=== PATIENT | female | born 1955 | race Caucasian/White ===

== ENCOUNTER 2017-08-02 03:30 | Emergency (ER) | payer MEDICAID, SELFPAY ==
[2017-08-02 03:30] VITALS: BP 120/70; PULSE 70; RESP 20; TEMP 37.2; O2SAT 95; BMI 32.8
--- NOTE | 2017-08-02 03:39 | XR_ITS ---
XR chest 2V HISTORY: ITS.REASON: SOA, COUGH ORDERING PHYSICIAN: Ilir Jeffers MD PATIENT AGE: 62 years COMPARISON: 06/13/2017 FINDINGS: Normal heart size. Bipolar pacemaker is present from left subclavian approach.. The lungs are clear without infiltrates, suspicious nodules, or pleural effusions. No acute bony abnormalities. IMPRESSION: No change with no acute finding
[2017-08-02 04:04] LABS: Basophils # 0.1 K/mm3 (0-0.2); Basophils % 0.9 % (0.1-2.0); Eosinophils # 0.3 K/mm3 (0.0-0.4); Eosinophils % 2.6 % (0.1-12.0); Hematocrit 44.3 % (37.0-47.0); Hemoglobin 14.6 g/dL (12.2-16.2); Lymphocytes # 2.3 K/mm3 (0.7-4.5); Lymphocytes % 24.3 K/mm3 (10-50); Mean Corpuscular HGB Conc 32.9 g/dL (31.8-35.4); Mean Corpuscular Hemoglobin 29.6 pg (27.0-31.2); Mean Platelet Volume 9.5 fl (7.4-10.4); Monocytes # 0.6 K/mm3 (0.1-1.0); Monocytes % 6.2 % (1.7-9.3); Neutrophils # 6.2 K/mm3 (1.8-7.8); Neutrophils % 65.9 % (37.0-80.0); Platelet Count 152 K/mm3 (142-424); Red Blood Count 4.92 M/mm3 (4.20-5.40); Red Cell Distribution Width 13.6 % (11.5-17.5); White Blood Count 9.5 K/mm3 (4.8-10.8)
--- NOTE | 2017-08-02 04:10 | PC.NURSE ---
PATIENT TO XRAY PER WC
[2017-08-02 04:24] LABS: Alanine Aminotransferase 32 U/L (12-78); Albumin Level 3.6 gm/dL (3.4-5.0); Albumin/Globulin Ratio 1.2 (1.1-1.8); Alkaline Phosphatase 113 U/L (46-116); Anion Gap 8.7 mEq/L (5-15); Aspartate Amino Transferase 19 U/L (15-37); Bilirubin,Total 0.2 mg/dL (0.2-1.0); Blood Urea Nitrogen 20 mg/dL (7-18); CKMB Relative Index 0.4 U/L (0-4.0); Calcium 9.2 mg/dL (8.5-10.1); Carbon Dioxide 29 mmol/L (21.0-32.0); Chloride 106 mmol/L (98-107); Creatine Kinase 129 U/L (26-140); Creatine Kinase MB < 0.5 mg/ml (0.0-3.6); Creatinine Clearance Estimated 80 mg/ml (0-300); Creatinine,Serum 1.13 mg/dL (0.55-1.02); Estimated Glomerular Filt Rate 48 ml/min (>60); GFR (African American) 59 ML/MIN (>60); Glucose 152 mg/dL (74-106); Potassium 3.7 mmoL/L (3.5-5.1); Sodium 140 mmol/L (136-145); Total Protein,Serum 6.6 gm/dL (6.4-8.2); Troponin I < 0.02 ng/ml (0.00-0.06)
[2017-08-02 04:28] LABS: Lactic Acid 1.2 mmol/L (0.4-2.0)
--- NOTE | 2017-08-02 05:40 | HMH.EDURI ---
ED Disposition Clinical Impression: Renal insufficiency Acute bronchitis Qualifiers: Bronchitis organism: unspecified organism Qualified Code(s): J20.9 - Acute bronchitis, unspecified Disposition: Home, Self-Care Condition on Discharge: Good Instructions: DI for Cough -- Adult Prescriptions: Benzonatate [Tessalon Perle 100mg Cap] 100 mg PO TID #30 cap levoFLOXacin [Levaquin 500mg tab] 500 mg PO DAILY #7 tab predniSONE [Prednisone 20mg Tab] 20 mg PO DAILY #10 tab Referrals: Ilir Jeffers MD [Primary Care Provider] - Forms: Work/School Release - Critical Care Critical Care Time: No Attestation: On 08/02/17, the high probability of a clinically significant, sudden or life threatening deterioration of the following system(s) required my full and direct attention, intervention and personal management. The time I documented below is in addition to time spent performing reported procedures but includes the following listed in this critical care notation. Medical Decision Making - Medical Records Medical records reviewed: Yes: I reviewed the patient's medical records. Vital Signs: 08/02/17 03:30 08/02/17 06:05 Temperature 98.9 F Temperature Source Oral Pulse Rate [Brachial] 70 70 Respiratory Rate 20 16 Blood Pressure [Right Arm] 120/70 106/59 Blood Pressure Mean [Right Arm] 86 74 Blood Pressure Source [Right Arm] Automatic Cuff Manual Cuff/ Doppler Blood Pressure Position [Right Arm] Sitting Sitting 02 Sat by Pulse Oximetry 95 97 Oxygen Delivery Method Room Air Room Air - Lab Data Lab results reviewed: Yes: I reviewed the patient's lab results. Lab Results 08/02/17 03:50: WBC 9.5, RBC 4.92, Hgb 14.6, Hct 44.3, MCV 90.0, MCH 29.6, MCHC 32.9, RDW 13.6, Plt Count 152, MPV 9.5, Neut % (Auto) 65.9, Lymph % (Auto) 24.3, [place] % (Auto) 6.2, Eos % (Auto) 2.6, Baso % (Auto) 0.9, Neut # (Auto) 6.2, Lymph # (Auto) 2.3, [place] # (Auto) 0.6, Eos # (Auto) 0.3, Baso # (Auto) 0.1 08/02/17 03:50: Sodium 140, Potassium 3.7, Chloride 106, Carbon Dioxide 29, Anion Gap 8.7, BUN 20 H, Creatinine 1.13 H, Estimated Creat Clear 80, Estimated GFR 48 L, Est GFR ( Amer) 59, Glucose 152 H, Calcium 9.2, Total Bilirubin 0.2, AST 19, ALT 32, Alkaline Phosphatase 113, Total Creatine Kinase 129, CK-MB (CK-2) < 0.5, CK-MB (CK-2) Rel Index 0.4, Troponin I < 0.02, Total Protein 6.6, Albumin 3.6, Globulin 3.0, Albumin/Globulin Ratio 1.2 08/02/17 03:50: B-Natriuretic Peptide 23 08/02/17 03:50: Influenza Type A Ag Negative, Influenza Type B Ag Negative 08/02/17 03:50: Lactic Acid 1.2 Result diagrams: 08/02/17 03:50 08/02/17 03:50 Orders (Tests/Meds): ED MEDICATIONS Generic Name Dose Route Start Last Admin Trade Name Mannyq PRN Reason Stop Dose Admin Benzonatate 100 mg 08/02/17 06:15 Tessalon Perles 100mg Capsule PO 09/01/17 06:14 ONCE HAJA Ceftriaxone Sodium 1 gm/ 50 mls @ 100 mls/hr 08/02/17 06:07 Sodium Chloride IV 08/02/17 06:36 ONCE ONE Sodium Chloride 10 ml 08/02/17 04:04 Saline Flush 10ml Syringe IV 09/01/17 04:03 NEEDED PRN Maintain IV Site Discontinued Medications Generic Name Dose Route Start Last Admin Trade Name Mannyq PRN Reason Stop Dose Admin Methylprednisolone Sodium Succinate 125 mg 08/02/17 06:08 Solu-Medrol 125mg/2ml Vial IV 08/02/17 06:09 ONCE ONE Ondansetron HCl 4 mg 08/02/17 03:39 08/02/17 04:00 Zofran 4mg/2ml Vial IV 08/02/17 03:40 4 mg ONCE ONE Administration Sodium Chloride 0 ml 08/02/17 03:39 08/02/17 04:00 Sod Chloride 0.9% 1000ml Bag IV 08/02/17 03:40 1,000 ml BOLUS ONE Administration ORDERS Category Date Time Status Blood Culture Stat Micro 08/02/17 03:50 Received - Radiology Data #1 Image Reviewed: Yes I reviewed the patient's radiology results Preliminary Findings: Normal/NAD - Anibal Inquiry Pt receiving controlled substance: No URI/Sore Throat HPI - Genera
--- NOTE | 2017-08-02 05:58 | ED_ITS ---
ED Disposition Clinical Impression: Renal insufficiency Acute bronchitis Qualifiers: Bronchitis organism: unspecified organism Qualified Code(s): J20.9 - Acute bronchitis, unspecified Disposition: Home, Self-Care Condition on Discharge: Good Instructions: DI for Cough -- Adult Prescriptions: Benzonatate [Tessalon Perle 100mg Cap] 100 mg PO TID #30 cap levoFLOXacin [Levaquin 500mg tab] 500 mg PO DAILY #7 tab predniSONE [Prednisone 20mg Tab] 20 mg PO DAILY #10 tab Referrals: Ilir Jeffers MD [Primary Care Provider] - Forms: Work/School Release - Critical Care Critical Care Time: No Attestation: On 08/02/17, the high probability of a clinically significant, sudden or life threatening deterioration of the following system(s) required my full and direct attention, intervention and personal management. The time I documented below is in addition to time spent performing reported procedures but includes the following listed in this critical care notation. Medical Decision Making - Medical Records Medical records reviewed: Yes: I reviewed the patient's medical records. Vital Signs: 08/02/17 03:30 08/02/17 06:05 Temperature 98.9 F Temperature Source Oral Pulse Rate [Brachial] 70 70 Respiratory Rate 20 16 Blood Pressure [Right Arm] 120/70 106/59 Blood Pressure Mean [Right Arm] 86 74 Blood Pressure Source [Right Arm] Automatic Cuff Manual Cuff/ Doppler Blood Pressure Position [Right Arm] Sitting Sitting 02 Sat by Pulse Oximetry 95 97 Oxygen Delivery Method Room Air Room Air - Lab Data Lab results reviewed: Yes: I reviewed the patient's lab results. Lab Results 08/02/17 03:50: WBC 9.5, RBC 4.92, Hgb 14.6, Hct 44.3, MCV 90.0, MCH 29.6, MCHC 32.9, RDW 13.6, Plt Count 152, MPV 9.5, Neut % (Auto) 65.9, Lymph % (Auto) 24.3 , [place] % (Auto) 6.2, Eos % (Auto) 2.6, Baso % (Auto) 0.9, Neut # (Auto) 6.2, Lymph # (Auto) 2.3, Price # (Auto) 0.6, Eos # (Auto) 0.3, Baso # (Auto) 0.1 08/02/17 03:50: Sodium 140, Potassium 3.7, Chloride 106, Carbon Dioxide 29, Anion Gap 8.7, BUN 20 H, Creatinine 1.13 H, Estimated Creat Clear 80, Estimated GFR 48 L, Est GFR ( Amer) 59, Glucose 152 H, Calcium 9.2, Total Bilirubin 0.2, AST 19, ALT 32, Alkaline Phosphatase 113, Total Creatine Kinase 129, CK-MB (CK-2) < 0.5, CK-MB (CK-2) Rel Index 0.4, Troponin I < 0.02, Total Protein 6.6, Albumin 3.6, Globulin 3.0, Albumin/Globulin Ratio 1.2 08/02/17 03:50: B-Natriuretic Peptide 23 08/02/17 03:50: Influenza Type A Ag Negative, Influenza Type B Ag Negative 08/02/17 03:50: Lactic Acid 1.2 Result diagrams: 08/02/17 03:50 08/02/17 03:50 Orders (Tests/Meds): ED MEDICATIONS Generic Name Dose Route Start Last Admin Trade Name Freq PRN Reason Stop Dose Admin Benzonatate 100 mg 08/02/17 06:15 Tessalon Perles 100mg Capsule PO 09/01/17 06:14 ONCE HAJA Ceftriaxone Sodium 1 gm/ 50 mls @ 100 mls/hr 08/02/17 06:07 Sodium Chloride IV 08/02/17 06:36 ONCE ONE Sodium Chloride 10 ml 08/02/17 04:04 Saline Flush 10ml Syringe IV 09/01/17 04:03 NEEDED PRN Maintain IV Site Discontinued Medications Generic Name Dose Route Start Last Admin Trade Name Freq PRN Reason Stop Dose Admin Methylprednisolone Sodium Succinate 125 mg 08/02/17 06:08 Solu-Medrol 125mg/2ml Vial IV
[2017-08-02 06:05] VITALS: BP 106/59; PULSE 70; RESP 16; O2SAT 97
[2017-08-02 07:21] VITALS: BP 144/69; PULSE 82; RESP 18; O2SAT 98
== END 2017-08-02 07:24 | disposition home or self-care (01) ==
PROVIDERS: Emergency Provider Emergency Medicine; Family Provider Emergency Medicine; PCP Emergency Medicine
DX: J20.9 Acute bronchitis, unspecified (principal); N28.9 Disorder of kidney and ureter, unspecified; Z95.0 Presence of cardiac pacemaker; F17.210 Nicotine dependence, cigarettes, uncomplicated; Z88.0 Allergy status to penicillin; Z88.2 Allergy status to sulfonamides; Z79.82 Long term (current) use of aspirin
CPT/HCPCS: 71046; 80053; 82550; 82553; 83605; 83880; 84484; 85025; 87040; 87275; 87276; 96367; 96374; 96375; 99283; J2405

== ENCOUNTER 2017-08-25 11:51 | Emergency (ER) | payer MEDICAID, SELFPAY ==
[2017-08-25 12:24] VITALS: BP 127/72; PULSE 70; RESP 16; TEMP 36.9; O2SAT 94; BMI 32.8
--- NOTE | 2017-08-25 12:32 | HMH.EDUTC ---
[facility] [place] Disposition Clinical Impression: Upper respiratory infection Qualifiers: URI type: unspecified URI Qualified Code(s): J06.9 - Acute upper respiratory infection, unspecified Disposition: Home, Self-Care Condition on Discharge: Good Instructions: Sore Throat, DI for Cough -- Adult, DI for Fever (Symptom) -- Adult Additional Instructions: Take medication as prescribed Follow up with family doctor If you began to have trouble breathing go straight to ER Return if needed Vaporizer or Humidifier to help with breathing Continue to use Nebulizer as prescribed Prescriptions: Albuterol Sulfate [Albuterol HFA Inhaler] 1 - 2 puffs IH Q4-6H PRN #1 inh PRN Reason: Shortness Of Breath Or Wheezing Azithromycin [Z-Ambrose 250mg Tab] 250 mg PO UD DOSE PK #6 tab Benzonatate [Tessalon Perle 100mg Cap] 100 mg PO TID #18 cap predniSONE [Prednisone 20mg Tab] 20 mg PO BID #10 tab Referrals: Ilir Jeffers MD [Primary Care Provider] - Time of Disposition: 13:32 Medical Decision Making - Medical Records Medical records reviewed: Yes: I reviewed the patient's medical records. Vital Signs: 08/25/17 12:24 Temperature 98.4 F Temperature Source Temporal Artery Scan Pulse Rate [Right Brachial] 70 Respiratory Rate 16 Blood Pressure [Right Arm] 127/72 Blood Pressure Mean [Right Arm] 90 Blood Pressure Source [Right Arm] Automatic Cuff Blood Pressure Position [Right Arm] Sitting 02 Sat by Pulse Oximetry 94 L Oxygen Delivery Method Room Air - Lab Data Lab Results 08/25/17 12:23: Influenza Type A Ag Negative, Influenza Type B Ag Negative Orders (Tests/Meds): ED MEDICATIONS Discontinued Medications Generic Name Dose Route Start Last Admin Trade Name Freq PRN Reason Stop Dose Admin Albuterol/Ipratropium 3 ml 08/25/17 13:05 Duoneb 3ml Neb IH 08/25/17 13:06 ONCE ONE ORDERS Category Date Time Status Chest XR 2 view (NOT portable) [XR chest 2V] Stat Exams 08/25/17 13:02 Taken - Radiology Data #1 Image(s): Chest Image Reviewed: Yes I reviewed the patient's radiology image w/the ED provider Preliminary Findings: No Infiltrates Seen - Anibal Inquiry Pt receiving controlled substance: No Anibal was queried for this patient: No - Reevaluation(s) Time: 13:03 (Patient state that she usually uses a nebulizer machine at home but hers tore up so she needs to have another one. Consulted with ER physican Dr Juarez and agreed on treatment and discharge) [facility] [place] HPI - General Stated complaint: aches,nausea,weak Mode of Arrival: Ambulatory Source of Information: Patient Limitations: No Limitations Description of Symptoms (Recalled from Triage Doc. by RN): C/O flu-like symptons since HEENT Symptoms (Recalled from RN notes): No Resp Symptoms (Recalled from RN notes): Yes (Flu-like symptoms) Skin Symptoms (Recalled from RN notes): No MS Symptoms (Recalled from RN notes): No Functional Status (Recalled from RN notes): N/A - History of Present Illness Provider Complaint: Patient complaining of flu like symptoms for the last 2 days States that she is having body aches, chills, fever and not feeling well State that she has not got any better and has continued to feel worse. State that she wanted to come in and get checked out - Related Data Previous Rx's Medication Instructions Recorded Benzonatate [Tessalon Perle 100mg 100 mg PO TID #30 cap 08/02/17 Cap] levoFLOXacin [Levaquin 500mg 500 mg PO DAILY #7 tab 08/02/17 tab] predniSONE [Prednisone 20mg 20 mg PO DAILY #10 tab 08/02/17 Tab] Albuterol Sulfate [Albuterol HFA 1 - 2 puffs IH Q4-6H PRN #1 inh 08/25/17 Inhaler] Azithromycin [Z-Ambrose 250mg Tab] 250 mg PO UD DOSE PK #6 tab 08/25/17 Benzonatate [Tessalon Perle 100mg 100 mg PO TID #18 cap 08/25/17 Cap] predniSONE [Prednisone 20mg 20 mg PO BID #10 tab 08/25/17 Tab] Allergies Allergy/AdvReac Type Severity Reaction Status Date / Time Iod
[2017-08-25 12:48] LABS: UTC Influenza A Antigen Negative (Negative); UTC Influenza B Antigen Negative (Negative)
--- NOTE | 2017-08-25 13:02 | XR_ITS ---
XR chest 2V HISTORY: Cough and congestion ITS.REASON: congestion ORDERING PHYSICIAN: Key Loco PATIENT AGE: 62 years COMPARISON: 08/02/2017 FINDINGS: The cardiomediastinal silhouette and pulmonary vascularity are within normal limits. Bipolar pacemaker remains in place. There is chronic coarsening of the bronchovascular markings The lungs are clear without infiltrates, suspicious nodules, or pleural effusions. No acute bony abnormalities. IMPRESSION: No change with no acute finding. Pacemaker remains in place. Chronic coarsening of the bronchovascular markings which may be seen with chronic peribronchial inflammatory change
--- NOTE | 2017-08-25 13:21 | PC.NURSE ---
RT at bedside administering DuoNeb at this time.
[2017-08-25 13:56] VITALS: BP 127/72; PULSE 70; RESP 16; TEMP 36.9; O2SAT 94
== END 2017-08-25 13:58 | disposition home or self-care (01) ==
PROVIDERS: Emergency Provider Nurse Practitioner; Family Provider Emergency Medicine; PCP Emergency Medicine
DX: J06.9 Acute upper respiratory infection, unspecified (principal); Z95.0 Presence of cardiac pacemaker; F17.210 Nicotine dependence, cigarettes, uncomplicated
CPT/HCPCS: 71046; 87804; 99202; 99281

== ENCOUNTER 2017-08-26 00:48 | Observation (INO) | payer MEDICAID, SELFPAY ==
[2017-08-26] VITALS (7 sets, daily range): BP systolic 115–132; BP diastolic 54–88; PULSE 70–78; RESP 20–22; TEMP 36.7–36.9; O2SAT 92–97; BMI 32.8; BMI 32.5
--- NOTE | 2017-08-26 01:26 | HMH.EDSOB ---
ED Disposition Clinical Impression: Acute exacerbation of chronic obstructive airways disease Disposition: Admitted as Observation Condition on Discharge: Good Referrals: Ilir Jeffers MD [Primary Care Provider] - - Critical Care Critical Care Time: No Attestation: On 08/26/17, the high probability of a clinically significant, sudden or life threatening deterioration of the following system(s) required my full and direct attention, intervention and personal management. The time I documented below is in addition to time spent performing reported procedures but includes the following listed in this critical care notation. Medical Decision Making - Medical Records Medical records reviewed: Yes: I reviewed the patient's medical records. Vital Signs: 08/26/17 00:50 Temperature 98.5 F Temperature Source Oral Pulse Rate [Right Brachial] 70 Respiratory Rate 20 Blood Pressure [Right Arm] 132/88 Blood Pressure Mean [Right Arm] 102 Blood Pressure Source [Right Arm] Automatic Cuff Blood Pressure Position [Right Arm] Sitting 02 Sat by Pulse Oximetry 92 L Oxygen Delivery Method Room Air - Lab Data Lab results reviewed: Yes: I reviewed the patient's lab results. Lab Results 08/26/17 01:20: WBC 10.9 H, RBC 5.04, Hgb 14.7, Hct 45.2, MCV 89.7, MCH 29.3, MCHC 32.6, RDW 13.5, Plt Count 175, MPV 9.6, Neut % (Auto) 83.8 H, Lymph % (Auto) 12.4, [place] % (Auto) 3.5, Eos % (Auto) 0.1, Baso % (Auto) 0.2, Neut # (Auto) 9.1 H, Lymph # (Auto) 1.3, [place] # (Auto) 0.4, Eos # (Auto) 0.0, Baso # (Auto) 0.0 08/26/17 01:20: Sodium 141, Potassium 4.2, Chloride 108 H, Carbon Dioxide 24, Anion Gap 13.2, BUN 16, Creatinine 1.03 H, Estimated Creat Clear 88, Estimated GFR 54 L, Est GFR ( Amer) 65, Glucose 169 H, Calcium 9.0, Total Bilirubin 0.6, AST 21, ALT 40, Alkaline Phosphatase 97, Total Creatine Kinase 96, CK-MB (CK-2) < 0.5, CK-MB (CK-2) Rel Index 0.5, Troponin I < 0.02, Total Protein 6.9, Albumin 3.6, Globulin 3.3 H, Albumin/Globulin Ratio 1.1 08/26/17 01:20: Lactic Acid 2.1 H Result diagrams: 08/26/17 01:20 08/26/17 01:20 Orders (Tests/Meds): ORDERS Category Date Time Status CXR --portable [XR chest portable] Stat Exams 08/26/17 01:31 Taken Diarrhea Panel, PCR Stat Lab 08/26/17 01:31 Ordered Blood Culture Stat Micro 08/26/17 01:20 Received EKG Request [ECG Request by /Davis] Stat Y 08/26/17 01:30 Ordered - Radiology Data #1 Image(s): Chest Image Reviewed: Yes I reviewed the patient's radiology image Preliminary Findings: Abnormal - ECG Data Tracing #1 I reviewed this ECG and interpreted as documented below: Ischemic changes: non-specific ST-T wave changes - Anibal Inquiry Pt receiving controlled substance: No Resp/SOB HPI - General Chief Complaint: Shortness of Breath/Dyspnea Stated Complaint: SOA Time Seen by Provider: 08/26/17 01:27 Mode of Arrival: EMS Source of Information: Patient, EMS, Medical Record Limitations: No Limitations Description of Symptoms (Recalled from ER Triage Doc. 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 and was seen at [facility] and has had gi sx with diarrhea and dec po intake Complaint: shortness of breath, cough Onset (ago): day(s) Severity: moderate Known history of: COPD Treatment prior to arrival: bronchodilator - Related Data Home oxygen amount: 2 liters Previous Rx's Medication Instructions Recorded Benzonatate [Tessalon Perle 100mg 100 mg PO TID #30 cap 08/02/17 Cap] levoFLOXacin [Levaquin 500mg 500 mg PO DAILY #7 tab 08/02/17 tab] predniSONE [Prednisone 20mg 20 mg PO DAILY #10 tab 08/02/17 Tab] Albuterol Sulfate [Albuterol HFA 1 - 2 puffs IH Q4-6H PRN #1 inh 08/25/17 Inhaler] Azithromycin [Z-Ambrose 250mg Tab] 250 mg PO UD DOSE PK #6 tab 08/25/17 Benzonatate [Tessalon Perle 100mg 100 mg PO TID #18 cap 08/25/17 Cap] predniSONE [Prednisone 20mg 2
--- NOTE | 2017-08-26 01:31 | XR_ITS ---
XR chest portable HISTORY: Shortness of air with congestion ITS.REASON: sob ORDERING PHYSICIAN: Ilir Jeffers MD PATIENT AGE: 62 years COMPARISON: 08/25/2017 FINDINGS: Cardiac pacemaker device remains in place. New area of increased density is present in the left lower lung zone in the retrocardiac area and adjacent to the heart consistent with an area of atelectasis and/or infiltrate. There is COPD with chronic change. No evidence of CHF. IMPRESSION: Interval development of atelectasis and/or infiltrate in the left lower lung zone
[2017-08-26 01:37] LABS: Basophils % 0.2 % (0.1-2.0); Eosinophils % 0.1 % (0.1-12.0); Hematocrit 45.2 % (37.0-47.0); Hemoglobin 14.7 g/dL (12.2-16.2); Lymphocytes # 1.3 K/mm3 (0.7-4.5); Lymphocytes % 12.4 K/mm3 (10-50); Mean Corpuscular HGB Conc 32.6 g/dL (31.8-35.4); Mean Corpuscular Hemoglobin 29.3 pg (27.0-31.2); Mean Corpuscular Volume 89.7 fl (81-99); Mean Platelet Volume 9.6 fl (7.4-10.4); Monocytes # 0.4 K/mm3 (0.1-1.0); Monocytes % 3.5 % (1.7-9.3); Neutrophils # 9.1 K/mm3 (1.8-7.8); Neutrophils % 83.8 % (37.0-80.0); Platelet Count 175 K/mm3 (142-424); Red Blood Count 5.04 M/mm3 (4.20-5.40); Red Cell Distribution Width 13.5 % (11.5-17.5); White Blood Count 10.9 K/mm3 (4.8-10.8)
[2017-08-26 01:55] LABS: Lactic Acid 2.1 mmol/L (0.4-2.0)
[2017-08-26 02:11] LABS: Alanine Aminotransferase 40 U/L (12-78); Albumin Level 3.6 gm/dL (3.4-5.0); Albumin/Globulin Ratio 1.1 (1.1-1.8); Alkaline Phosphatase 97 U/L (46-116); Anion Gap 13.2 mEq/L (5-15); Aspartate Amino Transferase 21 U/L (15-37); Bilirubin,Total 0.6 mg/dL (0.2-1.0); Blood Urea Nitrogen 16 mg/dL (7-18); CKMB Relative Index 0.5 U/L (0-4.0); Carbon Dioxide 24 mmol/L (21.0-32.0); Chloride 108 mmol/L (98-107); Creatine Kinase 96 U/L (26-192); Creatine Kinase MB < 0.5 mg/ml (0.0-3.6); Creatinine Clearance Estimated 88 mL/min (0-300); Creatinine,Serum 1.03 mg/dL (0.55-1.02); Estimated Glomerular Filt Rate 54 ml/min (>60); GFR (African American) 65 ML/MIN (>60); Globulin 3.3 gm/dl (1.3-3.2); Glucose 169 mg/dL (74-106); Potassium 4.2 mmoL/L (3.5-5.1); Sodium 141 mmol/L (136-145); Total Protein,Serum 6.9 gm/dL (6.4-8.2); Troponin I < 0.02 ng/ml (0.00-0.06)
[2017-08-26 04:14] LABS: Magnesium 1.7 mg/dL (1.4-2.2)
[2017-08-26 04:50] LABS: Reflex Lactic Add Lactic Reflex
[2017-08-26 05:09] LABS: Lactic Acid Follow Up (RFLX 1) 1.9 (0.4-2.0)
--- NOTE | 2017-08-26 06:08 | PC.NURSE ---
PT NEW ADMIT AROUND 4AM. ALERT/ORIENTED TIMES 3. PT WITH DRY NONPRODUCTIVE COUGH. NO COMPLAINTS OF PAIN. ORIENTED TO ROOM AND CALL LONG. ON 2L PER NC. NO SOB REPORTED.
--- NOTE | 2017-08-26 09:03 | HMH.HP ---
*Admission Date: 08/26/17 *Chief complaint: sob *History of present illness: pt with progressive sob and chest pain with failure to respond to op treatment - pt seen in the ed with diff with breathing and sob - she had no hemoptysis but needed more o2 support-pt was admitted with orders [facility] History I have reviewed the patient's past medical history: Yes Medical History: Reports:: Atherosclerotic Heart Disease, Hyperlipidemia, Hypertension, Internal Pacemaker Denies:: Cancer, Diabetes Mellitus Type 1, Diabetes Mellitus Type 2, MRSA Other Medical History: Reports: Arthritis, Cataracts (surgery to repair) Laterality Cases: Right: Arthroscopy Knee Other Surgeries: Yes: Hysterectomy-Total, Pacemaker, Other (gallbladder, cyst removed form wrist) Amputation: No Fractures: No - *Social History Educational Level: Attended Grade School Smoking Status: Current every day smoker Tobacco Type: cigarettes # Packs/Day (cigarettes): 10 #Yrs smoked (if former smoker): 35 Alcohol Intake: never Occupational Status: disabled Housing: apartment Household Members: none - Psychiatric History Expresses thoughts of harming self/others: None Suicide Plan Description: No Plan *Family Hx:: Cancer, Coronary Artery Disease, Diabetes, Hyperlipidemia, Hypertension Review of Systems - Review of Systems Review of systems:: pertinent systems reviewed and negative unless documented below - Constitutional Reports malaise, Denies fever(s) - Eyes Denies change in vision - ENT Denies sore throat - *Cardiovascular Reports chest pain, Reports shortness of breath when lying down - *Respiratory Reports cough, Reports shortness of breath with activity, Reports pain on inspiration, Denies coughing up blood - *Gastrointestinal Denies abdominal pain - *Musculoskeletal Reports joint pain, Denies joint swelling - Integumentary/Breasts Denies rash - *Neurologic Reports dizziness, Denies seizure-like activity, Denies seizure-like activity - Psychiatric Reports anxiety Meds Home Medications Medication Instructions Recorded Confirmed Type Aspirin [Aspir 81] 81 mg PO DAILY 08/26/17 08/26/17 History Atorvastatin Calcium [Atorvastatin 80 mg PO HS 08/26/17 08/26/17 History 80mg Tab] Budesonide/Formoterol Fumarate 6 gm IH DAILY 08/26/17 08/26/17 History [Symbicort 160-4.5 Mcg Inhaler] Furosemide [Lasix 40mg tab] 40 mg PO DAILY 08/26/17 08/26/17 History Gabapentin [Gabapentin 300mg Cap] 600 mg PO TID 08/26/17 08/26/17 History Metoprolol Tartrate [Lopressor 50 mg PO BID 08/26/17 08/26/17 History 50mg tablet] Montelukast Sodium [Montelukast 10 mg PO HS 08/26/17 08/26/17 History 10mg Tab] Omeprazole [Omeprazole 40mg 40 mg PO DAILY 08/26/17 08/26/17 History Capsule] Ropinirole HCl [Requip] 2 mg PO HS 08/26/17 08/26/17 History Spironolactone [Spironolactone 50 mg PO HS 08/26/17 08/26/17 History 50mg Tab] Tizanidine HCl [Zanaflex] 4 mg PO HS 08/26/17 08/26/17 History Allergies Allergy/AdvReac Type Severity Reaction Status Date / Time Iodinated Contrast Media - Allergy Intermediate I-RASH Verified 08/02/17 03:41 Oral and [Iodinated Contrast Media - IV Dye] Penicillins [PENICILLINS] Allergy Unknown I-RASH Verified 08/02/17 03:41 Sulfa (Sulfonamide Allergy Unknown NA-NAUSEA/V Verified 08/02/17 03:41 Antibiotics) OMITING [SULFA (SULFONAMIDE ANTIBIOTICS)] Exam Vital signs and Labs for Last 24 Hours: Temp Pulse Resp BP Pulse Ox 98.2 F 70 20 115/64 94 L 08/26/17 07:52 08/26/17 07:52 08/26/17 07:52 08/26/17 07:52 08/26/17 07:52 Laboratory Results - last 24 hr 08/26/17 04:45: Lactic Acid Fup @ 4Hr 1.9 I & O for Last 24 hours: Intake & Output 08/23/17 08/24/17 08/25/17 08/26/17 11:59 11:59 11:59 11:59 Intake Total 146 / 146 Balance 146 / 146 Weight 220 lb 10.923 oz - Constitutional no acute distress - *Routine HEENT Exam Head: Presen
--- NOTE | 2017-08-26 09:07 | P.HP_ITS ---
*Admission Date: 08/26/17 *Chief complaint: sob *History of present illness: pt with progressive sob and chest pain with failure to respond to op treatment - pt seen in the ed with diff with breathing and sob - she had no hemoptysis but needed more o2 support-pt was admitted with orders [facility] History I have reviewed the patient's past medical history: Yes Medical History: Reports:: Atherosclerotic Heart Disease, Hyperlipidemia, Hypertension, Internal Pacemaker Denies:: Cancer, Diabetes Mellitus Type 1, Diabetes Mellitus Type 2, MRSA Other Medical History: Reports: Arthritis, Cataracts (surgery to repair) Laterality Cases: Right: Arthroscopy Knee Other Surgeries: Yes: Hysterectomy-Total, Pacemaker, Other (gallbladder, cyst removed form wrist) Amputation: No Fractures: No - *Social History Educational Level: Attended Grade School Smoking Status: Current every day smoker Tobacco Type: cigarettes # Packs/Day (cigarettes): 10 #Yrs smoked (if former smoker): 35 Alcohol Intake: never Occupational Status: disabled Housing: apartment Household Members: none - Psychiatric History Expresses thoughts of harming self/others: None Suicide Plan Description: No Plan *Family Hx:: Cancer, Coronary Artery Disease, Diabetes, Hyperlipidemia, Hypertension Review of Systems - Review of Systems Review of systems:: pertinent systems reviewed and negative unless documented below - Constitutional Reports malaise, Denies fever(s) - Eyes Denies change in vision - ENT Denies sore throat - *Cardiovascular Reports chest pain, Reports shortness of breath when lying down - *Respiratory Reports cough, Reports shortness of breath with activity, Reports pain on inspiration, Denies coughing up blood - *Gastrointestinal Denies abdominal pain - *Musculoskeletal Reports joint pain, Denies joint swelling - Integumentary/Breasts Denies rash - *Neurologic Reports dizziness, Denies seizure-like activity, Denies seizure-like activity - Psychiatric Reports anxiety Meds Home Medications Medication Instructions Recorded Confirmed Type Aspirin [Aspir 81] 81 mg PO DAILY 08/26/17 08/26/17 History Atorvastatin Calcium [Atorvastatin 80 mg PO HS 08/26/17 08/26/17 History 80mg Tab] Budesonide/Formoterol Fumarate 6 gm IH DAILY 08/26/17 08/26/17 History [Symbicort 160-4.5 Mcg Inhaler] Furosemide [Lasix 40mg tab] 40 mg PO DAILY 08/26/17 08/26/17 History Gabapentin [Gabapentin 300mg Cap] 600 mg PO TID 08/26/17 08/26/17 History Metoprolol Tartrate [Lopressor 50 mg PO BID 08/26/17 08/26/17 History 50mg tablet] Montelukast Sodium [Montelukast 10 mg PO HS 08/26/17 08/26/17 History 10mg Tab] Omeprazole [Omeprazole 40mg 40 mg PO DAILY 08/26/17 08/26/17 History Capsule] Ropinirole HCl [Requip] 2 mg PO HS 08/26/17 08/26/17 History Spironolactone [Spironolactone 50 mg PO HS 08/26/17 08/26/17 History 50mg Tab] Tizanidine HCl [Zanaflex] 4 mg PO HS 08/26/17 08/26/17 History Allergies Allergy/AdvReac Type Severity Reaction Status Date / Time Iodinated Contrast Media - Allergy Intermediate I-RASH Verified 08/02/17 03:41 Oral and [Iodinated Contrast Media - IV Dye] Penicillins [PENICILLINS] Allergy Unknown I-RASH Verified 08/02/17 03:41 Sulfa (Sulfonamide Allergy Unknown NA-NAUSEA/V Verified 08/02/17 03:41 Antibiotics
--- NOTE | 2017-08-26 10:51 | HMH.PHAVTE ---
[facility] Pharmacy VTE Monitoring - Patient Demographics Admission date: 08/26/17 Report Date: 08/26/17 Time: 10:51 Allergies/Adverse Reactions: Patient Allergies Iodinated Contrast Media - Oral and [Iodinated Contrast Media - IV Dye] Allergy (Intermediate, Verified 08/02/17 03:41) I-RASH Penicillins [PENICILLINS] Allergy (Unknown, Verified 08/02/17 03:41) I-RASH Sulfa (Sulfonamide Antibiotics) [SULFA (SULFONAMIDE ANTIBIOTICS)] Allergy (Unknown, Verified 08/02/17 03:41) NA-NAUSEA/VOMITING Height: 1.75 m Weight: 100.1 kg Patient Problems: Current Active Problems Acute exacerbation of chronic obstructive airways disease (Acute) - VTE Risk Labs: VTE Related Lab Results Hgb 14.7 g/dL (12.2-16.2) 08/26/17 01:20 Hct 45.2 % (37.0-47.0) 08/26/17 01:20 Plt Count 175 K/mm3 (142-424) 08/26/17 01:20 BUN 16 mg/dL (7-18) 08/26/17 01:20 Creatinine 1.03 mg/dL (0.55-1.02) H 08/26/17 01:20 Estimated Creat Clear 88 mL/min (0-300) 08/26/17 01:20 VTE Score: 5 VTE Risk Level: Low Risk - Prophylaxis Types of VTE Prophylaxis: TEDS Thigh High (KENDRICK HOSE ORDERED)
--- NOTE | 2017-08-26 15:07 | PC.NURSE ---
PT IS RESTING IN BED, HAS BEEN OUT OF THE ROOM SEVERAL TIMES AND HAS AMBULATED SHORT DISTANCES IN THE CISSE W/O O2, PT HAS COMPLAINED OF SOME DISCOMFORT IN HER BLE. PT HAS TOLERATED KENDRICK HOSE. LUNG SOUNDS HAVE SCATTERED WHEEZES, BOWEL SOUNDS NORMAL. PT IS AWARE WE NEED A STOOL FOR A DIARRHEA PANEL BUT HAS NOT HAD A BOWEL MOVEMENT YET. WILL CONTINUE TO MONITOR.
--- NOTE | 2017-08-26 21:06 | PC.NURSE ---
pt had oxygen off at this time
--- NOTE | 2017-08-26 22:25 | PC.NURSE ---
pt has taken philip hose off for the time being
[2017-08-27 04:04] VITALS: BP 133/67; PULSE 69; RESP 18; TEMP 36.4; O2SAT 98
--- NOTE | 2017-08-27 05:08 | PC.NURSE ---
PT HAS SLEPT. NO COMPLAINTS. WEARING OXYGEN AT 2L NEEDED. CONTINUES TO HAVE WHEEZING THROUGHOUT.
--- NOTE | 2017-08-27 05:26 | PC.NURSE ---
philip hose remain off at this time
[2017-08-27 05:55] VITALS: PULSE 73; PULSE 74; O2SAT 98
[2017-08-27 07:20] VITALS: BP 109/59; PULSE 70; RESP 20; TEMP 36.9; O2SAT 95
[2017-08-27 08:00] VITALS: O2SAT 95
--- NOTE | 2017-08-27 10:15 | SW/DCPLANNER ---
RECEIVED REFERRAL FOR THIS PATIENT FOR A NEBULIZER: I SENT ORDERS AND PATIENT INFORMATION TO [facility] FOR THE NEUBLIZER TO BE DELIVERED TO THE PATIENTS HOME TODAY... PATIENT WILL DISCHARGE LATER THIS MORNING:
[2017-08-27 11:12] VITALS: PULSE 70; PULSE 74
--- NOTE | 2017-08-27 13:22 | HMH.DCSUM ---
General - General Admission date: 08/26/17 Discharge date: 08/27/17 HPI HPI: pt with progressive sob and chest pain with failure to respond to op treatment - pt seen in the ed with diff with breathing and sob - she had no hemoptysis but needed more o2 support-pt was admitted with orders Objective Vital signs: Temp Pulse Resp BP Pulse Ox 98.4 F 74 20 109/59 95 08/27/17 07:20 08/27/17 11:12 08/27/17 07:20 08/27/17 07:20 08/27/17 08:00 no acute distress - *Routine HEENT Exam Head: Present: normocephalic Eye: Present: EOMI, PERRL ENT: Present: mucous membranes moist - *Routine Neck Exam Present: supple, full ROM - *Routine Respiratory Exam Present: wheezes. Absent: accessory muscle use - *Routine Cardiovascular Exam Present: RRR. Absent: murmur - *Routine Abdominal Exam Present: soft - *Routine Extremities Exam Present: full ROM, normal capillary refill. Absent: clubbing - Routine Back/Spine/Pelvis Exam Back/Spine: Present: full ROM, CVA tenderness - *Routine Skin Exam Present: intact - *Routine Neurological Exam Present: alert, oriented X3 - Routine Psychiatric Exam Present: normal affect, normal thought process Hospital Course Hospital Course: chest x ray:MPRESSION: Interval development of atelectasis and/or infiltrate in the left lower lung zone Patient states she feels better today. Will discharge home follow up in the office in 1 week continue Zithromax that she got prior to admission patient will need nebulizer for wheezing related to her COPD. DS: Diagnosis - Discharge Diagnosis (1) Acute exacerbation of chronic obstructive airways disease Status: Acute Meds Home Medications Medication Instructions Recorded Confirmed Type Aspirin [Aspir 81] 81 mg PO DAILY 08/26/17 08/26/17 History Atorvastatin Calcium [Atorvastatin 80 mg PO HS 08/26/17 08/26/17 History 80mg Tab] Budesonide/Formoterol Fumarate 2 puffs IH DAILY 08/26/17 08/26/17 History [Symbicort 160-4.5 Mcg Inhaler] Furosemide [Lasix 40mg tab] 40 mg PO DAILY 08/26/17 08/26/17 History Gabapentin [Gabapentin 300mg Cap] 600 mg PO TID 08/26/17 08/26/17 History Losartan Potassium 50 mg PO DAILY 08/26/17 08/26/17 History Metoprolol Tartrate [Lopressor 50 mg PO BID 08/26/17 08/26/17 History 50mg tablet] Montelukast Sodium [Montelukast 10 mg PO HS 08/26/17 08/26/17 History 10mg Tab] Omeprazole [Omeprazole 40mg 40 mg PO DAILY 08/26/17 08/26/17 History Capsule] Ropinirole HCl [Requip] 2 mg PO HS 08/26/17 08/26/17 History Spironolactone [Spironolactone 50 mg PO HS 08/26/17 08/26/17 History 50mg Tab] Tizanidine HCl [Zanaflex] 4 mg PO HS 08/26/17 08/26/17 History buPROPion HCl [Bupropion HCl Sr] 150 mg PO BID 08/26/17 08/26/17 History Allergies Allergy/AdvReac Type Severity Reaction Status Date / Time Iodinated Contrast Media - Allergy Intermediate I-RASH Verified 08/02/17 03:41 Oral and [Iodinated Contrast Media - IV Dye] Penicillins [PENICILLINS] Allergy Unknown I-RASH Verified 08/02/17 03:41 Sulfa (Sulfonamide Allergy Unknown NA-NAUSEA/V Verified 08/02/17 03:41 Antibiotics) OMITING [SULFA (SULFONAMIDE ANTIBIOTICS)] Discharge Plan - Patient Discharge Instructions ACTIVITY: Continue current activity DIET: continue same diet Additional Instructions: Nebulizer twice daily as needed for shortness of breath Follow-up with primary care this week Patient Instructions: Chronic Obstructive Pulmonary Disease, DI for Chronic Obstructive Pulmonary Disease, DI for Acute Bronchitis - Follow up Plan Follow up with: Ilir Jeffers MD [Primary Care Provider] - 1 week Disposition: Home, Self-Fpc Medications: Home Medications Medication Instructions Recorded Confirmed Type Aspirin [Aspir 81] 81 mg PO DAILY 08/26/17 08/26/17 History Atorvastatin Calcium [Atorvastatin 80 mg PO HS 08/26/17 08/26/17 History 80mg Tab] Bu
== END 2017-08-27 14:25 | disposition home or self-care (01) ==
LOC: ER 03:22 → 2ND 03:26
PROVIDERS: Admitting Provider Emergency Medicine; Emergency Provider Emergency Medicine; Family Provider Emergency Medicine; PCP Emergency Medicine; Visit Provider Emergency Medicine
DX: J44.1 Chronic obstructive pulmonary disease with (acute) exacerbation (principal); F17.210 Nicotine dependence, cigarettes, uncomplicated; I25.10 Atherosclerotic heart disease of native coronary artery without angina pectoris; I10 Essential (primary) hypertension; E78.5 Hyperlipidemia, unspecified; Z90.710 Acquired absence of both cervix and uterus; Z80.9 Family history of malignant neoplasm, unspecified; Z82.49 Family history of ischemic heart disease and other diseases of the circulatory system; Z83.3 Family history of diabetes mellitus; Z83.49 Family history of other endocrine, nutritional and metabolic diseases; Z79.82 Long term (current) use of aspirin; Z79.899 Other long term (current) drug therapy; Z88.0 Allergy status to penicillin; Z88.2 Allergy status to sulfonamides; Z91.041 Radiographic dye allergy status; Z95.0 Presence of cardiac pacemaker
CPT/HCPCS: 36415; 71045; 80053; 82550; 82553; 83605; 83735; 84484; 85025; 87040; 87070; 87205; 93005; 94640; 94761; 99282; G0378; J0456

== ENCOUNTER 2017-09-14 15:33 | Emergency (ER) | payer MEDICAID, SELFPAY ==
[2017-09-14 15:38] VITALS: BP 161/102; PULSE 74; RESP 24; TEMP 36.8; O2SAT 96; BMI 33.3
--- NOTE | 2017-09-14 15:52 | XR_ITS ---
XR chest 2V HISTORY: ITS.REASON: cough ORDERING PHYSICIAN: Altaf Paulson MD PATIENT AGE: 62 years COMPARISON: 08/26/2017 FINDINGS: Cardiac pacemaker device remains in place. Normal heart size. No lobar consolidation or collapse. Mild degenerative changes are present in the thoracic spine. IMPRESSION: Left lower lobe atelectasis has improved. No acute finding
[2017-09-14 16:03] VITALS: PULSE 78; PULSE 86
[2017-09-14 16:11] LABS: Basophils # 0.1 K/mm3 (0-0.2); Basophils % 0.7 % (0.1-2.0); Eosinophils # 0.2 K/mm3 (0.0-0.4); Eosinophils % 2.2 % (0.1-12.0); Hematocrit 43.5 % (37.0-47.0); Hemoglobin 14.3 g/dL (12.2-16.2); Lymphocytes # 1.7 K/mm3 (0.7-4.5); Lymphocytes % 16.1 K/mm3 (10-50); Mean Corpuscular HGB Conc 32.8 g/dL (31.8-35.4); Mean Corpuscular Hemoglobin 29.4 pg (27.0-31.2); Mean Corpuscular Volume 89.7 fl (81-99); Mean Platelet Volume 9.9 fl (7.4-10.4); Monocytes # 0.7 K/mm3 (0.1-1.0); Monocytes % 6.5 % (1.7-9.3); Neutrophils # 7.8 K/mm3 (1.8-7.8); Neutrophils % 74.4 % (37.0-80.0); Platelet Count 154 K/mm3 (142-424); Red Blood Count 4.85 M/mm3 (4.20-5.40); Red Cell Distribution Width 13.5 % (11.5-17.5); White Blood Count 10.5 K/mm3 (4.8-10.8)
[2017-09-14 16:33] LABS: Alanine Aminotransferase 42 U/L (12-78); Albumin Level 3.6 gm/dL (3.4-5.0); Albumin/Globulin Ratio 1.1 (1.1-1.8); Alkaline Phosphatase 106 U/L (46-116); Anion Gap 10.8 mEq/L (5-15); Aspartate Amino Transferase 21 U/L (15-37); Bilirubin,Total 0.5 mg/dL (0.2-1.0); Blood Urea Nitrogen 12 mg/dL (7-18); Calcium 8.9 mg/dL (8.5-10.1); Carbon Dioxide 28 mmol/L (21.0-32.0); Chloride 105 mmol/L (98-107); Creatine Kinase 109 U/L (26-192); Creatinine Clearance Estimated 81 mL/min (0-300); Creatinine,Serum 1.14 mg/dL (0.55-1.02); Estimated Glomerular Filt Rate 48 ml/min (>60); GFR (African American) 58 ML/MIN (>60); Globulin 3.2 gm/dl (1.3-3.2); Glucose 144 mg/dL (74-106); Potassium 3.8 mmoL/L (3.5-5.1); Sodium 140 mmol/L (136-145); Total Protein,Serum 6.8 gm/dL (6.4-8.2); Troponin I < 0.02 ng/ml (0.00-0.06)
[2017-09-14 16:42] LABS: CKMB Relative Index 0.5 U/L (0-4.0); Creatine Kinase MB < 0.5 mg/ml (0.0-3.6)
--- NOTE | 2017-09-14 17:37 | HMH.EDGENADL ---
ED Disposition Clinical Impression: COPD exacerbation, Acute exacerbation of chronic obstructive airways disease Disposition: Home, Self-Care Condition on Discharge: Fair Instructions: DI for Chronic Obstructive Pulmonary Disease Prescriptions: levoFLOXacin [Levaquin 500mg tab] 500 mg PO DAILY #10 tab predniSONE [Prednisone 5mg Tab Dose-Pack] 5 mg PO UD DOSE PK #39 pack Referrals: Ilir Jeffers MD [Primary Care Provider] - Time of Disposition: 17:47 - Critical Care Critical Care Time: No Attestation: On 09/14/17, the high probability of a clinically significant, sudden or life threatening deterioration of the following system(s) required my full and direct attention, intervention and personal management. The time I documented below is in addition to time spent performing reported procedures but includes the following listed in this critical care notation. Medical Decision Making - Medical Records Medical records reviewed: Yes: I reviewed the patient's medical records. Vital Signs: 09/14/17 15:38 09/14/17 16:03 Temperature 98.3 F Temperature Source Oral Pulse Rate 78 Pulse Rate [Right Brachial] 74 Respiratory Rate 24 Blood Pressure [Right Arm] 161/102 Blood Pressure Mean [Right Arm] 121 Blood Pressure Source [Right Arm] Automatic Cuff Blood Pressure Position [Right Arm] Sitting 02 Sat by Pulse Oximetry 96 Oxygen Delivery Method Room Air - Lab Data Lab results reviewed: Yes: I reviewed the patient's lab results. Lab Results 09/14/17 15:45: WBC 10.5, RBC 4.85, Hgb 14.3, Hct 43.5, MCV 89.7, MCH 29.4, MCHC 32.8, RDW 13.5, Plt Count 154, MPV 9.9, Neut % (Auto) 74.4, Lymph % (Auto) 16.1, [place] % (Auto) 6.5, Eos % (Auto) 2.2, Baso % (Auto) 0.7, Neut # (Auto) 7.8, Lymph # (Auto) 1.7, [place] # (Auto) 0.7, Eos # (Auto) 0.2, Baso # (Auto) 0.1 09/14/17 15:45: Sodium 140, Potassium 3.8, Chloride 105, Carbon Dioxide 28, Anion Gap 10.8, BUN 12, Creatinine 1.14 H, Estimated Creat Clear 81, Estimated GFR 48 L, Est GFR ( Amer) 58 L, Glucose 144 H, Calcium 8.9, Total Bilirubin 0.5, AST 21, ALT 42, Alkaline Phosphatase 106, Total Creatine Kinase 109, CK-MB (CK-2) < 0.5, CK-MB (CK-2) Rel Index 0.5, Troponin I < 0.02, Total Protein 6.8, Albumin 3.6, Globulin 3.2, Albumin/Globulin Ratio 1.1 09/14/17 15:45: B-Natriuretic Peptide 12 09/14/17 15:46: Influenza Type A Ag Negative, Influenza Type B Ag Negative Result diagrams: 09/14/17 15:45 09/14/17 15:45 Orders (Tests/Meds): ED MEDICATIONS Discontinued Medications Generic Name Dose Route Start Last Admin Trade Name Freq PRN Reason Stop Dose Admin Albuterol Sulfate 2.5 mg 09/14/17 16:00 09/14/17 16:01 Albuterol 0.083% 2.5mg/3ml Neb IH 09/14/17 16:01 2.5 mg ONCE ONE Administration - Radiology Data #1 Image(s): Chest Preliminary Findings: Normal/NAD - Anibal Inquiry Pt receiving controlled substance: No Anibal was queried for this patient: No General Adult HPI - General Chief complaint: Shortness of Breath/Dyspnea Stated complaint: sob Time Seen by Provider: 09/14/17 17:38 Mode of Arrival: Family Vehicle Limitations: No Limitations Description of Symptoms (Recalled from ER Triage Doc. by RN): 2 days of copd exacerbation - History of Present Illness HPI narrative: History of COPD with inhalers, nebs andhome O2 but worse over thepast 3 to4 days with increasing SOA, : fever and [employer] cough and achy all over Onset (ago): day(s) Location: chest Severity: moderate Severity scale (1-10): 5 - Related Data Home Medications Medication Instructions Recorded Confirmed Aspirin [Aspir 81] 81 mg PO DAILY 08/26/17 09/14/17 Atorvastatin Calcium [Atorvastatin 80 mg PO HS 08/26/17 09/14/17 80mg Tab] Budesonide/Formoterol Fumarate 2 puffs IH DAILY 08/26/17 09/14/17 [Symbicort 160-4.5 Mcg Inhaler] Furosemide [Lasix 40mg tablet] 40 mg PO DAILY 08/26/17 09/14/17 Losartan Potassium 50 mg PO DAILY 08/26/17 02
--- NOTE | 2017-09-14 17:40 | ED_ITS ---
ED Disposition Clinical Impression: COPD exacerbation, Acute exacerbation of chronic obstructive airways disease Disposition: Home, Self-Care Condition on Discharge: Fair Instructions: DI for Chronic Obstructive Pulmonary Disease Prescriptions: levoFLOXacin [Levaquin 500mg tab] 500 mg PO DAILY #10 tab predniSONE [Prednisone 5mg Tab Dose-Pack] 5 mg PO UD DOSE PK #39 pack Referrals: Ilir Jeffers MD [Primary Care Provider] - Time of Disposition: 17:47 - Critical Care Critical Care Time: No Attestation: On 09/14/17, the high probability of a clinically significant, sudden or life threatening deterioration of the following system(s) required my full and direct attention, intervention and personal management. The time I documented below is in addition to time spent performing reported procedures but includes the following listed in this critical care notation. Medical Decision Making - Medical Records Medical records reviewed: Yes: I reviewed the patient's medical records. Vital Signs: 09/14/17 15:38 09/14/17 16:03 Temperature 98.3 F Temperature Source Oral Pulse Rate 78 Pulse Rate [Right Brachial] 74 Respiratory Rate 24 Blood Pressure [Right Arm] 161/102 Blood Pressure Mean [Right Arm] 121 Blood Pressure Source [Right Arm] Automatic Cuff Blood Pressure Position [Right Arm] Sitting 02 Sat by Pulse Oximetry 96 Oxygen Delivery Method Room Air - Lab Data Lab results reviewed: Yes: I reviewed the patient's lab results. Lab Results 09/14/17 15:45: WBC 10.5, RBC 4.85, Hgb 14.3, Hct 43.5, MCV 89.7, MCH 29.4, MCHC 32.8, RDW 13.5, Plt Count 154, MPV 9.9, Neut % (Auto) 74.4, Lymph % (Auto) 16.1, [place] % (Auto) 6.5, Eos % (Auto) 2.2, Baso % (Auto) 0.7, Neut # (Auto) 7.8 , Lymph # (Auto) 1.7, [place] # (Auto) 0.7, Eos # (Auto) 0.2, Baso # (Auto) 0.1 09/14/17 15:45: Sodium 140, Potassium 3.8, Chloride 105, Carbon Dioxide 28, Anion Gap 10.8, BUN 12, Creatinine 1.14 H, Estimated Creat Clear 81, Estimated GFR 48 L, Est GFR ( Amer) 58 L, Glucose 144 H, Calcium 8.9, Total Bilirubin 0.5, AST 21, ALT 42, Alkaline Phosphatase 106, Total Creatine Kinase 109, CK-MB (CK-2) < 0.5, CK-MB (CK-2) Rel Index 0.5, Troponin I < 0.02, Total Protein 6.8, Albumin 3.6, Globulin 3.2, Albumin/Globulin Ratio 1.1 09/14/17 15:45: B-Natriuretic Peptide 12 09/14/17 15:46: Influenza Type A Ag Negative, Influenza Type B Ag Negative Result diagrams: 09/14/17 15:45 09/14/17 15:45 Orders (Tests/Meds): ED MEDICATIONS Discontinued Medications Generic Name Dose Route Start Last Admin Trade Name Freq PRN Reason Stop Dose Admin Albuterol Sulfate 2.5 mg 09/14/17 16:00 09/14/17 16:01 Albuterol 0.083% 2.5mg/3ml Neb IH 09/14/17 16:01 2.5 mg ONCE ONE Administration - Radiology Data #1 Image(s): Chest Preliminary Findings: Normal/NAD - Anibal Inquiry Pt receiving controlled substance: No Anibal was queried for this patient: No General Adult HPI - General Chief complaint: Shortness of Breath/Dyspnea Stated complaint: sob Time Seen by Provider: 09/14/17 17:38 Mode of Arrival: Family Vehicle Limitations: No Limitations Description of Symptoms (Recalled from ER Triage Doc. by RN): 2 days of copd exacerbation - History of Present Illness HPI narrative: History of COPD with inhalers, nebs andhome O2 but wo
[2017-09-14 18:11] VITALS: PULSE 76; PULSE 78
[2017-09-14 19:20] VITALS: BP 114/61; PULSE 75; RESP 18; TEMP 36.7; O2SAT 98
--- NOTE | 2017-09-14 20:12 | PC.NURSE ---
PT CALLED BACK REQUESTING PRESCRIPTION FOR COUGH MEDICATION BE CALLED INTO PHARMACY. DOCTOR ANGELES ADVISED TO CALL [facility] 100MG ONE TID #30 NO R/F IN FOR PT AT [facility].
--- NOTE | 2017-09-15 09:46 | PC.NURSE ---
Pt called this morning states she had contacted [facility] and they stated did not have any prescriptions for pt. Checked pt charted, pt was seen yesterday by Dr. Paulson, asked Dr. Pereira r/t prednisone prescription on pt chart r/t unclear directions. Dr. Pereira stated to do tapering dose of Prednisone 5mg po 6 tablets x3 days, 4 tablets x3 day, 2 tablets x3 days, 1 tablet x3 days. Levaquin prescription that was on pt chart called in to [facility] at this time as well. Spoke with Cordell at [facility].
== END 2017-09-14 19:20 | disposition home or self-care (01) ==
PROVIDERS: Emergency Provider General Practice; Family Provider Emergency Medicine; PCP Emergency Medicine
DX: J44.1 Chronic obstructive pulmonary disease with (acute) exacerbation (principal); E78.5 Hyperlipidemia, unspecified; I10 Essential (primary) hypertension; Z95.0 Presence of cardiac pacemaker; Z90.49 Acquired absence of other specified parts of digestive tract; Z90.710 Acquired absence of both cervix and uterus
CPT/HCPCS: 71046; 80053; 82550; 82553; 83880; 84484; 85025; 87275; 87276; 99281

== ENCOUNTER 2017-09-16 18:01 | Inpatient (IN) | payer MEDICAID, SELFPAY ==
[2017-09-16] VITALS (7 sets, daily range): BP systolic 116–125; BP diastolic 69–92; PULSE 84–101; RESP 24–26; TEMP 36.9–37.2; O2SAT 3–93; BMI 32.8; BMI 32.4
--- NOTE | 2017-09-16 18:10 | XR_ITS ---
XR chest 2V Ordering Physician: Nasim Juarez MD Patient Age: 62 years: Female HISTORY: ITS.REASON: SOA TECHNIQUE: PA and lateral chest COMPARISON :Previous chest film 09/14/2017 FINDINGS On a single peripheral consolidation or focal pneumonia but there is slight additional coarsening and prominence of central markings and airways. I suspect this reflects bronchitis and central airway inflammatory changes. Only Question possible scant early infiltrate at the right infrahilar area . Equivocal best.. Heart annie and mediastinal structures satisfactory. Pacemaker overlying the left chest with atrial and ventricular leads intact. No pneumothorax no effusions. Chest wall and ribs intact. Mild degenerative changes T spine stable. IMPRESSION: Chronic changes with no focal consolidation or definitive pneumonia. Suggestion of central airway inflammatory changes, reflecting bronchitis. Initially question possible wispy infiltrate right infrahilar region, but this is equivocal at best on final review & similar to multiple old studies this more likely chronic change..
--- NOTE | 2017-09-16 18:17 | HMH.EDSOB ---
ED Disposition Clinical Impression: COPD exacerbation Disposition: Still a Patient Condition on Discharge: Fair Referrals: Ilir Jeffers MD [Primary Care Provider] - - Critical Care Critical Care Time: No Attestation: On 09/16/17, the high probability of a clinically significant, sudden or life threatening deterioration of the following system(s) required my full and direct attention, intervention and personal management. The time I documented below is in addition to time spent performing reported procedures but includes the following listed in this critical care notation. Medical Decision Making - Medical Records Medical records reviewed: Yes: I reviewed the patient's medical records. Vital Signs: 09/16/17 18:01 09/16/17 18:53 09/16/17 18:54 Temperature 98.8 F Temperature Source Oral Pulse Rate 93 H 93 H Pulse Rate [Right Brachial] 101 H Respiratory Rate 26 H Blood Pressure [Right Arm] 116/92 Blood Pressure Mean [Right Arm] 100 Blood Pressure Source [Right Arm] Automatic Cuff Blood Pressure Position [Right Arm] Sitting 02 Sat by Pulse Oximetry 93 L Oxygen Delivery Method Nasal Cannula Oxygen Flow Rate (LPM) 2 - Lab Data Lab results reviewed: Yes: I reviewed the patient's lab results. Lab Results 09/16/17 17:44: WBC 16.0 H D, RBC 5.12, Hgb 15.1, Hct 47.0, MCV 91.9, MCH 29.5, MCHC 32.1, RDW 13.7, Plt Count 171, MPV 9.9, Neut % (Auto) 82.3 H, Lymph % (Auto) 10.6, [place] % (Auto) 5.4, Eos % (Auto) 1.3, Baso % (Auto) 0.3, Neut # (Auto) 13.2 H, Lymph # (Auto) 1.7, [place] # (Auto) 0.9, Eos # (Auto) 0.2, Baso # (Auto) 0.1, Total Counted 100, Neutrophils % (Manual) 80 H, Band Neutrophils % 9.0 H, Lymphocytes % (Manual) 9 L, Monocytes % (Manual) 1 L, Eosinophils % (Manual) 1, Platelet Estimate Normal, RBC Morphology Normal 09/16/17 17:44: Sodium 141, Potassium 4.3, Chloride 105, Carbon Dioxide 30, Anion Gap 10.3, BUN 26 H D, Creatinine 1.38 H D, Estimated Creat Clear 65, Estimated GFR 38 L, Est GFR ( Amer) 47 L, Glucose 200 H, Calcium 9.1, Total Bilirubin 0.5, AST 21, ALT 47, Alkaline Phosphatase 125 H, Troponin I < 0.02, Total Protein 7.1, Albumin 3.9, Globulin 3.2, Albumin/Globulin Ratio 1.2 Result diagrams: 09/16/17 17:44 09/16/17 17:44 Orders (Tests/Meds): ED MEDICATIONS Generic Name Dose Route Start Last Admin Trade Name Freq PRN Reason Stop Dose Admin Acetaminophen 650 mg 09/16/17 18:34 09/16/17 18:36 Acetaminophen 325mg Tab PO 10/16/17 18:33 650 mg Q4HP PRN Administration Mild Pain Discontinued Medications Generic Name Dose Route Start Last Admin Trade Name Freq PRN Reason Stop Dose Admin Albuterol/Ipratropium 3 ml 09/16/17 18:15 09/16/17 18:45 Duoneb 3ml Neb IH 10/16/17 18:14 3 ml Q1H HAJA Administration Methylprednisolone Sodium Succinate 125 mg 09/16/17 18:15 09/16/17 18:25 Solu-Medrol 125mg/2ml Vial IV 09/16/17 18:16 125 mg ONCE ONE Administration ORDERS Category Date Time Status ECG Request by /Davis Stat Y 09/16/17 18:15 Ordered - Radiology Data #1 Image(s): Chest Image Reviewed: Yes I reviewed the patient's radiology image Preliminary Findings: Normal/NAD - ECG Data Tracing #1 Normal sinus rhythm 96/min normal P QRS and T waves, no acute findings. ECG initial impression date: 09/16/17 ECG initial impression time: 19:06 - Anibal Inquiry Pt receiving controlled substance: No Anibal was queried for this patient: No Medical Decision Making Narrative: After receiving Solu-Medrol and DuoNeb treatments she was able to finish sentence but she remained wheezy and short of breath. I contacted Dr. Enrique was superintendent transmission for Dr. Jeffers who agreed to admit her for continued DuoNeb and steroid therapy. Resp/SOB HPI - General Chief Complaint: Shortness of Breath/Dyspnea Stated Complaint: SOA Mode of Arrival: EMS Limitations: No Limitations Description of Symptoms (Recalled from ER [facility]
--- NOTE | 2017-09-16 18:19 | PC.NURSE ---
pt returned from rad.
--- NOTE | 2017-09-16 18:20 | ED_ITS ---
ED Disposition Clinical Impression: COPD exacerbation Disposition: Still a Patient Condition on Discharge: Fair Referrals: Ilir Jeffers MD [Primary Care Provider] - - Critical Care Critical Care Time: No Attestation: On 09/16/17, the high probability of a clinically significant, sudden or life threatening deterioration of the following system(s) required my full and direct attention, intervention and personal management. The time I documented below is in addition to time spent performing reported procedures but includes the following listed in this critical care notation. Medical Decision Making - Medical Records Medical records reviewed: Yes: I reviewed the patient's medical records. Vital Signs: 09/16/17 18:01 09/16/17 18:53 09/16/17 18:54 Temperature 98.8 F Temperature Source Oral Pulse Rate 93 H 93 H Pulse Rate [Right Brachial] 101 H Respiratory Rate 26 H Blood Pressure [Right Arm] 116/92 Blood Pressure Mean [Right Arm] 100 Blood Pressure Source [Right Arm] Automatic Cuff Blood Pressure Position [Right Arm] Sitting 02 Sat by Pulse Oximetry 93 L Oxygen Delivery Method Nasal Cannula Oxygen Flow Rate (LPM) 2 - Lab Data Lab results reviewed: Yes: I reviewed the patient's lab results. Lab Results 09/16/17 17:44: WBC 16.0 H D, RBC 5.12, Hgb 15.1, Hct 47.0, MCV 91.9, MCH 29.5, MCHC 32.1, RDW 13.7, Plt Count 171, MPV 9.9, Neut % (Auto) 82.3 H, Lymph % (Auto ) 10.6, [place] % (Auto) 5.4, Eos % (Auto) 1.3, Baso % (Auto) 0.3, Neut # (Auto) 13.2 H, Lymph # (Auto) 1.7, [place] # (Auto) 0.9, Eos # (Auto) 0.2, Baso # (Auto) 0.1, Total Counted 100, Neutrophils % (Manual) 80 H, Band Neutrophils % 9.0 H, Lymphocytes % (Manual) 9 L, Monocytes % (Manual) 1 L, Eosinophils % (Manual) 1, Platelet Estimate Normal, RBC Morphology Normal 09/16/17 17:44: Sodium 141, Potassium 4.3, Chloride 105, Carbon Dioxide 30, Anion Gap 10.3, BUN 26 H D, Creatinine 1.38 H D, Estimated Creat Clear 65, Estimated GFR 38 L, Est GFR ( Amer) 47 L, Glucose 200 H, Calcium 9.1, Total Bilirubin 0.5, AST 21, ALT 47, Alkaline Phosphatase 125 H, Troponin I < 0.02, Total Protein 7.1, Albumin 3.9, Globulin 3.2, Albumin/Globulin Ratio 1.2 Result diagrams: 09/16/17 17:44 09/16/17 17:44 Orders (Tests/Meds): ED MEDICATIONS Generic Name Dose Route Start Last Admin Trade Name Freq PRN Reason Stop Dose Admin Acetaminophen 650 mg 09/16/17 18:34 09/16/17 18:36 Acetaminophen 325mg Tab PO 10/16/17 18:33 650 mg Q4HP PRN Administration Mild Pain Discontinued Medications Generic Name Dose Route Start Last Admin Trade Name Freq PRN Reason Stop Dose Admin Albuterol/Ipratropium 3 ml 09/16/17 18:15 09/16/17 18:45 Duoneb 3ml Neb IH 10/16/17 18:14 3 ml Q1H HAJA Administration Methylprednisolone Sodium Succinate 125 mg 09/16/17 18:15 09/16/17 18:25 Solu-Medrol 125mg/2ml Vial IV 09/16/17 18:16 125 mg ONCE ONE Administration ORDERS Category Date Time Status ECG Request by /Davis Stat Y 09/16/17 18:15 Ordered - Radiology Data #1 Image(s): Chest Image Reviewed: Yes I reviewed the patient's radiology image Preliminary Findings: Normal/NAD - ECG Data Tracing #1 Normal sinus rhythm 96/min normal P QRS and T wa
--- NOTE | 2017-09-16 18:20 | PC.NURSE ---
rt called for breathing treatment
[2017-09-16 18:22] LABS: Basophils # 0.1 K/mm3 (0-0.2); Basophils % 0.3 % (0.1-2.0); Eosinophils # 0.2 K/mm3 (0.0-0.4); Eosinophils % 1.3 % (0.1-12.0); Hemoglobin 15.1 g/dL (12.2-16.2); Lymphocytes # 1.7 K/mm3 (0.7-4.5); Lymphocytes % 10.6 K/mm3 (10-50); Mean Corpuscular HGB Conc 32.1 g/dL (31.8-35.4); Mean Corpuscular Hemoglobin 29.5 pg (27.0-31.2); Mean Corpuscular Volume 91.9 fl (81-99); Mean Platelet Volume 9.9 fl (7.4-10.4); Monocytes # 0.9 K/mm3 (0.1-1.0); Monocytes % 5.4 % (1.7-9.3); Neutrophils # 13.2 K/mm3 (1.8-7.8); Neutrophils % 82.3 % (37.0-80.0); Platelet Count 171 K/mm3 (142-424); Red Blood Count 5.12 M/mm3 (4.20-5.40); Red Cell Distribution Width 13.7 % (11.5-17.5)
[2017-09-16 18:24] LABS: MANUAL DIFFERENTIAL MANUAL DIFFERENTIAL (MANUAL DIFF)
[2017-09-16 18:37] LABS: Alanine Aminotransferase 47 U/L (12-78); Albumin Level 3.9 gm/dL (3.4-5.0); Albumin/Globulin Ratio 1.2 (1.1-1.8); Alkaline Phosphatase 125 U/L (46-116); Anion Gap 10.3 mEq/L (5-15); Aspartate Amino Transferase 21 U/L (15-37); Bilirubin,Total 0.5 mg/dL (0.2-1.0); Blood Urea Nitrogen 26 mg/dL (7-18); Calcium 9.1 mg/dL (8.5-10.1); Carbon Dioxide 30 mmol/L (21.0-32.0); Chloride 105 mmol/L (98-107); Creatinine Clearance Estimated 65 mL/min (0-300); Creatinine,Serum 1.38 mg/dL (0.55-1.02); Estimated Glomerular Filt Rate 38 ml/min (>60); GFR (African American) 47 ML/MIN (>60); Globulin 3.2 gm/dl (1.3-3.2); Glucose 200 mg/dL (74-106); Potassium 4.3 mmoL/L (3.5-5.1); Sodium 141 mmol/L (136-145); Total Protein,Serum 7.1 gm/dL (6.4-8.2); Troponin I < 0.02 ng/ml (0.00-0.06)
[2017-09-16 18:54] LABS: Eosinophils % 1 % (0-3); Lymphocytes % 9 % (10-50); Monocytes % 1 % (2-9); Neutrophils % 80 % (42-76); Platelet Estimate Normal; RBC Morphology Normal; Total Cells Counted 100
--- NOTE | 2017-09-16 21:35 | PC.NURSE ---
PAGED DR. LAGOS AT 2134. MD RESPONDED AT 2136. MD NOTIFIED OF SOA AND OF PATIENT UNABLE TO GET HER BREATH. RR 26. OXYGEN SET AT 3LNC, PT USUALLY WEARS 2LNC AT HOME. LUNG SOUNDS NOTED WITH WHEEZES AND RHONCHI T/O AUSCULTATION. PRN DUONEB ADMINISTERED AROUND 2029. PER SEP DUONEBS ORDERED Q4H PRN. PT DID RECEIVE 125MG SOLUMEDROL IV IN ED AND NEXT DOSE WILL BE ADMINISTERED 129. PT REPORTS HX OF CHF WITH NOTICING SWELLING IN ANKLES AND URINATING X1 AFTER PO LASIX TAKEN THIS MORNING. PT STATED WHEN I DID PEE IT WAS ONLY A VERY LITTLE BIT. PT REPORTS FEELING THE NEED TO PEE BUT UNABLE TO, RN ASSESSED FOR BLADDER DISTENSION, ASSESSMENT WAS LIMITED R/T OBESITY BUT PT DID REPORT MILD TENDERNESS ON PALPATION. MINIMAL SWELLING NOTED ON BILAT ANKLES, NONPITTING. PT ALSO TAKES ALDACTONE 50 MG AT HS. REPORTING CHEST PAIN. PT STATES I AM HURTING A LITTLE BIT IN MY CHEST TOO BUT I THINK IT IS FROM COUGHING SO MUCH. REPORTS CHEST PAIN 11/06. DENIES NEED FOR PRN TYLENOL OR ANY OTHER PAIN MEDICATIONS BUT DID REQUEST COUGH MEDICATION. MD WAS MADE AWARE THAT TESSLON PERLE 100 MG TID WAS NOTED ON MED REC. PT WAS SEEN IN THE ED ON SUNDAY AND TESTED FOR FLU, RESULTS WERE NEGATIVE. PT ALSO REQUESTING REQUIP 2MG FOR RESTLESS LEGS. REQUIP 2MG PO AT NIGHT NOTED ON MED REC. ORDERS REPEATED AND VERIFIED WITH DR. LAGOS: 60 MG IV LASIX X1 TIME ONLY. DUONEB SCHEDULED QID AND DUONEB Q HR PRN. TESSLON PERLE 100 MG TID, REQUIP 2MG PO Q HS, UPPER RESPIRATORY PANEL.
[2017-09-16 22:09] LABS: Adenovirus,PCR Not Detected (NotDetected); Bordetella Pertussis Not Detected (NotDetected); Chlamydophila Pneumoniae, PCR Not Detected (NotDetected); Coronavirus 229E Not Detected (NotDetected); Coronavirus NL63 Not Detected (NotDetected); Coronavirus OC43 Not Detected (NotDetected); Coronovirus HKU1,PCR Not Detected (NotDetected); Human Metapneumovirus Not Detected (NotDetected); Influenza A, PCR Not Detected (NotDetected); Influenza AH1, 2009 Not Detected (NotDetected); Influenza AH1, PCR Not Detected (NotDetected); Influenza AH3,PCR Not Detected (NotDetected); Influenza B, PCR Not Detected (NotDetected); Mycoplasma Pneumoniae, PCR Not Detected (NotDected); Parainfluenza 1, PCR Not Detected (NotDetected); Parainfluenza 2, PCR Not Detected (NotDetected); Parainfluenza 3, PCR Not Detected (NotDetected); Parainfluenza 4, PCR Not Detected (NotDetected); Rhinovirus/Enterovirus Not Detected (NotDetected)
[2017-09-16 23:40] LABS: Respiratory Syncytial Virus Detected (NotDetected)
[2017-09-17] VITALS (13 sets, daily range): BP systolic 125–159; BP diastolic 56–81; PULSE 94–125; RESP 24–28; TEMP 36.4–36.7; O2SAT 85–94
--- NOTE | 2017-09-17 02:13 | PC.NURSE ---
MD NOTIFIED MD OF STATEMENTS MADE REFLECTING ANXIOUSNESS. PT WOULD STATE I AM AFRAID TO GO TO SLEEP BECAUSE I AM AFRAID I WILL STOP BREATHING. REINFORCED THAT STAFF WILL MONITOR T/O SHIFT, A STAFF MEMBER WOULD ROUNDING EVERY HOUR AND ABILITY TO NOTIFY STAFF AT ANYTIME/PRN. PT STATED I AM JUST AFRAID WITH MY BREATHING. I AM SOA. UNABLE TO SLEEP. PCR RESULTED RSV, DROPLET PRECAUTIONS IN PLACE. REPEATED/VERIFIED WITH DR. LAGOS: 1ML ROXANOL SL ONE TIME DOSE.
--- NOTE | 2017-09-17 03:29 | PC.NURSE ---
EDUCATION PROVIDED REGARDING DROPLET PRECAUTIONS. 2LNC TOLERATED WELL WITH O2SAT AT OR ABOVE 90%. ADMINISTERED PRN AND SCHEDULED BREATHING TX'S PER SEP T/O SHIFT. LUNG SOUNDS NOTED WITH WHEEZES AND RHONCHI T/O. IV LASIX ADMINISTERED PER SEP AND URINE OUTPUT NOTED AND RECORDED IN I&O'S. PT REPORTED ON ADMISSION I HAVE NOTICED AN ODOR TO MY URINE AT HOME. IS AWARE OF THIS. URINE WAS NOTED YELLOW, CLEAR AND FREE FROM ODOR PER STAFF. UA WAS OBTAINED AND SENT TO LAB, WILL PASS ON TO DAY SHIFT RN AND TO DISCUSS WITH MD ON AM ROUNDS. DRY, HACKY COUGH NOTED, ADMINISTERED COUGH MED PER SEP. VSS. WILL CONTINUE TO MONITOR.
[2017-09-17 06:38] LABS: Basophils % 0.1 % (0.1-2.0); Hematocrit 44.2 % (37.0-47.0); Hemoglobin 13.8 g/dL (12.2-16.2); Lymphocytes # 0.5 K/mm3 (0.7-4.5); Lymphocytes % 5.1 K/mm3 (10-50); Mean Corpuscular HGB Conc 31.1 g/dL (31.8-35.4); Mean Corpuscular Hemoglobin 28.8 pg (27.0-31.2); Mean Corpuscular Volume 92.6 fl (81-99); Mean Platelet Volume 9.6 fl (7.4-10.4); Monocytes # 0.2 K/mm3 (0.1-1.0); Monocytes % 2.3 % (1.7-9.3); Neutrophils # 8.7 K/mm3 (1.8-7.8); Neutrophils % 92.5 % (37.0-80.0); Platelet Count 141 K/mm3 (142-424); Red Blood Count 4.77 M/mm3 (4.20-5.40); Red Cell Distribution Width 13.6 % (11.5-17.5); White Blood Count 9.4 K/mm3 (4.8-10.8)
[2017-09-17 06:40] LABS: MANUAL DIFFERENTIAL MANUAL DIFFERENTIAL (MANUAL DIFF)
[2017-09-17 06:42] LABS: Anion Gap 14.3 mEq/L (5-15); Blood Urea Nitrogen 24 mg/dL (7-18); Carbon Dioxide 26 mmol/L (21.0-32.0); Chloride 104 mmol/L (98-107); Creatinine Clearance Estimated 53 mL/min (0-300); Creatinine,Serum 1.67 mg/dL (0.55-1.02); Estimated Glomerular Filt Rate 31 ml/min (>60); GFR (African American) 37 ML/MIN (>60); Glucose 273 mg/dL (74-106); Magnesium 1.7 mg/dL (1.4-2.2); Potassium 4.3 mmoL/L (3.5-5.1); Sodium 140 mmol/L (136-145)
--- NOTE | 2017-09-17 07:21 | PC.NURSE ---
REPORT GIVEN TO Johnson SOTELO W/C
--- NOTE | 2017-09-17 07:22 | HMH.PHAVTE ---
[facility] Pharmacy VTE Monitoring - Patient Demographics Admission date: 09/16/17 Report Date: 09/17/17 Time: 07:22 Allergies/Adverse Reactions: Patient Allergies Iodinated Contrast Media - Oral and [Iodinated Contrast Media - IV Dye] Allergy (Intermediate, Verified 09/16/17 18:11) I-RASH Penicillins [PENICILLINS] Allergy (Unknown, Verified 09/16/17 18:11) I-RASH Sulfa (Sulfonamide Antibiotics) [SULFA (SULFONAMIDE ANTIBIOTICS)] Allergy (Unknown, Verified 09/16/17 18:11) NA-NAUSEA/VOMITING Height: 1.75 m Weight: 97.778 kg Patient Problems: Current Active Problems COPD exacerbation (Acute) - VTE Risk Labs: VTE Related Lab Results Hgb 13.8 g/dL (12.2-16.2) 09/17/17 06:10 Hct 44.2 % (37.0-47.0) 09/17/17 06:10 Plt Count 141 K/mm3 (142-424) L 09/17/17 06:10 BUN 24 mg/dL (7-18) H 09/17/17 06:10 Creatinine 1.67 mg/dL (0.55-1.02) H D 09/17/17 06:10 Estimated Creat Clear 53 mL/min (0-300) 09/17/17 06:10 Was VTE Risk Assessment Performed: Yes VTE Risk Level: Moderate Risk - Prophylaxis VTE Prophylaxis Ordered?: Yes Types of VTE Prophylaxis: TEDS Knee High Location of Applied Device: Bilateral Lower Extremeties - VTE Diagnosis Confirmed Treatment or plan recommended: Continue Current Treatment
[2017-09-17 08:57] LABS: Lymphocytes % 3 % (10-50); Monocytes % 2 % (2-9); Neutrophils % 95 % (42-76); Total Cells Counted 100
[2017-09-17 08:58] LABS: Platelet Estimate Normal; RBC Morphology Normal
--- NOTE | 2017-09-17 13:23 | HMH.HP ---
*Admission Date: 09/16/17 *Chief complaint: sob *History of present illness: this wf who has known copd and presented with increased resp sx -This is 62 years old white female COPD who was seen 2 days ago was prescribed prednisone she was unable to obtain her medications due to pharmacy approval procedure. She contacted the ER it was sent to the clinic pharmacy and she still without medication. She continued to have respiratory difficulty and she was brought by the EMS. [facility] History I have reviewed the patient's past medical history: Yes Medical History: Reports:: Atherosclerotic Heart Disease, Congestive Heart Failure, Hyperlipidemia, Hypertension, Internal Pacemaker Denies:: Cancer, Diabetes Mellitus Type 1, Diabetes Mellitus Type 2, MRSA Other Medical History: Reports: Arthritis, Cataracts, Thyroid Disease Laterality Cases: Right: Arthroscopy Knee Other Surgeries: Yes: Colonoscopy, EGD, Hysterectomy-Total, Pacemaker, Other (gallbladder, cyst removed form wrist) Amputation: No Fractures: No - *Social History Educational Level: Completed High School Smoking Status: Current every day smoker Tobacco Type: cigarettes, e-cigarettes # Packs/Day (cigarettes): 10 #Yrs smoked (if former smoker): 35 Alcohol Intake: never Occupational Status: disabled Housing: apartment Household Members: none - Psychiatric History Expresses thoughts of harming self/others: None Suicide Plan Description: No Plan *Family Hx:: Unable to obtain, Cancer, Coronary Artery Disease, Diabetes, Hyperlipidemia, Hypertension Review of Systems - Review of Systems Review of systems:: pertinent systems reviewed and negative unless documented below - Constitutional Reports malaise, Denies fever(s) - Eyes Denies change in vision - ENT Denies throat swelling - *Cardiovascular Denies chest pain at rest - *Respiratory Reports cough, Reports shortness of breath, Reports shortness of breath with activity, Denies coughing up blood - *Gastrointestinal Denies abdominal pain - *Musculoskeletal Denies joint pain, Denies joint swelling - Integumentary/Breasts Denies rash - *Neurologic Reports weakness, Denies confusion, Denies localized weakness - Psychiatric Reports anxiety Meds Home Medications Medication Instructions Recorded Confirmed Type Aspirin [Aspir 81] 81 mg PO DAILY 08/26/17 09/16/17 History Atorvastatin Calcium [Atorvastatin 80 mg PO HS 08/26/17 09/16/17 History 80mg Tab] Budesonide/Formoterol Fumarate 2 puffs IH DAILY 08/26/17 09/16/17 History [Symbicort 160-4.5 Mcg Inhaler] Furosemide [Lasix 40mg tablet] 40 mg PO DAILY 08/26/17 09/16/17 History Losartan Potassium 50 mg PO DAILY 08/26/17 09/16/17 History Metoprolol Tartrate [Lopressor 50 mg PO BID 08/26/17 09/16/17 History 50mg tablet] Montelukast Sodium [Montelukast 10 mg PO HS 08/26/17 09/16/17 History 10mg Tab] Omeprazole [Omeprazole 40mg 40 mg PO DAILY 08/26/17 09/16/17 History Capsule] Ropinirole HCl [Requip] 2 mg PO HS 08/26/17 09/16/17 History Spironolactone [Spironolactone 50 mg PO HS 08/26/17 09/16/17 History 50mg Tab] buPROPion HCl [Bupropion HCl Sr] 150 mg PO BID 08/26/17 09/16/17 History Gabapentin [Neurontin 600mg 600 mg PO TID 09/14/17 09/16/17 History tablet] Tizanidine HCl [Zanaflex] 4 mg PO BID 09/17/17 09/16/17 History Allergies Allergy/AdvReac Type Severity Reaction Status Date / Time Iodinated Contrast Media - Allergy Intermediate I-RASH Verified 09/16/17 18:11 Oral and [Iodinated Contrast Media - IV Dye] Penicillins [PENICILLINS] Allergy Unknown I-RASH Verified 09/16/17 18:11 Sulfa (Sulfonamide Allergy Unknown NA-NAUSEA/V Verified 09/16/17 18:11 Antibiotics) OMITING [SULFA (SULFONAMIDE ANTIBIOTICS)] Exam Vital signs and Labs for Last 24 Hours: Temp Pulse Resp BP Pulse Ox 97.8 F 103 H 24 125/56 92 L 09/17/17 07:53 09/17/17 11:19 09/17/17 07:53 09/17/17 07:53
[2017-09-18] VITALS (8 sets, daily range): BP systolic 96–144; BP diastolic 58–80; PULSE 68–93; RESP 20–26; TEMP 36.3–36.6; O2SAT 94–97
--- NOTE | 2017-09-18 05:36 | PC.NURSE ---
PT RESTING IN BED. SHE IS CURRENTLY ON 35% VENTI MASK. SHE C/O SOA EARLY IN SHIFT AND O2 SAT WAS NOTED TO BE 89%VENTI MASK WAS INCREASED TO 50% TO MAINTAIN 02 SAT. HARSH WHEEZING WAS NOTED ALSO T/O LUNGS. OTHER VSS. MEDICATIONS ADMIN PER SEP. NO OTHER COCNERNS AT THIS TIME. WILL CONTIUE TO MONITOR.
--- NOTE | 2017-09-18 07:41 | PC.NURSE ---
REPORT HAND OFF TO Dony LONG
--- NOTE | 2017-09-18 09:02 | XR_ITS ---
XR chest portable HISTORY: Shortness of breath ITS.REASON: sob ORDERING PHYSICIAN: Ilir Jeffers MD PATIENT AGE: 62 years COMPARISON: 09/16/2017 FINDINGS: Cardiac pacemaker device remains in place. Unremarkable cardiovascular structures. Lungs are clear. But no artifact overlies the upper chest. Surgical clips are present in the paratracheal region superiorly. IMPRESSION: No change with no acute finding.
--- NOTE | 2017-09-18 09:04 | HMH.ACPN2 ---
Internal Medicine - PN: Subj *Date: 09/18/17 *Time: 09:04 Interval history: pt with persistant sob Exam Vital signs and Labs for Last 24 Hours: Temp Pulse Resp BP Pulse Ox 97.3 F L 83 22 126/74 94 L 09/18/17 07:56 09/18/17 07:56 09/18/17 07:56 09/18/17 07:56 09/18/17 07:56 I & O for Last 24 hours: Intake & Output 09/15/17 09/16/17 09/17/17 09/18/17 11:59 11:59 11:59 11:59 Intake Total 240 / 240 720 / 720 Output Total 2450 / 2450 900 / 900 Balance -2210 / -2210 -180 / -180 Weight 215 lb 9 oz 214 lb 9 oz - Constitutional no acute distress - *Routine HEENT Exam Head: Present: normocephalic Eye: Present: EOMI ENT: Present: mucous membranes dry - *Routine Neck Exam Present: supple - *Routine Respiratory Exam Present: accessory muscle use, prolonged expiratory phase, wheezes, distant breath sounds - *Routine Cardiovascular Exam Present: RRR, murmur, S4 - *Routine Extremities Exam Absent: calf tenderness - *Routine Skin Exam Present: intact - *Routine Neurological Exam Present: alert, oriented X3, CN II-XII intact - Routine Psychiatric Exam Present: normal affect Assessment and Plan (1) COPD (chronic obstructive pulmonary disease) with acute bronchitis Current visit: Yes Status: Acute Category: Medical Code(s): J44.0 - Chronic obstructive pulmonary disease with acute lower respiratory infection; J20.9 - Acute bronchitis, unspecified
[2017-09-18 09:43] LABS: Basophils % 0.1 % (0.1-2.0); Eosinophils % 0.1 % (0.1-12.0); Hematocrit 46.9 % (37.0-47.0); Hemoglobin 15.1 g/dL (12.2-16.2); Lymphocytes # 0.9 K/mm3 (0.7-4.5); Lymphocytes % 3.9 K/mm3 (10-50); Mean Corpuscular HGB Conc 32.2 g/dL (31.8-35.4); Mean Corpuscular Hemoglobin 29.2 pg (27.0-31.2); Mean Corpuscular Volume 90.8 fl (81-99); Mean Platelet Volume 9.3 fl (7.4-10.4); Monocytes # 0.8 K/mm3 (0.1-1.0); Monocytes % 3.4 % (1.7-9.3); Neutrophils # 21.7 K/mm3 (1.8-7.8); Neutrophils % 92.4 % (37.0-80.0); Platelet Count 191 K/mm3 (142-424); Red Blood Count 5.17 M/mm3 (4.20-5.40); Red Cell Distribution Width 13.6 % (11.5-17.5); White Blood Count 23.5 K/mm3 (4.8-10.8)
[2017-09-18 09:51] LABS: MANUAL DIFFERENTIAL MANUAL DIFFERENTIAL (MANUAL DIFF)
[2017-09-18 10:05] LABS: Anion Gap 10.6 mEq/L (5-15); Blood Urea Nitrogen 35 mg/dL (7-18); Carbon Dioxide 32 mmol/L (21.0-32.0); Chloride 103 mmol/L (98-107); Creatinine Clearance Estimated 69 mL/min (0-300); Creatinine,Serum 1.27 mg/dL (0.55-1.02); Estimated Glomerular Filt Rate 42 ml/min (>60); GFR (African American) 51 ML/MIN (>60); Glucose 183 mg/dL (74-106); Potassium 4.6 mmoL/L (3.5-5.1); Sodium 141 mmol/L (136-145); Troponin I < 0.02 ng/ml (0.00-0.06)
[2017-09-18 10:27] LABS: Lymphocytes % 6 % (10-50); Monocytes % 1 % (2-9); Neutrophils % 93 % (42-76); Platelet Estimate Normal; RBC Morphology Normal; Total Cells Counted 100
[2017-09-18 16:46] LABS: ABG Base Excess 2.3 mmol/L (-2.4-2.3); ABG HCO3 27.7 mmhg (22.0-26.0); ABG Oxygen Saturation 93 % (90-100); ABG PCO2 49.4 mmhg (35.0-45.0); ABG PH 7.37 mmol/L (7.35-7.45); ABG PO2 68.3 mmhg (80-100); ABG TCO2 29.2 mmhg (23-27); Allen's Test A; Oxygen 35 %; Source Left Radial
--- NOTE | 2017-09-18 17:19 | PC.NURSE ---
no changes from previous assessment. wheezes throughout. ventimask at 35% and o2 sat running in low 90's. pt has stated anxiety once this shift and prn med given per mar with relief. normal heart and bowel sounds. pt uses bsc throughout shift. no other complaints. call light in reach. will continue to monitor pt condition.
--- NOTE | 2017-09-18 19:03 | PC.NURSE ---
handoff report to be given to luz dia rn
[2017-09-19] VITALS (10 sets, daily range): BP systolic 99–149; BP diastolic 48–81; PULSE 69–90; RESP 20–22; TEMP 36.4–36.8; O2SAT 88–96; BMI 32.0
--- NOTE | 2017-09-19 01:51 | PC.NURSE ---
PT RESTING IN BED. SHE CONTINUES TO HAVE HARSH WHEEZING NOTED T/O LUNGS. SHE REMAINS ON 35% VENTI MASK @ 93%. OTHER VSS. PT IS LESS ANXIOUS TONIGHT. MEDICATIONS ADMIN PER MAR. NO OTHER CONCERNS NOTED AT THIS TIME. WILL CONTINUE TO MONITOR.
--- NOTE | 2017-09-19 07:38 | PC.NURSE ---
REPORT HAND OFF TO DEEJAY HOYT
--- NOTE | 2017-09-19 13:08 | HMH.ACPN2 ---
Internal Medicine - PN: Subj *Date: 09/20/17 *Time: 08:37 Interval history: doing better but still with ongoing resp sx Exam Vital signs and Labs for Last 24 Hours: Temp Pulse Resp BP Pulse Ox 98.3 F 89 22 99/48 96 09/19/17 07:45 09/19/17 09:32 09/19/17 07:45 09/19/17 07:45 09/19/17 07:45 Laboratory Results - last 24 hr 09/18/17 16:36: Specimen Source Left radial, O2 % 35, ABG pH 7.37, ABG pCO2 49.4 H, ABG pO2 68.3 L, ABG HCO3 27.7 H, ABG Total CO2 29.2 H, ABG O2 Saturation 93, ABG Base Excess 2.3, Roman Test A I & O for Last 24 hours: Intake & Output 09/17/17 09/18/17 09/19/17 09/20/17 11:59 11:59 11:59 11:59 Intake Total 240 / 240 820 / 820 1691 / 1691 Output Total 2450 / 2450 900 / 900 2049 / 2049 Balance -2210 / -2210 -80 / -80 -359 / -359 Weight 215 lb 9 oz 214 lb 9 oz 216 lb 6 oz - Constitutional no acute distress - *Routine HEENT Exam Head: Present: normocephalic Eye: Present: EOMI, PERRL ENT: Present: mucous membranes dry - *Routine Neck Exam Present: supple - *Routine Respiratory Exam Present: prolonged expiratory phase - *Routine Cardiovascular Exam Present: RRR, murmur - *Routine Abdominal Exam Present: soft - *Routine Extremities Exam Absent: joint swelling - *Routine Skin Exam Present: intact - *Routine Neurological Exam Present: alert, CN II-XII intact - Routine Psychiatric Exam Present: normal affect Assessment and Plan (1) COPD (chronic obstructive pulmonary disease) with acute bronchitis Current visit: Yes Status: Acute Category: Medical Code(s): J44.0 - Chronic obstructive pulmonary disease with acute lower respiratory infection; J20.9 - Acute bronchitis, unspecified
--- NOTE | 2017-09-19 14:28 | PC.NURSE ---
62 y/o female admitted with diagnosis of COPD exacerbation, positive for RSV. Pt is A&Ox3. VSS. Afebrile. Pt denies pain. Heart rate reg. Lungs with wheezes noted throughout all powers. O2 via venti mask at 35%. Pt sats this shift maintaining > 93%. Abd soft and nontender /c active BS x4 quads. Last BM per pt report on 09/15; pt reports this is her baseline. No c/o with urination verbalized. Pt up to BSC throughout shift. IV (R) AC infusing 0.45%NaCl @ 50ml/hr /s difficulty. No s/s of infiltration/infection noted at insertion site. Droplet precautions maintained this shift. Bed in low position, call chowdhury within reach. Will continue to monitor pt's status.
--- NOTE | 2017-09-19 18:56 | PC.NURSE ---
Report given to Silvia Escamilla RN
[2017-09-20] VITALS (7 sets, daily range): BP systolic 104–116; BP diastolic 62–72; PULSE 67–80; RESP 22–24; TEMP 36.2–36.8; O2SAT 90–95
--- NOTE | 2017-09-20 01:15 | PC.NURSE ---
Taking over care of this pt. Laying in bed awake. No needs at this time.
--- NOTE | 2017-09-20 02:21 | PC.NURSE ---
Patient laying in bed resting. At last med pass, was very soa with minimal exertion. Wheezes throughout all lung powers. Is on a Venti Mask at 35% o2 sat was 95 %.Complained of a sore throat, gave Tylenol for throat pain. Has been able to turn self. abd soft and non tender, bowel sounds + x 4 quads. IV is patent. Denies any other needs at this time. Bed locked in low position, side rails up x 2. Call Light within reach, will continue to monitor. Encouraged to use Call Light.
--- NOTE | 2017-09-20 07:23 | PC.NURSE ---
REPORT GIVEN TO Silvia HERNANDEZ W/C
--- NOTE | 2017-09-20 08:39 | HMH.ACPN2 ---
Internal Medicine - PN: Subj *Date: 09/20/17 *Time: 08:39 Interval history: pt doing better with no acute changes Exam Vital signs and Labs for Last 24 Hours: Temp Pulse Resp BP Pulse Ox 97.7 F 69 24 110/70 94 L 09/20/17 08:00 09/20/17 08:00 09/20/17 08:00 09/20/17 08:00 09/20/17 08:00 I & O for Last 24 hours: Intake & Output 09/17/17 09/18/17 09/19/17 09/20/17 11:59 11:59 11:59 11:59 Intake Total 240 / 240 820 / 820 1791 / 1791 1572 / 1572 Output Total 2450 / 2450 900 / 900 2049 / 2049 Balance -2210 / -2210 -80 / -80 -259 / -259 -428 / -428 Weight 215 lb 9 oz 214 lb 9 oz 216 lb 6 oz 219 lb 6 oz - Constitutional no acute distress - *Routine HEENT Exam Head: Present: normocephalic Eye: Present: EOMI, PERRL ENT: Present: mucous membranes dry - *Routine Neck Exam Present: supple - *Routine Respiratory Exam Present: prolonged expiratory phase. Absent: respiratory distress - *Routine Cardiovascular Exam Present: RRR, murmur - *Routine Abdominal Exam Present: soft - *Routine Extremities Exam Absent: calf tenderness - *Routine Skin Exam Present: intact - *Routine Neurological Exam Present: alert, CN II-XII intact - Routine Psychiatric Exam Present: normal affect Assessment and Plan (1) COPD (chronic obstructive pulmonary disease) with acute bronchitis Current visit: Yes Status: Acute Category: Medical Code(s): J44.0 - Chronic obstructive pulmonary disease with acute lower respiratory infection; J20.9 - Acute bronchitis, unspecified
--- NOTE | 2017-09-20 08:45 | CA_ITS ---
PROCEDURE: 2-D M-mode and color Doppler study INDICATIONS FOR THE TEST: Chest pain COPD+ Heart Murmur Tobacco Smoking+ Palpitations Fatigue Syncope Edema Hypertension+Diabetes Mellitus Rheumatic Fever SOB+CARSON+Obesity+Hyperlipidemia+ Family History HD Additional History CAD, CHF, pacemaker PATIENT INFORMATION HEIGHT: 69 WEIGHT: 219 GENDER: Female B/P: 110/70 2-D/M-MODE INTERPRETATION: Technically very difficult study, endocardial surfaces and valvular structures are not well visualized. 2D This study is technically very difficult and suboptimal and not interpretable. If clinically indicated repeat study with definity contrast or transesophageal echocardiogram is recommended. Probably preserved left ventricular systolic function. DOPPLER INTERROGATION: Doppler interrogation is not interpretable CONCLUSION: 1. Technically very difficult study, endocardial surfaces and valvular structures are not well visualized 2. Probably preserved left ventricle systolic function 3. If clinically indicated transesophageal echocardiogram or repeat study with Definity contrast is recommended.
--- NOTE | 2017-09-20 09:06 | HMH.ACPN ---
Internal Medicine - PN: Subj *Date: 09/20/17 *Time: 09:06 Exam Vital signs and Labs for Last 24 Hours: Temp Pulse Resp BP Pulse Ox 97.7 F 69 24 110/70 94 L 09/20/17 08:00 09/20/17 08:00 09/20/17 08:00 09/20/17 08:00 09/20/17 08:00 I & O for Last 24 hours: Intake & Output 09/17/17 09/18/17 09/19/17 09/20/17 23:59 23:59 23:59 23:59 Intake Total 820 / 820 970 / 970 1699 / 1699 934 / 934 Output Total 1650 / 1650 1500 / 1500 2150 / 2150 900 / 900 Balance -830 / -830 -530 / -530 -451 / -451 34 / 34 Weight 97.778 kg 97.324 kg 98.146 kg 99.507 kg Assessment and Plan (1) COPD (chronic obstructive pulmonary disease) with acute bronchitis Current visit: Yes Status: Acute Category: Medical Code(s): J44.0 - Chronic obstructive pulmonary disease with acute lower respiratory infection; J20.9 - Acute bronchitis, unspecified The patient's infection will respond to the chosen ABx?: Yes Is the patient receiving the right drug, dose, and route?: Yes Could a more targeted ABx be ordered?: No
--- NOTE | 2017-09-20 09:34 | HMH.OTEV ---
Physical Therapy Evaluation Rehab OT IP Evaluation Start: 09/20/17 08:42 Freq: ONCE Status: Complete Protocol: Document 09/20/17 09:18 TFRY (Rec: 09/20/17 09:23 TFRY [id number]) Rehab OT IP Assessment Subjective History This is a 62 year old admitted to the hospital with RSV. She states that she lives at [facility] by herself and is independent. Subjective If I could just breath better . Objective Upper Extremity Gross ROM WNL Bed Mobility bed mobility - supine/sit Assist Level Independent Transfer Training Sit/Stand/Step Transfer Assist Level Independent Self care skills fully toilet trained Feeding Ability Independent Lower Body Dressing Ability Independent Upper Body Dressing Ability Independent Performing Toilet Hygiene Ability Independent Overall Commode/Toilet Transfer Ability Independent Commode/Toilet Transfer Technique Stand Step Pivot Commode/Toilet Transfer Assistive 3-in-1 Commode Devices decrease in endurance Yes Rehab OT IP prob,goals,plan Problems Date of Evaluation: 09/20/17 Other OT problems no further OT is indicated Rehab Potential Rehab Potential Innapropriate for Skilled Therapy Plan Other Intervention Plan No further OT indicated Discharge Plan OT Discharge Plan No further OT indicated Eval Complexity Eval Charge Codes 22903 - Low Complexity G Codes G -code Required Yes OT Current Status Other PT/OT Status OT Current Status Modifier CI-At least 1% but less than 20% impaired, limited or restricted OT Goal Status Other PT/OT Status OT Goal Status Modifier CI-At least 1% but less than 20% impaired, limited or restricted PHYSICIAN CERTIFICATION: I certify the specified therapy services for Yaritza Stallings are required, authorized, and reviewed every 30 days.
--- NOTE | 2017-09-20 12:23 | HMH.PTEV ---
Physical Therapy Evaluation Rehab PT IP Evaluation Start: 09/20/17 08:41 Freq: ONCE Status: Active Protocol: Document 09/20/17 12:20 PHORPATRICK (Rec: 09/20/17 12:23 PHORNE [id number]) Subjective/History History History 62 yof adm to [facility] with COPD exac, now positive for RSV. Subjective Subjective Pt c/o SOA and weakness all over . Rehab PT IP Eval Objective Appearance Patient Behavior Appropriate Patient Orientation Person Place Time Difficulty following instructions none Speech Pattern Clear Ambulation Patient Able to Ambulate Yes Ambulation Observation IP General Gait Pattern Observation No Deviations/Normal Ambulation Distance (feet) 10 Ambulation Assistive Device None Balance Ability to Arise Able, w/o using arms Sitting Balance Steady, safe Standing Balance Narrow stance w/o support Dynamic Sitting Balance Ability Good Dynamic Standing Balance Ability Good Transfers Bed Transfer Ability Supervision/Stand by Chair Transfer Ability Supervision/Stand by Sit to Stand Bed Transfer Ability Supervision/Stand by Sit to Stand Chair Transfer Ability Supervision/Stand by ROM All Extremities PT ROM Status WFL MMT All Extremities PT MMT WFL Rehab PT IP prob,goals,plan Problems Date of Evaluation: 09/20/17 Discharge Plan PT Discharge Plan Pt is appropriate to return home once medicaly stable. G -code Required Yes Eval Complexity Eval Charge Codes 46837 - Moderate Complexity G Codes PT Current Status Mobility PT Current Status Modifier CI-At least 1% but less than 20% impaired, limited or restricted PT Goal Status Mobility PT Goal Status Modifer CI-At least 1% but less than 20% impaired, limited or restricted PHYSICIAN CERTIFICATION: I certify the specified therapy services for Yaritza Stallings are required, authorized, and reviewed every 30 days.
--- NOTE | 2017-09-20 13:24 | SW/DCPLANNER ---
Spoke with patient and patients [id number] regarding discharge plans. Patient stated that she wants to return home once ready to leave [facility]. Patient stated that she has everything she needs at home including home O2. I called and spoke with [id number] to confirm that patient does live at home alone. S-I-L stated that patient does live home alone but does well for herself...patient bathes herself, cooks for herself, visits her friends at the assisted living complex. S-I-L also stated that she drives this patient to the grocery store and to doctor appointments. I will follow up with this patient and [id number] tomorrow to assist with any needs/new orders.
--- NOTE | 2017-09-20 18:38 | PC.NURSE ---
pt assessment still unchanged. wheezes throughout, normal heart and bowel sounds. pt up to chair throughout shift. pt had one episode of anxiety and prn med given per mar with relief. call light in reach. will continue to monitor pt condition.
--- NOTE | 2017-09-20 19:20 | PC.NURSE ---
PT FULL CODE, REPORT FROM KETTY
[2017-09-21] VITALS (7 sets, daily range): BP systolic 107–127; BP diastolic 60–68; PULSE 70–88; RESP 22–24; TEMP 36.3–36.6; O2SAT 88–96
--- NOTE | 2017-09-21 00:53 | PC.NURSE ---
PT ASLEEP, CONTNUES ON 35% VENTI MASK. NO C/O PAIN OR DISCOMFORT. IV SECURE AND PATENT. PT STABLE. WILL CONTINUE TO MONITOR. REPORT TO ONCOMING NURSE.
--- NOTE | 2017-09-21 03:48 | PC.NURSE ---
SINCE Jacobo KELLY PERFORMED REPORT HAND-OFF TO THIS RN PT REQUESTED PRN ANXIETY MEDICINE AROUND 023. RN ADMINISTERED PRN ANXIETY MED PER SEP, ON REASSESSMENT APPROXIMATELY 40 MIN FOLLOWING ADMINISTRATION, PT NOTED SLEEPING. 35% VENTI MASK IN PLACE, TOLERATING WELL. DROPLET PRECAUTIONS IN PLACE, TOLERATING WELL. VSS. WILL CONTINUE TO MONITOR.
--- NOTE | 2017-09-21 07:15 | PC.NURSE ---
REPORT GIVEN TO Johnson SOTELO W/C
[2017-09-21 07:31] LABS: Basophils % 0.2 % (0.1-2.0); Eosinophils # 0.1 K/mm3 (0.0-0.4); Eosinophils % 0.4 % (0.1-12.0); Hematocrit 43.9 % (37.0-47.0); Hemoglobin 14.2 g/dL (12.2-16.2); Lymphocytes % 5.6 K/mm3 (10-50); Mean Corpuscular HGB Conc 32.4 g/dL (31.8-35.4); Mean Corpuscular Hemoglobin 29.2 pg (27.0-31.2); Mean Platelet Volume 9.4 fl (7.4-10.4); Monocytes # 0.7 K/mm3 (0.1-1.0); Monocytes % 4.2 % (1.7-9.3); Neutrophils # 15.2 K/mm3 (1.8-7.8); Neutrophils % 89.6 % (37.0-80.0); Platelet Count 173 K/mm3 (142-424); Red Blood Count 4.88 M/mm3 (4.20-5.40); Red Cell Distribution Width 13.3 % (11.5-17.5); White Blood Count 16.9 K/mm3 (4.8-10.8)
[2017-09-21 07:32] LABS: Anion Gap 8.4 mEq/L (5-15); Blood Urea Nitrogen 34 mg/dL (7-18); Carbon Dioxide 31 mmol/L (21.0-32.0); Chloride 104 mmol/L (98-107); Creatinine Clearance Estimated 75 mL/min (0-300); Creatinine,Serum 1.18 mg/dL (0.55-1.02); Estimated Glomerular Filt Rate 46 ml/min (>60); GFR (African American) 56 ML/MIN (>60); Glucose 277 mg/dL (74-106); Potassium 4.4 mmoL/L (3.5-5.1); Sodium 139 mmol/L (136-145)
[2017-09-21 07:33] LABS: MANUAL DIFFERENTIAL MANUAL DIFFERENTIAL (MANUAL DIFF)
--- NOTE | 2017-09-21 07:39 | PC.NURSE ---
REPORT GIVEN TO DILMA RN
[2017-09-21 07:52] LABS: Lymphocytes % 9 % (10-50); Monocytes % 2 % (2-9); Neutrophils % 89 % (42-76); RBC Morphology Normal; Total Cells Counted 100
[2017-09-21 07:53] LABS: Platelet Estimate Normal
--- NOTE | 2017-09-21 08:37 | HMH.ACPN2 ---
Internal Medicine - PN: Subj *Date: 09/21/17 *Time: 08:37 Interval history: pt still with wheezing and sig o2 requirement but no fever and has cough and chest pain assoc with inc resp Exam Vital signs and Labs for Last 24 Hours: Temp Pulse Resp BP Pulse Ox 97.6 F 82 22 115/61 91 L 09/21/17 03:48 09/21/17 08:00 09/21/17 08:00 09/21/17 08:00 09/21/17 08:00 Laboratory Results - last 24 hr 09/21/17 07:15: WBC 16.9 H D, RBC 4.88, Hgb 14.2, Hct 43.9, MCV 90.0, MCH 29.2, MCHC 32.4, RDW 13.3, Plt Count 173, MPV 9.4, Neut % (Auto) 89.6 H, Lymph % (Auto) 5.6 L, Bee % (Auto) 4.2, Eos % (Auto) 0.4, Baso % (Auto) 0.2, Neut # (Auto) 15.2 H, Lymph # (Auto) 1.0, Bee # (Auto) 0.7, Eos # (Auto) 0.1, Baso # (Auto) 0.0, Total Counted 100, Neutrophils % (Manual) 89 H, Lymphocytes % (Manual) 9 L, Monocytes % (Manual) 2, Platelet Estimate Normal, RBC Morphology Normal 09/21/17 07:15: Sodium 139, Potassium 4.4, Chloride 104, Carbon Dioxide 31, Anion Gap 8.4, BUN 34 H, Creatinine 1.18 H, Estimated Creat Clear 75, Estimated GFR 46 L, Est GFR ( Amer) 56 L, Glucose 277 H I & O for Last 24 hours: Intake & Output 09/18/17 09/19/17 09/20/17 09/21/17 11:59 11:59 11:59 11:59 Intake Total 820 / 820 1791 / 1791 1672 / 1672 2163 / 2163 Output Total 900 / 900 2049 Balance -80 / -80 -259 / -259 -328 / -328 163 / 163 Weight 214 lb 9 oz 216 lb 6 oz 219 lb 6 oz 217 lb 2 oz - Constitutional no acute distress - *Routine HEENT Exam Head: Present: normocephalic Eye: Present: EOMI, PERRL ENT: Present: mucous membranes dry - *Routine Neck Exam Present: supple - *Routine Respiratory Exam Present: accessory muscle use, prolonged expiratory phase, wheezes - *Routine Cardiovascular Exam Present: murmur, S4 - *Routine Abdominal Exam Present: soft - *Routine Extremities Exam Absent: calf tenderness - *Routine Skin Exam Present: intact - *Routine Neurological Exam Present: alert, oriented X3, CN II-XII intact - Routine Psychiatric Exam Present: normal affect Assessment and Plan (1) COPD (chronic obstructive pulmonary disease) with acute bronchitis Current visit: Yes Status: Acute Category: Medical Code(s): J44.0 - Chronic obstructive pulmonary disease with acute lower respiratory infection; J20.9 - Acute bronchitis, unspecified
--- NOTE | 2017-09-21 08:40 | P.PN_ITS ---
Internal Medicine - PN: Subj *Date: 09/21/17 *Time: 08:37 Interval history: pt still with wheezing and sig o2 requirement but no fever and has cough and chest pain assoc with inc resp Exam Vital signs and Labs for Last 24 Hours: Temp Pulse Resp BP Pulse Ox 97.6 F 82 22 115/61 91 L 09/21/17 03:48 09/21/17 08:00 09/21/17 08:00 09/21/17 08:00 09/21/17 08:00 Laboratory Results - last 24 hr 09/21/17 07:15: WBC 16.9 H D, RBC 4.88, Hgb 14.2, Hct 43.9, MCV 90.0, MCH 29.2, MCHC 32.4, RDW 13.3, Plt Count 173, MPV 9.4, Neut % (Auto) 89.6 H, Lymph % (Auto ) 5.6 L, Fleming % (Auto) 4.2, Eos % (Auto) 0.4, Baso % (Auto) 0.2, Neut # (Auto) 15.2 H, Lymph # (Auto) 1.0, Fleming # (Auto) 0.7, Eos # (Auto) 0.1, Baso # (Auto) 0.0, Total Counted 100, Neutrophils % (Manual) 89 H, Lymphocytes % (Manual) 9 L , Monocytes % (Manual) 2, Platelet Estimate Normal, RBC Morphology Normal 09/21/17 07:15: Sodium 139, Potassium 4.4, Chloride 104, Carbon Dioxide 31, Anion Gap 8.4, BUN 34 H, Creatinine 1.18 H, Estimated Creat Clear 75, Estimated GFR 46 L, Est GFR ( Amer) 56 L, Glucose 277 H I & O for Last 24 hours: Intake & Output 09/18/17 09/19/17 09/20/17 09/21/17 11:59 11:59 11:59 11:59 Intake Total 820 / 820 1791 / 1791 1672 / 1672 2163 / 2163 Output Total 900 / 900 2049 Balance -80 / -80 -259 / -259 -328 / -328 163 / 163 Weight 214 lb 9 oz 216 lb 6 oz 219 lb 6 oz 217 lb 2 oz - Constitutional no acute distress - *Routine HEENT Exam Head: Present: normocephalic Eye: Present: EOMI, PERRL ENT: Present: mucous membranes dry - *Routine Neck Exam Present: supple - *Routine Respiratory Exam Present: accessory muscle use, prolonged expiratory phase, wheezes - *Routine Cardiovascular Exam Present: murmur, S4 - *Routine Abdominal Exam Present: soft - *Routine Extremities Exam Absent: calf tenderness - *Routine Skin Exam Present: intact - *Routine Neurological Exam Present: alert, oriented X3, CN II-XII intact - Routine Psychiatric Exam Present: normal affect Assessment and Plan (1) COPD (chronic obstructive pulmonary disease) with acute bronchitis Current visit: Yes Status: Acute Category: Medical Code(s): J44.0 - Chronic obstructive pulmonary disease with acute lower respiratory infection; J20.9 - Acute bronchitis, unspecified
[2017-09-21 10:12] LABS: ABG Base Excess 2.6 mmol/L (-2.4-2.3); ABG HCO3 27.8 mmhg (22.0-26.0); ABG Oxygen Saturation 92 % (90-100); ABG PCO2 48.1 mmhg (35.0-45.0); ABG PH 7.38 mmol/L (7.35-7.45); ABG PO2 62.8 mmhg (80-100); ABG TCO2 29.2 mmhg (23-27)
[2017-09-21 10:15] LABS: Source Left Brachial
--- NOTE | 2017-09-21 15:40 | DIET.NUTRFU ---
po intakes 87% avg for past 6 meals. She is on a low sodium diet. Elev glucose each morning, 200, 273,183,277. Spoke with pt and encouraged use of sweeteners. Pt did not acknowledge due to level of alertness. She is on steroids. Discussed home meals during care plan rounds. Plans to sign pt up for meals on wheels. Will continue to monitor.
--- NOTE | 2017-09-21 16:20 | SW/DCPLANNER ---
Addendum entered by Mirna Ledesma 09/21/17 17:36: I have spoke with Rafael at [facility] to inform him that this patient would like to change from [facility] to him due to packaging of medications. I have also left a packet with med/surg for [facility] for rolling walker incase if patient discharges over weekend. I will follow up with this patient on Sunday regarding meals and home health. Original Note: Visited with patient this afternoon...during patient care rounds patient stated that she could benefit from home health, a walker, meal program, new chair, and a pulse ox. Patient also stated that she could benefit from assistance with her medication stating that I occasionally have issues taking my medication correctly . After care rounds I went back and spoke with patient regarding needs for once she is ready for discharge. I explained to patient about home health and stated that I would set this up for patient at time of discharge (unless discharges over weekend I will set up on Sunday). Patient also had a need for a rolling walker and a pulse ox for her finger. I have faxed patient information to [facility] for a rolling walker...however I did explain to patient that insurance will not pay for pulse ox but home health could check pulse ox two-three times a week when they are at her house. At time of discharge or on Sunday if discharge over weekend I will call and set patient up with [facility]. I have also explained to patient that a chair will not be covered by insurance and patient has declined. I will contact patients pharmacy ([facility]) and if they do not individually package patient medication by day patient has stated that it would be fine to change her pharmacy to [facility]. I will follow up with patient once I have set up home health, set up rolling walker and meal program, and I will let patient know which pharmacy she will be receiving her medication from at time of discharge or on Sunday.
--- NOTE | 2017-09-21 16:26 | PC.NURSE ---
DUE TO PATIENT'S COPD, A ROLLING WALKER IS NECESSARY FOR AMBULATION AND SAFETY
--- NOTE | 2017-09-21 17:00 | PC.NURSE ---
PT UNSTEADY ON FEET AND WOULD BENEFIT FROM A ROLLING WALKER RATHER THAN A CANE R/T COPD DIAGNOSIS
[2017-09-22] VITALS (9 sets, daily range): BP systolic 112–132; BP diastolic 65–75; PULSE 66–89; RESP 20–22; TEMP 36.6–37.2; O2SAT 89–95
--- NOTE | 2017-09-22 05:27 | PC.NURSE ---
PT RESTED WELL THIS SHIFT. WHEEZES NOTED UPON AUSCULTATION. PT C/O OF FEELING SUFFOCATED X1, O2 SAT WAS 93% ON 4L NC WITH NO VISIBLE DISTRESS NOTED, AND REQUESTED A BREATHING TREATMENT. CONTACTED RT AND NEB WAS GIVEN PRN, TOLERATED WELL WITH NO OTHER C/O. VSS. WILL CONT. TO MONITOR.
--- NOTE | 2017-09-22 08:48 | HMH.ACPN2 ---
Internal Medicine - PN: Subj *Date: 09/22/17 *Time: 08:48 Interval history: doing better today -not on mask Exam Vital signs and Labs for Last 24 Hours: Temp Pulse Resp BP Pulse Ox 98.5 F 70 22 112/65 92 L 09/22/17 07:37 09/22/17 07:37 09/22/17 07:37 09/22/17 07:37 09/22/17 08:00 Laboratory Results - last 24 hr 09/21/17 10:00: Specimen Source Left brachial, O2 % 35% venti, ABG pH 7.38, ABG pCO2 48.1 H, ABG pO2 62.8 L, ABG HCO3 27.8 H, ABG Total CO2 29.2 H, ABG O2 Saturation 92, ABG Base Excess 2.6 H, Roman Test Unacceptable I & O for Last 24 hours: Intake & Output 09/19/17 09/20/17 09/21/17 09/22/17 11:59 11:59 11:59 11:59 Intake Total 1791 / 1791 1672 / 1672 2163 / 2163 2053 Output Total 2049 1000 / 1000 Balance -259 / -259 -328 / -328 163 / 163 1054 / 1054 Weight 216 lb 6 oz 219 lb 6 oz 217 lb 2 oz 219 lb 3 oz - Constitutional no acute distress, obese - *Routine HEENT Exam Head: Present: normocephalic Eye: Present: EOMI, PERRL ENT: Present: mucous membranes dry - *Routine Neck Exam Present: supple - *Routine Respiratory Exam Present: prolonged expiratory phase, wheezes. Absent: respiratory distress - *Routine Cardiovascular Exam Present: RRR, murmur, S4 - *Routine Extremities Exam Absent: calf tenderness - *Routine Skin Exam Present: intact - *Routine Neurological Exam Present: alert, CN II-XII intact - Routine Psychiatric Exam Present: normal affect Assessment and Plan (1) COPD (chronic obstructive pulmonary disease) with acute bronchitis Current visit: Yes Status: Acute Category: Medical Code(s): J44.0 - Chronic obstructive pulmonary disease with acute lower respiratory infection; J20.9 - Acute bronchitis, unspecified
--- NOTE | 2017-09-22 17:53 | PC.NURSE ---
PT IS ALERT AND ORIENTED X4. NO CHANGE IN CONDITION FROM PREVIOUS ASSESSMENT. PT REQUESTED TO TURN IVF OFF FOR A SHORT BREAK TO AMBULATE AND SHOWER. LUNGS CONTINUE TO HAVE INSPIRATORY AND EXPIRATORY RHONCHI THROUGHOUT.NO COMPLAINTS VOICED. NO S/S OF DISTRESS. VSS. FALL PREVENTION EDUCATION COMPLETED. IV IS PATENT AND SECURE. WILL CONTINUE TO MONITOR.
[2017-09-23] VITALS (12 sets, daily range): BP systolic 108–134; BP diastolic 54–70; PULSE 69–88; RESP 20–24; TEMP 36.7–36.9; O2SAT 88–96
--- NOTE | 2017-09-23 04:03 | PC.NURSE ---
pt has rested well this shift, denies pain, c/o SOA at rest, rhonchi and expiratory wheezing noted on auscultation, pt has maintained O2 sats at or above 90 on 3 L NC, bowel sounds are active, vss, no acute distress noted a this time, call light in reach, will continue to monitor.
--- NOTE | 2017-09-23 08:41 | HMH.ACPN2 ---
Internal Medicine - PN: Subj *Date: 09/23/17 *Time: 08:41 Interval history: doing better- sitting in chair Exam Vital signs and Labs for Last 24 Hours: Temp Pulse Resp BP Pulse Ox 98.2 F 70 20 111/56 93 L 09/23/17 08:00 09/23/17 08:00 09/23/17 08:00 09/23/17 08:00 09/23/17 08:00 I & O for Last 24 hours: Intake & Output 09/20/17 09/21/17 09/22/17 09/23/17 11:59 11:59 11:59 11:59 Intake Total 1672 / 1672 2163 / 2163 2054 / 2054 1705 / 1705 Output Total 1999 1000 / 1000 4350 / 4350 Balance -328 / -328 163 / 163 1054 / 1054 -2645 / -2645 Weight 219 lb 6 oz 217 lb 2 oz 219 lb 3 oz - Constitutional no acute distress - *Routine HEENT Exam Head: Present: normocephalic Eye: Present: EOMI, PERRL ENT: Present: mucous membranes dry - *Routine Neck Exam Present: supple - *Routine Respiratory Exam Present: prolonged expiratory phase. Absent: respiratory distress - *Routine Cardiovascular Exam Present: RRR, murmur - *Routine Abdominal Exam Present: soft - *Routine Skin Exam Present: intact - *Routine Neurological Exam Present: alert, oriented X3, CN II-XII intact - Routine Psychiatric Exam Present: normal affect Assessment and Plan (1) COPD (chronic obstructive pulmonary disease) with acute bronchitis Current visit: Yes Status: Acute Category: Medical Code(s): J44.0 - Chronic obstructive pulmonary disease with acute lower respiratory infection; J20.9 - Acute bronchitis, unspecified (2) Renal insufficiency Current visit: Yes Status: Acute Category: Medical Code(s): N28.9 - Disorder of kidney and ureter, unspecified
[2017-09-23 09:20] LABS: Basophils % 0.1 % (0.1-2.0); Eosinophils % 0.1 % (0.1-12.0); Hematocrit 43.4 % (37.0-47.0); Hemoglobin 13.5 g/dL (12.2-16.2); Lymphocytes % 5.6 K/mm3 (10-50); Mean Corpuscular Hemoglobin 28.1 pg (27.0-31.2); Mean Corpuscular Volume 90.6 fl (81-99); Mean Platelet Volume 9.1 fl (7.4-10.4); Monocytes # 0.7 K/mm3 (0.1-1.0); Monocytes % 4.1 % (1.7-9.3); Neutrophils # 15.7 K/mm3 (1.8-7.8); Neutrophils % 90.1 % (37.0-80.0); Platelet Count 157 K/mm3 (142-424); Red Blood Count 4.79 M/mm3 (4.20-5.40); Red Cell Distribution Width 13.1 % (11.5-17.5); White Blood Count 17.4 K/mm3 (4.8-10.8)
[2017-09-23 09:22] LABS: Anion Gap 9.5 mEq/L (5-15); Blood Urea Nitrogen 31 mg/dL (7-18); Carbon Dioxide 31 mmol/L (21.0-32.0); Chloride 104 mmol/L (98-107); Creatinine Clearance Estimated 77 mL/min (0-300); Creatinine,Serum 1.16 mg/dL (0.55-1.02); Estimated Glomerular Filt Rate 47 ml/min (>60); GFR (African American) 57 ML/MIN (>60); Glucose 352 mg/dL (74-106); Potassium 4.5 mmoL/L (3.5-5.1); Sodium 140 mmol/L (136-145)
[2017-09-23 09:59] LABS: MANUAL DIFFERENTIAL MANUAL DIFFERENTIAL (MANUAL DIFF)
[2017-09-23 10:13] LABS: Lymphocytes % 10 % (10-50); Monocytes % 4 % (2-9); Neutrophils % 86 % (42-76); Platelet Estimate Normal; RBC Morphology Normal; Total Cells Counted 100
[2017-09-24] VITALS (8 sets, daily range): BP systolic 102–127; BP diastolic 68–69; PULSE 67–71; RESP 18–24; TEMP 36.4–36.8; O2SAT 90–95
--- NOTE | 2017-09-24 03:22 | PC.NURSE ---
no changes noted from previous assessment, pt has rested well this shift, denies pain, pt still states she is SOA, expiratory wheezing and rhonchi noted to auscultation, pt maintaining O2 sats at or above 90 on 3L, pt has been ambulating in room and tolerating well, bowel sounds active, vss, no acute distress noted at this time, call light in reach, will continue to monitor.
--- NOTE | 2017-09-24 12:29 | HMH.DCSUM ---
General - General Admission date: 09/16/17 Discharge date: 09/24/17 HPI HPI: this wf who has known copd and presented with increased resp sx -This is 62 years old white female COPD who was seen 2 days ago was prescribed prednisone she was unable to obtain her medications due to pharmacy approval procedure. She contacted the ER it was sent to the clinic pharmacy and she still without medication. She continued to have respiratory difficulty and she was brought by the EMS. Hospital Course Hospital Course: this wf progressed slowly with ivf and abx with possibly of viral illness and had assoc copd - she responded to treatment and was dec o2 requirement and was able to ambulate and do adl and iadl- Objective Vital signs: Temp Pulse Resp BP Pulse Ox 97.6 F 70 18 119/68 90 L 09/24/17 07:58 09/24/17 09:42 09/24/17 09:15 09/24/17 07:58 09/24/17 09:42 no acute distress - *Routine HEENT Exam Head: Present: normocephalic Eye: Present: EOMI, PERRL ENT: Present: mucous membranes dry - *Routine Neck Exam Absent: JVD - *Routine Respiratory Exam Present: accessory muscle use. Absent: rhonchi - *Routine Cardiovascular Exam Present: RRR, murmur, S4 - *Routine Abdominal Exam Present: soft - *Routine Extremities Exam Absent: calf tenderness - *Routine Skin Exam Absent: rash - *Routine Neurological Exam Present: alert, CN II-XII intact - Routine Psychiatric Exam Present: normal affect DS: Diagnosis - Discharge Diagnosis (1) COPD (chronic obstructive pulmonary disease) with acute bronchitis Status: Acute (2) Renal insufficiency Status: Acute (3) RSV (respiratory syncytial virus pneumonia) Status: Acute Discharge Plan - Patient Discharge Instructions ACTIVITY: Continue current activity DIET: continue same diet Patient Instructions: Respiratory Syncytial Virus - Follow up Plan Disposition: Home, Self-[facility] Medications: Home Medications Medication Instructions Recorded Confirmed Type Aspirin [Aspir 81] 81 mg PO DAILY 08/26/17 09/16/17 History Atorvastatin Calcium [Atorvastatin 80 mg PO HS 08/26/17 09/16/17 History 80mg Tab] Budesonide/Formoterol Fumarate 2 puffs IH DAILY 08/26/17 09/16/17 History [Symbicort 160-4.5 Mcg Inhaler] Furosemide [Lasix 40mg tablet] 40 mg PO DAILY 08/26/17 09/16/17 History Losartan Potassium 50 mg PO DAILY 08/26/17 09/16/17 History Metoprolol Tartrate [Lopressor 50 mg PO BID 08/26/17 09/16/17 History 50mg tablet] Montelukast Sodium [Montelukast 10 mg PO HS 08/26/17 09/16/17 History 10mg Tab] Omeprazole [Omeprazole 40mg 40 mg PO DAILY 08/26/17 09/16/17 History Capsule] Ropinirole HCl [Requip] 2 mg PO HS 08/26/17 09/16/17 History Spironolactone [Spironolactone 50 mg PO HS 08/26/17 09/16/17 History 50mg Tab] buPROPion HCl [Bupropion HCl Sr] 150 mg PO BID 08/26/17 09/16/17 History Gabapentin [Neurontin 600mg 600 mg PO TID 09/14/17 09/16/17 History tablet] Tizanidine HCl [Zanaflex] 4 mg PO BID 09/17/17 09/16/17 History Prescriptions/Medication Reconciliation: New Benzonatate [Benzonatate 100mg cap] 100 mg PO TID #30 cap predniSONE [Prednisone 20mg Tab] 20 mg PO DAILY #10 tab Azithromycin [Zithromax 250mg tab] 250 mg PO DAILY #21 tab Continue Metoprolol Tartrate [Lopressor 50mg tablet] 50 mg PO BID Ropinirole HCl [Requip] 2 mg PO HS Montelukast Sodium [Montelukast 10mg Tab] 10 mg PO HS Spironolactone [Spironolactone 50mg Tab] 50 mg PO HS Budesonide/Formoterol Fumarate [Symbicort 160-4.5 Mcg Inhaler] 2 puffs IH DAILY Losartan Potassium 50 mg PO DAILY Albuterol Sulfate [Albuterol HFA Inhaler] 1 - 2 puffs IH Q4-6H PRN #1 inh PRN Reason: Shortness Of Breath Or Wheezing Aspirin [Aspir 81] 81 mg PO DAILY Atorvastatin Calcium [Atorvastatin 80mg Tab] 80 mg PO HS Furosemide [Lasix 40mg tablet] 40 mg PO DAILY Omeprazole [Omeprazole 40mg
--- NOTE | 2017-09-24 12:35 | P.DS_ITS ---
General - General Admission date: 09/16/17 Discharge date: 09/24/17 HPI HPI: this wf who has known copd and presented with increased resp sx -This is 62 years old white female COPD who was seen 2 days ago was prescribed prednisone she was unable to obtain her medications due to pharmacy approval procedure. She contacted the ER it was sent to the clinic pharmacy and she still without medication. She continued to have respiratory difficulty and she was brought by the EMS. Hospital Course Hospital Course: this wf progressed slowly with ivf and abx with possibly of viral illness and had assoc copd - she responded to treatment and was dec o2 requirement and was able to ambulate and do adl and iadl- Objective Vital signs: Temp Pulse Resp BP Pulse Ox 97.6 F 70 18 119/68 90 L 09/24/17 07:58 09/24/17 09:42 09/24/17 09:15 09/24/17 07:58 09/24/17 09:42 no acute distress - *Routine HEENT Exam Head: Present: normocephalic Eye: Present: EOMI, PERRL ENT: Present: mucous membranes dry - *Routine Neck Exam Absent: JVD - *Routine Respiratory Exam Present: accessory muscle use. Absent: rhonchi - *Routine Cardiovascular Exam Present: RRR, murmur, S4 - *Routine Abdominal Exam Present: soft - *Routine Extremities Exam Absent: calf tenderness - *Routine Skin Exam Absent: rash - *Routine Neurological Exam Present: alert, CN II-XII intact - Routine Psychiatric Exam Present: normal affect DS: Diagnosis - Discharge Diagnosis (1) COPD (chronic obstructive pulmonary disease) with acute bronchitis Status: Acute (2) Renal insufficiency Status: Acute (3) RSV (respiratory syncytial virus pneumonia) Status: Acute Discharge Plan - Patient Discharge Instructions ACTIVITY: Continue current activity DIET: continue same diet Patient Instructions: Respiratory Syncytial Virus - Follow up Plan Disposition: Home, Self-Group Home Medications: Home Medications Medication Instructions Recorded Confirmed Type Aspirin [Aspir 81] 81 mg PO DAILY 08/26/17 09/16/17 History Atorvastatin Calcium [Atorvastatin 80 mg PO HS 08/26/17 09/16/17 History 80mg Tab] Budesonide/Formoterol Fumarate 2 puffs IH DAILY 08/26/17 09/16/17 History [Symbicort 160-4.5 Mcg Inhaler] Furosemide [Lasix 40mg tablet] 40 mg PO DAILY 08/26/17 09/16/17 History Losartan Potassium 50 mg PO DAILY 08/26/17 09/16/17 History Metoprolol Tartrate [Lopressor 50 mg PO BID 08/26/17 09/16/17 History 50mg tablet] Montelukast Sodium [Montelukast 10 mg PO HS 08/26/17 09/16/17 History 10mg Tab] Omeprazole [Omeprazole 40mg 40 mg PO DAILY 08/26/17 09/16/17 History Capsule] Ropinirole HCl [Requip] 2 mg PO HS 08/26/17 09/16/17 History Spironolactone [Spironolactone 50 mg PO HS 08/26/17 09/16/17 History 50mg Tab] buPROPion HCl [Bupropion HCl Sr] 150 mg PO BID 08/26/17 09/16/17 History Gabapentin [Neurontin 600mg 600 mg PO TID 09/14/17 09/16/17 History tablet] Tizanidine HCl [Zanaflex] 4 mg PO BID 09/17/17 09/16/17 History Prescriptions/Medication Reconciliation: New Benzonatate [Benzonatate 100mg cap] 100 mg PO TID #30 cap predniSONE [Prednisone 20mg Tab] 20 mg PO DAILY #10 tab Azithromycin [Zithromax 250mg tab] 250 mg PO DAILY #21 tab
--- NOTE | 2017-09-24 13:04 | SW/DCPLANNER ---
Addendum entered by Mirna Ledesma 09/24/17 13:32: Karolina from [facility] has also followed up and stated they will begin services for this patient tomorrow. Original Note: Addendum entered by Mirna Ledesma 09/24/17 13:29: I have spoke with Porfirio [facility] regarding [facility]. They will be contacting this patient in the AM regarding programs that this patient is applicable for...patient is also aware. Original Note: I have followed up with this patient this morning. Patient stated that she is ready to discharge home today. Patient has also stated that she will be transported home by ex sister in law. Patient stated that she does not feel that a walker is needed at this time. I have faxed patient information to [facility] of for a home health nursing evaluation and patient has agreed with this plan. Patient will [facility] from [facility] to [facility] due to the ability of packaging medications. I will also look into meal assistance programs for this patient. Patient will discharge home this afternoon.
== END 2017-09-24 16:30 | disposition home or self-care (01) | DRG 190 ==
LOC: ER 18:20 → 2ND 09-17 07:18
PROVIDERS: Admitting Provider Internal Medicine Adolescent Medicine; Emergency Provider Emergency Medicine; Family Provider Emergency Medicine; PCP Emergency Medicine; Visit Provider Emergency Medicine
DX: J44.1 Chronic obstructive pulmonary disease with (acute) exacerbation (principal); J12.1 Respiratory syncytial virus pneumonia; I50.9 Heart failure, unspecified; J20.9 Acute bronchitis, unspecified; J44.0 Chronic obstructive pulmonary disease with (acute) lower respiratory infection; Z72.0 Tobacco use; I25.10 Atherosclerotic heart disease of native coronary artery without angina pectoris; Z95.0 Presence of cardiac pacemaker
CPT/HCPCS: 36415; 71045; 71046; 80048; 80053; 82550; 82553; 82803; 83735; 83880; 84484; 85007; 85025; 87275; 87276; 87486; 87581; 87633; 87798; 93005; 93041; 93306; 94640; 94760; 94761; 96365; 96374; 96375; 97162; 97165; 99281; 99284; 99406; J1956

== ENCOUNTER → 2017-10-02 14:56 | Outpatient (POV) | payer MEDICAID, SELFPAY | PROVIDERS: Family Provider Emergency Medicine; PCP Emergency Medicine; Visit Provider Internal Medicine | DX: Z00.00 Encounter for general adult medical examination without abnormal findings (principal) ==

== ENCOUNTER → 2017-12-03 14:43 | Outpatient (POV) | payer MEDICAID, SELFPAY ==
[2017-12-03 15:09] VITALS: BP 96/72; PULSE 71; RESP 18; TEMP 36.6; O2SAT 98; BMI 32.1
--- NOTE | 2017-12-03 15:20 | HMH.PAINSOAP ---
[facility] Pain Management SOAP Note Subjective:: Patient is a pleasant 62-year-old white female who presents today for follow-up. Patient has been getting injections in the past. Patient is only an injection candidate due to failed pill count. Patient did ask me if she can have narcotic medications and I discussed with her that we would never be writing her narcotic medications. Patient is tested in getting another lumbar epidural steroid injection. Patient states that it helps up to 80% for several months. Patient's tried and failed anti-inflammatories, medications, therapy. Patient describes her low back pain is constant, dull, aching. She she states that it increases with activity. ROS General: no recent weight change, no fever, no sleep disturbances Respiratory: no cough, no shortness of air, no recurring pulmonary infections Cardiovascular/Peripheral Vascular: No chest pain, No palpitations, no edema, no shortness of breath. Gastrointestinal: no incontinence, normal bowel movements reported Genitourinary: no incontinence Musculoskeletal: Back, bilateral leg pain Psychiatric: normal mood/ affect Neurological: [denies weakness in extremities], [denies balance issues] Objective:: Physical Exam General: Alert and oriented x3, no acute distress, pleasant and cooperative, [on room air] Lungs: Resps E/U, Symmetrical chest expansion, Eyes: PERRL Musculoskeletal: Flexion and extension of lumbar spine somewhat guarded secondary to pain, deep tendon reflexes normal, strength in upper and lower extremities [5/5], [abnormal gait noted] Positive straight leg raise test bilaterally at 30? Neurological: speech clear, erp project manager equal, no gross sensory deficits Assessment:: Degenerative disc disease of the lumbar spine with lumbar radiculopathy Plan:: We will schedule L4-L5 lumbar epidural steroid injection for the patient. I believe that this would be beneficial given the efficacy of them in the past. Patient is not a narcotic candidate due to failed pill count. Patient has tried and failed medications, anti-inflammatories, therapy. I will follow-up with her after her injection. This note was dictated using voice recognition software and may contain errors or omissions
--- NOTE | 2017-12-03 15:23 | P.CONS_ITS ---
[facility] Pain Management SOAP Note Subjective:: Patient is a pleasant 62-year-old white female who presents today for follow- up. Patient has been getting injections in the past. Patient is only an injection candidate due to failed pill count. Patient did ask me if she can have narcotic medications and I discussed with her that we would never be writing her narcotic medications. Patient is tested in getting another lumbar epidural steroid injection. Patient states that it helps up to 80% for several months. Patient's tried and failed anti-inflammatories, medications, therapy. Patient describes her low back pain is constant, dull, aching. She she states that it increases with activity. ROS General: no recent weight change, no fever, no sleep disturbances Respiratory: no cough, no shortness of air, no recurring pulmonary infections Cardiovascular/Peripheral Vascular: No chest pain, No palpitations, no edema, no shortness of breath. Gastrointestinal: no incontinence, normal bowel movements reported Genitourinary: no incontinence Musculoskeletal: Back, bilateral leg pain Psychiatric: normal mood/ affect Neurological: [denies weakness in extremities], [denies balance issues] Objective:: Physical Exam General: Alert and oriented x3, no acute distress, pleasant and cooperative, [ on room air] Lungs: Resps E/U, Symmetrical chest expansion, Eyes: PERRL Musculoskeletal: Flexion and extension of lumbar spine somewhat guarded secondary to pain, deep tendon reflexes normal, strength in upper and lower extremities [5/5], [abnormal gait noted] Positive straight leg raise test bilaterally at 30? Neurological: speech clear, deliver driver equal, no gross sensory deficits Assessment:: Degenerative disc disease of the lumbar spine with lumbar radiculopathy Plan:: We will schedule L4-L5 lumbar epidural steroid injection for the patient. I believe that this would be beneficial given the efficacy of them in the past. Patient is not a narcotic candidate due to failed pill count. Patient has tried and failed medications, anti-inflammatories, therapy. I will follow-up with her after her injection. This note was dictated using voice recognition software and may contain errors or omissions
== END ==
PROVIDERS: Family Provider Emergency Medicine; PCP Emergency Medicine; Visit Provider Clinical Nurse Specialist Family Health
DX: M54.16 Radiculopathy, lumbar region (principal)
CPT/HCPCS: 99212

== ENCOUNTER → 2018-01-28 10:27 | Outpatient (REF) | payer MEDICAID, SELFPAY ==
[2018-01-28 14:23] LABS: Amphetamine/Metha Screen,Urine Negative ng/mL (<1000); Barbiturates Screen,Urine Negative ng/mL (<200); Benzodiazepines Screen,Urine Negative ng/mL (<200); Cannabinoid Screen,Urine Negative ng/mL (<50); Cocaine Screen,Urine Negative ng/mL (<300); Methadone Screen,Urine Negative ng/mL (<300); Opiate Screen,Urine Positive ng/mL (<300); Phencyclidine Screen,Urine Negative ng/mL (<25)
[2018-01-28 14:39] LABS: Anion Gap 9.5 mEq/L (5-15); Blood Urea Nitrogen 20 mg/dL (7-18); Calcium 8.7 mg/dL (8.5-10.1); Carbon Dioxide 31 mmol/L (21.0-32.0); Chloride 106 mmol/L (98-107); Creatinine,Serum 1.05 mg/dL (0.55-1.02); Estimated Glomerular Filt Rate 53 ml/min (>60); GFR (African American) 64 ML/MIN (>60); Glucose 106 mg/dL (74-106); Potassium 4.5 mmoL/L (3.5-5.1); Sodium 142 mmol/L (136-145); Thyroid Stimulating Hormone 2.39 uIU/ml (0.358-3.740)
== END ==
LOC: LAB 10:27
PROVIDERS: Visit Provider Emergency Medicine
DX: J44.0 Chronic obstructive pulmonary disease with (acute) lower respiratory infection (principal); J20.9 Acute bronchitis, unspecified; Z79.899 Other long term (current) drug therapy
CPT/HCPCS: 80048; 80305; 84439; 84443

== ENCOUNTER → 2018-02-04 14:04 | Outpatient (POV) | payer MEDICAID, SELFPAY ==
[2018-02-04 14:38] VITALS: BP 91/51; PULSE 70; RESP 18; O2SAT 99; BMI 31.7
--- NOTE | 2018-02-04 15:37 | HMH.PAINSOAP ---
[facility] Pain Management SOAP Note Subjective:: This patient is a pleasant 62-year-old white female who presents today for follow-up after her most recent lumbar epidural steroid injection. Patient states she did not get much relief from her injection. Patient states most of her pain is in her low back. Patient states that any twisting movement makes it worse. She rates her pain a 7 out of 10 today. Patient is asking for pain medication. Patient has been put on the nonnarcotic list due to failed pill count in the past. I discussed with her that this would not be an option. Patient is uninterested in neuro stimulation. ROS General: no recent weight change, no fever, no sleep disturbances Respiratory: no cough, no shortness of air, no recurring pulmonary infections Cardiovascular/Peripheral Vascular: No chest pain, No palpitations, no edema, no shortness of breath. Gastrointestinal: no incontinence, normal bowel movements reported Genitourinary: no incontinence Musculoskeletal: Back pain Psychiatric: normal mood/ affect Neurological: [denies weakness in extremities], [denies balance issues] Objective:: Physical Exam General: Alert and oriented x3, no acute distress, pleasant and cooperative, [on room air] Lungs: Resps E/U, Symmetrical chest expansion, Eyes: PERRL Musculoskeletal: Flexion and extension of lumbar spine somewhat guarded secondary to pain, deep tendon reflexes normal, strength in upper and lower extremities [5/5], [abnormal gait noted], positive facet loading of the lumbar spine Neurological: speech clear, bridge mechanic equal, no gross sensory deficits Assessment:: Degenerative disc disease lumbar spine with lumbar radiculopathy symptoms and facet arthropathy of the lumbar spine Plan:: We will schedule medial branch block at L3-L4 L4-L5 L5-S1 for the patient. Given her axial pain I believe that this may be beneficial. Patient is not on any anticoagulation therapy patient's tried and failed other therapy such as stretching. This note was dictated using voice recognition software and may contain errors or omissions
--- NOTE | 2018-02-04 15:40 | P.CONS_ITS ---
[facility] Pain Management SOAP Note Subjective:: This patient is a pleasant 62-year-old white female who presents today for follow-up after her most recent lumbar epidural steroid injection. Patient states she did not get much relief from her injection. Patient states most of her pain is in her low back. Patient states that any twisting movement makes it worse. She rates her pain a 7 out of 10 today. Patient is asking for pain medication. Patient has been put on the nonnarcotic list due to failed pill count in the past. I discussed with her that this would not be an option. Patient is uninterested in neuro stimulation. ROS General: no recent weight change, no fever, no sleep disturbances Respiratory: no cough, no shortness of air, no recurring pulmonary infections Cardiovascular/Peripheral Vascular: No chest pain, No palpitations, no edema, no shortness of breath. Gastrointestinal: no incontinence, normal bowel movements reported Genitourinary: no incontinence Musculoskeletal: Back pain Psychiatric: normal mood/ affect Neurological: [denies weakness in extremities], [denies balance issues] Objective:: Physical Exam General: Alert and oriented x3, no acute distress, pleasant and cooperative, [ on room air] Lungs: Resps E/U, Symmetrical chest expansion, Eyes: PERRL Musculoskeletal: Flexion and extension of lumbar spine somewhat guarded secondary to pain, deep tendon reflexes normal, strength in upper and lower extremities [5/5], [abnormal gait noted], positive facet loading of the lumbar spine Neurological: speech clear, food editor equal, no gross sensory deficits Assessment:: Degenerative disc disease lumbar spine with lumbar radiculopathy symptoms and facet arthropathy of the lumbar spine Plan:: We will schedule medial branch block at L3-L4 L4-L5 L5-S1 for the patient. Given her axial pain I believe that this may be beneficial. Patient is not on any anticoagulation therapy patient's tried and failed other therapy such as stretching. This note was dictated using voice recognition software and may contain errors or omissions
== END ==
PROVIDERS: Family Provider Emergency Medicine; PCP Emergency Medicine; Visit Provider Clinical Nurse Specialist Family Health
DX: M54.16 Radiculopathy, lumbar region (principal)
CPT/HCPCS: 99212

== ENCOUNTER → 2018-03-18 14:13 | Outpatient (POV) | payer MEDICAID, SELFPAY ==
[2018-03-18 14:31] VITALS: BP 102/60; PULSE 70; RESP 18; O2SAT 98; BMI 32.9
--- NOTE | 2018-03-18 14:38 | HMH.PAINSOAP ---
[facility] Pain Management SOAP Note Subjective:: Patient is a pleasant 62-year-old white female who we are treating for low back pain secondary to degenerative disc disease of the lumbar spine with lumbar spondylosis and facet arthropathy. Patient is following up after medial branch block at L3-L4 L4-L5 L5-S1 bilaterally. Patient is doing well at this time. Patient states she has a slight increase in her pain due to her pulling weeds this morning. Patient is not on any anti-inflammatories at this time. She rates her pain an 8 out of 10 today ROS General: no recent weight change, no fever, no sleep disturbances Respiratory: no cough, no shortness of air, no recurring pulmonary infections Cardiovascular/Peripheral Vascular: No chest pain, No palpitations, no edema, no shortness of breath. Gastrointestinal: no incontinence, normal bowel movements reported Genitourinary: no incontinence Musculoskeletal: Back pain Psychiatric: normal mood/ affect Neurological: [denies weakness in extremities], [denies balance issues] Objective:: Physical Exam General: Alert and oriented x3, no acute distress, pleasant and cooperative, [on room air] Lungs: Resps E/U, Symmetrical chest expansion, Eyes: PERRL Musculoskeletal: Flexion and extension of lumbar spine somewhat guarded secondary to pain, deep tendon reflexes normal, strength in upper and lower extremities [5/5], [abnormal gait noted] Neurological: speech clear, transcribing operators supervisor equal, no gross sensory deficits Assessment:: Degenerative disc disease lumbar spine with lumbar radiculopathy and lumbar spondylosis Plan:: We will follow-up with the patient in 2 months and reassess her symptoms at that time. He has been instructed to call the office if she has any issues prior to next appointment. This note was dictated using voice recognition software and may contain errors or omissions
--- NOTE | 2018-03-18 14:41 | P.CONS_ITS ---
[facility] Pain Management SOAP Note Subjective:: Patient is a pleasant 62-year-old white female who we are treating for low back pain secondary to degenerative disc disease of the lumbar spine with lumbar spondylosis and facet arthropathy. Patient is following up after medial branch block at L3-L4 L4-L5 L5-S1 bilaterally. Patient is doing well at this time. Patient states she has a slight increase in her pain due to her pulling weeds this morning. Patient is not on any anti-inflammatories at this time. She rates her pain an 8 out of 10 today ROS General: no recent weight change, no fever, no sleep disturbances Respiratory: no cough, no shortness of air, no recurring pulmonary infections Cardiovascular/Peripheral Vascular: No chest pain, No palpitations, no edema, no shortness of breath. Gastrointestinal: no incontinence, normal bowel movements reported Genitourinary: no incontinence Musculoskeletal: Back pain Psychiatric: normal mood/ affect Neurological: [denies weakness in extremities], [denies balance issues] Objective:: Physical Exam General: Alert and oriented x3, no acute distress, pleasant and cooperative, [ on room air] Lungs: Resps E/U, Symmetrical chest expansion, Eyes: PERRL Musculoskeletal: Flexion and extension of lumbar spine somewhat guarded secondary to pain, deep tendon reflexes normal, strength in upper and lower extremities [5/5], [abnormal gait noted] Neurological: speech clear, engineer/conductor equal, no gross sensory deficits Assessment:: Degenerative disc disease lumbar spine with lumbar radiculopathy and lumbar spondylosis Plan:: We will follow-up with the patient in 2 months and reassess her symptoms at that time. He has been instructed to call the office if she has any issues prior to next appointment. This note was dictated using voice recognition software and may contain errors or omissions
== END ==
PROVIDERS: Family Provider Emergency Medicine; PCP Emergency Medicine; Visit Provider Clinical Nurse Specialist Family Health
DX: M51.16 Intervertebral disc disorders with radiculopathy, lumbar region (principal); M47.896 Other spondylosis, lumbar region
CPT/HCPCS: 99213

== ENCOUNTER → 2018-04-17 14:25 | Outpatient (REF) | payer MEDICAID, SELFPAY ==
[2018-04-17 18:05] LABS: Basophils # 0.1 K/mm3 (0-0.2); Basophils % 0.8 % (0.1-2.0); Eosinophils # 0.5 K/mm3 (0.0-0.4); Hematocrit 42.2 % (37.0-47.0); Hemoglobin 13.3 g/dL (12.2-16.2); Lymphocytes # 3.2 K/mm3 (0.7-4.5); Lymphocytes % 24.6 K/mm3 (10-50); Mean Corpuscular HGB Conc 31.5 g/dL (31.8-35.4); Mean Corpuscular Hemoglobin 28.7 pg (27.0-31.2); Mean Corpuscular Volume 91.3 fl (81-99); Monocytes # 0.8 K/mm3 (0.1-1.0); Monocytes % 6.2 % (1.7-9.3); Neutrophils # 8.3 K/mm3 (1.8-7.8); Neutrophils % 64.3 % (37.0-80.0); Platelet Count 221 K/mm3 (142-424); Red Blood Count 4.62 M/mm3 (4.20-5.40); Red Cell Distribution Width 14.6 % (11.5-17.5); White Blood Count 12.9 K/mm3 (4.8-10.8)
== END ==
LOC: LAB 14:25
PROVIDERS: Visit Provider Nurse Practitioner Family
DX: R19.7 Diarrhea, unspecified (principal)
CPT/HCPCS: 85025

== ENCOUNTER → 2018-04-18 14:54 | Outpatient (CLI) | payer MEDICAID, SELFPAY ==
[2018-04-18 14:56] LABS: Adenovirus F 40/41, stool Not Detected (NotDetected); Astrovirus Not Detected (NotDetected); Campylobacter Not Detected (NotDetected); Clostridium Difficile A/B, PCR Not Detected (NotDetected); Cryptosporidium Not Detected (NotDetected); Cyclospora Cayetanesis Not Detected (NotDetected); Entamoeba histolytica Not Detected (NotDetected); Enteroaggregative E coli Not Detected (NotDetected); Enterotoxigenic E coli Not Detected (NotDetected); Giardia lamblia Not Detected (NotDetected); Norovirus Not Detected (NotDetected); Plesimonas Shigalloides, PCR Not Detected (NotDetected); Rotavirus A Not Detected (NotDetected); Salmonella, PCR Not Detected (NotDetected); Sapovirus Not Detected (NotDetected); Shiga-like toxin E coli Not Detected (NotDetected); Shigella Enterovasive E coli Not Detected (NotDetected); Vibrio Cholerae Not Detected (NotDetected); Vibrio, PCR Not Detected (NotDetected); Yersinia Entercolitica, PCR Not Detected (NotDetected)
[2018-04-18 21:12] LABS: Enteropathogenic E coli Detected (NotDetected)
== END ==
PROVIDERS: Nurse Practitioner Family; PCP Emergency Medicine; Visit Provider Emergency Medicine
DX: R19.7 Diarrhea, unspecified (principal)
CPT/HCPCS: 87507

== ENCOUNTER 2018-04-27 20:57 | Observation (INO) ==
[2018-04-27 21:25] LABS: Microscopic, Urine URINE MICROSCOPIC (MICROSCOPIC)
[2018-04-27 21:27] LABS: Appearance,Urine CLEAR (Clear); Bilirubin,Urine Negative (Negative); Blood, Urine Negative (Negative); Color,Urine YELLOW (Yellow); Glucose,Urine (UA) Negative (Negative); Ketones,Urine Negative (Negative); Leukocyte Esterase,Urine Negative (Negative); Protein,Urine Negative (Negative); Specific Gravity, Urine 1.015 (1.005-1.030); Urobilinogen,Urine 0.2 EU/dl (0.2)
[2018-04-27 21:28] LABS: Basophils # 0.1 K/mm3 (0-0.2); Basophils % 0.8 % (0.1-2.0); Eosinophils # 0.4 K/mm3 (0.0-0.4); Eosinophils % 3.3 % (0.1-12.0); Hematocrit 40.2 % (37.0-47.0); Hemoglobin 12.7 g/dL (12.2-16.2); Lymphocytes # 2.3 K/mm3 (0.7-4.5); Lymphocytes % 18.6 K/mm3 (10-50); Mean Corpuscular HGB Conc 31.5 g/dL (31.8-35.4); Mean Corpuscular Hemoglobin 28.4 pg (27.0-31.2); Mean Corpuscular Volume 90.1 fl (81-99); Mean Platelet Volume 9.7 fl (7.4-10.4); Monocytes # 0.7 K/mm3 (0.1-1.0); Monocytes % 5.5 % (1.7-9.3); Neutrophils % 71.8 % (37.0-80.0); Platelet Count 180 K/mm3 (142-424); Red Blood Count 4.46 M/mm3 (4.20-5.40); Red Cell Distribution Width 14.7 % (11.5-17.5); White Blood Count 12.5 K/mm3 (4.8-10.8)
[2018-04-27 21:29] LABS: WBC,Urine Occasional #/hpf (0-3)
[2018-04-27 21:42] LABS: Albumin Level 3.9 gm/dL (3.4-5.0); Albumin/Globulin Ratio 1.2 (1.1-1.8); Anion Gap 11.9 mEq/L (5-15); Bilirubin,Total 0.4 mg/dL (0.2-1.0); Calcium 9.2 mg/dL (8.5-10.1); Globulin 3.2 gm/dl (1.3-3.2); Potassium 3.9 mmoL/L (3.5-5.1); Total Protein,Serum 7.1 gm/dL (6.4-8.2)
--- NOTE | 2018-04-27 21:44 | Emergency Department Note ---
ED Disposition Clinical Impression: Dehydration, Gastroenteritis, Tobacco dependence syndrome Food poisoning Qualifiers: Encounter type: subsequent encounter Injury intent: accidental or unintentional Qualified Code(s): T62.91XD - Toxic effect of unspecified noxious substance eaten as food, accidental (unintentional), subsequent encounter Disposition: Admitted as Observation Condition on Discharge: Good Time of Disposition: 22:39 - Critical Care Critical Care Time: No Attestation: On 04/27/18, the high probability of a clinically significant, sudden or life threatening deterioration of the following system(s) required my full and direct attention, intervention and personal management. The time I documented below is in addition to time spent performing reported procedures but includes the fol lowing listed in this critical care notation. Medical Decision Making - Medical Records Medical records reviewed: Yes: I reviewed the patient's medical records. - Anibal Inquiry Pt receiving controlled substance: No Anibal was queried for this patient: No Vital Signs: 04/27/18 21:01 04/27/18 21:54 04/27/18 22:20 Temperature 98.3 F 98.1 F Temperature Source Oral Oral Pulse Rate [Right Radial] 83 70 70 Respiratory Rate 20 20 22 Blood Pressure [Right Arm] 149/90 H 111/58 L 127/76 Blood Pressure Mean [Right Arm] 109 75 93 Blood Pressure Source [Right Arm] Manual Cuff/ Doppler Automatic Cuff Automatic Cuff Blood Pressure Position [Right Arm] Sitting Left Lateral Supine 02 Sat by Pulse Oximetry 96 97 98 Oxygen Delivery Method Room Air Nasal Cannula Oxygen Flow Rate (LPM) 2 2 - Lab Data Lab results reviewed: Yes: I reviewed the patient's lab results. Lab Results 04/27/18 21:15: Urine Color Yellow, Urine Appearance Clear, Urine pH 6.0, Ur Specific [place] 1.015, Urine Protein Negative, Urine Glucose (UA) Negative, Urine Ketones Negative, Urine Blood Negative, Urine Nitrate Negative, Urine Bilirubin Negative, Urine Urobilinogen 0.2, Ur Leukocyte Esterase Negative, Urine WBC Occasional, Ur Squamous Epith Cells 5-10 04/27/18 21:15: WBC 12.5 H, RBC 4.46, Hgb 12.7, Hct 40.2, MCV 90.1, MCH 28.4, MCHC 31.5 L, RDW 14.7, Plt Count 180, MPV 9.7, Neut % (Auto) 71.8, Lymph % (Auto) 18.6, [place] % (Auto) 5.5, Eos % (Auto) 3.3, Baso % (Auto) 0.8, Neut # (Auto) 9.0 H, Lymph # (Auto) 2.3, [place] # (Auto) 0.7, Eos # (Auto) 0.4, Baso # (Auto) 0.1 04/27/18 21:15: Sodium 141, Potassium 3.9, Chloride 104, Carbon Dioxide 29, Anion Gap 11.9, BUN 29 H, Creatinine 1.29 H, Estimated Creat Clear 68, Estimated GFR 42 L, Est GFR ( Amer) 50 L, Glucose 151 H, Calcium 9.2, Total Bilirubin 0.4, AST 17, ALT 38, Alkaline Phosphatase 115, Total Protein 7.1, Albumin 3.9, Globulin 3.2, Albumin/Globulin Ratio 1.2, Amylase 37, Lipase 169 Result diagrams: 04/27/18 21:15 04/27/18 21:15 Orders (Tests/Meds): ED MEDICATIONS Generic Name Dose Route Start Last Admin Trade Name Freq PRN Reason Stop Dose Admin Sodium Chloride 1,000 mls @ 500 mls/hr 04/27/18 22:00 Sod Chlor 0.9% 1000ml Bag IV 05/27/18 21:59 .Q2H HAJA Lactated Ringer's 1,000 mls @ 100 mls/hr 04/27/18 22:45 Lactated Ringer's 1000 Ml Bag IV 05/27/18 22:44 .Q10H HAJA Ondansetron HCl 4 mg 04/27/18 22:44 Zofran 4mg/2ml Vial IV 05/27/18 22:43 Q6HP PRN Nausea Sodium Chloride 10 ml 04/27/18 22:45 Saline Flush 10ml Syringe IV 05/27/18 22:44 NEEDED PRN Maintain IV Site Discontinued Medications Generic Name Dose Route Start Last Admin Trade Name Freq PRN Reason Stop Dose Admin Sodium Chloride 1,000 mls @ 999 mls/hr 04/27/18 21:15 04/27/18 21:25 Sod Chlor 0.9% 1000ml Bag IV 04/27/18 22:15 999 mls/hr .Q1H1M HAJA Administration Ondansetron HCl 4 mg 04/27/18 21:14 04/27/18 21:25 Zofran 4mg/2ml Vial IV 04/27/18 21:15 4 mg ONCE ONE Administration ORDERS Category Date Time Status UA [Urinalysis and Microscopic] Stat Lab 04/27/18 21:15 Ordered - Physician Consults Physician Consulted: [place] Time: 22:28 Reason -: Admission, Pt condition Time: 22:32 Reason -: Gastroenterolgy Eval/Care Time: 22:33 Reason -: Admission, Pt condition, Gastroenterolgy Eval/Care, Other (Dehydration) Nausea/Vomiting/Diarrhea HPI - General Chief complaint: Nausea/Vomiting/Diarrhea Stated complaint: cough, vomiting Time Seen by Provider: 04/27/18 21:30 Mode of Arrival: Wheelchair Limitations: No Limitations Description of Symptoms (Recalled from ER Triage Doc. by RN): Pt reports she is having nausea and vomiting and mild stomach pain. She reports she was here last weekend and was found to have ecoli in her stool. - History of Present Illness MD complaint: nausea, vomiting, diarrhea Onset (ago): day(s) (1) Description of Vomiting: food contents Description of Diarrhea: other (minimal) Associated Abdominal Pain: Yes (mild) Location of pain: diffuse Radiation: other (none) Severity scale (1-10): 4 Quality: sharp Consistency: constant Relieving factors: none Exacerbating factors: eating Context: possible food poisoning Associated symptoms: malaise, nausea/vomiting - Related Data Home Medications Medication Instructions Recorded Confirmed Ondansetron [Zuplenz] 4 mg PO Q8 04/21/18 04/27/18 Dicyclomine HCl [Bentyl 10mg 10 mg PO Q8H 04/25/18 04/27/18 capsule] Docusate Sodium [Dulcolax Stool 100 mg PO Q12 04/25/18 04/27/18 Softener] Previous Rx's Medication Instructions Recorded budesonide-formoterol HFA 160 2 puff INHALATION DAILY 90 Days 01/28/18 mcg-4.5 mcg/actuation aerosol #10.2 g inhaler bupropion HCl 150 mg tablet,12 hr 150 mg PO BID 90 Days #180 tab 01/28/18 sustained-release(smoking deterrent) ipratropium-albuterol 0.5 mg-3 3 ml INHALATION Q6HP PRN 90 Days 01/28/18 mg(2.5 mg base)/3 mL nebulization #180 ml soln gabapentin 600 mg tablet 600 mg PO TID #90 tab 02/18/18 albuterol sulfate HFA 90 See Rx Instructions INHALATION 02/21/18 mcg/actuation aerosol inhaler Q4-6H PRN 90 Days #3 inh aspirin 81 mg tablet,delayed 81 mg PO DAILY #90 tab 02/21/18 release atorvastatin 80 mg tablet 80 mg PO HS #90 tab 02/21/18 furosemide 40 mg tablet 40 mg PO DAILY #90 tab 02/21/18 losartan 50 mg tablet 50 mg PO DAILY #90 tab 02/21/18 metoprolol tartrate 50 mg tablet 50 mg PO BID 90 Days #180 tab 02/21/18 montelukast 10 mg tablet 10 mg PO HS #90 tab 02/21/18 omeprazole 40 mg capsule,delayed 40 mg PO DAILY #90 cap 02/21/18 release ropinirole 2 mg tablet 2 mg PO HS 90 Days #90 tab 02/21/18 spironolactone 50 mg tablet 50 mg PO HS #90 tab 02/21/18 tizanidine 4 mg capsule 4 mg PO BID #60 cap 04/04/18 Ondansetron [Zofran 4mg ODT] 4 mg PO Q8HP PRN #6 tab.rapdis 04/21/18 Ondansetron [Zofran 4mg ODT] 4 mg PO TIDP PRN #10 tab.rapdis 04/25/18 hydrOXYzine pamoate [Vistaril] 25 mg PO HSP PRN #5 capsule 04/25/18 Allergies Allergy/AdvReac Type Severity Reaction Status Date / Time Iodinated Contrast Media - Allergy Intermediate I-RASH Verified 04/27/18 21:08 Oral and [Iodinated Contrast Media - IV Dye] Penicillins [PENICILLINS] Allergy Unknown I-RASH Verified 04/27/18 21:08 Sulfa (Sulfonamide Allergy Unknown NA-NAUSEA/V Verified 04/27/18 21:08 Antibiotics) OMITING [SULFA (SULFONAMIDE ANTIBIOTICS)] [facility] History I have reviewed the patient's past medical history: Yes Medical History: Reports:: Atherosclerotic Heart Disease, Congestive Heart Failure, Hyperlipidemia, Hypertension, Internal Pacemaker Denies:: Cancer, Diabetes Mellitus Type 1, Diabetes Mellitus Type 2, MRSA, Seizures Other Medical History: Reports: Arthritis, Cataracts, Thyroid Disease Laterality Cases: Right: Arthroscopy Knee Other Surgeries: Yes: Cardiac Surgery, Cholecystectomy, Colonoscopy, EGD, Hysterectomy-Total, Pacemaker, Thyroidectomy, Other (gallbladder, cyst removed form wrist) Amputation: No Fractures: No Comment: Knee surgery, wrist surgery - Social History Smoking Status: Current some day smoker Tobacco Type: cigarettes # Packs/Day (cigarettes): 1 #Yrs smoked (if former smoker): 35 Alcohol Intake: never Alcohol Intake Frequency:: other Substance Use Type: denies use Occupational Status: disabled Housing: apartment Household Members: none - Psychiatric History Expresses thoughts of harming self/others: None Suicide Plan Description: No Plan Family Hx:: Hypertension ROS Obtained: Yes All systems reviewed & no additional complaints - Constitutional Constitutional: Reports system reviewed and no additional complaints, except as docu - Cardiovascular Cardiovascular: Reports system reviewed and no additional complaints, except as docu - Respiratory Respiratory: Yes system reviewed and no additional complaints, except as docu - Gastrointestinal Gastrointestingal: Reports: abdominal pain, constipation, cramping, diarrhea, nausea, vomiting. Denies: dysphagia, heartburn, black, tarry stools, pain with swallowing - Genitourinary Male Genitourinary: Reports system reviewed and no additional complaints, except as docu - Neurologic Neurologic: Reports system reviewed and no additional complaints, except as docu Physical Exam - General General appearance: alert, in distress (mild) - Head Head exam: atraumatic, normocephalic, normal inspection - Respiratory Respiratory exam: Present: normal lung sounds bilaterally. Absent: respiratory distress - Cardiovascular Cardiovascular exam: Present: regular rate, normal rhythm, diastolic murmur (rhonchi bilateral,scattered) - Abdominal Exam Abdominal exam: Present: soft, normal bowel sounds. Absent: distention, tenderness, guarding - Neurological Exam Neurological exam: Present: alert, oriented X3
[2018-04-28 09:09] LABS: Basophils # 0.1 K/mm3 (0-0.2); Basophils % 0.7 % (0.1-2.0); Eosinophils # 0.4 K/mm3 (0.0-0.4); Eosinophils % 3.3 % (0.1-12.0); Hematocrit 38.5 % (37.0-47.0); Hemoglobin 11.9 g/dL (12.2-16.2); Lymphocytes # 1.9 K/mm3 (0.7-4.5); Lymphocytes % 17.8 K/mm3 (10-50); Mean Corpuscular Hemoglobin 28.4 pg (27.0-31.2); Mean Corpuscular Volume 91.8 fl (81-99); Mean Platelet Volume 9.2 fl (7.4-10.4); Monocytes # 0.6 K/mm3 (0.1-1.0); Monocytes % 5.9 % (1.7-9.3); Neutrophils # 7.7 K/mm3 (1.8-7.8); Neutrophils % 72.3 % (37.0-80.0); Platelet Count 154 K/mm3 (142-424); Red Blood Count 4.19 M/mm3 (4.20-5.40); Red Cell Distribution Width 14.6 % (11.5-17.5); White Blood Count 10.7 K/mm3 (4.8-10.8)
[2018-04-28 09:21] LABS: Albumin Level 3.4 gm/dL (3.4-5.0); Albumin/Globulin Ratio 1.2 (1.1-1.8); Anion Gap 10.9 mEq/L (5-15); Bilirubin,Total 0.4 mg/dL (0.2-1.0); Calcium 8.9 mg/dL (8.5-10.1); Globulin 2.9 gm/dl (1.3-3.2); Potassium 3.9 mmoL/L (3.5-5.1); Total Protein,Serum 6.3 gm/dL (6.4-8.2)
--- NOTE | 2018-04-28 12:03 | Pharmacy Consult Notes ---
[facility] Pharmacy VTE Monitoring - Patient Demographics Admission date: 04/27/18 Report Date: 04/28/18 Time: 12:02 Allergies/Adverse Reactions: Patient Allergies Iodinated Contrast Media - Oral and [Iodinated Contrast Media - IV Dye] Allergy (Intermediate, Verified 04/27/18 21:08) I-RASH Penicillins [PENICILLINS] Allergy (Unknown, Verified 04/27/18 21:08) I-RASH Sulfa (Sulfonamide Antibiotics) [SULFA (SULFONAMIDE ANTIBIOTICS)] Allergy (Unknown, Verified 04/27/18 21:08) NA-NAUSEA/VOMITING Height: 1.75 m Weight: 102.625 kg Patient Problems: Current Active Problems Dehydration (Acute) Gastroenteritis (Acute) Food poisoning (Acute) Tobacco dependence syndrome (Acute) - VTE Risk Labs: VTE Related Lab Results Hgb 11.9 g/dL (12.2-16.2) L 04/28/18 08:58 Hct 38.5 % (37.0-47.0) 04/28/18 08:58 Plt Count 154 K/mm3 (142-424) 04/28/18 08:58 BUN 19 mg/dL (7-18) H D 04/28/18 08:58 Creatinine 1.28 mg/dL (0.55-1.02) H 04/28/18 08:58 Estimated Creat Clear 72 mL/min (0-300) 04/28/18 08:58 Was VTE Risk Assessment Performed: Yes VTE Score: 8 VTE Risk Level: Moderate Risk - Prophylaxis VTE Prophylaxis Ordered?: Yes Types of VTE Prophylaxis: TEDS Knee High Location of Applied Device: Bilateral Lower Extremeties
[2018-04-30 05:12] LABS: Hepatitis B Core Antibody IgM Negative (Negative); Hepatitis B Surface Antigen Negative (Negative)
[2018-04-30 06:13] LABS: Hepatitis C Antibody <0.1 s/co ratio (0.0-0.9)
--- NOTE | 2018-05-09 13:20 | H&P/Discharge Summary ---
General - General Admission date:: 04/27/18 Discharge date: 04/28/18 *Admission Date: 04/27/18 *Chief complaint: ABD CRAMPING *History of present illness: 62-year-old female presents to the ER with complaints of abdominal cramping, unable to keep fluids and liquids down, and was diagnosed 2 weeks ago with E. coli EPEC. Patient states she is feeling better over the last couple days became worse with abdominal cramping. Patient was admitted for IV fluids, monitoring labs, and antibiotics. [facility] History I have reviewed the patient's past medical history: Yes Medical History: Reports:: Atherosclerotic Heart Disease, Congestive Heart Failure, Hyperlipidemia, Hypertension, Internal Pacemaker Denies:: Cancer, Diabetes Mellitus Type 1, Diabetes Mellitus Type 2, MRSA, Seizures Other Medical History: Reports: Arthritis, Cataracts, Thyroid Disease Laterality Cases: Right: Arthroscopy Knee, Bilateral: Cataract Other Surgeries: Yes: Cardiac Surgery, Cholecystectomy, Colonoscopy, EGD, Hysterectomy-Total, Pacemaker, Thyroidectomy, Other (gallbladder, cyst removed form wrist) Amputation: No Fractures: No - *Social History Educational Level: Completed Grade School Smoking Status: Current some day smoker Tobacco Type: cigarettes # Packs/Day (cigarettes): 1 #Yrs smoked (if former smoker): 35 Alcohol Intake: never Alcohol Intake Frequency:: other Substance Use Type: denies use Occupational Status: disabled Housing: apartment Household Members: none - Psychiatric History Expresses thoughts of harming self/others: None Suicide Plan Description: No Plan *Family Hx:: Hypertension Review of Systems - Review of Systems Review of systems:: pertinent systems reviewed and negative unless documented below - Constitutional Denies fever(s), Denies headache(s) - Eyes Denies change in vision - ENT Denies sore throat - *Cardiovascular Denies chest pain at rest - *Respiratory Denies chest congestion - *Gastrointestinal Reports abdominal pain, Reports loose stools, Reports nausea - *Genitourinary Denies urinary incontinence - *Musculoskeletal Denies abnormal walking - Integumentary/Breasts Denies rash - *Neurologic Denies restless legs - Psychiatric Denies anxiety - Endocrine Denies heat intolerance - Hematologic/Lymphatic Denies enlarged lymph nodes - Allergic/Immunologic Denies lip swelling Exam Vital signs and Labs for Last 24 Hours: Temp Pulse Resp BP Pulse Ox 97.8 F 72 22 133/55 L 97 04/28/18 08:00 04/28/18 09:36 04/28/18 08:00 04/28/18 08:00 04/28/18 09:36 Laboratory Results - last 24 hr 04/27/18 21:15: Urine Color Yellow, Urine Appearance Clear, Urine pH 6.0, Ur Specific [place] 1.015, Urine Protein Negative, Urine Glucose (UA) Negative, Urine Ketones Negative, Urine Blood Negative, Urine Nitrate Negative, Urine Bilirubin Negative, Urine Urobilinogen 0.2, Ur Leukocyte Esterase Negative, Urine WBC Occasional, Ur Squamous Epith Cells 5-10 04/27/18 21:15: WBC 12.5 H, RBC 4.46, Hgb 12.7, Hct 40.2, MCV 90.1, MCH 28.4, MCHC 31.5 L, RDW 14.7, Plt Count 180, MPV 9.7, Neut % (Auto) 71.8, Lymph % (Auto) 18.6, [place] % (Auto) 5.5, Eos % (Auto) 3.3, Baso % (Auto) 0.8, Neut # (Auto) 9.0 H, Lymph # (Auto) 2.3, [place] # (Auto) 0.7, Eos # (Auto) 0.4, Baso # (Auto) 0.1 04/27/18 21:15: Sodium 141, Potassium 3.9, Chloride 104, Carbon Dioxide 29, Anion Gap 11.9, BUN 29 H, Creatinine 1.29 H, Estimated Creat Clear 68, Estimated GFR 42 L, Est GFR ( Amer) 50 L, Glucose 151 H, Calcium 9.2, Total Bilirubin 0.4, AST 17, ALT 38, Alkaline Phosphatase 115, Total Protein 7.1, Albumin 3.9, Globulin 3.2, Albumin/Globulin Ratio 1.2, Amylase 37, Lipase 169 04/28/18 08:58: WBC 10.7, RBC 4.19 L, Hgb 11.9 L, Hct 38.5, MCV 91.8, MCH 28.4, MCHC 31.0 L, RDW 14.6, Plt Count 154, MPV 9.2, Neut % (Auto) 72.3, Lymph % (Auto) 17.8, [place] % (Auto) 5.9, Eos % (Auto) 3.3, Baso % (Auto) 0.7, Neut # (Auto) 7.7, Lymph # (Auto) 1.9, [place] # (Auto) 0.6, Eos # (Auto) 0.4, Baso # (Auto) 0.1 04/28/18 08:58: Sodium 144, Potassium 3.9, Chloride 106, Carbon Dioxide 31, Anion Gap 10.9, BUN 19 H D, Creatinine 1.28 H, Estimated Creat Clear 72, Estimated GFR 42 L, Est GFR ( Amer) 51 L, Glucose 128 H, Calcium 8.9, Total Bilirubin 0.4, AST 15, ALT 35, Alkaline Phosphatase 98, Total Protein 6.3 L, Albumin 3.4 D, Globulin 2.9, Albumin/Globulin Ratio 1.2 I & O for Last 24 hours: Intake & Output 04/26/18 04/27/18 04/28/18 04/29/18 11:59 11:59 11:59 11:59 Intake Total 2314 / 2314 360 / 360 Output Total 1400 / 1400 Balance 914 / 914 360 / 360 Weight 226 lb 4 oz 226 lb 4 oz - *Routine HEENT Exam Head: Present: normocephalic Eye: Present: PERRL ENT: Present: mucous membranes moist - *Routine Neck Exam Present: supple. Absent: lymphadenopathy - *Routine Respiratory Exam Present: wheezes - *Routine Cardiovascular Exam Present: RRR - *Routine Abdominal Exam Present: soft, normoactive bowel sounds, tenderness. Absent: distended - *Routine Extremities Exam Absent: cyanosis, clubbing, edema - *Routine Skin Exam Present: warm. Absent: rash - *Routine Neurological Exam Present: alert, oriented X3 Hospital Course Hospital Course: IV fluids, antibiotics, labs Today patient states she is feeling better she is able to eat and drink and keep it down without problems. Discharge home follow-up in the office on Sunday call office tomorrow for an appointment. Antibiotics as ordered. CHEST X RAY:IMPRESSION: Nothing definitely acute. Lungs appear clear with chronic changes. Mild hyperexpansion reflecting COPD Pacemaker again noted Results Labs on day of discharge: Labs from last 24 hours 04/28/18 04/28/18 04/27/18 08:58 08:58 21:15 WBC 10.7 RBC 4.19 L Hgb 11.9 L Hct 38.5 MCV 91.8 MCH 28.4 MCHC 31.0 L RDW 14.6 Plt Count 154 MPV 9.2 Neut % (Auto) 72.3 Lymph % (Auto) 17.8 [place] % (Auto) 5.9 Eos % (Auto) 3.3 Baso % (Auto) 0.7 Neut # (Auto) 7.7 Lymph # (Auto) 1.9 [place] # (Auto) 0.6 Eos # (Auto) 0.4 Baso # (Auto) 0.1 Sodium 144 141 Potassium 3.9 3.9 Chloride 106 104 Carbon Dioxide 31 29 Anion Gap 10.9 11.9 BUN 19 H D 29 H Creatinine 1.28 H 1.29 H Estimated Creat Clear 72 68 Estimated GFR 42 L 42 L Est GFR ( Amer) 51 L 50 L Glucose 128 H 151 H Calcium 8.9 9.2 Total Bilirubin 0.4 0.4 AST 15 17 ALT 35 38 Alkaline Phosphatase 98 115 Total Protein 6.3 L 7.1 Albumin 3.4 D 3.9 Globulin 2.9 3.2 Albumin/Globulin Ratio 1.2 1.2 Amylase 37 Lipase 169 Urine Color Urine Appearance Urine pH Ur Specific [place] Urine Protein Urine Glucose (UA) Urine Ketones Urine Blood Urine Nitrate Urine Bilirubin Urine Urobilinogen Ur Leukocyte Esterase Urine WBC Ur Squamous Epith Cells 04/27/18 04/27/18 21:15 21:15 WBC 12.5 H RBC 4.46 Hgb 12.7 Hct 40.2 MCV 90.1 MCH 28.4 MCHC 31.5 L RDW 14.7 Plt Count 180 MPV 9.7 Neut % (Auto) 71.8 Lymph % (Auto) 18.6 [place] % (Auto) 5.5 Eos % (Auto) 3.3 Baso % (Auto) 0.8 Neut # (Auto) 9.0 H Lymph # (Auto) 2.3 [place] # (Auto) 0.7 Eos # (Auto) 0.4 Baso # (Auto) 0.1 Sodium Potassium Chloride Carbon Dioxide Anion Gap BUN Creatinine Estimated Creat Clear Estimated GFR Est GFR ( Amer) Glucose Calcium Total Bilirubin AST ALT Alkaline Phosphatase Total Protein Albumin Globulin Albumin/Globulin Ratio Amylase Lipase Urine Color Yellow Urine Appearance Clear Urine pH 6.0 Ur Specific [place] 1.015 Urine Protein Negative Urine Glucose (UA) Negative Urine Ketones Negative Urine Blood Negative Urine Nitrate Negative Urine Bilirubin Negative Urine Urobilinogen 0.2 Ur Leukocyte Esterase Negative Urine WBC Occasional Ur Squamous Epith Cells 5-10 - Additional Comments Rounded with Dr. Beatty. Discharge Medications - Medications for Discharge Home Medication List at Discharge: No Action gabapentin 600 mg tablet 600 mg PO TID #90 tab metoprolol tartrate 50 mg tablet 50 mg PO BID 90 Days #180 tab montelukast 10 mg tablet 10 mg PO HS #90 tab omeprazole 40 mg capsule,delayed release 40 mg PO DAILY #90 cap atorvastatin 80 mg tablet 80 mg PO HS #90 tab furosemide 40 mg tablet 40 mg PO DAILY #90 tab ropinirole 2 mg tablet 2 mg PO HS 90 Days #90 tab aspirin 81 mg tablet,delayed release 81 mg PO DAILY #90 tab Ondansetron [Zofran 4mg ODT] 4 mg PO Q8HP PRN #6 tab.rapdis PRN Reason: Nausea Docusate Sodium [Dulcolax Stool Softener] 100 mg PO BID PRN PRN Reason: Constipation Dicyclomine HCl [Bentyl 10mg capsule] 10 mg PO Q8H Losartan Potassium 50 mg PO DAILY Albuterol Sulfate [Albuterol HFA Inhaler] 1 - 2 puffs INHALATION Q4HP PRN PRN Reason: Shortness Of Breath Or Wheezing Tizanidine HCl 4 mg PO BID Spironolactone 50 mg PO HS buPROPion HCl [Bupropion HCl Sr] 150 mg PO BID Budesonide/Formoterol Fumarate [Symbicort 160-4.5 Mcg Inhaler] 1 - 2 puffs IH BID hydrOXYzine pamoate [Vistaril] 25 mg PO HSP PRN #5 capsule PRN Reason: Sleep Disposition Disposition: Home, Self-Care
== END 2018-04-28 13:59 | disposition home or self-care (01) ==
LOC: ER 20:57 → 2ND 20:57
PROVIDERS: ADMIT Internal Medicine Adolescent Medicine; ATTEND Emergency Medicine

== ENCOUNTER → 2018-04-29 11:00 | Outpatient (REF) | payer MEDICAID, SELFPAY ==
[2018-04-29 14:48] LABS: Amphetamine/Metha Screen,Urine Negative ng/mL (<1000); Barbiturates Screen,Urine Negative ng/mL (<200); Benzodiazepines Screen,Urine Negative ng/mL (<200); Cannabinoid Screen,Urine Negative ng/mL (<50); Cocaine Screen,Urine Negative ng/mL (<300); Methadone Screen,Urine Negative ng/mL (<300); Opiate Screen,Urine Positive ng/mL (<300); Phencyclidine Screen,Urine Negative ng/mL (<25)
== END ==
LOC: LAB 11:00
PROVIDERS: Visit Provider Emergency Medicine
DX: Z79.899 Other long term (current) drug therapy (principal)
CPT/HCPCS: 80305

== ENCOUNTER → 2018-05-20 10:34 | Outpatient (POV) | payer MEDICAID, SELFPAY ==
[2018-05-20 10:49] VITALS: BP 98/65; PULSE 69; RESP 18; O2SAT 98; BMI 31.8
--- NOTE | 2018-05-20 11:03 | P.CONS_ITS ---
[facility] Pain Management SOAP Note Subjective:: Is a pleasant 62-year-old female who presents today for low back secondary to degenerative disc disease lumbar spine with lumbar radiculopathy lumbar spondylosis and facet arthropathy. It states she is still doing well after her last medial branch. Patient has gotten 80 relief of her symptoms for several weeks. Patient states that most of her issues right now is with her blood pressure she states her blood pressure and low. Patient states she is weak and tired. I encouraged her to go see her primary care physician. She stated that she would be doing this. Patient remained today a 4 out of 10. Patient would like to have the round of injections prior to [place]. ROS General: no recent weight change, no fever, no sleep disturbances Respiratory: cough, no shortness of air, no recurring pulmonary infections Cardiovascular/Peripheral Vascular: No chest pain, No palpitations, no edema, no shortness of breath. Gastrointestinal: no incontinence, normal bowel movements reported Genitourinary: no incontinence Musculoskeletal: Back pain Psychiatric: normal mood/ affect Neurological: [denies weakness in extremities], [denies balance issues] Objective:: Physical Exam General: Alert and oriented x3, no acute distress, pleasant and cooperative, [on room air] Lungs: Resps E/U, Symmetrical chest expansion, Eyes: PERRL Musculoskeletal: Flexion and extension of lumbar spine somewhat guarded secondary to pain, deep tendon reflexes normal, strength in upper and lower extremities [5/5], slightly antalgic gait noted, positive Kemps test bilaterally lumbar spine Neurological: speech clear, 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 Patient's not on any anticoagulation therapy. Patient is continuing with a home stretching regimen. I will follow-up with the patient after her injection. This note was dictated using voice recognition software and may contain errors or omissions
== END ==
PROVIDERS: Family Provider Emergency Medicine; PCP Emergency Medicine; Visit Provider Clinical Nurse Specialist Family Health
DX: M51.16 Intervertebral disc disorders with radiculopathy, lumbar region (principal); M47.896 Other spondylosis, lumbar region
CPT/HCPCS: 99213

== ENCOUNTER → 2018-06-07 14:02 | Outpatient (CLI) | payer MEDICARE, MEDICAID, SELFPAY ==
[2018-06-07 14:53] LABS: Alanine Aminotransferase 32 U/L (12-78); Albumin Level 3.7 gm/dL (3.4-5.0); Albumin/Globulin Ratio 1.3 (1.1-1.8); Alkaline Phosphatase 120 U/L (46-116); Anion Gap 13.2 mEq/L (5-15); Aspartate Amino Transferase 20 U/L (15-37); Bilirubin,Total 0.2 mg/dL (0.2-1.0); Blood Urea Nitrogen 21 mg/dL (7-18); Calcium 9.2 mg/dL (8.5-10.1); Carbon Dioxide 27 mmol/L (21.0-32.0); Chloride 106 mmol/L (98-107); Estimated Glomerular Filt Rate 50 ml/min (>60); GFR (African American) 61 ML/MIN (>60); Globulin 2.8 gm/dl (1.3-3.2); Glucose 150 mg/dL (74-106); Potassium 4.2 mmoL/L (3.5-5.1); Sodium 142 mmol/L (136-145); Total Protein,Serum 6.5 gm/dL (6.4-8.2)
== END ==
PROVIDERS: Visit Provider Nurse Practitioner Family
DX: R53.83 Other fatigue (principal)
CPT/HCPCS: 80053

== ENCOUNTER → 2018-07-05 18:13 | Outpatient (CLI) | payer MEDICARE, MEDICAID, SELFPAY ==
[2018-07-05 19:10] LABS: Alanine Aminotransferase 33 U/L (12-78); Albumin/Globulin Ratio 1.4 (1.1-1.8); Alkaline Phosphatase 127 U/L (46-116); Anion Gap 12.5 mEq/L (5-15); Aspartate Amino Transferase 16 U/L (15-37); Bilirubin,Total 0.5 mg/dL (0.2-1.0); Blood Urea Nitrogen 20 mg/dL (7-18); Calcium 9.5 mg/dL (8.5-10.1); Carbon Dioxide 28 mmol/L (21.0-32.0); Chloride 103 mmol/L (98-107); Creatinine,Serum 1.25 mg/dL (0.55-1.02); Estimated Glomerular Filt Rate 43 ml/min (>60); GFR (African American) 52 ML/MIN (>60); Globulin 2.9 gm/dl (1.3-3.2); Glucose 118 mg/dL (74-106); Potassium 4.5 mmoL/L (3.5-5.1); Sodium 139 mmol/L (136-145); Total Protein,Serum 6.9 gm/dL (6.4-8.2)
[2018-07-05 19:20] LABS: Basophils # 0.1 K/mm3 (0-0.2); Basophils % 1.1 % (0.1-2.0); Eosinophils # 0.7 K/mm3 (0.0-0.4); Eosinophils % 5.7 % (0.1-12.0); Hematocrit 45.9 % (37.0-47.0); Hemoglobin 14.4 g/dL (12.2-16.2); Lymphocytes # 2.5 K/mm3 (0.7-4.5); Lymphocytes % 19.9 % (10-50); Mean Corpuscular HGB Conc 31.3 g/dL (31.8-35.4); Mean Corpuscular Hemoglobin 28.7 pg (27.0-31.2); Mean Corpuscular Volume 91.6 fl (81-99); Mean Platelet Volume 10.2 fl (7.4-10.4); Monocytes # 0.5 K/mm3 (0.1-1.0); Monocytes % 4.1 % (1.7-9.3); Neutrophils # 8.5 K/mm3 (1.8-7.8); Neutrophils % 69.2 % (37.0-80.0); Platelet Count 204 K/mm3 (142-424); Red Blood Count 5.01 M/mm3 (4.20-5.40); Red Cell Distribution Width 13.9 % (11.5-17.5); White Blood Count 12.4 K/mm3 (4.8-10.8)
== END ==
PROVIDERS: Nurse Practitioner Family; Visit Provider Emergency Medicine
DX: R11.2 Nausea with vomiting, unspecified (principal)
CPT/HCPCS: 80053; 85025

== ENCOUNTER → 2018-07-12 12:24 | Outpatient (CLI) | payer MEDICARE, MEDICAID, SELFPAY ==
[2018-07-12 12:52] LABS: ABG HCO3 19.4 mmhg (22.0-26.0); ABG Oxygen Saturation 95 % (90-100); ABG PCO2 30.3 mmhg (35.0-45.0); ABG PH 7.42 mmol/L (7.35-7.45); ABG PO2 73.7 mmhg (80-100); ABG TCO2 20.3 mmhg (23-27)
[2018-07-12 12:54] LABS: Oxygen ROOM AIR %; Source L BRACHIAL
== END ==
PROVIDERS: Emergency Medicine; PCP Nurse Practitioner Family; Visit Provider Nurse Practitioner Family
DX: J44.1 Chronic obstructive pulmonary disease with (acute) exacerbation (principal); R09.02 Hypoxemia
CPT/HCPCS: 82803; 94060

== ENCOUNTER → 2018-07-25 20:00 | Outpatient (CLI) | payer MEDICARE, MEDICAID, SELFPAY | PROVIDERS: PCP Emergency Medicine; Visit Provider Emergency Medicine | DX: G47.33 Obstructive sleep apnea (adult) (pediatric) (principal) | CPT/HCPCS: 95810 ==

== ENCOUNTER → 2018-07-31 10:42 | Outpatient (CLI) | payer MEDICARE, MEDICAID, SELFPAY ==
[2018-07-31 13:07] LABS: Anion Gap 13.5 mEq/L (5-15); Blood Urea Nitrogen 18 mg/dL (7-18); Calcium 8.6 mg/dL (8.5-10.1); Carbon Dioxide 30 mmol/L (21.0-32.0); Chloride 103 mmol/L (98-107); Creatinine,Serum 1.25 mg/dL (0.55-1.02); Estimated Glomerular Filt Rate 43 ml/min (>60); GFR (African American) 52 ML/MIN (>60); Glucose 108 mg/dL (74-106); Potassium 4.5 mmoL/L (3.5-5.1); Sodium 142 mmol/L (136-145)
== END ==
PROVIDERS: PCP Emergency Medicine; Visit Provider Internal Medicine Cardiovascular Disease
DX: I11.9 Hypertensive heart disease without heart failure (principal); I25.10 Atherosclerotic heart disease of native coronary artery without angina pectoris; R06.09 Other forms of dyspnea; R60.0 Localized edema
CPT/HCPCS: 36415; 80048; 83880

== ENCOUNTER 2018-08-02 14:50 | Inpatient (IN) ==
--- NOTE | 2018-08-02 15:18 | Emergency Department Note ---
ED Disposition Clinical Impression: COPD exacerbation Community acquired pneumonia Qualifiers: Laterality: left Lung location: lower lobe of lung Qualified Code(s): J18.1 - Lobar pneumonia, unspecified organism Disposition: Still a Patient Condition on Discharge: Fair Referrals: Provider,Referral, [Primary Care Provider] - - Critical Care Critical Care Time: No Attestation: On 08/02/18, the high probability of a clinically significant, sudden or life threatening deterioration of the following system(s) required my full and direct attention, intervention and personal management. The time I documented below is in addition to time spent performing reported procedures but includes the following listed in this critical care notation. Medical Decision Making - Anibal Inquiry Pt receiving controlled substance: No Vital Signs: 08/02/18 15:02 08/02/18 15:09 08/02/18 16:13 Temperature 99.0 F Temperature Source Oral Pulse Rate 111 H Pulse Rate [Left] 114 H 103 H Respiratory Rate 26 H 22 Blood Pressure [Left Arm] 143/79 H 138/75 Blood Pressure Mean [Left Arm] 100 96 Blood Pressure Source [Left Arm] Automatic Cuff Automatic Cuff Blood Pressure Position [Left Arm] Sitting Sitting 02 Sat by Pulse Oximetry 90 L 92 L Oxygen Delivery Method Room Air Nasal Cannula Oxygen Flow Rate (LPM) 4 - Lab Data Lab Results 08/02/18 16:10: WBC 19.1 H, RBC 4.95, Hgb 13.9, Hct 44.8, MCV 90.5, MCH 28.1, MCHC 31.0 L, RDW 14.1, Plt Count 260, MPV 8.9, Neut % (Auto) 88.2 H, Lymph % (Auto) 6.6 L, [place] % (Auto) 4.8, Eos % (Auto) 0.2, Baso % (Auto) 0.2, Neut # (Auto) 16.9 H, Lymph # (Auto) 1.3, [place] # (Auto) 0.9, Eos # (Auto) 0.0, Baso # (Auto) 0.1, Total Counted 100, Neutrophils % (Manual) 90 H, Lymphocytes % (Manual) 6 L, Monocytes % (Manual) 4, Platelet Estimate Normal 08/02/18 16:10: Sodium 138, Potassium 3.5 D, Chloride 101, Carbon Dioxide 30, Anion Gap 10.5, BUN 18, Creatinine 1.28 H, Estimated Creat Clear 69, Estimated GFR 42 L, Est GFR ( Amer) 51 L, Glucose 158 H, Calcium 8.5, Total Bilirubin 0.4, AST 18, ALT 36, Alkaline Phosphatase 147 H, Total Protein 7.1, Albumin 3.2 L, Globulin 3.9 H, Albumin/Globulin Ratio 0.8 L 08/02/18 16:10: Lactate 1.8 Result diagrams: 08/02/18 16:10 08/02/18 16:10 Orders (Tests/Meds): ED MEDICATIONS Generic Name Dose Route Start Last Admin Trade Name Freq PRN Reason Stop Dose Admin Azithromycin 500 mg/ Sodium 250 mls @ 250 mls/hr 08/02/18 16:45 Chloride IV 08/16/18 16:44 Q24H HAJA Protocol Ceftriaxone Sodium 1 gm/ 50 mls @ 100 mls/hr 08/02/18 16:45 Sodium Chloride IV 08/16/18 16:44 Q24H HAJA Protocol Sodium Chloride 3 ml 08/02/18 15:12 Sodium Chloride 3% 15ml [facility] 09/01/18 15:11 ONCE PRN INDUCE SPUTUM COLLECTION Sodium Chloride 10 ml 08/02/18 15:17 08/02/18 16:02 Saline Flush 10ml Syringe IV 09/01/18 15:16 10 ml NEEDED PRN Administration Maintain IV Site Discontinued Medications Generic Name Dose Route Start Last Admin Trade Name Freq PRN Reason Stop Dose Admin Albuterol/Ipratropium 3 ml 08/02/18 15:08 08/02/18 15:09 Duoneb 3ml [facility] 08/02/18 15:09 3 ml ONCE ONE Administration Methylprednisolone Sodium Succinate 125 mg 08/02/18 15:27 08/02/18 16:02 Solu-Medrol 125mg/2ml Vial IV 08/02/18 15:28 125 mg ONCE ONE Administration ORDERS Category Date Time Status Blood Culture Stat Micro 08/02/18 16:10 Received Sputum Culture & Gram Stain Routine Micro 08/02/18 15:15 Results - Radiology Data #1 Image(s): Chest Image Reviewed: Yes I reviewed the patient's radiology image inc mkgs L base with indistinct heart border c/w infiltrate - Physician Consults Physician Consulted: Hugh Jeffers Time: 16:58 Reason -: Admission Comment/Response: Agrees to admit the patient to the hospital. We discussed the patient's clinical information, including history, exam, laboratory and radiology results and ED course. Per hospital procedure, I will write temporary bridge inpatient orders on the patient. Specific orders requested by the admitting physician: Continue antibiotics, steroids, nebulizer treatments, oxygen Medical Decision Narrative: Allergy to penicillin, rash, but has had Rocephin in the past per her record General Adult HPI - General Chief complaint: Shortness of Breath/Dyspnea Stated complaint: SOA Time Seen by Provider: 08/02/18 15:17 Mode of Arrival: Ambulatory Limitations: No Limitations Description of Symptoms (Recalled from ER Triage Doc. by RN): Short of breath worsening this morning. - History of Present Illness HPI narrative: Shortness of breath and productive cough, worsening over the past 3-4 days. Says sputum is thick. Temperature not taken at home. Denies chest pain. She has COPD, on oxygen 24 hours a day. She has a nebulizer at home. She is used it twice today. She says she has been instructed to use it every 4-6 hours. She says she quit smoking 4 days ago when she started getting the symptoms. Saw her primary care provider yesterday and was given an injection of Decadron and was started on prednisone and Mucinex. Has not improved. Called her PCP today and was advised to come to the emergency room. 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] 20 mg PO DAILY 07/26/18 08/01/18 Losartan Potassium 25 mg PO DAILY 07/26/18 08/01/18 Metoprolol Tartrate [Lopressor 25 mg PO DAILY 07/26/18 08/01/18 25mg tablet] Nystatin [Nystatin Cr 100,000 1 applic TOPICAL BID 07/26/18 08/01/18 Units/GM 30GM] Tiotropium [place] [Spiriva 2 puff INHALATION DAILY 07/26/18 08/01/18 Respimat] Previous Rx's Medication Instructions Recorded aspirin 81 mg tablet,delayed 81 mg PO DAILY #90 tab 02/21/18 release atorvastatin 80 mg tablet 80 mg PO HS #90 tab 02/21/18 furosemide 40 mg tablet 40 mg PO DAILY #90 tab 02/21/18 montelukast 10 mg tablet 10 mg PO HS #90 tab 02/21/18 omeprazole 40 mg capsule,delayed 40 mg PO DAILY #90 cap 02/21/18 release hydrOXYzine pamoate [Vistaril] 25 mg PO HSP PRN #5 cap 04/25/18 bupropion HCl 150 mg tablet,12 hr 150 mg PO BID #180 tab 05/17/18 sustained-release(smoking deterrent) ondansetron HCl 4 mg tablet 4 mg PO TID PRN 2 Days #7 tab 07/05/18 promethazine 25 mg tablet 25 mg PO Q8HP PRN #15 tab 07/08/18 tizanidine 4 mg capsule 4 mg PO BID #180 cap 07/28/18 dextromethorphan-guaifenesin 30 1 tab PO Q12H #60 tab 08/01/18 mg-600 mg tablet extended [id number] hr gabapentin 600 mg tablet 600 mg PO TID #90 tab 08/01/18 prednisone 20 mg tablet 20 mg PO BID 5 Days #10 tab 08/01/18 Allergies Allergy/AdvReac Type Severity Reaction Status Date / Time Iodinated Contrast Media - Allergy Intermediate I-RASH Verified 08/01/18 12:59 Oral and [Iodinated Contrast Media - IV Dye] Penicillins [PENICILLINS] Allergy Unknown I-RASH Verified 08/01/18 12:59 Sulfa (Sulfonamide Allergy Unknown NA-NAUSEA/V Verified 08/01/18 12:59 Antibiotics) OMITING [SULFA (SULFONAMIDE ANTIBIOTICS)] [facility] History - Hepatitis A Screen Drug use history?: No High risk sexual behaviors?: No History of sexually transmitted infection?: No Currently employed?: No Childcare worker?: No Do you have indoor plumbing?: No Do you have electricity?: No Attestation statement:: This patient has been screened for Hepatitis A risk factors. I have reviewed the patient's past medical history: Yes Medical History: Reports:: Atherosclerotic Heart Disease, Congestive Heart Failure, Hyperlipidemia, Hypertension, Internal Pacemaker Denies:: Cancer, Diabetes Mellitus Type 1, Diabetes Mellitus Type 2, MRSA, Seizures Other Medical History: Reports: Arthritis, Cataracts, Thyroid Disease Laterality Cases: Right: Arthroscopy Knee Other Surgeries: Yes: No Previous Surgery, Cardiac Surgery, Cholecystectomy, Colonoscopy, EGD, Hysterectomy-Total, Pacemaker, Thyroidectomy, Other ( gallbladder, cyst removed form wrist) Amputation: No Fractures: No Comment: Knee surgery, wrist surgery - Social History Educational Level: Attended High School Smoking Status: Former smoker Tobacco Type: cigarettes # Packs/Day (cigarettes): 1 #Yrs smoked (if former smoker): 30 Smoking End Date: Alcohol Intake: never Alcohol Intake Frequency:: other Substance Use Type: denies use Occupational Status: disabled Housing: apartment Household Members: none - Psychiatric History Expresses thoughts of harming self/others: None Suicide Plan Description: No Plan Family Hx:: Hypertension ROS Obtained: Yes All systems reviewed & no additional complaints - Constitutional Constitutional: Denies fever(s) - Cardiovascular Cardiovascular: Denies chest pain - Respiratory Respiratory: Yes cough, Yes dyspnea Physical Exam - General General appearance: alert, in distress (Labored respirations, audible wheezing, frequent cough) - Head Head exam: atraumatic, normocephalic - Eye Eye exam: Present: normal appearance, PERRL, EOMI - ENT ENT exam: Present: mucous membranes moist - Chest Chest inspection: Present: normal inspection, symmetric chest wall rise - Respiratory Respiratory exam: Present: wheezes - Cardiovascular Cardiovascular exam: Present: normal rhythm, tachycardia, normal heart sounds - Abdominal Exam Abdominal exam: Present: soft. Absent: distention, tenderness - Extremities Exam Extremities exam: Present: normal inspection - Neurological Exam Neurological exam: Present: alert, oriented X3 - Psychiatric Psychiatric exam: Present: normal affect, normal mood - Skin Skin exam: Present: warm, dry
[2018-08-02 16:33] LABS: Basophils # 0.1 K/mm3 (0-0.2); Basophils % 0.2 % (0.1-2.0); Eosinophils % 0.2 % (0.1-12.0); Hematocrit 44.8 % (37.0-47.0); Hemoglobin 13.9 g/dL (12.2-16.2); Lymphocytes # 1.3 K/mm3 (0.7-4.5); Lymphocytes % 6.6 % (10-50); Mean Corpuscular Hemoglobin 28.1 pg (27.0-31.2); Mean Corpuscular Volume 90.5 fl (81-99); Mean Platelet Volume 8.9 fl (7.4-10.4); Monocytes # 0.9 K/mm3 (0.1-1.0); Monocytes % 4.8 % (1.7-9.3); Neutrophils # 16.9 K/mm3 (1.8-7.8); Neutrophils % 88.2 % (37.0-80.0); Platelet Count 260 K/mm3 (142-424); Red Blood Count 4.95 M/mm3 (4.20-5.40); Red Cell Distribution Width 14.1 % (11.5-17.5); White Blood Count 19.1 K/mm3 (4.8-10.8)
[2018-08-02 16:42] LABS: Albumin Level 3.2 gm/dL (3.4-5.0); Albumin/Globulin Ratio 0.8 (1.1-1.8); Anion Gap 10.5 mEq/L (5-15); Bilirubin,Total 0.4 mg/dL (0.2-1.0); Calcium 8.5 mg/dL (8.5-10.1); Globulin 3.9 gm/dl (1.3-3.2); Potassium 3.5 mmoL/L (3.5-5.1); Total Protein,Serum 7.1 gm/dL (6.4-8.2)
[2018-08-02 16:55] LABS: Lymphocytes % 6 % (10-50); Monocytes % 4 % (2-9); Neutrophils % 90 % (42-76); Total Cells Counted 100
--- NOTE | 2018-08-03 08:43 | History & Physical Report ---
*Admission Date: 08/02/18 *Chief complaint: sob *History of present illness: pt with hx of breathing issues and presented to ed with inc sob -ortness of breath and productive cough, worsening over the past 3-4 days. Says sputum is thick. Temperature not taken at home. Denies chest pain. She has COPD, on o xygen 24 hours a day. She has a nebulizer at home. She is used it twice today. She says she has been instructed to use it every 4-6 hours. She says she quit smoking 4 days ago when she started getting the symptoms. Saw her primary care provider yesterday and was given an injection of Decadron and was started on prednisone and Mucinex. Has not improved. Called her PCP today and was advised to come to the emergency room. pt had failed op treatment of steroids and abx - H History I have reviewed the patient's past medical history: Yes Medical History: Reports:: Atherosclerotic Heart Disease, Congestive Heart Failure, Hyperlipidemia, Hypertension, Internal Pacemaker Denies:: Cancer, Diabetes Mellitus Type 1, Diabetes Mellitus Type 2, MRSA, Seizures Other Medical History: Reports: Arthritis, Cataracts, Thyroid Disease Laterality Cases: Right: Arthroscopy Knee Other Surgeries: Yes: No Previous Surgery, Cardiac Surgery, Cholecystectomy, Colonoscopy, EGD, Hysterectomy-Total, Pacemaker, Thyroidectomy, Other (gallbladder, cyst removed form wrist) Amputation: No Fractures: No - *Social History Educational Level: Completed Grade School Smoking Status: Former smoker Tobacco Type: cigarettes # Packs/Day (cigarettes): 1 #Yrs smoked (if former smoker): 30 Smoking End Date: 07/30/18 Alcohol Intake: never Alcohol Intake Frequency:: other Substance Use Type: denies use Occupational Status: disabled Housing: apartment Household Members: none - Psychiatric History Expresses thoughts of harming self/others: None Suicide Plan Description: No Plan *Family Hx:: Hypertension Review of Systems - Review of Systems Review of systems:: pertinent systems reviewed and negative unless documented below - Constitutional Reports lack of energy, Denies fever(s) - Eyes Denies change in vision - ENT Denies sore throat - *Cardiovascular Denies chest pain - *Respiratory Reports cough, Reports shortness of breath, Denies coughing up blood - *Gastrointestinal Denies abdominal pain - *Genitourinary Denies urinary incontinence - *Musculoskeletal Denies joint pain, Denies joint swelling - Integumentary/Breasts Denies rash - *Neurologic Denies seizure-like activity - Psychiatric Denies anxiety Meds Home Medications Medication Instructions Recorded Confirmed Type aspirin 81 mg tablet,delayed 81 mg PO DAILY #90 tab 02/21/18 08/02/18 Rx release atorvastatin 80 mg tablet 80 mg PO HS #90 tab 02/21/18 08/02/18 Rx furosemide 40 mg tablet 40 mg PO DAILY #90 tab 02/21/18 08/02/18 Rx montelukast 10 mg tablet 10 mg PO HS #90 tab 02/21/18 08/02/18 Rx omeprazole 40 mg capsule,delayed 40 mg PO DAILY #90 cap 02/21/18 08/02/18 Rx release Docusate Sodium [Dulcolax Stool 100 mg PO BID PRN 04/25/18 08/02/18 History Softener] hydrOXYzine pamoate [Vistaril] 25 mg PO HSP PRN #5 cap 04/25/18 08/02/18 Rx Albuterol Sulfate [Albuterol HFA 1 - 2 puffs INHALATION Q4HP PRN 04/28/18 08/02/18 History Inhaler] bupropion HCl 150 mg tablet,12 hr 150 mg PO BID #180 tab 05/17/18 08/02/18 Rx sustained-release(smoking deterrent) promethazine 25 mg tablet 25 mg PO Q8HP PRN #15 tab 07/08/18 08/02/18 Rx Famotidine [Acid Boring Mill Set Up Operator Vertical] 20 mg PO DAILY PRN 07/26/18 08/02/18 History Losartan Potassium 25 mg PO DAILY 07/26/18 08/02/18 History Metoprolol Tartrate [Lopressor 25 mg PO DAILY 07/26/18 08/02/18 History 25mg tablet] Nystatin [Nystatin Cr 100,000 1 applic TOPICAL BID PRN 07/26/18 08/02/18 History Units/GM 30GM] Tiotropium [place] [Spiriva 2 puff INHALATION DAILY 07/26/18 08/02/18 History Respimat] tizanidine 4 mg capsule 4 mg PO BID #180 cap 07/28/18 08/02/18 Rx gabapentin 600 mg tablet 600 mg PO TID #90 tab 08/01/18 08/02/18 Rx Guaifenesin/Dextromethorphan 1 tab PO Q12H 08/02/18 08/02/18 History [Mucus Rlf Dm ER 600-30 mg Tab] Ondansetron HCl [Ondansetron 4mg 4 mg PO BID 08/02/18 08/02/18 History Tablet] predniSONE [Deltasone 20mg 20 mg PO BID 08/02/18 08/02/18 History tablet] Allergies Allergy/AdvReac Type Severity Reaction Status Date / Time Iodinated Contrast Media - Allergy Intermediate I-RASH Verified 08/01/18 12:59 Oral and [Iodinated Contrast Media - IV Dye] Penicillins [PENICILLINS] Allergy Unknown I-RASH Verified 08/01/18 12:59 Sulfa (Sulfonamide Allergy Unknown NA-NAUSEA/V Verified 08/01/18 12:59 Antibiotics) OMITING [SULFA (SULFONAMIDE ANTIBIOTICS)] Exam Vital signs and Labs for Last 24 Hours: Temp Pulse Resp BP Pulse Ox 97.9 F 94 H 22 145/70 H 95 08/03/18 08:00 08/03/18 08:00 08/03/18 08:00 08/03/18 08:00 08/03/18 08:00 Laboratory Results - last 24 hr 08/02/18 16:10: WBC 19.1 H, RBC 4.95, Hgb 13.9, Hct 44.8, MCV 90.5, MCH 28.1, MCHC 31.0 L, RDW 14.1, Plt Count 260, MPV 8.9, Neut % (Auto) 88.2 H, Lymph % (Auto) 6.6 L, [place] % (Auto) 4.8, Eos % (Auto) 0.2, Baso % (Auto) 0.2, Neut # (Auto) 16.9 H, Lymph # (Auto) 1.3, [place] # (Auto) 0.9, Eos # (Auto) 0.0, Baso # (Auto) 0.1, Total Counted 100, Neutrophils % (Manual) 90 H, Lymphocytes % (Manual) 6 L, Monocytes % (Manual) 4, Platelet Estimate Normal 08/02/18 16:10: Sodium 138, Potassium 3.5 D, Chloride 101, Carbon Dioxide 30, Anion Gap 10.5, BUN 18, Creatinine 1.28 H, Estimated Creat Clear 69, Estimated GFR 42 L, Est GFR ( Amer) 51 L, Glucose 158 H, Calcium 8.5, Total Bilirubin 0.4, AST 18, ALT 36, Alkaline Phosphatase 147 H, Total Protein 7.1, Albumin 3.2 L, Globulin 3.9 H, Albumin/Globulin Ratio 0.8 L 08/02/18 16:10: Lactate 1.8 I & O for Last 24 hours: Intake & Output 07/31/18 08/01/18 08/02/18 08/03/18 11:59 11:59 11:59 11:59 Intake Total 1640 / 1640 Balance 1640 / 1640 Weight 216 lb 5 oz Microbiology Reports for the Last 24 Hours: Microbiology 08/02/18 15:15 Sputum - Expectorated Sputum Gram Stain - Final 08/02/18 15:15 Sputum - Expectorated Sputum Sputum Culture - Preliminary - Constitutional no acute distress, obese - *Routine HEENT Exam Head: Present: normocephalic, atraumatic Eye: Present: EOMI, PERRL ENT: Present: mucous membranes dry - *Routine Neck Exam Present: supple. Absent: JVD - *Routine Respiratory Exam Present: decreased breath sounds, rhonchi, wheezes - *Routine Cardiovascular Exam Present: RRR, murmur, S4 - *Routine Abdominal Exam Present: soft - *Routine Extremities Exam Absent: calf tenderness - *Routine Skin Exam Present: intact - *Routine Neurological Exam Present: alert, oriented X3, CN II-XII intact - Routine Psychiatric Exam Present: normal affect Assessment and Plan (1) Obesity (BMI 30.0-34.9) Current visit: Yes Status: Acute Category: Medical Code(s): E66.9 - Obesity, unspecified (2) Community acquired pneumonia Current visit: Yes Status: Acute Qualifiers: Laterality: left Lung location: lower lobe of lung Qualified Code(s): J18.1 - Lobar pneumonia, unspecified organism Category: Medical Code(s): J18.9 - Pneumonia, unspecified organism (3) Acute exacerbation of chronic obstructive airways disease Current visit: No Status: Acute Category: Medical Code(s): J44.1 - Chronic obstructive pulmonary disease with (acute) exacerbation
[2018-08-03 09:07] LABS: Basophils % 0.1 % (0.1-2.0); Hematocrit 44.1 % (37.0-47.0); Hemoglobin 13.3 g/dL (12.2-16.2); Lymphocytes # 0.9 K/mm3 (0.7-4.5); Lymphocytes % 4.1 % (10-50); Mean Corpuscular HGB Conc 30.1 g/dL (31.8-35.4); Mean Corpuscular Hemoglobin 27.6 pg (27.0-31.2); Mean Corpuscular Volume 91.6 fl (81-99); Mean Platelet Volume 9.1 fl (7.4-10.4); Monocytes # 0.6 K/mm3 (0.1-1.0); Monocytes % 2.9 % (1.7-9.3); Neutrophils # 19.5 K/mm3 (1.8-7.8); Neutrophils % 92.8 % (37.0-80.0); Platelet Count 271 K/mm3 (142-424); Red Blood Count 4.82 M/mm3 (4.20-5.40); Red Cell Distribution Width 14.1 % (11.5-17.5)
[2018-08-03 09:22] LABS: Blood Urea Nitrogen 18 mg/dL (7-18); Carbon Dioxide 28 mmol/L (21.0-32.0); Chloride 102 mmol/L (98-107); Glucose 278 mg/dL (74-106); Sodium 138 mmol/L (136-145)
[2018-08-03 10:44] LABS: Hypochromasia 1+; Lymphocytes % 2 % (10-50); Monocytes % 3 % (2-9); Neutrophils % 95 % (42-76); Total Cells Counted 100
--- NOTE | 2018-08-03 11:47 | Pharmacy Consult Notes ---
[facility] Pharmacy VTE Monitoring - Patient Demographics Admission date: 08/03/18 Report Date: 08/03/18 Time: 11:47 Allergies/Adverse Reactions: Patient Allergies Iodinated Contrast Media - Oral and [Iodinated Contrast Media - IV Dye] Allergy (Intermediate, Verified 08/01/18 12:59) I-RASH Penicillins [PENICILLINS] Allergy (Unknown, Verified 08/01/18 12:59) I-RASH Sulfa (Sulfonamide Antibiotics) [SULFA (SULFONAMIDE ANTIBIOTICS)] Allergy (Unknown, Verified 08/01/18 12:59) NA-NAUSEA/VOMITING Height: 1.75 m Weight: 98.118 kg Patient Problems: Current Active Problems Community acquired pneumonia (Acute) Obesity (BMI 30.0-34.9) (Acute) COPD exacerbation (Acute) - VTE Risk Labs: VTE Related Lab Results Hgb 13.3 g/dL (12.2-16.2) 08/03/18 08:58 Hct 44.1 % (37.0-47.0) 08/03/18 08:58 Plt Count 271 K/mm3 (142-424) 08/03/18 08:58 BUN 18 mg/dL (7-18) 08/03/18 08:58 Creatinine 1.74 mg/dL (0.55-1.02) H D 08/03/18 08:58 Estimated Creat Clear 50 mL/min (50-200) 08/03/18 08:58 Was VTE Risk Assessment Performed: Yes VTE Score: 6 VTE Risk Level: Moderate Risk - Prophylaxis Location of Applied Device: Bilateral Lower Extremeties (KENDRICK HOSE ORDERED)
--- NOTE | 2018-08-04 09:27 | Progress Note ---
Internal Medicine - PN: Subj Interval history: pt with slow improvement - doing better Exam Vital signs and Labs for Last 24 Hours: Temp Pulse Resp BP Pulse Ox 97.7 F 77 18 137/94 H 90 L 08/04/18 08:00 08/04/18 08:00 08/04/18 08:00 08/04/18 08:00 08/04/18 08:00 Laboratory Results - last 24 hr 08/03/18 08:58: Total Counted 100, Neutrophils % (Manual) 95 H, Lymphocytes % (Manual) 2 L, Monocytes % (Manual) 3, Platelet Estimate Normal, Hypochromasia 1+ I & O for Last 24 hours: Intake & Output 08/01/18 08/02/18 08/03/18 08/04/18 11:59 11:59 11:59 11:59 Intake Total 1640 / 1640 1380 / 1380 Balance 1640 / 1640 1380 / 1380 Weight 216 lb 5 oz 221 lb 6 oz Microbiology Reports for the Last 24 Hours: Microbiology 08/02/18 15:15 Sputum - Expectorated Sputum Gram Stain - Final 08/02/18 15:15 Sputum - Expectorated Sputum Sputum Culture - Preliminary Gram Positive Cocci - Constitutional no acute distress, obese - *Routine HEENT Exam Head: Present: normocephalic Eye: Present: EOMI, PERRL ENT: Present: mucous membranes dry - *Routine Neck Exam Present: supple. Absent: JVD - *Routine Respiratory Exam Present: rhonchi, wheezes. Absent: respiratory distress - *Routine Cardiovascular Exam Present: RRR, murmur - *Routine Abdominal Exam Present: soft - *Routine Extremities Exam Present: full ROM - *Routine Skin Exam Present: intact - *Routine Neurological Exam Present: alert, oriented X3, CN II-XII intact - Routine Psychiatric Exam Present: normal affect Assessment and Plan (1) Obesity (BMI 30.0-34.9) Current visit: Yes Status: Acute Category: Medical Code(s): E66.9 - Obes ity, unspecified (2) Community acquired pneumonia Current visit: Yes Status: Acute Qualifiers: Laterality: left Lung location: lower lobe of lung Qualified Code(s): J18.1 - Lobar pneumonia, unspecified organism Category: Medical Code(s): J18.9 - Pneumonia, unspecified organism (3) Acute exacerbation of chronic obstructive airways disease Current visit: No Status: Acute Category: Medical Code(s): J44.1 - Chronic obstructive pulmonary disease with (acute) exacerbation
[2018-08-05 09:08] LABS: Basophils % 0.1 % (0.1-2.0); Eosinophils % 0.1 % (0.1-12.0); Hematocrit 41.6 % (37.0-47.0); Hemoglobin 12.8 g/dL (12.2-16.2); Lymphocytes # 1.1 K/mm3 (0.7-4.5); Lymphocytes % 5.5 % (10-50); Mean Corpuscular HGB Conc 30.7 g/dL (31.8-35.4); Mean Corpuscular Hemoglobin 27.8 pg (27.0-31.2); Mean Corpuscular Volume 90.7 fl (81-99); Mean Platelet Volume 8.4 fl (7.4-10.4); Monocytes # 0.7 K/mm3 (0.1-1.0); Monocytes % 3.3 % (1.7-9.3); Neutrophils # 18.8 K/mm3 (1.8-7.8); Neutrophils % 91.1 % (37.0-80.0); Platelet Count 274 K/mm3 (142-424); Red Blood Count 4.58 M/mm3 (4.20-5.40); White Blood Count 20.6 K/mm3 (4.8-10.8)
[2018-08-05 09:48] LABS: Lymphocytes % 6 % (10-50); Monocytes % 1 % (2-9); Neutrophils % 93 % (42-76); Total Cells Counted 100
[2018-08-05 09:49] LABS: Hypochromasia 1+
[2018-08-05 10:48] LABS: Anion Gap 14.1 mEq/L (5-15); Calcium 8.9 mg/dL (8.5-10.1); Potassium 4.1 mmoL/L (3.5-5.1)
--- NOTE | 2018-08-05 16:28 | Progress Note ---
Internal Medicine - PN: Subj *Date: 08/05/18 *Time: 08:00 Interval history: doing better but still with sig resp sx - has been more active - still on 4 l Exam Vital signs and Labs for Last 24 Hours: Temp Pulse Resp BP Pulse Ox 98.0 F 81 20 130/67 94 L 08/05/18 15:46 08/05/18 15:46 08/05/18 15:46 08/05/18 15:46 08/05/18 15:46 Laboratory Results - last 24 hr 08/05/18 09:00: WBC 20.6 H*, RBC 4.58, Hgb 12.8, Hct 41.6, MCV 90.7, MCH 27.8, MCHC 30.7 L, RDW 14.0, Plt Count 274, MPV 8.4, Neut % (Auto) 91.1 H, Lymph % (Auto) 5.5 L, [place] % (Auto) 3.3, Eos % (Auto) 0.1, Baso % (Auto) 0.1, Neut # (Auto) 18.8 H, Lymph # (Auto) 1.1, [place] # (Auto) 0.7, Eos # (Auto) 0.0, Baso # (Auto) 0.0, Total Counted 100, Neutrophils % (Manual) 93 H, Lymphocytes % (Manual) 6 L, Monocytes % (Manual) 1 L, Platelet Estimate Normal, Hypochromasia 1+ 08/05/18 09:00: Sodium 138, Potassium 4.1, Chloride 99, Carbon Dioxide 29, Anion Gap 14.1, BUN 30 H D, Creatinine 1.47 H, Estimated Creat Clear 61, Estimated GFR 36 L, Est GFR ( Amer) 43 L, Glucose 345 H, Calcium 8.9 I & O for Last 24 hours: Intake & Output 08/03/18 08/04/18 08/05/18 08/06/18 11:59 11:59 11:59 11:59 Intake Total 1640 / 1640 1380 / 1380 780 / 780 Output Total 1100 / 1100 Balance 1640 / 1640 1380 / 1380 -320 / -320 Weight 216 lb 5 oz 221 lb 6 oz 222 lb 5 oz Microbiology Reports for the Last 24 Hours: Microbiology 08/02/18 15:15 Sputum - Expectorated Sputum Gram Stain - Final 08/02/18 15:15 Sputum - Expectorated Sputum Sputum Culture - Preliminary Gram Positive Cocci 08/02/18 16:10 Blood Blood Culture - Preliminary NO GROWTH AFTER 48 HOURS 08/02/18 16:10 Blood Blood Culture - Preliminary NO GROWTH AFTER 48 HOURS - Constitutional no acute distress, obese - *Routine HEENT Exam Head: Present: normocephalic Eye: Present: EOMI, PERRL ENT: Present: mucous membranes dry - *Routine Neck Exam Absent: JVD - *Routine Respiratory Exam Present: decreased breath sounds, prolonged expiratory phase, rhonchi, wheezes - *Routine Cardiovascular Exam Present: RRR, murmur, S4 - *Routine Abdominal Exam Present: soft - *Routine Extremities Exam Absent: calf tenderness - *Routine Skin Exam Present: intact - *Routine Neurological Exam Present: alert, oriented X3, CN II-XII intact - Routine Psychiatric Exam Present: anxious Assessment and Plan (1) Obesity (BMI 30.0-34.9) Current visit: Yes Status: Acute Category: Medical Code(s): E66.9 - Obesity, unspecified (2) Community acquired pneumonia Current visit: Yes Status: Acute Qualifiers: Laterality: left Lung location: lower lobe of lung Qualified Code(s): J18.1 - Lobar pneumonia, unspecified organism Category: Medical Code(s): J18.9 - Pneumonia, unspecified organism (3) Acute exacerbation of chronic obstructive airways disease Current visit: No Status: Acute Category: Medical Code(s): J44.1 - Chronic obstructive pulmonary disease with (acute) exacerbation (4) Tobacco abuse Current visit: Yes Status: Acute Category: Medical Code(s): Z72.0 - Tobacco use
--- NOTE | 2018-08-06 08:43 | Discharge Summary ---
General - General Admission date:: 08/02/18 Discharge date: 08/06/18 HPI HPI: pt with hx of breathing issues and presented to ed with inc sob -ortness of breath and productive cough, worsening over the past 3-4 days. Says sputum is thick. Temperature not taken at home. Denies chest pain. She has COPD, on oxygen 24 hours a day. She has a nebulizer at home. She is used it twice today. She says she has been instructed to use it every 4-6 hours. She says she quit smoking 4 days ago when she started getting the symptoms. Saw her primary care provider yesterday and was given an injection of Decadron and was started on prednisone and Mucinex. Has not improved. Called her PCP today and was advised to come to the emergency room. pt had failed op treatment of steroids and abx - Hospital Course Hospital Course: 08/02/18 chest x ray-IMPRESSION: Chronic changes with left lower lobe atelectasis and/or infiltrate 08/05/18 chest x ray- IMPRESSION: Improved left basilar atelectasis. No acute finding Sputum culture positive for gram-positive cocci and gram-positive diplococci Started IV steroids yesterday,today patient much better. Will discharge home on Zithromax and long taper of steroids. Will add increase to her inhalers. Objective Vital signs: Temp Pulse Resp BP Pulse Ox 98.0 F 88 22 128/63 89 L 08/06/18 04:00 08/06/18 06:35 08/06/18 04:00 08/06/18 04:00 08/06/18 06:35 no acute distress - *Routine HEENT Exam Head: Present: normocephalic Eye: Present: PERRL ENT: Present: mucous membranes moist - *Routine Neck Exam Present: full ROM - *Routine Respiratory Exam Present: wheezes - *Routine Cardiovascular Exam Present: RRR - *Routine Abdominal Exam Present: soft, normoactive bowel sounds - *Routine Extremities Exam Present: full ROM - *Routine Skin Exam Present: intact - *Routine Neurological Exam Present: alert, oriented X3 - Routine Psychiatric Exam Present: normal affect Results Labs on day of discharge: Labs from last 24 hours 08/05/18 08/05/18 09:00 09:00 WBC 20.6 H* RBC 4.58 Hgb 12.8 Hct 41.6 MCV 90.7 MCH 27.8 MCHC 30.7 L RDW 14.0 Plt Count 274 MPV 8.4 Neut % (Auto) 91.1 H Lymph % (Auto) 5.5 L [place] % (Auto) 3.3 Eos % (Auto) 0.1 Baso % (Auto) 0.1 Neut # (Auto) 18.8 H Lymph # (Auto) 1.1 [place] # (Auto) 0.7 Eos # (Auto) 0.0 Baso # (Auto) 0.0 Total Counted 100 Neutrophils % (Manual) 93 H Lymphocytes % (Manual) 6 L Monocytes % (Manual) 1 L Platelet Estimate Normal Hypochromasia 1+ Sodium 138 Potassium 4.1 Chloride 99 Carbon Dioxide 29 Anion Gap 14.1 BUN 30 H D Creatinine 1.47 H Estimated Creat Clear 61 Estimated GFR 36 L Est GFR ( Amer) 43 L Glucose 345 H Calcium 8.9 Preliminary micro results at discharge 08/02/18 15:15 Sputum Culture - Preliminary Sputum - Expectorated Sputum Gram Positive Cocci 08/02/18 16:10 Blood Culture - Preliminary Blood NO GROWTH AFTER 48 HOURS 08/02/18 16:10 Blood Culture - Preliminary Blood NO GROWTH AFTER 48 HOURS - Additional Comments Rounded with Dr. Jeffers all orders per Zeyad DS: Diagnosis - Discharge Diagnosis (1) Obesity (BMI 30.0-34.9) Status: Acute (2) Community acquired pneumonia Status: Acute (3) Acute exacerbation of chronic obstructive airways disease Status: Acute (4) Tobacco abuse Status: Acute Discharge Plan - Patient Discharge Instructions ACTIVITY: Continue current activity DIET: continue same diet Patient Instructions: DI for Chronic Obstructive Pulmonary Disease, DI for Pneumonia -- Adult, Low-Sodium Diet - Follow up Plan Follow up with: Ilir Jeffers MD [Staff Physician] - 1 week Disposition: Home, Self-Longterm Medications: Home Medications Medication Instructions Recorded Confirmed Type aspirin 81 mg tablet,delayed 81 mg PO DAILY #90 tab 02/21/18 08/02/18 Rx release atorvastatin 80 mg tablet 80 mg PO HS #90 tab 02/21/18 08/02/18 Rx furosemide 40 mg tablet 40 mg PO DAILY #90 tab 02/21/18 08/02/18 Rx montelukast 10 mg tablet 10 mg PO HS #90 tab 02/21/18 08/02/18 Rx omeprazole 40 mg capsule,delayed 40 mg PO DAILY #90 cap 02/21/18 08/02/18 Rx release Docusate Sodium [Dulcolax Stool 100 mg PO BID PRN 04/25/18 08/02/18 History Softener] hydrOXYzine pamoate [Vistaril] 25 mg PO HSP PRN #5 cap 04/25/18 08/02/18 Rx Albuterol Sulfate [Albuterol HFA 1 - 2 puffs INHALATION Q4HP PRN 04/28/18 08/02/18 History Inhaler] bupropion HCl 150 mg tablet,12 hr 150 mg PO BID #180 tab 05/17/18 08/02/18 Rx sustained-release(smoking deterrent) Famotidine [Acid X Ray Equipment Tester] 20 mg PO DAILY PRN 07/26/18 08/02/18 History Losartan Potassium 25 mg PO DAILY 07/26/18 08/02/18 History Metoprolol Tartrate [Lopressor 25 mg PO DAILY 07/26/18 08/02/18 History 25mg tablet] Nystatin [Nystatin Cr 100,000 1 applic TOPICAL BID PRN 07/26/18 08/02/18 History Units/GM 30GM] Tiotropium [place] [Spiriva 2 puff INHALATION DAILY 07/26/18 08/02/18 History Respimat] tizanidine 4 mg capsule 4 mg PO BID #180 cap 07/28/18 08/02/18 Rx gabapentin 600 mg tablet 600 mg PO TID #90 tab 08/01/18 08/02/18 Rx Guaifenesin/Dextromethorphan 1 tab PO Q12H 08/02/18 08/02/18 History [Mucus Rlf Dm ER 600-30 mg Tab] Ondansetron HCl [Ondansetron 4mg 4 mg PO BID 08/02/18 08/02/18 History Tablet] predniSONE [Deltasone 20mg 20 mg PO BID 08/02/18 08/02/18 History tablet] Promethazine HCl [Phenergan 25mg 25 mg PO Q8HP PRN 08/03/18 08/03/18 History tab] Azithromycin [Zithromax 250mg 250 mg PO DAILY 5 Days #5 tab 08/06/18 Rx tab] Umeclidinium Force [Incruse 62.5 mcg IH DAILY 30 Days #1 08/06/18 Rx Ellipta] blst.w.dev predniSONE [Prednisone 10mg Tab 10 mg PO DAILY 9 Days #21 pack 08/06/18 Rx Dose-Pack] Prescriptions/Medication Reconciliation: New Acetaminophen [Acetaminophen 325mg tab] 650 mg PO Q4HP PRN tablet PRN Reason: As Needed For Fever Or Pain Gabapentin [Neurontin 600mg tablet] 600 mg PO TID tablet Ipratropium/Albuterol Sulfate [Duoneb 3mL neb] 3 ml IH QIDRT ampul.neb Ropinirole HCl [Requip 0.25mg Tablet] 0.25 mg PO 2000 tablet Tizanidine HCl [Zanaflex 4mg tablet] 4 mg PO BID tablet predniSONE [Prednisone 10mg Tab Dose-Pack] 10 mg PO DAILY 9 Days #21 pack Umeclidinium Force [Incruse Ellipta] 62.5 mcg IH DAILY 30 Days #1 blst.w.dev Ipratropium/Albuterol Sulfate [Duoneb 3mL neb] 3 ml IH Q2HP PRN ampul.neb PRN Reason: SOA Azithromycin [Zithromax 250mg tab] 250 mg PO DAILY 5 Days #5 tab Continue montelukast 10 mg tablet 10 mg PO HS #90 tab omeprazole 40 mg capsule,delayed release 40 mg PO DAILY #90 cap atorvastatin 80 mg tablet 80 mg PO HS #90 tab furosemide 40 mg tablet 40 mg PO DAILY #90 tab aspirin 81 mg tablet,delayed release 81 mg PO DAILY #90 tab bupropion HCl 150 mg tablet,12 hr sustained-release(smoking deterrent) 150 mg PO BID #180 tab Docusate Sodium [Dulcolax Stool Softener] 100 mg PO BID PRN PRN Reason: Constipation Albuterol Sulfate [Albuterol HFA Inhaler] 1 - 2 puffs INHALATION Q4HP PRN PRN Reason: Shortness Of Breath Or Wheezing Nystatin [Nystatin Cr 100,000 Units/GM 30GM] 1 applic TOPICAL BID PRN PRN Reason: breathing Metoprolol Tartrate [Lopressor 25mg tablet] 25 mg PO DAILY Losartan Potassium 25 mg PO DAILY Famotidine [Acid X Ray Equipment Tester] 20 mg PO DAILY PRN PRN Reason: stomach Guaifenesin/Dextromethorphan [Mucus Rlf Dm ER 600-30 mg Tab] 1 tab PO Q12H hydrOXYzine pamoate [Vistaril] 25 mg PO HSP PRN #5 cap PRN Reason: Sleep Ondansetron HCl [Ondansetron 4mg Tablet] 4 mg PO BID Discontinued tizanidine 4 mg capsule 4 mg PO BID #180 cap gabapentin 600 mg tablet 600 mg PO TID #90 tab Tiotropium Force [Spiriva Respimat] 2 puff INHALATION DAILY predniSONE [Deltasone 20mg tablet] 20 mg PO BID Promethazine HCl [Phenergan 25mg tab] 25 mg PO Q8HP PRN PRN Reason: Nausea And Vomiting
== END 2018-08-06 12:08 | disposition home or self-care (01) | DRG 190 ==
LOC: ER 14:50 → 2ND 14:50
PROVIDERS: ADMIT Family Medicine; ATTEND Emergency Medicine
CPT/HCPCS: 36415; 71020; 71046; 80048; 80053; 83605; 83880; 84484; 85007; 85025; 87040; 87070; 87077; 87186; 87205; 94640; 94761; 96365; 96375; 99282; J0456; J2405

== ENCOUNTER → 2018-08-13 10:04 | Outpatient (POV) | payer MEDICARE, MEDICAID, SELFPAY | PROVIDERS: Visit Provider Internal Medicine | DX: Z00.00 Encounter for general adult medical examination without abnormal findings (principal) ==

== ENCOUNTER → 2018-09-03 10:27 | Outpatient (POV) | payer MEDICARE, MEDICAID, SELFPAY ==
[2018-09-03 10:48] VITALS: BP 100/50; PULSE 73; RESP 18; O2SAT 99; BMI 31.0
--- NOTE | 2018-09-03 11:01 | P.CONS_ITS ---
[facility] Pain Management SOAP Note Subjective:: Patient is a pleasant 63-year-old white female who presents today for follow-up after her second medial branch block. Patient had 80% relief of her symptoms for several weeks. Patient is interested in having a RFA of this area. Patient currently rates her pain an 8 out of 10. Patient states that twisting movements make it worse. She is continuing a home stretching program and is on anti- inflammatories. ROS General: no recent weight change, no fever, no sleep disturbances Respiratory: no cough, no shortness of air, no recurring pulmonary infections Cardiovascular/Peripheral Vascular: No chest pain, No palpitations, no edema, no shortness of breath. Gastrointestinal: no incontinence, normal bowel movements reported Genitourinary: no incontinence Musculoskeletal: Back pain Psychiatric: normal mood/ affect Neurological: [denies weakness in extremities], [denies balance issues] Objective:: Physical Exam General: Alert and oriented x3, no acute distress, pleasant and cooperative, [on room air] Lungs: Resps E/U, Symmetrical chest expansion, Eyes: PERRL Musculoskeletal: Flexion and extension of lumbar spine somewhat guarded secondary to pain, deep tendon reflexes normal, strength in upper and lower extremities [5/5], slightly antalgic gait noted, positive Kemps test bilateral lumbar spine Neurological: speech clear, road worker equal, no gross sensory deficits Assessment:: Degenerative disc disease lumbar spine with lumbar spondylosis and facet arthropathy Plan:: We will plan on a risotto me of the levels L3-L4 L4-L5 L5-S1 bilaterally. We will start with the right side in 2 weeks later do the left side. Patient's not on any anticoagulation therapy. I will follow-up with the patient after her rhizotomy. Dr. Hawkins has reviewed this note and agrees with this plan of care. This note was dictated using voice recognition software and may contain errors or omissions
== END ==
PROVIDERS: PCP Emergency Medicine; Visit Provider Clinical Nurse Specialist Family Health
DX: M51.36 Other intervertebral disc degeneration, lumbar region (principal); M47.896 Other spondylosis, lumbar region; M54.06 Panniculitis affecting regions of neck and back, lumbar region
CPT/HCPCS: 99213

== ENCOUNTER → 2018-09-25 09:20 | Outpatient (CLI) | payer MEDICARE, MEDICAID, SELFPAY ==
[2018-09-25 11:17] LABS: Blood Urea Nitrogen 18 mg/dL (7-18); Calcium 8.7 mg/dL (8.5-10.1); Carbon Dioxide 28 mmol/L (21.0-32.0); Chloride 105 mmol/L (98-107); Creatinine,Serum 1.09 mg/dL (0.55-1.02); Estimated Glomerular Filt Rate 50 ml/min (>60); GFR (African American) 61 ML/MIN (>60); Glucose 211 mg/dL (74-106); Sodium 139 mmol/L (136-145)
== END ==
PROVIDERS: Visit Provider Internal Medicine Cardiovascular Disease
DX: R06.02 Shortness of breath; I50.9 Heart failure, unspecified; E66.9 Obesity, unspecified; I11.9 Hypertensive heart disease without heart failure; I25.10 Atherosclerotic heart disease of native coronary artery without angina pectoris; E78.49 Other hyperlipidemia; J20.9 Acute bronchitis, unspecified; J44.0 Chronic obstructive pulmonary disease with (acute) lower respiratory infection; N28.9 Disorder of kidney and ureter, unspecified; R53.83 Other fatigue; R60.0 Localized edema; Z72.0 Tobacco use; Z95.810 Presence of automatic (implantable) cardiac defibrillator
CPT/HCPCS: 36415; 80048; 83880

== ENCOUNTER → 2018-09-30 13:04 | Outpatient (CLI) | payer MEDICARE, MEDICAID, SELFPAY ==
--- NOTE | 2018-09-30 13:10 | CT_ITS ---
CT lung screening EXAM: CT LUNG LOW DOSE WO CONTRAST HISTORY: Greater than 40 pack-year smoking history asymptomatic for lung cancer ITS.REASON: TOBACCO USE ORDERING PHYSICIAN: Carlos Newby MD PATIENT AGE: 63 years COMPARISON: None TECHNIQUE: The exam was performed on a GE Light Speed [address] scanner using 2.90 mGy CTDI. A low dose helical CT CHEST was performed on a multi-detector scanner. All CT scans at the facility use one or more dose reduction, viz: automated exposure control, ma/kV adjustment per patient size (including targeted exams where dose is matched to indication, i.e. head), or iterative reconstruction technique. The LDCT was performed in a facility that meets the criteria for the screening program. Data regarding this exam was submitted to ACR which is an approved registry. The order for this exam indicates that it came as a result of a lung cancer screening counseling shard decision-making visit that included all the elements required of such a visit including smoking cessation. The radiologist interpreting this exam meets the [facility] criteria for the LDCT lung cancer screening program. The exam is reported using the Lung-RADS classification scale and reported to the ACR registry. NOTE: This study was performed for the specific purposes of lung cancer screening and is not an alternative to diagnostic chest CT. RADIATION DOSE: CTDI vol(CT dose Index-volume) = 2.90mG DLP (Dose Length Product) = 105.91 mGcm FINDINGS: Cardiac pacemaker device is present from left subclavian approach. Normal heart size. Centrilobular emphysema. Pneumatocele at 2.5 cm present in the right lung base. No suspicious pulmonary nodules. Mild bronchial thickening with hyperinflation consistent with COPD. Mild degenerative change thoracic spine. IMPRESSION: 1. Lung RADS Category: 1, negative 2. Other findings: Centrilobular emphysema, COPD RECOMMENDATIONS: 12 month LDCT follow-up
== END ==
PROVIDERS: PCP Emergency Medicine; Visit Provider Internal Medicine
DX: Z12.2 Encounter for screening for malignant neoplasm of respiratory organs (principal); Z87.891 Personal history of nicotine dependence; J44.9 Chronic obstructive pulmonary disease, unspecified

== ENCOUNTER → 2018-10-15 10:00 | Outpatient (POV) | payer MEDICARE, MEDICAID, SELFPAY ==
[2018-10-15 10:10] VITALS: BP 129/47; PULSE 68; RESP 18; O2SAT 98; BMI 32.5
--- NOTE | 2018-10-15 16:30 | HMH.PAINSOAP ---
[facility] Pain Management SOAP Note Subjective:: Patient is a pleasant 63-year-old white female who presents today for follow-up. Patient rates her pain a 9 out of 10 stating that she is having increased back pain. Patient is following up after a left sided L4-L5 L5-S1 radiofrequency ablation. She stated that she did extremely well after her injections and her RFA however several days ago she began to have extreme pain in that side and muscle spasms. Patient is wanting narcotic medication I discussed with her that we would not be giving her any narcotic medication at this time due to the acute nature of her pain also due to her failure of a pill count in the past. Patient and I did briefly discuss the pain pump potentially a Prialt pump. ROS General: no recent weight change, no fever, no sleep disturbances Respiratory: no cough, no shortness of air, no recurring pulmonary infections Cardiovascular/Peripheral Vascular: No chest pain, No palpitations, no edema, no shortness of breath. Gastrointestinal: no incontinence, normal bowel movements reported Genitourinary: no incontinence Musculoskeletal: Back pain Psychiatric: normal mood/ affect Neurological: [denies weakness in extremities], [denies balance issues] Objective:: Physical Exam General: Alert and oriented x3, no acute distress, pleasant and cooperative, [on room air] Lungs: Resps E/U, Symmetrical chest expansion, Eyes: PERRL Musculoskeletal: Flexion and extension of lumbar spine somewhat guarded secondary to pain, deep tendon reflexes normal, strength in upper and lower extremities [5/5], [abnormal gait noted] Neurological: speech clear, 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 Patient is currently on gabapentin 601 p.o. 3 times daily. If she is still having extreme pain we may discuss something like a neurostimulator or intrathecal pain pump. Dr. Hawkins has reviewed this note and agrees with this plan of care. This note was dictated using voice recognition software and may contain errors or omissions
== END ==
PROVIDERS: PCP Emergency Medicine; Visit Provider Clinical Nurse Specialist Family Health
DX: M51.36 Other intervertebral disc degeneration, lumbar region (principal); M47.816 Spondylosis without myelopathy or radiculopathy, lumbar region; M54.06 Panniculitis affecting regions of neck and back, lumbar region
CPT/HCPCS: 99213

== ENCOUNTER → 2018-10-26 11:05 | Outpatient (CLI) | payer MEDICARE, MEDICAID, SELFPAY ==
[2018-10-26 12:39] LABS: C-Reactive Protein < 0.2 mg/L (0.0-0.9)
[2018-10-26 12:52] LABS: Erythrocyte Sedimentation Rate 10 mm/hr (0-30)
[2018-10-27 18:30] LABS: RA Latex Turbid. <10.0 IU/mL (0.0-13.9)
[2018-10-28 13:13] LABS: dRVVT 35.6 sec (0.0-47.0)
[2018-10-28 14:29] LABS: Anti-Centromere B Antibodies <0.2 AI (0.0-0.9); Anti-Jo-1 <0.2 AI (0.0-0.9); Anti-Smith Antibody <0.2 AI (0.0-0.9); Antichromatin Antibodies <0.2 AI (0.0-0.9); Antiscleroderma-70 Antibodies <0.2 AI (0.0-0.9); RNP Antibodies <0.2 AI (0.0-0.9); Sjogren's Anti-SS-A <0.2 AI (0.0-0.9); Sjogren's Anti-SS-B <0.2 AI (0.0-0.9)
[2018-10-29 07:01] LABS: Anti-Cyclic Citrullinated Pept 3 units (0-19); Anti-DNA (DS) Ab Qn <1 IU/mL (0-9); Lupus Reflex Interpretation Comment: (.)
== END ==
PROVIDERS: Visit Provider Nurse Practitioner Family
DX: M25.50 Pain in unspecified joint (principal)
CPT/HCPCS: 36415; 85613; 85651; 86140; 86200; 86225; 86235; 86431

== ENCOUNTER → 2018-11-08 10:54 | Outpatient (CLI) | payer MEDICARE, MEDICAID, SELFPAY ==
--- NOTE | 2018-11-08 10:55 | MM_ITS ---
MM Dig screening mamm BI w/CAD ORDERING PHYSICIAN : Ramona Sweeney PATIENT AGE: 63 years GENDER: Female COMPARISON: February 2017, January 2016, July 2014, January 2013 bilateral digital screening mammogram studies INDICATION: ITS routine screening mammogram. No hormones. No new complaints Previous stereotactic biopsy right breast. Family history.: Mother with breast cancer age 65 TECHNIQUE: Standard CC and MLO images were obtained. R2 CAD reviewed. Nipple profile CC views bilaterally included FINDINGS: Lower density breast bilaterally-with. Moderate diffuse generalized fatty replacement.... [id number] residual fibroglandular elements retroareolar region extending towards upper outer quadrant. No new areas of significant concern in either breast. No dominant nor suspicious mass. No suspicious calcifications. RIGHT BREAST:No new areas of significant concern.. Small focal density at deep central breast on cc view only is a stable feature present on studies dating back back to 2010 Stable moderate-sized axillary nodes again noted LEFT BREAST:No new areas of significant concern. Area of glandular tissue towards superior left breast on MLO view is noted but appears stable. A pacemaker of at the deep axillary left breast again noted ......... IMPRESSION: ...... . Stable bilateral mammogram. No new areas of significant concern. Lower density breast. Follow follow-up in one year recommended BI-RADS Category: 2 Benign Finding(s) RECOMMENDED FOLLOW-UP: 1YR 1 YEAR FOLLOW-UP (A letter has been sent to the patient regarding results of the study.)
== END ==
PROVIDERS: PCP Nurse Practitioner Family; Visit Provider Nurse Practitioner Family
DX: Z12.31 Encounter for screening mammogram for malignant neoplasm of breast (principal)
CPT/HCPCS: 77067

== ENCOUNTER → 2018-11-12 18:06 | Outpatient (CLI) | payer MEDICARE, MEDICAID, SELFPAY ==
[2018-11-12 21:48] LABS: Amphetamine/Metha Screen,Urine Negative ng/mL (<1000); Barbiturates Screen,Urine Negative ng/mL (<200); Benzodiazepines Screen,Urine Negative ng/mL (<200); Cannabinoid Screen,Urine Negative ng/mL (<50); Cocaine Screen,Urine Negative ng/mL (<300); Methadone Screen,Urine Negative ng/mL (<300); Opiate Screen,Urine Negative ng/mL (<300); Phencyclidine Screen,Urine Negative ng/mL (<25)
[2018-11-16 19:07] LABS: Gabapentin,Urine 712.7 ug/mL (.)
== END ==
PROVIDERS: Visit Provider Nurse Practitioner Family
DX: M51.16 Intervertebral disc disorders with radiculopathy, lumbar region (principal)
CPT/HCPCS: 80305; 80307

== ENCOUNTER → 2018-11-19 09:32 | Outpatient (POV) | payer MEDICARE, MEDICAID, SELFPAY | PROVIDERS: Visit Provider Internal Medicine | DX: Z00.00 Encounter for general adult medical examination without abnormal findings (principal) ==

== ENCOUNTER → 2018-12-10 10:59 | Outpatient (POV) | payer MEDICARE, MEDICAID, SELFPAY ==
--- NOTE | 2018-12-10 11:09 | HMH.PAINSOAP ---
[facility] Pain Management SOAP Note Subjective:: Patient is a pleasant 63-year-old white female who presents today for follow-up. Patient rates her pain a 6 out of 10 today. Patient is following up after a radiofrequency ablation. Patient is wanting narcotic medication I discussed with her that we would not be giving her any narcotic medication at this time due to the acute nature of her pain also due to her failure of a pill count in the past. Patient and I did briefly discuss the neuro stimulator. Patient complains of knee pain pain bilaterally. She has not had any injections in her knees but is interested in ti. ROS General: no recent weight change, no fever, no sleep disturbances Respiratory: no cough, no shortness of air, no recurring pulmonary infections Cardiovascular/Peripheral Vascular: No chest pain, No palpitations, no edema, no shortness of breath. Gastrointestinal: no incontinence, normal bowel movements reported Genitourinary: no incontinence Musculoskeletal: Back pain, knee pain Psychiatric: normal mood/ affect Neurological: [denies weakness in extremities], [denies balance issues] Objective:: Physical Exam General: Alert and oriented x3, no acute distress, pleasant and cooperative, [on room air] Lungs: Resps E/U, Symmetrical chest expansion, Eyes: PERRL Musculoskeletal: Flexion and extension of lumbar spine somewhat guarded secondary to pain, deep tendon reflexes normal, strength in upper and lower extremities [5/5], [abnormal gait noted] decreased range of motion bilateral knees secondary to pain Neurological: speech clear, 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 I did discuss potential neuro stimulation she is interested in this we will send her with some information today. We will also set her up with bilateral knee injections. Dr. Hawkins has reviewed this note and agrees with this plan of care. This note was dictated using voice recognition software and may contain errors or omissions
[2018-12-10 11:12] VITALS: BP 141/83; PULSE 69; RESP 18; O2SAT 98; BMI 32.5
--- NOTE | 2018-12-10 11:14 | P.CONS_ITS ---
[facility] Pain Management SOAP Note Subjective:: Patient is a pleasant 63-year-old white female who presents today for follow-up. Patient rates her pain a 6 out of 10 today. Patient is following up after a radiofrequency ablation. Patient is wanting narcotic medication I discussed with her that we would not be giving her any narcotic medication at this time due to the acute nature of her pain also due to her failure of a pill count in the past. Patient and I did briefly discuss the neuro stimulator. Patient complains of knee pain pain bilaterally. She has not had any injections in her knees but is interested in ti. ROS General: no recent weight change, no fever, no sleep disturbances Respiratory: no cough, no shortness of air, no recurring pulmonary infections Cardiovascular/Peripheral Vascular: No chest pain, No palpitations, no edema, no shortness of breath. Gastrointestinal: no incontinence, normal bowel movements reported Genitourinary: no incontinence Musculoskeletal: Back pain, knee pain Psychiatric: normal mood/ affect Neurological: [denies weakness in extremities], [denies balance issues] Objective:: Physical Exam General: Alert and oriented x3, no acute distress, pleasant and cooperative, [on room air] Lungs: Resps E/U, Symmetrical chest expansion, Eyes: PERRL Musculoskeletal: Flexion and extension of lumbar spine somewhat guarded secondary to pain, deep tendon reflexes normal, strength in upper and lower extremities [5/5], [abnormal gait noted] decreased range of motion bilateral knees secondary to pain Neurological: speech clear, inventory accountant equal, no gross sensory deficits Assessment:: Degenerative disc disease lumbar spine,Lumbar spondylosis, facet arthropathy, bilateral knee pain Plan:: Patient and I had a discussion in regards to the fact that we will no longer be giving her any narcotic medications due to past failed pill count. I did discuss potential neuro stimulation she is interested in this we will send her with some information today. We will also set her up with bilateral knee injections. Dr. Hawkins has reviewed this note and agrees with this plan of care. This note was dictated using voice recognition software and may contain errors or omissions
== END ==
PROVIDERS: PCP Nurse Practitioner Family; Visit Provider Clinical Nurse Specialist Family Health
DX: M51.36 Other intervertebral disc degeneration, lumbar region (principal); M47.896 Other spondylosis, lumbar region; M54.06 Panniculitis affecting regions of neck and back, lumbar region; M25.561 Pain in right knee; M25.562 Pain in left knee
CPT/HCPCS: 99212

== ENCOUNTER → 2018-12-26 11:31 | Outpatient (CLI) | payer MEDICARE, MEDICAID, SELFPAY ==
--- NOTE | 2018-12-26 11:34 | NM_ITS ---
CARDIOLITE SPECT MYOCARDIAL PERFUSION LEXISCAN, REST AND STRESS: [facility] REVIEW QGS EF AND WALL MOTION EVALUATION: QPS - PERFUSION EVALUATION HISTORY: Chest pain, SOB, Palpitations, Fatigue, Obesity, HTN, Tobacco use, Family history DOSE: 10.13 mCi technetium 99m mibi intravenously at rest followed by 31.1 mCi technetium 99m mibi following the intravenous ministration of 0.4 mg of Lexiscan. Resting blood pressure is 126/76. Stress blood pressure 128/72. FINDINGS: Ejection fraction is calculated to be 56%. Stress images reveal decreased activity in the mid anterior apical wall while rest images reveal uniform myocardial activity IMPRESSION: Reversible ischemia in the mid anterior apical wall with normal ejection fraction normal wall motion. High risk abnormal stress test
--- NOTE | 2018-12-26 14:43 | HMH.ITSHM ---
Current Home Medications as stated by this patient Yaritza Stallings or labor relations representative. []TRAZODONE TIZANIDINE ROPINIROLE OMEPRAZOLE LORATADINE GABAPENTIN FAMOTIDINE ASA ATORVASTATIN METOPROLOL
== END ==
PROVIDERS: PCP Nurse Practitioner Family; Visit Provider Urology
DX: R07.9 Chest pain, unspecified (principal); R55 Syncope and collapse; R06.02 Shortness of breath; I11.0 Hypertensive heart disease with heart failure; F17.200 Nicotine dependence, unspecified, uncomplicated; G62.9 Polyneuropathy, unspecified; I25.10 Atherosclerotic heart disease of native coronary artery without angina pectoris; I50.9 Heart failure, unspecified; J20.9 Acute bronchitis, unspecified; J44.0 Chronic obstructive pulmonary disease with (acute) lower respiratory infection; N28.9 Disorder of kidney and ureter, unspecified; R60.0 Localized edema; E78.5 Hyperlipidemia, unspecified; Z79.899 Other long term (current) drug therapy; Z95.810 Presence of automatic (implantable) cardiac defibrillator
CPT/HCPCS: 78452; 93017; A9502; J2785

== ENCOUNTER 2018-12-27 09:44 | Day surgery (SDC) | payer MEDICARE, MEDICAID, SELFPAY ==
[2018-12-27 10:00] VITALS: BP 144/89; PULSE 70; RESP 16; TEMP 37.1; O2SAT 94; BMI 34.0
[2018-12-27 10:35] VITALS: BP 145/87
[2018-12-27 10:36] VITALS: BP 135/87; PULSE 89; RESP 18; O2SAT 98
--- NOTE | 2018-12-27 10:37 | HMH.PMPROC ---
- Procedure Date: 12/27/18 Time: 10:37 Anesthesiologist:: Zachariah Hawkins MD Complications:: None Pre-procedure Diagnosis:: Bilateral knee pain with degenerative osteoarthritis Post-procedure Diagnosis:: Same Indications for Procedure:: This patient is a pleasant 63-year-old white female who we are treating for bilateral knee pain with degenerative osteoarthritis. She did get some benefit from her back pain with previous radiofrequency ablation. Most of her knee pain is due to degenerative osteoarthritis. We will do bilateral intra-articular knee injections today. Procedure Details:: Bilateral intra-articular knee injection Informed consent was obtained and the risk and benefits of the procedure was explained to the patient. Patient was taken to the procedure room. Both knees were prepped using ChloraPrep. A 25-gauge needle was used first laterally then medially to inject 10 mL bupivacaine 0.25% of Medrol 40 mg into each knee. Patient tolerated the procedure well with no complications. Plan and Disposition:: We will follow-up with this patient in 2 weeks. Will reevaluate her symptoms at that time.
[2018-12-27 10:48] VITALS: BP 120/69; PULSE 69; RESP 20; TEMP 37.1; O2SAT 93
== END 2018-12-27 10:50 | disposition home or self-care (01) ==
PROVIDERS: PCP Nurse Practitioner Family; Visit Provider Anesthesiology
DX: M17.0 Bilateral primary osteoarthritis of knee (principal)
CPT/HCPCS: 20610; J1030

== ENCOUNTER → 2019-01-10 17:11 | Outpatient (CLI) | payer MEDICARE, MEDICAID, SELFPAY ==
[2019-01-10 18:33] LABS: Amphetamine/Metha Screen,Urine Negative ng/mL (<1000); Barbiturates Screen,Urine Negative ng/mL (<200); Benzodiazepines Screen,Urine Negative ng/mL (<200); Cannabinoid Screen,Urine Negative ng/mL (<50); Cocaine Screen,Urine Negative ng/mL (<300); Methadone Screen,Urine Negative ng/mL (<300); Opiate Screen,Urine Positive ng/mL (<300); Phencyclidine Screen,Urine Negative ng/mL (<25)
[2019-01-10 18:50] LABS: Free T4 (Free Thyroxine) 1.12 ng/dl (0.76-1.46); Thyroid Stimulating Hormone 2.48 uIU/ml (0.358-3.740)
[2019-01-13 03:14] LABS: Triiodothyronine (T3) Free 3.1 pg/mL (2.0-4.4)
== END ==
PROVIDERS: Visit Provider Nurse Practitioner Family
DX: R53.83 Other fatigue (principal); Z79.899 Other long term (current) drug therapy
CPT/HCPCS: 80305; 84439; 84443; 84481

== ENCOUNTER → 2019-01-14 13:20 | Outpatient (CLI) | payer MEDICARE, MEDICAID, SELFPAY ==
[2019-01-14 15:40] LABS: Amphetamine/Metha Screen,Urine Negative ng/mL (<1000); Barbiturates Screen,Urine Negative ng/mL (<200); Benzodiazepines Screen,Urine Negative ng/mL (<200); Cannabinoid Screen,Urine Negative ng/mL (<50); Cocaine Screen,Urine Negative ng/mL (<300); Methadone Screen,Urine Negative ng/mL (<300); Opiate Screen,Urine Negative ng/mL (<300); Phencyclidine Screen,Urine Negative ng/mL (<25)
== END ==
PROVIDERS: Visit Provider Nurse Practitioner Family
DX: Z79.899 Other long term (current) drug therapy (principal)
CPT/HCPCS: 80305

== ENCOUNTER → 2019-02-07 12:06 | Outpatient (CLI) | payer MEDICARE, MEDICAID, SELFPAY | PROVIDERS: Visit Provider Nurse Practitioner Family | DX: R19.7 Diarrhea, unspecified (principal) ==

== ENCOUNTER 2019-02-10 11:43 | Outpatient (CLI) | payer MEDICARE, MEDICAID, SELFPAY ==
[2019-02-10 11:54] VITALS: BMI 29.0
[2019-02-10 12:15] VITALS: BP 117/65; PULSE 70; RESP 20; O2SAT 94
[2019-02-10 12:24] LABS: Microscopic, Urine URINE MICROSCOPIC (MICROSCOPIC)
[2019-02-10 12:33] LABS: Appearance,Urine CLEAR (Clear); Bilirubin,Urine Negative (Negative); Blood, Urine Negative (Negative); Color,Urine YELLOW (Yellow); Glucose,Urine (UA) Negative (Negative); Ketones,Urine Negative (Negative); Leukocyte Esterase,Urine Negative (Negative); Nitrate,Urine Negative (Negative); Protein,Urine TRACE (Negative); Specific Gravity, Urine 1.025 (1.005-1.030); Urobilinogen,Urine 0.2 EU/dl (0.2)
[2019-02-10 12:34] LABS: Basophils % 0.2 % (0.1-2.0); Eosinophils % 0.1 % (0.1-12.0); Hematocrit 42.4 % (37.0-47.0); Hemoglobin 13.8 g/dL (12.2-16.2); Lymphocytes # 2.2 K/mm3 (0.7-4.5); Lymphocytes % 10.6 % (10-50); Mean Corpuscular HGB Conc 32.5 g/dL (31.8-35.4); Mean Corpuscular Hemoglobin 28.3 pg (27.0-31.2); Mean Platelet Volume 8.5 fl (7.4-10.4); Monocytes # 1.4 K/mm3 (0.1-1.0); Monocytes % 6.7 % (1.7-9.3); Neutrophils # 16.7 K/mm3 (1.8-7.8); Neutrophils % 82.3 % (37.0-80.0); Platelet Count 186 K/mm3 (142-424); Red Blood Count 4.87 M/mm3 (4.20-5.40); Red Cell Distribution Width 14.7 % (11.5-17.5); White Blood Count 20.2 K/mm3 (4.8-10.8)
[2019-02-10 12:37] LABS: MANUAL DIFFERENTIAL MANUAL DIFFERENTIAL (MANUAL DIFF)
[2019-02-10 12:42] LABS: Alanine Aminotransferase 51 U/L (12-78); Albumin Level 3.8 gm/dL (3.4-5.0); Albumin/Globulin Ratio 1.2 (1.1-1.8); Alkaline Phosphatase 122 U/L (46-116); Anion Gap 13.2 mEq/L (5-15); Bilirubin,Total 0.6 mg/dL (0.2-1.0); Blood Urea Nitrogen 19 mg/dL (7-18); Calcium 9.7 mg/dL (8.5-10.1); Carbon Dioxide 27 mmol/L (21.0-32.0); Chloride 105 mmol/L (98-107); Creatinine Clearance Estimated 56 mL/min (50-200); Creatinine,Serum 1.33 mg/dL (0.55-1.02); Estimated Glomerular Filt Rate 40 ml/min (>60); GFR (African American) 48 ML/MIN (>60); Globulin 3.2 gm/dl (1.3-3.2); Glucose 127 mg/dL (74-106); Sodium 141 mmol/L (136-145)
[2019-02-10 12:50] LABS: Bacteria,Urine Trace /lpf; WBC,Urine Occasional #/hpf (0-3)
[2019-02-10 12:51] LABS: Potassium 4.2 mmoL/L (3.5-5.1)
[2019-02-10 12:52] LABS: Aspartate Amino Transferase 34 U/L (15-37)
[2019-02-10 12:55] LABS: Lymphocytes % 13 % (10-50); Monocytes % 5 % (2-9); Neutrophils % 79 % (42-76); Total Cells Counted 100
[2019-02-10 12:56] LABS: Platelet Estimate Normal
[2019-02-10 13:21] VITALS: BP 103/69; PULSE 69; RESP 20; O2SAT 96
[2019-02-10 14:00] VITALS: BP 109/54; PULSE 71; RESP 20; O2SAT 92
[2019-02-10 15:25] VITALS: BP 119/60; PULSE 60; RESP 20; O2SAT 93
--- NOTE | 2019-02-10 16:12 | PC.NURSE ---
1215-lung powers checked pt has wheezes in all powers
--- NOTE | 2019-02-10 16:17 | PC.NURSE ---
1321-auscultated lung powers wheezes sound worse decreased bolus to infuse over 2 hours
--- NOTE | 2019-02-10 16:18 | PC.NURSE ---
1525-auscultated pt lung powers no change and pt states she felt better.
== END 2019-02-10 15:25 | disposition home or self-care (01) ==
LOC: INF 11:44
PROVIDERS: PCP Physician Assistant; Visit Provider Physician Assistant
DX: E86.0 Dehydration (principal); R33.9 Retention of urine, unspecified; R19.7 Diarrhea, unspecified
CPT/HCPCS: 80053; 81001; 85007; 85025; 87086; 96360; 96361

== ENCOUNTER 2019-02-11 15:27 | Observation (INO) ==
--- NOTE | 2019-02-11 16:00 | Emergency Department Note ---
ED Disposition Clinical Impression: Gastroenteritis COPD (chronic obstructive pulmonary disease) Qualifiers: COPD type: unspecified COPD Qualified Code(s): J44.9 - Chronic obstructive pulmonary disease, unspecified Depression Qualifiers: Depression Type: unspecified Qualified Code(s): F32.9 - Major depressive disorder, single episode, unspecified Disposition: Admitted as Observation Condition on Discharge: Fair Referrals: Ilir Jeffers MD [Primary Care Provider] - - Critical Care Critical Care Time: No Attestation: On 02/11/19, the high probability of a clinically significant, sudden or life threatening deterioration of the following system(s) required my full and direct attention, intervention and personal management. The time I documented below is in addition to time spent performing reported procedures but includes the following listed in this critical care notation. Medical Decision Making - Anibal Inquiry Pt receiving controlled substance: No Vital Signs: 02/11/19 15:40 Temperature 97.9 F Temperature Source Oral Pulse Rate [Right Radial] 70 Respiratory Rate 18 Blood Pressure [Right Arm] 145/66 H Blood Pressure Mean [Right Arm] 92 Blood Pressure Source [Right Arm] Automatic Cuff Blood Pressure Position [Right Arm] Sitting 02 Sat by Pulse Oximetry 93 L Oxygen Delivery Method Room Air - Lab Data Lab Results 02/11/19 15:47: Urine Color Yellow, Urine Appearance Clear, Urine pH 6.0, Ur Specific Richards 1.025, Urine Protein Negative, Urine Glucose (UA) Negative, Urine Ketones Negative, Urine Blood Trace-l, Urine Nitrate Negative, Urine Bilirubin Negative, Urine Urobilinogen 0.2, Ur Leukocyte Esterase Negative, Urine WBC Occasional, Ur Squamous Epith Cells 3-5, Urine Bacteria Trace 02/11/19 16:04: WBC 10.2 D, RBC 4.98, Hgb 13.7, Hct 44.0, MCV 88.2, MCH 27.4, MCHC 31.1 L, RDW 14.7, Plt Count 167, MPV 8.6, Neut % (Auto) 73.8, Lymph % (Auto) 19.7, [place] % (Auto) 4.6, Eos % (Auto) 1.4, Baso % (Auto) 0.5, Neut # (Auto) 7.5, Lymph # (Auto) 2.0, [place] # (Auto) 0.5, Eos # (Auto) 0.1, Baso # (Auto) 0.1 07/16/19 16:04: Sodium 144, Potassium 3.8, Chloride 106, Carbon Dioxide 28, Ani on Gap 13.8, BUN 16, Creatinine 1.22 H, Estimated Creat Clear 72, Estimated GFR 44 L, Est GFR ( Amer) 54 L, Glucose 120 H, Calcium 9.3, Total Bilirubin 0.5, AST 28, ALT 50, Alkaline Phosphatase 124 H, Total Protein 6.8, Albumin 3.8, Globulin 3.0, Albumin/Globulin Ratio 1.3, Amylase 28 02/11/19 16:04: Lactate 0.9 02/11/19 16:04: Lipase 108 Result diagrams: 02/11/19 16:04 02/11/19 16:04 Orders (Tests/Meds): ED MEDICATIONS Generic Name Dose Route Start Last Admin Trade Name Freq PRN Reason Stop Dose Admin Sodium Chloride 1,000 mls @ 150 mls/hr 02/11/19 17:15 Sod Chlor 0.9% 1000ml Bag IV 03/13/19 17:14 .[id number] [facility] ORDERS Category Date Time Status Diarrhea 23 Panel, PCR Stat Lab 02/11/19 16:23 Ordered Blood Culture Stat Micro 02/11/19 16:04 Received - Radiology Data #1 Image(s): Chest Image Reviewed: Yes I reviewed the patient's radiology image, Yes I have reviewed radiologist's interpretation Preliminary Findings: Normal/NAD - CT Data CT Scan: Abdomen, Pelvis Time Received: 17:[address] Reviewed: Yes: I have viewed the radiologist's interpretation Findings Narrative: IMPRESSION: 1. No acute findings. 2. Nonobstructing bilateral renal calculi. Dictated By: Roman Cardenas MD 02/11/19 [id number] - Physician Consults Physician Consulted: Mandeep Arechiga NP for Dr. Jeffers Time: 17:38 Reason -: Admission Comment/Response: Patient has had multiple visits over the past couple of weeks. Failing to improve on outpatient therapy. Agrees to admit the patient to the hospital. We discussed the patient's clinical information, including history, exam, laboratory and radiology results and ED course. Per hospital procedure, I will write temporary bridge inpatient orders on the patient. Specific orders requested by the admitting physician: IV fluids, steroids and nebulizer treatments, nausea medication. Consult Maria Dolores for psychiatric evaluation tomorrow. General Adult HPI - General Chief complaint: Weakness Stated complaint: Weakness, constipation, no appetite Time Seen by Provider: 02/11/19 16:10 Mode of Arrival: Ambulatory Limitations: No Limitations Description of Symptoms (Recalled from ER Triage Doc. by RN): PT C/O ONGOING WE AKNESS, LETHARGY, N/V/D SINCE DX OF PNEUMONIA ON 02/01/19. PT STATES THAT SHE STILL DOESN'T HAVE AN APPETITE, HAS A COUGH AND JUST DOESN'T FEEL WELL. PT ADVISES THAT SHE HAD OUTPATIENT LABS AND FLUID INFUSION YESTERDAY PER PCP - History of Present Illness HPI narrative: Patient has been sick for couple of weeks. Initially seen at the urgent treatment center on 02/02/2019 for 4 days of vomiting diarrhea and cough. Diagnosed with pneumonia and started on Z-Ambrose. Followed up with her primary care provider on 02/04/2019 and doxycycline was added. Diarrhea panel was ordered, patient brought a sample to the hospital, but for some reason it was rejected and canceled. Came to the emergency department on 02/09/2019 where she was seen by me. At that point pneumonia had cleared on her chest x-ray, but she was still having diarrhea, coughing and wheezing. Laboratory work-up was unremarkable. Attempted to provide a diarrhea sample in the emergency room, but toilet hat fell into the toilet. She was having some wheezing and was started on prednisone. Given Zofran for nausea and vomiting. Seen by her primary care provider yesterday and was sent back to the hospital for outpatient IV fluids and labs. Says that she called her primary care doctor today reporting she was not improved and was told to come back to the emergency room. She says she continued to have diarrhea yesterday, but has not had a bowel movement today. Continues to complain of coughing and shortness of breath. States that she had to use her as needed oxygen today. Continuing to take prednisone. Finished antibiotics on Sunday. Says that a neighbor told her that she had a fever last night, says her temperature was taken, but she does not know what her temperature was. Also now complains of diffuse abdominal pain/cramps. Says she is still having vomiting. Also states that she was up all night long with anxiety and stress and at times "feels like she does not want to go on". - Related Data Home Medications Medication Instructions Recorded Confirmed Albuterol Sulfate [Albuterol HFA 1 - 2 puffs INHALATION Q4HP PRN 04/28/18 02/10/19 Inhaler] Azithromycin [Z-Ambrose 250mg Tab] 250 mg PO UD DOSE PK 02/09/19 02/10/19 Doxepin HCl [Sinequan 25mg capsule] 25 mg PO QHS 02/09/19 02/10/19 Doxycycline Hyclate [Vibra-Tab 100 mg PO BID 02/09/19 02/10/19 100mg tablet] Loratadine [Allergy Relief] 10 mg PO DAILY 02/09/19 02/10/19 Terbinafine HCl [Lamisil At] 1 applic TOPICAL BID 02/09/19 02/10/19 Tizanidine HCl [Zanaflex 4mg 4 mg PO BID 02/09/19 02/10/19 tablet] Verapamil HCl [Verapamil ER] 120 mg PO DAILY 02/09/19 02/10/19 buPROPion HCl [Wellbutrin Xl] 300 mg PO DAILY 02/09/19 02/10/19 Previous Rx's Medication Instructions Recorded aspirin 81 mg tablet,delayed 81 mg PO DAILY #90 tab 02/21/18 release atorvastatin 80 mg tablet 80 mg PO HS #90 tab 02/21/18 Ipratropium/Albuterol Sulfate 3 ml IH Q2HP PRN ampul.neb 08/06/18 [Duoneb 3mL neb] furosemide 40 mg tablet 40 mg PO BID PRN #72 tab 09/12/18 famotidine 20 mg tablet 20 mg PO DAILY PRN #30 tab 10/09/18 fluticasone fur. 100 mcg-umeclid 1 inh INHALATION DAILY #1 each 11/08/18 62.5 mcg-vilant 25 mcg inhalat.powder omeprazole 40 mg capsule,delayed 40 mg PO DAILY #90 cap 11/27/18 release ropinirole 0.25 mg tablet 0.25 mg PO QHS #90 tab 12/19/18 losartan 25 mg tablet 25 mg PO DAILY #90 tab 01/07/19 metoprolol tartrate 25 mg tablet 25 mg PO DAILY #90 tab 01/07/19 gabapentin 600 mg tablet 600 mg PO TID #90 tab 01/10/19 Ondansetron [Zofran 4mg ODT] 4 mg PO TIDP PRN #10 tab.rapdis 02/09/19 predniSONE [Prednisone 20mg 20 mg PO BID #10 tab 02/09/19 Tab] aripiprazole 5 mg tablet 5 mg PO QHS #30 tab 02/11/19 Allergies Allergy/AdvReac Type Severity Reaction Status Date / Time Iodinated Contrast Media - Allergy Intermediate I-RASH Verified 02/10/19 10:56 Oral and [Iodinated Contrast Media - IV Dye] Penicillins [PENICILLINS] Allergy Unknown I-RASH Verified 02/10/19 10:56 Sulfa (Sulfonamide Allergy Unknown NA-NAUSEA/V Verified 02/10/19 10:56 Antibiotics) OMITING [SULFA (SULFONAMIDE ANTIBIOTICS)] [facility] History - Hepatitis A Screen Drug use history?: No High risk sexual behaviors?: No History of sexually transmitted infection?: No Currently employed?: No Childcare worker?: No Do you have indoor plumbing?: Yes Do you have electricity?: Yes Attestation statement:: This patient has been screened for Hepatitis A risk factors. I have reviewed the patient's past medical history: Yes Medical History: Reports:: Anxiety, Atherosclerotic Heart Disease, Congestive Heart Failure, Chronic Obstructive Pulmonary Disease (COPD), Congenital Heart Disease, Coronary Artery Disease, Gastroesophageal Reflux Disease(GERD), Hyperlipidemia, Hypertension, Internal Pacemaker, Lung Disease (o2 at night/COPD), Renal Disease Denies:: Cancer, Diabetes Mellitus Type 1, Diabetes Mellitus Type 2, MRSA, Seizures Other Medical History: Reports: Arthritis, Cataracts, Thyroid Disease Laterality Cases: Right: Arthroscopy Knee Other Surgeries: Yes: No Previous Surgery, Cardiac Catheterization, Cardiac Surgery, Cholecystectomy, Colonoscopy, EGD, Hysterectomy-Total, Pacemaker, Thyroidectomy, Other (gallbladder, cyst removed form wrist) Amputation: No Fractures: No Comment: Knee surgery, wrist surgery - Social History Smoking Status: Current every day smoker Tobacco Type: cigarettes # Packs/Day (cigarettes): 1 #Yrs smoked (if former smoker): 30 Alcohol Intake: never Alcohol Intake Frequency:: other Substance Use Type: denies use Occupational Status: disabled Housing: apartment Household Members: none - Psychiatric History Pschychiatric History:: Reports:: Anxiety Family Hx:: Hypertension ROS Obtained: Yes All systems reviewed & no additional complaints - Constitutional Constitutional: Reports fatigue, Reports fever(s), Reports poor appetite, Reports weakness - Respiratory Respiratory: Yes cough, Yes dyspnea, Yes wheezing - Gastrointestinal Gastrointestingal: Reports: abdominal pain, diarrhea, nausea, vomiting Physical Exam - General General appearance: alert, in no apparent distress - Head Head exam: atraumatic, normocephalic - Eye Eye exam: Present: normal appearance, EOMI - ENT ENT exam: Present: mucous membranes moist - Neck Neck exam: Present: normal inspection, trachea midline - Chest Chest inspection: Present: normal inspection, symmetric chest wall rise - Respiratory Respiratory exam: Present: normal lung sounds bilaterally. Absent: respiratory distress - Cardiovascular Cardiovascular exam: Present: regular rate, normal rhythm, normal heart sounds - Abdominal Exam Abdominal exam: Present: soft, tenderness, normal bowel sounds. Absent: distention, guarding, rebound, rigidity Abdominal tenderness: Present: diffuse - Extremities Exam Extremities exam: Present: normal inspection - Neurological Exam Neurological exam: Present: alert, oriented X3 - Psychiatric Psychiatric exam: Present: depressed, anxious, flat affect - Skin Skin exam: Present: warm, dry
[2019-02-11 16:10] LABS: Microscopic, Urine URINE MICROSCOPIC (MICROSCOPIC)
[2019-02-11 16:20] LABS: Basophils # 0.1 K/mm3 (0-0.2); Basophils % 0.5 % (0.1-2.0); Eosinophils # 0.1 K/mm3 (0.0-0.4); Eosinophils % 1.4 % (0.1-12.0); Hemoglobin 13.7 g/dL (12.2-16.2); Lymphocytes % 19.7 % (10-50); Mean Corpuscular HGB Conc 31.1 g/dL (31.8-35.4); Mean Corpuscular Volume 88.2 fl (81-99); Mean Platelet Volume 8.6 fl (7.4-10.4); Monocytes # 0.5 K/mm3 (0.1-1.0); Monocytes % 4.6 % (1.7-9.3); Neutrophils # 7.5 K/mm3 (1.8-7.8); Neutrophils % 73.8 % (37.0-80.0); Platelet Count 167 K/mm3 (142-424); Red Blood Count 4.98 M/mm3 (4.20-5.40); Red Cell Distribution Width 14.7 % (11.5-17.5); White Blood Count 10.2 K/mm3 (4.8-10.8)
[2019-02-11 16:33] LABS: Albumin Level 3.8 gm/dL (3.4-5.0); Albumin/Globulin Ratio 1.3 (1.1-1.8); Anion Gap 13.8 mEq/L (5-15); Bilirubin,Total 0.5 mg/dL (0.2-1.0); Calcium 9.3 mg/dL (8.5-10.1); Total Protein,Serum 6.8 gm/dL (6.4-8.2)
[2019-02-11 16:35] LABS: Appearance,Urine CLEAR (Clear); Bilirubin,Urine Negative (Negative); Blood, Urine TRACE-L (Negative); Color,Urine YELLOW (Yellow); Glucose,Urine (UA) Negative (Negative); Ketones,Urine Negative (Negative); Leukocyte Esterase,Urine Negative (Negative); Protein,Urine Negative (Negative); Specific Gravity, Urine 1.025 (1.005-1.030); Urobilinogen,Urine 0.2 EU/dl (0.2)
[2019-02-11 16:50] LABS: Bacteria,Urine Trace /lpf; WBC,Urine Occasional #/hpf (0-3)
--- NOTE | 2019-02-12 07:55 | Pharmacy Consult Notes ---
[facility] Pharmacy VTE Monitoring - Patient Demographics Admission date: 02/11/19 Report Date: 02/12/19 Time: 07:55 Allergies/Adverse Reactions: Patient Allergies Iodinated Contrast Media - Oral and [Iodinated Contrast Media - IV Dye] Allergy (Intermediate, Verified 02/10/19 10:56) I-RASH Penicillins [PENICILLINS] Allergy (Unknown, Verified 02/10/19 10:56) I-RASH Sulfa (Sulfonamide Antibiotics) [SULFA (SULFONAMIDE ANTIBIOTICS)] Allergy (Unknown, Verified 02/10/19 10:56) NA-NAUSEA/VOMITING Height: 1.75 m Weight: 102.767 kg Patient Problems: Current Active Problems (Updated 02/11/19 @ 17:38 by Missael Ramirez MD) Depression (Acute) COPD (chronic obstructive pulmonary disease) (Chronic) Gastroenteritis (Acute) - VTE Risk Labs: VTE Related Lab Results Hgb 13.7 g/dL (12.2-16.2) 02/11/19 16:04 Hct 44.0 % (37.0-47.0) 02/11/19 16:04 Plt Count 167 K/mm3 (142-424) 02/11/19 16:04 BUN 16 mg/dL (7-18) 02/11/19 16:04 Creatinine 1.22 mg/dL (0.55-1.02) H 02/11/19 16:04 Estimated Creat Clear 72 mL/min (50-200) 02/11/19 16:04 Was VTE Risk Assessment Performed: Yes VTE Score: 4 VTE Risk Level: Low Risk Clinical Trial Participant: No - Prophylaxis VTE Prophylaxis Ordered?: Yes Types of VTE Prophylaxis: TEDS Knee High Location of Applied Device: Refused
--- NOTE | 2019-02-12 12:39 | History & Physical Report ---
*Admission Date: 02/11/19 *Chief complaint: does not feel well *History of present illness: this wf was seen in the ed and has not felt well with increased copd sx and has dec po intake with gastric sx - she was seen in the ed - Description of Symptoms (Recalled from ER Triage Doc. by RN): PT C/O ONGOING WEAKNESS, LETHARGY, N/V/D SINCE DX OF PNEUMONIA ON 02/01/19. PT STATES THAT SHE STILL DOESN'T HAVE AN APPETITE, HAS A COUGH AND JUST DOESN'T FEEL WELL. PT ADVISES THAT SHE HAD OUTP ATIENT LABS AND FLUID INFUSION YESTERDAY Patient has been sick for couple of weeks. Initially seen at the urgent treatment center on 02/02/2019 for 4 days of vomiting diarrhea and cough. Diagnosed with pneumonia and started on Z-Ambrose. Followed up with her primary care provider on 02/04/2019 and doxycycline was added. Diarrhea panel was ordered, patient brought a sample to the hospital, but for some reason it was rejected and canceled. Came to the emergency department on 02/09/2019 where she was seen by me. At that point pneumonia had cleared on her chest x-ray, but she was still having diarrhea, coughing and wheezing. Laboratory work-up was unremarkable. Attempted to provide a diarrhea sample in the emergency room, but toilet hat fell into the toilet. She was having some wheezing and was started on prednisone. Given Zofran for nausea and vomiting. Seen by her primary care provider yesterday and was sent back to the hospital for outpatient IV fluids and labs. Says that she called her primary care doctor today reporting she was not improved and was told to come back to the emergency room. She says she continued to have diarrhea yesterday, but has not had a bowel movement today. Continues to complain of coughing and shortness of breath. States that she had to use her as needed oxygen today. Continuing to take prednisone. Finished antibiotics on Sunday. Says that a neighbor told her that she had a fever last night, says her temperature was taken, but she does not know what her temperature was. Also now complains of diffuse abdominal pain/cramps. Says she is still having vomiting. Also states that she was up all night long with anxiety and stress and at times "feels like she does not want to go on". pt was admitted for ivf and continued eval [facility] History I have reviewed the patient's past medical history: Yes Medical History: Reports:: Anxiety, Atherosclerotic Heart Disease, Congestive Heart Failure, Chronic Obstructive Pulmonary Disease (COPD), Congenital Heart Disease, Coronary Artery Disease, Gastroesophageal Reflux Disease(GERD), Hyperlipidemia, Hypertension, Internal Pacemaker, Lung Disease (o2 at night/COPD), Renal Disease Denies:: Cancer, Diabetes Mellitus Type 1, Diabetes Mellitus Type 2, MRSA, Seizures *Have you ever received a pneumonia vaccine?: Yes *Have you received a flu vaccine this season?: Yes Other Medical History: Reports: Arthritis, Cataracts, Thyroid Disease Laterality Cases: Right: Arthroscopy Knee Other Surgeries: Yes: No Previous Surgery, Cardiac Catheterization, Cardiac Surgery, Cholecystectomy, Colonoscopy, EGD, Hysterectomy-Total, Pacemaker, Thyroidectomy, Other (wrist surgery) Amputation: No Fractures: No - *Social History Smoking Status: Current every day smoker Tobacco Type: cigarettes # Packs/Day (cigarettes): 1 #Yrs smoked (if former smoker): 30 Alcohol Intake: never Alcohol Intake Frequency:: other Substance Use Type: denies use *Occupational Status:: disabled Housing: apartment Household Members: none *Travel in the last 8 weeks: None - Psychiatric History Pschychiatric History:: Reports:: Anxiety Family Hx:: Hypertension Review of Systems - Review of Systems Review of systems:: pertinent systems reviewed and negative unless documented below - Constitutional Reports fatigue, Reports malaise, Reports weakness, Denies fever(s) - Eyes Denies change in vision - ENT Denies change in voice - *Cardiovascular Reports shortness of breath with activity, Reports lightheadedness, Denies chest pain, Denies rapid, pounding, or irregular heartbeat - *Respiratory Reports cough, Reports shortness of breath, Reports wheezing, Denies coughing up blood - *Gastrointestinal Reports abdominal pain, Reports loose stools, Reports nausea, Denies vomiting blood - *Genitourinary Denies urinary incontinence - *Musculoskeletal Denies joint pain, Denies neck pain - Integumentary/Breasts Denies rash - *Neurologic Reports weakness, Denies abnormal speech, Denies seizure-like activity, Denies frequent falls - Psychiatric Reports lack of enjoyment, Reports depression Meds Home Medications Medication Instructions Recorded Confirmed Type aspirin 81 mg tablet,delayed 81 mg PO DAILY #90 tab 02/21/18 02/11/19 Rx release atorvastatin 80 mg tablet 80 mg PO HS #90 tab 02/21/18 02/11/19 Rx Albuterol Sulfate [Albuterol HFA 1 - 2 puffs INHALATION Q4HP PRN 04/28/18 02/11/19 History Inhaler] Ipratropium/Albuterol Sulfate 3 ml IH Q2HP PRN ampul.neb 08/06/18 02/11/19 Rx [Duoneb 3mL neb] omeprazole 40 mg capsule,delayed 40 mg PO DAILY #90 cap 11/27/18 02/11/19 Rx release ropinirole 0.25 mg tablet 0.25 mg PO QHS #90 tab 12/19/18 02/11/19 Rx losartan 25 mg tablet 25 mg PO DAILY #90 tab 01/07/19 02/11/19 Rx metoprolol tartrate 25 mg tablet 25 mg PO DAILY #90 tab 01/07/19 02/11/19 Rx gabapentin 600 mg tablet 600 mg PO TID #90 tab 01/10/19 02/11/19 Rx Ondansetron [Zofran 4mg ODT] 4 mg PO TIDP PRN #10 tab.rapdis 02/09/19 02/11/19 Rx Fluticasone/Umeclidin/Vilanter 1 puff PO DAILY 02/11/19 02/11/19 History [Trelegy Ellipta 100-62.5-25] Trazodone HCl 100 mg PO HS 02/11/19 02/11/19 History Verapamil HCl [Verapamil Sr] 120 mg PO DAILY 02/11/19 02/12/19 History buPROPion HCl [Bupropion Xl] 300 mg PO DAILY 02/11/19 02/11/19 History ARIPiprazole [Aripiprazole 5mg 5 mg PO HS 02/12/19 02/12/19 History Tablet] Furosemide [Furosemide 40MG tAB] 40 mg PO DIRECTED 02/12/19 02/12/19 History Montelukast Sodium [Montelukast 10 mg PO HS 02/12/19 02/12/19 History 10mg Tab] Allergies Allergy/AdvReac Type Severity Reaction Status Date / Time Iodinated Contrast Media - Allergy Intermediate I-RASH Verified 02/10/19 10:56 Oral and [Iodinated Contrast Media - IV Dye] Penicillins [PENICILLINS] Allergy Unknown I-RASH Verified 02/10/19 10:56 Sulfa (Sulfonamide Allergy Unknown NA-NAUSEA/V Verified 02/10/19 10:56 Antibiotics) OMITING [SULFA (SULFONAMIDE ANTIBIOTICS)] Exam Vital signs and Labs for Last 24 Hours: Temp Pulse Resp BP Pulse Ox 98.5 F 71 20 134/63 93 L 02/12/19 07:53 02/12/19 09:48 02/12/19 07:53 02/12/19 07:53 02/12/19 07:53 Laboratory Results - last 24 hr 02/11/19 15:47: Urine Color Yellow, Urine Appearance Clear, Urine pH 6.0, Ur Specific [place] 1.025, Urine Protein Negative, Urine Glucose (UA) Negative, Urine Ketones Negative, Urine Blood Trace-l, Urine Nitrate Negative, Urine Bilirubin Negative, Urine Urobilinogen 0.2, Ur Leukocyte Esterase Negative, Ur ine WBC Occasional, Ur Squamous Epith Cells 3-5, Urine Bacteria Trace 02/11/19 16:04: WBC 10.2 D, RBC 4.98, Hgb 13.7, Hct 44.0, MCV 88.2, MCH 27.4, MCHC 31.1 L, RDW 14.7, Plt Count 167, MPV 8.6, Neut % (Auto) 73.8, Lymph % (Auto) 19.7, [place] % (Auto) 4.6, Eos % (Auto) 1.4, Baso % (Auto) 0.5, Neut # (Auto) 7.5, Lymph # (Auto) 2.0, [place] # (Auto) 0.5, Eos # (Auto) 0.1, Baso # (Auto) 0.1 02/11/19 16:04: Sodium 144, Potassium 3.8, Chloride 106, Carbon Dioxide 28, Anion Gap 13.8, BUN 16, Creatinine 1.22 H, Estimated Creat Clear 72, Estimated GFR 44 L, Est GFR ( Amer) 54 L, Glucose 120 H, Calcium 9.3, Total Bilirubin 0.5, AST 28, ALT 50, Alkaline Phosphatase 124 H, Total Protein 6.8, Albumin 3.8, Globulin 3.0, Albumin/Globulin Ratio 1.3, Amylase 28 02/11/19 16:04: Lactate 0.9 02/11/19 16:04: Lipase 108 I & O for Last 24 hours: Intake & Output 02/10/19 02/11/19 02/12/19 02/13/19 11:59 11:59 11:59 11:59 Output Total 1040 / 1040 Balance -1040 / -1040 Weight 226 lb 9 oz - Constitutional no acute distress, obese - *Routine HEENT Exam Head: Present: normocephalic Eye: Present: EOMI, PERRL ENT: Present: mucous membranes dry - *Routine Neck Exam Present: full ROM. Absent: JVD - *Routine Respiratory Exam Present: wheezes - *Routine Cardiovascular Exam Present: RRR, murmur, S4 - *Routine Abdominal Exam Present: soft - *Routine Extremities Exam Absent: calf tenderness - *Routine Skin Exam Present: intact - *Routine Neurological Exam Present: alert, oriented X3, CN II-XII intact - Routine Psychiatric Exam Present: depressed Assessment and Plan (1) COPD (chronic obstructive pulmonary disease) Current visit: Yes Status: Acute Qualifiers: COPD type: COPD with acute exacerbation Qualified Code(s): J44.1 - Chronic obstructive pulmonary disease with (acute) exacerbation Category: Medical Code(s): J44.9 - Chronic obstructive pulmonary disease, unspecified (2) Depression Current visit: Yes Status: Acute Qualifiers: Depression Type: unspecified Qualified Code(s): F32.9 - Major depressive disorder, single episode, unspecified Category: Medical Code(s): F32.9 - Major depressive disorder, single episode, unspecified (3) Obesity (BMI 30.0-34.9) Current visit: Yes Status: Acute Category: Medical Code(s): E66.9 - Obesity, unspecified (4) Tobacco use Current visit: Yes Status: Acute Category: Medical Code(s): Z72.0 - Tobacco use (5) Renal insufficiency Current visit: Yes Status: Acute Category: Medical Code(s): N28.9 - Disorder of kidney and ureter, unspecified
--- NOTE | 2019-02-12 16:54 | Consult Report ---
*Admission Date: 02/11/19 *Reason for consult:: depression *History of present illness: Consulted on patient for increased depression. -she is a known patient to me; [facility] I [facility] her [facility] -at this time I changed her sleeping medicine from trazodone 100mg at bedtime to doxepin 25mg at bedtime I interviewed her at her bedside today; she is in her room alone. She states that she originally came to the ER for diarrhea; and for pneumonia. She states that she is also here cause of her depression. She states that she remembers getting really sick first then thinking that things are nto going to get better and the depression got worse. -states she has been trying to get ahold of her family but found out her brother changed his number and never told her -that she is to the point she does not care any longer -she states her neighbors don't care about her and these are the only people she really has in her life -she is not sure what medications she was taking -she knows she was taking the trazodone at night to sleep and her abilify -she states that she remembers us talking about starting her on the dxoepin but she never did this -she is still taking the trazodone -her nephew did go to her house and look at her medicines -the wellbutrin that she was supposed to be taking was an empty bottle -she does not remember how long ago she ran out of this -states that the depression got worse about 2 weeks ago -she states that they are going to start fresh with her medicines when she leaves here; the pharmacy here 'clinic' is going to package them up for her in the daily pull apart packages -she states that she just got confused on her medicines -she is not sure if this is what started the depression again or not -denies any thoughts to harm self -no SI/HI RECOMMENDATIONS: 1. Restart Wellbutrin XL 150mg daily. 2. Continue Traozodne at 100mg at bedtime (what she reports she is taking) 3. Stop Doxepin. 4. Continue Abilify 5mg at bedtime,. TIME IN: 1015am TIME OUT: 1045am [facility] History Medical History: Reports:: Anxiety, Atherosclerotic Heart Disease, Congestive Heart Failure, Chronic Obstructive Pulmonary Disease (COPD), Congenital Heart Disease, Coronary Artery Disease, Gastroesophageal Reflux Disease(GERD), Hyperl ipidemia, Hypertension, Internal Pacemaker, Lung Disease (o2 at night/COPD), Renal Disease Denies:: Cancer, Diabetes Mellitus Type 1, Diabetes Mellitus Type 2, MRSA, Seizures *Have you ever received a pneumonia vaccine?: Yes *Have you received a flu vaccine this season?: Yes Other Medical History: Reports: Arthritis, Cataracts, Thyroid Disease Laterality Cases: Right: Arthroscopy Knee Other Surgeries: Yes: No Previous Surgery, Cardiac Catheterization, Cardiac Surgery, Cholecystectomy, Colonoscopy, EGD, Hysterectomy-Total, Pacemaker, Thyroidectomy, Other (wrist surgery) Amputation: No Fractures: No - *Social History Smoking Status: Current every day smoker Tobacco Type: cigarettes # Packs/Day (cigarettes): 1 #Yrs smoked (if former smoker): 30 Alcohol Intake: never Alcohol Intake Frequency:: other Substance Use Type: denies use *Occupational Status:: disabled Housing: apartment Household Members: none *Travel in the last 8 weeks: None - Psychiatric History Pschychiatric History:: Reports:: Anxiety Family Hx:: Hypertension Review of Systems - *Neurologic Reports weakness, Denies abnormal speech, Denies seizure-like activity, Denies frequent falls Meds Home Medications Medication Instructions Recorded Confirmed Type aspirin 81 mg tablet,delayed 81 mg PO DAILY #90 tab 02/21/18 02/11/19 Rx release atorvastatin 80 mg tablet 80 mg PO HS #90 tab 02/21/18 02/11/19 Rx Albuterol Sulfate [Albuterol HFA 1 - 2 puffs INHALATION Q4HP PRN 04/28/1801/27 History Inhaler] Ipratropium/Albuterol Sulfate 3 ml IH Q2HP PRN ampul.neb 08/06/18 02/11/19 Rx [Duoneb 3mL neb] omeprazole 40 mg capsule,delayed 40 mg PO DAILY #90 cap 11/27/18 02/11/19 Rx release ropinirole 0.25 mg tablet 0.25 mg PO QHS #90 tab 12/19/18 02/11/19 Rx losartan 25 mg tablet 25 mg PO DAILY #90 tab 01/07/19 02/11/19 Rx metoprolol tartrate 25 mg tablet 25 mg PO DAILY #90 tab 01/07/19 02/11/19 Rx gabapentin 600 mg tablet 600 mg PO TID #90 tab 01/10/19 02/11/19 Rx Ondansetron [Zofran 4mg ODT] 4 mg PO TIDP PRN #10 tab.rapdis 02/09/19 Rx Fluticasone/Umeclidin/Vilanter 1 puff PO DAILY 02/11/19 02/11/19 History [Trelegy Ellipta 100-62.5-25] Trazodone HCl 100 mg PO HS 02/11/19 02/11/19 History Verapamil HCl [Verapamil Sr] 120 mg PO DAILY 02/11/19 02/12/19 History buPROPion HCl [Bupropion Xl] 300 mg PO DAILY 02/11/19 02/11/19 History ARIPiprazole [Aripiprazole 5mg 5 mg PO HS 02/12/19 02/12/19 History Tablet] Furosemide [Furosemide 40MG tAB] 40 mg PO DIRECTED 02/12/19 02/12/19 History Montelukast Sodium [Montelukast 10 mg PO HS 02/12/19 02/12/19 History 10mg Tab] Allergies Allergy/AdvReac Type Severity Reaction Status Date / Time Iodinated Contrast Media - Allergy Intermediate I-RASH Verified 02/10/19 10:56 Oral and [Iodinated Contrast Media - IV Dye] Penicillins [PENICILLINS] Allergy Unknown I-RASH Verified 02/10/19 10:56 Sulfa (Sulfonamide Allergy Unknown NA-NAUSEA/V Verified 02/10/19 10:56 Antibiotics) OMITING [SULFA (SULFONAMIDE ANTIBIOTICS)] Exam Vital signs and Labs for Last 24 Hours: Temp Pulse Resp BP Pulse Ox 98.4 F 70 18 132/69 95 02/12/19 16:00 02/12/19 16:00 02/12/19 16:00 02/12/19 16:00 02/12/19 16:00 Laboratory Results - last 24 hr 02/11/19 15:47: Urine WBC Occasional, Ur Squamous Epith Cells 3-5, Urine Bacteria Trace 02/12/19 13:32: ESR 8 I & O for Last 24 hours: Intake & Output 02/10/19 02/11/19 02/12/19 02/13/19 11:59 11:59 11:59 11:59 Output Total 1040 / 1040 240 / 240 Balance -1040 / -1040 -240 / -240 Weight 226 lb 9 oz Internal Medicine - CN: Reslt - Labs CBC & Chem 7: 02/11/19 16:04 02/11/19 16:04
--- NOTE | 2019-02-13 08:33 | Discharge Summary ---
General - General Admission date:: 02/11/19 Discharge date: 02/13/19 HPI HPI: 63-year-old female patient sitting up in bed this morning. Respirations easy even she reports she is had no chest pain no shortness of breath during the night. She admits she is feeling better she denies suicidal or homicidal ideation. Informed she will be discharged this afternoon, case management has discussed various ways for patient to increase interaction with public, and various activities for her to engage in. Mental health is seen and recommendations followed. She will follow-up in primary care in 1 week and continue with mental health. this wf was seen in the ed and has not felt well with increased copd sx and has dec po intake with gastric sx - she was seen in the ed - Description of Symptoms (Recalled from ER Triage Doc. by RN): PT C/O ONGOING WEAKNESS, LETHARGY, N/V/D SINCE DX OF PNEUMONIA ON 02/01/19. PT STATES THAT SHE STILL DOESN'T HAVE AN APPETITE, HAS A COUGH AND JUST DOESN'T FEEL WELL. PT ADVISES THAT SHE HAD OUTP ATIENT LABS AND FLUID INFUSION YESTERDAY Patient has been sick for couple of weeks. Initially seen at the urgent treatment center on 02/02/2019 for 4 days of vomiting diarrhea and cough. Diagnosed with pneumonia and started on Z-Ambrose. Followed up with her primary care provider on 02/04/2019 and doxycycline was added. Diarrhea panel was ordered, patient brought a sample to the hospital, but for some reason it was rejected and canceled. Came to the emergency department on 02/09/2019 where she was seen by me. At that point pneumonia had cleared on her chest x-ray, but she was still having diarrhea, coughing and wheezing. Laboratory work-up was unremarkable. Attempted to provide a diarrhea sample in the emergency room, but toilet hat fell into the toilet. She was having some wheezing and was started on prednisone. Given Zofran for nausea and vomiting. Seen by her primary care provider yesterday and was sent back to the hospital for outpatient IV fluids and labs. Says that she called her primary care doctor today reporting she was not improved and was told to come back to the emergency room. She says she continued to have diarrhea yesterday, but has not had a bowel movement today. Continues to complain of coughing and shortness of breath. States that she had to use her as needed oxygen today. Continuing to take prednisone. Finished antibiotics on Sunday. Says that a neighbor told her that she had a fever last night, says her temperature was taken, but she does not know what her temperature was. Also now complains of diffuse abdominal pain/cramps. Says she is still having vomiting. Also states that she was up all night long with anxiety and stress and at times "feels like she does not want to go on". pt was admitted for ivf and continued eval Hospital Course Hospital Course: 63-year-old female patient seen in the emergency room 02/11/2019 for COPD exacerbation, decreased p.o. intake, and nausea vomiting and diarrhea. She has been sick for several weeks she was treated for pneumonia on 02/01/2019 and received a Z-Ambrose for that. Followed up in primary care on 02/04/2019 and doxycycline was added at that time. Diarrhea panel was ordered but was rejected and canceled for some unknown reason. Was in the emergency room 02/09/2019, chest x-ray was negative that point she was still complaining of diarrhea and COPD symptoms. Lab work at that time was normal. She was started on prednisone and given Zofran for nausea and vomiting also. She was seen by her primary care report provider on 02/11/2019, was sent to emergency room for IV fluids and lab work. At this time she was also complaining of a fever (no temperature taken) and diffuse abdominal pain with cramping she was also complaining of vomiting. Since her admission she is received IV fluids, IV steroids, tolerating p.o. intake, no further episodes of nausea, vomiting, diarrhea and she is no longer C/O SOA. She voices no complaints at this time. She will be discharged home today, case MNGT has discussed various activities for patient to engage in. Patient has no suicidal ideation or, suicidal ideation and is agreeable to discharge at this point. 02/11/2019 Abd/Pelvis CT: IMPRESSION: 1. No acute findings. 2. Nonobstructing bilateral renal calculi. Dictated By: Roman Cardenas MD 02/11/2019 CXR: IMPRESSION: No acute finding Dictated By: Roman Cardenas MD Objective Vital signs: Temp Pulse Resp BP Pulse Ox 98.2 F 77 18 117/50 L 97 02/13/19 04:00 07/18/19 06:15 02/13/19 04:00 02/13/19 04:00 02/13/19 06:15 no acute distress - *Routine HEENT Exam Head: Present: normocephalic, atraumatic. Absent: tenderness of temporal artery Eye: Present: EOMI, PERRL. Absent: periorbital tenderness ENT: Present: mucous membranes dry. Absent: sinus tenderness - *Routine Neck Exam Present: full ROM, trachea midline. Absent: lymphadenopathy, tracheal deviation - *Routine Respiratory Exam Present: wheezes. Absent: accessory muscle use - *Routine Cardiovascular Exam Present: murmur - *Routine Abdominal Exam Present: soft, normoactive bowel sounds. Absent: tenderness - *Routine Extremities Exam Present: full ROM, pulses intact. Absent: cyanosis - Routine Back/Spine/Pelvis Exam Back/Spine: Present: full ROM. Absent: CVA tenderness, pain with flexion - *Routine Skin Exam Present: intact, normal turgor. Absent: cyanosis, mottling - *Routine Neurological Exam Present: alert, oriented X3, CN II-XII intact. Absent: pronator drift - Routine Psychiatric Exam Present: normal affect, normal thought process. Absent: suicidal ideation, homicidal ideation Results Labs on day of discharge: Labs from last 24 hours 02/12/19 13:32 ESR 8 - Additional Comments Rounded with Dr. Jeffers, all orders per Dr. Jeffers DS: Diagnosis - Discharge Diagnosis (1) COPD (chronic obstructive pulmonary disease) Status: Acute (2) Depression Status: Acute (3) Obesity (BMI 30.0-34.9) Status: Acute (4) Tobacco use Status: Acute (5) Renal insufficiency Status: Acute Discharge Plan - Patient Discharge Instructions ACTIVITY: Continue current activity DIET: continue same diet Patient Instructions: DI for Depression -- Adult, DI for Chronic Obstructive Pulmonary Disease, DI for Bacterial Gastroenteritis -- Adult - Follow up Plan Follow up with: Ilir Jeffers MD [Primary Care Provider] - 1 week Maria Dolores Cerrato APRN [Nurse Practitioner] - 2 weeks Disposition: Home, Self-Nursing Home Medications: Home Medications Medication Instructions Recorded Confirmed Type aspirin 81 mg tablet,delayed 81 mg PO DAILY #90 tab 02/21/18 02/11/19 Rx release atorvastatin 80 mg tablet 80 mg PO HS #90 tab 02/21/18 02/11/19 Rx Albuterol Sulfate [Albuterol HFA 1 - 2 puffs INHALATION Q4HP PRN 04/28/18 02/11/19 History Inhaler] Ipratropium/Albuterol Sulfate 3 ml IH Q2HP PRN ampul.neb 08/06/18 02/11/19 Rx [Duoneb 3mL neb] omeprazole 40 mg capsule,delayed 40 mg PO DAILY #90 cap 11/27/18 02/11/19 Rx release ropinirole 0.25 mg tablet 0.25 mg PO QHS #90 tab 12/19/18 02/11/19 Rx losartan 25 mg tablet 25 mg PO DAILY #90 tab 01/07/19 02/11/19 Rx metoprolol tartrate 25 mg tablet 25 mg PO DAILY #90 tab 01/07/19 02/11/19 Rx gabapentin 600 mg tablet 600 mg PO TID #90 tab 01/10/19 02/11/19 Rx Ondansetron [Zofran 4mg ODT] 4 mg PO TIDP PRN #10 tab.rapdis 02/09/19 02/11/19 Rx Fluticasone/Umeclidin/Vilanter 1 puff PO DAILY 02/11/19 02/11/19 History [Trelegy Ellipta 100-62.5-25] Trazodone HCl 100 mg PO HS 02/11/19 02/11/19 History Verapamil HCl [Verapamil Sr] 120 mg PO DAILY 02/11/19 02/12/19 History ARIPiprazole [Aripiprazole 5mg 5 mg PO HS 02/12/19 02/12/19 History Tablet] Furosemide [Furosemide 40MG tAB] 40 mg PO DIRECTED 02/12/19 02/12/19 History Montelukast Sodium [Montelukast 10 mg PO HS 02/12/19 02/12/19 History 10mg Tab] buPROPion HCl [Bupropion Xl] 150 mg PO DAILY 30 Days #30 02/13/19 Rx tab.er.24h Prescriptions/Medication Reconciliation: Continued omeprazole 40 mg capsule,delayed release 40 mg PO DAILY #90 cap metoprolol tartrate 25 mg tablet 25 mg PO DAILY #90 tab losartan 25 mg tablet 25 mg PO DAILY #90 tab atorvastatin 80 mg tablet 80 mg PO HS #90 tab aspirin 81 mg tablet,delayed release 81 mg PO DAILY #90 tab ropinirole 0.25 mg tablet 0.25 mg PO QHS #90 tab gabapentin 600 mg tablet 600 mg PO TID #90 tab Albuterol Sulfate [Albuterol HFA Inhaler] 1 - 2 puffs INHALATION Q4HP PRN PRN Reason: Shortness Of Breath Or Wheezing Ondansetron [Zofran 4mg ODT] 4 mg PO TIDP PRN #10 tab.rapdis PRN Reason: Nausea And Vomiting Fluticasone/Umeclidin/Vilanter [Trelegy Ellipta 100-62.5-25] 1 puff PO DAILY ARIPiprazole [Aripiprazole 5mg Tablet] 5 mg PO HS Ipratropium/Albuterol Sulfate [Duoneb 3mL neb] 3 ml IH Q2HP PRN ampul.neb PRN Reason: SOA Trazodone HCl 100 mg PO HS Verapamil HCl [Verapamil Sr] 120 mg PO DAILY Montelukast Sodium [Montelukast 10mg Tab] 10 mg PO HS Furosemide [Furosemide 40MG tAB] 40 mg PO DIRECTED Changed buPROPion HCl [Bupropion Xl] 150 mg PO DAILY 30 Days #30 tab.er.24h
== END 2019-02-13 12:55 | disposition home or self-care (01) ==
LOC: ER 15:27 → 2ND 15:27
PROVIDERS: ADMIT Emergency Medicine; ATTEND Emergency Medicine
CPT/HCPCS: 36415; 71020; 71046; 74176; 80053; 81001; 82150; 83605; 83690; 85025; 85651; 87040; 87086; 94640; 94761; 96365; 99283; G0378

== ENCOUNTER → 2019-02-26 19:14 | Outpatient (CLI) | payer MEDICARE, MEDICAID, SELFPAY ==
[2019-02-26 19:25] LABS: Adenovirus F 40/41, stool Not Detected (NotDetected); Astrovirus Not Detected (NotDetected); Campylobacter Not Detected (NotDetected); Clostridium Difficile A/B, PCR Not Detected (NotDetected); Cryptosporidium Not Detected (NotDetected); Cyclospora Cayetanesis Not Detected (NotDetected); Entamoeba histolytica Not Detected (NotDetected); Enteroaggregative E coli Not Detected (NotDetected); Enteropathogenic E coli Not Detected (NotDetected); Enterotoxigenic E coli Not Detected (NotDetected); Giardia lamblia Not Detected (NotDetected); Norovirus Not Detected (NotDetected); Plesimonas Shigalloides, PCR Not Detected (NotDetected); Rotavirus A Not Detected (NotDetected); Salmonella, PCR Not Detected (NotDetected); Sapovirus Not Detected (NotDetected); Shiga-like toxin E coli Not Detected (NotDetected); Shigella Enterovasive E coli Not Detected (NotDetected); Vibrio Cholerae Not Detected (NotDetected); Vibrio, PCR Not Detected (NotDetected); Yersinia Entercolitica, PCR Not Detected (NotDetected)
== END ==
PROVIDERS: PCP Emergency Medicine; Visit Provider Emergency Medicine
DX: Z09 Encounter for follow-up examination after completed treatment for conditions other than malignant neoplasm (principal); R19.7 Diarrhea, unspecified; F32.9 Major depressive disorder, single episode, unspecified
CPT/HCPCS: 87506

== ENCOUNTER → 2019-03-07 09:59 | Outpatient (CLI) | payer MEDICARE, MEDICAID, SELFPAY ==
[2019-03-07 10:37] LABS: Basophils # 0.1 K/mm3 (0-0.2); Basophils % 0.7 % (0.1-2.0); Eosinophils # 0.2 K/mm3 (0.0-0.4); Eosinophils % 2.4 % (0.1-12.0); Hematocrit 45.7 % (37.0-47.0); Hemoglobin 14.6 g/dL (12.2-16.2); Lymphocytes % 22.6 % (10-50); Mean Corpuscular Hemoglobin 28.6 pg (27.0-31.2); Mean Corpuscular Volume 89.4 fl (81-99); Mean Platelet Volume 8.9 fl (7.4-10.4); Monocytes # 0.7 K/mm3 (0.1-1.0); Monocytes % 7.2 % (1.7-9.3); Neutrophils % 67.1 % (37.0-80.0); Platelet Count 215 K/mm3 (142-424); Red Blood Count 5.11 M/mm3 (4.20-5.40); Red Cell Distribution Width 14.3 % (11.5-17.5); White Blood Count 8.9 K/mm3 (4.8-10.8)
[2019-03-07 10:57] LABS: Alanine Aminotransferase 80 U/L (12-78); Albumin Level 3.6 gm/dL (3.4-5.0); Albumin/Globulin Ratio 1.4 (1.1-1.8); Alkaline Phosphatase 126 U/L (46-116); Anion Gap 10.3 mEq/L (5-15); Aspartate Amino Transferase 39 U/L (15-37); Bilirubin,Total 0.6 mg/dL (0.2-1.0); Blood Urea Nitrogen 13 mg/dL (7-18); Calcium 9.2 mg/dL (8.5-10.1); Carbon Dioxide 31 mmol/L (21.0-32.0); Chloride 106 mmol/L (98-107); Creatinine,Serum 1.57 mg/dL (0.55-1.02); Estimated Glomerular Filt Rate 33 ml/min (>60); GFR (African American) 40 ML/MIN (>60); Globulin 2.5 gm/dl (1.3-3.2); Glucose 112 mg/dL (74-106); Potassium 3.3 mmoL/L (3.5-5.1); Sodium 144 mmol/L (136-145); Total Protein,Serum 6.1 gm/dL (6.4-8.2)
== END ==
PROVIDERS: Visit Provider Nurse Practitioner Psychiatric/Mental Health
DX: Z00.00 Encounter for general adult medical examination without abnormal findings (principal); R91.8 Other nonspecific abnormal finding of lung field
CPT/HCPCS: 36415; 80053; 85025

== ENCOUNTER → 2019-03-11 13:08 | Outpatient (CLI) | payer MEDICARE, MEDICAID, SELFPAY ==
--- NOTE | 2019-03-11 13:10 | CA_ITS ---
APPROVED REPORT EXAM: Comprehensive 2D, Doppler, and color-flow Echocardiogram Deboner: Mahi Poon RT(R) Ht: 5 ft 9 in Wt: 203lbs BSA: 2.08 BP: 117/89 mmHg Indications: COPD, Dyspnea, Hyperlipidemia, Hypertension, Smoker, Pacemaker Left Ventricle Left atrium is mildly enlarged, the ventricle is normal size, there is mild concentric left ventricular hypertrophy, visually estimated ejection fraction 55% with no regional wall motion normality. Grade 1 diastolic dysfunction seen without tissue Doppler evidence of raise left atrial pressure. Right Ventricle Right atrium and right ventricular normal size and contractility. Aortic Valve Aortic valve is minimally thickened and calcified, there is no aortic stenosis aortic insufficiency. Mitral Valve Mitral valve is grossly normal, there is mild mitral regurgitation. Tricuspid Valve Tricuspid valve is grossly normal, there is mild tricuspid regurgitation, tricuspid regurgitation jet velocity is inadequate for calculation of the right ventricular systolic pressure. Pulmonic Valve Pulmonic valve is poorly visualized. Great Vessels Aortic root is normal size. Pericardium No significant pericardial effusion noted 2D Dimensions LVOT 2.10 cm (M/F) 1.5-2.5 M-Mode Dimensions LA Diam 3.50 cm (1.9-4.0) LVDd 4.60 cm (3.5-5.7) Ao Diam 3.00 cm (2.0-3.7) LVDs 3.20 cm (3.5-5.7) AV Cusp 2.20 cm (1.5-2.6) IVSd 0.90 cm (0.6-1.1) PWd 0.90 cm (0.6-1.1) EF (Teich) 57.90% FS 30.40% EDV (Teich) 97.30 mL ESV (Teich) 41.00 mL LV Diastology E/A Ratio 0.70 MED E' 8.58 (< 7 cm/sec) E'/MED E' Ratio 6.80 (>14) LAT E' 8.29 (<10 cm/sec) E/LAT E' Ratio 7.10 (>14) Mitral Valve MV E Max Wil. 58.70 (40-130 cm/s) MV A Velocity 85.90 (40-130 cm/s) E/A Ratio 0.70 Conclusion 1. Mildly enlarged left atrium, normal left ventricular size, mild concentric left ventricular hypertrophy, visually estimated ejection fraction 55% with no regional wall motion abnormality, grade 1 diastolic dysfunction seen without tissue Doppler evidence of raise left atrial pressure. 2. Mild mitral and tricuspid regurgitation 3. No significant pericardial effusion noted. Electronically signed by : Adam Montes, 03/14/2019 13:59:16
== END ==
PROVIDERS: PCP Nurse Practitioner Family; Visit Provider Nurse Practitioner Family
DX: I51.89 Other ill-defined heart diseases (principal); R06.02 Shortness of breath
CPT/HCPCS: 93306

== ENCOUNTER 2019-04-22 12:09 | Observation (INO) ==
--- NOTE | 2019-04-22 13:54 | Emergency Department Note ---
ED Disposition Clinical Impression: Syncope and collapse Disposition: Admitted as Observation Condition on Discharge: Good Referrals: Ilir Jeffers MD [Primary Care Provider] - - Critical Care Critical Care Time: No Attestation: On 04/22/19, the high probability of a clinically significant, sudden or life threatening deterioration of the following system(s) required my full and direct attention, intervention and personal management. The time I documented below is in addition to time spent performing reported procedures but includes the following listed in this critical care notation. Medical Decision Making - Anibal Inquiry Pt receiving controlled substance: No Vital Signs: 04/22/19 12:32 04/22/19 14:09 04/22/19 14:30 Temperature 98.9 F Temperature Source Oral Pulse Rate [Orthostatic Standing Right] Pulse Rate [Right Radial] 76 71 76 Respiratory Rate 16 18 18 Blood Pressure [Orthostatic Standing Right Arm] Blood Pressure [Right Arm] 130/77 133/72 130/77 Blood Pressure Mean [Right Arm] 94 92 94 Blood Pressure Source [Right Arm] Automatic Cuff Manual Cuff/ Palpation Automatic Cuff Blood Pressure Position [Right Arm] Sitting Supine Supine 02 Sat by Pulse Oximetry 96 96 96 Oxygen Delivery Method Room Air Room Air Room Air 04/22/19 14:47 Temperature Temperature Source Pulse Rate [Orthostatic Standing Right] 79 Pulse Rate [Right Radial] Respiratory Rate Blood Pressure [Orthostatic Standing Right Arm] 113/73 Blood Pressure [Right Arm] Blood Pressure Mean [Right Arm] Blood Pressure Source [Right Arm] Blood Pressure Position [Right Arm] 02 Sat by Pulse Oximetry Oxygen Delivery Method - Lab Data Lab Results 04/22/19 13:53: WBC 10.6, RBC 5.02, Hgb 14.4, Hct 45.8, MCV 91.1, MCH 28.7, MCHC 31.5 L, RDW 14.1, Plt Count 201, MPV 9.3, Neut % (Auto) 78.1, Lymph % (Auto) 16.3, [place] % (Auto) 4.3, Eos % (Auto) 0.9, Baso % (Auto) 0.5, Neut # (Auto) 8.3 H, Lymph # (Auto) 1.7, [place] # (Auto) 0.5, Eos # (Auto) 0.1, Baso # (Auto) 0.1 04/22/19 13:53: Troponin I < 0.02 04/22/19 13:53: Sodium 146 H, Potassium 3.3 L, Chloride 103, Carbon Dioxide 28, Anion Gap 18.3 H, BUN 16, Creatinine 1.19 H, Estimated Creat Clear 62, Estimated GFR 46 L, Est GFR ( Amer) 55 L, Glucose 108 H, Calcium 9.4, Total Bilirubin 1.0, AST 41 H, ALT 60, Alkaline Phosphatase 136 H, Total Protein 6.9, Albumin 3.8, Globulin 3.1, Albumin/Globulin Ratio 1.2 Result diagrams: 04/22/19 13:53 04/22/19 13:53 - Radiology Data #1 Image(s): Hip, Knee Image Reviewed: Yes I reviewed the patient's radiology image, Yes I have reviewed radiologist's interpretation Preliminary Findings: Normal/NAD - CT Data CT Scan: Head, Other (facial) Time Received: 14:[address] Reviewed: Yes: I have viewed the radiologist's interpretation Preliminary Findings: Normal/NAD - ECG Data Tracing #1 EKG interpreted by Missael Ramirez MD: Rhythm: sinus Rate: 70 [place]: normal Ectopy: none Conduction: normal ST Segment Changes: none T Wave Changes: Nonspecific Q Waves: none No evidence of acute ischemia or injury Baseline artifact present, but I consider the EKG adequate for accurate interpretation. - Physician Consults Physician Consulted: Zeyad Time: 15:06 Reason -: Pt condition Comment/Response: Admit observation for syncope, monitoring manager, serial troponins. Medical Decision Narrative: Recent cardiac cath: ANGIOGRAPHIC RESULTS: 1. The left main artery normal 2. The left anterior descending artery is normal 3. The circumflex artery dominant normal 4. The right coronary artery codominant normal 5. The HOANG ventriculogram reveals normal 65% 6. The left ventricular end-diastolic pressure 20 mmH IMPRESSION: 1. Normal coronary arteries 2. Normal ejection fraction 3. Mildly elevated LVEDP PLAN: 1. Medical management 2. Treatment of underlying diastolic dysfunction Dictated By: Harsh Bonner MD Signed By: <Electronically signed by Harsh Bonner MD in OV> 01/07/19 1240 General Adult HPI - General Chief complaint: Fall Stated complaint: AO 04/22/19 RIGHT KNEE PAIN 1100 Time Seen by Provider: 04/22/19 13:40 Mode of Arrival: Wheelchair Limitations: No Limitations Description of Symptoms (Recalled from ER Triage Doc. by RN): PT STATES THAT SHE FELL TODAY AT APPROX 1100. PT NOW C/O RT KNEE AND HIP PAIN. PT STATES THAT SHE HAS BEEN EXPERIENCING PROGRESSIVE DIZZINESS THAT HAS BEEN CAUSING HER TO FALL. PT ADVISES THIS IS THE 2ND TIME SHE HAS FALLEN THIS WEEK. PT DENIES HITTING HER HEAD DURING THE FALL TODAY. - History of Present Illness HPI narrative: States that she is having "blackout spells". Says that she had one this morning causing her to fall and strike her right cheek. She says she "kind of passed out". Also injured her right hip and knee. She has a mild headache. No vomi ting. No numbness or weakness of the extremities. No chest pain or shortness of breath. Says that she called her PCP and they told her to come to the emergency room. She was also seen by me in this emergency department on 04/18/2019 for a syncopal episode. - Related Data Home Medications Medication Instructions Recorded Confirmed Albuterol Sulfate [Albuterol HFA 1 - 2 puffs INHALATION Q4HP PRN 04/28/18 04/08/19 Inhaler] Fluticasone/Umeclidin/Vilanter 1 puff PO DAILY 02/11/19 04/08/19 [Trelegy Ellipta 100-62.5-25] Furosemide [Furosemide 40MG tAB] 40 mg PO DIRECTED 02/12/19 04/08/19 buPROPion HCl [Wellbutrin Xl] 300 mg PO DAILY 03/08/19 04/08/19 Previous Rx's Medication Instructions Recorded Ipratropium/Albuterol Sulfate 3 ml IH Q2HP PRN ampul.neb 08/06/18 [Duoneb 3mL neb] omeprazole 40 mg capsule,delayed 40 mg PO DAILY #90 cap 11/27/18 release Ondansetron [Zofran 4mg ODT] 4 mg PO TIDP PRN #10 tab.rapdis 02/09/19 trazodone 100 mg tablet 100 mg PO HS #30 tab 03/07/19 Esomeprazole Magnesium [Nexium 20 mg PO DAILY 30 Days #38 03/08/19 24Hr] tablet. Ondansetron HCl [Zofran 8mg Tab] 8 mg PO TID 4 Days #12 tab 03/08/19 montelukast 10 mg tablet 10 mg PO HS #90 tab 03/13/19 Magnesium Oxide [Magox 400] 400 mg PO DAILY #7 tab 03/28/19 Potassium Chloride 20 meq PO DAILY #7 tablet.er 03/28/19 gabapentin 600 mg tablet 600 mg PO TID #90 tab 04/08/19 ropinirole 0.25 mg tablet 0.25 mg PO QHS #90 tab 04/08/19 aripiprazole 10 mg tablet 10 mg PO QHS #30 tab 04/14/19 aspirin 81 mg tablet,delayed See Rx Instructions .ROUTE 04/14/19 release .COMPLEX #90 each atorvastatin 80 mg tablet 80 mg PO HS #90 tab 04/14/19 losartan 25 mg tablet 25 mg PO DAILY #90 tab 04/14/19 metoprolol tartrate 25 mg tablet 25 mg PO DAILY #90 tab 04/14/19 Allergies Allergy/AdvReac Type Severity Reaction Status Date / Time verapamil Allergy Severe Rash Verified 04/08/19 16:05 Penicillins [PENICILLINS] Allergy Unknown I-RASH Verified 04/08/19 16:05 Sulfa (Sulfonamide Allergy Unknown NA-NAUSEA/V Verified 04/08/19 16:05 Antibiotics) OMITING [SULFA (SULFONAMIDE ANTIBIOTICS)] [facility] History - Hepatitis A Screen Drug use history?: No High risk sexual behaviors?: No History of sexually transmitted infection?: No Currently employed?: No Childcare worker?: No Do you have indoor plumbing?: Yes Do you have electricity?: Yes Attestation statement:: This patient has been screened for Hepatitis A risk factors. I have reviewed the patient's past medical history: Yes Medical History: Reports:: Anxiety, Atherosclerotic Heart Disease, Congestive Heart Failure, Chronic Obstructive Pulmonary Disease (COPD), Congenital Heart Disease, Coronary Artery Disease, Gastroesophageal Reflux Disease(GERD), Hyperlipidemia, Hypertension, Internal Pacemaker, Lung Disease (o2 at night/COPD), Renal Disease Denies:: Cancer, Diabetes Mellitus Type 1, Diabetes Mellitus Type 2, MRSA, Seizures Other Medical History: Reports: Arthritis, Cataracts, Thyroid Disease Laterality Cases: Right: Arthroscopy Knee Other Surgeries: Yes: No Previous Surgery, Cardiac Catheterization, Cardiac Surgery, Cholecystectomy, Colonoscopy, EGD, Hysterectomy-Total, Pacemaker, Thyroidectomy, Other (wrist surgery) Amputation: No Fractures: No Comment: Knee surgery, wrist surgery - Social History Smoking Status: Current every day smoker Tobacco Type: cigarettes # Packs/Day (cigarettes): 1 #Yrs smoked (if former smoker): 30 Alcohol Intake: never Alcohol Intake Frequency:: other Substance Use Type: denies use Occupational Status: disabled Housing: apartment Household Members: none - Psychiatric History Pschychiatric History:: Reports:: Anxiety Family Hx:: Hypertension ROS Obtained: Yes All systems reviewed & no additional complaints - Constitutional Constitutional: Denies fever(s) - Eyes Eyes: Denies change in vision - Cardiovascular Cardiovascular: Denies chest pain - Respiratory Respiratory: No dyspnea - Gastrointestinal Gastrointestingal: Denies: abdominal pain, vomiting - Musculoskeletal Musculoskeletal: Reports as per HPI, Denies neck pain - Neurologic Neurologic: Denies focal weakness, Reports headache(s), Denies numbness Physical Exam - General General appearance: alert, in no apparent distress - Head Head exam: atraumatic, normocephalic - Eye Eye exam: Present: normal appearance, PERRL, EOMI - ENT ENT exam: Present: mucous membranes moist - Neck Neck exam: Present: normal inspection, full ROM, trachea midline. Absent: t enderness - Chest Chest inspection: Present: normal inspection, symmetric chest wall rise - Respiratory Respiratory exam: Present: normal lung sounds bilaterally. Absent: respiratory distress - Cardiovascular Cardiovascular exam: Present: regular rate, normal rhythm, normal heart sounds - Abdominal Exam Abdominal exam: Present: soft, normal bowel sounds. Absent: distention, tenderness, guarding - Extremities Exam Extremities exam: Present: tenderness (right hip and knee. FROM, NVI.) - Neurological Exam Neurological exam: Present: alert, oriented X3, CN II-XII intact. Absent: motor sensory deficit - Psychiatric Psychiatric exam: Present: flat affect - Skin Skin exam: Present: warm, dry
[2019-04-22 14:08] LABS: Basophils # 0.1 K/mm3 (0-0.2); Basophils % 0.5 % (0.1-2.0); Eosinophils # 0.1 K/mm3 (0.0-0.4); Eosinophils % 0.9 % (0.1-12.0); Hematocrit 45.8 % (37.0-47.0); Hemoglobin 14.4 g/dL (12.2-16.2); Lymphocytes # 1.7 K/mm3 (0.7-4.5); Lymphocytes % 16.3 % (10-50); Mean Corpuscular HGB Conc 31.5 g/dL (31.8-35.4); Mean Corpuscular Volume 91.1 fl (81-99); Mean Platelet Volume 9.3 fl (7.4-10.4); Monocytes # 0.5 K/mm3 (0.1-1.0); Monocytes % 4.3 % (1.7-9.3); Neutrophils # 8.3 K/mm3 (1.8-7.8); Neutrophils % 78.1 % (37.0-80.0); Platelet Count 201 K/mm3 (142-424); Red Blood Count 5.02 M/mm3 (4.20-5.40); Red Cell Distribution Width 14.1 % (11.5-17.5); White Blood Count 10.6 K/mm3 (4.8-10.8)
[2019-04-22 14:18] LABS: Albumin Level 3.8 gm/dL (3.4-5.0); Albumin/Globulin Ratio 1.2 (1.1-1.8); Anion Gap 18.3 mEq/L (5-15); Calcium 9.4 mg/dL (8.5-10.1); Globulin 3.1 gm/dl (1.3-3.2); Total Protein,Serum 6.9 gm/dL (6.4-8.2)
--- NOTE | 2019-04-22 15:26 | Pharmacy Consult Notes ---
[facility] Pharmacy VTE Monitoring - Patient Demographics Admission date: 04/22/19 Report Date: 04/22/19 Time: 15:26 Allergies/Adverse Reactions: Patient Allergies verapamil Allergy (Severe, Verified 04/08/19 16:05) Rash Penicillins [PENICILLINS] Allergy (Unknown, Verified 04/08/19 16:05) I-RASH Sulfa (Sulfonamide Antibiotics) [SULFA (SULFONAMIDE ANTIBIOTICS)] Allergy (Unknown, Verified 04/08/19 16:05) NA-NAUSEA/VOMITING Height: 1.75 m Weight: 83.007 kg Patient Problems: Current Active Problems Syncope and collapse (Acute) - VTE Risk Labs: VTE Related Lab Results Hgb 14.4 g/dL (12.2-16.2) 04/22/19 13:53 Hct 45.8 % (37.0-47.0) 04/22/19 13:53 Plt Count 201 K/mm3 (142-424) 04/22/19 13:53 BUN 16 mg/dL (7-18) 04/22/19 13:53 Creatinine 1.19 mg/dL (0.55-1.02) H 04/22/19 13:53 Estimated Creat Clear 62 mL/min (50-200) 04/22/19 13:53 Clinical Trial Participant: No - Prophylaxis VTE Prophylaxis Ordered?: Yes Types of VTE Prophylaxis: TEDS Knee High
--- NOTE | 2019-04-22 20:25 | History & Physical Report ---
*Admission Date: 04/22/19 *Chief complaint: syncope *History of present illness: this wf with episode of syncope and presented to the ed -T STATES THAT SHE FELL TODAY AT APPROX 1100. PT NOW C/O RT KNEE AND HIP PAIN. PT STATES THAT SHE HAS BEEN EXPERIENCING PROGRESSIVE DIZZINESS THAT HAS BEEN CAUSING HER TO FALL. PT ADVISES THIS IS THE 2ND TIME SHE HAS FALLEN THIS WEEK. PT DENIES HITTING HER HEAD DURING THE FALL TOD States that she is having "blackout spells". Says that she had one this morning causing her to fall and strike her right cheek. She says she "kind of passed out". Also injured her right hip and knee. She has a mild headache. No vomiting. No numbness or weakness of the extremities. No chest pain or shortness of breath. Says that she called her PCP and they told her to come to the emergency room. She was also seen by me in this emergency department on 04/18/2019 for a syncopal episode. [facility] History I have reviewed the patient's past medical history: Yes Medical History: Reports:: Anxiety, Atherosclerotic Heart Disease, Congestive Heart Failure, Chronic Obstructive Pulmonary Disease (COPD), Congenital Heart Disease, Coronary Artery Disease, Gastroesophageal Reflux Disease(GERD), Hyperlipidemia, Hypertension, Internal Pacemaker, Lung Disease (o2 at night/COPD), Renal Disease Denies:: Cancer, Diabetes Mellitus Type 1, Diabetes Mellitus Type 2, MRSA, Seizures *Have you ever received a pneumonia vaccine?: No *Have you received a flu vaccine this season?: No Other Medical History: Reports: Arthritis, Cataracts, Thyroid Disease Laterality Cases: Right: Arthroscopy Knee, Bilateral: Cataract, Tonsillectomy Other Surgeries: Yes: No Previous Surgery, Cardiac Catheterization, Cardiac S urgery, Cholecystectomy, Colonoscopy, EGD, Hysterectomy-Total, Pacemaker, Thyroidectomy, Other (wrist surgery) Amputation: No Fractures: No - *Social History Educational Level: Completed Grade School Smoking Status: Current every day smoker Tobacco Type: cigarettes # Packs/Day (cigarettes): 1 #Yrs smoked (if former smoker): 30 Alcohol Intake: former Alcohol Intake Frequency:: other Substance Use Type: denies use *Occupational Status:: disabled Housing: apartment Household Members: none *Travel in the last 8 weeks: None - Psychiatric History Pschychiatric History:: Reports:: Anxiety Family Hx:: Asthma, Cancer, Coronary Artery Disease, Diabetes, Heart Attack, Hyperlipidemia, Hypertension, Tuberculosis, Mental illness Review of Systems - Review of Systems Review of systems:: pertinent systems reviewed and negative unless documented below - Constitutional Denies fever(s) - Eyes Denies change in vision - ENT Denies sore throat - *Cardiovascular Denies chest pain at rest - *Respiratory Denies cough - *Gastrointestinal Denies abdominal pain - *Genitourinary Denies blood in urine - *Musculoskeletal Denies joint pain - Integumentary/Breasts Denies rash - *Neurologic Reports headache(s), Denies localized weakness, Denies numbness - Psychiatric Reports anxiety Meds Home Medications Medication Instructions Recorded Confirmed Type Albuterol Sulfate [Albuterol HFA 1 - 2 puffs INHALATION Q4HP PRN 04/28/18 04/22/19 History Inhaler] omeprazole 40 mg capsule,delayed 40 mg PO DAILY #90 cap 11/27/18 04/22/19 Rx release Furosemide [Furosemide 40MG tAB] 40 mg PO NEEDED PRN 02/12/19 04/22/19 History trazodone 100 mg tablet 100 mg PO HS #30 tab 03/07/19 04/22/19 Rx buPROPion HCl [Wellbutrin Xl] 300 mg PO DAILY 03/08/19 04/22/19 History montelukast 10 mg tablet 10 mg PO HS #90 tab 03/13/19 04/22/19 Rx gabapentin 600 mg tablet 600 mg PO TID #90 tab 04/08/19 04/22/19 Rx ropinirole 0.25 mg tablet 0.25 mg PO QHS #90 tab 04/08/19 04/22/19 Rx aripiprazole 10 mg tablet 10 mg PO QHS #30 tab 04/14/19 04/22/19 Rx atorvastatin 80 mg tablet 80 mg PO HS #90 tab 04/14/19 04/22/19 Rx losartan 25 mg tablet 25 mg PO DAILY #90 tab 04/14/19 04/22/19 Rx metoprolol tartrate 25 mg tablet 25 mg PO DAILY #90 tab 04/14/19 04/22/19 Rx Aspirin [Aspir 81] 81 mg PO DAILY 04/22/19 04/22/19 History Fluticasone/Umeclidin/Vilanter 1 puff INHALATION DAILYP PRN 04/22/19 04/22/19 History [Trelegy Ellipta 100-62.5-25] Ipratropium/Albuterol Sulfate 3 ml IH BID 04/22/19 04/22/19 History [Duoneb 3mL neb] Potassium Chloride 20 meq PO DAILY 04/22/19 04/22/19 History Allergies Allergy/AdvReac Type Severity Reaction Status Date / Time verapamil Allergy Severe Rash Verified 04/22/19 16:23 Penicillins [PENICILLINS] Allergy Unknown I-RASH Verified 04/22/19 16:23 Sulfa (Sulfonamide Allergy Unknown NA-NAUSEA/V Verified 04/22/19 16:23 Antibiotics) OMITING [SULFA (SULFONAMIDE ANTIBIOTICS)] Exam Vital signs and Labs for Last 24 Hours: Temp Pulse Resp BP Pulse Ox 97.9 F 70 20 123/77 97 04/22/19 19:56 04/22/19 19:56 04/22/19 19:56 04/22/19 19:56 04/22/19 19:56 Laboratory Results - last 24 hr 04/22/19 13:53: WBC 10.6, RBC 5.02, Hgb 14.4, Hct 45.8, MCV 91.1, MCH 28.7, MCHC 31.5 L, RDW 14.1, Plt Count 201, MPV 9.3, Neut % (Auto) 78.1, Lymph % (Auto) 16.3, [place] % (Auto) 4.3, Eos % (Auto) 0.9, Baso % (Auto) 0.5, Neut # (Auto) 8.3 H, Lymph # (Auto) 1.7, [place] # (Auto) 0.5, Eos # (Auto) 0.1, Baso # (Auto) 0.1 04/22/19 13:53: Troponin I < 0.02 04/22/19 13:53: Sodium 146 H, Potassium 3.3 L, Chloride 103, Carbon Dioxide 28, Anion Gap 18.3 H, BUN 16, Creatinine 1.19 H, Estimated Creat Clear 62, Estimated GFR 46 L, Est GFR ( Amer) 55 L, Glucose 108 H, Calcium 9.4, Total Bilirubin 1.0, AST 41 H, ALT 60, Alkaline Phosphatase 136 H, Total Protein 6.9, Albumin 3.8, Globulin 3.1, Albumin/Globulin Ratio 1.2 04/22/19 18:07: Troponin I < 0.02 I & O for Last 24 hours: Intake & Output 04/20/19 04/21/19 04/22/19 04/23/19 11:59 11:59 11:59 11:59 Intake Total 355 / 355 Balance 355 / 355 Weight 192 lb 14.4 oz - Constitutional no acute distress - *Routine HEENT Exam Head: Present: normocephalic Eye: Present: EOMI, PERRL. Absent: nystagmus ENT: Present: mucous membranes dry - *Routine Neck Exam Absent: JVD - *Routine Respiratory Exam Present: wheezes - *Routine Cardiovascular Exam Present: RRR, murmur, S4 - *Routine Abdominal Exam Present: soft - *Routine Extremities Exam Absent: calf tenderness - *Routine Skin Exam Present: intact - *Routine Neurological Exam Present: alert, oriented X3, CN II-XII intact - Routine Psychiatric Exam Present: normal affect Assessment and Plan (1) Syncope and collapse Current visit: Yes Status: Acute Category: Medical Code(s): R55 - Syncope and collapse
--- NOTE | 2019-04-23 09:21 | Consult Report ---
History of Present Illness Consult date: 04/23/19 Requesting physician: Ilir Jeffers Chief complaint: Syncope Additional Medical History:: 1. Tobacco use 2. Hypertension A. Echo, 02/2019, 1. Mildly enlarged left atrium, normal left ventricular size, mild concentric left ventricular hypertrophy, visually estimated ejection fraction 55% with no regional wall motion abnormality, grade 1 diastolic dysfunction seen without tissue Doppler evidence of raise left atrial pressure. 2. Mild mitral and tricuspid regurgitation 3. No significant pericardial effusion noted. 3. Normal coronary arteries by cardiac cath with LVEDP of 20 mm Hg, 12/2018 4. History of pacemaker insertion for sick sinus syndrome, 2013 A. Ventricular noise noted on multiple interrogations but both leads functioning appropriately 5. History of GERD 6. History of anxiety 7. History of diastolic CHF History of present illness: 63-year-old white female admitted through the ER yesterday for recurrent episodes of passing out. Patient relates an episode last week while at [facility] in the checkout line when she felt dizzy and had to sit down which did help prevent passing out. Yesterday evening, at her home, while walking in the house, she turned to change direction and suddenly felt lightheaded and dizzy with subsequent passing out. She did fall on the floor but denies hitting her head. She did not lose control of her bowels or bladder. She feels like she was only out for a few seconds and then was able to contact a family member to come get her for transportation to the hospital. CT of the head and face were unremarkable. X-rays of the hip and knee were negative for fractures. Troponins were normal overnight. Telemetry shows no significant arrhythmias. Interrogation of her pacemaker this a.m. shows no evidence of arrhythmias surrounding the time of her symptoms. Cardiac cath earlier this year showed normal coronary arteries and normal left ventricular ejection fraction. Cardiology consulted for evaluation. [facility] History Medical History: Reports:: Anxiety, Atherosclerotic Heart Disease, Congestive Heart Failure, Chronic Obstructive Pulmonary Disease (COPD), Congenital Heart Disease, Coronary Artery Disease, Gastroesophageal Reflux Disease(GERD), Hyperlipidemia, Hypertension, Internal Pacemaker, Lung Disease (o2 at night/COPD), Renal Disease Denies:: Cancer, Diabetes Mellitus Type 1, Diabetes Mellitus Type 2, MRSA, Seizures *Have you ever received a pneumonia vaccine?: No *Have you received a flu vaccine this season?: No Other Medical History: Reports: Arthritis, Cataracts, Thyroid Disease Laterality Cases: Right: Arthroscopy Knee, Bilateral: Cataract, Tonsillectomy Other Surgeries: Yes: No Previous Surgery, Cardiac Catheterization, Cardiac Surgery, Cholecystectomy, Colonoscopy, EGD, Hysterectomy-Total, Pacemaker, Thyroidectomy, Other (wrist surgery) Amputation: No Fractures: No - *Social History Educational Level: Completed Grade School Smoking Status: Current every day smoker Tobacco Type: cigarettes # Packs/Day (cigarettes): 1 #Yrs smoked (if former smoker): 30 Alcohol Intake: former Alcohol Intake Frequency:: other Substance Use Type: denies use *Occupational Status:: disabled Housing: apartment Household Members: none *Travel in the last 8 weeks: None - Psychiatric History Pschychiatric History:: Reports:: Anxiety Family Hx:: Asthma, Cancer, Coronary Artery Disease, Diabetes, Heart Attack, Hyperlipidemia, Hypertension, Tuberculosis, Mental illness Meds Home Medications Medication Instructions Recorded Confirmed Type Albuterol Sulfate [Albuterol HFA 1 - 2 puffs INHALATION Q4HP PRN 04/28/18 04/22/19 History Inhaler] omeprazole 40 mg capsule,delayed 40 mg PO DAILY #90 cap 11/27/18 04/22/19 Rx release trazodone 100 mg tablet 100 mg PO HS #30 tab 03/07/19 04/22/19 Rx buPROPion HCl [Wellbutrin Xl] 300 mg PO DAILY 03/08/19 04/22/19 History montelukast 10 mg tablet 10 mg PO HS #90 tab 03/13/19 04/22/19 Rx gabapentin 600 mg tablet 600 mg PO TID #90 tab 04/08/19 04/22/19 Rx ropinirole 0.25 mg tablet 0.25 mg PO QHS #90 tab 04/08/19 04/22/19 Rx aripiprazole 10 mg tablet 10 mg PO QHS #30 tab 04/14/19 04/22/19 Rx atorvastatin 80 mg tablet 80 mg PO HS #90 tab 04/14/19 04/22/19 Rx losartan 25 mg tablet 25 mg PO DAILY #90 tab 04/14/19 04/22/19 Rx metoprolol tartrate 25 mg tablet 25 mg PO DAILY #90 tab 04/14/19 04/22/19 Rx Aspirin [Aspir 81] 81 mg PO DAILY 04/22/19 04/22/19 History Fluticasone/Umeclidin/Vilanter 1 puff INHALATION DAILYP PRN 04/22/19 04/22/19 History [Trelegy Ellipta 100-62.5-25] Ipratropium/Albuterol Sulfate 3 ml IH BID 04/22/19 04/22/19 History [Duoneb 3mL neb] Potassium Chloride 20 meq PO DAILY 04/22/19 04/22/19 History furosemide 40 mg tablet See Rx Instructions .ROUTE 04/23/19 Rx .COMPLEX #72 tablet Allergies Allergy/AdvReac Type Severity Reaction Status Date / Time verapamil Allergy Severe Rash Verified 04/22/19 16:23 Penicillins [PENICILLINS] Allergy Unknown I-RASH Verified 04/22/19 16:23 Sulfa (Sulfonamide Allergy Unknown NA-NAUSEA/V Verified 04/22/19 16:23 Antibiotics) OMITING [SULFA (SULFONAMIDE ANTIBIOTICS)] Review of Systems - Constitutional Denies chills, Denies fever(s) - *Cardiovascular Reports shortness of breath with activity, Reports fainting, Denies chest pain - *Respiratory Reports cough, Reports shortness of breath - *Gastrointestinal Denies abdominal pain, Denies nausea, Denies vomiting - *Genitourinary Denies blood in urine - *Musculoskeletal Denies joint pain, Denies back pain - *Neurologic Reports headache(s), Denies localized weakness, Denies numbness Exam Vital signs and Labs for Last 24 Hours: Temp Pulse Resp BP Pulse Ox 98.6 F 78 17 137/71 95 04/23/19 08:00 04/23/19 08:00 04/23/19 08:00 04/23/19 08:00 04/23/19 08:00 Laboratory Results - last 24 hr 04/22/19 13:53: WBC 10.6, RBC 5.02, Hgb 14.4, Hct 45.8, MCV 91.1, MCH 28.7, MCHC 31.5 L, RDW 14.1, Plt Count 201, MPV 9.3, Neut % (Auto) 78.1, Lymph % (Auto) 16.3, [place] % (Auto) 4.3, Eos % (Auto) 0.9, Baso % (Auto) 0.5, Neut # (Auto) 8.3 H, Lymph # (Auto) 1.7, [place] # (Auto) 0.5, Eos # (Auto) 0.1, Baso # (Auto) 0.1 04/22/19 13:53: Troponin I < 0.02 04/22/19 13:53: Sodium 146 H, Potassium 3.3 L, Chloride 103, Carbon Dioxide 28, Anion Gap 18.3 H, BUN 16, Creatinine 1.19 H, Estimated Creat Clear 62, Estimated GFR 46 L, Est GFR ( Amer) 55 L, Glucose 108 H, Calcium 9.4, Total Bilirubin 1.0, AST 41 H, ALT 60, Alkaline Phosphatase 136 H, Total Protein 6.9, Albumin 3.8, Globulin 3.1, Albumin/Globulin Ratio 1.2 04/22/19 18:07: Troponin I < 0.02 04/22/19 21:05: Troponin I < 0.02 I & O for Last 24 hours: Intake & Output 04/20/19 04/21/19 04/22/19 04/23/19 11:59 11:59 11:59 11:59 Intake Total 1027 / 1027 Balance 1027 / 1027 Weight 196 lb 8 oz - *Routine HEENT Exam Head: Present: normocephalic Eye: Present: EOMI, PERRL ENT: Present: mucous membranes moist - *Routine Neck Exam Present: supple. Absent: JVD, carotid bruit - *Routine Respiratory Exam Present: decreased breath sounds, rhonchi, wheezes, diminished air movement. Absent: accessory muscle use, CTA bilaterally, rales - *Routine Cardiovascular Exam Present: RRR, murmur. Absent: gallop, rubs - *Routine Abdominal Exam Present: soft. Absent: tenderness, distended, guarding - *Routine Extremities Exam Absent: edema, calf tenderness - *Routine Neurological Exam Present: alert, oriented X3, moving all extremities Assessment and Plan (1) Syncope and collapse Current visit: Yes Status: Acute Category: Medical Code(s): R55 - Syncope and collapse (2) COPD (chronic obstructive pulmonary disease) Current visit: No Status: Acute Qualifiers: COPD type: COPD with acute exacerbation Qualified Code(s): J44.1 - Chronic obstructive pulmonary disease with (acute) exacerbation Category: Medical Code(s): J44.9 - Chronic obstructive pulmonary disease, unspecified (3) Tobacco use Current visit: No Status: Acute Category: Medical Code(s): Z72.0 - Tobacco use (4) Diastolic dysfunction Current visit: No Status: Chronic Category: Medical Code(s): I51.89 - Other ill-defined heart diseases - Assessment and plan all Dx Assessment and Plan for all problems:: 1. Episodes of syncope seem to be related to orthostatic changes in position. Will check orthostatic vitals today. Manual BP sitting 130/70 mm Hg pulse 80 bpm, standing 100/60 mm Hg pulse 96 bpm. (+) sensation of dizziness and unsteadiness. If orthostatic hypotension does not improve with holding meds, then consider adding proamatine (midodrine) 10 mg TID. 2. Recommend continuing to hold metoprolol and losartan along with lasix for now. Add back slowly if needed. 3. Recent echo and cardiac cath results noted above. 4. No further cardiac testing at this time.
[2019-04-23 10:31] LABS: Microscopic, Urine URINE MICROSCOPIC (MICROSCOPIC)
[2019-04-23 10:41] LABS: Appearance,Urine CLEAR (Clear); Blood, Urine Negative (Negative); Color,Urine YELLOW (Yellow); Glucose,Urine (UA) Negative (Negative); Ketones,Urine TRACE (Negative); Leukocyte Esterase,Urine TRACE (Negative); Protein,Urine Negative (Negative); Specific Gravity, Urine 1.015 (1.005-1.030)
[2019-04-23 10:48] LABS: Bilirubin,Urine Negative (Negative)
[2019-04-23 11:05] LABS: Bacteria,Urine Trace /lpf
--- NOTE | 2019-04-23 14:00 | Progress Note ---
Internal Medicine - PN: Subj *Date: 04/23/19 *Time: 08:00 Interval history: doing better - awaiting card consult - Exam Vital signs and Labs for Last 24 Hours: Temp Pulse Resp BP Pulse Ox 98.2 F 70 18 147/73 H 96 04/23/19 12:00 04/23/19 12:00 04/23/19 12:00 04/23/19 12:00 04/23/19 12:00 Laboratory Results - last 24 hr 04/22/19 13:53: WBC 10.6, RBC 5.02, Hgb 14.4, Hct 45.8, MCV 91.1, MCH 28.7, MCHC 31.5 L, RDW 14.1, Plt Count 201, MPV 9.3, Neut % (Auto) 78.1, Lymph % (Auto) 16.3, [place] % (Auto) 4.3, Eos % (Auto) 0.9, Baso % (Auto) 0.5, Neut # (Auto) 8.3 H, Lymph # (Auto) 1.7, [place] # (Auto) 0.5, Eos # (Auto) 0.1, Baso # (Auto) 0.1 04/22/19 13:53: Troponin I < 0.02 04/22/19 13:53: Sodium 146 H, Potassium 3.3 L, Chloride 103, Carbon Dioxide 28, Anion Gap 18.3 H, BUN 16, Creatinine 1.19 H, Estimated Creat Clear 62, Estimated GFR 46 L, Est GFR ( Amer) 55 L, Glucose 108 H, Calcium 9.4, Total Bilirubin 1.0, AST 41 H, ALT 60, Alkaline Phosphatase 136 H, Total Protein 6.9, Albumin 3.8, Globulin 3.1, Albumin/Globulin Ratio 1.2 04/22/19 18:07: Troponin I < 0.02 04/22/19 21:05: Troponin I < 0.02 04/23/19 10:24: Urine Color Yellow, Urine Appearance Clear, Urine pH 6.0, Ur Specific [place] 1.015, Urine Protein Negative, Urine Glucose (UA) Negative, Urine Ketones Trace, Urine Blood Negative, Urine Nitrate Negative, Urine Bilirubin Negative, Urine Urobilinogen 2.0, Ur Leukocyte Esterase Trace, Urine RBC 5-10, Urine WBC 3-5, Ur Squamous Epith Cells 5-10, Urine Bacteria Trace I & O for Last 24 hours: Intake & Output 04/21/19 04/22/19 04/23/19 04/24/19 11:59 11:59 11:59 11:59 Intake Total 1027 / 1027 Balance 1027 / 1027 Weight 196 lb 8 oz 196 lb 8.003 oz - Constitutional no acute distress - *Routine HEENT Exam Head: Present: normocephalic Eye: Present: EOMI, PERRL, nystagmus ENT: Present: mucous membranes dry - *Routine Neck Exam Present: supple - *Routine Respiratory Exam Present: CTA bilaterally - *Routine Cardiovascular Exam Present: RRR, murmur - *Routine Abdominal Exam Present: soft - *Routine Extremities Exam Absent: calf tenderness - *Routine Skin Exam Present: intact - *Routine Neurological Exam Present: alert, oriented X3, CN II-XII intact - Routine Psychiatric Exam Present: anxious Assessment and Plan (1) Syncope and collapse Current visit: Yes Status: Acute Category: Medical Code(s): R55 - Syncope and collapse (2) COPD (chronic obstructive pulmonary disease) Current visit: No Status: Acute Qualifiers: COPD type: COPD with acute exacerbation Qualified Code(s): J44.1 - Chronic obstructive pulmonary disease with (acute) exacerbation Category: Medical Code(s): J44.9 - Chronic obstructive pulmonary disease, unspecified (3) Tobacco use Current visit: No Status: Acute Category: Medical Code(s): Z72.0 - Tobacco use (4) Diastolic dysfunction Current visit: No Status: Chronic Category: Medical Code(s): I51.89 - Other ill-defined heart diseases (5) Orthostatic hypotension Current visit: Yes Status: Acute Category: Medical Code(s): I95.1 - Orthostatic hypotension (6) Obesity (BMI 30.0-34.9) Current visit: No Status: Acute Category: Medical Code(s): E66.9 - Obesity, unspecified
--- NOTE | 2019-04-24 08:27 | Progress Note ---
Subjective Date: 04/24/19 Time: 08:24 Principal diagnosis: syncope Interval history: 63-year-old white female in bed in no acute distress. States she does not feel well but is vague on details. She denies any chest pain.. Orthostatic vital signs this a.m. reveal a 28 mm Hg drop from lying to standing with some associated dizziness despite the overall blood pressure increase off of antihypertensives. No episodes of syncope at this time. Exam Vital signs and Labs for Last 24 Hours: Temp Pulse Resp BP Pulse Ox 98.5 F 71 19 140/77 95 04/24/19 04:00 04/24/19 06:35 04/24/19 04:00 04/24/19 04:00 04/24/19 06:35 Laboratory Results - last 24 hr 04/23/19 10:24: Urine Color Yellow, Urine Appearance Clear, Urine pH 6.0, Ur Specific [place] 1.015, Urine Protein Negative, Urine Glucose (UA) Negative, Urine Ketones Trace, Urine Blood Negative, Urine Nitrate Negative, Urine Bilirubin Negative, Urine Urobilinogen 2.0, Ur Leukocyte Esterase Trace, Urine RBC 5-10, Urine WBC 3-5, Ur Squamous Epith Cells 5-10, Urine Bacteria Trace I & O for Last 24 hours: Intake & Output 04/21/19 04/22/19 04/23/19 04/24/19 11:59 11:59 11:59 11:59 Intake Total 1027 / 1027 1592 / 1592 Balance 1027 / 1027 1592 / 1592 Weight 196 lb 8 oz 196 lb 8.003 oz - *Routine HEENT Exam Head: Present: normocephalic Eye: Present: EOMI, PERRL ENT: Present: mucous membranes moist - *Routine Respiratory Exam Present: rhonchi, wheezes. Absent: accessory muscle use, rales - *Routine Cardiovascular Exam Present: RRR. Absent: murmur, gallop, rubs - *Routine Extremities Exam Absent: edema, calf tenderness Progress Note: A&P (1) Syncope and collapse Status: Acute Current Visit: Yes (2) COPD (chronic obstructive pulmonary disease) Status: Acute Current Visit: No (3) Tobacco use Status: Acute Current Visit: No (4) Diastolic dysfunction Status: Chronic Current Visit: No (5) Orthostatic hypotension Status: Acute Current Visit: Yes (6) Obesity (BMI 30.0-34.9) Status: Acute Current Visit: No Assessment and Plan for All Diagnoses:: 1. Continue to hold antihypertensives but will likely need to restart them in the near future. 2. Liberalize salt in diet 3. We will discuss with primary physician regarding possible MRI of the brain to assess for prior CVA which could be done as outpatient. 4. Discussed with Dr. Bonner, Consider that abilify can cause ortho hypotension and possibly switching to alternative med if possible.
--- NOTE | 2019-04-24 09:27 | Progress Note ---
Internal Medicine - PN: Subj *Date: 04/24/19 *Time: 09:23 Interval history: Today patient states she is feeling better. Exam Vital signs and Labs for Last 24 Hours: Temp Pulse Resp BP Pulse Ox 98.8 F 72 18 144/78 H 94 L 04/24/19 08:00 04/24/19 08:00 04/24/19 08:00 04/24/19 08:00 04/24/19 08:00 Laboratory Results - last 24 hr 04/23/19 10:24: Urine Color Yellow, Urine Appearance Clear, Urine pH 6.0, Ur Specific [place] 1.015, Urine Protein Negative, Urine Glucose (UA) Negative, Urine Ketones Trace, Urine Blood Negative, Urine Nitrate Negative, Urine Bilirubin Negative, Urine Urobilinogen 2.0, Ur Leukocyte Esterase Trace, Urine RBC 5-10, Urine WBC 3-5, Ur Squamous Epith Cells 5-10, Urine Bacteria Trace I & O for Last 24 hours: Intake & Output 04/21/19 04/22/19 04/23/19 04/24/19 11:59 11:59 11:59 11:59 Intake Total 1027 / 1027 1592 / 1592 Balance 1027 / 1027 1592 / 1592 Weight 196 lb 8 oz 196 lb 8.003 oz - Constitutional no acute distress - *Routine HEENT Exam Head: Present: normocephalic Eye: Present: PERRL ENT: Present: mucous membranes moist - *Routine Neck Exam Present: supple. Absent: lymphadenopathy - *Routine Respiratory Exam Present: rhonchi, wheezes, diminished air movement - *Routine Cardiovascular Exam Present: RRR - *Routine Abdominal Exam Present: soft, normoactive bowel sounds. Absent: tenderness - *Routine Extremities Exam Present: full ROM. Absent: cyanosis, clubbing, edema - *Routine Skin Exam Present: intact, warm. Absent: rash - *Routine Neurological Exam Present: alert, oriented X3 Assessment and Plan (1) Syncope and collapse Current visit: Yes Status: Acute Category: Medical Code(s): R55 - Syncope and collapse (2) COPD (chronic obstructive pulmonary disease) Current visit: No Status: Acute Qualifiers: COPD type: COPD with acute exacerbation Qualified Code(s): J44.1 - Chronic obstructive pulmonary disease with (acute) exacerbation Category: Medical Code(s): J44.9 - Chronic obstructive pulmonary disease, unspecified (3) Tobacco use Current visit: No Status: Acute Category: Medical Code(s): Z72.0 - Tobacco use (4) Diastolic dysfunction Current visit: No Status: Chronic Category: Medical Code(s): I51.89 - Other ill-defined heart diseases (5) Orthostatic hypotension Current visit: Yes Status: Acute Category: Medical Code(s): I95.1 - Orthostatic hypotension (6) Obesity (BMI 30.0-34.9) Current visit: No Status: Acute Category: Medical Code(s): E66.9 - Obesity, unspecified - Assessment and plan all Dx Assessment and Plan for all problems:: Stop Abilify and trazodone Consult Maria Dolores Cerrato for medication Continue to monitor vitals to see if these 2 medications is caused her orthostatic hypotension
--- NOTE | 2019-04-24 17:25 | Consult Report ---
*Admission Date: 04/22/19 *Reason for consult:: depression *History of present illness: I saw patient in her room; she was laying down in her bed; alone. -she states that she is here cause she gave up on everything -states that she stopped taking her medicines -not sure how long ago she stopped these -she states that her mind does not feel right -that things are not the same -says that she has also been forgetting a lot of things -admitted for falls -fell Sunday at [facility] -fell at home on Sunday -gets dizzy -then she will fall; sees black ORIENTATION QUESTIONS: -March -Sunday -the 3rd; then states that it is Sunday -1919 -[facility] -fall -[facility] -states no ifs; no its; it aint no buts -immediate recall of the following: watch; boat; dog; took her 4 tries to recall these; had to tell her 2 times before she could repeat them back to me -recall after 3 minutes; 3/3 -would not even attempt to count backwards from 100 by 7 -[id number] -[id number] States that she thinks a lot about dying. That she is ready to move on. She does not want to live any longer like she is. She states that she knows aldo ething is wrong in her head but she doesnt know what it is. She states that she used to be happy and now she is not. She gets lonely. She states that the depression has been bad. She is isolating herself. Laying in bed all day long with the lights off. Just staring into space. She states that she is not cleaning her house; or watching tv; just sitting there. She states that she does not sleep good. She will lay there with her eyes closed but doesnt really sleep. She states that she just feels something is wrong and she cant figure out what it is. She denies any suicidal ideations. However she is hopeless and states that she does nto want to live any longer. I did talk to her about assisted living facilities but she did nto give me a straight answer as to what she thought about these. RECOMMENDATIONS: 1. Consider starting something else for depression. Prozac 20mg daily. 2. would talk to her about assisted living facilities. TIME IN: 1015am TIME OUT: 1040am [facility] History Medical History: Reports:: Anxiety, Atherosclerotic Heart Disease, Congestive Heart Failure, Chronic Obstructive Pulmonary Disease (COPD), Congenital Heart Di sease, Coronary Artery Disease, Gastroesophageal Reflux Disease(GERD), Hyperlipidemia, Hypertension, Internal Pacemaker, Lung Disease (o2 at night/COPD), Renal Disease Denies:: Cancer, Diabetes Mellitus Type 1, Diabetes Mellitus Type 2, MRSA, Seizures *Have you ever received a pneumonia vaccine?: No *Have you received a flu vaccine this season?: No Other Medical History: Reports: Arthritis, Cataracts, Thyroid Disease Laterality Cases: Right: Arthroscopy Knee, Bilateral: Cataract, Tonsillectomy Other Surgeries: Yes: No Previous Surgery, Cardiac Catheterization, Cardiac Surgery, Cholecystectomy, Colonoscopy, EGD, Hysterectomy-Total, Pacemaker, Thyroidectomy, Other (wrist surgery) Amputation: No Fractures: No - *Social History Educational Level: Completed Grade School Smoking Status: Current every day smoker Tobacco Type: cigarettes # Packs/Day (cigarettes): 1 #Yrs smoked (if former smoker): 30 Alcohol Intake: former Alcohol Intake Frequency:: other Substance Use Type: denies use *Occupational Status:: disabled Housing: apartment Household Members: none *Travel in the last 8 weeks: None - Psychiatric History Pschychiatric History:: Reports:: Anxiety Family Hx:: Asthma, Cancer, Coronary Artery Disease, Diabetes, Heart Attack, Hyperlipidemia, Hypertension, Tuberculosis, Mental illness Review of Systems - *Neurologic Reports headache(s), Reports fainting, Denies localized weakness, Denies numbness Meds Home Medications Medication Instructions Recorded Confirmed Type Albuterol Sulfate [Albuterol HFA 1 - 2 puffs INHALATION Q4HP PRN 04/28/18 04/22/19 History Inhaler] omeprazole 40 mg capsule,delayed 40 mg PO DAILY #90 cap 11/27/18 04/22/19 Rx release trazodone 100 mg tablet 100 mg PO HS #30 tab 03/07/19 04/22/19 Rx buPROPion HCl [Wellbutrin Xl] 300 mg PO DAILY 03/08/19 04/22/19 History montelukast 10 mg tablet 10 mg PO HS #90 tab 03/13/19 04/22/19 Rx gabapentin 600 mg tablet 600 mg PO TID #90 tab 04/08/19 04/22/19 Rx atorvastatin 80 mg tablet 80 mg PO HS #90 tab 04/14/19 04/22/19 Rx losartan 25 mg tablet 25 mg PO DAILY #90 tab 04/14/19 04/22/19 Rx metoprolol tartrate 25 mg tablet 25 mg PO DAILY #90 tab 04/14/19 04/22/19 Rx Aspirin [Aspir 81] 81 mg PO DAILY 04/22/19 04/22/19 History Fluticasone/Umeclidin/Vilanter 1 puff INHALATION DAILYP PRN 04/22/19 04/22/19 History [Trelegy Ellipta 100-62.5-25] Ipratropium/Albuterol Sulfate 3 ml IH BID 04/22/19 04/22/19 History [Duoneb 3mL neb] Potassium Chloride 20 meq PO DAILY 04/22/19 04/22/19 History ARIPiprazole [Aripiprazole 10mg 10 mg PO HS 04/23/19 04/23/19 History Tablet] Furosemide [Furosemide 40MG tAB] 40 mg PO NEEDED PRN 04/23/19 04/23/19 History Ropinirole HCl [Requip 0.25mg 0.25 mg PO HS 04/23/19 04/23/19 History Tablet] Allergies Allergy/AdvReac Type Severity Reaction Status Date / Time verapamil Allergy Severe Rash Verified 04/22/19 16:23 Penicillins [PENICILLINS] Allergy Unknown I-RASH Verified 04/22/19 16:23 Sulfa (Sulfonamide Allergy Unknown NA-NAUSEA/V Verified 04/22/19 16:23 Antibiotics) OMITING [SULFA (SULFONAMIDE ANTIBIOTICS)] Exam Vital signs and Labs for Last 24 Hours: Temp Pulse Resp BP Pulse Ox 98.6 F 72 17 140/78 92 L 04/24/19 16:00 04/24/19 16:00 04/24/19 16:00 04/24/19 16:00 04/24/19 16:00 I & O for Last 24 hours: Intake & Output 04/22/19 04/23/19 04/24/19 04/25/19 11:59 11:59 11:59 11:59 Intake Total 1027 / 1027 1592 / 1592 240 / 240 Balance 1027 / 1027 1592 / 1592 240 / 240 Weight 196 lb 8 oz 196 lb 8.003 oz Internal Medicine - CN: Reslt - Labs CBC & Chem 7: 04/22/19 13:53 04/22/19 13:53 Assessment and Plan (1) Syncope and collapse Current visit: Yes Status: Acute Category: Medical Code(s): R55 - Syncope and collapse (2) COPD (chronic obstructive pulmonary disease) Current visit: No Status: Acute Qualifiers: COPD type: COPD with acute exacerbation Qualified Code(s): J44.1 - Chronic obstructive pulmonary disease with (acute) exacerbation Category: Medical Code(s): J44.9 - Chronic obstructive pulmonary disease, unspecified (3) Tobacco use Current visit: No Status: Acute Category: Medical Code(s): Z72.0 - Tobacco use (4) Diastolic dysfunction Current visit: No Status: Chronic Category: Medical Code(s): I51.89 - Other ill-defined heart diseases (5) Orthostatic hypotension Current visit: Yes Status: Acute Category: Medical Code(s): I95.1 - Orthostatic hypotension (6) Obesity (BMI 30.0-34.9) Current visit: No Status: Acute Category: Medical Code(s): E66.9 - Obesity, unspecified
--- NOTE | 2019-04-25 07:53 | Progress Note ---
Subjective Date: 04/25/19 Time: 07:51 Principal diagnosis: syncope Interval history: 63-year-old white female sitting in bed in no acute distress. She states she does not feel any better since her hospital stay began. She is still unsteady on her feet with complaint of dizziness. Manual blood pressure readings today continue to show significant drop from lying to sitting to standing with lying blood pressure 168 mmHg systolic to standing 124 mmHg. Patient has tried to increase her salt intake. Her antidepressant medications have been adjusted as well. Exam Vital signs and Labs for Last 24 Hours: Temp Pulse Resp BP Pulse Ox 98.1 F 70 20 158/77 H 95 04/25/19 04:00 04/25/19 06:03 04/25/19 04:00 04/25/19 04:00 04/25/19 04:00 I & O for Last 24 hours: Intake & Output 04/22/19 04/23/19 04/24/19 04/25/19 11:59 11:59 11:59 11:59 Intake Total 1027 / 1027 1592 / 1592 1264 / 1264 Output Total 700 / 700 Balance 1027 / 1027 1592 / 1592 564 / 564 Weight 196 lb 8 oz 196 lb 8.003 oz 200 lb 3 oz - *Routine Respiratory Exam Present: CTA bilaterally. Absent: accessory muscle use, rales, rhonchi, wheezes - *Routine Cardiovascular Exam Present: RRR. Absent: murmur, gallop, rubs - *Routine Extremities Exam Absent: edema, calf tenderness - *Routine Neurological Exam Present: alert, oriented X3, moving all extremities Progress Note: A&P (1) Syncope and collapse Status: Acute Current Visit: Yes (2) COPD (chronic obstructive pulmonary disease) Status: Acute Current Visit: No (3) Tobacco use Status: Acute Current Visit: No (4) Diastolic dysfunction Status: Chronic Current Visit: No (5) Orthostatic hypotension Status: Acute Current Visit: Yes (6) Obesity (BMI 30.0-34.9) Status: Acute Current Visit: No Assessment and Plan for All Diagnoses:: 1. Begin midodrine 5 mg p.o. 3 times daily and monitor blood pressure closely. 2. Timing of discharge per Dr. Jeffers
--- NOTE | 2019-04-25 09:48 | Electrocardiograph Report ---
APPROVED REPORT Exam: Resting ECG HR:70 bpm ECG Measurements Heart Rate 70 AXES IA 124 P 47 QRSd 68 QRS 9 QT 376 T14 QTc 406 <Conclusion> Normal sinus rhythm Low voltage QRS Nonspecific T wave abnormality Abnormal ECG Electronically signed by : Cristopher Ryder, 04/25/2019 09:47:40
[2019-04-25 13:18] LABS: Calcium 8.8 mg/dL (8.5-10.1)
--- NOTE | 2019-04-25 13:52 | Progress Note ---
Internal Medicine - PN: Subj *Date: 04/26/19 *Time: 07:35 Interval history: doing better-still with orthostasis Exam Vital signs and Labs for Last 24 Hours: Temp Pulse Resp BP Pulse Ox 98.4 F 93 H 20 138/82 99 04/25/19 12:00 04/25/19 12:00 04/25/19 12:00 04/25/19 12:00 04/25/19 12:00 Laboratory Results - last 24 hr 04/25/19 09:25: Sodium 146 H, Potassium 3.0 L, Chloride 109 H, Carbon Dioxide 27, Anion Gap 13.0, BUN 11 D, Creatinine 1.08 H, Estimated Creat Clear 74, Estimated GFR 51 L, Est GFR ( Amer) 62, Glucose 126 H, Calcium 8.8 I & O for Last 24 hours: Intake & Output 04/23/19 04/24/19 04/25/19 04/26/19 11:59 11:59 11:59 11:59 Intake Total 1027 / 1027 1592 / 1592 1504 / 1504 Output Total 700 / 700 Balance 1027 / 1027 1592 / 1592 804 / 804 Weight 196 lb 8 oz 196 lb 8.003 oz 200 lb 3 oz - Constitutional no acute distress - *Routine HEENT Exam Head: Present: normocephalic Eye: Present: EOMI, PERRL ENT: Present: mucous membranes dry - *Routine Neck Exam Present: supple - *Routine Respiratory Exam Present: wheezes - *Routine Cardiovascular Exam Present: RRR - *Routine Abdominal Exam Present: soft - *Routine Extremities Exam Present: full ROM - *Routine Skin Exam Present: intact - *Routine Neurological Exam Present: alert, CN II-XII intact - Routine Psychiatric Exam Present: anxious Assessment and Plan (1) Syncope and collapse Current visit: Yes Status: Acute Category: Medical Code(s): R55 - Syncope and collapse (2) COPD (chronic obstructive pulmonary disease) Current visit: No Status: Acute Qualifiers: COPD type: COPD with acute exacerbation Qualified Code(s): J44.1 - Chronic obstructive pulmonary disease with (acute) exacerbation Category: Medical Code(s): J44.9 - Chronic obstructive pulmonary disease, unspecified (3) Tobacco use Current visit: No Status: Acute Category: Medical Code(s): Z72.0 - Tobacco use (4) Diastolic dysfunction Current visit: No Status: Chronic Category: Medical Code(s): I51.89 - Other ill-defined heart diseases (5) Orthostatic hypotension Current visit: Yes Status: Acute Category: Medical Code(s): I95.1 - Orthostatic hypotension (6) Obesity (BMI 30.0-34.9) Current visit: No Status: Acute Category: Medical Code(s): E66.9 - Obesity, unspecified
--- NOTE | 2019-04-25 14:18 | Cardiology Report ---
APPROVED REPORT Equal Opportunity Officer: SARAH Laterality: Bilateral Study Quality: Good Indications: dizzyness/syncope Doppler Spectral Velocity Analysis ECA (R) 94.30/ cm/sECA (L) 89.40/12.60 cm/s dICA (R) 86.40/26.70 cm/sdICA (L) 107.00/30.70 cm/s Godfrey (R) 53.30/17.00 cm/smICA (L) 82.40/25.80 cm/s pICA (R) 121.00/14.90 cm/spICA (L) 75.40/12.60 cm/s dCCA (R) 66.00/14.10 cm/sdCCA (L) 79.60/16.80 cm/s pCCA (R) 121.00/22.00 cm/spCCA (L) 99.20/20.30 cm/s Vert (R) 50.60/ cm/sVert (L) 55.20/ cm/s ICA/CCA 1.83 ICA/CCA 1.34 Conclusion Duplex evaluation demonstrates stenosis of the right proximal internal carotid artery <20% with PSV <140 cm/sec, EDV <100 cm/sec, and IC/CC Ratio <4.0.Duplex evaluation demonstrates stenosis of the left proximal internal carotid artery <20% with PSV <140 cm/sec, EDV <100 cm/sec, and IC/CC Ratio <4.0.Antegrade flow seen bilateral vertebral arteries. Electronically signed by : Roman Cardenas MD 04/25/2019 14:17:59
--- NOTE | 2019-04-26 09:20 | Discharge Summary ---
General - General Admission date:: 04/22/19 Discharge date: 04/26/19 HPI HPI: this wf with episode of syncope and presented to the ed -T STATES THAT SHE FELL TODAY AT APPROX 1100. PT NOW C/O RT KNEE AND HIP PAIN. PT STATES THAT SHE HAS BEEN EXPERIENCING PROGRESSIVE DIZZINESS THAT HAS BEEN CAUSING HER TO FALL. PT ADVISES THIS IS THE 2ND TIME SHE HAS FALLEN THIS WEEK. PT DENIES HITTING HER HEAD DURING THE FALL TOD States that she is having "blackout spells". Says that she had one this morning causing her to fall and strike her right cheek. She says she "kind of passed out". Also injured her right hip and knee. She has a mild headache. No vo miting. No numbness or weakness of the extremities. No chest pain or shortness of breath. Says that she called her PCP and they told her to come to the emergency room. She was also seen by me in this emergency department on 04/18/2019 for a syncopal episode. Hospital Course Hospital Course: pt has improved off meds and has some drop but better - has seen pschy and will be followed closely in office with depression and bp bacco use 2. Hypertension A. Echo, 02/2019, 1. Mildly enlarged left atrium, normal left ventricular size, mild concentric left ventricular hypertrophy, visually estimated ejection fraction 55% with no regional wall motion abnormality, grade 1 diastolic dysfunction seen without tissue Doppler evidence of raise left atrial pressure. 2. Mild mitral and tricuspid regurgitation 3. No significant pericardial effusion noted. 3. Normal coronary arteries by cardiac cath with LVEDP of 20 mm Hg, 12/2018 4. History of pacemaker insertion for sick sinus syndrome, 2014 A. Ventricular noise noted on multiple interrogations but both leads functioning appropriately 5. History of GERD 6. History of anxiety 7. History of diastolic 63-year-old white female admitted through the ER yesterday for recurrent episodes of passing out. Patient relates an episode last week while at [facility] in the checkout line when she felt dizzy and had to sit down which did help prevent passing out. Yesterday evening, at her home, while walking in the house, she turned to change direction and suddenly felt lightheaded and dizzy with subsequent passing out. She did fall on the floor but denies hitting her head. She did not lose control of her bowels or bladder. She feels like she was only out for a few seconds and then was able to contact a family member to come get her for transportation to the hospital. CT of the head and face were unremarkable. X-rays of the hip and knee were negative for fractures. Troponins were normal overnight. Telemetry shows no significant arrhythmias. Interrogation of her pacemaker this a.m. shows no evidence of arrhythmias surrounding the time of her symptoms. Cardiac cath earlier this year showed normal coronary arteries and normal left ventricular ejection fraction. Cardiology consulted for evaluation. pt was thought to have Episodes of syncope seem to be related to orthostatic changes in position. Will check orthostatic vitals today. Manual BP sitting 130/70 mm Hg pulse 80 bpm, standing 100/60 mm Hg pulse 96 bpm. (+) sensation of dizziness and unsteadiness. If orthostatic hypotension does not improve with holding meds, then consider adding proamatine (midodrine) 10 mg TID. 2. Recommend continuing to hold metoprolol and losartan along with lasix for now. Add back slowly if needed. 3. Recent echo and cardiac cath results noted above. 4. No further cardiac testing at this time. ontinue to hold antihypertensives but will likely need to restart them in the near future.Due to increasing BP will add back low dose metoprolol succinate ER 25 mg qHS. Continue the midodrine 5 mg TID. 2. Liberalize salt in diet 3. We will discuss with primary physician regarding possible MRI of the brain to assess for prior CVA which could be done as outpatient. 4. Discussed with Dr. Bonner, Consider that abilify can cause ortho hypotension and possibly switching to alternative med if possible. and was seen by pschyCOMMENDATIONS: 1. Consider starting something else for depression. Prozac 20mg daily. 2. would talk to her about assisted living facilities. will follow at office closely Objective Vital signs: Temp Pulse Resp BP Pulse Ox 98.2 F 71 17 144/76 H 92 L 04/26/19 08:00 04/26/19 08:00 04/26/19 08:00 04/26/19 08:00 04/26/19 08:00 no acute distress - *Routine HEENT Exam Head: Present: normocephalic Eye: Present: EOMI, PERRL ENT: Present: mucous membranes dry - *Routine Neck Exam Present: supple. Absent: JVD - *Routine Respiratory Exam Present: wheezes - *Routine Cardiovascular Exam Present: RRR, murmur, S4 - *Routine Abdominal Exam Present: soft - *Routine Extremities Exam Absent: calf tenderness - *Routine Skin Exam Present: intact - *Routine Neurological Exam Present: alert, oriented X3, CN II-XII intact - Routine Psychiatric Exam Present: depressed. Absent: suicidal ideation, good insight Results Labs on day of discharge: Labs from last 24 hours 04/25/19 09:25 Sodium 146 H Potassium 3.0 L Chloride 109 H Carbon Dioxide 27 Anion Gap 13.0 BUN 11 D Creatinine 1.08 H Estimated Creat Clear 74 Estimated GFR 51 L Est GFR ( Amer) 62 Glucose 126 H Calcium 8.8 DS: Diagnosis - Discharge Diagnosis (1) Syncope and collapse Status: Acute (2) COPD (chronic obstructive pulmonary disease) Status: Acute (3) Tobacco use Status: Acute (4) Diastolic dysfunction Status: Chronic (5) Orthostatic hypotension Status: Acute (6) Obesity (BMI 30.0-34.9) Status: Acute (7) Depression Status: Acute Discharge Plan - Patient Discharge Instructions ACTIVITY: Continue current activity DIET: continue same diet Patient Instructions: DI for Syncope in Adults (Fainting), Acute Bronchitis - Follow up Plan Disposition: Home, Self-Detention Medications: Home Medications Medication Instructions Recorded Confirmed Type Albuterol Sulfate [Albuterol HFA 1 - 2 puffs INHALATION Q4HP PRN 04/28/18 04/22/19 History Inhaler] omeprazole 40 mg capsule,delayed 40 mg PO DAILY #90 cap 11/27/18 04/22/19 Rx release trazodone 100 mg tablet 100 mg PO HS #30 tab 03/07/19 04/22/19 Rx buPROPion HCl [Wellbutrin Xl] 300 mg PO DAILY 03/08/19 04/22/19 History montelukast 10 mg tablet 10 mg PO HS #90 tab 03/13/19 04/22/19 Rx gabapentin 600 mg tablet 600 mg PO TID #90 tab 04/08/19 04/22/19 Rx atorvastatin 80 mg tablet 80 mg PO HS #90 tab 04/14/19 04/22/19 Rx losartan 25 mg tablet 25 mg PO DAILY #90 tab 04/14/19 04/22/19 Rx metoprolol tartrate 25 mg tablet 25 mg PO DAILY #90 tab 04/14/19 04/22/19 Rx Aspirin [Aspir 81] 81 mg PO DAILY 04/22/19 04/22/19 History Fluticasone/Umeclidin/Vilanter 1 puff INHALATION DAILYP PRN 04/22/19 04/22/19 History [Trelegy Ellipta 100-62.5-25] Ipratropium/Albuterol Sulfate 3 ml IH BID 04/22/19 04/22/19 History [Duoneb 3mL neb] Potassium Chloride 20 meq PO DAILY 04/22/19 04/22/19 History ARIPiprazole [Aripiprazole 10mg 10 mg PO HS 04/23/19 04/23/19 History Tablet] Furosemide [Furosemide 40MG tAB] 40 mg PO NEEDED PRN 04/23/19 04/23/19 History Ropinirole HCl [Requip 0.25mg 0.25 mg PO HS 04/23/19 04/23/19 History Tablet] Metoprolol Succinate [Toprol XL 25 mg PO DAILY #30 tab.er.24h 04/26/19 Rx 25mg tablet] Midodrine HCl [Midodrine 5mg 5 mg PO TID #30 tab 04/26/19 Rx Tablet] Prescriptions/Medication Reconciliation: New Atorvastatin Calcium [Lipitor 40mg Tablet] 80 mg PO HS tablet Ropinirole HCl [Requip 0.25mg Tablet] 0.25 mg PO HS tablet Montelukast Sodium [Singulair 10mg tablet] 10 mg PO PM tablet Midodrine HCl [Midodrine 5mg Tablet] 5 mg PO TID #30 tab Metoprolol Succinate [Toprol XL 25mg tablet] 25 mg PO DAILY #30 tab.er.24h Continued omeprazole 40 mg capsule,delayed release 40 mg PO DAILY #90 cap trazodone 100 mg tablet 100 mg PO HS #30 tab montelukast 10 mg tablet 10 mg PO HS #90 tab atorvastatin 80 mg tablet 80 mg PO HS #90 tab Albuterol Sulfate [Albuterol HFA Inhaler] 1 - 2 puffs INHALATION Q4HP PRN PRN Reason: Shortness Of Breath Or Wheezing Fluticasone/Umeclidin/Vilanter [Trelegy Ellipta 100-62.5-25] 1 puff INHALATION DAILYP PRN PRN Reason: shortness of air Ipratropium/Albuterol Sulfate [Duoneb 3mL neb] 3 ml IH BID Aspirin [Aspir 81] 81 mg PO DAILY Ropinirole HCl [Requip 0.25mg Tablet] 0.25 mg PO HS Discontinued losartan 25 mg tablet 25 mg PO DAILY #90 tab metoprolol tartrate 25 mg tablet 25 mg PO DAILY #90 tab gabapentin 600 mg tablet 600 mg PO TID #90 tab buPROPion HCl [Wellbutrin Xl] 300 mg PO DAILY Potassium Chloride 20 meq PO DAILY ARIPiprazole [Aripiprazole 10mg Tablet] 10 mg PO HS Furosemide [Furosemide 40MG tAB] 40 mg PO NEEDED PRN PRN Reason: DIURETIC - Problem Reconciliation Problems Reviewed?: Yes
== END 2019-04-26 12:55 | disposition home or self-care (01) ==
LOC: UTC 12:09 → 2ND 12:09 → ER 12:09 → 2ND 15:55
PROVIDERS: ADMIT Emergency Medicine; ATTEND Emergency Medicine
CPT/HCPCS: 36415; 70450; 70486; 73502; 73564; 80048; 80053; 81001; 84484; 85025; 93005; 93880; 94640; 94761; 97161; 97165; 99284; G0378

== ENCOUNTER → 2020-01-22 14:01 | Outpatient (CLI) | payer MEDICARE, MEDICAID, SELFPAY ==
[2020-01-25 08:25] LABS: Covid-19 Nasal PCR Sendout UK Not Detected
== END ==
PROVIDERS: PCP Emergency Medicine; Visit Provider Physician Assistant
DX: Z03.818 Encounter for observation for suspected exposure to other biological agents ruled out (principal)
CPT/HCPCS: U0003; U0004

== ENCOUNTER → 2020-03-22 10:43 | Outpatient (POV) | payer MEDICARE, MEDICAID, SELFPAY ==
[2020-03-22 11:28] VITALS: BP 143/84; PULSE 70; TEMP 36.6; BMI 33.2
--- NOTE | 2020-03-22 11:42 | HMH.PAINSOAP ---
[facility] Pain Management SOAP Note Subjective:: Patient is a 64-year-old white female who presents today for follow-up after a fall that affected bilateral knees. Patient states she needs something for pain. Patient is currently on Rulo from her primary care physician. We no longer prescribe due to a failed pill count. I discussed with her that we cannot prescribe any medications for her pain. I did offer her bilateral knee injection she would like to move forward with this. ROS General: no recent weight change, no fever, no sleep disturbances Respiratory: no cough, no shortness of air, no recurring pulmonary infections Cardiovascular/Peripheral Vascular: No chest pain, No palpitations, no edema, no shortness of breath. Gastrointestinal: no new onset incontinence, normal bowel movements reported Genitourinary: no new onset incontinence Musculoskeletal: Bilateral knee pain Psychiatric: normal mood/ affect Neurological: [denies new onset weakness in extremities], [denies new onset balance issues] Objective:: Physical Exam General: Alert and oriented x3, no acute distress, pleasant and cooperative, [on room air] Lungs: Resps E/U, Symmetrical chest expansion, Eyes: PERRL Musculoskeletal: Flexion and extension of lumbar spine somewhat guarded secondary to pain, deep tendon reflexes normal, strength in upper and lower extremities [5/5], [abnormal gait noted] Neurological: speech clear, dewaxer equal, no gross sensory deficits Assessment:: Bilateral knee pain Plan:: We will set the patient up for bilateral knee injections. Patient understands we cannot give her any narcotic medication she is receiving narcotic medication from her primary care physician. Patient has failed a pill count in the past. I will follow-up with her after her injection reassess her symptoms at that time she has been instructed to call the office if she has any issues prior to her next appointment. Dr. Hawkins has reviewed this note and agrees with this plan of care. This note was dictated using voice recognition software and may contain errors or omissions [facility] History I have reviewed the patient's past medical history: Yes Medical History: Reports:: Anxiety, Atherosclerotic Heart Disease, Congestive Heart Failure, Chronic Obstructive Pulmonary Disease (COPD), Congenital Heart Disease, Coronary Artery Disease, Gastroesophageal Reflux Disease(GERD), Gastrointestinal Bleed, Home Oxygen, Hyperlipidemia, Hypertension, Internal Pacemaker, Lung Disease, Renal Disease Denies:: Cancer, Diabetes Mellitus Type 1, Diabetes Mellitus Type 2, MRSA, Seizures *Have you ever received a pneumonia vaccine?: Yes *Have you received a flu vaccine this season?: No Other Medical History: Reports: Arthritis, Cataracts, Thyroid Disease Laterality Cases: Right: Arthroscopy Knee, Bilateral: Tonsillectomy Other Surgeries: Yes: No Previous Surgery, Cardiac Catheterization, Cardiac Surgery, Cholecystectomy, Colonoscopy, EGD, Hysterectomy-Total, Pacemaker, Thyroidectomy, Other (wrist surgery) Amputation: No Fractures: No - *Social History Smoking Status: Current every day smoker Tobacco Type: cigarettes # Packs/Day (cigarettes): 1 #Yrs smoked (if former smoker): 30 Alcohol Intake: never Alcohol Intake Frequency:: other Substance Use Type: denies use *Occupational Status:: disabled Housing: apartment Household Members: none *Travel in the last 8 weeks: None - Psychiatric History Pschychiatric History:: Reports:: Anxiety Family Hx:: Asthma, Cancer, Coronary Artery Disease, Diabetes, Heart Attack, Hyperlipidemia, Hypertension, Tuberculosis, Mental illness
== END ==
PROVIDERS: PCP Emergency Medicine; Visit Provider Clinical Nurse Specialist Family Health
DX: M25.561 Pain in right knee (principal); M25.562 Pain in left knee
CPT/HCPCS: 99212

== ENCOUNTER 2020-03-27 15:42 | Emergency (ER) | payer MEDICARE, MEDICAID, SELFPAY ==
[2020-03-27 15:56] VITALS: BP 139/73; PULSE 82; RESP 19; TEMP 36.9; O2SAT 96; BMI 32.5
[2020-03-27 16:49] LABS: UTC Strep Screen (Rapid) Negative (Negative)
[2020-03-27 16:50] LABS: UTC Influenza A Antigen Negative (Negative); UTC Influenza B Antigen Negative (Negative)
--- NOTE | 2020-03-27 16:52 | HMH.EDUTC ---
[facility] [place] Disposition Clinical Impression: COPD exacerbation, Viral syndrome Disposition: Home, Self-Care Condition on Discharge: Good Instructions: Chronic Obstructive Pulmonary Disease, DI for Viral Syndrome Additional Instructions: Drink plenty of fluids. Take tylenol for pain or fever. Take the medications as directed. Follow up with your regular doctor. GO TO THE ER FOR ANY WORSENING SYMPTOMS FOLLOW THE DIRECTIONS ON THE COVID-19 HAND OUT THAT WE GAVE YOU REGARDING SELF-ISOLATION UNTIL YOU KNOW YOUR COVID-19 RESULTS Prescriptions: Ondansetron [Zofran 4mg ODT] 4 mg PO Q8HP PRN #10 tab.rapdis PRN Reason: Nausea Transmission Status: Received by [id number] Azithromycin [Z-Ambrose 250mg Tab*] 250 mg PO UD DOSE PK #6 tab Transmission Status: Received by [id number] Referrals: Ilir Jeffers MD [Primary Care Provider] - Time of Disposition: 17:04 Medical Decision Making - Medical Records Medical records reviewed: No: I reviewed the patient's medical records. - Anibal Inquiry Pt receiving controlled substance: No Vital Signs: 03/27/20 15:56 03/27/20 17:07 Temperature 98.4 F 98.4 F Temperature Source Oral Pulse Rate 82 Pulse Rate [Right Brachial] 82 Respiratory Rate 19 19 Blood Pressure 139/73 Blood Pressure [Right Arm] 139/73 Blood Pressure Mean [Right Arm] 95 Blood Pressure Source [Right Arm] Automatic Cuff Blood Pressure Position [Right Arm] Sitting 02 Sat by Pulse Oximetry 96 Oxygen Delivery Method Room Air - Lab Data Lab results reviewed: Yes: I reviewed the patient's lab results. Lab Results 03/27/20 16:32: Influenza Type A Ag Negative, Influenza Type B Ag Negative 03/27/20 16:48: Strep Scn Rapid Clinic Negative Orders (Tests/Meds): ORDERS Category Date Time Status Covid-19 Nasal PCR Sendout [facility] Routine Lab 03/27/20 17:50 Received Strep Screen Confirmation Stat Micro 03/27/20 16:48 Received [facility] [place] HPI - General Stated complaint: Cough, diarrhea, sweaty Time Seen by Provider: 03/27/20 16:00 Mode of Arrival: Ambulatory Source of Information: Patient Limitations: No Limitations Description of Symptoms (Recalled from Triage Doc. by RN): PATIENT C/O COUGH, DIARRHEA, AND NOT FEELING GOOT X 2 DAYS HEENT Symptoms (Recalled from RN notes): No Resp Symptoms (Recalled from RN notes): Yes Skin Symptoms (Recalled from RN notes): No MS Symptoms (Recalled from RN notes): No Functional Status (Recalled from RN notes): WNL - History of Present Illness Provider Complaint: She c/o feeling bad and coughing for the past 3 days. She has had nausea, diarrhea and a worsening dry cough. She denies any known exposure to COVID-19. She states that she has been staying at home, but she has been around a few of her neighbors. - Related Data Home Medications Medication Instructions Recorded Confirmed Albuterol Sulfate [Ventolin HFA 1 - 2 puffs INHALATION Q4HP PRN 04/28/18 01/28/20 Inhaler] Aspirin [Aspir 81] 81 mg PO DAILY 04/22/19 01/28/20 Fluticasone/Umeclidin/Vilanter 1 puff INHALATION DAILYP PRN 04/22/19 01/28/20 [Trelegy Ellipta 100-62.5-25] Ipratropium/Albuterol Sulfate 3 ml IH BID 04/22/19 01/28/20 [Duoneb 3mL neb] Midodrine HCl [Midodrine 5mg 5 mg PO TID 04/27/19 01/28/20 Tablet] losartan 25 mg tablet 1 tab PO DAILY tab 06/18/19 01/28/20 metoprolol succinate 25 mg 1 tab PO DAILY tab 06/18/19 01/28/20 tablet,extended release 24 hr Previous Rx's Medication Instructions Recorded trazodone 100 mg tablet 100 mg PO HS #30 tab 03/07/19 gabapentin 600 mg tablet 600 mg PO TID #90 tab 01/28/20 hydrocodone 5 mg-acetaminophen 325 1 tab PO TID #90 tab 01/28/20 mg tablet omeprazole 40 mg capsule,delayed 40 mg PO DAILY #90 cap 01/28/20 release atorvastatin 40 mg tablet See Rx Instructions .ROUTE 01/29/20 .COMPLEX #90 tab furosemide 40 mg tablet See Rx Instructions .ROUTE 01/29/20 .COMPLEX #90 tab potassiu
[2020-03-27 17:07] VITALS: BP 139/73; PULSE 82; RESP 19; TEMP 36.9; O2SAT 96
[2020-03-29 17:03] LABS: Covid-19 Nasal PCR Sendout UK Not Detected
== END 2020-03-27 17:10 | disposition home or self-care (01) ==
PROVIDERS: Emergency Provider Nurse Practitioner Family; PCP Emergency Medicine
DX: J44.1 Chronic obstructive pulmonary disease with (acute) exacerbation (principal); Z03.818 Encounter for observation for suspected exposure to other biological agents ruled out; B34.9 Viral infection, unspecified; I25.10 Atherosclerotic heart disease of native coronary artery without angina pectoris; F41.9 Anxiety disorder, unspecified; K21.9 Gastro-esophageal reflux disease without esophagitis; E78.5 Hyperlipidemia, unspecified; I10 Essential (primary) hypertension; Z95.0 Presence of cardiac pacemaker; F17.210 Nicotine dependence, cigarettes, uncomplicated; Z90.49 Acquired absence of other specified parts of digestive tract; Z90.710 Acquired absence of both cervix and uterus; Z88.0 Allergy status to penicillin; Z88.2 Allergy status to sulfonamides
CPT/HCPCS: G0463; 87804; 87880; 99202; U0003

== ENCOUNTER 2020-04-02 11:36 | Day surgery (SDC) | payer MEDICARE, MEDICAID, SELFPAY ==
[2020-04-02 11:49] VITALS: BP 153/70; PULSE 70; RESP 18; TEMP 36.6; O2SAT 94; BMI 32.5
[2020-04-02 12:37] VITALS: BP 138/88; BP 140/78; PULSE 79; RESP 18; O2SAT 98
--- NOTE | 2020-04-02 12:39 | HMH.PMPROC ---
- Procedure Date: 04/02/20 Time: 12:39 Anesthesiologist:: Zachariah Hawkins MD Complications:: None Pre-procedure Diagnosis:: Bilateral knee pain with degenerative osteoarthritis both knees Post-procedure Diagnosis:: Same Indications for Procedure:: Patient is a pleasant 64-year-old white female who we are treating for bilateral knee pain. She has had degenerative osteoarthritis of both knees. We will do bilateral intra-articular knee injections today to help her with her pain symptoms. Procedure Details:: Bilateral intra-articular knee injection Informed consent was obtained risk and benefits of the procedure were explained to the patient. Patient was taken to the procedure room. He was prepped using ChloraPrep. 25-gauge needle was used first medially then laterally to inject 10 mL bupivacaine 0.25% and Depo-Medrol 40 mg into each knee. We use a total of 80 mg Depo-Medrol for both knees. Patient tolerated the procedure well with no complications. Plan and Disposition:: We will follow-up with this patient in 2 weeks. Will reevaluate her symptoms at that time.
[2020-04-02 12:42] VITALS: BP 145/97; PULSE 72; RESP 20; O2SAT 94
== END 2020-04-02 12:43 | disposition home or self-care (01) ==
LOC: SC.PAINP 11:39
PROVIDERS: PCP Emergency Medicine; Visit Provider Anesthesiology
DX: M17.0 Bilateral primary osteoarthritis of knee (principal); I10 Essential (primary) hypertension; J44.9 Chronic obstructive pulmonary disease, unspecified; E78.5 Hyperlipidemia, unspecified; I25.10 Atherosclerotic heart disease of native coronary artery without angina pectoris; Z99.81 Dependence on supplemental oxygen; F41.9 Anxiety disorder, unspecified; F32.9 Major depressive disorder, single episode, unspecified; Z90.89 Acquired absence of other organs; Z87.39 Personal history of other diseases of the musculoskeletal system and connective tissue; Z72.0 Tobacco use; Z88.0 Allergy status to penicillin
CPT/HCPCS: 20610; J1030

== ENCOUNTER → 2020-04-06 14:08 | Outpatient (CLI) | payer MEDICARE, MEDICAID, SELFPAY ==
[2020-04-06 15:00] VITALS: PULSE 71; PULSE 74
== END ==
PROVIDERS: PCP Emergency Medicine; Visit Provider Nurse Practitioner Family
DX: R06.02 Shortness of breath (principal)
CPT/HCPCS: 94060; 94618; 94640; 94727; 94729

== ENCOUNTER → 2020-04-29 13:38 | Outpatient (POV) | payer MEDICARE, MEDICAID, SELFPAY ==
[2020-04-29 13:55] VITALS: BP 141/74; PULSE 82; RESP 18; O2SAT 98; BMI 32.5
--- NOTE | 2020-04-29 14:05 | HMH.PAINSOAP ---
[facility] Pain Management SOAP Note Subjective:: Patient is a 64-year-old white female who presents today for follow-up. She has been treated for chronic low back pain with lumbar radiculopathy symptoms, as well as bilateral knee pain with degenerative osteoarthritis bilateral knees. She recently underwent bilateral knee injections. Patient did get 90% relief to her bilateral knees after the injections. Patient is here today for complaints of mid to low back pain. She says it is radiating into her left leg causing her to have numbness and tingling. Patient has undergone lumbar epidural steroid injections in the past for which she does get 80% relief for up to 3 to 4 weeks. Patient would like to undergo a repeat injection. She is not on any anticoagulation therapy. She does use ice and heat therapies and continues with a home stretching program. She rates her pain a 9 out of 10 today. Review of Systems General: No recent weight changes, no fever, no sleep disturbances Respiratory: No cough, no shortness of air, no recurring pulmonary infections Cardiovascular/peripheral vascular: No chest pain, no palpitations, no edema, no shortness of breath Gastrointestinal: No new onset incontinence, normal bowel movements reported Genitourinary: No new onset incontinence Musculoskeletal: Low back pain, left leg pain with numbness and tingling Psychiatric: Normal mood/affect Neurological: [Denies weakness in extremities], [denies balance issues] Objective:: Physical exam General: Alert and oriented x3, no acute distress, pleasant and cooperative, [on room air] Lungs: Respirations even and unlabored, symmetrical chest expansion Eyes: PERRL Musculoskeletal: Flexion and extension of lumbar spine somewhat guarded secondary to pain, deep tendon reflexes normal, strength in upper and lower extremities [5/5], [abnormal gait noted] Neurological: Speech clear, machine bunch maker equal, no gross sensory deficit Assessment:: Degenerative disc disease lumbar spine with lumbar radiculopathy symptoms Plan:: We will schedule the patient for a lumbar epidural steroid injection. We will see her back in the clinic after her injection to reassess her symptoms. Patient is not on any anticoagulation therapy. She has been instructed to contact the clinic if she has any concerns before her next appointment. The patient and I specifically discussed risk factors for COVID19. These risks include, but are not limited to age greater than 60, heart or lung disease, diabetes, immunosuppression, and travel. We also discussed NSAIDs may worsen COVID19 infection or symptoms. Patient should not use NSAIDs to treat COVID19 signs or symptoms. Patient was also informed that any type of corticosteroid of any form (oral or injection) will decrease the patient's immune system response and may increase the likelihood of COVID19 infection [address] symptoms[address]. Hawkins has reviewed this note and agrees with this plan of care. This note was dictated using voice recognition software and make contain errors or omissions. [facility] History I have reviewed the patient's past medical history: Yes Medical History: Reports:: Anxiety, Atherosclerotic Heart Disease, Congestive Heart Failure, Chronic Obstructive Pulmonary Disease (COPD), Congenital Heart Disease, Coronary Artery Disease, Gastroesophageal Reflux Disease(GERD), Gastrointestinal Bleed, Home Oxygen, Hyperlipidemia, Hypertension, Internal Pacemaker, Lung Disease, Renal Disease Denies:: Cancer, Diabetes Mellitus Type 1, Diabetes Mellitus Type 2, MRSA, Seizures *Have you ever received a pneumonia vaccine?: Yes *Have you received a flu vaccine this season?: Yes Other Medical History: Reports: Arthritis, Cataracts, Thyroid Disease Laterality Cases: Right: Arthroscopy Knee, Bilateral: Tonsillectomy Other Surgeries: Yes: No Previous Surgery, Cardiac Catheterization, Cardiac Surgery, Cholecystectomy, Colonoscopy, EGD, Hysterectomy-Total, Pacemaker, Thyroidec
== END ==
PROVIDERS: PCP Emergency Medicine; Visit Provider Clinical Nurse Specialist Family Health
DX: M51.16 Intervertebral disc disorders with radiculopathy, lumbar region (principal)
CPT/HCPCS: 99212

== ENCOUNTER 2020-05-14 11:07 | Day surgery (SDC) | payer MEDICARE, MEDICAID, SELFPAY ==
[2020-05-14 11:19] VITALS: BP 169/91; PULSE 74; RESP 18; TEMP 36.7; O2SAT 95; BMI 31.0
--- NOTE | 2020-05-14 11:34 | HMH.PMPROC ---
- Procedure Date: 05/14/20 Time: 11:34 Anesthesiologist:: Zachariah Hawkins MD Complications:: None Pre-procedure Diagnosis:: Degenerative disc disease lumbar spine with lumbar radiculopathy symptoms Post-procedure Diagnosis:: Same Indications for Procedure:: This patient is a pleasant 64-year-old white female who we are treating for low back pain with lumbar radiculopathy symptoms as well as bilateral knee pain. She does have some increasing pain in her low back rating to her left leg. She has done well with previous epidural steroid injections. We will do repeat lumbar pleural steroid injection today. Procedure Details:: Lumbar epidural steroid injection under fluoroscopy Informed consent was obtained and the risk and benefits of the procedure was explained to the patient. The patient was taken to the procedure room. The patient was placed prone on the procedure table. The patient was prepped and draped in sterile fashion. C-arm fluoroscopy was used to view the lumbar spine. Skin and subcutaneous tissues were anesthetized using lidocaine. I placed an 18-gauge epidural needle and advanced into the L4-L5 interspace using fluoroscopic guidance and [id number] to air. After confirmation of needle placement in the epidural space with dye I injected 2 mL of lidocaine 1.5% with Depo-Medrol 80 mg. Patient tolerated the procedure well with no complications. Plan and Disposition:: We will follow-up with her in 2 weeks. Will reevaluate her symptoms at that time.
[2020-05-14 11:35] VITALS: BP 140/77; BP 142/78; PULSE 79; PULSE 85; RESP 18; O2SAT 98
[2020-05-14 11:50] VITALS: BP 163/92; PULSE 69; RESP 20; O2SAT 95
== END 2020-05-14 11:50 | disposition home or self-care (01) ==
LOC: SC.PAINP 11:09
PROVIDERS: PCP Emergency Medicine; Visit Provider Anesthesiology
DX: M51.16 Intervertebral disc disorders with radiculopathy, lumbar region (principal); I10 Essential (primary) hypertension; K21.9 Gastro-esophageal reflux disease without esophagitis; E07.9 Disorder of thyroid, unspecified; N05.9 Unspecified nephritic syndrome with unspecified morphologic changes; F41.9 Anxiety disorder, unspecified; E78.5 Hyperlipidemia, unspecified; J44.9 Chronic obstructive pulmonary disease, unspecified; Z72.0 Tobacco use; Z88.0 Allergy status to penicillin; Z88.2 Allergy status to sulfonamides; Z99.81 Dependence on supplemental oxygen
CPT/HCPCS: 62323; J1040; Q9966

== ENCOUNTER → 2020-06-21 10:53 | Outpatient (POV) | payer MEDICARE, MEDICAID, SELFPAY ==
[2020-06-21 11:08] VITALS: BP 145/78; PULSE 78; RESP 18; TEMP 36.8; O2SAT 98; BMI 31.6
--- NOTE | 2020-06-21 11:56 | HMH.PAINSOAP ---
[facility] Pain Management SOAP Note Subjective:: Patient is a pleasant 65-year-old white female who presents today for follow-up after lumbar epidural steroid injection. Patient got 80% relief of her symptomology. Overall doing well. Patient states that her pain is beginning to return and would like to repeat this in June. She rates her pain a 7 out of 10. She is not on any anticoagulation therapy. ROS General: no recent weight change, no fever, no sleep disturbances Respiratory: no cough, no shortness of air, no recurring pulmonary infections Cardiovascular/Peripheral Vascular: No chest pain, No palpitations, no edema, no shortness of breath. Gastrointestinal: no new onset incontinence, normal bowel movements reported Genitourinary: no new onset incontinence Musculoskeletal: Back pain, leg pain Psychiatric: normal mood/ affect Neurological: [denies new onset weakness in extremities], [denies new onset balance issues] Objective:: Physical Exam General: Alert and oriented x3, no acute distress, pleasant and cooperative, [on room air] Lungs: Resps E/U, Symmetrical chest expansion, Eyes: PERRL Musculoskeletal: Flexion and extension of lumbar spine somewhat guarded secondary to pain, deep tendon reflexes normal, strength in upper and lower extremities [5/5], [abnormal gait noted] Neurological: speech clear, 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 She has been instructed to call the office if she has any issues prior to her next appointment. Dr. Hawkins has reviewed this note and agrees with this plan of care. This note was dictated using voice recognition software and may contain errors or omissions [facility] History I have reviewed the patient's past medical history: Yes Medical History: Reports:: Anxiety, Atherosclerotic Heart Disease, Congestive Heart Failure, Chronic Obstructive Pulmonary Disease (COPD), Congenital Heart Disease, Coronary Artery Disease, Gastroesophageal Reflux Disease(GERD), Gastrointestinal Bleed, Home Oxygen, Hyperlipidemia, Hypertension, Internal Pacemaker, Lung Disease, Renal Disease Denies:: Cancer, Diabetes Mellitus Type 1, Diabetes Mellitus Type 2, MRSA, Seizures *Have you ever received a pneumonia vaccine?: Yes *Have you received a flu vaccine this season?: Yes Other Medical History: Reports: Arthritis, Cataracts, Thyroid Disease Laterality Cases: Right: Arthroscopy Knee, Bilateral: Tonsillectomy Other Surgeries: Yes: No Previous Surgery, Cardiac Catheterization, Cardiac Surgery, Cholecystectomy, Colonoscopy, EGD, Hysterectomy-Total, Pacemaker, Thyroidectomy, Other (wrist surgery) Amputation: No Fractures: No - *Social History Smoking Status: Current every day smoker Tobacco Type: cigarettes # Packs/Day (cigarettes): 1 #Yrs smoked (if former smoker): 30 Alcohol Intake: never Alcohol Intake Frequency:: other Substance Use Type: denies use *Occupational Status:: other Housing: apartment Household Members: none *Travel in the last 8 weeks: None - Psychiatric History Pschychiatric History:: Reports:: Anxiety Family Hx:: Asthma, Cancer, Coronary Artery Disease, Diabetes, Heart Attack, Hyperlipidemia, Hypertension, Tuberculosis, Mental illness
== END ==
PROVIDERS: PCP Emergency Medicine; Visit Provider Clinical Nurse Specialist Family Health
DX: M51.16 Intervertebral disc disorders with radiculopathy, lumbar region (principal)
CPT/HCPCS: 99212

== ENCOUNTER 2020-07-16 10:45 | Day surgery (SDC) | payer MEDICARE, MEDICAID, SELFPAY ==
[2020-07-16 10:48] VITALS: BP 130/77; BP 131/85; PULSE 69; RESP 18; TEMP 36.6; O2SAT 98; BMI 31.6
[2020-07-16 11:39] VITALS: BP 132/85; BP 140/74; PULSE 85; PULSE 88; RESP 18; O2SAT 98
--- NOTE | 2020-07-16 12:51 | P.PCN_ITS ---
- Procedure Date: 07/16/20 Time: 12:51 Anesthesiologist:: Zachariah Hawkins MD Complications:: None Pre-procedure Diagnosis:: Degenerative disc disease of lumbar spine with lumbar radiculopathy symptoms Post-procedure Diagnosis:: Same Indications for Procedure:: Patient is a pleasant 65-year-old white female who we are treating for low back pain with lumbar radiculopathy symptoms. She did well after last lumbar epidural steroid injection. She was 80 to 90% better. She still has some residual pain in her back and down her legs. We will do repeat lumbar epidural steroid injection under fluoroscopy today. Procedure Details:: Lumbar epidural steroid injection under fluoroscopy Informed consent was obtained and the risk and benefits of the procedure was exp lained to the patient. The patient was taken to the procedure room. The patient was placed prone on the procedure table. The patient was prepped and draped in sterile fashion. C-arm fluoroscopy was used to view the lumbar spine. Skin and subcutaneous tissues were anesthetized using lidocaine. I placed an 18-gauge epidural needle and advanced into the L4-L5 interspace using fluoroscopic guidance and [id number] to air. After confirmation of needle placement in the epidural space with dye I injected 2 mL of lidocaine 1.5% with Depo-Medrol 80 mg. Patient tolerated the procedure well with no complications. Plan and Disposition:: We will follow-up with her in 2 weeks. Will reevaluate symptoms at that time.
== END 2020-07-16 12:00 | disposition home or self-care (01) ==
LOC: SC.PAINP 10:46
PROVIDERS: PCP Emergency Medicine; Visit Provider Anesthesiology
DX: M51.16 Intervertebral disc disorders with radiculopathy, lumbar region (principal); I10 Essential (primary) hypertension; E78.5 Hyperlipidemia, unspecified; K21.9 Gastro-esophageal reflux disease without esophagitis; Z88.0 Allergy status to penicillin; Z88.2 Allergy status to sulfonamides; Z99.81 Dependence on supplemental oxygen; Z95.0 Presence of cardiac pacemaker; J44.9 Chronic obstructive pulmonary disease, unspecified; Z72.0 Tobacco use; E07.9 Disorder of thyroid, unspecified; F41.9 Anxiety disorder, unspecified
CPT/HCPCS: 62323; J1040; Q9966

== ENCOUNTER → 2020-07-20 17:31 | Outpatient (CLI) | payer MEDICARE, MEDICAID, SELFPAY ==
[2020-07-20 18:28] LABS: Basophils # 0.1 K/mm3 (0-0.2); Basophils % 0.6 % (0.1-2.0); Eosinophils # 0.2 K/mm3 (0.0-0.4); Eosinophils % 1.3 % (0.1-12.0); Hematocrit 47.2 % (37.0-47.0); Hemoglobin 14.7 g/dL (12.2-16.2); Lymphocytes # 2.4 K/mm3 (0.7-4.5); Lymphocytes % 19.2 % (10-50); Mean Corpuscular HGB Conc 31.1 g/dL (31.8-35.4); Mean Corpuscular Hemoglobin 29.1 pg (27.0-31.2); Mean Corpuscular Volume 93.8 fl (81-99); Mean Platelet Volume 10.4 fl (7.4-10.4); Monocytes # 0.7 K/mm3 (0.1-1.0); Neutrophils # 8.9 K/mm3 (1.8-7.8); Platelet Count 192 K/mm3 (142-424); Red Blood Count 5.03 M/mm3 (4.20-5.40); Red Cell Distribution Width 14.5 % (11.5-17.5); White Blood Count 12.2 K/mm3 (4.8-10.8)
[2020-07-20 18:41] LABS: Alanine Aminotransferase 29 U/L (12-78); Albumin/Globulin Ratio 1.5 (1.1-1.8); Alkaline Phosphatase 200 U/L (38-126); Anion Gap 14.5 mEq/L (5-15); Aspartate Amino Transferase 27 U/L (14-36); Bilirubin,Total 0.3 mg/dl (0.2-1.3); Blood Urea Nitrogen 21 mg/dl (7-17); Calcium 9.7 mg/dl (8.4-10.2); Carbon Dioxide 23 mmol/L (22.0-30.0); Chloride 104 mmol/L (98-107); Chol/HDL Ratio 3.1 (1-3.5); Cholesterol 157 mg/dl (140-200); Estimated Glomerular Filt Rate 62 ml/min (>60); GFR (African American) 76 ML/MIN (>60); Globulin 2.6 g/dL (1.3-3.2); Glucose 353 mg/dl (74-100); HDL Cholesterol 50 mg/dl (40-60); Potassium 4.5 mmoL/L (3.5-5.1); Sodium 137 mmol/L (136-145); Total Protein,Serum 6.6 g/dl (6.3-8.2); Triglycerides 106 mg/dl (30-150); VLDL Cholesterol 21 mg/dL (0-40)
[2020-07-20 18:52] LABS: Direct LDL Cholesterol 95.48 mg/dL (100-129)
[2020-07-20 19:01] LABS: T4 (Thyroxine) 10.5 ug/dl (5.53-11.0)
[2020-07-20 19:02] LABS: 25-OH Vitamin D, Total 35.1 ng/mL (30-100)
[2020-07-20 19:14] LABS: Thyroid Stimulating Hormone 2.87 uIU/mL (0.465-4.68)
[2020-07-21 14:12] LABS: Hemoglobin A1C 8.2 % (4.0-6.0)
== END ==
PROVIDERS: Visit Provider Emergency Medicine
DX: E55.9 Vitamin D deficiency, unspecified (principal); E66.9 Obesity, unspecified; I25.10 Atherosclerotic heart disease of native coronary artery without angina pectoris; J44.9 Chronic obstructive pulmonary disease, unspecified; R53.83 Other fatigue; F32.9 Major depressive disorder, single episode, unspecified; R73.9 Hyperglycemia, unspecified
CPT/HCPCS: 80053; 80061; 82306; 83036; 84436; 84443; 85025

== ENCOUNTER → 2020-09-20 19:51 | Outpatient (CLI) | payer MEDICARE, MEDICAID, SELFPAY ==
[2020-09-20 21:06] LABS: Amphetamine/Metha Screen,Urine Negative ng/ml (<1000)
[2020-09-20 21:07] LABS: Barbiturates Screen,Urine Negative ng/ml (<200); Benzodiazepines Screen,Urine Negative ng/ml (<200)
[2020-09-20 21:08] LABS: Cannabinoid Screen,Urine Negative ng/ml (<50)
[2020-09-20 21:09] LABS: Methadone Screen,Urine Negative ng/ml (<300)
[2020-09-20 21:10] LABS: Opiate Screen,Urine Positive ng/ml (<300); Phencyclidine Screen,Urine Negative ng/ml (<25)
[2020-09-20 21:31] LABS: Cocaine Screen,Urine Negative ng/ml (<300)
[2020-09-20 21:34] LABS: Creatinine,Urine Random 232 mg/dL (Not Estab.)
== END ==
PROVIDERS: Visit Provider Emergency Medicine
DX: Z79.899 Other long term (current) drug therapy (principal); E11.9 Type 2 diabetes mellitus without complications; Z79.84 Long term (current) use of oral hypoglycemic drugs
CPT/HCPCS: 80305; 82043; 82570

== ENCOUNTER → 2020-10-18 17:53 | Outpatient (CLI) | payer MEDICARE, MEDICAID, SELFPAY ==
[2020-10-18 19:59] LABS: Amphetamine/Metha Screen,Urine Negative ng/ml (<1000)
[2020-10-18 20:00] LABS: Barbiturates Screen,Urine Negative ng/ml (<200); Benzodiazepines Screen,Urine Negative ng/ml (<200)
[2020-10-18 20:01] LABS: Cannabinoid Screen,Urine Negative ng/ml (<50)
[2020-10-18 20:02] LABS: Methadone Screen,Urine Negative ng/ml (<300); Opiate Screen,Urine Positive ng/ml (<300)
[2020-10-18 20:03] LABS: Cocaine Screen,Urine Negative ng/ml (<300)
[2020-10-18 20:04] LABS: Phencyclidine Screen,Urine Negative ng/ml (<25)
== END ==
PROVIDERS: Visit Provider Emergency Medicine
DX: Z79.899 Other long term (current) drug therapy (principal)
CPT/HCPCS: 80305

== ENCOUNTER → 2020-10-26 11:36 | Outpatient (CLI) | payer MEDICARE, MEDICAID, SELFPAY ==
[2020-10-26 11:45] LABS: Microscopic, Urine URINE MICROSCOPIC (MICROSCOPIC)
[2020-10-26 12:17] LABS: Basophils # 0.1 K/mm3 (0-0.2); Eosinophils # 0.3 K/mm3 (0.0-0.4); Eosinophils % 2.9 % (0.1-12.0); Hematocrit 48.3 % (37.0-47.0); Hemoglobin 15.3 g/dL (12.2-16.2); Lymphocytes % 23.1 % (10-50); Mean Corpuscular HGB Conc 31.8 g/dL (31.8-35.4); Mean Corpuscular Hemoglobin 28.3 pg (27.0-31.2); Mean Platelet Volume 8.6 fl (7.4-10.4); Monocytes # 0.4 K/mm3 (0.1-1.0); Monocytes % 4.8 % (1.7-9.3); Neutrophils % 68.3 % (37.0-80.0); Platelet Count 217 K/mm3 (142-424); Red Blood Count 5.42 M/mm3 (4.20-5.40); Red Cell Distribution Width 13.8 % (11.5-17.5); White Blood Count 8.8 K/mm3 (4.8-10.8)
[2020-10-26 12:32] LABS: Appearance,Urine CLEAR (Clear); Bilirubin,Urine Negative (Negative); Blood, Urine Negative (Negative); Color,Urine YELLOW (Yellow); Glucose,Urine (UA) Negative (Negative); Ketones,Urine Negative (Negative); Leukocyte Esterase,Urine Negative (Negative); Nitrate,Urine Negative (Negative); PH,Urine 6.5 (5.0-8.5); Protein,Urine Negative (Negative); Urobilinogen,Urine 0.2 EU/dl (0.2)
[2020-10-26 12:39] LABS: Albumin Level 4.4 g/dl (3.5-5.0); Anion Gap 12.5 mEq/L (5-15); Blood Urea Nitrogen 13 mg/dl (7-17); Calcium 9.8 mg/dl (8.4-10.2); Carbon Dioxide 26 mmol/L (22.0-30.0); Chloride 105 mmol/L (98-107); Estimated Glomerular Filt Rate 62 ml/min (>60); GFR (African American) 76 ML/MIN (>60); Glucose 128 mg/dl (74-100); Phosphorous 3.5 mg/dl (2.5-4.5); Potassium 4.5 mmoL/L (3.5-5.1); Sodium 139 mmol/L (136-145)
[2020-10-26 12:51] LABS: Intact Parathyroid Hormone 84.5 pg/mL (7.5-53.5)
[2020-10-26 12:56] LABS: 25-OH Vitamin D, Total 30.5 ng/mL (30-100)
[2020-10-26 12:57] LABS: Creatinine,Urine Random 154 mg/dL (Not Estab.)
== END ==
PROVIDERS: Visit Provider Internal Medicine Nephrology
DX: R80.9 Proteinuria, unspecified (principal); Z68.34 Body mass index [BMI] 34.0-34.9, adult
CPT/HCPCS: 36415; 80069; 81001; 82306; 82570; 83970; 84155; 85025

== ENCOUNTER → 2020-11-08 15:20 | Outpatient (POV) | payer MEDICARE, MEDICAID, SELFPAY | PROVIDERS: Visit Provider Internal Medicine Nephrology | DX: Z00.00 Encounter for general adult medical examination without abnormal findings (principal) ==

== ENCOUNTER 2021-01-18 14:26 | Emergency (ER) | payer MEDICARE, MEDICAID, SELFPAY ==
[2021-01-18 14:27] VITALS: BP 132/80; PULSE 72; RESP 20; TEMP 36.9; O2SAT 97; BMI 32.8
[2021-01-18 16:00] VITALS: BP 132/72; PULSE 70; O2SAT 95
--- NOTE | 2021-01-18 16:20 | HMH.EDGENADL ---
ED Disposition Clinical Impression: Acute exacerbation of chronic low back pain Disposition: Home, Self-Care Condition on Discharge: Good Additional Instructions: Continue hydrocodone for pain. See your primary care provider in the office tomorrow. Additional instructions for BACK PAIN: See your physician as soon as possible for further evaluation. Return immediately if back pain becomes intolerable, or if fever, numbness or weakness of your legs, loss of control of your bowels or bladder. Referrals: Ilir Jeffers MD [Primary Care Provider] - - Critical Care Critical Care Time: No Attestation: On 01/18/21, the high probability of a clinically significant, sudden or life threatening deterioration of the following system(s) required my full and direct attention, intervention and personal management. The time I documented below is in addition to time spent performing reported procedures but includes the following listed in this critical care notation. Medical Decision Making - Anibal Inquiry Pt receiving controlled substance: Yes Anibal was queried for this patient: Yes Risks and benefits of using a controlled substance: were discussed with pt by me Vital Signs: 01/18/21 14:27 01/18/21 16:00 Temperature 98.5 F Temperature Source Oral Pulse Rate 70 Pulse Rate [Left Radial] 72 Respiratory Rate 20 Blood Pressure 132/72 Blood Pressure [Right Arm] 132/80 Blood Pressure Mean 92 Blood Pressure Mean [Right Arm] 97 Blood Pressure Source [Right Arm] Automatic Cuff Blood Pressure Position [Right Arm] Sitting 02 Sat by Pulse Oximetry 97 95 Oxygen Delivery Method Room Air General Adult HPI - General Chief complaint: PAIN Stated complaint: back pain, no accident Time Seen by Provider: 01/18/21 16:20 Mode of Arrival: Ambulatory Limitations: No Limitations Description of Symptoms (Recalled from ER Triage Doc. by RN): c/o lower back pain that started Sunday, states that she was up cleaning and she has been hurting since. Denies any injuries - History of Present Illness HPI narrative: Complains of exacerbation of chronic back pain. States that she is cleaning her house to get ready for inspection and mostly twisted the wrong way. She has had increasing chronic low back pain since Sunday. Pain radiates into her left buttock and left thigh. Denies numbness or weakness of the extremities. No numbness of the groin. No urinary incontinence, but says that when she needs to go sometimes she cannot make it all the way to the bathroom. No bowel incontinence. She is on chronic pain medication, hydrocodone 10 mg. She is also on muscle relaxers. She occasionally sees Dr. Hawkins for pain management and gets epidural injections. No recent epidural injection. - Related Data Home Medications Medication Instructions Recorded Confirmed Ipratropium/Albuterol Sulfate 3 ml IH BID 04/22/19 12/13/20 [Duoneb 3mL neb] losartan 25 mg tablet 1 tab PO DAILY tab 06/18/19 12/13/20 Previous Rx's Medication Instructions Recorded omeprazole 40 mg capsule,delayed 40 mg PO DAILY #90 cap 01/28/20 release Ondansetron [Zofran 4mg ODT] 4 mg PO Q8HP PRN #10 tab.rapdis 03/27/20 albuterol sulfate 90 mcg/actuation 2 inh INHALATION Q4HP PRN #6.7 g 03/29/20 aerosol inhaler blood-glucose meter See Rx Instructions .ROUTE 07/26/20 .MEDSUPPLY #1 each magnesium oxide 400 mg PO TID #90 cap 08/25/20 clotrimazole 1 % topical cream See Rx Instructions .ROUTE 10/07/20 .COMPLEX #30 g nystatin 100,000 unit/gram topical 1 applic TOPICAL TID #30 g 10/07/20 cream dextromethorphan HBr 15 mg capsule 15 mg PO Q8H PRN #90 cap 10/12/20 metformin 500 mg tablet 500 mg PO BID 90 Days #180 tab 10/12/20 fluticasone fur. 100 mcg-umeclid See Rx Instructions .ROUTE 10/20/20 62.5 mcg-vilant 25 mcg .COMPLEX #60 blister inhalat.powder atorvastatin 40 mg tablet See Rx Instructions .ROUTE 11/02/20 .COMPLEX #90 tab furose
[2021-01-18 17:25] VITALS: BP 160/80; PULSE 79; RESP 20; TEMP 36.9; O2SAT 94
== END 2021-01-18 17:26 | disposition home or self-care (01) ==
PROVIDERS: Emergency Provider Emergency Medicine; PCP Emergency Medicine
DX: M54.5 Low back pain (principal); J44.9 Chronic obstructive pulmonary disease, unspecified; K21.9 Gastro-esophageal reflux disease without esophagitis; I25.10 Atherosclerotic heart disease of native coronary artery without angina pectoris; I10 Essential (primary) hypertension; E78.5 Hyperlipidemia, unspecified; F17.210 Nicotine dependence, cigarettes, uncomplicated; Z88.0 Allergy status to penicillin; Z88.2 Allergy status to sulfonamides; Z79.899 Other long term (current) drug therapy
CPT/HCPCS: 96372; 99281; J2405

== ENCOUNTER → 2021-02-07 17:40 | Outpatient (CLI) | payer MEDICARE, MEDICAID, SELFPAY ==
[2021-02-07 19:14] LABS: Amphetamine/Metha Screen,Urine Negative ng/ml (<1000); Barbiturates Screen,Urine Negative ng/ml (<200)
[2021-02-07 19:15] LABS: Benzodiazepines Screen,Urine Negative ng/ml (<200)
[2021-02-07 19:16] LABS: Cannabinoid Screen,Urine Negative ng/ml (<50); Cocaine Screen,Urine Negative ng/ml (<300)
[2021-02-07 19:17] LABS: Methadone Screen,Urine Negative ng/ml (<300)
[2021-02-07 19:18] LABS: Opiate Screen,Urine Positive ng/ml (<300); Phencyclidine Screen,Urine Negative ng/ml (<25)
== END ==
PROVIDERS: Visit Provider Emergency Medicine
DX: G89.29 Other chronic pain (principal); M54.5 Low back pain
CPT/HCPCS: 80305

== ENCOUNTER → 2021-02-17 13:13 | Outpatient (POV) | payer MEDICARE, MEDICAID, SELFPAY ==
[2021-02-17 13:21] VITALS: BP 163/80; PULSE 72; RESP 18; O2SAT 95; BMI 34.2
--- NOTE | 2021-02-17 15:15 | HMH.PAINSOAP ---
[facility] Pain Management SOAP Note Subjective:: Patient is a pleasant 65-year-old white female who presents today for follow-up. Patient underwent a lumbar epidural steroid injection on 07/16/2020. She did get excellent relief until recently. Her pain has returned. It is in her low back and bilateral lower extremities, worse to the left leg. She is also having pain and numbness in her bilateral feet. She rates her pain an 8 out of 10. She has had an injection in the past for which she got 80 to 90% relief. Her pain returned over the last month. She has tried and failed conservative therapies of physical therapy for greater than 6 weeks along with continued home stretching and anti-inflammatories. She does get [place] by Dr. Jeffers. She also takes gabapentin per Dr. Jeffers. Review of Systems General: No recent weight changes, no fever, no sleep disturbances Respiratory: No cough, no shortness of air, no recurring pulmonary infections Cardiovascular/peripheral vascular: No chest pain, no palpitations, no edema, no shortness of breath Gastrointestinal: No new onset incontinence, normal bowel movements reported Genitourinary: No new onset incontinence Musculoskeletal: Low back pain with radiation into bilateral lower extremities Psychiatric: Normal mood/affect Neurological: [Denies weakness in extremities], [denies balance issues] Objective:: Physical exam General: Alert and oriented x3, no acute distress, pleasant and cooperative, [on room air] Lungs: Respirations even and unlabored, symmetrical chest expansion Eyes: PERRL Musculoskeletal: Flexion and extension of [] lumbar spine somewhat guarded secondary to pain, deep tendon reflexes normal, strength in upper and lower extremities [5/5], [abnormal gait noted] Neurological: Speech clear, field 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 She is not on any anticoagulation therapy. We will plan to see her back after the injection for reevaluation of symptoms. She has been instructed to contact clinic if she has any concerns before next appointment. Risks and benefits of the procedure have been explained to the patient. Patient would like to proceed with the procedure. Patient has been instructed to contact the clinic with any concerns before the next appointment. Dr. Hawkins has reviewed this note and agrees with this plan of care. This note was dictated using voice recognition software and make contain errors or omissions. [facility] History I have reviewed the patient's past medical history: Yes Medical History: Reports:: Anxiety, Atherosclerotic Heart Disease, Congestive Heart Failure, Chronic Obstructive Pulmonary Disease (COPD), Congenital Heart Disease, Coronary Artery Disease, Gastroesophageal Reflux Disease(GERD), Gastrointestinal Bleed, Home Oxygen, Hyperlipidemia, Hypertension, Internal Pacemaker, Lung Disease, Renal Disease Denies:: Cancer, Diabetes Mellitus Type 1, Diabetes Mellitus Type 2, MRSA, Seizures *Have you ever received a pneumonia vaccine?: No *Have you received a flu vaccine this season?: Yes Other Medical History: Reports: Arthritis, Cataracts, Thyroid Disease Laterality Cases: Right: Arthroscopy Knee, Bilateral: Tonsillectomy Other Surgeries: Yes: No Previous Surgery, Cardiac Catheterization, Cardiac Surgery, Cholecystectomy, Colonoscopy, EGD, Hysterectomy-Total, Pacemaker, Thyroidectomy, Other (wrist surgery) Amputation: No Fractures: No - *Social History Smoking Status: Current some day smoker Tobacco Type: cigarettes # Packs/Day (cigarettes): 1 #Yrs smoked (if former smoker): 30 Alcohol Intake: never Alcohol Intake Frequency:: other Substance Use Type: denies use *Occupational Status:: unemployed Housing: house Household Members: none *Travel in the last 8 weeks: None - Psychiatric
== END ==
PROVIDERS: PCP Emergency Medicine; Visit Provider Clinical Nurse Specialist Family Health
DX: M51.16 Intervertebral disc disorders with radiculopathy, lumbar region (principal)
CPT/HCPCS: 99212; G0463

== ENCOUNTER 2021-02-25 12:51 | Day surgery (SDC) | payer MEDICARE, MEDICAID, SELFPAY ==
[2021-02-25 12:59] VITALS: BP 144/58; PULSE 75; RESP 18; TEMP 36.4; O2SAT 98; BMI 34.2
[2021-02-25 13:20] VITALS: BP 152/79; PULSE 70; RESP 18; O2SAT 95
[2021-02-25 13:21] VITALS: BP 149/78; PULSE 71; RESP 18; O2SAT 96
[2021-02-25 13:50] VITALS: BP 146/74; PULSE 69; RESP 20; O2SAT 98
--- NOTE | 2021-02-25 13:54 | P.PCN_ITS ---
- Procedure Date: 02/25/21 Time: 13:54 Anesthesiologist:: Karen Coates MD Complications:: None Pre-procedure Diagnosis:: Degenerative disc disease of the lumbar spine, lumbar radiculopathy Post-procedure Diagnosis:: Same Indications for Procedure:: Patient is a very pleasant 65-year-old white female who presents today with chronic low back pain radiating to her legs related to the above diagnosis. Of note, she previously underwent a lumbar epidural steroid injection will last on 07/16/2020 and reports excellent relief, approximately 80 to 90%.. She states the pain has returned and is requesting repeat injections. She states the pain is in her low back and radiates down her legs and is worse on the left side compared to the right. She has trialed and failed conservative treatment including oral pain medications and home stretching program for greater than 6 weeks. The plan for today is for the patient to undergo repeat lumbar epidural steroid injection at L5-S1 under fluoroscopy. Procedure Details:: Informed consent was obtained and the risk and benefits of the procedure was explained to the patient. The patient was taken to the procedure room. The patient was placed prone on the procedure table. The patient was prepped and draped in sterile fashion. C-arm fluoroscopy was used to view the lumbar spine. Skin and subcutaneous tissues were anesthetized using lidocaine. I placed an 18-gauge epidural needle and advanced into the L5-S1 interspace using fluoroscopic guidance and [id number] to air and saline. After confirm ation of needle placement in the epidural space with dye I injected 1 mL of lidocaine 1.0% with Depo-Medrol 80 mg. Patient tolerated the procedure well with no complications. Plan and Disposition:: We will follow-up with this patient in 2 weeks. Will reevaluate pain symptoms at that time.
== END 2021-02-25 13:50 | disposition home or self-care (01) ==
LOC: SC.PAINP 12:52
PROVIDERS: PCP Emergency Medicine; Visit Provider Anesthesiology Pain Medicine
DX: M51.16 Intervertebral disc disorders with radiculopathy, lumbar region (principal); E78.5 Hyperlipidemia, unspecified; I11.0 Hypertensive heart disease with heart failure; I50.9 Heart failure, unspecified; E07.9 Disorder of thyroid, unspecified; J44.9 Chronic obstructive pulmonary disease, unspecified; K21.9 Gastro-esophageal reflux disease without esophagitis; F41.9 Anxiety disorder, unspecified; N28.9 Disorder of kidney and ureter, unspecified; M19.90 Unspecified osteoarthritis, unspecified site; Z95.0 Presence of cardiac pacemaker; Z88.0 Allergy status to penicillin
CPT/HCPCS: 62323; J1040; Q9966

== ENCOUNTER 2021-03-26 12:36 | Observation (INO) | payer MEDICARE, MEDICAID, SELFPAY ==
[2021-03-26] VITALS (10 sets, daily range): BP systolic 115–159; BP diastolic 54–89; PULSE 70–93; RESP 18–26; TEMP 36.8–37.2; O2SAT 92–96; BMI 33.7; BMI 33.5
--- NOTE | 2021-03-26 12:44 | ECG_ITS ---
APPROVED REPORT Exam: Resting ECG HR:91 bpm ECG Measurements Heart Rate 91 AXES NJ 134 P 79 QRSd 76 QRS -1 QT 364 T 74 QTc 447 Conclusion Sinus rhythm with fusion complexes Nonspecific ST abnormality Abnormal ECG Electronically signed by : Cristopher Ryder MD 03/27/2021 17:08:32
--- NOTE | 2021-03-26 12:52 | XR_ITS ---
PROCEDURE INFORMATION: Exam: XR Chest Exam date and time: 03/26/2021 12:52 PM Age: 65 years old Clinical indication: Shortness of breath; Additional info: SOB TECHNIQUE: Imaging protocol: XR of the chest. Views: 1 view. COMPARISON: CR XR CHEST 2V 08/13/2019 5:00 PM FINDINGS: Stable left chest wall pacemaker. Surgical clips throughout the thoracic inlet. Cardiac silhouette is stable. Aortic vascular calcifications. The lungs are hyperinflated. No airspace consolidation, pleural effusion or pneumothorax. IMPRESSION: No acute findings.
[2021-03-26 12:57] LABS: Coronavirus 19, PCR Not Detected (NotDetected); Influenza A, PCR Not Detected (NotDetected); Influenza B, PCR Not Detected (NotDetected)
[2021-03-26 13:35] LABS: Basophils # 0.1 K/mm3 (0-0.2); Basophils % 0.9 % (0.1-2.0); Eosinophils # 0.1 K/mm3 (0.0-0.4); Eosinophils % 0.8 % (0.1-12.0); Hematocrit 47.4 % (37.0-47.0); Hemoglobin 14.6 g/dL (12.2-16.2); Lymphocytes # 1.5 K/mm3 (0.7-4.5); Lymphocytes % 15.2 % (10-50); Mean Corpuscular HGB Conc 30.9 g/dL (31.8-35.4); Mean Corpuscular Hemoglobin 28.3 pg (27.0-31.2); Mean Corpuscular Volume 91.7 fl (81-99); Mean Platelet Volume 8.9 fl (7.4-10.4); Monocytes # 0.4 K/mm3 (0.1-1.0); Monocytes % 3.8 % (1.7-9.3); Neutrophils # 7.7 K/mm3 (1.8-7.8); Neutrophils % 79.2 % (37.0-80.0); Platelet Count 211 K/mm3 (142-424); Red Blood Count 5.17 M/mm3 (4.20-5.40); Red Cell Distribution Width 14.8 % (11.5-17.5); White Blood Count 9.8 K/mm3 (4.8-10.8)
--- NOTE | 2021-03-26 13:36 | HMH.EDSOB ---
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 The time I documented below is in addition to time spent performing reported procedures but includes the following listed in this critical care notation. Medical Decision Making - Medical Records Medical records reviewed: Yes: I reviewed the patient's medical records. - Anibal Inquiry Pt receiving controlled substance: No Vital Signs: 03/26/21 12:37 03/26/21 13:06 Temperature 98.4 F Temperature Source Oral Pulse Rate [Radial] 93 H Respiratory Rate 26 H Blood Pressure [Right Arm] 120/84 Blood Pressure Mean [Right Arm] 96 Blood Pressure Position [Right Arm] Sitting 02 Sat by Pulse Oximetry 95 96 Oxygen Delivery Method Room Air Room Air - Lab Data Lab results reviewed: Yes: I reviewed the patient's lab results. Lab Results 03/26/21 12:46: SARS-CoV-2 (PCR) Not detected, Influenza A Untype (PCR) Not detected, Influenza Type B (PCR) Not detected 03/26/21 13:20: WBC 9.8, RBC 5.17, Hgb 14.6, Hct 47.4 H, MCV 91.7, MCH 28.3, MCHC 30.9 L, RDW 14.8, Plt Count 211, MPV 8.9, Neut % (Auto) 79.2, Lymph % (Auto) 15.2, [place] % (Auto) 3.8, Eos % (Auto) 0.8, Baso % (Auto) 0.9, Neut # (Auto) 7.7, Lymph # (Auto) 1.5, [place] # (Auto) 0.4, Eos # (Auto) 0.1, Baso # (Auto) 0.1 03/26/21 13:20: Sodium 140, Potassium 4.1, Chloride 107, Carbon Dioxide 25, Anion Gap 12.1, BUN 13, Creatinine 0.80, Estimated Creat Clear 87, Estimated GFR 72, Est GFR ( Amer) 87, Glucose 153 H, Calcium 9.2, Total Bilirubin 0.3, AST 42 H, ALT 30, Alkaline Phosphatase 140 H, Troponin I < 0.01, Total Protein 6.7, Albumin 3.9, Globulin 2.8, Albumin/Globulin Ratio 1.4 03/26/21 13:20: Lactate 1.4 03/26/21 13:20: Procalcitonin 0.056 Result diagrams: 03/26/21 13:20 03/26/21 13:20 Orders (Tests/Meds): ED MEDICATIONS Generic Name Dose Route Start Last Admin Trade Name Freq PRN Reason Stop Dose Admin Ceftriaxone Sodium 1 gm/ 50 mls @ 100 mls/hr 03/26/21 14:30 Sodium Chloride IV 04/09/21 14:29 Q24H HAJA Azithromycin 500 mg/ Sodium 250 mls @ 250 mls/hr 03/26/21 14:30 Chloride IV 04/09/21 14:29 Q24H HAJA Discontinued Medications Generic Name Dose Route Start Last Admin Trade Name Freq PRN Reason Stop Dose Admin Methylprednisolone Sodium Succinate 125 mg 03/26/21 12:53 03/26/21 13:33 Methylprednisolone Sod Succ 125mg Vial IV 03/26/21 12:54 125 mg ONCE ONE Administration ORDERS Category Date Time Status Troponin I Q3H Lab 03/26/21 16:00 Ordered Troponin I Q3H Lab 03/26/21 19:00 Ordered Blood Culture Stat Micro 03/26/21 13:20 Received - Radiology Data #1 Image(s): Chest Image Reviewed: Yes I reviewed the patient's radiology image, Yes I have reviewed radiologist's interpretation Preliminary Findings: Normal/NAD - ECG Data Tracing #1 Normal Sinus Rhythm: Yes Ischemic changes: non-specific ST-T wave changes - BRIAN Score for Non-Stemi Age of Patient: 60-69 years old Heart Rate: 90-109 bpm Systolic Blood Pressure: 120-139 mmhg Serum Creatinine: 0.80-1.19 mg/dl CHF [place] Class: I-No CHF Other Risk Factors: None
[2021-03-26 13:44] LABS: Chloride 107 mmol/L (98-107); Sodium 140 mmol/L (136-145)
[2021-03-26 13:45] LABS: Potassium 4.1 mmoL/L (3.5-5.1)
[2021-03-26 13:47] LABS: Alanine Aminotransferase 30 U/L (12-78); Albumin Level 3.9 g/dl (3.5-5.0); Albumin/Globulin Ratio 1.4 (1.1-1.8); Alkaline Phosphatase 140 U/L (38-126); Anion Gap 12.1 mEq/L (5-15); Aspartate Amino Transferase 42 U/L (14-36); Bilirubin,Total 0.3 mg/dl (0.2-1.3); Blood Urea Nitrogen 13 mg/dl (7-17); Calcium 9.2 mg/dl (8.4-10.2); Carbon Dioxide 25 mmol/L (22.0-30.0); Creatinine Clearance Estimated 87 mL/min (50-200); Estimated Glomerular Filt Rate 72 ml/min (>60); GFR (African American) 87 ML/MIN (>60); Globulin 2.8 g/dL (1.3-3.2); Glucose 153 mg/dl (74-100); Total Protein,Serum 6.7 g/dl (6.3-8.2)
[2021-03-26 13:48] LABS: Lactic Acid 1.4 mmol/L (0.7-2.1)
[2021-03-26 14:04] LABS: Troponin I < 0.01 ng/ml (0.00-0.034)
[2021-03-26 14:05] LABS: Procalcitonin 0.056 ng/mL (0.0-2.0)
--- NOTE | 2021-03-26 14:56 | HMH.HP ---
*Admission Date: 03/26/21 *Chief complaint: sob *History of present illness: this patient presented to the ed with increasing sob over the last 2 days with hx of copd -pt has been compliant with meds - no def exposure to covid-19 does have chest pain -no syncope -pt admitted for treatment with ivf and meds [facility] History Medical History: Reports:: Anxiety, Atherosclerotic Heart Disease, Congestive Heart Failure, Chronic Obstructive Pulmonary Disease (COPD), Congenital Heart Disease, Coronary Artery Disease, Diabetes Mellitus Type 2, Gastroesophageal Reflux Disease(GERD), Gastrointestinal Bleed, Home Oxygen, Hyperlipidemia, Hypertension, Internal Pacemaker, Lung Disease, Peripheral Vascular Disease, Renal Disease Denies:: Cancer, Diabetes Mellitus Type 1, MRSA, Seizures *Have you ever received a pneumonia vaccine?: No *Have you received a flu vaccine this season?: No Other Medical History: Reports: Arthritis, Cataracts, Sinus Problems, Thyroid Disease. Denies: Blood Transfusion Reaction Laterality Cases: Right: Arthroscopy Knee, Bilateral: Tonsillectomy Other Surgeries: Yes: No Previous Surgery, Cardiac Catheterization, Cardiac Surgery, Cholecystectomy, Colonoscopy, EGD, Hysterectomy-Total, Pacemaker, Thyroidectomy, Other (wrist surgery) Amputation: No Fractures: No - *Social History Smoking Status: Current every day smoker Tobacco Type: cigarettes # Packs/Day (cigarettes): 1 #Yrs smoked (if former smoker): 30 Alcohol Intake: never Alcohol Intake Frequency:: other Substance Use Type: denies use *Occupational Status:: retired Housing: house Household Members: none *Travel in the last 8 weeks: None - Psychiatric History Pschychiatric History:: Reports:: Anxiety Family Hx:: Asthma, Cancer, Coronary Artery Disease, Diabetes, Heart Attack, Hyperlipidemia, Hypertension, Tuberculosis, Mental illness Review of Systems - Review of Systems Review of systems:: pertinent systems reviewed and negative unless documented below - Constitutional Denies fever(s) - Eyes Denies change in vision - ENT Denies sore throat - *Cardiovascular Reports shortness of breath, Denies chest pain at rest - *Respiratory Reports cough, Reports wheezing, Denies coughing up blood - *Gastrointestinal Denies abdominal pain - *Genitourinary Denies blood in urine - *Musculoskeletal Denies joint pain - Integumentary/Breasts Denies rash - *Neurologic Reports weakness, Denies confusion, Denies seizure-like activity - Psychiatric Denies confusion Meds Home Medications Medication Instructions Recorded Confirmed Type losartan 25 mg tablet 1 tab PO DAILY tab 06/18/19 03/26/21 History hydrocodone 10 mg-acetaminophen 1 tab PO QID PRN #120 tab 02/07/21 03/26/21 Rx 325 mg tablet omeprazole 40 mg capsule,delayed 40 mg PO DAILY #90 cap 02/07/21 03/26/21 Rx release Amlodipine Besylate 5 mg PO DAILY 02/25/21 03/26/21 History Aspirin [Low Dose Aspirin EC] 81 mg PO DAILY 02/25/21 03/26/21 History Atorvastatin Calcium [Lipitor 40mg 40 mg PO HS 02/25/21 03/27/21 History Tab] Fluoxetine HCl [Prozac] 20 mg PO BID 02/25/21 03/27/21 History Fluticasone/Umeclidin/Vilanter 1 puff IH DAILY 02/25/21 03/27/21 History [Trelegy Ellipta 100-62.5-25] Furosemide [Furosemide 40MG tAB*] 40 mg PO DAILY 02/25/21 03/27/21 History Magnesium Oxide 400 mg PO TID 02/25/21 03/27/21 History Metformin HCl 500 mg PO BID 02/25/21 03/27/21 History Ropinirole HCl 0.25 mg PO HS 02/25/21 03/27/21 History Tizanidine HCl 4 mg PO BIDP PRN 02/25/21 03/27/21 History Trazodone HCl 50 mg PO HS 02/25/21 03/27/21 History Montelukast Sodium [Singulair] 10 mg PO HS 03/26/21 03/27/21 History Potassium Chloride [Klor-con 20 20 meq PO DAILY 03/26/21 03/27/21 History mEq tablet] glipiZIDE [Glipizide ER] 10 mg PO DAILY 03/26/21 03/27/21 History Albuterol Sulfate [Albuterol 2 puff IH Q4HP PRN 03/27/21 03/27/21 History Sulfate Hfa] Gabapentin 600 mg PO TIDP PRN 03/27/2103/27
--- NOTE | 2021-03-26 15:10 | HMH.PHAVTE ---
[facility] Pharmacy VTE Monitoring - Patient Demographics Admission date: 03/26/21 Report Date: 03/26/21 Time: 15:10 Allergies/Adverse Reactions: Patient Allergies verapamil Allergy (Severe, Verified 02/25/21 13:19) Rash Iodine and Iodide Containing Produc Allergy (Mild, Verified 02/25/21 13:19) Rash Penicillins [PENICILLINS] Allergy (Unknown, Verified 02/25/21 13:19) I-RASH Sulfa (Sulfonamide Antibiotics) [SULFA (SULFONAMIDE ANTIBIOTICS)] Allergy (Unknown, Verified 02/25/21 13:19) NA-NAUSEA/VOMITING Height: 1.73 m Weight: 100.698 kg Patient Problems: Current Active Problems (Last Updated 07/25/20 @ 09:56 by ART Aguirre) SIRS (systemic inflammatory response syndrome) (Acute) Diabetes (Chronic ~06/2020) Obesity (BMI 30.0-34.9) (Acute) Cardiac pacemaker in situ (Chronic) COPD (chronic obstructive pulmonary disease) with acute bronchitis (Chronic) - VTE Risk Labs: VTE Related Lab Results Hgb 14.6 g/dL (12.2-16.2) 03/26/21 13:20 Hct 47.4 % (37.0-47.0) H 03/26/21 13:20 Plt Count 211 K/mm3 (142-424) 03/26/21 13:20 BUN 13 mg/dl (7-17) 03/26/21 13:20 Creatinine 0.80 mg/dl (0.52-1.04) 03/26/21 13:20 Estimated Creat Clear 87 mL/min (50-200) 03/26/21 13:20 Was VTE Risk Assessment Performed: No - Prophylaxis VTE Prophylaxis Ordered?: Yes Types of VTE Prophylaxis: TEDS Knee High
--- NOTE | 2021-03-26 15:35 | PC.NURSE ---
REPORT CALLED TO FLOOR
[2021-03-26 16:57] LABS: Troponin I < 0.01 ng/ml (0.00-0.034)
[2021-03-26 17:12] LABS: POC Glucose,Bedside 136 (70-110)
[2021-03-26 19:49] LABS: Troponin I < 0.01 ng/ml (0.00-0.034)
[2021-03-27] VITALS (8 sets, daily range): BP systolic 116–135; BP diastolic 49–73; PULSE 69–90; RESP 17–20; TEMP 36.6–37.4; O2SAT 92–96; BMI 33.6
--- NOTE | 2021-03-27 04:00 | PC.NURSE ---
Patient is A&Ox4. Patient has not expressed any complaints this shift. She has rested comfortably. She has wore 1LNC. IV is infusing NS at 50ml/hr. She ambulates independently. VSS, call light within reach, will continue to monitor.
[2021-03-27 05:25] LABS: POC Glucose,Bedside 180 (70-110)
[2021-03-27 06:58] LABS: Chloride 109 mmol/L (98-107); Potassium 4.2 mmoL/L (3.5-5.1); Sodium 139 mmol/L (136-145)
[2021-03-27 07:01] LABS: Anion Gap 10.2 mEq/L (5-15); Blood Urea Nitrogen 16 mg/dl (7-17); Carbon Dioxide 24 mmol/L (22.0-30.0); Creatinine Clearance Estimated 89 mL/min (50-200); Estimated Glomerular Filt Rate 83 ml/min (>60); GFR (African American) 101 ML/MIN (>60); Glucose 189 mg/dl (74-100); Magnesium 1.8 mg/dl (1.6-2.3)
[2021-03-27 07:04] LABS: Basophils % 0.1 % (0.1-2.0); Hematocrit 43.5 % (37.0-47.0); Hemoglobin 14.1 g/dL (12.2-16.2); Lymphocytes # 0.9 K/mm3 (0.7-4.5); Lymphocytes % 7.1 % (10-50); Mean Corpuscular HGB Conc 32.3 g/dL (31.8-35.4); Mean Corpuscular Hemoglobin 29.5 pg (27.0-31.2); Mean Corpuscular Volume 91.3 fl (81-99); Mean Platelet Volume 8.8 fl (7.4-10.4); Monocytes # 0.2 K/mm3 (0.1-1.0); Monocytes % 1.9 % (1.7-9.3); Neutrophils # 11.8 K/mm3 (1.8-7.8); Neutrophils % 90.9 % (37.0-80.0); Platelet Count 189 K/mm3 (142-424); Red Blood Count 4.76 M/mm3 (4.20-5.40); Red Cell Distribution Width 14.5 % (11.5-17.5)
[2021-03-27 07:06] LABS: MANUAL DIFFERENTIAL MANUAL DIFFERENTIAL (MANUAL DIFF)
[2021-03-27 07:21] LABS: Lymphocytes % 5 % (10-50); Monocytes % 2 % (2-9); Neutrophils % 88 % (42-76); Platelet Estimate Normal; RBC Morphology Normal; Total Cells Counted 100
--- NOTE | 2021-03-27 12:50 | HMH.PHAINT ---
MEDICATION RECONCILIATION COMPLETE USING LIST FROM MD OFFICE AND EXTERNAL PHARMACY FILL HISTORY.
--- NOTE | 2021-03-27 13:23 | HMH.ACPN2 ---
Internal Medicine - PN: Subj *Date: 03/28/21 *Time: 00:55 Interval history: doing better - still wheezing Exam Vital signs and Labs for Last 24 Hours: Temp Pulse Resp BP Pulse Ox 99.4 F 78 20 124/66 92 L 03/27/21 11:57 03/27/21 11:57 03/27/21 11:57 03/27/21 11:57 03/27/21 11:57 Laboratory Results - last 24 hr 03/26/21 13:20: WBC 9.8, RBC 5.17, Hgb 14.6, Hct 47.4 H, MCV 91.7, MCH 28.3, MCHC 30.9 L, RDW 14.8, Plt Count 211, MPV 8.9, Neut % (Auto) 79.2, Lymph % (Auto) 15.2, [place] % (Auto) 3.8, Eos % (Auto) 0.8, Baso % (Auto) 0.9, Neut # (Auto) 7.7, Lymph # (Auto) 1.5, [place] # (Auto) 0.4, Eos # (Auto) 0.1, Baso # (Auto) 0.1 03/26/21 13:20: Sodium 140, Potassium 4.1, Chloride 107, Carbon Dioxide 25, Anion Gap 12.1, BUN 13, Creatinine 0.80, Estimated Creat Clear 87, Estimated GFR 72, Est GFR ( Amer) 87, Glucose 153 H, Calcium 9.2, Total Bilirubin 0.3, AST 42 H, ALT 30, Alkaline Phosphatase 140 H, Troponin I < 0.01, Total Protein 6.7, Albumin 3.9, Globulin 2.8, Albumin/Globulin Ratio 1.4 03/26/21 13:20: Lactate 1.4 03/26/21 13:20: Procalcitonin 0.056 03/26/21 16:00: Troponin I < 0.01 03/26/21 16:26: POC Glucose 136 H 03/26/21 19:15: Troponin I < 0.01 03/27/21 05:10: POC Glucose 180 H 03/27/21 06:27: WBC 13.0 H D, RBC 4.76, Hgb 14.1, Hct 43.5, MCV 91.3, MCH 29.5, MCHC 32.3, RDW 14.5, Plt Count 189, MPV 8.8, Neut % (Auto) 90.9 H, Lymph % (Auto) 7.1 L, [place] % (Auto) 1.9, Eos % (Auto) 0.0 L, Baso % (Auto) 0.1, Neut # (Auto) 11.8 H, Lymph # (Auto) 0.9, [place] # (Auto) 0.2, Eos # (Auto) 0.0, Baso # (Auto) 0.0, Total Counted 100, Neutrophils % (Manual) 88 H, Band Neutrophils % 5.0, Lymphocytes % (Manual) 5 L, Monocytes % (Manual) 2, Platelet Estimate Normal, RBC Morphology Normal 03/27/21 06:27: Sodium 139, Potassium 4.2, Chloride 109 H, Carbon Dioxide 24, Anion Gap 10.2, BUN 16, Creatinine 0.70, Estimated Creat Clear 89, Estimated GFR 83, Est GFR ( Amer) 101, Glucose 189 H D, Calcium 9.0, Magnesium 1.8 I & O for Last 24 hours: Intake & Output 03/25/21 03/26/21 03/27/21 03/28/21 11:59 11:59 11:59 11:59 Intake Total 1038 / 1038 Balance 1038 / 1038 Weight 227 lb 6 oz - Constitutional no acute distress - *Routine HEENT Exam Head: Present: normocephalic Eye: Present: EOMI, PERRL ENT: Present: mucous membranes dry - *Routine Neck Exam Present: supple. Absent: JVD - *Routine Respiratory Exam Present: wheezes - *Routine Cardiovascular Exam Present: RRR, murmur - *Routine Abdominal Exam Present: soft - *Routine Extremities Exam Absent: calf tenderness - *Routine Skin Exam Present: intact - *Routine Neurological Exam Present: alert, oriented X3. Absent: sensory deficit - Routine Psychiatric Exam Present: cooperative, anxious
--- NOTE | 2021-03-27 17:02 | PC.NURSE ---
pt has rested intermittently t/o shift, no complaints of SOA or pain, remained on room air t/o shift, O2 sats 92-95%, has ambulated in room and hallway, telemetry shows NSR
[2021-03-28] VITALS: BP 118/57; PULSE 68; RESP 17; TEMP 36.6; O2SAT 98
[2021-03-28 01:01] LABS: POC Glucose,Bedside 173 (70-110)
[2021-03-28 01:01] LABS: POC Glucose,Bedside 193 (70-110)
[2021-03-28 01:01] LABS: POC Glucose,Bedside 194 (70-110)
[2021-03-28 01:01] LABS: POC Glucose,Bedside 197 (70-110)
[2021-03-28 04:00] VITALS: BP 118/68; PULSE 70; RESP 18; TEMP 36.7; O2SAT 94
--- NOTE | 2021-03-28 04:57 | PC.NURSE ---
Patient is A&Ox4. She has wore her 1LNC throughout the night. She has rested well. Patient ambulates independently in room. No acute changes noted. VSS, call light within reach, will continue to monitor.
[2021-03-28 05:00] VITALS: BMI 33.6
[2021-03-28 06:39] VITALS: PULSE 72; PULSE 74; O2SAT 97
[2021-03-28 08:00] VITALS: BP 155/87; PULSE 70; RESP 18; TEMP 37.1; O2SAT 96
[2021-03-28 08:50] LABS: Basophils % 0.1 % (0.1-2.0); Hematocrit 47.1 % (37.0-47.0); Hemoglobin 14.3 g/dL (12.2-16.2); Lymphocytes # 0.9 K/mm3 (0.7-4.5); Lymphocytes % 4.6 % (10-50); Mean Corpuscular HGB Conc 30.4 g/dL (31.8-35.4); Mean Corpuscular Hemoglobin 28.4 pg (27.0-31.2); Mean Corpuscular Volume 93.4 fl (81-99); Mean Platelet Volume 9.7 fl (7.4-10.4); Monocytes # 0.4 K/mm3 (0.1-1.0); Monocytes % 2.1 % (1.7-9.3); Neutrophils # 17.2 K/mm3 (1.8-7.8); Neutrophils % 93.1 % (37.0-80.0); Platelet Count 215 K/mm3 (142-424); Red Blood Count 5.05 M/mm3 (4.20-5.40); Red Cell Distribution Width 14.6 % (11.5-17.5); White Blood Count 18.5 K/mm3 (4.8-10.8)
[2021-03-28 08:54] LABS: MANUAL DIFFERENTIAL MANUAL DIFFERENTIAL (MANUAL DIFF)
[2021-03-28 09:09] LABS: Chloride 107 mmol/L (98-107); Potassium 3.9 mmoL/L (3.5-5.1); Sodium 139 mmol/L (136-145)
[2021-03-28 09:11] LABS: Blood Urea Nitrogen 23 mg/dl (7-17)
[2021-03-28 09:12] LABS: Anion Gap 11.9 mEq/L (5-15); Calcium 8.7 mg/dl (8.4-10.2); Carbon Dioxide 24 mmol/L (22.0-30.0); Creatinine Clearance Estimated 89 mL/min (50-200); Estimated Glomerular Filt Rate 62 ml/min (>60); GFR (African American) 76 ML/MIN (>60); Glucose 274 mg/dl (74-100)
[2021-03-28 09:31] LABS: Lymphocytes % 8 % (10-50); Monocytes % 1 % (2-9); Neutrophils % 88 % (42-76); Platelet Estimate Normal; Total Cells Counted 100
[2021-03-28 09:32] LABS: Hypochromasia 2+
--- NOTE | 2021-03-28 11:08 | HMH.PULMCON ---
*Admission Date: 03/26/21 *Reason for consult:: COPD exacerbation *History of present illness: Ms. Stallings is a 65-year-old female prior smoker cancer diagnosed COPD on triple inhaler therapy presented to the clinic complaining of worsening shortness of breath and productive phlegm for the last 4 days was eventually admitted to the hospital for further management. Patient also on chronic long-term oxygen therapy at 2 L at home. She admit significant improvement in her symptoms today and she also states that her breathing is at her baseline and requesting to be discharged [facility] History Medical History: Reports:: Anxiety, Atherosclerotic Heart Disease, Congestive Heart Failure, Chronic Obstructive Pulmonary Disease (COPD), Congenital Heart Disease, Coronary Artery Disease, Diabetes Mellitus Type 2, Gastroesophageal Reflux Disease(GERD), Gastrointestinal Bleed, Home Oxygen, Hyperlipidemia, Hypertension, Internal Pacemaker, Lung Disease, Peripheral Vascular Disease, Renal Disease Denies:: Cancer, Diabetes Mellitus Type 1, MRSA, Seizures *Have you ever received a pneumonia vaccine?: Yes *Have you received a flu vaccine this season?: Yes Other Medical History: Reports: Arthritis, Cataracts, Sinus Problems, Thyroid Disease. Denies: Blood Transfusion Reaction Laterality Cases: Right: Arthroscopy Knee, Bilateral: Tonsillectomy Other Surgeries: Yes: No Previous Surgery, Cardiac Catheterization, Cardiac Surgery, Cholecystectomy, Colonoscopy, EGD, Hysterectomy-Total, Pacemaker, Thyroidectomy, Other (wrist surgery) Amputation: No Fractures: No - *Social History Smoking Status: Current every day smoker Tobacco Type: cigarettes # Packs/Day (cigarettes): 1 #Yrs smoked (if former smoker): 30 Alcohol Intake: never Alcohol Intake Frequency:: other Substance Use Type: denies use *Occupational Status:: retired Housing: house Household Members: none *Travel in the last 8 weeks: None - Psychiatric History Pschychiatric History:: Reports:: Anxiety Family Hx:: Asthma, Cancer, Coronary Artery Disease, Diabetes, Heart Attack, Hyperlipidemia, Hypertension, Tuberculosis, Mental illness ROS - Cons Reports body ache(s), Reports chills - Eyes Denies blind spots, Denies blurry vision - Card Reports shortness of breath, Reports shortness of breath with activity, Denies leg swelling - Resp Respiratory: Reports chest congestion, Reports cough, Reports excessive phlegm production, Denies pain on inspiration, Denies pain with cough - GI Gastrointestingal: Denies: abdominal pain - Psych Reports abnormal sleep pattern Meds Home Medications Medication Instructions Recorded Confirmed Type losartan 25 mg tablet 1 tab PO DAILY tab 06/18/19 03/26/21 History hydrocodone 10 mg-acetaminophen 1 tab PO QID PRN #120 tab 02/07/21 03/26/21 Rx 325 mg tablet omeprazole 40 mg capsule,delayed 40 mg PO DAILY #90 cap 02/07/21 03/26/21 Rx release Amlodipine Besylate 5 mg PO DAILY 02/25/21 03/26/21 History Aspirin [Low Dose Aspirin EC] 81 mg PO DAILY 02/25/21 03/26/21 History Atorvastatin Calcium [Lipitor 40mg 40 mg PO HS 02/25/21 03/27/21 History Tab] Fluoxetine HCl [Prozac] 20 mg PO BID 02/25/21 03/27/21 History Fluticasone/Umeclidin/Vilanter 1 puff IH DAILY 02/25/21 03/27/21 History [Trelegy Ellipta 100-62.5-25] Furosemide [Furosemide 40MG tAB*] 40 mg PO DAILY 02/25/21 03/27/21 History Magnesium Oxide 400 mg PO TID 02/25/21 03/27/21 History Metformin HCl 500 mg PO BID 02/25/21 03/27/21 History Ropinirole HCl 0.25 mg PO HS 02/25/21 03/27/21 History Tizanidine HCl 4 mg PO BIDP PRN 02/25/21 03/27/21 History Trazodone HCl 50 mg PO HS 02/25/21 03/27/21 History Montelukast Sodium [Singulair] 10 mg PO HS 03/26/21 03/27/21 History Potassium Chloride [Klor-con 20 20 meq PO DAILY 03/26/21 03/27/21 History mEq tablet] glipiZIDE [Glipizide ER] 10 mg PO DAILY 03/26/21 03/27/21 History Albuterol Sulfate [Albuterol 2 puff IH Q4HP PRN 03/27/21 03/27/21 History Sul
[2021-03-28 11:14] LABS: POC Glucose,Bedside 205 (70-110)
[2021-03-28 11:14] LABS: POC Glucose,Bedside 170 (70-110)
[2021-03-28 11:38] VITALS: BP 134/70; PULSE 72; RESP 18; TEMP 37.1; O2SAT 92
--- NOTE | 2021-03-28 13:16 | HMH.DCSUM ---
General - General Admission date:: 03/26/21 Discharge date: 03/28/21 HPI HPI: this patient presented to the ed with increasing sob over the last 2 days with hx of copd -pt has been compliant with meds - no def exposure to covid-19 does have chest pain -no syncope -pt admitted for treatment with ivf and meds Hospital Course Hospital Course: pt with improvement on ivf and abx and steroids with resp treatment - pt has been able to ambulate and dc diet and on room air- pt had stable labs and was seen by pul med-Rickey Stallings is a 65-year-old female prior smoker cancer diagnosed COPD on triple inhaler therapy presented to the clinic complaining of worsening shortness of breath and productive phlegm for the last 4 days was eventually admitted to the hospital for further management. Patient also on chronic long-term oxygen therapy at 2 L at home. She admit significant improvement in her symptoms today and she also states that her breathing is at her baseline and requesting to be [id number] carries a diagnosis of COPD on triple inhalers at present with worsening respiratory failure along with subjective cough and productive phlegm. Chest x-ray bilateral lobe infiltrates left greater than right. Evidence of worening leukocytosis with WBC count at 18.3, neutrophilic. No febrile episode since admission. Diffuse wheezing noted on examination. Does not appear to be volume overloaded. Patient was initiated on ceftriaxone azithromycin along with methylprednisolone IV 40 every 8 since admission. Admits significant improvement in her symptoms. She is on 2 L which is her home oxygen therapy saturating 96%. Sputum does not meet the criteria as noted to have more than 24 epithelial cells. Blood cultures pending Plan: -Recommend sputum induction with repeat sputum cultures before discharge -Continue ceftriaxone and Azithromycin, can be weaned to levofloxacin on 750 mg daily for a total of 5 days on discharge. -Patient methylprednisolone to prednisone 40 mg daily for a total of 5 days -Continue DuoNebs every 6 hours along with budesonide every 12 hours, continue home inhaler therapy on discharge which include trilogy along with albuterol/DuoNebs every 6 hours as needed Thank you for involving pulmonary in this patient care. We will continue to follow. We will follow the patient in 4 weeks with a repeat chest x-ray, full PFTs and 6-minute walk testing ptwill be d/c and followed as op this week Objective Vital signs: Temp Pulse Resp BP Pulse Ox 98.7 F 72 18 134/70 92 L 03/28/21 11:38 03/28/21 11:38 03/28/21 11:38 03/28/21 11:38 03/28/21 11:38 no acute distress, obese - *Routine HEENT Exam Head: Present: normocephalic Eye: Present: EOMI, PERRL ENT: Absent: mucous membranes dry - *Routine Neck Exam Present: supple. Absent: JVD - *Routine Respiratory Exam Present: wheezes - *Routine Cardiovascular Exam Present: RRR, murmur, S4 - *Routine Abdominal Exam Present: soft - *Routine Extremities Exam Absent: calf tenderness - *Routine Skin Exam Present: intact - *Routine Neurological Exam Present: alert, oriented X3, CN II-XII intact. Absent: motor deficit - Routine Psychiatric Exam Present: normal affect Results Labs on day of discharge: Labs from last 24 hours 03/28/21 03/28/21 03/28/21 11:00 08:42 08:42 WBC 18.5 H D RBC 5.05 Hgb 14.3 Hct 47.1 H MCV 93.4 MCH 28.4 MCHC 30.4 L RDW 14.6 Plt Count 215 MPV 9.7 Neut % (Auto) 93.1 H Lymph % (Auto) 4.6 L [place] % (Auto) 2.1 Eos % (Auto) 0.0 L Baso % (Auto) 0.1 Neut # (Auto) 17.2 H Lymph # (Auto) 0.9 [place] # (Auto) 0.4 Eos # (Auto) 0.0 Baso # (Auto) 0.0 Total Counted 100 Neutrophils % (Manual) 88 H Band Neutrophils % 3.0 Lymphocytes % (Manual) 8 L Monocytes % (Manual) 1 L Platelet Estimate Normal Hypochromasia 2+ Sodium 139 Potassium 3.9 Chloride 10
--- NOTE | 2021-03-28 15:08 | HMH.PHAINT ---
MEDICATION DISCHARGE COUNSELING COMPLETED. PATIENT HAD NO QUESTIONS. I COUNSELED PATIENT ON HOW TO TAKE EACH MEDICATION AND WHAT TO EXPECT / SIGNS TO WATCH FOR FOR ADVERSE REACTION.
== END 2021-03-28 16:30 | disposition home or self-care (01) ==
LOC: ER 12:52 → 2ND 14:27
PROVIDERS: Admitting Provider Emergency Medicine; Emergency Provider Emergency Medicine; PCP Emergency Medicine; Visit Provider Emergency Medicine
DX: J44.1 Chronic obstructive pulmonary disease with (acute) exacerbation (principal); Z20.822 Contact with and (suspected) exposure to COVID-19; I50.9 Heart failure, unspecified; E66.9 Obesity, unspecified; Z95.0 Presence of cardiac pacemaker; F41.9 Anxiety disorder, unspecified; I25.10 Atherosclerotic heart disease of native coronary artery without angina pectoris; E11.9 Type 2 diabetes mellitus without complications; K21.9 Gastro-esophageal reflux disease without esophagitis; Z99.81 Dependence on supplemental oxygen; I10 Essential (primary) hypertension; I73.9 Peripheral vascular disease, unspecified; I13.0 Hypertensive heart and chronic kidney disease with heart failure and stage 1 through stage 4 chronic kidney disease, or unspecified chronic kidney disease; N18.9 Chronic kidney disease, unspecified; Z87.891 Personal history of nicotine dependence
CPT/HCPCS: 36415; 71045; 80048; 80053; 82962; 83605; 83735; 84145; 84484; 85007; 85025; 87040; 87205; 93005; 94640; 96365; 96375; 99285; G0378; J0456; J1956; J2405; U0003

== ENCOUNTER → 2021-04-05 18:01 | Outpatient (CLI) | payer MEDICARE, MEDICAID, SELFPAY ==
[2021-04-05 19:50] LABS: Amphetamine/Metha Screen,Urine Negative ng/ml (<1000)
[2021-04-05 19:51] LABS: Barbiturates Screen,Urine Negative ng/ml (<200)
[2021-04-05 19:53] LABS: Benzodiazepines Screen,Urine Negative ng/ml (<200); Cannabinoid Screen,Urine Negative ng/ml (<50)
[2021-04-05 19:54] LABS: Cocaine Screen,Urine Negative ng/ml (<300)
[2021-04-05 19:55] LABS: Methadone Screen,Urine Negative ng/ml (<300)
[2021-04-05 19:56] LABS: Opiate Screen,Urine Positive ng/ml (<300)
[2021-04-05 19:57] LABS: Phencyclidine Screen,Urine Negative ng/ml (<25)
== END ==
PROVIDERS: Visit Provider Emergency Medicine
DX: G89.29 Other chronic pain (principal); M54.5 Low back pain
CPT/HCPCS: 80305

== ENCOUNTER → 2021-05-02 09:57 | Outpatient (CLI) | payer MEDICARE, MEDICAID, SELFPAY ==
[2021-05-02 10:35] VITALS: PULSE 81; PULSE 84
== END ==
PROVIDERS: PCP Emergency Medicine; Visit Provider Internal Medicine Pulmonary Disease
DX: J44.9 Chronic obstructive pulmonary disease, unspecified (principal); F17.210 Nicotine dependence, cigarettes, uncomplicated
CPT/HCPCS: 94060; 94618; 94640; 94727; 94729

== ENCOUNTER → 2021-06-07 16:49 | Outpatient (CLI) | payer MEDICARE, MEDICAID, SELFPAY ==
--- NOTE | 2021-06-07 16:50 | MM_ITS ---
PROCEDURE: MM DIG SCREENING MAMM BI W/CAD Digital Breast Tomosynthesis Included CLINICAL INDICATION: breast cancer screening There is a history of breast cancer in the patient's mother diagnosed in her 60s COMPARISON: [facility] MM Dig screening mamm BI w/CAD from 11/08/2018 TECHNIQUE: Standard CC and MLO images and 3D Tomosynthesis was obtained. R2 CAD reviewed. FINDINGS: The breasts are composed primarily of fat with scattered fibroglandular densities seen throughout both breasts. There are 2 mole markers left breast. There is a benign-appearing calcification right breast. There is a cardiac pacemaker projecting over the inferior aspect of the left axilla. There is no suspicious lesion in either breast and no suspicious microcalcifications. IMPRESSION: Fatty type breast parenchyma with no suspicious lesions seen BI-RAD Category: 2 Benign Finding(s) FOLLOW-UP: 1YR 1 Year Follow-up (A letter has been sent to the patient regarding results of the study.) Dictated by: Dr. Ivan Engle MD 06/10/2021 15:03 Dr. Ivan Engle MD in [place] 06/10/2021 15:03
== END ==
PROVIDERS: PCP Emergency Medicine; Visit Provider Emergency Medicine
DX: Z12.31 Encounter for screening mammogram for malignant neoplasm of breast (principal)
CPT/HCPCS: 77063; 77067

== ENCOUNTER → 2021-06-15 08:45 | Outpatient (CLI) | payer MEDICARE, MEDICAID, SELFPAY ==
--- NOTE | 2021-06-15 08:58 | CA_ITS ---
APPROVED REPORT EXAM: Comprehensive 2D, Doppler, and color-flow Echocardiogram Magazine Grinder Loader: Mahi Poon RT(R) Ht: 5 ft 9 in Wt: 243lbs BSA: 2.24 BP: 137/69 mmHg Indications: SOB, home O2, CP, COPD, smoker, HTN, HLD, pacemaker, CHF, CAD, GERD 2D Dimensions LVOT 1.99 cm (M/F) 1.5-2.5 LVEF (Loya's) 64.90 % F: 54 - 74 LV Volume 94.70 mL F: 46 - 106 LV Volume Index 42.27 mL/m2 F: 29 - 61 LA Volume 56.10 mL LA Volume Index 25.04 mL/m2 (M/F) 16-34 M-Mode Dimensions RVDd 2.46 cm (0.9-2.6) LA Diam 3.92 cm (1.9-4.0) LVDd 4.71 cm (3.5-5.7) Ao Diam 3.28 cm (2.0-3.7) LVDs 3.18 cm (3.5-5.7) IVSd 1.02 cm (0.6-1.1) PWd 1.06 cm (0.6-1.1) EF (Teich) 60.80% FS 32.50% EDV (Teich) 102.90 mL ESV (Teich) 40.30 mL LV Diastology E Decel Time 227.00 (160-240 msec) E/A Ratio 0.8 MED E' 7.20 (< 7 cm/sec) E'/MED E' Ratio 11.08 (>14) LAT E' 11.00 (<10 cm/sec) E/LAT E' Ratio 7.25 (>14) Mitral Valve MV E Max Wil. 80.00 (40-130 cm/s) MV A Velocity 97.00 (40-130 cm/s) E/A Ratio 0.82 MV Decel. Time 227.00 (160-240 ms) MV PHT 66.00 ms Left Ventricle Left atrium is mildly enlarged, left ventricle normal size, mild concentric left ventricular hypertrophy, visually estimated ejection fraction 55% with no regional wall motion abnormality, grade 1 diastolic dysfunction seen without tissue Doppler evidence of late left atrial pressure. Right Ventricle Right atrium and right ventricle mildly enlarged with normal contractility, pacemaker leads in right atrium and right ventricle. Aortic Valve Aortic valve is thickened and calcified without Doppler evidence of aortic stenosis or aortic insufficiency. Mitral Valve Mitral valve is grossly normal, there is trace mitral regurgitation. Tricuspid Valve Tricuspid valve grossly normal, there is trace tricuspid regurgitation, tricuspid regurgitation jet velocity is inadequate for calculation of the right ventricular systolic pressure. Pulmonic Valve Pulmonic valve is poorly visualized. Great Vessels Aortic root is normal size. Inferior vena cava normal size with normal inspiratory collapse. Pericardium No significant pericardial effusion noted. Conclusion 1. Mild biatrial enlargement, normal left ventricular size, mild concentric left ventricular hypertrophy, visually estimated ejection fraction 55% with no regional wall motion abnormality, grade 1 diastolic dysfunction seen without tissue Doppler evidence of raise left atrial pressure. 2. Mildly enlarged right ventricle with normal contractility. 3. Trace mitral and tricuspid regurgitation. 4. No significant pericardial effusion noted. 5. Inferior vena cava is normal size with normal inspiratory collapse. Electronically signed by : Adam Montes MD 06/16/2021 06:01:03
--- NOTE | 2021-06-15 09:35 | CT_ITS ---
PROCEDURE: CT CHEST W CON CLINCAL INDICATION: dyspnea COMPARISON: CT CT ANGIO CHEST from 04/18/2019 TECHNIQUE: IV Contrast: 75ml Isovue 370 Axial images obtained with sagittal and coronal reformats. All CT scans at the facility use one or more dose reduction, viz: automated exposure control, ma/kV adjustment per patient size (including targeted exams where dose is matched to indication, i.e. head), or iterative reconstruction technique. FINDINGS: HEART AND MEDIASTINAL STRUCTURES: Unremarkable. Prior right thyroidectomy LUNGS AND PLEURAL SPACES: COPD changes with centrilobular emphysema. No lobar consolidation or collapse. There is a 2 cm pneumatocele in the right lung base unchanged. No suspicious nodules identified. BONY STRUCTURES: No acute finding UPPER ABDOMEN: Nodularity of the right adrenal gland appears somewhat less apparent. ADDITIONAL FINDINGS: No other significant abnormalities. IMPRESSION: No change with no acute finding. COPD with mild centrilobular emphysema. Dictated by: Roman Cardenas MD 06/16/2021 12:04 Roman Cardenas MD in [place] 06/16/2021 12:04
[2021-06-15 09:45] LABS: Blood Urea Nitrogen 17 mg/dl (7-17); Estimated Glomerular Filt Rate 72 ml/min (>60); GFR (African American) 87 ML/MIN (>60)
== END ==
PROVIDERS: PCP Emergency Medicine; Visit Provider Nurse Practitioner Family
DX: E78.2 Mixed hyperlipidemia (principal); F17.200 Nicotine dependence, unspecified, uncomplicated; G62.9 Polyneuropathy, unspecified; I10 Essential (primary) hypertension; I50.9 Heart failure, unspecified; J20.9 Acute bronchitis, unspecified; J44.0 Chronic obstructive pulmonary disease with (acute) lower respiratory infection; N28.9 Disorder of kidney and ureter, unspecified; R06.00 Dyspnea, unspecified; R06.01 Orthopnea; R06.02 Shortness of breath; R07.89 Other chest pain; R60.0 Localized edema; Z95.0 Presence of cardiac pacemaker
CPT/HCPCS: 36415; 71260; 82565; 84520; 93306; Q9967

== ENCOUNTER → 2021-06-28 18:49 | Outpatient (CLI) | payer MEDICARE, MEDICAID, SELFPAY ==
[2021-06-28 22:06] LABS: Barbiturates Screen,Urine Negative ng/ml (<200); Benzodiazepines Screen,Urine Negative ng/ml (<200)
[2021-06-28 22:07] LABS: Amphetamine/Metha Screen,Urine Negative ng/ml (<1000)
[2021-06-28 22:08] LABS: Cocaine Screen,Urine Negative ng/ml (<300); Methadone Screen,Urine Negative ng/ml (<300)
[2021-06-28 22:09] LABS: Cannabinoid Screen,Urine Negative ng/ml (<50)
[2021-06-28 22:10] LABS: Opiate Screen,Urine Positive ng/ml (<300); Phencyclidine Screen,Urine Negative ng/ml (<25)
== END ==
PROVIDERS: Visit Provider Emergency Medicine
DX: Z79.899 Other long term (current) drug therapy (principal)
CPT/HCPCS: 80305

== ENCOUNTER → 2021-08-26 12:54 | Outpatient (CLI) | payer MEDICARE, MEDICAID, SELFPAY ==
[2021-08-26 13:32] LABS: Basophils # 0.1 K/mm3 (0-0.2); Basophils % 1.5 % (0.1-2.0); Eosinophils # 0.3 K/mm3 (0.0-0.4); Eosinophils % 3.1 % (0.1-12.0); Hematocrit 44.2 % (37.0-47.0); Hemoglobin 13.8 g/dL (12.2-16.2); Lymphocytes # 2.4 K/mm3 (0.7-4.5); Lymphocytes % 26.3 % (10-50); Mean Corpuscular HGB Conc 31.3 g/dL (31.8-35.4); Mean Corpuscular Hemoglobin 28.2 pg (27.0-31.2); Mean Corpuscular Volume 90.2 fl (81-99); Mean Platelet Volume 10.2 fl (7.4-10.4); Monocytes # 0.6 K/mm3 (0.1-1.0); Monocytes % 6.4 % (1.7-9.3); Neutrophils # 5.8 K/mm3 (1.8-7.8); Neutrophils % 62.6 % (37.0-80.0); Platelet Count 210 K/mm3 (142-424); Red Blood Count 4.91 M/mm3 (4.20-5.40); Red Cell Distribution Width 14.3 % (11.5-17.5); White Blood Count 9.2 K/mm3 (4.8-10.8)
[2021-08-26 13:57] LABS: Chloride 106 mmol/L (98-107); Potassium 4.4 mmoL/L (3.5-5.1); Sodium 138 mmol/L (136-145)
[2021-08-26 13:59] LABS: Alanine Aminotransferase 40 U/L (12-78); Aspartate Amino Transferase 32 U/L (14-36); Blood Urea Nitrogen 19 mg/dl (7-17); Estimated Glomerular Filt Rate 71 ml/min (>60); GFR (African American) 86 ML/MIN (>60)
[2021-08-26 14:00] LABS: Albumin/Globulin Ratio 1.7 (1.1-1.8); Alkaline Phosphatase 154 U/L (38-126); Anion Gap 12.4 mEq/L (5-15); Bilirubin,Total 0.4 mg/dl (0.2-1.3); Calcium 9.4 mg/dl (8.4-10.2); Carbon Dioxide 24 mmol/L (22.0-30.0); Globulin 2.4 g/dL (1.3-3.2); Glucose 204 mg/dl (74-100); Total Protein,Serum 6.4 g/dl (6.3-8.2)
[2021-08-26 14:14] LABS: Free T4 (Free Thyroxine) 1.17 ng/dl (0.78-2.19)
[2021-08-26 14:28] LABS: Thyroid Stimulating Hormone 5.23 uIU/mL (0.465-4.68)
== END ==
PROVIDERS: Visit Provider Emergency Medicine
DX: R53.83 Other fatigue (principal); E11.9 Type 2 diabetes mellitus without complications; Z79.84 Long term (current) use of oral hypoglycemic drugs
CPT/HCPCS: 80053; 83036; 84439; 84443; 85025

== ENCOUNTER → 2021-12-13 15:42 | Outpatient (CLI) | payer MEDICARE, MEDICAID, SELFPAY ==
[2021-12-13 18:43] LABS: Barbiturates Screen,Urine Negative ng/ml (<200)
[2021-12-13 18:44] LABS: Benzodiazepines Screen,Urine Negative ng/ml (<200)
[2021-12-13 18:45] LABS: Amphetamine/Metha Screen,Urine Negative ng/ml (<1000); Methadone Screen,Urine Negative ng/ml (<300)
[2021-12-13 18:46] LABS: Cannabinoid Screen,Urine Negative ng/ml (<50); Cocaine Screen,Urine Negative ng/ml (<300)
[2021-12-13 18:47] LABS: Opiate Screen,Urine Positive ng/ml (<300)
[2021-12-13 18:48] LABS: Phencyclidine Screen,Urine Negative ng/ml (<25)
== END ==
PROVIDERS: PCP Emergency Medicine; Visit Provider Emergency Medicine
DX: G62.9 Polyneuropathy, unspecified (principal); R45.851 Suicidal ideations; Z79.899 Other long term (current) drug therapy
CPT/HCPCS: 80305

== ENCOUNTER → 2021-12-14 11:31 | Outpatient (CLI) | payer MEDICARE, MEDICAID, SELFPAY ==
--- NOTE | 2021-12-14 13:10 | HMH.ITSHM ---
Current Home Medications as stated by this patient Yaritza Stallings or national account representative. []METFORMIN MAGNESIUM AMLODIPINE TIZANIDINE ROPINIROLE RIVAROXABAN POTASSIUM OMEPRAZOLE MONTELUKAST LOSARTAN IPRATROPIUM HYDROCODONE GLIPIZIDE GABAPENTIN FUROSEMIDE FLUTICASONE FLUOXETINE BISOPROLOL ATORVASTATIN ASA ALBUTEROL TRAZODONE PANTOPRAZOLE
--- NOTE | 2021-12-14 14:08 | XR_ITS ---
FINAL REPORT CLINICAL HISTORY: pacemaker, new onset afib COMPARISON: March 26, 2021 FINDINGS: Two views of the chest were obtained. There is a left subclavian pacemaker. The heart size and pulmonary vascularity are within normal limits. The mediastinum is normal. No acute pulmonary abnormality is identified. There is no pneumothorax. The bony thorax is intact. IMPRESSION: No active cardiopulmonary disease. Reviewed, Interpreted and Dictated by Vickey Christianson III, MD Transcribed by Sydni Cervantes Authenticated by Vickey Christianson III, MD on 12/14/2021 03:44:17 PM [facility]
== END ==
PROVIDERS: PCP Emergency Medicine; Visit Provider Nurse Practitioner
DX: E11.9 Type 2 diabetes mellitus without complications (principal); E66.9 Obesity, unspecified; E78.2 Mixed hyperlipidemia; G62.9 Polyneuropathy, unspecified; I11.9 Hypertensive heart disease without heart failure; I25.118 Atherosclerotic heart disease of native coronary artery with other forms of angina pectoris; I48.0 Paroxysmal atrial fibrillation; I50.9 Heart failure, unspecified; M51.16 Intervertebral disc disorders with radiculopathy, lumbar region; N28.9 Disorder of kidney and ureter, unspecified; Z72.0 Tobacco use; Z95.0 Presence of cardiac pacemaker; E83.42 Hypomagnesemia; Z68.36 Body mass index [BMI] 36.0-36.9, adult
CPT/HCPCS: 71046; 78452; 93017; A9502; J2785

== ENCOUNTER 2022-01-20 21:24 | Emergency (ER) | payer MEDICARE, MEDICAID, SELFPAY ==
[2022-01-21 00:19] VITALS: BP 129/58; PULSE 69; RESP 16; TEMP 36.8; O2SAT 93; BMI 35.4
--- NOTE | 2022-01-21 00:30 | HMH.EDGENADL ---
ED Disposition Clinical Impression: Headache Qualifiers: Headache type: unspecified Headache chronicity pattern: acute headache Intractability: not intractable Qualified Code(s): R51.9 - Headache, unspecified Subconjunctival hemorrhage Qualifiers: Laterality: left Qualified Code(s): H11.32 - Conjunctival hemorrhage, left eye Disposition: Home, Self-Care Condition on Discharge: Good Instructions: DI for Headache Additional Instructions: Follow up with die storage clerk on Sunday. Referrals: Ilir Jeffers MD [Primary Care Provider] - - Critical Care Critical Care Time: No Attestation: On 01/20/22, the high probability of a clinically significant, sudden or life threatening deterioration of the following system(s) required my full and direct attention, intervention and personal management. The time I documented below is in addition to time spent performing reported procedures but includes the following listed in this critical care notation. Medical Decision Making - Medical Records Medical records reviewed: Yes: I reviewed the patient's medical records. - Anibal Inquiry Pt receiving controlled substance: No Vital Signs: 01/21/22 00:19 01/21/22 02:22 Temperature 98.3 F 97.9 F Temperature Source Oral Pulse Rate 70 Pulse Rate [Left Brachial] 69 Respiratory Rate 16 19 Blood Pressure 138/78 Blood Pressure [Left Arm] 129/58 L Blood Pressure Mean [Left Arm] 81 Blood Pressure Source [Left Arm] Automatic Cuff Blood Pressure Position [Left Arm] Sitting 02 Sat by Pulse Oximetry 93 L Oxygen Delivery Method Room Air Room Air Orders (Tests/Meds): ED MEDICATIONS Discontinued Medications Generic Name Dose Route Start Last Admin Trade Name Freq PRN Reason Stop Dose Admin Acetaminophen 1,000 mg 01/21/22 01:20 01/21/22 02:05 Acetaminophen 500mg Tab PO 01/21/22 01:21 1,000 mg ONCE ONE Administration Prochlorperazine Edisylate 10 mg 01/21/22 01:21 01/21/22 02:05 Prochlorperazine 10mg/2ml Vial IM 01/21/22 01:22 10 mg ONCE ONE Administration ORDERS Category Date Time Status Complete Blood Count Auto Diff Stat Lab 01/21/22 01:27 Ordered Comprehensive Metabolic Panel Stat Lab 01/21/22 01:27 Ordered Medical Decision Narrative: Patient is a 58-year-old female presenting with a chief complaint of left eye redness and headache. Patient states onset of symptoms was after she woke up from a nap this afternoon. Has COPD, coughs often. Differential low-dose includes, but is not limited to, subconjunctival hemorrhage, conjunctivitis, preseptal versus orbital cellulitis, migraine, intracranial pathology, other. Initial exam, patient is hemodynamically stable nontoxic-appearing. Physical exam is consistent with left-sided subconjunctival hemorrhage. Patient has no pain with eye movement, patient denies any visual changes or deficits. Visual acuity shows 20/70 in both eyes. Patient was treated with IV Compazine for migraine and evaluate CT imaging given new blood thinner use. She did not wish to wait for results, stated that she will follow-up with her primary care physician. Given her new blood thinner use, she was counseled to follow-up with die storage clerk on Sunday. Discharged in a stable condition. CT imaging did not show acute findings. General Adult HPI - General Chief complaint: PAIN Stated complaint: Left eye red pain Time Seen by Provider: 01/21/22 00:30 Mode of Arrival: Ambulatory Limitations: No Limitations Description of Symptoms (Recalled from ER Triage Doc. by RN): Left eye bleeding, states took a nap and woke up and notice pressure to left eye, and headache. States bleeding worse this afternoon. - History of Present Illness HPI narrative: Yaritza is a 66yo F with chief complaint of acute redness/bleeding in the left eye, associated head pressure/headache. Patient reports she took a nap and noticed her eye was red when she woke up. She has not had a feve
--- NOTE | 2022-01-21 01:28 | CT_ITS ---
PROCEDURE INFORMATION: Exam: CT Head Without Contrast Exam date and time: 01/21/2022 2:00 AM Age: 66 years old Clinical indication: Pain; Headache; Migraine; Additional info: Severe KAY TECHNIQUE: Imaging protocol: Computed tomography of the head without contrast. Radiation optimization: All CT scans at this facility use at least one of these dose optimization techniques: automated exposure control; mA and/or kV adjustment per patient size (includes targeted exams where dose is matched to clinical indication); or iterative reconstruction. COMPARISON: CT HEAD/BRAIN WO CON 05/09/2019 7:31 PM FINDINGS: Brain: There is diffuse cortical volume loss and hypoattenuation of the deep white matter. No evidence of acute intracranial hemorrhage. No acute cerebral edema or shift. Cerebral ventricles: No ventriculomegaly. Paranasal sinuses: Visualized sinuses are unremarkable. No fluid levels. Mastoid air cells: Visualized mastoid air cells are well aerated. Bones/joints: Unremarkable. No acute fracture. Soft tissues: Unremarkable. IMPRESSION: No acute intracranial process. Diffuse cortical atrophy and chronic deep white matter small vessel disease.
--- NOTE | 2022-01-21 01:57 | PC.NURSE ---
Pt states she is tired of waiting and wants to get medicine for the headache and go home. Informed MD of this information. MD states it is ok to give ordered meds and then complete an visual exam.
[2022-01-21 02:22] VITALS: BP 138/78; PULSE 70; RESP 19; TEMP 36.6; O2SAT 94
--- NOTE | 2022-01-21 02:24 | PC.NURSE ---
Visual exam results 20/70 for bilat eyes. MD notified. Pt states she normally wears glasses but does not have them at this time.
== END 2022-01-21 03:30 | disposition home or self-care (01) ==
PROVIDERS: Emergency Provider Emergency Medicine; PCP Emergency Medicine
DX: R51.9 Headache, unspecified (principal); H11.32 Conjunctival hemorrhage, left eye; Z79.899 Other long term (current) drug therapy; Z88.0 Allergy status to penicillin; Z88.2 Allergy status to sulfonamides; Z88.8 Allergy status to other drugs, medicaments and biological substances; I25.10 Atherosclerotic heart disease of native coronary artery without angina pectoris; J44.9 Chronic obstructive pulmonary disease, unspecified; I11.0 Hypertensive heart disease with heart failure; I50.9 Heart failure, unspecified; E11.9 Type 2 diabetes mellitus without complications; Z99.81 Dependence on supplemental oxygen; Z95.0 Presence of cardiac pacemaker; I73.9 Peripheral vascular disease, unspecified; M19.90 Unspecified osteoarthritis, unspecified site
CPT/HCPCS: 70450; 96374; 99284

== ENCOUNTER → 2022-04-17 13:53 | Outpatient (CLI) | payer MEDICARE, MEDICAID, SELFPAY ==
[2022-04-17 14:59] LABS: Basophils # 0.2 K/mm3 (0-0.2); Basophils % 1.7 % (0.1-2.0); Eosinophils # 0.3 K/mm3 (0.0-0.4); Eosinophils % 2.8 % (0.1-12.0); Hematocrit 45.2 % (37.0-47.0); Hemoglobin 14.6 g/dL (12.2-16.2); Lymphocytes # 2.5 K/mm3 (0.7-4.5); Lymphocytes % 24.3 % (10-50); Mean Corpuscular HGB Conc 32.2 g/dL (31.8-35.4); Mean Corpuscular Hemoglobin 28.9 pg (27.0-31.2); Mean Corpuscular Volume 89.5 fl (81-99); Mean Platelet Volume 9.3 fl (7.4-10.4); Monocytes # 0.7 K/mm3 (0.1-1.0); Monocytes % 6.6 % (1.7-9.3); Neutrophils # 6.7 K/mm3 (1.8-7.8); Neutrophils % 64.6 % (37.0-80.0); Platelet Count 215 K/mm3 (142-424); Red Blood Count 5.05 M/mm3 (4.20-5.40); White Blood Count 10.3 K/mm3 (4.8-10.8)
[2022-04-17 16:18] LABS: Chloride 101 mmol/L (98-107)
[2022-04-17 16:19] LABS: Potassium 4.3 mmoL/L (3.5-5.1); Sodium 140 mmol/L (136-145)
[2022-04-17 16:22] LABS: Anion Gap 16.3 mEq/L (5-15); Blood Urea Nitrogen 14 mg/dl (7-17); Carbon Dioxide 27 mmol/L (22.0-30.0); Estimated Glomerular Filt Rate 62 ml/min (>60); GFR (African American) 75 ML/MIN (>60); Glucose 128 mg/dl (74-100)
== END ==
PROVIDERS: PCP Emergency Medicine; Visit Provider Internal Medicine
DX: J20.9 Acute bronchitis, unspecified (principal); I25.118 Atherosclerotic heart disease of native coronary artery with other forms of angina pectoris; R06.00 Dyspnea, unspecified; R06.01 Orthopnea; R06.02 Shortness of breath; Z01.812 Encounter for preprocedural laboratory examination; Z20.822 Contact with and (suspected) exposure to COVID-19
CPT/HCPCS: 36415; 80048; 85025; C9803; U0003; U0005

== ENCOUNTER 2022-04-19 08:32 | Day surgery (SDC) | payer MEDICARE, MEDICAID, SELFPAY ==
[2022-04-19] VITALS (11 sets, daily range): BP systolic 113–151; BP diastolic 70–93; PULSE 69–81; RESP 18–20; O2SAT 90–95; BMI 36.0
--- NOTE | 2022-04-19 07:14 | IR_ITS ---
APPROVED REPORT Patient Location: Outpatient City Attorney: TERRANCE Ivory RT (R) PROCEDURES Right heart catheterization Left heart catheterization Left ventriculogram Selective coronary angiogram INDICATION Persistent dyspnea, Persistent angina pectoris, Suspected pulmonary hypertension Informed consent was obtained prior to the procedure. COMPLICATIONS none Estimated Blood Loss: less than 10 ml TECHNIQUE One percent lidocaine was used to anesthetize the right anterior aspect of the right wrist. The right radial artery was accessed via the Seldinger technique and a 6 Yakut hydrophilic sheath was placed in the right radial artery. Following this one percent lidocaine was used to anesthetize the right anterior aspect of the right neck. The right internal jugular vein was accessed via the Seldinger technique and a 7 Yakut sheath was placed in the right internal jugular vein. Following this an arterial cocktail was administered using 5000U heparin, 2.5 mg verapamil, 1mg Lidocaine and 800mcg nitroglycerin into the right radial sheath. A papa catheter was used to perform left heart catheterization left ventriculogram and selective coronary angiography while a [place]wood-Bryce catheter was used to perform right heart catheterization. Saturations were obtained in the pulmonary artery and right atrium. At the end of the procedure the arterial sheath was removed good hemostasis was achieved using Traclet band. Patient was transferred to the postop holding area in stable condition for venous sheath removal. ANGIOGRAPHIC RESULTS The left main artery Normal The left anterior descending artery Normal The circumflex artery Normal The right coronary artery Dominant normal The HOANG ventriculogram reveals Hyperdynamic 75% The left ventricular end-diastolic pressure 18 to 20 mmHg Right atrial pressure 10 mmHg Pulmonary artery pressure 35/20 mmHg Pulmonary occlusion pressure 15 mmHg Right atrial saturation 85% Pulmonary artery saturation 85% Aortic saturation 99% Hemoglobin 14.6 Cardiac output by Christopher 10.3 L/min IMPRESSION Normal coronary arteries Hyperdynamic ventricle consistent with diastolic dysfunction Mild pulmonary hypertension Mildly elevated intracardiac pulmonary filling pressures consistent with diastolic dysfunction/hypertensive heart disease PLAN 1. Treatment of diastolic dysfunction which is etiology for patient's symptoms 2. Patient requires diltiazem possibly combined with beta-blockers with loop diuretics. Patient has high cardiac output secondary to hyperdynamic diastolic dysfunction 3. Avoidance of carbonated soft drinks 4. Recommend sleep study Electronically signed by : Harsh Bonner MD 04/19/2022 11:29:51
[2022-04-19 14:36] LABS: CATHL Arterial O2 SAT 85.3 % (90-100); CATHL Venous O2 SAT 85.1 % (75-80)
== END 2022-04-19 14:34 | disposition home or self-care (01) ==
LOC: CATHLAB 08:34
PROVIDERS: PCP Emergency Medicine; Visit Provider Internal Medicine
DX: I11.9 Hypertensive heart disease without heart failure (principal); I48.0 Paroxysmal atrial fibrillation; I20.8 Other forms of angina pectoris; E78.2 Mixed hyperlipidemia; R06.02 Shortness of breath; R53.83 Other fatigue; R55 Syncope and collapse; Z95.0 Presence of cardiac pacemaker; F17.210 Nicotine dependence, cigarettes, uncomplicated; Z79.899 Other long term (current) drug therapy
CPT/HCPCS: 82810; 93460; 99152; C1725; C1760; C1769; C1894; J1644; Q9967

== ENCOUNTER → 2022-05-26 16:40 | Outpatient (CLI) | payer MEDICARE, MEDICAID, SELFPAY ==
[2022-05-09 19:50] LABS: Amphetamine/Metha Screen,Urine Negative ng/ml (<1000)
[2022-05-09 19:51] LABS: Barbiturates Screen,Urine Negative ng/ml (<200)
[2022-05-09 19:52] LABS: Benzodiazepines Screen,Urine Negative ng/ml (<200); Cannabinoid Screen,Urine Negative ng/ml (<50)
[2022-05-09 19:54] LABS: Methadone Screen,Urine Negative ng/ml (<300)
[2022-05-09 19:55] LABS: Cocaine Screen,Urine Negative ng/ml (<300); Opiate Screen,Urine Positive ng/ml (<300)
[2022-05-09 19:56] LABS: Phencyclidine Screen,Urine Negative ng/ml (<25)
[2022-05-26 17:22] LABS: Basophils # 0.1 K/mm3 (0-0.2); Basophils % 1.2 % (0.1-2.0); Eosinophils # 0.2 K/mm3 (0.0-0.4); Eosinophils % 2.6 % (0.1-12.0); Hematocrit 45.2 % (37.0-47.0); Hemoglobin 14.2 g/dL (12.2-16.2); Lymphocytes % 25.2 % (10-50); Mean Corpuscular HGB Conc 31.4 g/dL (31.8-35.4); Mean Corpuscular Hemoglobin 28.4 pg (27.0-31.2); Mean Corpuscular Volume 90.4 fl (81-99); Mean Platelet Volume 9.5 fl (7.4-10.4); Monocytes # 0.6 K/mm3 (0.1-1.0); Monocytes % 6.8 % (1.7-9.3); Neutrophils # 5.2 K/mm3 (1.8-7.8); Neutrophils % 64.1 % (37.0-80.0); Platelet Count 202 K/mm3 (142-424); Red Cell Distribution Width 14.7 % (11.5-17.5); White Blood Count 8.1 K/mm3 (4.8-10.8)
[2022-05-26 17:52] LABS: Alanine Aminotransferase 40 U/L (12-78); Albumin Level 3.7 g/dl (3.5-5.0); Alkaline Phosphatase 186 U/L (38-126); Aspartate Amino Transferase 35 U/L (14-36); Bilirubin,Direct 0.1 mg/dl (0.0-0.4); Bilirubin,Indirect 0.1 mg/dL (0.0-0.9); Bilirubin,Total 0.2 mg/dl (0.2-1.3); Bilirubin,Unconjugated 0.1 mg/dL (0.0-1.1); Chol/HDL Ratio 4.8 (1-3.5); Cholesterol 176 mg/dl (140-200); HDL Cholesterol 37 mg/dl (40-60); Magnesium 1.6 mg/dl (1.6-2.3); Total Protein,Serum 6.1 g/dl (6.3-8.2); Triglycerides 223 mg/dl (30-150); VLDL Cholesterol 45 mg/dL (0-40)
[2022-05-26 18:03] LABS: Direct LDL Cholesterol 116.05 mg/dL (100-129)
[2022-05-26 18:09] LABS: Free T4 (Free Thyroxine) 1.21 ng/dl (0.78-2.19)
== END ==
PROVIDERS: Physician Assistant; PCP Emergency Medicine; Visit Provider Emergency Medicine
DX: M51.16 Intervertebral disc disorders with radiculopathy, lumbar region (principal); Z79.899 Other long term (current) drug therapy; R06.00 Dyspnea, unspecified; R06.01 Orthopnea; R06.02 Shortness of breath; R53.83 Other fatigue; E78.2 Mixed hyperlipidemia; I48.0 Paroxysmal atrial fibrillation; Z51.81 Encounter for therapeutic drug level monitoring
CPT/HCPCS: 36415; 80061; 80076; 80305; 83735; 84439; 84443; 85025

== ENCOUNTER → 2022-07-07 18:22 | Outpatient (CLI) | payer MEDICARE, MEDICAID, SELFPAY ==
[2022-07-07 18:07] LABS: Amphetamine/Metha Screen,Urine Negative ng/ml (<1000)
[2022-07-07 18:08] LABS: Barbiturates Screen,Urine Negative ng/ml (<200)
[2022-07-07 18:08] LABS: Adenovirus,PCR Not Detected (NotDetected); Bordetella Pertussis Not Detected (NotDetected); Chlamydophila Pneumoniae, PCR Not Detected (NotDetected); Coronavirus 19, PCR Not Detected (NotDetected); Coronavirus 229E Not Detected (NotDetected); Coronavirus NL63 Not Detected (NotDetected); Coronavirus OC43 Not Detected (NotDetected); Coronovirus HKU1,PCR Not Detected (NotDetected); Human Metapneumovirus Not Detected (NotDetected); Influenza A, PCR Not Detected (NotDetected); Influenza AH1, 2009 Not Detected (NotDetected); Influenza AH1, PCR Not Detected (NotDetected); Influenza AH3,PCR Not Detected (NotDetected); Influenza B, PCR Not Detected (NotDetected); Mycoplasma Pneumoniae, PCR Not Detected (NotDetected); Parainfluenza 1, PCR Not Detected (NotDetected); Parainfluenza 2, PCR Not Detected (NotDetected); Parainfluenza 3, PCR Not Detected (NotDetected); Parainfluenza 4, PCR Not Detected (NotDetected); Respiratory Syncytial Virus Not Detected (NotDetected); Rhinovirus/Enterovirus Not Detected (NotDetected)
[2022-07-07 18:09] LABS: Benzodiazepines Screen,Urine Negative ng/ml (<200); Cannabinoid Screen,Urine Negative ng/ml (<50)
[2022-07-07 18:10] LABS: Cocaine Screen,Urine Negative ng/ml (<300); Methadone Screen,Urine Negative ng/ml (<300)
[2022-07-07 18:11] LABS: Opiate Screen,Urine Negative ng/ml (<300)
[2022-07-07 18:12] LABS: Phencyclidine Screen,Urine Negative ng/ml (<25)
== END ==
PROVIDERS: PCP Emergency Medicine; Visit Provider Emergency Medicine
DX: M51.16 Intervertebral disc disorders with radiculopathy, lumbar region (principal); R09.89 Other specified symptoms and signs involving the circulatory and respiratory systems
CPT/HCPCS: 80305; 87581; 87632; 87798; C9803; U0003; U0005

== ENCOUNTER 2022-07-16 12:10 | Inpatient (IN) | payer MEDICAID, MEDICARE, SELFPAY ==
[2022-07-16] VITALS (17 sets, daily range): BP systolic 110–146; BP diastolic 55–76; PULSE 68–83; RESP 18–22; TEMP 36.6–37.2; O2SAT 88–95; BMI 35.4; BMI 34.4
--- NOTE | 2022-07-16 12:16 | XR_ITS ---
PROCEDURE INFORMATION: Exam: XR Chest Exam date and time: 07/16/2022 12:32 PM Age: 67 years old Clinical indication: Cough; Prior surgery; Surgery type: Pacemaker placed in 2011. ; Additional info: Cough/congestion TECHNIQUE: Imaging protocol: Radiologic exam of the chest. Views: 1 view. COMPARISON: CR XR CHEST 2V 12/14/2021 2:15 PM FINDINGS: Lungs: Unremarkable. No consolidation. Pleural spaces: Unremarkable. No pleural effusion. No pneumothorax. Heart/Mediastinum: Cardiac silhouette is not enlarged. There is a dual electrode pacemaker whose tips are unchanged in location from previous exam. Bones/joints: Unremarkable for age. IMPRESSION: Negative chest
[2022-07-16 12:19] LABS: Influenza A, PCR Not Detected (NotDetected); Influenza B, PCR Not Detected (NotDetected)
[2022-07-16 12:41] LABS: Coronavirus 19, PCR Detected (NotDetected)
--- NOTE | 2022-07-16 13:05 | HMH.EDGENADL ---
Discharge Plan Disposition Patient Disposition: Admitted As Inpatient Condition: Fair Chief Complaint: Upper Respiratory Infection Prescriptions Prescriptions: No Action Luis Starksta 200-62.5-25 mcg blister with device 1 inh INHALATION DAILY 90 Days Qty: 90 3RF (DME) Easy Touch Test Strip Strip See Rx Instructions .Route Qty: 100 3RF Rx Instructions: Test 3 times daily losartan 25 mg tablet 1 tab PO DAILY pantoprazole 40 mg tablet,delayed release (DR/EC) 40 mg PO DAILY Qty: 30 5RF gabapentin 800 mg tablet 800 mg PO TID Qty: 90 1RF oxycodone-acetaminophen [Percocet] 10-325 mg tablet 1 tab PO QID Qty: 120 0RF ondansetron HCl 4 mg tablet 4 mg PO Q8H PRN (Reason: nausea and vomiting) Qty: 30 0RF diazepam 5 mg tablet 5 mg PO BID Qty: 60 1RF magnesium oxide See Rx Instructions .ROUTE .COMPLEX Qty: 90 3RF Dose Instruction: TAKE ONE TABLET BY MOUTH THREE TIMES DAILY Rx Instructions: TAKE ONE TABLET BY MOUTH THREE TIMES DAILY aspirin 81 mg tablet,delayed release (DR/EC) See Rx Instructions .ROUTE .COMPLEX Qty: 30 11RF Dose Instruction: TAKE ONE TABLET BY MOUTH DAILY Rx Instructions: TAKE ONE TABLET BY MOUTH DAILY fluticasone propionate [Flonase Allergy Relief] 50 mcg/actuation spray,suspension 1 spray NS DAILY Qty: 16 2RF Rx Instructions: administer into each nostril metformin 500 mg tablet See Rx Instructions .ROUTE .COMPLEX Qty: 180 3RF Dose Instruction: TAKE ONE TABLET BY MOUTH TWICE DAILY Rx Instructions: TAKE ONE TABLET BY MOUTH TWICE DAILY ropinirole 0.25 mg tablet See Rx Instructions .ROUTE .COMPLEX Qty: 90 3RF Dose Instruction: TAKE ONE TABLET BY MOUTH EVERY DAY AT BEDTIME FOR restless LEGS Rx Instructions: TAKE ONE TABLET BY MOUTH EVERY DAY AT BEDTIME FOR restless LEGS fluoxetine 20 mg capsule See Rx Instructions .ROUTE .COMPLEX Qty: 180 3RF Dose Instruction: TAKE ONE CAPSULE BY MOUTH TWICE DAILY FOR MOOD Rx Instructions: TAKE ONE CAPSULE BY MOUTH TWICE DAILY FOR MOOD atorvastatin 40 mg tablet See Rx Instructions .ROUTE .COMPLEX Qty: 90 3RF Dose Instruction: TAKE ONE TABLET BY MOUTH EVERY DAY AT BEDTIME Rx Instructions: TAKE ONE TABLET BY MOUTH EVERY DAY AT BEDTIME furosemide 40 mg tablet See Rx Instructions .ROUTE .COMPLEX Qty: 90 3RF Dose Instruction: TAKE ONE TABLET BY MOUTH EVERY DAY Rx Instructions: TAKE ONE TABLET BY MOUTH EVERY DAY potassium chloride 20 mEq tablet,ER particles/crystals See Rx Instructions .ROUTE .COMPLEX Qty: 90 3RF Dose Instruction: TAKE ONE TABLET BY MOUTH EVERY DAY Rx Instructions: TAKE ONE TABLET BY MOUTH EVERY DAY glipizide 10 mg tablet extended release 24hr See Rx Instructions .ROUTE .COMPLEX Qty: 90 3RF Dose Instruction: TAKE ONE TABLET BY MOUTH EVERY DAY Rx Instructions: TAKE ONE TABLET BY MOUTH EVERY DAY montelukast 10 mg tablet See Rx Instructions .ROUTE .COMPLEX Qty: 90 3RF Dose Instruction: TAKE ONE TABLET BY MOUTH EVERY DAY AT BEDTIME FOR allergies Rx Instructions: TAKE ONE TABLET BY MOUTH EVERY DAY AT BEDTIME FOR allergies Xarelto 20 mg tablet See Rx Instructions .ROUTE .COMPLEX Qty: 30 3RF Dose Instruction: TAKE ONE TABLET BY MOUTH EVERY DAY with evening meal Rx Instructions: TAKE ONE TABLET BY MOUTH EVERY DAY with evening meal (DME) lancets [TRUEplus Lancets] 33 gauge misc See Rx Instructions .ROUTE .COMPLEX Qty: 100 2RF Dose Instruction: USE TO test blood glucose level TWICE DAILY DIRECTED Rx Instructions: USE TO test blood glucose level TWICE DAILY DIRECTED tizanidine 4 mg tablet See Rx Instructions .ROUTE .COMPLEX Qty: 60 0RF Dose Instruction: TAKE ONE TABLET BY MOUTH TWICE DAILY NEEDED FOR MUSCLE SPASMS MAY CAUSE DROWSINESS Rx Instructions: T
--- NOTE | 2022-07-16 13:13 | PC.NURSE ---
lab called for blood draw
--- NOTE | 2022-07-16 13:26 | PC.NURSE ---
respiratory notified of G
--- NOTE | 2022-07-16 13:27 | PC.NURSE ---
pt placed on 2 L NC
[2022-07-16 13:44] LABS: ABG Base Excess -1.6 mmol/L (-2.4-2.3); ABG Oxygen Saturation 94 % (90-100); ABG PCO2 36.9 mmhg (35.0-45.0); ABG PH 7.41 mmol/L (7.35-7.45); ABG PO2 65.7 mmhg (80-100); ABG TCO2 24.1 mmhg (23-27)
[2022-07-16 13:47] LABS: Allen's Test ACCEPTABLE; Oxygen 2LPM %; Source R RADIAL
[2022-07-16 14:05] LABS: Alanine Aminotransferase 37 U/L (12-78); Albumin Level 3.8 g/dl (3.5-5.0); Albumin/Globulin Ratio 1.3 (1.1-1.8); Alkaline Phosphatase 166 U/L (38-126); Aspartate Amino Transferase 47 U/L (14-36); Bilirubin,Total 0.5 mg/dl (0.2-1.3); Blood Urea Nitrogen 19 mg/dl (7-17); Calcium 8.7 mg/dl (8.4-10.2); Carbon Dioxide 22 mmol/L (22.0-30.0); Chloride 105 mmol/L (98-107); Creatinine Clearance Estimated 83 mL/min (50-200); Estimated Glomerular Filt Rate 49 ml/min (>60); GFR (African American) 60 ML/MIN (>60); Glucose 202 mg/dl (74-100); Sodium 136 mmol/L (136-145); Total Protein,Serum 6.8 g/dl (6.3-8.2)
[2022-07-16 14:08] LABS: Basophils % 0.9 % (0.1-2.0); Eosinophils % 0.2 % (0.1-12.0); Hematocrit 44.3 % (37.0-47.0); Hemoglobin 14.7 g/dL (12.2-16.2); Lymphocytes % 24.5 % (10-50); Mean Corpuscular HGB Conc 33.1 g/dL (31.8-35.4); Mean Corpuscular Hemoglobin 28.6 pg (27.0-31.2); Mean Corpuscular Volume 86.5 fl (81-99); Mean Platelet Volume 9.9 fl (7.4-10.4); Monocytes # 0.4 K/mm3 (0.1-1.0); Monocytes % 9.8 % (1.7-9.3); Neutrophils # 2.7 K/mm3 (1.8-7.8); Neutrophils % 64.6 % (37.0-80.0); Platelet Count 159 K/mm3 (142-424); Red Blood Count 5.13 M/mm3 (4.20-5.40); White Blood Count 4.2 K/mm3 (4.8-10.8)
--- NOTE | 2022-07-16 14:16 | PC.NURSE ---
pt requesting something for her head , new med orders given
--- NOTE | 2022-07-16 14:48 | PC.NURSE ---
house called for bed
--- NOTE | 2022-07-16 15:22 | PC.NURSE ---
pt in bed sleeping, nothing needed at this time
--- NOTE | 2022-07-16 15:31 | PC.NURSE ---
report called to Katie SOTO
--- NOTE | 2022-07-16 16:06 | PC.NURSE ---
patient arrived to floor at this time
--- NOTE | 2022-07-16 17:39 | EXP.HP ---
History of Present Illness *Admission Date: 07/16/22 *Reason for visit:: dyspnea, cough, diarrhea *History of present illness: Ms. Stallings is a 67-year-old female with history of COPD, CHF, tobacco dependence (half pack a day), neuropathy, and diabetes who was brought in by ambulance from home. States that she has been sick for over 2 weeks. Symptoms have worsened over the past 3 to 4 days however. Complains of shortness of breath, wheeze, mildly productive cough with congestion. Rare vomiting, daily nausea with daily diarrhea. She has become more weak and noted a fever at home up to 103 yesterday. Difficulty keeping down solids since Sunday, tolerating fair p.o. fluids. Was tested in the office on 07/07 with a respiratory panel that was negative. Treated with a Z-Ambrose starting on 1212. Symptoms have not improved. Using her inhalers at home with no benefit. On arrival to the ER, eval initiated which found her to be positive for COVID. Patient has an oxygen requirement that is new. Necessitating admission, medicine consulted for further management. After arriving to the floor, dk Stallings states that she still feels somewhat short of breath but is stable on 2 L nasal cannula. Is wheezy on exam, will initiate another breathing treatment. No vomiting or diarrhea since admission. Afebrile and hemodynamically stable. [facility] Disclaimer: The information contained in this section may have been updated after the patient was seen, as this information can be updated by other users. Medical History CAD (coronary artery disease) Cardiac pacemaker in situ COPD (chronic obstructive pulmonary disease) Diabetes (~06/2020) Fatigue HHD (hypertensive heart disease) Hyperlipemia On statin therapy PAF (paroxysmal atrial fibrillation) Surgical History History of arthroplasty of right knee Hx of cholecystectomy Hx of tonsillectomy Family History Diabetes Coronary artery disease Hyperlipidemia Cancer Hypertension Social History Smoking Status: Former smoker pack-years: 30 second hand exposure: Yes alcohol intake: never substance use type: denies use current occupational status: retired Travel in the last 8 weeks: None household members: none housing: house marital status: number of children: 0 current occupational exposures/hazards: No caffeine: Yes Review of Systems Review of Systems Review of systems (narrative): 14 point review of systems performed, pertinent positives and negatives as per HPI Constitutional Constitutional: Reports weakness *Musculoskeletal Musculoskeletal: Denies numbness *Neurologic Neurologic: Denies numbness and Reports weakness Meds Home Medications and Allergies Home Medications Medication Instructions Recorded Confirmed Type losartan 25 mg tablet 1 tab PO DAILY Hypertension 06/18/19 07/07/22 History trazodone 50 mg tablet 50 mg PO HS mood 02/25/21 07/07/22 History blood sugar diagnostic (Easy Touch #100 ea 10/21/21 07/07/22 Rx Test Strip) magnesium oxide See Rx Instructions .Route 11/03/21 07/07/22 Rx .COMPLEX #90 ea fluticasone propionate 50 1 spray intranasal DAILY #16 grams 01/17/22 07/07/22 Rx mcg/actuation nasal spray,suspension (Flonase Allergy Relief) albuterol sulfate 90 mcg/actuation 1 inh inhalation Q6H PRN shortness 04/19/22 07/16/22 Rx aerosol inhaler of breath or wheezing 90 days #8.5 grams lancets 33 gauge (TRUEplus Lancets) #100 ea 06/09/22 07/07/22 Rx diazepam 5 mg tablet 5 mg PO BID #60 tabs 07/07/22 07/07/22 Rx ondansetron HCl 4 mg tablet 4 mg PO Q8H PRN nausea and 07/07/22 07/07/22 Rx vomiting #30 tabs azithromycin 250 mg tablet See Rx Instructions PO .COMPLEX #6 07/11/22 Rx (Zithromax Z-Ambrose) tabs chlorpheniram
[2022-07-16 18:29] LABS: POC Glucose,Bedside 320 (70-110)
[2022-07-16 21:34] LABS: POC Glucose,Bedside 430 (70-110)
[2022-07-17] VITALS (9 sets, daily range): BP systolic 117–144; BP diastolic 58–79; PULSE 65–82; RESP 18–22; TEMP 36.6–37.1; O2SAT 92–96; BMI 34.7; BMI 34.6
--- NOTE | 2022-07-17 04:57 | PC.NURSE ---
NO ACUTE CHANGES SINCE PREVIOUS ASSESSMENT. PT HAS RESTED WELL THIS SHIFT. NO C/O SHORTNESS OF BREATH THIS SHIFT. AMBULATING TO THE BATHROOM WITH STANDBY ASSIST. TOLERATING 2L NASAL CANNULA WELL. PT HAS C/O NAUSEA X1 THIS SHIFT AND WAS MEDICATED PER SEP. CALL LONG WITHIN REACH.
[2022-07-17 05:20] LABS: POC Glucose,Bedside 360 (70-110)
[2022-07-17 06:59] LABS: Chloride 108 mmol/L (98-107)
[2022-07-17 07:00] LABS: Potassium 4.5 mmoL/L (3.5-5.1); Sodium 136 mmol/L (136-145)
[2022-07-17 07:02] LABS: Alanine Aminotransferase 31 U/L (12-78); Alkaline Phosphatase 131 U/L (38-126); Anion Gap 9.5 mEq/L (5-15); Aspartate Amino Transferase 34 U/L (14-36); Bilirubin,Total 0.2 mg/dl (0.2-1.3); Blood Urea Nitrogen 20 mg/dl (7-17); Carbon Dioxide 23 mmol/L (22.0-30.0); Creatinine Clearance Estimated 89 mL/min (50-200); Estimated Glomerular Filt Rate 55 ml/min (>60); GFR (African American) 67 ML/MIN (>60)
[2022-07-17 07:03] LABS: Albumin Level 3.2 g/dl (3.5-5.0); Albumin/Globulin Ratio 1.2 (1.1-1.8); Calcium 8.5 mg/dl (8.4-10.2); Globulin 2.7 g/dL (1.3-3.2); Glucose 327 mg/dl (74-100); Total Protein,Serum 5.9 g/dl (6.3-8.2)
[2022-07-17 07:07] LABS: Hemoglobin A1C 10.2 % (4.0-6.0)
[2022-07-17 07:15] LABS: Basophils % 0.5 % (0.1-2.0); Hematocrit 40.7 % (37.0-47.0); Hemoglobin 13.4 g/dL (12.2-16.2); Lymphocytes # 0.6 K/mm3 (0.7-4.5); Lymphocytes % 18.7 % (10-50); Mean Corpuscular HGB Conc 32.9 g/dL (31.8-35.4); Mean Corpuscular Hemoglobin 28.2 pg (27.0-31.2); Mean Platelet Volume 9.8 fl (7.4-10.4); Monocytes # 0.2 K/mm3 (0.1-1.0); Monocytes % 7.7 % (1.7-9.3); Neutrophils # 2.2 K/mm3 (1.8-7.8); Neutrophils % 73.2 % (37.0-80.0); Platelet Count 164 K/mm3 (142-424); Red Blood Count 4.73 M/mm3 (4.20-5.40); Red Cell Distribution Width 14.6 % (11.5-17.5)
--- NOTE | 2022-07-17 09:01 | HMH.OTEV ---
OT Inpatient Evaluation Rehab OT IP Evaluation Start: 07/17/22 08:09 Freq: ONCE Status: Active Protocol: Document 07/17/22 08:56 ERICKA (Rec: 07/17/22 08:58 ERICKA [id number]) Rehab OT IP Assessment Subjective History Ms. Stallings is a 67-year-old female with history of COPD, CHF, tobacco dependence (half pack a day), neuropathy, and diabetes who was brought in by ambulance from home. States that she has been sick for over 2 weeks. Symptoms have worsened over the past 3 to 4 days however. Complains of shortness of breath, wheeze, mildly productive cough with congestion. Rare vomiting, daily nausea with daily diarrhea. She has become more weak and noted a fever at home up to 103 yesterday. Difficulty keeping down solids since Sunday, tolerating fair p.o. fluids. Was tested in the office on 07/07 with a respiratory panel that was negative. Treated with a Z- Ambrose starting on 1213. Symptoms have not improved. Using her inhalers at home with no benefit. On arrival to the ER, eval initiated which found her to be positive for COVID. Patient has an oxygen requirement that is new . Necessitating admission, medicine consulted for further management. After arriving to the floor, dk Stallings states that she still feels somewhat short of breath but is stable on 2 L nasal cannula. Is wheezy on exam, will initiate another breathing treatment. No vomiting or diarrhea since admission. Afebrile and hemodynamically stable. Patient is oriented x4. Lives alone in a house with 2-3 JT.
--- NOTE | 2022-07-17 09:23 | HMH.PTEV ---
Physical Therapy Evaluation Rehab PT IP Evaluation Start: 07/17/22 08:09 Freq: ONCE Status: Active Protocol: Document 07/17/22 09:00 ASHLEE (Rec: 07/17/22 09:23 ASHLEE [id number]) Subjective/History History History 67 yowf adm to [facility] with COVID- 19 and increased SOA. She reports she lives alone, 2-3 steps to enter the home and she is generally independent with all mobility without AD prior to adm. Subjective Subjective Pt c/o feeling generally tired and weak, but otherwise well. Rehab PT IP Eval Objective Appearance Patient Behavior Appropriate Patient Orientation Person,Place,Time Difficulty following instructions none Speech Pattern Clear Ambulation Patient Able to Ambulate Yes Ambulation Observation IP General Gait Pattern Observation No Deviations/Normal Ambulation Distance (feet) 40 Ambulation Assistive Device None Ambulation Ability Independent Balance Ability to Arise Able, uses arms to help Sitting Balance Steady, safe Standing Balance Narrow stance w/o support Dynamic Sitting Balance Ability Good Dynamic Standing Balance Ability Good Transfers Bed Transfer Ability Independent Chair Transfer Ability Independent Sit to Stand Bed Transfer Ability Independent Sit to Stand Chair Transfer Ability Independent ROM All Extremities PT ROM Status WFL MMT All Extremities PT MMT WFL Rehab PT IP prob,goals,plan Problems Date of Evaluation: 07/17/22 Discharge Plan PT Discharge Plan Pt currently appears to be at baseline for all mobility, she is appropriate to return home once medically stable. G -code Required No Eval Complexity Eval Charge Codes 07889 - Moderate Complexity PHYSICIAN CERTIFICATION: I certify the specified therapy services for Yaritza Stallings are required, authorized, and reviewed every 30 days.
--- NOTE | 2022-07-17 09:54 | EXP.ACUTE.PN ---
Subjective *Date: 07/17/22 *Time: 17:18 Medical Exam Vital signs and Labs for Last 24 Hours: Vital Signs Temp Pulse Pulse Resp BP BP Pulse Ox 07/17/22 08:00 98.8 F 78 20 130/58 L 96 07/17/22 06:27 70 07/17/22 06:27 70 07/17/22 06:27 92 L 07/17/22 03:35 98.4 F 70 22 124/69 93 L 07/17/22 00:00 82 07/17/22 00:00 81 07/16/22 23:48 97.9 F 70 20 127/69 93 L 07/16/22 19:32 98.6 F 70 20 142/68 H 95 07/16/22 18:47 07/16/22 18:47 81 07/16/22 18:46 83 07/16/22 16:16 98.9 F 68 18 146/55 H 91 L 07/16/22 15:37 98.3 F 70 20 139/73 07/16/22 15:30 70 139/73 93 L 07/16/22 15:01 70 141/76 H 95 07/16/22 14:31 70 141/72 H 93 L 07/16/22 14:03 132/75 07/16/22 13:31 70 136/74 93 L 07/16/22 13:23 69 135/75 95 07/16/22 13:23 88 L 07/16/22 13:25 77 07/16/22 13:25 74 07/16/22 13:25 94 L 07/16/22 13:03 72 18 114/75 93 L 07/16/22 12:30 72 18 110/72 94 L 07/16/22 12:16 71 91 L 07/16/22 12:10 98.3 F 75 22 131/73 93 L FiO2 07/17/22 08:00 07/17/22 06:27 07/17/22 06:27 07/17/22 06:27 07/17/22 03:35 07/17/22 00:00 07/17/22 00:00 07/16/22 23:48 07/16/22 19:32 07/16/22 18:47 28 07/16/22 18:47 07/16/22 18:46 07/16/22 16:16 07/16/22 15:37 07/16/22 15:30 07/16/22 15:01 07/16/22 14:31 07/16/22 14:03 07/16/22 13:31 07/16/22 13:23 07/16/22 13:23 07/16/22 13:25 07/16/22 13:25 07/16/22 13:25 07/16/22 13:03 07/16/22 12:30 07/16/22 12:16 07/16/22 12:10 Intake and Output 07/16/22 07/17/22 07/17/22 23:59 07:59 15:59 Intake Total 240 / 240 360 / 360 Output Total 0 / 0 0 / 0 Balance 240 / 240 360 / 360 Intake: Intake, Oral Amount 240 / 240 360 / 360 Output: Output, Urine Amount 0 / 0 0 / 0 Other: Number of Unmeasured Voids 1 1 Weight 105.942 kg 106.339 kg Patient Weight 07/17/22 23:59 Weight 106.339 kg Laboratory Results - last 24 hr 07/16/22 12:11: SARS-CoV-2 (PCR) Detected A, Influenza A Untype (PCR) Not detected, Influenza Type B (PCR) Not detected 07/16/22 13:15: Specimen Source R radial, O2 % 2lpm, ABG pH 7.41, ABG pCO2 36.9, ABG pO2 65.7 L, ABG HCO3 23.0, ABG Total CO2 24.1, ABG O2 Saturation 94, ABG Base Excess -1.6, Roman Test Acceptable 07/16/22 13:46: WBC 4.2 L, RBC 5.13, Hgb 14.7, Hct 44.3, MCV 86.5, MCH 28.6, MCHC 33.1, RDW 15.0, Plt Count 159, MPV 9.9, Neut % (Auto) 64.6, Lymph % (Auto) 24.5, [place] % (Auto) 9.8 H, Eos % (Auto) 0.2, Baso % (Auto) 0.9, Neut # (Auto) 2.7, Lymph # (Auto) 1.0, [place] # (Auto) 0.4, Eos # (Auto) 0.0, Baso # (Auto) 0.0 12/18/22 13:46: Sodium 136, Potassium 4.0, Chloride 105, Carbon Dioxide 22, Anion Gap 13.0, BUN 19 H, Creatinine 1.10 H, Estimated Creat Clear 83, Estimated GFR 49 L, Est GFR ( Amer) 60, Glucose 202 H, Calcium 8.7, Total Bilirubin 0.5, AST 47 H, ALT 37, Alkaline Phosphatase 166 H, Total Protein 6.8, Albumin 3.8, Globulin 3.0, Albumin/Globulin Ratio 1.3 07/16/22 13:46: Lactate 1.0 07/16/22 18:21: POC Glucose 320 H* 07/16/22 21:16: POC Glucose 430 H* 07/17/22 05:07: POC Glucose 360 H* 07/17/22 05:53: WBC 3.0 L D, RBC 4.73, Hgb 13.4, Hct 40.7, MCV 86.0, MCH 28.2, MCHC 32.9, RDW 14.6, Plt Count 164, MPV 9.8, Neut % (Auto) 73.2, Lymph % (Auto) 18.7, [place] % (Auto) 7.7, Eos % (Auto) 0.0 L, Baso % (Auto) 0.5, Neut # (Auto) 2.2, Lymph # (Auto) 0.6 L, [place] # (Auto) 0.2, Eos # (Auto) 0.0, Baso # (Auto) 0.0 07/17/22 05:53: Sodium 136, Potassium 4.5, Chloride 108 H, Carbon Dioxide 23, Anion Gap 9.5, BUN 20 H, Creatinine 1.00, Estimated Creat Clear 89, Estimated GFR 55 L, Est GFR ( Amer) 67, Glucose 327 H D, Calcium 8.5, Magnesium 2.0, Total Bilirubin 0.2, AST 34 D, ALT 31, Alkaline Phosphatase 131 H, Total Protein 5.9 L, Albumin 3.2 L D, Globulin 2.7, Albumin/Globulin Ratio 1.2 07/17/22 05:53: Hemoglob
[2022-07-17 13:32] LABS: POC Glucose,Bedside 297 (70-110)
--- NOTE | 2022-07-17 14:07 | CT_ITS ---
FINAL REPORT TECHNIQUE: Axial images were obtained from the lung apex to the mid abdomen by computed tomography. Coronal reformatted images were obtained. This study was performed with techniques to keep radiation doses as low as reasonably achievable, (ALARA). Individualized dose reduction techniques using automated exposure control or adjustment of mA and/or kV according to the patient''s size were employed. CLINICAL HISTORY: eval for pneumonia, pulmonary congestion COMPARISON: June 15, 2021 FINDINGS: There are postoperative changes from presumed right thyroid lobectomy. A left subclavian pacer is present. There are mildly enlarged left prevascular lymph nodes including a 21 mm left prevascular lymph node, somewhat larger. These are nonspecific and favor reactive. There is no axillary adenopathy. There is no hilar or mediastinal adenopathy. Heart size is normal. There is no pericardial or pleural effusion. There are mild changes of emphysema with mild pulmonary scarring. There are mild patchy pulmonary ground-glass opacities which may represent edema versus mild pneumonia. There is lingular atelectasis. Limited images of the upper abdomen demonstrate postoperative changes from cholecystectomy. The liver is fatty infiltrated. There are 2 right adrenal nodules consistent with adenomas. There is a less than 3 mm nonobstructing left renal stone. IMPRESSION: Mild patchy pulmonary ground-glass opacities may represent edema versus mild pneumonia. Reviewed, Interpreted and Dictated by Vickey Christianson III, MD Transcribed by June Sarmiento Authenticated and [facility]
[2022-07-17 14:10] LABS: Microscopic, Urine URINE MICROSCOPIC (MICROSCOPIC)
[2022-07-17 14:41] LABS: Appearance,Urine CLEAR (Clear); Bilirubin,Urine Negative (Negative); Blood, Urine TRACE-I (Negative); Color,Urine YELLOW (Yellow); Glucose,Urine (UA) 3+ (Negative); Ketones,Urine Negative (Negative); Leukocyte Esterase,Urine Negative (Negative); Nitrate,Urine Negative (Negative); Protein,Urine TRACE (Negative); Specific Gravity, Urine >= 1.030 (1.005-1.030); Urobilinogen,Urine 0.2 EU/dl (0.2)
[2022-07-17 14:54] LABS: Bacteria,Urine Trace /lpf; RBC,Urine Occasional #/hpf (0-3); Yeast,Urine 1+ /lpf
--- NOTE | 2022-07-17 18:49 | PC.NURSE ---
Pt remians on 4 L NC at this time. No acute changes. VSS. No c/o's at this time. CB in reach.
[2022-07-17 20:53] LABS: POC Glucose,Bedside 372 (70-110)
[2022-07-18] VITALS (11 sets, daily range): BP systolic 111–138; BP diastolic 55–74; PULSE 48–78; RESP 18–22; TEMP 36.6–37.2; O2SAT 92–96; BMI 35.4
--- NOTE | 2022-07-18 05:40 | PC.NURSE ---
Sputum sample sent to lab.
[2022-07-18 06:30] LABS: POC Glucose,Bedside 267 (70-110)
--- NOTE | 2022-07-18 06:48 | INFXCTL.NOTE ---
Pt has tolerated 4 L nc well with sats >90% while at rest. Pt does drop quickly to mid 80s and states she feels SOA with exertion. Pt c/o a sore throat and hospitalist ordered phenol throat spray, pt states favorable results. Pt has ex wheezing heard t/o lungs. Call light within reach.
[2022-07-18 06:59] LABS: Basophils % 0.2 % (0.1-2.0); Hematocrit 38.3 % (37.0-47.0); Hemoglobin 12.5 g/dL (12.2-16.2); Lymphocytes # 1.2 K/mm3 (0.7-4.5); Mean Corpuscular HGB Conc 32.6 g/dL (31.8-35.4); Mean Corpuscular Hemoglobin 28.3 pg (27.0-31.2); Mean Corpuscular Volume 86.8 fl (81-99); Monocytes # 0.6 K/mm3 (0.1-1.0); Monocytes % 6.6 % (1.7-9.3); Neutrophils # 6.6 K/mm3 (1.8-7.8); Neutrophils % 79.3 % (37.0-80.0); Platelet Count 190 K/mm3 (142-424); Red Blood Count 4.41 M/mm3 (4.20-5.40); Red Cell Distribution Width 14.7 % (11.5-17.5); White Blood Count 8.4 K/mm3 (4.8-10.8)
[2022-07-18 07:03] LABS: Chloride 107 mmol/L (98-107); Potassium 4.3 mmoL/L (3.5-5.1); Sodium 136 mmol/L (136-145)
[2022-07-18 07:05] LABS: Alanine Aminotransferase 32 U/L (12-78); Alkaline Phosphatase 118 U/L (38-126); Aspartate Amino Transferase 31 U/L (14-36); Bilirubin,Total 0.2 mg/dl (0.2-1.3); Blood Urea Nitrogen 28 mg/dl (7-17); Creatinine Clearance Estimated 83 mL/min (50-200); Estimated Glomerular Filt Rate 49 ml/min (>60); GFR (African American) 60 ML/MIN (>60)
[2022-07-18 07:06] LABS: Albumin Level 3.2 g/dl (3.5-5.0); Albumin/Globulin Ratio 1.3 (1.1-1.8); Anion Gap 9.3 mEq/L (5-15); Calcium 8.9 mg/dl (8.4-10.2); Carbon Dioxide 24 mmol/L (22.0-30.0); Globulin 2.5 g/dL (1.3-3.2); Glucose 260 mg/dl (74-100); Total Protein,Serum 5.7 g/dl (6.3-8.2)
--- NOTE | 2022-07-18 10:14 | EXP.PULM.CON ---
History of Present Illness History of present illness: Ms. Stallings is a 67-year-old female greater than [id number]-cimc smoking history carries a diagnosis of COPDusing Trelegy inhaler at home, not using any oxygen therapy presented hospital with worsening respiratory distress and worsening cough productive phlegm and wheezing and was found to be positive for COVID-19 pneumonia and pulmonary was called for further evaluation. [facility] Disclaimer: The information contained in this section may have been updated after the patient was seen, as this information can be updated by other users. Medical History CAD (coronary artery disease) Cardiac pacemaker in situ COPD (chronic obstructive pulmonary disease) Diabetes (~06/2020) Fatigue HHD (hypertensive heart disease) Hyperlipemia On statin therapy PAF (paroxysmal atrial fibrillation) Surgical History History of arthroplasty of right knee Hx of cholecystectomy Hx of tonsillectomy Family History Diabetes Coronary artery disease Hyperlipidemia Cancer Hypertension Social History Smoking Status: Former smoker pack-years: 30 second hand exposure: Yes alcohol intake: never substance use type: denies use current occupational status: retired Travel in the last 8 weeks: None household members: none housing: house marital status: number of children: 0 current occupational exposures/hazards: No caffeine: Yes Review of Systems Constitutional Constitutional: Reports fatigue and Reports weakness Eyes Eyes: Denies eye discharge, Denies dry eyes, Denies irritation and Denies itchy eyes ENT Ears, Nose, Mouth, and Throat: Denies epistaxis, Denies facial pain, Denies lip swelling and Denies throat swelling *Cardiovascular Cardiovascular: Reports dyspnea and Reports dyspnea on exertion *Respiratory Respiratory: Reports chest congestion, Reports cough, Reports dyspnea, Reports dyspnea on exertion, Reports excessive phlegm production and Reports wheezing *Gastrointestinal Gastrointestinal: Denies abdominal pain, Denies belching and Denies cramping *Musculoskeletal Musculoskeletal: Denies numbness *Neurologic Neurologic: Denies numbness and Reports weakness Psychiatric Psychiatric: Denies homicidal ideation and Denies suicidal ideation Endocrine Endocrine: Reports fatigue and Denies heat intolerance Hematologic/Lymphatic Hematologic/Lymphatic: Denies easy bleeding and Denies lymphadenopathy Allergic/Immunologic Allergic/Immunologic: Denies itchy eyes, Denies lip swelling, Denies throat swelling and Reports wheezing Pulmonology Exam Inpatient Vital signs and Labs for Last 24 Hours: Temp Pulse Resp BP Pulse Ox FiO2 98.5 F 71 20 117/55 L 94 L 28 07/18/22 08:00 07/18/22 08:00 07/18/22 08:00 07/18/22 08:00 07/18/22 08:00 07/16/22 18:47 Laboratory Results - last 24 hr 07/16/22 13:38: Urine Color Yellow, Urine Appearance Clear, Urine pH 6.0, Ur Specific [place] >= 1.030, Urine Protein Trace, Urine Glucose (UA) 3+, Urine Ketones Negative, Urine Blood Trace-i, Urine Nitrate Negative, Urine Bilirubin Negative, Urine Urobilinogen 0.2, Ur Leukocyte Esterase Negative, Urine RBC Occasional, Urine WBC 3-5, Ur Squamous Epith Cells 10-20, Urine Bacteria Trace, Urine Yeast 1+ 07/17/22 10:25: POC Glucose 297 H 07/17/22 20:14: POC Glucose 372 H* 07/18/22 06:20: POC Glucose 267 H 07/18/22 06:21: Sodium 136, Potassium 4.3, Chloride 107, Carbon Dioxide 24, Anion Gap 9.3, BUN 28 H D, Creatinine 1.10 H, Estimated Creat Clear 83, Estimated GFR 49 L, Est GFR ( Amer) 60, Glucose 260 H, Calcium 8.9, Total Bilirubin 0.2, AST 31, ALT 32, Alkaline Phosphatase 118, Total Protein 5.7 L, Albumin 3.2 L, Globulin 2.5, Albumin/Globulin Ratio 1.3 07/18/22 06:21: WBC 8.4 D, RBC 4.41,
[2022-07-18 13:01] LABS: POC Glucose,Bedside 317 (70-110)
--- NOTE | 2022-07-18 17:55 | EXP.PN ---
Subjective *Date: 07/18/22 *Time: 17:55 Interval history: Patient feels a little better today, still short of breath and has a cough. Exam Data for Last 24 hours Vital signs and Labs for Last 24 Hours: Temp Pulse Resp BP Pulse Ox FiO2 98.4 F 72 22 137/74 93 L 28 07/18/22 16:00 07/18/22 16:00 07/18/22 16:00 07/18/22 16:00 07/18/22 16:00 07/16/22 18:47 Laboratory Results - last 24 hr 07/17/22 20:14: POC Glucose 372 H* 07/18/22 06:20: POC Glucose 267 H 07/18/22 06:21: Sodium 136, Potassium 4.3, Chloride 107, Carbon Dioxide 24, Anion Gap 9.3, BUN 28 H D, Creatinine 1.10 H, Estimated Creat Clear 83, Estimated GFR 49 L, Est GFR ( Amer) 60, Glucose 260 H, Calcium 8.9, Total Bilirubin 0.2, AST 31, ALT 32, Alkaline Phosphatase 118, Total Protein 5.7 L, Albumin 3.2 L, Globulin 2.5, Albumin/Globulin Ratio 1.3 07/18/22 06:21: WBC 8.4 D, RBC 4.41, Hgb 12.5, Hct 38.3, MCV 86.8, MCH 28.3, MCHC 32.6, RDW 14.7, Plt Count 190, MPV 10.0, Neut % (Auto) 79.3, Lymph % (Auto) 14.0, [place] % (Auto) 6.6, Eos % (Auto) 0.0 L, Baso % (Auto) 0.2, Neut # (Auto) 6.6, Lymph # (Auto) 1.2, [place] # (Auto) 0.6, Eos # (Auto) 0.0, Baso # (Auto) 0.0 07/18/22 12:45: POC Glucose 317 H* I & O for Last 24 hours: Intake & Output 07/15/22 07/16/22 07/17/22 07/18/22 23:59 23:59 23:59 23:59 Intake Total 240 / 240 1080 / 1080 960 / 960 Output Total 0 / 0 575 / 575 0 / 0 Balance 240 / 240 505 / 505 960 / 960 Weight 105.942 kg 106 kg 108.499 kg Microbiology Reports for the Last 24 Hours: Microbiology 07/18/22 05:30 Sputum - Expectorated Sputum Gram Stain - Final 07/16/22 13:46 Blood Blood Culture - Preliminary NO GROWTH AFTER 48 HOURS 07/16/22 13:46 Blood Blood Culture - Preliminary NO GROWTH AFTER 48 HOURS Constitutional Constitutional: mild distress (Dyspnea), obese, chronically ill appearing and cooperative *Routine HEENT Exam Head: Present normocephalic and atraumatic Eye: Present EOMI and PERRL ENT: Present mucous membranes moist and oropharynx clear *Routine Neck Exam Neck: Present supple and full ROM *Routine Respiratory Exam Respiratory: Present CTA bilaterally, wheezes (Musical wheezes appreciated diffusely) and normal respiratory effort (Slight increased work of breathing); Absent accessory muscle use, respiratory distress or able to speak in complete sentences *Routine Cardiovascular Exam Cardiovascular: Present RRR, Normal S1 and Normal S2; Absent murmur *Routine Abdominal Exam Abdominal: Present soft and normoactive bowel sounds; Absent tenderness, distended, rebound or guarding *Routine Extremities Exam Extremities: Present full ROM, pulses intact and normal capillary refill; Absent edema or tenderness *Routine Neurological Exam Neurological: Present alert, oriented X3, CN II-XII intact, moving all extremities, normal tone and normal speech; Absent sensory deficit or motor deficit Routine Psychiatric Exam Psychiatric: Present normal affect, normal thought process and cooperative Assessment and Plan *Assessment and plan (1) Pneumonia due to COVID-19 virus: Status: Acute Category: Medical Code(s): U07.1 - COVID-19; J12.82 - Pneumonia due to coronavirus disease 2019 (2) Acute hypoxemic respiratory failure: Status: Acute Category: Medical Code(s): J96.01 - Acute respiratory failure with hypoxia (3) Acute kidney injury: Status: Acute Category: Medical Code(s): N17.9 - Acute kidney failure, unspecified (4) Tobacco dependence syndrome: Status: Chronic Category: Medical Code(s): F17.200 - Nicotine dependence, unspecified, uncomplicated (5) Diabetes: Status: Chronic Qualifiers: Diabetes mellitus complication status: with other specified complication 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
[2022-07-18 22:26] LABS: POC Glucose,Bedside 311 (70-110)
[2022-07-19] VITALS (8 sets, daily range): BP systolic 110–142; BP diastolic 66–67; PULSE 54–87; RESP 18–20; TEMP 36.6–36.7; O2SAT 89–97; BMI 35.9
[2022-07-19 01:31] LABS: POC Glucose,Bedside 393 (70-110)
--- NOTE | 2022-07-19 04:54 | PC.NURSE ---
PATIENT REMAINS ON AIRBORN/CONTACT PRECAUTIONS FOR COVID. 02 AT 4LNC. PERSISTANT DRY COUGH NOTED. EXPIRATORY WHEEZES NOTED BILAT LUNG KAMARA. BLD SUGARS RUN HIGH REQUIRING S/S INSULIN. VOICES NO C/O PAIN.
[2022-07-19 05:49] LABS: POC Glucose,Bedside 285 (70-110)
[2022-07-19 06:48] LABS: Chloride 107 mmol/L (98-107); Potassium 3.9 mmoL/L (3.5-5.1); Sodium 139 mmol/L (136-145)
[2022-07-19 06:51] LABS: Alanine Aminotransferase 36 U/L (12-78); Albumin Level 2.9 g/dl (3.5-5.0); Albumin/Globulin Ratio 1.3 (1.1-1.8); Alkaline Phosphatase 112 U/L (38-126); Anion Gap 8.9 mEq/L (5-15); Aspartate Amino Transferase 38 U/L (14-36); Blood Urea Nitrogen 25 mg/dl (7-17); Calcium 8.4 mg/dl (8.4-10.2); Carbon Dioxide 27 mmol/L (22.0-30.0); Creatinine Clearance Estimated 92 mL/min (50-200); Estimated Glomerular Filt Rate 55 ml/min (>60); GFR (African American) 67 ML/MIN (>60); Globulin 2.2 g/dL (1.3-3.2); Glucose 243 mg/dl (74-100); Total Protein,Serum 5.1 g/dl (6.3-8.2)
[2022-07-19 06:54] LABS: Bilirubin,Total 0.1 mg/dl (0.2-1.3)
[2022-07-19 07:40] LABS: Basophils % 0.4 % (0.1-2.0); Eosinophils % 0.1 % (0.1-12.0); Hematocrit 37.3 % (37.0-47.0); Hemoglobin 12.2 g/dL (12.2-16.2); Lymphocytes # 1.6 K/mm3 (0.7-4.5); Lymphocytes % 23.3 % (10-50); Mean Corpuscular HGB Conc 32.9 g/dL (31.8-35.4); Mean Corpuscular Hemoglobin 29.1 pg (27.0-31.2); Mean Corpuscular Volume 88.6 fl (81-99); Mean Platelet Volume 9.2 fl (7.4-10.4); Monocytes # 0.5 K/mm3 (0.1-1.0); Monocytes % 7.6 % (1.7-9.3); Neutrophils # 4.6 K/mm3 (1.8-7.8); Neutrophils % 68.6 % (37.0-80.0); Platelet Count 195 K/mm3 (142-424); Red Blood Count 4.21 M/mm3 (4.20-5.40); White Blood Count 6.7 K/mm3 (4.8-10.8)
--- NOTE | 2022-07-19 09:40 | EXP.PULM.PN ---
Subjective *Date: 07/19/22 *Time: 12:18 Interval history: No acute respiratory vents overnight. Patient denies any significant improvement in her respiratory status. Continues to have cough and productive phlegm. Pulmonology Exam Inpatient Vital signs and Labs for Last 24 Hours: Temp Pulse Resp BP Pulse Ox FiO2 97.9 F 70 20 142/66 H 94 L 36 07/19/22 07:30 07/19/22 07:30 07/19/22 07:30 07/19/22 07:30 07/19/22 07:30 07/18/22 18:25 Laboratory Results - last 24 hr 07/18/22 12:45: POC Glucose 317 H* 07/18/22 17:04: POC Glucose 393 H* 07/18/22 20:12: POC Glucose 311 H* 07/19/22 05:23: POC Glucose 285 H 07/19/22 06:11: Sodium 139, Potassium 3.9, Chloride 107, Carbon Dioxide 27, Anion Gap 8.9, BUN 25 H, Creatinine 1.00, Estimated Creat Clear 92, Estimated GFR 55 L, Est GFR ( Amer) 67, Glucose 243 H, Calcium 8.4, Total Bilirubin 0.1 L, AST 38 H, ALT 36, Alkaline Phosphatase 112, Total Protein 5.1 L, Albumin 2.9 L, Globulin 2.2, Albumin/Globulin Ratio 1.3 07/19/22 06:11: WBC 6.7, RBC 4.21, Hgb 12.2, Hct 37.3, MCV 88.6, MCH 29.1, MCHC 32.9, RDW 15.0, Plt Count 195, MPV 9.2, Neut % (Auto) 68.6, Lymph % (Auto) 23.3, [place] % (Auto) 7.6, Eos % (Auto) 0.1, Baso % (Auto) 0.4, Neut # (Auto) 4.6, Lymph # (Auto) 1.6, [place] # (Auto) 0.5, Eos # (Auto) 0.0, Baso # (Auto) 0.0 I & O for Labs for Last 24 Hours: Intake & Output 07/16/22 07/17/22 07/18/22 07/19/22 23:59 23:59 23:59 23:59 Intake Total 240 / 240 1080 / 1080 1320 / 1320 240 / 240 Output Total 0 / 0 575 / 575 250 / 250 1000 / 1000 Balance 240 / 240 505 / 505 1070 / 1070 -760 / -760 Weight 233 lb 9 oz 233 lb 11.04 oz 239 lb 3.2 oz 242 lb 3.2 oz Microbiology Reports for the Last 24 Hours: Microbiology 07/18/22 05:30 Sputum - Expectorated Sputum Gram Stain - Final 07/16/22 13:46 Blood Blood Culture - Preliminary NO GROWTH AFTER 48 HOURS 07/16/22 13:46 Blood Blood Culture - Preliminary NO GROWTH AFTER 48 HOURS Constitutional: Present moderate distress Head: Present normocephalic and atraumatic ENT: Present normal exam, normal oropharynx and mucous membranes moist Neck: Present normal inspection and full ROM Respiratory: Present prolonged expiratory phase, respiratory distress, rhonchi, wheezes, diminished air movement and able to speak in complete sentences; Absent accessory muscle use Cardiac: Present S1/S2, Tachycardia and radial pulses present GI: Present soft and distention; Absent tenderness or guarding Rectal (female): Present deferred (female): Present deferred Skin: Present intact; Absent cyanosis or jaundice Neuro: Present alert, awake and oriented x 3 Extremities: Present normal inspection; Absent clubbing or cyanosis Psychiatric: Present normal affect and cooperative Assessment and Plan *Assessment and plan (1) Acute hypoxemic respiratory failure: Status: Acute Category: Medical Code(s): J96.01 - Acute respiratory failure with hypoxia (2) Pneumonia due to COVID-19 virus: Status: Acute Category: Medical Code(s): U07.1 - COVID-19; J12.82 - Pneumonia due to coronavirus disease 2019 (3) COPD (chronic obstructive pulmonary disease) with acute bronchitis: Status: Chronic Category: Medical Code(s): J44.0 - Chronic obstructive pulmonary disease with (acute) lower respiratory infection; J20.9 - Acute bronchitis, unspecified Plan #Acute hypoxic respiratory failure: #COVID-19 pneumonia: Greater than 33-[id number] smoking history carries a diagnosis of COPD including inhaler at home, not using any oxygen therapy presented hospital with worsening respiratory distress and worsening cough productive phlegm and wheezing and was found to be positive for COVID-19 pneumonia and pulmonary was called for further evaluation. As per the patient received 2 doses of COVID-19 vaccine trip did not remember her recent vaccination dose Blood gas from this
--- NOTE | 2022-07-19 10:39 | PC.NURSE ---
courtesy vickey bolanos: pt had no requests at this time.
--- NOTE | 2022-07-19 10:50 | SW/DCPLANNER ---
Addendum entered by Mirna Ledesma 07/19/22 14:00: [facility] stated that they can accept this patient. Patient will discharge today. Original Note: The plan for this patient is to discharge home today. PT/OT evaluated this patient and stated that patient is independent to discharge home with home health services. Patient information/order has been faxed to [facility]. I will follow up with [facility] once patient information/order is reviewed.
--- NOTE | 2022-07-19 11:10 | EXP.DC.SUM ---
General Admission date:: 07/18/22 Discharge date: 07/19/22 HPI HPI HPI: Ms. Stallings is a 67-year-old female with history of COPD, CHF, tobacco dependence (half pack a day), neuropathy, and diabetes who was brought in by ambulance from home. States that she has been sick for over 2 weeks. Symptoms have worsened over the past 3 to 4 days however. Complains of shortness of breath, wheeze, mildly productive cough with congestion. Rare vomiting, daily nausea with daily diarrhea. She has become more weak and noted a fever at home up to 103 yesterday. Difficulty keeping down solids since Sunday, tolerating fair p.o. fluids. Was tested in the office on 07/07 with a respiratory panel that was negative. Treated with a Z-Ambrose starting on 1212. Symptoms have not improved. Using her inhalers at home with no benefit. On arrival to the ER, eval initiated which found her to be positive for COVID. Patient has an oxygen requirement that is new. Necessitating admission, medicine consulted for further management. After arriving to the floor, dk Stallings states that she still feels somewhat short of breath but is stable on 2 L nasal cannula. Is wheezy on exam, will initiate another breathing treatment. No vomiting or diarrhea since admission. Afebrile and hemodynamically stable. Hospital Course Hospital Course Hospital Course: Patient presented to the ER on 07/16 for shortness of breath and she was diagnosed with COPD exacerbation and COVID. Patient was treated with remdesivir and dexamethasone during 4-day admission, as well as DuoNebs, Trelegy, Singulair, and supplemental oxygen. Patient was weaned to 3 L by nasal cannula on day of discharge, and she will continue supplemental oxygen going home until follow-up with PCP early next week. Patient additionally had a small increase in her creatinine of 1.1 which resolved to 1.0 by day of discharge. Patient's type 2 diabetes is poorly controlled, as evidenced by an A1c of 10.2. Patient was given Lantus and sliding scale insulin during admission, although she says she cannot continue this at home as she cannot read insulin pens to make proper dosing adjustments. I will therefore add Januvia to her home medication regimen. Patient will continue prednisone taper, no other changes to home meds are made. Exam Data for Last 24 hours Vital signs and Labs for Last 24 Hours: Temp Pulse Resp BP Pulse Ox FiO2 97.9 F 70 20 142/66 H 89 L 36 07/19/22 07:30 07/19/22 07:30 07/19/22 07:30 07/19/22 07:30 07/19/22 09:57 07/18/22 18:25 Laboratory Results - last 24 hr 07/18/22 12:45: POC Glucose 317 H* 07/18/22 17:04: POC Glucose 393 H* 07/18/22 20:12: POC Glucose 311 H* 07/19/22 05:23: POC Glucose 285 H 07/19/22 06:11: Sodium 139, Potassium 3.9, Chloride 107, Carbon Dioxide 27, Anion Gap 8.9, BUN 25 H, Creatinine 1.00, Estimated Creat Clear 92, Estimated GFR 55 L, Est GFR ( Amer) 67, Glucose 243 H, Calcium 8.4, Total Bilirubin 0.1 L, AST 38 H, ALT 36, Alkaline Phosphatase 112, Total Protein 5.1 L, Albumin 2.9 L, Globulin 2.2, Albumin/Globulin Ratio 1.3 07/19/22 06:11: WBC 6.7, RBC 4.21, Hgb 12.2, Hct 37.3, MCV 88.6, MCH 29.1, MCHC 32.9, RDW 15.0, Plt Count 195, MPV 9.2, Neut % (Auto) 68.6, Lymph % (Auto) 23.3, [place] % (Auto) 7.6, Eos % (Auto) 0.1, Baso % (Auto) 0.4, Neut # (Auto) 4.6, Lymph # (Auto) 1.6, [place] # (Auto) 0.5, Eos # (Auto) 0.0, Baso # (Auto) 0.0 I & O for Last 24 hours: Intake & Output 07/16/22 07/17/22 07/18/22 07/19/22 23:59 23:59 23:59 23:59 Intake Total 240 / 240 1080 / 1080 1320 / 1320 240 / 240 Output Total 0 / 0 575 / 575 250 / 250 1000 / 1000 Balance 240 / 240 505 / 505 1070 / 1070 -760 / -760 Weight 105.942 kg 106 kg 108.499 kg 109.86 kg Microbiology Reports for the Last 24 Hours: Microbiology 07/18/22 05:30 Sputum - Expectorated Sputum Gram Stain - Final 07/16/22 13:46 Blood Blood Culture - Preliminary NO GROWTH AFTER 48 HOURS
[2022-07-20 01:21] LABS: POC Glucose,Bedside 305 (70-110)
== END 2022-07-19 15:16 | disposition home or self-care (01) | DRG 177 ==
LOC: ER 14:45 → 2ND 15:33
PROVIDERS: Admitting Provider Internal Medicine Adolescent Medicine; Emergency Provider Emergency Medicine; PCP Emergency Medicine; Visit Provider Emergency Medicine
DX: U07.1 COVID-19 (principal); J12.82 Pneumonia due to coronavirus disease 2019; J96.01 Acute respiratory failure with hypoxia; J44.1 Chronic obstructive pulmonary disease with (acute) exacerbation; N17.9 Acute kidney failure, unspecified; J44.0 Chronic obstructive pulmonary disease with (acute) lower respiratory infection; I25.10 Atherosclerotic heart disease of native coronary artery without angina pectoris; Z95.0 Presence of cardiac pacemaker; I48.0 Paroxysmal atrial fibrillation; E78.5 Hyperlipidemia, unspecified; Z96.651 Presence of right artificial knee joint; E11.42 Type 2 diabetes mellitus with diabetic polyneuropathy; I25.118 Atherosclerotic heart disease of native coronary artery with other forms of angina pectoris; E66.9 Obesity, unspecified; Z68.35 Body mass index [BMI] 35.0-35.9, adult; Z79.84 Long term (current) use of oral hypoglycemic drugs; F17.210 Nicotine dependence, cigarettes, uncomplicated
CPT/HCPCS: 36415; 71045; 71250; 80053; 81001; 82803; 82962; 83036; 83605; 83735; 85025; 87040; 87070; 87205; 94640; 94760; 97162; 97165; 99285; C9803; G0378; J0456; U0003; U0005

== ENCOUNTER 2022-07-20 10:40 | Inpatient (IN) | payer MEDICAID, MEDICARE, SELFPAY ==
[2022-07-20] VITALS (17 sets, daily range): BP systolic 113–157; BP diastolic 60–82; PULSE 70–75; RESP 18–25; TEMP 36.6–37.1; O2SAT 87–98; BMI 35.4; BMI 34.7
--- NOTE | 2022-07-20 11:11 | XR_ITS ---
FINAL REPORT CLINICAL HISTORY: soa COMPARISON: July 16, 2022 FINDINGS: There is a left subclavian pacemaker. The heart size is normal. The mediastinum is within normal limits. There is no acute cardiopulmonary process. There is no pleural effusion. There is no pneumothorax. The bony thorax is intact. IMPRESSION: No acute cardiopulmonary process. Reviewed, Interpreted and Dictated by Vickey Christianson III, MD Transcribed by Joe Chamberlain Authenticated and [facility]
--- NOTE | 2022-07-20 11:13 | ECG_ITS ---
APPROVED REPORT Exam: Resting ECG HR:69 bpm ECG Measurements Heart Rate 69 AXES MN 157 P 135 QRSd 82 QRS 49 QT 393 T 49 QTc 413 Conclusion ELECTRONIC ATRIAL PACEMAKER ABNORMAL RHYTHM ECG UNCONFIRMED REPORT Electronically signed by : Cristopher Ryder MD 07/20/2022 20:17:56
--- NOTE | 2022-07-20 11:14 | PC.NURSE ---
PT PLACED ON 2L/NC
--- NOTE | 2022-07-20 11:18 | PC.NURSE ---
DR GARDNER AT BEDSIDE FOR EVALUATION
[2022-07-20 11:20] LABS: Influenza A, PCR Not Detected (NotDetected); Influenza B, PCR Not Detected (NotDetected)
--- NOTE | 2022-07-20 11:20 | PC.NURSE ---
BARB MADRIGAL at
[2022-07-20 11:26] LABS: Basophils % 0.5 % (0.1-2.0); Eosinophils % 0.1 % (0.1-12.0); Hematocrit 43.6 % (37.0-47.0); Hemoglobin 13.7 g/dL (12.2-16.2); Lymphocytes # 1.5 K/mm3 (0.7-4.5); Mean Corpuscular HGB Conc 31.4 g/dL (31.8-35.4); Mean Corpuscular Hemoglobin 28.2 pg (27.0-31.2); Mean Corpuscular Volume 89.9 fl (81-99); Mean Platelet Volume 9.5 fl (7.4-10.4); Monocytes # 0.6 K/mm3 (0.1-1.0); Monocytes % 7.7 % (1.7-9.3); Neutrophils % 73.7 % (37.0-80.0); Platelet Count 278 K/mm3 (142-424); Red Blood Count 4.85 M/mm3 (4.20-5.40); Red Cell Distribution Width 14.9 % (11.5-17.5); White Blood Count 8.1 K/mm3 (4.8-10.8)
[2022-07-20 11:27] LABS: Chloride 103 mmol/L (98-107); Potassium 3.8 mmoL/L (3.5-5.1); Sodium 138 mmol/L (136-145)
--- NOTE | 2022-07-20 11:28 | HMH.EDGENADL ---
Discharge Plan Disposition Patient Disposition: Admitted As Inpatient Condition: Serious Chief Complaint: Shortness of Breath/Dyspnea Prescriptions Prescriptions: No Action (DME) Easy Touch Test Strip Strip See Rx Instructions .Route Qty: 100 3RF Rx Instructions: Test 3 times daily (DME) lancets [TRUEplus Lancets] 33 gauge misc See Rx Instructions .ROUTE .COMPLEX Qty: 100 2RF Dose Instruction: USE TO test blood glucose level TWICE DAILY DIRECTED Rx Instructions: USE TO test blood glucose level TWICE DAILY DIRECTED pantoprazole 40 mg tablet,delayed release (DR/EC) 40 mg PO DAILY Qty: 30 0RF oxycodone-acetaminophen [Percocet] 10-325 mg tablet 1 tab PO QID tizanidine 4 mg tablet 4 mg PO BID Rx Instructions: TAKE ONE TABLET BY MOUTH TWICE DAILY NEEDED FOR MUSCLE SPASMS MAY CAUSE DROWSINESS ropinirole 0.25 mg tablet 0.25 mg PO HSP PRN (Reason: RESTLESS LEGS) Rx Instructions: TAKE ONE TABLET BY MOUTH EVERY DAY AT BEDTIME FOR restless LEGS Xarelto 20 mg tablet 20 mg PO QPMWITHMEAL Rx Instructions: TAKE ONE TABLET BY MOUTH EVERY DAY with evening meal gabapentin 800 mg tablet 800 mg PO TID glipizide 10 mg tablet extended release 24hr 10 mg PO DAILY Rx Instructions: TAKE ONE TABLET BY MOUTH EVERY DAY montelukast 10 mg tablet 10 mg PO DAILY Rx Instructions: TAKE ONE TABLET BY MOUTH EVERY DAY AT BEDTIME FOR allergies aspirin 81 mg tablet,delayed release (DR/EC) 81 mg PO DAILY Rx Instructions: TAKE ONE TABLET BY MOUTH DAILY furosemide 40 mg tablet 40 mg PO DAILY Rx Instructions: TAKE ONE TABLET BY MOUTH EVERY DAY atorvastatin 40 mg tablet 40 mg PO HS fluoxetine 20 mg capsule 20 mg PO BID Rx Instructions: TAKE ONE CAPSULE BY MOUTH TWICE DAILY FOR MOOD Trelegy Ellipta 200-62.5-25 mcg blister with device 1 inh INHALATION DAILY diltiazem HCl 240 mg capsule,extended release 24 hr 240 mg PO DAILY bisoprolol fumarate 10 mg tablet 10 mg PO BID metformin 500 mg tablet 500 mg PO BID Rx Instructions: TAKE ONE TABLET BY MOUTH TWICE DAILY albuterol sulfate 90 mcg/actuation HFA aerosol inhaler 1 puff INHALATION Q6HP PRN (Reason: SOA) potassium chloride 20 mEq tablet,ER particles/crystals 20 meq PO DAILY Label Comments: TAKE ONE TABLET BY MOUTH EVERY DAY diazepam 5 mg Tablet 5 mg PO BID Januvia 25 mg tablet 25 mg PO DAILY Qty: 30 0RF prednisone 10 mg tablet 10 mg PO DIRECTED Qty: 11 0RF Rx Instructions: Take 2 tabs daily for 3 days, then 1 tab daily for 3 days, then 1/2 tab daily for 4 days Discharge ED Provider: Jann Gonzalez General Adult HPI General Chief complaint: Shortness of Breath/Dyspnea Stated complaint: sob, cough Time Seen by Provider: 07/20/22 10:50 Mode of Arrival: Wheelchair Limitations: No Limitations Description of Symptoms (Recalled from ER Triage Doc. by RN): PT C/O COUGH, CONGESTION AND SHORTNESS OF BREATH. DISCHARGED FROM [facility] YESTERDAY History of Present Illness HPI narrative: This is a 67-year-old female with history of COPD not on home oxygen, recently diagnosed with COVID-pneumonia and hospitalized, discharged 1 day prior to arrival, hypertension, hyperlipidemia, CHF, chronic renal insufficiency, CAD, hyperlipidemia who is presenting with shortness of breath. Patient states that she has not felt any better since discharge 1 day prior to arrival. Since that time, she has developed increased work of breathing, inability to catch her breath. Denies chest pain, nausea, vomiting, fevers, chills, new or productive cough, neurologic deficits, or any other concerning findings. Related Data Home Medications Medication Instructions Recorded Confirmed aspirin 81 mg tablet,delayed 81 mg PO DAILY heart health 07/16/22 07/16/22 release atorvastatin 40 mg tablet
[2022-07-20 11:30] LABS: Anion Gap 8.8 mEq/L (5-15); Blood Urea Nitrogen 23 mg/dl (7-17); Carbon Dioxide 30 mmol/L (22.0-30.0); Creatinine Clearance Estimated 91 mL/min (50-200); Estimated Glomerular Filt Rate 62 ml/min (>60); GFR (African American) 75 ML/MIN (>60)
[2022-07-20 11:31] LABS: Calcium 9.3 mg/dl (8.4-10.2); Glucose 266 mg/dl (74-100); Lactic Acid 1.6 mmol/L (0.7-2.1)
[2022-07-20 11:33] LABS: ABG HCO3 26.9 mmhg (22.0-26.0); ABG Oxygen Saturation 96 % (90-100); ABG PCO2 39.1 mmhg (35.0-45.0); ABG PH 7.46 mmol/L (7.35-7.45); ABG PO2 76.3 mmhg (80-100); ABG TCO2 28.1 mmhg (23-27)
[2022-07-20 11:34] LABS: Allen's Test Acceptable; Oxygen 2L %; Source Right Radial
--- NOTE | 2022-07-20 11:41 | CT_ITS ---
FINAL REPORT CLINICAL HISTORY: new SOA, recent hosp, hypoxemia COMPARISON: 07/17/2022 FINDINGS: Thin section axial CT images of the chest were obtained with contrast. 3D reformatted images were also obtained. This study was performed with techniques to keep radiation doses as low as reasonably achievable (ALARA). Individualized dose reduction techniques using automated exposure control or adjustment of mA and/or kV according to the patient's size were employed. Breathing motion obscures the lower lobe branches. There is no evidence of pulmonary embolism. There is no evidence of thoracic aortic aneurysm or dissection. Left subclavian pacer is identified. There is a mildly enlarged left prevascular node which is stable. Note is made of mild emphysema. Patchy pulmonary ground-glass opacities are somewhat worse worrisome for worsening pneumonia. There is mild fatty infiltration of the liver. The patient is status post cholecystectomy. There is a in the less than 3 mm nonobstructing left renal stone. IMPRESSION: No evidence of pulmonary embolism. Findings worrisome for worsening pneumonia. Reviewed, Interpreted and Dictated by Vickey Christianson III, MD Transcribed by Winnie Goodrich Authenticated and [facility]
[2022-07-20 11:54] LABS: Troponin I < 0.01 ng/ml (0.00-0.034)
[2022-07-20 11:56] LABS: Coronavirus 19, PCR Detected (NotDetected)
--- NOTE | 2022-07-20 12:02 | PC.NURSE ---
pts oxygen is staying around 86%, so i bumped her up to 3.5 liters. I just re-evaluated her and she is still saturating at 85%. Talked to ER MD and he is ordering her to have a bi-pap. respiratory called.
--- NOTE | 2022-07-20 12:03 | PC.NURSE ---
PT CONTINUES TO HAVE LOW O2 SAT 87%. NOTIFIED. RADIOLOGY NOTIFIED TO PLACE PT ON BI-PAP
--- NOTE | 2022-07-20 12:05 | PC.NURSE ---
RT at BS
--- NOTE | 2022-07-20 12:10 | PC.NURSE ---
DR. GARDNER SPEAKING WITH DR. HAYES
--- NOTE | 2022-07-20 13:05 | PC.NURSE ---
PT TOLERATING BI-PAP. NO NEEDS AT THIS TIME
--- NOTE | 2022-07-20 13:19 | PC.NURSE ---
pt to CT via stretcher with [employer]. Pt removed from bipap for this scan at this time and placed on 4L of o2.
--- NOTE | 2022-07-20 13:27 | PC.NURSE ---
PT TO CT
--- NOTE | 2022-07-20 13:34 | PC.NURSE ---
PT RETURNED FROM CT AT THIS TIME
--- NOTE | 2022-07-20 14:24 | PC.NURSE ---
Dr. North, hospitalist, at speaking with patient
--- NOTE | 2022-07-20 15:10 | PC.NURSE ---
contacted house wrecker to check on status of bed availability, states pt is getting assigned to room 212, room is stripped and they are calling for a stat clean on room
--- NOTE | 2022-07-20 15:14 | EXP.HP ---
History of Present Illness *Admission Date: 07/20/22 *Reason for visit:: Shortness of breath *History of present illness: Patient is a 67-year-old woman with past medical history significant for recent admission here for COPD exacerbation and COVID-pneumonia, CHF, type 2 diabetes, hypertension, and persistent tobacco abuse who comes back to the ER for shortness of breath 1 day after being discharged from this facility for the same complaint. Patient was admitted here from 07/16-. During that admission patient was treated with remdesivir and dexamethasone for 4 days, as well as with DuoNebs, Trelegy, Singulair, and supplemental oxygen.? Patient was weaned to 3 L by nasal cannula on day of discharge. She was discharged home with supplemental oxygen. Patient's type 2 diabetes is poorly controlled, as evidenced by an A1c of 10.2.? Patient was given Lantus and sliding scale insulin during admission, although she says she cannot continue this at home as she cannot read insulin pens to make proper dosing adjustments.? [facility] Disclaimer: The information contained in this section may have been updated after the patient was seen, as this information can be updated by other users. Medical History CAD (coronary artery disease) Cardiac pacemaker in situ COPD (chronic obstructive pulmonary disease) Diabetes (~06/2020) Fatigue HHD (hypertensive heart disease) Hyperlipemia On statin therapy PAF (paroxysmal atrial fibrillation) Surgical History History of arthroplasty of right knee Hx of cholecystectomy Hx of tonsillectomy Family History Diabetes Coronary artery disease Hyperlipidemia Cancer Hypertension Social History Smoking Status: Former smoker pack-years: 30 second hand exposure: Yes alcohol intake: never substance use type: denies use current occupational status: retired Travel in the last 8 weeks: None household members: none housing: house marital status: number of children: 0 current occupational exposures/hazards: No caffeine: Yes Review of Systems Constitutional Constitutional: Reports body ache(s), Reports fatigue, Reports lethargy and Reports weakness Eyes Eyes: Denies change in vision, Denies eye discharge, Denies dry eyes, Denies irritation and Denies itchy eyes ENT Ears, Nose, Mouth, and Throat: Reports disequilibrium, Denies epistaxis, Denies facial pain, Denies lip swelling and Denies throat swelling *Cardiovascular Cardiovascular: Denies chest pain at rest, Denies chest pain with activity, Denies claudication, Reports dyspnea, Reports dyspnea on exertion, Reports leg edema and Reports orthopnea *Respiratory Respiratory: Reports chest congestion, Reports cough, Reports dyspnea, Reports dyspnea on exertion, Reports excessive phlegm production and Reports wheezing *Gastrointestinal Gastrointestinal: Denies abdominal pain, Denies belching, Denies constipation, Denies cramping and Denies diarrhea *Musculoskeletal Musculoskeletal: Reports abnormal gait, Reports muscle weakness (Globally) and Denies numbness *Neurologic Neurologic: Reports abnormal gait, Denies abnormal speech, Denies confusion, Denies convulsions, Reports disequilibrium, Denies localized weakness, Denies lack of coordination, Denies memory loss, Denies numbness and Reports weakness Psychiatric Psychiatric: Denies confusion, Denies homicidal ideation, Denies memory loss and Denies suicidal ideation Endocrine Endocrine: Reports fatigue and Denies heat intolerance Hematologic/Lymphatic Hematologic/Lymphatic: Denies easy bleeding and Denies lymphadenopathy Allergic/Immunologic Allergic/Immunologic: Denies itchy eyes, Denies lip swelling, Denies throat swelling and Reports wheezing Meds Home Medications and Allergies Home Medicati
--- NOTE | 2022-07-20 15:42 | EXP.PHA.CONS ---
Pharmacy Consult Date: 07/20/22 Time: 15:42 Referring provider: DR. SIEGEL Reason for Consult:: VANCOMYCIN DOSING Allergies Allergy/AdvReac Type Severity Reaction Status Date / Time verapamil Allergy Severe Rash Verified 07/07/22 13:45 Iodine and Iodide Containing Allergy Mild Rash Verified 07/07/22 13:45 Produc Penicillins [PENICILLINS] Allergy Unknown I-RASH Verified 07/07/22 13:45 Sulfa (Sulfonamide Allergy Unknown NA-NAUSEA/V Verified 07/07/22 13:45 Antibiotics) OMITING [SULFA (SULFONAMIDE ANTIBIOTICS)] Home Medications Medication Instructions Recorded Confirmed Type aspirin 81 mg tablet,delayed 81 mg PO DAILY heart health 07/16/22 07/20/22 History release atorvastatin 40 mg tablet 40 mg PO HS High cholesterol 07/16/22 07/20/22 History bisoprolol fumarate 10 mg tablet 10 mg PO BID blood pressure 07/16/22 07/20/22 History diltiazem HCl 240 mg capsule,24 240 mg PO DAILY heart 07/16/22 07/20/22 History hr,extended release fluoxetine 20 mg capsule 20 mg PO BID mood 07/16/22 07/20/22 History fluticasone fur. 200 mcg-umeclid 1 inh inhalation DAILY SOB 07/16/22 07/20/22 History 62.5 mcg-vilant 25 mcg inhalat.powder (Trelegy Ellipta) furosemide 40 mg tablet 40 mg PO DAILY water pill 07/16/22 07/20/22 History gabapentin 800 mg tablet 800 mg PO TID Pain 07/16/22 07/20/22 History glipizide 10 mg tablet, extended 10 mg PO DAILY Diabetes 07/16/22 07/20/22 History release 24 hr metformin 500 mg tablet 500 mg PO BID Diabetes 07/16/22 07/20/22 History montelukast 10 mg tablet 10 mg PO DAILY Asthma 07/16/22 07/20/22 History oxycodone-acetaminophen 10 mg-325 1 tab PO QID pain 07/16/22 07/20/22 History mg tablet (Percocet) rivaroxaban 20 mg tablet (Xarelto) 20 mg PO QPMWITHMEAL Blood thinner 07/16/22 07/20/22 History ropinirole 0.25 mg tablet 0.25 mg PO HSP PRN RESTLESS LEGS 07/16/22 07/20/22 History tizanidine 4 mg tablet 4 mg PO BID Pain 07/16/22 07/20/22 History albuterol sulfate 90 mcg/actuation 1 puff inhalation Q6HP PRN SOA 07/17/22 07/20/22 History aerosol inhaler diazepam 5 mg tablet 5 mg PO BID Anxiety 07/17/22 07/20/22 History pantoprazole 40 mg tablet,delayed 40 mg PO DAILY GERD #30 tabs 07/17/22 07/20/22 Rx release potassium chloride 20 mEq 20 meq PO DAILY POTASSIUM 07/17/22 07/20/22 History tablet,extended release(part/cryst) SUPPLEMENT blood sugar diagnostic (Easy Touch 07/20/22 07/20/22 History Test Strip) lancets 33 gauge (TRUEplus Lancets) 07/20/22 07/20/22 History prednisone 10 mg tablet 10 mg PO DIRECTED Infection 07/20/22 07/20/22 History sitagliptin phosphate 25 mg tablet 25 mg PO DAILY Diabetes 07/20/22 07/20/22 History (Javed) New Prescriptions to Start Prescriptions: Height: 1.75 m Weight: 108.862 kg Laboratory Results:: Laboratory Results - last 24 hr 07/20/22 11:01: WBC 8.1, RBC 4.85, Hgb 13.7, Hct 43.6, MCV 89.9, MCH 28.2, MCHC 31.4 L, RDW 14.9, Plt Count 278 D, MPV 9.5, Neut % (Auto) 73.7, Lymph % (Auto) 18.0, [place] % (Auto) 7.7, Eos % (Auto) 0.1, Baso % (Auto) 0.5, Neut # (Auto) 6.0, Lymph # (Auto) 1.5, [place] # (Auto) 0.6, Eos # (Auto) 0.0, Baso # (Auto) 0.0 07/20/22 11:01: Sodium 138, Potassium 3.8, Chloride 103, Carbon Dioxide 30, Anion Gap 8.8, BUN 23 H, Creatinine 0.90, Estimated Creat Clear 91, Estimated GFR 62, Est GFR ( Amer) 75, Glucose 266 H, Calcium 9.3, Troponin I < 0.01 07/20/22 11:01: Lactate 1.6 07/20/22 11:01: SARS-CoV-2 (PCR) Detected A, Influenza A Untype (PCR) Not detected, Influenza Type B (PCR) Not detected 07/20/22 11:30: Specimen Source Right radial, O2 % 2l, ABG pH 7.46 H, ABG pCO2 39.1, ABG pO2 76.3 L, ABG HCO3 26.9 H, ABG Total CO2 28.1 H, ABG O2 Saturation 96, ABG Base Excess 3.0 H, Roman Test Acceptable Medical History: Medical History (Updated 07/20/22 @ 15:26 by Gabe Siegel MD) CAD (coronary artery disease) Cardiac pacemaker in situ COPD (chronic obstructive pulmonary disease) Diabetes (~06/2020) Fatigu
--- NOTE | 2022-07-20 16:02 | PC.NURSE ---
report called to zofia to rn on second floor
--- NOTE | 2022-07-20 16:14 | PC.NURSE ---
pt being taken to 2nd floor with SRNA's x 2.
--- NOTE | 2022-07-20 20:59 | PC.NURSE ---
chelo scott called for fsbs 484, ssi instructs to call md, telephone order to give 12 units now and recheck at midnight, repeated and verified.
[2022-07-20 21:48] LABS: POC Glucose,Bedside 484 (70-110)
[2022-07-21] VITALS (11 sets, daily range): BP systolic 108–131; BP diastolic 53–91; PULSE 70–109; RESP 16–27; TEMP 36.4–37.1; O2SAT 4–99; BMI 34.8; BMI 34.6
[2022-07-21 01:07] LABS: POC Glucose,Bedside 371 (70-110)
--- NOTE | 2022-07-21 01:28 | PC.NURSE ---
0100 rechecked pt fsbs to be 371, chelo scott aprn was notified of results, orders placed per provider to give 8 units now.
[2022-07-21 06:17] LABS: POC Glucose,Bedside 323 (70-110)
--- NOTE | 2022-07-21 06:21 | PC.NURSE ---
Addendum entered by Kai Connolly RN 07/21/22 06:28: telemetry reveals nsr Original Note: pt on bipap with 02 sats 97%, bilateral wheezes noted, vss, pt is alert and oriented x4, skin pwd and without edema, blood sugars have been elevated this shift 484-323 and covered with ssi (see mar), no other issues or concerns at this time.
[2022-07-21 06:28] LABS: Basophils % 0.4 % (0.1-2.0); Eosinophils % 0.1 % (0.1-12.0); Hematocrit 43.1 % (37.0-47.0); Hemoglobin 13.5 g/dL (12.2-16.2); Lymphocytes # 0.7 K/mm3 (0.7-4.5); Lymphocytes % 11.1 % (10-50); Mean Corpuscular HGB Conc 31.3 g/dL (31.8-35.4); Mean Corpuscular Hemoglobin 28.4 pg (27.0-31.2); Mean Platelet Volume 8.9 fl (7.4-10.4); Monocytes # 0.4 K/mm3 (0.1-1.0); Monocytes % 6.6 % (1.7-9.3); Neutrophils # 5.4 K/mm3 (1.8-7.8); Neutrophils % 81.8 % (37.0-80.0); Platelet Count 220 K/mm3 (142-424); Red Blood Count 4.74 M/mm3 (4.20-5.40); Red Cell Distribution Width 14.8 % (11.5-17.5); White Blood Count 6.6 K/mm3 (4.8-10.8)
[2022-07-21 06:31] LABS: Chloride 105 mmol/L (98-107)
[2022-07-21 06:32] LABS: Potassium 4.4 mmoL/L (3.5-5.1)
[2022-07-21 06:34] LABS: Alanine Aminotransferase 36 U/L (12-78); Alkaline Phosphatase 124 U/L (38-126); Aspartate Amino Transferase 28 U/L (14-36); Bilirubin,Total 0.4 mg/dl (0.2-1.3); Blood Urea Nitrogen 25 mg/dl (7-17); Carbon Dioxide 29 mmol/L (22.0-30.0); Creatinine Clearance Estimated 89 mL/min (50-200); Estimated Glomerular Filt Rate 71 ml/min (>60); GFR (African American) 86 ML/MIN (>60)
[2022-07-21 06:35] LABS: Albumin Level 3.4 g/dl (3.5-5.0); Albumin/Globulin Ratio 1.4 (1.1-1.8); Calcium 9.3 mg/dl (8.4-10.2); Globulin 2.4 g/dL (1.3-3.2); Glucose 318 mg/dl (74-100); Total Protein,Serum 5.8 g/dl (6.3-8.2)
--- NOTE | 2022-07-21 06:56 | PC.NURSE ---
pt placed on o2 at 4L pnc at this time, sats are 91%
[2022-07-21 07:41] LABS: Anion Gap 9.4 mEq/L (5-15); Sodium 139 mmol/L (136-145)
--- NOTE | 2022-07-21 10:04 | HMH.PTEV ---
Physical Therapy Evaluation Rehab PT IP Evaluation Start: 07/21/22 08:21 Freq: ONCE Status: Active Protocol: Document 07/21/22 10:00 ASHLEE (Rec: 07/21/22 10:04 ASHLEE [id number]) Subjective/History History History 67 yowf adm to [facility] with COVID- 19+ resulting in increased SOA . Pt reports she lives alone, 2-3 steps into her apt, no steps inside, she is generally independent with all mobility without AD at baseline. Subjective Subjective Pt reports, I just feel really bad today and can't catch my breath. Pt is nicotine dependent at baseline . Rehab PT IP Eval Objective Appearance Patient Behavior Appropriate Patient Orientation Person,Place,Time Difficulty following instructions none Speech Pattern Clear Ambulation Patient Able to Ambulate Yes Ambulation Observation IP General Gait Pattern Observation No Deviations/Normal Ambulation Distance (feet) 40 Ambulation Assistive Device None Ambulation Ability Supervision/Stand by Balance Ability to Arise Able, uses arms to help Sitting Balance Steady, safe Standing Balance Steady, wide stance Dynamic Sitting Balance Ability Good Dynamic Standing Balance Ability Good Transfers Bed Transfer Ability Supervision/Stand by Chair Transfer Ability Supervision/Stand by Sit to Stand Bed Transfer Ability Supervision/Stand by Sit to Stand Chair Transfer Ability Supervision/Stand by ROM All Extremities PT ROM Status WFL MMT All Extremities PT MMT WFL Rehab PT IP prob,goals,plan Problems Date of Evaluation: 07/21/22 Discharge Plan PT Discharge Plan Pt is currently at baseline for all mobility and has no inpatient therapy needs at this time. Major limitation in her recovery is respiratory status. G -code Required No Eval Complexity Eval Charge Codes 32285 - Moderate Complexity PHYSICIAN CERTIFICATION: I certify the specified therapy services for Yaritza Stallings are required, authorized, and reviewed every 30 days.
--- NOTE | 2022-07-21 10:29 | HMH.OTEV ---
OT Inpatient Evaluation Rehab OT IP Evaluation Start: 07/21/22 08:21 Freq: ONCE Status: Active Protocol: Document 07/21/22 10:25 ERICKA (Rec: 07/21/22 10:29 ERICKA [id number]) Rehab OT IP Assessment Subjective History Patient is a 67-year-old woman with past medical history significant for recent admission here for COPD exacerbation and COVID- pneumonia, CHF, type 2 diabetes, hypertension, and persistent tobacco abuse who comes back to the ER for shortness of breath 1 day after being discharged from this facility for the same complaint. Patient was admitted here from 07/16-. During that admission patient was treated with remdesivir and dexamethasone for 4 days, as well as with DuoNebs, Trelegy, Singulair, and supplemental oxygen.? Patient was weaned to 3 L by nasal cannula on day of discharge. She was discharged home with supplemental oxygen . Patient's type 2 diabetes is poorly controlled, as evidenced by an A1c of 10.2.? Patient was given Lantus and sliding scale insulin during admission, although she says she cannot continue this at home as she cannot read insulin pens to make proper dosing adjustments. Patient lives in 1 level apartment with 2-3 JT. Independent with ADLs and fx'l mobility prior to admission. No AE/AD at home. Subjective I can get up. Analysis Patient's safety awareness, bed mobility, transfers, ambulation and ADLs during evaluation. Patient independent with all tasks this date. Patient exhibit SOB and required RB in b
[2022-07-21 12:11] LABS: POC Glucose,Bedside 343 (70-110)
--- NOTE | 2022-07-21 16:15 | EXP.PN ---
Subjective *Date: 07/21/22 *Time: 16:21 Interval history: No acute events overnight, patient remains on 4 L by nasal cannula. She still reports her breathing is a little bit rough . Exam Data for Last 24 hours Vital signs and Labs for Last 24 Hours: Temp Pulse Resp BP Pulse Ox FiO2 97.6 F 72 18 108/55 L 94 L 40 07/21/22 12:00 07/21/22 15:04 07/21/22 12:00 07/21/22 12:00 07/21/22 15:04 07/21/22 06:21 Laboratory Results - last 24 hr 07/20/22 20:28: POC Glucose 484 H* 07/21/22 01:00: POC Glucose 371 H* 07/21/22 06:04: POC Glucose 323 H* 07/21/22 06:11: WBC 6.6, RBC 4.74, Hgb 13.5, Hct 43.1, MCV 91.0, MCH 28.4, MCHC 31.3 L, RDW 14.8, Plt Count 220, MPV 8.9, Neut % (Auto) 81.8 H, Lymph % (Auto) 11.1, [place] % (Auto) 6.6, Eos % (Auto) 0.1, Baso % (Auto) 0.4, Neut # (Auto) 5.4, Lymph # (Auto) 0.7, [place] # (Auto) 0.4, Eos # (Auto) 0.0, Baso # (Auto) 0.0 07/21/22 06:11: Sodium 139, Potassium 4.4, Chloride 105, Carbon Dioxide 29, Anion Gap 9.4, BUN 25 H, Creatinine 0.80, Estimated Creat Clear 89, Estimated GFR 71, Est GFR ( Amer) 86, Glucose 318 H, Calcium 9.3, Magnesium 2.0, Total Bilirubin 0.4, AST 28 D, ALT 36, Alkaline Phosphatase 124, Total Protein 5.8 L, Albumin 3.4 L, Globulin 2.4, Albumin/Globulin Ratio 1.4 07/21/22 11:58: POC Glucose 343 H* I & O for Last 24 hours: Intake & Output 07/18/22 07/19/22 07/20/22 07/21/22 23:59 23:59 23:59 23:59 Intake Total 120 / 570 690 / 690 Output Total 600 / 600 800 / 800 Balance -480 / -30 -110 / -110 Weight 106.679 kg 106 kg Constitutional Constitutional: mild distress (From shortness of breath), obese, chronically ill appearing and cooperative *Routine HEENT Exam Head: Present normocephalic and atraumatic Eye: Present EOMI and PERRL ENT: Present mucous membranes moist and oropharynx clear *Routine Neck Exam Neck: Present supple and full ROM *Routine Respiratory Exam Respiratory: Present CTA bilaterally, prolonged expiratory phase, wheezes (occasional high pitched wheezes appreciated posteriorly ), crackles (Diffusely) and normal respiratory effort (Slight increased work of breathing); Absent accessory muscle use, respiratory distress, diminished air movement (Decent air movement) or able to speak in complete sentences *Routine Cardiovascular Exam Cardiovascular: Present RRR, Normal S1 and Normal S2; Absent murmur *Routine Abdominal Exam Abdominal: Present soft and normoactive bowel sounds; Absent tenderness, distended, rebound or guarding *Routine Extremities Exam Extremities: Present full ROM, pulses intact and normal capillary refill; Absent edema or tenderness *Routine Neurological Exam Neurological: Present alert, oriented X3, CN II-XII intact, moving all extremities, normal tone and normal speech; Absent sensory deficit, motor deficit or altered mental status Routine Psychiatric Exam Psychiatric: Present normal affect, normal thought process and cooperative; Absent depressed or anxious Assessment and Plan *Assessment and plan (1) Pneumonia due to COVID-19 virus: Status: Acute Category: Medical Code(s): U07.1 - COVID-19; J12.82 - Pneumonia due to coronavirus disease 2019 (2) Acute hypoxemic respiratory failure: Status: Acute Category: Medical Code(s): J96.01 - Acute respiratory failure with hypoxia (3) Tobacco dependence syndrome: Status: Chronic Category: Medical Code(s): F17.200 - Nicotine dependence, unspecified, uncomplicated (4) Peripheral neuropathy: Status: Chronic Qualifiers: Peripheral neuropathy type: polyneuropathy, unspecified Qualified Code(s): G62.9 - Polyneuropathy, unspecified Category: Medical Code(s): G62.9 - Polyneuropathy, unspecified (5) CAD (coronary artery disease): Status: Chronic Qualifiers: Associated angina: with other forms of angina Coronary Disease-Associated Artery/Lesion type: [place] artery [place] vs. parikh
--- NOTE | 2022-07-21 16:34 | PC.NURSE ---
one unmeasured void
[2022-07-21 17:40] LABS: POC Glucose,Bedside 343 (70-110)
--- NOTE | 2022-07-21 20:46 | PC.NURSE ---
Johnny JENKINS verbal to give 15 Units for fsbg of 459 and check again in 2 hours.
[2022-07-21 21:54] LABS: POC Glucose,Bedside 459 (70-110)
--- NOTE | 2022-07-21 22:08 | EXP.PN ---
Subjective *Date: 07/22/22 *Time: 14:58 Interval history: elevated blood sugar climbing for 300's to > 450 . Patient does not know what her HGa1c is. says blood sugar from 200 to 400 in past on medication. Recent covid infection . [employer] smoker > than 30 years Exam Data for Last 24 hours Vital signs and Labs for Last 24 Hours: Temp Pulse Resp BP Pulse Ox FiO2 98.2 F 70 19 113/53 L 4 L 40 07/21/22 20:00 07/21/22 20:00 07/21/22 20:00 07/21/22 20:00 07/21/22 20:00 07/21/22 06:21 Laboratory Results - last 24 hr 07/21/22 01:00: POC Glucose 371 H* 07/21/22 06:04: POC Glucose 323 H* 07/21/22 06:11: WBC 6.6, RBC 4.74, Hgb 13.5, Hct 43.1, MCV 91.0, MCH 28.4, MCHC 31.3 L, RDW 14.8, Plt Count 220, MPV 8.9, Neut % (Auto) 81.8 H, Lymph % (Auto) 11.1, [place] % (Auto) 6.6, Eos % (Auto) 0.1, Baso % (Auto) 0.4, Neut # (Auto) 5.4, Lymph # (Auto) 0.7, [place] # (Auto) 0.4, Eos # (Auto) 0.0, Baso # (Auto) 0.0 07/21/22 06:11: Sodium 139, Potassium 4.4, Chloride 105, Carbon Dioxide 29, Anion Gap 9.4, BUN 25 H, Creatinine 0.80, Estimated Creat Clear 89, Estimated GFR 71, Est GFR ( Amer) 86, Glucose 318 H, Calcium 9.3, Magnesium 2.0, Total Bilirubin 0.4, AST 28 D, ALT 36, Alkaline Phosphatase 124, Total Protein 5.8 L, Albumin 3.4 L, Globulin 2.4, Albumin/Globulin Ratio 1.4 07/21/22 11:58: POC Glucose 343 H* 07/21/22 17:11: POC Glucose 343 H* 07/21/22 20:17: POC Glucose 459 H* I & O for Last 24 hours: Intake & Output 07/18/22 07/19/22 07/20/22 07/21/22 23:59 23:59 23:59 23:59 Intake Total 120 / 570 930 / 930 Output Total 600 / 600 1100 / 1100 Balance -480 / -30 -170 / -170 Weight 106.679 kg 106 kg Constitutional Constitutional: no acute distress, obese and cooperative Comments: is asking to be put back on bi pap for the night , she says it really helps her . presently on 4 liters . able to move in bed and sit up without assistance *Routine Respiratory Exam Respiratory: Present rales, rhonchi and able to speak in complete sentences Comments: both lung powers wet rattling on inspiration and expiration . equal expansion Assessment and Plan *Assessment and plan (1) Hyperglycemia, unspecified: Status: Acute Category: Medical Code(s): R73.9 - Hyperglycemia, unspecified Plan will recheck BS 2 hours after last dose on sliding scale insulin tonight , increase to high level sliding scale ac and hs Rounded on patient after nurse practitioner. Personally examined and interviewed patient. Agree with exam findings and plan of care findings as documented.
--- NOTE | 2022-07-21 22:55 | PC.NURSE ---
Johnny JENKINS aware of fsbg check at 22:50 of 463 and pt to get another 10 units of insulin.
[2022-07-21 22:59] LABS: POC Glucose,Bedside 463 (70-110)
[2022-07-22] VITALS (13 sets, daily range): BP systolic 99–155; BP diastolic 55–78; PULSE 70–115; RESP 18–23; TEMP 36.6–37.3; O2SAT 92–99; BMI 35.0
--- NOTE | 2022-07-22 04:54 | PC.NURSE ---
Pt. having high fsbg and Johnny JENKINS has changed here insulin scale to a higher dose. She has been SR on tele and gets up to the BSC without assistance.
[2022-07-22 06:23] LABS: POC Glucose,Bedside 328 (70-110)
[2022-07-22 07:16] LABS: Chloride 104 mmol/L (98-107)
[2022-07-22 07:17] LABS: Potassium 4.2 mmoL/L (3.5-5.1); Sodium 136 mmol/L (136-145)
[2022-07-22 07:19] LABS: Alanine Aminotransferase 34 U/L (12-78); Alkaline Phosphatase 103 U/L (38-126); Aspartate Amino Transferase 27 U/L (14-36); Bilirubin,Total 0.5 mg/dl (0.2-1.3); Blood Urea Nitrogen 29 mg/dl (7-17); Creatinine Clearance Estimated 90 mL/min (50-200); Estimated Glomerular Filt Rate 62 ml/min (>60); GFR (African American) 75 ML/MIN (>60)
[2022-07-22 07:20] LABS: Albumin Level 3.3 g/dl (3.5-5.0); Albumin/Globulin Ratio 1.3 (1.1-1.8); Anion Gap 8.2 mEq/L (5-15); Calcium 8.8 mg/dl (8.4-10.2); Carbon Dioxide 28 mmol/L (22.0-30.0); Globulin 2.5 g/dL (1.3-3.2); Glucose 298 mg/dl (74-100); Total Protein,Serum 5.8 g/dl (6.3-8.2)
[2022-07-22 07:24] LABS: Basophils # 0.1 K/mm3 (0-0.2); Basophils % 0.7 % (0.1-2.0); Eosinophils % 0.2 % (0.1-12.0); Hemoglobin 13.2 g/dL (12.2-16.2); Lymphocytes % 12.3 % (10-50); Mean Corpuscular HGB Conc 32.3 g/dL (31.8-35.4); Mean Corpuscular Hemoglobin 28.3 pg (27.0-31.2); Mean Corpuscular Volume 87.9 fl (81-99); Mean Platelet Volume 8.9 fl (7.4-10.4); Monocytes # 0.6 K/mm3 (0.1-1.0); Monocytes % 6.7 % (1.7-9.3); Neutrophils # 6.5 K/mm3 (1.8-7.8); Neutrophils % 80.1 % (37.0-80.0); Platelet Count 228 K/mm3 (142-424); Red Blood Count 4.67 M/mm3 (4.20-5.40); Red Cell Distribution Width 14.9 % (11.5-17.5); White Blood Count 8.2 K/mm3 (4.8-10.8)
--- NOTE | 2022-07-22 09:46 | PC.NURSE ---
Notified Dr. Pabon of consult on patient
[2022-07-22 10:22] LABS: POC Glucose,Bedside 306 (70-110)
[2022-07-22 11:36] LABS: POC Glucose,Bedside 281 (70-110)
--- NOTE | 2022-07-22 15:16 | EXP.PN ---
Subjective *Date: 07/22/22 *Time: 15:16 Interval history: Patient reports feeling about the same or maybe a little better today. She is still short of breath with walking short distances. Exam Data for Last 24 hours Vital signs and Labs for Last 24 Hours: Temp Pulse Resp BP Pulse Ox FiO2 98.6 F 74 18 155/78 H 97 40 07/22/22 12:00 07/22/22 14:36 07/22/22 12:00 07/22/22 12:00 07/22/22 12:00 07/22/22 07:10 Laboratory Results - last 24 hr 07/21/22 17:11: POC Glucose 343 H* 07/21/22 20:17: POC Glucose 459 H* 07/21/22 22:52: POC Glucose 463 H* 07/22/22 06:13: POC Glucose 328 H* 07/22/22 06:52: WBC 8.2, RBC 4.67, Hgb 13.2, Hct 41.0, MCV 87.9, MCH 28.3, MCHC 32.3, RDW 14.9, Plt Count 228, MPV 8.9, Neut % (Auto) 80.1 H, Lymph % (Auto) 12.3, [place] % (Auto) 6.7, Eos % (Auto) 0.2, Baso % (Auto) 0.7, Neut # (Auto) 6.5, Lymph # (Auto) 1.0, [place] # (Auto) 0.6, Eos # (Auto) 0.0, Baso # (Auto) 0.1 07/22/22 06:52: Sodium 136, Potassium 4.2, Chloride 104, Carbon Dioxide 28, Anion Gap 8.2, BUN 29 H, Creatinine 0.90, Estimated Creat Clear 90, Estimated GFR 62, Est GFR ( Amer) 75, Glucose 298 H, Calcium 8.8, Total Bilirubin 0.5, AST 27, ALT 34, Alkaline Phosphatase 103, Total Protein 5.8 L, Albumin 3.3 L, Globulin 2.5, Albumin/Globulin Ratio 1.3 07/22/22 10:08: POC Glucose 306 H* 07/22/22 11:27: POC Glucose 281 H I & O for Last 24 hours: Intake & Output 07/19/22 07/20/22 07/21/22 07/22/22 23:59 23:59 23:59 23:59 Intake Total 120 / 570 930 / 930 400 / 400 Output Total 600 / 600 1100 / 1400 1750 / 1750 Balance -480 / -30 -170 / -470 -1350 / -1350 Weight 106.679 kg 106 kg 107.365 kg Microbiology Reports for the Last 24 Hours: Microbiology 07/20/22 11:01 Blood Blood Culture - Preliminary NO GROWTH AFTER 48 HOURS 07/20/22 11:01 Blood Blood Culture - Preliminary NO GROWTH AFTER 48 HOURS Constitutional Constitutional: no acute distress (but easily short of breath ), obese, chronically ill appearing and cooperative *Routine HEENT Exam Head: Present normocephalic and atraumatic Eye: Present EOMI and PERRL ENT: Present mucous membranes moist and oropharynx clear *Routine Neck Exam Neck: Present supple and full ROM *Routine Respiratory Exam Respiratory: Present prolonged expiratory phase, wheezes (occasional high pitched wheezes appreciated posteriorly ), crackles (Diffusely) and normal respiratory effort (Slight increased work of breathing); Absent accessory muscle use, CTA bilaterally, respiratory distress, diminished air movement (Decent air movement) or able to speak in complete sentences Comments: Modest/slight improvement today *Routine Cardiovascular Exam Cardiovascular: Present RRR, Normal S1 and Normal S2; Absent murmur *Routine Abdominal Exam Abdominal: Present soft and normoactive bowel sounds; Absent tenderness, distended, rebound or guarding *Routine Extremities Exam Extremities: Present full ROM, pulses intact and normal capillary refill; Absent edema or tenderness *Routine Neurological Exam Neurological: Present alert, oriented X3, CN II-XII intact, moving all extremities, normal tone and normal speech; Absent sensory deficit, motor deficit or altered mental status Routine Psychiatric Exam Psychiatric: Present normal affect, normal thought process and cooperative; Absent depressed or anxious Assessment and Plan *Assessment and plan (1) Pneumonia due to COVID-19 virus: Status: Acute Category: Medical Code(s): U07.1 - COVID-19; J12.82 - Pneumonia due to coronavirus disease 2019 (2) Acute hypoxemic respiratory failure: Status: Acute Category: Medical Code(s): J96.01 - Acute respiratory failure with hypoxia (3) Tobacco dependence syndrome: Status: Chronic Category: Medical Code(s): F17.200 - Nicotine dependence, unspecified, uncomplicated (4) Peripheral neuropathy: Status: Chr
--- NOTE | 2022-07-22 17:17 | PC.NURSE ---
Addendum entered by Margo Kelly RN 07/22/22 17:19: give 20 units of ssi per sindler. Original Note: pt fsbg 482, sindler notified. continue medication regimen and see how pt does tonight.
[2022-07-22 17:40] LABS: POC Glucose,Bedside 482 (70-110)
[2022-07-22 22:41] LABS: POC Glucose,Bedside 477 (70-110)
[2022-07-22 23:39] LABS: Vancomycin,Trough 7.7 ug/mL (5.0-10.0)
[2022-07-23] VITALS (11 sets, daily range): BP systolic 105–147; BP diastolic 60–85; PULSE 64–80; RESP 18–22; TEMP 34.4–37; O2SAT 92–98; BMI 35.4
[2022-07-23 05:17] LABS: Basophils % 0.3 % (0.1-2.0); Hematocrit 39.7 % (37.0-47.0); Hemoglobin 12.9 g/dL (12.2-16.2); Lymphocytes # 0.7 K/mm3 (0.7-4.5); Lymphocytes % 7.1 % (10-50); Mean Corpuscular HGB Conc 32.5 g/dL (31.8-35.4); Mean Corpuscular Hemoglobin 28.4 pg (27.0-31.2); Mean Corpuscular Volume 87.4 fl (81-99); Monocytes # 0.7 K/mm3 (0.1-1.0); Monocytes % 6.7 % (1.7-9.3); Neutrophils # 8.5 K/mm3 (1.8-7.8); Neutrophils % 85.8 % (37.0-80.0); Platelet Count 245 K/mm3 (142-424); Red Blood Count 4.54 M/mm3 (4.20-5.40); Red Cell Distribution Width 14.6 % (11.5-17.5)
[2022-07-23 05:21] LABS: MANUAL DIFFERENTIAL MANUAL DIFFERENTIAL (MANUAL DIFF)
[2022-07-23 05:27] LABS: Alanine Aminotransferase 35 U/L (12-78); Albumin Level 3.4 g/dl (3.5-5.0); Albumin/Globulin Ratio 1.4 (1.1-1.8); Alkaline Phosphatase 99 U/L (38-126); Anion Gap 10.7 mEq/L (5-15); Aspartate Amino Transferase 23 U/L (14-36); Bilirubin,Total 0.4 mg/dl (0.2-1.3); Blood Urea Nitrogen 32 mg/dl (7-17); Carbon Dioxide 24 mmol/L (22.0-30.0); Chloride 104 mmol/L (98-107); Creatinine Clearance Estimated 91 mL/min (50-200); Estimated Glomerular Filt Rate 55 ml/min (>60); GFR (African American) 67 ML/MIN (>60); Globulin 2.4 g/dL (1.3-3.2); Glucose 334 mg/dl (74-100); Potassium 3.7 mmoL/L (3.5-5.1); Sodium 135 mmol/L (136-145); Total Protein,Serum 5.8 g/dl (6.3-8.2)
[2022-07-23 05:30] LABS: Vancomycin,Peak 23.3 ug/ml (11-39)
[2022-07-23 05:33] LABS: Lymphocytes % 5 % (10-50); Monocytes % 2 % (2-9); Neutrophils % 89 % (42-76); Platelet Estimate Normal; RBC Morphology Normal; Total Cells Counted 100
[2022-07-23 06:44] LABS: POC Glucose,Bedside 327 (70-110)
--- NOTE | 2022-07-23 07:01 | PC.NURSE ---
NO ACUTE CHANGES. PT HAS RESTED WELL THIS SHIFT. LUNG SOUNDS REMAIN DIMINISHED. HAS TOLERATED BIPAP WELL THIS SHIFT. NO C/O OF PAIN, NAUSEA, OR SOB. VSS. REMAINS A FEBRILE.
--- NOTE | 2022-07-23 11:02 | EXP.PHA.CONS ---
Pharmacy Consult Date: 07/23/22 Time: 11:02 Referring provider: DR. HAYES Reason for Consult:: VANCOMYCIN TROUGH/PEAK LEVELS AND DOSE CHANGE Allergies Allergy/AdvReac Type Severity Reaction Status Date / Time verapamil Allergy Severe Rash Verified 07/07/22 13:45 Iodine and Iodide Containing Allergy Mild Rash Verified 07/07/22 13:45 Produc Penicillins [PENICILLINS] Allergy Unknown I-RASH Verified 07/07/22 13:45 Sulfa (Sulfonamide Allergy Unknown NA-NAUSEA/V Verified 07/07/22 13:45 Antibiotics) OMITING [SULFA (SULFONAMIDE ANTIBIOTICS)] Home Medications Medication Instructions Recorded Confirmed Type aspirin 81 mg tablet,delayed 81 mg PO DAILY heart health 07/16/22 07/20/22 History release atorvastatin 40 mg tablet 40 mg PO HS High cholesterol 07/16/22 07/20/22 History bisoprolol fumarate 10 mg tablet 10 mg PO BID blood pressure 07/16/22 07/20/22 History diltiazem HCl 240 mg capsule,24 240 mg PO DAILY heart 07/16/22 07/20/22 History hr,extended release fluoxetine 20 mg capsule 20 mg PO BID mood 07/16/22 07/20/22 History fluticasone fur. 200 mcg-umeclid 1 inh inhalation DAILY codp 07/16/22 07/20/22 History 62.5 mcg-vilant 25 mcg inhalat.powder (Trelegy Ellipta) furosemide 40 mg tablet 40 mg PO DAILY diuretics 07/16/22 07/20/22 History gabapentin 800 mg tablet 800 mg PO TID Pain 07/16/22 07/20/22 History glipizide 10 mg tablet, extended 10 mg PO DAILY Diabetes 07/16/22 07/20/22 History release 24 hr metformin 500 mg tablet 500 mg PO BID Diabetes 07/16/22 07/20/22 History montelukast 10 mg tablet 10 mg PO HS allergies 07/16/22 07/21/22 History oxycodone-acetaminophen 10 mg-325 1 tab PO QID pain 07/16/22 07/20/22 History mg tablet (Percocet) rivaroxaban 20 mg tablet (Xarelto) 20 mg PO QPMWITHMEAL Blood thinner 07/16/22 07/20/22 History ropinirole 0.25 mg tablet 0.25 mg PO HS restless leg syndrome 07/16/22 07/21/22 History tizanidine 4 mg tablet 4 mg PO BID PRN muscle spasms 07/16/22 07/20/22 History albuterol sulfate 90 mcg/actuation 1 puff inhalation Q6HP PRN 07/17/22 07/20/22 History aerosol inhaler Shortness Of Breath diazepam 5 mg tablet 5 mg PO BID Anxiety 07/17/22 07/20/22 History pantoprazole 40 mg tablet,delayed 40 mg PO DAILY GERD #30 tabs 07/17/22 07/20/22 Rx release potassium chloride 20 mEq 20 meq PO DAILY potassium 07/17/22 07/20/22 History tablet,extended release(part/cryst) supplement prednisone 10 mg tablet 10 mg PO DIRECTED Infection 07/20/22 07/20/22 History sitagliptin phosphate 25 mg tablet 25 mg PO DAILY Diabetes 07/20/22 07/20/22 History (Javed) New Prescriptions to Start Prescriptions: Height: 1.75 m Weight: 108.726 kg Laboratory Results:: Laboratory Results - last 24 hr 07/22/22 11:27: POC Glucose 281 H 07/22/22 17:12: POC Glucose 482 H* 07/22/22 22:19: POC Glucose 477 H* 07/22/22 23:03: Vancomycin Trough 7.7 07/23/22 04:50: Vancomycin Peak 23.3 07/23/22 04:50: WBC 10.0, RBC 4.54, Hgb 12.9, Hct 39.7, MCV 87.4, MCH 28.4, MCHC 32.5, RDW 14.6, Plt Count 245, MPV 9.0, Neut % (Auto) 85.8 H, Lymph % (Auto) 7.1 L, [place] % (Auto) 6.7, Eos % (Auto) 0.0 L, Baso % (Auto) 0.3, Neut # (Auto) 8.5 H, Lymph # (Auto) 0.7, [place] # (Auto) 0.7, Eos # (Auto) 0.0, Baso # (Auto) 0.0, Total Counted 100, Neutrophils % (Manual) 89 H, Band Neutrophils % 4.0, Lymphocytes % (Manual) 5 L, Monocytes % (Manual) 2, Platelet Estimate Normal, RBC Morphology Normal 07/23/22 04:50: Sodium 135 L, Potassium 3.7, Chloride 104, Carbon Dioxide 24, Anion Gap 10.7, BUN 32 H, Creatinine 1.00, Estimated Creat Clear 91, Estimated GFR 55 L, Est GFR ( Amer) 67, Glucose 334 H, Calcium 9.0, Total Bilirubin 0.4, AST 23, ALT 35, Alkaline Phosphatase 99, Total Protein 5.8 L, Albumin 3.4 L, Globulin 2.4, Albumin/Globulin Ratio 1.4 07/23/22 05:00: POC Glucose 327 H* Medical History: Medical History (Updated 07/23/22 @ 00:11 by Background Daemon) CAD (coronary artery disease) Cardiac pacemaker i
[2022-07-23 12:32] LABS: POC Glucose,Bedside 363 (70-110)
--- NOTE | 2022-07-23 13:45 | EXP.PN ---
Subjective *Date: 07/23/22 *Time: 13:45 Interval history: Patient reports feeling a little bit better today. She does get rather short of breath with walking a short distance. Exam Data for Last 24 hours Vital signs and Labs for Last 24 Hours: Temp Pulse Resp BP Pulse Ox FiO2 98.0 F 64 22 138/61 92 L 40 07/23/22 12:00 07/23/22 12:00 07/23/22 12:00 07/23/22 12:00 07/23/22 12:00 07/23/22 06:21 Laboratory Results - last 24 hr 07/22/22 17:12: POC Glucose 482 H* 07/22/22 22:19: POC Glucose 477 H* 07/22/22 23:03: Vancomycin Trough 7.7 07/23/22 04:50: Vancomycin Peak 23.3 07/23/22 04:50: WBC 10.0, RBC 4.54, Hgb 12.9, Hct 39.7, MCV 87.4, MCH 28.4, MCHC 32.5, RDW 14.6, Plt Count 245, MPV 9.0, Neut % (Auto) 85.8 H, Lymph % (Auto) 7.1 L, [place] % (Auto) 6.7, Eos % (Auto) 0.0 L, Baso % (Auto) 0.3, Neut # (Auto) 8.5 H, Lymph # (Auto) 0.7, [place] # (Auto) 0.7, Eos # (Auto) 0.0, Baso # (Auto) 0.0, Total Counted 100, Neutrophils % (Manual) 89 H, Band Neutrophils % 4.0, Lymphocytes % (Manual) 5 L, Monocytes % (Manual) 2, Platelet Estimate Normal, RBC Morphology Normal 07/23/22 04:50: Sodium 135 L, Potassium 3.7, Chloride 104, Carbon Dioxide 24, Anion Gap 10.7, BUN 32 H, Creatinine 1.00, Estimated Creat Clear 91, Estimated GFR 55 L, Est GFR ( Amer) 67, Glucose 334 H, Calcium 9.0, Total Bilirubin 0.4, AST 23, ALT 35, Alkaline Phosphatase 99, Total Protein 5.8 L, Albumin 3.4 L, Globulin 2.4, Albumin/Globulin Ratio 1.4 07/23/22 05:00: POC Glucose 327 H* 07/23/22 12:08: POC Glucose 363 H* I & O for Last 24 hours: Intake & Output 07/20/22 07/21/22 07/22/22 07/23/22 23:59 23:59 23:59 23:59 Intake Total 120 / 570 930 / 930 1600 / 1600 840 / 840 Output Total 600 / 600 1100 / 1400 2850 / 2850 1700 / 1700 Balance -480 / -30 -170 / -470 -1250 / -1250 -860 / -860 Weight 106.679 kg 106 kg 107.365 kg 108.726 kg Microbiology Reports for the Last 24 Hours: Microbiology 07/21/22 10:20 Sputum - Expectorated Sputum Gram Stain - Final 07/21/22 10:20 Sputum - Expectorated Sputum Sputum Culture - Preliminary 07/20/22 11:01 Blood Blood Culture - Preliminary NO GROWTH AFTER 48 HOURS 07/20/22 11:01 Blood Blood Culture - Preliminary NO GROWTH AFTER 48 HOURS Constitutional Constitutional: no acute distress (but easily short of breath ), obese, chronically ill appearing and cooperative *Routine HEENT Exam Head: Present normocephalic and atraumatic Eye: Present EOMI and PERRL ENT: Present mucous membranes moist and oropharynx clear *Routine Neck Exam Neck: Present supple and full ROM *Routine Respiratory Exam Respiratory: Present prolonged expiratory phase, wheezes (occasional high pitched wheezes appreciated posteriorly ), crackles (Diffusely but slightly better today) and normal respiratory effort (Slight increased work of breathing); Absent accessory muscle use, CTA bilaterally, respiratory distress, diminished air movement (Decent air movement) or able to speak in complete sentences Comments: Modest/slight improvement again today *Routine Cardiovascular Exam Cardiovascular: Present RRR, Normal S1 and Normal S2; Absent murmur *Routine Abdominal Exam Abdominal: Present soft and normoactive bowel sounds; Absent tenderness, distended, rebound or guarding *Routine Extremities Exam Extremities: Present full ROM, pulses intact and normal capillary refill; Absent edema or tenderness *Routine Neurological Exam Neurological: Present alert, oriented X3, CN II-XII intact, moving all extremities, normal tone and normal speech; Absent sensory deficit, motor deficit or altered mental status Routine Psychiatric Exam Psychiatric: Present normal affect, normal thought process, cooperative and depressed; Absent anxious Assessment and Plan *Assessment and plan (1) Pneumonia due to COVID-19 virus: Status: Acute Category: Medical Code(s): U07.1 - COVID-19; J12.82 - Pneum
--- NOTE | 2022-07-23 17:00 | PC.NURSE ---
Patient VSS, B/L diminished, inspiratory & expiratory rhonchi & wheezing (respiratory notified for treatment) on 5L oxygen NC with sats >90%. Patient up to chair x 1 hr; using flutter valve, has very dry cough. FSBS high with insulin given Hospitalist notified.
[2022-07-23 17:16] LABS: POC Glucose,Bedside 509 (70-110)
--- NOTE | 2022-07-23 20:23 | PC.NURSE ---
doc luis langston notified re FSBS 507. to review and order.
[2022-07-23 20:29] LABS: POC Glucose,Bedside 507 (70-110)
[2022-07-24] VITALS (10 sets, daily range): BP systolic 130–142; BP diastolic 64–98; PULSE 69–88; RESP 17–22; TEMP 36.6–36.7; O2SAT 93–95; BMI 35.4
[2022-07-24 05:45] LABS: POC Glucose,Bedside 375 (70-110)
[2022-07-24 06:48] LABS: Chloride 103 mmol/L (98-107); Potassium 4.1 mmoL/L (3.5-5.1); Sodium 135 mmol/L (136-145)
[2022-07-24 06:50] LABS: Blood Urea Nitrogen 26 mg/dl (7-17); Creatinine Clearance Estimated 91 mL/min (50-200); Estimated Glomerular Filt Rate 62 ml/min (>60); GFR (African American) 75 ML/MIN (>60)
[2022-07-24 06:51] LABS: Alanine Aminotransferase 31 U/L (12-78); Albumin Level 3.2 g/dl (3.5-5.0); Albumin/Globulin Ratio 1.5 (1.1-1.8); Alkaline Phosphatase 116 U/L (38-126); Anion Gap 10.1 mEq/L (5-15); Aspartate Amino Transferase 21 U/L (14-36); Bilirubin,Total 0.3 mg/dl (0.2-1.3); Calcium 9.1 mg/dl (8.4-10.2); Carbon Dioxide 26 mmol/L (22.0-30.0); Globulin 2.2 g/dL (1.3-3.2); Glucose 374 mg/dl (74-100); Total Protein,Serum 5.4 g/dl (6.3-8.2)
[2022-07-24 06:54] LABS: Basophils % 0.3 % (0.1-2.0); Hemoglobin 12.5 g/dL (12.2-16.2); Lymphocytes # 0.7 K/mm3 (0.7-4.5); Lymphocytes % 6.8 % (10-50); Mean Corpuscular HGB Conc 32.2 g/dL (31.8-35.4); Mean Corpuscular Hemoglobin 28.2 pg (27.0-31.2); Mean Corpuscular Volume 87.8 fl (81-99); Mean Platelet Volume 9.5 fl (7.4-10.4); Monocytes # 0.6 K/mm3 (0.1-1.0); Neutrophils # 8.8 K/mm3 (1.8-7.8); Neutrophils % 86.8 % (37.0-80.0); Platelet Count 237 K/mm3 (142-424); Red Blood Count 4.44 M/mm3 (4.20-5.40); Red Cell Distribution Width 14.6 % (11.5-17.5); White Blood Count 10.1 K/mm3 (4.8-10.8)
[2022-07-24 07:04] LABS: MANUAL DIFFERENTIAL MANUAL DIFFERENTIAL (MANUAL DIFF)
[2022-07-24 07:53] LABS: Lymphocytes % 6 % (10-50); Monocytes % 4 % (2-9); Neutrophils % 90 % (42-76); Platelet Estimate Normal; RBC Morphology Normal; Total Cells Counted 100
--- NOTE | 2022-07-24 09:37 | CA_ITS ---
APPROVED REPORT EXAM: Comprehensive 2D, Doppler, and color-flow Echocardiogram Wood Getter: Amanda Jiang RVT Ht: 5 ft 8 in Wt: 239lbs BSA: 2.20 BP: 138/61 mmHg Indications: SOA,COVID,PNEUMONIA,A-FIB,PACER,CAD,DM,SMOKER,HTN,HLD 2D Dimensions LVOT 1.95 cm (M/F) 1.5-2.5 LA Volume 49.20 mL LA Volume Index 22.26 mL/m2 (M/F) 16-34 M-Mode Dimensions RVDd 3.19 cm (0.9-2.6) LA Diam 4.47 cm (1.9-4.0) LVDd 4.46 cm (3.5-5.7) Ao Diam 2.62 cm (2.0-3.7) LVDs 3.23 cm (3.5-5.7) IVSd 0.59 cm (0.6-1.1) PWd 0.68 cm (0.6-1.1) EF (Teich) 53.70% FS 27.60% EDV (Teich) 90.50 mL ESV (Teich) 41.90 mL LV Diastology E Decel Time 257.00 (160-240 msec) E/A Ratio 0.8 MED E' 8.30 (< 7 cm/sec) E'/MED E' Ratio 7.95 (>14) LAT E' 9.40 (<10 cm/sec) E/LAT E' Ratio 7.02 (>14) Aortic Valve AO Peak GR. 9.50 mmHg Mitral Valve MV E Max Wil. 66.00 (40-130 cm/s) MV A Velocity 78.00 (40-130 cm/s) E/A Ratio 0.85 MV Decel. Time 257.00 (160-240 ms) MV PHT 75.00 ms Pulmonary Valve PV Peak Velocity 99.00 (50-150 cm/s) Tricuspid Valve TR P. Velocity 160.00 cm/s RAP Estimate 10.00 mmHg RVSP 20.20 mmHg Left Ventricle Clinically difficult study because of the patient factors and poor acoustic windows. Left atrium is mildly enlarged, left ventricle is normal size, estimated ejection fraction 55% with no regional wall motion abnormality, grade 1 diastolic dysfunction seen without tissue Doppler evidence of raise left atrial pressure. Right Ventricle Right atrium and right ventricle are mildly enlarged with normal contractility, pacemaker leads in the right ventricle. Aortic Valve Aortic valve is minimally thickened and fibrosed there is no aortic stenosis or aortic insufficiency. Mitral Valve Mitral valve grossly normal, there is trace mitral regurgitation. Tricuspid Valve Tricuspid valve grossly normal, there is trace tricuspid regurgitation, tricuspid regurgitation jet velocity is inadequate for calculation of the right ventricular systolic pressure. Pulmonic Valve Pulmonic valve is poorly visualized. Great Vessels Aortic root is normal size. Inferior vena cava is poorly visualized. Pericardium No significant pericardial effusion noted. Conclusion 1. Mild biatrial enlargement, normal left ventricular size, mild concentric left ventricular hypertrophy, estimated ejection fraction 55% with no regional wall motion abnormality, grade 1 diastolic dysfunction seen without tissue Doppler evidence of raise left atrial pressure. 2. Mildly enlarged right ventricle with normal contractility. 3. Trace mitral and tricuspid regurgitation. 4. No significant pericardial effusion noted. 5. Inferior vena cava is poorly visualized. Electronically signed by : Adam Montes MD 07/24/2022 15:17:57
--- NOTE | 2022-07-24 10:30 | SW/DCPLANNER ---
Addendum entered by Mirna Ledesma 07/24/22 13:34: Aquiles aparicio/ Humberto stated that nebulizer will be delivered to patient at home today. Addendum entered by Mirna Ledesma 07/24/22 13:22: Patient will discharge today. Updated information has been faxed to [facility]. I have also faxed patient information/order to [facility] for a nebulizer machine. Original Note: This patient is currently established with [facility]. Patient also has home O2 w/ [facility]. I will fax patient information to [facility] once patient is medically stable for discharge. Discharge date is unknown at this time.
--- NOTE | 2022-07-24 10:38 | EXP.PULM.CON ---
History of Present Illness History of present illness: Ms. Stallings is a 67-year-old female history of COPD greater than [id number] smoking history recently admitted to the hospital for COVID-19 pneumonia discharge and presented to hospital again with continued worsening respiratory status cough and productive phlegm and pulmonary was called for further evaluation. [facility] Disclaimer: The information contained in this section may have been updated after the patient was seen, as this information can be updated by other users. Medical History CAD (coronary artery disease) Cardiac pacemaker in situ COPD (chronic obstructive pulmonary disease) Diabetes (~06/2020) Fatigue HHD (hypertensive heart disease) Hyperlipemia On statin therapy PAF (paroxysmal atrial fibrillation) Surgical History History of arthroplasty of right knee Hx of cholecystectomy Hx of tonsillectomy Family History Diabetes Coronary artery disease Hyperlipidemia Cancer Hypertension Social History (Updated 07/20/22 @ 16:48 by Mirna Magana RN) Smoking Status: Former smoker pack-years: 30 second hand exposure: Yes alcohol intake: never substance use type: denies use current occupational status: retired Travel in the last 8 weeks: None household members: none housing: house marital status: number of children: 0 current occupational exposures/hazards: No caffeine: Yes Review of Systems Constitutional Constitutional: Reports fatigue and Reports weakness Eyes Eyes: Denies eye discharge, Denies dry eyes, Denies irritation and Denies itchy eyes ENT Ears, Nose, Mouth, and Throat: Reports disequilibrium, Denies lip swelling and Denies throat swelling *Cardiovascular Cardiovascular: Reports dyspnea and Reports dyspnea on exertion *Respiratory Respiratory: Reports chest congestion, Reports cough, Reports dyspnea, Reports dyspnea on exertion, Reports excessive phlegm production, Denies hemoptysis, Denies pain on inspiration and Reports wheezing *Gastrointestinal Gastrointestinal: Denies abdominal pain, Denies belching and Denies cramping *Musculoskeletal Musculoskeletal: Reports abnormal gait and Denies numbness *Neurologic Neurologic: Reports abnormal gait, Denies abnormal speech, Denies confusion, Denies convulsions, Reports disequilibrium, Denies localized weakness, Denies lack of coordination, Denies memory loss, Denies numbness and Reports weakness Psychiatric Psychiatric: Denies confusion and Denies memory loss Endocrine Endocrine: Reports fatigue and Denies heat intolerance Hematologic/Lymphatic Hematologic/Lymphatic: Denies easy bleeding and Denies lymphadenopathy Allergic/Immunologic Allergic/Immunologic: Denies itchy eyes, Denies lip swelling, Denies throat swelling and Reports wheezing Pulmonology Exam Inpatient Vital signs and Labs for Last 24 Hours: Temp Pulse Resp BP Pulse Ox FiO2 98.1 F 70 20 130/64 95 40 07/24/22 08:00 07/24/22 08:00 07/24/22 08:00 07/24/22 08:00 07/24/22 08:00 07/24/22 03:00 Laboratory Results - last 24 hr 07/23/22 12:08: POC Glucose 363 H* 07/23/22 16:37: POC Glucose 509 H* 07/23/22 20:16: POC Glucose 507 H* 07/24/22 05:16: POC Glucose 375 H* 07/24/22 06:07: WBC 10.1, RBC 4.44, Hgb 12.5, Hct 39.0, MCV 87.8, MCH 28.2, MCHC 32.2, RDW 14.6, Plt Count 237, MPV 9.5, Neut % (Auto) 86.8 H, Lymph % (Auto) 6.8 L, [place] % (Auto) 6.0, Eos % (Auto) 0.0 L, Baso % (Auto) 0.3, Neut # (Auto) 8.8 H, Lymph # (Auto) 0.7, [place] # (Auto) 0.6, Eos # (Auto) 0.0, Baso # (Auto) 0.0, Total Counted 100, Neutrophils % (Manual) 90 H, Lymphocytes % (Manual) 6 L, Monocytes % (Manual) 4, Platelet Estimate Normal, RBC Morphology Normal 07/24/22 06:07: Sodium 135 L, Potassium 4.1, Chloride 103, Carbon Dioxide 26, Anion Gap 10.1, BUN 26 H, Creatinine 0.90, Estimated Cr
--- NOTE | 2022-07-24 10:42 | XR_ITS ---
PROCEDURE INFORMATION: Exam: XR Chest Exam date and time: 07/24/2022 10:50 AM Age: 67 years old Clinical indication: Shortness of breath; Additional info: Covid TECHNIQUE: Imaging protocol: Radiologic exam of the chest. Views: 1 view. COMPARISON: CR XR CHEST PORTABLE 07/20/2022 11:28 AM FINDINGS: Limitations: Study is limited due to patient rotation and poor inspiratory effort. Lungs: Left lung base is difficult to assess due to patient rotation. Remaining lung powers are essentially clear without focal infiltrates or overt CHF. Pleural spaces: Unremarkable. No pleural effusion. No pneumothorax. Heart/Mediastinum: Heart appears borderline enlarged on this portable chest. There are pacemaker wires extending to the right atrium and right ventricle. Bones/joints: Unremarkable for age. IMPRESSION: Technically limited but negative portable chest exam.
[2022-07-24 12:01] LABS: POC Glucose,Bedside 427 (70-110)
--- NOTE | 2022-07-24 12:36 | EXP.DC.SUM ---
General Admission date:: 07/20/22 Discharge date: 07/24/22 HPI HPI HPI: Patient is a 67-year-old woman with past medical history significant for recent admission here for COPD exacerbation and COVID-pneumonia, CHF, type 2 diabetes, hypertension, and persistent tobacco abuse who comes back to the ER for shortness of breath 1 day after being discharged from this facility for the same complaint. Patient was admitted here from 07/16-. During that admission patient was treated with remdesivir and dexamethasone for 4 days, as well as with DuoNebs, Trelegy, Singulair, and supplemental oxygen.? Patient was weaned to 3 L by nasal cannula on day of discharge. She was discharged home with supplemental oxygen. Patient's type 2 diabetes is poorly controlled, as evidenced by an A1c of 10.2.? Patient was given Lantus and sliding scale insulin during admission, although she says she cannot continue this at home as she cannot read insulin pens to make proper dosing adjustments.? Hospital Course Hospital Course Hospital Course: Pt is a 67 y/o woman who is admitted on 07/20 for acute hypoxemic respiratory failure 2/2 COVID and superimposed bacterial PNA. Patient was admitted here from 07/16-.? During that admission patient was treated with remdesivir and dexamethasone for 4 days, as well as with DuoNebs, Trelegy, Singulair, and supplemental oxygen.? Patient was weaned to 3 L by nasal cannula on day of discharge. She was home for approx 24 hours and returned to the ED for worsening shortness of breath. //COVID and HCAP patient received 4 doses of remdesivir during her previous admission from the to the , and she received 2 more doses during this admission for a total of 6 doses. Patient initially required BiPAP for supplemental oxygen, however this was quickly transitioned to 4 L by nasal cannula, and she has remained on 4 L for the past 4-day admission. Additionally, patient has been given Vanco and cefepime for hospital-acquired pneumonia, with cefepime transition to Levaquin on the . Patient will be discharged home on Levaquin for 8 more days. She will cont dexamethasone for 6 more days to complete a 10 day course. Also, continue Trelegy and montelukast for COPD per home regimen, and duonebs q6 scheduled. //DM 2 this is poorly controlled with an A1c of 10.2. Since she is discharged with home health, will continue lantus 40 units once a day (either night or morning) given persistent hyperglycemia during admission. Also cont glipizide 10 mg PO BID with meals, metformin, and Januvia. Continue gabapentin for neuropathy. //Diastolic Heart Failure: ECHO 06/15/21:?EF 55% with grade 1 diastolic dysfunction.? No significant valve disease. Repeat echo done this morning, results pending. //CAD- Left heart catheterization, 2018 showed normal coronary arteries //Paroxysmal A. fib - Continue diltiazem, Xarelto. Pacemaker in place Exam Data for Last 24 hours Vital signs and Labs for Last 24 Hours: Temp Pulse Resp BP Pulse Ox FiO2 97.9 F 69 22 142/98 H 93 L 40 07/24/22 11:28 07/24/22 11:28 07/24/22 11:28 07/24/22 11:28 07/24/22 11:28 07/24/22 03:00 Laboratory Results - last 24 hr 07/23/22 16:37: POC Glucose 509 H* 07/23/22 20:16: POC Glucose 507 H* 07/24/22 05:16: POC Glucose 375 H* 07/24/22 06:07: WBC 10.1, RBC 4.44, Hgb 12.5, Hct 39.0, MCV 87.8, MCH 28.2, MCHC 32.2, RDW 14.6, Plt Count 237, MPV 9.5, Neut % (Auto) 86.8 H, Lymph % (Auto) 6.8 L, [place] % (Auto) 6.0, Eos % (Auto) 0.0 L, Baso % (Auto) 0.3, Neut # (Auto) 8.8 H, Lymph # (Auto) 0.7, [place] # (Auto) 0.6, Eos # (Auto) 0.0, Baso # (Auto) 0.0, Total Counted 100, Neutrophils % (Manual) 90 H, Lymphocytes % (Manual) 6 L, Monocytes % (Manual) 4, Platelet Estimate Normal, RBC Morphology Normal 07/24/22 06:07: Sodium 135 L, Potassium 4.1, Chloride 103, Carbon Dioxide 26, Anion Gap 10.1, BUN 26 H, Creatinine 0.90, Estimated Creat Clear 91, Estimated GFR 62, Est GFR ( Amer) 75, Glucose 37
--- NOTE | 2022-07-24 15:19 | HMH.PHAINT1 ---
Pharmacy Intervention Comments: DISCHARGE MEDICATION COUNSELING PROVIDED. DISCUSSED THE FOLLOWING CHANGES: -STOP TAKING THE FOLLOWING: GLIPIZIDE 10 MG XR TAB AND PREDNISONE -START TAKING THE FOLLOWING: -DEXAMETHASONE (STEROID, DAILY, TAKE WITH FOOD IN THE MORNING, INSOMNIA, UPSET STOMACH, INC BLOOD GLUCOSE) -GLIPIZIDE IR (FOR DIABETES, TWICE DAILY, TAKE 30 MINUTES BEFORE FOOD, GI UPSET, LOW BLOOD SUGAR POSSIBLE) -LEVOFLOXACIN (ANTIBIOTIC, DAILY, TAKE WITH FOOD, MAY CAUSE N/V/D, RISK OF TENDON RUPTURE WITH STEROID) -LANTUS PEN (FOR DIABETES, AT BEDTIME, SQ ADMIN TECHNIQUE, ROTATE INJECTION SITES, RISK OF LOW BLOOD SUGAR) PATIENT EXPRESSED CONCERN WITH STARTING A LANTUS PEN DUE TO IT BEING NEW AND BEING UNABLE TO SEE WELL. I EXPRESSED THAT HER NURSE WOULD BE COMING IN TO FULLY GO OVER HOW TO OPERATE THE LANTUS PEN AND WOULD ENSURE SHE IS FULLY COMFORTABLE PRIOR TO DISCHARGE. PATIENT VERBALIZED NO ADDITIONAL QUESTIONS AT THIS TIME.
--- NOTE | 2022-07-25 14:29 | CARE MANAGER ---
Contacted patient who states she feels better, but sounded very short of breath. She states home health nurse is present right now. She did not go to follow up appointment today, but will reschedule. BRITTANY Donovan
== END 2022-07-24 16:50 | disposition home or self-care (01) | DRG 177 ==
LOC: ER 11:00 → 2ND 12:23
PROVIDERS: Admitting Provider Emergency Medicine; Emergency Provider Emergency Medicine; PCP Emergency Medicine; Visit Provider Emergency Medicine
DX: U07.1 COVID-19 (principal); J12.82 Pneumonia due to coronavirus disease 2019; J18.9 Pneumonia, unspecified organism; I13.0 Hypertensive heart and chronic kidney disease with heart failure and stage 1 through stage 4 chronic kidney disease, or unspecified chronic kidney disease; J44.0 Chronic obstructive pulmonary disease with (acute) lower respiratory infection; I50.30 Unspecified diastolic (congestive) heart failure; Z79.84 Long term (current) use of oral hypoglycemic drugs; I12.9 Hypertensive chronic kidney disease with stage 1 through stage 4 chronic kidney disease, or unspecified chronic kidney disease; N18.9 Chronic kidney disease, unspecified; E11.22 Type 2 diabetes mellitus with diabetic chronic kidney disease; I25.10 Atherosclerotic heart disease of native coronary artery without angina pectoris; I48.0 Paroxysmal atrial fibrillation; Z95.0 Presence of cardiac pacemaker; F17.200 Nicotine dependence, unspecified, uncomplicated; I25.118 Atherosclerotic heart disease of native coronary artery with other forms of angina pectoris; E11.42 Type 2 diabetes mellitus with diabetic polyneuropathy; Z96.651 Presence of right artificial knee joint; Y95 Nosocomial condition; J20.9 Acute bronchitis, unspecified; E11.65 Type 2 diabetes mellitus with hyperglycemia
CPT/HCPCS: 36415; 71045; 71275; 80048; 80053; 80202; 82803; 82962; 83605; 83735; 84484; 85007; 85025; 87040; 87070; 87077; 87205; 93005; 93306; 94640; 94660; 94761; 97162; 97165; 99285; C9803; J1956; J3370; Q9967; U0003; U0005

== ENCOUNTER 2022-07-26 11:06 | Emergency (ER) | payer MEDICARE, MEDICAID, SELFPAY ==
[2022-07-26] VITALS (15 sets, daily range): BP systolic 105–132; BP diastolic 61–81; PULSE 62–85; RESP 18–22; TEMP 36.8; O2SAT 94–98; BMI 35.4
--- NOTE | 2022-07-26 | ECG_ITS ---
APPROVED REPORT Exam: Resting ECG HR:69 bpm ECG Measurements Heart Rate 69 AXES LA 156 P 130 QRSd 89 QRS 39 QT 410 T 37 QTc 430 Conclusion ELECTRONIC ATRIAL PACEMAKER LOW QRS VOLTAGE IN PRECORDIAL LEADS [QRS DEFLECTION < 1.0 mV IN CHEST LEADS] ABNORMAL RHYTHM ECG UNCONFIRMED REPORT Electronically signed by : Cristopher Ryder MD 07/28/2022 08:55:41
--- NOTE | 2022-07-26 11:55 | HMH.EDGENADL ---
Discharge Plan Disposition Patient Disposition: Home, Self-Care Condition: Fair Chief Complaint: Shortness of Breath/Dyspnea Prescriptions Prescriptions: No Action pantoprazole 40 mg tablet,delayed release (DR/EC) 40 mg PO DAILY Qty: 30 0RF oxycodone-acetaminophen [Percocet] 10-325 mg tablet 1 tab PO QID tizanidine 4 mg tablet 4 mg PO BID PRN (Reason: muscle spasms) Rx Instructions: TAKE ONE TABLET BY MOUTH TWICE DAILY NEEDED FOR MUSCLE SPASMS MAY CAUSE DROWSINESS ropinirole 0.25 mg tablet 0.25 mg PO HS Rx Instructions: TAKE ONE TABLET BY MOUTH EVERY DAY AT BEDTIME FOR restless LEGS Xarelto 20 mg tablet 20 mg PO QPMWITHMEAL Rx Instructions: TAKE ONE TABLET BY MOUTH EVERY DAY with evening meal gabapentin 800 mg tablet 800 mg PO TID montelukast 10 mg tablet 10 mg PO HS Rx Instructions: TAKE ONE TABLET BY MOUTH EVERY DAY AT BEDTIME FOR allergies aspirin 81 mg tablet,delayed release (DR/EC) 81 mg PO DAILY Rx Instructions: TAKE ONE TABLET BY MOUTH DAILY furosemide 40 mg tablet 40 mg PO DAILY Rx Instructions: TAKE ONE TABLET BY MOUTH EVERY DAY atorvastatin 40 mg tablet 40 mg PO HS fluoxetine 20 mg capsule 20 mg PO BID Rx Instructions: TAKE ONE CAPSULE BY MOUTH TWICE DAILY FOR MOOD Trelegy Ellipta 200-62.5-25 mcg blister with device 1 inh INHALATION DAILY diltiazem HCl 240 mg capsule,extended release 24 hr 240 mg PO DAILY bisoprolol fumarate 10 mg tablet 10 mg PO BID metformin 500 mg tablet 500 mg PO BID Rx Instructions: TAKE ONE TABLET BY MOUTH TWICE DAILY albuterol sulfate 90 mcg/actuation HFA aerosol inhaler 1 puff INHALATION Q6HP PRN (Reason: Shortness Of Breath) potassium chloride 20 mEq tablet,ER particles/crystals 20 meq PO DAILY Label Comments: TAKE ONE TABLET BY MOUTH EVERY DAY diazepam 5 mg Tablet 5 mg PO BID Januvia 25 mg tablet 25 mg PO DAILY dexamethasone 6 mg tablet 6 mg PO DAILY 6 Days Qty: 6 0RF levofloxacin 750 mg tablet 750 mg PO DAILY 8 Days Qty: 8 0RF insulin glargine [Lantus Solostar U-100 Insulin] 100 unit/mL (3 mL) Insulin Pen 40 unit SQ HS Qty: 15 0RF glipizide 10 mg tablet 10 mg PO BID Qty: 30 0RF Rx Instructions: Take with 2 largest meals of the day Referrals Follow up/Referrals: Ilir Jeffers MD [Primary Care Provider] - See instructions Activity Restrictions/Add. Instructions Additional Instructions/Restrictions: Follow-up with your primary care provider regarding this visit to the emergency department and potentially talking about group home placement versus palliative care. If you have any other concerning signs or symptoms, return to the ED for further evaluation, or your primary care provider. Clinical Impressions Clinical Impression: COPD (chronic obstructive pulmonary disease) Qualifiers: COPD type: COPD with acute exacerbation Qualified Code(s): J44.1 - Chronic obstructive pulmonary disease with (acute) exacerbation Discharge ED Provider: Jann Gonzalez General Adult HPI General Chief complaint: Shortness of Breath/Dyspnea Stated complaint: SOA, Covid+ 07/24 Time Seen by Provider: 07/26/22 11:10 Mode of Arrival: Wheelchair Source of Information: Patient Limitations: No Limitations Description of Symptoms (Recalled from ER Triage Doc. by RN): c/o soa, tired and no appeitte, pt states she had covid a fews ago and stil feeling bad from it. PT has home oxygen and breathing tx, states that [facility] has not brought her medicine for her breathing tx but they say they will be here today with it. History of Present Illness HPI narrative: This is a 67-year-old female with history of recent COVID-pneumonia, CHF, type 2 diabetes, hypertension, and persistent tobacco abuse who presents with recurrent shortness of breath. Patient states that she was just discharged
--- NOTE | 2022-07-26 12:08 | CT_ITS ---
FINAL REPORT TECHNIQUE: Thin section axial CT images were obtained from the lung apices to the upper abdomen. IV contrast was administered. MIP 3-D reformats were obtained. This study was performed with techniques to keep radiation doses as low as reasonably achievable (ALARA). Individualized dose reduction techniques using automated exposure control or adjustment of mA and/or kV according to the patient's size were employed. CLINICAL HISTORY: new SOB, recent covid and hospitalization COMPARISON: July 20, 2022 FINDINGS: There is postoperative change at the anterior base of the neck. A left subclavian pacemaker is present. The heart is enlarged. There is motion artifact. There is no adenopathy. There is no filling defect to suggest PE. There is no aortic dissection. There is no pericardial effusion. There are mild changes of emphysema. Mild bibasilar atelectasis is worse. There is partial improvement in multifocal ground-glass opacities with persistent opacity consistent with persistent pneumonia. No pleural effusion. Limited images of the upper abdomen demonstrate postoperative changes from cholecystectomy. There is a stable small right adrenal nodule that may represent an adenoma. IMPRESSION: No pulmonary embolism or aortic dissection. Partially improved but persistent opacities consistent with persistent pneumonia. Reviewed, Interpreted and Dictated by Vickey Christianson III, MD Transcribed by Joe Chamberlain Authenticated and . [facility]
[2022-07-26 12:24] LABS: Basophils # 0.1 K/mm3 (0-0.2); Basophils % 0.6 % (0.1-2.0); Eosinophils # 0.1 K/mm3 (0.0-0.4); Eosinophils % 0.8 % (0.1-12.0); Hematocrit 45.7 % (37.0-47.0); Hemoglobin 14.3 g/dL (12.2-16.2); Lymphocytes # 1.3 K/mm3 (0.7-4.5); Lymphocytes % 7.8 % (10-50); Mean Corpuscular HGB Conc 31.4 g/dL (31.8-35.4); Mean Corpuscular Hemoglobin 28.5 pg (27.0-31.2); Mean Corpuscular Volume 90.9 fl (81-99); Monocytes # 0.8 K/mm3 (0.1-1.0); Monocytes % 4.7 % (1.7-9.3); Neutrophils # 14.9 K/mm3 (1.8-7.8); Neutrophils % 86.2 % (37.0-80.0); Platelet Count 330 K/mm3 (142-424); Red Blood Count 5.03 M/mm3 (4.20-5.40); Red Cell Distribution Width 14.8 % (11.5-17.5); White Blood Count 17.3 K/mm3 (4.8-10.8)
[2022-07-26 12:27] LABS: MANUAL DIFFERENTIAL MANUAL DIFFERENTIAL (MANUAL DIFF)
[2022-07-26 12:28] LABS: Chloride 104 mmol/L (98-107); Sodium 139 mmol/L (136-145)
[2022-07-26 12:29] LABS: Potassium 3.9 mmoL/L (3.5-5.1)
[2022-07-26 12:31] LABS: Anion Gap 13.9 mEq/L (5-15); Blood Urea Nitrogen 32 mg/dl (7-17); Carbon Dioxide 25 mmol/L (22.0-30.0); Creatinine Clearance Estimated 83 mL/min (50-200); Estimated Glomerular Filt Rate 49 ml/min (>60); GFR (African American) 60 ML/MIN (>60)
[2022-07-26 12:32] LABS: Calcium 8.9 mg/dl (8.4-10.2); Glucose 329 mg/dl (74-100)
[2022-07-26 12:48] LABS: Troponin I < 0.01 ng/ml (0.00-0.034)
[2022-07-26 13:25] LABS: Lymphocytes % 16 % (10-50); Monocytes % 2 % (2-9); Neutrophils % 82 % (42-76); Platelet Estimate Normal; RBC Morphology Normal; Total Cells Counted 100
[2022-07-26 13:35] LABS: ABG Base Excess -4.9 mmol/L (-2.4-2.3); ABG HCO3 19.9 mmhg (22.0-26.0); ABG Oxygen Saturation 96 % (90-100); ABG PCO2 33.2 mmhg (35.0-45.0); ABG PO2 78.8 mmhg (80-100); ABG TCO2 20.9 mmhg (23-27)
[2022-07-26 13:38] LABS: Allen's Test Acceptable; Oxygen 4 L NC %; Source Right Radial
--- NOTE | 2022-07-26 13:45 | EXP.PHA.CONS ---
Pharmacy Consult Date: 07/26/22 Time: 13:45 Referring provider: DR. GARDNER Reason for Consult:: VANCOMYCIN DOSING Allergies Allergy/AdvReac Type Severity Reaction Status Date / Time verapamil Allergy Severe Rash Verified 07/07/22 13:45 Iodine and Iodide Containing Allergy Mild Rash Verified 07/07/22 13:45 Produc Penicillins [PENICILLINS] Allergy Unknown I-RASH Verified 07/07/22 13:45 Sulfa (Sulfonamide Allergy Unknown NA-NAUSEA/V Verified 07/07/22 13:45 Antibiotics) OMITING [SULFA (SULFONAMIDE ANTIBIOTICS)] Home Medications Medication Instructions Recorded Confirmed Type aspirin 81 mg tablet,delayed 81 mg PO DAILY heart health 07/16/22 07/20/22 History release atorvastatin 40 mg tablet 40 mg PO HS High cholesterol 07/16/22 07/20/22 History bisoprolol fumarate 10 mg tablet 10 mg PO BID blood pressure 07/16/22 07/20/22 History diltiazem HCl 240 mg capsule,24 240 mg PO DAILY heart 07/16/22 07/20/22 History hr,extended release fluoxetine 20 mg capsule 20 mg PO BID mood 07/16/22 07/20/22 History fluticasone fur. 200 mcg-umeclid 1 inh inhalation DAILY codp 07/16/22 07/20/22 History 62.5 mcg-vilant 25 mcg inhalat.powder (Trelegy Ellipta) furosemide 40 mg tablet 40 mg PO DAILY diuretics 07/16/22 07/20/22 History gabapentin 800 mg tablet 800 mg PO TID Pain 07/16/22 07/20/22 History metformin 500 mg tablet 500 mg PO BID Diabetes 07/16/22 07/20/22 History montelukast 10 mg tablet 10 mg PO HS allergies 07/16/22 07/21/22 History oxycodone-acetaminophen 10 mg-325 1 tab PO QID pain 07/16/22 07/20/22 History mg tablet (Percocet) rivaroxaban 20 mg tablet (Xarelto) 20 mg PO QPMWITHMEAL Blood thinner 07/16/22 07/20/22 History ropinirole 0.25 mg tablet 0.25 mg PO HS restless leg syndrome 07/16/22 07/21/22 History tizanidine 4 mg tablet 4 mg PO BID PRN muscle spasms 07/16/22 07/20/22 History albuterol sulfate 90 mcg/actuation 1 puff inhalation Q6HP PRN 07/17/22 07/20/22 History aerosol inhaler Shortness Of Breath diazepam 5 mg tablet 5 mg PO BID Anxiety 07/17/22 07/20/22 History pantoprazole 40 mg tablet,delayed 40 mg PO DAILY GERD #30 tabs 07/17/22 07/20/22 Rx release potassium chloride 20 mEq 20 meq PO DAILY potassium 07/17/22 07/20/22 History tablet,extended release(part/cryst) supplement sitagliptin phosphate 25 mg tablet 25 mg PO DAILY Diabetes 07/20/22 07/20/22 History (Januvia) dexamethasone 6 mg tablet 6 mg PO DAILY 6 days #6 tabs 07/24/22 Rx glipizide 10 mg tablet 10 mg PO BID #30 tabs 07/24/22 Rx insulin glargine 100 unit/mL (3 40 unit (0.4 mL) SQ HS #15 mL 07/24/22 Rx mL) subcutaneous pen (Lantus Solostar U-100 Insulin) levofloxacin 750 mg tablet 750 mg PO DAILY 8 days #8 tabs 07/24/22 Rx New Prescriptions to Start Prescriptions: Height: 1.75 m Weight: 108.862 kg Laboratory Results:: Laboratory Results - last 24 hr 07/26/22 11:15: WBC 17.3 H D, RBC 5.03, Hgb 14.3, Hct 45.7, MCV 90.9, MCH 28.5, MCHC 31.4 L, RDW 14.8, Plt Count 330 D, MPV 10.0, Neut % (Auto) 86.2 H, Lymph % (Auto) 7.8 L, [place] % (Auto) 4.7, Eos % (Auto) 0.8, Baso % (Auto) 0.6, Neut # (Auto) 14.9 H, Lymph # (Auto) 1.3, [place] # (Auto) 0.8, Eos # (Auto) 0.1, Baso # (Auto) 0.1, Total Counted 100, Neutrophils % (Manual) 82 H, Lymphocytes % (Manual) 16, Monocytes % (Manual) 2, Platelet Estimate Normal, RBC Morphology Normal 07/26/22 11:15: Sodium 139, Potassium 3.9, Chloride 104, Carbon Dioxide 25, Anion Gap 13.9, BUN 32 H, Creatinine 1.10 H D, Estimated Creat Clear 83, Estimated GFR 49 L, Est GFR ( Amer) 60, Glucose 329 H, Calcium 8.9, Troponin I < 0.01 07/26/22 12:08: Specimen Source Right radial, O2 % 4 l nc, ABG pH 7.40, ABG pCO2 33.2 L, ABG pO2 78.8 L, ABG HCO3 19.9 L, ABG Total CO2 20.9 L, ABG O2 Saturation 96, ABG Base Excess -4.9 L, Roman Test Acceptable Medical History: Medical History (Updated 07/23/22 @ 00:11 by Background Daemon) CAD (coronary artery disease) Cardiac pacemaker in situ COPD (chron
--- NOTE | 2022-07-26 15:05 | EXP.MED.CON ---
History of Present Illness *Admission Date: 07/26/22 *Reason for visit:: cough, fatigue *History of present illness: Ms. Stallings is a 67-year-old female with oxygen dependent COPD, diastolic CHF, poorly controlled diabetes, and multiple recent admissions for COVID. She presented to the ER today with complaint of shortness of breath, feeling tired and decreased appetite. She was just discharged 2 days ago on oral antibiotics and steroids. States she just wants to feel better. On arrival to the ER she reports not wearing her oxygen during the day at home. She is on evaluation. Denies fever, chills, nausea or vomiting. No confusion or neurologic deficits. Has chest wall discomfort due to coughing, present at last admission. Denies any abdominal pain. Medicine was consulted to evaluate for possible admission. On my evaluation, she states that she just wants to feel better. She also states that since being home she has been smoking several cigarettes daily. She has not been using her nebulizer as she has the machine but does not have medication for it yet. Wears oxygen at night (4 L) but has not been wearing it during the day even though she was discharged on continuous oxygen just 2 days ago. She appears at her baseline level of function and is marginally better than when she was discharged. Labs in the ER concerning for leukocytosis, this is consistent with demarginalization from the initiation of steroids 2 days ago. Remainder of labs otherwise fairly consistent with discharge labs. Case management assisting with discussing placement options with patient. [facility] Disclaimer: The information contained in this section may have been updated after the patient was seen, as this information can be updated by other users. Medical History CAD (coronary artery disease) Cardiac pacemaker in situ COPD (chronic obstructive pulmonary disease) Diabetes (~06/2020) Fatigue HHD (hypertensive heart disease) Hyperlipemia On statin therapy PAF (paroxysmal atrial fibrillation) Surgical History History of arthroplasty of right knee Hx of cholecystectomy Hx of tonsillectomy Family History Diabetes Coronary artery disease Hyperlipidemia Cancer Hypertension Social History Smoking Status: Current every day smoker tobacco type: cigarettes packs per day: 1 second hand exposure: Yes alcohol intake: never substance use type: denies use current occupational status: retired Travel in the last 8 weeks: None household members: none housing: house marital status: number of children: 0 current occupational exposures/hazards: No caffeine: Yes Review of Systems Review of Systems Review of systems (narrative): 14 point review of systems performed, pertinent positives and negatives as per HPI Exam Data for Last 24 hours Vital signs and Labs for Last 24 Hours: Temp Pulse Resp BP Pulse Ox 98.2 F 62 18 132/73 98 07/26/22 11:06 07/26/22 11:31 07/26/22 11:06 07/26/22 11:31 07/26/22 11:31 Laboratory Results - last 24 hr 07/26/22 11:15: WBC 17.3 H D, RBC 5.03, Hgb 14.3, Hct 45.7, MCV 90.9, MCH 28.5, MCHC 31.4 L, RDW 14.8, Plt Count 330 D, MPV 10.0, Neut % (Auto) 86.2 H, Lymph % (Auto) 7.8 L, [place] % (Auto) 4.7, Eos % (Auto) 0.8, Baso % (Auto) 0.6, Neut # (Auto) 14.9 H, Lymph # (Auto) 1.3, [place] # (Auto) 0.8, Eos # (Auto) 0.1, Baso # (Auto) 0.1, Total Counted 100, Neutrophils % (Manual) 82 H, Lymphocytes % (Manual) 16, Monocytes % (Manual) 2, Platelet Estimate Normal, RBC Morphology Normal 07/26/22 11:15: Sodium 139, Potassium 3.9, Chloride 104, Carbon Dioxide 25, Anion Gap 13.9, BUN 32 H, Creatinine 1.10 H D, Estimated Creat Clear 83, Estimated GFR 49 L, Est GFR ( Amer) 60, Glucose 329 H, Calcium 8.9
--- NOTE | 2022-07-26 15:11 | SW/DCPLANNER ---
I spoke with this patient in the ED regarding services at home. Patient currently receives home health services through [facility]. Patient was also set up with home O2 and nebulizer machine at previous discharge. Patient stated that she does not wear home O2 24/7 and has not received nebulizer medications yet. Dr Beatty has instructed this patient to wear home O2 24/7 and that he will call nebulizer prescription [facility] today to pharmacy picking tech. I have also provided this patient with information regarding [employer] and follow up MD appointment at Dr Jeffers's office has been made for Sunday07/28/22. I have also patient information to [facility] for Medicaid Waiver services. Patient will discharge home from ED today.
[2022-07-26 15:20] LABS: Influenza A, PCR Not Detected (NotDetected); Influenza B, PCR Not Detected (NotDetected)
[2022-07-26 15:47] LABS: Troponin I < 0.01 ng/ml (0.00-0.034)
[2022-07-26 16:21] LABS: Coronavirus 19, PCR Detected (NotDetected)
--- NOTE | 2022-07-26 16:50 | PC.NURSE ---
PT WENT TO [facility] WITH W/C AND OXYGEN
== END 2022-07-26 17:30 | disposition home or self-care (01) ==
PROVIDERS: Emergency Provider Emergency Medicine; PCP Emergency Medicine
DX: J44.1 Chronic obstructive pulmonary disease with (acute) exacerbation (principal); J12.82 Pneumonia due to coronavirus disease 2019; R06.03 Acute respiratory distress; D72.829 Elevated white blood cell count, unspecified; R11.2 Nausea with vomiting, unspecified; R53.82 Chronic fatigue, unspecified; I11.0 Hypertensive heart disease with heart failure; I48.0 Paroxysmal atrial fibrillation; N17.9 Acute kidney failure, unspecified; E78.5 Hyperlipidemia, unspecified; F17.210 Nicotine dependence, cigarettes, uncomplicated; Z79.01 Long term (current) use of anticoagulants; Z79.4 Long term (current) use of insulin; Z79.51 Long term (current) use of inhaled steroids; Z79.82 Long term (current) use of aspirin; Z79.84 Long term (current) use of oral hypoglycemic drugs; Z99.81 Dependence on supplemental oxygen; Z79.899 Other long term (current) drug therapy; Z88.0 Allergy status to penicillin; Z88.2 Allergy status to sulfonamides; Z88.8 Allergy status to other drugs, medicaments and biological substances; Z95.0 Presence of cardiac pacemaker; Z91.14 Patient's other noncompliance with medication regimen; Z82.49 Family history of ischemic heart disease and other diseases of the circulatory system; Z83.438 Family history of other disorder of lipoprotein metabolism and other lipidemia; Z80.9 Family history of malignant neoplasm, unspecified; Z83.3 Family history of diabetes mellitus
CPT/HCPCS: 36415; 71275; 80048; 82803; 84484; 85007; 85025; 87040; 93005; 96361; 96374; 96375; 99285; C9803; J3370; Q9967; U0003; U0005

== ENCOUNTER 2022-07-28 09:55 | Emergency (ER) | payer MEDICARE, MEDICAID, SELFPAY ==
[2022-07-28] VITALS (7 sets, daily range): BP systolic 134–164; BP diastolic 66–90; PULSE 67–74; RESP 18–21; TEMP 36.8; O2SAT 7–98; BMI 29.3
--- NOTE | 2022-07-28 10:24 | XR_ITS ---
FINAL REPORT CLINICAL HISTORY: chills, cough, recent pna COMPARISON: 07/24/2022 FINDINGS: Two views of the chest were obtained. A left subclavian pacemaker is present. The heart size and pulmonary vascularity are within normal limits. The mediastinum is normal. There is improved left lung base opacity which may represent atelectasis or pneumonia. There is no pneumothorax. The bony thorax is intact. IMPRESSION: Improved left lung base atelectasis or pneumonia. Reviewed, Interpreted and Dictated by Vickey Christianson III, MD Transcribed by June Sarmiento Authenticated and [facility]
--- NOTE | 2022-07-28 10:24 | HMH.EDGENADL ---
Discharge Plan Disposition Patient Disposition: Home, Self-Care Condition: Fair Chief Complaint: Weakness Prescriptions Prescriptions: No Action pantoprazole 40 mg tablet,delayed release (DR/EC) 40 mg PO DAILY Qty: 30 0RF oxycodone-acetaminophen [Percocet] 10-325 mg tablet 1 tab PO QID tizanidine 4 mg tablet 4 mg PO BID PRN (Reason: muscle spasms) Rx Instructions: TAKE ONE TABLET BY MOUTH TWICE DAILY NEEDED FOR MUSCLE SPASMS MAY CAUSE DROWSINESS ropinirole 0.25 mg tablet 0.25 mg PO HS Rx Instructions: TAKE ONE TABLET BY MOUTH EVERY DAY AT BEDTIME FOR restless LEGS Xarelto 20 mg tablet 20 mg PO QPMWITHMEAL Rx Instructions: TAKE ONE TABLET BY MOUTH EVERY DAY with evening meal gabapentin 800 mg tablet 800 mg PO TID montelukast 10 mg tablet 10 mg PO HS Rx Instructions: TAKE ONE TABLET BY MOUTH EVERY DAY AT BEDTIME FOR allergies aspirin 81 mg tablet,delayed release (DR/EC) 81 mg PO DAILY Rx Instructions: TAKE ONE TABLET BY MOUTH DAILY furosemide 40 mg tablet 40 mg PO DAILY Rx Instructions: TAKE ONE TABLET BY MOUTH EVERY DAY atorvastatin 40 mg tablet 40 mg PO HS fluoxetine 20 mg capsule 20 mg PO BID Rx Instructions: TAKE ONE CAPSULE BY MOUTH TWICE DAILY FOR MOOD Trelegy Ellipta 200-62.5-25 mcg blister with device 1 inh INHALATION DAILY diltiazem HCl 240 mg capsule,extended release 24 hr 240 mg PO DAILY bisoprolol fumarate 10 mg tablet 10 mg PO BID metformin 500 mg tablet 500 mg PO BID Rx Instructions: TAKE ONE TABLET BY MOUTH TWICE DAILY albuterol sulfate 90 mcg/actuation HFA aerosol inhaler 1 puff INHALATION Q6HP PRN (Reason: Shortness Of Breath) potassium chloride 20 mEq tablet,ER particles/crystals 20 meq PO DAILY Label Comments: TAKE ONE TABLET BY MOUTH EVERY DAY diazepam 5 mg Tablet 5 mg PO BID Januvia 25 mg tablet 25 mg PO DAILY dexamethasone 6 mg tablet 6 mg PO DAILY 6 Days Qty: 6 0RF levofloxacin 750 mg tablet 750 mg PO DAILY 8 Days Qty: 8 0RF insulin glargine [Lantus Solostar U-100 Insulin] 100 unit/mL (3 mL) Insulin Pen 40 unit SQ HS Qty: 15 0RF glipizide 10 mg tablet 10 mg PO BID Qty: 30 0RF Rx Instructions: Take with 2 largest meals of the day ipratropium-albuterol 0.5 mg-3 mg(2.5 mg base)/3 mL solution for nebulization 3 ml inhalation Q6H PRN (Reason: wheezing) Qty: 180 0RF Referrals Follow up/Referrals: Ilir Jeffers MD [Primary Care Provider] - See instructions Clinical Impressions Clinical Impression: Chills Discharge ED Provider: Jann Gonzalez General Adult HPI General Chief complaint: Weakness Stated complaint: Shakes,SOA, Time Seen by Provider: 07/28/22 10:04 Mode of Arrival: Wheelchair Source of Information: Patient Limitations: No Limitations Description of Symptoms (Recalled from ER Triage Doc. by RN): pt to ed c/o weakness. pt states she has not had an appetite and has been weaker than normal. pt reports mild soa and has oxygen at home. pt arrived to ed on room air. pt denies cp. History of Present Illness HPI narrative: This is a 67-year-old female with history of COPD currently still smoking on 2 L nasal cannula at home and on antibiotics for recent pneumonia, diabetes, CHF, CAD, morbid obesity, hypertension, hyperlipidemia presenting with chills. Patient states that she has been having chills for less than 12 hours. She woke up with them the morning of 07/28. Denies overt fevers, diaphoresis, shortness of breath, chest pain, but has had nausea and diarrhea. Also has had associated dysuria. Diarrhea is nonbloody, patient has not vomited. Not noticed anything that makes it better. Patient has had numerous recent interactions with healthcare, but no relevant travel. Currently on Levaquin for pneumonia Related Data Home Medications Medication Inst
--- NOTE | 2022-07-28 10:35 | PC.NURSE ---
pt ambulated to the restroom to provide urine sample
--- NOTE | 2022-07-28 10:35 | PC.NURSE ---
IV established and blood sent to the lab
--- NOTE | 2022-07-28 10:49 | PC.NURSE ---
PT GOING OVER FOR CXR VIA W/C
[2022-07-28 10:53] LABS: Influenza A, PCR Not Detected (NotDetected)
[2022-07-28 10:54] LABS: Influenza B, PCR Not Detected (NotDetected)
[2022-07-28 10:57] LABS: Basophils # 0.1 K/mm3 (0-0.2); Basophils % 0.7 % (0.1-2.0); Eosinophils % 0.2 % (0.1-12.0); Hematocrit 45.1 % (37.0-47.0); Hemoglobin 14.3 g/dL (12.2-16.2); Lymphocytes % 6.1 % (10-50); Mean Corpuscular HGB Conc 31.7 g/dL (31.8-35.4); Mean Corpuscular Hemoglobin 28.8 pg (27.0-31.2); Mean Corpuscular Volume 90.7 fl (81-99); Mean Platelet Volume 9.8 fl (7.4-10.4); Monocytes % 5.8 % (1.7-9.3); Neutrophils # 14.3 K/mm3 (1.8-7.8); Neutrophils % 87.2 % (37.0-80.0); Platelet Count 253 K/mm3 (142-424); Red Blood Count 4.97 M/mm3 (4.20-5.40); Red Cell Distribution Width 14.8 % (11.5-17.5); White Blood Count 16.4 K/mm3 (4.8-10.8)
[2022-07-28 11:01] LABS: MANUAL DIFFERENTIAL MANUAL DIFFERENTIAL (MANUAL DIFF); Microscopic, Urine URINE MICROSCOPIC (MICROSCOPIC)
--- NOTE | 2022-07-28 11:02 | PC.NURSE ---
pt returned from radiology
[2022-07-28 11:03] LABS: Appearance,Urine SL CLOUDY (Clear); Bilirubin,Urine Negative (Negative); Blood, Urine Negative (Negative); Chloride 105 mmol/L (98-107); Color,Urine YELLOW (Yellow); Glucose,Urine (UA) 2+ (Negative); Ketones,Urine TRACE (Negative); Leukocyte Esterase,Urine 1+ (Negative); Nitrate,Urine Negative (Negative); Potassium 4.2 mmoL/L (3.5-5.1); Protein,Urine TRACE (Negative); Sodium 137 mmol/L (136-145)
[2022-07-28 11:06] LABS: Blood Urea Nitrogen 27 mg/dl (7-17); Creatinine Clearance Estimated 76 mL/min (50-200); Estimated Glomerular Filt Rate 55 ml/min (>60); GFR (African American) 67 ML/MIN (>60)
[2022-07-28 11:07] LABS: Anion Gap 13.2 mEq/L (5-15); Calcium 8.9 mg/dl (8.4-10.2); Carbon Dioxide 23 mmol/L (22.0-30.0); Glucose 326 mg/dl (74-100)
[2022-07-28 11:14] LABS: Lymphocytes % 9 % (10-50); Monocytes % 3 % (2-9); Neutrophils % 87 % (42-76); Platelet Estimate Normal; RBC Morphology Normal; Total Cells Counted 100
[2022-07-28 11:22] LABS: Bacteria,Urine Trace /lpf; Squamous Epithelial Cell,Urine Occasional #/hpf (0-5); Yeast,Urine Occasional /lpf
[2022-07-28 11:34] LABS: Coronavirus 19, PCR Detected (NotDetected)
--- NOTE | 2022-07-28 12:00 | PC.NURSE ---
rounded on pt at this time. no needs voiced at this time.
--- NOTE | 2022-07-28 12:24 | PC.NURSE ---
Fozia Arguelles called to come cook pickled meat patient.
--- NOTE | 2022-07-28 13:05 | PC.NURSE ---
pt's ride is here to pick her up for d/c
== END 2022-07-28 13:17 | disposition home or self-care (01) ==
PROVIDERS: Emergency Provider Emergency Medicine; PCP Emergency Medicine
DX: U07.1 COVID-19 (principal); R06.02 Shortness of breath; R53.1 Weakness; R19.7 Diarrhea, unspecified; R30.0 Dysuria; R53.82 Chronic fatigue, unspecified; I11.0 Hypertensive heart disease with heart failure; I48.0 Paroxysmal atrial fibrillation; I50.9 Heart failure, unspecified; E78.5 Hyperlipidemia, unspecified; E11.9 Type 2 diabetes mellitus without complications; J44.9 Chronic obstructive pulmonary disease, unspecified; G25.81 Restless legs syndrome; E66.01 Morbid (severe) obesity due to excess calories; F17.210 Nicotine dependence, cigarettes, uncomplicated; Z79.01 Long term (current) use of anticoagulants; Z79.4 Long term (current) use of insulin; Z79.51 Long term (current) use of inhaled steroids; Z79.82 Long term (current) use of aspirin; Z79.899 Other long term (current) drug therapy; Z88.0 Allergy status to penicillin; Z88.2 Allergy status to sulfonamides; Z88.8 Allergy status to other drugs, medicaments and biological substances; Z68.29 Body mass index [BMI] 29.0-29.9, adult; Z95.0 Presence of cardiac pacemaker; Z87.01 Personal history of pneumonia (recurrent); Z82.49 Family history of ischemic heart disease and other diseases of the circulatory system; Z80.9 Family history of malignant neoplasm, unspecified; Z83.438 Family history of other disorder of lipoprotein metabolism and other lipidemia; Z83.3 Family history of diabetes mellitus
CPT/HCPCS: 71046; 80048; 81001; 85007; 85025; 87086; 96360; 99284; C9803; U0003; U0005

== ENCOUNTER 2022-07-29 13:26 | Emergency (ER) | payer MEDICARE, MEDICAID, SELFPAY ==
[2022-07-29] VITALS (8 sets, daily range): BP systolic 101–129; BP diastolic 53–74; PULSE 69–78; RESP 16–18; TEMP 37.2; O2SAT 94–95; BMI 29.5
--- NOTE | 2022-07-29 13:33 | XR_ITS ---
PROCEDURE INFORMATION: Exam: XR Chest Exam date and time: 07/29/2022 1:54 PM Age: 67 years old Clinical indication: Shortness of breath; Additional info: Sob/cp TECHNIQUE: Imaging protocol: Radiologic exam of the chest. Views: 1 view. COMPARISON: CR XR CHEST 2V 07/28/2022 10:40 AM FINDINGS: Tubes, catheters and devices: Dual lead pacemaker device Lungs: Unremarkable. No consolidation. Pleural spaces: Unremarkable. No pleural effusion. No pneumothorax. Heart/Mediastinum: Unremarkable. No cardiomegaly. Bones/joints: Unremarkable. IMPRESSION: No evidence of acute cardiopulmonary disease.
--- NOTE | 2022-07-29 13:36 | ECG_ITS ---
APPROVED REPORT Exam: Resting ECG HR:80 bpm ECG Measurements Heart Rate 80 AXES UT 146 P 56 QRSd 76 QRS 18 QT 368 T 38 QTc 403 Conclusion SINUS RHYTHM LOW QRS VOLTAGE IN PRECORDIAL LEADS [QRS DEFLECTION < 1.0 mV IN CHEST LEADS] MODERATE ST DEPRESSION [0.05+ mV ST DEPRESSION] ABNORMAL ECG UNCONFIRMED REPORT Electronically signed by : Cristopher Ryder MD 07/31/2022 20:04:09
--- NOTE | 2022-07-29 14:04 | HMH.EDGENADL ---
Discharge Plan Disposition Patient Disposition: Home, Self-Care Condition: Good Chief Complaint: Nausea/Vomiting/Diarrhea Prescriptions Prescriptions: No Action pantoprazole 40 mg tablet,delayed release (DR/EC) 40 mg PO DAILY Qty: 30 0RF oxycodone-acetaminophen [Percocet] 10-325 mg tablet 1 tab PO QID tizanidine 4 mg tablet 4 mg PO BID PRN (Reason: muscle spasms) Rx Instructions: TAKE ONE TABLET BY MOUTH TWICE DAILY NEEDED FOR MUSCLE SPASMS MAY CAUSE DROWSINESS ropinirole 0.25 mg tablet 0.25 mg PO HS Rx Instructions: TAKE ONE TABLET BY MOUTH EVERY DAY AT BEDTIME FOR restless LEGS Xarelto 20 mg tablet 20 mg PO QPMWITHMEAL Rx Instructions: TAKE ONE TABLET BY MOUTH EVERY DAY with evening meal gabapentin 800 mg tablet 800 mg PO TID montelukast 10 mg tablet 10 mg PO HS Rx Instructions: TAKE ONE TABLET BY MOUTH EVERY DAY AT BEDTIME FOR allergies aspirin 81 mg tablet,delayed release (DR/EC) 81 mg PO DAILY Rx Instructions: TAKE ONE TABLET BY MOUTH DAILY furosemide 40 mg tablet 40 mg PO DAILY Rx Instructions: TAKE ONE TABLET BY MOUTH EVERY DAY atorvastatin 40 mg tablet 40 mg PO HS fluoxetine 20 mg capsule 20 mg PO BID Rx Instructions: TAKE ONE CAPSULE BY MOUTH TWICE DAILY FOR MOOD Trelegy Ellipta 200-62.5-25 mcg blister with device 1 inh INHALATION DAILY diltiazem HCl 240 mg capsule,extended release 24 hr 240 mg PO DAILY bisoprolol fumarate 10 mg tablet 10 mg PO BID metformin 500 mg tablet 500 mg PO BID Rx Instructions: TAKE ONE TABLET BY MOUTH TWICE DAILY albuterol sulfate 90 mcg/actuation HFA aerosol inhaler 1 puff INHALATION Q6HP PRN (Reason: Shortness Of Breath) potassium chloride 20 mEq tablet,ER particles/crystals 20 meq PO DAILY Label Comments: TAKE ONE TABLET BY MOUTH EVERY DAY diazepam 5 mg Tablet 5 mg PO BID Januvia 25 mg tablet 25 mg PO DAILY dexamethasone 6 mg tablet 6 mg PO DAILY 6 Days Qty: 6 0RF levofloxacin 750 mg tablet 750 mg PO DAILY 8 Days Qty: 8 0RF insulin glargine [Lantus Solostar U-100 Insulin] 100 unit/mL (3 mL) Insulin Pen 40 unit SQ HS Qty: 15 0RF glipizide 10 mg tablet 10 mg PO BID Qty: 30 0RF Rx Instructions: Take with 2 largest meals of the day ipratropium-albuterol 0.5 mg-3 mg(2.5 mg base)/3 mL solution for nebulization 3 ml inhalation Q6H PRN (Reason: wheezing) Qty: 180 0RF Referrals Follow up/Referrals: Ilir Jeffers MD [Primary Care Provider] - See instructions Clinical Impressions Clinical Impression: Nausea & vomiting, Diarrhea Instructions Patient Instructions: DI for Nausea -- Adult, DI for Diarrhea and Traveler's Diarrhea -- Adult, Diarrhea Discharge ED Provider: Geovanny Morrison General Adult HPI General Chief complaint: Nausea/Vomiting/Diarrhea Stated complaint: SOA,Dirrahea Time Seen by Provider: 07/29/22 13:32 History of Present Illness HPI narrative: 67-year-old female history of hypoxemic respiratory failure, congestive heart failure, COPD, CAD, recently diagnosed with COVID, recently been on antibiotics. She presents with 2 complaints, shortness of breath its been going on for the last few days, reports some wheezing. Denies chest pain, productive cough, fever, chills. She also reports large amount of diarrhea pretty frequently, decreased appetite and difficulty eating. Denies overt vomiting, abdominal pain, is not had any treatments for this thus far. She does states she was recently in the hospital when she had COVID and was discharged on antibiotics. Related Data Home Medications Medication Instructions Recorded Confirmed aspirin 81 mg tablet,delayed 81 mg PO DAILY heart health 07/16/22 07/20/22 release atorvastatin 40 mg tablet 40 mg PO HS High cholesterol 07/16/22 07/20/22 bisoprolol fumarate 10 mg tablet 10 mg PO BID b
[2022-07-29 16:30] LABS: Basophils # 0.1 K/mm3 (0-0.2); Basophils % 0.5 % (0.1-2.0); Eosinophils % 0.3 % (0.1-12.0); Hematocrit 42.9 % (37.0-47.0); Hemoglobin 14.2 g/dL (12.2-16.2); Lymphocytes # 0.6 K/mm3 (0.7-4.5); Lymphocytes % 4.7 % (10-50); Mean Corpuscular HGB Conc 33.1 g/dL (31.8-35.4); Mean Corpuscular Hemoglobin 28.8 pg (27.0-31.2); Mean Corpuscular Volume 87.1 fl (81-99); Mean Platelet Volume 9.3 fl (7.4-10.4); Monocytes # 0.5 K/mm3 (0.1-1.0); Monocytes % 4.1 % (1.7-9.3); Neutrophils # 11.4 K/mm3 (1.8-7.8); Neutrophils % 90.5 % (37.0-80.0); Platelet Count 173 K/mm3 (142-424); Red Blood Count 4.92 M/mm3 (4.20-5.40); Red Cell Distribution Width 14.7 % (11.5-17.5); White Blood Count 12.6 K/mm3 (4.8-10.8)
[2022-07-29 16:35] LABS: Chloride 105 mmol/L (98-107); Sodium 134 mmol/L (136-145)
[2022-07-29 16:36] LABS: Potassium 4.5 mmoL/L (3.5-5.1)
[2022-07-29 16:38] LABS: Alanine Aminotransferase 45 U/L (12-78); Albumin Level 3.3 g/dl (3.5-5.0); Albumin/Globulin Ratio 1.6 (1.1-1.8); Alkaline Phosphatase 107 U/L (38-126); Anion Gap 13.5 mEq/L (5-15); Aspartate Amino Transferase 37 U/L (14-36); Bilirubin,Total 0.9 mg/dl (0.2-1.3); Blood Urea Nitrogen 22 mg/dl (7-17); Carbon Dioxide 20 mmol/L (22.0-30.0); Creatinine Clearance Estimated 76 mL/min (50-200); Estimated Glomerular Filt Rate 55 ml/min (>60); GFR (African American) 67 ML/MIN (>60); Globulin 2.1 g/dL (1.3-3.2); Total Protein,Serum 5.4 g/dl (6.3-8.2)
[2022-07-29 16:39] LABS: Calcium 8.5 mg/dl (8.4-10.2); Glucose 316 mg/dl (74-100); Magnesium 1.7 mg/dl (1.6-2.3)
[2022-07-29 16:48] LABS: NT Pro Brain Natriuretic Pep. 454 pg/mL (0-125)
[2022-07-29 16:51] LABS: MANUAL DIFFERENTIAL MANUAL DIFFERENTIAL (MANUAL DIFF)
[2022-07-29 16:53] LABS: Influenza A, PCR Not Detected (NotDetected); Influenza B, PCR Not Detected (NotDetected)
[2022-07-29 16:57] LABS: Troponin I < 0.01 ng/ml (0.00-0.034)
[2022-07-29 17:14] LABS: Lymphocytes % 1 % (10-50); Monocytes % 2 % (2-9); Neutrophils % 97 % (42-76); Platelet Estimate Normal; RBC Morphology Normal; Total Cells Counted 100
[2022-07-29 17:56] LABS: Coronavirus 19, PCR Detected (NotDetected)
== END 2022-07-29 17:42 | disposition home or self-care (01) ==
PROVIDERS: Emergency Provider Emergency Medicine; PCP Emergency Medicine
DX: U07.1 COVID-19 (principal); R06.02 Shortness of breath; R19.7 Diarrhea, unspecified; R53.82 Chronic fatigue, unspecified; I11.0 Hypertensive heart disease with heart failure; I50.9 Heart failure, unspecified; I25.10 Atherosclerotic heart disease of native coronary artery without angina pectoris; I48.0 Paroxysmal atrial fibrillation; E78.5 Hyperlipidemia, unspecified; E11.9 Type 2 diabetes mellitus without complications; M62.838 Other muscle spasm; G25.81 Restless legs syndrome; J44.9 Chronic obstructive pulmonary disease, unspecified; F17.210 Nicotine dependence, cigarettes, uncomplicated; Z79.01 Long term (current) use of anticoagulants; Z79.4 Long term (current) use of insulin; Z79.51 Long term (current) use of inhaled steroids; Z79.82 Long term (current) use of aspirin; Z79.84 Long term (current) use of oral hypoglycemic drugs; Z79.899 Other long term (current) drug therapy; Z88.0 Allergy status to penicillin; Z88.2 Allergy status to sulfonamides; Z88.8 Allergy status to other drugs, medicaments and biological substances; Z95.0 Presence of cardiac pacemaker; Z82.49 Family history of ischemic heart disease and other diseases of the circulatory system; Z80.9 Family history of malignant neoplasm, unspecified; Z83.3 Family history of diabetes mellitus; Z83.438 Family history of other disorder of lipoprotein metabolism and other lipidemia; Z85.9 Personal history of malignant neoplasm, unspecified
CPT/HCPCS: 71045; 80053; 83735; 83880; 84484; 85007; 85025; 93005; 99284; C9803; U0003; U0005

== ENCOUNTER 2022-07-30 11:56 | Emergency (ER) | payer MEDICARE, MEDICAID, SELFPAY ==
[2022-07-30 11:55] VITALS: BP 118/76; PULSE 71; RESP 18; O2SAT 96
[2022-07-30 11:56] VITALS: BP 118/76; PULSE 74; RESP 18; TEMP 36.8; O2SAT 97; BMI 29.5
--- NOTE | 2022-07-30 12:06 | ECG_ITS ---
APPROVED REPORT Exam: Resting ECG HR:70 bpm ECG Measurements Heart Rate 70 AXES LA 141 P 80 QRSd 86 QRS 39 QT 389 T 41 QTc 409 Conclusion ELECTRONIC ATRIAL PACEMAKER ABNORMAL RHYTHM ECG UNCONFIRMED REPORT Electronically signed by : Cristopher Ryder MD 07/30/2022 22:20:39
[2022-07-30 12:24] VITALS: BP 110/62; PULSE 72; O2SAT 95
[2022-07-30 12:30] VITALS: BP 119/60; PULSE 73; O2SAT 95
[2022-07-30 12:31] LABS: Basophils # 0.1 K/mm3 (0-0.2); Basophils % 0.4 % (0.1-2.0); Eosinophils # 0.1 K/mm3 (0.0-0.4); Eosinophils % 0.8 % (0.1-12.0); Hematocrit 45.9 % (37.0-47.0); Hemoglobin 14.8 g/dL (12.2-16.2); Lymphocytes # 1.7 K/mm3 (0.7-4.5); Lymphocytes % 10.5 % (10-50); Mean Corpuscular HGB Conc 32.3 g/dL (31.8-35.4); Mean Corpuscular Hemoglobin 28.5 pg (27.0-31.2); Mean Corpuscular Volume 88.3 fl (81-99); Mean Platelet Volume 9.5 fl (7.4-10.4); Monocytes # 0.7 K/mm3 (0.1-1.0); Monocytes % 4.6 % (1.7-9.3); Neutrophils # 13.5 K/mm3 (1.8-7.8); Neutrophils % 83.7 % (37.0-80.0); Platelet Count 229 K/mm3 (142-424); Red Cell Distribution Width 14.9 % (11.5-17.5); White Blood Count 16.2 K/mm3 (4.8-10.8)
[2022-07-30 12:37] LABS: MANUAL DIFFERENTIAL MANUAL DIFFERENTIAL (MANUAL DIFF)
[2022-07-30 12:41] LABS: Chloride 109 mmol/L (98-107); Potassium 4.1 mmoL/L (3.5-5.1); Sodium 136 mmol/L (136-145)
[2022-07-30 12:43] LABS: Blood Urea Nitrogen 24 mg/dl (7-17); Creatinine Clearance Estimated 69 mL/min (50-200); Estimated Glomerular Filt Rate 49 ml/min (>60); GFR (African American) 60 ML/MIN (>60)
[2022-07-30 12:44] LABS: Alanine Aminotransferase 48 U/L (12-78); Albumin Level 3.4 g/dl (3.5-5.0); Albumin/Globulin Ratio 1.4 (1.1-1.8); Alkaline Phosphatase 104 U/L (38-126); Anion Gap 11.1 mEq/L (5-15); Aspartate Amino Transferase 41 U/L (14-36); Bilirubin,Total 0.9 mg/dl (0.2-1.3); Calcium 8.7 mg/dl (8.4-10.2); Carbon Dioxide 20 mmol/L (22.0-30.0); Globulin 2.5 g/dL (1.3-3.2); Glucose 212 mg/dl (74-100); Total Protein,Serum 5.9 g/dl (6.3-8.2)
[2022-07-30 12:51] LABS: Acetaminophen < 10 ug/ml (10-30); Salicylate < 1.0 mg/dL (2.0-20.0)
[2022-07-30 12:59] LABS: Lymphocytes % 12 % (10-50); Monocytes % 9 % (2-9); Neutrophils % 79 % (42-76); RBC Morphology Normal; Total Cells Counted 100
[2022-07-30 13:00] LABS: Platelet Estimate Normal
--- NOTE | 2022-07-30 13:15 | HMH.EDGENADL ---
Discharge Plan Disposition Patient Disposition: Home, Self-Care Condition: Good Prescriptions Prescriptions: No Action pantoprazole 40 mg tablet,delayed release (DR/EC) 40 mg PO DAILY Qty: 30 0RF oxycodone-acetaminophen [Percocet] 10-325 mg tablet 1 tab PO QID tizanidine 4 mg tablet 4 mg PO BID PRN (Reason: muscle spasms) Rx Instructions: TAKE ONE TABLET BY MOUTH TWICE DAILY NEEDED FOR MUSCLE SPASMS MAY CAUSE DROWSINESS ropinirole 0.25 mg tablet 0.25 mg PO HS Rx Instructions: TAKE ONE TABLET BY MOUTH EVERY DAY AT BEDTIME FOR restless LEGS Xarelto 20 mg tablet 20 mg PO QPMWITHMEAL Rx Instructions: TAKE ONE TABLET BY MOUTH EVERY DAY with evening meal gabapentin 800 mg tablet 800 mg PO TID montelukast 10 mg tablet 10 mg PO HS Rx Instructions: TAKE ONE TABLET BY MOUTH EVERY DAY AT BEDTIME FOR allergies aspirin 81 mg tablet,delayed release (DR/EC) 81 mg PO DAILY Rx Instructions: TAKE ONE TABLET BY MOUTH DAILY furosemide 40 mg tablet 40 mg PO DAILY Rx Instructions: TAKE ONE TABLET BY MOUTH EVERY DAY atorvastatin 40 mg tablet 40 mg PO HS fluoxetine 20 mg capsule 20 mg PO BID Rx Instructions: TAKE ONE CAPSULE BY MOUTH TWICE DAILY FOR MOOD Trelegy Ellipta 200-62.5-25 mcg blister with device 1 inh INHALATION DAILY diltiazem HCl 240 mg capsule,extended release 24 hr 240 mg PO DAILY bisoprolol fumarate 10 mg tablet 10 mg PO BID metformin 500 mg tablet 500 mg PO BID Rx Instructions: TAKE ONE TABLET BY MOUTH TWICE DAILY albuterol sulfate 90 mcg/actuation HFA aerosol inhaler 1 puff INHALATION Q6HP PRN (Reason: Shortness Of Breath) potassium chloride 20 mEq tablet,ER particles/crystals 20 meq PO DAILY Label Comments: TAKE ONE TABLET BY MOUTH EVERY DAY diazepam 5 mg Tablet 5 mg PO BID Januvia 25 mg tablet 25 mg PO DAILY dexamethasone 6 mg tablet 6 mg PO DAILY 6 Days Qty: 6 0RF levofloxacin 750 mg tablet 750 mg PO DAILY 8 Days Qty: 8 0RF insulin glargine [Lantus Solostar U-100 Insulin] 100 unit/mL (3 mL) Insulin Pen 40 unit SQ HS Qty: 15 0RF glipizide 10 mg tablet 10 mg PO BID Qty: 30 0RF Rx Instructions: Take with 2 largest meals of the day ipratropium-albuterol 0.5 mg-3 mg(2.5 mg base)/3 mL solution for nebulization 3 ml inhalation Q6H PRN (Reason: wheezing) Qty: 180 0RF Referrals Follow up/Referrals: Ilir Jeffers MD [Primary Care Provider] - See instructions Activity Restrictions/Add. Instructions Additional Instructions/Restrictions: apartment assistant manager from [facility] will contact you tomorrow regarding penitentiary placement. Additional instructions for CHEST PAIN: See your physician as soon as possible for further evaluation. Return immediately if worsening chest pain, vomiting, shortness of breath, fever, coughing of blood. Additional instructions for BACK PAIN: See your physician as soon as possible for further evaluation. Return immediately if back pain becomes intolerable, or if fever, numbness or weakness of your legs, loss of control of your bowels or bladder. Additional instructions for VOMITING/DIARRHEA: See your physician as soon as possible for further evaluation. Drink plenty of fluids. Return immediately if severe abdominal pain, uncontrollable vomiting, shortness of breath, fever, bloody diarrhea, vomiting of blood or abdominal distention. Clinical Impressions Clinical Impression: Atypical chest pain, Diarrhea, Low back pain Instructions Patient Instructions: DI for Low Back Pain, DI for Atypical Chest Pain, DI for Diarrhea and Traveler's Diarrhea -- Adult Discharge ED Provider: Missael Ramirez Adult HPI General Chief complaint: Psychiatric Symptoms Stated complaint: SI Time Seen by Provider: 07/30/22 12:58 Mode of Arrival: EMS Source o
--- NOTE | 2022-07-30 13:27 | XR_ITS ---
PROCEDURE INFORMATION: Exam: XR Chest Exam date and time: 07/30/2022 1:55 PM Age: 67 years old Clinical indication: Angina pectoris; Patient HX: Chest pain; Additional info: saul ANGEL TECHNIQUE: Imaging protocol: Radiologic exam of the chest. Views: 1 view. COMPARISON: CR XR CHEST PORTABLE 07/29/2022 1:54 PM FINDINGS: Lungs: Unremarkable. No consolidation. Pleural spaces: Unremarkable. No pleural effusion. No pneumothorax. Heart/Mediastinum: Cardiac silhouette is not enlarged. There is a dual electrode pacemaker unchanged in position with 1 tip projecting within the right atrium while the more distal electrode location cannot be determined with certainty. Bones/joints: Unremarkable for age. IMPRESSION: Stable chest. No active disease.
[2022-07-30 13:45] LABS: Ethyl Alcohol < 10 mg/dl (0-10)
[2022-07-30 13:54] LABS: Troponin I < 0.01 ng/ml (0.00-0.034)
--- NOTE | 2022-07-30 15:35 | PC.NURSE ---
Pt continually walking the the ER room door and back stating she is ready to be DC. Her sister in law is coming to get her, she wants to go to the lobby and wait on her. aware
[2022-07-30 16:02] VITALS: BP 119/60; PULSE 73; RESP 18; TEMP 36.8; O2SAT 97
== END 2022-07-30 16:03 | disposition home or self-care (01) ==
PROVIDERS: Emergency Provider Emergency Medicine; PCP Emergency Medicine
DX: R45.851 Suicidal ideations (principal); R07.89 Other chest pain; R19.7 Diarrhea, unspecified; M54.50 Low back pain, unspecified; Z86.16 Personal history of COVID-19; R06.02 Shortness of breath; F32.A Depression, unspecified; I25.10 Atherosclerotic heart disease of native coronary artery without angina pectoris; Z95.0 Presence of cardiac pacemaker; J44.9 Chronic obstructive pulmonary disease, unspecified; E11.9 Type 2 diabetes mellitus without complications; I10 Essential (primary) hypertension; E78.5 Hyperlipidemia, unspecified; I48.0 Paroxysmal atrial fibrillation; F17.210 Nicotine dependence, cigarettes, uncomplicated
CPT/HCPCS: 71045; 80053; 80329; 84484; 85007; 85025; 93005; 99285

== ENCOUNTER → 2022-10-05 14:45 | Outpatient (CLI) | payer MEDICARE, MEDICAID, SELFPAY ==
[2022-10-05 15:19] LABS: Basophils # 0.2 K/mm3 (0-0.2); Basophils % 1.4 % (0.1-2.0); Eosinophils # 0.5 K/mm3 (0.0-0.4); Eosinophils % 4.2 % (0.1-12.0); Hematocrit 41.5 % (37.0-47.0); Hemoglobin 12.8 g/dL (12.2-16.2); Lymphocytes # 2.8 K/mm3 (0.7-4.5); Lymphocytes % 22.7 % (10-50); Mean Corpuscular HGB Conc 30.9 g/dL (31.8-35.4); Mean Corpuscular Hemoglobin 27.8 pg (27.0-31.2); Mean Corpuscular Volume 90.2 fl (81-99); Mean Platelet Volume 9.2 fl (7.4-10.4); Monocytes # 0.7 K/mm3 (0.1-1.0); Monocytes % 5.5 % (1.7-9.3); Neutrophils # 8.3 K/mm3 (1.8-7.8); Neutrophils % 66.2 % (37.0-80.0); Platelet Count 250 K/mm3 (142-424); Red Cell Distribution Width 15.7 % (11.5-17.5); White Blood Count 12.5 K/mm3 (4.8-10.8)
[2022-10-07 08:40] LABS: Alpha-1-Antitrypsin 104 mg/dL (101-187)
[2022-10-11 05:25] LABS: D001-IgE D pteronyssinus <0.10 kU/L (Class 0); D002-IgE D farinae <0.10 kU/L (Class 0); E001-IgE Cat Dander <0.10 kU/L (Class 0); E005-IgE Dog Dander <0.10 kU/L (Class 0); E072-IgE Mouse Urine <0.10 kU/L (Class 0); G002-IgE Bermuda Grass <0.10 kU/L (Class 0); G006-IgE Timothy Grass <0.10 kU/L (Class 0); I006-IgE Cockroach, German <0.10 kU/L (Class 0); Immunoglobulin E, Total 47 IU/mL (6-495); M001-IgE Penicillium chrysogen <0.10 kU/L (Class 0); M002-IgE Cladosporium herbarum <0.10 kU/L (Class 0); M003-IgE Aspergillus fumigatus <0.10 kU/L (Class 0); M006-IgE Alternaria alternata <0.10 kU/L (Class 0); T001-IgE Maple/Box Elder <0.10 kU/L (Class 0); T003-IgE Common Silver Birch <0.10 kU/L (Class 0); T006-IgE Cedar, Mountain <0.10 kU/L (Class 0); T007-IgE Oak, White <0.10 kU/L (Class 0); T008-IgE Elm, American <0.10 kU/L (Class 0); T010-IgE Walnut <0.10 kU/L (Class 0); T011-IgE Maple Leaf Sycamore <0.10 kU/L (Class 0); T014-IgE Cottonwood <0.10 kU/L (Class 0); T015-IgE Ash, White <0.10 kU/L (Class 0); T022-IgE Pecan, Hickory <0.10 kU/L (Class 0); T070-IgE White Mulberry <0.10 kU/L (Class 0); W001-IgE Ragweed, Short <0.10 kU/L (Class 0); W011-IgE Thistle, Russian <0.10 kU/L (Class 0); W014-IgE Pigweed, Common <0.10 kU/L (Class 0); W018-IgE Sheep Sorrel <0.10 kU/L (Class 0)
== END ==
PROVIDERS: PCP Emergency Medicine; Visit Provider Internal Medicine Pulmonary Disease
DX: J44.9 Chronic obstructive pulmonary disease, unspecified (principal); J30.9 Allergic rhinitis, unspecified
CPT/HCPCS: 36415; 82103; 82785; 85025; 86003

== ENCOUNTER 2022-10-16 19:20 | Inpatient (IN) | payer MEDICAID, MEDICARE, SELFPAY ==
[2022-10-16 19:21] VITALS: BP 161/87; PULSE 80; RESP 17; TEMP 36.6; O2SAT 88; BMI 34.7
--- NOTE | 2022-10-16 19:26 | ECG_ITS ---
APPROVED REPORT Exam: Resting ECG HR:70 bpm ECG Measurements Heart Rate 70 AXES RI 153 P 63 QRSd 82 QRS 49 QT 404 T 76 QTc 425 Conclusion ELECTRONIC ATRIAL PACEMAKER ABNORMAL RHYTHM ECG UNCONFIRMED REPORT Electronically signed by : Cristopher Ryder MD 10/17/2022 17:20:12
[2022-10-16 19:41] VITALS: BMI 34.7
--- NOTE | 2022-10-16 19:48 | XR_ITS ---
PROCEDURE INFORMATION: Exam: XR Chest Exam date and time: 10/16/2022 8:06 PM Age: 67 years old Clinical indication: Shortness of breath and wheezing; Additional info: SOA TECHNIQUE: Imaging protocol: Radiologic exam of the chest. Views: 1 view. COMPARISON: CR XR CHEST PORTABLE 07/30/2022 1:55 PM FINDINGS: Tubes, catheters and devices: Left subclavian transvenous pacemaker leads within the radial appendage and right atrium, near the tricuspid valve. Lungs: Minimal bibasilar ground-glass opacities, likely areas of atelectasis and/or minimal pneumonitis. Pleural spaces: Unremarkable. No pleural effusion. No pneumothorax. Heart/Mediastinum: Normal. Vasculature: Atherosclerotic vascular disease. Bones/joints: No acute abnormality. IMPRESSION: 1. Minimal bibasilar ground-glass opacities, likely areas of atelectasis and/or minimal pneumonitis. 2. Left subclavian transvenous pacemaker leads within the radial appendage and right atrium, near the tricuspid valve.
[2022-10-16 19:58] LABS: ABG Base Excess -4.2 mmol/L (-2.4-2.3); ABG HCO3 20.9 mmhg (22.0-26.0); ABG Oxygen Saturation 97 % (90-100); ABG PCO2 35.6 mmhg (35.0-45.0); ABG PH 7.39 mmol/L (7.35-7.45); ABG PO2 85.2 mmhg (80-100); Allen's Test Acceptable; Source Right Radial
[2022-10-16 20:17] LABS: Coronavirus 19, PCR Not Detected (NotDetected); Influenza A, PCR Not Detected (NotDetected); Influenza B, PCR Not Detected (NotDetected)
[2022-10-16 20:22] LABS: Basophils # 0.1 K/mm3 (0-0.2); Basophils % 1.3 % (0.1-2.0); Eosinophils # 0.3 K/mm3 (0.0-0.4); Eosinophils % 2.5 % (0.1-12.0); Hematocrit 42.5 % (37.0-47.0); Hemoglobin 13.1 g/dL (12.2-16.2); Lymphocytes # 2.3 K/mm3 (0.7-4.5); Lymphocytes % 20.2 % (10-50); Mean Corpuscular HGB Conc 30.9 g/dL (31.8-35.4); Mean Corpuscular Hemoglobin 28.1 pg (27.0-31.2); Mean Platelet Volume 9.4 fl (7.4-10.4); Monocytes # 0.7 K/mm3 (0.1-1.0); Monocytes % 6.7 % (1.7-9.3); Neutrophils # 7.8 K/mm3 (1.8-7.8); Neutrophils % 69.3 % (37.0-80.0); Platelet Count 213 K/mm3 (142-424); Red Blood Count 4.66 M/mm3 (4.20-5.40); Red Cell Distribution Width 15.9 % (11.5-17.5); White Blood Count 11.2 K/mm3 (4.8-10.8)
[2022-10-16 20:31] VITALS: BP 137/62; PULSE 70; RESP 20; O2SAT 92
[2022-10-16 20:34] LABS: Chloride 105 mmol/L (98-107); Potassium 4.1 mmoL/L (3.5-5.1); Sodium 139 mmol/L (136-145)
[2022-10-16 20:37] LABS: Alanine Aminotransferase 27 U/L (12-78); Albumin Level 3.7 g/dl (3.5-5.0); Alkaline Phosphatase 119 U/L (38-126); Anion Gap 10.1 mEq/L (5-15); Aspartate Amino Transferase 25 U/L (14-36); Bilirubin,Direct 0.3 mg/dl (0.0-0.4); Bilirubin,Total 0.3 mg/dl (0.2-1.3); Blood Urea Nitrogen 24 mg/dl (7-17); Calcium 8.7 mg/dl (8.4-10.2); Carbon Dioxide 28 mmol/L (22.0-30.0); Creatinine Clearance Estimated 81 mL/min (50-200); Estimated Glomerular Filt Rate 49 ml/min (>60); GFR (African American) 60 ML/MIN (>60); Glucose 255 mg/dl (74-100); Total Protein,Serum 6.5 g/dl (6.3-8.2)
[2022-10-16 20:39] LABS: Lactic Acid 2.6 mmol/L (0.7-2.1)
[2022-10-16 20:41] LABS: C-Reactive Protein 11.6 mg/L (0-4)
[2022-10-16 20:52] LABS: Troponin I < 0.01 ng/ml (0.00-0.034)
[2022-10-16 21:00] VITALS: BP 147/77; PULSE 70; RESP 26; O2SAT 92
[2022-10-16 21:02] LABS: Erythrocyte Sedimentation Rate 16 mm/hr (0-30)
--- NOTE | 2022-10-16 21:06 | HMH.EDSOB ---
Discharge Plan Disposition Patient Disposition: Admitted As Inpatient Chief Complaint: Shortness of Breath/Dyspnea Prescriptions Prescriptions: No Action diazepam [Valium] 2 mg tablet 2 mg PO BID Qty: 60 1RF oxycodone-acetaminophen [Percocet] 10-325 mg tablet 1 tab PO QID Qty: 120 0RF naproxen 500 mg tablet 500 mg PO BID Qty: 30 0RF fluticasone propionate [Flonase Allergy Relief] 50 mcg/actuation spray,suspension 2 spray intranasal ONCE 90 Days Qty: 16 3RF Rx Instructions: administer into each nostril azithromycin 250 mg tablet See Rx Instructions PO .COMPLEX Qty: 6 0RF Rx Instructions: take 500 mg today (day 1), then 250 mg for 4 days (days 2-5) PO prednisone 20 mg tablet 40 mg PO DAILY 5 Days Qty: 10 0RF Januvia 25 mg tablet See Rx Instructions .ROUTE .COMPLEX Qty: 30 2RF Dose Instruction: TAKE ONE TABLET BY MOUTH EVERY DAY Rx Instructions: TAKE ONE TABLET BY MOUTH EVERY DAY Xarelto 20 mg tablet 20 mg PO QPMWITHMEAL Qty: 90 3RF Rx Instructions: TAKE ONE TABLET BY MOUTH EVERY DAY with evening meal bisoprolol fumarate 10 mg tablet 10 mg PO BID Qty: 60 5RF diltiazem HCl 240 mg capsule,extended release 24 hr 240 mg PO DAILY Qty: 90 3RF insulin glargine [Basaglar KwikPen U-100 Insulin] 100 unit/mL (3 mL) insulin pen 50 unit SQ HS Qty: 15 2RF ondansetron 4 mg tablet,disintegrating 4 mg PO Q8H PRN (Reason: nausea and vomiting) 5 Days Qty: 30 0RF insulin glargine [Basaglar KwikPen U-100 Insulin] 100 unit/mL (3 mL) insulin pen See Rx Instructions .ROUTE .COMPLEX Qty: 30 2RF Dose Instruction: INJECT 40 UNITS SUBCUTANEOUSLY EVERY NIGHT AT BEDTIME Rx Instructions: INJECT 40 UNITS SUBCUTANEOUSLY EVERY NIGHT AT BEDTIME glipizide 10 mg tablet See Rx Instructions .ROUTE .COMPLEX Qty: 60 2RF Dose Instruction: TAKE ONE TABLET BY MOUTH TWICE DAILY (WITH THE 2 LARGEST MEALS OF THE DAY) Rx Instructions: TAKE ONE TABLET BY MOUTH TWICE DAILY (WITH THE 2 LARGEST MEALS OF THE DAY) benzonatate 100 mg capsule See Rx Instructions .ROUTE .COMPLEX Qty: 30 3RF Dose Instruction: TAKE ONE CAPSULE BY MOUTH THREE TIMES DAILY NEEDED FOR cough -SWALLOW WHOLE. DO NOT CRUSH OR CHEW- Rx Instructions: TAKE ONE CAPSULE BY MOUTH THREE TIMES DAILY NEEDED FOR cough -SWALLOW WHOLE. DO NOT CRUSH OR CHEW- tizanidine 4 mg tablet See Rx Instructions .ROUTE .COMPLEX Qty: 60 0RF Dose Instruction: TAKE ONE TABLET BY MOUTH TWICE DAILY NEEDED FOR MUSCLE SPASMS MAY CAUSE DROWSINESS Rx Instructions: TAKE ONE TABLET BY MOUTH TWICE DAILY NEEDED FOR MUSCLE SPASMS MAY CAUSE DROWSINESS pantoprazole 40 mg tablet,delayed release (DR/EC) 40 mg PO DAILY Qty: 90 1RF (DME) Easy Touch Test Strip Strip See Rx Instructions .Route Qty: 100 2RF Rx Instructions: Test sugar 3 times daily or As directed (DME) Easy Touch Test Strip Strip See Rx Instructions .ROUTE .COMPLEX Qty: 100 3RF Dose Instruction: USE TO test blood glucose THREE TIMES DAILY DIRECTED Rx Instructions: USE TO test blood glucose THREE TIMES DAILY DIRECTED ropinirole 0.25 mg tablet 0.25 mg PO HS Rx Instructions: TAKE ONE TABLET BY MOUTH EVERY DAY AT BEDTIME FOR restless LEGS montelukast 10 mg tablet 10 mg PO HS Rx Instructions: TAKE ONE TABLET BY MOUTH EVERY DAY AT BEDTIME FOR allergies aspirin 81 mg tablet,delayed release (DR/EC) 81 mg PO DAILY Rx Instructions: TAKE ONE TABLET BY MOUTH DAILY furosemide 40 mg tablet 40 mg PO DAILY Rx Instructions: TAKE ONE TABLET BY MOUTH EVERY DAY atorvastatin 40 mg tablet 40 mg PO HS fluoxetine 20 mg capsule 20 mg PO BID Rx Instructions: TAKE ONE CAPSULE BY MOUTH TWICE DAILY FOR MOOD Trelegy Ellipta 200-62.5-25 mcg blister with device 1 inh INHALATION DAILY metformin 500
[2022-10-16 21:09] LABS: Acetone, Serum (Rapid) None Detected (None Detect)
[2022-10-16 21:18] LABS: NT Pro Brain Natriuretic Pep. 159 pg/mL (0-125)
[2022-10-16 21:26] LABS: Procalcitonin 0.064 ng/mL (0.0-2.0)
[2022-10-16 21:27] LABS: Microscopic, Urine URINE MICROSCOPIC (MICROSCOPIC)
[2022-10-16 21:35] LABS: Appearance,Urine CLEAR (Clear); Bilirubin,Urine Negative (Negative); Blood, Urine Negative (Negative); Color,Urine ORANGE (Yellow); Glucose,Urine (UA) 2+ (Negative); Ketones,Urine Negative (Negative); Leukocyte Esterase,Urine Negative (Negative); Nitrate,Urine Negative (Negative); Protein,Urine Negative (Negative); Urobilinogen,Urine 0.2 EU/dl (0.2)
--- NOTE | 2022-10-16 21:44 | EXP.HP ---
History of Present Illness *Admission Date: 10/16/22 *Reason for visit:: Cough, wheezing, shortness of air *History of present illness: Ms. Stallings is a 67-year-old female with a past medical history that is positive for COPD, chronic tobacco use, Atrial Fibrillation on chronic anticoagulation, T2DM and CHF. She presents to [facility] through the ER due to a 1-week history of progressively worsening cough, shortness of air and wheezing. She reports that she was seen in the clinic and diagnosed with COPD exacerbation and took Azithromycin, steroid and cough medications with progressive worsening of her symptoms, so she came into the ER for evaluation. In the ER the patient's oxygen was noted to be 88 on room air. She reports that she no longer has home oxygen due to insurance not paying for it. ABG taken on 4L was unremarkable. Cxray showed some mininimal bibasilar ground glass opacities. Covid and Flu testing were negative. BNP was within normal limits at 159. Procalcitonin was normal at 0.064. In the ER the patient received Methylprednisolone 125 mg iv x 1 and Duoneb treatments x 2. The patient will be admitted with initial impression: Acute Exacerbation of COPD. Full Respiratory panel will be ordered, she will be placed on doxycycyline. Sputum obtained, MRSA pcr ordered, urine for strep and legionella ordered. She will be continued on steroids and nebulizers. She was counseled on the need to quit smoking. She reports that she is down to 4 cigarettes daily. She denied the need for NRT. The above plan of care was discussed with the patient in length and detail at bedside in the ER on admission. The patient verbalized understanding and agreement with the plan of care. [facility] Disclaimer: The information contained in this section may have been updated after the patient was seen, as this information can be updated by other users. Medical History Allergic rhinitis Asthma CAD (coronary artery disease) Cardiac pacemaker in situ COPD (chronic obstructive pulmonary disease) COPD exacerbation Diabetes (~06/2020) Encounter for screening for malignant neoplasm of lung in current smoker with 30 pack year history or greater Family history of asthma Fatigue HHD (hypertensive heart disease) History of 2019 novel coronavirus disease (COVID-19) History of asthma Hyperlipemia On statin therapy PAF (paroxysmal atrial fibrillation) Stopped smoking with greater than 30 pack year history Surgical History History of arthroplasty of right knee History of cholecystectomy History of tonsillectomy Hx of cholecystectomy Hx of tonsillectomy Family History Other Cancer Coronary artery disease Diabetes Hyperlipidemia Hypertension Social History Smoking Status: Current every day smoker tobacco type: cigarettes packs per day: 1 smoking status stop date: 09/12/2022 second hand exposure: Yes alcohol intake: never substance use type: denies use current occupational status: retired Travel in the last 8 weeks: None household members: none housing: house marital status: number of children: 0 current occupational exposures/hazards: No caffeine: Yes Review of Systems Review of Systems Review of systems:: pertinent systems reviewed and negative unless documented below Constitutional Constitutional: Reports fatigue Eyes Eyes: Reports system reviewed and no additional complaints, except as documented ENT Ears, Nose, Mouth, and Throat: Reports system reviewed and no additional complaints, except as documented *Cardiovascular Cardiovascular: Reports system reviewed and no additional complaints, except as documented, Reports dyspnea and Reports dyspnea on exertion *Respiratory Respiratory: Reports chest congestion, Reports cough, Rep
[2022-10-16 21:51] LABS: Adenovirus,PCR Not Detected (NotDetected); Bordetella Pertussis Not Detected (NotDetected); Chlamydophila Pneumoniae, PCR Not Detected (NotDetected); Coronavirus 19, PCR Not Detected (NotDetected); Coronavirus 229E Not Detected (NotDetected); Coronavirus NL63 Not Detected (NotDetected); Coronavirus OC43 Not Detected (NotDetected); Coronovirus HKU1,PCR Not Detected (NotDetected); Human Metapneumovirus Not Detected (NotDetected); Influenza A, PCR Not Detected (NotDetected); Influenza AH1, 2009 Not Detected (NotDetected); Influenza AH1, PCR Not Detected (NotDetected); Influenza AH3,PCR Not Detected (NotDetected); Influenza B, PCR Not Detected (NotDetected); Mycoplasma Pneumoniae, PCR Not Detected (NotDetected); Parainfluenza 1, PCR Not Detected (NotDetected); Parainfluenza 2, PCR Not Detected (NotDetected); Parainfluenza 3, PCR Not Detected (NotDetected); Parainfluenza 4, PCR Not Detected (NotDetected); Respiratory Syncytial Virus Not Detected (NotDetected)
[2022-10-16 21:58] LABS: Bacteria,Urine Trace /lpf; WBC,Urine Occasional #/hpf (0-3)
[2022-10-16 22:00] VITALS: BP 124/61; PULSE 70; RESP 20; TEMP 37.2; O2SAT 93; BMI 34.9
--- NOTE | 2022-10-16 22:02 | PC.NURSE ---
Rounded on patient, patient helped with needs voiced at this time.
[2022-10-16 22:16] VITALS: BP 145/75; PULSE 70; RESP 18; TEMP 36.6; O2SAT 99
[2022-10-16 23:29] VITALS: PULSE 70; PULSE 71
[2022-10-17] VITALS (15 sets, daily range): BP systolic 112–130; BP diastolic 48–69; PULSE 70–88; RESP 14–20; TEMP 36.8–37.1; O2SAT 90–99; BMI 34.8; BMI 34.6
[2022-10-17 00:01] LABS: POC Glucose,Bedside 358 (70-110)
[2022-10-17 00:03] LABS: Troponin I < 0.01 ng/ml (0.00-0.034)
[2022-10-17 00:08] LABS: Reflex Lactic Add Lactic Reflex
[2022-10-17 00:35] LABS: Rhinovirus/Enterovirus Detected (NotDetected)
[2022-10-17 00:38] LABS: Lactic Acid Follow Up (RFLX 1) 2.7 mmol/L (0.7-2.1)
[2022-10-17 02:27] LABS: Reflex Lactic (2 hrs) Add Lactic Reflex
[2022-10-17 02:53] LABS: Lactic Acid Follow up (RFLX 2) 2.3 mmol/L (0.7-2.1)
[2022-10-17 03:19] LABS: Troponin I < 0.01 ng/ml (0.00-0.034)
--- NOTE | 2022-10-17 05:07 | PC.NURSE ---
The patient came in last night with shortness of breath, cough and wheezing. She was diagnosed with acute exacerbation of COPD. She has remained on 2L of oxygen via NC throughout the night and has recorded oxygen saturations above 90%. She is getting antibiotics, methyl-Prednisolone and Duoneb breathing treatments to manage her condition. The patient is able to walk to the bathroom with a standby assist.
[2022-10-17 07:24] LABS: POC Glucose,Bedside 323 (70-110)
[2022-10-17 08:00] LABS: Basophils % 0.3 % (0.1-2.0); Eosinophils % 0.2 % (0.1-12.0); Hematocrit 40.3 % (37.0-47.0); Hemoglobin 12.7 g/dL (12.2-16.2); Lymphocytes # 0.6 K/mm3 (0.7-4.5); Lymphocytes % 7.4 % (10-50); Mean Corpuscular HGB Conc 31.5 g/dL (31.8-35.4); Mean Corpuscular Hemoglobin 28.4 pg (27.0-31.2); Mean Corpuscular Volume 90.1 fl (81-99); Mean Platelet Volume 9.2 fl (7.4-10.4); Monocytes # 0.2 K/mm3 (0.1-1.0); Monocytes % 1.9 % (1.7-9.3); Neutrophils # 7.5 K/mm3 (1.8-7.8); Neutrophils % 90.2 % (37.0-80.0); Platelet Count 169 K/mm3 (142-424); Red Blood Count 4.47 M/mm3 (4.20-5.40); Red Cell Distribution Width 15.8 % (11.5-17.5); White Blood Count 8.3 K/mm3 (4.8-10.8)
[2022-10-17 08:08] LABS: MANUAL DIFFERENTIAL MANUAL DIFFERENTIAL (MANUAL DIFF)
[2022-10-17 08:16] LABS: Anion Gap 8.8 mEq/L (5-15); Blood Urea Nitrogen 20 mg/dl (7-17); Calcium 8.4 mg/dl (8.4-10.2); Carbon Dioxide 27 mmol/L (22.0-30.0); Chloride 104 mmol/L (98-107); Creatinine Clearance Estimated 89 mL/min (50-200); Estimated Glomerular Filt Rate 71 ml/min (>60); GFR (African American) 86 ML/MIN (>60); Glucose 331 mg/dl (74-100); Potassium 4.8 mmoL/L (3.5-5.1); Sodium 135 mmol/L (136-145)
[2022-10-17 08:39] LABS: Lymphocytes % 6 % (10-50); Monocytes % 3 % (2-9); Neutrophils % 91 % (42-76); Platelet Estimate Normal; RBC Morphology Normal; Total Cells Counted 100
--- NOTE | 2022-10-17 09:18 | EXP.ACUTE.PN ---
Subjective *Date: 10/17/22 *Time: 09:18 Interval history: Patient still feels short of breath this morning, continuing to require 2 L nasal cannula oxygen, room air saturation this morning 87%. Found to be positive for rhinovirus on comprehensive respiratory panel. Denies nausea, vomiting, chest pain. Still feels short of breath with minimal exertion. Medical Exam Vital signs and Labs for Last 24 Hours: Vital Signs Temp Pulse Pulse Resp BP BP Pulse Ox 10/17/22 08:00 93 L 10/17/22 07:50 98.2 F 71 14 112/48 L 93 L 10/17/22 05:50 70 10/17/22 05:50 74 10/17/22 05:50 96 10/17/22 04:00 98.4 F 70 20 127/67 95 10/17/22 00:00 92 L 10/17/22 00:00 98.8 F 70 20 124/61 93 L 10/16/22 23:29 70 10/16/22 23:29 71 10/16/22 22:00 98.9 F 70 20 124/61 93 L 10/16/22 22:16 98 F 70 18 145/75 H 10/16/22 21:00 70 26 H 147/77 H 92 L 10/16/22 20:31 70 20 137/62 92 L 10/16/22 19:21 97.9 F 80 17 161/87 H 88 L Intake and Output 10/16/22 10/17/22 10/17/22 23:59 07:59 15:59 Output Total 350 / 350 0 / 350 Balance -350 / -350 0 / -350 Output: Output, Urine Amount 350 / 350 0 / 350 Other: Number of Unmeasured Voids 1 1 Weight 107.161 kg 106.736 kg Patient Weight 10/17/22 23:59 Weight 106.736 kg Laboratory Results - last 24 hr 10/16/22 19:33: Troponin I < 0.01, C-Reactive Protein 11.6 H 10/16/22 19:33: WBC 11.2 H, RBC 4.66, Hgb 13.1, Hct 42.5, MCV 91.0, MCH 28.1, MCHC 30.9 L, RDW 15.9, Plt Count 213, MPV 9.4, Neut % (Auto) 69.3, Lymph % (Auto) 20.2, [place] % (Auto) 6.7, Eos % (Auto) 2.5, Baso % (Auto) 1.3, Neut # (Auto) 7.8, Lymph # (Auto) 2.3, [place] # (Auto) 0.7, Eos # (Auto) 0.3, Baso # (Auto) 0.1, ESR 16 10/16/22 19:33: Sodium 139, Potassium 4.1, Chloride 105, Carbon Dioxide 28, Anion Gap 10.1, BUN 24 H, Creatinine 1.10 H, Estimated Creat Clear 81, Estimated GFR 49 L, Est GFR ( Amer) 60, Glucose 255 H, Calcium 8.7, Total Bilirubin 0.3, Direct Bilirubin 0.3, Conjugated Bilirubin 0.0, Indirect Bilirubin 0.0, Unconjugated Bilirubin 0.0, AST 25, ALT 27, Alkaline Phosphatase 119, Total Protein 6.5, Albumin 3.7 10/16/22 19:33: Lactate 2.6 H 10/16/22 19:33: NT-Pro-B Natriuret Pep 159 H, Procalcitonin 0.064 10/16/22 19:34: SARS-CoV-2 (PCR) Not detected, Influenza A Untype (PCR) Not detected, Influenza Type B (PCR) Not detected 10/16/22 19:34: Chlamy pneumoniae PCR Not detected, Adenovirus (PCR) Not detected, B. pertussis DNA (PCR) Not detected, Coronavirus OC43 (PCR) Not detected, Coronavirus HKU1 (PCR) Not detected, Coronavirus 229E (PCR) Not detected, SARS-CoV-2 (PCR) Not detected, Coronavirus NL63 (PCR) Not detected, Human Metapneumovir PCR Not detected, Influenza A (H1) PCR Not detected, Influ A (H1N1/09) PCR Not detected, Influenza A (H3) PCR Not detected, Influenza Type A (PCR) Not detected, Influenza Type B (PCR) Not detected, M. pneumoniae (PCR) Not detected, Parainfluenza 1 (PCR) Not detected, Parainfluenza 2 (PCR) Not detected, Parainfluenza 3 (PCR) Not detected, Parainfluenza 4 (PCR) Not detected, RSV (PCR) Not detected, Entero/Rhino (PCR) Detected A 10/16/22 19:35: Acetone Level None detected 10/16/22 19:48: Specimen Source Right radial, O2 % 4lpm n/c, ABG pH 7.39, ABG pCO2 35.6, ABG pO2 85.2, ABG HCO3 20.9 L, ABG Total CO2 22.0 L, ABG O2 Saturation 97, ABG Base Excess -4.2 L, Roman Test Acceptable 10/16/22 21:22: Urine Color [place], Urine Appearance Clear, Urine pH 6.0, Ur Specific [place] 1.020, Urine Protein Negative, Urine Glucose (UA) 2+, Urine Ketones Negative, Urine Blood Negative, Urine Nitrate Negative, Urine Bilirubin Negative, Urine Urobilinogen 0.2, Ur Leukocyte Esterase Negative, Urine RBC None, Urine WBC Occasional, Ur Squamous Epith Cells 5-10, Urine Bacteria Trace 10/16/22 23:14: POC Glucose 358 H* 10/16/22 23:20: Troponin I < 0.01 10/17/22 00:22: Lactate 2.7 H 10/17/22 02:15: Troponin I < 0.01 10/17/22 02:1
--- NOTE | 2022-10-17 10:12 | HMH.PHAINT1 ---
Pharmacy Intervention Comments: Completed home medication list verification using outpatient pharmacy records and patient interview
[2022-10-17 12:29] LABS: POC Glucose,Bedside 385 (70-110)
--- NOTE | 2022-10-17 12:37 | HMH.OTEV ---
OT Inpatient Evaluation Rehab OT IP Evaluation Start: 10/17/22 10:22 Freq: ONCE Status: Active Protocol: Document 10/17/22 11:17 [email or web address] (Rec: 10/17/22 11:30 ERICKA [id number]) Rehab OT IP Assessment Subjective History Pt was seen resting in bed recieving a breathing treatment upon arrivial. Pt was oriented x4 person, place, , and date. Pt was agreeable to engage in therapy evaluation. Pt was admitted to [facility] on 10/16/22 due to Cough , wheezing, shortness of air. Pt reports that she was independent in all ADLs and IADLs. Pt reports that she lives alone in a one bedroom apartment where there is ~ 3 steps upon entering with a handrail. She reports that her sister in law lives nearby and takes her to the grocery store for grocery shopping. Pt reports that she needs oxygen at home, but insurance hasn't covered it in the past. Pt has a past medical history of the following: Allergic rhinitis Asthma CAD (coronary artery disease) Cardiac pacemaker in situ COPD (chronic obstructive pulmonary disease) COPD exacerbation Diabetes (~06/2020) Encounter for screening for malignant neoplasm of lung in current smoker with 30 pack year history or greater Family history of asthma Fatigue HHD (hypertensive heart disease) History of 2019 novel coronavirus disease (COVID-19) History of asthma Hyperlipemia On statin therapy PAF (paroxysmal atrial fibrillation) Stopped smoking with greater
--- NOTE | 2022-10-17 13:47 | HMH.PTEV ---
Physical Therapy Evaluation Rehab PT IP Evaluation Start: 10/17/22 10:22 Freq: ONCE Status: Active Protocol: Document 10/17/22 13:40 ASHLEE (Rec: 10/17/22 13:47 [email or web address] [id number]) Subjective/History History History 67 yowf adm to [facility] with COPD exac with PMH of CHF, a-fib, and DM-II. She reports she lives alone in an apt, no steps to enter, and she is independent with all mobility without AD. Subjective Subjective She reports her back is hurting currently and she remains somewhat SOA. I just had a coughing fit real bad. Rehab PT IP Eval Objective Appearance Patient Behavior Appropriate Patient Orientation Person,Place,Time Difficulty following instructions none Speech Pattern Clear Ambulation Patient Able to Ambulate Yes Ambulation Observation IP General Gait Pattern Observation No Deviations/Normal Ambulation Distance (feet) 25 Ambulation Assistive Device None Ambulation Ability Independent Balance Ability to Arise Able, uses arms to help Sitting Balance Steady, safe Standing Balance Steady, wide stance Dynamic Sitting Balance Ability Good Dynamic Standing Balance Ability Good Transfers Bed Transfer Ability Independent Chair Transfer Ability Independent Sit to Stand Bed Transfer Ability Independent Sit to Stand Chair Transfer Ability Independent ROM All Extremities PT ROM Status WFL MMT All Extremities PT MMT WFL Rehab PT IP prob,goals,plan Problems Date of Evaluation: 10/17/22 Discharge Plan PT Discharge Plan Pt is currently at baseline for all mobility and is appriopriate to return home once medically stable for d/c. She does remain moderately more SOA than baseline at this time, but ambulation and transfers appear uneffected. G -code Required No Eval Complexity Eval Charge Codes 42374 - Moderate Complexity PHYSICIAN CERTIFICATION: I certify the specified therapy services for Yaritza Stallings are required, authorized, and reviewed every 30 days.
[2022-10-17 16:05] LABS: POC Glucose,Bedside 356 (70-110)
--- NOTE | 2022-10-17 18:02 | PC.NURSE ---
A&OX4. HAS TOLERATED 4LNC ALL DAY, JUST TURNED PT DOWN TO 3LNC. HAS HAD INTERMITTENT DRY AND HACKING COUGH. HAS BEEN UP AMBULATING IN ROOM INDEPENDENTLY, TOLERATING WELL. PT HAS C/O INTERMITTENT BACK PAIN, TX PER SEP. NO OTHER NEEDS OR C/O THIS SHIFT, VSS.
[2022-10-17 20:41] LABS: POC Glucose,Bedside 427 (70-110)
[2022-10-18] VITALS (9 sets, daily range): BP systolic 112–134; BP diastolic 65–76; PULSE 52–87; RESP 21–22; TEMP 36.3–37.1; O2SAT 93–97; BMI 34.4
--- NOTE | 2022-10-18 06:36 | PC.NURSE ---
Pt is currently on 4 L nc, maintaining sat >90%. Pt was able to be weaned to 2 L nc last night and tolerated well but sat drops significantly with any exertion and is very slow to recuperate. Pt has audible wheezing and lungs are diminished t/o. Pt c/o pain in back 1x t/o shift. PRN pain medication administered, pt states favorable results. Call light within reach.
[2022-10-18 06:39] LABS: POC Glucose,Bedside 402 (70-110)
[2022-10-18 06:42] LABS: Basophils % 0.1 % (0.1-2.0); Hematocrit 39.7 % (37.0-47.0); Hemoglobin 12.3 g/dL (12.2-16.2); Lymphocytes # 0.8 K/mm3 (0.7-4.5); Lymphocytes % 4.9 % (10-50); Mean Corpuscular HGB Conc 30.9 g/dL (31.8-35.4); Mean Corpuscular Hemoglobin 27.9 pg (27.0-31.2); Mean Corpuscular Volume 90.2 fl (81-99); Mean Platelet Volume 9.9 fl (7.4-10.4); Monocytes # 0.4 K/mm3 (0.1-1.0); Monocytes % 2.7 % (1.7-9.3); Neutrophils # 14.6 K/mm3 (1.8-7.8); Neutrophils % 92.2 % (37.0-80.0); Platelet Count 209 K/mm3 (142-424); Red Cell Distribution Width 15.6 % (11.5-17.5); White Blood Count 15.8 K/mm3 (4.8-10.8)
[2022-10-18 06:45] LABS: MANUAL DIFFERENTIAL MANUAL DIFFERENTIAL (MANUAL DIFF)
[2022-10-18 06:55] LABS: Alanine Aminotransferase 28 U/L (12-78); Albumin Level 3.7 g/dl (3.5-5.0); Albumin/Globulin Ratio 1.5 (1.1-1.8); Alkaline Phosphatase 92 U/L (38-126); Aspartate Amino Transferase 26 U/L (14-36); Bilirubin,Total 0.4 mg/dl (0.2-1.3); Blood Urea Nitrogen 37 mg/dl (7-17); Calcium 8.5 mg/dl (8.4-10.2); Carbon Dioxide 27 mmol/L (22.0-30.0); Chloride 101 mmol/L (98-107); Creatinine Clearance Estimated 74 mL/min (50-200); Estimated Glomerular Filt Rate 45 ml/min (>60); GFR (African American) 54 ML/MIN (>60); Globulin 2.4 g/dL (1.3-3.2); Glucose 380 mg/dl (74-100); Sodium 134 mmol/L (136-145); Total Protein,Serum 6.1 g/dl (6.3-8.2)
[2022-10-18 07:01] LABS: Lymphocytes % 4 % (10-50); Monocytes % 3 % (2-9); Neutrophils % 93 % (42-76); Platelet Estimate Normal; RBC Morphology Normal; Total Cells Counted 100
[2022-10-18 07:46] LABS: NT Pro Brain Natriuretic Pep. 508 pg/mL (0-125)
--- NOTE | 2022-10-18 07:48 | XR_ITS ---
FINAL REPORT CLINICAL HISTORY: Shortness of breath COMPARISON: 10/16/2022 FINDINGS: Pacemaker is noted. The heart size is at the upper limits of normal for size. The mediastinum is normal. There are chronic changes in the bilateral lungs. The overall appearance is stable. There are no pleural effusions. There is no pneumothorax. There is no osseous abnormality. IMPRESSION: Stable chest exam. Reviewed, Interpreted and Dictated by Williams Travis MD Transcribed by Sydni Cervantes Authenticated and [facility]
--- NOTE | 2022-10-18 12:29 | PC.NURSE ---
Per verbal from Dr. Thompson, administer Humalog 30 units insulin to cover elevated FS glucose reading of 494.
[2022-10-18 12:33] LABS: POC Glucose,Bedside 494 (70-110)
--- NOTE | 2022-10-18 16:01 | EXP.ACUTE.PN ---
Subjective *Date: 10/18/22 *Time: 17:50 Interval history: Patient still very wheezy, has had some improvement however and her oxygenation. Weaned to 2 L oxygen by this afternoon. Initiated on incentive spirometry. States she is feeling somewhat better but very short of breath with exertion such as going to the bathroom. No nausea, vomiting, chest pain, confusion. Medical Exam Vital signs and Labs for Last 24 Hours: Vital Signs Temp Pulse Pulse Resp BP Pulse Ox 10/18/22 11:06 87 10/18/22 11:06 83 10/18/22 08:00 98.1 F 70 22 132/72 96 10/18/22 06:00 70 10/18/22 06:00 76 10/18/22 06:00 97 10/18/22 04:00 98.7 F 70 21 112/65 93 L 10/18/22 00:00 95 10/17/22 23:55 84 10/17/22 23:54 82 10/17/22 20:00 90 L 10/17/22 21:10 88 10/17/22 21:00 88 10/17/22 20:00 98.2 F 71 20 130/69 95 10/17/22 16:54 72 10/17/22 16:54 74 10/17/22 16:54 96 Intake and Output 10/18/22 10/18/22 10/18/22 07:59 15:59 23:59 Intake Total 1080 / 1080 Output Total 0 / 0 0 / 0 Balance 0 / 1080 1080 / 1080 Intake: Intake, Oral Amount 1080 / 1080 Output: Output, Urine Amount 0 / 0 0 / 0 Other: Number of Unmeasured Voids 1 1 Weight 105.46 kg Patient Weight 10/18/22 23:59 Weight 105.46 kg Laboratory Results - last 24 hr 10/17/22 15:53: POC Glucose 356 H* 10/17/22 20:24: POC Glucose 427 H* 10/18/22 06:10: WBC 15.8 H D, RBC 4.40, Hgb 12.3, Hct 39.7, MCV 90.2, MCH 27.9, MCHC 30.9 L, RDW 15.6, Plt Count 209, MPV 9.9, Neut % (Auto) 92.2 H, Lymph % (Auto) 4.9 L, [place] % (Auto) 2.7, Eos % (Auto) 0.0 L, Baso % (Auto) 0.1, Neut # (Auto) 14.6 H, Lymph # (Auto) 0.8, [place] # (Auto) 0.4, Eos # (Auto) 0.0, Baso # (Auto) 0.0, Total Counted 100, Neutrophils % (Manual) 93 H, Lymphocytes % (Manual) 4 L, Monocytes % (Manual) 3, Platelet Estimate Normal, RBC Morphology Normal 10/18/22 06:10: Sodium 134 L, Potassium 5.0, Chloride 101, Carbon Dioxide 27, Anion Gap 11.0, BUN 37 H D, Creatinine 1.20 H D, Estimated Creat Clear 74, Estimated GFR 45 L, Est GFR ( Amer) 54 L D, Glucose 380 H, Calcium 8.5, Magnesium 2.0, Total Bilirubin 0.4, AST 26, ALT 28, Alkaline Phosphatase 92, Total Protein 6.1 L, Albumin 3.7, Globulin 2.4, Albumin/Globulin Ratio 1.5 10/18/22 06:10: NT-Pro-B Natriuret Pep 508 H 10/18/22 06:27: POC Glucose 402 H* 10/18/22 12:25: POC Glucose 494 H* I & O for Labs for Last 24 Hours: Intake & Output 10/15/22 10/16/22 10/17/22 10/18/22 23:59 23:59 23:59 23:59 Intake Total 360 / 360 1080 / 1080 Output Total 350 / 350 0 / 0 Balance 1080 / 1080 Weight 107.161 kg 106 kg 105.46 kg Microbiology Reports for the Last 24 Hours: Microbiology 10/16/22 21:22 Sputum - Expectorated Sputum Gram Stain - Final 10/16/22 21:22 Sputum - Expectorated Sputum Sputum Culture - Preliminary Gram Negative Rods Constitutional: Present mild distress, obese and chronically ill appearing Head: Present atraumatic and normocephalic ENT: Present normal exam Neck: Present normal inspection Respiratory: Present accessory muscle use, prolonged expiratory phase, wheezes and crackles; Absent rhonchi Cardiac: Present Reg Rate and Rhythm GI: Present soft and normal bowel sounds; Absent distention or tenderness Extremities: Present normal inspection and full ROM Skin: Present intact; Absent erythema Neuro: Present Grossly Intact, alert, awake, oriented x 3 and moves all extremities Assessment and Plan *Assessment and plan (1) COPD exacerbation: Status: Acute Category: Medical Code(s): J44.1 - Chronic obstructive pulmonary disease with (acute) exacerbation (2) Atrial fibrillation: Status: Acute Category: Medical Code(s): I48.91 - Unspecified atrial fibrillation (3) Diabetes: Status: Acute Category: Medical Code(s): E11.9 - Type 2
[2022-10-18 17:45] LABS: POC Glucose,Bedside 407 (70-110)
[2022-10-18 17:50] LABS: Chloride 103 mmol/L (98-107)
[2022-10-18 17:51] LABS: Potassium 4.8 mmoL/L (3.5-5.1); Sodium 135 mmol/L (136-145)
[2022-10-18 17:54] LABS: Anion Gap 13.8 mEq/L (5-15); Blood Urea Nitrogen 42 mg/dl (7-17); Calcium 8.5 mg/dl (8.4-10.2); Carbon Dioxide 23 mmol/L (22.0-30.0); Creatinine Clearance Estimated 74 mL/min (50-200); Estimated Glomerular Filt Rate 45 ml/min (>60); GFR (African American) 54 ML/MIN (>60); Glucose 399 mg/dl (74-100)
[2022-10-18 20:58] LABS: POC Glucose,Bedside 316 (70-110)
[2022-10-19] VITALS (8 sets, daily range): BP systolic 128–143; BP diastolic 58–74; PULSE 70–89; RESP 20–26; TEMP 36.3–37; O2SAT 84–96; BMI 34.7
--- NOTE | 2022-10-19 05:29 | PC.NURSE ---
PATIENT HAS COARSE EXP. WHEEZES BILAT ALL LUNG KAMARA. HAS OCCASSIONAL PRODUCTIVE COUGH, SMALL AMTS LIGHT YELLOW, THICK SPUTUM. 02 SATS 90-93 % ON 2LNC. DROPS TO 88-89 WHILE AMBULATING TO BR WITH 02 ON. MEDICATED AT 0006 FOR BACK PAIN 03/08, NO FURTHER COMPLAINTS OF PAIN VOICED. BLOOD SUGARS REMAIN ELEVATED REQUIRING S/S COVERAGE .
[2022-10-19 05:54] LABS: POC Glucose,Bedside 402 (70-110)
[2022-10-19 06:27] LABS: Alanine Aminotransferase 42 U/L (12-78); Albumin Level 3.8 g/dl (3.5-5.0); Albumin/Globulin Ratio 1.6 (1.1-1.8); Alkaline Phosphatase 96 U/L (38-126); Anion Gap 11.1 mEq/L (5-15); Aspartate Amino Transferase 35 U/L (14-36); Bilirubin,Total 0.3 mg/dl (0.2-1.3); Blood Urea Nitrogen 42 mg/dl (7-17); Calcium 8.3 mg/dl (8.4-10.2); Carbon Dioxide 30 mmol/L (22.0-30.0); Chloride 99 mmol/L (98-107); Creatinine Clearance Estimated 69 mL/min (50-200); Estimated Glomerular Filt Rate 41 ml/min (>60); GFR (African American) 49 ML/MIN (>60); Globulin 2.4 g/dL (1.3-3.2); Glucose 370 mg/dl (74-100); Potassium 4.1 mmoL/L (3.5-5.1); Sodium 136 mmol/L (136-145); Total Protein,Serum 6.2 g/dl (6.3-8.2)
[2022-10-19 06:28] LABS: Basophils % 0.2 % (0.1-2.0); Hematocrit 40.8 % (37.0-47.0); Hemoglobin 12.3 g/dL (12.2-16.2); Lymphocytes # 0.9 K/mm3 (0.7-4.5); Lymphocytes % 4.3 % (10-50); Mean Corpuscular HGB Conc 30.1 g/dL (31.8-35.4); Mean Corpuscular Hemoglobin 27.8 pg (27.0-31.2); Mean Corpuscular Volume 92.4 fl (81-99); Mean Platelet Volume 9.6 fl (7.4-10.4); Monocytes # 0.5 K/mm3 (0.1-1.0); Monocytes % 2.5 % (1.7-9.3); Neutrophils # 18.8 K/mm3 (1.8-7.8); Neutrophils % 93.1 % (37.0-80.0); Platelet Count 214 K/mm3 (142-424); Red Blood Count 4.41 M/mm3 (4.20-5.40); Red Cell Distribution Width 15.7 % (11.5-17.5); White Blood Count 20.2 K/mm3 (4.8-10.8)
[2022-10-19 06:29] LABS: MANUAL DIFFERENTIAL MANUAL DIFFERENTIAL (MANUAL DIFF)
[2022-10-19 06:46] LABS: Magnesium 1.9 mg/dl (1.6-2.3)
[2022-10-19 07:03] LABS: Anisocytosis 1+; Hypochromasia 1+; Lymphocytes % 5 % (10-50); Macrocytosis 1+; Neutrophils % 95 % (42-76); Ovalocytes 1+; Platelet Estimate Normal; Total Cells Counted 100
--- NOTE | 2022-10-19 07:33 | EXP.DC.SUM ---
General Admission date:: 10/16/22 Discharge date: 10/19/22 HPI HPI HPI: Ms. Stallings is a 67-year-old female with a past medical history that is positive for COPD, chronic tobacco use, Atrial Fibrillation on chronic anticoagulation, T2DM and CHF. She presents to [facility] through the ER due to a 1-week history of progressively worsening cough, shortness of air and wheezing. She reports that she was seen in the clinic and diagnosed with COPD exacerbation and took Azithromycin, steroid and cough medications with progressive worsening of her symptoms, so she came into the ER for evaluation. In the ER the patient's oxygen was noted to be 88 on room air. She reports that she no longer has home oxygen due to insurance not paying for it. ABG taken on 4L was unremarkable. Cxray showed some mininimal bibasilar ground glass opacities. Covid and Flu testing were negative. BNP was within normal limits at 159. Procalcitonin was normal at 0.064. In the ER the patient received Methylprednisolone 125 mg iv x 1 and Duoneb treatments x 2. The patient will be admitted with initial impression: Acute Exacerbation of COPD. Full Respiratory panel will be ordered, she will be placed on doxycycyline. Sputum obtained, MRSA pcr ordered, urine for strep and legionella ordered. She will be continued on steroids and nebulizers. She was counseled on the need to quit smoking. She reports that she is down to 4 cigarettes daily. She denied the need for NRT. The above plan of care was discussed with the patient in length and detail at bedside in the ER on admission. The patient verbalized understanding and agreement with the plan of care. Exam Data for Last 24 hours Vital signs and Labs for Last 24 Hours: Temp Pulse Resp BP Pulse Ox 97.4 F L 70 26 H 143/66 H 96 10/19/22 04:00 10/19/22 06:21 10/19/22 04:00 10/19/22 04:00 10/19/22 06:21 Laboratory Results - last 24 hr 10/18/22 06:10: NT-Pro-B Natriuret Pep 508 H 10/18/22 12:25: POC Glucose 494 H* 10/18/22 17:18: Sodium 135 L, Potassium 4.8, Chloride 103, Carbon Dioxide 23, Anion Gap 13.8, BUN 42 H, Creatinine 1.20 H, Estimated Creat Clear 74, Estimated GFR 45 L, Est GFR ( Amer) 54 L, Glucose 399 H, Calcium 8.5 10/18/22 17:37: POC Glucose 407 H* 10/18/22 20:49: POC Glucose 316 H* 10/19/22 05:30: Sodium 136, Potassium 4.1, Chloride 99, Carbon Dioxide 30, Anion Gap 11.1, BUN 42 H, Creatinine 1.30 H, Estimated Creat Clear 69, Estimated GFR 41 L, Est GFR ( Amer) 49 L, Glucose 370 H, Calcium 8.3 L, Total Bilirubin 0.3, AST 35 D, ALT 42 D, Alkaline Phosphatase 96, Total Protein 6.2 L, Albumin 3.8, Globulin 2.4, Albumin/Globulin Ratio 1.6 10/19/22 05:30: WBC 20.2 H* D, RBC 4.41, Hgb 12.3, Hct 40.8, MCV 92.4, MCH 27.8, MCHC 30.1 L, RDW 15.7, Plt Count 214, MPV 9.6, Neut % (Auto) 93.1 H, Lymph % (Auto) 4.3 L, [place] % (Auto) 2.5, Eos % (Auto) 0.0 L, Baso % (Auto) 0.2, Neut # (Auto) 18.8 H, Lymph # (Auto) 0.9, [place] # (Auto) 0.5, Eos # (Auto) 0.0, Baso # (Auto) 0.0, Total Counted 100, Neutrophils % (Manual) 95 H, Lymphocytes % (Manual) 5 L, Platelet Estimate Normal, Hypochromasia 1+, Anisocytosis 1+, Macrocytosis 1+, Ovalocytes 1+ 10/19/22 05:30: Magnesium 1.9 10/19/22 05:47: POC Glucose 402 H* I & O for Last 24 hours: Intake & Output 10/16/22 10/17/22 10/18/22 10/19/22 23:59 23:59 23:59 23:59 Intake Total 360 / 360 1560 / 1800 240 / 240 Output Total 350 / 350 0 / 0 1 / 1 Balance 1560 / 1800 239 / 239 Weight 107.161 kg 106 kg 105.46 kg 106.367 kg Microbiology Reports for the Last 24 Hours: Microbiology 10/16/22 21:22 Sputum - Expectorated Sputum Gram Stain - Final 10/16/22 21:22 Sputum - Expectorated Sputum Sputum Culture - Final Stenotrophomonas maltophilia 10/16/22 19:33 Blood Blood Culture - Preliminary NO GROWTH AFTER 48 HOURS 10/16/22 19:33 Blood Blood Culture - Preliminary
[2022-10-19 11:45] LABS: POC Glucose,Bedside 437 (70-110)
--- NOTE | 2022-10-19 14:00 | EXP.ACUTE.PN ---
Subjective *Date: 10/19/22 *Time: 14:00 Interval history: Patient has tolerated gradual wean of oxygen. 2 to 3 L over the past 24 hours. Feeling better but still weak and dyspneic with exertion to bathroom. Sputum culture returned with stenotrophomonas. Denies any nausea, vomiting, chest pain. Tolerating breathing treatments. Afebrile. Hemodynamically stable Medical Exam Vital signs and Labs for Last 24 Hours: Vital Signs Temp Pulse Pulse Resp BP Pulse Ox FiO2 10/19/22 11:10 40 10/19/22 07:59 84 L 10/19/22 07:42 97.7 F 70 20 128/74 94 L 10/19/22 06:21 70 10/19/22 06:21 75 10/19/22 06:21 96 10/19/22 04:00 97.4 F L 70 26 H 143/66 H 91 L 10/18/22 23:58 82 10/18/22 23:58 85 10/18/22 20:00 97.3 F L 52 L 22 134/69 95 10/18/22 20:00 95 10/18/22 17:00 84 10/18/22 17:00 87 10/18/22 17:00 94 L 10/18/22 16:00 94 L 10/18/22 16:00 98.4 F 74 21 133/76 96 Intake and Output 10/18/22 10/19/22 10/19/22 23:59 07:59 15:59 Intake Total 480 / 1800 600 / 960 360 / 960 Output Total 0 / 0 1 / 1 0 / 1 Balance 480 / 1800 599 / 959 360 / 959 Intake: Intake, Oral Amount 480 / 1800 600 / 960 360 / 960 Output: Output, Urine Amount 0 / 0 1 / 1 0 / 1 Other: Number of Unmeasured Voids 1 1 1 Weight 106.367 kg Patient Weight 10/19/22 23:59 Weight 106.367 kg Laboratory Results - last 24 hr 10/18/22 17:18: Sodium 135 L, Potassium 4.8, Chloride 103, Carbon Dioxide 23, Anion Gap 13.8, BUN 42 H, Creatinine 1.20 H, Estimated Creat Clear 74, Estimated GFR 45 L, Est GFR ( Amer) 54 L, Glucose 399 H, Calcium 8.5 10/18/22 17:37: POC Glucose 407 H* 10/18/22 20:49: POC Glucose 316 H* 10/19/22 05:30: Sodium 136, Potassium 4.1, Chloride 99, Carbon Dioxide 30, Anion Gap 11.1, BUN 42 H, Creatinine 1.30 H, Estimated Creat Clear 69, Estimated GFR 41 L, Est GFR ( Amer) 49 L, Glucose 370 H, Calcium 8.3 L, Total Bilirubin 0.3, AST 35 D, ALT 42 D, Alkaline Phosphatase 96, Total Protein 6.2 L, Albumin 3.8, Globulin 2.4, Albumin/Globulin Ratio 1.6 10/19/22 05:30: WBC 20.2 H* D, RBC 4.41, Hgb 12.3, Hct 40.8, MCV 92.4, MCH 27.8, MCHC 30.1 L, RDW 15.7, Plt Count 214, MPV 9.6, Neut % (Auto) 93.1 H, Lymph % (Auto) 4.3 L, [place] % (Auto) 2.5, Eos % (Auto) 0.0 L, Baso % (Auto) 0.2, Neut # (Auto) 18.8 H, Lymph # (Auto) 0.9, [place] # (Auto) 0.5, Eos # (Auto) 0.0, Baso # (Auto) 0.0, Total Counted 100, Neutrophils % (Manual) 95 H, Lymphocytes % (Manual) 5 L, Platelet Estimate Normal, Hypochromasia 1+, Anisocytosis 1+, Macrocytosis 1+, Ovalocytes 1+ 10/19/22 05:30: Magnesium 1.9 10/19/22 05:47: POC Glucose 402 H* 10/19/22 11:25: POC Glucose 437 H* I & O for Labs for Last 24 Hours: Intake & Output 10/16/22 10/17/22 10/18/22 10/19/22 23:59 23:59 23:59 23:59 Intake Total 360 / 360 1560 / 1800 960 / 960 Output Total 350 / 350 0 / 0 Balance 1560 / 1800 959 / 959 Weight 107.161 kg 106 kg 105.46 kg 106.367 kg Microbiology Reports for the Last 24 Hours: Microbiology 10/16/22 21:22 Sputum - Expectorated Sputum Gram Stain - Final 10/16/22 21:22 Sputum - Expectorated Sputum Sputum Culture - Final Stenotrophomonas maltophilia 10/16/22 19:33 Blood Blood Culture - Preliminary NO GROWTH AFTER 48 HOURS 10/16/22 19:33 Blood Blood Culture - Preliminary NO GROWTH AFTER 48 HOURS Constitutional: Present mild distress, obese and chronically ill appearing Head: Present atraumatic and normocephalic ENT: Present normal exam Neck: Present normal inspection Respiratory: Present prolonged expiratory phase, wheezes, crackles and normal respiratory effort; Absent rhonchi Cardiac: Present Reg Rate and Rhythm GI: Present soft and normal bowel sounds; Absent distention or tenderness Extremities: Present normal inspection and full
[2022-10-19 15:24] LABS: Body Fluid Culture, Sterile Not indicated. (.); Legionella pneumophila Urinary Negative (Negative); Organism ID Not indicated. (.); Specimen Source Urine (.); Streptococcus pneumoniae Ag Negative (Negative)
[2022-10-19 17:04] LABS: POC Glucose,Bedside 412 (70-110)
--- NOTE | 2022-10-19 21:00 | PC.NURSE ---
humidification was added to 02 at this time for pt complaints of dry stuffy nose and sore throat.
[2022-10-19 23:53] LABS: MRSA DNA PCR NEGATIVE
[2022-10-19 23:55] LABS: POC Glucose,Bedside 400 (70-110)
[2022-10-19 23:55] LABS: POC Glucose,Bedside 467 (70-110)
[2022-10-20] VITALS (11 sets, daily range): BP systolic 130–153; BP diastolic 50–81; PULSE 70–85; RESP 24–26; TEMP 36.2–36.8; O2SAT 91–96; BMI 34.9
--- NOTE | 2022-10-20 04:10 | PC.NURSE ---
was noted pts o2 sats dropped to 79%, pt was up to bsc and requested a breathing treatment, respiratory noticed that 02 was turned down to 2L and unsure who turned 02 down, pt was increased to 3L after breathing treatment, pt sats were noted to be less than 90% and 02 was increased to 4L at this time. pt with audible wheezes and dry hacking cough.
[2022-10-20 06:22] LABS: POC Glucose,Bedside 332 (70-110)
[2022-10-20 06:44] LABS: Alanine Aminotransferase 34 U/L (12-78); Albumin Level 3.6 g/dl (3.5-5.0); Albumin/Globulin Ratio 1.4 (1.1-1.8); Alkaline Phosphatase 107 U/L (38-126); Anion Gap 8.6 mEq/L (5-15); Aspartate Amino Transferase 27 U/L (14-36); Bilirubin,Total 0.2 mg/dl (0.2-1.3); Blood Urea Nitrogen 42 mg/dl (7-17); Calcium 8.6 mg/dl (8.4-10.2); Carbon Dioxide 32 mmol/L (22.0-30.0); Chloride 102 mmol/L (98-107); Creatinine Clearance Estimated 82 mL/min (50-200); Estimated Glomerular Filt Rate 49 ml/min (>60); GFR (African American) 60 ML/MIN (>60); Globulin 2.5 g/dL (1.3-3.2); Glucose 318 mg/dl (74-100); Potassium 4.6 mmoL/L (3.5-5.1); Sodium 138 mmol/L (136-145); Total Protein,Serum 6.1 g/dl (6.3-8.2)
--- NOTE | 2022-10-20 09:25 | EXP.PHA.PN ---
Subjective *Date: 10/20/22 *Time: 09:25 Medical Exam Vital signs and Labs for Last 24 Hours: Vital Signs Temp Pulse Pulse Resp BP Pulse Ox FiO2 10/20/22 08:00 97.6 F 71 24 142/81 H 96 10/20/22 06:17 70 10/20/22 06:17 70 10/20/22 06:17 94 L 10/20/22 04:00 97.2 F L 70 26 H 137/54 L 91 L 10/20/22 03:49 71 10/20/22 03:49 71 10/20/22 00:00 93 L 10/19/22 20:00 96 10/19/22 23:59 97.8 F 70 24 132/62 93 L 10/19/22 20:00 98.1 F 70 24 142/58 H 96 10/19/22 19:00 85 10/19/22 19:00 89 10/19/22 19:00 95 10/19/22 15:21 98.6 F 71 22 136/60 93 L 10/19/22 11:10 40 Intake and Output 10/19/22 10/20/22 10/20/22 23:59 07:59 15:59 Intake Total 360 / 1320 360 / 360 Output Total 0 / 1 650 / 850 200 / 850 Balance 360 / 1319 -650 / -490 160 / -490 Intake: Intake, Oral Amount 360 / 1320 360 / 360 Output: Output, Urine Amount 0 / 1 650 / 850 200 / 850 Other: Number of Unmeasured Voids 1 Weight 107.229 kg Patient Weight 10/20/22 23:59 Weight 107.229 kg Laboratory Results - last 24 hr 10/16/22 21:22: Fluid Culture Not indicated., S. pneumoniae Antigen Negative, S. pneumoniae Ag Source Urine, Organism ID Not indicated. 10/16/22 21:22: Ur L.pneumophila Ag Negative 10/17/22 09:45: MRSA (PCR) Negative 10/19/22 11:25: POC Glucose 437 H* 10/19/22 16:57: POC Glucose 412 H* 10/19/22 20:45: POC Glucose 467 H* 10/19/22 23:48: POC Glucose 400 H* 10/20/22 06:03: POC Glucose 332 H* 10/20/22 06:05: Sodium 138, Potassium 4.6, Chloride 102, Carbon Dioxide 32 H, Anion Gap 8.6, BUN 42 H, Creatinine 1.10 H, Estimated Creat Clear 82, Estimated GFR 49 L, Est GFR ( Amer) 60 D, Glucose 318 H, Calcium 8.6, Total Bilirubin 0.2, AST 27, ALT 34, Alkaline Phosphatase 107, Total Protein 6.1 L, Albumin 3.6, Globulin 2.5, Albumin/Globulin Ratio 1.4 I & O for Labs for Last 24 Hours: Intake & Output 10/17/22 10/18/22 10/19/22 10/20/22 23:59 23:59 23:59 23:59 Intake Total 360 / 360 1560 / 1800 1320 / 1320 360 / 360 Output Total 350 / 350 0 / 0 850 / 850 Balance 1560 / 1800 1319 / 1319 -490 / -490 Weight 106 kg 105.46 kg 106.367 kg 107.229 kg Microbiology Reports for the Last 24 Hours: Microbiology 10/16/22 21:22 Sputum - Expectorated Sputum Gram Stain - Final 10/16/22 21:22 Sputum - Expectorated Sputum Sputum Culture - Final Stenotrophomonas maltophilia The patient's infection will respond to the chosen ABx?: Yes Is the patient receiving the right drug, dose, and route?: Yes Could a more targeted ABx be ordered?: No (PATIENT CURRENTLY TAKING BACTRIM AND DOXY; SPUTUM + FOR S. MALTOPHILIA. )
--- NOTE | 2022-10-20 09:40 | EXP.PULM.CON ---
History of Present Illness History of present illness: Ms. Stallings 67-year-old female history of COPD prior history of COVID-19 pneumonia treated with remdesivir following in pulmonary clinic for COPD recently seen earlier this month treated with COPD exacerbation with prednisone and Z-Ambrose admitted to the hospital again with worsening respiratory distress admitted on 10/16/2020 pulmonary was consulted for further evaluation. [facility] Disclaimer: The information contained in this section may have been updated after the patient was seen, as this information can be updated by other users. Medical History Acute respiratory failure with hypoxia Allergic rhinitis Asthma CAD (coronary artery disease) Cardiac pacemaker in situ COPD (chronic obstructive pulmonary disease) COPD exacerbation Diabetes (~06/2020) Encounter for screening for malignant neoplasm of lung in current smoker with 30 pack year history or greater Family history of asthma Fatigue HHD (hypertensive heart disease) History of 2019 novel coronavirus disease (COVID-19) History of asthma Hyperlipemia On statin therapy PAF (paroxysmal atrial fibrillation) Pneumonia Stopped smoking with greater than 30 pack year history Surgical History History of arthroplasty of right knee History of cholecystectomy History of tonsillectomy Hx of cholecystectomy Hx of tonsillectomy Family History Other Cancer Coronary artery disease Diabetes Hyperlipidemia Hypertension Social History Smoking Status: Current every day smoker tobacco type: cigarettes packs per day: 1 smoking status stop date: 09/12/2022 second hand exposure: Yes alcohol intake: never substance use type: denies use current occupational status: retired Travel in the last 8 weeks: None household members: none housing: house marital status: number of children: 0 current occupational exposures/hazards: No caffeine: Yes Review of Systems Constitutional Constitutional: Reports anorexia, Reports body ache(s) and Reports fatigue Eyes Eyes: Denies eye discharge, Denies dry eyes, Denies irritation and Denies itchy eyes ENT Ears, Nose, Mouth, and Throat: Denies epistaxis, Denies facial pain, Denies lip swelling and Denies throat swelling *Cardiovascular Cardiovascular: Reports dyspnea, Reports dyspnea on exertion and Reports orthopnea *Respiratory Respiratory: Reports chest congestion, Reports cough, Reports dyspnea, Reports dyspnea on exertion, Reports excessive phlegm production and Reports wheezing *Gastrointestinal Gastrointestinal: Denies abdominal pain, Denies belching and Denies cramping *Musculoskeletal Musculoskeletal: Reports back pain, Reports myalgias and Reports other (No small joint swelling or Pain) *Neurologic Neurologic: Reports system reviewed and no additional complaints, except as documented Psychiatric Psychiatric: Denies homicidal ideation and Denies suicidal ideation Endocrine Endocrine: Reports fatigue and Denies heat intolerance Hematologic/Lymphatic Hematologic/Lymphatic: Denies easy bleeding and Denies lymphadenopathy Allergic/Immunologic Allergic/Immunologic: Denies itchy eyes, Denies lip swelling, Denies throat swelling and Reports wheezing Pulmonology Exam Inpatient Vital signs and Labs for Last 24 Hours: Temp Pulse Resp BP Pulse Ox FiO2 97.6 F 71 24 142/81 H 96 40 10/20/22 08:00 10/20/22 08:00 10/20/22 08:00 10/20/22 08:00 10/20/22 08:00 10/19/22 11:10 Laboratory Results - last 24 hr 10/16/22 21:22: Fluid Culture Not indicated., S. pneumoniae Antigen Negative, S. pneumoniae Ag Source Urine, Organism ID Not indicated. 10/16/22 21:22: Ur L.pneumophila Ag Negative 10/17/22 09:45: MRSA (PCR) Negative 10/19/22 11:25: POC Glucose 437 H* 10/19/22 16:57: POC Glucose 412 H*
--- NOTE | 2022-10-20 09:54 | SW/DCPLANNER ---
Addendum entered by Mirna Ledesma 10/23/22 12:24: I have updated Fe aparicio/ Porfirio Cabello that the plan for this patient is to discharge tomorrow. Addendum entered by Mirna Ledesma 10/20/22 11:19: Ynes aparicio/ Porfirio Cabello stated that services will start Sunday if patient d/c over the weekend. Original Note: Patient has used [facility] in the past and prefers to use this agency again at discharge. Patient information/order will be faxed to [facility] today with expected discharge home over the weekend.
[2022-10-20 11:01] LABS: POC Glucose,Bedside 433 (70-110)
--- NOTE | 2022-10-20 11:29 | PC.NURSE ---
Pt states she had a BM this AM.
--- NOTE | 2022-10-20 11:40 | PC.NURSE ---
Agnieszka Cazares student nurse will be providing care and charting on pt under my supervision.
[2022-10-20 13:28] LABS: POC Glucose,Bedside 395 (70-110)
--- NOTE | 2022-10-20 14:06 | XR_ITS ---
PROCEDURE INFORMATION: Exam: XR Chest Exam date and time: 10/20/2022 4:13 PM Age: 67 years old Clinical indication: Shortness of breath; Additional info: Pnm TECHNIQUE: Imaging protocol: Radiologic exam of the chest. Views: 1 view. COMPARISON: CR XR CHEST PORTABLE 10/18/2022 9:46 AM FINDINGS: Limitations: Evaluation is limited due to patient rotation. Lungs: Unremarkable. No consolidation. Pleural spaces: Unremarkable. No pleural effusion. No pneumothorax. Heart/Mediastinum: Heart size is stable. There are pacemaker wires extending into the right atrium unchanged. Bones/joints: Unremarkable for age. IMPRESSION: Stable chest. No active disease.
--- NOTE | 2022-10-20 15:42 | DIET.NUTRFU ---
RD/pharmacy reviewed elevated BS with provider during rounds today. Her BS have been >400 at times. He is receiving steroid tx for her respiratory problems which is causing increase in BS. Provider adjusted insulin to provide better coverage. She is tolerating her 2000kcal ADA diet with good meal intake.
--- NOTE | 2022-10-20 16:01 | EXP.ACUTE.PN ---
Subjective *Date: 10/20/22 *Time: 16:01 Interval history: No issues, still having significant SOB Medical Exam Vital signs and Labs for Last 24 Hours: Vital Signs Temp Pulse Pulse Resp BP Pulse Ox 10/20/22 13:47 83 10/20/22 13:47 82 10/20/22 11:12 82 10/20/22 11:12 80 10/20/22 08:00 97.6 F 71 24 142/81 H 96 10/20/22 06:17 70 10/20/22 06:17 70 10/20/22 06:17 94 L 10/20/22 04:00 97.2 F L 70 26 H 137/54 L 91 L 10/20/22 03:49 71 10/20/22 03:49 71 10/20/22 00:00 93 L 10/19/22 20:00 96 10/19/22 23:59 97.8 F 70 24 132/62 93 L 10/19/22 20:00 98.1 F 70 24 142/58 H 96 10/19/22 19:00 85 10/19/22 19:00 89 10/19/22 19:00 95 Intake and Output 10/20/22 10/20/22 10/20/22 07:59 15:59 23:59 Intake Total 480 / 480 Output Total 650 / 1100 450 / 1100 Balance -650 / -620 30 / -620 Intake: Intake, Oral Amount 480 / 480 Output: Output, Urine Amount 650 / 1100 450 / 1100 Other: Number of Unmeasured Voids 1 Weight 107.229 kg Patient Weight 10/20/22 23:59 Weight 107.229 kg Laboratory Results - last 24 hr 10/17/22 09:45: MRSA (PCR) Negative 10/19/22 16:57: POC Glucose 412 H* 10/19/22 20:45: POC Glucose 467 H* 10/19/22 23:48: POC Glucose 400 H* 10/20/22 06:03: POC Glucose 332 H* 10/20/22 06:05: Sodium 138, Potassium 4.6, Chloride 102, Carbon Dioxide 32 H, Anion Gap 8.6, BUN 42 H, Creatinine 1.10 H, Estimated Creat Clear 82, Estimated GFR 49 L, Est GFR ( Amer) 60 D, Glucose 318 H, Calcium 8.6, Total Bilirubin 0.2, AST 27, ALT 34, Alkaline Phosphatase 107, Total Protein 6.1 L, Albumin 3.6, Globulin 2.5, Albumin/Globulin Ratio 1.4 10/20/22 10:46: POC Glucose 433 H* 10/20/22 13:11: POC Glucose 395 H* I & O for Labs for Last 24 Hours: Intake & Output 10/17/22 10/18/22 10/19/22 10/20/22 23:59 23:59 23:59 23:59 Intake Total 360 / 360 1560 / 1800 1320 / 1320 480 / 480 Output Total 350 / 350 0 / 0 1100 / 1100 Balance 1560 / 1800 1319 / 1319 -620 / -620 Weight 106 kg 105.46 kg 106.367 kg 107.229 kg Constitutional: Present no acute distress Respiratory: Present accessory muscle use, decreased breath sounds, respiratory distress, wheezes and diminished air movement; Absent able to speak in complete sentences Cardiac: Present Reg Rate and Rhythm GI: Present normal bowel sounds; Absent tenderness Extremities: Present normal inspection and full ROM Skin: Present intact; Absent erythema Neuro: Present Grossly Intact and moves all extremities Assessment and Plan *Assessment and plan (1) Acute respiratory failure with hypoxia: Status: Acute Category: Medical Code(s): J96.01 - Acute respiratory failure with hypoxia (2) Pneumonia: Status: Acute Category: Medical Code(s): J18.9 - Pneumonia, unspecified organism (3) Tobacco abuse: Status: Acute Category: Medical Code(s): Z72.0 - Tobacco use (4) Anxiety disorder: Status: Acute Category: Medical Code(s): F41.9 - Anxiety disorder, unspecified (5) Diabetes: Status: Acute Category: Medical Code(s): E11.9 - Type 2 diabetes mellitus without complications (6) Atrial fibrillation: Status: Acute Category: Medical Code(s): I48.91 - Unspecified atrial fibrillation (7) COPD exacerbation: Status: Acute Category: Medical Code(s): J44.1 - Chronic obstructive pulmonary disease with (acute) exacerbation Plan 67-year-old female with past medical history of COPD, chronic tobacco abuse, CHF, DM presents with a 1-week history of progressive worsening cough, shortness of air and wheezing after being diagnosed with COPD exacerbation - Acute Exacerbation of COPD - Hypoxia Continue supplemental oxygen, goal saturation greater 90%, requiring 2 L currently Comprehensive respiratory panel positive
[2022-10-20 16:56] LABS: POC Glucose,Bedside 386 (70-110)
--- NOTE | 2022-10-20 18:04 | PC.NURSE ---
Pt is currently resting in bed. Has been up to chair x1 this shift. FSBS have been elevated. Pt has c/o soa at times and sore throat. Remains on 4L O2 NC. Wheezing and rhonchi noted t/o lung powers. Pt has nonproductive cough. Medication administered per sep. Call light within reach.
[2022-10-20 20:18] LABS: POC Glucose,Bedside 325 (70-110)
[2022-10-21] VITALS (14 sets, daily range): BP systolic 114–148; BP diastolic 53–77; PULSE 63–79; RESP 15–24; TEMP 36.6–36.8; O2SAT 91–96; BMI 35.1
--- NOTE | 2022-10-21 03:52 | PC.NURSE ---
The patient remained on 4L oxygen via naso cannulae throughout the night and mainted oxygen saturations at 94%. Her blood glucose remains in the 300's but she is still receiving Lantus and Humalog isulin shots. She did not not report any issues over night and the plan is to continue weaning down her oxygen and continuing her antibiotic therapy.
[2022-10-21 06:51] LABS: POC Glucose,Bedside 333 (70-110)
[2022-10-21 07:53] LABS: Alanine Aminotransferase 48 U/L (12-78); Albumin Level 3.7 g/dl (3.5-5.0); Albumin/Globulin Ratio 1.5 (1.1-1.8); Alkaline Phosphatase 110 U/L (38-126); Anion Gap 7.3 mEq/L (5-15); Aspartate Amino Transferase 36 U/L (14-36); Bilirubin,Total 0.5 mg/dl (0.2-1.3); Blood Urea Nitrogen 34 mg/dl (7-17); Calcium 8.8 mg/dl (8.4-10.2); Carbon Dioxide 32 mmol/L (22.0-30.0); Chloride 101 mmol/L (98-107); Creatinine Clearance Estimated 82 mL/min (50-200); Estimated Glomerular Filt Rate 49 ml/min (>60); GFR (African American) 60 ML/MIN (>60); Globulin 2.4 g/dL (1.3-3.2); Glucose 338 mg/dl (74-100); Potassium 4.3 mmoL/L (3.5-5.1); Sodium 136 mmol/L (136-145); Total Protein,Serum 6.1 g/dl (6.3-8.2)
[2022-10-21 10:06] LABS: POC Glucose,Bedside 404 (70-110)
--- NOTE | 2022-10-21 11:07 | EXP.ACUTE.PN ---
Subjective *Date: 10/21/22 *Time: 11:07 Interval history: Feels bad, still having shortness of breath. Wheezing and sore throat. Although feels better from admission Medical Exam Vital signs and Labs for Last 24 Hours: Vital Signs Temp Pulse Pulse Resp BP Pulse Ox 10/21/22 09:47 71 10/21/22 09:47 70 10/21/22 09:47 91 L 10/21/22 08:00 97.9 F 73 18 138/62 93 L 10/21/22 06:25 70 10/21/22 06:25 70 10/21/22 06:25 96 10/21/22 04:00 98.3 F 79 24 135/71 95 10/21/22 01:58 71 10/21/22 01:58 75 10/21/22 00:00 98.2 F 70 24 114/53 L 94 L 10/20/22 22:15 85 10/20/22 22:15 85 10/20/22 19:48 98.2 F 73 24 153/72 H 92 L 10/20/22 18:55 84 10/20/22 18:55 85 10/20/22 18:55 95 10/20/22 16:00 98.0 F 72 26 H 130/50 L 93 L 10/20/22 13:47 83 10/20/22 13:47 82 10/20/22 11:12 82 10/20/22 11:12 80 Intake and Output 10/20/22 10/21/22 10/21/22 23:59 07:59 15:59 Intake Total 240 / 720 480 / 480 Output Total 100 / 1200 150 / 150 Balance 140 / -480 330 / 330 Intake: Intake, Oral Amount 240 / 720 480 / 480 Output: Output, Urine Amount 100 / 1200 150 / 150 Other: Number of Unmeasured Voids 1 1 0 Weight 107.53 kg Patient Weight 10/21/22 23:59 Weight 107.53 kg Laboratory Results - last 24 hr 10/20/22 13:11: POC Glucose 395 H* 10/20/22 16:42: POC Glucose 386 H* 10/20/22 20:05: POC Glucose 325 H* 10/21/22 06:39: POC Glucose 333 H* 10/21/22 07:25: Sodium 136, Potassium 4.3, Chloride 101, Carbon Dioxide 32 H, Anion Gap 7.3, BUN 34 H, Creatinine 1.10 H, Estimated Creat Clear 82, Estimated GFR 49 L, Est GFR ( Amer) 60, Glucose 338 H, Calcium 8.8, Total Bilirubin 0.5, AST 36 D, ALT 48 D, Alkaline Phosphatase 110, Total Protein 6.1 L, Albumin 3.7, Globulin 2.4, Albumin/Globulin Ratio 1.5 10/21/22 09:42: POC Glucose 404 H* I & O for Labs for Last 24 Hours: Intake & Output 10/18/22 10/19/22 10/20/22 10/21/22 23:59 23:59 23:59 23:59 Intake Total 1560 / 1800 1320 / 1320 720 / 720 480 / 480 Output Total 0 / 0 1200 / 1200 150 / 150 Balance 1560 / 1800 1319 / 1319 -480 / -480 330 / 330 Weight 105.46 kg 106.367 kg 107.229 kg 107.53 kg Constitutional: Present no acute distress Respiratory: Present accessory muscle use, decreased breath sounds, respiratory distress, wheezes and diminished air movement; Absent able to speak in complete sentences Cardiac: Present Reg Rate and Rhythm GI: Present normal bowel sounds; Absent tenderness Extremities: Present normal inspection and full ROM Skin: Present intact; Absent erythema Neuro: Present Grossly Intact and moves all extremities Assessment and Plan *Assessment and plan (1) Acute respiratory failure with hypoxia: Status: Acute Category: Medical Code(s): J96.01 - Acute respiratory failure with hypoxia (2) Pneumonia: Status: Acute Category: Medical Code(s): J18.9 - Pneumonia, unspecified organism (3) Tobacco abuse: Status: Acute Category: Medical Code(s): Z72.0 - Tobacco use (4) Anxiety disorder: Status: Acute Category: Medical Code(s): F41.9 - Anxiety disorder, unspecified (5) Diabetes: Status: Acute Category: Medical Code(s): E11.9 - Type 2 diabetes mellitus without complications (6) Atrial fibrillation: Status: Acute Category: Medical Code(s): I48.91 - Unspecified atrial fibrillation (7) COPD exacerbation: Status: Acute Category: Medical Code(s): J44.1 - Chronic obstructive pulmonary disease with (acute) exacerbation Plan 67-year-old female with past medical history of COPD, chronic tobacco abuse, CHF, DM presents with a 1-week history of progressive worsening cough, shortness of air and wheezing after being diagnosed with COPD exacerbation . Slowly improving. - A
--- NOTE | 2022-10-21 11:15 | XR_ITS ---
PROCEDURE INFORMATION: Exam: XR Chest Exam date and time: 10/21/2022 11:54 AM Age: 67 years old Clinical indication: Shortness of breath; Additional info: SOA TECHNIQUE: Imaging protocol: Radiologic exam of the chest. Views: 1 view. COMPARISON: CR XR CHEST PORTABLE 10/20/2022 4:13 PM FINDINGS: Lungs: Unremarkable. No consolidation. Pleural spaces: Unremarkable. No pleural effusion. No pneumothorax. Heart/Mediastinum: Pacer wires.. No cardiomegaly. Bones/joints: Unremarkable. IMPRESSION: No acute findings.
[2022-10-21 11:42] LABS: POC Glucose,Bedside 391 (70-110)
[2022-10-21 13:53] LABS: POC Glucose,Bedside 320 (70-110)
--- NOTE | 2022-10-21 15:46 | PC.NURSE ---
Pt has c/o soa at times this shift. Breathing Tx and chest percussions per RT. O2 titrated from 3L back to 4L NC today. Pt continues to have rhonchi and wheezing t/o lung powers. Has ambulated to [facility] but becomes soa with exertion. FSBS remain elevated. Medicated per sep. Call light within reach.
[2022-10-21 17:09] LABS: POC Glucose,Bedside 246 (70-110)
[2022-10-21 20:30] LABS: POC Glucose,Bedside 368 (70-110)
[2022-10-22] VITALS (11 sets, daily range): BP systolic 125–152; BP diastolic 56–78; PULSE 70–78; RESP 14–24; TEMP 36.6–36.8; O2SAT 92–98; BMI 34.9
[2022-10-22 07:36] LABS: POC Glucose,Bedside 317 (70-110)
[2022-10-22 11:11] LABS: POC Glucose,Bedside 393 (70-110)
[2022-10-22 12:15] LABS: Basophils % 0.2 % (0.1-2.0); Eosinophils # 0.1 K/mm3 (0.0-0.4); Eosinophils % 0.4 % (0.1-12.0); Hematocrit 43.5 % (37.0-47.0); Hemoglobin 13.6 g/dL (12.2-16.2); Lymphocytes # 0.7 K/mm3 (0.7-4.5); Lymphocytes % 3.8 % (10-50); Mean Corpuscular HGB Conc 31.2 g/dL (31.8-35.4); Mean Corpuscular Hemoglobin 27.7 pg (27.0-31.2); Mean Corpuscular Volume 88.8 fl (81-99); Mean Platelet Volume 9.4 fl (7.4-10.4); Monocytes # 0.5 K/mm3 (0.1-1.0); Neutrophils # 16.5 K/mm3 (1.8-7.8); Neutrophils % 92.6 % (37.0-80.0); Platelet Count 257 K/mm3 (142-424); Red Blood Count 4.89 M/mm3 (4.20-5.40); Red Cell Distribution Width 15.5 % (11.5-17.5); White Blood Count 17.8 K/mm3 (4.8-10.8)
[2022-10-22 12:16] LABS: MANUAL DIFFERENTIAL MANUAL DIFFERENTIAL (MANUAL DIFF)
[2022-10-22 12:20] LABS: Chloride 98 mmol/L (98-107); Potassium 4.8 mmoL/L (3.5-5.1); Sodium 134 mmol/L (136-145)
[2022-10-22 12:23] LABS: Alanine Aminotransferase 65 U/L (12-78); Albumin Level 3.7 g/dl (3.5-5.0); Albumin/Globulin Ratio 1.5 (1.1-1.8); Alkaline Phosphatase 83 U/L (38-126); Anion Gap 10.8 mEq/L (5-15); Aspartate Amino Transferase 44 U/L (14-36); Bilirubin,Total 0.6 mg/dl (0.2-1.3); Blood Urea Nitrogen 37 mg/dl (7-17); Calcium 8.8 mg/dl (8.4-10.2); Carbon Dioxide 30 mmol/L (22.0-30.0); Creatinine Clearance Estimated 82 mL/min (50-200); Estimated Glomerular Filt Rate 49 ml/min (>60); GFR (African American) 60 ML/MIN (>60); Globulin 2.5 g/dL (1.3-3.2); Glucose 378 mg/dl (74-100); Total Protein,Serum 6.2 g/dl (6.3-8.2)
[2022-10-22 12:25] LABS: Lymphocytes % 7 % (10-50); Monocytes % 4 % (2-9); Neutrophils % 89 % (42-76); Total Cells Counted 100
[2022-10-22 12:26] LABS: Platelet Estimate Normal; RBC Morphology Normal
--- NOTE | 2022-10-22 16:38 | EXP.ACUTE.PN ---
Subjective *Date: 10/22/22 *Time: 16:38 Interval history: Significantly improved today. Wheezing is improved. Shortness of breath is improved. She is able to ambulate Medical Exam Vital signs and Labs for Last 24 Hours: Vital Signs Temp Pulse Pulse Resp BP Pulse Ox 10/22/22 16:00 98.2 F 72 16 131/62 93 L 10/22/22 14:56 75 10/22/22 14:56 75 10/22/22 10:13 73 10/22/22 10:13 73 14 10/22/22 10:13 73 10/22/22 10:13 95 10/22/22 07:46 98.3 F 74 16 140/78 95 10/22/22 06:33 71 10/22/22 06:33 74 10/22/22 06:33 92 L 10/22/22 04:00 98.0 F 70 18 149/75 H 97 10/22/22 00:00 98.1 F 70 21 125/56 L 98 10/21/22 22:22 72 10/21/22 22:22 77 15 10/21/22 22:21 73 10/21/22 19:40 97.9 F 72 20 136/77 92 L 10/21/22 19:06 77 10/21/22 19:05 71 Intake and Output 10/22/22 10/22/22 10/22/22 07:59 15:59 23:59 Intake Total 360 / 720 360 / 720 Output Total 300 / 300 0 / 300 0 / 300 Balance 60 / 420 360 / 420 0 / 420 Intake: Intake, Oral Amount 360 / 720 360 / 720 Output: Output, Urine Amount 300 / 300 0 / 300 0 / 300 Other: Number of Unmeasured Voids 1 1 1 Weight 107.19 kg Patient Weight 10/22/22 23:59 Weight 107.19 kg Laboratory Results - last 24 hr 10/21/22 16:51: POC Glucose 246 H 10/21/22 20:22: POC Glucose 368 H* 10/22/22 05:53: POC Glucose 317 H* 10/22/22 10:56: POC Glucose 393 H* 10/22/22 12:10: WBC 17.8 H, RBC 4.89, Hgb 13.6, Hct 43.5, MCV 88.8, MCH 27.7, MCHC 31.2 L, RDW 15.5, Plt Count 257, MPV 9.4, Neut % (Auto) 92.6 H, Lymph % (Auto) 3.8 L, [place] % (Auto) 3.0, Eos % (Auto) 0.4, Baso % (Auto) 0.2, Neut # (Auto) 16.5 H, Lymph # (Auto) 0.7, [place] # (Auto) 0.5, Eos # (Auto) 0.1, Baso # (Auto) 0.0, Total Counted 100, Neutrophils % (Manual) 89 H, Lymphocytes % (Manual) 7 L, Monocytes % (Manual) 4, Platelet Estimate Normal, RBC Morphology Normal 10/22/22 12:10: Sodium 134 L, Potassium 4.8, Chloride 98, Carbon Dioxide 30, Anion Gap 10.8, BUN 37 H, Creatinine 1.10 H, Estimated Creat Clear 82, Estimated GFR 49 L, Est GFR ( Amer) 60, Glucose 378 H, Calcium 8.8, Total Bilirubin 0.6, AST 44 H, ALT 65 D, Alkaline Phosphatase 83, Total Protein 6.2 L, Albumin 3.7, Globulin 2.5, Albumin/Globulin Ratio 1.5 I & O for Labs for Last 24 Hours: Intake & Output 10/19/22 10/20/22 10/21/22 10/22/22 23:59 23:59 23:59 23:59 Intake Total 1320 / 1320 720 / 720 1440 / 1440 720 / 720 Output Total 1200 / 1200 1450 / 1450 300 / 300 Balance 1319 / 1319 -480 / -480 -10 / -10 420 / 420 Weight 106.367 kg 107.229 kg 107.53 kg 107.19 kg Microbiology Reports for the Last 24 Hours: Microbiology 10/16/22 19:33 Blood Blood Culture - Final NO GROWTH AFTER 5 DAYS 10/16/22 19:33 Blood Blood Culture - Final NO GROWTH AFTER 5 DAYS Constitutional: Present no acute distress Respiratory: Present accessory muscle use, decreased breath sounds, respiratory distress, wheezes and diminished air movement; Absent able to speak in complete sentences Cardiac: Present Reg Rate and Rhythm GI: Present normal bowel sounds; Absent tenderness Extremities: Present normal inspection and full ROM Skin: Present intact; Absent erythema Neuro: Present Grossly Intact and moves all extremities Assessment and Plan *Assessment and plan (1) Acute respiratory failure with hypoxia: Status: Acute Category: Medical Code(s): J96.01 - Acute respiratory failure with hypoxia (2) Pneumonia: Status: Acute Category: Medical Code(s): J18.9 - Pneumonia, unspecified organism (3) Tobacco abuse: Status: Acute Category: Medical Code(s): Z72.0 - Tobacco use (4) Anxiety disorder: Status: Acute Category: Medical Code(s): F41.9 - Anxiety disorder, unspecified (5) Diabetes: Status: Acute
[2022-10-22 17:13] LABS: POC Glucose,Bedside 438 (70-110)
[2022-10-22 21:06] LABS: POC Glucose,Bedside 366 (70-110)
--- NOTE | 2022-10-22 23:47 | PC.NURSE ---
COURTESY ROUND PATIENT AWAKE SITTING UP IN BED . PATIENT REQUESTED COFFEE AND PUDDING . PATIENT VOICED NO OTHER NEEDS AFTER SHE GOT HER SNACK . WATER PITCHER REFILLED , TRASH EMPTIED AND LINENS EMPTIED . CALL LIGHT WITHIN REACH
[2022-10-23] VITALS (10 sets, daily range): BP systolic 131–152; BP diastolic 62–82; PULSE 66–80; RESP 19–24; TEMP 36.7–37; O2SAT 86–98; BMI 34.7
--- NOTE | 2022-10-23 04:42 | PC.NURSE ---
Pt. is on nc, up ad veronica, fsbg last check was 366. No other changes noted.
[2022-10-23 06:12] LABS: POC Glucose,Bedside 289 (70-110)
[2022-10-23 07:28] LABS: Basophils % 0.2 % (0.1-2.0); Hematocrit 41.4 % (37.0-47.0); Hemoglobin 12.9 g/dL (12.2-16.2); Lymphocytes # 0.6 K/mm3 (0.7-4.5); Lymphocytes % 4.5 % (10-50); Mean Corpuscular Hemoglobin 27.4 pg (27.0-31.2); Mean Corpuscular Volume 88.1 fl (81-99); Mean Platelet Volume 8.9 fl (7.4-10.4); Monocytes # 0.6 K/mm3 (0.1-1.0); Monocytes % 4.1 % (1.7-9.3); Neutrophils # 12.6 K/mm3 (1.8-7.8); Neutrophils % 91.2 % (37.0-80.0); Platelet Count 204 K/mm3 (142-424); Red Cell Distribution Width 15.4 % (11.5-17.5); White Blood Count 13.8 K/mm3 (4.8-10.8)
[2022-10-23 07:35] LABS: Alanine Aminotransferase 56 U/L (12-78); Albumin Level 3.1 g/dl (3.5-5.0); Albumin/Globulin Ratio 1.3 (1.1-1.8); Alkaline Phosphatase 94 U/L (38-126); Anion Gap 8.5 mEq/L (5-15); Aspartate Amino Transferase 29 U/L (14-36); Bilirubin,Total 0.4 mg/dl (0.2-1.3); Blood Urea Nitrogen 36 mg/dl (7-17); Calcium 8.4 mg/dl (8.4-10.2); Carbon Dioxide 33 mmol/L (22.0-30.0); Chloride 99 mmol/L (98-107); Creatinine Clearance Estimated 81 mL/min (50-200); Estimated Glomerular Filt Rate 49 ml/min (>60); GFR (African American) 60 ML/MIN (>60); Globulin 2.3 g/dL (1.3-3.2); Glucose 275 mg/dl (74-100); MANUAL DIFFERENTIAL MANUAL DIFFERENTIAL (MANUAL DIFF); Magnesium 2.3 mg/dl (1.6-2.3); Phosphorous 4.3 mg/dl (2.5-4.5); Potassium 4.5 mmoL/L (3.5-5.1); Sodium 136 mmol/L (136-145); Total Protein,Serum 5.4 g/dl (6.3-8.2)
[2022-10-23 08:08] LABS: Lymphocytes % 3 % (10-50); Monocytes % 7 % (2-9); Neutrophils % 90 % (42-76); Total Cells Counted 100
[2022-10-23 08:09] LABS: Platelet Estimate Normal; RBC Morphology Normal
--- NOTE | 2022-10-23 08:34 | DIET.NUTRFU ---
RD saw patient this AM, she does report BM last night. She reports she goes regularly at home with no BM mgt. She also denies N/V and had no dietary concerns. Collected menu selection. BS continue to be elevated around 300's with steroid tx in place which can cause high BS. Insulin in place
--- NOTE | 2022-10-23 09:31 | EXP.PULM.PN ---
Subjective *Date: 10/23/22 *Time: 10:27 Interval history: No acute respiratory vents over the weekend. Patient admits continued improvement in her respiratory symptoms. Pulmonology Exam Inpatient Vital signs and Labs for Last 24 Hours: Temp Pulse Resp BP Pulse Ox FiO2 98.6 F 66 20 131/71 95 40 10/23/22 08:00 10/23/22 08:00 10/23/22 08:00 10/23/22 08:00 10/23/22 08:00 10/19/22 11:10 Laboratory Results - last 24 hr 10/22/22 10:56: POC Glucose 393 H* 10/22/22 12:10: WBC 17.8 H, RBC 4.89, Hgb 13.6, Hct 43.5, MCV 88.8, MCH 27.7, MCHC 31.2 L, RDW 15.5, Plt Count 257, MPV 9.4, Neut % (Auto) 92.6 H, Lymph % (Auto) 3.8 L, [place] % (Auto) 3.0, Eos % (Auto) 0.4, Baso % (Auto) 0.2, Neut # (Auto) 16.5 H, Lymph # (Auto) 0.7, [place] # (Auto) 0.5, Eos # (Auto) 0.1, Baso # (Auto) 0.0, Total Counted 100, Neutrophils % (Manual) 89 H, Lymphocytes % (Manual) 7 L, Monocytes % (Manual) 4, Platelet Estimate Normal, RBC Morphology Normal 10/22/22 12:10: Sodium 134 L, Potassium 4.8, Chloride 98, Carbon Dioxide 30, Anion Gap 10.8, BUN 37 H, Creatinine 1.10 H, Estimated Creat Clear 82, Estimated GFR 49 L, Est GFR ( Amer) 60, Glucose 378 H, Calcium 8.8, Total Bilirubin 0.6, AST 44 H, ALT 65 D, Alkaline Phosphatase 83, Total Protein 6.2 L, Albumin 3.7, Globulin 2.5, Albumin/Globulin Ratio 1.5 10/22/22 16:55: POC Glucose 438 H* 10/22/22 20:58: POC Glucose 366 H* 10/23/22 06:04: POC Glucose 289 H 10/23/22 06:22: WBC 13.8 H, RBC 4.70, Hgb 12.9, Hct 41.4, MCV 88.1, MCH 27.4, MCHC 31.0 L, RDW 15.4, Plt Count 204, MPV 8.9, Neut % (Auto) 91.2 H, Lymph % (Auto) 4.5 L, [place] % (Auto) 4.1, Eos % (Auto) 0.0 L, Baso % (Auto) 0.2, Neut # (Auto) 12.6 H, Lymph # (Auto) 0.6 L, [place] # (Auto) 0.6, Eos # (Auto) 0.0, Baso # (Auto) 0.0, Total Counted 100, Neutrophils % (Manual) 90 H, Lymphocytes % (Manual) 3 L, Monocytes % (Manual) 7, Platelet Estimate Normal, RBC Morphology Normal 10/23/22 06:22: Sodium 136, Potassium 4.5, Chloride 99, Carbon Dioxide 33 H, Anion Gap 8.5, BUN 36 H, Creatinine 1.10 H, Estimated Creat Clear 81, Estimated GFR 49 L, Est GFR ( Amer) 60, Glucose 275 H D, Calcium 8.4, Phosphorus 4.3, Magnesium 2.3, Total Bilirubin 0.4, AST 29 D, ALT 56, Alkaline Phosphatase 94, Total Protein 5.4 L, Albumin 3.1 L D, Globulin 2.3, Albumin/Globulin Ratio 1.3 I & O for Labs for Last 24 Hours: Intake & Output 10/20/22 10/21/22 10/22/22 10/23/22 23:59 23:59 23:59 23:59 Intake Total 720 / 720 1440 / 1440 1080 / 1080 360 / 360 Output Total 1200 / 1200 1450 / 1450 300 / 300 0 / 0 Balance -480 / -480 -10 / -10 780 / 780 360 / 360 Weight 236 lb 6.4 oz 237 lb 1 oz 236 lb 5 oz 234 lb 2 oz Microbiology Reports for the Last 24 Hours: Microbiology 10/16/22 21:22 Sputum - Expectorated Sputum Gram Stain - Final 10/16/22 21:22 Sputum - Expectorated Sputum Sputum Culture - Final Stenotrophomonas maltophilia Constitutional: Present moderate distress Head: Present normocephalic and atraumatic ENT: Present normal exam, normal oropharynx and mucous membranes moist Neck: Present normal inspection and full ROM Respiratory: Present prolonged expiratory phase, respiratory distress, wheezes, diminished air movement and able to speak in complete sentences; Absent accessory muscle use Cardiac: Present S1/S2, Tachycardia and radial pulses present GI: Present soft and distention; Absent tenderness or guarding Rectal (female): Present deferred (female): Present deferred Skin: Present intact; Absent cyanosis or jaundice Neuro: Present alert, awake and oriented x 3 Extremities: Present normal inspection; Absent clubbing or cyanosis Psychiatric: Present normal affect and cooperative Assessment and Plan *Assessment and plan (1) Pneumonia: Status: Acute Category: Medical Code(s): J18.9 - Pneumonia, unspecified organism (2) Acute respiratory failure with hypoxia: Status: Acute Category: Medical Code(s):
--- NOTE | 2022-10-23 09:32 | XR_ITS ---
FINAL REPORT CLINICAL HISTORY: PNM FINDINGS: A portable view of the chest was obtained. Comparison is made to a prior exam dated October 21, 2022. No change in a left-sided pacemaker. Cardiac and mediastinal silhouettes are within normal limits. There is medial right upper lobe opacity concerning for pneumonia. There is no pleural effusion or pneumothorax. IMPRESSION: Medial right upper lobe opacity concerning for pneumonia. Recommend follow-up to resolution. Reviewed, Interpreted and Dictated by Mónica Watkins MD Transcribed by Joe Chamberlain Authenticated and [facility]
--- NOTE | 2022-10-23 10:01 | PC.NURSE ---
pt sat 86% on RA. currently on 4l nc with sats 90-93%, weaned down from 5.5 at 0800. pt states she wants to go home but does not want to go home on 02 because she sometimes smokes in her house along with her neighbors.
[2022-10-23 12:08] LABS: POC Glucose,Bedside 362 (70-110)
[2022-10-23 14:34] LABS: POC Glucose,Bedside 446 (70-110)
--- NOTE | 2022-10-23 14:41 | EXP.ACUTE.PN ---
Subjective *Date: 10/23/22 *Time: 15:00 Interval history: Patient continues to require 4 L nasal cannula oxygen this morning. Sitting upright on bedside. In no significant distress. Afebrile. Using breathing treatments occasionally. Has missed a few overnight. Denies chest pain, nausea, vomiting. Still quite wheezy on exam Medical Exam Vital signs and Labs for Last 24 Hours: Vital Signs Temp Pulse Pulse Resp BP Pulse Ox 10/23/22 13:15 72 10/23/22 13:15 70 10/23/22 10:17 78 10/23/22 10:17 78 24 10/23/22 10:17 78 10/23/22 10:17 96 10/23/22 09:59 86 L 10/23/22 08:00 98.6 F 66 20 131/71 95 10/23/22 04:00 98.3 F 70 20 152/82 H 98 10/23/22 00:00 98.2 F 70 22 134/62 98 10/22/22 20:00 97 10/22/22 22:40 78 10/22/22 22:40 73 10/22/22 20:00 97.9 F 70 24 152/76 H 92 L 10/22/22 18:39 73 10/22/22 18:38 71 10/22/22 16:00 98.2 F 72 16 131/62 93 L 10/22/22 14:56 75 10/22/22 14:56 75 Intake and Output 10/22/22 10/23/22 10/23/22 23:59 07:59 15:59 Intake Total 360 / 1080 360 / 840 480 / 840 Output Total 0 / 300 0 / 0 Balance 360 / 780 360 / 840 480 / 840 Intake: Intake, Oral Amount 360 / 1080 360 / 840 480 / 840 Output: Output, Urine Amount 0 / 300 0 / 0 Other: Number of Unmeasured Voids 1 Weight 106.197 kg Patient Weight 10/23/22 23:59 Weight 106.197 kg Laboratory Results - last 24 hr 10/22/22 16:55: POC Glucose 438 H* 10/22/22 20:58: POC Glucose 366 H* 10/23/22 06:04: POC Glucose 289 H 10/23/22 06:22: WBC 13.8 H, RBC 4.70, Hgb 12.9, Hct 41.4, MCV 88.1, MCH 27.4, MCHC 31.0 L, RDW 15.4, Plt Count 204, MPV 8.9, Neut % (Auto) 91.2 H, Lymph % (Auto) 4.5 L, [place] % (Auto) 4.1, Eos % (Auto) 0.0 L, Baso % (Auto) 0.2, Neut # (Auto) 12.6 H, Lymph # (Auto) 0.6 L, [place] # (Auto) 0.6, Eos # (Auto) 0.0, Baso # (Auto) 0.0, Total Counted 100, Neutrophils % (Manual) 90 H, Lymphocytes % (Manual) 3 L, Monocytes % (Manual) 7, Platelet Estimate Normal, RBC Morphology Normal 10/23/22 06:22: Sodium 136, Potassium 4.5, Chloride 99, Carbon Dioxide 33 H, Anion Gap 8.5, BUN 36 H, Creatinine 1.10 H, Estimated Creat Clear 81, Estimated GFR 49 L, Est GFR ( Amer) 60, Glucose 275 H D, Calcium 8.4, Phosphorus 4.3, Magnesium 2.3, Total Bilirubin 0.4, AST 29 D, ALT 56, Alkaline Phosphatase 94, Total Protein 5.4 L, Albumin 3.1 L D, Globulin 2.3, Albumin/Globulin Ratio 1.3 10/23/22 11:36: POC Glucose 362 H* 10/23/22 14:23: POC Glucose 446 H* I & O for Labs for Last 24 Hours: Intake & Output 10/20/22 10/21/22 10/22/22 10/23/22 23:59 23:59 23:59 23:59 Intake Total 720 / 720 1440 / 1440 1080 / 1080 840 / 840 Output Total 1200 / 1200 1450 / 1450 300 / 300 0 / 0 Balance -480 / -480 -10 / -10 780 / 780 840 / 840 Weight 107.229 kg 107.53 kg 107.19 kg 106.197 kg Constitutional: Present no acute distress, obese and chronically ill appearing Head: Present atraumatic and normocephalic ENT: Present normal exam Neck: Present normal inspection Respiratory: Present prolonged expiratory phase, wheezes and normal respiratory effort; Absent rhonchi or crackles Cardiac: Present Reg Rate and Rhythm GI: Present soft and normal bowel sounds; Absent distention or tenderness Extremities: Present normal inspection and full ROM Skin: Present intact; Absent erythema Neuro: Present Grossly Intact, alert, awake, oriented x 3 and moves all extremities Assessment and Plan *Assessment and plan (1) Acute respiratory failure with hypoxia: Status: Acute Category: Medical Code(s): J96.01 - Acute respiratory failure with hypoxia (2) Pneumonia: Status: Acute Category: Medical Code(s): J18.9 - Pneumonia, unspecified organism (3) Tobacco abuse: Status: Acute Category: Medical Code(s): Z72.0 - Tobacco use (4) Anxiety disorder: Status: Acute Category: Me
[2022-10-23 16:56] LABS: POC Glucose,Bedside 309 (70-110)
--- NOTE | 2022-10-23 18:49 | PC.NURSE ---
pt has done well this shift. weaned o2 down to 2l, pt tolerating well with sats in the low 90s. c/o pain x 1. pt up as veronica, ambulates well. no concerns at this time.
[2022-10-24] VITALS (8 sets, daily range): BP systolic 116–158; BP diastolic 54–77; PULSE 54–87; RESP 20–26; TEMP 36.6–36.7; O2SAT 90–95; BMI 35.2
--- NOTE | 2022-10-24 05:49 | PC.NURSE ---
no changes from previous assessment, pt rested well, no acute distress
[2022-10-24 06:41] LABS: POC Glucose,Bedside 440 (70-110)
[2022-10-24 06:41] LABS: POC Glucose,Bedside 324 (70-110)
[2022-10-24 06:56] LABS: Basophils % 0.2 % (0.1-2.0); Hematocrit 45.7 % (37.0-47.0); Hemoglobin 13.9 g/dL (12.2-16.2); Lymphocytes # 0.6 K/mm3 (0.7-4.5); Mean Corpuscular HGB Conc 30.4 g/dL (31.8-35.4); Mean Corpuscular Hemoglobin 27.3 pg (27.0-31.2); Mean Corpuscular Volume 89.7 fl (81-99); Mean Platelet Volume 9.1 fl (7.4-10.4); Monocytes # 0.6 K/mm3 (0.1-1.0); Monocytes % 3.3 % (1.7-9.3); Neutrophils # 17.8 K/mm3 (1.8-7.8); Neutrophils % 93.4 % (37.0-80.0); Platelet Count 274 K/mm3 (142-424); Red Cell Distribution Width 15.3 % (11.5-17.5); White Blood Count 19.1 K/mm3 (4.8-10.8)
[2022-10-24 06:58] LABS: MANUAL DIFFERENTIAL MANUAL DIFFERENTIAL (MANUAL DIFF)
[2022-10-24 07:07] LABS: Alanine Aminotransferase 71 U/L (12-78); Albumin Level 3.5 g/dl (3.5-5.0); Albumin/Globulin Ratio 1.5 (1.1-1.8); Alkaline Phosphatase 139 U/L (38-126); Anion Gap 9.6 mEq/L (5-15); Aspartate Amino Transferase 36 U/L (14-36); Bilirubin,Total 0.4 mg/dl (0.2-1.3); Blood Urea Nitrogen 40 mg/dl (7-17); Calcium 8.4 mg/dl (8.4-10.2); Carbon Dioxide 31 mmol/L (22.0-30.0); Chloride 99 mmol/L (98-107); Creatinine Clearance Estimated 82 mL/min (50-200); Estimated Glomerular Filt Rate 49 ml/min (>60); GFR (African American) 60 ML/MIN (>60); Globulin 2.3 g/dL (1.3-3.2); Glucose 331 mg/dl (74-100); Phosphorous 4.8 mg/dl (2.5-4.5); Potassium 4.6 mmoL/L (3.5-5.1); Sodium 135 mmol/L (136-145); Total Protein,Serum 5.8 g/dl (6.3-8.2)
[2022-10-24 07:49] LABS: Lymphocytes % 3 % (10-50); Monocytes % 3 % (2-9); Neutrophils % 94 % (42-76); Platelet Estimate Normal; RBC Morphology Normal; Total Cells Counted 100
--- NOTE | 2022-10-24 09:47 | EXP.PULM.PN ---
Subjective *Date: 10/24/22 *Time: 10:53 Interval history: No acute respiratory events overnight. Patient admits continued improvement in her respiratory symptoms. Pulmonology Exam Inpatient Vital signs and Labs for Last 24 Hours: Temp Pulse Resp BP Pulse Ox FiO2 98.1 F 72 22 128/71 91 L 40 10/24/22 07:34 10/24/22 07:34 10/24/22 07:34 10/24/22 07:34 10/24/22 07:34 10/19/22 11:10 Laboratory Results - last 24 hr 10/23/22 11:36: POC Glucose 362 H* 10/23/22 14:23: POC Glucose 446 H* 10/23/22 16:44: POC Glucose 309 H* 10/23/22 20:51: POC Glucose 440 H* 10/24/22 06:13: POC Glucose 324 H* 10/24/22 06:35: WBC 19.1 H D, RBC 5.10, Hgb 13.9, Hct 45.7, MCV 89.7, MCH 27.3, MCHC 30.4 L, RDW 15.3, Plt Count 274 D, MPV 9.1, Neut % (Auto) 93.4 H, Lymph % (Auto) 3.0 L, [place] % (Auto) 3.3, Eos % (Auto) 0.0 L, Baso % (Auto) 0.2, Neut # (Auto) 17.8 H, Lymph # (Auto) 0.6 L, [place] # (Auto) 0.6, Eos # (Auto) 0.0, Baso # (Auto) 0.0, Total Counted 100, Neutrophils % (Manual) 94 H, Lymphocytes % (Manual) 3 L, Monocytes % (Manual) 3, Platelet Estimate Normal, RBC Morphology Normal 10/24/22 06:35: Sodium 135 L, Potassium 4.6, Chloride 99, Carbon Dioxide 31 H, Anion Gap 9.6, BUN 40 H, Creatinine 1.10 H, Estimated Creat Clear 82, Estimated GFR 49 L, Est GFR ( Amer) 60, Glucose 331 H, Calcium 8.4, Phosphorus 4.8 H, Total Bilirubin 0.4, AST 36, ALT 71 D, Alkaline Phosphatase 139 H, Total Protein 5.8 L, Albumin 3.5 D, Globulin 2.3, Albumin/Globulin Ratio 1.5 I & O for Labs for Last 24 Hours: Intake & Output 10/21/22 10/22/22 10/23/22 10/24/22 23:59 23:59 23:59 23:59 Intake Total 1440 / 1440 1080 / 1080 1320 / 1520 560 / 560 Output Total 1450 / 1450 300 / 300 0 / 200 500 / 500 Balance -10 / -10 780 / 780 1320 / 1320 60 / 60 Weight 237 lb 1 oz 236 lb 5 oz 234 lb 2 oz 237 lb 8 oz Microbiology Reports for the Last 24 Hours: Microbiology 10/16/22 21:22 Sputum - Expectorated Sputum Gram Stain - Final 10/16/22 21:22 Sputum - Expectorated Sputum Sputum Culture - Final Stenotrophomonas maltophilia Constitutional: Present moderate distress Head: Present normocephalic and atraumatic ENT: Present normal exam, normal oropharynx and mucous membranes moist Neck: Present normal inspection and full ROM Respiratory: Present prolonged expiratory phase, respiratory distress, wheezes, diminished air movement and able to speak in complete sentences; Absent accessory muscle use Cardiac: Present S1/S2, Tachycardia and radial pulses present GI: Present soft and distention; Absent tenderness or guarding Rectal (female): Present deferred (female): Present deferred Skin: Present intact; Absent cyanosis or jaundice Neuro: Present alert, awake and oriented x 3 Extremities: Present normal inspection; Absent clubbing or cyanosis Psychiatric: Present normal affect and cooperative Assessment and Plan *Assessment and plan (1) Pneumonia: Status: Acute Category: Medical Code(s): J18.9 - Pneumonia, unspecified organism (2) Acute respiratory failure with hypoxia: Status: Acute Category: Medical Code(s): J96.01 - Acute respiratory failure with hypoxia Plan Ms. Stallings 67-year-old female history of COPD prior history of COVID-19 pneumonia treated with remdesivir following in pulmonary clinic for COPD recently seen earlier this month treated with COPD exacerbation with prednisone and Z-Ambrose admitted to the hospital again with worsening respiratory distress admitted on 10/16/2020 pulmonary was consulted for further evaluation. Chest x-ray on admission bilateral lower lobe airspace disease. Worsening leukocytosis. Patient appeared to be in severe respiratory distress. Bilateral diffuse wheezing. Patient was admitted on 10/16/2022, has been receiving only doxycycline since admission despite her chronic pulmonary and multiple recent recent exacerbation. Sputum cultures eventually grew stenotrophomonas o
--- NOTE | 2022-10-24 09:49 | XR_ITS ---
FINAL REPORT CLINICAL HISTORY: PNM COMPARISON: 10/23/2022 FINDINGS: A single PA view of the chest was obtained. The cardiac and mediastinal silhouettes are within normal limits. Left-sided pacer is identified. The medial right upper lobe opacity has improved. No new infiltrate is identified. There is no effusion or pneumothorax. No acute osseous abnormality is identified. IMPRESSION: Improvement in the medial right upper lobe opacity. Reviewed, Interpreted and Dictated by Mónica Watkins MD Transcribed by Winnie Goodrich Authenticated and [facility]
--- NOTE | 2022-10-24 11:06 | EXP.DC.SUM ---
General Admission date:: 10/16/22 Discharge date: 10/24/22 HPI HPI HPI: Ms. Stallings is a 67-year-old female with a past medical history that is positive for COPD, chronic tobacco use, Atrial Fibrillation on chronic anticoagulation, T2DM and CHF. She presents to [facility] through the ER due to a 1-week history of progressively worsening cough, shortness of air and wheezing.? She reports that she was seen in the clinic and diagnosed with COPD exacerbation and took Azithromycin, steroid and cough medications with progressive worsening of her symptoms, so she came into the ER for evaluation. In the ER the patient's oxygen was noted to be 88 on room air.? She reports that she no longer has home oxygen due to insurance not paying for it.? ABG taken on 4L was unremarkable.? Cxray showed some mininimal bibasilar ground glass opacities.? Covid and Flu testing were negative.? BNP was within normal limits at 159.? Procalcitonin was normal at 0.064.? In the ER the patient received Methylprednisolone 125 mg iv x 1 and Duoneb treatments x 2. The patient will be admitted with initial impression:? Acute Exacerbation of COPD.? Full Respiratory panel will be ordered, she will be placed on doxycycyline.? Sputum obtained, MRSA pcr ordered, urine for strep and legionella ordered.? She will be continued on steroids and nebulizers.? She was counseled on the need to quit smoking.? She reports that she is down to 4 cigarettes daily.? She denied the need for NRT.? Hospital Course Hospital Course Hospital Course: 67-year-old female with past medical history of COPD, chronic tobacco abuse, CHF, DM presents with a 1-week history of progressive worsening cough, shortness of air and wheezing after being diagnosed with COPD exacerbation. Positive for rhinovirus on admission. Very slow improvement and progression with treatment. Sputum sample was found to be positive for stenotrophomonas. Required prolonged course with breathing treatments, steroids, antibiotics to reach stable point for discharge home. Pulmonology consulted during admission. Appreciate their recommendations. Problems addressed as follows: - Acute Exacerbation of COPD - Hypoxia Initially requiring 4 to 6 L supplemental oxygen to maintain sats greater 90%. Positive for rhinovirus on initial presentation. Treated for COPD exacerbation with scheduled DuoNebs, budesonide, IV steroids, and initially doxycycline. Sputum culture positive for stenotrophomonas, transitioned to Bactrim. Plan to complete 14 days total of Bactrim double strength twice daily. Medication sent to pharmacy to complete course. Pulmonology consulted during her hospitalization. Recommend continuing her DuoNebs at discharge. Continue Trelegy. Continue her Singulair. Will have follow-up with pulmonology in 1 week after discharge for further monitoring and management. Patient met criteria for oxygen at discharge, still requiring 2 L nasal cannula continuously after her gradual wean during hospitalization. Room air saturation 85% on day of discharge. - Atrial Fibrillation Continued home Cardizem, bisoprolol, Xarelto - Diabetes Significant hyperglycemia during admission due to steroids. Required increase glargine, treated with 80 units nightly. Continued her metformin 500 mg twice daily. Additionally required short acting 3 times a day with meals. Continued her Januvia during hospitalization as well. Will discharge home on higher dose glargine, see med rec for full details. Recommend further discussion with PCP in the near future close follow-up for further adjustment. Resume home regimen aside from increased dose of glargine. - CHF No current signs of exacerbation. No peripheral edema, no effusions - Anxiety Disorder continue patient's home Valium dose - Tobacco Abuse Counseled on the need to quit, Denies the need for NRT. Strong concern patient is going to continue. Stressed the importance of stopping her she
[2022-10-24 11:31] LABS: POC Glucose,Bedside 433 (70-110)
== END 2022-10-24 16:45 | disposition home or self-care (01) | DRG 177 ==
LOC: ER 21:26 → 2ND 10-17 00:07
PROVIDERS: Internal Medicine Adolescent Medicine; Nurse Practitioner Family; Student in an Organized Health Care Education/Training Program; Admitting Provider Family Medicine; Emergency Provider Emergency Medicine; PCP Emergency Medicine; Visit Provider Family Medicine
DX: J15.6 Pneumonia due to other Gram-negative bacteria (principal); J96.01 Acute respiratory failure with hypoxia; J44.1 Chronic obstructive pulmonary disease with (acute) exacerbation; Z95.0 Presence of cardiac pacemaker; Z79.4 Long term (current) use of insulin; F17.210 Nicotine dependence, cigarettes, uncomplicated; I48.0 Paroxysmal atrial fibrillation; Z86.16 Personal history of COVID-19; E78.5 Hyperlipidemia, unspecified; Z96.651 Presence of right artificial knee joint; I25.10 Atherosclerotic heart disease of native coronary artery without angina pectoris; F41.9 Anxiety disorder, unspecified; Z71.6 Tobacco abuse counseling; I11.0 Hypertensive heart disease with heart failure; I50.9 Heart failure, unspecified; E11.65 Type 2 diabetes mellitus with hyperglycemia
CPT/HCPCS: 36415; 71045; 80048; 80053; 80076; 81001; 82009; 82803; 82962; 83605; 83735; 83880; 84100; 84145; 84484; 85007; 85025; 85651; 86140; 87040; 87070; 87077; 87186; 87205; 87581; 87632; 87641; 87798; 87899; 93005; 94640; 94668; 94760; 94761; 97162; 97165; 97530; 97535; 99285; C9803; J0131; U0003; U0005

== ENCOUNTER → 2022-11-15 12:43 | Outpatient (CLI) | payer MEDICARE, MEDICAID, SELFPAY ==
--- NOTE | 2022-11-15 13:38 | PC.NURSE ---
Pre and Post Spirometry completed with 6 Minute Walk Test without incident. Albuterol 0.083% given via HHN, per protocol, Pt tolerated tx well.
== END ==
PROVIDERS: PCP Emergency Medicine; Visit Provider Internal Medicine Pulmonary Disease
DX: R06.09 Other forms of dyspnea (principal)
CPT/HCPCS: 94060; 94618

== ENCOUNTER 2022-12-11 08:44 | Inpatient (IN) | payer MEDICAID, MEDICARE, SELFPAY ==
[2022-12-11] VITALS (13 sets, daily range): BP systolic 104–154; BP diastolic 47–84; PULSE 70–110; RESP 16–24; TEMP 36.5–37.1; O2SAT 90–95; BMI 34.0; BMI 33.3
--- NOTE | 2022-12-11 08:50 | HMH.EDGENADL ---
Discharge Plan Disposition Patient Disposition: Admitted As Inpatient Prescriptions Prescriptions: No Action albuterol sulfate 90 mcg/actuation HFA aerosol inhaler 2 puff INHALATION Q6HP PRN (Reason: Shortness Of Breath) 90 Days Qty: 8.5 0RF Trelegy Ellipta 200-62.5-25 mcg blister with device 1 inh inhalation DAILY 90 Days Qty: 90 3RF ipratropium-albuterol 0.5 mg-3 mg(2.5 mg base)/3 mL solution for nebulization 3 ml inhalation QID PRN (Reason: shortness of breath or wheezing) Qty: 90 3RF fluticasone propionate [Flonase Allergy Relief] 50 mcg/actuation spray,suspension 2 spray intranasal ONCE 90 Days Qty: 16 3RF Rx Instructions: administer into each nostril diazepam [Valium] 2 mg tablet 2 mg PO BID Qty: 60 1RF gabapentin 300 mg capsule 300 mg PO Q8H Qty: 90 1RF oxycodone-acetaminophen 10-325 mg tablet 1 tab PO QID PRN (Reason: Moderate Pain (Scale Score 5-6)) Qty: 120 0RF bisoprolol fumarate 10 mg tablet 10 mg PO BID Qty: 60 5RF diltiazem HCl 240 mg capsule,extended release 24 hr 240 mg PO DAILY Qty: 90 3RF Januvia 25 mg tablet See Rx Instructions .ROUTE .COMPLEX Qty: 30 2RF Dose Instruction: TAKE ONE TABLET BY MOUTH EVERY DAY Rx Instructions: TAKE ONE TABLET BY MOUTH EVERY DAY aspirin 81 mg tablet,delayed release (DR/EC) See Rx Instructions .ROUTE .COMPLEX Qty: 30 11RF Dose Instruction: TAKE ONE TABLET BY MOUTH DAILY Rx Instructions: TAKE ONE TABLET BY MOUTH DAILY glipizide 10 mg tablet See Rx Instructions .ROUTE .COMPLEX Qty: 60 2RF Dose Instruction: TAKE ONE TABLET BY MOUTH TWICE DAILY (with THE 2 largest meals of THE DAY) Rx Instructions: TAKE ONE TABLET BY MOUTH TWICE DAILY (with THE 2 largest meals of THE DAY) (DME) lancets [TRUEplus Lancets] 33 gauge misc See Rx Instructions .ROUTE .COMPLEX Qty: 100 2RF Dose Instruction: USE TO test blood glucose level TWICE DAILY DIRECTED Rx Instructions: USE TO test blood glucose level TWICE DAILY DIRECTED ropinirole 0.25 mg tablet 0.25 mg PO HS Rx Instructions: TAKE ONE TABLET BY MOUTH EVERY DAY AT BEDTIME FOR restless LEGS montelukast 10 mg tablet 10 mg PO HS Rx Instructions: TAKE ONE TABLET BY MOUTH EVERY DAY AT BEDTIME FOR allergies furosemide 40 mg tablet 40 mg PO DAILY Rx Instructions: TAKE ONE TABLET BY MOUTH EVERY DAY atorvastatin 40 mg tablet 40 mg PO HS fluoxetine 20 mg capsule 20 mg PO BID Rx Instructions: TAKE ONE CAPSULE BY MOUTH TWICE DAILY FOR MOOD Trelegy Ellipta 200-62.5-25 mcg blister with device 1 inh INHALATION DAILY metformin 500 mg tablet 500 mg PO BID Rx Instructions: TAKE ONE TABLET BY MOUTH TWICE DAILY potassium chloride 20 mEq tablet,ER particles/crystals 20 meq PO DAILY Label Comments: TAKE ONE TABLET BY MOUTH EVERY DAY pantoprazole 40 mg tablet,delayed release (DR/EC) 40 mg PO DAILY tizanidine 4 mg tablet 4 mg PO BIDP PRN (Reason: muscle spasms) Label Comments: TAKE ONE TABLET BY MOUTH TWICE DAILY NEEDED FOR MUSCLE SPASMS MAY CAUSE DROWSINESS Xarelto 20 mg tablet 20 mg PO QPMWITHMEAL Rx Instructions: TAKE ONE TABLET BY MOUTH EVERY DAY with evening meal ipratropium-albuterol 0.5 mg-3 mg(2.5 mg base)/3 mL Solution For Nebulization 3 ml inhalation Q4RT 30 Days Qty: 120 0RF insulin glargine [Basaglar KwikPen U-100 Insulin] 100 unit/mL (3 mL) insulin pen 70 unit SQ HS 30 Days Qty: 18 0RF Rx Instructions: INJECT 60 UNITS SUBCUTANEOUSLY EVERY NIGHT AT BEDTIME Referrals Follow up/Referrals: Ilir Jeffers MD [Primary Care Provider] - See instructions Clinical Impressions Clinical Impression: Acute exacerbation of chronic obstructive pulmonary disease, Acute respiratory failure with hypoxia Discharge ED Provider: Ty Gomez General Adult [facility] General Chief comp
--- NOTE | 2022-12-11 08:54 | XR_ITS ---
FINAL REPORT TECHNIQUE: Single view chest CLINICAL HISTORY: dyspnea COMPARISON: 10/24/2022 FINDINGS: A single view of the chest was obtained. There is a left subclavian pacemaker in place. The heart and mediastinum are within normal limits. The lungs are clear. There is no pneumothorax. Osseous structures are unremarkable. IMPRESSION: No acute cardiopulmonary process. Reviewed, Interpreted and Dictated by Vickey Christianson III, MD Transcribed by Lea Zaidi Authenticated and [facility]
--- NOTE | 2022-12-11 08:55 | ECG_ITS ---
APPROVED REPORT Exam: Resting ECG HR:69 bpm ECG Measurements Heart Rate 69 AXES NE 167 P 110 QRSd 81 QRS 33 QT 389 T 66 QTc 409 Conclusion ELECTRONIC ATRIAL PACEMAKER ABNORMAL RHYTHM ECG UNCONFIRMED REPORT Electronically signed by : Cristopher Ryder MD 12/11/2022 21:14:59
--- NOTE | 2022-12-11 09:20 | PC.NURSE ---
rt at bs
[2022-12-11 09:25] LABS: Alanine Aminotransferase 35 U/L (12-78); Albumin Level 3.8 g/dl (3.5-5.0); Albumin/Globulin Ratio 1.7 (1.1-1.8); Alkaline Phosphatase 134 U/L (38-126); Anion Gap 14.8 mEq/L (5-15); Aspartate Amino Transferase 32 U/L (14-36); Bilirubin,Total 0.4 mg/dl (0.2-1.3); Blood Urea Nitrogen 21 mg/dl (7-17); Calcium 9.2 mg/dl (8.4-10.2); Carbon Dioxide 24 mmol/L (22.0-30.0); Chloride 103 mmol/L (98-107); Creatinine Clearance Estimated 87 mL/min (50-200); Estimated Glomerular Filt Rate 71 ml/min (>60); GFR (African American) 86 ML/MIN (>60); Globulin 2.3 g/dL (1.3-3.2); Glucose 183 mg/dl (74-100); Potassium 4.8 mmoL/L (3.5-5.1); Sodium 137 mmol/L (136-145); Total Protein,Serum 6.1 g/dl (6.3-8.2)
[2022-12-11 09:27] LABS: VBG Base Excess -3.8 mmol/L (-2.4-2.3); VBG HCO3 20.9 mmol/L (23-30); VBG PCO2 34.1 mmol/L (35-51); VBG PH 7.41 mmol/L (7.31-7.41); VBG PO2 48.9 mmol/L (28-40); VBG Total CO2 21.9 mmol/L (23-27)
[2022-12-11 09:30] LABS: Basophils # 0.1 K/mm3 (0-0.2); Basophils % 0.7 % (0.1-2.0); Eosinophils # 0.2 K/mm3 (0.0-0.4); Eosinophils % 2.2 % (0.1-12.0); Hematocrit 40.8 % (37.0-47.0); Hemoglobin 12.6 g/dL (12.2-16.2); Lymphocytes # 1.8 K/mm3 (0.7-4.5); Lymphocytes % 15.9 % (10-50); Mean Corpuscular Hemoglobin 26.7 pg (27.0-31.2); Mean Corpuscular Volume 86.2 fl (81-99); Mean Platelet Volume 9.3 fl (7.4-10.4); Monocytes # 0.5 K/mm3 (0.1-1.0); Monocytes % 4.5 % (1.7-9.3); Neutrophils # 8.7 K/mm3 (1.8-7.8); Neutrophils % 76.8 % (37.0-80.0); Platelet Count 250 K/mm3 (142-424); Red Blood Count 4.73 M/mm3 (4.20-5.40); Red Cell Distribution Width 16.6 % (11.5-17.5); White Blood Count 11.4 K/mm3 (4.8-10.8)
[2022-12-11 09:37] LABS: NT Pro Brain Natriuretic Pep. 242 pg/mL (0-125)
[2022-12-11 09:40] LABS: Troponin I < 0.01 ng/ml (0.00-0.034)
[2022-12-11 09:45] LABS: Coronavirus 19, PCR Not Detected (NotDetected); Influenza A, PCR Not Detected (NotDetected); Influenza B, PCR Not Detected (NotDetected)
--- NOTE | 2022-12-11 09:49 | PC.NURSE ---
notified care management of admission
--- NOTE | 2022-12-11 10:24 | PC.NURSE ---
called charge on second floor for bed assignment (okayed per house), pt assigned to room 212, notified registration staff pt is obs admission(per care management)
--- NOTE | 2022-12-11 10:29 | PC.NURSE ---
report called to Janice on second floor
--- NOTE | 2022-12-11 10:50 | PC.NURSE ---
PT BEING TRANSPORTED UP FOR ADMISSION
--- NOTE | 2022-12-11 10:56 | PC.NURSE ---
arrived to floor by w/c from ED
--- NOTE | 2022-12-11 11:06 | HMH.PHAINT1 ---
Pharmacy Intervention Comments: HOME MEDICATIONS VERIFIED BY LIST FROM OUTSIDE PHARMACY.
[2022-12-11 11:36] LABS: POC Glucose,Bedside 179 (70-110)
--- NOTE | 2022-12-11 12:27 | EXP.HP ---
History of Present Illness *Admission Date: 12/11/22 *Reason for visit:: dyspnea *History of present illness: Ms. Stallings is a 67-year-old female with a past medical history that is positive for COPD, chronic tobacco use, Atrial Fibrillation on chronic anticoagulation, T2DM and CHF. She presented to the ER due to 2-3 days of progressively worsening cough, shortness of air and wheezing. Was recently admitted 2 months ago for similar occurrence. In the ER her oxygen was noted to be 88% on room air. He is no longer on supplemental oxygen at home as she did not need it after improving from last COPD exacerbation. Found to have significant wheezing. Given her new oxygen requirement, significant wheeze, and difficulty breathing, initiated on steroids and antibiotics. ER consulted medicine for admission. VBG with hypoxia noted. Mild elevation of white cell count of 11,000. Respiratory panel negative. On arrival to the floor, patient appears more ill from her baseline chronic state. Started on doxycycline and methylprednisolone. Denies any chest pain, nausea, vomiting. No confusion. Does report she continues to smoke, down to 3 to 5 cigarettes daily. Reports compliance with home regimen including inhalers PFSH [facility] Disclaimer: The information contained in this section may have been updated after the patient was seen, as this information can be updated by other users. Medical History Acute respiratory failure with hypoxia Allergic rhinitis Allergic rhinitis, unspecified Asthma CAD (coronary artery disease) Cardiac pacemaker in situ COPD (chronic obstructive pulmonary disease) COPD (chronic obstructive pulmonary disease) COPD exacerbation COPD exacerbation Diabetes (~06/2020) Encounter for screening for malignant neoplasm of lung in current smoker with 30 pack year history or greater Family history of asthma Family history of asthma Fatigue HHD (hypertensive heart disease) History of 2019 novel coronavirus disease (COVID-19) History of 2019 novel coronavirus disease (COVID-19) History of asthma History of asthma Hyperlipemia On statin therapy PAF (paroxysmal atrial fibrillation) Pneumonia Stopped smoking with greater than 30 pack year history Stopped smoking with greater than 30 pack year history Surgical History History of arthroplasty of right knee History of cholecystectomy History of tonsillectomy Hx of cholecystectomy Hx of tonsillectomy Family History Diabetes Coronary artery disease Hyperlipidemia Cancer Hypertension Social History Smoking Status: Current every day smoker tobacco type: cigarettes packs per day: 1 smoking status stop date: 09/12/2022 second hand exposure: Yes alcohol intake: never substance use type: denies use current occupational status: retired Travel in the last 8 weeks: None household members: none housing: house marital status: number of children: 0 current occupational exposures/hazards: No caffeine: Yes Review of Systems Review of Systems Review of systems (narrative): 14 point review of systems performed, pertinent positives and negatives as per HPI Meds Home Medications and Allergies Home Medications Medication Instructions Recorded Confirmed Type atorvastatin 40 mg tablet 40 mg PO HS Cholesterol 07/16/22 12/11/22 History fluoxetine 20 mg capsule 20 mg PO BID Mood 07/16/22 12/11/22 History fluticasone fur. 200 mcg-umeclid 1 inh inhalation DAILY COPD 07/16/22 12/11/22 History 62.5 mcg-vilant 25 mcg inhalat.powder (Trelegy Ellipta) furosemide 40 mg tablet 40 mg PO DAILY Fluid 07/16/22 12/11/22 History metformin 500 mg tablet 500 mg PO BID Diabetes 07/16/22 12/11/22 History montelukast 10 mg tablet 10 mg PO HS Allergies 07/16/22 12/11/22 History ropinirole 0.25 mg tablet 0.25 mg PO HS
[2022-12-11 12:28] LABS: Troponin I < 0.01 ng/ml (0.00-0.034)
[2022-12-11 12:56] LABS: Adenovirus,PCR Not Detected (NotDetected); Bordetella Pertussis Not Detected (NotDetected); Chlamydophila Pneumoniae, PCR Not Detected (NotDetected); Coronavirus 19, PCR Not Detected (NotDetected); Coronavirus 229E Not Detected (NotDetected); Coronavirus NL63 Not Detected (NotDetected); Coronavirus OC43 Not Detected (NotDetected); Coronovirus HKU1,PCR Not Detected (NotDetected); Human Metapneumovirus Not Detected (NotDetected); Influenza A, PCR Not Detected (NotDetected); Influenza AH1, 2009 Not Detected (NotDetected); Influenza AH1, PCR Not Detected (NotDetected); Influenza AH3,PCR Not Detected (NotDetected); Influenza B, PCR Not Detected (NotDetected); Mycoplasma Pneumoniae, PCR Not Detected (NotDetected); Parainfluenza 1, PCR Not Detected (NotDetected); Parainfluenza 2, PCR Not Detected (NotDetected); Parainfluenza 3, PCR Not Detected (NotDetected); Parainfluenza 4, PCR Not Detected (NotDetected); Respiratory Syncytial Virus Not Detected (NotDetected); Rhinovirus/Enterovirus Not Detected (NotDetected)
[2022-12-11 15:16] LABS: Troponin I < 0.01 ng/ml (0.00-0.034)
[2022-12-11 17:12] LABS: POC Glucose,Bedside 301 (70-110)
--- NOTE | 2022-12-11 19:59 | PC.NURSE ---
Pt requests prn cough medication, Sky Melchor contacted for prn orders, see new orders.
[2022-12-12] VITALS (13 sets, daily range): BP systolic 114–126; BP diastolic 52–61; PULSE 70–84; RESP 18–21; TEMP 36.7–37.2; O2SAT 90–95; BMI 34.1; BMI 33.9
[2022-12-12 06:23] LABS: Eosinophils % 0.1 % (0.1-12.0); Hematocrit 38.7 % (37.0-47.0); Hemoglobin 11.7 g/dL (12.2-16.2); Lymphocytes # 1.1 K/mm3 (0.7-4.5); Lymphocytes % 6.1 % (10-50); Mean Corpuscular HGB Conc 30.4 g/dL (31.8-35.4); Mean Corpuscular Hemoglobin 26.7 pg (27.0-31.2); Mean Corpuscular Volume 87.9 fl (81-99); Mean Platelet Volume 9.8 fl (7.4-10.4); Monocytes # 0.5 K/mm3 (0.1-1.0); Monocytes % 2.8 % (1.7-9.3); Neutrophils # 16.1 K/mm3 (1.8-7.8); Platelet Count 240 K/mm3 (142-424); Red Cell Distribution Width 16.4 % (11.5-17.5); White Blood Count 17.7 K/mm3 (4.8-10.8)
[2022-12-12 06:24] LABS: MANUAL DIFFERENTIAL MANUAL DIFFERENTIAL (MANUAL DIFF)
[2022-12-12 06:43] LABS: Alanine Aminotransferase 43 U/L (12-78); Albumin Level 3.6 g/dl (3.5-5.0); Albumin/Globulin Ratio 1.6 (1.1-1.8); Alkaline Phosphatase 114 U/L (38-126); Anion Gap 16.8 mEq/L (5-15); Aspartate Amino Transferase 35 U/L (14-36); Bilirubin,Total 0.2 mg/dl (0.2-1.3); Blood Urea Nitrogen 22 mg/dl (7-17); Carbon Dioxide 23 mmol/L (22.0-30.0); Chloride 102 mmol/L (98-107); Creatinine Clearance Estimated 88 mL/min (50-200); Estimated Glomerular Filt Rate 62 ml/min (>60); GFR (African American) 75 ML/MIN (>60); Globulin 2.3 g/dL (1.3-3.2); Glucose 326 mg/dl (74-100); Magnesium 1.8 mg/dl (1.6-2.3); Potassium 4.8 mmoL/L (3.5-5.1); Sodium 137 mmol/L (136-145); Total Protein,Serum 5.9 g/dl (6.3-8.2)
[2022-12-12 07:18] LABS: POC Glucose,Bedside 309 (70-110)
[2022-12-12 07:18] LABS: POC Glucose,Bedside 342 (70-110)
[2022-12-12 07:40] LABS: Lymphocytes % 3 % (10-50); Monocytes % 2 % (2-9); Neutrophils % 95 % (42-76); Platelet Estimate Normal; RBC Morphology Normal; Total Cells Counted 100
--- NOTE | 2022-12-12 07:41 | EXP.ACUTE.PN ---
Subjective *Date: 12/12/22 *Time: 09:51 Interval history: Still significantly wheezy this morning, continue to require 2 L nasal cannula oxygen. No significant improvement from yesterday. Tolerating p.o. intake without any nausea. No chest pain. Continues to feel dyspneic. Having muscle cramps, asking for her tizanidine to be restarted. Afebrile overnight. Medical Exam Vital signs and Labs for Last 24 Hours: Vital Signs Temp Pulse Pulse Resp BP BP Pulse Ox 12/12/22 07:33 98.3 F 76 20 117/61 92 L 12/12/22 05:45 78 12/12/22 05:45 80 12/12/22 05:45 95 12/12/22 04:00 98.3 F 70 18 118/52 L 12/12/22 01:47 73 12/12/22 01:47 73 12/11/22 21:36 83 12/11/22 21:36 83 12/11/22 20:00 98.4 F 73 18 118/47 L 92 L 12/11/22 18:02 70 12/11/22 18:02 76 12/11/22 18:02 91 L 12/11/22 16:00 98.8 F 73 22 138/56 L 95 12/11/22 14:15 72 12/11/22 14:15 76 12/11/22 14:15 92 L 12/11/22 11:13 98.0 F 70 22 123/61 12/11/22 10:52 70 18 115/58 L 94 L 12/11/22 10:30 71 18 104/71 L 94 L 12/11/22 11:09 98.7 F 70 24 115/58 L 91 L 12/11/22 10:00 70 22 123/61 91 L 12/11/22 09:30 70 18 117/63 95 12/11/22 09:20 70 12/11/22 09:20 84 12/11/22 09:20 90 L 12/11/22 08:52 97.7 F 110 H 16 154/84 H 93 L Intake and Output 12/11/22 12/11/22 12/12/22 15:59 23:59 07:59 Intake Total 360 / 1210 600 / 1210 250 / 250 Output Total 200 / 200 0 / 0 Balance 360 / 1010 400 / 1010 250 / 250 Intake: Intake, Oral Amount 360 / 960 600 / 960 Intake, Total IV Amount 250 / 250 Doxycycline Hyclate 100 mg In 0 250 / 250 .9 % Sodium Chloride 250 ml @ 166.667 mls/hr IV Q12H [facility] Rx#: [id number] Output: Output, Urine Amount 200 / 200 0 / 0 Other: Number of Unmeasured Voids 1 Weight 102.285 kg 104.44 kg Patient Weight 12/12/22 23:59 Weight 104.44 kg Laboratory Results - last 24 hr 12/11/22 08:55: VBG pH 7.41, VBG pCO2 34.1 L, VBG pO2 48.9 H, VBG HCO3 20.9 L, VBG Total CO2 21.9 L, VBG O2 Saturation 86.0 H, VBG Base Excess -3.8 L 12/11/22 09:04: Sodium 137, Potassium 4.8, Chloride 103, Carbon Dioxide 24, Anion Gap 14.8, BUN 21 H, Creatinine 0.80, Estimated Creat Clear 87, Estimated GFR 71, Est GFR ( Amer) 86, Glucose 183 H, Calcium 9.2, Total Bilirubin 0.4, AST 32, ALT 35, Alkaline Phosphatase 134 H, Troponin I < 0.01, NT-Pro-B Natriuret Pep 242 H, Total Protein 6.1 L, Albumin 3.8, Globulin 2.3, Albumin/Globulin Ratio 1.7 12/11/22 09:15: WBC 11.4 H, RBC 4.73, Hgb 12.6, Hct 40.8, MCV 86.2, MCH 26.7 L, MCHC 31.0 L, RDW 16.6, Plt Count 250, MPV 9.3, Neut % (Auto) 76.8, Lymph % (Auto) 15.9, [place] % (Auto) 4.5, Eos % (Auto) 2.2, Baso % (Auto) 0.7, Neut # (Auto) 8.7 H, Lymph # (Auto) 1.8, [place] # (Auto) 0.5, Eos # (Auto) 0.2, Baso # (Auto) 0.1 12/11/22 09:43: SARS-CoV-2 (PCR) Not detected, Influenza A Untype (PCR) Not detected, Influenza Type B (PCR) Not detected 12/11/22 09:43: Chlamy pneumoniae PCR Not detected, Adenovirus (PCR) Not detected, B. pertussis DNA (PCR) Not detected, Coronavirus OC43 (PCR) Not detected, Coronavirus HKU1 (PCR) Not detected, Coronavirus 229E (PCR) Not detected, SARS-CoV-2 (PCR) Not detected, Coronavirus NL63 (PCR) Not detected, Human Metapneumovir PCR Not detected, Influenza A (H1) PCR Not detected, Influ A (H1N1/) PCR Not detected, Influenza A (H3) PCR Not detected, Influenza Type A (PCR) Not detected, Influenza Type B (PCR) Not detected, M. pneumoniae (PCR) Not detected, Parainfluenza 1 (PCR) Not detected, Parainfluenza 2 (PCR) Not detected, Parainfluenza 3 (PCR) Not detected, Parainfluenza 4 (PCR) Not detected, RSV (PCR) Not detected, Entero/Rhino (PCR) Not detected 12/11/22 11:17: POC Glucose 179 H 12/11/22 11:55: Troponin I < 0.01 12/11/22 14:40: Troponin I < 0.01 12/11/22 17:02: POC Glucose 301 H* 05
[2022-12-12 08:53] LABS: Hemoglobin A1C 8.1 % (4.0-6.0)
--- NOTE | 2022-12-12 09:48 | EXP.PULM.CON ---
History of Present Illness History of present illness: Ms. Stallings is 67-year-old female greater than 60-owtk-gnyo smoking history prior diagnosis of COPD recent hospital admissions for COPD COPD exacerbation, stenotrophomonas pneumonia status post Bactrim for 14 days presented to the hospital again today with worsening respiratory distress along with wheezing and productive phlegm. [facility] Disclaimer: The information contained in this section may have been updated after the patient was seen, as this information can be updated by other users. Medical History Acute respiratory failure with hypoxia Allergic rhinitis Allergic rhinitis, unspecified Asthma CAD (coronary artery disease) Cardiac pacemaker in situ COPD (chronic obstructive pulmonary disease) COPD (chronic obstructive pulmonary disease) COPD exacerbation COPD exacerbation Diabetes (~06/2020) Encounter for screening for malignant neoplasm of lung in current smoker with 30 pack year history or greater Family history of asthma Family history of asthma Fatigue HHD (hypertensive heart disease) History of 2019 novel coronavirus disease (COVID-19) History of 2019 novel coronavirus disease (COVID-19) History of asthma History of asthma Hyperlipemia On statin therapy PAF (paroxysmal atrial fibrillation) Pneumonia Stopped smoking with greater than 30 pack year history Stopped smoking with greater than 30 pack year history Surgical History History of arthroplasty of right knee History of cholecystectomy History of tonsillectomy Hx of cholecystectomy Hx of tonsillectomy Family History Diabetes Coronary artery disease Hyperlipidemia Cancer Hypertension Social History Smoking Status: Current every day smoker tobacco type: cigarettes packs per day: 1 smoking status stop date: 09/12/2022 second hand exposure: Yes alcohol intake: never substance use type: denies use current occupational status: retired Travel in the last 8 weeks: None household members: none housing: house marital status: number of children: 0 current occupational exposures/hazards: No caffeine: Yes Review of Systems Constitutional Constitutional: Reports body ache(s) and Reports fatigue Eyes Eyes: Denies eye discharge, Denies dry eyes, Denies irritation and Denies itchy eyes ENT Ears, Nose, Mouth, and Throat: Denies epistaxis, Denies facial pain, Denies lip swelling and Denies throat swelling *Cardiovascular Cardiovascular: Reports dyspnea, Reports dyspnea on exertion, Reports leg edema and Reports orthopnea *Respiratory Respiratory: Reports chest congestion, Reports cough, Reports dyspnea, Reports dyspnea on exertion, Reports excessive phlegm production and Reports wheezing *Gastrointestinal Gastrointestinal: Denies abdominal pain, Denies belching and Denies cramping *Musculoskeletal Musculoskeletal: Reports back pain, Reports myalgias and Reports other (No small joint swelling or Pain) *Neurologic Neurologic: Reports system reviewed and no additional complaints, except as documented Psychiatric Psychiatric: Denies homicidal ideation and Denies suicidal ideation Endocrine Endocrine: Reports fatigue and Denies heat intolerance Hematologic/Lymphatic Hematologic/Lymphatic: Denies easy bleeding and Denies lymphadenopathy Allergic/Immunologic Allergic/Immunologic: Denies itchy eyes, Denies lip swelling, Denies throat swelling and Reports wheezing Pulmonology Exam Inpatient Vital signs and Labs for Last 24 Hours: Temp Pulse Resp BP Pulse Ox 98.3 F 84 18 117/61 92 L 12/12/22 07:33 12/12/22 09:31 12/12/22 09:13 12/12/22 07:33 12/12/22 07:33 Laboratory Results - last 24 hr 12/11/22 09:43: SARS-CoV-2 (PCR) Not detected, Influenza A Untype (PCR) Not detected, Influenza Type B (PCR) Not detected 12/11/22
--- NOTE | 2022-12-12 10:53 | HMH.PTEV ---
Physical Therapy Evaluation Rehab PT IP Evaluation Start: 12/12/22 10:14 Freq: ONCE Status: Active Protocol: Document 12/12/22 10:50 ASHLEE (Rec: 12/12/22 10:53 [email or web address] [id number]) Subjective/History History History 67 yowf adm to [facility] with COPD and hypoxia. She has long hx of breathing difficulty. She reports she lives alone, 1 step to enter her apt, and she is generally independent with all mobility without AD. Subjective Subjective Pt states that she does not want to return home with oxygen. Currently she is on 2 L/min O2 via [place]. Rehab PT IP Eval Objective Appearance Patient Behavior Appropriate Patient Orientation Person,Place,Time Difficulty following instructions none Speech Pattern Clear Ambulation Patient Able to Ambulate Yes Balance Ability to Arise Able, uses arms to help Sitting Balance Steady, safe Standing Balance Steady, wide stance Dynamic Sitting Balance Ability Good Dynamic Standing Balance Ability Good Transfers Bed Transfer Ability Independent Chair Transfer Ability Independent Sit to Stand Bed Transfer Ability Independent Sit to Stand Chair Transfer Ability Independent ROM All Extremities PT ROM Status WFL MMT All Extremities PT MMT WFL Rehab PT IP prob,goals,plan Problems Date of Evaluation: 12/12/22 Discharge Plan PT Discharge Plan Pt currently presents at baseline for all mobility and is appropriate to return home once medically stable. She would likely benefit from home health therapy if she is agreeable. G -code Required No Eval Complexity Eval Charge Codes 63045 - Moderate Complexity PHYSICIAN CERTIFICATION: I certify the specified therapy services for Yaritza Stallings are required, authorized, and reviewed every 30 days.
--- NOTE | 2022-12-12 11:39 | HMH.OTEV ---
OT Inpatient Evaluation Rehab OT IP Evaluation Start: 12/12/22 10:14 Freq: ONCE Status: Active Protocol: Document 12/12/22 11:35 [facility] (Rec: 12/12/22 11:39 [facility] [id number]) Rehab OT IP Assessment Subjective History Pt oriented x 4 on arrival. Pt agreeable to engage in therapy evaluation. Pt admitted on 12/11/22 due to COPD exacerbation. Prior to being in the hosptial, pt lived at home alone. Pt reports she was independent with all ADLs and IADLs. Pt did not use a walker or cane during functional mobility tasks. She no longer drives, her sister in law takes her grocery shopping. Pt has a past medical history of: Acute respiratory failure with hypoxia Allergic rhinitis Allergic rhinitis, unspecified Asthma CAD (coronary artery disease) Cardiac pacemaker in situ COPD (chronic obstructive pulmonary disease) COPD (chronic obstructive pulmonary disease) COPD exacerbation COPD exacerbation Diabetes (~06/2020) Encounter for screening for malignant neoplasm of lung in current smoker with 30 pack year history or greater Family history of asthma Family history of asthma Fatigue HHD (hypertensive heart disease) History of 2019 novel coronavirus disease (COVID-19) History of 2019 novel coronavirus disease (COVID-19) History of asthma History of asthma Hyperlipemia On statin therapy PAF (paroxysmal atrial fibrillation)
[2022-12-12 11:58] LABS: POC Glucose,Bedside 332 (70-110)
[2022-12-13] VITALS (11 sets, daily range): BP systolic 115–145; BP diastolic 65–68; PULSE 64–86; RESP 16–22; TEMP 36.6–36.7; O2SAT 88–96; BMI 34.7
[2022-12-13 05:34] LABS: POC Glucose,Bedside 354 (70-110)
[2022-12-13 05:34] LABS: POC Glucose,Bedside 433 (70-110)
[2022-12-13 06:52] LABS: Basophils % 0.1 % (0.1-2.0); Hematocrit 35.5 % (37.0-47.0); Hemoglobin 11.1 g/dL (12.2-16.2); Lymphocytes # 1.1 K/mm3 (0.7-4.5); Lymphocytes % 5.2 % (10-50); Mean Corpuscular HGB Conc 31.1 g/dL (31.8-35.4); Mean Corpuscular Hemoglobin 27.4 pg (27.0-31.2); Mean Corpuscular Volume 88.2 fl (81-99); Mean Platelet Volume 10.2 fl (7.4-10.4); Monocytes # 0.6 K/mm3 (0.1-1.0); Monocytes % 3.1 % (1.7-9.3); Neutrophils # 18.8 K/mm3 (1.8-7.8); Neutrophils % 91.6 % (37.0-80.0); Platelet Count 258 K/mm3 (142-424); Red Blood Count 4.03 M/mm3 (4.20-5.40); Red Cell Distribution Width 16.3 % (11.5-17.5); White Blood Count 20.5 K/mm3 (4.8-10.8)
[2022-12-13 06:53] LABS: Anion Gap 15.2 mEq/L (5-15); Blood Urea Nitrogen 40 mg/dl (7-17); Calcium 8.6 mg/dl (8.4-10.2); Carbon Dioxide 25 mmol/L (22.0-30.0); Chloride 98 mmol/L (98-107); Creatinine Clearance Estimated 81 mL/min (50-200); Estimated Glomerular Filt Rate 49 ml/min (>60); GFR (African American) 60 ML/MIN (>60); Glucose 342 mg/dl (74-100); Magnesium 1.8 mg/dl (1.6-2.3); Potassium 5.2 mmoL/L (3.5-5.1); Sodium 133 mmol/L (136-145)
[2022-12-13 06:57] LABS: MANUAL DIFFERENTIAL MANUAL DIFFERENTIAL (MANUAL DIFF)
[2022-12-13 07:52] LABS: Lymphocytes % 4 % (10-50); Monocytes % 2 % (2-9); Neutrophils % 94 % (42-76); Platelet Estimate Normal; RBC Morphology Normal; Total Cells Counted 100
--- NOTE | 2022-12-13 09:05 | PC.NURSE ---
RA sat 88% at rest
--- NOTE | 2022-12-13 09:40 | EXP.PULM.PN ---
Subjective *Date: 12/13/22 *Time: 10:41 Interval history: No acute respiratory vents overnight. Patient admits minimal improvement in her respiratory symptoms. Pulmonology Exam Inpatient Vital signs and Labs for Last 24 Hours: Temp Pulse Resp BP Pulse Ox FiO2 97.8 F 72 21 145/67 H 91 L 28 12/13/22 07:58 12/13/22 07:58 12/13/22 07:58 12/13/22 07:58 12/13/22 07:58 12/12/22 18:52 Laboratory Results - last 24 hr 12/12/22 11:51: POC Glucose 332 H* 12/12/22 20:25: POC Glucose 433 H* 12/13/22 05:15: POC Glucose 354 H* 12/13/22 05:55: WBC 20.5 H*, RBC 4.03 L, Hgb 11.1 L, Hct 35.5 L, MCV 88.2, MCH 27.4, MCHC 31.1 L, RDW 16.3, Plt Count 258, MPV 10.2, Neut % (Auto) 91.6 H, Lymph % (Auto) 5.2 L, [place] % (Auto) 3.1, Eos % (Auto) 0.0 L, Baso % (Auto) 0.1, Neut # (Auto) 18.8 H, Lymph # (Auto) 1.1, [place] # (Auto) 0.6, Eos # (Auto) 0.0, Baso # (Auto) 0.0, Total Counted 100, Neutrophils % (Manual) 94 H, Lymphocytes % (Manual) 4 L, Monocytes % (Manual) 2, Platelet Estimate Normal, RBC Morphology Normal 12/13/22 05:55: Sodium 133 L, Potassium 5.2 H, Chloride 98, Carbon Dioxide 25, Anion Gap 15.2 H, BUN 40 H D, Creatinine 1.10 H D, Estimated Creat Clear 81, Estimated GFR 49 L, Est GFR ( Amer) 60, Glucose 342 H, Calcium 8.6, Magnesium 1.8 I & O for Labs for Last 24 Hours: Intake & Output 12/10/22 12/11/22 12/12/22 12/13/22 23:59 23:59 23:59 23:59 Intake Total 960 / 1210 1930 / 1930 480 / 480 Output Total 200 / 200 1000 / 1000 0 / 0 Balance 760 / 1010 930 / 930 480 / 480 Weight 225 lb 8 oz 229 lb 4.492 oz 234 lb 9 oz Microbiology Reports for the Last 24 Hours: Microbiology 12/11/22 09:05 Sputum - Expectorated Sputum Gram Stain - Final 12/11/22 09:05 Sputum - Expectorated Sputum Sputum Culture - Preliminary 12/11/22 09:22 Blood Blood Culture - Preliminary NO GROWTH AFTER 48 HOURS 12/11/22 09:08 Blood Blood Culture - Preliminary NO GROWTH AFTER 48 HOURS Constitutional: Present moderate distress Head: Present normocephalic and atraumatic ENT: Present normal exam, normal oropharynx and mucous membranes moist Neck: Present normal inspection and full ROM Respiratory: Present prolonged expiratory phase, respiratory distress, rhonchi, wheezes, diminished air movement and able to speak in complete sentences; Absent accessory muscle use Cardiac: Present S1/S2, Tachycardia and radial pulses present GI: Present soft and distention; Absent tenderness or guarding Rectal (female): Present deferred (female): Present deferred Skin: Present intact; Absent cyanosis or jaundice Neuro: Present alert, awake and oriented x 3 Extremities: Present normal inspection; Absent clubbing or cyanosis Psychiatric: Present normal affect and cooperative Assessment and Plan *Assessment and plan (1) Acute exacerbation of chronic obstructive pulmonary disease: Status: Acute Category: Medical Code(s): J44.1 - Chronic obstructive pulmonary disease with (acute) exacerbation (2) Acute respiratory failure with hypoxia: Status: Acute Category: Medical Code(s): J96.01 - Acute respiratory failure with hypoxia Plan Ms. Stallings is 67-year-old female greater than 78-elhd-rbts smoking history prior diagnosis of COPD recent hospital admissions for COPD COPD exacerbation, stenotrophomonas pneumonia status post Bactrim for 14 days presented to the hospital again today with worsening respiratory distress along with wheezing and productive phlegm. She does not use any oxygen at baseline, room air saturation 94% during her most recent clinic visit. She admits compliance with his inhalers. Her most recent admission during September was likely from enterorhinovirus. She also was diagnosed with COVID-19 pneumonia in June 2022 Neutrophilic leukocytosis upon admission. VBG upon admission did not show any evidence of hypoxic/hypercarbic respiratory failure Chest x-ra
--- NOTE | 2022-12-13 09:45 | XR_ITS ---
FINAL REPORT CLINICAL HISTORY: Hypoxia COMPARISON: 12/11/2022 FINDINGS: A single portable view of the chest was obtained. Left subclavian pacer is noted. There is mild pulmonary vascular congestion. The heart size is within normal limits. The mediastinum is within normal limits. There is bronchial wall thickening consistent with bronchitis. The bony thorax is intact. IMPRESSION: Bronchitis. Reviewed, Interpreted and Dictated by Vickey Christianson III, MD Transcribed by Sydni Cervantes Authenticated and [facility]
--- NOTE | 2022-12-13 09:48 | PC.NURSE ---
courtesy tech cici: pt is lying in bed after having a bath. call light is within reach and coffee was given. no more requests at this time.
--- NOTE | 2022-12-13 11:03 | SW/DCPLANNER ---
Addendum entered by Marine Ross RN 12/15/22 14:52: Faxed packet to [facility], plan is for services to start on Sunday unless we hear from [place] with [facility]. Addendum entered by Mirna Ledesma 12/15/22 10:13: The plan for this patient is to discharge today. I will fax information to [facility]. Original Note: I spoke with this patient regarding plans once medically stable for discharge. PT/OT evaluated patient and recommended home health services. Patient is agreeable to home health w/ [facility]. I will set up home health services once medically stable for discharge. Patient may discharge later today or tomorrow.
[2022-12-13 12:09] LABS: POC Glucose,Bedside 432 (70-110)
--- NOTE | 2022-12-13 14:31 | EXP.ACUTE.PN ---
Subjective *Date: 12/13/22 *Time: 17:39 Interval history: Patient states she is feeling little bit better this morning. Still quite wheezy on exam. Stable on 2 L nasal cannula oxygen with sats in the low 90s. Denies nausea, vomiting, chest pain, confusion. Still having significant cough. Afebrile and hemodynamically stable Medical Exam Vital signs and Labs for Last 24 Hours: Vital Signs Temp Pulse Pulse Resp BP Pulse Ox FiO2 12/13/22 13:17 78 20 12/13/22 13:17 78 12/13/22 13:17 78 12/13/22 10:26 88 L 12/13/22 09:50 86 12/13/22 09:50 84 12/13/22 07:58 97.8 F 72 21 145/67 H 91 L 12/13/22 06:04 70 12/13/22 06:04 74 12/13/22 06:04 90 L 12/13/22 04:00 98.1 F 75 22 115/65 12/12/22 20:00 98.1 F 70 18 126/54 L 92 L 12/12/22 23:10 73 12/12/22 23:00 71 12/12/22 18:52 28 12/12/22 18:52 78 12/12/22 18:51 73 12/12/22 16:00 98.9 F 80 21 114/52 L 95 Intake and Output 12/12/22 12/13/22 12/13/22 23:59 07:59 15:59 Intake Total 720 / 1930 720 / 720 Output Total 400 / 1000 0 / 400 400 / 400 Balance 320 / 930 0 / 320 320 / 320 Intake: Intake, Oral Amount 720 / 1680 720 / 720 Output: Output, Urine Amount 400 / 1000 0 / 400 400 / 400 Other: Number of Unmeasured Voids 0 0 1 Weight 106.396 kg Patient Weight 12/13/22 23:59 Weight 106.396 kg Laboratory Results - last 24 hr 12/12/22 20:25: POC Glucose 433 H* 12/13/22 05:15: POC Glucose 354 H* 12/13/22 05:55: WBC 20.5 H*, RBC 4.03 L, Hgb 11.1 L, Hct 35.5 L, MCV 88.2, MCH 27.4, MCHC 31.1 L, RDW 16.3, Plt Count 258, MPV 10.2, Neut % (Auto) 91.6 H, Lymph % (Auto) 5.2 L, [place] % (Auto) 3.1, Eos % (Auto) 0.0 L, Baso % (Auto) 0.1, Neut # (Auto) 18.8 H, Lymph # (Auto) 1.1, [place] # (Auto) 0.6, Eos # (Auto) 0.0, Baso # (Auto) 0.0, Total Counted 100, Neutrophils % (Manual) 94 H, Lymphocytes % (Manual) 4 L, Monocytes % (Manual) 2, Platelet Estimate Normal, RBC Morphology Normal 12/13/22 05:55: Sodium 133 L, Potassium 5.2 H, Chloride 98, Carbon Dioxide 25, Anion Gap 15.2 H, BUN 40 H D, Creatinine 1.10 H D, Estimated Creat Clear 81, Estimated GFR 49 L, Est GFR ( Amer) 60, Glucose 342 H, Calcium 8.6, Magnesium 1.8 12/13/22 11:28: POC Glucose 432 H* I & O for Labs for Last 24 Hours: Intake & Output 12/10/22 12/11/22 12/12/22 12/13/22 23:59 23:59 23:59 23:59 Intake Total 960 / 1210 1930 / 1930 720 / 720 Output Total 200 / 200 1000 / 1000 400 / 400 Balance 760 / 1010 930 / 930 320 / 320 Weight 102.285 kg 104 kg 106.396 kg Microbiology Reports for the Last 24 Hours: Microbiology 12/11/22 09:05 Sputum - Expectorated Sputum Gram Stain - Final 12/11/22 09:05 Sputum - Expectorated Sputum Sputum Culture - Preliminary 12/11/22 09:22 Blood Blood Culture - Preliminary NO GROWTH AFTER 48 HOURS 12/11/22 09:08 Blood Blood Culture - Preliminary NO GROWTH AFTER 48 HOURS Constitutional: Present mild distress, obese and chronically ill appearing Head: Present atraumatic and normocephalic ENT: Present normal exam Neck: Present normal inspection Respiratory: Present accessory muscle use, prolonged expiratory phase and wheezes; Absent rhonchi or crackles Cardiac: Present Reg Rate and Rhythm GI: Present soft and normal bowel sounds; Absent distention or tenderness Extremities: Present normal inspection and full ROM Skin: Present intact; Absent erythema Neuro: Present Grossly Intact, alert, awake, oriented x 3 and moves all extremities Assessment and Plan *Assessment and plan (1) COPD exacerbation: Status: Chronic Category: Medical Code(s): J44.1 - Chronic obstructive pulmonary disease with (acute) exacerbation (2) Atrial fibrillation: Status: Acute Category: Medical Code(s): I48.91 - Unspecified atrial fibrillation (3) Di
[2022-12-13 17:38] LABS: POC Glucose,Bedside 442 (70-110)
--- NOTE | 2022-12-13 21:42 | PC.NURSE ---
CALLED ALICE VICENTE ABOUT PT'S PAIN MEDICATION. ALICE STATED TO GIVE ANOTHER PERCOCET NOW.
[2022-12-13 22:09] LABS: POC Glucose,Bedside 432 (70-110)
[2022-12-14] VITALS (10 sets, daily range): BP systolic 131–160; BP diastolic 57–68; PULSE 70–86; RESP 17–20; TEMP 36.7–36.8; O2SAT 92–98; BMI 34.2
--- NOTE | 2022-12-14 03:14 | PC.NURSE ---
RESPIRATORY NOTE: OBTAINED SPUTUM AND SENT TO LAB @ 2208
[2022-12-14 06:13] LABS: POC Glucose,Bedside 303 (70-110)
--- NOTE | 2022-12-14 06:54 | PC.NURSE ---
NO ACUTE CHANGES. REMAINS ON 2L AND IS TOLERATING ELL BUT DOES DESAT SIGNIFICANTLY WITH AMBULATION. HAS BEEN MEDICATED FOR PAIN X1 THIS SHIFT. HAS C/O A COUGH. VSS. CALL LONG WITHIN REACH.
--- NOTE | 2022-12-14 09:46 | EXP.PULM.PN ---
Subjective *Date: 12/14/22 *Time: 10:59 Interval history: Patient admits worsening respiratory symptoms. Pulmonology Exam Inpatient Vital signs and Labs for Last 24 Hours: Temp Pulse Resp BP Pulse Ox FiO2 98.1 F 84 20 148/68 H 95 28 12/14/22 08:00 12/14/22 09:23 12/14/22 08:00 12/14/22 08:00 12/14/22 08:00 12/12/22 18:52 Laboratory Results - last 24 hr 12/13/22 11:28: POC Glucose 432 H* 12/13/22 16:46: POC Glucose 442 H* 12/13/22 20:46: POC Glucose 432 H* 12/14/22 05:48: POC Glucose 303 H* I & O for Labs for Last 24 Hours: Intake & Output 12/11/22 12/12/22 12/13/22 12/14/22 23:59 23:59 23:59 23:59 Intake Total 960 / 1210 1930 / 1930 1200 / 1200 480 / 480 Output Total 200 / 200 1000 / 1000 401 / 401 300 / 300 Balance 760 / 1010 930 / 930 799 / 799 180 / 180 Weight 225 lb 8 oz 229 lb 4.492 oz 234 lb 9 oz 231 lb 8 oz Microbiology Reports for the Last 24 Hours: Microbiology 12/11/22 09:05 Sputum - Expectorated Sputum Gram Stain - Final 12/11/22 09:05 Sputum - Expectorated Sputum Sputum Culture - Preliminary Gram Negative Rods Gram Negative Rods#2 12/11/22 09:22 Blood Blood Culture - Preliminary NO GROWTH AFTER 48 HOURS 12/11/22 09:08 Blood Blood Culture - Preliminary NO GROWTH AFTER 48 HOURS Constitutional: Present moderate distress Head: Present normocephalic and atraumatic ENT: Present normal exam, normal oropharynx and mucous membranes moist Neck: Present normal inspection and full ROM Respiratory: Present prolonged expiratory phase, respiratory distress, rhonchi, wheezes, diminished air movement and able to speak in complete sentences; Absent accessory muscle use Cardiac: Present S1/S2, Tachycardia and radial pulses present GI: Present soft and distention; Absent tenderness or guarding Rectal (female): Present deferred (female): Present deferred Skin: Present intact; Absent cyanosis or jaundice Neuro: Present alert, awake and oriented x 3 Extremities: Present normal inspection; Absent clubbing or cyanosis Psychiatric: Present normal affect and cooperative Assessment and Plan *Assessment and plan (1) Acute exacerbation of chronic obstructive pulmonary disease: Status: Acute Category: Medical Code(s): J44.1 - Chronic obstructive pulmonary disease with (acute) exacerbation (2) Acute respiratory failure with hypoxia: Status: Acute Category: Medical Code(s): J96.01 - Acute respiratory failure with hypoxia Plan Ms. Stallings is 67-year-old female greater than 45-gwtt-ceup smoking history prior diagnosis of COPD recent hospital admissions for COPD COPD exacerbation, stenotrophomonas pneumonia status post Bactrim for 14 days presented to the hospital again today with worsening respiratory distress along with wheezing and productive phlegm. She does not use any oxygen at baseline, room air saturation 94% during her most recent clinic visit. She admits compliance with his inhalers. Her most recent admission during September was likely from enterorhinovirus. She also was diagnosed with COVID-19 pneumonia in June 2022 Neutrophilic leukocytosis upon admission. VBG upon admission did not show any evidence of hypoxic/hypercarbic respiratory failure Chest x-ray no acute pulmonary infiltrates. Bronchial thickening noted. Patient has been initiated on doxycycline in the ER, changed to Bactrim along with continuation of steroids. Afebrile. Hemodynamically stable. Auscultation bilateral diffuse wheezing. On 2 L nasal oxygen supplementation satting 92%. Not using any oxygen at baseline. Etiology of this patient's current respiratory failure is likely from her COPD exacerbation. Comprehensive respiratory viral PCR panel negative. Interval update: No acute respiratory vents overnight. Patient continued to receive cefepime and Bactrim. Afebrile. Hemo
[2022-12-14 11:00] LABS: Basophils # 0.1 K/mm3 (0-0.2); Basophils % 0.2 % (0.1-2.0); Eosinophils % 0.1 % (0.1-12.0); Hematocrit 38.5 % (37.0-47.0); Lymphocytes # 2.7 K/mm3 (0.7-4.5); Lymphocytes % 12.6 % (10-50); Mean Corpuscular HGB Conc 31.2 g/dL (31.8-35.4); Mean Corpuscular Volume 86.4 fl (81-99); Mean Platelet Volume 9.8 fl (7.4-10.4); Monocytes # 1.4 K/mm3 (0.1-1.0); Monocytes % 6.4 % (1.7-9.3); Neutrophils # 17.1 K/mm3 (1.8-7.8); Neutrophils % 80.7 % (37.0-80.0); Platelet Count 332 K/mm3 (142-424); Red Blood Count 4.46 M/mm3 (4.20-5.40); Red Cell Distribution Width 16.2 % (11.5-17.5); White Blood Count 21.2 K/mm3 (4.8-10.8)
[2022-12-14 11:05] LABS: Alanine Aminotransferase 40 U/L (12-78); Albumin/Globulin Ratio 1.7 (1.1-1.8); Alkaline Phosphatase 120 U/L (38-126); Anion Gap 15.1 mEq/L (5-15); Aspartate Amino Transferase 31 U/L (14-36); Bilirubin,Total 0.2 mg/dl (0.2-1.3); Blood Urea Nitrogen 38 mg/dl (7-17); Carbon Dioxide 27 mmol/L (22.0-30.0); Chloride 98 mmol/L (98-107); Creatinine Clearance Estimated 73 mL/min (50-200); Estimated Glomerular Filt Rate 45 ml/min (>60); GFR (African American) 54 ML/MIN (>60); Globulin 2.4 g/dL (1.3-3.2); Glucose 221 mg/dl (74-100); Magnesium 1.8 mg/dl (1.6-2.3); Potassium 4.1 mmoL/L (3.5-5.1); Sodium 136 mmol/L (136-145); Total Protein,Serum 6.4 g/dl (6.3-8.2)
[2022-12-14 11:06] LABS: MANUAL DIFFERENTIAL MANUAL DIFFERENTIAL (MANUAL DIFF)
[2022-12-14 11:57] LABS: Lymphocytes % 12 % (10-50); Monocytes % 4 % (2-9); Neutrophils % 84 % (42-76); Platelet Estimate Normal; RBC Morphology Normal; Total Cells Counted 100
[2022-12-14 12:57] LABS: POC Glucose,Bedside 234 (70-110)
--- NOTE | 2022-12-14 13:44 | EXP.ACUTE.PN ---
Subjective *Date: 12/14/22 *Time: 13:44 Interval history: Patient remains afebrile and hemodynamically stable. Has rapid desaturation with movement but otherwise stable on 2 L at rest. Continuing with percussion and breathing treatments. Lungs sound about the same today as yesterday. Labs reviewed, white cell count still elevated. Tolerating p.o. intake. Medical Exam Vital signs and Labs for Last 24 Hours: Vital Signs Temp Pulse Pulse Resp BP Pulse Ox 12/14/22 09:23 84 12/14/22 09:23 82 12/14/22 08:00 98.1 F 72 20 148/68 H 95 12/14/22 06:00 70 12/14/22 06:00 71 12/14/22 06:00 98 12/14/22 04:00 98.1 F 70 18 160/63 H 94 L 12/14/22 01:31 74 12/14/22 01:31 74 12/13/22 20:00 96 12/13/22 21:58 71 12/13/22 21:58 71 12/13/22 20:00 97.9 F 64 16 126/68 96 12/13/22 18:37 71 20 12/13/22 18:35 71 12/13/22 18:35 71 12/13/22 18:35 89 L 12/13/22 16:00 98.1 F 70 21 142/67 H 94 L Intake and Output 12/13/22 12/14/22 12/14/22 23:59 07:59 15:59 Intake Total 480 / 1200 960 / 960 Output Total 1 / 401 300 / 300 0 / 300 Balance 479 / 799 -300 / 660 960 / 660 Intake: Intake, Oral Amount 480 / 1200 960 / 960 Output: Output, Urine Amount 1 / 401 300 / 300 0 / 300 Other: Number of Unmeasured Voids 150 1 Weight 105.007 kg Patient Weight 12/14/22 23:59 Weight 105.007 kg Laboratory Results - last 24 hr 12/13/22 16:46: POC Glucose 442 H* 12/13/22 20:46: POC Glucose 432 H* 12/14/22 05:48: POC Glucose 303 H* 12/14/22 10:40: WBC 21.2 H*, RBC 4.46, Hgb 12.0 L, Hct 38.5, MCV 86.4, MCH 27.0, MCHC 31.2 L, RDW 16.2, Plt Count 332 D, MPV 9.8, Neut % (Auto) 80.7 H, Lymph % (Auto) 12.6, [place] % (Auto) 6.4, Eos % (Auto) 0.1, Baso % (Auto) 0.2, Neut # (Auto) 17.1 H, Lymph # (Auto) 2.7, [place] # (Auto) 1.4 H, Eos # (Auto) 0.0, Baso # (Auto) 0.1, Total Counted 100, Neutrophils % (Manual) 84 H, Lymphocytes % (Manual) 12, Monocytes % (Manual) 4, Platelet Estimate Normal, RBC Morphology Normal 12/14/22 10:40: Sodium 136, Potassium 4.1 D, Chloride 98, Carbon Dioxide 27, Anion Gap 15.1 H, BUN 38 H, Creatinine 1.20 H, Estimated Creat Clear 73, Estimated GFR 45 L, Est GFR ( Amer) 54 L, Glucose 221 H, Calcium 9.0, Magnesium 1.8, Total Bilirubin 0.2, AST 31, ALT 40, Alkaline Phosphatase 120, Total Protein 6.4, Albumin 4.0, Globulin 2.4, Albumin/Globulin Ratio 1.7 12/14/22 11:32: POC Glucose 234 H I & O for Labs for Last 24 Hours: Intake & Output 12/11/22 12/12/22 12/13/22 12/14/22 23:59 23:59 23:59 23:59 Intake Total 960 / 1210 1930 / 1930 1200 / 1200 960 / 960 Output Total 200 / 200 1000 / 1000 401 / 401 300 / 300 Balance 760 / 1010 930 / 930 799 / 799 660 / 660 Weight 102.285 kg 104 kg 106.396 kg 105.007 kg Microbiology Reports for the Last 24 Hours: Microbiology 12/13/22 22:00 Sputum - Expectorated Sputum Gram Stain - Final 12/11/22 09:05 Sputum - Expectorated Sputum Gram Stain - Final 12/11/22 09:05 Sputum - Expectorated Sputum Sputum Culture - Preliminary Gram Negative Rods Gram Negative Rods#2 Constitutional: Present mild distress, obese and chronically ill appearing Head: Present atraumatic and normocephalic ENT: Present normal exam Neck: Present normal inspection Respiratory: Present accessory muscle use, prolonged expiratory phase and wheezes; Absent rhonchi or crackles Cardiac: Present Reg Rate and Rhythm GI: Present soft and normal bowel sounds; Absent distention or tenderness Extremities: Present normal inspection and full ROM Skin: Present intact; Absent erythema Neuro: Present Grossly Intact, alert, awake, oriented x 3 and moves all extremities Assessment and Plan *Assessment and plan (1) COPD exacerbation: Status: Chronic Category: Medical Code(s): J44.1 - Chronic obstructive pulmonary disease
[2022-12-14 16:25] LABS: POC Glucose,Bedside 284 (70-110)
[2022-12-14 20:53] LABS: POC Glucose,Bedside 405 (70-110)
[2022-12-15] VITALS (7 sets, daily range): BP systolic 130–145; BP diastolic 58–73; PULSE 70–84; RESP 18–22; TEMP 36.7; O2SAT 84–96; BMI 34.9
--- NOTE | 2022-12-15 04:30 | PC.NURSE ---
pt has rested intermittantly this shift. a&o. pt voiding well per BSC. pt up with standby assist. VSS, 2LNC in place. audible wheezing noted, breathing treatments given per SEP. pt c/o leg cramps and back pain, medicated per SEP. pt stable.
[2022-12-15 06:06] LABS: Basophils % 0.4 % (0.1-2.0); Eosinophils % 0.4 % (0.1-12.0); Hemoglobin 11.2 g/dL (12.2-16.2); Lymphocytes # 2.4 K/mm3 (0.7-4.5); Lymphocytes % 22.3 % (10-50); Mean Corpuscular Hemoglobin 27.5 pg (27.0-31.2); Mean Corpuscular Volume 86.1 fl (81-99); Mean Platelet Volume 9.3 fl (7.4-10.4); Monocytes # 0.8 K/mm3 (0.1-1.0); Monocytes % 7.7 % (1.7-9.3); Neutrophils # 7.3 K/mm3 (1.8-7.8); Neutrophils % 69.2 % (37.0-80.0); Platelet Count 201 K/mm3 (142-424); Red Blood Count 4.07 M/mm3 (4.20-5.40); White Blood Count 10.6 K/mm3 (4.8-10.8)
[2022-12-15 06:23] LABS: Alanine Aminotransferase 30 U/L (12-78); Albumin Level 3.1 g/dl (3.5-5.0); Albumin/Globulin Ratio 1.5 (1.1-1.8); Alkaline Phosphatase 116 U/L (38-126); Anion Gap 15.4 mEq/L (5-15); Aspartate Amino Transferase 48 U/L (14-36); Bilirubin,Total 0.4 mg/dl (0.2-1.3); Blood Urea Nitrogen 35 mg/dl (7-17); Calcium 8.4 mg/dl (8.4-10.2); Carbon Dioxide 24 mmol/L (22.0-30.0); Chloride 100 mmol/L (98-107); Creatinine Clearance Estimated 82 mL/min (50-200); Estimated Glomerular Filt Rate 49 ml/min (>60); GFR (African American) 60 ML/MIN (>60); Globulin 2.1 g/dL (1.3-3.2); Glucose 212 mg/dl (74-100); Magnesium 1.8 mg/dl (1.6-2.3); Potassium 4.4 mmoL/L (3.5-5.1); Sodium 135 mmol/L (136-145); Total Protein,Serum 5.2 g/dl (6.3-8.2)
[2022-12-15 06:31] LABS: POC Glucose,Bedside 236 (70-110)
--- NOTE | 2022-12-15 07:35 | EXP.PHA.PN ---
Subjective *Date: 12/15/22 *Time: 07:35 Medical Exam Vital signs and Labs for Last 24 Hours: Vital Signs Temp Pulse Pulse Resp BP Pulse Ox 12/15/22 06:32 73 12/15/22 06:32 79 12/15/22 06:32 95 12/15/22 04:00 98.0 F 70 18 130/58 L 91 L 12/15/22 01:42 72 12/15/22 01:42 75 12/14/22 22:04 71 12/14/22 22:04 72 12/14/22 20:00 98.3 F 70 17 131/57 L 93 L 12/14/22 18:21 92 L 12/14/22 18:21 78 12/14/22 18:21 72 12/14/22 15:50 98.1 F 71 19 133/63 92 L 12/14/22 14:14 86 12/14/22 14:14 82 12/14/22 09:23 84 12/14/22 09:23 82 12/14/22 08:00 98.1 F 72 20 148/68 H 95 Intake and Output 12/14/22 12/14/22 12/15/22 15:59 23:59 07:59 Intake Total 960 / 1440 480 / 1440 250 / 250 Output Total 0 / 700 400 / 700 500 / 500 Balance 960 / 740 80 / 740 -250 / -250 Intake: Intake, Oral Amount 960 / 1440 480 / 1440 Intake, Other Amount 50 / 50 Intake, Total IV Amount 200 / 200 Cefepime HCl 2 gm In 0.9 % 200 / 200 Sodium Chloride 100 ml @ 200 mls/hr IV Q8H [facility] Rx#:[id number] Output: Output, Urine Amount 0 / 700 400 / 700 500 / 500 Other: Intake, Other Source Saline Solution Number of Unmeasured Voids 1 1 Weight 107.093 kg Patient Weight 12/15/22 23:59 Weight 107.093 kg Laboratory Results - last 24 hr 12/14/22 10:40: WBC 21.2 H*, RBC 4.46, Hgb 12.0 L, Hct 38.5, MCV 86.4, MCH 27.0, MCHC 31.2 L, RDW 16.2, Plt Count 332 D, MPV 9.8, Neut % (Auto) 80.7 H, Lymph % (Auto) 12.6, Bibb % (Auto) 6.4, Eos % (Auto) 0.1, Baso % (Auto) 0.2, Neut # (Auto) 17.1 H, Lymph # (Auto) 2.7, Bibb # (Auto) 1.4 H, Eos # (Auto) 0.0, Baso # (Auto) 0.1, Total Counted 100, Neutrophils % (Manual) 84 H, Lymphocytes % (Manual) 12, Monocytes % (Manual) 4, Platelet Estimate Normal, RBC Morphology Normal 12/14/22 10:40: Sodium 136, Potassium 4.1 D, Chloride 98, Carbon Dioxide 27, Anion Gap 15.1 H, BUN 38 H, Creatinine 1.20 H, Estimated Creat Clear 73, Estimated GFR 45 L, Est GFR ( Amer) 54 L, Glucose 221 H, Calcium 9.0, Magnesium 1.8, Total Bilirubin 0.2, AST 31, ALT 40, Alkaline Phosphatase 120, Total Protein 6.4, Albumin 4.0, Globulin 2.4, Albumin/Globulin Ratio 1.7 12/14/22 11:32: POC Glucose 234 H 12/14/22 16:12: POC Glucose 284 H 12/14/22 20:21: POC Glucose 405 H* 12/15/22 05:53: WBC 10.6 D, RBC 4.07 L, Hgb 11.2 L, Hct 35.0 L, MCV 86.1, MCH 27.5, MCHC 32.0, RDW 16.0, Plt Count 201 D, MPV 9.3, Neut % (Auto) 69.2, Lymph % (Auto) 22.3, Bibb % (Auto) 7.7, Eos % (Auto) 0.4, Baso % (Auto) 0.4, Neut # (Auto) 7.3, Lymph # (Auto) 2.4, Bibb # (Auto) 0.8, Eos # (Auto) 0.0, Baso # (Auto) 0.0 12/15/22 05:53: Sodium 135 L, Potassium 4.4, Chloride 100, Carbon Dioxide 24, Anion Gap 15.4 H, BUN 35 H, Creatinine 1.10 H, Estimated Creat Clear 82, Estimated GFR 49 L, Est GFR ( Amer) 60, Glucose 212 H, Calcium 8.4, Magnesium 1.8, Total Bilirubin 0.4, AST 48 H D, ALT 30, Alkaline Phosphatase 116, Total Protein 5.2 L, Albumin 3.1 L D, Globulin 2.1, Albumin/Globulin Ratio 1.5 12/15/22 06:24: POC Glucose 236 H I & O for Labs for Last 24 Hours: Intake & Output 12/12/22 12/13/22 12/14/22 12/15/22 23:59 23:59 23:59 23:59 Intake Total 1930 / 1930 1200 / 1200 1440 / 1440 250 / 250 Output Total 1000 / 1000 401 / 401 700 / 700 500 / 500 Balance 930 / 930 799 / 799 740 / 740 -250 / -250 Weight 104 kg 106.396 kg 105.007 kg 107.093 kg Microbiology Reports for the Last 24 Hours: Microbiology 12/11/22 09:05 Sputum - Expectorated Sputum Gram Stain - Final 12/11/22 09:05 Sputum - Expectorated Sputum Sputum Culture - Final Klebsiella pneumoniae Stenotrophomonas maltophilia 12/13/22 22:00 Sputum - Expectorated Sputum Gram Stain - Final The patient's infection will respond to the chosen ABx?: Yes (k.pneumoniae and s. maltophilia in sputum, bactrim alejandro
--- NOTE | 2022-12-15 07:36 | EXP.DC.SUM ---
General Admission date:: 12/11/22 Discharge date: 12/15/22 HPI HPI HPI: Ms. Stallings is a 67-year-old female with a past medical history that is positive for COPD, chronic tobacco use, Atrial Fibrillation on chronic anticoagulation, T2DM and CHF. She presented to the ER due to 2-3 days of progressively worsening cough, shortness of air and wheezing. Was recently admitted 2 months ago for similar occurrence. In the ER her oxygen was noted to be 88% on room air. He is no longer on supplemental oxygen at home as she did not need it after improving from last COPD exacerbation. Found to have significant wheezing. Given her new oxygen requirement, significant wheeze, and difficulty breathing, initiated on steroids and antibiotics. ER consulted medicine for admission. VBG with hypoxia noted. Mild elevation of white cell count of 11,000. Respiratory panel negative. On arrival to the floor, patient appears more ill from her baseline chronic state. Started on doxycycline and methylprednisolone. Denies any chest pain, nausea, vomiting. No confusion. Does report she continues to smoke, down to 3 to 5 cigarettes daily. Reports compliance with home regimen including inhalers Hospital Course Hospital Course Hospital Course: 67-year-old female with past medical history of COPD, chronic tobacco abuse, CHF, DM presents with a 2-3 days of progressive worsening cough, shortness of air and wheezing.? Doing better since admission. Oxygen requirement improving. No respiratory distress today. Wheeze significantly improved. Stable for discharge home. Needs close follow-up with pulmonology. Problems addressed as follows: - Acute Exacerbation of COPD - Acute hypoxemic respiratory failure Admitted for respiratory failure and COPD exacerbation. Started on supplemental oxygen and gradually able to wean to 2 L by day of discharge. Required aggressive therapy with regular nebulizers every 4-6 hours throughout duration of hospitalization. Started on IV steroids and weaned to oral steroids. Pulmonology was consulted, assisted with care. Initially on Bactrim given her history of stenotrophomonas. Broadened to cefepime within first 48 hours of admission. Sputum culture showed Klebsiella and stenotrophomonas. Transition to Levaquin and Bactrim to discharge home. Took several days for improvement in breathing and improvement in air movement with decreased wheeze. Received chest percussion as well during admission. Plan for close follow-up with cardiology to assess for clinical improvement after discharge. Counseled numerous times on the need to stop smoking. Have strong concern for patient's inability to stop smoking. High risk for readmission and representation with similar symptoms. - Atrial Fibrillation: Continue patient's home dose of Cardizem, Bisoprolol, Xarelto - Diabetes: A1C 8.1 on admission. Treated with High-intensity SSI during admission. Increased her basal insulin to 55 units by day of discharge. Continue 55 units nightly. - CHF: No current signs of exacerbation. No peripheral edema, no effusions. continue home Lasix 40 mg daily - Anxiety Disorder: Continue patient's home Valium dose - Tobacco Abuse: Counseled on the need to quit. Denies the need for NRT Stable for DC home. Needs O2 on DC. Follow-up with Pulmonology in 2 weeks. Exam Data for Last 24 hours Vital signs and Labs for Last 24 Hours: Temp Pulse Resp BP Pulse Ox FiO2 98.0 F 73 18 130/58 L 95 28 12/15/22 04:00 12/15/22 06:32 12/15/22 04:00 12/15/22 04:00 12/15/22 06:32 12/12/22 18:52 Laboratory Results - last 24 hr 12/14/22 10:40: WBC 21.2 H*, RBC 4.46, Hgb 12.0 L, Hct 38.5, MCV 86.4, MCH 27.0, MCHC 31.2 L, RDW 16.2, Plt Count 332 D, MPV 9.8, Neut % (Auto) 80.7 H, Lymph % (Auto) 12.6, Edmunds % (Auto) 6.4, Eos % (Auto) 0.1, Baso % (Auto) 0.2, Neut # (Auto) 17.1 H, Lymph # (Auto) 2.7, Edmunds # (Auto) 1.4 H, Eos # (Auto) 0.0, Baso # (Auto) 0.1, Total Counted 10
--- NOTE | 2022-12-15 09:29 | EXP.PULM.PN ---
Subjective *Date: 12/15/22 *Time: 11:54 Interval history: No acute respiratory vents overnight. Patient admits continued improvement in her respiratory symptoms for request to be discharged if she is otherwise stable. Pulmonology Exam Inpatient Vital signs and Labs for Last 24 Hours: Temp Pulse Resp BP Pulse Ox FiO2 98.1 F 70 22 145/73 H 95 28 12/15/22 08:00 12/15/22 08:00 12/15/22 08:00 12/15/22 08:00 12/15/22 08:00 12/12/22 18:52 Laboratory Results - last 24 hr 12/14/22 10:40: WBC 21.2 H*, RBC 4.46, Hgb 12.0 L, Hct 38.5, MCV 86.4, MCH 27.0, MCHC 31.2 L, RDW 16.2, Plt Count 332 D, MPV 9.8, Neut % (Auto) 80.7 H, Lymph % (Auto) 12.6, Howard % (Auto) 6.4, Eos % (Auto) 0.1, Baso % (Auto) 0.2, Neut # (Auto) 17.1 H, Lymph # (Auto) 2.7, Howard # (Auto) 1.4 H, Eos # (Auto) 0.0, Baso # (Auto) 0.1, Total Counted 100, Neutrophils % (Manual) 84 H, Lymphocytes % (Manual) 12, Monocytes % (Manual) 4, Platelet Estimate Normal, RBC Morphology Normal 12/14/22 10:40: Sodium 136, Potassium 4.1 D, Chloride 98, Carbon Dioxide 27, Anion Gap 15.1 H, BUN 38 H, Creatinine 1.20 H, Estimated Creat Clear 73, Estimated GFR 45 L, Est GFR ( Amer) 54 L, Glucose 221 H, Calcium 9.0, Magnesium 1.8, Total Bilirubin 0.2, AST 31, ALT 40, Alkaline Phosphatase 120, Total Protein 6.4, Albumin 4.0, Globulin 2.4, Albumin/Globulin Ratio 1.7 12/14/22 11:32: POC Glucose 234 H 12/14/22 16:12: POC Glucose 284 H 12/14/22 20:21: POC Glucose 405 H* 12/15/22 05:53: WBC 10.6 D, RBC 4.07 L, Hgb 11.2 L, Hct 35.0 L, MCV 86.1, MCH 27.5, MCHC 32.0, RDW 16.0, Plt Count 201 D, MPV 9.3, Neut % (Auto) 69.2, Lymph % (Auto) 22.3, Howard % (Auto) 7.7, Eos % (Auto) 0.4, Baso % (Auto) 0.4, Neut # (Auto) 7.3, Lymph # (Auto) 2.4, Howard # (Auto) 0.8, Eos # (Auto) 0.0, Baso # (Auto) 0.0 12/15/22 05:53: Sodium 135 L, Potassium 4.4, Chloride 100, Carbon Dioxide 24, Anion Gap 15.4 H, BUN 35 H, Creatinine 1.10 H, Estimated Creat Clear 82, Estimated GFR 49 L, Est GFR ( Amer) 60, Glucose 212 H, Calcium 8.4, Magnesium 1.8, Total Bilirubin 0.4, AST 48 H D, ALT 30, Alkaline Phosphatase 116, Total Protein 5.2 L, Albumin 3.1 L D, Globulin 2.1, Albumin/Globulin Ratio 1.5 12/15/22 06:24: POC Glucose 236 H I & O for Labs for Last 24 Hours: Intake & Output 12/12/22 12/13/22 12/14/22 12/15/22 23:59 23:59 23:59 23:59 Intake Total 1930 / 1930 1200 / 1200 1440 / 1440 490 / 490 Output Total 1000 / 1000 401 / 401 700 / 700 500 / 500 Balance 930 / 930 799 / 799 740 / 740 -10 / -10 Weight 229 lb 4.492 oz 234 lb 9 oz 231 lb 8 oz 236 lb 1.6 oz Microbiology Reports for the Last 24 Hours: Microbiology 12/13/22 22:00 Sputum - Expectorated Sputum Gram Stain - Final 12/13/22 22:00 Sputum - Expectorated Sputum Sputum Culture - Preliminary Gram Negative Rods 12/11/22 09:05 Sputum - Expectorated Sputum Gram Stain - Final 12/11/22 09:05 Sputum - Expectorated Sputum Sputum Culture - Final Klebsiella pneumoniae Stenotrophomonas maltophilia Constitutional: Present moderate distress Head: Present normocephalic and atraumatic ENT: Present normal exam, normal oropharynx and mucous membranes moist Neck: Present normal inspection and full ROM Respiratory: Present respiratory distress, rhonchi, wheezes, diminished air movement and able to speak in complete sentences; Absent accessory muscle use Cardiac: Present S1/S2, Tachycardia and radial pulses present GI: Present soft and distention; Absent tenderness or guarding Rectal (female): Present deferred (female): Present deferred Skin: Present intact; Absent cyanosis or jaundice Neuro: Present alert, awake and oriented x 3 Extremities: Present normal inspection; Absent clubbing or cyanosis Psychiatric: Present normal affect and cooperative Assessment and Plan *Assessment and plan (1) Acute exacerbation of chronic obstructive pulmonary disease: Status: Acute
--- NOTE | 2022-12-15 09:38 | DIET.NUTRFU ---
RD saw patient this AM, she reported good intake- tater tots/carvajal and oatmeal. No eggs, protein intake was encouraged, she agreed to have a SF pudding for extra protein. Patient has not had BM since admit on 12/11, patient said she goes every couple days at home. Does not take any meds for BM at home. There is also no regimen in place here. Nursing aware.
--- NOTE | 2022-12-15 09:44 | PC.NURSE ---
COURTESY TECH NOTE; ROUNDED ON PT, PT DENIED NEED FOR RESTROOM, DRINK. ASSISTED PT TO REPOSITION IN BED. ENCOURAGED PT TO RING CALL LONG WHEN SHE NEEDS ASSISTANCE. CALL LIGHT WITHIN REACH, NO FURTHER REQUESTS AT THIS TIME. ARIS NGUYEN
[2022-12-15 11:15] LABS: POC Glucose,Bedside 275 (70-110)
--- NOTE | 2022-12-15 13:07 | HMH.PHAINT1 ---
Pharmacy Intervention Comments: DISCHARGE MEDICATION COUNSELING PROVIDED. DISCUSSED THE FOLLOWING CHANGES: -STOP BASAGLAR 40 UNITS HS; START LANTUS 55 UNITS HS (FOR DIABETES, PATIENT TAKEN BEFORE, NO QUESTIONS) -STOP GLIPIZIDE. -CHANGE DIAZEPAM FROM TWICE DAILY SCHEDULED TO TWICE DAILY NEEDED FOR ANXIETY -CHANGE PERCOCET FROM FOUR TIMES DAILY NEEDED TO TWICE DAILY NEEDED -START PREDNISONE (STEROID, DAILY, TAKE WITH FOOD, BEST TAKEN IN THE MORNING TO AVOID INSOMNIA, MAY ELEVATE BLOOD SUGAR, CAN CAUSE N/V) -START LEVAQUIN (ANTIBIOTIC, DAILY, TAKE WITH FOOD, N/V/D POSSIBLE, RARE RISK OF TENDON RUPTURE WHEN GIVEN WITH STEROID) -START BACTRIM (ANTIBIOTIC, TWICE DAILY, TAKE WITH FOOD, N/V/D POSSIBLE, MAY CAUSE SKIN/SUN SENSITIVITY) PATIENT VERBALIZED A QUESTION OF WHY HER PERCOCET WAS BEING CUT FROM FOUR TIMES DAILY TO TWICE DAILY. I ADVISED I WOULD FOLLOW UP WITH DR MANDUJANO AND I MADE HER NURSE (NELIDA) AWARE. I SPOKE WITH DR MANDUJANO AND HE SAID IT WAS DUE TO HER ONLY TAKING AT MOST TWO DOSES A DAY WHILE ADMITTED. HE STATED HE WASN'T SENDING IN A NEW PRESCRIPTION, SO SHE COULD CONTINUE TO TAKE FOUR TIMES A DAY IF SHE WANTED DESPITE HIS RECOMMENDATION. I RELAYED THIS INFORMATION TO NELIDA WHO STATED SHE WOULD TELL THE PATIENT. NO FURTHER QUESTIONS AT THIS TIME.
--- NOTE | 2022-12-18 14:45 | CARE MANAGER ---
Called and spoke with Yaritza today regarding recent discharge. She was unsure of how to use her insulin pen, which I tried to explain. She plans to ask her HH nurse when they come. No other complaints/concerns voiced at time of call.
== END 2022-12-15 15:47 | disposition home health service (06) | DRG 190 ==
LOC: ER 09:49 → 2ND 10:29
PROVIDERS: Admitting Provider Internal Medicine Adolescent Medicine; Emergency Provider Student in an Organized Health Care Education/Training Program; PCP Emergency Medicine; Visit Provider Internal Medicine Adolescent Medicine
DX: J44.1 Chronic obstructive pulmonary disease with (acute) exacerbation (principal); J96.01 Acute respiratory failure with hypoxia; Z79.84 Long term (current) use of oral hypoglycemic drugs; E11.9 Type 2 diabetes mellitus without complications; I25.10 Atherosclerotic heart disease of native coronary artery without angina pectoris; E78.5 Hyperlipidemia, unspecified; I48.0 Paroxysmal atrial fibrillation; Z95.0 Presence of cardiac pacemaker; Z96.651 Presence of right artificial knee joint; Z79.4 Long term (current) use of insulin; E66.9 Obesity, unspecified; F41.9 Anxiety disorder, unspecified; Z76.1 Encounter for health supervision and care of foundling; Z68.35 Body mass index [BMI] 35.0-35.9, adult; I11.0 Hypertensive heart disease with heart failure; F17.210 Nicotine dependence, cigarettes, uncomplicated; I50.9 Heart failure, unspecified
CPT/HCPCS: 36415; 71045; 80048; 80053; 82803; 82962; 83036; 83735; 83880; 84484; 85007; 85025; 87040; 87070; 87077; 87081; 87186; 87205; 87581; 87632; 87635; 87636; 87798; 93005; 94640; 94667; 94761; 97162; 97165; 99291; C9803; J3475; U0003; U0005

== ENCOUNTER → 2023-03-15 09:42 | Outpatient (CLI) | payer MEDICARE, MEDICAID, SELFPAY | PROVIDERS: PCP Emergency Medicine; Visit Provider Internal Medicine Pulmonary Disease | DX: R06.02 Shortness of breath (principal) | CPT/HCPCS: 94060; 94618; 94727; 94729 ==

== ENCOUNTER 2023-03-15 11:55 | Emergency (ER) | payer MEDICARE, MEDICAID, SELFPAY ==
[2023-03-15 11:56] VITALS: BP 132/70; PULSE 70; RESP 18; TEMP 36.6; O2SAT 91; BMI 34.0
--- NOTE | 2023-03-15 12:16 | EXP.UTC ---
Discharge Plan Disposition Patient Disposition: Home, Self-Care Condition: Good Prescriptions Prescriptions: New prednisone 10 mg tablet 10 mg PO BID 4 Days Qty: 8 0RF cyclobenzaprine 5 mg tablet 5 mg PO BID PRN (Reason: muscle spasm) Qty: 15 0RF No Action albuterol sulfate 90 mcg/actuation HFA aerosol inhaler 2 puff INHALATION Q6HP PRN (Reason: Shortness Of Breath) 90 Days Qty: 8.5 0RF prednisone 20 mg tablet 40 mg PO DAILY 5 Days Qty: 10 0RF minocycline 100 mg capsule 100 mg PO BID Qty: 20 0RF fluconazole [Diflucan] 100 mg tablet 100 mg PO DAILY Qty: 7 0RF mupirocin 2 % ointment 1 applic topical BID Qty: 22 0RF diazepam [Valium] 2 mg tablet 2 mg PO BID Qty: 60 1RF gabapentin 800 mg tablet 800 mg PO TID Qty: 90 1RF oxycodone-acetaminophen 10-325 mg tablet 1 tab PO QID Qty: 120 0RF Jardiance 10 mg tablet 10 mg PO DAILY Qty: 30 3RF (DME) pen needle, diabetic [BD Ultra-Fine Micro Pen Needle] 32 gauge x 1/4 needle See Rx Instructions .Route Qty: 100 2RF Rx Instructions: Use daily As directed insulin pen injections nicotine 21-14-7 mg/24 hr patch, TD daily, sequential See Rx Instructions transdermal .COMPLEX Qty: 56 0RF Rx Instructions: apply 1-21 mg NICOTINE PATCH daily for 28 days; follow with 1-14 mg PATCH daily for 14 days, then 1-7mg PATCH daily for 14 days transdermal metformin 500 mg tablet See Rx Instructions .ROUTE .COMPLEX Qty: 180 3RF Dose Instruction: TAKE ONE TABLET BY MOUTH TWICE DAILY Rx Instructions: TAKE ONE TABLET BY MOUTH TWICE DAILY glipizide 10 mg tablet 10 mg PO DAILY Qty: 90 0RF magnesium oxide 400 mg (241.3 mg magnesium) tablet See Rx Instructions .ROUTE .COMPLEX Qty: 270 3RF Dose Instruction: TAKE ONE TABLET BY MOUTH THREE TIMES DAILY OR DIRECTED Rx Instructions: TAKE ONE TABLET BY MOUTH THREE TIMES DAILY OR DIRECTED insulin glargine [Basaglar KwikPen U-100 Insulin] 100 unit/mL (3 mL) insulin pen 55 unit SQ HS Qty: 15 5RF (DME) lancets [TRUEplus Lancets] 33 gauge misc See Rx Instructions .ROUTE .COMPLEX Qty: 100 2RF Dose Instruction: USE TO test blood glucose level TWICE DAILY DIRECTED Rx Instructions: USE TO test blood glucose level TWICE DAILY DIRECTED bisoprolol fumarate 10 mg tablet See Rx Instructions .ROUTE .COMPLEX Qty: 60 5RF Dose Instruction: TAKE ONE TABLET BY MOUTH TWICE DAILY FOR BLOOD PRESSURE Rx Instructions: TAKE ONE TABLET BY MOUTH TWICE DAILY FOR BLOOD PRESSURE atorvastatin 40 mg tablet See Rx Instructions .ROUTE .COMPLEX Qty: 90 3RF Dose Instruction: TAKE ONE TABLET BY MOUTH EVERY DAY AT BEDTIME Rx Instructions: TAKE ONE TABLET BY MOUTH EVERY DAY AT BEDTIME fluoxetine 20 mg capsule See Rx Instructions .ROUTE .COMPLEX Qty: 180 3RF Dose Instruction: TAKE ONE CAPSULE BY MOUTH TWICE DAILY FOR MOOD Rx Instructions: TAKE ONE CAPSULE BY MOUTH TWICE DAILY FOR MOOD ropinirole 0.25 mg tablet See Rx Instructions .ROUTE .COMPLEX Qty: 90 3RF Dose Instruction: TAKE ONE TABLET BY MOUTH EVERY DAY AT BEDTIME FOR restless LEGS Rx Instructions: TAKE ONE TABLET BY MOUTH EVERY DAY AT BEDTIME FOR restless LEGS furosemide 40 mg tablet See Rx Instructions .ROUTE .COMPLEX Qty: 90 3RF Dose Instruction: TAKE ONE TABLET BY MOUTH EVERY DAY Rx Instructions: TAKE ONE TABLET BY MOUTH EVERY DAY Januvia 25 mg tablet See Rx Instructions .ROUTE .COMPLEX Qty: 30 2RF Dose Instruction: TAKE ONE TABLET BY MOUTH EVERY DAY Rx Instructions: TAKE ONE TABLET BY MOUTH EVERY DAY nicotine (polacrilex) [Nicorette] 4 mg gum 4 mg buccal Q2H Qty: 50 2RF lidocaine 4 % adhesive patch,medicated 1 patch topical Q12H PRN (Reason: pain) Qty: 30 2RF Rx Instructions: 12 hours on,12 hrs off montelukast 10 mg tablet See Rx Instruction
[2023-03-15 13:12] VITALS: BP 132/70; PULSE 70; RESP 18; TEMP 36.6; O2SAT 91
== END 2023-03-15 13:13 | disposition home or self-care (01) ==
PROVIDERS: Emergency Provider Nurse Practitioner Family; PCP Emergency Medicine
DX: M54.2 Cervicalgia (principal); F17.210 Nicotine dependence, cigarettes, uncomplicated; J44.9 Chronic obstructive pulmonary disease, unspecified; I11.0 Hypertensive heart disease with heart failure; I25.10 Atherosclerotic heart disease of native coronary artery without angina pectoris; E11.9 Type 2 diabetes mellitus without complications; E78.5 Hyperlipidemia, unspecified; Z95.0 Presence of cardiac pacemaker; Z79.4 Long term (current) use of insulin; I50.9 Heart failure, unspecified
CPT/HCPCS: 94060; 94618; 94727; 94729; 96372; 99212; 99214; G0463

== ENCOUNTER → 2023-05-04 21:39 | Outpatient (CLI) | payer MEDICARE, MEDICAID, SELFPAY ==
[2023-05-04 15:34] LABS: Amphetamine/Metha Screen,Urine Negative ng/ml (<1000)
[2023-05-04 15:35] LABS: Barbiturates Screen,Urine Negative ng/ml (<200); Benzodiazepines Screen,Urine Positive ng/ml (<200)
[2023-05-04 15:36] LABS: Cannabinoid Screen,Urine Negative ng/ml (<50)
[2023-05-04 15:37] LABS: Cocaine Screen,Urine Negative ng/ml (<300); Methadone Screen,Urine Negative ng/ml (<300)
[2023-05-04 15:38] LABS: Opiate Screen,Urine Negative ng/ml (<300)
[2023-05-04 15:39] LABS: Phencyclidine Screen,Urine Negative ng/ml (<25)
== END ==
PROVIDERS: PCP Emergency Medicine; Visit Provider Emergency Medicine
DX: M54.2 Cervicalgia (principal)
CPT/HCPCS: 80305

== ENCOUNTER → 2023-05-31 13:47 | Outpatient (CLI) | payer MEDICARE, MEDICAID, SELFPAY ==
[2023-05-31 14:46] LABS: Anion Gap 10.3 mEq/L (5-15); Blood Urea Nitrogen 19 mg/dl (7-17); Calcium 9.1 mg/dl (8.4-10.2); Carbon Dioxide 28 mmol/L (22.0-30.0); Chloride 107 mmol/L (98-107); Estimated Glomerular Filt Rate 62 ml/min (>60); GFR (African American) 75 ML/MIN (>60); Glucose 113 mg/dl (74-100); Potassium 4.3 mmoL/L (3.5-5.1); Sodium 141 mmol/L (136-145)
== END ==
PROVIDERS: PCP Emergency Medicine; Visit Provider Internal Medicine
DX: E11.9 Type 2 diabetes mellitus without complications (principal); J44.9 Chronic obstructive pulmonary disease, unspecified; R05.9 Cough, unspecified; F41.9 Anxiety disorder, unspecified; E66.9 Obesity, unspecified; Z68.37 Body mass index [BMI] 37.0-37.9, adult; Z72.0 Tobacco use; Z79.4 Long term (current) use of insulin; Z79.84 Long term (current) use of oral hypoglycemic drugs
CPT/HCPCS: 36415; 80048

== ENCOUNTER → 2023-06-04 14:06 | Outpatient (CLI) | payer MEDICARE, MEDICAID, SELFPAY ==
--- NOTE | 2023-06-04 14:10 | XR_ITS ---
FINAL REPORT CLINICAL HISTORY: cough COMPARISON: 12/13/2022 FINDINGS: PA and lateral views of the chest are obtained. The cardiac and mediastinal silhouettes are within normal limits. A left subclavian pacemaker is once again identified. There are large lung volumes and flattening of the hemidiaphragms consistent with chronic obstructive pulmonary disease. No acute infiltrate is identified. There is no pleural effusion, pneumothorax, or acute osseous abnormality. IMPRESSION: No radiographic evidence of acute cardiac or pulmonary disease. Changes of chronic obstructive pulmonary disease are once again noted. Reviewed, Interpreted and Dictated by Mónica Watkins MD Transcribed by Cherrie Dumont Authenticated and [facility]
--- NOTE | 2023-06-04 14:10 | MM_ITS ---
PROCEDURE INFORMATION: Exam: MG Bilateral Screening 3D Mammography Exam date and time: 06/04/2023 2:15 PM Age: 67 years old Clinical indication: Screening examination; Family history of breast cancer in mother; Mother's age: 65 years TECHNIQUE: Imaging protocol: Bilateral Screening tomosynthesis and 2D mammography including computer-aided detection (CAD) when performed. COMPARISON: 1. MG MM DIG SCREENING MAMM BI W/CAD 06/07/2021 4:49 PM 2. MG SCBI MM Dig screening mamm BI w/CAD 11/08/2018 11:14 AM FINDINGS: MAMMOGRAPHY: Breast composition: There are scattered areas of fibroglandular density. Mass: None. Architectural distortion: None. Calcifications: No suspicious calcifications. Asymmetric density: None. Skin thickening: None. Axillary adenopathy: None. IMPRESSION: No mammographic evidence of malignancy. Annual screening is recommended unless otherwise clinically indicated. ASSESSMENT: BI-RADS Category 1: Negative
== END ==
PROVIDERS: PCP Emergency Medicine; Visit Provider Emergency Medicine
DX: Z12.31 Encounter for screening mammogram for malignant neoplasm of breast (principal); E11.9 Type 2 diabetes mellitus without complications; E66.9 Obesity, unspecified; E78.5 Hyperlipidemia, unspecified; F41.9 Anxiety disorder, unspecified; G62.9 Polyneuropathy, unspecified; J44.9 Chronic obstructive pulmonary disease, unspecified; R05.9 Cough, unspecified; Z72.0 Tobacco use; Z68.37 Body mass index [BMI] 37.0-37.9, adult; Z79.84 Long term (current) use of oral hypoglycemic drugs
CPT/HCPCS: 71046; 77063; 77067

== ENCOUNTER → 2023-06-11 13:03 | Outpatient (CLI) | payer MEDICARE, MEDICAID, SELFPAY | PROVIDERS: PCP Emergency Medicine; Visit Provider Internal Medicine Pulmonary Disease | DX: J44.9 Chronic obstructive pulmonary disease, unspecified (principal); Z72.0 Tobacco use | CPT/HCPCS: 94762 ==

== ENCOUNTER → 2023-07-02 15:08 | Outpatient (CLI) | payer MEDICARE, MEDICAID, SELFPAY ==
[2023-07-02 17:32] LABS: Creatinine,Urine Random 302 mg/dL (Not Estab.)
[2023-07-02 17:35] LABS: Microalbumin/Creatinine Ratio 37.8
[2023-07-02 17:38] LABS: Amphetamine/Metha Screen,Urine Negative ng/ml (<1000)
[2023-07-02 17:39] LABS: Benzodiazepines Screen,Urine Negative ng/ml (<200)
[2023-07-02 17:41] LABS: Cannabinoid Screen,Urine Negative ng/ml (<50)
[2023-07-02 17:42] LABS: Methadone Screen,Urine Negative ng/ml (<300)
[2023-07-02 18:14] LABS: Cocaine Screen,Urine Negative ng/ml (<300)
[2023-07-02 18:40] LABS: Phencyclidine Screen,Urine Negative ng/ml (<25)
[2023-07-02 18:41] LABS: Barbiturates Screen,Urine Negative ng/ml (<200)
[2023-07-02 18:42] LABS: Opiate Screen,Urine Positive ng/ml (<300)
== END ==
PROVIDERS: PCP Internal Medicine; Visit Provider Internal Medicine
DX: E11.9 Type 2 diabetes mellitus without complications (principal); Z79.899 Other long term (current) drug therapy; Z79.4 Long term (current) use of insulin
CPT/HCPCS: 80305; 82043; 82570

== ENCOUNTER → 2023-07-27 13:47 | Outpatient (CLI) | payer MEDICARE, MEDICAID, SELFPAY ==
--- NOTE | 2023-07-27 14:14 | CT_ITS ---
FINAL REPORT CLINICAL HISTORY: lung cancer screening current smoker, pt trying to quit 2 ppd x 50 yrs COMPARISON: CTA chest dated 07/26/2022 FINDINGS: Axial images were obtained from the lung apex to the mid abdomen by computed tomography. Low-dose protocol was utilized. CTDl vol(mGy): 2.90 DLP (mGy-cm): 110.20 FINDINGS: There is no axillary adenopathy. There is no hilar or mediastinal adenopathy. A left-sided pacemaker is noted. There are vascular calcifications. The heart size is normal. There is no pericardial or pleural effusion. Limited images of the upper abdomen are unremarkable. Lung window images demonstrate mild emphysematous changes. Previously seen groundglass opacities have resolved. There is no suspicious pulmonary mass or nodule. There is no acute osseous abnormality. IMPRESSION: Lung RADS category 1. Recommend 12 month follow-up low-dose chest CT. Reviewed, Interpreted and Dictated by Bere Moncada MD Transcribed by Frances Mata Authenticated and [facility]
[2023-07-27 14:22] LABS: Basophils # 0.1 K/mm3 (0-0.2); Basophils % 0.9 % (0.1-2.0); Eosinophils # 0.4 K/mm3 (0.0-0.4); Eosinophils % 2.7 % (0.1-12.0); Hematocrit 44.8 % (37.0-47.0); Hemoglobin 14.3 g/dL (12.2-16.2); Lymphocytes # 2.9 K/mm3 (0.7-4.5); Lymphocytes % 20.3 % (10-50); Mean Corpuscular HGB Conc 31.8 g/dL (31.8-35.4); Mean Corpuscular Hemoglobin 27.2 pg (27.0-31.2); Mean Corpuscular Volume 85.4 fl (81-99); Mean Platelet Volume 9.8 fl (7.4-10.4); Monocytes # 0.9 K/mm3 (0.1-1.0); Monocytes % 6.1 % (1.7-9.3); Neutrophils # 9.9 K/mm3 (1.8-7.8); Platelet Count 207 K/mm3 (142-424); Red Blood Count 5.25 M/mm3 (4.20-5.40); Red Cell Distribution Width 18.7 % (11.5-17.5); White Blood Count 14.2 K/mm3 (4.8-10.8)
[2023-07-27 14:55] LABS: Alanine Aminotransferase 39 U/L (12-78); Albumin Level 4.3 g/dl (3.5-5.0); Alkaline Phosphatase 132 U/L (38-126); Anion Gap 14.2 mEq/L (5-15); Aspartate Amino Transferase 37 U/L (14-36); Bilirubin,Direct 0.2 mg/dl (0.0-0.4); Bilirubin,Indirect 0.2 mg/dL (0.0-0.9); Bilirubin,Total 0.4 mg/dl (0.2-1.3); Bilirubin,Unconjugated 0.2 mg/dL (0.0-1.1); Blood Urea Nitrogen 17 mg/dl (7-17); Carbon Dioxide 22 mmol/L (22.0-30.0); Chloride 107 mmol/L (98-107); Chol/HDL Ratio 3.5 (1-3.5); Cholesterol 141 mg/dl (140-200); Estimated Glomerular Filt Rate 49 ml/min (>60); GFR (African American) 59 ML/MIN (>60); Glucose 104 mg/dl (74-100); HDL Cholesterol 40 mg/dl (40-60); Magnesium 1.5 mg/dl (1.6-2.3); Potassium 4.2 mmoL/L (3.5-5.1); Sodium 139 mmol/L (136-145); Total Protein,Serum 6.6 g/dl (6.3-8.2); Triglycerides 206 mg/dl (30-150); VLDL Cholesterol 41 mg/dL (0-40)
[2023-07-27 15:06] LABS: Direct LDL Cholesterol 81.69 mg/dL (100-129)
[2023-07-27 15:14] LABS: Free T4 (Free Thyroxine) 1.44 ng/dl (0.78-2.19)
[2023-07-27 15:28] LABS: Thyroid Stimulating Hormone 1.89 uIU/mL (0.465-4.68)
== END ==
PROVIDERS: Internal Medicine; PCP Internal Medicine; Visit Provider Internal Medicine Pulmonary Disease
DX: E11.9 Type 2 diabetes mellitus without complications (principal); R06.09 Other forms of dyspnea; E78.5 Hyperlipidemia, unspecified; G62.9 Polyneuropathy, unspecified; I25.10 Atherosclerotic heart disease of native coronary artery without angina pectoris; I51.89 Other ill-defined heart diseases; Z95.0 Presence of cardiac pacemaker; F17.210 Nicotine dependence, cigarettes, uncomplicated; Z79.84 Long term (current) use of oral hypoglycemic drugs; Z12.2 Encounter for screening for malignant neoplasm of respiratory organs
CPT/HCPCS: 36415; 71271; 80048; 80061; 80076; 83735; 84439; 84443; 85025; 94618

== ENCOUNTER 2023-08-30 21:38 | Outpatient (CLI) | payer MEDICARE, MEDICAID, SELFPAY ==
[2023-08-30 18:55] LABS: Basophils # 0.1 K/mm3 (0-0.2); Basophils % 1.1 % (0.1-2.0); Eosinophils # 0.3 K/mm3 (0.0-0.4); Eosinophils % 3.7 % (0.1-12.0); Hematocrit 47.9 % (37.0-47.0); Hemoglobin 14.9 g/dL (12.2-16.2); Lymphocytes # 1.9 K/mm3 (0.7-4.5); Lymphocytes % 23.5 % (10-50); Mean Corpuscular Hemoglobin 27.1 pg (27.0-31.2); Mean Corpuscular Volume 87.3 fl (81-99); Mean Platelet Volume 11.7 fl (7.4-10.4); Monocytes # 0.5 K/mm3 (0.1-1.0); Monocytes % 5.7 % (1.7-9.3); Neutrophils # 5.3 K/mm3 (1.8-7.8); Neutrophils % 66.1 % (37.0-80.0); Platelet Count 176 K/mm3 (142-424); Red Blood Count 5.49 M/mm3 (4.20-5.40); Red Cell Distribution Width 17.9 % (11.5-17.5); White Blood Count 8.1 K/mm3 (4.8-10.8)
[2023-08-30 20:05] LABS: Vitamin B12 254 pg/mL (239-931)
[2023-08-30 20:31] LABS: Iron 75 ug/dL (37-170)
== END 2023-08-30 23:59 ==
PROVIDERS: PCP Internal Medicine; Visit Provider Internal Medicine
DX: E11.9 Type 2 diabetes mellitus without complications (principal); E78.5 Hyperlipidemia, unspecified; Z79.4 Long term (current) use of insulin; R71.8 Other abnormality of red blood cells
CPT/HCPCS: 82607; 83540; 85025

== ENCOUNTER 2023-09-04 14:41 | Emergency (ER) | payer MEDICARE, MEDICAID, SELFPAY ==
[2023-09-04] VITALS (9 sets, daily range): BP systolic 124–139; BP diastolic 65–72; PULSE 69–75; RESP 16–18; TEMP 36.4; O2SAT 90–94; BMI 26.6
--- NOTE | 2023-09-04 14:53 | XR_ITS ---
FINAL REPORT CLINICAL HISTORY: fall, landed on hands, palmar/ulnar pains COMPARISON: None FINDINGS: RIGHT HAND: 3 views of the right hand were obtained. There is no acute fracture or dislocation. Visualized joint spaces are normally aligned. Soft tissues are unremarkable. Mild degenerative changes present. IMPRESSION: No acute bony abnormality. Reviewed, Interpreted and Dictated by Vickey Christianson III, MD Transcribed by Cherrie Dumont Authenticated and [facility]
--- NOTE | 2023-09-04 14:53 | CT_ITS ---
FINAL REPORT TECHNIQUE: Axial CT images of the face were obtained without contrast. Coronal and sagittal reformatted images were also obtained. This study was performed with techniques to keep radiation doses as low as reasonably achievable, (ALARA). Individualized dose reduction techniques using automated exposure control or adjustment of mA and/or kV according to the patient's size were employed. CLINICAL HISTORY: fall, struck face COMPARISON: None FINDINGS: There are comminuted fractures of the nasal bones bilaterally. There are multiple fragments anterior to the right nasal bone, with inward displacement of some of the fragments as well. There is external soft tissue swelling and soft tissue air present as well. The orbits are intact.The globes are intact.No sinus fluid levels are identified. There is a left maxillary polyp versus cyst. No soft tissue mass is seen. IMPRESSION: Comminuted nasal bone fractures with multiple fragments anterior to the right nasal bone and inward displacement of some fragments as well. There is marked external soft tissue swelling and subcutaneous air. Left maxillary polyp versus retention cyst. Reviewed, Interpreted and Dictated by Vickey Christianson III, MD Transcribed by Cherrie Dumont Authenticated and . [facility]
--- NOTE | 2023-09-04 14:53 | CT_ITS ---
FINAL REPORT CLINICAL HISTORY: fall, struck face COMPARISON: 01/21/2022 FINDINGS: Axial images of the head were obtained without contrast. Coronal and sagittal reformatted images were also obtained. This study was performed with techniques to keep radiation doses as low as reasonably achievable (ALARA). Individualized dose reduction techniques using automated exposure control or adjustment of mA and/or kV according to the patient's size were employed. There is generalized age-appropriate atrophy. Periventricular low-attenuation areas are seen consistent with mild chronic ischemic changes. There is a low density in the right periventricular white matter consistent with a chronic lacunar infarct. There is no evidence of intracranial hemorrhage or mass. There is no evidence of acute infarct. There is no evidence of shift of the midline structures. No skull abnormality is seen on the bone window images. IMPRESSION: Atrophy and mild periventricular chronic ischemic changes. No acute intracranial abnormality identified. Reviewed, Interpreted and Dictated by Vickey Christianson III, MD Transcribed by Cherrie Dumont Authenticated and [facility]
--- NOTE | 2023-09-04 14:53 | XR_ITS ---
FINAL REPORT CLINICAL HISTORY: fall, landed on hands, palmar/ulnar pains COMPARISON: None FINDINGS: LEFT HAND: 3 views of the left hand were obtained. There is no acute fracture or dislocation. Visualized joint spaces are normally aligned. Soft tissues are unremarkable. There is mild degenerative change present in the left hand. IMPRESSION: No acute bony abnormality. Reviewed, Interpreted and Dictated by Vickey Christianson III, MD Transcribed by Cherrie Dumont Authenticated and [facility]
--- NOTE | 2023-09-04 14:57 | CT_ITS ---
FINAL REPORT CLINICAL HISTORY: fall, face first COMPARISON: None FINDINGS: Axial CT images of the cervical spine were obtained without contrast. Sagittal and coronal reformatted images were also obtained. This study was performed with techniques to keep radiation doses as low as reasonably achievable (ALARA). Individualized dose reduction techniques using automated exposure control or adjustment of mA and/or kV according to the patient's size were employed. There is no evidence of fracture or dislocation. The bony alignment is normal. Moderate degenerative change is present in the cervical spine. There is no evidence of canal stenosis. There has been a right thyroid resection. There is a 21 mm presumed sebaceous cyst in the right posterior subcutaneous soft tissues at the base of the neck. Limited images of the upper thorax are unremarkable. IMPRESSION: No fracture or acute bony abnormality identified. Moderate cervical degenerative change. Prior right thyroid resection. 21 mm presumed sebaceous cyst right posterior soft tissues of the neck. Reviewed, Interpreted and Dictated by Vickey Christianson III, MD Transcribed by Cherrie Dumont Authenticated and [facility]
--- NOTE | 2023-09-04 14:59 | PC.NURSE ---
c collar placed on pt
[2023-09-04 15:04] LABS: Basophils # 0.2 K/mm3 (0-0.2); Basophils % 1.5 % (0.1-2.0); Eosinophils # 0.4 K/mm3 (0.0-0.4); Eosinophils % 3.9 % (0.1-12.0); Hematocrit 47.1 % (37.0-47.0); Hemoglobin 15.4 g/dL (12.2-16.2); Lymphocytes % 27.4 % (10-50); Mean Corpuscular HGB Conc 32.7 g/dL (31.8-35.4); Mean Corpuscular Hemoglobin 27.6 pg (27.0-31.2); Mean Corpuscular Volume 84.5 fl (81-99); Monocytes # 0.7 K/mm3 (0.1-1.0); Monocytes % 6.3 % (1.7-9.3); Neutrophils # 6.7 K/mm3 (1.8-7.8); Neutrophils % 60.9 % (37.0-80.0); Platelet Count 199 K/mm3 (142-424); Red Blood Count 5.58 M/mm3 (4.20-5.40); Red Cell Distribution Width 17.7 % (11.5-17.5); White Blood Count 10.9 K/mm3 (4.8-10.8)
[2023-09-04 15:10] LABS: Chloride 107 mmol/L (98-107)
[2023-09-04 15:11] LABS: Potassium 4.9 mmoL/L (3.5-5.1); Sodium 139 mmol/L (136-145)
[2023-09-04 15:13] LABS: Blood Urea Nitrogen 20 mg/dl (7-17); Creatinine Clearance Estimated 55 mL/min (50-200); Estimated Glomerular Filt Rate 49 ml/min (>60); GFR (African American) 59 ML/MIN (>60)
[2023-09-04 15:14] LABS: Alanine Aminotransferase 40 U/L (12-78); Albumin Level 4.2 g/dl (3.5-5.0); Albumin/Globulin Ratio 1.5 (1.1-1.8); Alkaline Phosphatase 118 U/L (38-126); Anion Gap 9.9 mEq/L (5-15); Aspartate Amino Transferase 40 U/L (14-36); Bilirubin,Total 0.5 mg/dl (0.2-1.3); Calcium 9.5 mg/dl (8.4-10.2); Carbon Dioxide 27 mmol/L (22.0-30.0); Globulin 2.8 g/dL (1.3-3.2); Glucose 142 mg/dl (74-100)
--- NOTE | 2023-09-04 15:18 | ED_ITS ---
Discharge Plan Disposition Patient Disposition: Xfer Short-Term Hosp Chief Complaint: Fall Prescriptions Prescriptions: No Action mupirocin 2 % ointment 1 applic topical BID Qty: 22 0RF albuterol sulfate 90 mcg/actuation HFA aerosol inhaler 2 puff INHALATION Q6HP PRN (Reason: Shortness Of Breath) 90 Days Qty: 8.5 0RF ipratropium-albuterol 0.5 mg-3 mg(2.5 mg base)/3 mL solution for nebulization 3 ml inhalation QID PRN (Reason: shortness of breath or wheezing) Qty: 90 3RF fluticasone propionate 50 mcg/actuation spray,suspension See Rx Instructions .ROUTE .COMPLEX Qty: 16 2RF Dose Instruction: instill 1 SPRAY IN EACH NOSTRIL EVERY DAY Rx Instructions: instill 1 SPRAY IN EACH NOSTRIL EVERY DAY Trelegy Ellipta 200-62.5-25 mcg blister with device 1 inh inhalation DAILY 90 Days Qty: 90 3RF furosemide 40 mg tablet 40 mg PO DAILY Qty: 90 3RF lisinopril 2.5 mg tablet 2.5 mg PO HS 90 Days Qty: 90 0RF Jardiance 10 mg tablet 20 mg PO DAILY Qty: 60 3RF gabapentin 800 mg tablet 800 mg PO BID Qty: 60 1RF metformin 500 mg tablet 1,000 mg PO BID 30 Days Qty: 120 3RF hydrocodone-acetaminophen 10-325 mg tablet 1 tab PO Q4-6H PRN (Reason: pain) 30 Days Qty: 150 0RF amitriptyline 25 mg tablet 25 mg PO HS Qty: 30 2RF (DME) pen needle, diabetic [BD Ultra-Fine Micro Pen Needle] 32 gauge x 1/4 needle See Rx Instructions .Route Qty: 100 2RF Rx Instructions: Use daily As directed insulin pen injections magnesium oxide 400 mg (241.3 mg magnesium) tablet See Rx Instructions .ROUTE .COMPLEX Qty: 270 3RF Dose Instruction: TAKE ONE TABLET BY MOUTH THREE TIMES DAILY OR DIRECTED Rx Instructions: TAKE ONE TABLET BY MOUTH THREE TIMES DAILY OR DIRECTED atorvastatin 40 mg tablet See Rx Instructions .ROUTE .COMPLEX Qty: 90 3RF Dose Instruction: TAKE ONE TABLET BY MOUTH EVERY DAY AT BEDTIME Rx Instructions: TAKE ONE TABLET BY MOUTH EVERY DAY AT BEDTIME fluoxetine 20 mg capsule See Rx Instructions .ROUTE .COMPLEX Qty: 180 3RF Dose Instruction: TAKE ONE CAPSULE BY MOUTH TWICE DAILY FOR MOOD Rx Instructions: TAKE ONE CAPSULE BY MOUTH TWICE DAILY FOR MOOD ropinirole 0.25 mg tablet See Rx Instructions .ROUTE .COMPLEX Qty: 90 3RF Dose Instruction: TAKE ONE TABLET BY MOUTH EVERY DAY AT BEDTIME FOR restless LEGS Rx Instructions: TAKE ONE TABLET BY MOUTH EVERY DAY AT BEDTIME FOR restless LEGS montelukast 10 mg tablet See Rx Instructions .ROUTE .COMPLEX Qty: 90 3RF Dose Instruction: TAKE ONE TABLET BY MOUTH EVERY DAY AT BEDTIME FOR allergies Rx Instructions: TAKE ONE TABLET BY MOUTH EVERY DAY AT BEDTIME FOR allergies potassium chloride 20 mEq tablet,ER particles/crystals See Rx Instructions .ROUTE .COMPLEX Qty: 90 3RF Dose Instruction: TAKE ONE TABLET BY MOUTH EVERY DAY Rx Instructions: TAKE ONE TABLET BY MOUTH EVERY DAY pantoprazole 40 mg tablet,delayed release (DR/EC) See Rx Instructions .ROUTE .COMPLEX Qty: 90 1RF Dose Instruction: TAKE ONE TABLET BY MOUTH EVERY DAY Rx Instructions: TAKE ONE TABLET BY MOUTH EVERY DAY (DME) lancets [TRUEplus Lancets] 33 gauge misc See Rx Instructions .ROUTE .COMPLEX Qty: 100 2RF Dose Instruction: USE TO test blood glucose level TWICE DAILY DIRECTED Rx Instructions: USE TO test blood glucose level TWICE DAILY DIRECTED ondansetron 4 mg tablet,disintegrating See Rx Instructions .ROUTE .COMPLEX Qty: 30 0RF Dose Instruction: DISSOLVE ONE TABLET IN MOUTH EVERY 8 HOURS NEEDED FOR NAUSEA AND VOMITING Rx Instructions: DISSOLVE ONE TABLET IN MOUTH EVERY 8 HOURS NEEDED FOR NAUSEA AND VOMITING insulin glargine [Basaglar KwikPen U-100 Insulin] 100 unit/mL (3 mL) insulin pen 55 unit SQ HS Qty: 15 5RF dextromethorphan-guaifenesin [Robitussin Cough-Chest Trey DM] 5-100 mg/5 mL liquid 10 ml PO Q6H Qty: 500 1RF bisoprolol fumarate 10 mg tablet See Rx Instructions .ROUTE .COMPLEX Qty: 60 5RF Dose Instruction: TAKE ONE TABLET BY MOUTH TWICE DAILY FOR BLOOD PRESSURE Rx Instructions: TAKE ONE TABLET BY MOUTH TWICE DAILY FOR BLOOD PRESSURE diltiazem HCl 240 mg capsule,extended release 24hr See Rx Instructions .ROUTE .COMPLEX Qty: 90 3RF Dose Instruction: TAKE ONE CAPSULE BY MOUTH EVERY DAY FOR heart Rx Instructions: TAKE ONE CAPSULE BY MOUTH EVERY DAY FOR heart Januvia 25 mg tablet See Rx Instructions .ROUTE .COMPLEX Qty: 30 2RF Dose Instruction: TAKE ONE TABLET BY MOUTH EVERY DAY Rx Instructions: TAKE ONE TABLET BY MOUTH EVERY DAY Xarelto 20 mg tablet 20 mg PO QPMWITHMEAL Rx Instructions: TAKE ONE TABLET BY MOUTH EVERY DAY with evening meal ipratropium-albuterol 0.5 mg-3 mg(2.5 mg base)/3 mL solution for nebulization 3 ml inhalation QID PRN (Reason: Shortness Of Breath Or Wheezing) cyclobenzaprine 5 mg tablet 5 mg PO BID PRN (Reason: muscle spasm) Qty: 15 0RF Referrals Follow up/Referrals: Provider,Referral, [Primary Care Provider] - See instructions Clinical Impressions Clinical Impression: Complex laceration of nose, Fracture, nasal bone, open, Fall down steps Discharge ED Provider: Sujata Toney General Adult HPI <Jann Gonzalez MD - Last Filed: 09/04/23 15:23> General Chief complaint: Fall Stated complaint: fall Time Seen by Provider: 09/04/23 14:51 Mode of Arrival: EMS Source of Information: Patient and Parent(s) Limitations: No Limitations Description of Symptoms (Recalled from ER Triage Doc. by RN): pt presents to ED for fall. pt was walking down concerte steps and tripped. approx 5 steps reported from EMS. pt reports she is unsure if she lost consciousness. pt reports headache, no other pain. pt does have large laceration on nasal bone. bilateral hands do have a few skin tears. no blood thinners per pt report History of Present Illness HPI narrative: 68-year-old for no history hypertension, hyperlipidemia, diabetes, CAD, COPD not currently on home oxygen presenting with fall. Patient was walking down steps and she fell approximately 4-5 steps onto her face. Caught her self on her hands, but did strike her nose. Patient states she lost consciousness. Not having neck or back pain, alert and oriented on arrival. Complaining of facial pain, no vision complaints. Not currently on anticoagulation Related Data Home Medications Medication Instructions Recorded Confirmed rivaroxaban 20 mg tablet (Xarelto) 20 mg PO QPMWITHMEAL Atrial 10/17/22 08/30/23 fibrillation/blood thinner ipratropium 0.5 mg-albuterol 3 mg 3 ml inhalation QID PRN Shortness 12/11/22 08/30/23 (2.5 mg base)/3 mL nebulization Of Breath Or Wheezing soln Previous Rx's Medication Instructions Recorded pen needle, diabetic 32 gauge x #100 ea 12/21/2208/02 (BD Ultra-Fine Micro Pen Needle) magnesium oxide 400 mg (241.3 mg See Rx Instructions .Route 01/26/23 magnesium) tablet .COMPLEX #270 tabs atorvastatin 40 mg tablet See Rx Instructions .Route 02/07/23 .COMPLEX #90 tabs fluoxetine 20 mg capsule See Rx Instructions .Route 02/07/23 .COMPLEX #180 caps ropinirole 0.25 mg tablet See Rx Instructions .Route 02/07/23 .COMPLEX #90 tabs mupirocin 2 % topical ointment 1 applic topical BID #22 grams 03/09/23 montelukast 10 mg tablet See Rx Instructions .Route 03/13/23 .COMPLEX #90 tabs potassium chloride 20 mEq See Rx Instructions .Route 03/13/23 tablet,extended release(part/cryst) .COMPLEX #90 tabs cyclobenzaprine 5 mg tablet 5 mg PO BID PRN muscle spasm #15 03/15/23 tabs pantoprazole 40 mg tablet,delayed See Rx Instructions .Route 04/11/23 release .COMPLEX #90 tabs lisinopril 2.5 mg tablet 2.5 mg PO HS Diabetes 90 days #90 05/04/23 tabs furosemide 40 mg tablet 40 mg PO DAILY #90 tabs 05/31/23 lancets 33 gauge (TRUEplus Lancets) #100 ea 06/13/23 empagliflozin 10 mg tablet 20 mg PO DAILY #60 tabs 07/02/23 (Jardiance) gabapentin 800 mg tablet 800 mg PO BID neuropathic pain #60 07/02/23 tabs metformin 500 mg tablet 1,000 mg PO BID 30 days #120 tabs 07/02/23 ondansetron 4 mg disintegrating See Rx Instructions .Route 07/24/23 tablet .COMPLEX #30 tabs insulin glargine 100 unit/mL (3 55 unit (0.55 mL) SQ HS #15 mL 07/27/23 mL) subcutaneous pen (Jenniaglar Cora U-100 Insulin) dextromethorphan-guaifenesin 5 10 ml PO Q6H #500 mL 08/01/23 mg-100 mg/5 mL oral liquid (Robitussin Cough-Chest Congestion DM) albuterol sulfate 90 mcg/actuation 2 puff inhalation Q6HP PRN 08/06/23 aerosol inhaler Shortness Of Breath 90 days #8.5 grams fluticasone fur. 200 mcg-umeclid 1 inh inhalation DAILY 90 days #90 08/06/23 62.5 mcg-vilant 25 mcg ea inhalat.powder (Trelegy Ellipta) fluticasone propionate 50 See Rx Instructions .Route 08/06/23 mcg/actuation nasal .COMPLEX #16 grams spray,suspension ipratropium 0.5 mg-albuterol 3 mg 3 ml inhalation QID PRN shortness 08/06/23 (2.5 mg base)/3 mL nebulization of breath or wheezing #90 mL soln bisoprolol fumarate 10 mg tablet See Rx Instructions .Route 08/09/23 .COMPLEX #60 tabs diltiazem HCl 240 mg See Rx Instructions .Route 08/09/23 capsule,extended release 24 hr .COMPLEX #90 caps sitagliptin phosphate 25 mg tablet See Rx Instructions .Route 08/13/23 (Januvia) .COMPLEX #30 tabs amitriptyline 25 mg tablet 25 mg PO HS #30 tabs 08/31/23 hydrocodone 10 mg-acetaminophen 1 tab PO Q4-6H PRN pain 30 days 08/31/23 325 mg tablet #150 tabs Allergies Allergy/AdvReac Type Severity Reaction Status Date / Time verapamil Allergy Severe Rash Verified 08/30/23 11:07 Iodine and Iodide Containing Allergy Mild Rash Verified 08/30/23 11:07 Produc Penicillins [PENICILLINS] Allergy Unknown I-RASH Verified 08/30/23 11:07 Sulfa (Sulfonamide Allergy Unknown NA-NAUSEA/V Verified 08/30/23 11:07 Antibiotics) OMITING [SULFA (SULFONAMIDE ANTIBIOTICS)] [facility] <Jann Gonzalez MD - Last Filed: 09/04/23 15:23> [facility] Disclaimer: The information contained in this section may have been updated after the patient was seen, as this information can be updated by other users. Medical History Acute exacerbation of chronic obstructive pulmonary disease Acute respiratory failure with hypoxia Allergic rhinitis Allergic rhinitis, unspecified Asthma Bronchiectasis, non-tuberculous Patient was a very heavy smoker. She is reducing her tobacco intake and wants to quit completely. I encouraged her on this see below. She is to continue her albuterol, ipratropium albuterol, and trilogy MDIs. CAD (coronary artery disease) Cardiac pacemaker in situ COPD (chronic obstructive pulmonary disease) COPD (chronic obstructive pulmonary disease) COPD (chronic obstructive pulmonary disease) I told this patient most pertinent thing she can do is to quit smoking. She is to continue her MDIs as described above in #1. COPD exacerbation COPD exacerbation Diabetes (~06/2020) Encounter for screening for malignant neoplasm of lung in current smoker with 30 pack year history or greater Family history of asthma Family history of asthma Fatigue HHD (hypertensive heart disease) History of 2019 novel coronavirus disease (COVID-19) History of 2019 novel coronavirus disease (COVID-19) History of asthma History of asthma Hyperlipemia On statin therapy PAF (paroxysmal atrial fibrillation) Pneumonia Recurrent pneumonia Stopped smoking with greater than 30 pack year history Stopped smoking with greater than 30 pack year history Surgical History History of arthroplasty of right knee History of cholecystectomy History of tonsillectomy Hx of cholecystectomy Hx of tonsillectomy Family History Other Cancer Coronary artery disease Diabetes Hyperlipidemia Hypertension Social History (Updated 08/06/23 @ 15:50 by Patricia Jean-Baptiste) Smoking Status: Current every day smoker tobacco type: cigarettes packs per day: 1 smoking status stop date: 09/12/2022 second hand exposure: Yes alcohol intake: never substance use type: denies use current occupational status: retired Travel in the last 8 weeks: None household members: none housing: house marital status: number of children: 0 current occupational exposures/hazards: No caffeine: Yes <Jann Gonzalez MD - Last Filed: 09/04/23 15:23> ROS Obtained: Yes All systems reviewed & no additional complaints except as documented Physical Exam <Jann Gonzalez MD - Last Filed: 09/04/23 15:23> General General appearance: alert and in no apparent distress Head Head exam: normocephalic and other (Complex defect to bridge of nose. Nasopharynx is visible concerning for bony and cartilaginous injury. Slow venous bleed.) Eye Eye exam: Present normal appearance, PERRL and EOMI ENT ENT exam: Present mucous membranes moist Neck Neck exam: Present normal inspection, full ROM and trachea midline; Absent tende rness Respiratory Respiratory exam: Present wheezes; Absent respiratory distress, stridor, accessory muscle use or prolonged expiratory phase Cardiovascular Cardiovascular exam: Present regular rate and normal rhythm Abdominal Exam Abdominal exam: Present soft; Absent distention, tenderness, guarding, rebound or rigidity Extremities Exam Extremities exam: Present other (Superficial skin tears on bilateral hands, no evidence of deformity.); Absent edema Neurological Exam Neurological exam: Present alert, oriented X3, CN II-XII intact and normal gait; Absent motor sensory deficit Skin Skin exam: Present warm and dry; Absent diaphoresis or erythema Medical Decision Making <Jann Gonzalez MD - Last Filed: 09/04/23 15:23> Medical Records Medical records reviewed: Yes I reviewed the patient's medical records. Anibal Inquiry Pt receiving controlled substance: No Anibal was queried for this patient: No Vital Signs: 09/04/23 14:41 09/04/23 14:45 09/04/23 15:00 Temperature 97.6 F Temperature Source Oral Pulse Rate 70 70 Pulse Rate [Left Radial] 70 Respiratory Rate 16 Blood Pressure 125/70 127/70 Blood Pressure [Right Arm] 125/70 Blood Pressure Mean Blood Pressure Mean [Right Arm] 88 02 Sat by Pulse Oximetry 92 L 91 L 90 L Oxygen Delivery Method Room Air Room Air Room Air 09/04/23 15:59 09/04/23 16:00 09/04/23 16:11 Temperature Temperature Source Pulse Rate 69 70 75 Pulse Rate [Left Radial] Respiratory Rate 18 Blood Pressure 139/66 130/68 130/68 Blood Pressure [Right Arm] Blood Pressure Mean 93 91 Blood Pressure Mean [Right Arm] 02 Sat by Pulse Oximetry 93 L 93 L 94 L Oxygen Delivery Method Room Air Room Air Lab Data Lab Results 09/04/23 14:52: WBC 10.9 H, RBC 5.58 H, Hgb 15.4, Hct 47.1 H, MCV 84.5, MCH 27.6, MCHC 32.7, RDW 17.7 H, Plt Count 199, MPV 10.0, Neut % (Auto) 60.9, Lymph % (Auto) 27.4, Rooks % (Auto) 6.3, Eos % (Auto) 3.9, Baso % (Auto) 1.5, Neut # (Auto) 6.7, Lymph # (Auto) 3.0, Rooks # (Auto) 0.7, Eos # (Auto) 0.4, Baso # (Auto) 0.2, PT 11.1, INR 1.03, APTT 28.3, Sodium 139, Potassium 4.9, Chloride 107, Carbon Dioxide 27, Anion Gap 9.9, BUN 20 H, Creatinine 1.10 H, Estimated Creat Clear 55, Estimated GFR 49 L, Est GFR ( Amer) 59, Glucose 142 H, Calcium 9.5, Total Bilirubin 0.5, AST 40 H, ALT 40, Alkaline Phosphatase 118, Total Protein 7.0, Albumin 4.2, Globulin 2.8, Albumin/Globulin Ratio 1.5 09/04/23 14:52 09/04/23 14:52 Orders (Tests/Meds): ED MEDICATIONS Discontinued Medications Generic Name Dose Route Start Last Admin Trade Name Freq PRN Reason Stop Dose Admin Acetaminophen 1,000 mg 09/04/23 15:20 09/04/23 15:41 Acetaminophen 1,000mg/100ml Vial IV 09/04/23 15:21 1,000 mg ONCE ONE Administration Ketorolac Tromethamine 15 mg 09/04/23 15:20 09/04/23 15:42 Ketorolac 30mg/Ml Vial IV 09/04/23 15:21 15 mg ONCE ONE Administration Tetanus/Reduced Diphtheria/Acell Pertussis 0.5 ml 09/04/23 15:31 09/04/23 16:18 Tet/Diphth/Pert-Adult 0.5ml Syringe IM 09/04/23 15:32 0.5 ml .ONCE ONE Administration Tranexamic Acid 1,000 mg 09/04/23 16:30 Tranexamic Acid 1,000 Mg/10 Ml Vial TP 09/04/23 16:31 ONCE ONE ORDERS Category Date Time Status CT cervical spine wo con Stat Cat Scan 09/04/23 14:[address] facial bones wo con Stat Cat Scan 09/04/23 14:[address] head/brain wo con Stat Cat Scan 09/04/23 14:53 Completed XR hand LT min 3V Stat Exams 09/04/23 14:53 Completed XR hand RT min 3V Stat Exams 09/04/23 14:53 Completed CBC w/Auto Diff [Complete Blood Count Auto Diff] Stat Lab 09/04/23 14:52 Completed CMP [Comprehensive Metabolic Panel] Stat Lab 09/04/23 14:52 Completed PT INR [Prothrombin Time INR] Stat Lab 09/04/23 14:52 Completed PTT [Activated Partial Thrombo Time] Stat Lab 09/04/23 14:52 Completed Medical Decision Narrative: 68-year-old for no history hypertension, hyperlipidemia, diabetes, CAD, COPD not currently on home oxygen presenting with fall. Patient was walking down steps and she fell approximately 4-5 steps onto her face. Caught her self on her hands, but did strike her nose. Patient states she lost consciousness. Not having neck or back pain, alert and oriented on arrival. Complaining of facial pain, no vision complaints. Not currently on anticoagulatio. History was obtained via conversation with patient, EMS. On arrival, patient hemodynamically stable, alert, oriented x4, appropriate, GCS 15, moving all extremities spontaneously, pupils equal and reactive to light. F ull physical exam performed and significant for complex skin defect overlying bridge of nose. Patient does have active venous bleed slowly. Pupils equal and reactive, no evidence of ocular involvement. No neck tenderness, the patient was placed in cervical collar. Also has bilateral skin tears on hands but no obvious deformity. Neurovascular intact. Differential includes intracranial bleed, skull fracture, nasal bone fracture, retained soft tissue foreign body, cervical spine fracture, among others Patient was given Toradol and acetaminophen IV for symptomatic management and correction of underlying abnormalities. Labs and imaging pending at time of handoff to oncoming physician. <Sujata Toney, DO - Last Filed: 09/04/23 16:43> Vital Signs: 09/04/23 14:41 09/04/23 14:45 09/04/23 15:00 Temperature 97.6 F Temperature Source Oral Pulse Rate 70 70 Pulse Rate [Left Radial] 70 Respiratory Rate 16 Blood Pressure 125/70 127/70 Blood Pressure [Right Arm] 125/70 Blood Pressure Mean Blood Pressure Mean [Right Arm] 88 02 Sat by Pulse Oximetry 92 L 91 L 90 L Oxygen Delivery Method Room Air Room Air Room Air 09/04/23 15:59 09/04/23 16:00 09/04/23 16:11 Temperature Temperature Source Pulse Rate 69 70 75 Pulse Rate [Left Radial] Respiratory Rate 18 Blood Pressure 139/66 130/68 130/68 Blood Pressure [Right Arm] Blood Pressure Mean 93 91 Blood Pressure Mean [Right Arm] 02 Sat by Pulse Oximetry 93 L 93 L 94 L Oxygen Delivery Method Room Air Room Air Lab Data Lab Results 09/04/23 14:52: WBC 10.9 H, RBC 5.58 H, Hgb 15.4, Hct 47.1 H, MCV 84.5, MCH 27.6, MCHC 32.7, RDW 17.7 H, Plt Count 199, MPV 10.0, Neut % (Auto) 60.9, Lymph % (Auto) 27.4, Rooks % (Auto) 6.3, Eos % (Auto) 3.9, Baso % (Auto) 1.5, Neut # (Auto) 6.7, Lymph # (Auto) 3.0, Rooks # (Auto) 0.7, Eos # (Auto) 0.4, Baso # (Auto) 0.2, PT 11.1, INR 1.03, APTT 28.3, Sodium 139, Potassium 4.9, Chloride 107, Carbon Dioxide 27, Anion Gap 9.9, BUN 20 H, Creatinine 1.10 H, Estimated Creat Clear 55, Estimated GFR 49 L, Est GFR ( Amer) 59, Glucose 142 H, Calcium 9.5, Total Bilirubin 0.5, AST 40 H, ALT 40, Alkaline Phosphatase 118, Total Protein 7.0, Albumin 4.2, Globulin 2.8, Albumin/Globulin Ratio 1.5 Orders (Tests/Meds): ED MEDICATIONS Discontinued Medications Generic Name Dose Route Start Last Admin Trade Name Freq PRN Reason Stop Dose Admin Acetaminophen 1,000 mg 09/04/23 15:20 09/04/23 15:41 Acetaminophen 1,000mg/100ml Vial IV 09/04/23 15:21 1,000 mg ONCE ONE Administration Ketorolac Tromethamine 15 mg 09/04/23 15:20 09/04/23 15:42 Ketorolac 30mg/Ml Vial IV 09/04/23 15:21 15 mg ONCE ONE Administration Tetanus/Reduced Diphtheria/Acell Pertussis 0.5 ml 09/04/23 15:31 09/04/23 16:18 Tet/Diphth/Pert-Adult 0.5ml Syringe IM 09/04/23 15:32 0.5 ml .ONCE ONE Administration Tranexamic Acid 1,000 mg 09/04/23 16:30 Tranexamic Acid 1,000 Mg/10 Ml Vial TP 09/04/23 16:31 ONCE ONE ORDERS Category Date Time Status CT cervical spine wo con Stat Cat Scan 09/04/23 14:[address] facial bones wo con Stat Cat Scan 09/04/23 14:[address] head/brain wo con Stat Cat Scan 09/04/23 14:53 Completed XR hand LT min 3V Stat Exams 09/04/23 14:53 Completed XR hand RT min 3V Stat Exams 09/04/23 14:53 Completed CBC w/Auto Diff [Complete Blood Count Auto Diff] Stat Lab 09/04/23 14:52 Completed CMP [Comprehensive Metabolic Panel] Stat Lab 09/04/23 14:52 Completed PT INR [Prothrombin Time INR] Stat Lab 09/04/23 14:52 Completed PTT [Activated Partial Thrombo Time] Stat Lab 09/04/23 14:52 Completed Medical Decision Narrative: 68-year-old for no history hypertension, hyperlipidemia, diabetes, CAD, COPD not currently on home oxygen presenting with fall. Patient was walking down steps and she fell approximately 4-5 steps onto her face. Caught her self on her hands, but did strike her nose. Patient states she lost consciousness. Not having neck or back pain, alert and oriented on arrival. Complaining of facial pain, no vision complaints. Not currently on anticoagulatio. History was obtained via conversation with patient, EMS. On arrival, patient hemodynamically stable, alert, oriented x4, appropriate, GCS 15, moving all extremities spontaneously, pupils equal and reactive to light. Full physical exam performed and significant for complex skin defect overlying bridge of nose. Patient does have active venous bleed slowly. Pupils equal and reactive, no evidence of ocular involvement. No neck tenderness, the patient was placed in cervical collar. Also has bilateral skin tears on hands but no obvious deformity. Neurovascular intact. Differential includes intracranial bleed, skull fracture, nasal bone fracture, retained soft tissue foreign body, cervical spine fracture, among others Patient was given Toradol and acetaminophen IV for symptomatic management and correction of underlying abnormalities. Labs and imaging pending at time of h andoff to oncoming physician. DO Feng: My assessment of the patient, she is neurologically intact and has reassuring vital signs on cardiac telemetry with exception of very mild hypoxia in the setting of chronic COPD. She was placed on 2 L nasal cannula. She has a very deep complex laceration to the nose with bubbling from the wound and it probes deep. Oozing noted, so TXA soaked gauze was applied. Tdap booster administered. Given her wound, I feel she would benefit from transfer for face evaluation. She is agreeable. I had an interactive discussion with Dr. Blair at [facility] who accepted the patient for transfer. She was transported to via EMS for further evaluation. She left in stable condition. Critical Care <Jann Gonzalez MD - Last Filed: 09/04/23 15:23> Critical Care Time Critical Care Time: No
[2023-09-04 15:19] LABS: Activated Partial Thrombo Time 28.3 seconds (22.8-30.6); INR 1.03 (0.9-1.1); Prothrombin Time 11.1 seconds (10.1-12.5)
--- NOTE | 2023-09-04 15:32 | PC.NURSE ---
pt returned from CT
[2023-09-04] MEDS: ACETAMINOPHEN 1,000MG/100ML VIAL 1000 MG IV (15:41)
[2023-09-04] MEDS: KETOROLAC 30MG/ML VIAL 15 MG IV (15:42)
[2023-09-04] MEDS: TET/DIPHTH/PERT-ADULT 0.5ML SYRINGE 0.5 ML IM (16:18)
--- NOTE | 2023-09-04 16:28 | PC.NURSE ---
[facility] called for trauma transfer, dr sanchez spoke with Y[facility]
--- NOTE | 2023-09-04 16:30 | PC.NURSE ---
Dr. Toney speaking with [facility] center at this time.
[2023-09-04] MEDS: TRANEXAMIC ACID 1,000 MG/10 ML VIAL 1000 MG TP (16:36)
--- NOTE | 2023-09-04 16:54 | PC.NURSE ---
pt's sister updated via phone per pt's request
== END 2023-09-04 17:27 | disposition short-term general hospital (02) ==
PROVIDERS: Emergency Medicine; Emergency Provider Emergency Medicine
DX: S02.2XXB Fracture of nasal bones, initial encounter for open fracture (principal); I11.9 Hypertensive heart disease without heart failure; E78.5 Hyperlipidemia, unspecified; E11.9 Type 2 diabetes mellitus without complications; I25.10 Atherosclerotic heart disease of native coronary artery without angina pectoris; J44.9 Chronic obstructive pulmonary disease, unspecified; I48.0 Paroxysmal atrial fibrillation; F17.200 Nicotine dependence, unspecified, uncomplicated; W10.8XXA Fall (on) (from) other stairs and steps, initial encounter
CPT/HCPCS: 70450; 70486; 72125; 73130; 80053; 85025; 85610; 85730; 90471; 90715; 96374; 96375; 99285; J0131

== ENCOUNTER 2023-10-16 12:37 | Outpatient (CLI) | payer MEDICARE, MEDICAID, SELFPAY ==
--- NOTE | 2023-10-16 12:46 | XR_ITS ---
FINAL REPORT CLINICAL HISTORY: right wrist pain-- pt has nodule ant wrist-- seen on lat view COMPARISON: 09/04/2023 FINDINGS: AP, oblique, and lateral views of the right wrist were obtained. There is a subacute fracture of the proximal fifth metacarpal, which was seen on the prior plain films of 09/04/2023. There is now callus formation present at the fracture site. Mild degenerative changes present. The soft tissues are normal. IMPRESSION: Subacute fracture of the proximal fifth metacarpal with callus formation as described. Reviewed, Interpreted and Dictated by Vickey Christianson III, MD Transcribed by Cherrie Dumont Authenticated and [facility]
== END 2023-10-16 23:59 ==
PROVIDERS: PCP Internal Medicine; Visit Provider Orthopaedic Surgery
DX: M25.531 Pain in right wrist (principal)
CPT/HCPCS: 73110

== ENCOUNTER 2023-10-31 18:41 | Outpatient (CLI) | payer MEDICARE, MEDICAID, SELFPAY ==
[2023-10-31 18:14] LABS: Basophils # 0.2 K/mm3 (0-0.2); Basophils % 1.3 % (0.1-2.0); Eosinophils # 0.5 K/mm3 (0.0-0.4); Eosinophils % 4.5 % (0.1-12.0); Hematocrit 49.1 % (37.0-47.0); Hemoglobin 14.9 g/dL (12.2-16.2); Lymphocytes # 3.1 K/mm3 (0.7-4.5); Lymphocytes % 26.6 % (10-50); Mean Corpuscular HGB Conc 30.4 g/dL (31.8-35.4); Mean Corpuscular Hemoglobin 27.7 pg (27.0-31.2); Mean Corpuscular Volume 91.1 fl (81-99); Mean Platelet Volume 9.8 fl (7.4-10.4); Monocytes # 0.6 K/mm3 (0.1-1.0); Monocytes % 5.6 % (1.7-9.3); Neutrophils # 7.1 K/mm3 (1.8-7.8); Platelet Count 193 K/mm3 (142-424); Red Blood Count 5.39 M/mm3 (4.20-5.40); Red Cell Distribution Width 16.1 % (11.5-17.5); White Blood Count 11.4 K/mm3 (4.8-10.8)
[2023-10-31 18:32] LABS: Chloride 109 mmol/L (98-107); Sodium 141 mmol/L (136-145)
[2023-10-31 18:35] LABS: Alanine Aminotransferase 35 U/L (12-78); Albumin Level 4.1 g/dl (3.5-5.0); Albumin/Globulin Ratio 1.6 (1.1-1.8); Alkaline Phosphatase 122 U/L (38-126); Aspartate Amino Transferase 32 U/L (14-36); Bilirubin,Total 0.5 mg/dl (0.2-1.3); Blood Urea Nitrogen 22 mg/dl (7-17); Carbon Dioxide 27 mmol/L (22.0-30.0); Estimated Glomerular Filt Rate 55 ml/min (>60); GFR (African American) 66 ML/MIN (>60); Globulin 2.6 g/dL (1.3-3.2); Total Protein,Serum 6.7 g/dl (6.3-8.2)
[2023-10-31 18:36] LABS: Calcium 9.8 mg/dl (8.4-10.2); Glucose 99 mg/dl (74-100)
== END 2023-10-31 23:59 ==
PROVIDERS: PCP Internal Medicine; Visit Provider Internal Medicine
DX: E11.9 Type 2 diabetes mellitus without complications (principal); E66.9 Obesity, unspecified; Z68.32 Body mass index [BMI] 32.0-32.9, adult; Z79.4 Long term (current) use of insulin; Z79.84 Long term (current) use of oral hypoglycemic drugs
CPT/HCPCS: 80053; 83036; 85025

== ENCOUNTER 2024-01-03 18:00 | Outpatient (CLI) | payer MEDICARE, MEDICAID, SELFPAY ==
[2024-01-03 18:37] LABS: Hemoglobin A1C 7.8 % (4.0-6.0)
[2024-01-03 18:41] LABS: Chloride 104 mmol/L (98-107); Potassium 5.4 mmoL/L (3.5-5.1); Sodium 139 mmol/L (136-145)
[2024-01-03 18:43] LABS: Blood Urea Nitrogen 18 mg/dl (7-17); Estimated Glomerular Filt Rate 49 ml/min (>60); GFR (African American) 59 ML/MIN (>60)
[2024-01-03 18:44] LABS: Alanine Aminotransferase 32 U/L (12-78); Albumin Level 4.1 g/dl (3.5-5.0); Albumin/Globulin Ratio 1.6 (1.1-1.8); Alkaline Phosphatase 125 U/L (38-126); Anion Gap 14.4 mEq/L (5-15); Aspartate Amino Transferase 26 U/L (14-36); Bilirubin,Total 0.4 mg/dl (0.2-1.3); Calcium 9.6 mg/dl (8.4-10.2); Carbon Dioxide 26 mmol/L (22.0-30.0); Chol/HDL Ratio 4.8 (1-3.5); Cholesterol 179 mg/dl (140-200); Globulin 2.6 g/dL (1.3-3.2); Glucose 121 mg/dl (74-100); HDL Cholesterol 37 mg/dl (40-60); Total Protein,Serum 6.7 g/dl (6.3-8.2); Triglycerides 178 mg/dl (30-150); VLDL Cholesterol 36 mg/dL (0-40)
[2024-01-03 18:55] LABS: Direct LDL Cholesterol 117.99 mg/dL (100-129)
== END 2024-01-03 23:59 | disposition home or self-care (01) ==
LOC: LAB.DROPOF 01-04 07:32
PROVIDERS: PCP Internal Medicine; Visit Provider Internal Medicine
DX: R53.83 Other fatigue (principal); R73.09 Other abnormal glucose; E78.5 Hyperlipidemia, unspecified
CPT/HCPCS: 80053; 80061; 83036

== ENCOUNTER 2024-04-15 10:13 | Day surgery (SDC) | payer MEDICARE, MEDICAID, SELFPAY ==
--- NOTE | 2024-04-15 07:00 | IR_ITS ---
APPROVED REPORT Patient Location: Outpatient Hydrometallurgical Engineer: TERRANCE Caceres RT (R) PROCEDURES Placement of a ventricular sensing and pacing coil in the right ventricular apex. Capping of chronic right ventricular sensing and pacing lead. Pocket Revision Removal of old Pacemaker Implant of Permanent Pacemaker INDICATION End of Battery Life, Right Ventricular sensing and pacing lead noise. Informed consent was obtained prior to the procedure. COMPLICATIONS NONE Estimated Blood Loss: LESS THAN 10 ML TECHNIQUE 1% lidocaine with epinephrine used to anesthetize the left anterior aspect of the chest. Scalpel was used to make the initial cutaneous incision and then used to dissect down to the existing pacemaker generator. The generator was removed from the existing pocket. Digital manipulation was required along with intermittent usage of scalpel in order to revise the pocket. The leads were removed from the old generator. The chronic right ventricular lead was capped. The patient was then placed in Trendelenburg position and the subclavian vein was accessed once via the Selinger technique, A 6 Tamazight sheath was placed under fluoroscopic guidance into the subclavian vein over the wire. The dilator was removed from the sheath. Using fluoroscopic guidance, the ventricular lead was placed into the right ventricular apex, screwed and secured into place. Electronic interrogation proved acceptable thresholds and voltage within the lead. Using 3-0 silk, the ventricular lead was then secured into place. Lead was secured to the facia using the 3-0 silk. The new generator was screwed to the existing leads and secured into place. Electronic interrogation proved acceptable thresholds and voltage within the leads. Antibiotics were used to flush the pocket and the pacemaker was secured using 3-0 silk into the newly revised pocket. Monocryl was used to close the subcutaneous tissue and then ada were placed on the cutaneous area in order to approximate the incision. Patient was transferred to the postop holding area in stable condition. INTERROGATION Explanted Generator Model number: 2240 Explanted Generator Serial number: [id number] Implant date: 03/31/2014 Implanted Generator Model number: Assurity MRI, [id number] Implanted Generator Serial number: [id number] Chronic Atrial lead model number: 2088TC, 46cm Atrial lead serial number: [id number] Implant date: 03/31/2014 P-wave: 2.5mV Impedance: 510 ohms Threshold: 1.125V@0.4ms Capped Right Ventricular lead model number: 2088TC, 52cm Right Ventricular lead serial number: [id number] Implant date: 03/31/2014 New Right Ventricular lead model number: Tendril STS 58cm, 2087TC Right Ventricular lead serial number: [id number] R-wave: 11.8mV Impedance: 710 ohms Threshold: 0.75V@0.4ms Pacing Parameters: Mode: DDDR Base/Max Track: 70 ppm / 120 ppm No diaphragmatic stimulation at 10 volts. IMPRESSION Successful Placement of a ventricular sensing and pacing coil in the right ventricular apex. Successful Capping of chronic right ventricular sensing and pacing lead. Successful Pocket Revision Successful Removal of old Pacemaker Successful Implant of Permanent Pacemaker PLAN 1. Postop wound care. Electronically signed by : Harsh Bonner MD 04/15/2024 16:05:15
[2024-04-15 10:19] VITALS: BMI 32.5
[2024-04-15 10:38] LABS: Chloride 107 mmol/L (98-107); Potassium 4.4 mmoL/L (3.5-5.1); Sodium 140 mmol/L (136-145)
[2024-04-15 10:41] LABS: Anion Gap 4.4 mEq/L (5-15); Blood Urea Nitrogen 16 mg/dl (7-17); Calcium 9.2 mg/dl (8.4-10.2); Carbon Dioxide 33 mmol/L (22.0-30.0); Creatinine Clearance Estimated 87 mL/min (50-200); Estimated Glomerular Filt Rate 62 ml/min (>60); GFR (African American) 75 ML/MIN (>60); Glucose 121 mg/dl (74-100)
[2024-04-15 10:42] LABS: Basophils # 0.1 K/mm3 (0-0.2); Basophils % 0.9 % (0.1-2.0); Eosinophils # 0.4 K/mm3 (0.0-0.4); Eosinophils % 3.5 % (0.1-12.0); Hematocrit 50.6 % (37.0-47.0); Hemoglobin 15.1 g/dL (12.2-16.2); Lymphocytes # 2.2 K/mm3 (0.7-4.5); Lymphocytes % 20.1 % (10-50); Mean Corpuscular HGB Conc 29.9 g/dL (31.8-35.4); Mean Corpuscular Hemoglobin 27.9 pg (27.0-31.2); Mean Corpuscular Volume 93.4 fl (81-99); Mean Platelet Volume 8.7 fl (7.4-10.4); Monocytes # 0.5 K/mm3 (0.1-1.0); Monocytes % 4.9 % (1.7-9.3); Neutrophils # 7.7 K/mm3 (1.8-7.8); Neutrophils % 70.7 % (37.0-80.0); Platelet Count 192 K/mm3 (142-424); Red Blood Count 5.41 M/mm3 (4.20-5.40); Red Cell Distribution Width 15.2 % (11.5-17.5); White Blood Count 10.9 K/mm3 (4.8-10.8)
--- NOTE | 2024-04-15 11:30 | SUR.PREOP ---
Registration called in regars to patient back from lab and waiting to come to get prepped for surgery, notified reg. to let the patient know we had an emergency and will be out to get her soon.
[2024-04-15 11:56] VITALS: BP 131/78; PULSE 70; RESP 18; TEMP 36.1; O2SAT 93
--- NOTE | 2024-04-15 12:36 | P.PNANES_ITS ---
[facility] Disclaimer: The information contained in this section may have been updated after the patient was seen, as this information can be updated by other users. Medical History Pre-operative cardiovascular examination Pacemaker lead malfunction Pacemaker at end of battery life Vulvar cyst Candidal intertrigo Bronchiectasis, non-tuberculous COPD (chronic obstructive pulmonary disease) Acute exacerbation of chronic obstructive pulmonary disease Stopped smoking with greater than 30 pack year history History of asthma Family history of asthma Allergic rhinitis, unspecified History of 2019 novel coronavirus disease (COVID-19) COPD (chronic obstructive pulmonary disease) Acute respiratory failure with hypoxia Pneumonia COPD exacerbation Encounter for screening for malignant neoplasm of lung in current smoker with 30 pack year history or greater Stopped smoking with greater than 30 pack year history History of asthma Family history of asthma Allergic rhinitis History of 2019 novel coronavirus disease (COVID-19) COPD exacerbation Hyperlipemia PAF (paroxysmal atrial fibrillation) COPD (chronic obstructive pulmonary disease) On statin therapy Diabetes (~06/2020) Cardiac pacemaker in situ Fatigue HHD (hypertensive heart disease) Surgical History History of tonsillectomy History of cholecystectomy Hx of tonsillectomy History of arthroplasty of right knee Hx of cholecystectomy Family History Other Cancer Coronary artery disease Diabetes Hyperlipidemia Hypertension Social History Smoking Status: Current every day smoker tobacco type: cigarettes packs per day: 1 smoking status stop date: 09/12/2022 second hand exposure: Yes alcohol intake: never substance use type: denies use current occupational status: retired Travel in the last 8 weeks: None household members: none housing: house marital status: number of children: 0 current occupational exposures/hazards: No caffeine: Yes [facility] Anesthesia Checklist Patient Identification Patient Identification: Arm Band and Verbal (Name & ) Structural Data Admitted From: Home Planned Operative Procedure/s: Lead revision Consent for Planned Operative Procedure(s) Verified: Yes Verified Documents: Surgical Consent and History and Physical NPO Status Verified Time NPO: 00:00 Chart Verification Results Verified: CBC and BMP Additional verifications Anesthesia Reactions: No Hx Blood Transfusions: No Blood Transfusion Reaction: No Respiratory Assessment Bilateral Throughout: Breath Sounds: Audible Wheezes Airway Assessment Mallampati Score:: Class II C-Spine Mobility Assessed: Yes TMJ Mobility Assessed: Yes Dentition: Dentures-poor fitting (Removed) Neurological Assessment Level of Consciousness: Awake Hx Seizures: No Numbness or tingling in extremities: No Anesthesia Plan Anesthesia Risk discussed: Yes Anesthesia Plan: Verified ASA Class: III Anesthesia Type: MAC
[2024-04-15] MEDS: CLINDAMYCIN PHOSPHATE 900 MG in 0.9 % SODIUM CHLORIDE 100 ML 100 MG TP (14:10)
[2024-04-15] MEDS: CLINDAMYCIN PHOSPHATE/D5W 900 MG/50 ML PIGGYBACK 100 MG IV (14:10)
[2024-04-15] MEDS: 0.9 % SODIUM CHLORIDE 1000ML 1,000 ML 25 ML IV (14:11)
[2024-04-15] MEDS: LIDOCAINE 1% W/EPI 1:100,000 20ML VIAL 20 ML SQ (14:11)
[2024-04-15 15:10] VITALS: BP 133/79; PULSE 70; RESP 18; O2SAT 100
--- NOTE | 2024-04-15 15:12 | XR_ITS ---
FINAL REPORT CLINICAL HISTORY: post lead revision COMPARISON: 06/04/2023 FINDINGS: The heart size is normal. A left subclavian pacer is identified. There are skin ada associated with a generator, which are consistent with recent pacemaker replacement. The mediastinum is normal. There is chronic scarring at the lung bases. There are no pleural effusions. There is no pneumothorax. There is no osseous abnormality. IMPRESSION: No acute cardiopulmonary process. Changes related to recent pacemaker replacement. Reviewed, Interpreted and Dictated by Williams Travis MD Transcribed by Willow Woodall Authenticated and [facility]
[2024-04-15 15:25] VITALS: BP 138/68; PULSE 70; RESP 18; O2SAT 100
[2024-04-15 15:40] VITALS: BP 140/86; PULSE 70; RESP 18; O2SAT 100
[2024-04-15 16:21] VITALS: BP 118/67; PULSE 70; RESP 20; O2SAT 90
== END 2024-04-15 16:50 | disposition home or self-care (01) ==
PROVIDERS: PCP Internal Medicine; Visit Provider Internal Medicine
DX: T82.110A Breakdown (mechanical) of cardiac electrode, initial encounter (principal); Z45.010 Encounter for checking and testing of cardiac pacemaker pulse generator [battery]
CPT/HCPCS: 36415; 71045; 80048; 85025; C1785; C1898; J2250; J3010; J7030

== ENCOUNTER 2024-04-17 12:20 | Inpatient (IN) | payer MEDICARE, MEDICAID, SELFPAY ==
[2024-04-17] VITALS (11 sets, daily range): BP systolic 105–141; BP diastolic 50–69; PULSE 70–83; RESP 19–22; TEMP 36.5–36.8; O2SAT 90–97; BMI 29.9; BMI 31.0
--- NOTE | 2024-04-17 12:22 | HMH.EDGENADL ---
Discharge Plan Disposition Chief Complaint: Shortness of Breath/Dyspnea Prescriptions Prescriptions: No Action fluticasone propionate 50 mcg/actuation spray,suspension See Rx Instructions .ROUTE .COMPLEX Qty: 16 2RF Dose Instruction: instill 1 SPRAY IN EACH NOSTRIL EVERY DAY Rx Instructions: instill 1 SPRAY IN EACH NOSTRIL EVERY DAY Jardiance 25 mg tablet 25 mg PO DAILY 90 Days Qty: 90 4RF gabapentin 800 mg tablet See Rx Instructions .ROUTE .COMPLEX Qty: 60 1RF Dose Instruction: TAKE ONE TABLET BY MOUTH TWICE DAILY FOR neuropathic pain MAY CAUSE DROWSINESS Rx Instructions: TAKE ONE TABLET BY MOUTH TWICE DAILY FOR neuropathic pain MAY CAUSE DROWSINESS hydrocodone-acetaminophen 10-325 mg tablet 1 tab PO Q4-6H PRN (Reason: pain) Qty: 150 0RF (DME) lancets [TRUEplus Lancets] 33 gauge misc See Rx Instructions .ROUTE .MEDSUPPLY Qty: 100 Patient Comments: USE DIRECTED TO TEST BLOOD GLUCOSE LEVEL TWICE DAILY Rx Instructions: As directed insulin glargine [Basaglar KwikPen U-100 Insulin] 100 unit/mL (3 mL) insulin pen 30 unit SQ BID budesonide 0.5 mg/2 mL suspension for nebulization 0.5 mg inhalation Q12H Qty: 180 3RF ipratropium-albuterol 0.5 mg-3 mg(2.5 mg base)/3 mL solution for nebulization 3 ml inhalation Q8H 90 Days Qty: 540 3RF albuterol sulfate 0.63 mg/3 mL solution for nebulization 0.63 mg inhalation QID PRN (Reason: shortness of breath or wheezing) Qty: 270 3RF (DME) Dexcom G6 Sensor Device See Rx Instructions .ROUTE .MEDSUPPLY Qty: 1 3RF Rx Instructions: As directed (DME) Dexcom G6 [employer] Misc See Rx Instructions .ROUTE .MEDSUPPLY Qty: 1 0RF Rx Instructions: As directed (DME) Dexcom G6 Transmitter Device See Rx Instructions .ROUTE .MEDSUPPLY Qty: 1 0RF Rx Instructions: As directed atorvastatin 80 mg tablet 80 mg PO DAILY Qty: 30 2RF clotrimazole 1 % cream 1 applic topical BID 28 Days Qty: 30 0RF ondansetron 4 mg tablet,disintegrating See Rx Instructions .ROUTE .COMPLEX Qty: 30 0RF Dose Instruction: DISSOLVE ONE TABLET IN MOUTH EVERY 8 HOURS NEEDED FOR NAUSEA AND VOMITING Rx Instructions: DISSOLVE ONE TABLET IN MOUTH EVERY 8 HOURS NEEDED FOR NAUSEA AND VOMITING diltiazem HCl 240 mg capsule,extended release 24hr See Rx Instructions .ROUTE .COMPLEX Qty: 90 3RF Dose Instruction: TAKE ONE CAPSULE BY MOUTH EVERY DAY FOR heart Rx Instructions: TAKE ONE CAPSULE BY MOUTH EVERY DAY FOR heart Xarelto 20 mg tablet See Rx Instructions .ROUTE .COMPLEX Qty: 90 3RF Dose Instruction: TAKE ONE TABLET BY MOUTH EVERY DAY with evening meal Rx Instructions: TAKE ONE TABLET BY MOUTH EVERY DAY with evening meal lisinopril 2.5 mg tablet 2.5 mg PO HS Qty: 90 3RF magnesium oxide 400 mg (241.3 mg magnesium) tablet See Rx Instructions .ROUTE .COMPLEX Qty: 270 5RF Dose Instruction: TAKE ONE TABLET BY MOUTH THREE TIMES DAILY OR DIRECTED Rx Instructions: TAKE ONE TABLET BY MOUTH THREE TIMES DAILY OR DIRECTED (DME) Easy Touch Test Strip Strip See Rx Instructions .ROUTE .COMPLEX Qty: 100 3RF Dose Instruction: USE TO test blood glucose THREE TIMES DAILY DIRECTED Rx Instructions: USE TO test blood glucose THREE TIMES DAILY DIRECTED (DME) pen needle, diabetic [BD Ultra-Fine Micro Pen Needle] 32 gauge x 1/4 needle See Rx Instructions .ROUTE .COMPLEX Qty: 100 6RF Dose Instruction: USE DIRECTED DAILY with insulin pen injections Rx Instructions: USE DIRECTED DAILY with insulin pen injections metformin 500 mg tablet See Rx Instructions .ROUTE .COMPLEX Qty: 120 2RF Dose Instruction: TAKE TWO TABLETS BY MOUTH TWICE DAILY Rx Instructions: TAKE TWO TABLETS BY MOUTH TWICE DAILY bisoprolol fumarate 10 mg tablet See Rx Instructions .ROUTE .COMPLEX Qty: 60 5RF Dose Instruction: TAKE ONE TABLET BY MOUTH TWICE DAILY FOR BLOOD PRESSURE Rx Instructions: TAKE ONE TABLET BY MOUTH TWICE DAILY FOR BLOOD PRESSURE pantoprazole 40 mg tablet,delayed release (DR/EC) See Rx Instructions .ROUTE .COMPLEX Qty: 90 3RF Dose Instruction: TAKE ONE TABLET BY MOUTH EVERY DAY Rx Instructions: TAKE ONE TABLET BY MOUTH EVERY DAY ropinirole 0.25 mg tablet See Rx Instructions .ROUTE .COMPLEX Qty: 90 0RF Dose Instruction: TAKE ONE TABLET BY MOUTH EVERY DAY AT BEDTIME FOR restless LEGS syndrome Rx Instructions: TAKE ONE TABLET BY MOUTH EVERY DAY AT BEDTIME FOR restless LEGS syndrome furosemide 40 mg tablet See Rx Instructions .ROUTE .COMPLEX Qty: 90 0RF Dose Instruction: TAKE ONE TABLET BY MOUTH EVERY DAY Rx Instructions: TAKE ONE TABLET BY MOUTH EVERY DAY fluoxetine 20 mg capsule See Rx Instructions .ROUTE .COMPLEX Qty: 180 0RF Dose Instruction: TAKE ONE CAPSULE BY MOUTH TWICE DAILY FOR mood Rx Instructions: TAKE ONE CAPSULE BY MOUTH TWICE DAILY FOR mood buspirone 10 mg tablet 10 mg PO BID Qty: 60 2RF montelukast 10 mg tablet See Rx Instructions .ROUTE .COMPLEX Qty: 90 3RF Dose Instruction: TAKE ONE TABLET BY MOUTH EVERY DAY AT BEDTIME FOR allergies Rx Instructions: TAKE ONE TABLET BY MOUTH EVERY DAY AT BEDTIME FOR allergies benzonatate 200 mg capsule 200 mg PO TID PRN (Reason: cough) Qty: 30 2RF albuterol sulfate 90 mcg/actuation HFA aerosol inhaler See Rx Instructions .ROUTE .COMPLEX Qty: 8.5 0RF Dose Instruction: INHALE TWO PUFFS BY MOUTH EVERY 6 HOURS NEEDED FOR SHORTNESS OF BREATH Rx Instructions: INHALE TWO PUFFS BY MOUTH EVERY 6 HOURS NEEDED FOR SHORTNESS OF BREATH cyclobenzaprine 5 mg tablet 5 mg PO BID PRN (Reason: muscle spasm) Qty: 15 0RF Referrals Follow up/Referrals: Eric Jacinto DO [Primary Care Provider] - See instructions Print Language Print Language: Upper Sorbian Discharge ED Provider: Sheng Daniels Adult HPI General Chief complaint: Shortness of Breath/Dyspnea Stated complaint: soa Time Seen by Provider: 04/17/24 12:22 History of Present Illness HPI narrative: The patient presents to the emergency department with a chief complaint of shortness of breath, which has been worsening over the past two weeks. She reports no recent exposure to sick individuals, but mentions a neighbor who has been visiting frequently. She denies any leg swelling or pain. She has a history of COPD and recently underwent a procedure to insert a new pacemaker lead on Sunday. She normally uses 2 liters per minute of oxygen at home while resting and sleeping. She reports feeling wheezy, especially during changes in weather and humidity. She has been using a nebulizer machine to help with symptoms, which helps to cough up secretions but can only be used every five to eight hours. She experiences difficulty sleeping at night due to discomfort in her arm. Her primary care physician and lung specialist have been in communication and advised her to visit the emergency department for further evaluation. She mentions that her doctor said she likely wouldn't be going home after this visit. Please note that above description of symptoms, in this electronic medical record under categorization of recalled from ER triage doctor by RN are reflective of an initial nursing assessment, however, is not reflective of my full history and physical exam that was personally taken and clarified. Consequentially, this preceding description of symptoms, which may include the patient's categorized chief complaint in the EMR, do not reflect my personal clinical impression, and the ultimate description of history of present illness and patient stated complaints should be deferred to this section of the note. Unless stated otherwise or congruent with this section of the note, additional signs, symptoms, or incongruence should be interpreted as inaccurate with my clinical impression. Related Data Home Medications ?Medication ?Instructions ?Recorded ?Confirmed insulin glargine 100 unit/mL (3 30 unit SQ BID 02/13/24 04/17/24 mL) subcutaneous pen (Basaglar KwikPen U-100 Insulin) lancets 33 gauge (TRUEplus Lancets) #100 ea 04/07/24 04/17/24 albuterol sulfate 90 mcg/actuation 2 puff inhalation Q6HP PRN 04/17/24 04/17/24 aerosol inhaler Shortness Of Breath benzonatate 200 mg capsule 200 mg PO TIDP PRN cough 04/17/24 04/17/24 bisoprolol fumarate 10 mg tablet 10 mg PO BID 04/17/24 04/17/24 diltiazem HCl 240 mg 240 mg PO DAILY 04/17/24 04/17/24 capsule,extended release 24 hr fluoxetine 20 mg capsule 20 mg PO BID 04/17/24 04/17/24 fluticasone propionate 50 1 spray intranasal DAILY 04/17/24 04/17/24 mcg/actuation nasal spray,suspension furosemide 40 mg tablet 40 mg PO DAILY 04/17/24 04/17/24 gabapentin 800 mg tablet 800 mg PO BID 04/17/24 04/17/24 hydrocodone 10 mg-acetaminophen 1 tab PO Q4HP PRN Moderate Pain 04/17/24 04/17/24 325 mg tablet (Scale Score 5-6) lisinopril 2.5 mg tablet 2.5 mg PO HS 04/17/24 04/17/24 magnesium oxide 400 mg (241.3 mg 400 mg PO BID 04/17/24 04/17/24 magnesium) tablet metformin 500 mg tablet 1,000 mg PO BID 04/17/24 04/17/24 montelukast 10 mg tablet 10 mg PO PM 04/17/24 04/17/24 pantoprazole 40 mg tablet,delayed 40 mg PO DAILY 04/17/24 04/17/24 release rivaroxaban 20 mg tablet (Xarelto) 20 mg PO QPMWITHMEAL 04/17/24 04/17/24 ropinirole 0.25 mg tablet 0.25 mg PO HS 04/17/24 04/17/24 Previous Rx's ?Medication ?Instructions ?Recorded blood sugar diagnostic (Easy Touch #100 strips 10/26/23 Test Strip) pen needle, diabetic 32 gauge x #100 ea 01/28/2408/02 (BD Ultra-Fine Micro Pen Needle) atorvastatin 80 mg tablet 80 mg PO DAILY #30 tabs 01/30/24 blood-glucose meter,continuous #1 ea 01/30/24 (Dexcom G6 [employer]) blood-glucose sensor (Dexcom G6 #1 ea 01/30/24 Sensor device) blood-glucose transmitter (Dexcom #1 ea 01/30/24 G6 Transmitter device) empagliflozin 25 mg tablet 25 mg PO DAILY 90 days #90 tabs 02/20/24 (Jardiance) buspirone 10 mg tablet 10 mg PO BID #60 tabs 03/05/24 Allergies Allergy/AdvReac Type Severity Reaction Status Date / Time verapamil Allergy Severe Rash Verified 04/17/24 15:25 Iodine and Iodide Containing Allergy Mild Rash Verified 04/17/24 15:25 Produc Penicillins [PENICILLINS] Allergy Unknown I-RASH Verified 04/17/24 15:25 Sulfa (Sulfonamide Allergy Unknown NA-NAUSEA/V Verified 04/17/24 15:25 Antibiotics) OMITING [SULFA (SULFONAMIDE ANTIBIOTICS)] [facility] Disclaimer: The information contained in this section may have been updated after the patient was seen, as this information can be updated by other users. Medical History Pre-operative cardiovascular examination Pacemaker lead malfunction Pacemaker at end of battery life Vulvar cyst Candidal intertrigo Bronchiectasis, non-tuberculous COPD (chronic obstructive pulmonary disease) Acute exacerbation of chronic obstructive pulmonary disease Stopped smoking with greater than 30 pack year history History of asthma Family history of asthma Allergic rhinitis, unspecified History of 2019 novel coronavirus disease (COVID-19) COPD (chronic obstructive pulmonary disease) Acute respiratory failure with hypoxia Pneumonia COPD exacerbation Encounter for screening for malignant neoplasm of lung in current smoker with 30 pack year history or greater Stopped smoking with greater than 30 pack year history History of asthma Family history of asthma Allergic rhinitis History of 2019 novel coronavirus disease (COVID-19) COPD exacerbation Hyperlipemia PAF (paroxysmal atrial fibrillation) COPD (chronic obstructive pulmonary disease) On statin therapy Diabetes (~06/2020) Cardiac pacemaker in situ Fatigue HHD (hypertensive heart disease) Surgical History History of tonsillectomy History of cholecystectomy Hx of tonsillectomy History of arthroplasty of right knee Hx of cholecystectomy Family History Other Cancer Coronary artery disease Diabetes Hyperlipidemia Hypertension Social History Smoking Status: Former smoker tobacco type: cigarettes packs per day: 1 smoking status stop date: 09/12/2022 second hand exposure: Yes alcohol intake: never substance use type: denies use current occupational status: retired Travel in the last 8 weeks: None household members: none housing: house marital status: number of children: 0 current occupational exposures/hazards: No caffeine: Yes ROS Obtained: Yes other As per HPI Physical Exam General General appearance: alert and in no apparent distress Head Head exam: atraumatic and normocephalic Eye Eye exam: Present normal appearance Neck Neck exam: Present normal inspection Chest Chest inspection: Present normal inspection and symmetric chest wall rise Respiratory Respiratory exam: Present wheezes, accessory muscle use and prolonged expiratory phase Cardiovascular Cardiovascular exam: Present regular rate and normal rhythm Abdominal Exam Abdominal exam: Present soft Neurological Exam Neurological exam: Present alert and oriented X3 Psychiatric Psychiatric exam: Present normal affect and normal mood Skin Skin exam: Present warm and dry Medical Decision Making Medical Records Medical records reviewed: Yes I reviewed the patient's medical records. Screening: Per USPSTF and CDC recommendations, given the prevalence of disease in our region, it is our hospital?s policy to screen for HIV and viral Hepatitis for all patients aged 18 and over and those with ongoing risk factors. Anibal Inquiry Pt receiving controlled substance: No Vital Signs: 04/17/24 12:21 04/17/24 12:38 04/17/24 13:01 Temperature 98.1 F Temperature Source Oral Pulse Rate 70 70 Pulse Rate [Right] 70 Respiratory Rate 22 Blood Pressure 118/53 L 113/63 Blood Pressure [Right Arm] 118/53 L Blood Pressure Mean [Right Arm] 74 02 Sat by Pulse Oximetry 94 L 94 L 95 Oxygen Delivery Method Nasal Cannula Nasal Cannula Nasal Cannula Oxygen Flow Rate (LPM) 4 4 4 04/17/24 14:01 04/17/24 14:30 04/17/24 15:00 Temperature Temperature Source Pulse Rate 70 70 70 Pulse Rate [Right] Respiratory Rate Blood Pressure 126/69 109/60 L 105/57 L Blood Pressure [Right Arm] Blood Pressure Mean [Right Arm] 02 Sat by Pulse Oximetry 93 L 95 97 Oxygen Delivery Method Nasal Cannula Nasal Cannula Oxygen Flow Rate (LPM) Lab Data Lab Results 04/17/24 12:24: VBG pH 7.30 L, VBG pCO2 56.5 H, VBG pO2 44.3 H, VBG HCO3 27.2, VBG Total CO2 28.9 H, VBG O2 Saturation 78.9 H, VBG Base Excess 0.8, VBG Lactic Acid 2.4 H 04/17/24 12:28: WBC 11.2 H, RBC 5.41 H, Hgb 15.3, Hct 50.2 H, MCV 92.8, MCH 28.3, MCHC 30.5 L, RDW 15.5, Plt Count 185, MPV 9.5, Neut % (Auto) 66.9, Lymph % (Auto) 22.0, Crosby % (Auto) 6.1, Eos % (Auto) 3.9, Baso % (Auto) 1.1, Neut # (Auto) 7.5, Lymph # (Auto) 2.5, Crosby # (Auto) 0.7, Eos # (Auto) 0.4, Baso # (Auto) 0.1, Sodium 144, Potassium 4.5, Chloride 110 H, Carbon Dioxide 31 H, Anion Gap 7.5, BUN 22 H D, Creatinine 1.00, Estimated Creat Clear 76, Estimated GFR 55 L, Est GFR ( Amer) 66, Glucose 145 H, Calcium 9.7, Magnesium 1.6, Total Bilirubin 0.4, AST 32, ALT 31, Alkaline Phosphatase 122, Troponin I < 0.01, NT-Pro-B Natriuret Pep 140 H, Total Protein 6.8, Albumin 4.2, Globulin 2.6, Albumin/Globulin Ratio 1.6 04/17/24 13:54: Chlamy pneumoniae PCR Not detected, Adenovirus (PCR) Not detected, B. pertussis DNA (PCR) Not detected, Coronavirus OC43 (PCR) Not detected, Coronavirus HKU1 (PCR) Not detected, Coronavirus 229E (PCR) Not detected, SARS-CoV-2 (PCR) Not detected, Coronavirus NL63 (PCR) Not detected, Human Metapneumovir PCR Not detected, Influenza A (H1) PCR Not detected, Influ A (H1N1/09) PCR Not detected, Influenza A (H3) PCR Not detected, Influenza Type A (PCR) Not detected, Influenza Type B (PCR) Not detected, M. pneumoniae (PCR) Not detected, Parainfluenza 1 (PCR) Not detected, Parainfluenza 2 (PCR) Not detected, Parainfluenza 3 (PCR) Not detected, Parainfluenza 4 (PCR) Not detected, RSV (PCR) Not detected, Entero/Rhino (PCR) Not detected 04/17/24 12:28 04/17/24 12:28 Orders (Tests/Meds): ED MEDICATIONS Generic Name Dose Route Start Last Admin Trade Name Freq PRN Reason Stop Dose Admin Acetaminophen 650 mg 04/17/24 15:07 Acetaminophen 325mg Tab PO 05/17/24 15:06 Q4HP PRN Fever or Mild Pain (1-3) Albuterol/Ipratropium 3 ml 04/17/24 15:07 Ipratropium/Albuterol 3 Ml [facility] 05/17/24 15:06 Q4HP PRN Shortness Of Breath Albuterol/Ipratropium 3 ml 04/17/24 18:00 Ipratropium/Albuterol 3 Ml [facility] 05/17/24 17:59 Q6RT HAJA Enoxaparin Sodium 40 mg 04/18/24 09:00 Enoxaparin 40mg/0.4ml Syringe SQ 05/18/24 08:59 DAILY HAJA Ceftriaxone Sodium 1 gm/ 50 mls @ 100 mls/hr 04/17/24 14:00 04/17/24 14:48 Sodium Chloride IV 04/27/24 13:59 100 mls/hr Q24H HAJA Administration Insulin Human Lispro 0 unit 04/17/24 16:30 Humalog 100 Units/Ml 10ml Vial (Ssi) SQ 05/17/24 16:29 ACHS HAJA Protocol Ondansetron HCl 4 mg 04/17/24 15:07 Ondansetron 4mg/2ml Vial IV 05/17/24 15:06 Q8HP PRN Nausea Sodium Chloride 10 ml 04/17/24 15:15 Sodium Chloride 0.9% 10ml Flush Syringe IV 05/17/24 15:14 NEEDED PRN Maintain IV Site Discontinued Medications Generic Name Dose Route Start Last Admin Trade Name Freq PRN Reason Stop Dose Admin Albuterol/Ipratropium 9 ml 04/17/24 14:23 04/17/24 14:37 Ipratropium/Albuterol 3 Ml Neb IH 04/17/24 14:24 9 ml ONCE ONE Administration Magnesium Sulfate 2 gm in 50 mls @ 50 mls/hr 04/17/24 13:38 04/17/24 13:51 Magnesium Sulfate 2gm/50ml Premix IV 04/17/24 14:37 50 mls/hr ONCE ONE Administration Azithromycin 500 mg/ Sodium 250 mls @ 250 mls/hr 04/17/24 13:50 04/17/24 14:09 Chloride IV 04/17/24 13:51 250 mls/hr ONCE ONE Administration Methylprednisolone Sodium Succinate 80 mg 04/17/24 13:38 04/17/24 13:51 Methylprednisolone Sod Succ 125mg Vial IV 04/17/24 13:39 80 mg ONCE ONE Administration ORDERS Category Date Time Status XR chest portable Stat Exams 04/17/24 13:38 Taken BNP [NT Pro Brain Natriuretic Pep.] Stat Lab 04/17/24 12:28 Completed Basic Metabolic Panel AMLAB Lab 04/18/24 06:00 Ordered CBC w/Auto Diff [Complete Blood Count Auto Diff] Stat Lab 04/17/24 12:28 Completed CMP [Comprehensive Metabolic Panel] Stat Lab 04/17/24 12:28 Completed Complete Blood Count Auto Diff AMLAB Lab 04/18/24 06:00 Ordered Full Resp Panel w/COVID ([facility]) Routine Lab 04/17/24 13:54 Completed HIV (1&2) Antibody Rapid Stat Lab 04/17/24 12:28 Received Hep C Ab with Reflex to RNA Stat Lab 04/17/24 12:28 Received MAG [Magnesium] Stat Lab 04/17/24 12:28 Completed Troponin I Q3H Lab 04/17/24 12:28 Completed Troponin I Q3H Lab 04/17/24 15:30 Ordered Blood Culture Stat Micro 04/17/24 13:56 Received VBG [Venous Blood Gas] Stat RT 04/17/24 12:24 Completed Medical Decision Narrative: Patient with history and exam per above presenting for evaluation of shortness of breath Diagnoses considered include COPD exacerbation, CHF exacerbation, ACS, low clinical index of suspicion for pulmonary embolism at this time given physical exam and history highly consistent with COPD exacerbation ED workup and treatment included: ED MEDICATIONS Generic Name Dose Route Start Last Admin Trade Name Freq PRN Reason Stop Dose Admin Acetaminophen 650 mg 04/17/24 15:07 Acetaminophen 325mg Tab PO 05/17/24 15:06 Q4HP PRN Fever or Mild Pain (1-3) Albuterol/Ipratropium 3 ml 04/17/24 15:07 Ipratropium/Albuterol 3 Ml Neb 05/17/24 15:06 Q4HP PRN Shortness Of Breath Albuterol/Ipratropium 3 ml 04/17/24 18:00 Ipratropium/Albuterol 3 Ml Neb 05/17/24 17:59 Q6RT HAJA Enoxaparin Sodium 40 mg 04/18/24 09:00 Enoxaparin 40mg/0.4ml Syringe SQ 05/18/24 08:59 DAILY HAJA Ceftriaxone Sodium 1 gm/ 50 mls @ 100 mls/hr 04/17/24 14:00 04/17/24 14:48 Sodium Chloride IV 04/27/24 13:59 100 mls/hr Q24H HAJA Administration Insulin Human Lispro 0 unit 04/17/24 16:30 Humalog 100 Units/Ml 10ml Vial (Ssi) SQ 05/17/24 16:29 ACHS HAJA Protocol Ondansetron HCl 4 mg 04/17/24 15:07 Ondansetron 4mg/2ml Vial IV 05/17/24 15:06 Q8HP PRN Nausea Sodium Chloride 10 ml 04/17/24 15:15 Sodium Chloride 0.9% 10ml Flush Syringe IV 05/17/24 15:14 NEEDED PRN Maintain IV Site Discontinued Medications Generic Name Dose Route Start Last Admin Trade Name Freq PRN Reason Stop Dose Admin Albuterol/Ipratropium 9 ml 04/17/24 14:23 04/17/24 14:37 Ipratropium/Albuterol 3 Ml Neb IH 04/17/24 14:24 9 ml ONCE ONE Administration Magnesium Sulfate 2 gm in 50 mls @ 50 mls/hr 04/17/24 13:38 04/17/24 13:51 Magnesium Sulfate 2gm/50ml Premix IV 04/17/24 14:37 50 mls/hr ONCE ONE Administration Azithromycin 500 mg/ Sodium 250 mls @ 250 mls/hr 04/17/24 13:50 04/17/24 14:09 Chloride IV 04/17/24 13:51 250 mls/hr ONCE ONE Administration Methylprednisolone Sodium Succinate 80 mg 04/17/24 13:38 04/17/24 13:51 Methylprednisolone Sod Succ 125mg Vial IV 04/17/24 13:39 80 mg ONCE ONE Administration ORDERS Category Date Time Status XR chest portable Stat Exams 04/17/24 13:38 Taken BNP [NT Pro Brain Natriuretic Pep.] Stat Lab 04/17/24 12:28 Completed Basic Metabolic Panel AMLAB Lab 04/18/24 06:00 Ordered CBC w/Auto Diff [Complete Blood Count Auto Diff] Stat Lab 04/17/24 12:28 Completed CMP [Comprehensive Metabolic Panel] Stat Lab 04/17/24 12:28 Completed Complete Blood Count Auto Diff AMLAB Lab 04/18/24 06:00 Ordered Full Resp Panel w/COVID (H) Routine Lab 04/17/24 13:54 Completed HIV (1&2) Antibody Rapid Stat Lab 04/17/24 12:28 Received Hep C Ab with Reflex to RNA Stat Lab 04/17/24 12:28 Received MAG [Magnesium] Stat Lab 04/17/24 12:28 Completed Troponin I Q3H Lab 04/17/24 12:28 Completed Troponin I Q3H Lab 04/17/24 15:30 Ordered Blood Culture Stat Micro 04/17/24 13:56 Received VBG [Venous Blood Gas] Stat RT 04/17/24 12:24 Completed Labs were independently interpreted by me, significant for leukocytosis, respiratory acidosis, initial troponin undetectable Imaging was independently visualized and interpreted by me, significant for no consolidative process Please refer to radiology report for full details. Patient will benefit from admission to the hospital for further management. She was accepted for admission by hospitalist. Critical Care Critical Care Time Critical Care Time: No
--- NOTE | 2024-04-17 12:25 | ECG_ITS ---
APPROVED REPORT Exam: Resting ECG HR:69 bpm ECG Measurements Heart Rate 69 AXES NE 160 P 102 QRSd 82 QRS 56 QT 360 T 63 QTc 380 Conclusion ELECTRONIC ATRIAL PACEMAKER ABNORMAL RHYTHM ECG UNCONFIRMED REPORT Electronically signed by : SIM GOMEZ, 04/18/2024 06:38:09
[2024-04-17 12:41] LABS: Albumin Level 4.2 g/dl (3.5-5.0); Chloride 110 mmol/L (98-107); Sodium 144 mmol/L (136-145)
[2024-04-17 12:42] LABS: Potassium 4.5 mmoL/L (3.5-5.1)
[2024-04-17 12:44] LABS: Alanine Aminotransferase 31 U/L (12-78); Albumin/Globulin Ratio 1.6 (1.1-1.8); Alkaline Phosphatase 122 U/L (38-126); Anion Gap 7.5 mEq/L (5-15); Aspartate Amino Transferase 32 U/L (14-36); Bilirubin,Total 0.4 mg/dl (0.2-1.3); Blood Urea Nitrogen 22 mg/dl (7-17); Calcium 9.7 mg/dl (8.4-10.2); Carbon Dioxide 31 mmol/L (22.0-30.0); Creatinine Clearance Estimated 76 mL/min (50-200); Estimated Glomerular Filt Rate 55 ml/min (>60); GFR (African American) 66 ML/MIN (>60); Globulin 2.6 g/dL (1.3-3.2); Glucose 145 mg/dl (74-100); Total Protein,Serum 6.8 g/dl (6.3-8.2)
[2024-04-17 12:45] LABS: VBG Base Excess 0.8 mmol/L (-2.4-2.3); VBG HCO3 27.2 mmol/L (23-30); VBG Oxygen Saturation 78.9 % (50-70); VBG PO2 44.3 mmol/L (28-40); VBG Total CO2 28.9 mmol/L (23-27)
[2024-04-17 12:45] LABS: Magnesium 1.6 mg/dl (1.6-2.3)
[2024-04-17 12:49] LABS: Lactate Venous 2.4 mmol/L (0.4-2.0); VBG PCO2 56.5 mmol/L (35-51)
[2024-04-17 12:55] LABS: NT Pro Brain Natriuretic Pep. 140 pg/mL (0-125)
[2024-04-17 13:00] LABS: Troponin I < 0.01 ng/ml (0.00-0.034)
[2024-04-17 13:01] LABS: Basophils # 0.1 K/mm3 (0-0.2); Basophils % 1.1 % (0.1-2.0); Eosinophils # 0.4 K/mm3 (0.0-0.4); Eosinophils % 3.9 % (0.1-12.0); Hematocrit 50.2 % (37.0-47.0); Hemoglobin 15.3 g/dL (12.2-16.2); Lymphocytes # 2.5 K/mm3 (0.7-4.5); Mean Corpuscular HGB Conc 30.5 g/dL (31.8-35.4); Mean Corpuscular Hemoglobin 28.3 pg (27.0-31.2); Mean Corpuscular Volume 92.8 fl (81-99); Mean Platelet Volume 9.5 fl (7.4-10.4); Monocytes # 0.7 K/mm3 (0.1-1.0); Monocytes % 6.1 % (1.7-9.3); Neutrophils # 7.5 K/mm3 (1.8-7.8); Neutrophils % 66.9 % (37.0-80.0); Platelet Count 185 K/mm3 (142-424); Red Blood Count 5.41 M/mm3 (4.20-5.40); Red Cell Distribution Width 15.5 % (11.5-17.5); White Blood Count 11.2 K/mm3 (4.8-10.8)
--- NOTE | 2024-04-17 13:38 | XR_ITS ---
FINAL REPORT TECHNIQUE: Single view chest CLINICAL HISTORY: soa, hx copd COMPARISON: 04/15/2024 FINDINGS: A single view of the chest was obtained. A pacemaker is in place. The heart and mediastinum are within normal limits. There is pulmonary scarring noted. The lungs are otherwise clear. There is no pneumothorax. Osseous structures are unremarkable. IMPRESSION: No acute cardiopulmonary process. Reviewed, Interpreted and Dictated by Williams Travis MD Transcribed by Lea Zaidi Authenticated and [facility]
--- NOTE | 2024-04-17 13:44 | PC.NURSE ---
XR AT BEDSIDE
[2024-04-17] MEDS: METHYLPREDNISOLONE SOD SUCC 125MG VIAL 80 MG IV (13:51)
[2024-04-17] MEDS: MAGNESIUM SULFATE IN WATER 2 GM/50 ML PIGGYBACK IV (13:51)
[2024-04-17 14:01] LABS: Adenovirus,PCR Not Detected (NotDetected); Bordetella Pertussis Not Detected (NotDetected); Chlamydophila Pneumoniae, PCR Not Detected (NotDetected); Coronavirus 19, PCR Not Detected (NotDetected); Coronavirus 229E Not Detected (NotDetected); Coronavirus NL63 Not Detected (NotDetected); Coronavirus OC43 Not Detected (NotDetected); Coronovirus HKU1,PCR Not Detected (NotDetected); Human Metapneumovirus Not Detected (NotDetected); Influenza A, PCR Not Detected (NotDetected); Influenza AH1, 2009 Not Detected (NotDetected); Influenza AH1, PCR Not Detected (NotDetected); Influenza AH3,PCR Not Detected (NotDetected); Influenza B, PCR Not Detected (NotDetected); Mycoplasma Pneumoniae, PCR Not Detected (NotDetected); Parainfluenza 1, PCR Not Detected (NotDetected); Parainfluenza 2, PCR Not Detected (NotDetected); Parainfluenza 3, PCR Not Detected (NotDetected); Parainfluenza 4, PCR Not Detected (NotDetected); Respiratory Syncytial Virus Not Detected (NotDetected); Rhinovirus/Enterovirus Not Detected (NotDetected)
[2024-04-17] MEDS: AZITHROMYCIN 500 MG in 0.9 % SODIUM CHLORIDE 250 ML 250 MG IV (14:09)
[2024-04-17] MEDS: IPRATROPIUM/ALBUTEROL 3 ML NEB 9 ML IH (14:37)
[2024-04-17] MEDS: CEFTRIAXONE 1 GM 1 GM in 0.9 % SODIUM CHLORIDE 50 ML IV (14:48)
--- NOTE | 2024-04-17 14:57 | PC.NURSE ---
Dr. Daniels speaking with hospitalist about possible admission
--- NOTE | 2024-04-17 15:00 | PC.NURSE ---
on phone with hospitalist
--- NOTE | 2024-04-17 15:15 | PC.NURSE ---
[facility] NOTIFIED OF ADMISSION
--- NOTE | 2024-04-17 15:41 | HMH.PHAINT1 ---
Pharmacy Intervention Comments: MEDICATION RECONCILIATION COMPLETED ON PATIENT USING EXTERNAL FILL HISTORY FROM PHARMACY. -LACHO PEARSON, ODILOND
--- NOTE | 2024-04-17 16:07 | PC.NURSE ---
REPORT GIVEN TO BRITTANY BLOOM
[2024-04-17 16:24] LABS: HIV (1&2) Antibody Rapid NONREACTIVE (NONREACTIVE)
[2024-04-17 16:34] LABS: Troponin I < 0.01 ng/ml (0.00-0.034)
[2024-04-17 16:49] LABS: Reflex Lactic Add Lactic Reflex
[2024-04-17 17:21] LABS: Lactic Acid Follow Up (RFLX 1) 0.8 mmol/L (0.7-2.1)
[2024-04-17] MEDS: humaLOG 100 UNITS/ML 10ML VIAL (SSI) SQ ×2 (18:12→21:08)
[2024-04-17 18:21] LABS: POC Glucose,Bedside 222 (70-110)
[2024-04-17] MEDS: IPRATROPIUM/ALBUTEROL 3 ML NEB IH (18:50)
[2024-04-17] MEDS: ONDANSETRON 4MG/2ML VIAL 4 MG IV (18:51)
--- NOTE | 2024-04-17 19:02 | P.HP_ITS ---
History of Present Illness *Admission Date: 04/17/24 *Reason for visit:: Acute hypoxic respiratory failure, COPD exacerbation *History of present illness: Yelitza Stallings is a 68-year-old female with a medical history significant for COPD (2 L O2 as needed at home) HFpEF, paroxysmal A-fib with pacemaker, type 2 diabetes, anxiety presented from her PCPs office (Dr. Jacinto) with worsening shortness of breath, clear productive cough. She states has been going on for about a week and has not gotten better. She denies chest pain, but does endorse recent sick contacts. She also states the battery on her pacemaker was replaced this Sunday. Workup in the ED revealed WBC 11.2, respiratory acidosis with hypercapnia on VBG pH 7.3, pCO2 56.5, BNP 140. Requiring 5 L via nasal cannula. Received breathing treatments, Solu-Medrol 125 mg with some improvement in respiratory effort. Case discussed with the ED provider and decision was made to admit patient for acute on chronic hypoxic, hypercapnic respiratory failure secondary to COPD exacerbation. [facility] Disclaimer: The information contained in this section may have been updated after the patient was seen, as this information can be updated by other users. Medical History Pre-operative cardiovascular examination Pacemaker lead malfunction Pacemaker at end of battery life Vulvar cyst Candidal intertrigo Bronchiectasis, non-tuberculous COPD (chronic obstructive pulmonary disease) Acute exacerbation of chronic obstructive pulmonary disease Stopped smoking with greater than 30 pack year history History of asthma Family history of asthma Allergic rhinitis, unspecified History of 2019 novel coronavirus disease (COVID-19) COPD (chronic obstructive pulmonary disease) Acute respiratory failure with hypoxia Pneumonia COPD exacerbation Encounter for screening for malignant neoplasm of lung in current smoker with 30 pack year history or greater Stopped smoking with greater than 30 pack year history History of asthma Family history of asthma Allergic rhinitis History of 2019 novel coronavirus disease (COVID-19) COPD exacerbation Hyperlipemia PAF (paroxysmal atrial fibrillation) COPD (chronic obstructive pulmonary disease) On statin therapy Diabetes (~06/2020) Cardiac pacemaker in situ Fatigue HHD (hypertensive heart disease) Surgical History History of tonsillectomy History of cholecystectomy Hx of tonsillectomy History of arthroplasty of right knee Hx of cholecystectomy Family History Other Cancer Coronary artery disease Diabetes Hyperlipidemia Hypertension Social History Smoking Status: Former smoker tobacco type: cigarettes packs per day: 1 smoking status stop date: 09/12/2022 second hand exposure: Yes alcohol intake: never substance use type: denies use current occupational status: retired Travel in the last 8 weeks: None household members: none housing: house marital status: number of children: 0 current occupational exposures/hazards: No caffeine: Yes Meds Home Medications and Allergies Home Medications ?Medication ?Instructions ?Recorded ?Confirmed ?Type blood sugar diagnostic (Easy Touch #100 strips 10/26/23 04/17/24 Rx Test Strip) pen needle, diabetic 32 gauge x #100 ea 01/28/24 04/17/24 Rx 1/4 (BD Ultra-Fine Micro Pen Needle) atorvastatin 80 mg tablet 80 mg PO DAILY #30 tabs 01/30/24 04/17/24 Rx blood-glucose meter,continuous #1 ea 01/30/24 04/17/24 Rx (Dexcom G6 Installation Manager) blood-glucose sensor (Dexcom G6 #1 ea 01/30/24 04/17/24 Rx Sensor device) blood-glucose transmitter (Dexcom #1 ea 01/30/24 04/17/24 Rx G6 Transmitter device) insulin glargine 100 unit/mL (3 30 unit SQ BID 02/13/24 04/17/24 History mL) subcutaneous pen (Jenniaglar KwmassielPen U-100 Insulin) empagliflozin 25 mg tablet 25 mg PO DAILY 90 days #90 tabs 02/20/24 04/17/24 Rx (Jardiance) buspirone 10 mg tablet 10 mg PO BID #60 tabs 03/05/24 04/17/24 Rx lancets 33 gauge (TRUEplus Lancets) #100 ea 04/07/24 04/17/24 History albuterol sulfate 90 mcg/actuation 2 puff inhalation Q6HP PRN 04/17/24 04/17/24 History aerosol inhaler Shortness Of Breath benzonatate 200 mg capsule 200 mg PO TIDP PRN cough 04/17/24 04/17/24 History bisoprolol fumarate 10 mg tablet 10 mg PO BID 04/17/24 04/17/24 History diltiazem HCl 240 mg 240 mg PO DAILY 04/17/24 04/17/24 History capsule,extended release 24 hr fluoxetine 20 mg capsule 20 mg PO BID 04/17/24 04/17/24 History fluticasone propionate 50 1 spray intranasal DAILY 04/17/24 04/17/24 History mcg/actuation nasal spray,suspension furosemide 40 mg tablet 40 mg PO DAILY 04/17/24 04/17/24 History gabapentin 800 mg tablet 800 mg PO BID 04/17/24 04/17/24 History hydrocodone 10 mg-acetaminophen 1 tab PO Q4HP PRN Moderate Pain 04/17/24 04/17/24 History 325 mg tablet (Scale Score 5-6) lisinopril 2.5 mg tablet 2.5 mg PO HS 04/17/24 04/17/24 History magnesium oxide 400 mg (241.3 mg 400 mg PO BID 04/17/24 04/17/24 History magnesium) tablet metformin 500 mg tablet 1,000 mg PO BID 04/17/24 04/17/24 History montelukast 10 mg tablet 10 mg PO PM 04/17/24 04/17/24 History pantoprazole 40 mg tablet,delayed 40 mg PO DAILY 04/17/24 04/17/24 History release rivaroxaban 20 mg tablet (Xarelto) 20 mg PO QPMWITHMEAL 04/17/24 04/17/24 History ropinirole 0.25 mg tablet 0.25 mg PO HS 04/17/24 04/17/24 History New Prescriptions to Start Prescriptions: Allergies Allergy/AdvReac Type Severity Reaction Status Date / Time verapamil Allergy Severe Rash Verified 04/17/24 15:25 Iodine and Iodide Containing Allergy Mild Rash Verified 04/17/24 15:25 Produc Penicillins [PENICILLINS] Allergy Unknown I-RASH Verified 04/17/24 15:25 Sulfa (Sulfonamide Allergy Unknown NA-NAUSEA/V Verified 04/17/24 15:25 Antibiotics) OMITING [SULFA (SULFONAMIDE ANTIBIOTICS)] Exam Data for Last 24 hours Vital signs and Labs for Last 24 Hours: Temp Pulse Resp BP Pulse Ox O2 Del Method O2 Flow Rate 98.2 F 70 19 141/68 H 93 L Nasal Cannula 4 04/17/24 17:24 04/17/24 17:24 04/17/24 17:24 04/17/24 17:24 04/17/24 17:24 04/17/24 18:51 04/17/24 18:51 Laboratory Results - last 24 hr 04/17/24 12:24: VBG pH 7.30 L, VBG pCO2 56.5 H, VBG pO2 44.3 H, VBG HCO3 27.2, VBG Total CO2 28.9 H, VBG O2 Saturation 78.9 H, VBG Base Excess 0.8, VBG Lactic Acid 2.4 H 04/17/24 12:28: WBC 11.2 H, RBC 5.41 H, Hgb 15.3, Hct 50.2 H, MCV 92.8, MCH 28.3, MCHC 30.5 L, RDW 15.5, Plt Count 185, MPV 9.5, Neut % (Auto) 66.9, Lymph % (Auto) 22.0, Hettinger % (Auto) 6.1, Eos % (Auto) 3.9, Baso % (Auto) 1.1, Neut # (Auto) 7.5, Lymph # (Auto) 2.5, Hettinger # (Auto) 0.7, Eos # (Auto) 0.4, Baso # (Auto) 0.1, Sodium 144, Potassium 4.5, Chloride 110 H, Carbon Dioxide 31 H, Anion Gap 7.5, BUN 22 H D, Creatinine 1.00, Estimated Creat Clear 76, Estimated GFR 55 L, Est GFR ( Amer) 66, Glucose 145 H, Calcium 9.7, Magnesium 1.6, Total Bilirubin 0.4, AST 32, ALT 31, Alkaline Phosphatase 122, Troponin I < 0.01, NT-Pro-B Natriuret Pep 140 H, Total Protein 6.8, Albumin 4.2, Globulin 2.6, Albumin/Globulin Ratio 1.6, HIV 1&2 Antibody Rapid Nonreactive 04/17/24 13:54: Chlamy pneumoniae PCR Not detected, Adenovirus (PCR) Not detected, B. pertussis DNA (PCR) Not detected, Coronavirus OC43 (PCR) Not detected, Coronavirus HKU1 (PCR) Not detected, Coronavirus 229E (PCR) Not detected, SARS-CoV-2 (PCR) Not detected, Coronavirus NL63 (PCR) Not detected, Human Metapneumovir PCR Not detected, Influenza A (H1) PCR Not detected, Influ A (H1N1/09) PCR Not detected, Influenza A (H3) PCR Not detected, Influenza Type A (PCR) Not detected, Influenza Type B (PCR) Not detected, M. pneumoniae (PCR) Not detected, Parainfluenza 1 (PCR) Not detected, Parainfluenza 2 (PCR) Not detected, Parainfluenza 3 (PCR) Not detected, Parainfluenza 4 (PCR) Not detected, RSV (PCR) Not detected, Entero/Rhino (PCR) Not detected 04/17/24 15:53: Troponin I < 0.01 04/17/24 17:02: Lactate 0.8 04/17/24 18:07: POC Glucose 222 H I & O for Last 24 hours: Intake & Output 04/14/24 04/15/24 04/16/24 04/17/24 23:59 23:59 23:59 23:59 Intake Total 540 / 540 Balance 540 / 540 Weight 95.283 kg Constitutional Constitutional: no acute distress *Routine HEENT Exam Head: Present normocephalic Eye: Present EOMI and PERRL ENT: Present mucous membranes moist *Routine Neck Exam Neck: Present supple; Absent lymphadenopathy *Routine Respiratory Exam Respiratory: Present prolonged expiratory phase and wheezes; Absent CTA bilaterally Comments: Moderate wheezing on bilateral lung powers. *Routine Cardiovascular Exam Cardiovascular: Present RRR *Routine Abdominal Exam Abdominal: Present soft and normoactive bowel sounds; Absent tenderness *Routine Rectal Exam Rectal:: deferred *Routine Genitalia Exam Genitalia:: deferred *Routine Extremities Exam Extremities: Absent cyanosis, clubbing or edema *Routine Skin Exam Skin: Present warm; Absent rash *Routine Neurological Exam Neurological: Present alert and oriented X3 Assessment and Plan *Assessment and plan (1) Respiratory failure: Status: Acute Category: Medical Code(s): J96.90 - Respiratory failure, unspecified, unspecified whether with hypoxia or hypercapnia (2) Acute hypoxic on chronic hypercapnic respiratory failure: Status: Acute Category: Medical Code(s): J96.01 - Acute respiratory failure with hypoxia; J96.12 - Chronic respiratory failure with hypercapnia (3) PAF (paroxysmal atrial fibrillation): Status: Acute Category: Medical Code(s): I48.0 - Paroxysmal atrial fibrillation (4) Generalized anxiety disorder: Status: Acute Category: Medical Code(s): F41.1 - Generalized anxiety disorder (5) COPD (chronic obstructive pulmonary disease): Status: Chronic Qualifiers: COPD type: unspecified COPD Qualified Code(s): J44.9 - Chronic obstructive pulmonary disease, unspecified Category: Medical Code(s): J44.9 - Chronic obstructive pulmonary disease, unspecified (6) Acute exacerbation of chronic obstructive pulmonary disease: Status: Chronic Category: Medical Code(s): J44.1 - Chronic obstructive pulmonary disease with (acute) exacerbation Plan Yelitza Stallings is a 68-year-old female with a medical history significant for COPD (2 L O2 as needed at home) HFpEF, paroxysmal A-fib with pacemaker, type 2 diabetes, anxiety presented from her PCPs office (Dr. Jacinto) with worsening shortness of breath, clear productive cough. She states has been going on for about a week and has not gotten better. She denies chest pain, but does endorse recent sick contacts. She also states the battery on her pacemaker was replaced this Sunday. Workup in the ED revealed WBC 11.2, respiratory acidosis with hypercapnia on VBG pH 7.3, pCO2 56.5, BNP 140. Requiring 5 L via nasal cannula. Received breathing treatments, Solu-Medrol 125 mg with some improvement in respiratory effort. Case discussed with the ED provider and decision was made to admit patient for acute on chronic hypoxic, hypercapnic respiratory failure secondary to COPD exacerbation. #Acute hypoxic, hypercapnic respiratory failure #Acute COPD exacerbation ? 1 week onset of shortness of breath, clear productive cough worsening. ? Initial VBG consistent with respiratory acidosis with hypercapnia. ? CXR does not reveal acute process. ? Solu-Medrol given in the ED. ? DuoNebs scheduled and as needed. ? Pulmicort twice daily. ? Prednisone 40 mg starting tomorrow. ? No antibiotics indicated at this time given no purulence. #Paroxysmal A-fib with pacemaker ? Currently rate controlled. ? Resume home medications once reconciled. ? Xarelto 20 mg. #HFpEF ? Stable and euvolemic. ? Resume home medications once reconciled. #Hypertension ? Resume home medications once reconciled and appropriate for BP. # Anxiety ? Resume home medications once reconciled. #Insulin-dependent type 2 diabetes ? Lantus 10 units scheduled. Resume home medications once reconciled. ? LDSSI, ACHS glucose checks. Adjust long-acting based on SSI. CODE STATUS: Full code DVT prophylaxis: Xarelto Diet: Cardiac
--- NOTE | 2024-04-17 19:03 | PC.NURSE ---
AOX4, REQUIRING 4LNC FOR O2 SUPPORT. REQUIRED 1 PRN BREATHING TREATMENT FOR WHEEZING.
[2024-04-17] MEDS: BUDESONIDE 0.5MG/2ML NEB 0.5 MG IH (19:21)
[2024-04-17 20:55] LABS: POC Glucose,Bedside 299 (70-110)
[2024-04-17] MEDS: BUSPIRONE HCL 10 MG TABLET PO (21:08)
[2024-04-17] MEDS: INSULIN GLARGINE 100 UNITS/ML 10ML VIAL 10 UNIT SQ (21:10)
[2024-04-17] MEDS: ROPINIROLE HCL 0.25 MG TABLET PO (21:10)
[2024-04-18] VITALS (11 sets, daily range): BP systolic 126–151; BP diastolic 51–85; PULSE 70–86; RESP 16–20; TEMP 36.6–37.5; O2SAT 92–97; BMI 31.1
[2024-04-18] MEDS: IPRATROPIUM/ALBUTEROL 3 ML NEB IH ×5 (00:20→23:53)
[2024-04-18] MEDS: SODIUM CHLORIDE 3% 15ML NEB 3 ML IH (00:32)
[2024-04-18] MEDS: ACETAMINOPHEN 325MG TAB 650 MG PO (00:35)
[2024-04-18 05:13] LABS: HCV Ab Non Reactive (Non Reactive)
[2024-04-18] MEDS: humaLOG 100 UNITS/ML 10ML VIAL (SSI) SQ ×4 (06:04→20:47)
--- NOTE | 2024-04-18 06:32 | PC.NURSE ---
patient has need PRN neb t/o shift. Was on venti at one point, and weaned back to 4L NC. 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 ambulates to bathroom standby. a&ox4. refused bath tonight.
[2024-04-18 07:06] LABS: Basophils % 0.1 % (0.1-2.0); Hematocrit 47.4 % (37.0-47.0); Lymphocytes # 0.7 K/mm3 (0.7-4.5); Lymphocytes % 6.1 % (10-50); Mean Corpuscular HGB Conc 29.5 g/dL (31.8-35.4); Mean Corpuscular Hemoglobin 27.9 pg (27.0-31.2); Mean Corpuscular Volume 94.4 fl (81-99); Mean Platelet Volume 9.3 fl (7.4-10.4); Monocytes # 0.5 K/mm3 (0.1-1.0); Monocytes % 3.7 % (1.7-9.3); Neutrophils # 11.2 K/mm3 (1.8-7.8); Neutrophils % 90.2 % (37.0-80.0); Platelet Count 161 K/mm3 (142-424); Red Blood Count 5.02 M/mm3 (4.20-5.40); White Blood Count 12.4 K/mm3 (4.8-10.8)
[2024-04-18 07:12] LABS: Anion Gap 5.6 mEq/L (5-15); Blood Urea Nitrogen 22 mg/dl (7-17); Calcium 9.4 mg/dl (8.4-10.2); Carbon Dioxide 31 mmol/L (22.0-30.0); Chloride 108 mmol/L (98-107); Creatinine Clearance Estimated 79 mL/min (50-200); Estimated Glomerular Filt Rate 62 ml/min (>60); GFR (African American) 75 ML/MIN (>60); Glucose 180 mg/dl (74-100); Potassium 4.6 mmoL/L (3.5-5.1); Sodium 140 mmol/L (136-145)
[2024-04-18 07:20] LABS: MANUAL DIFFERENTIAL MANUAL DIFFERENTIAL (MANUAL DIFF)
[2024-04-18] MEDS: predniSONE 20MG TAB 40 MG PO (08:07)
[2024-04-18] MEDS: BUSPIRONE HCL 10 MG TABLET PO ×2 (08:07→20:41)
[2024-04-18] MEDS: BUDESONIDE 0.5MG/2ML NEB 0.5 MG IH ×2 (08:35→18:22)
[2024-04-18 09:28] LABS: Lymphocytes % 15 % (10-50); Monocytes % 1 % (2-9); Neutrophils % 84 % (42-76); Total Cells Counted 100
[2024-04-18 09:29] LABS: Platelet Estimate Normal; RBC Morphology Normal
[2024-04-18] MEDS: HYDROCODONE 10MG/APAP 325MG TAB 1 TAB PO ×2 (10:56→17:13)
[2024-04-18 12:18] LABS: POC Glucose,Bedside 177 (70-110)
--- NOTE | 2024-04-18 14:51 | P.PN_ITS ---
Subjective *Date: 04/18/24 *Time: 15:02 Interval history: Patient was sitting at the edge of bed this morning without acute distress. She states that she continues to have dyspnea on exertion requiring more oxygen via nasal cannula. Currently on 4 L. Denies chest pain, abdominal pain, lower extremity swelling. Exam Data for Last 24 hours Vital signs and Labs for Last 24 Hours: Temp Pulse Resp BP Pulse Ox O2 Del Method O2 Flow Rate 98.6 F 80 18 126/51 L 94 L Nasal Cannula 4 04/18/24 08:00 04/18/24 13:16 04/18/24 08:00 04/18/24 08:00 04/18/24 13:16 04/18/24 13:16 04/18/24 13:16 FiO2 50 04/17/24 21:45 Laboratory Results - last 24 hr 04/17/24 12:28: Hepatitis C Antibody Non reactive, Hep C Ab Comment Comment, HIV 1&2 Antibody Rapid Nonreactive 04/17/24 13:54: Chlamy pneumoniae PCR Not detected, Adenovirus (PCR) Not detected, B. pertussis DNA (PCR) Not detected, Coronavirus OC43 (PCR) Not detected, Coronavirus HKU1 (PCR) Not detected, Coronavirus 229E (PCR) Not detected, SARS-CoV-2 (PCR) Not detected, Coronavirus NL63 (PCR) Not detected, Human Metapneumovir PCR Not detected, Influenza A (H1) PCR Not detected, Influ A (H1N1/09) PCR Not detected, Influenza A (H3) PCR Not detected, Influenza Type A (PCR) Not detected, Influenza Type B (PCR) Not detected, M. pneumoniae (PCR) Not detected, Parainfluenza 1 (PCR) Not detected, Parainfluenza 2 (PCR) Not detected, Parainfluenza 3 (PCR) Not detected, Parainfluenza 4 (PCR) Not detected, RSV (PCR) Not detected, Entero/Rhino (PCR) Not detected 04/17/24 15:53: Troponin I < 0.01 04/17/24 17:02: Lactate 0.8 04/17/24 18:07: POC Glucose 222 H 04/17/24 20:04: POC Glucose 299 H 04/18/24 05:53: WBC 12.4 H, RBC 5.02, Hgb 14.0, Hct 47.4 H, MCV 94.4, MCH 27.9, MCHC 29.5 L, RDW 15.0, Plt Count 161, MPV 9.3, Neut % (Auto) 90.2 H, Lymph % (Auto) 6.1 L, Graves % (Auto) 3.7, Eos % (Auto) 0.0 L, Baso % (Auto) 0.1, Neut # (Auto) 11.2 H, Lymph # (Auto) 0.7, Graves # (Auto) 0.5, Eos # (Auto) 0.0, Baso # (Auto) 0.0, Total Counted 100, Neutrophils % (Manual) 84 H, Lymphocytes % (Manual) 15, Monocytes % (Manual) 1 L, Platelet Estimate Normal, RBC Morphology Normal, Sodium 140, Potassium 4.6, Chloride 108 H, Carbon Dioxide 31 H, Anion Gap 5.6, BUN 22 H, Creatinine 0.90, Estimated Creat Clear 79, Estimated GFR 62, Est GFR ( Amer) 75, Glucose 180 H D, Calcium 9.4 04/18/24 11:43: POC Glucose 177 H I & O for Last 24 hours: Intake & Output 04/15/24 04/16/24 04/17/24 04/18/24 23:59 23:59 23:59 23:59 Intake Total 540 / 910 850 / 850 Output Total 0 / 0 0 / 0 Balance 540 / 910 850 / 850 Weight 95.283 kg 95.283 kg Microbiology Reports for the Last 24 Hours: Microbiology 04/17/24 13:56 Blood Blood Culture - Preliminary NO GROWTH AFTER 24 HOURS 04/17/24 13:50 Blood Blood Culture - Preliminary NO GROWTH AFTER 24 HOURS 04/18/24 08:16 Sputum - Expectorated Sputum Gram Stain - Final Assessment and Plan *Assessment and plan (1) Respiratory failure: Status: Acute Category: Medical Code(s): J96.90 - Respiratory failure, unspecified, unspecified whether with hypoxia or hypercapnia (2) Acute hypoxic on chronic hypercapnic respiratory failure: Status: Acute Category: Medical Code(s): J96.01 - Acute respiratory failure with hypoxia; J96.12 - Chronic respiratory failure with hypercapnia (3) PAF (paroxysmal atrial fibrillation): Status: Acute Category: Medical Code(s): I48.0 - Paroxysmal atrial fibrillation (4) Generalized anxiety disorder: Status: Acute Category: Medical Code(s): F41.1 - Generalized anxiety disorder (5) COPD (chronic obstructive pulmonary disease): Status: Chronic Qualifiers: COPD type: unspecified COPD Qualified Code(s): J44.9 - Chronic obstructive pulmonary disease, unspecified Category: Medical Code(s): J44.9 - Chronic obstructive pulmonary disease, unspecified (6) Acute exacerbation of chronic obstructive pulmonary disease: Status: Chronic Category: Medical Code(s): J44.1 - Chronic obstructive pulmonary disease with (acute) exacerbation Plan Yelitza Stallings is a 68-year-old female with a medical history significant for COPD (2 L O2 as needed at home) HFpEF, paroxysmal A-fib with pacemaker, type 2 diabetes, anxiety presented from her PCPs office (Dr. Jacinto) with worsening shortness of breath, clear productive cough. She states has been going on for about a week and has not gotten better. She denies chest pain, but does endorse recent sick contacts. She also states the battery on her pacemaker was replaced this Sunday. Workup in the ED revealed WBC 11.2, respiratory acidosis with hypercapnia on VBG pH 7.3, pCO2 56.5, BNP 140. Requiring 5 L via nasal cannula. Received breathing treatments, Solu-Medrol 125 mg with some improvement in respiratory effort. Case discussed with the ED provider and decision was made to admit patient for acute on chronic hypoxic, hypercapnic respiratory failure secondary to COPD exacerbation. #Acute hypoxic, hypercapnic respiratory failure #Acute COPD exacerbation ? Presented with 1 week onset of shortness of breath, clear productive cough worsening. ? Initial VBG consistent with respiratory acidosis with hypercapnia. ? CXR does not reveal acute process. ? Patient states she feels a little bit better today, but continues to have dyspnea on exertion with desaturations requiring 5 L nasal cannula. ? Currently on 4 L nasal cannula. Wean as tolerated, baseline uses 2 L as needed. ? Solu-Medrol given in the ED. ? DuoNebs scheduled and as needed. ? Pulmicort twice daily. ? Prednisone 40 mg starting tomorrow day 2/5 of steroids. ? No antibiotics indicated at this time given no purulence. #Paroxysmal A-fib with pacemaker ? Currently rate controlled. ? Resume home medications once reconciled. ? Xarelto 20 mg. #HFpEF ? Stable and euvolemic. ? Resume home medications once reconciled. #Hypertension ? Resume home medications once reconciled and appropriate for BP. # Anxiety ? Resume home medications once reconciled. #Insulin-dependent type 2 diabetes ? Lantus 10 units scheduled. Resume home medications once reconciled. ? LDSSI, ACHS glucose checks. Adjust long-acting based on SSI. CODE STATUS: Full code DVT prophylaxis: Xarelto Diet: Cardiac
[2024-04-18] MEDS: CEFTRIAXONE 1 GM 1 GM in 0.9 % SODIUM CHLORIDE 50 ML IV (15:16)
[2024-04-18 17:36] LABS: POC Glucose,Bedside 282 (70-110)
[2024-04-18] MEDS: RIVAROXABAN 10MG TABLET 20 MG PO (17:44)
--- NOTE | 2024-04-18 18:14 | PC.NURSE ---
patient has rested majority of shift. remains on 4LNC o2 sat is 94%. pt tolerating diet well, glucose levels have been elevated this shift, treated per SSI. pt c/o pain twice this shift treated per SEP. applied powder to skin folds because they were red and excoriated, pt stated she had relief of pain after application. no further requests at this time call light within reach.
[2024-04-18] MEDS: GABAPENTIN 800MG TABLET 800 MG PO (20:41)
[2024-04-18] MEDS: PANTOPRAZOLE 40MG TABLET 40 MG PO (20:41)
[2024-04-18] MEDS: ROPINIROLE HCL 0.25 MG TABLET PO (20:41)
[2024-04-18] MEDS: FLUOXETINE 20MG CAPSULE 20 MG PO (20:41)
[2024-04-18] MEDS: LISINOPRIL 2.5MG TABLET 2.5 MG PO (20:42)
[2024-04-18] MEDS: MONTELUKAST SODIUM 10MG TAB 10 MG PO (20:42)
[2024-04-18] MEDS: ATORVASTATIN 40MG TABLET 80 MG PO (20:42)
[2024-04-18] MEDS: BISOPROLOL 5MG TABLET 10 MG PO (20:42)
[2024-04-18] MEDS: INSULIN GLARGINE 100 UNITS/ML 3ML FLEXPEN 10 UNIT SQ (20:47)
[2024-04-19] VITALS (12 sets, daily range): BP systolic 111–135; BP diastolic 52–91; PULSE 70–110; RESP 18–19; TEMP 36.5–37.1; O2SAT 88–94; BMI 33.5
[2024-04-19 00:12] LABS: POC Glucose,Bedside 240 (70-110)
[2024-04-19 05:34] LABS: POC Glucose,Bedside 155 (70-110)
[2024-04-19 06:12] LABS: Basophils # 0.1 K/mm3 (0-0.2); Basophils % 0.4 % (0.1-2.0); Eosinophils # 0.1 K/mm3 (0.0-0.4); Eosinophils % 0.7 % (0.1-12.0); Hematocrit 45.4 % (37.0-47.0); Hemoglobin 13.7 g/dL (12.2-16.2); Lymphocytes # 2.8 K/mm3 (0.7-4.5); Lymphocytes % 18.3 % (10-50); Mean Corpuscular HGB Conc 30.1 g/dL (31.8-35.4); Mean Corpuscular Hemoglobin 28.6 pg (27.0-31.2); Mean Corpuscular Volume 94.9 fl (81-99); Mean Platelet Volume 9.2 fl (7.4-10.4); Monocytes # 0.8 K/mm3 (0.1-1.0); Neutrophils # 11.6 K/mm3 (1.8-7.8); Neutrophils % 75.5 % (37.0-80.0); Platelet Count 155 K/mm3 (142-424); Red Blood Count 4.79 M/mm3 (4.20-5.40); Red Cell Distribution Width 15.1 % (11.5-17.5); White Blood Count 15.3 K/mm3 (4.8-10.8)
[2024-04-19 06:15] LABS: MANUAL DIFFERENTIAL MANUAL DIFFERENTIAL (MANUAL DIFF)
[2024-04-19 06:19] LABS: Calcium 9.3 mg/dl (8.4-10.2); Carbon Dioxide 32 mmol/L (22.0-30.0); Glucose 153 mg/dl (74-100); Potassium 3.8 mmoL/L (3.5-5.1); Sodium 139 mmol/L (136-145)
[2024-04-19 06:20] LABS: Anion Gap 4.8 mEq/L (5-15); Blood Urea Nitrogen 23 mg/dl (7-17); Chloride 106 mmol/L (98-107); Creatinine Clearance Estimated 85 mL/min (50-200); Estimated Glomerular Filt Rate 55 ml/min (>60); GFR (African American) 66 ML/MIN (>60)
[2024-04-19] MEDS: IPRATROPIUM/ALBUTEROL 3 ML NEB IH ×5 (06:23→23:48)
[2024-04-19] MEDS: BUDESONIDE 0.5MG/2ML NEB 0.5 MG IH ×2 (06:23→18:16)
[2024-04-19 08:06] LABS: Lymphocytes % 24 % (10-50); Monocytes % 2 % (2-9); Neutrophils % 74 % (42-76); Platelet Estimate Normal; RBC Morphology Normal; Total Cells Counted 100
[2024-04-19] MEDS: FLUOXETINE 20MG CAPSULE 20 MG PO ×2 (08:09→20:24)
[2024-04-19] MEDS: BUSPIRONE HCL 10 MG TABLET PO ×2 (08:09→20:24)
[2024-04-19] MEDS: predniSONE 20MG TAB 40 MG PO (08:09)
[2024-04-19] MEDS: EMPAGLIFLOZIN 10MG TABLET 25 MG PO (08:10)
[2024-04-19] MEDS: GABAPENTIN 800MG TABLET 800 MG PO ×2 (08:10→20:25)
[2024-04-19] MEDS: BISOPROLOL 5MG TABLET 10 MG PO ×2 (08:57→20:24)
[2024-04-19] MEDS: dilTIAZem ER 240MG CAPSULE 240 MG PO (08:57)
[2024-04-19] MEDS: HYDROCODONE 10MG/APAP 325MG TAB 1 TAB PO (09:00)
[2024-04-19] MEDS: humaLOG 100 UNITS/ML 10ML VIAL (SSI) SQ ×3 (10:52→20:25)
[2024-04-19 11:25] LABS: POC Glucose,Bedside 176 (70-110)
[2024-04-19] MEDS: CEFTRIAXONE 1 GM 1 GM in 0.9 % SODIUM CHLORIDE 50 ML IV (13:33)
--- NOTE | 2024-04-19 14:07 | PC.NURSE ---
patient complaining of SOB while lying in bed, o2 sat 90% on 4 L. called RT at 1330, RT treated per SEP.
--- NOTE | 2024-04-19 15:26 | P.PN_ITS ---
Subjective *Date: 04/19/24 *Time: 15:26 Interval history: Patient was sitting in bed without acute concerns today. Very pleasant. She continues to have increased work of breathing with exertion, and requires 4 L via nasal cannula. However, she continues to have significant wheezing in bilateral lung powers. Denies chest pain. Exam Data for Last 24 hours Vital signs and Labs for Last 24 Hours: Temp Pulse Resp BP Pulse Ox O2 Del Method O2 Flow Rate 98.7 F 72 19 123/62 92 L Nasal Cannula 4 04/19/24 12:00 04/19/24 13:37 04/19/24 12:00 04/19/24 12:00 04/19/24 13:37 04/19/24 13:37 04/19/24 13:37 FiO2 50 04/17/24 21:45 Laboratory Results - last 24 hr 04/18/24 17:06: POC Glucose 282 H 04/18/24 20:46: POC Glucose 240 H 04/19/24 05:25: POC Glucose 155 H 04/19/24 05:57: WBC 15.3 H, RBC 4.79, Hgb 13.7, Hct 45.4, MCV 94.9, MCH 28.6, MCHC 30.1 L, RDW 15.1, Plt Count 155, MPV 9.2, Neut % (Auto) 75.5, Lymph % (Auto) 18.3, [place] % (Auto) 5.0, Eos % (Auto) 0.7, Baso % (Auto) 0.4, Neut # (Auto) 11.6 H, Lymph # (Auto) 2.8, [place] # (Auto) 0.8, Eos # (Auto) 0.1, Baso # (Auto) 0.1, Total Counted 100, Neutrophils % (Manual) 74, Lymphocytes % (Manual) 24, Monocytes % (Manual) 2, Platelet Estimate Normal, RBC Morphology Normal, Sodium 139, Potassium 3.8, Chloride 106, Carbon Dioxide 32 H, Anion Gap 4.8 L, BUN 23 H, Creatinine 1.00, Estimated Creat Clear 85, Estimated GFR 55 L, Est GFR ( Amer) 66, Glucose 153 H, Calcium 9.3 04/19/24 10:38: POC Glucose 176 H I & O for Last 24 hours: Intake & Output 04/16/24 04/17/24 04/18/24 09/21/24 23:59 23:59 23:59 23:59 Intake Total 540 / 910 1799 / 2039 930 / 930 Output Total 0 / 0 0 / 0 0 / 0 Balance 540 / 910 1799 / 0 930 / 930 Weight 95.283 kg 95.2 kg 102.92 kg Microbiology Reports for the Last 24 Hours: Microbiology 04/17/24 13:56 Blood Blood Culture - Preliminary NO GROWTH AFTER 48 HOURS 04/17/24 13:50 Blood Blood Culture - Preliminary NO GROWTH AFTER 48 HOURS 04/18/24 08:16 Sputum - Expectorated Sputum Gram Stain - Final 04/18/24 08:16 Sputum - Expectorated Sputum Sputum Culture - Preliminary Constitutional Constitutional: no acute distress *Routine HEENT Exam Head: Present normocephalic Eye: Present EOMI and PERRL ENT: Present mucous membranes moist *Routine Neck Exam Neck: Present supple; Absent lymphadenopathy *Routine Respiratory Exam Respiratory: Present wheezes and diminished air movement; Absent CTA bilaterally Comments: Moderate, significant wheezing in bilateral lung powers. *Routine Cardiovascular Exam Cardiovascular: Present RRR *Routine Abdominal Exam Abdominal: Present soft and normoactive bowel sounds; Absent tenderness *Routine Extremities Exam Extremities: Absent cyanosis, clubbing or edema *Routine Skin Exam Skin: Present warm; Absent rash *Routine Neurological Exam Neurological: Present alert and oriented X3 Assessment and Plan *Assessment and plan (1) Respiratory failure: Status: Acute Category: Medical Code(s): J96.90 - Respiratory failure, unspecified, unspecified whether with hypoxia or hypercapnia (2) Acute hypoxic on chronic hypercapnic respiratory failure: Status: Acute Category: Medical Code(s): J96.01 - Acute respiratory failure with hypoxia; J96.12 - Chronic respiratory failure with hypercapnia (3) PAF (paroxysmal atrial fibrillation): Status: Acute Category: Medical Code(s): I48.0 - Paroxysmal atrial fibrillation (4) Generalized anxiety disorder: Status: Acute Category: Medical Code(s): F41.1 - Generalized anxiety disorder (5) COPD (chronic obstructive pulmonary disease): Status: Chronic Qualifiers: COPD type: unspecified COPD Qualified Code(s): J44.9 - Chronic obstructive pulmonary disease, unspecified Category: Medical Code(s): J44.9 - Chronic obstructive pulmonary disease, unspecified (6) Acute exacerbation of chronic obstructive pulmonary disease: Status: Chronic Category: Medical Code(s): J44.1 - Chronic obstructive pulmonary disease with (acute) exacerbation Plan Yelitza Stallings is a 68-year-old female with a medical history significant for COPD (2 L O2 as needed at home) HFpEF, paroxysmal A-fib with pacemaker, type 2 diabetes, anxiety presented from her PCPs office (Dr. Jacinto) with worsening shortness of breath, clear productive cough. She states has been going on for about a week and has not gotten better. She denies chest pain, but does endorse recent sick contacts. She also states the battery on her pacemaker was replaced this Sunday. Workup in the ED revealed WBC 11.2, respiratory acidosis with hypercapnia on VBG pH 7.3, pCO2 56.5, BNP 140. Requiring 5 L via nasal cannula. Received breathing treatments, Solu-Medrol 125 mg with some improvement in respiratory effort. Case discussed with the ED provider and decision was made to admit patient for acute on chronic hypoxic, hypercapnic respiratory failure secondary to COPD exacerbation. #Acute hypoxic, hypercapnic respiratory failure #Acute COPD exacerbation ? Presented with 1 week onset of shortness of breath, clear productive cough wor sening. ? Initial VBG consistent with respiratory acidosis with hypercapnia. ? CXR does not reveal acute process. ? Patient states she feels a little bit better today, but continues to have significant wheezing on bilateral lung powers and dyspnea on exertion ? Currently on 4 L nasal cannula. Wean as tolerated, baseline uses 2 L as needed. ? Solu-Medrol given in the ED. ? DuoNebs scheduled and as needed. ? Pulmicort twice daily. ? Prednisone 40 mg day 3/5 of steroids. Will give additional Solu-Medrol 40 mg dose today. ? No antibiotics indicated at this time given no purulence ? Wean O2 as tolerated. #Paroxysmal A-fib with pacemaker ? Currently rate controlled. ? Resume home medications once reconciled. ? Xarelto 20 mg. #HFpEF ? Stable and euvolemic. ? Resume home medications once reconciled. #Hypertension ? Resume home medications once reconciled and appropriate for BP. # Anxiety ? Resume home medications once reconciled. #Insulin-dependent type 2 diabetes ? Lantus 10 units scheduled. Resume home medications once reconciled. ? LDSSI, ACHS glucose checks. Adjust long-acting based on SSI. CODE STATUS: Full code DVT prophylaxis: Xarelto Diet: Cardiac
[2024-04-19 17:02] LABS: POC Glucose,Bedside 312 (70-110)
[2024-04-19] MEDS: RIVAROXABAN 10MG TABLET 20 MG PO (17:18)
[2024-04-19] MEDS: MONTELUKAST SODIUM 10MG TAB 10 MG PO (18:05)
[2024-04-19] MEDS: ATORVASTATIN 40MG TABLET 80 MG PO (20:23)
[2024-04-19] MEDS: ROPINIROLE HCL 0.25 MG TABLET PO (20:23)
[2024-04-19 20:24] LABS: POC Glucose,Bedside 305 (70-110)
[2024-04-19] MEDS: LISINOPRIL 2.5MG TABLET 2.5 MG PO (20:24)
[2024-04-19] MEDS: METHYLPREDNISOLONE SOD SUCC 40MG VIAL 40 MG IV (20:24)
[2024-04-19] MEDS: PANTOPRAZOLE 40MG TABLET 40 MG PO (20:24)
[2024-04-19] MEDS: INSULIN GLARGINE 100 UNITS/ML 3ML FLEXPEN 10 UNIT SQ (20:25)
[2024-04-20] VITALS (12 sets, daily range): BP systolic 120–162; BP diastolic 49–96; PULSE 69–73; RESP 16–20; TEMP 36.4–37.1; O2SAT 88–95; BMI 33.5
--- NOTE | 2024-04-20 05:31 | PC.NURSE ---
patient increased to 5L NC r/t SOA (O2 87%) and dizziness with sitting up on side of bed around 0215.
[2024-04-20] MEDS: humaLOG 100 UNITS/ML 10ML VIAL (SSI) SQ ×4 (05:59→20:12)
[2024-04-20] MEDS: BUDESONIDE 0.5MG/2ML NEB 0.5 MG IH ×2 (06:05→18:20)
[2024-04-20] MEDS: IPRATROPIUM/ALBUTEROL 3 ML NEB IH ×4 (06:05→23:28)
[2024-04-20 07:12] LABS: Basophils % 0.2 % (0.1-2.0); Hemoglobin 13.7 g/dL (12.2-16.2); Lymphocytes % 7.6 % (10-50); Mean Corpuscular HGB Conc 29.7 g/dL (31.8-35.4); Mean Corpuscular Hemoglobin 27.8 pg (27.0-31.2); Mean Corpuscular Volume 93.7 fl (81-99); Mean Platelet Volume 9.1 fl (7.4-10.4); Monocytes # 0.5 K/mm3 (0.1-1.0); Monocytes % 3.6 % (1.7-9.3); Neutrophils # 11.9 K/mm3 (1.8-7.8); Neutrophils % 88.6 % (37.0-80.0); Platelet Count 158 K/mm3 (142-424); Red Blood Count 4.91 M/mm3 (4.20-5.40); Red Cell Distribution Width 15.1 % (11.5-17.5); White Blood Count 13.4 K/mm3 (4.8-10.8)
[2024-04-20 07:15] LABS: Chloride 105 mmol/L (98-107)
[2024-04-20 07:16] LABS: Potassium 4.4 mmoL/L (3.5-5.1); Sodium 138 mmol/L (136-145)
[2024-04-20 07:17] LABS: MANUAL DIFFERENTIAL MANUAL DIFFERENTIAL (MANUAL DIFF)
[2024-04-20 07:19] LABS: Anion Gap 8.4 mEq/L (5-15); Blood Urea Nitrogen 25 mg/dl (7-17); Calcium 9.5 mg/dl (8.4-10.2); Carbon Dioxide 29 mmol/L (22.0-30.0); Creatinine Clearance Estimated 85 mL/min (50-200); Estimated Glomerular Filt Rate 62 ml/min (>60); GFR (African American) 75 ML/MIN (>60); Glucose 235 mg/dl (74-100)
[2024-04-20] MEDS: GABAPENTIN 800MG TABLET 800 MG PO ×2 (08:28→20:12)
[2024-04-20] MEDS: predniSONE 20MG TAB 40 MG PO (08:28)
[2024-04-20] MEDS: BISOPROLOL 5MG TABLET 10 MG PO ×2 (08:28→20:12)
[2024-04-20] MEDS: FLUOXETINE 20MG CAPSULE 20 MG PO ×2 (08:29→20:12)
[2024-04-20] MEDS: dilTIAZem ER 240MG CAPSULE 240 MG PO (08:29)
[2024-04-20] MEDS: BUSPIRONE HCL 10 MG TABLET PO ×2 (08:29→20:12)
[2024-04-20] MEDS: EMPAGLIFLOZIN 10MG TABLET 25 MG PO (08:29)
--- NOTE | 2024-04-20 08:40 | P.PN_ITS ---
Subjective *Date: 04/20/24 *Time: 08:40 Medical Exam Vital signs and Labs for Last 24 Hours: Vital Signs Temp Pulse Pulse Resp BP Pulse Ox O2 Del Method 04/20/24 08:00 71 20 122/69 91 L Nasal Cannula 04/20/24 06:11 Nasal Cannula 04/20/24 06:06 72 04/20/24 06:06 70 04/20/24 06:06 88 L Nasal Cannula 04/20/24 05:00 Nasal Cannula 04/20/24 04:00 98.1 F 72 16 154/88 H 88 L Nasal Cannula 04/20/24 01:00 04/20/24 00:08 72 04/20/24 00:08 73 04/20/24 00:00 98.2 F 70 18 141/72 H 93 L Nasal Cannula 04/19/24 23:00 Nasal Cannula 04/19/24 21:00 Nasal Cannula 04/19/24 20:00 Nasal Cannula 04/19/24 20:00 97.8 F 70 18 125/58 L 93 L Nasal Cannula 04/19/24 19:12 88 L Room Air 04/19/24 19:12 Nasal Cannula 04/19/24 19:11 74 04/19/24 19:11 73 04/19/24 18:49 Room Air 04/19/24 18:16 88 L Room Air 04/19/24 17:00 Nasal Cannula 04/19/24 16:00 98.1 F 70 18 134/91 H 90 L Nasal Cannula 04/19/24 15:00 Nasal Cannula 04/19/24 13:37 72 04/19/24 13:37 74 04/19/24 13:37 92 L Nasal Cannula 04/19/24 13:00 Nasal Cannula 04/19/24 12:00 98.7 F 71 19 123/62 90 L Nasal Cannula 04/19/24 11:24 72 04/19/24 11:24 75 04/19/24 11:24 93 L Nasal Cannula 04/19/24 11:00 Nasal Cannula 04/19/24 09:00 Nasal Cannula O2 Flow Rate 04/20/24 08:00 5 04/20/24 06:11 5 04/20/24 06:06 04/20/24 06:06 04/20/24 06:06 5 04/20/24 05:00 5 04/20/24 04:00 6 04/20/24 01:00 4 04/20/24 00:08 04/20/24 00:08 04/20/24 00:00 5 04/19/24 23:00 4 04/19/24 21:00 4 04/19/24 20:00 4 04/19/24 20:00 4 04/19/24 19:12 04/19/24 19:12 4 04/19/24 19:11 04/19/24 19:11 04/19/24 18:49 04/19/24 18:16 04/19/24 17:00 04/19/24 16:00 4 04/19/24 15:00 04/19/24 13:37 04/19/24 13:37 04/19/24 13:37 4 04/19/24 13:00 04/19/24 12:00 4 04/19/24 11:24 04/19/24 11:24 04/19/24 11:24 4 04/19/24 11:00 04/19/24 09:00 4 Intake and Output 04/19/24 04/20/24 04/20/24 23:59 07:59 15:59 Intake Total 370 / 1780 480 / 480 Output Total 0 / 0 0 / 0 Balance 370 / 1780 480 / 480 Intake: Intake, Oral Amount 320 / 1730 480 / 480 Intake, Total IV Amount 50 / 50 Ceftriaxone 1 gm 1 gm In 0.9 % 50 / 50 Sodium Chloride 50 ml @ 100 mls /hr IV Q24H [facility] Rx#:[id number] Output: Output, Urine Amount 0 / 0 0 / 0 Other: Number of Unmeasured Voids 1 1 Number of Bowel Movements 1 Weight 102.92 kg Patient Weight 04/20/24 23:59 Weight 102.92 kg Laboratory Results - last 24 hr 04/19/24 10:38: POC Glucose 176 H 04/19/24 16:19: POC Glucose 312 H* 04/19/24 20:14: POC Glucose 305 H* 04/20/24 06:38: WBC 13.4 H, RBC 4.91, Hgb 13.7, Hct 46.0, MCV 93.7, MCH 27.8, MCHC 29.7 L, RDW 15.1, Plt Count 158, MPV 9.1, Neut % (Auto) 88.6 H, Lymph % (Auto) 7.6 L, [place] % (Auto) 3.6, Eos % (Auto) 0.0 L, Baso % (Auto) 0.2, Neut # (Auto) 11.9 H, Lymph # (Auto) 1.0, [place] # (Auto) 0.5, Eos # (Auto) 0.0, Baso # (Auto) 0.0, Sodium 138, Potassium 4.4, Chloride 105, Carbon Dioxide 29, Anion Gap 8.4, BUN 25 H, Creatinine 0.90, Estimated Creat Clear 85, Estimated GFR 62, Est GFR ( Amer) 75, Glucose 235 H, Calcium 9.5 I & O for Labs for Last 24 Hours: Intake & Output 04/17/24 04/18/24 04/19/24 04/20/24 23:59 23:59 23:59 23:59 Intake Total 540 / 910 1800 / 2040 1300 / 1780 480 / 480 Output Total 0 / 0 0 / 0 0 / 0 0 / 0 Balance 540 / 910 1800 / 2040 1300 / 1780 480 / 480 Weight 95.283 kg 95.2 kg 102.92 kg 102.92 kg Microbiology Reports for the Last 24 Hours: Microbiology 04/18/24 08:16 Sputum - Expectorated Sputum Gram Stain - Final 04/18/24 08:16 Sputum - Expectorated Sputum Sputum Culture - Final 04/17/24 13:56 Blood Blood Culture - Preliminary NO GROWTH AFTER 48 HOURS 04/17/24 13:50 Blood Blood Culture - Preliminary NO GROWTH AFTER 48 HOURS The patient's infection will respond to the chosen ABx?: Yes (SPUTUM NORMAL BRYCE, BLOOD CX = NO GROWTH AT 24 HR, AFEBRILE OVER 24 HR) Is the patient receiving the right drug, dose, and route?: Yes Could a more targeted ABx be ordered?: No How long ABx needed (days)?: 5
[2024-04-20 09:56] LABS: Hypochromasia 2+; Lymphocytes % 11 % (10-50); Monocytes % 1 % (2-9); Neutrophils % 88 % (42-76); Platelet Estimate Normal; Total Cells Counted 100
[2024-04-20 11:25] LABS: POC Glucose,Bedside 224 (70-110)
[2024-04-20] MEDS: CEFTRIAXONE 1 GM 1 GM in 0.9 % SODIUM CHLORIDE 50 ML IV (13:21)
--- NOTE | 2024-04-20 13:27 | CT_ITS ---
PROCEDURE INFORMATION: Exam: CT Chest Without Contrast; Diagnostic Exam date and time: 04/20/2024 1:51 PM Age: 68 years old Clinical indication: Shortness of breath; Additional info: Shortness of breath, copd, chronic smoker TECHNIQUE: Imaging protocol: Diagnostic computed tomography of the chest without contrast. Radiation optimization: All CT scans at this facility use at least one of these dose optimization techniques: automated exposure control; mA and/or kV adjustment per patient size (includes targeted exams where dose is matched to clinical indication); or iterative reconstruction. COMPARISON: CT LUNG SCREENING 07/27/2023 2:24 PM FINDINGS: Tubes, catheters and devices: Transvenous pacemaker leads in the heart Lungs: Consolidation in the right lower lobe may represent atelectasis or pneumonia . Mild panlobular emphysematous changes Pleural spaces: Unremarkable. No pneumothorax. No pleural effusion. Heart: There is calcification of the aortic valve annulus. There is calcification of the mitral valve annulus. Coronary arteries: Coronary artery calcifications may indicate coronary artery disease. Lymph nodes: Unremarkable. No enlarged lymph nodes. Vasculature: Unremarkable. No aortic aneurysm. Gallbladder and biliary ducts: Cholecystectomy Kidneys: Nonobstructing left renal calculus. 15 mm simple cyst lateral right kidney. . No follow-up imaging recommended . Bones/joints: Unremarkable. No acute fracture. Soft tissues: Unremarkable. IMPRESSION: Consolidation in the right lower lobe may represent atelectasis or pneumonia COMMENTS: 1. Consistent with the [employer]'s Incidental Findings Committee white paper (J Am Whit Radiol 2018): Any incidental renal lesion less than 1 cm or classified as too small to characterize, or any incidental cystic renal lesion characterized as simple-appearing, is likely benign. No follow-up imaging is recommended for these lesions per consensus recommendations based on imaging criteria. 2. The presence of pulmonary emphysema on CT is an independent risk factor for lung cancer. In the absence of a history or active diagnosis of lung cancer, it is recommended that this patient with emphysema be evaluated for enrollment in a low dose CT lung cancer screening program.
--- NOTE | 2024-04-20 13:38 | HMH.ITSTN ---
spoke to RN regarding pt allergy to iodine and CT chest with contrast order. RN spoke to hospitalist and stated to do the scan without contrast. Order changed to chest without, verbal from hospitalist.
--- NOTE | 2024-04-20 13:39 | EXP.PN ---
Subjective *Date: 04/20/24 *Time: 13:39 Interval history: Patient states she feels little bit better today, but still has moderate dyspnea on exertion which she normally does not have. Improved wheezing today. Still requiring 4 to 5 L via nasal cannula, patient wears 2 to 4 L as needed at home. Denies chest pain, abdominal pain. Exam Data for Last 24 hours Vital signs and Labs for Last 24 Hours: Temp Pulse Resp BP Pulse Ox O2 Del Method O2 Flow Rate 97.6 F 70 19 120/49 L 95 Nasal Cannula 5 04/20/24 11:37 04/20/24 11:37 04/20/24 11:37 04/20/24 11:37 04/20/24 11:37 04/20/24 11:09 04/20/24 08:00 FiO2 50 04/17/24 21:45 Laboratory Results - last 24 hr 04/19/24 16:19: POC Glucose 312 H* 04/19/24 20:14: POC Glucose 305 H* 04/20/24 06:38: WBC 13.4 H, RBC 4.91, Hgb 13.7, Hct 46.0, MCV 93.7, MCH 27.8, MCHC 29.7 L, RDW 15.1, Plt Count 158, MPV 9.1, Neut % (Auto) 88.6 H, Lymph % (Auto) 7.6 L, [place] % (Auto) 3.6, Eos % (Auto) 0.0 L, Baso % (Auto) 0.2, Neut # (Auto) 11.9 H, Lymph # (Auto) 1.0, [place] # (Auto) 0.5, Eos # (Auto) 0.0, Baso # (Auto) 0.0, Total Counted 100, Neutrophils % (Manual) 88 H, Lymphocytes % (Manual) 11, Monocytes % (Manual) 1 L, Platelet Estimate Normal, Hypochromasia 2+, Sodium 138, Potassium 4.4, Chloride 105, Carbon Dioxide 29, Anion Gap 8.4, BUN 25 H, Creatinine 0.90, Estimated Creat Clear 85, Estimated GFR 62, Est GFR ( Amer) 75, Glucose 235 H, Calcium 9.5 04/20/24 11:15: POC Glucose 224 H I & O for Last 24 hours: Intake & Output 09/1904/18/24 04/19/24 04/20/24 23:59 23:59 23:59 23:59 Intake Total 540 / 910 1800 / 0 1300 / 1780 1440 / 1440 Output Total 0 / 0 0 / 0 0 / 0 0 / 0 Balance 540 / 910 1800 / 2040 1300 / 1780 1440 / 1440 Weight 95.283 kg 95.2 kg 102.92 kg 102.92 kg Microbiology Reports for the Last 24 Hours: Microbiology 04/18/24 08:16 Sputum - Expectorated Sputum Gram Stain - Final 04/18/24 08:16 Sputum - Expectorated Sputum Sputum Culture - Final 04/17/24 13:56 Blood Blood Culture - Preliminary NO GROWTH AFTER 48 HOURS 04/17/24 13:50 Blood Blood Culture - Preliminary NO GROWTH AFTER 48 HOURS Constitutional Constitutional: no acute distress *Routine HEENT Exam Head: Present normocephalic Eye: Present EOMI and PERRL ENT: Present mucous membranes moist *Routine Neck Exam Neck: Present supple; Absent lymphadenopathy *Routine Respiratory Exam Respiratory: Present wheezes and diminished air movement; Absent CTA bilaterally Comments: Mild wheezing in bilateral lung powers. *Routine Cardiovascular Exam Cardiovascular: Present RRR *Routine Abdominal Exam Abdominal: Present soft and normoactive bowel sounds; Absent tenderness *Routine Extremities Exam Extremities: Absent cyanosis, clubbing or edema *Routine Skin Exam Skin: Present warm; Absent rash *Routine Neurological Exam Neurological: Present alert and oriented X3 Assessment and Plan *Assessment and plan (1) Respiratory failure: Status: Acute Category: Medical Code(s): J96.90 - Respiratory failure, unspecified, unspecified whether with hypoxia or hypercapnia (2) Acute hypoxic on chronic hypercapnic respiratory failure: Status: Acute Category: Medical Code(s): J96.01 - Acute respiratory failure with hypoxia; J96.12 - Chronic respiratory failure with hypercapnia (3) PAF (paroxysmal atrial fibrillation): Status: Acute Category: Medical Code(s): I48.0 - Paroxysmal atrial fibrillation (4) Generalized anxiety disorder: Status: Acute Category: Medical Code(s): F41.1 - Generalized anxiety disorder (5) COPD (chronic obstructive pulmonary disease): Status: Chronic Qualifiers: COPD type: unspecified COPD Qualified Code(s): J44.9 - Chronic obstructive pulmonary disease, unspecified Category: Medical Code(s): J44.9 - Chronic obstructive pulmonary disease, unspecified (6) Acute exacerbation of chronic obstructive pulmonary disease: Status: Chronic Category: Medical Code(s): J44.1 - Chronic obstructive pulmonary disease with (acute) exacerbation Plan Yelitza Stallings is a 68-year-old female with a medical history significant for COPD (2 L O2 as needed at home) HFpEF, paroxysmal A-fib with pacemaker, type 2 diabetes, anxiety presented from her PCPs office (Dr. Jacinto) with worsening shortness of breath, clear productive cough. She states has been going on for about a week and has not gotten better. She denies chest pain, but does endorse recent sick contacts. She also states the battery on her pacemaker was replaced this Sunday. Workup in the ED revealed WBC 11.2, respiratory acidosis with hypercapnia on VBG pH 7.3, pCO2 56.5, BNP 140. Requiring 5 L via nasal cannula. Received breathing treatments, Solu-Medrol 125 mg with some improvement in respiratory effort. Case discussed with the ED provider and decision was made to admit patient for acute on chronic hypoxic, hypercapnic respiratory failure secondary to COPD exacerbation. #Acute hypoxic, hypercapnic respiratory failure #Acute COPD exacerbation ? Presented with 1 week onset of shortness of breath, clear productive cough worsening. ? Initial VBG consistent with respiratory acidosis with hypercapnia. ? CXR does not reveal acute process. ? Patient states she feels little bit better today, but still has moderate dyspnea on exertion which she normally does not have. Improved wheezing today. - Still requiring 4 to 5 L via nasal cannula, patient wears 2 to 4 L as needed at home. ? DuoNebs scheduled and as needed. ? Pulmicort twice daily. ? Prednisone 40 mg day 4/5 of steroids. Will give additional Solu-Medrol 40 mg dose tonight as well as patient states it helped her sleep well overnight. ? Given patient's persistent hypoxia in spite of improved exam today, will obtain CT chest and repeat ABG for further characterization. ? Follow-up CT chest. ? Follow-up repeat ABG. ? No antibiotics indicated at this time given no purulence or bacterial infectious symptoms. ? Wean O2 as tolerated. #Paroxysmal A-fib with pacemaker ? Currently rate controlled. ? Resume home medications once reconciled. ? Xarelto 20 mg. #HFpEF ? Stable and euvolemic. ? Resume home medications once reconciled. #Hypertension ? Resume home medications once reconciled and appropriate for BP. # Anxiety ? Resume home medications once reconciled. #Insulin-dependent type 2 diabetes ? Lantus 10 units scheduled. Resume home medications once reconciled. ? LDSSI, ACHS glucose checks. Adjust long-acting based on SSI. CODE STATUS: Full code DVT prophylaxis: Xarelto Diet: Cardiac
[2024-04-20] MEDS: RIVAROXABAN 10MG TABLET 20 MG PO (17:21)
[2024-04-20] MEDS: HYDROCODONE 10MG/APAP 325MG TAB 1 TAB PO (17:24)
--- NOTE | 2024-04-20 17:40 | PC.NURSE ---
decreased pt O2 to 4L, o2 sats 88%-90%. pt did c/o back pain and left shoulder pain, treated per MAR. glucose levels have been elevated this shift treated per MAR, overall pt states she feels better this shift.
[2024-04-20] MEDS: MONTELUKAST SODIUM 10MG TAB 10 MG PO (18:31)
[2024-04-20] MEDS: PANTOPRAZOLE 40MG TABLET 40 MG PO (20:12)
[2024-04-20] MEDS: ROPINIROLE HCL 0.25 MG TABLET PO (20:12)
[2024-04-20] MEDS: ATORVASTATIN 40MG TABLET 80 MG PO (20:12)
[2024-04-20] MEDS: METHYLPREDNISOLONE SOD SUCC 40MG VIAL 40 MG IM (20:12)
[2024-04-20] MEDS: LISINOPRIL 2.5MG TABLET 2.5 MG PO (20:12)
[2024-04-20] MEDS: INSULIN GLARGINE 100 UNITS/ML 3ML FLEXPEN 15 UNIT SQ (20:12)
[2024-04-20 20:34] LABS: POC Glucose,Bedside 322 (70-110)
[2024-04-21] VITALS (14 sets, daily range): BP systolic 129–145; BP diastolic 60–95; PULSE 69–84; RESP 16–24; TEMP 36.6–37; O2SAT 90–97; BMI 33.8
[2024-04-21] MEDS: humaLOG 100 UNITS/ML 10ML VIAL (SSI) SQ ×4 (05:40→21:05)
[2024-04-21 05:50] LABS: POC Glucose,Bedside 270 (70-110)
[2024-04-21] MEDS: BUDESONIDE 0.5MG/2ML NEB 0.5 MG IH ×2 (06:17→18:25)
[2024-04-21] MEDS: IPRATROPIUM/ALBUTEROL 3 ML NEB IH ×4 (06:17→23:08)
--- NOTE | 2024-04-21 06:32 | PC.NURSE ---
patient was on 4L NC at the beginning of the shift, RT changed patient over to a Venti mask for bed r/t desating the past 2 nights. 0600 patient was placed back on 4L NC by RT. BA has been on overnight r/t pt c/o dizziness when ambulating at times.
[2024-04-21 06:37] LABS: Basophils % 0.3 % (0.1-2.0); Chloride 106 mmol/L (98-107); Eosinophils % 0.2 % (0.1-12.0); Hematocrit 47.5 % (37.0-47.0); Hemoglobin 14.5 g/dL (12.2-16.2); Lymphocytes # 0.9 K/mm3 (0.7-4.5); Mean Corpuscular HGB Conc 30.6 g/dL (31.8-35.4); Mean Corpuscular Hemoglobin 28.2 pg (27.0-31.2); Mean Corpuscular Volume 92.3 fl (81-99); Monocytes # 0.5 K/mm3 (0.1-1.0); Monocytes % 3.6 % (1.7-9.3); Neutrophils # 11.3 K/mm3 (1.8-7.8); Platelet Count 172 K/mm3 (142-424); Potassium 4.3 mmoL/L (3.5-5.1); Red Blood Count 5.14 M/mm3 (4.20-5.40); Red Cell Distribution Width 15.4 % (11.5-17.5); Sodium 138 mmol/L (136-145); White Blood Count 12.7 K/mm3 (4.8-10.8)
[2024-04-21 06:40] LABS: Blood Urea Nitrogen 30 mg/dl (7-17); Creatinine Clearance Estimated 86 mL/min (50-200); Estimated Glomerular Filt Rate 55 ml/min (>60); GFR (African American) 66 ML/MIN (>60)
[2024-04-21 06:41] LABS: Anion Gap 7.3 mEq/L (5-15); Calcium 9.5 mg/dl (8.4-10.2); Carbon Dioxide 29 mmol/L (22.0-30.0); Glucose 273 mg/dl (74-100)
[2024-04-21 06:47] LABS: MANUAL DIFFERENTIAL MANUAL DIFFERENTIAL (MANUAL DIFF)
[2024-04-21] MEDS: predniSONE 20MG TAB 40 MG PO (08:41)
[2024-04-21] MEDS: BISOPROLOL 5MG TABLET 10 MG PO ×2 (08:42→21:04)
[2024-04-21] MEDS: GABAPENTIN 800MG TABLET 800 MG PO ×2 (08:42→21:05)
[2024-04-21] MEDS: FLUOXETINE 20MG CAPSULE 20 MG PO ×2 (08:42→21:05)
[2024-04-21] MEDS: BUSPIRONE HCL 10 MG TABLET PO ×2 (08:42→21:05)
[2024-04-21] MEDS: dilTIAZem ER 240MG CAPSULE 240 MG PO (08:42)
[2024-04-21 08:44] LABS: Lymphocytes % 6 % (10-50); Monocytes % 2 % (2-9); Neutrophils % 92 % (42-76); Platelet Estimate Normal; RBC Morphology Normal; Total Cells Counted 100
--- NOTE | 2024-04-21 09:50 | EXP.PULM.CON ---
History of Present Illness History of present illness: Ms. Stallings is a 68-year-old male greater than [id number] smoking history COPD, recurrent pneumonias and bronchiectasis presented to primary care physician with worsening respiratory status treatment plan was made to evaluate in the ER given her acute worsening respiratory symptoms were admitted to the hospital. Patient upon admission needing increased oxygen requirements and was admitted for further management. Patient admits worsening respiratory distress relatively sudden in onset a day prior to her presentation to Dr. Jacinto's office. [facility] Disclaimer: The information contained in this section may have been updated after the patient was seen, as this information can be updated by other users. Medical History (Updated 04/21/24 @ 13:01 by Kris Pabon MD) Pneumonia Pre-operative cardiovascular examination Pacemaker lead malfunction Pacemaker at end of battery life Vulvar cyst Candidal intertrigo Bronchiectasis, non-tuberculous COPD (chronic obstructive pulmonary disease) Acute exacerbation of chronic obstructive pulmonary disease Stopped smoking with greater than 30 pack year history History of asthma Family history of asthma Allergic rhinitis, unspecified History of 2019 novel coronavirus disease (COVID-19) COPD (chronic obstructive pulmonary disease) Acute respiratory failure with hypoxia COPD exacerbation Encounter for screening for malignant neoplasm of lung in current smoker with 30 pack year history or greater Stopped smoking with greater than 30 pack year history History of asthma Family history of asthma Allergic rhinitis History of 2019 novel coronavirus disease (COVID-19) COPD exacerbation Hyperlipemia PAF (paroxysmal atrial fibrillation) COPD (chronic obstructive pulmonary disease) On statin therapy Diabetes (~06/2020) Cardiac pacemaker in situ Fatigue HHD (hypertensive heart disease) Surgical History History of tonsillectomy History of cholecystectomy Hx of tonsillectomy History of arthroplasty of right knee Hx of cholecystectomy Family History Other Cancer Coronary artery disease Diabetes Hyperlipidemia Hypertension Social History Smoking Status: Former smoker tobacco type: cigarettes packs per day: 1 smoking status stop date: 09/12/2022 second hand exposure: Yes alcohol intake: never substance use type: denies use current occupational status: retired Travel in the last 8 weeks: None household members: none housing: house marital status: number of children: 0 current occupational exposures/hazards: No caffeine: Yes Review of Systems Constitutional Constitutional: Reports anorexia, Reports body ache(s) and Reports fatigue Eyes Eyes: Denies eye discharge, Denies dry eyes, Denies irritation and Denies itchy eyes ENT Ears, Nose, Mouth, and Throat: Denies epistaxis, Denies facial pain, Denies lip swelling and Denies throat swelling *Cardiovascular Cardiovascular: Reports dyspnea and Reports dyspnea on exertion *Respiratory Respiratory: Denies change in phlegm color, Reports chest congestion, Reports cough, Reports dyspnea, Reports dyspnea on exertion, Reports excessive phlegm production, Denies hemoptysis, Denies pain on inspiration, Denies pain with cough and Reports wheezing *Gastrointestinal Gastrointestinal: Denies abdominal pain, Denies belching and Denies cramping *Musculoskeletal Musculoskeletal: Reports back pain and Reports other (No small joint swelling or Pain) Psychiatric Psychiatric: Denies homicidal ideation and Denies suicidal ideation Endocrine Endocrine: Reports fatigue and Denies heat intolerance Hematologic/Lymphatic Hematologic/Lymphatic: Denies easy bleeding and Denies lymphadenopathy Allergic/Immunologic Allergic/Immunologic: Denies itchy eyes, Denies lip swelling, Denies throat swelling and Reports wheezing Pulmonology Exam Inpatient Vital signs and Labs for Last 24 Hours: Temp Pulse Resp BP Pulse Ox O2 Del Method O2 Flow Rate 98.2 F 70 19 141/72 H 91 L Nasal Cannula 4 04/21/24 08:00 04/21/24 08:00 04/21/24 08:00 04/21/24 08:00 04/21/24 08:00 04/21/24 08:00 04/21/24 06:31 FiO2 50 04/17/24 21:45 Laboratory Results - last 24 hr 04/20/24 06:38: Total Counted 100, Neutrophils % (Manual) 88 H, Lymphocytes % (Manual) 11, Monocytes % (Manual) 1 L, Platelet Estimate Normal, Hypochromasia 2+ 04/20/24 11:15: POC Glucose 224 H 04/20/24 20:06: POC Glucose 322 H* 04/21/24 05:32: POC Glucose 270 H 04/21/24 06:02: WBC 12.7 H, RBC 5.14, Hgb 14.5, Hct 47.5 H, MCV 92.3, MCH 28.2, MCHC 30.6 L, RDW 15.4, Plt Count 172, MPV 11.0 H, Neut % (Auto) 89.0 H, Lymph % (Auto) 7.0 L, [place] % (Auto) 3.6, Eos % (Auto) 0.2, Baso % (Auto) 0.3, Neut # (Auto) 11.3 H, Lymph # (Auto) 0.9, [place] # (Auto) 0.5, Eos # (Auto) 0.0, Baso # (Auto) 0.0, Total Counted 100, Neutrophils % (Manual) 92 H, Lymphocytes % (Manual) 6 L, Monocytes % (Manual) 2, Platelet Estimate Normal, RBC Morphology Normal, Sodium 138, Potassium 4.3, Chloride 106, Carbon Dioxide 29, Anion Gap 7.3, BUN 30 H, Creatinine 1.00, Estimated Creat Clear 86, Estimated GFR 55 L, Est GFR ( Amer) 66, Glucose 273 H, Calcium 9.5 I & O for Labs for Last 24 Hours: Intake & Output 04/18/24 04/19/24 04/20/24 04/21/24 23:59 23:59 23:59 23:59 Intake Total 1800 / 2040 1300 / 1780 2360 / 2360 Output Total 0 / 0 0 / 0 0 / 0 0 / 0 Balance 1800 / 2040 1300 / 1780 2360 / 2360 0 / 0 Weight 209 lb 14.081 oz 226 lb 14.4 oz 226 lb 14.396 oz 228 lb 6.4 oz Microbiology Reports for the Last 24 Hours: Microbiology 04/18/24 08:16 Sputum - Expectorated Sputum Gram Stain - Final 04/18/24 08:16 Sputum - Expectorated Sputum Sputum Culture - Final Constitutional: Present moderate distress Head: Present normocephalic and atraumatic ENT: Present normal exam, normal oropharynx and mucous membranes moist Neck: Present normal inspection and full ROM Respiratory: Present prolonged expiratory phase, respiratory distress, wheezes, crackles, diminished air movement and able to speak in complete sentences Cardiac: Present S1/S2, Tachycardia and radial pulses present GI: Present soft and distention; Absent tenderness or guarding Rectal (female): Present deferred (female): Present deferred Skin: Present intact; Absent cyanosis or jaundice Neuro: Present alert, awake and oriented x 3 Extremities: Present normal inspection; Absent clubbing or cyanosis Psychiatric: Present normal affect and cooperative Meds Home Medications and Allergies Home Medications ?Medication ?Instructions ?Recorded ?Confirmed ?Type blood sugar diagnostic (Easy Touch #100 strips 10/26/23 04/17/24 Rx Test Strip) pen needle, diabetic 32 gauge x #100 ea 01/28/24 04/17/24 Rx 1/4 (BD Ultra-Fine Micro Pen Needle) atorvastatin 80 mg tablet 80 mg PO DAILY #30 tabs 01/30/24 04/17/24 Rx blood-glucose meter,continuous #1 ea 01/30/24 04/17/24 Rx (Dexcom G6 [employer]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) blood-glucose sensor (Dexcom G6 #1 ea 01/30/24 04/17/24 Rx Sensor device) blood-glucose transmitter (Dexcom #1 ea 01/30/24 04/17/24 Rx G6 Transmitter device) insulin glargine 100 unit/mL (3 30 unit SQ BID 02/13/24 04/17/24 History mL) subcutaneous pen (Digital ReefaglZiffi KwikPen U-100 Insulin) empagliflozin 25 mg tablet 25 mg PO DAILY 90 days #90 tabs 02/20/24 04/17/24 Rx (Jardiance) buspirone 10 mg tablet 10 mg PO BID #60 tabs 03/05/24 04/17/24 Rx lancets 33 gauge (TRUEplus Lancets) #100 ea 04/07/24 04/17/24 History albuterol sulfate 90 mcg/actuation 2 puff inhalation Q6HP PRN 04/17/24 04/17/24 History aerosol inhaler Shortness Of Breath benzonatate 200 mg capsule 200 mg PO TIDP PRN cough 04/17/24 04/17/24 History bisoprolol fumarate 10 mg tablet 10 mg PO BID 04/17/24 04/17/24 History diltiazem HCl 240 mg 240 mg PO DAILY 04/17/24 04/17/24 History capsule,extended release 24 hr fluoxetine 20 mg capsule 20 mg PO BID 04/17/24 04/17/24 History fluticasone propionate 50 1 spray intranasal DAILY 04/17/24 04/17/24 History mcg/actuation nasal spray,suspension furosemide 40 mg tablet 40 mg PO DAILY 04/17/24 04/17/24 History gabapentin 800 mg tablet 800 mg PO BID 04/17/24 04/17/24 History hydrocodone 10 mg-acetaminophen 1 tab PO Q4HP PRN Moderate Pain 04/17/24 04/17/24 History 325 mg tablet (Scale Score 5-6) lisinopril 2.5 mg tablet 2.5 mg PO HS 04/17/24 04/17/24 History magnesium oxide 400 mg (241.3 mg 400 mg PO BID 04/17/24 04/17/24 History magnesium) tablet metformin 500 mg tablet 1,000 mg PO BID 04/17/24 04/17/24 History montelukast 10 mg tablet 10 mg PO PM 04/17/24 04/17/24 History pantoprazole 40 mg tablet,delayed 40 mg PO DAILY 04/17/24 04/17/24 History release rivaroxaban 20 mg tablet (Xarelto) 20 mg PO QPMWITHMEAL 04/17/24 04/17/24 History ropinirole 0.25 mg tablet 0.25 mg PO HS 04/17/24 04/17/24 History New Prescriptions to Start Prescriptions: Allergies Allergy/AdvReac Type Severity Reaction Status Date / Time verapamil Allergy Severe Rash Verified 04/17/24 15:25 Iodine and Iodide Containing Allergy Mild Rash Verified 04/17/24 15:25 Produc Penicillins [PENICILLINS] Allergy Unknown I-RASH Verified 04/17/24 15:25 Sulfa (Sulfonamide Allergy Unknown NA-NAUSEA/V Verified 04/17/24 15:25 Antibiotics) OMITING [SULFA (SULFONAMIDE ANTIBIOTICS)] Results Laboratory Findings 04/21/24 06:02 04/21/24 06:02 Abnormal lab findings: Abnormal Labs 04/17/24 04/17/24 04/17/24 12:24 12:28 18:07 WBC 11.2 H RBC 5.41 H Hct 50.2 H MCHC 30.5 L MPV Neut % (Auto) Lymph % (Auto) Eos % (Auto) Neut # (Auto) Neutrophils % (Manual) Lymphocytes % (Manual) Monocytes % (Manual) VBG pH 7.30 L VBG pCO2 56.5 H VBG pO2 44.3 H VBG Total CO2 28.9 H VBG O2 Saturation 78.9 H VBG Lactic Acid 2.4 H Chloride 110 H Carbon Dioxide 31 H Anion Gap BUN 22 H D Estimated GFR 55 L Glucose 145 H POC Glucose 222 H NT-Pro-B Natriuret Pep 140 H 04/17/24 04/18/24 04/18/24 20:04 05:53 11:43 WBC 12.4 H RBC Hct 47.4 H MCHC 29.5 L MPV Neut % (Auto) 90.2 H Lymph % (Auto) 6.1 L Eos % (Auto) 0.0 L Neut # (Auto) 11.2 H Neutrophils % (Manual) 84 H Lymphocytes % (Manual) Monocytes % (Manual) 1 L VBG pH VBG pCO2 VBG pO2 VBG Total CO2 VBG O2 Saturation VBG Lactic Acid Chloride 108 H Carbon Dioxide 31 H Anion Gap BUN 22 H Estimated GFR Glucose 180 H D POC Glucose 299 H 177 H NT-Pro-B Natriuret Pep 04/18/24 04/18/24 04/19/24 17:06 20:46 05:25 WBC RBC Hct MCHC MPV Neut % (Auto) Lymph % (Auto) Eos % (Auto) Neut # (Auto) Neutrophils % (Manual) Lymphocytes % (Manual) Monocytes % (Manual) VBG pH VBG pCO2 VBG pO2 VBG Total CO2 VBG O2 Saturation VBG Lactic Acid Chloride Carbon Dioxide Anion Gap BUN Estimated GFR Glucose POC Glucose 282 H 240 H 155 H NT-Pro-B Natriuret Pep 04/19/24 04/19/24 04/19/24 05:57 10:38 16:19 WBC 15.3 H RBC Hct MCHC 30.1 L MPV Neut % (Auto) Lymph % (Auto) Eos % (Auto) Neut # (Auto) 11.6 H Neutrophils % (Manual) Lymphocytes % (Manual) Monocytes % (Manual) VBG pH VBG pCO2 VBG pO2 VBG Total CO2 VBG O2 Saturation VBG Lactic Acid Chloride Carbon Dioxide 32 H Anion Gap 4.8 L BUN 23 H Estimated GFR 55 L Glucose 153 H POC Glucose 176 H 312 H* NT-Pro-B Natriuret Pep 04/19/24 04/20/24 04/20/24 20:14 06:38 11:15 WBC 13.4 H RBC Hct MCHC 29.7 L MPV Neut % (Auto) 88.6 H Lymph % (Auto) 7.6 L Eos % (Auto) 0.0 L Neut # (Auto) 11.9 H Neutrophils % (Manual) 88 H Lymphocytes % (Manual) Monocytes % (Manual) 1 L VBG pH VBG pCO2 VBG pO2 VBG Total CO2 VBG O2 Saturation VBG Lactic Acid Chloride Carbon Dioxide Anion Gap BUN 25 H Estimated GFR Glucose 235 H POC Glucose 305 H* 224 H NT-Pro-B Natriuret Pep 04/20/24 04/21/24 04/21/24 20:06 05:32 06:02 WBC 12.7 H RBC Hct 47.5 H MCHC 30.6 L MPV 11.0 H Neut % (Auto) 89.0 H Lymph % (Auto) 7.0 L Eos % (Auto) Neut # (Auto) 11.3 H Neutrophils % (Manual) 92 H Lymphocytes % (Manual) 6 L Monocytes % (Manual) VBG pH VBG pCO2 VBG pO2 VBG Total CO2 VBG O2 Saturation VBG Lactic Acid Chloride Carbon Dioxide Anion Gap BUN 30 H Estimated GFR 55 L Glucose 273 H POC Glucose 322 H* 270 H NT-Pro-B Natriuret Pep Assessment and Plan *Assessment and plan (1) Acute hypoxic on chronic hypercapnic respiratory failure: Status: Acute Category: Medical Code(s): J96.01 - Acute respiratory failure with hypoxia; J96.12 - Chronic respiratory failure with hypercapnia (2) Acute exacerbation of chronic obstructive pulmonary disease: Status: Chronic Category: Medical Code(s): J44.1 - Chronic obstructive pulmonary disease with (acute) exacerbation (3) Pneumonia: Status: Acute Category: Medical Code(s): J18.9 - Pneumonia, unspecified organism Plan Ms. Stallings is a 68-year-old male greater than [id number] smoking history COPD, recurrent pneumonias and bronchiectasis presented to primary care physician with worsening respiratory status treatment plan was made to evaluate in the ER given her acute worsening respiratory symptoms were admitted to the hospital. Patient upon admission needing increased oxygen requirements and was admitted for further management. Patient admits worsening respiratory distress relatively sudden in onset a day prior to her presentation to Dr. Jacinto's office. Afebrile. Hemodynamically stable. Mild neutrophil predominant leukocytosis upon admission relatively stable. Blood gas upon admission mild hypercarbic respiratory failure with a pH of 7.30 and pCO2 56.5. Comprehensive respiratory viral PCR panel negative CT chest upon admission right lower lobe consolidative findings concerning for pneumonia. No other acute airspace disease noted. Patient currently being managed for COPD exacerbation with steroids and nebulization therapies. On examination patient appeared to be in severe respiratory distress. Denies any productive phlegm. Diffuse wheezing on auscultation. Needing 5 L nasal oxygen supplementation to maintain her O2 saturation goal 90% and above while at baseline patient on room air saturating 90% and above. Prior sputum cultures positive for Klebsiella and stenotrophomonas. Completed 3-day course of ceftriaxone. No significant change in respiratory distress / O2 requirements. Plan: - Continue DuoNebs every 4 hours along with Pulmicort every 12 scheduled -Initiate levofloxacin to complete a total of 5-day course. Follow with repeat sputum cultures and CXR. -Continue oxygen supplementation to maintain O2 saturation goal of 90% and we will follow chest x-ray to further decide on the need for CT PE protocol
[2024-04-21] MEDS: EMPAGLIFLOZIN 10MG TABLET 20 MG PO (11:29)
[2024-04-21 12:14] LABS: POC Glucose,Bedside 283 (70-110)
[2024-04-21 12:14] LABS: POC Glucose,Bedside 234 (70-110)
[2024-04-21] MEDS: levoFLOXacin 750 MG TABLET PO (13:25)
[2024-04-21] MEDS: HYDROCODONE 10MG/APAP 325MG TAB 1 TAB PO (13:25)
--- NOTE | 2024-04-21 16:55 | P.PN_ITS ---
Subjective *Date: 04/21/24 *Time: 16:00 Interval history: Patient states she feels better today, dyspnea on exertion has improved. Currently on 4L. No chest pain. Exam Data for Last 24 hours Vital signs and Labs for Last 24 Hours: Temp Pulse Resp BP Pulse Ox O2 Del Method O2 Flow Rate 98.2 F 84 19 145/95 H 90 L Nasal Cannula 4 04/21/24 12:00 04/21/24 13:28 04/21/24 12:00 04/21/24 12:00 04/21/24 12:00 04/21/24 14:37 04/21/24 14:37 FiO2 50 04/17/24 21:45 Laboratory Results - last 24 hr 04/20/24 05:57: POC Glucose 234 H 04/20/24 20:06: POC Glucose 322 H* 04/21/24 05:32: POC Glucose 270 H 04/21/24 06:02: WBC 12.7 H, RBC 5.14, Hgb 14.5, Hct 47.5 H, MCV 92.3, MCH 28.2, MCHC 30.6 L, RDW 15.4, Plt Count 172, MPV 11.0 H, Neut % (Auto) 89.0 H, Lymph % (Auto) 7.0 L, [place] % (Auto) 3.6, Eos % (Auto) 0.2, Baso % (Auto) 0.3, Neut # (Auto) 11.3 H, Lymph # (Auto) 0.9, [place] # (Auto) 0.5, Eos # (Auto) 0.0, Baso # (Auto) 0.0, Total Counted 100, Neutrophils % (Manual) 92 H, Lymphocytes % (Manual) 6 L, Monocytes % (Manual) 2, Platelet Estimate Normal, RBC Morphology Normal, Sodium 138, Potassium 4.3, Chloride 106, Carbon Dioxide 29, Anion Gap 7. 3, BUN 30 H, Creatinine 1.00, Estimated Creat Clear 86, Estimated GFR 55 L, Est GFR ( Amer) 66, Glucose 273 H, Calcium 9.5 04/21/24 11:38: POC Glucose 283 H I & O for Last 24 hours: Intake & Output 04/18/24 04/19/24 04/20/24 04/21/24 23:59 23:59 23:59 23:59 Intake Total 1800 / 2040 1300 / 1780 2360 / 2360 1020 / 1020 Output Total 0 / 0 0 / 0 0 / 0 0 / 0 Balance 1799 / 2039 1300 / 1780 2360 / 2360 1020 / 1020 Weight 95.2 kg 102.92 kg 102.92 kg 103.6 kg Microbiology Reports for the Last 24 Hours: Microbiology 04/17/24 13:56 Blood Blood Culture - Preliminary NO GROWTH AFTER 4 DAYS 04/17/24 13:50 Blood Blood Culture - Preliminary NO GROWTH AFTER 4 DAYS Constitutional Constitutional: no acute distress *Routine HEENT Exam Head: Present normocephalic Eye: Present EOMI and PERRL ENT: Present mucous membranes moist *Routine Neck Exam Neck: Present supple; Absent lymphadenopathy *Routine Respiratory Exam Respiratory: Present wheezes and diminished air movement; Absent CTA bilaterally Comments: Mild wheezing in bilateral lung powers. *Routine Cardiovascular Exam Cardiovascular: Present RRR *Routine Abdominal Exam Abdominal: Present soft and normoactive bowel sounds; Absent tenderness *Routine Extremities Exam Extremities: Absent cyanosis, clubbing or edema *Routine Skin Exam Skin: Present warm; Absent rash *Routine Neurological Exam Neurological: Present alert and oriented X3 Assessment and Plan *Assessment and plan (1) Respiratory failure: Status: Acute Category: Medical Code(s): J96.90 - Respiratory failure, unspecified, unspecified whether with hypoxia or hypercapnia (2) Acute hypoxic on chronic hypercapnic respiratory failure: Status: Acute Category: Medical Code(s): J96.01 - Acute respiratory failure with hypoxia; J96.12 - Chronic respiratory failure with hypercapnia (3) PAF (paroxysmal atrial fibrillation): Status: Acute Category: Medical Code(s): I48.0 - Paroxysmal atrial fibrillation (4) Generalized anxiety disorder: Status: Acute Category: Medical Code(s): F41.1 - Generalized anxiety disorder (5) COPD (chronic obstructive pulmonary disease): Status: Chronic Qualifiers: COPD type: unspecified COPD Qualified Code(s): J44.9 - Chronic obstructive pulmonary disease, unspecified Category: Medical Code(s): J44.9 - Chronic obstructive pulmonary disease, unspecified (6) Acute exacerbation of chronic obstructive pulmonary disease: Status: Chronic Category: Medical Code(s): J44.1 - Chronic obstructive pulmonary disease with (acute) exacerbation Plan Yelitza Stallings is a 68-year-old female with a medical history significant for COPD (2 L O2 as needed at home) HFpEF, paroxysmal A-fib with pacemaker, type 2 diabetes, anxiety presented from her PCPs office (Dr. Jacinto) with worsening shortness of breath, clear productive cough. She states has been going on for about a week and has not gotten better. She denies chest pain, but does endorse recent sick contacts. She also states the battery on her pacemaker was replaced this Sunday. Workup in the ED revealed WBC 11.2, respiratory acidosis with hypercapnia on VBG pH 7.3, pCO2 56.5, BNP 140. Requiring 5 L via nasal cannula. Received breathing treatments, Solu-Medrol 125 mg with some improvement in respiratory effort. Case discussed with the ED provider and decision was made to admit patient for acute on chronic hypoxic, hypercapnic respiratory failure s econdary to COPD exacerbation. #Acute hypoxic, hypercapnic respiratory failure #Acute COPD exacerbation ? Presented with 1 week onset of shortness of breath, clear productive cough worsening. ? Initial VBG consistent with respiratory acidosis with hypercapnia. ? CXR does not reveal acute process. ? Patient states she feels better today, almost absent wheezing today. - Still requiring 4 to 5 L via nasal cannula, desaturating to 85% even with 5L. ? DuoNebs scheduled and as needed. ? Pulmicort twice daily. ? Prednisone 40 mg day 5/5 of steroids. ? CT chest shows consolidation vs atelectasis in RLL. After discussing with Dr. Pabon will start Levaquin for 7 days. - Consider CTPA if patient is not clinically improving. ? Wean O2 as tolerated, baseline has 2L as needed. #Paroxysmal A-fib with pacemaker ? Currently rate controlled. ? Resume home medications once reconciled. ? Xarelto 20 mg. #HFpEF ? Stable and euvolemic. ? Resume home medications once reconciled. #Hypertension ? Resume home medications once reconciled and appropriate for BP. # Anxiety ? Resume home medications once reconciled. #Insulin-dependent type 2 diabetes ? Lantus 20 units scheduled. ? LDSSI, ACHS glucose checks. Adjust long-acting based on SSI. CODE STATUS: Full code DVT prophylaxis: Xarelto Diet: Cardiac
[2024-04-21 17:17] LABS: POC Glucose,Bedside 319 (70-110)
[2024-04-21] MEDS: RIVAROXABAN 10MG TABLET 20 MG PO (17:33)
--- NOTE | 2024-04-21 18:09 | PC.NURSE ---
Pt on 4L NC which is her baseline. Pt has expiratory wheezing upon lung auscultation. she is ambulating to and from bathroom independently. Pt sat up on side of bed most of day. Pt c/o of headache one time today and was medicated per SEP. Pt preformed 6 min walk test with RT, but failed.
[2024-04-21] MEDS: MONTELUKAST SODIUM 10MG TAB 10 MG PO (19:25)
[2024-04-21 20:17] LABS: POC Glucose,Bedside 365 (70-110)
[2024-04-21] MEDS: PANTOPRAZOLE 40MG TABLET 40 MG PO (21:04)
[2024-04-21] MEDS: LISINOPRIL 2.5MG TABLET 2.5 MG PO (21:04)
[2024-04-21] MEDS: ATORVASTATIN 40MG TABLET 80 MG PO (21:05)
[2024-04-21] MEDS: INSULIN GLARGINE 100 UNITS/ML 3ML FLEXPEN 15 UNIT SQ (21:05)
[2024-04-21] MEDS: ROPINIROLE HCL 0.25 MG TABLET PO (21:05)
[2024-04-21] MEDS: ACETAMINOPHEN 325MG TAB 650 MG PO (23:15)
[2024-04-22] VITALS (11 sets, daily range): BP systolic 119–126; BP diastolic 62–75; PULSE 69–78; RESP 16–20; TEMP 36.7–37.2; O2SAT 91–93; BMI 33.4
[2024-04-22] MEDS: HYDROCODONE 10MG/APAP 325MG TAB 1 TAB PO (03:12)
--- NOTE | 2024-04-22 06:00 | XR_ITS ---
PROCEDURE INFORMATION: Exam: XR Chest Exam date and time: 04/22/2024 5:51 AM Age: 68 years old Clinical indication: Other: Pnm TECHNIQUE: Imaging protocol: Radiologic exam of the chest. Views: 1 view. COMPARISON: CT CHEST WO CON 04/20/2024 1:51 PM FINDINGS: Lungs: Unremarkable. No consolidation. Pleural spaces: Unremarkable. No pleural effusion. No pneumothorax. Heart/Mediastinum: Unremarkable. No cardiomegaly. Bones/joints: Unremarkable. IMPRESSION: No acute findings.
[2024-04-22 06:12] LABS: POC Glucose,Bedside 216 (70-110)
[2024-04-22] MEDS: humaLOG 100 UNITS/ML 10ML VIAL (SSI) SQ ×4 (06:16→21:01)
[2024-04-22 06:20] LABS: Blood Urea Nitrogen 30 mg/dl (7-17); Calcium 9.3 mg/dl (8.4-10.2); Carbon Dioxide 31 mmol/L (22.0-30.0); Chloride 106 mmol/L (98-107); Creatinine Clearance Estimated 77 mL/min (50-200); Estimated Glomerular Filt Rate 49 ml/min (>60); GFR (African American) 59 ML/MIN (>60); Glucose 246 mg/dl (74-100); Sodium 138 mmol/L (136-145)
[2024-04-22] MEDS: BUDESONIDE 0.5MG/2ML NEB 0.5 MG IH ×2 (06:21→18:11)
[2024-04-22] MEDS: IPRATROPIUM/ALBUTEROL 3 ML NEB IH ×4 (06:21→23:51)
[2024-04-22 06:28] LABS: Basophils # 0.1 K/mm3 (0-0.2); Basophils % 0.6 % (0.1-2.0); Eosinophils # 0.1 K/mm3 (0.0-0.4); Eosinophils % 0.5 % (0.1-12.0); Hemoglobin 14.3 g/dL (12.2-16.2); Lymphocytes # 2.7 K/mm3 (0.7-4.5); Lymphocytes % 20.1 % (10-50); Mean Corpuscular HGB Conc 30.4 g/dL (31.8-35.4); Mean Corpuscular Hemoglobin 28.4 pg (27.0-31.2); Mean Corpuscular Volume 93.4 fl (81-99); Mean Platelet Volume 9.9 fl (7.4-10.4); Monocytes # 0.8 K/mm3 (0.1-1.0); Monocytes % 6.2 % (1.7-9.3); Neutrophils # 9.7 K/mm3 (1.8-7.8); Neutrophils % 72.6 % (37.0-80.0); Platelet Count 163 K/mm3 (142-424); Red Blood Count 5.04 M/mm3 (4.20-5.40); Red Cell Distribution Width 15.4 % (11.5-17.5); White Blood Count 13.3 K/mm3 (4.8-10.8)
[2024-04-22] MEDS: FLUOXETINE 20MG CAPSULE 20 MG PO ×2 (08:27→21:00)
[2024-04-22] MEDS: dilTIAZem ER 240MG CAPSULE 240 MG PO (08:27)
[2024-04-22] MEDS: predniSONE 20MG TAB 40 MG PO (08:27)
[2024-04-22] MEDS: GABAPENTIN 800MG TABLET 800 MG PO ×2 (08:28→21:00)
[2024-04-22] MEDS: EMPAGLIFLOZIN 10MG TABLET 20 MG PO (08:28)
[2024-04-22] MEDS: BUSPIRONE HCL 10 MG TABLET PO ×2 (08:28→21:00)
[2024-04-22] MEDS: BISOPROLOL 5MG TABLET 10 MG PO ×2 (08:28→21:01)
--- NOTE | 2024-04-22 10:06 | P.PN_ITS ---
Subjective *Date: 04/22/24 *Time: 12:05 Interval history: No acute respiratory vents overnight. Patient admits only minimal improvement in her respiratory symptoms. Pulmonology Exam Inpatient Vital signs and Labs for Last 24 Hours: Temp Pulse Resp BP Pulse Ox O2 Del Method O2 Flow Rate 98.7 F 69 20 122/66 92 L Nasal Cannula 4 04/22/24 08:00 04/22/24 08:00 04/22/24 08:00 04/22/24 08:00 04/22/24 08:00 04/22/24 08:20 04/22/24 08:20 FiO2 50 04/17/24 21:45 Laboratory Results - last 24 hr 04/20/24 05:57: POC Glucose 234 H 04/21/24 11:38: POC Glucose 283 H 04/21/24 17:01: POC Glucose 319 H* 04/21/24 19:58: POC Glucose 365 H* 04/22/24 05:42: POC Glucose 216 H 04/22/24 05:46: WBC 13.3 H, RBC 5.04, Hgb 14.3, Hct 47.0, MCV 93.4, MCH 28.4, MCHC 30.4 L, RDW 15.4, Plt Count 163, MPV 9.9, Neut % (Auto) 72.6, Lymph % (Auto) 20.1, [place] % (Auto) 6.2, Eos % (Auto) 0.5, Baso % (Auto) 0.6, Neut # (Auto) 9.7 H, Lymph # (Auto) 2.7, [place] # (Auto) 0.8, Eos # (Auto) 0.1, Baso # (Auto) 0.1, Sodium 138, Potassium 4.0, Chloride 106, Carbon Dioxide 31 H, Anion Gap 5.0, BUN 30 H, Creatinine 1.10 H, Estimated Creat Clear 77, Estimated GFR 49 L, Est GFR ( Amer) 59, Glucose 246 H, Calcium 9.3 Temp Pulse Resp BP Pulse Ox O2 Del Method O2 Flow Rate 98.2 F 70 19 141/72 H 91 L Nasal Cannula 4 04/21/24 08:00 04/21/24 08:00 04/21/24 08:00 04/21/24 08:00 04/21/24 08:00 04/21/24 08:00 04/21/24 06:31 FiO2 50 04/17/24 21:45 Laboratory Results - last 24 hr 04/20/24 06:38: Total Counted 100, Neutrophils % (Manual) 88 H, Lymphocytes % (Manual) 11, Monocytes % (Manual) 1 L, Platelet Estimate Normal, Hypochromasia 2+ 04/20/24 11:15: POC Glucose 224 H 04/20/24 20:06: POC Glucose 322 H* 04/21/24 05:32: POC Glucose 270 H 04/21/24 06:02: WBC 12.7 H, RBC 5.14, Hgb 14.5, Hct 47.5 H, MCV 92.3, MCH 28.2, MCHC 30.6 L, RDW 15.4, Plt Count 172, MPV 11.0 H, Neut % (Auto) 89.0 H, Lymph % (Auto) 7.0 L, [place] % (Auto) 3.6, Eos % (Auto) 0.2, Baso % (Auto) 0.3, Neut # (Auto) 11.3 H, Lymph # (Auto) 0.9, [place] # (Auto) 0.5, Eos # (Auto) 0.0, Baso # (Auto) 0.0, Total Counted 100, Neutrophils % (Manual) 92 H, Lymphocytes % (Manual) 6 L, Monocytes % (Manual) 2, Platelet Estimate Normal, RBC Morphology Normal, Sodium 138, Potassium 4.3, Chloride 106, Carbon Dioxide 29, Anion Gap 7.3, BUN 30 H, Creatinine 1.00, Estimated Creat Clear 86, Estimated GFR 55 L, Est GFR ( Amer) 66, Glucose 273 H, Calcium 9.5 I & O for Labs for Last 24 Hours: Intake & Output 04/19/24 04/20/24 04/21/24 04/22/24 23:59 23:59 23:59 23:59 Intake Total 1300 / 1780 2360 / 2360 1530 / 1770 720 / 720 Output Total 0 / 0 0 / 0 0 / 0 0 / 0 Balance 1300 / 1780 2360 / 2360 1530 / 1770 720 / 720 Weight 226 lb 14.4 oz 226 lb 14.396 oz 228 lb 6.4 oz 225 lb 11.2 oz Intake & Output 09/2004/19/24 04/20/24 04/21/24 23:59 23:59 23:59 23:59 Intake Total 1799 / 1780 2360 / 2360 Output Total 0 / 0 0 / 0 0 / 0 0 / 0 Balance 1799 1300 / 1780 2360 / 2360 0 / 0 Weight 209 lb 14.081 oz 226 lb 14.4 oz 226 lb 14.396 oz 228 lb 6.4 oz Microbiology Reports for the Last 24 Hours: Microbiology 04/17/24 13:56 Blood Blood Culture - Preliminary NO GROWTH AFTER 4 DAYS 04/17/24 13:50 Blood Blood Culture - Preliminary NO GROWTH AFTER 4 DAYS Microbiology 04/18/24 08:16 Sputum - Expectorated Sputum Gram Stain - Final 04/18/24 08:16 Sputum - Expectorated Sputum Sputum Culture - Final Constitutional: Present moderate distress Head: Present normocephalic and atraumatic ENT: Present normal exam, normal oropharynx and mucous membranes moist Neck: Present normal inspection and full ROM Respiratory: Present prolonged expiratory phase, respiratory distress, wheezes, crackles, diminished air movement and able to speak in complete sentences Cardiac: Present S1/S2, Tachycardia and radial pulses present GI: Present soft and distention; Absent tenderness or guarding Rectal (female): Present deferred (female): Present deferred Skin: Present intact; Absent cyanosis or jaundice Neuro: Present alert, awake and oriented x 3 Extremities: Present normal inspection; Absent clubbing or cyanosis Psychiatric: Present normal affect and cooperative Assessment and Plan *Assessment and plan (1) Acute hypoxic on chronic hypercapnic respiratory failure: Status: Acute Category: Medical Code(s): J96.01 - Acute respiratory failure with hypoxia; J96.12 - Chronic respiratory failure with hypercapnia (2) Acute exacerbation of chronic obstructive pulmonary disease: Status: Chronic Category: Medical Code(s): J44.1 - Chronic obstructive pulmonary disease with (acute) exacerbation (3) Pneumonia: Status: Acute Category: Medical Code(s): J18.9 - Pneumonia, unspecified organism Plan Ms. Stallings is a 68-year-old male greater than [id number] smoking history COPD, recurrent pneumonias and bronchiectasis presented to primary care physician with worsening respiratory status treatment plan was made to evaluate in the ER given her acute worsening respiratory symptoms were admitted to the hospital. Patient upon admission needing increased oxygen requirements and was admitted for further management. Patient admits worsening respiratory distress relatively sudden in onset a day prior to her presentation to Dr. Jacinto's office. Afebrile. Hemodynamically stable. Mild neutrophil predominant leukocytosis upon admission relatively stable. Blood gas upon admission mild hypercarbic respiratory failure with a pH of 7.30 and pCO2 56.5. Comprehensive respiratory viral PCR panel negative CT chest upon admission right lower lobe consolidative findings concerning for pneumonia. No other acute airspace disease noted. Patient currently being managed for COPD exacerbation with steroids and nebulization therapies. On initial examination patient appeared to be in severe respiratory distress. Denies any productive phlegm. Diffuse wheezing on auscultation. Needing 5 L nasal oxygen supplementation to maintain her O2 saturation goal 90% and above while at baseline patient on room air saturating 90% and above. Prior sputum cultures positive for Klebsiella and stenotrophomonas. Completed 3-day course of ceftriaxone. No significant change in respiratory distress / O2 requirements. Interval update: Continue to have bilateral wheezing. No significant improvement in her respiratory status/oxygen for months, still needing 4 to 5 L nasal oxygen supplementation with saturations maintained at 90 to 92% No acute respiratory events overnight. Chest x-ray increased vascular congestion. 40 mg IV Lasix today f Plan: -Continue oxygen supplementation to maintain O2 saturation goal of 90% and above, currently on 4 L nasal cannula. - Continue DuoNebs every 4 hours along with Pulmicort every 12 scheduled -Continue levofloxacin to complete a total of 5-day course. -Continue prednisone 40 mg oral daily -Will hold off on performing CT PE protocol at this point of time. # Thank you for involving pulmonary in this patient care. Will continue to follow.
[2024-04-22] MEDS: FUROSEMIDE 40MG/4ML VIAL 40 MG IV (10:52)
[2024-04-22] MEDS: levoFLOXacin 750 MG TABLET PO (10:53)
[2024-04-22 10:54] LABS: POC Glucose,Bedside 193 (70-110)
[2024-04-22] MEDS: RIVAROXABAN 10MG TABLET 20 MG PO (17:09)
[2024-04-22] MEDS: MONTELUKAST SODIUM 10MG TAB 10 MG PO (17:31)
--- NOTE | 2024-04-22 20:18 | P.PN_ITS ---
Subjective *Date: 04/22/24 *Time: 23:11 Interval history: Oxygenation improved to 4 L. This is her baseline. Desats rapidly however with exertion. No nausea or vomiting. Tolerating p.o. intake. Afebrile. Medical Exam Vital signs and Labs for Last 24 Hours: Vital Signs Temp Pulse Pulse Resp BP Pulse Ox O2 Del Method 04/22/24 19:00 Nasal Cannula 04/22/24 18:12 75 04/22/24 18:12 78 04/22/24 17:00 Nasal Cannula 04/22/24 16:00 92 L Nasal Cannula 04/22/24 16:00 98.6 F 70 20 121/69 92 L Nasal Cannula 04/22/24 14:30 Nasal Cannula 04/22/24 13:00 Nasal Cannula 04/22/24 12:00 98.6 F 70 20 119/75 91 L Nasal Cannula 04/22/24 11:00 Nasal Cannula 04/22/24 10:55 71 04/22/24 10:55 77 04/22/24 08:20 Nasal Cannula 04/22/24 08:00 98.7 F 69 20 122/66 92 L Nasal Cannula 04/22/24 08:00 Nasal Cannula 04/22/24 06:33 Nasal Cannula 04/22/24 06:21 69 04/22/24 06:21 72 04/22/24 06:21 91 L Nasal Cannula 04/22/24 05:00 Nasal Cannula 04/22/24 04:00 98.1 F 70 16 123/65 92 L Nasal Cannula 04/22/24 03:00 Nasal Cannula 04/22/24 01:00 Nasal Cannula 04/22/24 00:00 98.2 F 71 16 120/63 93 L Nasal Cannula 04/21/24 23:09 74 04/21/24 23:09 74 04/21/24 23:00 Nasal Cannula 04/21/24 21:00 Nasal Cannula O2 Flow Rate 04/22/24 19:00 4 04/22/24 18:12 04/22/24 18:12 04/22/24 17:00 4 04/22/24 16:00 4 04/22/24 16:00 4 04/22/24 14:30 4 04/22/24 13:00 4 04/22/24 12:00 4 04/22/24 11:00 4 04/22/24 10:55 04/22/24 10:55 04/22/24 08:20 4 04/22/24 08:00 4 04/22/24 08:00 4 04/22/24 06:33 4 04/22/24 06:21 04/22/24 06:21 04/22/24 06:21 4 04/22/24 05:00 4 04/22/24 04:00 4 04/22/24 03:00 4 04/22/24 01:00 4 04/22/24 00:00 4 04/21/24 23:09 04/21/24 23:09 04/21/24 23:00 4 04/21/24 21:00 4 Intake and Output 04/22/24 04/22/24 04/22/24 07:59 15:59 23:59 Intake Total 240 / 1920 1080 / 1920 600 / 1920 Output Total 0 / 0 Balance 240 / 1920 1080 / 1920 600 / 1920 Intake: Intake, Oral Amount 240 / 1920 1080 / 1920 600 / 1920 Output: Output, Urine Amount 0 / 0 Other: Number of Unmeasured Voids 1 Weight 102.376 kg Patient Weight 04/22/24 23:59 Weight 102.376 kg Laboratory Results - last 24 hr 04/22/24 05:42: POC Glucose 216 H 04/22/24 05:46: WBC 13.3 H, RBC 5.04, Hgb 14.3, Hct 47.0, MCV 93.4, MCH 28.4, MC HC 30.4 L, RDW 15.4, Plt Count 163, MPV 9.9, Neut % (Auto) 72.6, Lymph % (Auto) 20.1, [place] % (Auto) 6.2, Eos % (Auto) 0.5, Baso % (Auto) 0.6, Neut # (Auto) 9.7 H, Lymph # (Auto) 2.7, [place] # (Auto) 0.8, Eos # (Auto) 0.1, Baso # (Auto) 0.1, Sodium 138, Potassium 4.0, Chloride 106, Carbon Dioxide 31 H, Anion Gap 5.0, BUN 30 H, Creatinine 1.10 H, Estimated Creat Clear 77, Estimated GFR 49 L, Est GFR ( Amer) 59, Glucose 246 H, Calcium 9.3 04/22/24 10:47: POC Glucose 193 H I & O for Labs for Last 24 Hours: Intake & Output 04/19/24 04/20/24 04/21/24 04/22/24 23:59 23:59 23:59 23:59 Intake Total 1300 / 1780 2360 / 2360 1530 / 1770 1919 Output Total 0 / 0 0 / 0 0 / 0 0 / 0 Balance 1300 / 1780 2360 / 2360 1530 / 1770 1919 Weight 102.92 kg 102.92 kg 103.6 kg 102.376 kg Microbiology Reports for the Last 24 Hours: Microbiology 04/17/24 13:56 Blood Blood Culture - Final NO GROWTH AFTER 5 DAYS 04/17/24 13:50 Blood Blood Culture - Final NO GROWTH AFTER 5 DAYS Constitutional: Present mild distress, obese and chronically ill appearing Head: Present atraumatic and normocephalic ENT: Present normal exam Neck: Present normal inspection Respiratory: Present prolonged expiratory phase, wheezes, distant breath sounds and diminished air movement; Absent rhonchi or crackles Cardiac: Present Reg Rate and Rhythm GI: Present soft and normal bowel sounds; Absent distention or tenderness Extremities: Present normal inspection and full ROM Skin: Present intact; Absent erythema Neuro: Present Grossly Intact, alert, awake, oriented x 3 and moves all extremities Assessment and Plan *Assessment and plan (1) Respiratory failure: Status: Acute Category: Medical Code(s): J96.90 - Respiratory failure, unspecified, unspecified whether with hypoxia or hypercapnia (2) Acute hypoxic on chronic hypercapnic respiratory failure: Status: Acute Category: Medical Code(s): J96.01 - Acute respiratory failure with hypoxia; J96.12 - Chronic respiratory failure with hypercapnia (3) PAF (paroxysmal atrial fibrillation): Status: Acute Category: Medical Code(s): I48.0 - Paroxysmal atrial fibrillation (4) Generalized anxiety disorder: Status: Acute Category: Medical Code(s): F41.1 - Generalized anxiety disorder (5) COPD (chronic obstructive pulmonary disease): Status: Chronic Qualifiers: COPD type: unspecified COPD Qualified Code(s): J44.9 - Chronic obstructive pulmonary disease, unspecified Category: Medical Code(s): J44.9 - Chronic obstructive pulmonary disease, unspecified (6) Acute exacerbation of chronic obstructive pulmonary disease: Status: Chronic Category: Medical Code(s): J44.1 - Chronic obstructive pulmonary disease with (acute) exacerbation Plan Yelitza Stallings is a 68-year-old female with a medical history significant for COPD (2 L O2 as needed at home) HFpEF, paroxysmal A-fib with pacemaker, type 2 diabetes, anxiety presented from her PCPs office (Dr. Jacinto) with worsening shortness of breath, clear productive cough. She states has been going on for about a week and has not gotten better. She denies chest pain, but does endorse recent sick contacts. She also states the battery on her pacemaker was replaced this Sunday. Workup in the ED revealed WBC 11.2, respiratory acidosis with hypercapnia on VBG pH 7.3, pCO2 56.5, BNP 140. Requiring 5 L via nasal cannula. Received breathing treatments, Solu-Medrol 125 mg with some improvement in respiratory effort. Case discussed with the ED provider and decision was made to admit patient for acute on chronic hypoxic, hypercapnic respiratory failure secondary to COPD exacerbation. Continues to require inpatient management. Pulmonology assisting with care. Anticipate discharge in the next day or 2. Problems addressed as follows: #Acute hypoxic, hypercapnic respiratory failure #Acute COPD exacerbation ? Continue supplemental oxygen for goal sats greater 90%. Discussed case with pulmonology today, recommends continuing DuoNebs every 4 hours and Pulmicort every 12 hours. Continue Levaquin to complete 5 days of antibiotics and steroids for milligrams daily with prednisone for [address] PE at this time. ? Patient states she feels better today, almost absent wheezing today. - Consider CTPA if patient is not clinically improving -White count 13. Repeat CBC, CMP, magnesium ordered for the morning. Kidney function normal with BUN 30, creatinine 1.1. Potassium normal at 4.0. #Paroxysmal A-fib with pacemaker # HFpEF # Hypertension ? Currently rate controlled. Xarelto 20 mg. - Continue diltiazem 240 mg extended release daily. Continue Lasix 40 mg daily. Continue bisoprolol 10 mg twice daily. -Can continue lisinopril 2.5 mg daily # Anxiety: Continue home buspirone 10 mg twice daily, Prozac 20 mg twice daily. #Insulin-dependent type 2 diabetes ? Lantus 20 units scheduled last night. Morning glucose 246. Will increase Lantus to 30 units nightly ? LDSSI, ACHS glucose checks. Adjust long-acting based on SSI. CODE STATUS: Full code DVT prophylaxis: Xarelto Diet: Cardiac
[2024-04-22 20:42] LABS: POC Glucose,Bedside 297 (70-110)
[2024-04-22] MEDS: LISINOPRIL 2.5MG TABLET 2.5 MG PO (21:00)
[2024-04-22] MEDS: PANTOPRAZOLE 40MG TABLET 40 MG PO (21:00)
[2024-04-22] MEDS: ROPINIROLE HCL 0.25 MG TABLET PO (21:00)
[2024-04-22] MEDS: ATORVASTATIN 40MG TABLET 80 MG PO (21:01)
[2024-04-22] MEDS: INSULIN GLARGINE 100 UNITS/ML 3ML FLEXPEN 20 UNIT SQ (21:01)
[2024-04-23] VITALS (7 sets, daily range): BP systolic 106–127; BP diastolic 59–73; PULSE 69–70; RESP 16–18; TEMP 36.6–37; O2SAT 91–94; BMI 32.6
[2024-04-23] MEDS: ACETAMINOPHEN 325MG TAB 650 MG PO ×2 (00:58→06:05)
[2024-04-23] MEDS: MELATONIN 5MG TABLET 5 MG PO (00:58)
--- NOTE | 2024-04-23 04:55 | PC.NURSE ---
Patient alert and oriented x4 this shift. Maintaining o2 stats >90% on 4L NC. Ambulating independently to/from restroom this shift. Has complained of a headache and not being able to sleep this shift. Medicated per SEP. Diminished lung sounds noted. No further needs expressed. Call light within reach.
[2024-04-23 05:49] LABS: POC Glucose,Bedside 201 (70-110)
[2024-04-23] MEDS: humaLOG 100 UNITS/ML 10ML VIAL (SSI) SQ ×2 (06:02→11:41)
[2024-04-23] MEDS: IPRATROPIUM/ALBUTEROL 3 ML NEB IH ×2 (06:14→13:08)
[2024-04-23] MEDS: BUDESONIDE 0.5MG/2ML NEB 0.5 MG IH (06:14)
[2024-04-23 07:01] LABS: Blood Urea Nitrogen 33 mg/dl (7-17); Calcium 9.2 mg/dl (8.4-10.2); Carbon Dioxide 32 mmol/L (22.0-30.0); Chloride 103 mmol/L (98-107); Creatinine Clearance Estimated 69 mL/min (50-200); Estimated Glomerular Filt Rate 44 ml/min (>60); GFR (African American) 54 ML/MIN (>60); Glucose 203 mg/dl (74-100); Sodium 137 mmol/L (136-145)
[2024-04-23 07:10] LABS: Basophils # 0.1 K/mm3 (0-0.2); Basophils % 0.4 % (0.1-2.0); Eosinophils # 0.1 K/mm3 (0.0-0.4); Eosinophils % 0.8 % (0.1-12.0); Hematocrit 47.4 % (37.0-47.0); Hemoglobin 14.5 g/dL (12.2-16.2); Lymphocytes # 3.6 K/mm3 (0.7-4.5); Lymphocytes % 25.2 % (10-50); Mean Corpuscular HGB Conc 30.6 g/dL (31.8-35.4); Mean Corpuscular Hemoglobin 28.2 pg (27.0-31.2); Mean Corpuscular Volume 92.3 fl (81-99); Mean Platelet Volume 8.8 fl (7.4-10.4); Monocytes # 0.8 K/mm3 (0.1-1.0); Monocytes % 5.8 % (1.7-9.3); Neutrophils # 9.7 K/mm3 (1.8-7.8); Neutrophils % 67.8 % (37.0-80.0); Platelet Count 159 K/mm3 (142-424); Red Blood Count 5.13 M/mm3 (4.20-5.40); Red Cell Distribution Width 15.1 % (11.5-17.5); White Blood Count 14.3 K/mm3 (4.8-10.8)
[2024-04-23 07:24] LABS: Anion Gap 5.5 mEq/L (5-15); Potassium 3.5 mmoL/L (3.5-5.1)
--- NOTE | 2024-04-23 08:10 | P.DS_ITS ---
General Admission date:: 04/18/24 Discharge date: 04/23/24 HPI HPI HPI: Yelitza Stallings is a 68-year-old female with a medical history significant for COPD (2 L O2 as needed at home) HFpEF, paroxysmal A-fib with pacemaker, type 2 diabetes, anxiety presented from her PCPs office (Dr. Jacinto) with worsening shortness of breath, clear productive cough. She states has been going on for about a week and has not gotten better. She denies chest pain, but does endorse recent sick contacts. She also states the battery on her pacemaker was replaced this Sunday. Workup in the ED revealed WBC 11.2, respiratory acidosis with hypercapnia on VBG pH 7.3, pCO2 56.5, BNP 140. Requiring 5 L via nasal cannula. Received breathing treatments, Solu-Medrol 125 mg with some improvement in respiratory effort. Case discussed with the ED provider and decision was made to admit patient for acute on chronic hypoxic, hypercapnic respiratory failure secondary to COPD exacerbation. Hospital Course Hospital Course Hospital Course: Yelitza Stallings is a 68-year-old female with a medical history significant for COPD (2 L O2 as needed at home) HFpEF, paroxysmal A-fib with pacemaker, type 2 diabetes, anxiety presented from her PCPs office (Dr. Jacinto) with worsening shortness of breath, clear productive cough. She states has been going on for about a week and has not gotten better. She denies chest pain, but does endorse recent sick contacts. She also states the battery on her pacemaker was replaced this Sunday. Workup in the ED revealed WBC 11.2, respiratory acidosis with hypercapnia on VBG pH 7.3, pCO2 56.5, BNP 140. Requiring 5 L via nasal cannula. Received breathing treatments, Solu-Medrol 125 mg with some improvement in respiratory effort. Case discussed with the ED provider and decision was made to admit patient for acute on chronic hypoxic, hypercapnic respiratory failure secondary to COPD exacerbation. Continues to require inpatient management. Pulmonology assisting with care. Did well during admission. Able to wean to baseline oxygen. Will continue to treat with steroids at discharge. Stable discharge home. Problems addressed as follows: #Acute hypoxic, hypercapnic respiratory failure #Acute COPD exacerbation ? Initially presented with increased oxygen requirement and respiratory distress. Patient's asthma component severely complicates her respiratory distress and leads to her exacerbations. Pulmonology assisted with care. Recommend continuing DuoNebs every 4 hours and Pulmicort during admission. Transitioned to levofloxacin to complete 5 days of antibiotics, completed on day of discharge. Transition to prednisone to complete 7 days total of steroids. Needs 1 more day after discharge. Overall feeling better. Able to ambulate maintain O2 sats on 4 L. Given her improvement, stable to discharge home to complete treatment as an outpatient. Follow-up with pulmonology in the near future as an outpatient #Paroxysmal A-fib with pacemaker # HFpEF # Hypertension ? Currently rate controlled. Xarelto 20 mg. Continue diltiazem 240 mg extended release daily. Continue Lasix 40 mg daily. Continue bisoprolol 10 mg twice daily. Continue lisinopril 2.5 mg daily # Anxiety: Continue home buspirone 10 mg twice daily, Prozac 20 mg twice daily. #Insulin-dependent type 2 diabetes ? Manage during admission with basal and short acting insulin. Resume home regimen at discharge. Glucose showing improvement. Total time spent on discharge 32 minutes in counseling, documentation, chart review, and direct care with patient. Exam Data for Last 24 hours Vital signs and Labs for Last 24 Hours: Temp Pulse Resp BP Pulse Ox O2 Del Method O2 Flow Rate 97.8 F 70 18 106/64 L 93 L Nasal Cannula 4 04/23/24 04:00 04/23/24 06:16 04/23/24 04:00 04/23/24 04:00 04/23/24 06:16 04/23/24 06:58 04/23/24 06:58 FiO2 50 04/17/24 21:45 Laboratory Results - last 24 hr 04/22/24 10:47: POC Glucose 193 H 04/22/24 20:27: POC Glucose 297 H 04/23/24 05:38: POC Glucose 201 H 04/23/24 05:49: WBC 14.3 H, RBC 5.13, Hgb 14.5, Hct 47.4 H, MCV 92.3, MCH 28.2, MCHC 30.6 L, RDW 15.1, Plt Count 159, MPV 8.8, Neut % (Auto) 67.8, Lymph % (Auto) 25.2, [place] % (Auto) 5.8, Eos % (Auto) 0.8, Baso % (Auto) 0.4, Neut # (Auto) 9.7 H, Lymph # (Auto) 3.6, [place] # (Auto) 0.8, Eos # (Auto) 0.1, Baso # (Auto) 0.1, Sodium 137, Potassium 3.5, Chloride 103, Carbon Dioxide 32 H, Anion Gap 5.5, BUN 33 H, Creatinine 1.20 H, Estimated Creat Clear 69, Estimated GFR 44 L, Est GFR ( Amer) 54 L, Glucose 203 H, Calcium 9.2 I & O for Last 24 hours: Intake & Output 04/20/24 04/21/24 04/22/24 04/23/24 23:59 23:59 23:59 23:59 Intake Total 2360 / 2360 1530 / 1770 1920 / 1920 Output Total 0 / 0 0 / 0 0 / 0 0 / 0 Balance 2360 / 2360 1530 / 1770 1920 / 1920 0 / 0 Weight 102.92 kg 103.6 kg 102.376 kg 99.932 kg Microbiology Reports for the Last 24 Hours: Microbiology 04/17/24 13:56 Blood Blood Culture - Final NO GROWTH AFTER 5 DAYS 04/17/24 13:50 Blood Blood Culture - Final NO GROWTH AFTER 5 DAYS Constitutional Constitutional: no acute distress (but easily short of breath ), obese, chronically ill appearing and cooperative *Routine HEENT Exam Head: Present normocephalic and atraumatic Eye: Present EOMI and PERRL ENT: Present mucous membranes moist and oropharynx clear *Routine Neck Exam Neck: Present supple and full ROM *Routine Respiratory Exam Respiratory: Present prolonged expiratory phase, wheezes (significantly improved, appreciated posteriorly), diminished air movement, normal respiratory effort (Slight increased work of breathing) and able to speak in complete sentences; Absent accessory muscle use, CTA bilaterally, respiratory distress or crackles *Routine Cardiovascular Exam Cardiovascular: Present RRR, Normal S1 and Normal S2; Absent murmur *Routine Abdominal Exam Abdominal: Present soft and normoactive bowel sounds; Absent tenderness, distended, rebound or guarding *Routine Rectal Exam Patient deferred: visual exam *Routine Exam Patient deferred: external exam *Routine Extremities Exam Extremities: Present full ROM, pulses intact and normal capillary refill; Absent edema or tenderness *Routine Skin Exam Skin: Present intact; Absent erythema *Routine Neurological Exam Neurological: Present alert, oriented X3, CN II-XII intact, moving all extremities, normal tone and normal speech; Absent sensory deficit, motor deficit or altered mental status Routine Psychiatric Exam Psychiatric: Present normal affect, normal thought process, cooperative and depressed; Absent anxious Results Data Completed and Pending Labs on day of discharge: Labs from last 24 hours 04/23/24 04/23/24 04/22/24 05:49 05:38 20:27 WBC 14.3 H RBC 5.13 Hgb 14.5 Hct 47.4 H MCV 92.3 MCH 28.2 MCHC 30.6 L RDW 15.1 Plt Count 159 MPV 8.8 Neut % (Auto) 67.8 Lymph % (Auto) 25.2 [place] % (Auto) 5.8 Eos % (Auto) 0.8 Baso % (Auto) 0.4 Neut # (Auto) 9.7 H Lymph # (Auto) 3.6 [place] # (Auto) 0.8 Eos # (Auto) 0.1 Baso # (Auto) 0.1 Sodium 137 Potassium 3.5 Chloride 103 Carbon Dioxide 32 H Anion Gap 5.5 BUN 33 H Creatinine 1.20 H Estimated Creat Clear 69 Estimated GFR 44 L Est GFR ( Amer) 54 L Glucose 203 H POC Glucose 201 H 297 H Calcium 9.2 04/22/24 10:47 WBC RBC Hgb Hct MCV MCH MCHC RDW Plt Count MPV Neut % (Auto) Lymph % (Auto) [place] % (Auto) Eos % (Auto) Baso % (Auto) Neut # (Auto) Lymph # (Auto) [place] # (Auto) Eos # (Auto) Baso # (Auto) Sodium Potassium Chloride Carbon Dioxide Anion Gap BUN Creatinine Estimated Creat Clear Estimated GFR Est GFR ( Amer) Glucose POC Glucose 193 H Calcium DS: Diagnosis Discharge Diagnosis (1) Respiratory failure: Status: Acute Code(s): J96.90 - Respiratory failure, unspecified, unspecified whether with hypoxia or hypercapnia (2) Acute hypoxic on chronic hypercapnic respiratory failure: Status: Acute Code(s): J96.01 - Acute respiratory failure with hypoxia; J96.12 - Chronic respiratory failure with hypercapnia (3) PAF (paroxysmal atrial fibrillation): Status: Acute Code(s): I48.0 - Paroxysmal atrial fibrillation (4) Generalized anxiety disorder: Status: Acute Code(s): F41.1 - Generalized anxiety disorder (5) COPD (chronic obstructive pulmonary disease): Status: Chronic Code(s): J44.9 - Chronic obstructive pulmonary disease, unspecified Qualifiers: COPD type: unspecified COPD Qualified Code(s): J44.9 - Chronic obstructive pulmonary disease, unspecified (6) Acute exacerbation of chronic obstructive pulmonary disease: Status: Chronic Code(s): J44.1 - Chronic obstructive pulmonary disease with (acute) exacerbation Meds Home Medications and Allergies Home Medications ?Medication ?Instructions ?Recorded ?Confirmed ?Type blood sugar diagnostic (Easy Touch #100 strips 10/26/23 04/17/24 Rx Test Strip) pen needle, diabetic 32 gauge x #100 ea 01/28/24 04/17/24 Rx 1/4 (BD Ultra-Fine Micro Pen Needle) atorvastatin 80 mg tablet 80 mg PO DAILY #30 tabs 01/30/24 04/17/24 Rx blood-glucose meter,continuous #1 ea 01/30/24 04/17/24 Rx (Dexcom G6 [employer]) blood-glucose sensor (Dexcom G6 #1 ea 01/30/24 04/17/24 Rx Sensor device) blood-glucose transmitter (Dexcom #1 ea 01/30/24 04/17/24 Rx G6 Transmitter device) insulin glargine 100 unit/mL (3 30 unit SQ BID 02/13/24 04/17/24 History mL) subcutaneous pen (Basaglar KwikPen U-100 Insulin) empagliflozin 25 mg tablet 25 mg PO DAILY 90 days #90 tabs 02/20/24 04/17/24 Rx (Jardiance) buspirone 10 mg tablet 10 mg PO BID #60 tabs 03/05/24 04/17/24 Rx lancets 33 gauge (TRUEplus Lancets) #100 ea 04/07/24 04/17/24 History albuterol sulfate 90 mcg/actuation 2 puff inhalation Q6HP PRN 04/17/24 04/17/24 History aerosol inhaler Shortness Of Breath benzonatate 200 mg capsule 200 mg PO TIDP PRN cough 04/17/24 04/17/24 History bisoprolol fumarate 10 mg tablet 10 mg PO BID 04/17/24 04/17/24 History diltiazem HCl 240 mg 240 mg PO DAILY 04/17/24 04/17/24 History capsule,extended release 24 hr fluoxetine 20 mg capsule 20 mg PO BID 04/17/24 04/17/24 History fluticasone propionate 50 1 spray intranasal DAILY 04/17/24 04/17/24 History mcg/actuation nasal spray,suspension furosemide 40 mg tablet 40 mg PO DAILY 04/17/24 04/17/24 History gabapentin 800 mg tablet 800 mg PO BID 04/17/24 04/17/24 History hydrocodone 10 mg-acetaminophen 1 tab PO Q4HP PRN Moderate Pain 04/17/24 04/17/24 History 325 mg tablet (Scale Score 5-6) lisinopril 2.5 mg tablet 2.5 mg PO HS 04/17/24 04/17/24 History magnesium oxide 400 mg (241.3 mg 400 mg PO BID 04/17/24 04/17/24 History magnesium) tablet metformin 500 mg tablet 1,000 mg PO BID 04/17/24 04/17/24 History montelukast 10 mg tablet 10 mg PO PM 04/17/24 04/17/24 History pantoprazole 40 mg tablet,delayed 40 mg PO DAILY 04/17/24 04/17/24 History release rivaroxaban 20 mg tablet (Xarelto) 20 mg PO QPMWITHMEAL 04/17/24 04/17/24 History ropinirole 0.25 mg tablet 0.25 mg PO HS 04/17/24 04/17/24 History prednisone 20 mg tablet 40 mg (2 x 20 mg) PO DAILY 1 day 04/23/24 Rx #2 tabs New Prescriptions to Start Prescriptions: Carlos Tsang Allergies Allergy/AdvReac Type Severity Reaction Status Date / Time verapamil Allergy Severe Rash Verified 04/17/24 15:25 Iodine and Iodide Containing Allergy Mild Rash Verified 04/17/24 15:25 Produc Penicillins [PENICILLINS] Allergy Unknown I-RASH Verified 04/17/24 15:25 Sulfa (Sulfonamide Allergy Unknown NA-NAUSEA/V Verified 04/17/24 15:25 Antibiotics) OMITING [SULFA (SULFONAMIDE ANTIBIOTICS)] Discharge Plan Disposition Patient Disposition: Home, Self-Care Condition: Fair Discharge Order Discharge Orders: Discharge Order (Routine); Ordered 04/23/24 Ordered By: Carlos Beatty Follow up Plan Follow up with: Eric Jacinto DO [Primary Care Provider] - 04/30/24 9:15 am Kris Pabon MD [Physician] - 05/02/24 11:00 am Prescriptions/Medication Reconciliation: New prednisone 20 mg Tablet 40 mg PO DAILY 1 Days Qty: 2 0RF Continued Jardiance 25 mg tablet 25 mg PO DAILY 90 Days Qty: 90 4RF (DME) lancets [TRUEplus Lancets] 33 gauge misc See Rx Instructions .ROUTE .MEDSUPPLY Qty: 100 Patient Comments: USE DIRECTED TO TEST BLOOD GLUCOSE LEVEL TWICE DAILY Rx Instructions: As directed insulin glargine [Basaglar KwikPen U-100 Insulin] 100 unit/mL (3 mL) insulin pen 30 unit SQ BID (DME) Dexcom G6 Sensor Device See Rx Instructions .ROUTE .MEDSUPPLY Qty: 1 3RF Rx Instructions: As directed (DME) Dexcom G6 [employer] Misc See Rx Instructions .ROUTE .MEDSUPPLY Qty: 1 0RF Rx Instructions: As directed (DME) Dexcom G6 Transmitter Device See Rx Instructions .ROUTE .MEDSUPPLY Qty: 1 0RF Rx Instructions: As directed atorvastatin 80 mg tablet 80 mg PO DAILY Qty: 30 2RF (DME) Easy Touch Test Strip Strip See Rx Instructions .ROUTE .COMPLEX Qty: 100 3RF Dose Instruction: USE TO test blood glucose THREE TIMES DAILY DIRECTED Rx Instructions: USE TO test blood glucose THREE TIMES DAILY DIRECTED (DME) pen needle, diabetic [BD Ultra-Fine Micro Pen Needle] 32 gauge x 1/4 needle See Rx Instructions .ROUTE .COMPLEX Qty: 100 6RF Dose Instruction: USE DIRECTED DAILY with insulin pen injections Rx Instructions: USE DIRECTED DAILY with insulin pen injections buspirone 10 mg tablet 10 mg PO BID Qty: 60 2RF furosemide 40 mg tablet 40 mg PO DAILY metformin 500 mg tablet 1,000 mg PO BID benzonatate 200 mg capsule 200 mg PO TIDP PRN (Reason: cough) diltiazem HCl 240 mg capsule,extended release 24hr 240 mg PO DAILY hydrocodone-acetaminophen 10-325 mg tablet 1 tab PO Q4HP PRN (Reason: Moderate Pain (Scale Score 5-6)) bisoprolol fumarate 10 mg tablet 10 mg PO BID magnesium oxide 400 mg (241.3 mg magnesium) tablet 400 mg PO BID gabapentin 800 mg tablet 800 mg PO BID ropinirole 0.25 mg tablet 0.25 mg PO HS pantoprazole 40 mg tablet,delayed release (DR/EC) 40 mg PO DAILY montelukast 10 mg tablet 10 mg PO PM albuterol sulfate 90 mcg/actuation HFA aerosol inhaler 2 puff inhalation Q6HP PRN (Reason: Shortness Of Breath) fluoxetine 20 mg capsule 20 mg PO BID fluticasone propionate 50 mcg/actuation spray,suspension 1 spray intranasal DAILY lisinopril 2.5 mg tablet 2.5 mg PO HS Xarelto 20 mg tablet 20 mg PO QPMWITHMEAL Problem Reconciliation Problems Reviewed?: Yes Patient Discharge Instructions ACTIVITY: Continue current activity DIET: continue same diet Patient Instructions: DI for Chronic Obstructive Pulmonary Disease, DI for Respiratory Failure Print Language: Kiswahili Providers Primary Care Provider: Eric Jacinto Admit Provider: Eric Anthony Attending Provider: Eric Anthony
[2024-04-23] MEDS: FLUOXETINE 20MG CAPSULE 20 MG PO (08:54)
[2024-04-23] MEDS: dilTIAZem ER 240MG CAPSULE 240 MG PO (08:54)
[2024-04-23] MEDS: predniSONE 20MG TAB 40 MG PO (08:54)
[2024-04-23] MEDS: BISOPROLOL 5MG TABLET 10 MG PO (08:54)
[2024-04-23] MEDS: EMPAGLIFLOZIN 10MG TABLET 20 MG PO (08:54)
[2024-04-23] MEDS: GABAPENTIN 800MG TABLET 800 MG PO (08:55)
[2024-04-23] MEDS: BUSPIRONE HCL 10 MG TABLET PO (08:55)
--- NOTE | 2024-04-23 09:58 | EXP.PULM.PN ---
Subjective *Date: 04/23/24 *Time: 12:05 Interval history: No acute respiratory vents overnight. Patient admits slight improvement in her respiratory status. Pulmonology Exam Inpatient Vital signs and Labs for Last 24 Hours: Temp Pulse Resp BP Pulse Ox O2 Del Method O2 Flow Rate 98.6 F 70 17 121/68 94 L Nasal Cannula 4 04/23/24 08:00 04/23/24 08:00 04/23/24 08:00 04/23/24 08:00 04/23/24 08:00 04/23/24 09:00 04/23/24 09:00 FiO2 50 04/17/24 21:45 Laboratory Results - last 24 hr 04/22/24 10:47: POC Glucose 193 H 04/22/24 20:27: POC Glucose 297 H 04/23/24 05:38: POC Glucose 201 H 04/23/24 05:49: WBC 14.3 H, RBC 5.13, Hgb 14.5, Hct 47.4 H, MCV 92.3, MCH 28.2, MCHC 30.6 L, RDW 15.1, Plt Count 159, MPV 8.8, Neut % (Auto) 67.8, Lymph % (Auto) 25.2, [place] % (Auto) 5.8, Eos % (Auto) 0.8, Baso % (Auto) 0.4, Neut # (Auto) 9.7 H, Lymph # (Auto) 3.6, [place] # (Auto) 0.8, Eos # (Auto) 0.1, Baso # (Auto) 0.1, Sodium 137, Potassium 3.5, Chloride 103, Carbon Dioxide 32 H, Anion Gap 5.5, BUN 33 H, Creatinine 1.20 H, Estimated Creat Clear 69, Estimated GFR 44 L, Est GFR ( Amer) 54 L, Glucose 203 H, Calcium 9.2 Temp Pulse Resp BP Pulse Ox O2 Del Method O2 Flow Rate 98.2 F 70 19 141/72 H 91 L Nasal Cannula 4 04/21/24 08:00 04/21/24 08:00 04/21/24 08:00 04/21/24 08:00 04/21/24 08:00 04/21/24 08:00 04/21/24 06:31 FiO2 50 04/17/24 21:45 Laboratory Results - last 24 hr 04/20/24 06:38: Total Counted 100, Neutrophils % (Manual) 88 H, Lymphocytes % (Manual) 11, Monocytes % (Manual) 1 L, Platelet Estimate Normal, Hypochromasia 2+ 04/20/24 11:15: POC Glucose 224 H 04/20/24 20:06: POC Glucose 322 H* 04/21/24 05:32: POC Glucose 270 H 04/21/24 06:02: WBC 12.7 H, RBC 5.14, Hgb 14.5, Hct 47.5 H, MCV 92.3, MCH 28.2, MCHC 30.6 L, RDW 15.4, Plt Count 172, MPV 11.0 H, Neut % (Auto) 89.0 H, Lymph % (Auto) 7.0 L, [place] % (Auto) 3.6, Eos % (Auto) 0.2, Baso % (Auto) 0.3, Neut # (Auto) 11.3 H, Lymph # (Auto) 0.9, [place] # (Auto) 0.5, Eos # (Auto) 0.0, Baso # (Auto) 0.0, Total Counted 100, Neutrophils % (Manual) 92 H, Lymphocytes % (Manual) 6 L, Monocytes % (Manual) 2, Platelet Estimate Normal, RBC Morphology Normal, Sodium 138, Potassium 4.3, Chloride 106, Carbon Dioxide 29, Anion Gap 7.3, BUN 30 H, Creatinine 1.00, Estimated Creat Clear 86, Estimated GFR 55 L, Est GFR ( Amer) 66, Glucose 273 H, Calcium 9.5 I & O for Labs for Last 24 Hours: Intake & Output 04/20/24 04/21/24 04/22/24 04/23/24 23:59 23:59 23:59 23:59 Intake Total 2360 / 2360 1530 / 1770 1919 340 / 340 Output Total 0 / 0 0 / 0 0 / 0 0 / 0 Balance 2360 / 2360 1530 / 0 1919 340 / 340 Weight 226 lb 14.396 oz 228 lb 6.4 oz 225 lb 11.2 oz 220 lb 5 oz Intake & Output 04/18/24 04/19/24 04/20/24 04/21/24 23:59 23:59 23:59 23:59 Intake Total 1799 / 0 2360 / 2360 Output Total 0 / 0 0 / 0 0 / 0 0 / 0 Balance 1799 / 2039 1300 / 1780 2360 / 2360 0 / 0 Weight 209 lb 14.081 oz 226 lb 14.4 oz 226 lb 14.396 oz 228 lb 6.4 oz Microbiology Reports for the Last 24 Hours: Microbiology 04/17/24 13:56 Blood Blood Culture - Final NO GROWTH AFTER 5 DAYS 04/17/24 13:50 Blood Blood Culture - Final NO GROWTH AFTER 5 DAYS Microbiology 04/18/24 08:16 Sputum - Expectorated Sputum Gram Stain - Final 04/18/24 08:16 Sputum - Expectorated Sputum Sputum Culture - Final Constitutional: Present moderate distress Head: Present normocephalic and atraumatic ENT: Present normal exam, normal oropharynx and mucous membranes moist Neck: Present normal inspection and full ROM Respiratory: Present prolonged expiratory phase, respiratory distress, wheezes, crackles, diminished air movement and able to speak in complete sentences Cardiac: Present S1/S2, Tachycardia and radial pulses present GI: Present soft and distention; Absent tenderness or guarding Rectal (female): Present deferred (female): Present deferred Skin: Present intact; Absent cyanosis or jaundice Neuro: Present alert, awake and oriented x 3 Extremities: Present normal inspection; Absent clubbing or cyanosis Psychiatric: Present normal affect and cooperative Assessment and Plan *Assessment and plan (1) Acute hypoxic on chronic hypercapnic respiratory failure: Status: Acute Category: Medical Code(s): J96.01 - Acute respiratory failure with hypoxia; J96.12 - Chronic respiratory failure with hypercapnia (2) Acute exacerbation of chronic obstructive pulmonary disease: Status: Chronic Category: Medical Code(s): J44.1 - Chronic obstructive pulmonary disease with (acute) exacerbation (3) Pneumonia: Status: Acute Category: Medical Code(s): J18.9 - Pneumonia, unspecified organism Plan Ms. Stallings is a 68-year-old male greater than [id number] smoking history COPD, recurrent pneumonias and bronchiectasis presented to primary care physician with worsening respiratory status treatment plan was made to evaluate in the ER given her acute worsening respiratory symptoms were admitted to the hospital. Patient upon admission needing increased oxygen requirements and was admitted for further management. Patient admits worsening respiratory distress relatively sudden in onset a day prior to her presentation to Dr. Jacinto's office. Afebrile. Hemodynamically stable. Mild neutrophil predominant leukocytosis upon admission relatively stable. Blood gas upon admission mild hypercarbic respiratory failure with a pH of 7.30 and pCO2 56.5. Comprehensive respiratory viral PCR panel negative CT chest upon admission right lower lobe consolidative findings concerning for pneumonia. No other acute airspace disease noted. Patient currently being managed for COPD exacerbation with steroids and nebulization therapies. On initial examination patient appeared to be in severe respiratory distress. Denies any productive phlegm. Diffuse wheezing on auscultation. Needing 5 L nasal oxygen supplementation to maintain her O2 saturation goal 90% and above while at baseline patient on room air saturating 90% and above. Prior sputum cultures positive for Klebsiella and stenotrophomonas. Completed 3-day course of ceftriaxone. No significant change in respiratory distress / O2 requirements. Interval update: Received 40 mg IV Lasix yesterday. Creatinine increased to 1.1-1.2. Chest x-ray from yesterday stable with no worsening/new infiltrates Plan: -Continue oxygen supplementation to maintain O2 saturation goal of 90% and above, currently on 3 to 4 L saturating 92% and above. - Continue DuoNebs every 4 hours along with Pulmicort every 12 scheduled upon discharge. Patient unable to afford inhalers at baseline and only an ablation therapies. -Continue levofloxacin to complete a total of 5-day course. -Continue prednisone 40 mg oral daily for a total of 7 days -Will hold off on performing CT PE protocol at this point of time. # Thank you for involving pulmonary in this patient care. Will follow the patient in pulmonary clinic 5 to 7 days postdischarge.
[2024-04-23] MEDS: levoFLOXacin 750 MG TABLET PO (11:32)
[2024-04-23 11:51] LABS: POC Glucose,Bedside 190 (70-110)
[2024-04-24 02:37] LABS: POC Glucose,Bedside 341 (70-110)
--- NOTE | 2024-04-24 09:47 | CARE MANAGER ---
Contacted patient related to hospital discharge. Patient states she is doing well. She has taken her steroids and is aware of her follow up appointments. She denies any questions or concerns at this time. BRITTANY Donovan
== END 2024-04-23 14:01 | disposition home or self-care (01) | DRG 981 ==
LOC: ER 12:33 → 2ND 16:11
PROVIDERS: Internal Medicine Adolescent Medicine; Admitting Provider Student in an Organized Health Care Education/Training Program; Emergency Provider Emergency Medicine; PCP Internal Medicine; Visit Provider Student in an Organized Health Care Education/Training Program
DX: J44.0 Chronic obstructive pulmonary disease with (acute) lower respiratory infection; J96.22 Acute and chronic respiratory failure with hypercapnia; J96.01 Acute respiratory failure with hypoxia; I50.30 Unspecified diastolic (congestive) heart failure; J47.9 Bronchiectasis, uncomplicated; J44.1 Chronic obstructive pulmonary disease with (acute) exacerbation; T82.110A Breakdown (mechanical) of cardiac electrode, initial encounter; Z45.010 Encounter for checking and testing of cardiac pacemaker pulse generator [battery]; I48.0 Paroxysmal atrial fibrillation; F41.1 Generalized anxiety disorder; Z99.81 Dependence on supplemental oxygen; Z79.84 Long term (current) use of oral hypoglycemic drugs; E11.9 Type 2 diabetes mellitus without complications; I11.0 Hypertensive heart disease with heart failure; Z79.4 Long term (current) use of insulin; F17.210 Nicotine dependence, cigarettes, uncomplicated; Z79.01 Long term (current) use of anticoagulants; Z79.899 Other long term (current) drug therapy
CPT/HCPCS: 33207; 33233; 33235; 36415; 71045; 71250; 80048; 80053; 82803; 82962; 83605; 83735; 83880; 84484; 85007; 85025; 85027; 86803; 87040; 87070; 87205; 87265; 87389; 87486; 87581; 87632; 87635; 93005; 94618; 94640; 94760; 94761; 99285; C1785; C1898; J0456; J0696; J1940; J2250; J2405; J2919; J3010; J3475; J7030; J7050; J7620

== ENCOUNTER 2024-04-24 19:06 | Emergency (ER) | payer MEDICARE, MEDICAID, SELFPAY ==
[2024-04-24 19:08] VITALS: BP 123/107; PULSE 70; RESP 20; TEMP 36.7; O2SAT 94; BMI 31.4
--- NOTE | 2024-04-24 19:16 | ECG_ITS ---
APPROVED REPORT Exam: Resting ECG HR:69 bpm ECG Measurements Heart Rate 69 AXES OK 165 P 113 QRSd 86 QRS 76 QT 363 T 78 QTc 383 Conclusion Atrial paced rhythm Electronically signed by : PAOLO GARDNER, 04/24/2024 21:44:08
--- NOTE | 2024-04-24 19:28 | XR_ITS ---
PROCEDURE INFORMATION: Exam: XR Chest Exam date and time: 04/24/2024 7:34 PM Age: 68 years old Clinical indication: Other: Pneumonia; Prior surgery; Surgery date: 3-7 days post-operative; Surgery type: Pacemaker TECHNIQUE: Imaging protocol: Radiologic exam of the chest. Views: 1 view. COMPARISON: CR XR CHEST PORTABLE 04/22/2024 5:51 AM FINDINGS: Tubes, catheters and devices: Surgical ada in place over the left chest wall. There is a left chest implanted cardiac device. Lungs: No evidence of acute pulmonary disease or infiltrates Pleural spaces: No large effusion or pneumothorax. Heart/Mediastinum: Stable cardiac and mediastinal contours. Bones/joints: No evidence of acute osseous abnormalities within the visualized portions of the thoracic spine and ribs. Osseous structures appear appropriate for patient age. IMPRESSION: No dense parenchymal consolidation, pleural effusion, or pneumothorax.
--- NOTE | 2024-04-24 19:38 | HMH.EDGENADL ---
Discharge Plan Disposition Patient Disposition: Home, Self-Care Prescriptions Prescriptions: New doxycycline hyclate 100 mg capsule 100 mg PO BID 7 Days Qty: 14 0RF No Action Jardiance 25 mg tablet 25 mg PO DAILY 90 Days Qty: 90 4RF (DME) lancets [TRUEplus Lancets] 33 gauge misc See Rx Instructions .ROUTE .MEDSUPPLY Qty: 100 Patient Comments: USE DIRECTED TO TEST BLOOD GLUCOSE LEVEL TWICE DAILY Rx Instructions: As directed insulin glargine [Basaglar KwikPen U-100 Insulin] 100 unit/mL (3 mL) insulin pen 30 unit SQ BID (DME) Dexcom G6 Sensor Device See Rx Instructions .ROUTE .MEDSUPPLY Qty: 1 3RF Rx Instructions: As directed (DME) Dexcom G6 Emergency Vehicle Operations Instructor Misc See Rx Instructions .ROUTE .MEDSUPPLY Qty: 1 0RF Rx Instructions: As directed (DME) Dexcom G6 Transmitter Device See Rx Instructions .ROUTE .MEDSUPPLY Qty: 1 0RF Rx Instructions: As directed atorvastatin 80 mg tablet 80 mg PO DAILY Qty: 30 2RF (DME) Easy Touch Test Strip Strip See Rx Instructions .ROUTE .COMPLEX Qty: 100 3RF Dose Instruction: USE TO test blood glucose THREE TIMES DAILY DIRECTED Rx Instructions: USE TO test blood glucose THREE TIMES DAILY DIRECTED (DME) pen needle, diabetic [BD Ultra-Fine Micro Pen Needle] 32 gauge x 1/4 needle See Rx Instructions .ROUTE .COMPLEX Qty: 100 6RF Dose Instruction: USE DIRECTED DAILY with insulin pen injections Rx Instructions: USE DIRECTED DAILY with insulin pen injections buspirone 10 mg tablet 10 mg PO BID Qty: 60 2RF furosemide 40 mg tablet 40 mg PO DAILY metformin 500 mg tablet 1,000 mg PO BID benzonatate 200 mg capsule 200 mg PO TIDP PRN (Reason: cough) diltiazem HCl 240 mg capsule,extended release 24hr 240 mg PO DAILY hydrocodone-acetaminophen 10-325 mg tablet 1 tab PO Q4HP PRN (Reason: Moderate Pain (Scale Score 5-6)) bisoprolol fumarate 10 mg tablet 10 mg PO BID magnesium oxide 400 mg (241.3 mg magnesium) tablet 400 mg PO BID gabapentin 800 mg tablet 800 mg PO BID ropinirole 0.25 mg tablet 0.25 mg PO HS pantoprazole 40 mg tablet,delayed release (DR/EC) 40 mg PO DAILY montelukast 10 mg tablet 10 mg PO PM albuterol sulfate 90 mcg/actuation HFA aerosol inhaler 2 puff inhalation Q6HP PRN (Reason: Shortness Of Breath) fluoxetine 20 mg capsule 20 mg PO BID fluticasone propionate 50 mcg/actuation spray,suspension 1 spray intranasal DAILY lisinopril 2.5 mg tablet 2.5 mg PO HS Xarelto 20 mg tablet 20 mg PO QPMWITHMEAL prednisone 20 mg Tablet 40 mg PO DAILY 1 Days Qty: 2 0RF Referrals Follow up/Referrals: Eric Jacinto DO [Primary Care Provider] - See instructions Activity Restrictions/Add. Instructions Additional Instructions/Restrictions: Call your family doctor to establish care for this visit to the emergency department and schedule follow-up within 48 hours to ensure improvement. If you have any worsening of your condition or any other concerning signs or symptoms, return to the emergency department or your primary care doctor for further evaluation. Doxycycline twice daily for 7 days Clinical Impressions Clinical Impression: Diabetes mellitus, Hyperglycemia, Right lower lobe pneumonia Instructions Patient Instructions: DI for Hyperglycemia -- Adult Print Language Print Language: Armenian Discharge ED Provider: Jann Gonzalez General Adult HPI General Chief complaint: Hyper/Hypoglycemia Stated complaint: Blood surgar [address] Jacinto Time Seen by Provider: 04/24/24 19:13 Mode of Arrival: Ambulatory Source of Information: Patient Limitations: No Limitations Description of Symptoms (Recalled from ER Triage Doc. by RN): pt was discharged from hospital yesterday for having a new battery put in pacemaker and being treated for pneumopnia, pt got home and on her glucometer her fbs was 535 so she came here bc its is never that high. upon triage fbs was 393 pt is jerome x4 and appropriate. pt denies any new pain or s/s History of Present Illness HPI narrative: Please note that above description of symptoms, in this electronic medical record under categorization of recalled from ER triage doctor by RN are reflective of an initial nursing assessment, however, is not reflective of my full history and physical exam that was personally taken and clarified. Consequentially, this preceding description of symptoms, which may include the patient's categorized chief complaint in the EMR, do not reflect my personal clinical impression, and the ultimate description of history of present illness and patient stated complaints should be deferred to this section of the note. Unless stated otherwise or congruent with this section of the note, additional signs, symptoms, or incongruence should be interpreted as inaccurate with my clinical impression. Related Data Home Medications ?Medication ?Instructions ?Recorded ?Confirmed insulin glargine 100 unit/mL (3 30 unit SQ BID 02/13/24 04/17/24 mL) subcutaneous pen (Basaglar KwikPen U-100 Insulin) lancets 33 gauge (TRUEplus Lancets) #100 ea 04/07/24 04/17/24 albuterol sulfate 90 mcg/actuation 2 puff inhalation Q6HP PRN 04/17/24 04/17/24 aerosol inhaler Shortness Of Breath benzonatate 200 mg capsule 200 mg PO TIDP PRN cough 04/17/24 04/17/24 bisoprolol fumarate 10 mg tablet 10 mg PO BID 04/17/24 04/17/24 diltiazem HCl 240 mg 240 mg PO DAILY 04/17/24 04/17/24 capsule,extended release 24 hr fluoxetine 20 mg capsule 20 mg PO BID 04/17/24 04/17/24 fluticasone propionate 50 1 spray intranasal DAILY 04/17/24 04/17/24 mcg/actuation nasal spray,suspension furosemide 40 mg tablet 40 mg PO DAILY 04/17/24 04/17/24 gabapentin 800 mg tablet 800 mg PO BID 04/17/24 04/17/24 hydrocodone 10 mg-acetaminophen 1 tab PO Q4HP PRN Moderate Pain 04/17/24 04/17/24 325 mg tablet (Scale Score 5-6) lisinopril 2.5 mg tablet 2.5 mg PO HS 04/17/24 04/17/24 magnesium oxide 400 mg (241.3 mg 400 mg PO BID 04/17/24 04/17/24 magnesium) tablet metformin 500 mg tablet 1,000 mg PO BID 04/17/24 04/17/24 montelukast 10 mg tablet 10 mg PO PM 04/17/24 04/17/24 pantoprazole 40 mg tablet,delayed 40 mg PO DAILY 04/17/24 04/17/24 release rivaroxaban 20 mg tablet (Xarelto) 20 mg PO QPMWITHMEAL 04/17/24 04/17/24 ropinirole 0.25 mg tablet 0.25 mg PO HS 04/17/24 04/17/24 Previous Rx's ?Medication ?Instructions ?Recorded blood sugar diagnostic (Easy Touch #100 strips 10/26/23 Test Strip) pen needle, diabetic 32 gauge x #100 ea 01/28/2408/02 (BD Ultra-Fine Micro Pen Needle) atorvastatin 80 mg tablet 80 mg PO DAILY #30 tabs 01/30/24 blood-glucose meter,continuous #1 ea 01/30/24 (Dexcom G6 Emergency Vehicle Operations Instructor) blood-glucose sensor (Dexcom G6 #1 ea 01/30/24 Sensor device) blood-glucose transmitter (Dexcom #1 ea 01/30/24 G6 Transmitter device) empagliflozin 25 mg tablet 25 mg PO DAILY 90 days #90 tabs 02/20/24 (Jardiance) buspirone 10 mg tablet 10 mg PO BID #60 tabs 03/05/24 prednisone 20 mg tablet 40 mg (2 x 20 mg) PO DAILY 1 day 04/23/24 #2 tabs doxycycline hyclate 100 mg capsule 100 mg PO BID 7 days #14 caps 04/24/24 Allergies Allergy/AdvReac Type Severity Reaction Status Date / Time verapamil Allergy Severe Rash Verified 04/17/24 15:25 Iodine and Iodide Containing Allergy Mild Rash Verified 04/17/24 15:25 Produc Penicillins [PENICILLINS] Allergy Unknown I-RASH Verified 04/17/24 15:25 Sulfa (Sulfonamide Allergy Unknown NA-NAUSEA/V Verified 04/17/24 15:25 Antibiotics) OMITING [SULFA (SULFONAMIDE ANTIBIOTICS)] [facility] Disclaimer: The information contained in this section may have been updated after the patient was seen, as this information can be updated by other users. Medical History (Updated 04/24/24 @ 21:02 by Jann Gonzalez MD) Pneumonia Pre-operative cardiovascular examination Pacemaker lead malfunction Pacemaker at end of battery life Vulvar cyst Candidal intertrigo Bronchiectasis, non-tuberculous COPD (chronic obstructive pulmonary disease) Acute exacerbation of chronic obstructive pulmonary disease Stopped smoking with greater than 30 pack year history History of asthma Family history of asthma Allergic rhinitis, unspecified History of 2019 novel coronavirus disease (COVID-19) COPD (chronic obstructive pulmonary disease) Acute respiratory failure with hypoxia COPD exacerbation Encounter for screening for malignant neoplasm of lung in current smoker with 30 pack year history or greater Stopped smoking with greater than 30 pack year history History of asthma Family history of asthma Allergic rhinitis History of 2019 novel coronavirus disease (COVID-19) COPD exacerbation Hyperlipemia PAF (paroxysmal atrial fibrillation) COPD (chronic obstructive pulmonary disease) On statin therapy Diabetes (~06/2020) Cardiac pacemaker in situ Fatigue HHD (hypertensive heart disease) Surgical History History of tonsillectomy History of cholecystectomy Hx of tonsillectomy History of arthroplasty of right knee Hx of cholecystectomy Family History Other Cancer Coronary artery disease Diabetes Hyperlipidemia Hypertension Social History Smoking Status: Former smoker tobacco type: cigarettes packs per day: 1 smoking status stop date: 09/12/2022 second hand exposure: Yes alcohol intake: never substance use type: denies use current occupational status: retired Travel in the last 8 weeks: None household members: none housing: house marital status: number of children: 0 current occupational exposures/hazards: No caffeine: Yes ROS Obtained: Yes All systems reviewed & no additional complaints except as documented Physical Exam General General appearance: alert Head Head exam: atraumatic and normocephalic Eye Eye exam: Present normal appearance, PERRL and EOMI Neck Neck exam: Present normal inspection, full ROM and trachea midline Respiratory Respiratory exam: Present wheezes (Minimal end expiratory); Absent respiratory distress, stridor, accessory muscle use or prolonged expiratory phase Cardiovascular Cardiovascular exam: Present regular rate, normal rhythm and other (Pulses equal symmetric in upper and lower extremities) Abdominal Exam Abdominal exam: Present soft; Absent distention, tenderness or pulsatile mass Extremities Exam Extremities exam: Absent edema Neurological Exam Neurological exam: Present alert, oriented X3, CN II-XII intact and normal gait; Absent motor sensory deficit Skin Skin exam: Present warm and dry; Absent diaphoresis or erythema Medical Decision Making Medical Records Medical records reviewed: Yes I reviewed the patient's medical records. Screening: Per USPSTF and CDC recommendations, given the prevalence of disease in our region, it is our hospital?s policy to screen for HIV and viral Hepatitis for all patients aged 18 and over and those with ongoing risk factors. Anibal Inquiry Pt receiving controlled substance: No Anibal was queried for this patient: No Vital Signs: 04/24/24 19:08 04/24/24 20:00 Temperature 98.1 F Temperature Source Oral Pulse Rate 73 Pulse Rate [Right Radial] 70 Respiratory Rate 20 Blood Pressure 142/74 H Blood Pressure [Right Arm] 123/107 H Blood Pressure Mean [Right Arm] 112 02 Sat by Pulse Oximetry 94 L 95 Oxygen Delivery Method Room Air Lab Data Lab Results 04/24/24 19:11: Urine Color Yellow, Urine Appearance Clear, Urine pH 6.0, Ur Specific Gaston <= 1.005, Urine Protein Negative, Urine Glucose (UA) 3+, Urine Ketones Negative, Urine Blood Negative, Urine Nitrate Negative, Urine Bilirubin Negative, Urine Urobilinogen 0.2, Ur Leukocyte Esterase Negative, Urine RBC Occasional, Urine WBC 5-10, Ur Squamous Epith Cells 20-50, Urine Bacteria 1+, Urine Yeast 1+ 04/24/24 19:23: WBC 19.0 H D, RBC 5.49 H, Hgb 15.6, Hct 52.0 H, MCV 94.7, MCH 28.4, MCHC 30.0 L, RDW 15.5, Plt Count 211 D, MPV 10.5 H, Neut % (Auto) 84.5 H, Lymph % (Auto) 9.1 L, Harding % (Auto) 5.5, Eos % (Auto) 0.3, Baso % (Auto) 0.7, Neut # (Auto) 16.1 H, Lymph # (Auto) 1.7, Harding # (Auto) 1.0, Eos # (Auto) 0.1, Baso # (Auto) 0.1, Total Counted 100, Neutrophils % (Manual) 82 H, Band Neutrophils % 1.0, Lymphocytes % (Manual) 8 L, Monocytes % (Manual) 9, Platelet Estimate Normal, RBC Morphology Normal, Sodium 133 L, Potassium 4.1, Chloride 101, Carbon Dioxide 27, Anion Gap 9.1, BUN 42 H D, Creatinine 1.00, Estimated Creat Clear 80, Estimated GFR 55 L, Est GFR ( Amer) 66 D, Glucose 388 H, Calcium 9.8, Total Bilirubin 0.6, AST 30, ALT 62, Alkaline Phosphatase 130 H, Troponin I < 0.01, Total Protein 6.8, Albumin 4.2, Globulin 2.6, Albumin/Globulin Ratio 1.6 04/24/24 19:32: VBG pH 7.39, VBG pCO2 42.9, VBG pO2 76.7 H, VBG HCO3 25.4, VBG Total CO2 26.8, VBG O2 Saturation 95.6 H, VBG Base Excess 0.5, VBG Lactic Acid 3.1 H 04/24/24 19:23 04/24/24 19:23 Orders (Tests/Meds): ED MEDICATIONS Generic Name Dose Route Start Last Admin Trade Name Freq PRN Reason Stop Dose Admin Lactated Ringer's 500 mls @ 250 mls/hr 04/24/24 20:17 04/24/24 20:30 Lactated Ringer's 1000 Ml Bag IV 04/24/24 22:16 250 mls/hr .Q2H ONE Administration Discontinued Medications Generic Name Dose Route Start Last Admin Trade Name Freq PRN Reason Stop Dose Admin Doxycycline Hyclate 100 mg 04/24/24 20:30 04/24/24 20:35 Doxycycline Hycl 100 Mg Tablet PO 04/24/24 20:31 100 mg ONCE ONE Administration Insulin Human Regular 5 unit 04/24/24 20:16 04/24/24 20:29 Insulin Human Regular 100 Units/Ml 10ml Vial 0.05 unit/kg (5 unit) 04/24/24 20:17 5 unit IV Administration ONCE ONE ORDERS Category Date Time Status XR chest portable Stat Exams 04/24/24 19:28 Completed CRP [C-Reactive Protein] Stat Lab 04/24/24 19:23 Received Complete Blood Count Auto Diff Stat Lab 04/24/24 19:23 Completed Comprehensive Metabolic Panel Stat Lab 04/24/24 19:23 Completed Procalcitonin Stat Lab 04/24/24 19:23 Received Troponin I Q3H Lab 04/24/24 19:23 Received Troponin I Q3H Lab 04/25/24 01:45 Ordered Troponin I Stat Lab 04/24/24 19:23 Completed Urinalysis and Microscopic Stat Lab 04/24/24 19:11 Completed Blood Culture Stat Micro 04/24/24 19:23 Ordered Venous Blood Gas Stat RT 04/24/24 19:32 Completed Medical Decision Narrative: 68-year-old female history of hypertension, hyperlipidemia, COPD on 4 L nasal cannula at home, paroxysmal A-fib on Xarelto, CHF and ischemic cardiomyopathy with AICD in place (battery changed 04/15), diabetes presenting with hyperglycemia. Patient states that she was just discharged on 04/23, yesterday. Had pneumonia and is currently on steroids and antibiotics. States that she took her last prednisone today. States that she forgot to take her SGLT2 inhibitor today. Also states that she forgot to take her evening dose of insulin. In addition to being on steroids, thinks this may have been why she checked her blood sugar just about an hour prior to arrival when she had blood sugar greater than 500. Given recent admission, patient came to the emergency department for further evaluation with EMS. On arrival, patient very well-appearing, no acute distress with no complaints at this time. History was obtained via conversation with patient and EMS. On arrival, patient hemodynamically stable, alert, oriented x4, appropriate, GCS 15, moving all extremities spontaneously, pupils equal and reactive to light. Full physical exam performed and significant for chronically ill appearing woman who is in no acute distress. She does appear anxious, but overall well. 2 L nasal cannula in place although she is saturating appropriately on room air. Lungs have end expiratory wheezes, no prolonged expiratory phase or focal breath sounds. Left upper chest recent surgical site without signs of infection. Tegaderm overlying. Cardiac exam within normal limits. Patient nontachycardic, mildly hypertensive, afebrile, nontachypneic. Differential includes iatrogenic hyperglycemia, medication noncompliance, UTI, pneumonia, cardiac ischemia, among others. Patient placed on continuous cardiac monitoring and continuous pulse ox with initial blood pressure 123/107, heart rate 70, saturation 94% on room air. Independent interpretation of EKG shows 69 beats minute atrial paced rhythm with no ST or T wave changes concerning for acute ischemia. Normal axis. Intervals within normal notes. Patient was given 500 mL LR and 5 units insulin for symptomatic management and correction of underlying abnormalities. Workup independently interpreted and significant for leukocytosis 19,000 with neutrophilia, but patient is on prednisone. VBG not acidotic, lactate elevated at 3.1. Hyponatremia 133, otherwise nonactionable electrolytes. Glucose elevated at 388 here. Troponin negative. On independent interpretation of imaging, improved streaking in left lower lung, but worsening airspace disease right lower lobe. See radiology read for full review of final results. Heart score 4. On reevaluation, patient resting comfortably, no acute complaints. She was given first dose of doxycycline here. Hospital medicine was contacted and consulted, case was discussed at length. Bedside shared decision-making was had between myself, hospital medicine, as well as patient. Ultimately, the patient chose home-going with oral antibiotics after a thorough discussion of the risks of doing so, including a discussion of potential alternative plans. These risks include but are not limited to clinical decompensation, halfway disability and . The patient appears capable of making this decision. I have advised the patient to immediately return if there are any further problems or if they change their mind about seeking further care. Because patient at baseline without signs or symptoms of clinical decompensation, deemed appropriate for discharge. Results were relayed to patient who voiced understanding and were agreeable to outpatient management and follow up. I discussed my clinical impression with patient and answered all questions. At this time, the evidence for any other entities in the differential is insufficient to warrant any further testing or ED observation. This was explained as well. Advisory was given that persistent or worsening symptoms require further evaluation. I confirmed the understanding of this discussion. Pastry Cook Apprentice disclaimer Much of this encounter note is an electronic arbitrator spoken language to printed text. Electronic arbitrator of the spoken language may permit errors. Although I have reviewed the note, some errors may still exist. Critical Care Critical Care Time Critical Care Time: No
[2024-04-24 19:41] LABS: Microscopic, Urine URINE MICROSCOPIC (MICROSCOPIC)
[2024-04-24 19:41] LABS: Basophils # 0.1 K/mm3 (0-0.2); Basophils % 0.7 % (0.1-2.0); Eosinophils # 0.1 K/mm3 (0.0-0.4); Eosinophils % 0.3 % (0.1-12.0); Hemoglobin 15.6 g/dL (12.2-16.2); Lymphocytes # 1.7 K/mm3 (0.7-4.5); Lymphocytes % 9.1 % (10-50); Mean Corpuscular Hemoglobin 28.4 pg (27.0-31.2); Mean Corpuscular Volume 94.7 fl (81-99); Mean Platelet Volume 10.5 fl (7.4-10.4); Monocytes % 5.5 % (1.7-9.3); Neutrophils # 16.1 K/mm3 (1.8-7.8); Neutrophils % 84.5 % (37.0-80.0); Platelet Count 211 K/mm3 (142-424); Red Blood Count 5.49 M/mm3 (4.20-5.40); Red Cell Distribution Width 15.5 % (11.5-17.5)
[2024-04-24 19:44] LABS: Appearance,Urine CLEAR (Clear); Bilirubin,Urine Negative (Negative); Blood, Urine Negative (Negative); Color,Urine YELLOW (Yellow); Glucose,Urine (UA) 3+ (Negative); Ketones,Urine Negative (Negative); Leukocyte Esterase,Urine Negative (Negative); Nitrate,Urine Negative (Negative); Protein,Urine Negative (Negative); Specific Gravity, Urine <= 1.005 (1.005-1.030); Urobilinogen,Urine 0.2 EU/dl (0.2)
[2024-04-24 19:44] LABS: VBG Base Excess 0.5 mmol/L (-2.4-2.3); VBG HCO3 25.4 mmol/L (23-30); VBG Oxygen Saturation 95.6 % (50-70); VBG PCO2 42.9 mmol/L (35-51); VBG PH 7.39 mmol/L (7.31-7.41); VBG PO2 76.7 mmol/L (28-40); VBG Total CO2 26.8 mmol/L (23-27)
[2024-04-24 19:45] LABS: Lactate Venous 3.1 mmol/L (0.4-2.0)
[2024-04-24 19:47] LABS: MANUAL DIFFERENTIAL MANUAL DIFFERENTIAL (MANUAL DIFF)
[2024-04-24 19:48] LABS: Albumin Level 4.2 g/dl (3.5-5.0); Chloride 101 mmol/L (98-107); Sodium 133 mmol/L (136-145)
[2024-04-24 19:49] LABS: Potassium 4.1 mmoL/L (3.5-5.1)
[2024-04-24 19:51] LABS: Alanine Aminotransferase 62 U/L (12-78); Albumin/Globulin Ratio 1.6 (1.1-1.8); Alkaline Phosphatase 130 U/L (38-126); Anion Gap 9.1 mEq/L (5-15); Aspartate Amino Transferase 30 U/L (14-36); Bilirubin,Total 0.6 mg/dl (0.2-1.3); Blood Urea Nitrogen 42 mg/dl (7-17); Carbon Dioxide 27 mmol/L (22.0-30.0); Creatinine Clearance Estimated 80 mL/min (50-200); Estimated Glomerular Filt Rate 55 ml/min (>60); GFR (African American) 66 ML/MIN (>60); Globulin 2.6 g/dL (1.3-3.2); Total Protein,Serum 6.8 g/dl (6.3-8.2)
[2024-04-24 19:52] LABS: Bacteria,Urine 1+ /lpf; RBC,Urine Occasional #/hpf (0-3); Squamous Epithelial Cell,Urine 20-50 #/hpf (0-5); Yeast,Urine 1+ /lpf
[2024-04-24 19:52] LABS: Calcium 9.8 mg/dl (8.4-10.2); Glucose 388 mg/dl (74-100)
[2024-04-24 20:00] VITALS: BP 142/74; PULSE 73; O2SAT 95
[2024-04-24 20:11] LABS: Troponin I < 0.01 ng/ml (0.00-0.034)
[2024-04-24] MEDS: INSULIN HUMAN REGULAR 100 UNITS/ML 10ML VIAL 5 UNIT IV (20:29)
[2024-04-24 20:30] VITALS: BP 140/77; PULSE 70; O2SAT 95
[2024-04-24 20:30] LABS: Lymphocytes % 8 % (10-50); Monocytes % 9 % (2-9); Neutrophils % 82 % (42-76); Platelet Estimate Normal; Total Cells Counted 100
[2024-04-24] MEDS: LACTATED RINGERS 1000ML 500 ML 250 ML IV (20:30)
[2024-04-24 20:31] LABS: RBC Morphology Normal
[2024-04-24] MEDS: DOXYCYCLINE HYCL 100 MG TABLET PO (20:35)
[2024-04-24 21:00] VITALS: BP 136/80; PULSE 70; O2SAT 95
[2024-04-24 21:14] VITALS: BP 136/80; PULSE 70; RESP 20; TEMP 36.7; O2SAT 95
[2024-04-24 21:17] LABS: C-Reactive Protein 0.6 mg/L (0-4)
[2024-04-24 21:28] LABS: Troponin I < 0.01 ng/ml (0.00-0.034)
[2024-04-24 21:31] LABS: Procalcitonin 0.076 ng/mL (0.0-2.0)
== END 2024-04-24 21:15 | disposition home or self-care (01) ==
PROVIDERS: Emergency Provider Emergency Medicine; PCP Internal Medicine
DX: E11.65 Type 2 diabetes mellitus with hyperglycemia (principal); R74.02 Elevation of levels of lactic acid dehydrogenase [LDH]; E87.1 Hypo-osmolality and hyponatremia; D72.829 Elevated white blood cell count, unspecified; J18.9 Pneumonia, unspecified organism; I25.5 Ischemic cardiomyopathy; Z95.0 Presence of cardiac pacemaker; I10 Essential (primary) hypertension; Z79.4 Long term (current) use of insulin
CPT/HCPCS: 71045; 80053; 81001; 82803; 84145; 84484; 85007; 85025; 85027; 86140; 87040; 93005; 96360; 99285; J7120

== ENCOUNTER 2024-06-12 11:00 | Outpatient (CLI) | payer MEDICARE, MEDICAID, SELFPAY ==
[2024-06-12 17:54] LABS: Microscopic, Urine URINE MICROSCOPIC (MICROSCOPIC)
[2024-06-12 18:19] LABS: Appearance,Urine CLEAR (Clear); Bilirubin,Urine Negative (Negative); Blood, Urine Negative (Negative); Color,Urine YELLOW (Yellow); Glucose,Urine (UA) 2+ (Negative); Ketones,Urine Negative (Negative); Leukocyte Esterase,Urine Negative (Negative); Nitrate,Urine Negative (Negative); Protein,Urine Negative (Negative); Urobilinogen,Urine 0.2 EU/dl (0.2)
[2024-06-12 18:40] LABS: Anion Gap 10.6 mEq/L (5-15); Blood Urea Nitrogen 19 mg/dl (7-17); Carbon Dioxide 30 mmol/L (22.0-30.0); Chloride 103 mmol/L (98-107); Estimated Glomerular Filt Rate 62 ml/min (>60); GFR (African American) 75 ML/MIN (>60); Glucose 181 mg/dl (74-100); Potassium 4.6 mmoL/L (3.5-5.1); Sodium 139 mmol/L (136-145)
[2024-06-12 18:53] LABS: Bacteria,Urine 2+ /lpf
[2024-06-12 18:54] LABS: Mucus,Urine 2+ /lpf; Yeast,Urine 1+ /lpf
[2024-06-19 11:14] LABS: Osmolality, Urine 798 mOsmol/kg (.)
== END 2024-06-12 23:59 | disposition home or self-care (01) ==
LOC: LAB.DROPOF 06-13 07:16
PROVIDERS: PCP Internal Medicine; Visit Provider Internal Medicine
DX: E11.69 Type 2 diabetes mellitus with other specified complication (principal); Z79.4 Long term (current) use of insulin; F11.90 Opioid use, unspecified, uncomplicated; Z91.148 Patient's other noncompliance with medication regimen for other reason; E66.9 Obesity, unspecified; Z79.899 Other long term (current) drug therapy
CPT/HCPCS: 80048; 81001; 83935; 84540; 87086

== ENCOUNTER 2024-07-07 16:48 | Emergency (ER) | payer MEDICARE, MEDICAID, SELFPAY ==
[2024-07-07] VITALS (7 sets, daily range): BP systolic 105–125; BP diastolic 45–71; PULSE 68–76; RESP 16–22; TEMP 36.6; O2SAT 88–97; BMI 31.7
--- NOTE | 2024-07-07 16:50 | PC.NURSE ---
PT ARRIVES AT 88% ON ROOM AIR, PT PLACED ON HOME O2 AT 4L/NC
--- NOTE | 2024-07-07 16:59 | ECG_ITS ---
APPROVED REPORT Exam: Resting ECG HR:69 bpm ECG Measurements Heart Rate 69 AXES MO 159 P 96 QRSd 84 QRS 78 QT 392 T 83 QTc 412 Conclusion ELECTRONIC ATRIAL PACEMAKER ABNORMAL RHYTHM ECG UNCONFIRMED REPORT Electronically signed by : SIM GOMEZ, 07/08/2024 06:44:51
--- NOTE | 2024-07-07 17:13 | XR_ITS ---
PROCEDURE INFORMATION: Exam: XR Chest Exam date and time: 07/07/2024 5:12 PM Age: 69 years old Clinical indication: Shortness of breath; Additional info: SOA TECHNIQUE: Imaging protocol: Radiologic exam of the chest. Views: 1 view. COMPARISON: CR XR CHEST PORTABLE 04/24/2024 7:34 PM FINDINGS: Tubes, catheters and devices: There is a left chest implanted cardiac device. Lungs: No evidence of acute pulmonary disease or infiltrates Pleural spaces: No large effusion or pneumothorax. Heart/Mediastinum: Stable cardiac and mediastinal contours. Vasculature: There are calcifications of the aortic arch. Bones/joints: No evidence of acute osseous abnormalities within the visualized portions of the thoracic spine and ribs. Osseous structures appear appropriate for patient age. IMPRESSION: No dense parenchymal consolidation, pleural effusion, or pneumothorax.
[2024-07-07] MEDS: IPRATROPIUM/ALBUTEROL 3 ML NEB 6 ML IH (17:21)
[2024-07-07] MEDS: METHYLPREDNISOLONE SOD SUCC 125MG VIAL 125 MG IV (17:21)
--- NOTE | 2024-07-07 17:21 | [facility].EDCP ---
Discharge Plan Disposition Patient Disposition: Home, Self-Care Condition: Good Prescriptions Prescriptions: New azithromycin 500 mg tablet 500 mg PO DAILY 5 Days Qty: 5 0RF Rx Instructions: start on day 2 of therapy prednisone 20 mg tablet 40 mg PO DAILY 5 Days Qty: 13 0RF No Action Jardiance 25 mg tablet 25 mg PO DAILY 90 Days Qty: 90 4RF budesonide [Pulmicort] 0.5 mg/2 mL suspension for nebulization 0.5 mg inhalation BID 90 Days Qty: 360 2RF (DME) Dexcom G6 Sensor Device See Rx Instructions .ROUTE .MEDSUPPLY Qty: 1 3RF Rx Instructions: As directed (DME) Dexcom G6 Tanner Rotary Drum Continuous Process Misc See Rx Instructions .ROUTE .MEDSUPPLY Qty: 1 0RF Rx Instructions: As directed (DME) Dexcom G6 Transmitter Device See Rx Instructions .ROUTE .MEDSUPPLY Qty: 1 0RF Rx Instructions: As directed hydrocodone-acetaminophen 10-325 mg tablet 1 tab PO Q4HP PRN (Reason: Moderate Pain (Scale Score 5-6)) 30 Days Qty: 120 0RF Rx Instructions: No > 4 per day gabapentin 800 mg tablet 800 mg PO BID 30 Days Qty: 60 0RF (DME) pen needle, diabetic [BD Ultra-Fine Micro Pen Needle] 32 gauge x 1/4 needle See Rx Instructions .ROUTE .COMPLEX Qty: 100 6RF Dose Instruction: USE DIRECTED DAILY with insulin pen injections Rx Instructions: USE DIRECTED DAILY with insulin pen injections buspirone 10 mg tablet 10 mg PO BID Qty: 60 2RF insulin glargine [Basaglar KwikPen U-100 Insulin] 100 unit/mL (3 mL) insulin pen 32 unit SQ BID atorvastatin 80 mg tablet See Rx Instructions .ROUTE .COMPLEX Qty: 90 0RF Dose Instruction: TAKE ONE TABLET BY MOUTH EVERY DAY Rx Instructions: TAKE ONE TABLET BY MOUTH EVERY DAY metformin 500 mg tablet See Rx Instructions .ROUTE .COMPLEX Qty: 120 2RF Dose Instruction: TAKE TWO TABLETS BY MOUTH TWICE DAILY Rx Instructions: TAKE TWO TABLETS BY MOUTH TWICE DAILY (DME) lancets [TRUEplus Lancets] 33 gauge misc See Rx Instructions .ROUTE .COMPLEX Qty: 100 2RF Dose Instruction: USE DIRECTED TO TEST BLOOD GLUCOSE LEVEL TWICE DAILY Rx Instructions: USE DIRECTED TO TEST BLOOD GLUCOSE LEVEL TWICE DAILY benzonatate 200 mg capsule 200 mg PO TIDP PRN (Reason: cough) Qty: 90 4RF ipratropium-albuterol 0.5 mg-3 mg(2.5 mg base)/3 mL solution for nebulization See Rx Instructions .ROUTE .COMPLEX Qty: 540 3RF Dose Instruction: INHALE THE CONTENTS OF 1 VIAL VIA NEBULIZER EVERY 8 HOURS DIRECTED Rx Instructions: INHALE THE CONTENTS OF 1 VIAL VIA NEBULIZER EVERY 8 HOURS DIRECTED albuterol sulfate 90 mcg/actuation HFA aerosol inhaler See Rx Instructions .ROUTE .COMPLEX Qty: 8.5 3RF Dose Instruction: INHALE TWO PUFFS BY MOUTH EVERY 6 HOURS NEEDED SHORTNESS OF BREATH Rx Instructions: INHALE TWO PUFFS BY MOUTH EVERY 6 HOURS NEEDED SHORTNESS OF BREATH (DME) Easy Touch Test Strip Strip See Rx Instructions .ROUTE .COMPLEX Qty: 100 5RF Dose Instruction: USE TO test blood glucose THREE TIMES DAILY DIRECTED Rx Instructions: USE TO test blood glucose THREE TIMES DAILY DIRECTED ropinirole 0.25 mg tablet See Rx Instructions .ROUTE .COMPLEX Qty: 60 1RF Dose Instruction: TAKE TWO TABLETS BY MOUTH AT BEDTIME Rx Instructions: TAKE TWO TABLETS BY MOUTH AT BEDTIME furosemide 40 mg tablet 40 mg PO DAILY diltiazem HCl 240 mg capsule,extended release 24hr 240 mg PO DAILY bisoprolol fumarate 10 mg tablet 10 mg PO BID magnesium oxide 400 mg (241.3 mg magnesium) tablet 400 mg PO BID pantoprazole 40 mg tablet,delayed release (DR/EC) 40 mg PO DAILY montelukast 10 mg tablet 10 mg PO PM albuterol sulfate 90 mcg/actuation HFA aerosol inhaler 2 puff inhalation Q6HP PRN (Reason: Shortness Of Breath) fluoxetine 20 mg capsule 20 mg PO BID fluticasone propionate 50 mcg/actuation spray,suspension 1 spray intranasal DAILY lisinopril 2.5 mg tablet 2.5 mg PO HS Xarelto 20 mg tablet 20 mg PO QPMWITHMEAL doxycycline hyclate 100 mg capsule 100 mg PO BID 7 Days Qty: 14 0RF Referrals Follow up/Referrals: Eric Jacinto DO [Primary Care Provider] - See instructions Activity Restrictions/Add. Instructions Additional Instructions/Restrictions: Return to the emergency department for any worsening shortness of breath, take your medications as prescribed. Follow-up with your family physician. Clinical Impressions Clinical Impression: COPD exacerbation COPD (chronic obstructive pulmonary disease) Qualifiers: COPD type: unspecified COPD Qualified Code(s): J44.9 - Chronic obstructive pulmonary disease, unspecified Instructions Patient Instructions: DI for Chronic Obstructive Pulmonary Disease Print Language Print Language: Divehi Discharge ED Provider: Jann Gonzalez HPI <ART Kaplan - Last Filed: 07/07/24 19:59> General Chief Complaint: Shortness of Breath/Dyspnea Stated Complaint: SOA,back pain,nausea Time Seen by Provider: 07/07/24 17:00 Mode of Arrival: Ambulatory Limitations: No Limitations Description of Symptoms (Recalled from ER Triage Doc. by RN): PT REPORTS NAUSEA AND VOMITING THAT STARTED YESTERDAY. PT REPORTS LUNG PAIN X 1 WEEK. PT REPORTS WEAKNESS, INCREASED SHORTNESS OF BREATH AND COUGH WITH THICK SPUTUM. History of Present Illness HPI narrative: 69-year-old female presents to the emergency department with a 2-day history of shortness of breath, nausea, chest tightness with no chest pain, patient denies any fever chills she endorses productive cough with thick sputum, denies any real abdominal pain, denies any episodes of vomiting today, but did have episode of vomiting after coughing fits, she endorses some subjective burning when I pee , denies any other acute symptomatology to include recent sick contacts, or any other recent illness. She is chronically on 4 L nasal cannula daily, for COPD, she has been taking her nebulized medication/other medication as prescribed, other past medical history is consistent with hyperlipidemia, atrial fibrillation on anticoagulant therapy with Xarelto, type 2 diabetes, diabetic polyneuropathy, hypertension, data deficient history of bronchiectasis, GERD, restless leg syndrome. Everyday smoker, she denies any alcohol or drug use, initial triage vitals are notable for SpO2 89%, on 4 L, will 4L Related Data Home Medications ?Medication ?Instructions ?Recorded ?Confirmed albuterol sulfate 90 mcg/actuation 2 puff inhalation Q6HP PRN 04/17/24 06/12/24 aerosol inhaler Shortness Of Breath bisoprolol fumarate 10 mg tablet 10 mg PO BID 04/17/24 06/12/24 diltiazem HCl 240 mg 240 mg PO DAILY 04/17/24 06/12/24 capsule,extended release 24 hr fluoxetine 20 mg capsule 20 mg PO BID 04/17/24 06/12/24 fluticasone propionate 50 1 spray intranasal DAILY 04/17/24 06/12/24 mcg/actuation nasal spray,suspension furosemide 40 mg tablet 40 mg PO DAILY 04/17/24 06/12/24 lisinopril 2.5 mg tablet 2.5 mg PO HS 04/17/24 06/12/24 magnesium oxide 400 mg (241.3 mg 400 mg PO BID 04/17/24 06/12/24 magnesium) tablet montelukast 10 mg tablet 10 mg PO PM 04/17/24 06/12/24 pantoprazole 40 mg tablet,delayed 40 mg PO DAILY 04/17/24 06/12/24 release rivaroxaban 20 mg tablet (Xarelto) 20 mg PO QPMWITHMEAL 04/17/24 06/12/24 insulin glargine 100 unit/mL (3 32 unit SQ BID 04/30/24 06/12/24 mL) subcutaneous pen (Basaglar KwikPen U-100 Insulin) Previous Rx's ?Medication ?Instructions ?Recorded pen needle, diabetic 32 gauge x #100 ea 01/28/2408/02 (BD Ultra-Fine Micro Pen Needle) blood-glucose meter,continuous #1 ea 01/30/24 (Dexcom G6 Tanner Rotary Drum Continuous Process) blood-glucose sensor (Dexcom G6 #1 ea 01/30/24 Sensor device) blood-glucose transmitter (Dexcom #1 ea 01/30/24 G6 Transmitter device) empagliflozin 25 mg tablet 25 mg PO DAILY 90 days #90 tabs 02/20/24 (Jardiance) buspirone 10 mg tablet 10 mg PO BID #60 tabs 03/05/24 doxycycline hyclate 100 mg capsule 100 mg PO BID 7 days #14 caps 04/24/24 budesonide 0.5 mg/2 mL suspension 0.5 mg (2 mL) inhalation BID 90 05/05/24 for nebulization (Pulmicort) days #360 mL atorvastatin 80 mg tablet See Rx Instructions .Route 05/07/24 .COMPLEX #90 tabs lancets 33 gauge (TRUEplus Lancets) #100 ea 05/07/24 metformin 500 mg tablet See Rx Instructions .Route 05/07/24 .COMPLEX #120 tabs benzonatate 200 mg capsule 200 mg PO TIDP PRN cough #90 caps 06/02/24 albuterol sulfate 90 mcg/actuation See Rx Instructions .Route 06/03/24 aerosol inhaler .COMPLEX #8.5 grams ipratropium 0.5 mg-albuterol 3 mg See Rx Instructions .Route 06/03/24 (2.5 mg base)/3 mL nebulization .COMPLEX #540 mL soln blood sugar diagnostic (Easy Touch #100 strips 06/04/24 Test Strip) ropinirole 0.25 mg tablet See Rx Instructions .Route 06/05/24 .COMPLEX #60 tabs gabapentin 800 mg tablet 800 mg PO BID 30 days #60 tabs 06/12/24 hydrocodone 10 mg-acetaminophen 1 tab PO Q4HP PRN Moderate Pain 06/12/24 325 mg tablet (Scale Score 5-6) 30 days #120 tabs azithromycin 500 mg tablet 500 mg PO DAILY 5 days #5 tabs 07/07/24 prednisone 20 mg tablet 40 mg (2 x 20 mg) PO DAILY 5 days 07/07/24 #13 tabs Allergies Allergy/AdvReac Type Severity Reaction Status Date / Time verapamil Allergy Severe Rash Verified 06/12/24 11:14 Iodine and Iodide Containing Allergy Mild Rash Verified 06/12/24 11:14 Produc Penicillins (PENICILLINS) Allergy Unknown I-RASH Verified 06/12/24 11:14 Sulfa (Sulfonamide Allergy Unknown NA-NAUSEA/V Verified 06/12/24 11:14 Antibiotics) (SULFA OMITING (SULFONAMIDE ANTIBIOTICS)) [facility] <ART Kaplan - Last Filed: 07/07/24 19:59> [facility] Disclaimer: The information contained in this section may have been updated after the patient was seen, as this information can be updated by other users. Medical History Pneumonia Pre-operative cardiovascular examination Pacemaker lead malfunction Pacemaker at end of battery life Vulvar cyst Candidal intertrigo Bronchiectasis, non-tuberculous COPD (chronic obstructive pulmonary disease) Acute exacerbation of chronic obstructive pulmonary disease Stopped smoking with greater than 30 pack year history History of asthma Family history of asthma Allergic rhinitis, unspecified History of 2019 novel coronavirus disease (COVID-19) COPD (chronic obstructive pulmonary disease) Acute respiratory failure with hypoxia COPD exacerbation Encounter for screening for malignant neoplasm of lung in current smoker with 30 pack year history or greater Stopped smoking with greater than 30 pack year history History of asthma Family history of asthma Allergic rhinitis History of 2019 novel coronavirus disease (COVID-19) COPD exacerbation Hyperlipemia PAF (paroxysmal atrial fibrillation) COPD (chronic obstructive pulmonary disease) On statin therapy Diabetes (~06/2020) Cardiac pacemaker in situ Fatigue HHD (hypertensive heart disease) Surgical History History of tonsillectomy History of cholecystectomy Hx of tonsillectomy History of arthroplasty of right knee Hx of cholecystectomy Family History Other Cancer Coronary artery disease Diabetes Hyperlipidemia Hypertension Social History Smoking Status: Current every day smoker tobacco type: cigarettes packs per day: 1 smoking status stop date: 09/12/2022 second hand exposure: Yes alcohol intake: never substance use type: denies use current occupational status: retired Travel in the last 8 weeks: None household members: none housing: house marital status: number of children: 0 current occupational exposures/hazards: No caffeine: Yes Other Medical History Have you received the Flu Vaccine for this season: No Have you received the Pneumonia Vaccine: Yes <ART Kaplan - Last Filed: 07/07/24 19:59> ROS Obtained: Yes All systems reviewed & no additional complaints except as documented Physical Exam <ART Kaplan - Last Filed: 07/07/24 19:59> General General appearance: alert and in no apparent distress Head Head exam: atraumatic and normocephalic Eye Eye exam: Present normal appearance, PERRL and EOMI Neck Neck exam: Present full ROM; Absent meningismus Chest Chest inspection: Present normal inspection Respiratory Respiratory exam: Present wheezes and other (There is mild conversational dyspnea and pursed lip breathing with mild to moderate wheezes noted throughout bilateral lung powers); Absent respiratory distress, stridor, accessory muscle use or prolonged expiratory phase Cardiovascular Cardiovascular exam: Present normal rhythm and other (Pulses equal and symmetric in bilateral upper and lower extremities) Abdominal Exam Abdominal exam: Absent distention Extremities Exam Extremities exam: Absent edema Neurological Exam Neurological exam: Present alert Psychiatric Psychiatric exam: Present normal affect Skin Skin exam: Present warm and dry HEART Score <ART Kaplan - Last Filed: 07/07/24 19:59> HEART Score HEART Score assessment performed?: No Critical Care <ART Kaplan - Last Filed: 07/07/24 19:59> Critical Care Time Critical Care Time: No Medical Decision Making <ART Kaplan - Last Filed: 07/07/24 19:59> Medical Records Medical records reviewed: Yes I reviewed the patient's medical records. Anibal Inquiry Pt receiving controlled substance: No Anibal was queried for this patient: No Vital Signs Vital Signs: 07/07/24 16:49 07/07/24 17:31 07/07/24 18:00 Temperature 97.9 F Temperature Source Oral Pulse Rate 70 73 Pulse Rate [Apical] 76 Respiratory Rate 22 16 18 Blood Pressure 113/52 L 117/71 Blood Pressure [Right Arm] 118/52 L Blood Pressure Mean 72 86 Blood Pressure Mean [Right Arm] 74 Blood Pressure Source [Right Arm] Automatic Cuff Blood Pressure Position [Right Arm] Sitting 02 Sat by Pulse Oximetry 88 L 96 95 Oxygen Delivery Method Room Air Oxygen Flow Rate (LPM) 07/07/24 18:30 07/07/24 19:00 07/07/24 19:30 Temperature Temperature Source Pulse Rate 68 69 73 Pulse Rate [Apical] Respiratory Rate 16 18 Blood Pressure 105/45 L 125/65 116/61 Blood Pressure [Right Arm] Blood Pressure Mean 73 85 Blood Pressure Mean [Right Arm] Blood Pressure Source [Right Arm] Blood Pressure Position [Right Arm] 02 Sat by Pulse Oximetry 92 L 93 L 93 L Oxygen Delivery Method Oxygen Flow Rate (LPM) 07/07/24 20:09 Temperature 97.8 F Temperature Source Oral Pulse Rate 71 Pulse Rate [Apical] Respiratory Rate 22 Blood Pressure 118/68 Blood Pressure [Right Arm] Blood Pressure Mean Blood Pressure Mean [Right Arm] Blood Pressure Source [Right Arm] Blood Pressure Position [Right Arm] 02 Sat by Pulse Oximetry Oxygen Delivery Method Nasal Cannula Oxygen Flow Rate (LPM) 4 Lab Data Labs: Lab Results 07/07/24 17:05: WBC 13.1 H, RBC 5.24, Hgb 14.6, Hct 45.6, MCV 87.1, MCH 27.9, MCHC 32.1, RDW 15.0, Plt Count 204, MPV 10.2, Neut % (Auto) 71.5, Lymph % (Auto) 18.1, [place] % (Auto) 5.6, Eos % (Auto) 3.8, Baso % (Auto) 0.9, Neut # (Auto) 9.4 H, Lymph # (Auto) 2.4, [place] # (Auto) 0.7, Eos # (Auto) 0.5 H, Baso # (Auto) 0.1, Sodium 140, Potassium 4.1, Chloride 106, Carbon Dioxide 26, Anion Gap 12.1, BUN 19 H, Creatinine 0.90, Estimated Creat Clear 79, Estimated GFR 62, Est GFR ( Amer) 75, Glucose 151 H, Lactate 2.3 H, Calcium 9.4, Magnesium 1.7, Total Bilirubin 0.4, AST 31, ALT 29, Alkaline Phosphatase 118, Troponin I < 0.01, NT-Pro-B Natriuret Pep 158 H, Total Protein 6.6, Albumin 4.0, Globulin 2.6, Albumin/Globulin Ratio 1.5 07/07/24 17:25: SARS-CoV-2 (PCR) Not detected, Influenza A Untype (PCR) Not detected, Influenza Type B (PCR) Not detected 07/07/24 18:08: VBG pH 7.34, VBG pCO2 51.7 H, VBG pO2 52.5 H, VBG HCO3 27.0, VBG Total CO2 28.6 H, VBG O2 Saturation 85.4 H, VBG Base Excess 1.2, VBG Lactic Acid 3.4 H 07/07/24 18:45: Urine Color Yellow, Urine Appearance Sl cloudy, Urine pH 6.0, Ur Specific Sulphur 1.020, Urine Protein Negative, Urine Glucose (UA) 3+, Urine Ketones Trace, Urine Blood Negative, Urine Nitrate Negative, Urine Bilirubin Negative, Urine Urobilinogen 0.2, Ur Leukocyte Esterase Negative, Urine RBC None, Urine WBC 10-20, Ur Squamous Epith Cells 20-50, Urine Bacteria 3+, Urine Yeast 1+ 07/07/24 17:05 07/07/24 17:05 Response Orders (Tests/Meds): ED MEDICATIONS Discontinued Medications Generic Name Dose Route Start Last Admin Trade Name Freq PRN Reason Stop Dose Admin Acetaminophen 1,000 mg 07/07/24 17:27 07/07/24 17:29 Acetaminophen 1,000mg/100ml Vial IV 07/07/24 17:28 1,000 mg ONCE ONE Administration Albuterol/Ipratropium 6 ml 07/07/24 17:15 07/07/24 17:21 Ipratropium/Albuterol 3 Ml Neb IH 07/07/24 17:16 6 ml ONCE ONE Administration Methylprednisolone Sodium Succinate 125 mg 07/07/24 17:15 07/07/24 17:21 Methylprednisolone Sod Succ 125mg Vial IV 07/07/24 17:16 125 mg ONCE ONE Administration Ondansetron HCl 4 mg 07/07/24 17:23 07/07/24 17:30 Ondansetron 4mg/2ml Vial IV 07/07/24 17:24 4 mg ONCE ONE Administration ORDERS Category Date Time Status CT chest wo con Stat Cat Scan 07/07/24 18:08 Completed XR chest portable Stat Exams 07/07/24 17:13 Completed Complete Blood Count Auto Diff Stat Lab 07/07/24 17:05 Completed Comprehensive Metabolic Panel Stat Lab 07/07/24 17:05 Completed Lactic Acid Stat Lab 07/07/24 17:05 Completed Magnesium Stat Lab 07/07/24 17:05 Completed NT Pro Brain Natriuretic Pep. Stat Lab 07/07/24 17:05 Completed Rapid PCR Covid and Flu A/B Stat Lab 07/07/24 17:25 Completed Troponin I Stat Lab 07/07/24 17:05 Completed Urinalysis and Microscopic Stat Lab 07/07/24 18:45 Completed Urine Culture Stat Micro 07/07/24 18:45 Received VBG [Venous Blood Gas] Stat RT 07/07/24 18:08 Completed MDM Narrative Medical Decision Narrative: 69-year-old female presents emerged part for shortness of breath, differential diagnose include but limited to, ACS, CHF exacerbation, acute COPD exacerbation, pneumonia, costochondritis, acute on chronic respiratory failure, acid-base disorder, cardiac arrhythmia, electrolyte disturbance. Discussed patient case with attending physician Dr. Gonzalez Will obtain cardiac workup to include troponin, proBNP, chest x-ray, laboratory studies magnesium level. Will give 4 mg IV Zofran for nausea, will give DuoNeb 6 mL per respiratory therapist and will give 125 mg of IV Solu-Medrol. CBC is notable for mild leukocytosis at 13.1 otherwise unremarkable CMP notable for lactic acidosis at 2.3. Reviewed the patient's chest x-ray along the corresponding radiologic report no dense parenchymal consolidation pleural effusion or pneumothorax. Patient is complaining of a headache will give 1000 g of Tylenol. Will obtain CT chest without contrast for further evaluation/characterization and obtain VBG. BUN is mildly elevated at 19, proBNP is mildly elevated at 158 troponin within normal limits. COVID-19 19 influenza A and B are not detected on rapid antigen swabs. I reviewed patient CT chest without contrast along the corresponding radiologic report no dense parenchymal consolidation pleural effusion or pneumothorax moderate emphysema. VBG is notable for Normal pH, lactic acid is elevated at 3.4. Otherwise unremarkable VBG Urinalysis unremarkable. Reexamination of the patient at 7:40 PM, patient is conversational dyspnea and shortness of breath is improved, patient is now on her baseline 4 L. She was on 8 L nasal cannula for low oxygen saturation on arrival, current ox saturation is 94 to 95% on 4 L which is her chronic oxygen requirement. I offered admission for COPD exacerbation to the patient patient denied at this time would like to pursue outpatient treatment I think this is reasonable, will call in short course of azithromycin p.o. antibiotic as well as short course of prednisone for the patient for COPD exacerbation. Strict ED return precautions given. Patient voiced understand agree with current treatment plan/discharge plan. <Jann Gonzalez MD - Last Filed: 07/07/24 21:08> Vital Signs Vital Signs: 07/07/24 16:49 07/07/24 17:31 07/07/24 18:00 Temperature 97.9 F Temperature Source Oral Pulse Rate 70 73 Pulse Rate [Apical] 76 Respiratory Rate 22 16 18 Blood Pressure 113/52 L 117/71 Blood Pressure [Right Arm] 118/52 L Blood Pressure Mean 72 86 Blood Pressure Mean [Right Arm] 74 Blood Pressure Source [Right Arm] Automatic Cuff Blood Pressure Position [Right Arm] Sitting 02 Sat by Pulse Oximetry 88 L 96 95 Oxygen Delivery Method Room Air Oxygen Flow Rate (LPM) 07/07/24 18:30 07/07/24 19:00 07/07/24 19:30 Temperature Temperature Source Pulse Rate 68 69 73 Pulse Rate [Apical] Respiratory Rate 16 18 Blood Pressure 105/45 L 125/65 116/61 Blood Pressure [Right Arm] Blood Pressure Mean 73 85 Blood Pressure Mean [Right Arm] Blood Pressure Source [Right Arm] Blood Pressure Position [Right Arm] 02 Sat by Pulse Oximetry 92 L 93 L 93 L Oxygen Delivery Method Oxygen Flow Rate (LPM) 07/07/24 20:09 Temperature 97.8 F Temperature Source Oral Pulse Rate 71 Pulse Rate [Apical] Respiratory Rate 22 Blood Pressure 118/68 Blood Pressure [Right Arm] Blood Pressure Mean Blood Pressure Mean [Right Arm] Blood Pressure Source [Right Arm] Blood Pressure Position [Right Arm] 02 Sat by Pulse Oximetry Oxygen Delivery Method Nasal Cannula Oxygen Flow Rate (LPM) 4 Lab Data Labs: Lab Results 07/07/24 17:05: WBC 13.1 H, RBC 5.24, Hgb 14.6, Hct 45.6, MCV 87.1, MCH 27.9, MCHC 32.1, RDW 15.0, Plt Count 204, MPV 10.2, Neut % (Auto) 71.5, Lymph % (Auto) 18.1, [place] % (Auto) 5.6, Eos % (Auto) 3.8, Baso % (Auto) 0.9, Neut # (Auto) 9.4 H, Lymph # (Auto) 2.4, [place] # (Auto) 0.7, Eos # (Auto) 0.5 H, Baso # (Auto) 0.1, Sodium 140, Potassium 4.1, Chloride 106, Carbon Dioxide 26, Anion Gap 12.1, BUN 19 H, Creatinine 0.90, Estimated Creat Clear 79, Estimated GFR 62, Est GFR ( Amer) 75, Glucose 151 H, Lactate 2.3 H, Calcium 9.4, Magnesium 1.7, Total Bilirubin 0.4, AST 31, ALT 29, Alkaline Phosphatase 118, Troponin I < 0.01, NT-Pro-B Natriuret Pep 158 H, Total Protein 6.6, Albumin 4.0, Globulin 2.6, Albumin/Globulin Ratio 1.5 07/07/24 17:25: SARS-CoV-2 (PCR) Not detected, Influenza A Untype (PCR) Not detected, Influenza Type B (PCR) Not detected 07/07/24 18:08: VBG pH 7.34, VBG pCO2 51.7 H, VBG pO2 52.5 H, VBG HCO3 27.0, VBG Total CO2 28.6 H, VBG O2 Saturation 85.4 H, VBG Base Excess 1.2, VBG Lactic Acid 3.4 H 07/07/24 18:45: Urine Color Yellow, Urine Appearance Sl cloudy, Urine pH 6.0, Ur Specific Sulphur 1.020, Urine Protein Negative, Urine Glucose (UA) 3+, Urine Ketones Trace, Urine Blood Negative, Urine Nitrate Negative, Urine Bilirubin Negative, Urine Urobilinogen 0.2, Ur Leukocyte Esterase Negative, Urine RBC None, Urine WBC 10-20, Ur Squamous Epith Cells 20-50, Urine Bacteria 3+, Urine Yeast 1+ Response Orders (Tests/Meds): ED MEDICATIONS Discontinued Medications Generic Name Dose Route Start Last Admin Trade Name Freq PRN Reason Stop Dose Admin Acetaminophen 1,000 mg 07/07/24 17:27 07/07/24 17:29 Acetaminophen 1,000mg/100ml Vial IV 07/07/24 17:28 1,000 mg ONCE ONE Administration Albuterol/Ipratropium 6 ml 07/07/24 17:15 07/07/24 17:21 Ipratropium/Albuterol 3 Ml Neb IH 07/07/24 17:16 6 ml ONCE ONE Administration Methylprednisolone Sodium Succinate 125 mg 07/07/24 17:15 07/07/24 17:21 Methylprednisolone Sod Succ 125mg Vial IV 07/07/24 17:16 125 mg ONCE ONE Administration Ondansetron HCl 4 mg 07/07/24 17:23 07/07/24 17:30 Ondansetron 4mg/2ml Vial IV 07/07/24 17:24 4 mg ONCE ONE Administration ORDERS Category Date Time Status CT chest wo con Stat Cat Scan 07/07/24 18:08 Completed XR chest portable Stat Exams 07/07/24 17:13 Completed Complete Blood Count Auto Diff Stat Lab 07/07/24 17:05 Completed Comprehensive Metabolic Panel Stat Lab 07/07/24 17:05 Completed Lactic Acid Stat Lab 07/07/24 17:05 Completed Magnesium Stat Lab 07/07/24 17:05 Completed NT Pro Brain Natriuretic Pep. Stat Lab 07/07/24 17:05 Completed Rapid PCR Covid and Flu A/B Stat Lab 07/07/24 17:25 Completed Troponin I Stat Lab 07/07/24 17:05 Completed Urinalysis and Microscopic Stat Lab 07/07/24 18:45 Completed Urine Culture Stat Micro 07/07/24 18:45 Received VBG [Venous Blood Gas] Stat RT 07/07/24 18:08 Completed ECG Data Tracing #1: Attestation: I reviewed this ECG and interpreted as documented below: (A paced rhythm 69 bpm. QRS 84, QTc 412. Normal axis. No acute ischemic changes.) [facility] Narrative Medical Decision Narrative: 69-year-old female presents emerged part for shortness of breath, differential diagnose include but limited to, ACS, CHF exacerbation, acute COPD exacerbation, pneumonia, costochondritis, acute on chronic respiratory failure, acid-base disorder, cardiac arrhythmia, electrolyte disturbance. Discussed patient case with attending physician Dr. Gonzalez Will obtain cardiac workup to include troponin, proBNP, chest x-ray, laboratory studies magnesium level. Will give 4 mg IV Zofran for nausea, will give DuoNeb 6 mL per respiratory therapist and will give 125 mg of IV Solu-Medrol. CBC is notable for mild leukocytosis at 13.1 otherwise unremarkable CMP notable for lactic acidosis at 2.3. Reviewed the patient's chest x-ray along the corresponding radiologic report no dense parenchymal consolidation pleural effusion or pneumothorax. Patient is complaining of a headache will give 1000 g of Tylenol. Will obtain CT chest without contrast for further evaluation/characterization and obtain VBG. BUN is mildly elevated at 19, proBNP is mildly elevated at 158 troponin within normal limits. COVID-19 19 influenza A and B are not detected on rapid antigen swabs. I reviewed patient CT chest without contrast along the corresponding radiologic report no dense parenchymal consolidation pleural effusion or pneumothorax moderate emphysema. VBG is notable for Normal pH, lactic acid is elevated at 3.4. Otherwise unremarkable VBG Urinalysis unremarkable. Reexamination of the patient at 7:40 PM, patient is conversational dyspnea and shortness of breath is improved, patient is now on her baseline 4 L. She was on 8 L nasal cannula for low oxygen saturation on arrival, current ox saturation is 94 to 95% on 4 L which is her chronic oxygen requirement. I offered admission for COPD exacerbation to the patient patient denied at this time would like to pursue outpatient treatment I think this is reasonable, will call in short course of azithromycin p.o. antibiotic as well as short course of prednisone for the patient for COPD exacerbation. Strict ED return precautions given. Patient voiced understand agree with current treatment plan/discharge plan. I was consulted by the JOY, and we discussed the complexity of the problems being addressed. I approved the treatment and management plan for this patient's care in the Emergency Department, thus performing a substantive portion of the medical decision making. Jann Gonzalez MD
[2024-07-07] MEDS: ACETAMINOPHEN 1,000MG/100ML VIAL 1000 MG IV (17:29)
[2024-07-07] MEDS: ONDANSETRON 4MG/2ML VIAL 4 MG IV (17:30)
[2024-07-07 17:34] LABS: Coronavirus 19, PCR Not Detected (NotDetected); Influenza A, PCR Not Detected (NotDetected); Influenza B, PCR Not Detected (NotDetected)
[2024-07-07 17:41] LABS: Basophils # 0.1 K/mm3 (0-0.2); Basophils % 0.9 % (0.1-2.0); Eosinophils # 0.5 K/mm3 (0.0-0.4); Eosinophils % 3.8 % (0.1-12.0); Hematocrit 45.6 % (37.0-47.0); Hemoglobin 14.6 g/dL (12.2-16.2); Lymphocytes # 2.4 K/mm3 (0.7-4.5); Lymphocytes % 18.1 % (10-50); Mean Corpuscular HGB Conc 32.1 g/dL (31.8-35.4); Mean Corpuscular Hemoglobin 27.9 pg (27.0-31.2); Mean Corpuscular Volume 87.1 fl (81-99); Mean Platelet Volume 10.2 fl (7.4-10.4); Monocytes # 0.7 K/mm3 (0.1-1.0); Monocytes % 5.6 % (1.7-9.3); Neutrophils # 9.4 K/mm3 (1.8-7.8); Neutrophils % 71.5 % (37.0-80.0); Platelet Count 204 K/mm3 (142-424); Red Blood Count 5.24 M/mm3 (4.20-5.40); White Blood Count 13.1 K/mm3 (4.8-10.8)
[2024-07-07 17:51] LABS: Chloride 106 mmol/L (98-107); Potassium 4.1 mmoL/L (3.5-5.1); Sodium 140 mmol/L (136-145)
[2024-07-07 17:54] LABS: Alanine Aminotransferase 29 U/L (12-78); Albumin/Globulin Ratio 1.5 (1.1-1.8); Alkaline Phosphatase 118 U/L (38-126); Anion Gap 12.1 mEq/L (5-15); Aspartate Amino Transferase 31 U/L (14-36); Bilirubin,Total 0.4 mg/dl (0.2-1.3); Blood Urea Nitrogen 19 mg/dl (7-17); Calcium 9.4 mg/dl (8.4-10.2); Carbon Dioxide 26 mmol/L (22.0-30.0); Creatinine Clearance Estimated 79 mL/min (50-200); Estimated Glomerular Filt Rate 62 ml/min (>60); GFR (African American) 75 ML/MIN (>60); Globulin 2.6 g/dL (1.3-3.2); Glucose 151 mg/dl (74-100); Total Protein,Serum 6.6 g/dl (6.3-8.2)
[2024-07-07 17:55] LABS: Magnesium 1.7 mg/dl (1.6-2.3)
[2024-07-07 17:57] LABS: Lactic Acid 2.3 mmol/L (0.7-2.1)
[2024-07-07 18:05] LABS: NT Pro Brain Natriuretic Pep. 158 pg/mL (0-125)
[2024-07-07 18:08] LABS: Troponin I < 0.01 ng/ml (0.00-0.034)
--- NOTE | 2024-07-07 18:08 | CT_ITS ---
PROCEDURE INFORMATION: Exam: CT Chest Without Contrast; Diagnostic Exam date and time: 07/07/2024 6:14 PM Age: 69 years old Clinical indication: Shortness of breath and wheezing; Additional info: Shortness of breath, wheezing TECHNIQUE: Imaging protocol: Diagnostic computed tomography of the chest without contrast. Radiation optimization: All CT scans at this facility use at least one of these dose optimization techniques: automated exposure control; mA and/or kV adjustment per patient size (includes targeted exams where dose is matched to clinical indication); or iterative reconstruction. COMPARISON: 1. CT CHEST WO CON 04/20/2024 1:[address] LUNG SCREENING 07/27/2023 2:[address] ANGIO CHEST PE PROTOCOL 07/26/2022 12:45 PM FINDINGS: Tubes, catheters and devices: There is a left chest implanted cardiac device. Lungs: Scattered areas of bronchial wall thickening which are likely chronic inflammatory. A few areas of subpleural reticulation are noted, nonspecific. There are moderate scattered areas of emphysema throughout the lungs. Pleural spaces: Pleural surfaces are smooth, and there are no pleural effusions, pneumothoraces, or pleural plaques noted. Heart: The heart size is within normal limits, and the pericardium appears clear with no signs of pericardial effusion or thickening. Coronary arteries: There is mild coronary atherosclerotic disease/calcification although evaluation is limited secondary to the non gated nature of the study. Mediastinal space: The mediastinum appears unremarkable with no evidence of masses, lymphadenopathy, or mediastinal widening. Hilar structures including the major bronchi and vessels appear intact. Lymph nodes: Unremarkable. No enlarged lymph nodes. Vasculature: There is atherosclerotic disease of the visualized aorta and its major branch vessels. Pancreas: There is fatty replacement of the pancreas. Adrenal glands: Stable 1.5 cm right adrenal adenoma. Bones/joints: There is diffuse degenerative disease of the visualized osseous structures. There is exaggeration of the spinal curvature. Soft tissues: Unremarkable. IMPRESSION: 1. No dense parenchymal consolidation, pleural effusion, or pneumothorax. 2. Moderate emphysema. COMMENTS: The presence of pulmonary emphysema on CT is an independent risk factor for lung cancer. In the absence of a history or active diagnosis of lung cancer, it is recommended that this patient with emphysema be evaluated for enrollment in a low dose CT lung cancer screening program.
[2024-07-07 18:48] LABS: VBG Base Excess 1.2 mmol/L (-2.4-2.3); VBG Oxygen Saturation 85.4 % (50-70); VBG PH 7.34 mmol/L (7.31-7.41); VBG PO2 52.5 mmol/L (28-40); VBG Total CO2 28.6 mmol/L (23-27)
[2024-07-07 18:50] LABS: Microscopic, Urine URINE MICROSCOPIC (MICROSCOPIC)
[2024-07-07 18:52] LABS: Lactate Venous 3.4 mmol/L (0.4-2.0); VBG PCO2 51.7 mmol/L (35-51)
[2024-07-07 19:36] LABS: Appearance,Urine SL CLOUDY (Clear); Bilirubin,Urine Negative (Negative); Blood, Urine Negative (Negative); Color,Urine YELLOW (Yellow); Glucose,Urine (UA) 3+ (Negative); Ketones,Urine TRACE (Negative); Leukocyte Esterase,Urine Negative (Negative); Nitrate,Urine Negative (Negative); Protein,Urine Negative (Negative); Urobilinogen,Urine 0.2 EU/dl (0.2)
[2024-07-07 19:42] LABS: Bacteria,Urine 3+ /lpf; Squamous Epithelial Cell,Urine 20-50 #/hpf (0-5); Yeast,Urine 1+ /lpf
[2024-07-07 21:32] LABS: Reflex Lactic Add Lactic Reflex
== END 2024-07-07 20:10 | disposition home or self-care (01) ==
PROVIDERS: Physician Assistant; Emergency Provider Emergency Medicine; PCP Internal Medicine
DX: J44.1 Chronic obstructive pulmonary disease with (acute) exacerbation (principal); R06.02 Shortness of breath; R06.00 Dyspnea, unspecified; R11.2 Nausea with vomiting, unspecified; R53.1 Weakness; R05.8 Other specified cough; R07.89 Other chest pain
CPT/HCPCS: 71045; 71250; 80053; 81001; 82803; 83605; 83735; 83880; 84484; 85025; 87086; 87636; 93005; 96374; 96375; 99284; J0131; J2405; J2919; J7620

== ENCOUNTER 2024-07-16 09:54 | Outpatient (CLI) | payer MEDICARE, MEDICAID, SELFPAY ==
[2024-07-16 10:25] VITALS: PULSE 72; PULSE 76
[2024-07-16] MEDS: ALBUTEROL 0.083% 2.5 MG/3 ML NEB IH (10:25)
--- NOTE | 2024-07-16 10:55 | RESP.PFTSS ---
Patient's oxygen saturation is 87% on room air, at rest.
== END 2024-07-16 23:59 | disposition home or self-care (01) ==
PROVIDERS: PCP Internal Medicine; Visit Provider Internal Medicine Pulmonary Disease
DX: J44.9 Chronic obstructive pulmonary disease, unspecified (principal); R06.09 Other forms of dyspnea
CPT/HCPCS: 94060; 94640; J7613

== ENCOUNTER 2024-08-07 14:00 | Outpatient (CLI) | payer MEDICARE, MEDICAID, SELFPAY ==
[2024-08-07 18:59] LABS: Chol/HDL Ratio 4.9 (1-3.5); Cholesterol 148 mg/dl (140-200); HDL Cholesterol 30 mg/dl (40-60); Triglycerides 255 mg/dl (30-150); VLDL Cholesterol 51 mg/dL (0-40)
[2024-08-07 20:07] LABS: Direct LDL Cholesterol 92.75 mg/dL (100-129)
== END 2024-08-07 23:59 | disposition home or self-care (01) ==
LOC: LAB.DROPOF 08-08 10:43
PROVIDERS: PCP Internal Medicine; Visit Provider Internal Medicine
DX: E78.5 Hyperlipidemia, unspecified (principal)
CPT/HCPCS: 80061

== ENCOUNTER 2024-08-27 11:31 | Outpatient (CLI) | payer MEDICARE, MEDICAID, SELFPAY ==
[2024-08-27] MEDS: IPRATROPIUM/ALBUTEROL 3 ML NEB IH (12:10)
== END 2024-08-27 23:59 | disposition home or self-care (01) ==
LOC: RT 11:32
PROVIDERS: PCP Internal Medicine; Visit Provider Internal Medicine Pulmonary Disease
DX: R06.09 Other forms of dyspnea (principal)
CPT/HCPCS: 94618; J7620

== ENCOUNTER 2024-09-17 14:10 | Outpatient (POV) | payer MEDICARE, MEDICAID, SELFPAY ==
--- NOTE | 2024-09-17 14:25 | EXP.PAIN.OV ---
HPI Data of Consult Patient: new to practice Consult date: 09/17/24 Requesting Physician: Sujata Jimenes APRN Primary Care Provider: Yanick Mandel APRN Consult Narrative Reason for consult: Low back pain, bilateral leg pain History of present illness: Ms. Stallings is a 69 year old female who presents today as a new patient. She is a referral from Dr. Shah's office. She does rate her pain a 10 out of 10 today. Patient does state that she was a patient of ours years ago and had even gotten injections and they did really help. Patient states that her pain has been going on for multiple years unrelated to any specific trauma or injury. Patient does state that she just had a bad fall in July where she landed on her back and this did seem to really aggravate her symptoms overall. She does describe it as an aching, throbbing sensation with numbness and tingling that goes down into her bilateral legs all the way to her feet. Patient does also make mention that she has neuropathy on top of it. Patient states that she has tried oral medications, heat and ice and topicals with minimal relief. Patient states that physical therapy they were not recommending due to the extent of her back. Patient states she cannot clean her house or even walk due to the worsening pain. She states it is interfering with her ability perform activities of daily living. Patient does states she is very interested in additional injections as those did provide significant improvement. Patient denies any prior back surgery.Patient has been prescribed gabapentin and [place] from Dr. Shah's office. Patient does state that she does take a muscle relaxer but is asking whether or not if there is anything we can send in pain medication jarrell to help her sleep until she can get the injection. Patient does have significant heart history with a pacemaker and is on blood thinners written by Dr. Bonner's office. Her Anibal has been reviewed. CC: Sujata Jimenes APRN [facility] Disclaimer: The information contained in this section may have been updated after the patient was seen, as this information can be updated by other users. Medical History Pneumonia Pre-operative cardiovascular examination Pacemaker lead malfunction Pacemaker at end of battery life Vulvar cyst Candidal intertrigo Bronchiectasis, non-tuberculous COPD (chronic obstructive pulmonary disease) Acute exacerbation of chronic obstructive pulmonary disease Stopped smoking with greater than 30 pack year history History of asthma Family history of asthma Allergic rhinitis, unspecified History of 2019 novel coronavirus disease (COVID-19) COPD (chronic obstructive pulmonary disease) Acute respiratory failure with hypoxia COPD exacerbation Encounter for screening for malignant neoplasm of lung in current smoker with 30 pack year history or greater Stopped smoking with greater than 30 pack year history History of asthma Family history of asthma Allergic rhinitis History of 2019 novel coronavirus disease (COVID-19) COPD exacerbation Hyperlipemia PAF (paroxysmal atrial fibrillation) COPD (chronic obstructive pulmonary disease) On statin therapy Diabetes (~06/2020) Cardiac pacemaker in situ Fatigue HHD (hypertensive heart disease) Surgical History History of tonsillectomy History of cholecystectomy Hx of tonsillectomy History of arthroplasty of right knee Hx of cholecystectomy Family History Other Cancer Coronary artery disease Diabetes Hyperlipidemia Hypertension Social History (Updated 08/28/24 @ 13:25 by ARIS Youssef) Smoking Status: Former smoker tobacco type: cigarettes packs per day: 1 smoking status stop date: 09/12/2022 second hand exposure: Yes alcohol intake: never substance use type: denies use current occupational status: retired Travel in the last 8 weeks: None household members: none housing: house marital status: number of children: 0 current occupational exposures/hazards: No caffeine: Yes Have you lived/traveled outside [place] in past 30 days?: No Contact w/someone who lives/traveled outside US past 30 days?: No Exposure to someone with infectious disease in past 14 days?: No Do you have a fever (greater than 100.4 F or 38 C)?: No Have you tested positive for COVID-19: No Exposed to someone with COVID-19 in past 14 days?: No Do you have a sore throat?: No Do you have a cough?: No Do you have any weakness?: No Do you have any diarrhea?: No Are you experiencing any unusual bleeding?: No Do you have any muscle aches/pain?: No Do you have any abdominal pain?: No Are you experiencing loss of taste or smell?: No Review of Systems Review of Systems Review of systems:: pertinent systems reviewed and negative unless documented below Review of systems (narrative): Review of Systems: General: No recent weight changes, no fever, no sleep disturbances Respiratory: No cough, no shortness of air, no recurring pulmonary infections Cardiovascular/peripheral vascular: No chest pain, no palpitations, no edema, no shortness of breath Gastrointestinal: No new onset incontinence, normal bowel movements reported Genitourinary: No new onset incontinence Musculoskeletal: Low back pain, bilateral leg pain Psychiatric: [Normal mood/affect] Neurological: [Denies weakness in extremities], [denies balance issues] Meds Home Medications and Allergies Home Medications ?Medication ?Instructions ?Recorded ?Confirmed ?Type pen needle, diabetic 32 gauge x #100 ea 01/28/24 08/28/24 Rx 1/4 (BD Ultra-Fine Micro Pen Needle) blood-glucose meter,continuous #1 ea 01/30/24 08/28/24 Rx (Dexcom G6 Administrative Accountant) blood-glucose sensor (Dexcom G6 #1 ea 01/30/24 08/28/24 Rx Sensor device) blood-glucose transmitter (Dexcom #1 ea 01/30/24 08/28/24 Rx G6 Transmitter device) empagliflozin 25 mg tablet 25 mg PO DAILY 90 days #90 tabs 02/20/24 09/09/24 Rx (Jardiance) fluticasone propionate 50 1 spray intranasal DAILY 04/17/24 09/09/24 History mcg/actuation nasal spray,suspension lisinopril 2.5 mg tablet 2.5 mg PO HS 04/17/24 09/09/24 History magnesium oxide 400 mg (241.3 mg 400 mg PO BID 04/17/24 09/09/24 History magnesium) tablet montelukast 10 mg tablet 10 mg PO PM 04/17/24 09/09/24 History pantoprazole 40 mg tablet,delayed 40 mg PO DAILY 04/17/24 09/09/24 History release rivaroxaban 20 mg tablet (Xarelto) 20 mg PO QPMWITHMEAL 04/17/24 09/09/24 History budesonide 0.5 mg/2 mL suspension 0.5 mg (2 mL) inhalation BID 90 05/05/24 09/09/24 Rx for nebulization (Pulmicort) days #360 mL lancets 33 gauge (TRUEplus Lancets) #100 ea 05/07/24 08/28/24 Rx blood sugar diagnostic (Easy Touch #100 strips 06/04/24 08/28/24 Rx Test Strip) insulin glargine 100 unit/mL (3 32 unit (0.32 mL) SQ BID Diabetes 07/09/24 09/09/24 Rx mL) subcutaneous pen (Basaglar #15 mL KwikPen U-100 Insulin) bisoprolol fumarate 10 mg tablet See Rx Instructions .Route 08/06/24 09/09/24 Rx .COMPLEX #60 tabs diltiazem HCl 240 mg See Rx Instructions .Route 08/06/24 09/09/24 Rx capsule,extended release 24 hr .COMPLEX #90 caps atorvastatin 80 mg tablet See Rx Instructions .Route 08/07/24 09/09/24 Rx .COMPLEX #90 tabs buspirone 10 mg tablet 10 mg PO BID 90 days #180 tabs 08/07/24 09/09/24 Rx fluoxetine 20 mg capsule 20 mg PO BID 90 days #180 caps 08/07/24 09/09/24 Rx furosemide 40 mg tablet See Rx Instructions .Route 08/07/24 09/09/24 Rx .COMPLEX #90 tabs metformin 500 mg tablet See Rx Instructions .Route 08/07/24 09/09/24 Rx .COMPLEX #120 tabs prednisone 10 mg tablet 10 mg PO DIRECTED #30 tabs 08/07/24 09/09/24 Rx albuterol sulfate 90 mcg/actuation See Rx Instructions .Route 08/27/24 09/09/24 Rx aerosol inhaler .COMPLEX #8.5 grams azithromycin 250 mg tablet 250 mg PO QMWF #45 tabs 08/28/24 09/09/24 Rx ipratropium 0.5 mg-albuterol 3 mg 3 ml inhalation QID PRN shortness 08/28/24 09/09/24 Rx (2.5 mg base)/3 mL nebulization of breath or wheezing 90 days #270 soln mL ropinirole 0.25 mg tablet See Rx Instructions .Route 09/01/24 09/09/24 Rx .COMPLEX #60 tabs vzbzysenfabyvuu-wuspzhikpxmmony-HV 10 ml PO Q6H PRN cold symptoms 09/09/24 09/09/24 Rx 2 mg-30 mg-10 mg/5 mL oral syrup #200 mL cyclobenzaprine 10 mg tablet 10 mg PO TID PRN muscle spasm #60 09/09/24 09/09/24 Rx tabs New Prescriptions to Start Prescriptions: Allergies Allergy/AdvReac Type Severity Reaction Status Date / Time verapamil Allergy Severe Rash Verified 09/09/24 14:46 Iodine and Iodide Containing Allergy Mild Rash Verified 09/09/24 14:46 Produc Penicillins (PENICILLINS) Allergy Unknown I-RASH Verified 09/09/24 14:46 Sulfa (Sulfonamide Allergy Unknown NA-NAUSEA/V Verified 09/09/24 14:46 Antibiotics) (SULFA OMITING (SULFONAMIDE ANTIBIOTICS)) Objective Narrative: Physical Exam: General: Alert and oriented x3, no acute distress, pleasant and cooperative Lungs: Respirations even and unlabored, symmetrical chest expansion Eyes: PERRL Musculoskeletal: Flexion and extension of lumbar [spine] somewhat guarded secondary to pain, [antalgic gait noted] positive leg raise Neurological: Speech clear, no gross sensory deficit Additional findings Additional findings: FINDINGS: Normal alignment. No obvious fracture or dislocation is evident. There is mild lumbar curvature convex left. L1-L2: 2 mm retrolisthesis of L1. L2-L3: Unremarkable. L3-L4: Minimal bulging disc with facet ligamentum. : Mild concentric bulging disc along with moderate facet ligamentum hypertrophy. L5-S1: Mild concentric bulging disc with moderate facet and ligamentum hypertrophy. Prominent facet arthritic changes are present. Incidental note made of nonobstructing 3 mm stone in the lower pole of the right kidney IMPRESSION: 1. No acute fracture. 2. Lumbar spondylosis as detailed above. Please see above for detailed description at each level. 3. Nonobstructing right nephrolithiasis Dictated by: Roman Cardenas MD 06/23/2019 12:41 Electronically signed by Roman Cardenas MD in [place] 06/23/2019 12:41 Assessment and Plan *Assessment and plan (1) Degenerative disc disease: Status: Acute Category: Medical (2) Lumbar radiculopathy: Status: Acute Category: Medical Code(s): M54.16 - Radiculopathy, lumbar region Plan Patient is experiencing worsening pain in her low back with numbness and tingling into her lower extremities. Patient did have limited range of motion of her lumbar spine with a positive leg raise. I did discuss with patient that I do believe they would benefit from a lumbar epidural steroid injection. Risk and benefits were discussed with patient and the patient would like to proceed forward with this plan of care. Patient is on Xarelto written by Dr. Bonner's office. I did discuss with the patient that we will reach out to this provider to confirm she can stop this medication prior to this injection. Patient has tried and failed conservative therapy including continued at home stretching exercise for longer than 12 weeks. Patient did previously have a lumbar epidural back in June 2020 that provided upwards of 80 to 90% relief and lasted longer than 2-3 months. Patient has had longstanding chronic back issues for multiple years we will schedule the patient for an LESI L4-L5 under fluoroscopy. Patient has been instructed to contact the clinic with any concerns before the next appointment. Dr. Hawkins has reviewed this note and agrees with this plan of care. This note was dictated using voice recognition software and make contain errors or omissions. All injections are used with Lidocaine, Bupivacaine and Depo Medrol. Occasionally urine drug screen is needed to verify patient's compliance with our office pain contract. This is ordered based off specific treatments related to chronic pain with the potential to abuse certain medications.
[2024-09-17 15:34] VITALS: BP 109/64; PULSE 70; RESP 18; O2SAT 91; BMI 29.8
== END 2024-09-17 23:59 | disposition home or self-care (01) ==
LOC: SC.PAIN 14:11
PROVIDERS: PCP Nurse Practitioner Family; Visit Provider Nurse Practitioner Family
DX: M51.16 Intervertebral disc disorders with radiculopathy, lumbar region (principal); Z73.89 Other problems related to life management difficulty; Z87.891 Personal history of nicotine dependence; Z79.899 Other long term (current) drug therapy
CPT/HCPCS: 99202; G0463

== ENCOUNTER 2024-10-15 14:11 | Outpatient (CLI) | payer MEDICARE, MEDICAID, SELFPAY ==
--- NOTE | 2024-10-15 14:16 | XR_ITS ---
FINAL REPORT CLINICAL HISTORY: SOB COMPARISON: 07/07/2024 FINDINGS: 2 views of the chest were obtained . The heart is normal in size. There is a left-sided pacemaker in place. The mediastinum is within normal limits. The lungs are clear. There is no pneumothorax. Osseous structures are unremarkable. IMPRESSION: No acute cardiopulmonary process. Reviewed, Interpreted and Dictated by Faviola Alvarez MD Transcribed by Lea Zaidi Authenticated and [facility]
== END 2024-10-15 23:59 | disposition home or self-care (01) ==
LOC: RAD 14:12
PROVIDERS: PCP Nurse Practitioner Family; Visit Provider Internal Medicine Pulmonary Disease
DX: R06.02 Shortness of breath (principal)
CPT/HCPCS: 71046

== ENCOUNTER 2024-10-27 10:55 | Outpatient (CLI) | payer MEDICARE, MEDICAID, SELFPAY ==
[2024-10-27 20:48] LABS: Albumin Level 4.3 g/dl (3.5-5.0); Chloride 104 mmol/L (98-107)
[2024-10-27 20:49] LABS: Potassium 4.8 mmoL/L (3.5-5.1); Sodium 138 mmol/L (136-145)
[2024-10-27 20:52] LABS: Alanine Aminotransferase 29 U/L (12-78); Albumin/Globulin Ratio 1.9 (1.1-1.8); Alkaline Phosphatase 132 U/L (38-126); Anion Gap 11.8 mEq/L (5-15); Aspartate Amino Transferase 25 U/L (14-36); Bilirubin,Total 0.6 mg/dl (0.2-1.3); Blood Urea Nitrogen 16 mg/dl (7-17); Calcium 9.5 mg/dl (8.4-10.2); Carbon Dioxide 27 mmol/L (22.0-30.0); Chol/HDL Ratio 4.1 (1-3.5); Cholesterol 139 mg/dl (140-200); Estimated Glomerular Filt Rate 55 ml/min (>60); GFR (African American) 66 ML/MIN (>60); Globulin 2.3 g/dL (1.3-3.2); Glucose 183 mg/dl (74-100); HDL Cholesterol 34 mg/dl (40-60); Total Protein,Serum 6.6 g/dl (6.3-8.2); Triglycerides 155 mg/dl (30-150); VLDL Cholesterol 31 mg/dL (0-40)
== END 2024-10-27 23:59 | disposition home or self-care (01) ==
LOC: LAB.DROPOF 10-28 13:28
PROVIDERS: PCP Family Medicine; Visit Provider Family Medicine
DX: E78.5 Hyperlipidemia, unspecified (principal); E11.69 Type 2 diabetes mellitus with other specified complication; Z79.4 Long term (current) use of insulin
CPT/HCPCS: 80053; 80061; 83036

== ENCOUNTER 2024-11-07 10:54 | Outpatient (CLI) | payer MEDICARE, MEDICAID, SELFPAY ==
[2024-11-07 17:44] LABS: Coronavirus 19, PCR Not Detected (NotDetected); Human Rhinovirus Not Detected (NotDetected); Influenza A, PCR Not Detected (NotDetected); Influenza B, PCR Not Detected (NotDetected); Respiratory Syncytial Virus Not Detected (NotDetected)
== END 2024-11-07 23:59 | disposition home or self-care (01) ==
LOC: LAB.DROPOF 11-10 10:55
PROVIDERS: PCP Family Medicine; Visit Provider Family Medicine
DX: J44.1 Chronic obstructive pulmonary disease with (acute) exacerbation (principal); J06.9 Acute upper respiratory infection, unspecified; B34.9 Viral infection, unspecified
CPT/HCPCS: 87631

== ENCOUNTER 2024-11-10 12:34 | Outpatient (CLI) | payer MEDICARE, MEDICAID, SELFPAY ==
--- NOTE | 2024-11-10 | CA_ITS ---
APPROVED REPORT EXAM: Comprehensive 2D, Doppler, and color-flow Echocardiogram Final Installer Inspector: Irais Mandel CRT Ht: 5 ft 11 in Wt: 228lbs BSA: 2.23 BP: 151/67 mmHg Indications: COPD, Shortness of Breath, Atrial Fibrillation, Fatigue, Hyperlipidemia, pacemaker, hx covid Pt on 4 lpm O2 2D Dimensions LA Volume 34.50 mL LA Volume Index 15.10 mL/m2 (M/F) 16-34 M-Mode Dimensions RVDd 2.01 cm (0.9-2.6) LA Diam 4.19 cm (1.9-4.0) LVDd 5.42 cm (3.5-5.7) LVDs 3.34 cm (3.5-5.7) IVSd 1.25 cm (0.6-1.1) PWd 0.91 cm (0.6-1.1) EF (Teich) 68.10% FS 38.40% EDV (Teich) 142.50 mL TAPSE 2.29 (<1.7) ESV (Teich) 45.40 mL LV Diastology E Decel Time 223 (160-240 msec) E/A Ratio 0.68 MED A' 12.90 cm/s LAT A' 12.00 cm/s Aortic Valve AO Peak GR. 7.50 mmHg Mitral Valve MV E Max Wil. 66.0 (40-130 cm/s) MV A Velocity 97.0 (40-130 cm/s) E/A Ratio 0.68 MV PHT 65.0 ms Pulmonary Valve PV Peak Velocity 145.0 (50-150 cm/s) Tricuspid Valve TR P. Velocity 201.00 cm/s RAP Estimate 10.00 mmHg RVSP 26.10 mmHg Left Ventricle The left ventricle is normal size. The left ventricular systolic function is normal. The left ventricular ejection fraction is within the normal range. There is increased LV wall thickness. There is normal LV segmental wall motion. Diastolic function is indeterminate. LVEF is 60%. Right Ventricle Right ventricle is mildly dilated. The right ventricular systolic function is normal. Atria Left atrium is mildly dilated. Right atrium is mildly dilated. There is no Doppler evidence of interatrial shunt. Aortic Valve The aortic valve is mildly thickened. Trace aortic regurgitation. There is no aortic valvular stenosis. Mitral Valve The mitral valve is normal in structure. No evidence of mitral valve stenosis. Trace mitral regurgitation. Tricuspid Valve Tricuspid valve is grossly normal in structure and function. Trace tricuspid regurgitation. There is insufficient TR jet to estimate RVSP. Pulmonic Valve The pulmonary valve is normal in structure. Trace pulmonic regurgitation. Great Vessels The aortic root is normal in size. IVC is normal in size and collapses >50% with inspiration. Pericardium There is no pericardial effusion. Other Information Study Quality: Technically Difficult Conclusion Technically difficult study due to poor acoustic windows. Normal biventricular systolic function. Mild RV dilation. Mild biatrial dilation. No significant valvular stenosis or regurgitation. Electronically signed by : Roxie Rivera MD 11/11/2024 13:07:55
== END 2024-11-10 23:59 | disposition home or self-care (01) ==
LOC: RT 12:35
PROVIDERS: PCP Family Medicine; Visit Provider Nurse Practitioner
DX: I51.7 Cardiomegaly (principal); Z95.0 Presence of cardiac pacemaker; I50.9 Heart failure, unspecified; J44.9 Chronic obstructive pulmonary disease, unspecified
CPT/HCPCS: 93306

== ENCOUNTER 2024-11-11 10:28 | Day surgery (SDC) | payer MEDICARE, MEDICAID, SELFPAY ==
[2024-11-11 10:47] VITALS: BP 137/74; PULSE 69; RESP 16; TEMP 36.9; O2SAT 90; BMI 32.5
[2024-11-11 10:58] LABS: POC Glucose,Bedside 126 (70-110)
--- NOTE | 2024-11-11 11:02 | EXP.PAIN.PRO ---
Procedure Date: 11/11/24 Time: 10:50 Anesthesiologist:: Forrest Gilliam CRNA Complications:: None Pre-procedure Diagnosis:: Degenerative disc lumbar spine multilevels. Lumbar radiculopathy. Lumbar spondylosis. Multilevel lumbar facet arthropathy. Post-procedure Diagnosis:: Same. Indications for Procedure:: Patient is a very pleasant 69-year-old female who comes our clinic today for a lumbar epidural steroid injection. Patient describes lumbar back pain as well as bilateral hip and leg radicular symptoms. She reports responding well to previous lumbar epidural steroid injections. She rates her pain 7/10. Procedure Details:: Procedure: Lumbar epidural steroid injection under fluoroscopy Informed consent was obtained and the risks and benefits of the procedure were explained to the patient. The patient was taken to the procedure room and noninvasive monitors placed, including noninvasive blood pressure cuff and pulse oximeter. The back was viewed using C-arm Fluoroscopy and prepped using Chloraprep as a cleansing solution and the L4-L5 interspace was palpated. Skin and subcutaneous tissues were anesthetized using lidocaine 1.5% and a 25-gauge needle. After this, an 18-gauge Touhy epidural needle was placed into the L4-L5 interspace and advanced using fluoroscopic guidance and loss of resistance to air until the epidural space was encountered. After confirmation of needle placement in the epidural space, with dye, a solution containing normal saline, 3 mL and Depo-Medrol 80 mg were incrementally injected into the lumbar epidural space. The patient tolerated the procedure well with no complications. The patient was observed in the Pain Clinic and then discharged home neurologically intact. Plan and Disposition:: Patient was discharged without incident.
[2024-11-11 11:03] VITALS: BP 130/69; PULSE 71; RESP 16; O2SAT 94
[2024-11-11 11:42] VITALS: BP 132/82; PULSE 84; RESP 18; O2SAT 92
[2024-11-11] MEDS: methylPREDNISolone ACETATE 80MG/ML VIAL 80 MG (11:42)
[2024-11-11 11:44] VITALS: BP 132/82; PULSE 84; RESP 18; O2SAT 92
== END 2024-11-11 11:03 | disposition home or self-care (01) ==
PROVIDERS: PCP Nurse Practitioner Family; Visit Provider Nurse Anesthetist, Certified Registered
DX: M51.16 Intervertebral disc disorders with radiculopathy, lumbar region (principal); M47.26 Other spondylosis with radiculopathy, lumbar region
CPT/HCPCS: 62323; 82962; J1010

== ENCOUNTER 2024-11-26 13:32 | Outpatient (POV) | payer MEDICARE, MEDICAID, SELFPAY ==
[2024-11-26 14:03] VITALS: BP 108/55; PULSE 70; RESP 14; O2SAT 93; BMI 31.6
--- NOTE | 2024-11-26 14:43 | A.OFFVIS_ITS ---
[facility] Disclaimer: The information contained in this section may have been updated after the patient was seen, as this information can be updated by other users. Medical History Chronic, continuous use of opioids Overuse of medication Pneumonia Pre-operative cardiovascular examination Pacemaker lead malfunction Pacemaker at end of battery life Vulvar cyst Candidal intertrigo Bronchiectasis, non-tuberculous COPD (chronic obstructive pulmonary disease) Acute exacerbation of chronic obstructive pulmonary disease Stopped smoking with greater than 30 pack year history History of asthma Family history of asthma Allergic rhinitis, unspecified History of 2019 novel coronavirus disease (COVID-19) COPD (chronic obstructive pulmonary disease) Acute respiratory failure with hypoxia COPD exacerbation Encounter for screening for malignant neoplasm of lung in current smoker with 30 pack year history or greater Stopped smoking with greater than 30 pack year history History of asthma Family history of asthma Allergic rhinitis History of 2019 novel coronavirus disease (COVID-19) COPD exacerbation Hyperlipemia PAF (paroxysmal atrial fibrillation) COPD (chronic obstructive pulmonary disease) On statin therapy Diabetes (~06/2020) Cardiac pacemaker in situ Fatigue HHD (hypertensive heart disease) Surgical History History of tonsillectomy History of cholecystectomy Hx of tonsillectomy History of arthroplasty of right knee Hx of cholecystectomy Family History Other Cancer Coronary artery disease Diabetes Hyperlipidemia Hypertension Social History Smoking Status: Former smoker tobacco type: cigarettes packs per day: 1 smoking status stop date: 09/12/2022 second hand exposure: Yes alcohol intake: never substance use type: denies use current occupational status: other Travel in the last 8 weeks?: None household members: none housing: house marital status: number of children: 0 current occupational exposures/hazards: No caffeine: Yes PM Subjective & Objective Subjective Subjective:: Patient is a pleasant 69-year-old female who presents today for follow-up of lumbar epidural steroid injection L4-L5 on 11/11/2024. Today she rates her pain a 9 out of 10. She denies any new falls or injuries. Patient does state that the injection did help about 50% however only seem to really last a couple of days. Patient states that it was great when it was really working however she is back to her baseline. Patient does have significant peripheral neuropathy she states and that aggravates her overall symptoms as well. Patient was counseled in the past that she may be a beneficial candidate of a pump trial. Patient states she is still on the fence regarding this. Patient does state that she has chronic low back and neck pain and denies any recent imaging. Her Anibal has been reviewed and is appropriate. Review of Systems: General: No recent weight changes, no fever, no sleep disturbances Respiratory: No cough, no shortness of air, no recurring pulmonary infections Cardiovascular/peripheral vascular: No chest pain, no palpitations, no edema, no shortness of breath Gastrointestinal: No new onset incontinence, normal bowel movements reported Genitourinary: No new onset incontinence Musculoskeletal: Low back pain, neck pain Psychiatric: [Normal mood/affect] Neurological: [Denies weakness in extremities], [denies balance issues] Pain at rest (0-10 scale): 9 Objective Objective:: Physical Exam: General: Alert and oriented x3, no acute distress, pleasant and cooperative Lungs: Respirations even and unlabored, symmetrical chest expansion Eyes: PERRL Musculoskeletal: Flexion and extension of lumbar [spine] somewhat guarded secondary to pain, [antalgic gait noted] Neurological: Speech clear, no gross sensory deficit Has patient had previous pain injection?: Yes Percent improvement in pain since last injection: 50% Conservative treatment options previously tried: Home exercise plan Length of treatment: Longer than 12 weeks Meds Home Medications and Allergies Home Medications ?Medication ?Instructions ?Recorded ?Confirmed ?Type pen needle, diabetic 32 gauge x #100 01/28/24 11/26/24 Rx 1/4 (BD Ultra-Fine Micro Pen Needle) blood-glucose sensor (Dexcom G6 #1 01/30/24 11/26/24 Rx Sensor device) blood-glucose transmitter (Dexcom #1 01/30/24 11/26/24 Rx G6 Transmitter device) blood-glucose,director funds development,cont #1 01/30/24 11/26/24 Rx (Dexcom G6 Corporate Sales Trainer) empagliflozin 25 mg tablet 25 mg PO DAILY 90 days #90 tabs 02/20/24 11/26/24 Rx (Jardiance) montelukast 10 mg tablet 10 mg PO PM 04/17/24 11/26/24 History pantoprazole 40 mg tablet,delayed 40 mg PO DAILY 04/17/24 11/26/24 History release budesonide 0.5 mg/2 mL suspension 0.5 mg (2 mL) inhalation BID 90 05/05/24 11/26/24 Rx for nebulization (Pulmicort) days #360 mL lancets 33 gauge (TRUEplus Lancets) #100 ea 05/07/24 11/26/24 Rx blood sugar diagnostic (Easy Touch #100 strips 06/04/24 11/26/24 Rx Test Strip) bisoprolol fumarate 10 mg tablet See Rx Instructions .Route 08/06/24 11/26/24 Rx .COMPLEX #60 tabs diltiazem HCl 240 mg See Rx Instructions .Route 08/06/24 11/26/24 Rx capsule,extended release 24 hr .COMPLEX #90 caps atorvastatin 80 mg tablet See Rx Instructions .Route 08/07/24 11/26/24 Rx .COMPLEX #90 tabs buspirone 10 mg tablet 10 mg PO BID 90 days #180 tabs 08/07/24 11/26/24 Rx fluoxetine 20 mg capsule 20 mg PO BID 90 days #180 caps 08/07/24 11/26/24 Rx furosemide 40 mg tablet See Rx Instructions .Route 08/07/24 11/26/24 Rx .COMPLEX #90 tabs albuterol sulfate 90 mcg/actuation See Rx Instructions .Route 08/27/24 11/26/24 Rx aerosol inhaler .COMPLEX #8.5 grams ipratropium 0.5 mg-albuterol 3 mg 3 ml inhalation QID PRN shortness 08/28/24 11/26/24 Rx (2.5 mg base)/3 mL nebulization of breath or wheezing 90 days #270 soln mL cyclobenzaprine 10 mg tablet 10 mg PO TID PRN muscle spasm #60 09/09/24 11/26/24 Rx tabs baclofen 5 mg tablet 5 mg PO TID #42 tabs 09/18/24 11/26/24 Rx spironolactone 25 mg tablet 25 mg PO DAILY #30 tabs 10/01/24 11/26/24 Rx (Aldactone) lisinopril 2.5 mg tablet See Rx Instructions .Route 10/30/24 11/26/24 Rx .COMPLEX #90 tabs metformin 500 mg tablet See Rx Instructions .Route 10/30/24 11/26/24 Rx .COMPLEX #120 tabs rivaroxaban 20 mg tablet (Xarelto) See Rx Instructions .Route 10/30/24 11/26/24 Rx .COMPLEX #90 tabs magnesium oxide 400 mg (241.3 mg 400 mg PO BID #60 tabs 11/04/24 11/26/24 Rx magnesium) tablet ropinirole 0.25 mg tablet See Rx Instructions .Route 11/04/24 11/26/24 Rx .COMPLEX #60 tabs fluticasone propionate 50 1 spray intranasal DAILY #16 grams 11/06/24 11/26/24 Rx mcg/actuation nasal spray,suspension benzonatate 200 mg capsule 200 mg PO TID PRN cough #30 caps 11/07/24 11/26/24 Rx levofloxacin 500 mg tablet 500 mg PO DAILY 5 days #5 tabs 11/07/24 11/26/24 Rx insulin glargine-yfgn 100 unit/mL 32 unit (0.32 mL) SQ BID 30 days 11/17/24 11/26/24 Rx (3 mL) subcutaneous pen (Semglee #19.2 mL (insulin glargine-yfgn) Pen) prednisone 20 mg tablet 20 mg PO BID #10 tabs 11/25/24 11/26/24 Rx New Prescriptions to Start Prescriptions: Allergies Allergy/AdvReac Type Severity Reaction Status Date / Time verapamil Allergy Severe Rash Verified 11/25/24 13:42 Iodine and Iodide Containing Allergy Mild Rash Verified 11/25/24 13:42 Produc Penicillins (PENICILLINS) Allergy Unknown I-RASH Verified 11/25/24 13:42 Sulfa (Sulfonamide Allergy Unknown NA-NAUSEA/V Verified 11/25/24 13:42 Antibiotics) (SULFA OMITING (SULFONAMIDE ANTIBIOTICS)) Assessment and Plan *Assessment and plan (1) Low back pain: Status: Acute Qualifiers: Back pain laterality: bilateral Chronicity: chronic Sciatica laterality: sciatica of right side Sciatica presence: with sciatica Qualified Code(s): M54.41 - Lumbago with sciatica, right side; G89.29 - Other chronic pain Category: Medical Code(s): M54.50 - Low back pain, unspecified (2) Neck pain: Status: Acute Category: Medical Code(s): M54.2 - Cervicalgia Plan I did discuss with the patient due to her injection only providing temporary relief that I do still believe that she would be a beneficial candidate of the pump trial. I did discuss with her since she has not had any updated imaging that I will put in a x-ray order of her cervical and lumbar spine. I will also send in a prescription of pregabalin 25 mg at bedtime to see if this does improve some of her peripheral neuropathy symptoms. Patient will return to clinic in 3 weeks for reevaluation of symptoms and plan of care. Patient has been instructed to contact the clinic with any concerns before the next appointment. Dr. Hawkins has reviewed this note and agrees with this plan of care. This note was dictated using voice recognition software and make contain errors or omissions. All injections are used with Lidocaine, Bupivacaine and dexamethasone. Occasionally urine drug screen is needed to verify patient's compliance with our office pain contract. This is ordered based off specific treatments related to chronic pain with the potential to abuse certain medications.
== END 2024-11-26 23:59 | disposition home or self-care (01) ==
PROVIDERS: PCP Nurse Practitioner Family; Visit Provider Nurse Practitioner Family
DX: M54.41 Lumbago with sciatica, right side (principal); G89.29 Other chronic pain; M54.2 Cervicalgia; M54.16 Radiculopathy, lumbar region; Z87.891 Personal history of nicotine dependence; Z79.899 Other long term (current) drug therapy
CPT/HCPCS: 99212; G0463

== ENCOUNTER 2024-12-23 06:22 | Observation (INO) | payer MEDICARE, MEDICAID, SELFPAY ==
[2024-12-23] VITALS (14 sets, daily range): BP systolic 113–133; BP diastolic 46–80; PULSE 48–95; RESP 16–25; TEMP 36.6–36.8; O2SAT 91–98; BMI 32.5; BMI 32.8
--- NOTE | 2024-12-23 06:19 | XR_ITS ---
PROCEDURE INFORMATION: Exam: XR Chest Exam date and time: 12/23/2024 6:27 AM Age: 69 years old Clinical indication: Condition or disease; Other: Copd; Shortness of breath; Additional info: Copd, shortness of breath TECHNIQUE: Imaging protocol: Radiologic exam of the chest. Views: 1 view. COMPARISON: CR XR CHEST PORTABLE 04/22/2024 5:51 AM FINDINGS: Tubes, catheters and devices: Pacemaker is present via a left subclavian approach. Lungs: Emphysema. Lungs are well aerated without a focal area of consolidation. Pleural spaces: Unremarkable. No pleural effusion. No pneumothorax. Heart/Mediastinum: Borderline cardiomegaly. Bones/joints: Unremarkable. IMPRESSION: Lungs are well aerated without a focal area of consolidation. Improved aeration right lung base in reference to the chest radiograph dated 04-22-24..
--- NOTE | 2024-12-23 06:21 | ECG_ITS ---
APPROVED REPORT Exam: Resting ECG HR:69 bpm ECG Measurements Heart Rate 69 AXES UT 164 P 160 QRSd 97 QRS 2 QT 367 T 121 QTc 387 Conclusion Atrially paced rhythm T wave inversions 1 and aVL without reciprocal elevations Electronically signed by : PAOLO GARDNER, 12/24/2024 08:16:11
--- NOTE | 2024-12-23 06:23 | [facility].EDGENADL ---
Discharge Plan Disposition Patient Disposition: Admitted Chief Complaint: Shortness of Breath/Dyspnea Clinical Impressions Clinical Impression: Acute exacerbation of chronic obstructive pulmonary disease, Respiratory distress Discharge ED Provider: Jann Gonzalez General Adult HPI <Giacomo Zazueta MD - Last Filed: 12/23/24 06:50> General Chief complaint: Shortness of Breath/Dyspnea Stated complaint: SHORTNESS OF BREATH Time Seen by Provider: 12/23/24 06:23 History of Present Illness HPI narrative: 69-year-old female with history of COPD, CHF chronic respiratory failure on 4 L nasal cannula at baseline presents for shortness of breath. She reports has been ongoing for about a week but has been getting worse. She reports increased productive cough. Denies fever. Denies new or worsening edema. Patient received 125 Solu-Medrol and 1 DuoNeb with EMS. Patient reports that her oxygen was in the 80s at home. she was in the 90s with EMS. Patient also reports chest pain and back pain that started this morning. Related Data Home Medications ?Medication ?Instructions ?Recorded ?Confirmed montelukast 10 mg tablet 10 mg PO PM 04/17/24 11/26/24 pantoprazole 40 mg tablet,delayed 40 mg PO DAILY 04/17/24 11/26/24 release Previous Rx's ?Medication ?Instructions ?Recorded pen needle, diabetic 32 gauge x #100 ea 01/28/2408/02 (BD Ultra-Fine Micro Pen Needle) blood-glucose sensor (Dexcom G6 #1 ea 01/30/24 Sensor device) blood-glucose transmitter (Dexcom #1 ea 01/30/24 G6 Transmitter device) blood-glucose,grounds supervisor,cont #1 ea 01/30/24 (Dexcom G6 Shipping Technician) empagliflozin 25 mg tablet 25 mg PO DAILY 90 days #90 tabs 02/20/24 (Jardiance) budesonide 0.5 mg/2 mL suspension 0.5 mg (2 mL) inhalation BID 90 05/05/24 for nebulization (Pulmicort) days #360 mL lancets 33 gauge (TRUEplus Lancets) #100 ea 05/07/24 blood sugar diagnostic (Easy Touch #100 strips 06/04/24 Test Strip) bisoprolol fumarate 10 mg tablet See Rx Instructions .Route 08/06/24 .COMPLEX #60 tabs diltiazem HCl 240 mg See Rx Instructions .Route 08/06/24 capsule,extended release 24 hr .COMPLEX #90 caps atorvastatin 80 mg tablet See Rx Instructions .Route 08/07/24 .COMPLEX #90 tabs buspirone 10 mg tablet 10 mg PO BID 90 days #180 tabs 08/07/24 fluoxetine 20 mg capsule 20 mg PO BID 90 days #180 caps 08/07/24 furosemide 40 mg tablet See Rx Instructions .Route 08/07/24 .COMPLEX #90 tabs albuterol sulfate 90 mcg/actuation See Rx Instructions .Route 08/27/24 aerosol inhaler .COMPLEX #8.5 grams ipratropium 0.5 mg-albuterol 3 mg 3 ml inhalation QID PRN shortness 08/28/24 (2.5 mg base)/3 mL nebulization of breath or wheezing 90 days #270 soln mL cyclobenzaprine 10 mg tablet 10 mg PO TID PRN muscle spasm #60 09/09/24 tabs baclofen 5 mg tablet 5 mg PO TID #42 tabs 09/18/24 spironolactone 25 mg tablet 25 mg PO DAILY #30 tabs 10/01/24 (Aldactone) lisinopril 2.5 mg tablet See Rx Instructions .Route 10/30/24 .COMPLEX #90 tabs metformin 500 mg tablet See Rx Instructions .Route 10/30/24 .COMPLEX #120 tabs rivaroxaban 20 mg tablet (Xarelto) See Rx Instructions .Route 10/30/24 .COMPLEX #90 tabs magnesium oxide 400 mg (241.3 mg 400 mg PO BID #60 tabs 11/04/24 magnesium) tablet ropinirole 0.25 mg tablet See Rx Instructions .Route 11/04/24 .COMPLEX #60 tabs benzonatate 200 mg capsule 200 mg PO TID PRN cough #30 caps 11/07/24 levofloxacin 500 mg tablet 500 mg PO DAILY 5 days #5 tabs 11/07/24 insulin glargine-yfgn 100 unit/mL 32 unit (0.32 mL) SQ BID 30 days 11/17/24 (3 mL) subcutaneous pen (Semglee #19.2 mL (insulin glargine-yfgn) Pen) prednisone 20 mg tablet 20 mg PO BID #10 tabs 11/25/24 pregabalin 25 mg capsule 25 mg PO HS #14 caps 11/26/24 fluticasone propionate 50 1 spray intranasal DAILY #16 grams 11/27/24 mcg/actuation nasal spray,suspension nicotine (polacrilex) 4 mg gum 4 mg buccal Q2H #50 ea 12/11/24 (Nicorette) Allergies Allergy/AdvReac Type Severity Reaction Status Date / Time verapamil Allergy Severe Rash Verified 11/25/24 13:42 Iodine and Iodide Containing Allergy Mild Rash Verified 11/25/24 13:42 Produc Penicillins (PENICILLINS) Allergy Unknown I-RASH Verified 11/25/24 13:42 Sulfa (Sulfonamide Allergy Unknown NA-NAUSEA/V Verified 11/25/24 13:42 Antibiotics) (SULFA OMITING (SULFONAMIDE ANTIBIOTICS)) [facility] <Giacomo Zazueta MD - Last Filed: 12/23/24 06:50> [facility] Disclaimer: The information contained in this section may have been updated after the patient was seen, as this information can be updated by other users. Medical History Chronic, continuous use of opioids Overuse of medication Pneumonia Pre-operative cardiovascular examination Pacemaker lead malfunction Pacemaker at end of battery life Vulvar cyst Candidal intertrigo Bronchiectasis, non-tuberculous COPD (chronic obstructive pulmonary disease) Acute exacerbation of chronic obstructive pulmonary disease Stopped smoking with greater than 30 pack year history History of asthma Family history of asthma Allergic rhinitis, unspecified History of 2019 novel coronavirus disease (COVID-19) COPD (chronic obstructive pulmonary disease) Acute respiratory failure with hypoxia COPD exacerbation Encounter for screening for malignant neoplasm of lung in current smoker with 30 pack year history or greater Stopped smoking with greater than 30 pack year history History of asthma Family history of asthma Allergic rhinitis History of 2019 novel coronavirus disease (COVID-19) COPD exacerbation Hyperlipemia PAF (paroxysmal atrial fibrillation) COPD (chronic obstructive pulmonary disease) On statin therapy Diabetes (~06/2020) Cardiac pacemaker in situ Fatigue HHD (hypertensive heart disease) Surgical History History of tonsillectomy History of cholecystectomy Hx of tonsillectomy History of arthroplasty of right knee Hx of cholecystectomy Family History Other Cancer Coronary artery disease Diabetes Hyperlipidemia Hypertension Social History (Reviewed 11/26/24 @ 14:08 by SANGITA Holland Smoking Status: Current every day smoker tobacco type: cigarettes packs per day: 1 smoking status stop date: 09/12/2022 second hand exposure: Yes alcohol intake: never substance use type: denies use current occupational status: other Travel in the last 8 weeks?: None household members: none housing: house marital status: number of children: 0 current occupational exposures/hazards: No caffeine: Yes Have you lived/traveled outside [place] in past 30 days?: No Contact w/someone who lives/traveled outside [place] past 30 days?: No Exposure to someone with infectious disease in past 14 days?: No Do you have a fever (greater than 100.4 F or 38 C)?: No Have you tested positive for COVID-19?: No Exposed to someone with COVID-19 in past 14 days?: No Do you have a sore throat?: No Do you have a cough?: No Do you have any weakness?: No Do you have any diarrhea?: No Are you experiencing any unusual bleeding?: No Do you have any muscle aches/pain?: No Do you have any abdominal pain?: No Are you experiencing loss of taste or smell?: No Other Medical History Have you received the Flu Vaccine for this season: Yes Have you received the Pneumonia Vaccine: Yes <Giacomo Zazueta MD - Last Filed: 12/23/24 06:50> ROS Obtained: Yes All systems reviewed & no additional complaints except as documented Physical Exam <Giacomo Zazueta MD - Last Filed: 12/23/24 06:50> General General appearance: alert and in distress Head Head exam: atraumatic and normocephalic Eye Eye exam: Present normal appearance, PERRL and EOMI ENT ENT exam: Present normal oropharynx and normal external ear exam Neck Neck exam: Present normal inspection and full ROM Chest Chest inspection: Present symmetric chest wall rise; Absent normal inspection (Barrel chested) or tenderness Respiratory Respiratory exam: Present respiratory distress, wheezes, accessory muscle use and prolonged expiratory phase Cardiovascular Cardiovascular exam: Present regular rate and normal rhythm Abdominal Exam Abdominal exam: Present soft; Absent distention, tenderness or guarding Extremities Exam Extremities exam: Present normal inspection; Absent edema or joint swelling Back Exam Back exam: Present normal inspection; Absent tenderness Neurological Exam Neurological exam: Present alert and oriented X3; Absent motor sensory deficit Psychiatric Psychiatric exam: Present normal affect and normal mood Skin Skin exam: Present warm, dry and normal color Lymphatic Lymphatic Findings: no adenopathy Medical Decision Making <Giacomo Zazueta MD - Last Filed: 12/23/24 06:50> Medical Records Medical records reviewed: Yes I reviewed the patient's medical records. Screening: Per USPSTF and CDC recommendations, given the prevalence of disease in our region, it is our hospital?s policy to screen for HIV and viral Hepatitis for all patients aged 18 and over and those with ongoing risk factors. Anibal Inquiry Pt receiving controlled substance: No Anibal was queried for this patient: No Vital Signs: 12/23/24 06:22 12/23/24 06:30 12/23/24 06:30 Temperature 97.9 F Temperature Source Oral Pulse Rate 70 70 Pulse Rate [Right Radial] 76 Respiratory Rate 16 Blood Pressure Blood Pressure [Right Arm] 121/64 Blood Pressure Mean Blood Pressure Mean [Right Arm] 83 Blood Pressure Source [Right Arm] Automatic Cuff Blood Pressure Position [Right Arm] Supine 02 Sat by Pulse Oximetry 95 Oxygen Delivery Method Nasal Cannula Oxygen Flow Rate (LPM) 4 12/23/24 06:31 12/23/24 07:00 12/23/24 07:15 Temperature Temperature Source Pulse Rate 70 70 70 Pulse Rate [Right Radial] Respiratory Rate 16 20 22 Blood Pressure 123/61 123/53 L Blood Pressure [Right Arm] Blood Pressure Mean 81 Blood Pressure Mean [Right Arm] Blood Pressure Source [Right Arm] Blood Pressure Position [Right Arm] 02 Sat by Pulse Oximetry 95 94 L 95 Oxygen Delivery Method Nasal Cannula Oxygen Flow Rate (LPM) 4 12/23/24 07:30 Temperature Temperature Source Pulse Rate 70 Pulse Rate [Right Radial] Respiratory Rate 22 Blood Pressure 122/64 Blood Pressure [Right Arm] Blood Pressure Mean 84 Blood Pressure Mean [Right Arm] Blood Pressure Source [Right Arm] Blood Pressure Position [Right Arm] 02 Sat by Pulse Oximetry 96 Oxygen Delivery Method Nasal Cannula Oxygen Flow Rate (LPM) 4 Lab Data Lab results reviewed: Yes I reviewed the patient's lab results. Lab Results 12/23/24 06:05: WBC 12.2 H, RBC 5.28, Hgb 14.1, Hct 47.1 H, MCV 89.2, MCH 26.7 L, MCHC 29.9 L, RDW 15.6, Plt Count 214, MPV 11.5 H, Neut % (Auto) 70.3, Lymph % (Auto) 16.9, Ponce % (Auto) 7.4, Eos % (Auto) 3.2, Baso % (Auto) 1.0, Neut # (Auto) 8.6 H, Lymph # (Auto) 2.1, Ponce # (Auto) 0.9, Eos # (Auto) 0.4, Baso # (Auto) 0.1, VBG pH 7.29 L, VBG pCO2 55.4 H, VBG pO2 48.4 H, VBG HCO3 26.0, VBG Total CO2 27.7 H, VBG O2 Saturation 82.4 H, VBG Base Excess -0.5, VBG Lactic Acid 1.9, Sodium 140, Potassium 4.6, Chloride 106, Carbon Dioxide 30, Anion Gap 8.6, BUN 20 H, Creatinine 0.70, Estimated Creat Clear 81, Estimated GFR 82, Est GFR ( Amer) 100, Glucose 218 H, Calcium 9.5, Total Bilirubin 0.4, AST 31, ALT 24, Alkaline Phosphatase 103, Troponin I < 0.01, NT-Pro-B Natriuret Pep 166 H, Total Protein 6.5, Albumin 4.0, Globulin 2.5, Albumin/Globulin Ratio 1.6 12/23/24 06:05 12/23/24 06:05 Orders (Tests/Meds): ED MEDICATIONS Generic Name Dose Route Start Last Admin Trade Name Freq PRN Reason Stop Dose Admin Albuterol/Ipratropium 3 ml 12/23/24 10:00 Ipratropium/Albuterol 3 Ml [facility] 01/22/25 09:59 Q4RT HAJA Budesonide 0.5 mg 12/23/24 18:00 Budesonide 0.5mg/2ml [facility] 01/22/25 17:59 BIDRT HAJA Methylprednisolone Sodium Succinate 60 mg 12/23/24 07:45 12/23/24 07:53 Methylprednisolone Sod Succ 125mg Vial IV 01/22/25 07:44 60 mg Q12H HAJA Administration Discontinued Medications Generic Name Dose Route Start Last Admin Trade Name Freq PRN Reason Stop Dose Admin Acetaminophen 1,000 mg 12/23/24 06:19 12/23/24 06:33 Acetaminophen 500mg Tab PO 12/23/24 06:20 1,000 mg ONCE ONE Administration Albuterol/Ipratropium 6 ml 12/23/24 06:19 12/23/24 06:33 Ipratropium/Albuterol 3 Ml Neb IH 12/23/24 06:20 6 ml ONCE ONE Administration Doxycycline Hyclate 100 mg 12/23/24 07:20 12/23/24 07:52 Doxycycline Hycl 100 Mg Tablet PO 12/23/24 07:21 100 mg ONCE ONE Administration Magnesium Sulfate 2 gm in 50 mls @ 150 mls/hr 12/23/24 06:19 12/23/24 06:33 Magnesium Sulfate 2gm/50ml Premix IV 12/23/24 06:38 150 mls/hr ONCE ONE Administration ORDERS Category Date Time Status Pulmonology Consult [Consult to Pulmonology] [CONS] Cons 12/23/24 07:37 Active Routine CXR --portable [XR chest portable] Stat Exams 12/23/24 06:19 Completed BNP [NT Pro Brain Natriuretic Pep.] Stat Lab 12/23/24 06:05 Completed CBC w/Auto Diff [Complete Blood Count Auto Diff] Stat Lab 12/23/24 06:05 Completed CMP [Comprehensive Metabolic Panel] Stat Lab 12/23/24 06:05 Completed Complete Blood Count Auto Diff AMLAB Lab 12/24/24 06:00 Ordered Comprehensive Metabolic Panel AMLAB Lab 12/24/24 06:00 Ordered Full Resp Panel w/COVID ([facility]) Routine Lab 12/23/24 07:55 Received Magnesium AMLAB Lab 12/24/24 06:00 Ordered Troponin I Q3H Lab 12/23/24 06:05 Completed Troponin I Q3H Lab 12/23/24 09:30 Ordered VBG [Venous Blood Gas] Stat RT 12/23/24 06:05 Completed Medical Decision Narrative: 69-year-old female with history of COPD, CHF, chronic respiratory failure on 4 L nasal cannula presents for 1 week of worsening shortness of breath, 1 day of chest pain. History was obtained via interactive discussion with patient, EMS, chart review. On arrival, patient is afebrile, hemodynamically stable, moving all extremities spontaneously. Full physical exam performed and significant for respiratory distress with significant accessory muscle use. Lungs have wheezes and rhonchi with prolonged expiratory phase. Differential includes but is not limited to COPD exacerbation, CHF, pneumonia, ACS, musculoskeletal pain. Patient was given 1 DuoNeb and 125 Solu-Medrol by EMS prior to arrival. Given DuoNeb x 2, IV mag for symptomatic management and correction of underlying abnormalities. Workup initiated including CBC CMP troponin EKG chest x-ray [facility]. Laboratory workup independently interpreted by me and significant for mild leukocytosis, VBG with mild respiratory acidosis and minimally elevated lactate, no significant electrolyte derangement.. Imaging independently interpreted by me and significant for clear lungs bilaterally, lungs appear hyperinflated with flattened diaphragms bilaterally. See radiology read for full review of final results. EKG independently interpreted by me and significant for sinus rhythm, rate of 69, no concerning ST changes. Interpreted at 0621. At this time care was handed off to oncoming physician pending reassessment and serial troponins. <Jann Gonzalez MD - Last Filed: 12/23/24 08:08> Vital Signs: 12/23/24 06:22 12/23/24 06:30 12/23/24 06:30 Temperature 97.9 F Temperature Source Oral Pulse Rate 70 70 Pulse Rate [Right Radial] 76 Respiratory Rate 16 Blood Pressure Blood Pressure [Right Arm] 121/64 Blood Pressure Mean Blood Pressure Mean [Right Arm] 83 Blood Pressure Source [Right Arm] Automatic Cuff Blood Pressure Position [Right Arm] Supine 02 Sat by Pulse Oximetry 95 Oxygen Delivery Method Nasal Cannula Oxygen Flow Rate (LPM) 4 12/23/24 06:31 12/23/24 07:00 12/23/24 07:15 Temperature Temperature Source Pulse Rate 70 70 70 Pulse Rate [Right Radial] Respiratory Rate 16 20 22 Blood Pressure 123/61 123/53 L Blood Pressure [Right Arm] Blood Pressure Mean 81 Blood Pressure Mean [Right Arm] Blood Pressure Source [Right Arm] Blood Pressure Position [Right Arm] 02 Sat by Pulse Oximetry 95 94 L 95 Oxygen Delivery Method Nasal Cannula Oxygen Flow Rate (LPM) 4 12/23/24 07:30 Temperature Temperature Source Pulse Rate 70 Pulse Rate [Right Radial] Respiratory Rate 22 Blood Pressure 122/64 Blood Pressure [Right Arm] Blood Pressure Mean 84 Blood Pressure Mean [Right Arm] Blood Pressure Source [Right Arm] Blood Pressure Position [Right Arm] 02 Sat by Pulse Oximetry 96 Oxygen Delivery Method Nasal Cannula Oxygen Flow Rate (LPM) 4 Lab Data Lab Results 12/23/24 06:05: WBC 12.2 H, RBC 5.28, Hgb 14.1, Hct 47.1 H, MCV 89.2, MCH 26.7 L, MCHC 29.9 L, RDW 15.6, Plt Count 214, MPV 11.5 H, Neut % (Auto) 70.3, Lymph % (Auto) 16.9, Ponce % (Auto) 7.4, Eos % (Auto) 3.2, Baso % (Auto) 1.0, Neut # (Auto) 8.6 H, Lymph # (Auto) 2.1, Ponce # (Auto) 0.9, Eos # (Auto) 0.4, Baso # (Auto) 0.1, VBG pH 7.29 L, VBG pCO2 55.4 H, VBG pO2 48.4 H, VBG HCO3 26.0, VBG Total CO2 27.7 H, VBG O2 Saturation 82.4 H, VBG Base Excess -0.5, VBG Lactic Acid 1.9, Sodium 140, Potassium 4.6, Chloride 106, Carbon Dioxide 30, Anion Gap 8.6, BUN 20 H, Creatinine 0.70, Estimated Creat Clear 81, Estimated GFR 82, Est GFR ( Amer) 100, Glucose 218 H, Calcium 9.5, Total Bilirubin 0.4, AST 31, ALT 24, Alkaline Phosphatase 103, Troponin I < 0.01, NT-Pro-B Natriuret Pep 166 H, Total Protein 6.5, Albumin 4.0, Globulin 2.5, Albumin/Globulin Ratio 1.6 Orders (Tests/Meds): ED MEDICATIONS Generic Name Dose Route Start Last Admin Trade Name Freq PRN Reason Stop Dose Admin Albuterol/Ipratropium 3 ml 12/23/24 10:00 Ipratropium/Albuterol 3 Ml [facility] 01/22/25 09:59 Q4RT HAJA Budesonide 0.5 mg 12/23/24 18:00 Budesonide 0.5mg/2ml [facility] 01/22/25 17:59 BIDRT HAJA Methylprednisolone Sodium Succinate 60 mg 12/23/24 07:45 12/23/24 07:53 Methylprednisolone Sod Succ 125mg Vial IV 01/22/25 07:44 60 mg Q12H HAJA Administration Discontinued Medications Generic Name Dose Route Start Last Admin Trade Name Freq PRN Reason Stop Dose Admin Acetaminophen 1,000 mg 12/23/24 06:19 12/23/24 06:33 Acetaminophen 500mg Tab PO 12/23/24 06:20 1,000 mg ONCE ONE Administration Albuterol/Ipratropium 6 ml 12/23/24 06:19 12/23/24 06:33 Ipratropium/Albuterol 3 Ml Neb IH 12/23/24 06:20 6 ml ONCE ONE Administration Doxycycline Hyclate 100 mg 12/23/24 07:20 12/23/24 07:52 Doxycycline Hycl 100 Mg Tablet PO 12/23/24 07:21 100 mg ONCE ONE Administration Magnesium Sulfate 2 gm in 50 mls @ 150 mls/hr 12/23/24 06:19 12/23/24 06:33 Magnesium Sulfate 2gm/50ml Premix IV 12/23/24 06:38 150 mls/hr ONCE ONE Administration ORDERS Category Date Time Status Pulmonology Consult [Consult to Pulmonology] [CONS] Cons 12/23/24 07:37 Active Routine CXR --portable [XR chest portable] Stat Exams 12/23/24 06:19 Completed BNP [NT Pro Brain Natriuretic Pep.] Stat Lab 12/23/24 06:05 Completed CBC w/Auto Diff [Complete Blood Count Auto Diff] Stat Lab 12/23/24 06:05 Completed CMP [Comprehensive Metabolic Panel] Stat Lab 12/23/24 06:05 Completed Complete Blood Count Auto Diff AMLAB Lab 12/24/24 06:00 Ordered Comprehensive Metabolic Panel AMLAB Lab 12/24/24 06:00 Ordered Full Resp Panel w/COVID ([facility]) Routine Lab 12/23/24 07:55 Received Magnesium AMLAB Lab 12/24/24 06:00 Ordered Troponin I Q3H Lab 12/23/24 06:05 Completed Troponin I Q3H Lab 12/23/24 09:30 Ordered VBG [Venous Blood Gas] Stat RT 12/23/24 06:05 Completed Medical Decision Narrative: 69-year-old female with history of COPD, CHF, chronic respiratory failure on 4 L nasal cannula presents for 1 week of worsening shortness of breath, 1 day of chest pain. History was obtained via interactive discussion with patient, EMS, chart review. On arrival, patient is afebrile, hemodynamically stable, moving all extremities spontaneously. Full physical exam performed and significant for respiratory distress with significant accessory muscle use. Lungs have wheezes and rhonchi with prolonged expiratory phase. Differential includes but is not limited to COPD exacerbation, CHF, pneumonia, ACS, musculoskeletal pain. Patient was given 1 DuoNeb and 125 Solu-Medrol by EMS prior to arrival. Given DuoNeb x 2, IV mag for symptomatic management and correction of underlying abnormalities. Workup initiated including CBC CMP troponin EKG chest x-ray [facility]. Laboratory workup independently interpreted by me and significant for mild leukocytosis, VBG with mild respiratory acidosis and minimally elevated lactate, no significant electrolyte derangement.. Imaging independently interpreted by me and significant for clear lungs bilaterally, lungs appear hyperinflated with flattened diaphragms bilaterally. See radiology read for full review of final results. EKG independently interpreted by me and significant for sinus rhythm, rate of 69, no concerning ST changes. Interpreted at 0621. At this time care was handed off to oncoming physician pending reassessment and serial troponins. Lisa: I assumed primary responsibility for this patient after signout from previous physician. I have taken care of Ms. Stallings in the emergency department multiple times in the past. History of COPD on 4 L nasal cannula, CHF, CAD, chronic pain on pain, asthma febrile on Xarelto/rate and rhythm control. Comes in with worsening breathing. States has been getting worse over the past few days. Chest pain more of a tightness. She has been coughing more than usual, cough is productive of thick sputum that is yellowish, this is new. No fevers or chills. On my independent evaluation, patient speaking in 1-2 word sentences, ending each sentence while expiring through pursed lips forcefully. Patient is auto peeping with prolonged expiratory phase. Lung auscultation with diffuse bilateral wheezes heard throughout expiratory phase. On independent interpretation of workup, largely nonactionable labs. Mild respiratory acidosis with PCO2 just over 55, pH 7.29, HCO3 within normal limits. Nonactionable cardiac labs. On independent interpretation of chest x-ray, no obvious acute disease. Because patient largely not improved after steroids, 3 DuoNebs, IV magnesium and still with respiratory distress, I contacted hospitalist after giving patient p.o. doxycycline. Agreeable to admission. Because patient high risk for clinical decompensation, deemed appropriate for inpatient admission. Results were relayed to patient who voiced understanding and patient was agreeable to inpatient admission and management. Patient was admitted to the hospital for further definitive management. Procedures <Giacomo Zazueta MD - Last Filed: 12/23/24 06:50> Risk/Benefits of Procedure(s) Were Explained: Yes Critical Care <Giacomo Zazueta MD - Last Filed: 12/23/24 06:50> Critical Care Time Critical Care Time: Yes Attestation: On , the high probability of a clinically significant, sudden or life threatening deterioration of the following system(s) respiratory required my full and direct attention, intervention and personal management. The time I documented below is in addition to time spent performing reported procedures but includes the following listed in this critical care notation. Total Time Total Critical Care Time: 35
[2024-12-23 06:28] LABS: Basophils # 0.1 K/mm3 (0-0.2); Eosinophils # 0.4 Kmm3 (0.0-0.4); Eosinophils % 3.2 % (0.1-12.0); Hematocrit 47.1 % (37.0-47.0); Hemoglobin 14.1 g/dL (12.2-16.2); Immature Granulocytes # 0.14 10^3uL; Immature Granulocytes % 1.2 %; Lymphocytes # 2.1 K/mm3 (0.7-4.5); Lymphocytes % 16.9 % (10-50); Mean Corpuscular HGB Conc 29.9 g/dL (31.8-35.4); Mean Corpuscular Hemoglobin 26.7 pg (27.0-31.2); Mean Corpuscular Volume 89.2 fl (81-99); Mean Platelet Volume 11.5 fl (7.4-10.4); Monocytes # 0.9 K/mm3 (0.1-1.0); Monocytes % 7.4 % (1.7-9.3); Neutrophils # 8.6 K/mm3 (1.8-7.8); Neutrophils % 70.3 % (37.0-80.0); Nucleated Red Blood Cells # 0 10^3/uL; Nucleated Red Blood Cells % 0 %; Platelet Count 214 K/mm3 (142-424); Red Blood Count 5.28 M/mm3 (4.20-5.40); Red Cell Distribution Width 15.6 % (11.5-17.5); Red Cell Distribution Width-SD 50.8 fL; White Blood Count 12.2 K/mm3 (4.8-10.8)
[2024-12-23 06:31] LABS: Lactate Venous 1.9 mmol/L (0.4-2.0); VBG Base Excess -0.5 mmol/L (-2.4-2.3); VBG Oxygen Saturation 82.4 % (50-70); VBG PH 7.29 mmol/L (7.31-7.41); VBG PO2 48.4 mmol/L (28-40); VBG Total CO2 27.7 mmol/L (23-27)
[2024-12-23 06:33] LABS: VBG PCO2 55.4 mmol/L (35-51)
[2024-12-23] MEDS: ACETAMINOPHEN 500MG TAB 1000 MG PO (06:33)
[2024-12-23] MEDS: IPRATROPIUM/ALBUTEROL 3 ML NEB 6 ML IH (06:33)
[2024-12-23] MEDS: MAGNESIUM SULFATE IN WATER 2 GM/50 ML PIGGYBACK IV (06:33)
--- NOTE | 2024-12-23 06:33 | PC.NURSE ---
[facility] CALLED. NOTIFIED
[2024-12-23 06:35] LABS: Alanine Aminotransferase 24 U/L (12-78); Albumin/Globulin Ratio 1.6 (1.1-1.8); Alkaline Phosphatase 103 U/L (38-126); Anion Gap 8.6 mEq/L (5-15); Aspartate Amino Transferase 31 U/L (14-36); Bilirubin,Total 0.4 mg/dl (0.2-1.3); Blood Urea Nitrogen 20 mg/dl (7-17); Calcium 9.5 mg/dl (8.4-10.2); Carbon Dioxide 30 mmol/L (22.0-30.0); Chloride 106 mmol/L (98-107); Creatinine Clearance Estimated 81 mL/min (50-200); Estimated Glomerular Filt Rate 82 ml/min (>60); GFR (African American) 100 ML/MIN (>60); Globulin 2.5 g/dL (1.3-3.2); Glucose 218 mg/dl (74-100); Potassium 4.6 mmoL/L (3.5-5.1); Sodium 140 mmol/L (136-145); Total Protein,Serum 6.5 g/dl (6.3-8.2)
[2024-12-23 06:44] LABS: NT Pro Brain Natriuretic Pep. 166 pg/mL (0-125)
[2024-12-23 06:53] LABS: Troponin I < 0.01 ng/ml (0.00-0.034)
--- NOTE | 2024-12-23 07:39 | EXP.HP ---
History of Present Illness *Admission Date: 12/23/24 *Reason for visit:: Worsening shortness of breath *History of present illness: 69-year-old female on chronic oxygen of 4 L. Has history of diabetes, hypertension, depression, COPD. Still smokes intermittently. Presented to the ER with worsening shortness of breath. Symptoms have worsened over the past week. Denies any significant increase in cough. On presentation to the ER, was on baseline oxygen of 4 L but had poor air movement. Did not respond well to steroids or nebulizers. Chest imaging showed no consolidation or pneumonia. Given her persistent dyspnea however increased work of breathing, medicine was consulted for admission and observation overnight for COPD exacerbation. On arrival to the floor, patient feels quite fatigued. Complaining of some upper back pain from coughing so much. Is on 4 L oxygen. Alert and oriented x 3. Denies fever, nausea, vomiting, diarrhea. [facility] Disclaimer: The information contained in this section may have been updated after the patient was seen, as this information can be updated by other users. Medical History Acute on chronic respiratory failure with hypoxia and hypercapnia Chronic, continuous use of opioids Overuse of medication Pneumonia Pre-operative cardiovascular examination Pacemaker lead malfunction Pacemaker at end of battery life Vulvar cyst Candidal intertrigo Bronchiectasis, non-tuberculous COPD (chronic obstructive pulmonary disease) Acute exacerbation of chronic obstructive pulmonary disease Stopped smoking with greater than 30 pack year history History of asthma Family history of asthma Allergic rhinitis, unspecified History of 2019 novel coronavirus disease (COVID-19) COPD (chronic obstructive pulmonary disease) Acute respiratory failure with hypoxia COPD exacerbation Encounter for screening for malignant neoplasm of lung in current smoker with 30 pack year history or greater Stopped smoking with greater than 30 pack year history History of asthma Family history of asthma Allergic rhinitis History of 2019 novel coronavirus disease (COVID-19) COPD exacerbation Hyperlipemia PAF (paroxysmal atrial fibrillation) COPD (chronic obstructive pulmonary disease) On statin therapy Diabetes (~06/2020) Cardiac pacemaker in situ Fatigue HHD (hypertensive heart disease) Surgical History History of tonsillectomy History of cholecystectomy Hx of tonsillectomy History of arthroplasty of right knee Hx of cholecystectomy Family History Other Cancer Coronary artery disease Diabetes Hyperlipidemia Hypertension Social History Smoking Status: Current every day smoker tobacco type: cigarettes packs per day: 1 smoking status stop date: 09/12/2022 second hand exposure: Yes alcohol intake: never substance use type: denies use current occupational status: disabled and other Travel in the last 8 weeks?: None household members: none housing: house marital status: number of children: 0 current occupational exposures/hazards: No caffeine: Yes Have you lived/traveled outside US in past 30 days?: No Contact w/someone who lives/traveled outside US past 30 days?: No Exposure to someone with infectious disease in past 14 days?: No Do you have a fever (greater than 100.4 F or 38 C)?: No Have you tested positive for COVID-19?: No Exposed to someone with COVID-19 in past 14 days?: No Do you have a sore throat?: No Do you have a cough?: No Do you have any weakness?: No Do you have any diarrhea?: No Are you experiencing any unusual bleeding?: No Do you have any muscle aches/pain?: No Do you have any abdominal pain?: No Are you experiencing loss of taste or smell?: No Other Medical History Have you received the Flu Vaccine for this season: Yes Have you received the Pneumonia Vaccine: Yes Review of Systems Review of Systems Review of systems (narrative): 14 point review of systems performed, pertinent positives and negatives as per HPI Meds Home Medications and Allergies Home Medications ?Medication ?Instructions ?Recorded ?Confirmed ?Type montelukast 10 mg tablet 10 mg PO PM 04/17/24 12/23/24 History pantoprazole 40 mg tablet,delayed 40 mg PO DAILY 04/17/24 12/23/24 History release buspirone 10 mg tablet 10 mg PO BID 90 days #180 tabs 08/07/24 12/23/24 Rx fluoxetine 20 mg capsule 20 mg PO BID 90 days #180 caps 08/07/24 12/23/24 Rx ipratropium 0.5 mg-albuterol 3 mg 3 ml inhalation QID PRN shortness 08/28/24 12/23/24 Rx (2.5 mg base)/3 mL nebulization of breath or wheezing 90 days #270 soln mL spironolactone 25 mg tablet 25 mg PO DAILY #30 tabs 10/01/24 12/23/24 Rx (Aldactone) magnesium oxide 400 mg (241.3 mg 400 mg PO BID #60 tabs 11/04/24 12/23/24 Rx magnesium) tablet pregabalin 25 mg capsule 25 mg PO HS #14 caps 11/26/24 12/23/24 Rx fluticasone propionate 50 1 spray intranasal DAILY #16 grams 11/27/24 12/23/24 Rx mcg/actuation nasal spray,suspension nicotine (polacrilex) 4 mg gum 4 mg buccal Q2H #50 ea 12/11/24 12/23/24 Rx (Nicorette) albuterol sulfate 90 mcg/actuation 2 puff inhalation Q6 PRN shortness 12/23/24 12/23/24 History aerosol inhaler of air atorvastatin 80 mg tablet 80 mg PO DAILY 12/23/24 12/23/24 History bisoprolol fumarate 10 mg tablet 10 mg PO BID 12/23/24 12/23/24 History budesonide 0.5 mg/2 mL suspension 0.5 mg inhalation TID 12/23/24 12/23/24 History for nebulization (Pulmicort) diltiazem HCl 240 mg 240 mg PO DAILY 12/23/24 12/23/24 History capsule,extended release 24 hr furosemide 40 mg tablet 40 mg PO BID 12/23/24 12/23/24 History insulin glargine 100 unit/mL (3 32 unit SQ BID 12/23/24 12/23/24 History mL) subcutaneous pen (Basaglar KwikPen U-100 Insulin) lisinopril 2.5 mg tablet 2.5 mg PO DAILY 12/23/24 12/23/24 History metformin 500 mg tablet 1,000 mg PO BID 12/23/24 12/23/24 History rivaroxaban 20 mg tablet (Xarelto) 20 mg PO QPMWITHMEAL 12/23/24 12/23/24 History ropinirole 0.25 mg tablet 0.5 mg PO HS 12/23/24 12/23/24 History New Prescriptions to Start Prescriptions: Allergies Allergy/AdvReac Type Severity Reaction Status Date / Time verapamil Allergy Severe Rash Verified 11/25/24 13:42 Iodine and Iodide Containing Allergy Mild Rash Verified 11/25/24 13:42 Produc Penicillins (PENICILLINS) Allergy Unknown I-RASH Verified 11/25/24 13:42 Sulfa (Sulfonamide Allergy Unknown NA-NAUSEA/V Verified 11/25/24 13:42 Antibiotics) (SULFA OMITING (SULFONAMIDE ANTIBIOTICS)) Exam Data for Last 24 hours Vital signs and Labs for Last 24 Hours: Temp Pulse Resp BP Pulse Ox O2 Del Method O2 Flow Rate 97.9 F 70 22 123/53 L 95 Nasal Cannula 4 12/23/24 06:22 12/23/24 07:15 12/23/24 07:15 12/23/24 07:15 12/23/24 07:15 12/23/24 07:15 12/23/24 07:15 Laboratory Results - last 24 hr 12/23/24 06:05: WBC 12.2 H, RBC 5.28, Hgb 14.1, Hct 47.1 H, MCV 89.2, MCH 26.7 L, MCHC 29.9 L, RDW 15.6, Plt Count 214, MPV 11.5 H, Neut % (Auto) 70.3, Lymph % (Auto) 16.9, [place] % (Auto) 7.4, Eos % (Auto) 3.2, Baso % (Auto) 1.0, Neut # (Auto) 8.6 H, Lymph # (Auto) 2.1, [place] # (Auto) 0.9, Eos # (Auto) 0.4, Baso # (Auto) 0.1, VBG pH 7.29 L, VBG pCO2 55.4 H, VBG pO2 48.4 H, VBG HCO3 26.0, VBG Total CO2 27.7 H, VBG O2 Saturation 82.4 H, VBG Base Excess -0.5, VBG Lactic Acid 1.9, Sodium 140, Potassium 4.6, Chloride 106, Carbon Dioxide 30, Anion Gap 8.6, BUN 20 H, Creatinine 0.70, Estimated Creat Clear 81, Estimated GFR 82, Est GFR ( Amer) 100, Glucose 218 H, Calcium 9.5, Total Bilirubin 0.4, AST 31, ALT 24, Alkaline Phosphatase 103, Troponin I < 0.01, NT-Pro-B Natriuret Pep 166 H, Total Protein 6.5, Albumin 4.0, Globulin 2.5, Albumin/Globulin Ratio 1.6 I & O for Last 24 hours: Intake & Output 12/20/24 12/21/24 12/22/24 12/23/24 23:59 23:59 23:59 23:59 Weight 99.79 kg Constitutional Constitutional: mild distress, obese, chronically ill appearing and cooperative *Routine HEENT Exam Head: Present normocephalic Eye: Present EOMI and PERRL ENT: Present mucous membranes moist *Routine Neck Exam Neck: Present supple; Absent lymphadenopathy *Routine Respiratory Exam Respiratory: Present prolonged expiratory phase, rhonchi and wheezes; Absent CTA bilaterally Comments: Moderate wheezing on bilateral lung powers. *Routine Cardiovascular Exam Cardiovascular: Present RRR *Routine Abdominal Exam Abdominal: Present soft and normoactive bowel sounds; Absent tenderness *Routine Rectal Exam Rectal:: deferred *Routine Genitalia Exam Genitalia:: deferred *Routine Extremities Exam Extremities: Absent cyanosis, clubbing or edema *Routine Skin Exam Skin: Present warm; Absent rash *Routine Neurological Exam Neurological: Present alert, oriented X3 and moving all extremities; Absent altered mental status Assessment and Plan *Assessment and plan (1) Acute on chronic respiratory failure with hypoxia and hypercapnia: Status: Acute Category: Medical Code(s): J96.21 - Acute and chronic respiratory failure with hypoxia; J96.22 - Acute and chronic respiratory failure with hypercapnia (2) Acute exacerbation of chronic obstructive pulmonary disease: Status: Acute Category: Medical Code(s): J44.1 - Chronic obstructive pulmonary disease with (acute) exacerbation (3) Diabetes mellitus: Status: Acute Category: Medical Code(s): E11.9 - Type 2 diabetes mellitus without complications (4) PAF (paroxysmal atrial fibrillation): Status: Acute Category: Medical Code(s): I48.0 - Paroxysmal atrial fibrillation (5) Generalized anxiety disorder: Status: Acute Category: Medical Code(s): F41.1 - Generalized anxiety disorder (6) Class 1 obesity: Status: Chronic Category: Medical Code(s): E66.811 - Obesity, class 1 (7) Tobacco abuse: Status: Chronic Category: Medical Code(s): Z72.0 - Tobacco use Plan Ms. Stallings is a 69-year-old female with history of COPD, diabetes, hypertension, obesity. Presented with worsening shortness of breath over the past week. Concern for COPD exacerbation. Discussed case with ER physician, request admission for poor response to steroids and nebulizers in the ED and continued distress. I agreed to admit for further care. Pulmonology consulted to assist with management. Problems addressed as follows: COPD with exacerbation Chronic hypoxemic respiratory failure -Per my review of chest x-ray, has no airspace disease or dense consolidation -Pulmonology consulted, appreciate their recommendations. Discussed case, recommend continuing DuoNebs every 4 hours along with Pulmicort twice daily -Received azithromycin in the ED 500 mg once. Continue 250 mg for 4 more days -Transition to methylprednisolone 40 mg IV daily -Lasix 40 mg IV once due to vascular congestion on chest imaging. -Supplemental oxygen as needed for goal sats greater 90%. Currently on 4 L which is her baseline - Continue Singulair 10 mg nightly Diabetes: A1c ordered and pending. Continue sliding scale insulin with fingersticks ACHS. Continue home insulin glargine 32 units twice daily. - Continue metformin 1000 mg twice daily Hypertension A-fib: - Continue bisoprolol 10 mg twice daily, diltiazem 240 mg daily, lisinopril 2.5 mg daily, spironolactone 25 mg daily, and Lasix 40 mg twice daily - continue Xarelto 20 mg daily Depression: Continue fluoxetine 20 mg twice daily COPD: Continue singular 10 mg nightly GERD: Continue pantoprazole 40 mg daily Neuropathy: Continue Lyrica 25 mg nightly Full code Diabetic diet
[2024-12-23] MEDS: DOXYCYCLINE HYCL 100 MG TABLET PO (07:52)
[2024-12-23] MEDS: METHYLPREDNISOLONE SOD SUCC 125MG VIAL 60 MG IV ×2 (07:53→20:44)
[2024-12-23 07:58] LABS: Adenovirus,PCR Not Detected (NotDetected); Bordetella Pertussis Not Detected (NotDetected); Chlamydophila Pneumoniae, PCR Not Detected (NotDetected); Coronavirus 19, PCR Not Detected (NotDetected); Coronavirus 229E Not Detected (NotDetected); Coronavirus NL63 Not Detected (NotDetected); Coronavirus OC43 Not Detected (NotDetected); Coronovirus HKU1,PCR Not Detected (NotDetected); Human Metapneumovirus Not Detected (NotDetected); Influenza A, PCR Not Detected (NotDetected); Influenza AH1, 2009 Not Detected (NotDetected); Influenza AH1, PCR Not Detected (NotDetected); Influenza AH3,PCR Not Detected (NotDetected); Influenza B, PCR Not Detected (NotDetected); Mycoplasma Pneumoniae, PCR Not Detected (NotDetected); Parainfluenza 1, PCR Not Detected (NotDetected); Parainfluenza 2, PCR Not Detected (NotDetected); Parainfluenza 3, PCR Not Detected (NotDetected); Parainfluenza 4, PCR Not Detected (NotDetected); Respiratory Syncytial Virus Not Detected (NotDetected); Rhinovirus/Enterovirus Not Detected (NotDetected)
--- NOTE | 2024-12-23 08:04 | PC.NURSE ---
sent up Resp. Panel
--- NOTE | 2024-12-23 08:26 | PC.NURSE ---
arrived by w/c from ED
--- NOTE | 2024-12-23 08:33 | PC.NURSE ---
Pt does not have anyone to bring in home meds. She is also a poor historian on home medications and can not provide information on what medication she takes.
--- NOTE | 2024-12-23 09:54 | EXP.PULM.CON ---
History of Present Illness History of present illness: Ms. Stallings is a 69-year-old female greater than [id number] smoking history prior smoker COPD, bronchiectasis, prior history of recurrent pneumonia presented to the ER with worsening respiratory distress and pulmonary vascular further evaluation and management. Patient admits worsening cough productive phlegm and bilateral worsening lower extremity swelling and wheezing. Denies any subjective fevers or chills. Denies any known sick contacts PFSH [facility] Disclaimer: The information contained in this section may have been updated after the patient was seen, as this information can be updated by other users. Medical History (Updated 12/23/24 @ 13:06 by Kris Pabon MD) Acute on chronic respiratory failure with hypoxia and hypercapnia Chronic, continuous use of opioids Overuse of medication Pneumonia Pre-operative cardiovascular examination Pacemaker lead malfunction Pacemaker at end of battery life Vulvar cyst Candidal intertrigo Bronchiectasis, non-tuberculous COPD (chronic obstructive pulmonary disease) Acute exacerbation of chronic obstructive pulmonary disease Stopped smoking with greater than 30 pack year history History of asthma Family history of asthma Allergic rhinitis, unspecified History of 2019 novel coronavirus disease (COVID-19) COPD (chronic obstructive pulmonary disease) Acute respiratory failure with hypoxia COPD exacerbation Encounter for screening for malignant neoplasm of lung in current smoker with 30 pack year history or greater Stopped smoking with greater than 30 pack year history History of asthma Family history of asthma Allergic rhinitis History of 2019 novel coronavirus disease (COVID-19) COPD exacerbation Hyperlipemia PAF (paroxysmal atrial fibrillation) COPD (chronic obstructive pulmonary disease) On statin therapy Diabetes (~06/2020) Cardiac pacemaker in situ Fatigue HHD (hypertensive heart disease) Surgical History History of tonsillectomy History of cholecystectomy Hx of tonsillectomy History of arthroplasty of right knee Hx of cholecystectomy Family History Other Cancer Coronary artery disease Diabetes Hyperlipidemia Hypertension Social History (Updated 12/23/24 @ 08:44 by Keke Hung RN) Smoking Status: Current every day smoker tobacco type: cigarettes packs per day: 1 smoking status stop date: 09/12/2022 second hand exposure: Yes alcohol intake: never substance use type: denies use current occupational status: disabled and other Travel in the last 8 weeks?: None household members: none housing: house marital status: number of children: 0 current occupational exposures/hazards: No caffeine: Yes Have you lived/traveled outside US in past 30 days?: No Contact w/someone who lives/traveled outside US past 30 days?: No Exposure to someone with infectious disease in past 14 days?: No Do you have a fever (greater than 100.4 F or 38 C)?: No Have you tested positive for COVID-19?: No Exposed to someone with COVID-19 in past 14 days?: No Do you have a sore throat?: No Do you have a cough?: No Do you have any weakness?: No Do you have any diarrhea?: No Are you experiencing any unusual bleeding?: No Do you have any muscle aches/pain?: No Do you have any abdominal pain?: No Are you experiencing loss of taste or smell?: No Review of Systems Constitutional Constitutional: Reports anorexia, Reports body ache(s) and Reports fatigue Eyes Eyes: Denies eye discharge, Denies dry eyes, Denies irritation and Denies itchy eyes ENT Ears, Nose, Mouth, and Throat: Denies epistaxis, Denies facial pain, Denies lip swelling and Denies throat swelling *Cardiovascular Cardiovascular: Reports dyspnea and Reports dyspnea on exertion *Respiratory Respiratory: Reports chest congestion, Reports cough, Reports dyspnea, Reports dyspnea on exertion, Reports excessive phlegm production and Reports wheezing *Gastrointestinal Gastrointestinal: Denies abdominal pain, Denies belching and Denies cramping *Musculoskeletal Musculoskeletal: Reports back pain, Reports myalgias and Reports other (No small joint swelling or Pain) Psychiatric Psychiatric: Denies homicidal ideation and Denies suicidal ideation Endocrine Endocrine: Reports fatigue and Denies heat intolerance Hematologic/Lymphatic Hematologic/Lymphatic: Denies easy bleeding and Denies lymphadenopathy Allergic/Immunologic Allergic/Immunologic: Denies itchy eyes, Denies lip swelling, Denies throat swelling and Reports wheezing Pulmonology Exam Inpatient Vital signs and Labs for Last 24 Hours: Temp Pulse Resp BP Pulse Ox O2 Del Method O2 Flow Rate 98.2 F 86 25 H 113/62 96 Nasal Cannula 4 12/23/24 08:00 12/23/24 08:00 12/23/24 08:00 12/23/24 08:00 12/23/24 08:00 12/23/24 09:00 12/23/24 09:00 Laboratory Results - last 24 hr 12/23/24 06:05: WBC 12.2 H, RBC 5.28, Hgb 14.1, Hct 47.1 H, MCV 89.2, MCH 26.7 L, MCHC 29.9 L, RDW 15.6, Plt Count 214, MPV 11.5 H, Neut % (Auto) 70.3, Lymph % (Auto) 16.9, [place] % (Auto) 7.4, Eos % (Auto) 3.2, Baso % (Auto) 1.0, Neut # (Auto) 8.6 H, Lymph # (Auto) 2.1, [place] # (Auto) 0.9, Eos # (Auto) 0.4, Baso # (Auto) 0.1, VBG pH 7.29 L, VBG pCO2 55.4 H, VBG pO2 48.4 H, VBG HCO3 26.0, VBG Total CO2 27.7 H, VBG O2 Saturation 82.4 H, VBG Base Excess -0.5, VBG Lactic Acid 1.9, Sodium 140, Potassium 4.6, Chloride 106, Carbon Dioxide 30, Anion Gap 8.6, BUN 20 H, Creatinine 0.70, Estimated Creat Clear 81, Estimated GFR 82, Est GFR ( Amer) 100, Glucose 218 H, Calcium 9.5, Total Bilirubin 0.4, AST 31, ALT 24, Alkaline Phosphatase 103, Troponin I < 0.01, NT-Pro-B Natriuret Pep 166 H, Total Protein 6.5, Albumin 4.0, Globulin 2.5, Albumin/Globulin Ratio 1.6 I & O for Labs for Last 24 Hours: Intake & Output 12/20/24 12/21/24 12/22/24 12/23/24 23:59 23:59 23:59 23:59 Output Total 0 / 0 Balance 0 / 0 Weight 222 lb 5 oz Meds Home Medications and Allergies Home Medications ?Medication ?Instructions ?Recorded ?Confirmed ?Type pen needle, diabetic 32 gauge x #100 01/28/24 11/26/24 Rx 1/4 (BD Ultra-Fine Micro Pen Needle) blood-glucose sensor (Dexcom G6 #1 01/30/24 11/26/24 Rx Sensor device) blood-glucose transmitter (Dexcom #1 ea 01/30/24 11/26/24 Rx G6 Transmitter device) blood-glucose,fraud analyst,cont #1 ea 01/30/24 11/26/24 Rx (Dexcom G6 Finished Cloth Examiner) montelukast 10 mg tablet 10 mg PO PM 04/17/24 12/23/24 History pantoprazole 40 mg tablet,delayed 40 mg PO DAILY 04/17/24 12/23/24 History release lancets 33 gauge (TRUEplus Lancets) #100 ea 05/07/24 11/26/24 Rx blood sugar diagnostic (Easy Touch #100 strips 06/04/24 11/26/24 Rx Test Strip) buspirone 10 mg tablet 10 mg PO BID 90 days #180 tabs 08/07/24 12/23/24 Rx fluoxetine 20 mg capsule 20 mg PO BID 90 days #180 caps 08/07/24 12/23/24 Rx ipratropium 0.5 mg-albuterol 3 mg 3 ml inhalation QID PRN shortness 08/28/24 12/23/24 Rx (2.5 mg base)/3 mL nebulization of breath or wheezing 90 days #270 soln mL cyclobenzaprine 10 mg tablet 10 mg PO TID PRN muscle spasm #60 09/09/24 12/23/24 Rx tabs spironolactone 25 mg tablet 25 mg PO DAILY #30 tabs 10/01/24 12/23/24 Rx (Aldactone) magnesium oxide 400 mg (241.3 mg 400 mg PO BID #60 tabs 11/04/24 12/23/24 Rx magnesium) tablet insulin glargine-yfgn 100 unit/mL 32 unit (0.32 mL) SQ BID 30 days 11/17/24 12/23/24 Rx (3 mL) subcutaneous pen (Semglee #19.2 mL (insulin glargine-yfgn) Pen) pregabalin 25 mg capsule 25 mg PO HS #14 caps 11/26/24 12/23/24 Rx fluticasone propionate 50 1 spray intranasal DAILY #16 grams 11/27/24 12/23/24 Rx mcg/actuation nasal spray,suspension nicotine (polacrilex) 4 mg gum 4 mg buccal Q2H #50 ea 12/11/24 12/23/24 Rx (Nicorette) albuterol sulfate 90 mcg/actuation 2 puff inhalation Q6 PRN soa 12/23/24 12/23/24 History aerosol inhaler atorvastatin 80 mg tablet 80 mg PO DAILY 12/23/24 12/23/24 History bisoprolol fumarate 10 mg tablet 10 mg PO BID 12/23/24 12/23/24 History budesonide 0.5 mg/2 mL suspension 0.5 mg inhalation TID 12/23/24 12/23/24 History for nebulization (Pulmicort) diltiazem HCl 240 mg 240 mg PO DAILY 12/23/24 12/23/24 History capsule,extended release 24 hr furosemide 40 mg tablet 40 mg PO BID 12/23/24 12/23/24 History lisinopril 2.5 mg tablet 2.5 mg PO DAILY 12/23/24 12/23/24 History metformin 500 mg tablet 1,000 mg PO BID 12/23/24 12/23/24 History rivaroxaban 20 mg tablet (Xarelto) 20 mg PO DAILY 12/23/24 12/23/24 History ropinirole 0.25 mg tablet 0.5 mg PO HS 12/23/24 12/23/24 History New Prescriptions to Start Prescriptions: Allergies Allergy/AdvReac Type Severity Reaction Status Date / Time verapamil Allergy Severe Rash Verified 11/25/24 13:42 Iodine and Iodide Containing Allergy Mild Rash Verified 11/25/24 13:42 Produc Penicillins (PENICILLINS) Allergy Unknown I-RASH Verified 11/25/24 13:42 Sulfa (Sulfonamide Allergy Unknown NA-NAUSEA/V Verified 11/25/24 13:42 Antibiotics) (SULFA OMITING (SULFONAMIDE ANTIBIOTICS)) Results Laboratory Findings 12/23/24 06:05 12/23/24 06:05 Abnormal lab findings: Abnormal Labs 12/23/24 06:05 WBC 12.2 H Hct 47.1 H MCH 26.7 L MCHC 29.9 L MPV 11.5 H Neut # (Auto) 8.6 H VBG pH 7.29 L VBG pCO2 55.4 H VBG pO2 48.4 H VBG Total CO2 27.7 H VBG O2 Saturation 82.4 H BUN 20 H Glucose 218 H NT-Pro-B Natriuret Pep 166 H Assessment and Plan *Assessment and plan (1) Acute exacerbation of chronic obstructive pulmonary disease: Status: Acute Category: Medical Code(s): J44.1 - Chronic obstructive pulmonary disease with (acute) exacerbation (2) Acute on chronic respiratory failure with hypoxia and hypercapnia: Status: Acute Category: Medical Code(s): J96.21 - Acute and chronic respiratory failure with hypoxia; J96.22 - Acute and chronic respiratory failure with hypercapnia Plan Ms. Stallings is a 69-year-old female greater than [id number] smoking history prior smoker COPD, bronchiectasis, prior history of recurrent pneumonia presented to the ER with worsening respiratory distress and pulmonary vascular further evaluation and management. Patient admits worsening cough productive phlegm and bilateral worsening lower extremity swelling and wheezing. Denies any subjective fevers or chills. Denies any known sick contacts Mild neutrophilic predominant leukocytosis. Afebrile. Hemodynamically stable. Blood gas upon admission venous, mild hypercarbic respiratory failure. Comprehensive respiratory viral PCR panel negative Chest x-ray no dense consolidative/airspace changes. Vascular congestion noted. On examination respiratory distress. Bilateral diffuse wheezing noted. Plan: Continue DuoNebs every 4 hours along with Pulmicort every 12 scheduled Azithromycin 500 mg on day 1 followed by 250 x 4 days Continue steroids, can be weaned to methylprednisolone 40 mg IV daily Lasix 40 mg IV once Continue oxygen supplementation to maintain O2 saturation below 90% and above, wean as tolerated. This morning needing 4 L nasal cannula oxygen
[2024-12-23 10:18] LABS: Troponin I < 0.01 ng/ml (0.00-0.034)
[2024-12-23] MEDS: IPRATROPIUM/ALBUTEROL 3 ML NEB IH ×4 (10:42→22:38)
[2024-12-23] MEDS: AZITHROMYCIN 250MG TABLET 500 MG PO (13:54)
[2024-12-23] MEDS: FUROSEMIDE 40MG/4ML VIAL 40 MG IV (13:54)
[2024-12-23] MEDS: TRAMADOL 50MG TABLET 50 MG PO ×2 (14:42→22:56)
[2024-12-23] MEDS: METFORMIN 500MG TABLET 1000 MG PO (17:05)
[2024-12-23] MEDS: RIVAROXABAN 10MG TABLET 20 MG PO (17:05)
[2024-12-23] MEDS: MONTELUKAST SODIUM 10MG TAB 10 MG PO (17:06)
[2024-12-23] MEDS: BUDESONIDE 0.5MG/2ML NEB 0.5 MG IH (18:10)
[2024-12-23] MEDS: ATORVASTATIN 40MG TABLET 80 MG PO (20:44)
[2024-12-23] MEDS: PREGABALIN 25MG CAPSULE 25 MG PO (20:44)
[2024-12-23] MEDS: BISOPROLOL 5MG TABLET 10 MG PO (20:44)
[2024-12-23] MEDS: FLUOXETINE 20MG CAPSULE 20 MG PO (20:44)
[2024-12-23] MEDS: BUSPIRONE HCL 10 MG TABLET PO (20:44)
[2024-12-23] MEDS: ROPINIROLE HCL 0.25 MG TABLET 0.5 MG PO (20:44)
[2024-12-23] MEDS: INSULIN GLARGINE 100 UNITS/ML 3ML FLEXPEN 32 UNIT SUBCUT (20:45)
[2024-12-23] MEDS: humaLOG 100 UNITS/ML 10ML VIAL (SSI) SUBCUT (21:07)
[2024-12-24] MEDS: IPRATROPIUM/ALBUTEROL 3 ML NEB IH ×3 (02:04→09:27)
[2024-12-24 02:05] VITALS: PULSE 76; PULSE 78
[2024-12-24] MEDS: guaiFENesin 600 MG TAB.ER.12H PO ×2 (02:59→08:15)
[2024-12-24 03:24] LABS: POC Glucose,Bedside 327 (70-110)
[2024-12-24 04:00] VITALS: BP 120/63; PULSE 77; RESP 14; TEMP 36.6; O2SAT 96; BMI 33.0
[2024-12-24] MEDS: BUDESONIDE 0.5MG/2ML NEB 0.5 MG IH (05:49)
[2024-12-24 05:50] VITALS: PULSE 70; PULSE 73; O2SAT 95
[2024-12-24] MEDS: humaLOG 100 UNITS/ML 10ML VIAL (SSI) SUBCUT ×2 (06:00→10:41)
[2024-12-24 06:42] LABS: Basophils % 0.1 % (0.1-2.0); Hemoglobin 12.3 g/dL (12.2-16.2); Immature Granulocytes # 0.19 10^3uL; Immature Granulocytes % 1.3 %; Lymphocytes # 0.9 K/mm3 (0.7-4.5); Lymphocytes % 6.3 % (10-50); Mean Corpuscular HGB Conc 30.8 g/dL (31.8-35.4); Mean Corpuscular Hemoglobin 26.6 pg (27.0-31.2); Mean Corpuscular Volume 86.4 fl (81-99); Mean Platelet Volume 11.9 fl (7.4-10.4); Monocytes # 0.4 K/mm3 (0.1-1.0); Monocytes % 2.9 % (1.7-9.3); Neutrophils # 13.3 K/mm3 (1.8-7.8); Neutrophils % 89.4 % (37.0-80.0); Nucleated Red Blood Cells # 0 10^3/uL; Nucleated Red Blood Cells % 0 %; Platelet Count 181 K/mm3 (142-424); Red Blood Count 4.63 M/mm3 (4.20-5.40); Red Cell Distribution Width 15.4 % (11.5-17.5); Red Cell Distribution Width-SD 48.7 fL; White Blood Count 14.8 K/mm3 (4.8-10.8)
--- NOTE | 2024-12-24 06:45 | PC.NURSE ---
v/s, ox4. Pt on 4LNC satting in 90's. Blood glucose monitored. Pt c/o of a cough, see MAR for orders. No acute events to report. Plan of care ongoing.
[2024-12-24 07:27] LABS: Alanine Aminotransferase 22 U/L (12-78); Albumin Level 3.6 g/dl (3.5-5.0); Albumin/Globulin Ratio 1.7 (1.1-1.8); Alkaline Phosphatase 80 U/L (38-126); Aspartate Amino Transferase 22 U/L (14-36); Bilirubin,Total 0.2 mg/dl (0.2-1.3); Blood Urea Nitrogen 26 mg/dl (7-17); Calcium 9.2 mg/dl (8.4-10.2); Carbon Dioxide 28 mmol/L (22.0-30.0); Chloride 104 mmol/L (98-107); Creatinine Clearance Estimated 82 mL/min (50-200); Estimated Glomerular Filt Rate 62 ml/min (>60); GFR (African American) 75 ML/MIN (>60); Globulin 2.1 g/dL (1.3-3.2); Glucose 250 mg/dl (74-100); Magnesium 1.7 mg/dl (1.6-2.3); Sodium 137 mmol/L (136-145); Total Protein,Serum 5.7 g/dl (6.3-8.2)
[2024-12-24 08:00] VITALS: BP 121/52; BP 121/61; PULSE 70; PULSE 71; RESP 17; TEMP 37.1; O2SAT 94
--- NOTE | 2024-12-24 08:02 | EXP.DC.SUM ---
General Admission date:: 12/23/24 Discharge date: 12/24/24 HPI HPI HPI: 69-year-old female on chronic oxygen of 4 L. Has history of diabetes, hypertension, depression, COPD. Still smokes intermittently. Presented to the ER with worsening shortness of breath. Symptoms have worsened over the past week. Denies any significant increase in cough. On presentation to the ER, was on baseline oxygen of 4 L but had poor air movement. Did not respond well to steroids or nebulizers. Chest imaging showed no consolidation or pneumonia. Given her persistent dyspnea however increased work of breathing, medicine was consulted for admission and observation overnight for COPD exacerbation. On arrival to the floor, patient feels quite fatigued. Complaining of some upper back pain from coughing so much. Is on 4 L oxygen. Alert and oriented x 3. Denies fever, nausea, vomiting, diarrhea. Hospital Course Hospital Course Hospital Course: Ms. Stallings is a 69-year-old female with history of COPD, diabetes, hypertension, obesity. Presented with worsening shortness of breath over the past week. Concern for COPD exacerbation. Discussed case with ER physician, request admission for poor response to steroids and nebulizers in the ED and continued distress. I agreed to admit for further care. Pulmonology consulted to assist with management. Did well. Remained on baseline oxygen. Stable to discharge home to complete treatment. Problems addressed as follows: COPD with exacerbation Chronic hypoxemic respiratory failure -Per my review of chest x-ray, has no airspace disease or dense consolidation. Pulmonology consulted. Recommended DuoNebs every 4 hours initially with Pulmicort twice daily. Patient received azithromycin in the ER with 500 mg once. Will continue 5-day course with 250 mg for 4 more days. Steroids weaned to prednisone for 40 mg daily to complete 5 days total. Patient remained on her baseline oxygen of 4 L throughout admission. Improvement in wheezing and air movement. Patient's distress stabilized. Continue Singulair 10 mg nightly. Follow with pulmonology as an outpatient. Did have bump in white count to 14 by day of discharge. Suspect steroid effect. Patient remained afebrile. Diabetes: A1c 8.0 during admission. Treated with sliding scale insulin and fingersticks ACHS. Continue home glargine twice daily, increase to 35 units. Continue metformin at 1000 mg twice daily. Needs repeat A1c in 3 months to monitor for improvement. Goal A1c less than 8 given age and comorbidities and most recent ADA recommendations. Hypertension A-fib: - Continue bisoprolol 10 mg twice daily, diltiazem 240 mg daily, lisinopril 2.5 mg daily, spironolactone 25 mg daily, and Lasix 40 mg twice daily; continue Xarelto 20 mg daily Depression: Continue fluoxetine 20 mg twice daily COPD: Continue singular 10 mg nightly GERD: Continue pantoprazole 40 mg daily Neuropathy: Continue Lyrica 25 mg nightly Total time spent on discharge 32 minutes in counseling, documentation, chart review, and direct care with patient. Exam Data for Last 24 hours Vital signs and Labs for Last 24 Hours: Temp Pulse Resp BP Pulse Ox O2 Del Method O2 Flow Rate 97.8 F 70 14 120/63 95 Nasal Cannula 4 12/24/24 04:00 12/24/24 05:50 12/24/24 04:00 12/24/24 04:00 12/24/24 05:50 12/24/24 06:43 12/24/24 06:43 Laboratory Results - last 24 hr 12/23/24 07:55: Chlamy pneumoniae PCR Not detected, Adenovirus (PCR) Not detected, B. pertussis DNA (PCR) Not detected, Coronavirus OC43 (PCR) Not detected, Coronavirus HKU1 (PCR) Not detected, Coronavirus 229E (PCR) Not detected, SARS-CoV-2 (PCR) Not detected, Coronavirus NL63 (PCR) Not detected, Human Metapneumovir PCR Not detected, Influenza A (H1) PCR Not detected, Influ A (H1N1/09) PCR Not detected, Influenza A (H3) PCR Not detected, Influenza Type A (PCR) Not detected, Influenza Type B (PCR) Not detected, M. pneumoniae (PCR) Not detected, Parainfluenza 1 (PCR) Not detected, Parainfluenza 2 (PCR) Not detected, Parainfluenza 3 (PCR) Not detected, Parainfluenza 4 (PCR) Not detected, RSV (PCR) Not detected, Entero/Rhino (PCR) Not detected 12/23/24 09:30: Troponin I < 0.01 12/23/24 20:55: POC Glucose 327 H* 12/24/24 06:10: WBC 14.8 H, RBC 4.63, Hgb 12.3, Hct 40.0, MCV 86.4, MCH 26.6 L, MCHC 30.8 L, RDW 15.4, Plt Count 181, MPV 11.9 H, Neut % (Auto) 89.4 H, Lymph % (Auto) 6.3 L, [place] % (Auto) 2.9, Eos % (Auto) 0.0 L, Baso % (Auto) 0.1, Neut # (Auto) 13.3 H, Lymph # (Auto) 0.9, [place] # (Auto) 0.4, Eos # (Auto) 0.0, Baso # (Auto) 0.0, Sodium 137, Potassium 4.0, Chloride 104, Carbon Dioxide 28, Anion Gap 9.0, BUN 26 H D, Creatinine 0.90 D, Estimated Creat Clear 82, Estimated GFR 62, Est GFR ( Amer) 75 D, Glucose 250 H, Calcium 9.2, Magnesium 1.7, Total Bilirubin 0.2, AST 22 D, ALT 22, Alkaline Phosphatase 80, Total Protein 5.7 L, Albumin 3.6, Globulin 2.1, Albumin/Globulin Ratio 1.7 I & O for Last 24 hours: Intake & Output 12/21/24 12/22/24 12/23/24 12/24/24 23:59 23:59 23:59 23:59 Intake Total 1619 / 360 Output Total 0 / 0 0 / 0 Balance 1619 / 360 Weight 100.839 kg 101.106 kg Constitutional Constitutional: no acute distress (but easily short of breath ), obese, chronically ill appearing and cooperative *Routine HEENT Exam Head: Present normocephalic and atraumatic Eye: Present EOMI and PERRL ENT: Present mucous membranes moist and oropharynx clear *Routine Neck Exam Neck: Present supple and full ROM *Routine Respiratory Exam Respiratory: Present prolonged expiratory phase, wheezes (significantly improved, appreciated posteriorly), diminished air movement, normal respiratory effort (Slight increased work of breathing) and able to speak in complete sentences; Absent accessory muscle use, CTA bilaterally, respiratory distress or crackles *Routine Cardiovascular Exam Cardiovascular: Present RRR, Normal S1 and Normal S2; Absent murmur *Routine Abdominal Exam Abdominal: Present soft and normoactive bowel sounds; Absent tenderness, distended, rebound or guarding *Routine Rectal Exam Patient deferred: visual exam *Routine Exam Patient deferred: external exam *Routine Extremities Exam Extremities: Present full ROM, pulses intact and normal capillary refill; Absent edema or tenderness *Routine Skin Exam Skin: Present intact; Absent erythema *Routine Neurological Exam Neurological: Present alert, oriented X3, CN II-XII intact, moving all extremities, normal tone and normal speech; Absent sensory deficit, motor deficit or altered mental status Routine Psychiatric Exam Psychiatric: Present normal affect, normal thought process, cooperative and depressed; Absent anxious Results Data Completed and Pending Labs on day of discharge: Labs from last 24 hours 12/24/24 12/23/24 12/23/24 06:10 20:55 09:30 WBC 14.8 H RBC 4.63 Hgb 12.3 Hct 40.0 MCV 86.4 MCH 26.6 L MCHC 30.8 L RDW 15.4 Plt Count 181 MPV 11.9 H Neut % (Auto) 89.4 H Lymph % (Auto) 6.3 L [place] % (Auto) 2.9 Eos % (Auto) 0.0 L Baso % (Auto) 0.1 Neut # (Auto) 13.3 H Lymph # (Auto) 0.9 [place] # (Auto) 0.4 Eos # (Auto) 0.0 Baso # (Auto) 0.0 Sodium 137 Potassium 4.0 Chloride 104 Carbon Dioxide 28 Anion Gap 9.0 BUN 26 H D Creatinine 0.90 D Estimated Creat Clear 82 Estimated GFR 62 Est GFR ( Amer) 75 D Glucose 250 H POC Glucose 327 H* Calcium 9.2 Magnesium 1.7 Total Bilirubin 0.2 AST 22 D ALT 22 Alkaline Phosphatase 80 Troponin I < 0.01 Total Protein 5.7 L Albumin 3.6 Globulin 2.1 Albumin/Globulin Ratio 1.7 Chlamy pneumoniae PCR Adenovirus (PCR) B. pertussis DNA (PCR) Coronavirus OC43 (PCR) Coronavirus HKU1 (PCR) Coronavirus 229E (PCR) SARS-CoV-2 (PCR) Coronavirus NL63 (PCR) Human Metapneumovir PCR Influenza A (H1) PCR Influ A (H1N1/09) PCR Influenza A (H3) PCR Influenza Type A (PCR) Influenza Type B (PCR) M. pneumoniae (PCR) Parainfluenza 1 (PCR) Parainfluenza 2 (PCR) Parainfluenza 3 (PCR) Parainfluenza 4 (PCR) RSV (PCR) Entero/Rhino (PCR) 12/23/24 07:55 WBC RBC Hgb Hct MCV MCH MCHC RDW Plt Count MPV Neut % (Auto) Lymph % (Auto) [place] % (Auto) Eos % (Auto) Baso % (Auto) Neut # (Auto) Lymph # (Auto) [place] # (Auto) Eos # (Auto) Baso # (Auto) Sodium Potassium Chloride Carbon Dioxide Anion Gap BUN Creatinine Estimated Creat Clear Estimated GFR Est GFR ( Amer) Glucose POC Glucose Calcium Magnesium Total Bilirubin AST ALT Alkaline Phosphatase Troponin I Total Protein Albumin Globulin Albumin/Globulin Ratio Chlamy pneumoniae PCR Not detected Adenovirus (PCR) Not detected B. pertussis DNA (PCR) Not detected Coronavirus OC43 (PCR) Not detected Coronavirus HKU1 (PCR) Not detected Coronavirus 229E (PCR) Not detected SARS-CoV-2 (PCR) Not detected Coronavirus NL63 (PCR) Not detected Human Metapneumovir PCR Not detected Influenza A (H1) PCR Not detected Influ A (H1N1/09) PCR Not detected Influenza A (H3) PCR Not detected Influenza Type A (PCR) Not detected Influenza Type B (PCR) Not detected M. pneumoniae (PCR) Not detected Parainfluenza 1 (PCR) Not detected Parainfluenza 2 (PCR) Not detected Parainfluenza 3 (PCR) Not detected Parainfluenza 4 (PCR) Not detected RSV (PCR) Not detected Entero/Rhino (PCR) Not detected DS: Diagnosis Discharge Diagnosis (1) Acute on chronic respiratory failure with hypoxia and hypercapnia: Status: Acute Code(s): J96.21 - Acute and chronic respiratory failure with hypoxia; J96.22 - Acute and chronic respiratory failure with hypercapnia (2) Acute exacerbation of chronic obstructive pulmonary disease: Status: Acute Code(s): J44.1 - Chronic obstructive pulmonary disease with (acute) exacerbation (3) Diabetes mellitus: Status: Acute Code(s): E11.9 - Type 2 diabetes mellitus without complications (4) PAF (paroxysmal atrial fibrillation): Status: Acute Code(s): I48.0 - Paroxysmal atrial fibrillation (5) Generalized anxiety disorder: Status: Acute Code(s): F41.1 - Generalized anxiety disorder (6) Class 1 obesity: Status: Chronic Code(s): E66.811 - Obesity, class 1 (7) Tobacco abuse: Status: Chronic Code(s): Z72.0 - Tobacco use Meds Home Medications and Allergies Home Medications ?Medication ?Instructions ?Recorded ?Confirmed ?Type montelukast 10 mg tablet 10 mg PO PM 04/17/24 12/23/24 History pantoprazole 40 mg tablet,delayed 40 mg PO DAILY 04/17/24 12/23/24 History release buspirone 10 mg tablet 10 mg PO BID 90 days #180 tabs 08/07/24 12/23/24 Rx fluoxetine 20 mg capsule 20 mg PO BID 90 days #180 caps 08/07/24 12/23/24 Rx ipratropium 0.5 mg-albuterol 3 mg 3 ml inhalation QID PRN shortness 08/28/24 12/23/24 Rx (2.5 mg base)/3 mL nebulization of breath or wheezing 90 days #270 soln mL spironolactone 25 mg tablet 25 mg PO DAILY #30 tabs 10/01/24 12/23/24 Rx (Aldactone) magnesium oxide 400 mg (241.3 mg 400 mg PO BID #60 tabs 11/04/24 12/23/24 Rx magnesium) tablet pregabalin 25 mg capsule 25 mg PO HS #14 caps 11/26/24 12/23/24 Rx fluticasone propionate 50 1 spray intranasal DAILY #16 grams 11/27/24 12/23/24 Rx mcg/actuation nasal spray,suspension nicotine (polacrilex) 4 mg gum 4 mg buccal Q2H #50 ea 12/11/24 12/23/24 Rx (Nicorette) albuterol sulfate 90 mcg/actuation 2 puff inhalation Q6 PRN shortness 12/23/24 12/23/24 History aerosol inhaler of air atorvastatin 80 mg tablet 80 mg PO DAILY 12/23/24 12/23/24 History bisoprolol fumarate 10 mg tablet 10 mg PO BID 12/23/24 12/23/24 History budesonide 0.5 mg/2 mL suspension 0.5 mg inhalation TID 12/23/24 12/23/24 History for nebulization (Pulmicort) diltiazem HCl 240 mg 240 mg PO DAILY 12/23/24 12/23/24 History capsule,extended release 24 hr furosemide 40 mg tablet 40 mg PO BID 12/23/24 12/23/24 History lisinopril 2.5 mg tablet 2.5 mg PO DAILY 12/23/24 12/23/24 History metformin 500 mg tablet 1,000 mg PO BID 12/23/24 12/23/24 History rivaroxaban 20 mg tablet (Xarelto) 20 mg PO QPMWITHMEAL 12/23/24 12/23/24 History ropinirole 0.25 mg tablet 0.5 mg PO HS 12/23/24 12/23/24 History azithromycin 250 mg tablet 250 mg PO DAILY 3 days #3 tabs 12/24/24 Rx insulin glargine 100 unit/mL (3 35 unit (0.35 mL) SQ BID 30 days 12/24/24 12/23/24 Rx mL) subcutaneous pen (Basaglar #0 mL KwikPen U-100 Insulin) prednisone 20 mg tablet 40 mg (2 x 20 mg) PO DAILY 3 days 12/24/24 Rx #6 tabs tramadol 50 mg tablet 50 mg PO Q6HP PRN Moderate To 12/24/24 Rx Severe Pain (4-10) 3 days #11 tabs New Prescriptions to Start Prescriptions: Carlos Sotelo prednisone Carlos Beatty tramadol Carlos Beatty Allergies Allergy/AdvReac Type Severity Reaction Status Date / Time verapamil Allergy Severe Rash Verified 11/25/24 13:42 Iodine and Iodide Containing Allergy Mild Rash Verified 11/25/24 13:42 Produc Penicillins (PENICILLINS) Allergy Unknown I-RASH Verified 11/25/24 13:42 Sulfa (Sulfonamide Allergy Unknown NA-NAUSEA/V Verified 11/25/24 13:42 Antibiotics) (SULFA OMITING (SULFONAMIDE ANTIBIOTICS)) Discharge Plan Disposition Patient Disposition: Home Health Service Condition: Fair Discharge Order Discharge Orders: Discharge Order (Routine); Ordered 12/24/24 Ordered By: Carlos Beatty Follow up Plan Follow up with: Kris Pabon MD [Physician, Pulmonology] - 01/09/25 11:00 am Prescriptions/Medication Reconciliation: New azithromycin 250 mg Tablet 250 mg PO DAILY 3 Days Qty: 3 0RF prednisone 20 mg Tablet 40 mg PO DAILY 3 Days Qty: 6 0RF tramadol 50 mg Tablet 50 mg PO Q6HP PRN (Reason: Moderate To Severe Pain (4-10)) 3 Days Qty: 11 0RF Continued ipratropium-albuterol 0.5 mg-3 mg(2.5 mg base)/3 mL solution for nebulization 3 ml inhalation QID PRN (Reason: shortness of breath or wheezing) 90 Days Qty: 270 2RF spironolactone [Aldactone] 25 mg tablet 25 mg PO DAILY Qty: 30 2RF fluoxetine 20 mg capsule 20 mg PO BID 90 Days Qty: 180 3RF buspirone 10 mg tablet 10 mg PO BID 90 Days Qty: 180 3RF magnesium oxide 400 mg (241.3 mg magnesium) tablet 400 mg PO BID Qty: 60 1RF fluticasone propionate 50 mcg/actuation spray,suspension 1 spray intranasal DAILY Qty: 16 0RF nicotine (polacrilex) [Nicorette] 4 mg gum 4 mg buccal Q2H Qty: 50 1RF furosemide 40 mg tablet 40 mg PO BID atorvastatin 80 mg tablet 80 mg PO DAILY bisoprolol fumarate 10 mg tablet 10 mg PO BID budesonide [Pulmicort] 0.5 mg/2 mL suspension for nebulization 0.5 mg inhalation TID metformin 500 mg tablet 1,000 mg PO BID diltiazem HCl 240 mg capsule,extended release 24hr 240 mg PO DAILY ropinirole 0.25 mg tablet 0.5 mg PO HS albuterol sulfate 90 mcg/actuation HFA aerosol inhaler 2 puff inhalation Q6 PRN (Reason: shortness of air) lisinopril 2.5 mg tablet 2.5 mg PO DAILY Xarelto 20 mg tablet 20 mg PO QPMWITHMEAL Rx Instructions: TAKE ONE TABLET BY MOUTH EVERY DAY with evening meal pantoprazole 40 mg tablet,delayed release (DR/EC) 40 mg PO DAILY montelukast 10 mg tablet 10 mg PO PM pregabalin 25 mg capsule 25 mg PO HS Qty: 14 0RF Changed insulin glargine [Basaglar KwikPen U-100 Insulin] 100 unit/mL (3 mL) insulin pen 35 unit SQ BID 30 Days Qty: 0 0RF Patient Comments: inject 32 units SUBCUTANEOUSLY TWICE DAILY FOR diabetes Problem Reconciliation Problems Reviewed?: Yes Patient Discharge Instructions ACTIVITY: Continue current activity DIET: continue same diet Patient Instructions: Chronic Obstructive Pulmonary Disease (Alternative Therapy), Chronic Obstructive Pulmonary Disease, COPD: When to Call for Help, Physical Activity for People with COPD, Stop Light COPD Print Language: [place] Providers Primary Care Provider: Provider,Referral Admit Provider: Carlos Beatty Attending Provider: Carlos Beatty
[2024-12-24] MEDS: predniSONE 20MG TAB 40 MG PO (08:15)
[2024-12-24] MEDS: METFORMIN 500MG TABLET 1000 MG PO (08:15)
[2024-12-24] MEDS: PANTOPRAZOLE 40MG TABLET 40 MG PO (08:15)
[2024-12-24] MEDS: dilTIAZem ER 240MG CAPSULE 240 MG PO (08:15)
[2024-12-24] MEDS: FLUOXETINE 20MG CAPSULE 20 MG PO (08:15)
[2024-12-24] MEDS: SPIRONOLACTONE 25MG TABLET 25 MG PO (08:15)
[2024-12-24] MEDS: LISINOPRIL 2.5MG TABLET 2.5 MG PO (08:15)
[2024-12-24] MEDS: AZITHROMYCIN 250MG TABLET 250 MG PO (08:15)
[2024-12-24] MEDS: BISOPROLOL 5MG TABLET 10 MG PO (08:15)
[2024-12-24] MEDS: FUROSEMIDE 40 MG TABLET PO (08:15)
[2024-12-24] MEDS: BUSPIRONE HCL 10 MG TABLET PO (08:15)
[2024-12-24] MEDS: TRAMADOL 50MG TABLET 50 MG PO (08:24)
[2024-12-24 09:28] VITALS: PULSE 78; PULSE 81; O2SAT 96
--- NOTE | 2024-12-24 09:39 | EXP.PULM.PN ---
Subjective *Date: 12/24/24 *Time: 12:16 Interval history: No acute respiratory events overnight. Patient admits improving respiratory symptoms. Pulmonology Exam Inpatient Vital signs and Labs for Last 24 Hours: Temp Pulse Resp BP Pulse Ox O2 Del Method O2 Flow Rate 98.8 F 78 17 121/61 96 Nasal Cannula 3.5 12/24/24 08:00 12/24/24 09:28 12/24/24 08:00 12/24/24 08:00 12/24/24 09:28 12/24/24 09:28 12/24/24 09:28 Laboratory Results - last 24 hr 12/23/24 07:55: Chlamy pneumoniae PCR Not detected, Adenovirus (PCR) Not detected, B. pertussis DNA (PCR) Not detected, Coronavirus OC43 (PCR) Not detected, Coronavirus HKU1 (PCR) Not detected, Coronavirus 229E (PCR) Not detected, SARS-CoV-2 (PCR) Not detected, Coronavirus NL63 (PCR) Not detected, Human Metapneumovir PCR Not detected, Influenza A (H1) PCR Not detected, Influ A (H1N1/09) PCR Not detected, Influenza A (H3) PCR Not detected, Influenza Type A (PCR) Not detected, Influenza Type B (PCR) Not detected, M. pneumoniae (PCR) Not detected, Parainfluenza 1 (PCR) Not detected, Parainfluenza 2 (PCR) Not detected, Parainfluenza 3 (PCR) Not detected, Parainfluenza 4 (PCR) Not detected, RSV (PCR) Not detected, Entero/Rhino (PCR) Not detected 12/23/24 09:30: Troponin I < 0.01 12/23/24 20:55: POC Glucose 327 H* 12/24/24 06:10: WBC 14.8 H, RBC 4.63, Hgb 12.3, Hct 40.0, MCV 86.4, MCH 26.6 L, MCHC 30.8 L, RDW 15.4, Plt Count 181, MPV 11.9 H, Neut % (Auto) 89.4 H, Lymph % (Auto) 6.3 L, [place] % (Auto) 2.9, Eos % (Auto) 0.0 L, Baso % (Auto) 0.1, Neut # (Auto) 13.3 H, Lymph # (Auto) 0.9, [place] # (Auto) 0.4, Eos # (Auto) 0.0, Baso # (Auto) 0.0, Sodium 137, Potassium 4.0, Chloride 104, Carbon Dioxide 28, Anion Gap 9.0, BUN 26 H D, Creatinine 0.90 D, Estimated Creat Clear 82, Estimated GFR 62, Est GFR ([facility] Amer) 75 D, Glucose 250 H, Calcium 9.2, Magnesium 1.7, Total Bilirubin 0.2, AST 22 D, ALT 22, Alkaline Phosphatase 80, Total Protein 5.7 L, Albumin 3.6, Globulin 2.1, Albumin/Globulin Ratio 1.7 Temp Pulse Resp BP Pulse Ox O2 Del Method O2 Flow Rate 98.2 F 86 25 H 113/62 96 Nasal Cannula 4 12/23/24 08:00 12/23/24 08:00 12/23/24 08:00 12/23/24 08:00 12/23/24 08:00 12/23/24 09:00 12/23/24 09:00 Laboratory Results - last 24 hr 12/23/24 06:05: WBC 12.2 H, RBC 5.28, Hgb 14.1, Hct 47.1 H, MCV 89.2, MCH 26.7 L, MCHC 29.9 L, RDW 15.6, Plt Count 214, MPV 11.5 H, Neut % (Auto) 70.3, Lymph % (Auto) 16.9, [place] % (Auto) 7.4, Eos % (Auto) 3.2, Baso % (Auto) 1.0, Neut # (Auto) 8.6 H, Lymph # (Auto) 2.1, [place] # (Auto) 0.9, Eos # (Auto) 0.4, Baso # (Auto) 0.1, VBG pH 7.29 L, VBG pCO2 55.4 H, VBG pO2 48.4 H, VBG HCO3 26.0, VBG Total CO2 27.7 H, VBG O2 Saturation 82.4 H, VBG Base Excess -0.5, VBG Lactic Acid 1.9, Sodium 140, Potassium 4.6, Chloride 106, Carbon Dioxide 30, Anion Gap 8.6, BUN 20 H, Creatinine 0.70, Estimated Creat Clear 81, Estimated GFR 82, Est GFR ( Amer) 100, Glucose 218 H, Calcium 9.5, Total Bilirubin 0.4, AST 31, ALT 24, Alkaline Phosphatase 103, Troponin I < 0.01, NT-Pro-B Natriuret Pep 166 H, Total Protein 6.5, Albumin 4.0, Globulin 2.5, Albumin/Globulin Ratio 1.6 I & O for Labs for Last 24 Hours: Intake & Output 12/21/24 12/22/24 12/23/24 12/24/24 23:59 23:59 23:59 23:59 Intake Total 1619 1140 / 1140 Output Total 0 / 0 0 / 0 Balance 1619 1140 / 1140 Weight 222 lb 5 oz 222 lb 14.4 oz Intake & Output 12/20/24 12/21/24 12/22/24 12/23/24 23:59 23:59 23:59 23:59 Output Total 0 / 0 Balance 0 / 0 Weight 222 lb 5 oz Constitutional: Present mild distress Head: Present normocephalic and atraumatic ENT: Present normal exam, normal oropharynx and mucous membranes moist Neck: Present normal inspection and full ROM Respiratory: Present respiratory distress, wheezes, crackles and able to speak in complete sentences; Absent diminished air movement Cardiac: Present S1/S2, Tachycardia and radial pulses present GI: Present soft and distention; Absent tenderness or guarding Rectal (female): Present deferred (female): Present deferred Skin: Present intact; Absent cyanosis or jaundice Neuro: Present alert, awake and oriented x 3 Extremities: Present normal inspection; Absent clubbing or cyanosis Psychiatric: Present normal affect and cooperative Assessment and Plan *Assessment and plan (1) Acute exacerbation of chronic obstructive pulmonary disease: Status: Acute Category: Medical Code(s): J44.1 - Chronic obstructive pulmonary disease with (acute) exacerbation (2) Acute on chronic respiratory failure with hypoxia and hypercapnia: Status: Acute Category: Medical Code(s): J96.21 - Acute and chronic respiratory failure with hypoxia; J96.22 - Acute and chronic respiratory failure with hypercapnia Plan Ms. Stallings is a 69-year-old female greater than [id number] smoking history prior smoker COPD, bronchiectasis, prior history of recurrent pneumonia presented to the ER with worsening respiratory distress and pulmonary vascular further evaluation and management. Patient admits worsening cough productive phlegm and bilateral worsening lower extremity swelling and wheezing. Denies any subjective fevers or chills. Denies any known sick contacts Mild neutrophilic predominant leukocytosis. Afebrile. Hemodynamically stable. Blood gas upon admission venous, mild hypercarbic respiratory failure. Comprehensive respiratory viral PCR panel negative Chest x-ray no dense consolidative/airspace changes. Vascular congestion noted. On examination respiratory distress. Bilateral diffuse wheezing noted. Interval update: No acute respiratory vents overnight. Slight worsening leukocytosis. Improving oxygen requirements, or 4 L saturating 95% and above, wean astolerated. At baseline using 1-2L NC O2 at rest on 2-3L with exertion Significant improvement in the noted wheezing. Plan: Continue DuoNebs every 4 hours along with Pulmicort every 12 scheduled Azithromycin 500 mg on day 1 followed by 250 x 4 days Wean steroids to prednisone 40 mg daily to complete a total of 5-day Continue oxygen supplementation to maintain O2 saturation below 90% and above, wean as tolerated. # Thank you for involving pulmonary in this patient care. Will follow the patient in 2 weeks postdischarge
[2024-12-24] MEDS: INSULIN GLARGINE 100 UNITS/ML 3ML FLEXPEN 32 UNIT SUBCUT (10:37)
--- NOTE | 2024-12-24 11:03 | PC.NURSE ---
pt able to ambulate independently safely in the room. able to independently complete all ADLS. No need for PT/OT consult at this time
[2024-12-24 11:18] LABS: POC Glucose,Bedside 336 (70-110)
--- NOTE | 2024-12-24 12:27 | SW/DCPLANNER ---
Addendum entered by Nathaly Ya 12/24/24 12:51: [facility] is able to accept patient. Guillermo Flores Original Note: Spoke with patient once she is medically stable and ready for discharge if she would be interested in home health services. Patient stated that she believes she could benefit from Home Health. Patient stated that she has no preference of what agency i send her information to. I faxed patient's information to [facility] and will update once i hear back from them if they can take patient or not. Guillermo Flores
--- NOTE | 2024-12-25 10:19 | SW/DCPLANNER ---
Spoke with patient on the phone. Patient stated that she is doing good. Patient stated that she is aware of her upcoming appointment. Patient stated that she was able to get her new medicine picked up from [facility]. Patient stated that she has no concerns or questions at this time. Guillermo Flores
[2024-12-26 16:42] LABS: POC Glucose,Bedside 267 (70-110)
== END 2024-12-24 13:35 | disposition home health service (06) ==
LOC: ER 07:29 → 2ND 07:55
PROVIDERS: Emergency Medicine; Admitting Provider Internal Medicine Adolescent Medicine; Emergency Provider Emergency Medicine; Visit Provider Internal Medicine Adolescent Medicine
DX: J44.1 Chronic obstructive pulmonary disease with (acute) exacerbation (principal); J96.21 Acute and chronic respiratory failure with hypoxia; J96.22 Acute and chronic respiratory failure with hypercapnia; Z99.81 Dependence on supplemental oxygen; E11.40 Type 2 diabetes mellitus with diabetic neuropathy, unspecified; Z79.4 Long term (current) use of insulin; I48.0 Paroxysmal atrial fibrillation; F41.1 Generalized anxiety disorder; E66.811 Obesity, class 1; Z68.33 Body mass index [BMI] 33.0-33.9, adult; F32.A Depression, unspecified; I10 Essential (primary) hypertension; K21.9 Gastro-esophageal reflux disease without esophagitis; F17.210 Nicotine dependence, cigarettes, uncomplicated; Z95.0 Presence of cardiac pacemaker; Z79.01 Long term (current) use of anticoagulants; Z79.899 Other long term (current) drug therapy; Z91.041 Radiographic dye allergy status; Z88.2 Allergy status to sulfonamides; Z88.0 Allergy status to penicillin; Z88.8 Allergy status to other drugs, medicaments and biological substances; Z87.01 Personal history of pneumonia (recurrent); Z79.51 Long term (current) use of inhaled steroids
CPT/HCPCS: 96374; 96375; 0223U; 36415; 71045; 80053; 82803; 82962; 83036; 83735; 83880; 84484; 85025; 87633; 93005; 94640; 94760; 94761; 99291; G0378; J1938; J2919; J3475

== ENCOUNTER 2025-01-05 13:28 | Emergency (ER) | payer MEDICARE, MEDICAID, SELFPAY ==
[2025-01-05] VITALS (7 sets, daily range): BP systolic 112–127; BP diastolic 41–81; PULSE 70–93; RESP 20–24; TEMP 36.7–37.1; O2SAT 93–97; BMI 32.5
--- NOTE | 2025-01-05 13:27 | ECG_ITS ---
APPROVED REPORT Exam: Resting ECG HR:75 bpm ECG Measurements Heart Rate 75 AXES IL 148 P 81 QRSd 73 QRS 59 QT 375 T 76 QTc 404 Conclusion SINUS RHYTHM MINIMAL ST DEPRESSION [0.025+ mV ST DEPRESSION] Electronically signed by : SHERIE BERNAL, 01/06/2025 13:07:43
--- NOTE | 2025-01-05 13:33 | XR_ITS ---
FINAL REPORT TECHNIQUE: Chest PA & Lateral CLINICAL HISTORY: shortness of breath COMPARISON: 12/23/2024 FINDINGS: 2 views of the chest were performed. The heart size is normal. Left-sided pacer is present. Surgical clips are noted in the anterior thorax. The mediastinum is within normal limits. There is no acute cardiopulmonary process. There are mild chronic changes in both lungs. There are no pleural effusions. There is no pneumothorax. The bony thorax appears intact. IMPRESSION: No acute cardiopulmonary process. Reviewed, Interpreted and Dictated by Williams Travis MD Transcribed by Sydni Cervantes Authenticated and . [facility]
[2025-01-05 13:43] LABS: Adenovirus,PCR Not Detected (NotDetected); Bordetella Pertussis Not Detected (NotDetected); Chlamydophila Pneumoniae, PCR Not Detected (NotDetected); Coronavirus 19, PCR Not Detected (NotDetected); Coronavirus 229E Not Detected (NotDetected); Coronavirus NL63 Not Detected (NotDetected); Coronavirus OC43 Not Detected (NotDetected); Coronovirus HKU1,PCR Not Detected (NotDetected); Human Metapneumovirus Not Detected (NotDetected); Influenza A, PCR Not Detected (NotDetected); Influenza AH1, 2009 Not Detected (NotDetected); Influenza AH1, PCR Not Detected (NotDetected); Influenza AH3,PCR Not Detected (NotDetected); Influenza B, PCR Not Detected (NotDetected); Mycoplasma Pneumoniae, PCR Not Detected (NotDetected); Parainfluenza 1, PCR Not Detected (NotDetected); Parainfluenza 2, PCR Not Detected (NotDetected); Parainfluenza 3, PCR Not Detected (NotDetected); Parainfluenza 4, PCR Not Detected (NotDetected); Respiratory Syncytial Virus Not Detected (NotDetected); Rhinovirus/Enterovirus Not Detected (NotDetected)
[2025-01-05 13:46] LABS: VBG Base Excess 2.4 mmol/L (-2.4-2.3); VBG HCO3 27.9 mmol/L (23-30); VBG Oxygen Saturation 93.7 % (50-70); VBG PH 7.36 mmol/L (7.31-7.41); VBG PO2 67.3 mmol/L (28-40); VBG Total CO2 29.4 mmol/L (23-27)
--- NOTE | 2025-01-05 13:47 | [facility].EDCP ---
Discharge Plan Disposition Patient Disposition: Home, Self-Care Prescriptions Prescriptions: New doxycycline hyclate 100 mg capsule 100 mg PO BID 14 Days Qty: 28 0RF prednisone 20 mg tablet 20 mg PO BID 7 Days Qty: 14 0RF No Action ipratropium-albuterol 0.5 mg-3 mg(2.5 mg base)/3 mL solution for nebulization 3 ml inhalation QID PRN (Reason: shortness of breath or wheezing) 90 Days Qty: 270 2RF spironolactone [Aldactone] 25 mg tablet 25 mg PO DAILY Qty: 30 2RF fluoxetine 20 mg capsule 20 mg PO BID 90 Days Qty: 180 3RF buspirone 10 mg tablet 10 mg PO BID 90 Days Qty: 180 3RF magnesium oxide 400 mg (241.3 mg magnesium) tablet 400 mg PO BID Qty: 60 1RF fluticasone propionate 50 mcg/actuation spray,suspension 1 spray intranasal DAILY Qty: 16 0RF nicotine (polacrilex) [Nicorette] 4 mg gum 4 mg buccal Q2H Qty: 50 1RF furosemide 40 mg tablet 40 mg PO BID atorvastatin 80 mg tablet 80 mg PO DAILY bisoprolol fumarate 10 mg tablet 10 mg PO BID budesonide [Pulmicort] 0.5 mg/2 mL suspension for nebulization 0.5 mg inhalation TID metformin 500 mg tablet 1,000 mg PO BID diltiazem HCl 240 mg capsule,extended release 24hr 240 mg PO DAILY ropinirole 0.25 mg tablet 0.5 mg PO HS albuterol sulfate 90 mcg/actuation HFA aerosol inhaler 2 puff inhalation Q6 PRN (Reason: shortness of air) lisinopril 2.5 mg tablet 2.5 mg PO DAILY Xarelto 20 mg tablet 20 mg PO QPMWITHMEAL Rx Instructions: TAKE ONE TABLET BY MOUTH EVERY DAY with evening meal azithromycin 250 mg Tablet 250 mg PO DAILY 3 Days Qty: 3 0RF insulin glargine [Basaglar KwikPen U-100 Insulin] 100 unit/mL (3 mL) insulin pen 35 unit SQ BID 30 Days Qty: 0 0RF Patient Comments: inject 32 units SUBCUTANEOUSLY TWICE DAILY FOR diabetes prednisone 20 mg Tablet 40 mg PO DAILY 3 Days Qty: 6 0RF tramadol 50 mg Tablet 50 mg PO Q6HP PRN (Reason: Moderate To Severe Pain (4-10)) 3 Days Qty: 11 0RF pantoprazole 40 mg tablet,delayed release (DR/EC) 40 mg PO DAILY montelukast 10 mg tablet 10 mg PO PM pregabalin 25 mg capsule 25 mg PO HS Qty: 14 0RF Referrals Follow up/Referrals: Provider,Referral, [Primary Care Provider, Medical] - See instructions Cristopher Weber MD [Staff Physician, Family Practice] - See instructions Activity Restrictions/Add. Instructions Additional Instructions/Restrictions: Continue to do nebs at home. Take meds as directed. Wear oxygen at all times. Please call PCP tomorrow for appt. Clinical Impressions Clinical Impression: COPD exacerbation Instructions Patient Instructions: DI for Chronic Bronchitis, DI for Chronic Obstructive Pulmonary Disease Print Language Print Language: Cambodian Discharge ED Provider: Sheng Daniels <Lyla Long (ED), [employer] - Last Filed: 01/05/25 17:43> General Chief Complaint: Shortness of Breath/Dyspnea Stated Complaint: SOA Time Seen by Provider: 01/05/25 13:32 Mode of Arrival: Wheelchair Source of Information: Patient Description of Symptoms (Recalled from ER Triage Doc. by RN): Patient states she has been feeling short of breath for about a week. States she wears 4LNC at home, arrived in ER on portable oxygen tank but tubing was not connected. History of Present Illness HPI narrative: This is a 69-year-old female who presents to the ED for complaint of shortness of breath that started yesterday. She does do 4 L nasal cannula at home she states she cannot lay down, sleeps with her bed up. She has productive cough with thick sputum. She has had diarrhea and episodes of incontinence due to the coughing. She has been breaking out in cold sweats but no fevers that she knows about. Patient is wheezing audibly. Patient does have history of acute on chronic respiratory failure with hypoxia, COPD, hyponatremia, hyperlipidemia, history of, pneumonia, diabetes respiratory failure, A-fib, neuropathy, anxiety, pacemaker. Related Data Home Medications ?Medication ?Instructions ?Recorded ?Confirmed montelukast 10 mg tablet 10 mg PO PM 04/17/24 12/23/24 pantoprazole 40 mg tablet,delayed 40 mg PO DAILY 04/17/24 12/23/24 release albuterol sulfate 90 mcg/actuation 2 puff inhalation Q6 PRN shortness 12/23/24 12/23/24 aerosol inhaler of air atorvastatin 80 mg tablet 80 mg PO DAILY 12/23/24 12/23/24 bisoprolol fumarate 10 mg tablet 10 mg PO BID 12/23/24 12/23/24 budesonide 0.5 mg/2 mL suspension 0.5 mg inhalation TID 12/23/24 12/23/24 for nebulization (Pulmicort) diltiazem HCl 240 mg 240 mg PO DAILY 12/23/24 12/23/24 capsule,extended release 24 hr furosemide 40 mg tablet 40 mg PO BID 12/23/24 12/23/24 lisinopril 2.5 mg tablet 2.5 mg PO DAILY 12/23/24 12/23/24 metformin 500 mg tablet 1,000 mg PO BID 12/23/24 12/23/24 rivaroxaban 20 mg tablet (Xarelto) 20 mg PO QPMWITHMEAL 12/23/24 12/23/24 ropinirole 0.25 mg tablet 0.5 mg PO HS 12/23/24 12/23/24 Previous Rx's ?Medication ?Instructions ?Recorded buspirone 10 mg tablet 10 mg PO BID 90 days #180 tabs 08/07/24 fluoxetine 20 mg capsule 20 mg PO BID 90 days #180 caps 08/07/24 ipratropium 0.5 mg-albuterol 3 mg 3 ml inhalation QID PRN shortness 08/28/24 (2.5 mg base)/3 mL nebulization of breath or wheezing 90 days #270 soln mL spironolactone 25 mg tablet 25 mg PO DAILY #30 tabs 10/01/24 (Aldactone) magnesium oxide 400 mg (241.3 mg 400 mg PO BID #60 tabs 11/04/24 magnesium) tablet pregabalin 25 mg capsule 25 mg PO HS #14 caps 11/26/24 fluticasone propionate 50 1 spray intranasal DAILY #16 grams 11/27/24 mcg/actuation nasal spray,suspension nicotine (polacrilex) 4 mg gum 4 mg buccal Q2H #50 ea 12/11/24 (Nicorette) azithromycin 250 mg tablet 250 mg PO DAILY 3 days #3 tabs 12/24/24 insulin glargine 100 unit/mL (3 35 unit (0.35 mL) SQ BID 30 days 12/24/24 mL) subcutaneous pen (Basaglar #0 mL KwikPen U-100 Insulin) prednisone 20 mg tablet 40 mg (2 x 20 mg) PO DAILY 3 days 12/24/24 #6 tabs tramadol 50 mg tablet 50 mg PO Q6HP PRN Moderate To 12/24/24 Severe Pain (4-10) 3 days #11 tabs doxycycline hyclate 100 mg capsule 100 mg PO BID 14 days #28 caps 01/05/25 prednisone 20 mg tablet 20 mg PO BID 7 days #14 tabs 01/05/25 Allergies Allergy/AdvReac Type Severity Reaction Status Date / Time verapamil Allergy Severe Rash Verified 11/25/24 13:42 Iodine and Iodide Containing Allergy Mild Rash Verified 11/25/24 13:42 Produc Penicillins (PENICILLINS) Allergy Unknown I-RASH Verified 11/25/24 13:42 Sulfa (Sulfonamide Allergy Unknown NA-NAUSEA/V Verified 11/25/24 13:42 Antibiotics) (SULFA OMITING (SULFONAMIDE ANTIBIOTICS)) [facility] <Lyla Long (ED), [employer] - Last Filed: 01/05/25 17:43> [facility] Disclaimer: The information contained in this section may have been updated after the patient was seen, as this information can be updated by other users. Medical History Acute on chronic respiratory failure with hypoxia and hypercapnia Chronic, continuous use of opioids Overuse of medication Pneumonia Pre-operative cardiovascular examination Pacemaker lead malfunction Pacemaker at end of battery life Vulvar cyst Candidal intertrigo Bronchiectasis, non-tuberculous COPD (chronic obstructive pulmonary disease) Acute exacerbation of chronic obstructive pulmonary disease Stopped smoking with greater than 30 pack year history History of asthma Family history of asthma Allergic rhinitis, unspecified History of 2019 novel coronavirus disease (COVID-19) COPD (chronic obstructive pulmonary disease) Acute respiratory failure with hypoxia COPD exacerbation Encounter for screening for malignant neoplasm of lung in current smoker with 30 pack year history or greater Stopped smoking with greater than 30 pack year history History of asthma Family history of asthma Allergic rhinitis History of 2019 novel coronavirus disease (COVID-19) COPD exacerbation Hyperlipemia PAF (paroxysmal atrial fibrillation) COPD (chronic obstructive pulmonary disease) On statin therapy Diabetes (~06/2020) Cardiac pacemaker in situ Fatigue HHD (hypertensive heart disease) Surgical History History of tonsillectomy History of cholecystectomy Hx of tonsillectomy History of arthroplasty of right knee Hx of cholecystectomy Family History Other Cancer Coronary artery disease Diabetes Hyperlipidemia Hypertension Social History Smoking Status: Current every day smoker tobacco type: cigarettes packs per day: 1 smoking status stop date: 09/12/2022 second hand exposure: Yes alcohol intake: never substance use type: denies use current occupational status: disabled and other Travel in the last 8 weeks?: None household members: none housing: house marital status: number of children: 0 current occupational exposures/hazards: No caffeine: Yes Have you lived/traveled outside [place] in past 30 days?: No Contact w/someone who lives/traveled outside US past 30 days?: No Exposure to someone with infectious disease in past 14 days?: No Do you have a fever (greater than 100.4 F or 38 C)?: No Have you tested positive for COVID-19?: No Exposed to someone with COVID-19 in past 14 days?: No Do you have a sore throat?: No Do you have a cough?: No Do you have any weakness?: No Do you have any diarrhea?: No Are you experiencing any unusual bleeding?: No Do you have any muscle aches/pain?: No Do you have any abdominal pain?: No Are you experiencing loss of taste or smell?: No Other Medical History Have you received the Flu Vaccine for this season: No Have you received the Pneumonia Vaccine: No <Lyla Long (ED), [employer] - Last Filed: 01/05/25 17:43> ROS Obtained: Yes Systems reviewed as appropriate & no additional complaints except as documented Constitutional Constitutional: Reports as per HPI Physical Exam <Lyla Long (ED), [employer] - Last Filed: 01/05/25 17:43> General General appearance: alert and in distress Head Head exam: normocephalic Eye Eye exam: Present normal appearance, PERRL and EOMI ENT ENT exam: Present normal exam, normal oropharynx and mucous membranes moist Neck Neck exam: Present full ROM and trachea midline Respiratory Respiratory exam: Present respiratory distress, wheezes and accessory muscle use Cardiovascular Cardiovascular exam: Present regular rate, normal rhythm, normal heart sounds, +S1 and +S2 Abdominal Exam Abdominal exam: Present soft and normal bowel sounds Extremities Exam Extremities exam: Present normal inspection, full ROM and normal capillary refill Neurological Exam Neurological exam: Present alert and oriented X3 Skin Skin exam: Present warm, dry and intact HEART Score <Lyla Long (ED), [employer] - Last Filed: 01/05/25 17:43> HEART Score HEART Score assessment performed?: Yes History (anamnesis): Moderately suspicious ECG: Normal Age: >65 years Risk factors: 3 or more risk factors Troponin: </= normal limit HEART Score: 5 <Sheng Daniels MD - Last Filed: 01/06/25 09:29> HEART Score HEART Score: 5 Critical Care <Lylawilson Long (ED), [employer] - Last Filed: 01/05/25 17:43> Critical Care Time Critical Care Time: No Medical Decision Making <[facility] (ED), [employer] - Last Filed: 01/05/25 17:43> Medical Records Medical records reviewed: Yes I reviewed the patient's medical records. Anibal Inquiry Pt receiving controlled substance: No Anibal was queried for this patient: No Vital Signs Vital Signs: 01/05/25 13:31 01/05/25 14:00 01/05/25 14:31 Temperature 98.8 F Temperature Source Oral Pulse Rate 71 74 Pulse Rate [Right Radial] 93 H Respiratory Rate 24 Blood Pressure 125/81 121/68 Blood Pressure [Right Arm] 127/80 Blood Pressure Mean [Right Arm] 95 Blood Pressure Source Blood Pressure Source [Right Arm] Automatic Cuff Blood Pressure Position Blood Pressure Position [Right Arm] Sitting 02 Sat by Pulse Oximetry 93 L 96 94 L Oxygen Delivery Method Nasal Cannula Oxygen Flow Rate (LPM) 4 01/05/25 15:01 01/05/25 15:30 01/05/25 16:00 Temperature Temperature Source Pulse Rate 83 70 70 Pulse Rate [Right Radial] Respiratory Rate Blood Pressure 126/41 L 112/51 L 115/58 L Blood Pressure [Right Arm] Blood Pressure Mean [Right Arm] Blood Pressure Source Blood Pressure Source [Right Arm] Blood Pressure Position Blood Pressure Position [Right Arm] 02 Sat by Pulse Oximetry 96 96 94 L Oxygen Delivery Method Oxygen Flow Rate (LPM) 01/05/25 16:18 Temperature 98.0 F Temperature Source Oral Pulse Rate 76 Pulse Rate [Right Radial] Respiratory Rate 20 Blood Pressure 115/58 L Blood Pressure [Right Arm] Blood Pressure Mean [Right Arm] Blood Pressure Source Automatic Cuff Blood Pressure Source [Right Arm] Blood Pressure Position Sitting Blood Pressure Position [Right Arm] 02 Sat by Pulse Oximetry Oxygen Delivery Method Nasal Cannula Oxygen Flow Rate (LPM) 4 Lab Data Lab results reviewed: Yes I reviewed the patient's lab results. Labs: Lab Results 01/05/25 13:36: WBC 14.9 H, RBC 5.29, Hgb 13.9, Hct 46.4, MCV 87.7, MCH 26.3 L, MCHC 30.0 L, RDW 15.7, Plt Count 199, MPV 11.6 H, Neut % (Auto) 74.6, Lymph % (Auto) 15.2, [place] % (Auto) 6.3, Eos % (Auto) 2.0, Baso % (Auto) 0.8, Neut # (Auto) 11.1 H, Lymph # (Auto) 2.3, [place] # (Auto) 0.9, Eos # (Auto) 0.3, Baso # (Auto) 0.1, PT 11.3, INR 1.02, D-Dimer 0.55 H, VBG pH 7.36, VBG pCO2 50.2, VBG pO2 67.3 H, VBG HCO3 27.9, VBG Total CO2 29.4 H, VBG O2 Saturation 93.7 H, VBG Base Excess 2.4 H, VBG Lactic Acid 2.4 H, Sodium 137, Potassium 4.2, Chloride 102, Carbon Dioxide 32 H, Anion Gap 7.2, BUN 16, Creatinine 0.80, Estimated Creat Clear 81, Estimated GFR 71, Est GFR ( Amer) 86, Glucose 269 H, Calcium 9.4, Magnesium 1.4 L, Total Bilirubin 0.4, AST 28, ALT 27, Alkaline Phosphatase 105, Troponin I < 0.01, NT-Pro-B Natriuret Pep 128 H, Total Protein 6.7, Albumin 4.3, Globulin 2.4, Albumin/Globulin Ratio 1.8, Lipase 107 01/05/25 13:37: Chlamy pneumoniae PCR Not detected, Adenovirus (PCR) Not detected, B. pertussis DNA (PCR) Not detected, Coronavirus OC43 (PCR) Not detected, Coronavirus HKU1 (PCR) Not detected, Coronavirus 229E (PCR) Not detected, SARS-CoV-2 (PCR) Not detected, Coronavirus NL63 (PCR) Not detected, Human Metapneumovir PCR Not detected, Influenza A (H1) PCR Not detected, Influ A (H1N1/09) PCR Not detected, Influenza A (H3) PCR Not detected, Influenza Type A (PCR) Not detected, Influenza Type B (PCR) Not detected, M. pneumoniae (PCR) Not detected, Parainfluenza 1 (PCR) Not detected, Parainfluenza 2 (PCR) Not detected, Parainfluenza 3 (PCR) Not detected, Parainfluenza 4 (PCR) Not detected, RSV (PCR) Not detected, Entero/Rhino (PCR) Not detected 01/05/25 13:36 01/05/25 13:36 Response Orders (Tests/Meds): ED MEDICATIONS Discontinued Medications Generic Name Dose Route Start Last Admin Trade Name Freq PRN Reason Stop Dose Admin Albuterol/Ipratropium 9 ml 01/05/25 13:33 01/05/25 14:06 Ipratropium/Albuterol 3 Ml [facility] 01/05/25 13:34 9 ml ONCE ONE Administration Albuterol/Ipratropium 3 ml 01/05/25 15:25 01/05/25 15:49 Ipratropium/Albuterol 3 Ml [facility] 01/05/25 15:26 Not Given ONCE ONE Magnesium Sulfate 2 gm in 50 mls @ 50 mls/hr 01/05/25 13:33 01/05/25 14:06 Magnesium Sulfate 2gm/50ml Premix IV 01/05/25 14:32 50 mls/hr ONCE ONE Administration Methylprednisolone Sodium Succinate 125 mg 01/05/25 13:33 01/05/25 14:06 Methylprednisolone Sod Succ 125mg Vial IV 01/05/25 13:34 125 mg ONCE ONE Administration Morphine Sulfate 4 mg 01/05/25 14:46 01/05/25 14:59 Morphine 4mg/Ml Syringe IV 01/05/25 14:47 4 mg ONCE ONE Administration Ondansetron HCl 4 mg 01/05/25 14:55 01/05/25 14:58 Ondansetron 4mg/2ml Vial IV 01/05/25 14:56 4 mg ONCE ONE Administration ORDERS Category Date Time Status Chest XR 2 view (NOT portable) [XR chest 2V] Stat Exams 01/05/25 13:33 Completed BNP [NT Pro Brain Natriuretic Pep.] Stat Lab 01/05/25 13:36 Completed CBC [Complete Blood Count Auto Diff] Stat Lab 01/05/25 13:36 Completed Comprehensive Metabolic Panel Stat Lab 01/05/25 13:36 Completed D-Dimer Stat Lab 01/05/25 13:36 Completed Full Resp Panel w/COVID ([facility]) Routine Lab 01/05/25 13:37 Completed Lipase Stat Lab 01/05/25 13:36 Completed Magnesium Stat Lab 01/05/25 13:36 Completed PT INR [Prothrombin Time INR] Stat Lab 01/05/25 13:36 Completed Trop I [Troponin I] Stat Lab 01/05/25 13:36 Completed Blood Culture Stat Micro 01/05/25 14:00 Received Venous Blood Gas Stat RT 01/05/25 13:36 Completed MDM Narrative Medical Decision Narrative: patient is a 69-year-old female presenting to the emergency department for evaluation of shortness of breath. This has worsened since yesterday. She says she is unable to lie down. When she sleeps she has to sit up. She has been coughing up thick sputum and has had diarrhea and incontinence. No fevers but has had cold sweats. Patient is hemodynamically stable, 93% on 4 L nasal cannula but tachypneic on arrival to the ED. Differential diagnosis includes CHF exacerbation, COPD exacerbation, respiratory failure among others.. Workup will be conducted with hematologic labs, specific imaging including chest x-ray, magnesium IV, Solu-Medrol IV and DuoNebs. Initial workup reviewed by me white count was 14.9 which is likely due to her steroid use. Mag was 1.4 but she has had magnesium as an adjunct to help her breathe. Her BNP was 128. She does have history of congestive heart failure so I did not give her the sepsis bolus since her lactate was 2.4. I did not want patient to have fluid overload. Patient's other labs were essentially unremarkable at this time. She is keeping her O2 levels between 93 and 97 on her normal home O2 at 4 L nasal cannula. Her wheezing has decreased after the DuoNeb. She is still coughing. Imaging informally interpreted by me and remarkable for COPD exacerbation. Formal imaging read remarkable for nothing acute. Patient requested pain medication which Dr. Wei and I both agreed and told her to call Dr. Weber who is her PCP about pain medicine. She does see pain management. Patient does have a bad cough but chest x-ray showed nothing acute. Patient breathing better after interventions. She is to call PCP for follow-up quickly outpatient. <Sheng Daniels MD - Last Filed: 01/06/25 09:29> Vital Signs Vital Signs: 01/05/25 13:31 01/05/25 14:00 01/05/25 14:31 Temperature 98.8 F Temperature Source Oral Pulse Rate 71 74 Pulse Rate [Right Radial] 93 H Respiratory Rate 24 Blood Pressure 125/81 121/68 Blood Pressure [Right Arm] 127/80 Blood Pressure Mean [Right Arm] 95 Blood Pressure Source Blood Pressure Source [Right Arm] Automatic Cuff Blood Pressure Position Blood Pressure Position [Right Arm] Sitting 02 Sat by Pulse Oximetry 93 L 96 94 L Oxygen Delivery Method Nasal Cannula Oxygen Flow Rate (LPM) 4 01/05/25 15:01 01/05/25 15:30 01/05/25 16:00 Temperature Temperature Source Pulse Rate 83 70 70 Pulse Rate [Right Radial] Respiratory Rate Blood Pressure 126/41 L 112/51 L 115/58 L Blood Pressure [Right Arm] Blood Pressure Mean [Right Arm] Blood Pressure Source Blood Pressure Source [Right Arm] Blood Pressure Position Blood Pressure Position [Right Arm] 02 Sat by Pulse Oximetry 96 96 94 L Oxygen Delivery Method Oxygen Flow Rate (LPM) 01/05/25 16:18 Temperature 98.0 F Temperature Source Oral Pulse Rate 76 Pulse Rate [Right Radial] Respiratory Rate 20 Blood Pressure 115/58 L Blood Pressure [Right Arm] Blood Pressure Mean [Right Arm] Blood Pressure Source Automatic Cuff Blood Pressure Source [Right Arm] Blood Pressure Position Sitting Blood Pressure Position [Right Arm] 02 Sat by Pulse Oximetry Oxygen Delivery Method Nasal Cannula Oxygen Flow Rate (LPM) 4 Lab Data Labs: Lab Results 01/05/25 13:36: WBC 14.9 H, RBC 5.29, Hgb 13.9, Hct 46.4, MCV 87.7, MCH 26.3 L, MCHC 30.0 L, RDW 15.7, Plt Count 199, MPV 11.6 H, Neut % (Auto) 74.6, Lymph % (Auto) 15.2, [place] % (Auto) 6.3, Eos % (Auto) 2.0, Baso % (Auto) 0.8, Neut # (Auto) 11.1 H, Lymph # (Auto) 2.3, [place] # (Auto) 0.9, Eos # (Auto) 0.3, Baso # (Auto) 0.1, PT 11.3, INR 1.02, D-Dimer 0.55 H, VBG pH 7.36, VBG pCO2 50.2, VBG pO2 67.3 H, VBG HCO3 27.9, VBG Total CO2 29.4 H, VBG O2 Saturation 93.7 H, VBG Base Excess 2.4 H, VBG Lactic Acid 2.4 H, Sodium 137, Potassium 4.2, Chloride 102, Carbon Dioxide 32 H, Anion Gap 7.2, BUN 16, Creatinine 0.80, Estimated Creat Clear 81, Estimated GFR 71, Est GFR ( Amer) 86, Glucose 269 H, Calcium 9.4, Magnesium 1.4 L, Total Bilirubin 0.4, AST 28, ALT 27, Alkaline Phosphatase 105, Troponin I < 0.01, NT-Pro-B Natriuret Pep 128 H, Total Protein 6.7, Albumin 4.3, Globulin 2.4, Albumin/Globulin Ratio 1.8, Lipase 107 01/05/25 13:37: Chlamy pneumoniae PCR Not detected, Adenovirus (PCR) Not detected, B. pertussis DNA (PCR) Not detected, Coronavirus OC43 (PCR) Not detected, Coronavirus HKU1 (PCR) Not detected, Coronavirus 229E (PCR) Not detected, SARS-CoV-2 (PCR) Not detected, Coronavirus NL63 (PCR) Not detected, Human Metapneumovir PCR Not detected, Influenza A (H1) PCR Not detected, Influ A (H1N1/09) PCR Not detected, Influenza A (H3) PCR Not detected, Influenza Type A (PCR) Not detected, Influenza Type B (PCR) Not detected, M. pneumoniae (PCR) Not detected, Parainfluenza 1 (PCR) Not detected, Parainfluenza 2 (PCR) Not detected, Parainfluenza 3 (PCR) Not detected, Parainfluenza 4 (PCR) Not detected, RSV (PCR) Not detected, Entero/Rhino (PCR) Not detected Response Orders (Tests/Meds): ED MEDICATIONS Discontinued Medications Generic Name Dose Route Start Last Admin Trade Name Freq PRN Reason Stop Dose Admin Albuterol/Ipratropium 9 ml 01/05/25 13:33 01/05/25 14:06 Ipratropium/Albuterol 3 Ml [facility] 01/05/25 13:34 9 ml ONCE ONE Administration Albuterol/Ipratropium 3 ml 01/05/25 15:25 01/05/25 15:49 Ipratropium/Albuterol 3 Ml [facility] 01/05/25 15:26 Not Given ONCE ONE Magnesium Sulfate 2 gm in 50 mls @ 50 mls/hr 01/05/25 13:33 01/05/25 14:06 Magnesium Sulfate 2gm/50ml Premix IV 01/05/25 14:32 50 mls/hr ONCE ONE Administration Methylprednisolone Sodium Succinate 125 mg 01/05/25 13:33 01/05/25 14:06 Methylprednisolone Sod Succ 125mg Vial IV 01/05/25 13:34 125 mg ONCE ONE Administration Morphine Sulfate 4 mg 01/05/25 14:46 01/05/25 14:59 Morphine 4mg/Ml Syringe IV 01/05/25 14:47 4 mg ONCE ONE Administration Ondansetron HCl 4 mg 01/05/25 14:55 01/05/25 14:58 Ondansetron 4mg/2ml Vial IV 01/05/25 14:56 4 mg ONCE ONE Administration ORDERS Category Date Time Status Chest XR 2 view (NOT portable) [XR chest 2V] Stat Exams 01/05/25 13:33 Completed BNP [NT Pro Brain Natriuretic Pep.] Stat Lab 01/05/25 13:36 Completed CBC [Complete Blood Count Auto Diff] Stat Lab 01/05/25 13:36 Completed Comprehensive Metabolic Panel Stat Lab 01/05/25 13:36 Completed D-Dimer Stat Lab 01/05/25 13:36 Completed Full Resp Panel w/COVID ([facility]) Routine Lab 01/05/25 13:37 Completed Lipase Stat Lab 01/05/25 13:36 Completed Magnesium Stat Lab 01/05/25 13:36 Completed PT INR [Prothrombin Time INR] Stat Lab 01/05/25 13:36 Completed Trop I [Troponin I] Stat Lab 01/05/25 13:36 Completed Blood Culture Stat Micro 01/05/25 14:00 Received Venous Blood Gas Stat RT 01/05/25 13:36 Completed MDM Narrative Medical Decision Narrative: patient is a 69-year-old female presenting to the emergency department for evaluation of shortness of breath. This has worsened since yesterday. She says she is unable to lie down. When she sleeps she has to sit up. She has been coughing up thick sputum and has had diarrhea and incontinence. No fevers but has had cold sweats. Patient is hemodynamically stable, 93% on 4 L nasal cannula but tachypneic on arrival to the ED. Differential diagnosis includes CHF exacerbation, COPD exacerbation, respiratory failure among others.. Workup will be conducted with hematologic labs, specific imaging including chest x-ray, magnesium IV, Solu-Medrol IV and DuoNebs. Initial workup reviewed by me white count was 14.9 which is likely due to her steroid use. Mag was 1.4 but she has had magnesium as an adjunct to help her breathe. Her BNP was 128. She does have history of congestive heart failure so I did not give her the sepsis bolus since her lactate was 2.4. I did not want patient to have fluid overload. Patient's other labs were essentially unremarkable at this time. She is keeping her O2 levels between 93 and 97 on her normal home O2 at 4 L nasal cannula. Her wheezing has decreased after the DuoNeb. She is still coughing. Imaging informally interpreted by me and remarkable for COPD exacerbation. Formal imaging read remarkable for nothing acute. Patient requested pain medication which Dr. Wei and I both agreed and told her to call Dr. Weber who is her PCP about pain medicine. She does see pain management. Patient does have a bad cough but chest x-ray showed nothing acute. Patient breathing better after interventions. She is to call PCP for follow-up quickly outpatient. I was consulted by the JOY, and we discussed the complexity of the problems being addressed.I approved the treatment and management plan for this patient?s care in the Emergency Department, thus performing a substantive portion of the medical decision making.Signed, MD JUAN A KwanA
[2025-01-05 13:48] LABS: VBG PCO2 50.2 mmol/L (35-51)
[2025-01-05 13:49] LABS: Lactate Venous 2.4 mmol/L (0.4-2.0)
[2025-01-05 13:55] LABS: Chloride 102 mmol/L (98-107)
[2025-01-05 13:56] LABS: Albumin Level 4.3 g/dl (3.5-5.0); Basophils # 0.1 K/mm3 (0-0.2); Basophils % 0.8 % (0.1-2.0); Eosinophils # 0.3 Kmm3 (0.0-0.4); Hematocrit 46.4 % (37.0-47.0); Hemoglobin 13.9 g/dL (12.2-16.2); Immature Granulocytes # 0.17 10^3uL; Immature Granulocytes % 1.1 %; Lymphocytes # 2.3 K/mm3 (0.7-4.5); Lymphocytes % 15.2 % (10-50); Mean Corpuscular Hemoglobin 26.3 pg (27.0-31.2); Mean Corpuscular Volume 87.7 fl (81-99); Mean Platelet Volume 11.6 fl (7.4-10.4); Monocytes # 0.9 K/mm3 (0.1-1.0); Monocytes % 6.3 % (1.7-9.3); Neutrophils # 11.1 K/mm3 (1.8-7.8); Neutrophils % 74.6 % (37.0-80.0); Nucleated Red Blood Cells # 0 10^3/uL; Nucleated Red Blood Cells % 0 %; Platelet Count 199 K/mm3 (142-424); Potassium 4.2 mmoL/L (3.5-5.1); Red Blood Count 5.29 M/mm3 (4.20-5.40); Red Cell Distribution Width 15.7 % (11.5-17.5); Red Cell Distribution Width-SD 49.5 fL; Sodium 137 mmol/L (136-145); White Blood Count 14.9 K/mm3 (4.8-10.8)
[2025-01-05 13:59] LABS: Alanine Aminotransferase 27 U/L (12-78); Albumin/Globulin Ratio 1.8 (1.1-1.8); Alkaline Phosphatase 105 U/L (38-126); Anion Gap 7.2 mEq/L (5-15); Aspartate Amino Transferase 28 U/L (14-36); Bilirubin,Total 0.4 mg/dl (0.2-1.3); Blood Urea Nitrogen 16 mg/dl (7-17); Calcium 9.4 mg/dl (8.4-10.2); Carbon Dioxide 32 mmol/L (22.0-30.0); Creatinine Clearance Estimated 81 mL/min (50-200); Estimated Glomerular Filt Rate 71 ml/min (>60); GFR (African American) 86 ML/MIN (>60); Globulin 2.4 g/dL (1.3-3.2); Glucose 269 mg/dl (74-100); Lipase 107 U/L (23-300); Magnesium 1.4 mg/dl (1.6-2.3); Total Protein,Serum 6.7 g/dl (6.3-8.2)
[2025-01-05] MEDS: MAGNESIUM SULFATE IN WATER 2 GM/50 ML PIGGYBACK IV (14:06)
[2025-01-05] MEDS: IPRATROPIUM/ALBUTEROL 3 ML NEB 9 ML IH (14:06)
[2025-01-05] MEDS: METHYLPREDNISOLONE SOD SUCC 125MG VIAL 125 MG IV (14:06)
[2025-01-05 14:09] LABS: NT Pro Brain Natriuretic Pep. 128 pg/mL (0-125)
[2025-01-05 14:13] LABS: Troponin I < 0.01 ng/ml (0.00-0.034)
[2025-01-05 14:41] LABS: INR 1.02 (0.9-1.1); Prothrombin Time 11.3 seconds (10.1-12.5)
[2025-01-05] MEDS: ONDANSETRON 4MG/2ML VIAL 4 MG IV (14:58)
[2025-01-05] MEDS: MORPHINE 4MG/ML SYRINGE 4 MG IV (14:59)
--- NOTE | 2025-01-05 15:01 | PC.NURSE ---
PT MEDICATED PER EMAR, PILLOW AND BLANKET PROVIDED. CALL LIGHT WITHIN REACH. NO NEEDS AT THIS TIME
[2025-01-05 15:15] LABS: D-Dimer 0.55 ug/mL (0.0-0.5)
[2025-01-05 17:46] LABS: Reflex Lactic Add Lactic Reflex
== END 2025-01-05 16:18 | disposition home or self-care (01) ==
PROVIDERS: Nurse Practitioner; Emergency Provider Emergency Medicine
DX: J44.1 Chronic obstructive pulmonary disease with (acute) exacerbation (principal); F17.210 Nicotine dependence, cigarettes, uncomplicated; Z99.81 Dependence on supplemental oxygen
CPT/HCPCS: 0223U; 71046; 80053; 82803; 83690; 83735; 83880; 84484; 85025; 85378; 85610; 87040; 87633; 93005; 96365; 96375; 99285; J2270; J2405; J2919; J3475

== ENCOUNTER 2025-03-05 19:09 | Inpatient (IN) | payer MEDICAID, MEDICARE, SELFPAY ==
[2025-03-05] VITALS (12 sets, daily range): BP systolic 115–134; BP diastolic 51–63; PULSE 63–72; RESP 16–24; TEMP 36.8–36.9; O2SAT 88–98; BMI 32.5; BMI 32.9
--- NOTE | 2025-03-05 19:15 | PC.NURSE ---
Pt placed on 4 lpm nasal O2 due to initial low ELLIS@
--- OUTSIDE RECORDS SUMMARY | 2025-03-05 19:34 | XMS_ITS | Clinical Summary ---
Author Organization [facility] Address [address] [place] [address] Care Team Providers Care [employer] Dean Name Role Phone Ilir Jeffers MD Primary Care Provider + [phone] Allergies Active Allergy Reactions Criticality Noted Date Comments Iodine Unknown - Patient st ates they do not know rxn details Low 11/28/2016 Penicillins Unknown - Patient st ates they do not know rxn details Low 11/28/2016 Sulfacetamide Unknown - Patient st ates they do not know rxn details Low 11/28/2016 Verapamil Unknown - Patient st ates they do not know rxn details Low 11/01/2020 Medications NYSTATIN PO 1 Active oxygen (O2) gas 7 Active aspirin (Aspir-Low) 81 MG EC tablet 7 Active atorvastatin (Lipitor) 40 MG tablet TAKE 1 TABLET AT BEDTIME. 1 Active FLUoxetine (PROzac) 20 MG tablet TAKE 1 TABLET DAILY. 1 Active Fluticasone-Ume clidin-Vilant (Trelegy Ellipta) 100-62.5-25 MCG/INH aerosol powder 1 Active gabapentin (Neurontin) 600 MG tablet TAKE 1 TABLET 3 TIMES DAILY. 7 Active glipiZIDE (Glucotrol) 10 MG tablet TAKE 1 TABLET DAILY. 1 Active HYDROcodone-rebecca taminophen (Du Quoin) 7.5-325 MG tablet 1 Active losartan (Cozaar) 50 MG tablet 7 Active Magnesium Oxide -Mg Supplement 400 MG capsule Take 1 capsule twice daily 1 Active metFORMIN (Glucophage) 500 MG tablet 1 Active montelukast (Singulair) 10 MG tablet 7 Active omeprazole (PriLOSEC) [address] capsule TAKE 1 CAPSULE Daily 1 Active potassium chloride CR (Klor-Con M20) 20 MEQ ER tablet TAKE 1 TABLET DAILY. 1 Active tiZANidine (Zanaflex) 4 MG tablet 7 Active chlorhexidine (Peridex) 0.12 % solution Use 15 mL in the mouth or throat if needed for wound care. 120 mL 4 Active bacitracin 500 UNIT/GM ointment Facial laceration to cover nose 14 g 4 Active ipratropium-alb uterol (Duo-Neb) 0.5-2.5 mg/3 mL nebulizer solution Take 3 mL by nebulization every 4 (four) hours. 180 mL 11 4 Active Jardiance 10 MG Take 2 tablets (20 mg) by mouth 1 (one) time each day. Active furosemide (Lasix) 40 MG tablet Take 1 tablet (40 mg) by mouth 1 (one) time each day. Active pantoprazole (Protonix) 40 MG EC tablet Take 1 tablet (40 mg) by mouth 1 (one) time each day. Active FLUoxetine (PROzac) 20 MG capsule TAKE ONE CAPSULE BY MOUTH TWICE DAILY FOR MOOD 4 Active Active Problems Problem Noted Date Diagnosed Date Facial trauma, initial encounter 09/05/2023 Facial laceration 09/05/2023 Overview (09/05/2023): - TAYE repaired in ED - Peridex rinse TID after meals - Apply bacitracin to lacerations/abrasions BID Nasal fracture 09/05/2023 Diabetes 09/05/2023 Overview (09/05/2023): On home oral regimen ACHS finger sticks SSI Fall 09/05/2023 Overview (09/05/2023): Admit to T Tertiary 2/8 A-fib 09/05/2023 Overview (09/05/2023): May resume home xarelto Acute kidney injury superimposed on CKD 09/05/19 24 Overview (09/05/2023): Cr. 1.22 on arrival, baseline 0.8 CTM Sebaceous cyst 09/05/2023 Overview (09/05/2023): Incidental finding on imaginmm presumed sebaceous cyst right posterior soft tissues of neck DDD (degenerative disc disease), cervical 2023 Overview (09/05/2023): Incidental finding on imaging CKD (chronic kidney disease) stage 2, GFR 60-89 ml/min 11/22/2020 Essential hypertension 11/22/2020 Overview (09/05/2023): Restart home meds when appropriate GERD (gastroesophageal reflux disease) 8 Chronic obstructive pulmonary disease 11/28/2016 Overview (09/05/2023): On home O2 Duonebs HLD (hyperlipidemia) 11/28/2016 Overview (09/05/2023): Restart home aspirin and statin Osteoporosis 11/28/2016 Resolved Problems Problem Noted Date Diagnosed Date Resolved Date Microalbuminuria 10/11/2020 09/05/2023 Immunizations Immunization Administration Dates Next Due Influenza, Unspecified 06/13/2017,05/29/2017 Family History Medical History Relation Name Comments Cardiac disorder Father Other cancer Father Cardiac disorder Mother Other cancer Mother Relation Name Status Comments Father Mother Social History Tobacco Use Types Packs/Day Years Used Date Smoking Tobacco: Every Day Smokeless Tobacco: Never Comments Unknown Sex and Gender Information Value Date Recorded Sex Assigned at Not on file Legal Sex Female 8:03 PM EDT Gender Identity Not on file Sexual Orientation Not on file Last Filed Vital Signs Vital Sign Reading Time Taken Comments Blood Pressure 120/71 09/11/2023 9:28 AM EST Pulse 70 09/11/2023 9:28 AM EST Temperature 36.1 C (96.9 F) 09/11/2023 9:28 AM EST Respiratory Rate 17 09/05/2023 3:05 PM EST Oxygen Saturation 95% 09/11/2023 9:28 AM EST Inhaled Oxygen Concentration - - Weight 106 kg (234 lb 1.6 oz) 09/11/2023 9:28 AM EST Height 175.3 cm (5' 9 ) 09/11/2023 9:28 AM EST Body Mass Index 34.57 09/11/2023 9:28 AM EST Plan of Treatment Health Maintenance Due Date Last Done Comments [facility]-Bone Density Scan 1953 [facility]-Depression Screening 1953 [facility]-Diabetes: Hemoglobin A1C 1953 [facility]-Medicare Annual Wellness (AWV) 1955 [facility]-Infant/Child/Adol SDOH Screenings 1953 Diabetes: Dental Exam 1963 [facility]- SDOH Screenings 1971 [facility]-Adult SDOH Screenings 1971 CT Colonography 1998 Colonoscopy 1998 FIT-DNA 1998 FIT 1998 FOBT 1998 Sigmoidoscopy 1998 [facility]-Colorectal Cancer Screening 1998 [facility]-Breast Cancer Screening 2003 [facility]-Zoster Vaccines (1 of 2) 2003 [id number] Vaccine (3 - 2023- season) 2024 04/11/2021, 03/14/2021 [facility]-Influenza Vaccine (#1) 03/30/202510/16, 05/20/2018, 06/13/2017, Additional history exists [facility]-RSV Vaccine: 60+ Years or (1 - 1-dose 75+ series) 2028 [facility]-DTaP,Tdap,and Td Vaccines (3 - Td or Tdap) 09/04/2033 09/04/2023, 10/09/2012, 10/04/1996 [facility]-Pneumococcal Vaccine: 50+ Years Completed 10/16/2022, 05/20/2018, 11/09/2015, Additional history exists [facility]-Hepatitis C Screening Completed 09/05/2023, [facility]-Obesity Intervention Completed 09/11/2023, 12/2023 HPV Vaccines Aged Out No longer eligi ble based on patient's age to complete this topic [facility]-HIB Vaccines Aged Out No longer e ligible based on patient's age to complete this topic [facility]-Hepatitis A Vaccines Aged Out No longer eligible based on patient's age to complete this topic [facility]-IPV Vaccines Aged Out No longer e ligible based on patient's age to complete this topic [facility]-Rotavirus Vaccines Aged Out No lo nger eligible based on patient's age to complete this topic Procedures Procedure Name Priority Date/Time Associated Diagnosis Comments HEPATITIS C ANTIBODY - ED W/REFLEX TO HCV QUANT PCR Routine 09/05/2023 2:58 AM EST from Last 3 Months or Most Recently Relevant to Health Maintenance Results * Hepatitis C Antibody - ED (09/05/2023 2:58 AM EST) Hepatitis C Antibody Negative Negative 09/05/2023 3:48 AM EST [facility] Blood Venous blood specimen / Unknown Venipuncture / Unknown 09/05/2023 2:58 AM EST 09/05/2023 3:06 AM EST us Junior Thomson MD LAB BLOOD ORDERABLES Final Result [facility] [address] [place] [address] from Last 3 Months or Most Recently Relevant to Health Maintenance Insurance MEDICAID MEDICARE Advance Directives * Full Code (Latest Code Status on File) Date Activated Date Inactivated Comments 09/05/2023 5:32 AM 09/05/2023 5:40 PM Question Answer Comments Patient has decision-making capacity? Yes Care Teams [employer] Dean Relationship Specialty Start Date End Date Ilir Jeffers MD [address] [place] [address] PCP - General 12/10/20
--- OUTSIDE RECORDS SUMMARY | 2025-03-05 19:34 | XMS_ITS | Clinical Summary ---
Author Organization [facility] Address [address] [place] [address] Phone Care Team Providers Care Assurance Senior Manager Insurance Name Role Phone Unavailable Primary Care Provider Unavailabl e Allergies Active Allergy Reactions Criticality Noted Date Comments Iodine Nausea And Vomiting 08/18/2009 Penicillins Swelling High 08/18/2009 Sulfa (Sulfonamide Antibiotics) Hives 03/30 Medications Nebulizer Accessories (A.I.R.S NEBULIZER REPLACEMENT) Kit Need New nebulizer 1 Kit 0 012 Active albuterol (VENTOLIN HFA) 90 mcg/actuation inhalerIndications:Swimming Pool Attendant gisselle airway obstruction, not elsewhere classified Inhale 2 Puffs into the lungs every 4 hours as needed for Wheezing. 2 Inhaler 5 012 Active albuterol-ipratropium (DUO-NEB) 0.5 mg-3 mg(2.5 mg base)/3 mL NebuIndications:Chronic airway obstruction, not elsewhere classified Take 3 mL by nebulization 4 times daily. 120 Vial 5 013 Active montelukast (SINGULAIR) 10 mg tablet TAKE ONE TABLET BY MOUTH EVERY DAY GENERIC FOR SINGULAIR 30 Tab 2 013 Active tiZANidine (ZANAFLEX) 4 mg tablet TAKE ONE TABLET BY MOUTH 3 TIMES A DAY GENERIC FOR ZANAFLEX 90 Tab 2 013 Active omeprazole (PRILOSEC) 40 mg capsule Take 1 Cap by mouth 2 times daily. 30 Cap 3 014 Active buPROPion (WELLBUTRIN SR) 150 mg Oral Tablet Sustained Release 12 hr 02/27 Active BREO ELLIPTA 200-25 mcg/dose Inhl Disk with Device Active metoprolol succinate (TOPROL-XL) 25 mg Oral Tablet Sustained Release 24 hr Active spironolactone (ALDACTONE) 50 mg Oral Tablet Active fUROsemide (LASIX) 40 mg Oral TabletIndications:Depen dent edema Take 1 Tab by mouth daily. Active gabapentin (NEURONTIN) 600 mg Oral TabletIndications:DDD (degenerative disc disease), lumbar Take 1 Tab by mouth 3 times daily. Active atorvastatin (LIPITOR) 80 mg Oral TabletIndications:Pure hypercholesterolemia Take 1 Tab by mouth daily. 30 Tab 2 Active roPINIRole (REQUIP) 2 mg Oral TabletIndications:Restl ess legs syndrome (RLS) Take 1 Tab by mouth nightly. 30 Tab Active losartan (COZAAR) 50 mg Oral TabletIndications:DDD (degenerative disc disease), lumbar Take 1 Tab by mouth daily. 017 Active Active Problems Patient Care Coordination No te Formatting of this note migh t be different from the original. ctsa 04/03/12 Benzo 04/03/12 [facility]s 04/03/12 soapp 04/03/12 = 7 cathy 10/31/12 05/02/13([id number]) UDS 05/02/13 Problem Noted Date Diagnosed Date DDD (degenerative disc disease) 01/01/2012 RLS (restless legs syndrome) 07/24/2011 Depression 04/07/2010 GERD (gastroesophageal reflux disease) 0 Chronic airway obstruction, not elsewhere classi fied 08/18/2009 Esophageal reflux 08/18/2009 Generalized anxiety disorder 08/18/2009 Insomnia, unspecified 08/18/2009 Allergic rhinitis, cause unspecified 08/18/2009 Fluid overload 08/18/2009 Unspecified essential hypertension 08/18/2009 Other and unspecified hyperlipidemia 08/18/2009 Dissociative identity disorder 08/18/2009 Peripheral vascular disease, unspecified 010 Resolved Problems Problem Noted Date Diagnosed Date Resolved Date Diabetes mellitus type 2, controlled 08/18/2009 04/12/2017 Immunizations Immunization Administration Dates Next Due Influenza Vaccine, Unspecifi ed Formulation 05/02/2013,07/04/2012,06/09/2011,05/09 Pneumococcal Polysaccharide 23 Valent 06/09/2011 Surgical History Surgery Date Site/Laterality Comments HYSTERECTOMY KNEE ARTHROSCOPY 07/30/1994 - 07/29/1995 R knee THYROID LOBECTOMY 07/30/1984 - 07/29/1985 TONSILLECTOMY CYST REMOVAL Right wrist KNEE ARTHROPLASTY Right WRIST SURGERY Right CATARACT EXTRACTION EXTRACAP SULAR W/ INTRAOCULAR LENS IMPLANTATION Bilateral PACEMAKER INSERTION 03/30/2014 - 04/28/2014 Medical History Medical History Date Comments Depression GERD (gastroesophageal reflux disease) Hypertension Hyperlipidemia Pacemaker 2013 Sick sinus syndrome (HCC) COPD (chronic obstructive pulmonary disease) (HC C) Asthma Degenerative disc disease, lumbar Osteoporosis RLS (restless legs syndrome) Bradycardia Cataract bilateral Learning disability Family History Medical History Relation Name Comments Colon Cancer Brother 1 Diabetes Brother 2 Ganesh Heart Disease Brother 2 Ganesh Diabetes Brother 3 Juve Heart Disease Brother 3 Juve Heart Disease Daughter Hypertension Daughter Diabetes Father Heart Attack Father Heart Disease Father Lung Cancer Mother mets to brain Relation Name Status Comments Brother 1 Brother 2 Ganesh Alive Brother 3 Juve Alive Daughter Alive Father Mother Social History Tobacco Use Types Packs/Day Years Used Date Smoking Tobacco: Every Day Cigarettes 0.5 40 Smokeless Tobacco: Never Tobacco Cessation:Ready to Q uit: No; Counseling Given: Yes Alcohol Use Standard Drinks/Week Comments No 0 (1 standard drink = 0.6 oz pur e alcohol) Comments No Sex and Gender Information Value Date Recorded Sex Assigned at Not on file Legal Sex Female 5:23 AM EDT Gender Identity Not on file Sexual Orientation Not on file Obstetrics History Last Filed Vital Signs Vital Sign Reading Time Taken Comments Blood Pressure 110/78 04/12/2017 1:56 PM EDT Pulse 71 04/12/2017 1:56 PM EDT Temperature 36.5 C (97.7 F) 04/12/2017 1:56 PM EDT Respiratory Rate 16 04/12/2017 1:56 PM EDT Oxygen Saturation 93% 04/12/2017 1:56 PM EDT Inhaled Oxygen Concentration - - Weight 99.3 kg (219 lb) 04/12/2017 1:56 PM EDT Height 175.3 cm (5' 9 ) 04/12/2017 1:56 PM EDT Body Mass Index 32.34 04/12/2017 1:56 PM EDT Plan of Treatment Health Maintenance Due Date Last Done Comments Annual Wellness Exam 1956 DTaP/TDaP/Td (1 - Tdap) 1972 Cologuard 1998 Colon Cancer Screening 1998 Colonoscopy 1998 FIT 1998 Sigmoidoscopy 1998 Virtual Colonography 1998 Low Dose Lung Cancer Screening 2003 Zoster (1 of 2) 2003 Pneumococcal Vaccine 50+ (2 of 2 - PCV) 06/09/2012 06/09/2011 RSV or 60+ (1 - Risk 60-74 years 1-dose series) 2013 Bone Density Screening 2018 Breast Cancer Screening 04/02/2019 04/02/20 17, 03/07/2017, 06/20/2011, Additional history exists COVID-19 Vaccine ( season) 2024 Influenza Vaccine (#1) 2025 3, 07/04/2012, 06/09/2011, Additional history exists Hepatitis C Screening Completed 04/12/2017 Hepatitis B Vaccine Aged Out No longe r eligible based on patient's age to complete this topic Meningococcal B Vaccine Aged Out No l onger eligible based on patient's age to complete this topic Goals Goal Patient Goal Type Associated Problems Recent Progress Patient-Stated? Author Blood Pressure < 140/90 Blood Pressure 110/78(2016 1:56 PM EDT) No Rusty Pretty MD BMI (Calculated) < 30 General 32.4(04/12/20 1:56 PM EDT) No Carmelita Cardoso RMA Maintain a healthy diet, exercise regularly and maintain an ideal body weight General No Carmelita Cardoso RMA Stay Tobacco Free Lifestyle No Carmelita Cardoso RMA HEMOGLOBIN A1C < 7.0 Result Component 6(01/02/2013 2:23 PM EDT) No Rusty Pretty MD HDL > 40 Result Component 37(04/12/2017 3:13 PM EDT) Rusty Solis MD LDL CALC < 100 Result Component 85(04/12/2017 3:13 PM EDT) No Rusty Pretty MD Procedures Procedure Name Priority Date/Time Associated Diagnosis Comments HCV ANTIBODY SCREEN W/ REFLEX Routine 04/12/2017 3:13 PM EDT Need for hepatitis C screening test from Last 3 Months or Most Recently Relevant to Health Maintenance Results * HEPATITIS C ANTIBODY - SCREENING (04/12/2017 3:13 PM EDT) Hep C Ab Negative Negative [facility] Blood specimen (specimen) 04/12/2017 3:13 PM EDT 04/12/2017 7:28 PM EDT us Jahaira Purdy ANCHOR TACKER HEMATOLOGY ORDERABLES Final Re sult [facility] [address] [place] [address] from Last 3 Months or Most Recently Relevant to Health Maintenance Insurance [employer] [address]
--- NOTE | 2025-03-05 19:36 | PC.NURSE ---
Pt awake alert and oriented Skin pink warm and dry Resp slightly labored Dyspnic on excertion. Wheezes auscultated through out posterior lung powers. Pt in SR per continuous heart monitor. Abd rondeed soft and non tender. BS x4 positive
--- NOTE | 2025-03-05 19:37 | XR_ITS ---
PROCEDURE INFORMATION: Exam: XR Chest Exam date and time: 03/05/2025 8:31 PM Age: 69 years old Clinical indication: Shortness of breath; Additional info: SOA TECHNIQUE: Imaging protocol: Radiologic exam of the chest. Views: 1 view. COMPARISON: CR XR CHEST 2V 01/05/2025 1:30 PM FINDINGS: Tubes, catheters and devices: Pacemaker is in expected position. Lungs: Lungs are mildly hyperinflated but are otherwise clear. Pleural spaces: No pleural effusion. No pneumothorax. Heart/Mediastinum: Normal heart size. Bones/joints: Unremarkable. IMPRESSION: 1. Mild pulmonary hyperinflation. 2. No acute findings.
--- NOTE | 2025-03-05 19:37 | CT_ITS ---
PROCEDURE INFORMATION: Exam: CT Lumbar Spine Without Contrast Exam date and time: 03/05/2025 8:37 PM Age: 69 years old Clinical indication: Other: Back pain, left-sided radicular pain TECHNIQUE: Imaging protocol: Computed tomography of the lumbar spine without contrast. Radiation optimization: All CT scans at this facility use at least one of these dose optimization techniques: automated exposure control; mA and/or kV adjustment per patient size (includes targeted exams where dose is matched to clinical indication); or iterative reconstruction. COMPARISON: CT LUMBAR SPINE WO CON 06/23/2019 12:26 PM FINDINGS: Bones/joints: Mild discogenic degenerative changes. Advanced facet arthrosis and hypertrophy in the lower lumbar spine. Milder facet degenerative changes at other levels. Normal vertebral body alignment. No acute fracture or bone lesions. Soft tissues: Unremarkable. IMPRESSION: 1. Degenerative spondylosis as above. 2. No acute fracture or malalignment.
--- NOTE | 2025-03-05 19:38 | ED_ITS ---
<Statement entered by Maddison Anderson DO - 03/06/25 00:03> I was consulted by the JOY, and we discussed the complexity of problems being addressed. I approve the treatment and management plan for this patient's care in the emergency department, thus performing a substantial portion of the medical decision making. Maddison Anderson DO Discharge Plan Disposition Patient Disposition: Admitted Condition: Fair Clinical Impressions Clinical Impression: COPD exacerbation, Acute hypoxic on chronic hypercapnic respiratory failure Low back pain Qualifiers: Chronicity: chronic Back pain laterality: bilateral Sciatica presence: with sciatica Sciatica laterality: sciatica of right side Qualified Code(s): M54.41 - Lumbago with sciatica, right side Discharge ED Provider: Maddison Anderson General Adult HPI General Chief complaint: PAIN Stated complaint: Back pain,SOA,cough Time Seen by Provider: 03/05/25 19:26 Mode of Arrival: Wheelchair Source of Information: Patient Description of Symptoms (Recalled from ER Triage Doc. by RN): Pt states she has had back pain and urgency for past week. History of Present Illness HPI narrative: 69-year-old female presents the emergency department with a 1 week history of low back pain, urinary frequency and hesitancy, denies any overt dysuria, denies any fever chills but states she is felt bad for a week , does admit to fatigue, denies any chest pain, but does admit to shortness of breath and productive cough that is somewhat increased outside of her baseline, she ollows with pulmonology for COPD, is currently on 3 to 4 L nasal cannula daily, admits to some nausea and vomiting this week, any constipation diarrhea, denies any urinary bladder or bowel dysfunction, denies any saddle anesthesia, admits to some radicular pain down her left leg at times, has followed with a pain management for this, does have history of degenerative disc disease of the lumbar spine, denies any numbness or tingling, denies any upper or lower extremity weakness, has had some pain limited range of motion in her back, and did have remote fall in the shower several weeks ago. She is a current everyday smoker, denies any alcohol or drug use, initial triage vitals are unremarkable, the exception of patient not being on her baseline nasal cannula when she came in, initial ox saturation was 88%, thus placed on 4 L nasal cannula with improvement. Other past medical history is consistent with hyperlipidemia, hypertension, anxiety/depression, T2DM, GERD, restless leg syndrome, patient is on anticoagulation therapy with Xarelto, CHF, cardiac pacemaker in situ, of note was seen by her primary care provider this week for low back pain with left- sided sciatica was given IM steroid injection as well as methylprednisone Dosepak. Please note that above description of symptoms, in this electronic medical record under categorization of recalled from ER triage doctor by RN are reflective of an initial nursing assessment, however, is not reflective of my full history and physical exam that was personally taken and clarified. Consequentially, this preceding description of symptoms, which may include the patient's categorized chief complaint in the EMR, do not reflect my personal clinical impression, and the ultimate description of history of present illness and patient stated complaints should be deferred to this section of the note. Unless stated otherwise or congruent with this section of the note, additional signs, symptoms, or incongruence should be interpreted as inaccurate with my clinical impression. Related Data Home Medications ?Medication ?Instructions ?Recorded ?Confirmed pantoprazole 40 mg tablet,delayed 40 mg PO DAILY 04/1703/04/25 release atorvastatin 80 mg tablet 80 mg PO DAILY 12/23/2401/21 budesonide 0.5 mg/2 mL suspension 0.5 mg inhalation TI D 12/23/24 03/04/25 for nebulization (Pulmicort) diltiazem HCl 240 mg 240 mg PO DAILY 12/23/2401/21 capsule,extended release 24 hr furosemide 40 mg tablet 40 mg PO BID 12/23/24 lisinopril 2.5 mg tablet 2.5 mg PO DAILY 12/23/2401/21 rivaroxaban 20 mg tablet (Xarelto) 20 mg PO QPMWITHMEA L 12/23/24 03/04/25 Previous Rx's ?Medication ?Instructions ?Recorded buspirone 10 mg tablet 10 mg PO BID 90 days #180 ta bs 08/07/24 fluoxetine 20 mg capsule 20 mg PO BID 90 days #180 ca ps 08/07/24 ipratropium 0.5 mg-albuterol 3 mg 3 ml inhalation QID PRN shortness 08/28/24 (2.5 mg base)/3 mL nebulization of breath or wheezing 90 days #270 soln mL pregabalin 25 mg capsule 25 mg PO HS #14 caps 5 prednisone 20 mg tablet 40 mg (2 x 20 mg) PO DAILY 3 days 12/24/24 #6 tabs tramadol 50 mg tablet 50 mg PO Q6HP PRN Moderate T o 12/24/24 Severe Pain (4-10) 3 days #11 tabs fluticasone propionate 50 See Rx Instructions .Route 0 01/06/25 mcg/actuation nasal .COMPLEX #16 grams spray,suspension bisoprolol fumarate 10 mg tablet 10 mg PO BID 90 days #180 tabs 01/29/25 magnesium oxide 400 mg (241.3 mg 400 mg PO BID #60 tab s 01/29/25 magnesium) tablet metformin 500 mg tablet 1,000 mg (2 x 500 mg) PO BID #120 01/29/25 tabs spironolactone 25 mg tablet See Rx Instructions .Route 01/29/25 .COMPLEX #90 tabs insulin glargine 100 unit/mL (3 See Rx Instructions .R oute 02/16/25 mL) subcutaneous pen (Basaglar .COMPLEX #15 mL KwikPen U-100 Insulin) pen needle, diabetic 32 gauge x #100 ea 02/16/25 1/4 montelukast 10 mg tablet 10 mg PO PM #30 tabs 5 ropinirole 0.25 mg tablet 0.5 mg (2 x 0.25 mg) PO HS # 60 tabs 03/02/25 naproxen 500 mg tablet 500 mg PO BID #30 tabs 03/04 prednisone 20 mg tablet 20 mg PO BID 5 days #10 tabs 03/04/25 diclofenac sodium 1 % topical gel 2 g topical QID #50 grams 03/05/25 Allergies Allergy/AdvReac Type Severity Reaction Status Date / Time verapamil Allergy Severe Rash Verified 03/04/25 15:01 Iodine and Iodide Containing Allergy Mild Rash Verified 03/04/25 15:01 Produc Penicillins (PENICILLINS) Allergy Unknown I-RASH Verified 03/04/25 15:01 Sulfa (Sulfonamide Allergy Unknown NA-NAUSEA/V Verified 03/04/25 15:01 Antibiotics) (SULFA OMITING (SULFONAMIDE ANTIBIOTICS)) [facility] Disclaimer: The information contained in this section may have been updated after the patient was seen, as this information can be updated by other users. Medical History Acute on chronic respiratory failure with hypoxia and hypercapnia Chronic, continuous use of opioids Overuse of medication Pneumonia Pre-operative cardiovascular examination Pacemaker lead malfunction Pacemaker at end of battery life Vulvar cyst Candidal intertrigo Bronchiectasis, non-tuberculous COPD (chronic obstructive pulmonary disease) Acute exacerbation of chronic obstructive pulmonary disease Stopped smoking with greater than 30 pack year history History of asthma Family history of asthma Allergic rhinitis, unspecified History of 2019 novel coronavirus disease (COVID-19) COPD (chronic obstructive pulmonary disease) Acute respiratory failure with hypoxia COPD exacerbation Encounter for screening for malignant neoplasm of lung in current smoker with 30 pack year history or greater Stopped smoking with greater than 30 pack year history History of asthma Family history of asthma Allergic rhinitis History of 2019 novel coronavirus disease (COVID-19) COPD exacerbation Hyperlipemia PAF (paroxysmal atrial fibrillation) COPD (chronic obstructive pulmonary disease) On statin therapy Diabetes (~06/2020) Cardiac pacemaker in situ Fatigue HHD (hypertensive heart disease) Surgical History History of tonsillectomy History of cholecystectomy Hx of tonsillectomy History of arthroplasty of right knee Hx of cholecystectomy Family History Other Cancer Coronary artery disease Diabetes Hyperlipidemia Hypertension Social History Smoking Status: Current every day smoker tobacco type: cigarettes packs per day: 1 smoking status stop date: 09/12/2022 second hand exposure: Yes alcohol intake: never substance use type: denies use current occupational status: disabled and other Travel in the last 8 weeks?: None household members: none housing: house marital status: number of children: 0 current occupational exposures/hazards: No caffeine: Yes Have you lived/traveled outside [place] in past 30 days?: No Contact w/someone who lives/traveled outside [place] past 30 days?: No Exposure to someone with infectious disease in past 14 days?: No Do you have a fever (greater than 100.4 F or 38 C)?: No Have you tested positive for COVID-19?: No Exposed to someone with COVID-19 in past 14 days?: No Do you have a sore throat?: No Do you have a cough?: No Do you have any weakness?: No Do you have any diarrhea?: No Are you experiencing any unusual bleeding?: No Do you have any muscle aches/pain?: No Do you have any abdominal pain?: No Are you experiencing loss of taste or smell?: No Other Medical History Have you received the Flu Vaccine for this season: No Have you received the Pneumonia Vaccine: Yes ROS Obtained: Yes All systems reviewed & no additional complaints except as documented Physical Exam General General appearance: alert and in no apparent distress Head Head exam: atraumatic and normocephalic Eye Eye exam: Present PERRL and EOMI ENT ENT exam: Present mucous membranes moist Neck Neck exam: Present normal inspection Chest Chest inspection: Present normal inspection and symmetric chest wall rise Respiratory Respiratory exam: Present wheezes, accessory muscle use, prolonged expiratory phase and other (Audible wheezes heard at the bedside, mild crackles and moderate wheezes throughout bilateral lung powers); Absent normal lung sounds bilaterally or respiratory distress Cardiovascular Cardiovascular exam: Present regular rate and normal rhythm Abdominal Exam Abdominal exam: Present soft; Absent tenderness, guarding, rebound or rigidity Extremities Exam Extremities exam: Present normal inspection and other (Neurovascular intact with extremity to command.) Back Exam Back exam: Present tenderness, paraspinal tenderness and straight leg raise (L); Absent full ROM or vertebral tenderness Comment: Mild left-sided paraspinal tenderness palpation, no spinal tenderness palpation of the L-spine, negative C-spine paraspinal and T-spine paraspinal spinal tenderness palpation Neurological Exam Neurological exam: Present alert, oriented X3 and other (Patient is 5 out of 5 strength in the bilateral lower and upper extremities, moves extremities to command, positive straight leg test on the left, no gross sensation deficit.) Psychiatric Psychiatric exam: Present normal affect Skin Skin exam: Present warm and dry Medical Decision Making Medical Records Medical records reviewed: Yes I reviewed the patient's medical records. Screening: Per USPSTF and CDC recommendations, given the prevalence of disease in our region, it is our hospital?s policy to screen for HIV and viral Hepatitis for all patients aged 18 and over and those with ongoing risk factors. Anibal Inquiry Pt receiving controlled substance: No Anibal was queried for this patient: No Vital Signs: 03/05/25 19:27 03/05/25 19:31 03/05/25 19:51 Temperature 98.5 F Temperature Source Oral Pulse Rate 63 71 Pulse Rate [Right Brachial] 64 Respiratory Rate 20 16 Blood Pressure 134/63 131/56 L Blood Pressure [Right Arm] 134/63 Blood Pressure Mean 83 92 Blood Pressure Mean [Right Arm] 86 Blood Pressure Source [Right Arm] Automatic Cuff Blood Pressure Position [Right Arm] Supine 02 Sat by Pulse Oximetry 98 88 L 96 Oxygen Delivery Method Room Air 03/05/25 20:00 03/05/25 21:00 03/05/25 21:15 Temperature Temperature Source Pulse Rate 68 71 Pulse Rate [Right Brachial] Respiratory Rate 17 24 Blood Pressure 123/57 L 128/57 L Blood Pressure [Right Arm] Blood Pressure Mean 79 87 Blood Pressure Mean [Right Arm] Blood Pressure Source [Right Arm] Blood Pressure Position [Right Arm] 02 Sat by Pulse Oximetry 96 92 L Oxygen Delivery Method 03/05/25 21:30 03/05/25 21:31 03/05/25 21:45 Temperature Temperature Source Pulse Rate 68 Pulse Rate [Right Brachial] Respiratory Rate 21 19 Blood Pressure 129/62 Blood Pressure [Right Arm] Blood Pressure Mean 84 Blood Pressure Mean [Right Arm] Blood Pressure Source [Right Arm] Blood Pressure Position [Right Arm] 02 Sat by Pulse Oximetry 95 Oxygen Delivery Method Lab Data Lab results reviewed: Yes I reviewed the patient's lab results. Lab Results 03/05/25 19:35: WBC 21.3 H*, RBC 4.78, Hgb 13.1, Hct 41.4, MCV 86.6, MCH 27.4, M CHC 31.6 L, RDW 14.7, Plt Count 250, MPV 11.8 H, Neut % (Auto) 90.5 H, Lymph % (Auto) 5.7 L, [place] % (Auto) 2.9, Eos % (Auto) 0.0 L, Baso % (Auto) 0.1, Neut # (Auto) 19.2 H, Lymph # (Auto) 1.2, [place]yer # (Auto) 0.6, Eos # (Auto) 0.0, Baso # (Auto) 0.0, VBG pH 7.35, VBG pCO2 43.5, VBG pO2 67.7 H, VBG HCO3 23.5, VBG Total CO2 24.9, VBG O2 Saturation 92.3 H, VBG Base Excess -2.1, VBG Lactic Acid 3.8 H, Sodium 137, Potassium 4.2, Chloride 100, Carbon Dioxide 24, Anion Gap 17.2 H, B UN 33 H, Creatinine 1.00, Estimated Creat Clear 81, Estimated GFR 55 L, Est GFR ( Amer) 66, Glucose 311 H, Calcium 10.0, Magnesium 1.5 L, Total Bilirubin 0.4, AST 29, ALT 26, Alkaline Phosphatase 95, Troponin I < 0.01, NT-Pro-B Natriuret Pep 332 H, Total Protein 6.8, Albumin 4.4, Globulin 2.4, Albumin/Globulin Ratio 1.8 03/05/25 19:43: SARS-CoV-2 (PCR) Not detected, Influenza A Untype (PCR) Not detected, Influenza Type B (PCR) Not detected 03/05/25 19:49: Urine Color Yellow, Urine Appearance Clear, Urine pH 6.0, Ur Specific [place] 1.010, Urine Protein Negative, Urine Glucose (UA) 3+, Urine Ketones Negative, Urine Blood Trace-i, Urine Nitrate Negative, Urine Bilirubin Negative, Urine Urobilinogen 0.2, Ur Leukocyte Esterase Negative, Urine RBC 3-5, Urine WBC 3-5, Ur Squamous Epith Cells 5-10, Urine Bacteria 2+ 03/05/25 20:37: Lactate 3.7 H 03/05/25 19:35 03/05/25 19:35 Orders (Tests/Meds): ED MEDICATIONS Generic Name Dose Route Start Last Admin Trade Name Freq PRN Reason Stop Dose Admin Lactated Ringer's 1,000 mls @ 999 mls/hr 03/05/25 21:17 03/05/25 21:54 Lactated Ringer's 1000 Ml Bag IV 03/05/25 22:17 999 mls/hr .Q1H1M ONE Administration Discontinued Medications Generic Name Dose Route Start Last Admin Trade Name Freq PRN Reason Stop Dose Admin Albuterol/Ipratropium 6 ml 03/05/25 19:49 03/05/25 20:04 Ipratropium/Albuterol 3 Ml Neb IH 03/05/25 19:50 6 ml ONCE ONE Administration Magnesium Sulfate 2 gm in 50 mls @ 50 mls/hr 03/05/25 20:31 03/05/25 20:46 Magnesium Sulfate 2gm/50ml Premix IV 03/05/25 21:30 50 mls/hr ONCE ONE Administration Ceftriaxone Sodium 1 gm/ 50 mls @ 100 mls/hr 03/05/25 20:51 03/05/25 21:07 Sodium Chloride IV 03/05/25 21:20 100 mls/hr ONCE ONE Administration Azithromycin 500 mg/ Sodium 250 mls @ 250 mls/hr 03/05/25 21:21 Chloride IV 03/05/25 21:22 ONCE ONE Iopamidol 75 ml 03/05/25 20:39 03/05/25 20:40 Iopamidol-370 (76%);100ml Bottle IV 03/05/25 20:40 75 ml ONCE ONE Administration Methylprednisolone Sodium Succinate 125 mg 03/05/25 19:50 03/05/25 20:04 Methylprednisolone Sod Succ 125mg Vial IV 03/05/25 19:51 125 mg ONCE ONE Administration Morphine Sulfate 4 mg 03/05/25 19:43 03/05/25 19:57 Morphine 4mg/Ml Syringe IV 03/05/25 19:44 4 mg ONCE ONE Administration Morphine Sulfate 4 mg 03/05/25 21:33 03/05/25 21:43 Morphine 4mg/Ml Syringe IV 03/05/25 21:34 4 mg ONCE ONE Administration Ondansetron HCl 4 mg 03/05/25 19:43 03/05/25 19:56 Ondansetron 4mg/2ml Vial IV 03/05/25 19:44 4 mg ONCE ONE Administration Sodium Chloride 10 ml 03/05/25 20:39 03/05/25 20:40 Sodium Chloride 0.9% 10ml Syr (Rad Only) IV 03/05/25 20:40 10 ml ONCE ONE Administration ORDERS Category Date Time Status CT abdomen pelvis w con Stat Cat Scan 03/05/25 19:[address] chest wo con Stat Cat Scan 03/05/25 21:[address] lumbar spine wo con Stat Cat Scan 03/05/25 19:37 Completed XR chest portable Stat Exams 03/05/25 19:37 Completed Complete Blood Count Auto Diff Stat Lab 03/05/25 19:35 Completed Comprehensive Metabolic Panel Stat Lab 03/05/25 19:35 Completed Full Resp Panel w/COVID ([facility]) Routine Lab 03/05/25 21:32 Ordered Lactic Acid Stat Lab 03/05/25 20:37 Completed Magnesium Stat Lab 03/05/25 19:35 Completed NT Pro Brain Natriuretic Pep. Stat Lab 03/05/25 19:35 Completed Rapid PCR Covid and Flu A/B Stat Lab 03/05/25 19:43 Completed Troponin I Q3H Lab 03/05/25 22:45 Ordered Troponin I Q3H Lab 03/06/25 01:45 Ordered Troponin I Stat Lab 03/05/25 19:35 Completed Urinalysis and Microscopic Stat Lab 03/05/25 19:49 Completed Blood Culture Stat Micro 03/05/25 21:35 Received Urine Culture Stat Micro 03/05/25 19:49 Received VBG [Venous Blood Gas] Stat RT 03/05/25 19:35 Completed Medical Decision Narrative: 69-year-old female presents to the emergency department with lower back pain, urinary frequency, shortness of breath and coughing for 1 week, differential diagnose include but not limited to, acute lumbar sacral strain, degenerative disease of the lumbar spine, COPD exacerbation, CHF exacerbation, viral URI, viral bronchitis, cardiac arrhythmia, electrolyte disturbance, lumbar radiculopathy, acute UTI, acute pyelonephritis, nephrolithiasis, urolithiasis, among others. I discussed this patient's case with the attending physician Will obtain CBC CMP lactic acid level, magnesium level, proBNP, PCR COVID flu, troponin, urinalysis, VBG, CXR, CT without contrast, CT ab pelvis with contrast. As well as EKG, will give 4 mg IV morphine and 4 mg of Zofran for nausea and pain, will also give 6 mL DuoNeb as well as 125 mg IV methylprednisone for wheezing and respiratory symptomatology. VBG is notable for elevated PO2 of 16.7, venous lactic acid level is elevated at 3.8, normal pH, normal CO2 normal bicarb. CMP is notable for anion gap of 17.2, hyperglycemia at 311 CBC is notable for leukocytosis 21.3, this could be due to the patient recently started p.o. glucocorticoids CMP is notable for normal troponin at less than 0.01, magnesium level is 1.5, will give will give 2 g IV magnesium for COPD exacerbation and hypomagnesia. UA is notable for negative leukocyte esterase, negative nitrites, trace hematuria, 2+ bacteria. COVID-19 is negative influenza is negative will start 1 g IV ceftriaxone for infection prophylaxis. Lactic acidosis at 3.7, will give 1 L LR IV and obtain blood cultures and treat for sepsis. I reviewed the patient's CT lumbar spine without contrast along the corresponding radiologic report, degenerative spondylosis, no acute fracture or malalignment. I reviewed the patient's CT abdomen pelvis with contrast along the corresponding radiologic report, mild biliary ductal dilation no obstructive biliary tract calculus or mass, stable right adrenal adenoma, punctate calyceal stones in both kidneys, no hydronephrosis, small fat-containing umbilical hernia. I reviewed the patient's chest x-ray along the corresponding radiologic report, mild pulmonary hyperinflation, no acute findings. Will give 2 mg IV morphine, as well as 500 mg IV azithromycin to treat for COPD exacerbation versus pyelonephritis in the setting of the patient's bacteria in the urine, will also obtain CT chest without contrast. I discussed this patient's case with the hospitalist at approximately 9:30 PM, he is agreement with cardioversion plans for treatment plan for COPD exacerbation, sepsis, and possible UTI. Patient is in agreement with cardioversion plan/treatment plan. I discussed this patient's case with the patient's next of kin Mr. Anabell Stallings at approximately 9:38 PM, patient's next of kin is in agreement with the current admission plan/treatment plan. Critical Care Critical Care Time Critical Care Time: Yes Attestation: On 03/05/25, the high probability of a clinically significant, sudden or life threatening deterioration of the following system(s) required my full and direct attention, intervention and personal management. The time I documented below is in addition to time spent performing reported procedures but includes the following listed in this critical care notation. Total Time Total Critical Care Time: 30
[2025-03-05 19:49] LABS: Coronavirus 19, PCR Not Detected (NotDetected); Influenza A, PCR Not Detected (NotDetected); Influenza B, PCR Not Detected (NotDetected)
[2025-03-05 19:52] LABS: Hematocrit 41.4 % (37.0-47.0); Hemoglobin 13.1 g/dL (12.2-16.2); Immature Granulocytes % 0.8 %; Mean Corpuscular HGB Conc 31.6 g/dL (31.8-35.4); Mean Corpuscular Hemoglobin 27.4 pg (27.0-31.2); Mean Corpuscular Volume 86.6 fl (81-99); Nucleated Red Blood Cells % 0 %; Platelet Count 250 K/mm3 (142-424); Red Blood Count 4.78 M/mm3 (4.20-5.40); Red Cell Distribution Width-SD 46.8 fL; White Blood Count 21.3 K/mm3 (4.8-10.8)
--- NOTE | 2025-03-05 19:55 | CT_ITS ---
PROCEDURE INFORMATION: Exam: CT Abdomen And Pelvis With Contrast Exam date and time: 03/05/2025 8:40 PM Age: 69 years old Clinical indication: Abdominal pain; Additional info: Lower abdominal pain/back pain and flank pain lft TECHNIQUE: Imaging protocol: Computed tomography of the abdomen and pelvis with contrast. Radiation optimization: All CT scans at this facility use at least one of these dose optimization techniques: automated exposure control; mA and/or kV adjustment per patient size (includes targeted exams where dose is matched to clinical indication); or iterative reconstruction. Contrast material: ISOVUE; Contrast volume: 75 ml; Contrast route: IV; COMPARISON: CT ABDOMEN PELVIS WO CON 03/08/2019 3:07 PM FINDINGS: Liver: Unremarkable. No mass. Gallbladder and biliary ducts: Status post cholecystectomy. Common bile duct is mildly dilated. No obstructing calcified biliary stones. Pancreas: Normal. No ductal dilation. Spleen: Normal. No splenomegaly. Adrenal glands: 1.6 x 1.2 cm fat containing right adrenal nodule is unchanged. Normal left adrenal gland. Kidneys and ureters: Small simple cysts in the right kidney. Punctate calyceal stones in both kidneys. No hydronephrosis. Stomach and bowel: Unremarkable. No obstruction. No inflammatory changes. Appendix: No evidence of appendicitis. Intraperitoneal space: No free air. No abscess or free fluid. Vasculature: Unremarkable. No aortic aneurysm or dissection. Lymph nodes: Unremarkable. No enlarged lymph nodes. Urinary bladder: Unremarkable as visualized. Reproductive: Unremarkable as visualized. Bones/joints: Advanced degenerative changes in the spine and pelvis. Soft tissues: 1.9 cm fat containing umbilical hernia. IMPRESSION: 1. Mild biliary duct dilation. No obstructing biliary tract calculus or mass. 2. Stable right adrenal adenoma. 3. Punctate calyceal stones in both kidneys. No hydronephrosis. 4. Small fat containing umbilical hernia. COMMENTS: Consistent with the [employer]'s Incidental Findings Committee white paper (J [employer] Whit Radiol 2018): Any incidental renal lesion less than 1 cm or classified as too small to characterize, or any incidental cystic renal lesion characterized as simple-appearing, is likely benign. No follow-up imaging is recommended for these lesions per consensus recommendations based on imaging criteria.
[2025-03-05 19:56] LABS: VBG HCO3 23.5 mmol/L (23-30); VBG PCO2 43.5 mmol/L (35-51); VBG PH 7.35 mmol/L (7.31-7.41); VBG PO2 67.7 mmol/L (28-40)
[2025-03-05] MEDS: ONDANSETRON 4MG/2ML VIAL 4 MG IV (19:56)
[2025-03-05 19:57] LABS: Microscopic, Urine URINE MICROSCOPIC (MICROSCOPIC)
[2025-03-05 19:57] LABS: Lactate Venous 3.8 mmol/L (0.4-2.0)
[2025-03-05] MEDS: MORPHINE 4MG/ML SYRINGE 4 MG IV ×2 (19:57→21:43)
[2025-03-05 20:01] LABS: Bilirubin,Urine Negative (Negative); Color,Urine YELLOW (Yellow); Glucose,Urine (UA) 3+ (Negative); Ketones,Urine Negative (Negative); Leukocyte Esterase,Urine Negative (Negative); PH,Urine 6.0 (5.0-8.5); Protein,Urine Negative (Negative); Specific Gravity, Urine 1.010 (1.005-1.030); Urobilinogen,Urine 0.2 EU/dl (0.2)
[2025-03-05 20:02] LABS: Albumin Level 4.4 g/dl (3.5-5.0); Chloride 100 mmol/L (98-107); Potassium 4.2 mmoL/L (3.5-5.1); Sodium 137 mmol/L (136-145)
--- NOTE | 2025-03-05 20:03 | ECG_ITS ---
APPROVED REPORT Exam: Resting ECG HR:69 bpm ECG Measurements Heart Rate 69 AXES SD 161 P 114 QRSd 100 QRS 63 QT 379 T 66 QTc 399 Conclusion Atrial paced rate of [address] or T wave changes concerning for ischemia Electronically signed by : Maddison Anderson, 03/06/2025 01:04:23
[2025-03-05] MEDS: IPRATROPIUM/ALBUTEROL 3 ML NEB 6 ML IH (20:04)
[2025-03-05] MEDS: METHYLPREDNISOLONE SOD SUCC 125MG VIAL 125 MG IV (20:04)
[2025-03-05 20:05] LABS: Alanine Aminotransferase 26 U/L (12-78); Albumin/Globulin Ratio 1.8 (1.1-1.8); Alkaline Phosphatase 95 U/L (38-126); Anion Gap 17.2 mEq/L (5-15); Aspartate Amino Transferase 29 U/L (14-36); Bilirubin,Total 0.4 mg/dl (0.2-1.3); Blood Urea Nitrogen 33 mg/dl (7-17); Calcium 10.0 mg/dl (8.4-10.2); Carbon Dioxide 24 mmol/L (22.0-30.0); Creatinine Clearance Estimated 81 mL/min (50-200); Creatinine,Serum 1.00 mg/dl (0.52-1.04); Estimated Glomerular Filt Rate 55 ml/min (>60); GFR (African American) 66 ML/MIN (>60); Globulin 2.4 g/dL (1.3-3.2); Glucose 311 mg/dl (74-100); Total Protein,Serum 6.8 g/dl (6.3-8.2)
[2025-03-05 20:06] LABS: Magnesium 1.5 mg/dl (1.6-2.3)
[2025-03-05 20:15] LABS: NT Pro Brain Natriuretic Pep. 332 pg/mL (0-125)
[2025-03-05 20:27] LABS: Troponin I < 0.01 ng/ml (0.00-0.034)
[2025-03-05 20:33] LABS: Bacteria,Urine 2+ /lpf
[2025-03-05] MEDS: SODIUM CHLORIDE 0.9% 10ML SYR (RAD ONLY) 10 ML IV (20:40)
[2025-03-05] MEDS: IOPAMIDOL-370 (76%);100ML BOTTLE 75 ML IV (20:40)
[2025-03-05] MEDS: MAGNESIUM SULFATE IN WATER 2 GM/50 ML PIGGYBACK IV (20:46)
--- NOTE | 2025-03-05 21:26 | CT_ITS ---
PROCEDURE INFORMATION: Exam: CT Chest Without Contrast; Diagnostic Exam date and time: 03/05/2025 9:35 PM Age: 69 years old Clinical indication: Shortness of breath; Additional info: Shortness of air, wheezes, sepsis TECHNIQUE: Imaging protocol: Diagnostic computed tomography of the chest without contrast. Radiation optimization: All CT scans at this facility use at least one of these dose optimization techniques: automated exposure control; mA and/or kV adjustment per patient size (includes targeted exams where dose is matched to clinical indication); or iterative reconstruction. COMPARISON: CT CHEST WO CON 04/20/2024 1:51 PM FINDINGS: Tubes, catheters and devices: Pacemaker is present. Lungs: Mild emphysema and pulmonary hyperinflation. No airspace infiltrates or masses. Pleural spaces: Unremarkable. No pneumothorax. No pleural effusion. Heart: Normal heart size. Coronary arteries: Mild coronary artery atherosclerotic disease. Lymph nodes: No enlarged lymph nodes. Vasculature: No aortic aneurysm. Bones/joints: Mild degenerative spondylosis. Normal alignment. Soft tissues: Unremarkable. IMPRESSION: 1. No acute findings. 2. Mild emphysema. 3. Mild coronary artery atherosclerotic disease. COMMENTS: The presence of pulmonary emphysema on CT is an independent risk factor for lung cancer. In the absence of a history or active diagnosis of lung cancer, it is recommended that this patient with emphysema be evaluated for enrollment in a low dose CT lung cancer screening program.
--- NOTE | 2025-03-05 21:44 | PC.NURSE ---
Pt's BC drawn and sent to lab Pt medicated for pain
--- NOTE | 2025-03-05 21:47 | PC.NURSE ---
dana Horne RN called to notify of patient admission. room 216 assigned.
--- NOTE | 2025-03-05 21:49 | PC.NURSE ---
Report called to Rodney SOTO PT transported to inpatient unit via stretcher
[2025-03-05] MEDS: LACTATED RINGERS 1000ML 1,000 ML 999 ML IV (21:54)
--- NOTE | 2025-03-05 21:57 | EXP.HP ---
History of Present Illness *Admission Date: 03/05/25 *Reason for visit:: Shortness of breath, back pain, urinary frequency *History of present illness: Yaritza Stallings is a 69-year-old female with medical history significant for COPD (baseline 4 L), degenerative disc disease, left-sided radiculopathy, type 2 diabetes with neuropathy, HFpEF, hypertension, A-fib on Xarelto, GERD, anxiety/depression who presents with acute on chronic mid/low back pain, increased urinary frequency, and shortness of breath. She states she has a longstanding history of mid/low back pain which has become worse over the past 1 to 2 weeks. She notes chronic left-sided radiculopathy that is not any worse. She had a fall 3 days ago in her bathtub trying to reach for the soap without precipitating symptoms. She also notes 1 week of progressive shortness of breath with clear productive cough. However, she states she has been trying to wean her oxygen at home to 2 L from 4 L. She has been adherent to her inhalers, nebulizers but she cannot recall the medication names. She was evaluated by her PCP on 03/04/2025 for her low back pain and received IM Toradol, Decadron and given prednisone 40 mg for 5 days. Patient however states her shortness of breath has not gotten better, and continues to have back pain. Workup in the ED significant for WBC 21.3 (in the setting of recent steroid use), relatively normal VBG, lactic acid 3.8, AGAP 17.2, magnesium 1.5. UA somewhat suggestive for UTI. CT abdomen/pelvis without dissection/aneurysm but did show bilateral nephrolithiasis without obstruction, mild biliary ductal dilation, CT lumbar spine showed chronic advanced degenerative disc and facet arthropathy without acute findings. CT chest also without acute findings. On my evaluation, patient had increased work of breathing and moderate tenderness over the lower thoracic and upper lumbar spine which is worse than normal. Patient also noted left CVA tenderness though this seemed more radiation from her spine. She also had increased work of breathing with diffuse moderate wheezing requiring her baseline 4 L. Given elevated WBC, lactic acid, increased work of breathing with possible UTI meeting sepsis criteria, case discussed with ED provider and decision was made to admit patient for the same. [facility] Disclaimer: The information contained in this section may have been updated after the patient was seen, as this information can be updated by other users. Medical History Acute on chronic respiratory failure with hypoxia and hypercapnia Chronic, continuous use of opioids Overuse of medication Pneumonia Pre-operative cardiovascular examination Pacemaker lead malfunction Pacemaker at end of battery life Vulvar cyst Candidal intertrigo Bronchiectasis, non-tuberculous COPD (chronic obstructive pulmonary disease) Acute exacerbation of chronic obstructive pulmonary disease Stopped smoking with greater than 30 pack year history History of asthma Family history of asthma Allergic rhinitis, unspecified History of 2019 novel coronavirus disease (COVID-19) COPD (chronic obstructive pulmonary disease) Acute respiratory failure with hypoxia COPD exacerbation Encounter for screening for malignant neoplasm of lung in current smoker with 30 pack year history or greater Stopped smoking with greater than 30 pack year history History of asthma Family history of asthma Allergic rhinitis History of 2019 novel coronavirus disease (COVID-19) COPD exacerbation Hyperlipemia PAF (paroxysmal atrial fibrillation) COPD (chronic obstructive pulmonary disease) On statin therapy Diabetes (~06/2020) Cardiac pacemaker in situ Fatigue HHD (hypertensive heart disease) Surgical History History of tonsillectomy History of cholecystectomy Hx of tonsillectomy History of arthroplasty of right knee Hx of cholecystectomy Family History Other Cancer Coronary artery disease Diabetes Hyperlipidemia Hypertension Social History Smoking Status: Current every day smoker tobacco type: cigarettes packs per day: 1 smoking status stop date: 09/12/2022 second hand exposure: Yes alcohol intake: never substance use type: denies use current occupational status: disabled and other Travel in the last 8 weeks?: None household members: none housing: house marital status: number of children: 0 current occupational exposures/hazards: No caffeine: Yes Have you lived/traveled outside US in past 30 days?: No Contact w/someone who lives/traveled outside US past 30 days?: No Exposure to someone with infectious disease in past 14 days?: No Do you have a fever (greater than 100.4 F or 38 C)?: No Have you tested positive for COVID-19?: No Exposed to someone with COVID-19 in past 14 days?: No Do you have a sore throat?: No Do you have a cough?: No Do you have any weakness?: No Do you have any diarrhea?: No Are you experiencing any unusual bleeding?: No Do you have any muscle aches/pain?: No Do you have any abdominal pain?: No Are you experiencing loss of taste or smell?: No Other Medical History Have you received the Flu Vaccine for this season: No Have you received the Pneumonia Vaccine: Yes Meds Home Medications and Allergies Home Medications ?Medication ?Instructions ?Recorded ?Confirmed ?Type pantoprazole 40 mg tablet,delayed 40 mg PO DAILY 04/17/24 03/04/25 History release buspirone 10 mg tablet 10 mg PO BID 90 days #180 tabs 08/07/24 03/04/25 Rx fluoxetine 20 mg capsule 20 mg PO BID 90 days #180 caps 08/07/24 03/04/25 Rx ipratropium 0.5 mg-albuterol 3 mg 3 ml inhalation QID PRN shortness 08/28/24 03/04/25 Rx (2.5 mg base)/3 mL nebulization of breath or wheezing 90 days #270 soln mL pregabalin 25 mg capsule 25 mg PO HS #14 caps 11/26/24 03/04/25 Rx atorvastatin 80 mg tablet 80 mg PO DAILY 12/23/24 03/04/25 History budesonide 0.5 mg/2 mL suspension 0.5 mg inhalation TID 12/23/24 03/04/25 History for nebulization (Pulmicort) diltiazem HCl 240 mg 240 mg PO DAILY 12/23/24 03/04/25 History capsule,extended release 24 hr furosemide 40 mg tablet 40 mg PO BID 12/23/24 03/04/25 History lisinopril 2.5 mg tablet 2.5 mg PO DAILY 12/23/24 03/04/25 History rivaroxaban 20 mg tablet (Xarelto) 20 mg PO QPMWITHMEAL 12/23/24 03/04/25 History prednisone 20 mg tablet 40 mg (2 x 20 mg) PO DAILY 3 days 12/24/24 03/04/25 Rx #6 tabs tramadol 50 mg tablet 50 mg PO Q6HP PRN Moderate To 05/28/25 08/06/25 Rx Severe Pain (4-10) 3 days #11 tabs fluticasone propionate 50 See Rx Instructions .Route 01/06/25 03/04/25 Rx mcg/actuation nasal .COMPLEX #16 grams spray,suspension bisoprolol fumarate 10 mg tablet 10 mg PO BID 90 days #180 tabs 01/29/25 03/04/25 Rx magnesium oxide 400 mg (241.3 mg 400 mg PO BID #60 tabs 01/29/25 03/04/25 Rx magnesium) tablet metformin 500 mg tablet 1,000 mg (2 x 500 mg) PO BID #120 01/29/25 03/04/25 Rx tabs spironolactone 25 mg tablet See Rx Instructions .Route 01/29/25 03/04/25 Rx .COMPLEX #90 tabs insulin glargine 100 unit/mL (3 See Rx Instructions .Route 02/16/25 03/04/25 Rx mL) subcutaneous pen (Basaglar .COMPLEX #15 mL KwikPen U-100 Insulin) pen needle, diabetic 32 gauge x #100 ea 02/16/25 03/04/25 Rx 1/4 montelukast 10 mg tablet 10 mg PO PM #30 tabs 02/26/25 03/04/25 Rx ropinirole 0.25 mg tablet 0.5 mg (2 x 0.25 mg) PO HS #60 tabs 03/02/25 03/04/25 Rx naproxen 500 mg tablet 500 mg PO BID #30 tabs 03/04/25 03/04/25 Rx prednisone 20 mg tablet 20 mg PO BID 5 days #10 tabs 03/04/25 03/04/25 Rx diclofenac sodium 1 % topical gel 2 g topical QID #50 grams 03/05/25 03/05/25 Rx New Prescriptions to Start Prescriptions: Allergies Allergy/AdvReac Type Severity Reaction Status Date / Time verapamil Allergy Severe Rash Verified 03/04/25 15:01 Iodine and Iodide Containing Allergy Mild Rash Verified 03/04/25 15:01 Produc Penicillins (PENICILLINS) Allergy Unknown I-RASH Verified 03/04/25 15:01 Sulfa (Sulfonamide Allergy Unknown NA-NAUSEA/V Verified 03/04/25 15:01 Antibiotics) (SULFA OMITING (SULFONAMIDE ANTIBIOTICS)) Exam Data for Last 24 hours Vital signs and Labs for Last 24 Hours: Temp Pulse Resp BP Pulse Ox O2 Del Method 98.5 F 68 19 129/62 95 Room Air 03/05/25 19:31 03/05/25 21:30 03/05/25 21:45 03/05/25 21:31 03/05/25 21:30 03/05/25 19:31 Laboratory Results - last 24 hr 03/05/25 19:35: WBC 21.3 H*, RBC 4.78, Hgb 13.1, Hct 41.4, MCV 86.6, MCH 27.4, MCHC 31.6 L, RDW 14.7, Plt Count 250, MPV 11.8 H, Neut % (Auto) 90.5 H, Lymph % (Auto) 5.7 L, [place] % (Auto) 2.9, Eos % (Auto) 0.0 L, Baso % (Auto) 0.1, Neut # (Auto) 19.2 H, Lymph # (Auto) 1.2, [place] # (Auto) 0.6, Eos # (Auto) 0.0, Baso # (Auto) 0.0, VBG pH 7.35, VBG pCO2 43.5, VBG pO2 67.7 H, VBG HCO3 23.5, VBG Total CO2 24.9, VBG O2 Saturation 92.3 H, VBG Base Excess -2.1, VBG Lactic Acid 3.8 H, Sodium 137, Potassium 4.2, Chloride 100, Carbon Dioxide 24, Anion Gap 17.2 H, BUN 33 H, Creatinine 1.00, Estimated Creat Clear 81, Estimated GFR 55 L, Est GFR ( Amer) 66, Glucose 311 H, Calcium 10.0, Magnesium 1.5 L, Total Bilirubin 0.4, AST 29, ALT 26, Alkaline Phosphatase 95, Troponin I < 0.01, NT-Pro-B Natriuret Pep 332 H, Total Protein 6.8, Albumin 4.4, Globulin 2.4, Albumin/Globulin Ratio 1.8 03/05/25 19:43: SARS-CoV-2 (PCR) Not detected, Influenza A Untype (PCR) Not detected, Influenza Type B (PCR) Not detected 03/05/25 19:49: Urine Color Yellow, Urine Appearance Clear, Urine pH 6.0, Ur Specific [place] 1.010, Urine Protein Negative, Urine Glucose (UA) 3+, Urine Ketones Negative, Urine Blood Trace-i, Urine Nitrate Negative, Urine Bilirubin Negative, Urine Urobilinogen 0.2, Ur Leukocyte Esterase Negative, Urine RBC 3-5, Urine WBC 3-5, Ur Squamous Epith Cells 5-10, Urine Bacteria 2+ 03/05/25 20:37: Lactate 3.7 H I & O for Last 24 hours: Intake & Output 03/02/25 03/03/25 03/04/25 03/05/25 23:59 23:59 23:59 23:59 Weight 99.79 kg Constitutional Constitutional: mild distress and obese *Routine HEENT Exam Head: Present normocephalic Eye: Present EOMI and PERRL ENT: Present mucous membranes moist *Routine Neck Exam Neck: Present supple; Absent lymphadenopathy *Routine Respiratory Exam Respiratory: Present CTA bilaterally *Routine Cardiovascular Exam Cardiovascular: Present RRR *Routine Abdominal Exam Abdominal: Present soft, normoactive bowel sounds and tenderness Comments: Left CVA, epigastric tenderness *Routine Rectal Exam Rectal:: deferred *Routine Genitalia Exam Genitalia:: deferred *Routine Extremities Exam Extremities: Present edema; Absent cyanosis or clubbing *Routine Skin Exam Skin: Present warm; Absent rash *Routine Neurological Exam Neurological: Present alert and oriented X3 Assessment and Plan *Assessment and plan (1) Acute exacerbation of chronic obstructive pulmonary disease: Status: Acute Category: Medical Code(s): J44.1 - Chronic obstructive pulmonary disease with (acute) exacerbation (2) Pancreatitis: Status: Acute Category: Medical Code(s): K85.90 - Acute pancreatitis without necrosis or infection, unspecified Plan Yaritza Stallings is a 69-year-old female with medical history significant for COPD (baseline 4 L), degenerative disc disease, left-sided radiculopathy, type 2 diabetes with neuropathy, HFpEF, hypertension, A-fib on Xarelto, GERD, anxiety/depression who presents with acute on chronic mid/low back pain, increased urinary frequency, and shortness of breath. She states she has a longstanding history of mid/low back pain which has become worse over the past 1 to 2 weeks. She notes chronic left-sided radiculopathy that is not any worse. She had a fall 3 days ago in her bathtub trying to reach for the soap without precipitating symptoms. She also notes 1 week of progressive shortness of breath with clear productive cough. However, she states she has been trying to wean her oxygen at home to 2 L from 4 L. She has been adherent to her inhalers, nebulizers but she cannot recall the medication names. She was evaluated by her PCP on 03/04/2025 for her low back pain and received IM Toradol, Decadron and given prednisone 40 mg for 5 days. Patient however states her shortness of breath has not gotten better, and continues to have back pain. Workup in the ED significant for WBC 21.3 (in the setting of recent steroid use), relatively normal VBG, lactic acid 3.8, AGAP 17.2, magnesium 1.5. UA somewhat suggestive for UTI. CT abdomen/pelvis without dissection/aneurysm but did show bilateral nephrolithiasis without obstruction, mild biliary ductal dilation, CT lumbar spine showed chronic advanced degenerative disc and facet arthropathy without acute findings. CT chest also without acute findings. On my evaluation, patient had increased work of breathing and moderate tenderness over the lower thoracic and upper lumbar spine which is worse than normal. Patient also noted left CVA tenderness though this seemed more radiation from her spine. She also had increased work of breathing with diffuse moderate wheezing requiring her baseline 4 L. Given elevated WBC, lactic acid, increased work of breathing with possible UTI meeting sepsis criteria, case discussed with ED provider and decision was made to admit patient for the same. #Acute pancreatitis #Biliary ductal dilation ? On further evaluation, patient has epigastric tenderness with radiation to the mid back. Presented with 1 week of left sided abdominal, flank, mid back pain. ? Ordered lipase, returned as 3851. Calcium normal, follow-up triglycerides. Does not use GLP-1 agonist. ? CT abdomen does show mild biliary ductal dilation, no necrosis or pseudocyst. LFTs normal. Could be viral with concomitant COPD/HFpEF exacerbation. ? Has had cholecystectomy, but concern for de andre choledocholithiasis versus sphincter of Oddi dysfunction. ? Follow-up RUQ ultrasound, n.p.o. midnight. ? GI consulted, pending further recommendations. ? Toradol, Mather, Dilaudid as needed for pain control. Monitor for toxicity. ? Advance diet as tolerated after RUQ ultrasound. #COPD exacerbation #Suspected HFpEF exacerbation ? Presents with shortness of breath, cough, worsening lower extremity edema 1+. Increased work of breathing, with diffuse moderate wheezing on arrival. Requiring baseline 4 L. ? CT chest without acute infection, respiratory panel also negative. BNP elevated at 332, though can be falsely low with obesity. ? Started DuoNebs every 4 hours, Pulmicort twice daily. ? Continue azithromycin daily for 5 days. ? Continue home prednisone 40 mg for 5 days, last day 03/08/2025. ? Lactic acid worsened with fluids, ordered IV Lasix 60 mg once for suspected acute HFpEF. Follow-up response. ? Continue home Lasix 40 mg twice daily. ? Pulmonology consulted, pending further recommendations. #Severe sepsis #Possible UTI ? Presented with increased urinary frequency with dysuria. UA grossly abnormal. ? Initial WBC 21.3, lactic acid 3.8, with tachypnea. Hold off on sepsis bolus due to suspected acute HFpEF. ? Continue ceftriaxone day 08/03. ? Follow-up morning CBC, urine, blood cultures. #Lactic acidosis ? Lactic acid peaked at 4.2, improving to 4.0 after diuresis. ? May be related to HFpEF exacerbation, sepsis, albuterol nebs, pancreatitis. Continue treatment as above. ? Follow-up repeat lactic acid. #Hypomagnesemia ? Initial magnesium 1.5. Repleted. #Fall ? Fell in bathtub 3 days ago. PT/OT consulted, pending further recommendations. #Type 2 diabetes with neuropathy ? Hemoglobin A1c 8.0% in November 2024. Follow-up repeat A1c. ? Lantus 10 units daily, LDSSI, ACHS glucose checks. ? Hold home metformin in the setting of lactic acidosis. ? Resume other home medications once reconciled. #Hypertension #A-fib ? Currently rate controlled, BP normal. ? Resume home medications once reconciled/appropriate. #GERD ? Resume home PPI. #Anxiety/depression ? Resume home medications once reconciled. Full code DVT prophylaxis: Lovenox 40 mg
[2025-03-05] MEDS: AZITHROMYCIN 500 MG in 0.9 % SODIUM CHLORIDE 250 ML 250 MG IV (21:59)
--- OUTSIDE RECORDS SUMMARY | 2025-03-05 22:34 | XMS_ITS | Clinical Summary ---
Author Organization [facility] Address [address] [place] [address] Care Team Providers Care Department Chairperson Name Role Phone Ilir Jeffers MD Primary Care Provider + [phone] Allergies Active Allergy Reactions Criticality Noted Date [...] tablet TAKE 1 TABLET DAILY. 1 Active HYDROcodone-rebecac taminophen (Royal) 7.5-325 MG tablet 1 Active losartan (Cozaar) [...] 2003 UKY-Zoster Vaccines (1 of 2) 2003 [id number] Vaccine (3 - 2023- season) 2024 04/11/2021, [...] Antibody Negative Negative 09/05/2023 3:48 AM EST [facility] Blood Venous blood specimen / Unknown Venipuncture / Unknown 09/05/2023 2:58 AM EST 09/05/2023 3:06 AM EST us Junior Thomson MD LAB BLOOD ORDERABLES Final Result [facility] [address] [place] [place] [address] from Last 3 Months or Most Recently Relevant to Health Maintenance Insurance MEDICAID MEDICARE Advance Directives * Full Code (Latest Code Status on File) Date Activated Date Inactivated Comments 09/05/2023 5:32 AM 09/05/2023 5:40 PM Question Answer Comments Patient has decision-making capacity? Yes Care Teams Department Chairperson Relationship Specialty Start Date End Date Ilir Jeffers MD [address] [place] [address] PCP - General 12/10/20
--- OUTSIDE RECORDS SUMMARY | 2025-03-05 22:34 | XMS_ITS | Clinical Summary ---
Author Organization [facility] Address [address] [place] [address] Phone Care Team Providers Care Manager Therapy Name Role Phone Unavailable Primary Care Provider Unavailabl e Allergies Active Allergy Reactions Criticality Noted Date Comments Iodine Nausea And Vomiting 08/18/2009 Penicillins Swelling High 08/18/2009 Sulfa (Sulfonamide Antibiotics) Hives 03/30 Medications Nebulizer Accessories (A.I.R.S NEBULIZER REPLACEMENT) Kit Need New nebulizer 1 Kit 0 012 Active albuterol (VENTOLIN HFA) 90 mcg/actuation inhalerIndications:E Commerce Manager gisselle airway obstruction, not elsewhere classified Inhale [...] 04/03/12 soapp 04/03/12 = 7 cathy 10/31/12 05/02/13([id number]) UDS 05/02/13 Problem Noted Date Diagnosed Date [...] PM EDT) Hep C Ab Negative Negative [facility] Blood specimen (specimen) 04/12/2017 3:13 PM EDT 04/12/2017 7:28 PM EDT us Jahaira Purdy VACUUM FORM OPERATOR HEMATOLOGY ORDERABLES Final Re sult [facility] [address] [place] [address] from Last 3 Months or Most Recently Relevant to Health Maintenance Insurance [employer] [address]
[2025-03-05 22:47] LABS: Adenovirus,PCR Not Detected (NotDetected); Chlamydophila Pneumoniae, PCR Not Detected (NotDetected); Coronavirus 19, PCR Not Detected (NotDetected); Coronovirus HKU1,PCR Not Detected (NotDetected); Influenza A, PCR Not Detected (NotDetected); Influenza AH1, 2009 Not Detected (NotDetected); Influenza AH1, PCR Not Detected (NotDetected); Influenza AH3,PCR Not Detected (NotDetected); Influenza B, PCR Not Detected (NotDetected); Mycoplasma Pneumoniae, PCR Not Detected (NotDetected); Parainfluenza 1, PCR Not Detected (NotDetected); Parainfluenza 2, PCR Not Detected (NotDetected); Parainfluenza 3, PCR Not Detected (NotDetected); Parainfluenza 4, PCR Not Detected (NotDetected)
[2025-03-05 22:48] LABS: POC Glucose,Bedside 250 (70-110)
[2025-03-05] MEDS: BUDESONIDE 0.5MG/2ML NEB 0.5 MG IH (23:05)
[2025-03-05] MEDS: IPRATROPIUM/ALBUTEROL 3 ML NEB IH (23:05)
[2025-03-05] MEDS: humaLOG 100 UNITS/ML 10ML VIAL (SSI) SUBCUT (23:13)
[2025-03-05 23:17] LABS: Reflex Lactic Add Lactic Reflex
--- NOTE | 2025-03-05 23:19 | PC.NURSE ---
Pt unaware of what medication she takes. Pt reported her medications come prepackaged and she takes what is due for that time. Pt med rec is unable to be completed at this time. notified.
[2025-03-06] VITALS (13 sets, daily range): BP systolic 100–120; BP diastolic 46–54; PULSE 70–77; RESP 17–20; TEMP 36.6–36.9; O2SAT 90–96; BMI 33.5
[2025-03-06 00:07] LABS: Lactic Acid Follow Up (RFLX 1) 4.2 mmol/L (0.7-2.1); Troponin I < 0.01 ng/ml (0.00-0.034)
--- NOTE | 2025-03-06 00:08 | PC.NURSE ---
Notified of critical lab result of Lactic 4.2.
[2025-03-06] MEDS: FUROSEMIDE 40MG/4ML VIAL 60 MG IV (00:19)
[2025-03-06] MEDS: KETOROLAC 30MG/ML VIAL 15 MG IV ×4 (00:19→18:32)
[2025-03-06 01:33] LABS: Reflex Lactic (2 hrs) Add Lactic Reflex
[2025-03-06] MEDS: HYDROCODONE 10MG/APAP 325MG TAB 1 TAB PO (02:04)
[2025-03-06 02:10] LABS: Lactic Acid Follow up (RFLX 2) 4.0 mmol/L (0.7-2.1)
[2025-03-06] MEDS: IPRATROPIUM/ALBUTEROL 3 ML NEB IH ×6 (02:10→22:10)
--- NOTE | 2025-03-06 02:15 | PC.NURSE ---
Critical Lab Result of Lactate of 4.0 called to
[2025-03-06 02:19] LABS: Troponin I < 0.01 ng/ml (0.00-0.034)
--- NOTE | 2025-03-06 02:34 | EXP.SEPSISRE ---
[facility] Tissue Perfusion Eval Sepsis Re-Evaluation Performed: Yes Date Performed: 03/05/25 Time Performed: 22:30
[2025-03-06 02:46] LABS: Lipase 3851 U/L (23-300)
--- NOTE | 2025-03-06 02:47 | PC.NURSE ---
Notified of critical lab result of Lipase 3851.
--- NOTE | 2025-03-06 02:50 | US_ITS ---
FINAL REPORT CLINICAL HISTORY: Evaluate for choledocholithiasis COMPARISON: None FINDINGS: Sonographic images of the right upper quadrant were obtained. The pancreas is obscured.The liver has an unremarkable appearance. The gallbladder is surgically absent. The common duct measures 6 mm. No localized choledocholithiasis is noted. There is a hypoechoic focus in the right kidney measuring 2.0 cm, probably representing a benign cyst. No hydronephrosis. IMPRESSION: No evidence of choledocholithiasis. Right renal cyst. Reviewed, Interpreted and Dictated by Williams Travis MD Transcribed by Sydni Cervantes Authenticated and . [facility]
[2025-03-06] MEDS: NYSTATIN TOPICAL POWDER 30GM 30 GM TP (03:11)
[2025-03-06] MEDS: HYDROMORPHONE 2MG/ML SYRINGE 0.5 MG IV (03:32)
--- NOTE | 2025-03-06 04:09 | PC.NURSE ---
Pt A&Ox4. Pt is on 4LNC, which is pt's baseline. Pt's VSS. Pt has audile wheezing and a cough. Pt complaining of left sided abdominal pain and low back pain. Pt medicated per SEP. Pt's most recent Lactate is 4.0 and Lipase was 3851. These were critical labs reported to MD. See prior notes. Pt NPO awaiting US RUQ. Pt not voicing any concerns at this time. Pt resting with call light in reach. POC ongoing.
[2025-03-06] MEDS: BUDESONIDE 0.5MG/2ML NEB 0.5 MG IH ×2 (06:01→18:06)
[2025-03-06 06:10] LABS: Albumin Level 3.7 g/dl (3.5-5.0); Chloride 100 mmol/L (98-107); Sodium 136 mmol/L (136-145)
[2025-03-06] MEDS: humaLOG 100 UNITS/ML 10ML VIAL (SSI) SUBCUT ×4 (06:10→20:11)
[2025-03-06 06:11] LABS: Potassium 4.2 mmoL/L (3.5-5.1)
[2025-03-06] MEDS: PANTOPRAZOLE 40MG TABLET 40 MG PO (06:11)
[2025-03-06 06:13] LABS: Alanine Aminotransferase 22 U/L (12-78); Albumin/Globulin Ratio 1.7 (1.1-1.8); Alkaline Phosphatase 77 U/L (38-126); Anion Gap 13.2 mEq/L (5-15); Aspartate Amino Transferase 27 U/L (14-36); Bilirubin,Total 0.2 mg/dl (0.2-1.3); Blood Urea Nitrogen 38 mg/dl (7-17); Carbon Dioxide 27 mmol/L (22.0-30.0); Creatinine Clearance Estimated 76 mL/min (50-200); Creatinine,Serum 1.10 mg/dl (0.52-1.04); Estimated Glomerular Filt Rate 49 ml/min (>60); GFR (African American) 59 ML/MIN (>60); Globulin 2.2 g/dL (1.3-3.2); Total Protein,Serum 5.9 g/dl (6.3-8.2)
[2025-03-06 06:14] LABS: Calcium 9.1 mg/dl (8.4-10.2); Glucose 291 mg/dl (74-100)
[2025-03-06 06:15] LABS: Hematocrit 37.6 % (37.0-47.0); Immature Granulocytes % 1.1 %; Mean Corpuscular HGB Conc 30.1 g/dL (31.8-35.4); Mean Corpuscular Hemoglobin 26.5 pg (27.0-31.2); Mean Corpuscular Volume 88.3 fl (81-99); Nucleated Red Blood Cells % 0 %; Platelet Count 194 K/mm3 (142-424); Red Blood Count 4.26 M/mm3 (4.20-5.40); Red Cell Distribution Width-SD 47.9 fL; White Blood Count 18.7 K/mm3 (4.8-10.8)
[2025-03-06 06:20] LABS: Hemoglobin 11.6 g/dL (12.2-16.2)
[2025-03-06 06:29] LABS: Cholesterol 150 mg/dl (140-200); HDL Cholesterol 39 mg/dl (40-60); Triglycerides 126 mg/dl (30-150)
[2025-03-06 06:30] LABS: Hemoglobin A1C 8.0 % (4.0-6.0)
--- OUTSIDE RECORDS SUMMARY | 2025-03-06 07:53 | XMS_ITS | Clinical Summary ---
Author Organization [facility] Primary Care Address [address] [place] [address] Phone Care Team Providers Care Art Professor Name Role Phone Unavailable Primary Care Provider Unavailabl e Allergies Active Allergy Reactions Criticality Noted Date Comments Iodine Nausea And Vomiting 08/18/2009 Penicillins Swelling High 08/18/2009 Sulfa (Sulfonamide Antibiotics) Hives 03/30 Medications Nebulizer Accessories (A.I.R.S NEBULIZER REPLACEMENT) Kit Need New nebulizer 1 Kit 0 012 Active albuterol (VENTOLIN HFA) 90 mcg/actuation inhalerIndications:Money Order Clerk gisselle airway obstruction, not elsewhere classified Inhale [...] 04/03/12 soapp 04/03/12 = 7 cathy 10/31/12 05/02/13([id number]) UDS 05/02/13 Problem Noted Date Diagnosed Date [...] PM EDT) Hep C Ab Negative Negative [facility] Blood specimen (specimen) 04/12/2017 3:13 PM EDT 04/12/2017 7:28 PM EDT us Jahaira Purdy RELIGION TEACHER HEMATOLOGY ORDERABLES Final Re sult [facility] [address] [place] [address] from Last 3 Months or Most Recently Relevant to Health Maintenance Insurance [employer] [address]
--- OUTSIDE RECORDS SUMMARY | 2025-03-06 07:54 | XMS_ITS | Clinical Summary ---
Author Organization [facility] Address [address] [place] [address] Care Team Providers Care Supply Manager Name Role Phone Ilir Jeffers MD Primary Care Provider + [phone] Allergies Active Allergy Reactions Criticality Noted Date [...] 1 TABLET DAILY. 1 Active HYDROcodone-rebecca taminophen ([place]) 7.5-325 MG tablet 1 Active losartan (Cozaar) [...] 2003 UKY-Zoster Vaccines (1 of 2) 2003 DHA-BCTHR-54 Vaccine (3 - 2023- season) 2024 04/11/2021, [...] Antibody Negative Negative 09/05/2023 3:48 AM EST [facility] Blood Venous blood specimen / Unknown Venipuncture / Unknown 09/05/2023 2:58 AM EST 09/05/2023 3:06 AM EST us Junior Thomson MD LAB BLOOD ORDERABLES Final Result [facility] [address] [place] [address] from Last 3 Months or Most Recently Relevant to Health Maintenance Insurance MEDICAID MEDICARE Advance Directives * Full Code (Latest Code Status on File) Date Activated Date Inactivated Comments 09/05/2023 5:32 AM 09/05/2023 5:40 PM Question Answer Comments Patient has decision-making capacity? Yes Care Teams Supply Manager Relationship Specialty Start Date End Date Ilir Jeffers MD [address] [place] [address] PCP - General 12/10/20
[2025-03-06] MEDS: NYSTATIN TOPICAL POWDER 30GM TP ×4 (09:17→20:14)
[2025-03-06] MEDS: FUROSEMIDE 40 MG TABLET PO ×2 (09:17→16:36)
[2025-03-06] MEDS: HYDROCODONE/APAP 5/325 MG TABLET 1 TAB PO ×2 (09:32→16:46)
--- NOTE | 2025-03-06 09:37 | EXP.PULM.CON ---
History of Present Illness History of present illness: Ms. Stallings is a 69-year-old female greater than [id number] smoking history COPD bronchiectasis history of recurrent pneumonia type 2 diabetes mellitus heart failure preserved EF hypertension A-fib on Xarelto presented to the ER with worsening respiratory distress and back pain. Also admits worsening respiratory distress along with worsening wheezing. Denies any worsening cough/worsening productive phlegm. [facility] Disclaimer: The information contained in this section may have been updated after the patient was seen, as this information can be updated by other users. Medical History Acute on chronic respiratory failure with hypoxia and hypercapnia Chronic, continuous use of opioids Overuse of medication Pneumonia Pre-operative cardiovascular examination Pacemaker lead malfunction Pacemaker at end of battery life Vulvar cyst Candidal intertrigo Bronchiectasis, non-tuberculous COPD (chronic obstructive pulmonary disease) Acute exacerbation of chronic obstructive pulmonary disease Stopped smoking with greater than 30 pack year history History of asthma Family history of asthma Allergic rhinitis, unspecified History of 2019 novel coronavirus disease (COVID-19) COPD (chronic obstructive pulmonary disease) Acute respiratory failure with hypoxia COPD exacerbation Encounter for screening for malignant neoplasm of lung in current smoker with 30 pack year history or greater Stopped smoking with greater than 30 pack year history History of asthma Family history of asthma Allergic rhinitis History of 2019 novel coronavirus disease (COVID-19) COPD exacerbation Hyperlipemia PAF (paroxysmal atrial fibrillation) COPD (chronic obstructive pulmonary disease) On statin therapy Diabetes (~06/2020) Cardiac pacemaker in situ Fatigue HHD (hypertensive heart disease) Surgical History History of tonsillectomy History of cholecystectomy Hx of tonsillectomy History of arthroplasty of right knee Hx of cholecystectomy Family History Other Cancer Coronary artery disease Diabetes Hyperlipidemia Hypertension Social History Smoking Status: Current every day smoker tobacco type: cigarettes packs per day: 1 smoking status stop date: 09/12/2022 second hand exposure: Yes alcohol intake: never substance use type: denies use current occupational status: disabled and other Travel in the last 8 weeks?: None household members: none housing: house marital status: number of children: 0 current occupational exposures/hazards: No caffeine: Yes Have you lived/traveled outside [place] in past 30 days?: No Contact w/someone who lives/traveled outside US past 30 days?: No Exposure to someone with infectious disease in past 14 days?: No Do you have a fever (greater than 100.4 F or 38 C)?: No Have you tested positive for COVID-19?: No Exposed to someone with COVID-19 in past 14 days?: No Do you have a sore throat?: No Do you have a cough?: No Do you have any weakness?: No Do you have any diarrhea?: No Are you experiencing any unusual bleeding?: No Do you have any muscle aches/pain?: No Do you have any abdominal pain?: No Are you experiencing loss of taste or smell?: No Review of Systems Constitutional Constitutional: Reports anorexia and Reports fatigue Eyes Eyes: Denies eye discharge, Denies dry eyes, Denies irritation and Denies itchy eyes ENT Ears, Nose, Mouth, and Throat: Denies epistaxis, Denies facial pain, Denies lip swelling and Denies throat swelling *Cardiovascular Cardiovascular: Reports dyspnea and Reports dyspnea on exertion *Respiratory Respiratory: Denies change in phlegm color, Reports chest congestion, Reports cough, Reports dyspnea, Reports dyspnea on exertion, Denies excessive phlegm production, Denies hemoptysis, Denies pain on inspiration, Denies pain with cough and Reports wheezing *Gastrointestinal Gastrointestinal: Reports abdominal pain, Denies belching and Denies cramping *Musculoskeletal Musculoskeletal: Reports back pain, Reports myalgias and Reports other (No small joint swelling or Pain) Psychiatric Psychiatric: Denies homicidal ideation and Denies suicidal ideation Endocrine Endocrine: Reports fatigue and Denies heat intolerance Hematologic/Lymphatic Hematologic/Lymphatic: Denies easy bleeding and Denies lymphadenopathy Allergic/Immunologic Allergic/Immunologic: Denies itchy eyes, Denies lip swelling, Denies throat swelling and Reports wheezing Pulmonology Exam Inpatient Vital signs and Labs for Last 24 Hours: Temp Pulse Resp BP Pulse Ox O2 Del Method O2 Flow Rate 98.5 F 70 18 119/54 L 90 L Nasal Cannula 4 03/06/25 08:00 03/06/25 08:00 03/06/25 08:00 03/06/25 08:00 03/06/25 08:00 03/06/25 08:00 03/06/25 08:00 Laboratory Results - last 24 hr 03/05/25 19:35: WBC 21.3 H*, RBC 4.78, Hgb 13.1, Hct 41.4, MCV 86.6, MCH 27.4, MCHC 31.6 L, RDW 14.7, Plt Count 250, MPV 11.8 H, Neut % (Auto) 90.5 H, Lymph % (Auto) 5.7 L, [place] % (Auto) 2.9, Eos % (Auto) 0.0 L, Baso % (Auto) 0.1, Neut # (Auto) 19.2 H, Lymph # (Auto) 1.2, [place] # (Auto) 0.6, Eos # (Auto) 0.0, Baso # (Auto) 0.0, VBG pH 7.35, VBG pCO2 43.5, VBG pO2 67.7 H, VBG HCO3 23.5, VBG Total CO2 24.9, VBG O2 Saturation 92.3 H, VBG Base Excess -2.1, VBG Lactic Acid 3.8 H, Sodium 137, Potassium 4.2, Chloride 100, Carbon Dioxide 24, Anion Gap 17.2 H, BUN 33 H, Creatinine 1.00, Estimated Creat Clear 81, Estimated GFR 55 L, Est GFR ( Amer) 66, Glucose 311 H, Calcium 10.0, Magnesium 1.5 L, Total Bilirubin 0.4, AST 29, ALT 26, Alkaline Phosphatase 95, Troponin I < 0.01, NT-Pro-B Natriuret Pep 332 H, Total Protein 6.8, Albumin 4.4, Globulin 2.4, Albumin/Globulin Ratio 1.8 03/05/25 19:43: SARS-CoV-2 (PCR) Not detected, Influenza A Untype (PCR) Not detected, Influenza Type B (PCR) Not detected 03/05/25 19:49: Urine Color Yellow, Urine Appearance Clear, Urine pH 6.0, Ur Specific [place] 1.010, Urine Protein Negative, Urine Glucose (UA) 3+, Urine Ketones Negative, Urine Blood Trace-i, Urine Nitrate Negative, Urine Bilirubin Negative, Urine Urobilinogen 0.2, Ur Leukocyte Esterase Negative, Urine RBC 3-5, Urine WBC 3-5, Ur Squamous Epith Cells 5-10, Urine Bacteria 2+ 03/05/25 20:37: Lactate 3.7 H 03/05/25 22:39: POC Glucose 250 H 03/05/25 22:40: Chlamy pneumoniae PCR Not detected, Adenovirus (PCR) Not detected, B. pertussis DNA (PCR) Not detected, Coronavirus OC43 (PCR) Not detected, Coronavirus HKU1 (PCR) Not detected, Coronavirus 229E (PCR) Not detected, SARS-CoV-2 (PCR) Not detected, Coronavirus NL63 (PCR) Not detected, Human Metapneumovir PCR Not detected, Influenza A (H1) PCR Not detected, Influ A (H1N1/09) PCR Not detected, Influenza A (H3) PCR Not detected, Influenza Type A (PCR) Not detected, Influenza Type B (PCR) Not detected, M. pneumoniae (PCR) Not detected, Parainfluenza 1 (PCR) Not detected, Parainfluenza 2 (PCR) Not detected, Parainfluenza 3 (PCR) Not detected, Parainfluenza 4 (PCR) Not detected, RSV (PCR) Not detected, Entero/Rhino (PCR) Not detected 03/05/25 23:29: Lactate 4.2 H, Troponin I < 0.01 03/06/25 01:47: Lactate 4.0 H, Troponin I < 0.01, Lipase 3851 H 03/06/25 05:29: WBC 18.7 H, RBC 4.26, Hgb 11.6 L D, Hct 37.6, MCV 88.3, MCH 26.5 L, MCHC 30.1 L, RDW 15.1, Plt Count 194, MPV 11.6 H, Neut % (Auto) 91.5 H, Lymph % (Auto) 5.1 L, [place] % (Auto) 2.2, Eos % (Auto) 0.0 L, Baso % (Auto) 0.1, Neut # (Auto) 17.1 H, Lymph # (Auto) 1.0, [place] # (Auto) 0.4, Eos # (Auto) 0.0, Baso # (Auto) 0.0, Sodium 136, Potassium 4.2, Chloride 100, Carbon Dioxide 27, Anion Gap 13.2, BUN 38 H, Creatinine 1.10 H, Estimated Creat Clear 76, Estimated GFR 49 L, Est GFR ( Amer) 59, Glucose 291 H, Hemoglobin A1c 8.0 H, Lactate 2.2 H, Calcium 9.1, Total Bilirubin 0.2, AST 27, ALT 22, Alkaline Phosphatase 77, Total Protein 5.9 L, Albumin 3.7 D, Globulin 2.2, Albumin/Globulin Ratio 1.7, Triglycerides 126, Cholesterol 150, LDL Cholesterol Direct 81.61 L, VLDL Cholesterol 25, HDL Cholesterol 39 L, Cholesterol/HDL Ratio 3.8 H I & O for Labs for Last 24 Hours: Intake & Output 03/03/25 03/04/25 03/05/25 03/06/25 23:59 23:59 23:59 23:59 Intake Total 850 / 850 Output Total 600 / 600 Balance 250 / 250 Weight 223 lb 3.2 oz 226 lb 12.8 oz Constitutional: Present moderate distress Head: Present normocephalic and atraumatic ENT: Present normal exam, normal oropharynx and mucous membranes moist Neck: Present normal inspection and full ROM Respiratory: Present respiratory distress, wheezes and able to speak in complete sentences; Absent diminished air movement Cardiac: Present S1/S2, Tachycardia and radial pulses present GI: Present soft, distention and tenderness; Absent guarding Rectal (female): Present deferred (female): Present deferred Skin: Present intact; Absent cyanosis or jaundice Neuro: Present alert, awake and oriented x 3 Extremities: Present normal inspection; Absent clubbing or cyanosis Psychiatric: Present normal affect and cooperative Meds Home Medications and Allergies Home Medications ?Medication ?Instructions ?Recorded ?Confirmed ?Type pantoprazole 40 mg tablet,delayed 40 mg PO DAILY 04/17/24 03/06/25 History release buspirone 10 mg tablet 10 mg PO BID 90 days #180 tabs 08/07/24 03/06/25 Rx fluoxetine 20 mg capsule 20 mg PO BID 90 days #180 caps 08/07/24 03/06/25 Rx atorvastatin 80 mg tablet 80 mg PO HS 12/23/24 03/06/25 History diltiazem HCl 240 mg 240 mg PO DAILY 12/23/24 03/06/25 History capsule,extended release 24 hr furosemide 40 mg tablet 40 mg PO DAILY 12/23/24 03/06/25 History lisinopril 2.5 mg tablet 2.5 mg PO HS 12/23/24 03/06/25 History rivaroxaban 20 mg tablet (Xarelto) 20 mg PO QPMWITHMEAL 12/23/24 03/06/25 History bisoprolol fumarate 10 mg tablet 10 mg PO BID 90 days #180 tabs 01/29/25 03/06/25 Rx magnesium oxide 400 mg (241.3 mg 400 mg PO BID #60 tabs 01/29/25 03/06/25 Rx magnesium) tablet metformin 500 mg tablet 1,000 mg (2 x 500 mg) PO BID #120 01/29/25 03/06/25 Rx tabs montelukast 10 mg tablet 10 mg PO PM #30 tabs 02/26/25 03/06/25 Rx ropinirole 0.25 mg tablet 0.5 mg (2 x 0.25 mg) PO HS #60 tabs 03/02/25 03/06/25 Rx naproxen 500 mg tablet 500 mg PO BID #30 tabs 03/04/25 03/06/25 Rx diclofenac sodium 1 % topical gel 2 g topical QID #50 grams 03/05/25 03/06/25 Rx empagliflozin 25 mg tablet 25 mg PO DAILY 03/06/25 03/06/25 History (Jardiance) fluticasone propionate 50 1 spray intranasal DAILY 03/06/25 03/06/25 History mcg/actuation nasal spray,suspension insulin glargine 100 unit/mL (3 35 unit SQ BID 03/06/25 03/06/25 History mL) subcutaneous pen (Basaglar KwikPen U-100 Insulin) spironolactone 25 mg tablet 25 mg PO DAILY 03/06/25 03/06/25 History New Prescriptions to Start Prescriptions: Allergies Allergy/AdvReac Type Severity Reaction Status Date / Time verapamil Allergy Severe Rash Verified 03/04/25 15:01 Iodine and Iodide Containing Allergy Mild Rash Verified 03/04/25 15:01 Produc Penicillins (PENICILLINS) Allergy Unknown I-RASH Verified 03/04/25 15:01 Sulfa (Sulfonamide Allergy Unknown NA-NAUSEA/V Verified 03/04/25 15:01 Antibiotics) (SULFA OMITING (SULFONAMIDE ANTIBIOTICS)) Results Laboratory Findings 03/06/25 05:29 03/06/25 05:29 Abnormal lab findings: Abnormal Labs 03/05/25 03/05/25 03/05/25 19:35 20:37 22:39 WBC 21.3 H* Hgb MCH MCHC 31.6 L MPV 11.8 H Neut % (Auto) 90.5 H Lymph % (Auto) 5.7 L Eos % (Auto) 0.0 L Neut # (Auto) 19.2 H VBG pO2 67.7 H VBG O2 Saturation 92.3 H VBG Lactic Acid 3.8 H Anion Gap 17.2 H BUN 33 H Creatinine Estimated GFR 55 L Glucose 311 H POC Glucose 250 H Hemoglobin A1c Lactate 3.7 H Magnesium 1.5 L NT-Pro-B Natriuret Pep 332 H Total Protein LDL Cholesterol Direct HDL Cholesterol Cholesterol/HDL Ratio Lipase 03/05/25 03/06/25 03/06/25 23:29 01:47 05:29 WBC 18.7 H Hgb 11.6 L D MCH 26.5 L MCHC 30.1 L MPV 11.6 H Neut % (Auto) 91.5 H Lymph % (Auto) 5.1 L Eos % (Auto) 0.0 L Neut # (Auto) 17.1 H VBG pO2 VBG O2 Saturation VBG Lactic Acid Anion Gap BUN 38 H Creatinine 1.10 H Estimated GFR 49 L Glucose 291 H POC Glucose Hemoglobin A1c 8.0 H Lactate 4.2 H 4.0 H 2.2 H Magnesium NT-Pro-B Natriuret Pep Total Protein 5.9 L LDL Cholesterol Direct 81.61 L HDL Cholesterol 39 L Cholesterol/HDL Ratio 3.8 H Lipase 3851 H Assessment and Plan *Assessment and plan (1) Acute on chronic respiratory failure with hypoxia and hypercapnia: Status: Acute Category: Medical Code(s): J96.21 - Acute and chronic respiratory failure with hypoxia; J96.22 - Acute and chronic respiratory failure with hypercapnia Plan Ms. Stallings is a 69-year-old female greater than [id number] smoking history COPD bronchiectasis history of recurrent pneumonia type 2 diabetes mellitus heart failure preserved EF hypertension A-fib on Xarelto presented to the ER with worsening respiratory distress and back pain. Also admits worsening respiratory distress along with worsening wheezing. Denies any worsening cough/worsening productive phlegm. Afebrile. Hemodynamically stable. Neutrophilic predominant leukocytosis. Comprehensive respiratory viral PCR panel negative CT chest upon admission no dense consolidative airspace changes. No groundglass opacities. No pleural effusions. CT abdomen reported mild biliary ductal dilatation. Calyceal renal stones with no evidence of hydronephrosis Patient otherwise being managed for acute pancreatitis/UTI.. Blood and urine cultures pending. Prior sputum cultures Klebsiella and stenotrophomonas. Not concern for pneumonia/airspace disease on this admission Plan: DuoNebs every 4 hours along with Pulmicort every 12 scheduled Oxygen supplementation to maintain O2 saturation below 90% when able. Weaned to 2 L this morning. Discontinue prednisone from pulmonary standpoint Continue levofloxacin pending final culture results. # Thank you for involving pulmonary in this patient care. Will continue to follow.
--- NOTE | 2025-03-06 09:41 | HMH.OTEV ---
OT Inpatient Evaluation Rehab OT IP Evaluation Start: 03/05/25 22:35 Freq: ONCE Status: Active Protocol: Document 03/06/25 09:38 [facility] (Rec: 03/06/25 09:41 [facility] [id number]) Rehab OT IP Assessment Subjective History Pt oriented x 3 on arrival. Pt agreeable to engage in therapy evaluation. Pt admitted on 03/05/25 due to COPD exacerbation and sepsis. History and physical: Yaritza Stallings is a 69-year-old female with medical history significant for COPD (baseline 4 L), degenerative disc disease, left-sided radiculopathy, type 2 diabetes with neuropathy, HFpEF, hypertension, A -fib on Xarelto, GERD, anxiety/depression who presents with acute on chronic mid/low back pain, increased urinary frequency, and shortness of breath. She states she has a longstanding history of mid/low back pain which has become worse over the past 1 to 2 weeks. She notes chronic left-sided radiculopathy that is not any worse. She had a fall 3 days ago in her bathtub trying to reach for the soap without precipitating symptoms. She also notes 1 week of progressive shortness of breath with clear productive cough. However, she states she has been trying to wean her oxygen at home to 2 L from 4 L. She has been adherent to her inhalers, nebulizers but she cannot recall the medication names. She was evaluated by her PCP on 2024 for her low back pain and received IM Toradol, Decadron and given prednisone 40 mg for 5 days. Patient however states her shortness of breath has not gotten better, and continues to have back pain. Workup in the ED significant for WBC 21.3 (in the setting of recent steroid use), relatively normal VBG, lactic acid 3.8, AGAP 17.2, magnesium 1.5. UA somewhat suggestive for UTI. CT abdomen/pelvis without dissection/ aneurysm but did show bilateral nephrolithiasis without obstruction, mild biliary ductal dilation, CT lumbar spine showed chronic advanced degenerative disc and facet arthropathy without acute findings. CT chest also without acute findings. On my evaluation, patient had increased work of breathing and moderate tenderness over the lower thoracic and upper lumbar spine which is worse than normal. Patient also noted left CVA tenderness though this seemed more radiation from her spine. She also had increased work of breathing with diffuse moderate wheezing requiring her baseline 4 L. Given elevated WBC, lactic acid, increased work of breathing with possible UTI meeting sepsis criteria, case discussed with ED provider and decision was made to admit patient for the same. Subjective Prior to being in the hospital, pt lived at home alone. Pt claims normally she is independent with all ADLs and simple IADLs. Her neighbor and family assist with heavier IADLs: deep cleaning, grocery shopping etc. Pt no longer drives family assists as needed. Pt does use o2 at all times. She does not require any type of AE during functional transfers. Objective Patient Orientation Person,Place,Birthday Right Upper WFL Extremity Gross ROM Left Upper Extremity WFL Gross ROM Bed Mobility bed mobility-scooting,bed mobility - supine/sit Assist Level Supervision/Stand by Transfer Training Sit/Stand Transfer Assist Level Supervision/Stand by Chair Transfer Supervision/Stand by Ability Chair Transfer Sit to/from Ambulatory Technique Chair Transfer None Assistive Devices Lower Body Dressing Standby Assistance Ability Rehab OT IP prob,goals,plan Problems Date of Evaluation: 03/06/25 Rehab Potential Rehab Potential Innapropriate for Skilled Therapy Discharge Plan OT Discharge Plan Pt appears to be at her baseline with functional transfers and ADL independence. Pt can return home once she is medically stable per physician. No further therapy tx required. Eval Complexity Eval Charge Codes 40030 - Moderate Complexity PHYSICIAN CERTIFICATION: I certify the specified therapy services for Yaritza Stallings are required, authorized, and reviewed every 30 days.
--- NOTE | 2025-03-06 09:58 | P.PN_ITS ---
<Statement entered by Carlos Beatty MD - 03/06/25 12:17> Rounded on patient after nurse practitioner. Personally examined and interviewed patient. Agree with exam findings and care plan as documented. Subjective *Date: 03/06/25 *Time: 11:28 Interval history: Patient sitting up in bed, states her work of breathing is better today. She is currently on 2 L nasal cannula for O2 saturation above 90%. She is receiving DuoNeb every 4, Pulmicort twice daily, prednisone 40 mg for COPD exacerbation. Per pulmonology this is close to her baseline lung function. Patient was started on azithromycin and Levaquin. She still complains of left-sided flank and abdominal pain. Right upper quadrant ultrasound unremarkable. Advance diet to clears. Medical Exam Vital signs and Labs for Last 24 Hours: Vital Signs Temp Pulse Pulse Resp BP BP Pulse Ox 03/06/25 09:56 70 03/06/25 09:56 72 03/06/25 09:56 90 L 03/06/25 08:00 03/06/25 08:00 98.5 F 70 18 119/54 L 90 L 03/06/25 06:43 03/06/25 06:01 70 03/06/25 06:01 76 03/06/25 06:01 90 L 03/06/25 05:00 03/06/25 04:00 98.0 F 70 20 107/52 L 93 L 03/06/25 03:00 03/06/25 03:00 03/06/25 02:10 70 03/06/25 02:10 73 03/06/25 01:00 03/06/25 00:00 98.0 F 70 20 100/50 L 96 03/05/25 23:05 69 03/05/25 23:05 72 03/05/25 23:05 96 03/05/25 23:00 03/05/25 22:25 98.5 F 72 20 115/51 L 96 03/05/25 22:20 03/05/25 22:14 98.2 F 68 20 130/60 03/05/25 21:45 19 03/05/25 21:31 129/62 03/05/25 21:30 68 21 95 03/05/25 21:15 71 24 92 L 03/05/25 21:00 128/57 L 03/05/25 20:00 68 17 123/57 L 96 03/05/25 19:51 71 16 131/56 L 96 03/05/25 19:31 98.5 F 64 20 134/63 88 L 03/05/25 19:27 63 134/63 98 O2 Del Method O2 Flow Rate 03/06/25 09:56 03/06/25 09:56 03/06/25 09:56 Nasal Cannula 2 03/06/25 08:00 Nasal Cannula 4 03/06/25 08:00 Nasal Cannula 4 03/06/25 06:43 Nasal Cannula 4 03/06/25 06:01 03/06/25 06:01 03/06/25 06:01 Nasal Cannula 4 03/06/25 05:00 Nasal Cannula 4 03/06/25 04:00 Nasal Cannula 4 03/06/25 03:00 Nasal Cannula 4 03/06/25 03:00 Nasal Cannula 4 03/06/25 02:10 03/06/25 02:10 03/06/25 01:00 Nasal Cannula 4 03/06/25 00:00 Nasal Cannula 4 03/05/25 23:05 03/05/25 23:05 03/05/25 23:05 Nasal Cannula 4 03/05/25 23:00 Nasal Cannula 4 03/05/25 22:25 Nasal Cannula 4 03/05/25 22:20 Nasal Cannula 4 03/05/25 22:14 Nasal Cannula 4 03/05/25 21:45 03/05/25 21:31 03/05/25 21:30 03/05/25 21:15 03/05/25 21:00 03/05/25 20:00 03/05/25 19:51 03/05/25 19:31 Room Air 03/05/25 19:27 Intake and Output 03/05/25 03/06/25 03/06/25 23:59 07:59 15:59 Intake Total 850 / 850 Output Total 600 / 600 0 / 600 Balance 250 / 250 0 / 250 Intake: Infusion Intake 850 / 850 Azithromycin 500 mg In 0.9 % 250 / 250 Sodium Chloride 250 ml @ 250 mls/hr IV ONCE ONE Rx#:[id number] Lactated Ringers 1000ML 1,000 600 / 600 ml @ 999 mls/hr IV .Q1H1M ONE Rx#:[id number] Output: Output, Urine Amount 600 / 600 0 / 600 Other: Number of Unmeasured Voids 1 1 Weight 101.242 kg 102.875 kg Patient Weight 03/06/25 23:59 Weight 102.875 kg Laboratory Results - last 24 hr 03/05/25 19:35: WBC 21.3 H*, RBC 4.78, Hgb 13.1, Hct 41.4, MCV 86.6, MCH 27.4, MCHC 31.6 L, RDW 14.7, Plt Count 250, MPV 11.8 H, Neut % (Auto) 90.5 H, Lymph % (Auto) 5.7 L, Maries % (Auto) 2.9, Eos % (Auto) 0.0 L, Baso % (Auto) 0.1, Neut # (Auto) 19.2 H, Lymph # (Auto) 1.2, Maries # (Auto) 0.6, Eos # (Auto) 0.0, Baso # (Auto) 0.0, VBG pH 7.35, VBG pCO2 43.5, VBG pO2 67.7 H, VBG HCO3 23.5, VBG Total CO2 24.9, VBG O2 Saturation 92.3 H, VBG Base Excess -2.1, VBG Lactic Acid 3.8 H, Sodium 137, Potassium 4.2, Chloride 100, Carbon Dioxide 24, Anion Gap 17.2 H, BUN 33 H, Creatinine 1.00, Estimated Creat Clear 81, Estimated GFR 55 L, Est GFR ( Amer) 66, Glucose 311 H, Calcium 10.0, Magnesium 1.5 L, Total Bilirubin 0.4, AST 29, ALT 26, Alkaline Phosphatase 95, Troponin I < 0.01, NT-Pro-B Natriuret Pep 332 H, Total Protein 6.8, Albumin 4.4, Globulin 2.4, Albumin/Globulin Ratio 1.8 03/05/25 19:43: SARS-CoV-2 (PCR) Not detected, Influenza A Untype (PCR) Not detected, Influenza Type B (PCR) Not detected 03/05/25 19:49: Urine Color Yellow, Urine Appearance Clear, Urine pH 6.0, Ur Specific [place] 1.010, Urine Protein Negative, Urine Glucose (UA) 3+, Urine Ketones Negative, Urine Blood Trace-i, Urine Nitrate Negative, Urine Bilirubin Negative, Urine Urobilinogen 0.2, Ur Leukocyte Esterase Negative, Urine RBC 3-5, Urine WBC 3-5, Ur Squamous Epith Cells 5-10, Urine Bacteria 2+ 03/05/25 20:37: Lactate 3.7 H 03/05/25 22:39: POC Glucose 250 H 03/05/25 22:40: Chlamy pneumoniae PCR Not detected, Adenovirus (PCR) Not detected, B. pertussis DNA (PCR) Not detected, Coronavirus OC43 (PCR) Not detected, Coronavirus HKU1 (PCR) Not detected, Coronavirus 229E (PCR) Not detected, SARS-CoV-2 (PCR) Not detected, Coronavirus NL63 (PCR) Not detected, Human Metapneumovir PCR Not detected, Influenza A (H1) PCR Not detected, Influ A (H1N1/09) PCR Not detected, Influenza A (H3) PCR Not detected, Influenza Type A (PCR) Not detected, Influenza Type B (PCR) Not detected, M. pneumoniae (PCR) Not detected, Parainfluenza 1 (PCR) Not detected, Parainfluenza 2 (PCR) Not detected, Parainfluenza 3 (PCR) Not detected, Parainfluenza 4 (PCR) Not detected, RSV (PCR) Not detected, Entero/Rhino (PCR) Not detected 03/05/25 23:29: Lactate 4.2 H, Troponin I < 0.01 03/06/25 01:47: Lactate 4.0 H, Troponin I < 0.01, Lipase 3851 H 03/06/25 05:29: WBC 18.7 H, RBC 4.26, Hgb 11.6 L D, Hct 37.6, MCV 88.3, MCH 26.5 L, MCHC 30.1 L, RDW 15.1, Plt Count 194, MPV 11.6 H, Neut % (Auto) 91.5 H, Lymph % (Auto) 5.1 L, Maries % (Auto) 2.2, Eos % (Auto) 0.0 L, Baso % (Auto) 0.1, Neut # (Auto) 17.1 H, Lymph # (Auto) 1.0, Maries # (Auto) 0.4, Eos # (Auto) 0.0, Baso # (Auto) 0.0, Sodium 136, Potassium 4.2, Chloride 100, Carbon Dioxide 27, Anion Gap 13.2, BUN 38 H, Creatinine 1.10 H, Estimated Creat Clear 76, Estimated GFR 49 L, Est GFR ( Amer) 59, Glucose 291 H, Hemoglobin A1c 8.0 H, Lactate 2.2 H, Calcium 9.1, Total Bilirubin 0.2, AST 27, ALT 22, Alkaline Phosphatase 77, Total Protein 5.9 L, Albumin 3.7 D, Globulin 2.2, Albumin/Globulin Ratio 1.7, Triglycerides 126, Cholesterol 150, LDL Cholesterol Direct 81.61 L, VLDL Cholesterol 25, HDL Cholesterol 39 L, Cholesterol/HDL Ratio 3.8 H I & O for Labs for Last 24 Hours: Intake & Output 03/03/25 03/04/25 03/05/25 03/06/25 23:59 23:59 23:59 23:59 Intake Total 850 / 850 Output Total 600 / 600 Balance 250 / 250 Weight 101.242 kg 102.875 kg Constitutional: Present no acute distress, chronically ill appearing and cooperative Head: Present atraumatic Eyes: Present as per HPI ENT: Present normal exam Neck: Present normal inspection Respiratory: Present decreased breath sounds, rhonchi (Throughout), wheezes (Throughout), able to speak in complete sentences and symmetric chest movement Cardiac: Present Reg Rate and Rhythm GI: Present soft, tenderness (Left quadrant) and normal bowel sounds; Absent distention Rectal (female): Present deferred (female): Present deferred Extremities: Present normal inspection; Absent edema Skin: Present intact and dry; Absent rash Neuro: Present alert, awake and oriented x 3 Assessment and Plan *Assessment and plan (1) Acute exacerbation of chronic obstructive pulmonary disease: Status: Acute Category: Medical Code(s): J44.1 - Chronic obstructive pulmonary disease with (acute) exacerbation (2) Pancreatitis: Status: Acute Category: Medical Code(s): K85.90 - Acute pancreatitis without necrosis or infection, unspecified Plan Yaritza Stallings is a 69-year-old female with medical history significant for COPD (baseline 4 L), degenerative disc disease, left-sided radiculopathy, type 2 diabetes with neuropathy, HFpEF, hypertension, A-fib on Xarelto, GERD, anxiety/depression who presents with acute on chronic mid/low back pain, increased urinary frequency, and shortness of breath. She states she has a longstanding history of mid/low back pain which has become worse over the past 1 to 2 weeks. She notes chronic left-sided radiculopathy that is not any worse. She had a fall 3 days ago in her bathtub trying to reach for the soap without precipitating symptoms. She also notes 1 week of progressive shortness of breath with clear productive cough. However, she states she has been trying to wean her oxygen at home to 2 L from 4 L. She has been adherent to her inhalers, nebulizers but she cannot recall the medication names. She was evaluated by her PCP on 03/04/2025 for her low back pain and received IM Toradol, Decadron and given prednisone 40 mg for 5 days. Patient however states her shortness of breath has not gotten better, and continues to have back pain. Workup in the ED significant for WBC 21.3 (in the setting of recent steroid use), relatively normal VBG, lactic acid 3.8, AGAP 17.2, magnesium 1.5. UA somewhat suggestive for UTI. CT abdomen/pelvis without dissection/aneurysm but did show bilateral nephrolithiasis without obstruction, mild biliary ductal dilation, CT lumbar spine showed chronic advanced degenerative disc and facet arthropathy without acute findings. CT chest also without acute findings. On my evaluation, patient had increased work of breathing and moderate tenderness over the lower thoracic and upper lumbar spine which is worse than normal. Patient also noted left CVA tenderness though this seemed more radiation from her spine. She also had increased work of breathing with diffuse moderate wheezing requiring her baseline 4 L. Given elevated WBC, lactic acid, increased work of breathing with possible UTI meeting sepsis criteria, case discussed with ED provider and decision was made to admit patient for the same. #Acute pancreatitis #Biliary ductal dilation ? On further evaluation, patient has epigastric tenderness with radiation to the mid back. Presented with 1 week of left sided abdominal, flank, mid back pain. Patient continues to have left-sided abdominal and flank pain. ? Ordered lipase, returned as 3851. Calcium normal, follow-up triglycerides. Does not use GLP-1 agonist. Holding Protonix, lisinopril, atorvastatin due to potential cause of pancreatitis. ? CT abdomen does show mild biliary ductal dilation, no necrosis or pseudocyst. LFTs normal. Could be viral with concomitant COPD/HFpEF exacerbation. ? Has had cholecystectomy, but concern for de andre choledocholithiasis versus sphincter of Oddi dysfunction. ? Follow-up RUQ ultrasound, impression no evidence of choledocholithiasis, does note right renal cysts 2.0 cm likely benign. ? Toradol, [place], Dilaudid as needed for pain control. Monitor for toxicity. ? Patient was n.p.o. for right upper quadrant ultrasound this morning, advancing to clear liquid diet. #COPD exacerbation #Suspected HFpEF exacerbation ? Presents with shortness of breath, cough, worsening lower extremity edema 1+. Increased work of breathing, with diffuse moderate wheezing on arrival. ? CT chest without acute infection, respiratory panel also negative. BNP elevated at 332, though can be falsely low with obesity. ? Started DuoNebs every 4 hours, Pulmicort twice daily. ? Continue azithromycin daily for 5 days. Start Levaquin 750 every 24 hours. ? Continue home prednisone 40 mg for 5 days, last day 03/08/2025. ? Lactic acid worsened with fluids, ordered IV Lasix 60 mg once for suspected acute HFpEF. Continue patient on Lasix 40 mg p.o. twice daily. ? Pulmonology consulted, recommendations to continue plan of care. #Severe sepsis #Possible UTI ? Presented with increased urinary frequency with dysuria. UA grossly abnormal. ? Initial WBC 21.3, lactic acid 3.8, with tachypnea. White count slowly trending down, 8.7. Repeat lactic this morning 2.2. Hold off on sepsis bolus due to suspected acute HFpEF. ? Follow-up morning CBC, urine, blood cultures. #Lactic acidosis ? Lactic acid peaked at 4.2, Repeat lactic 2.2 this morning. ? May be related to HFpEF exacerbation, sepsis, albuterol nebs, pancreatitis. Continue treatment as above. ? Follow-up repeat lactic acid. #Hypomagnesemia ? Initial magnesium 1.5. Repleted. #Fall ? Fell in bathtub 3 days ago. PT/OT consulted, pending further recommendations. #Type 2 diabetes with neuropathy ? Hemoglobin A1c 8.0% on admission. ? Lantus 10 units daily, LDSSI, ACHS glucose checks. ? Hold home metformin in the setting of lactic acidosis. ? Continue Jardiance 25 mg daily #Hypertension #A-fib ? Currently rate controlled, BP normal. ? Holding lisinopril possibly contributing to pancreatitis, resume diltiazem 240 mg daily, bisoprolol 10 mg twice daily and spironolactone 25 mg daily. #GERD ? Holding Protonix possibly contributing to pancreatitis. #Anxiety/depression ? Resume fluoxetine 20 mg daily. Full code DVT prophylaxis: Xarelto 20 mg daily Clear liquid diet
--- NOTE | 2025-03-06 10:02 | HMH.PTEV ---
Physical Therapy Evaluation Rehab PT IP Evaluation Start: 03/05/25 22:35 Freq: ONCE Status: Active Protocol: Document 03/06/25 09:57 ASHLEE (Rec: 03/06/25 10:02 ASHLEE [id number]) Subjective/History History History 69-year-old female with medical history significant for COPD (baseline 4 L), degenerative disc disease, left- sided radiculopathy, type 2 diabetes with neuropathy, HFpEF, hypertension, A-fib on Xarelto, GERD, anxiety/ depression who presents with acute on chronic mid/low back pain, increased urinary frequency, and shortness of breath. She states she has a longstanding history of mid/low back pain which has become worse over the past 1 to 2 weeks. She notes chronic left-sided radiculopathy that is not any worse. She had a fall 3 days ago in her bathtub trying to reach for the soap without precipitating symptoms. She also notes 1 week of progressive shortness of breath with clear productive cough. However, she states she has been trying to wean her oxygen at home to 2 L from 4 L. She has been adherent to her inhalers, nebulizers but she cannot recall the medication names. She was evaluated by her PCP on 03/04/2025 for her low back pain and received IM Toradol, Decadron and given prednisone 40 mg for 5 days. Patient however states her shortness of breath has not gotten better, and continues to have back pain. Workup in the ED significant for WBC 21.3 ( in the setting of recent steroid use), relatively normal VBG, lactic acid 3.8, AGAP 17.2, magnesium 1.5. UA somewhat suggestive for UTI. CT abdomen/pelvis without dissection/aneurysm but did show bilateral nephrolithiasis without obstruction, mild biliary ductal dilation, CT lumbar spine showed chronic advanced degenerative disc and facet arthropathy without acute findings. CT chest also without acute findings. On my evaluation, patient had increased work of breathing and moderate tenderness over the lower thoracic and upper lumbar spine which is worse than normal. Patient also noted left CVA tenderness though this seemed more radiation from her spine. She also had increased work of breathing with diffuse moderate wheezing requiring her baseline 4 L. Given elevated WBC, lactic acid, increased work of breathing with possible UTI meeting sepsis criteria, case discussed with ED provider and decision was made to admit patient for the same. Pt reports she lives alone, 6 JT the home, and she is generally independent with all mobility at baseline without AD. She does use NC O2 at all times at 4L/min at home. Subjective Subjective Pt reports L side posterior flank pain this am, but does agree to mobility assessment. [facility] How much help from another person do you currently need... Turning from your None back to your side while in a flat bed without using bedrails? Moving from lying on None back to sitting on the side of a flat bed without using bedrails? Moving to and from a None bed to a chair ( including a wheelchair)? Standing up from a None chair using your arms? (e.g., wheelchair, bedside chair) Walking in hospital None room? Climbing 3-5 steps None with a railing? Mobility Score 24 Mobility Level [facility] Mobility 8 Walk 250 feet or more Mobility Calculator Rehab PT IP Eval Objective Appearance Patient Behavior Appropriate Patient Orientation Person,Place,Time Difficulty following none instructions Speech Pattern Clear Ambulation Patient Able to Yes Ambulate Ambulation Observation IP General Gait No Deviations/Normal Pattern Observation Ambulation Distance 40 (feet) Ambulation Assistive None Device Ambulation Ability Supervision/Stand by Balance Ability to Arise Able, uses arms to help Sitting Balance Steady, safe Standing Balance Steady, wide stance Dynamic Sitting Good Balance Ability Dynamic Standing Fair Balance Ability Transfers Bed Transfer Ability Supervision/Stand by Chair Transfer Supervision/Stand by Ability Sit to Stand Bed Supervision/Stand by Transfer Ability Sit to Stand Chair Supervision/Stand by Transfer Ability Rehab PT IP prob,goals,plan Problems Date of Evaluation: 03/06/25 Discharge Plan PT Discharge Plan Pt is currently independent with all mobility and appropriate to return home once medically stable for d/ c. She would likely benefit from a rolator style walker for improved balance and ability to rest as needed due to SOA in the setting of COPD. No current need for acute skilled therapy services. Eval Complexity Eval Charge Codes 86965 - High Complexity PHYSICIAN CERTIFICATION: I certify the specified therapy services for Yaritza Stallings are required, authorized, and reviewed every 30 days.
--- NOTE | 2025-03-06 10:28 | CARE MANAGER ---
Addendum entered by Heather Cerrato RN 03/06/25 10:29: Patient requests [facility]. Will send information. Original Note: Patient requires the use of a walker for ambulation due to a mobility impairment that cannot be corrected by a cane.
--- NOTE | 2025-03-06 10:29 | SW/DCPLANNER ---
Addendum entered by Nathaly Ya 03/06/25 11:04: [facility] is able to accept patient. Guillermo Flores Original Note: Spoke with patient once she is medically stable and ready for discharge if she would be interested in home health services. Patient stated that she would be. I asked patient if she had a preference in what agency i sent her information to and the patient stated that she does not have a preference. I will fax patient's information to [facility] and will update once i hear back if they can accept the patient or not. Guillermo Flores
[2025-03-06] MEDS: BUSPIRONE HCL 10 MG TABLET PO ×2 (11:02→20:10)
[2025-03-06] MEDS: dilTIAZem ER 240MG CAPSULE 240 MG PO (11:03)
[2025-03-06] MEDS: FLUOXETINE 20MG CAPSULE 20 MG PO ×2 (11:03→20:10)
[2025-03-06] MEDS: EMPAGLIFLOZIN 25MG TABLET 25 MG PO (11:03)
[2025-03-06] MEDS: FLUTICASONE PROP 50MCG NASAL SPRAY 16GM 1 SPRAY NS (11:03)
[2025-03-06] MEDS: BISOPROLOL 5MG TABLET 10 MG PO (11:04)
[2025-03-06] MEDS: LEVOFLOXACIN/D5W 750 MG/150 ML 750 MG/150 ML PIGGYBACK 100 MG IV (11:04)
[2025-03-06 11:37] LABS: POC Glucose,Bedside 288 (70-110)
[2025-03-06 11:51] LABS: Magnesium 1.9 mg/dl (1.6-2.3)
[2025-03-06] MEDS: AZITHROMYCIN 250MG TABLET 500 MG PO (12:40)
--- NOTE | 2025-03-06 15:24 | PC.NURSE ---
Pt is A&O x4. HAs c/o back pain and abdominal discomfort today. Medicated per sep. O2 titrated today down from 4L to 2L NC. She is tolerating well. O2 sats in the lower 90s. Purewick is in place. Pt placed on clear liquids. Tolerating diet. Call light within reach.
[2025-03-06 19:57] LABS: POC Glucose,Bedside 228 (70-110)
[2025-03-06] MEDS: ROPINIROLE 1MG TABLET 0.5 MG PO (20:10)
[2025-03-06] MEDS: MONTELUKAST SODIUM 10MG TAB 10 MG PO (20:10)
[2025-03-06] MEDS: INSULIN GLARGINE 100 UNITS/ML 3ML FLEXPEN 20 UNIT SUBCUT (20:13)
[2025-03-06] MEDS: HYDROCODONE 10MG/APAP 325MG TAB 2 TAB PO (23:26)
[2025-03-07] VITALS (13 sets, daily range): BP systolic 102–130; BP diastolic 42–69; PULSE 65–73; RESP 18–22; TEMP 36.6–36.8; O2SAT 86–96; BMI 33.5
[2025-03-07] MEDS: IPRATROPIUM/ALBUTEROL 3 ML NEB IH ×6 (01:00→22:30)
--- NOTE | 2025-03-07 05:06 | PC.NURSE ---
Patient is alert and oriented x4. Patient took all scheduled medications, besides Bisoprolol. Patients BP was 105/46 with a pulse of 71. Notified MD, order received to withhold bisoprolol for this shift. Patients blood glucose was 228; received 4 units of humalog according to sliding scale protocol, along with 20 units of scheduled Lantus. Patient voiced discomfort on 2L nasal cannula. Notified provider and placed patient back on 4L. Placed a continuous pulse oximeter on patient to monitor oxygen saturation levels. Patients oxygen levels have been dropping to 88 for a short duration before reaching low 90s. RT has given treatments to patient through shift. Patient complained of back pain at 2320 and received ordered PRN pain medication. Patient currently in room resting with eyes close. No additional complaints voiced at this time.
[2025-03-07 05:38] LABS: POC Glucose,Bedside 174 (70-110)
[2025-03-07] MEDS: humaLOG 100 UNITS/ML 10ML VIAL (SSI) SUBCUT ×4 (05:55→20:31)
[2025-03-07 06:27] LABS: Hematocrit 39.2 % (37.0-47.0); Hemoglobin 11.5 g/dL (12.2-16.2); Immature Granulocytes % 1.0 %; Mean Corpuscular HGB Conc 29.3 g/dL (31.8-35.4); Mean Corpuscular Hemoglobin 26.1 pg (27.0-31.2); Mean Corpuscular Volume 89.1 fl (81-99); Nucleated Red Blood Cells % 0 %; Platelet Count 210 K/mm3 (142-424); Red Blood Count 4.40 M/mm3 (4.20-5.40); Red Cell Distribution Width-SD 49.3 fL; White Blood Count 17.4 K/mm3 (4.8-10.8)
[2025-03-07 06:31] LABS: Chloride 102 mmol/L (98-107)
[2025-03-07 06:32] LABS: Albumin Level 3.8 g/dl (3.5-5.0); Potassium 3.7 mmoL/L (3.5-5.1); Sodium 136 mmol/L (136-145)
[2025-03-07 06:34] LABS: Alanine Aminotransferase 22 U/L (12-78); Albumin/Globulin Ratio 1.7 (1.1-1.8); Alkaline Phosphatase 70 U/L (38-126); Anion Gap 9.7 mEq/L (5-15); Aspartate Amino Transferase 23 U/L (14-36); Bilirubin,Total 0.3 mg/dl (0.2-1.3); Blood Urea Nitrogen 34 mg/dl (7-17); Carbon Dioxide 28 mmol/L (22.0-30.0); Creatinine Clearance Estimated 76 mL/min (50-200); Creatinine,Serum 1.10 mg/dl (0.52-1.04); Estimated Glomerular Filt Rate 49 ml/min (>60); GFR (African American) 59 ML/MIN (>60); Globulin 2.2 g/dL (1.3-3.2); Total Protein,Serum 6.0 g/dl (6.3-8.2)
[2025-03-07 06:35] LABS: Calcium 9.0 mg/dl (8.4-10.2); Glucose 169 mg/dl (74-100)
[2025-03-07] MEDS: BUDESONIDE 0.5MG/2ML NEB 0.5 MG IH ×2 (06:40→22:31)
[2025-03-07 06:50] LABS: Cholesterol 160 mg/dl (140-200); HDL Cholesterol 39 mg/dl (40-60); Triglycerides 216 mg/dl (30-150)
[2025-03-07 06:54] LABS: Hemoglobin A1C 7.9 % (4.0-6.0)
--- NOTE | 2025-03-07 07:06 | EXP.ACUTE.PN ---
Subjective *Date: 03/07/25 *Time: 13:31 Interval history: Still quite wheezy on exam. Significant cough. Requiring 3 to 4 L oxygen to maintain sats above 90%. Continues to complain of left-sided abdominal and flank pain. Afebrile. No nausea or vomiting. Requesting to advance diet. Medical Exam Vital signs and Labs for Last 24 Hours: Vital Signs Temp Pulse Pulse Resp BP Pulse Ox O2 Del Method 03/07/25 06:44 Nasal Cannula 03/07/25 06:41 71 03/07/25 06:41 73 03/07/25 06:41 96 Nasal Cannula 03/07/25 05:00 Nasal Cannula 03/07/25 04:00 97.9 F 70 22 102/42 L 86 L Nasal Cannula 03/07/25 03:00 Nasal Cannula 03/07/25 01:00 Nasal Cannula 03/07/25 01:00 71 03/07/25 01:00 70 03/06/25 23:00 Nasal Cannula 03/06/25 22:10 70 03/06/25 22:10 73 03/06/25 21:00 Nasal Cannula 03/06/25 20:00 90 L Nasal Cannula 03/06/25 19:44 98.0 F 71 17 105/46 L 90 L Nasal Cannula 03/06/25 18:45 Nasal Cannula 03/06/25 18:06 70 03/06/25 18:06 71 03/06/25 18:06 91 L Nasal Cannula 03/06/25 17:00 Nasal Cannula 03/06/25 16:00 97.9 F 77 18 107/54 L 91 L Nasal Cannula 03/06/25 15:00 Nasal Cannula 03/06/25 13:48 70 03/06/25 13:48 70 03/06/25 13:48 90 L Nasal Cannula 03/06/25 13:00 Nasal Cannula 03/06/25 12:00 98.2 F 70 18 120/47 L 93 L Nasal Cannula 03/06/25 11:00 Nasal Cannula 03/06/25 09:56 70 03/06/25 09:56 72 03/06/25 09:56 90 L Nasal Cannula 03/06/25 09:00 Nasal Cannula 03/06/25 08:00 Nasal Cannula 03/06/25 08:00 98.5 F 70 18 119/54 L 90 L Nasal Cannula O2 Flow Rate 03/07/25 06:44 3 03/07/25 06:41 03/07/25 06:41 03/07/25 06:41 4 03/07/25 05:00 4 03/07/25 04:00 4 03/07/25 03:00 4 03/07/25 01:00 4 03/07/25 01:00 03/07/25 01:00 03/06/25 23:00 4 03/06/25 22:10 03/06/25 22:10 03/06/25 21:00 4 03/06/25 20:00 4 03/06/25 19:44 2 03/06/25 18:45 2 03/06/25 18:06 03/06/25 18:06 03/06/25 18:06 2 03/06/25 17:00 2 03/06/25 16:00 2 03/06/25 15:00 2 03/06/25 13:48 03/06/25 13:48 03/06/25 13:48 2 03/06/25 13:00 2 03/06/25 12:00 2 03/06/25 11:00 2 03/06/25 09:56 03/06/25 09:56 03/06/25 09:56 2 03/06/25 09:00 2 03/06/25 08:00 4 03/06/25 08:00 4 Intake and Output 03/06/25 03/06/25 03/07/25 15:59 23:59 07:59 Intake Total 510 / 1860 500 / 1860 0 / 0 Output Total 0 / 1900 400 / 1900 1200 / 1200 Balance 510 / -40 100 / -40 -1200 / -1200 Intake: Intake, Oral Amount 360 / 860 500 / 860 0 / 0 Intake, Total IV Amount 150 / 150 Levofloxacin/D5w 750 mg/150 ml 150 / 150 750 mg In 150 ml @ 100 mls/hr IV Q24H [facility] Rx#:[id number] Output: Output, Urine Amount 0 / 1900 400 / 1900 1200 / 1200 Other: Number of Unmeasured Voids 1 0 0 Weight 102.92 kg Patient Weight 03/07/25 23:59 Weight 102.92 kg Laboratory Results - last 24 hr 03/06/25 05:29: Magnesium 1.9 D, LDL Cholesterol Direct 81.61 L 03/06/25 11:11: POC Glucose 288 H 03/06/25 19:37: POC Glucose 228 H 03/07/25 05:30: POC Glucose 174 H 03/07/25 06:05: WBC 17.4 H, RBC 4.40, Hgb 11.5 L, Hct 39.2, MCV 89.1, MCH 26.1 L, MCHC 29.3 L, RDW 15.2, Plt Count 210, MPV 11.7 H, Neut % (Auto) 79.8, Lymph % (Auto) 12.2, [place] % (Auto) 6.8, Eos % (Auto) 0.1, Baso % (Auto) 0.1, Neut # (Auto) 13.9 H, Lymph # (Auto) 2.1, [place] # (Auto) 1.2 H, Eos # (Auto) 0.0, Baso # (Auto) 0.0, Sodium 136, Potassium 3.7, Chloride 102, Carbon Dioxide 28, Anion Gap 9.7, BUN 34 H, Creatinine 1.10 H, Estimated Creat Clear 76, Estimated GFR 49 L, Est GFR ( Amer) 59, Glucose 169 H, Hemoglobin A1c 7.9 H, Calcium 9.0, Total Bilirubin 0.3, AST 23, ALT 22, Alkaline Phosphatase 70, Total Protein 6.0 L, Albumin 3.8, Globulin 2.2, Albumin/Globulin Ratio 1.7, Triglycerides 216 H, Cholesterol 160, LDL Cholesterol Direct 87.08 L, VLDL Cholesterol 43 H, HDL Cholesterol 39 L, Cholesterol/HDL Ratio 4.1 H I & O for Labs for Last 24 Hours: Intake & Output 03/04/25 03/05/25 03/06/25 03/07/25 23:59 23:59 23:59 23:59 Intake Total 1860 / 1860 0 / 0 Output Total 1000 / 1900 1200 / 1200 Balance 860 / -40 -1200 / -1200 Weight 101.242 kg 102.875 kg 102.92 kg Microbiology Reports for the Last 24 Hours: Microbiology 03/05/25 19:49 Urine,Clean Catch Urine Culture - Final NO GROWTH AFTER 48 HOURS 03/05/25 21:35 Blood Blood Culture - Preliminary NO GROWTH AFTER 24 HOURS 03/05/25 21:45 Blood Blood Culture - Preliminary NO GROWTH AFTER 24 HOURS Constitutional: Present mild distress, chronically ill appearing and cooperative Head: Present atraumatic Eyes: Present as per HPI ENT: Present normal exam Neck: Present normal inspection Respiratory: Present decreased breath sounds, rhonchi (Throughout), wheezes (Throughout), able to speak in complete sentences and symmetric chest movement Cardiac: Present Reg Rate and Rhythm GI: Present soft, tenderness (Left quadrant) and normal bowel sounds; Absent distention Rectal (female): Present deferred (female): Present deferred Extremities: Present normal inspection; Absent edema Skin: Present intact and dry; Absent rash Neuro: Present alert, awake and oriented x 3 Assessment and Plan *Assessment and plan (1) Acute exacerbation of chronic obstructive pulmonary disease: Status: Acute Category: Medical Code(s): J44.1 - Chronic obstructive pulmonary disease with (acute) exacerbation (2) Pancreatitis: Status: Acute Category: Medical Code(s): K85.90 - Acute pancreatitis without necrosis or infection, unspecified (3) Acute on chronic respiratory failure with hypoxia and hypercapnia: Status: Acute Category: Medical Code(s): J96.21 - Acute and chronic respiratory failure with hypoxia; J96.22 - Acute and chronic respiratory failure with hypercapnia (4) Diabetes mellitus: Status: Acute Category: Medical Code(s): E11.9 - Type 2 diabetes mellitus without complications (5) Obesity: Status: Acute Qualifiers: Obesity type: due to excess calories Obesity classification: adult class 1 (BMI 30 - 34.9) Serious obesity comorbidity presence: with serious comorbidity Body mass index: BMI 32.0-32.9 Qualified Code(s): E66.811 - Obesity, class 1; E66.09 - Other obesity due to excess calories; Z68.32 - Body mass index [BMI] 32.0-32.9, adult Category: Medical Code(s): E66.9 - Obesity, unspecified (6) Tobacco abuse: Status: Chronic Category: Medical Code(s): Z72.0 - Tobacco use (7) Hyperlipidemia: Status: Chronic Qualifiers: Hyperlipidemia type: mixed hyperlipidemia Qualified Code(s): E78.2 - Mixed hyperlipidemia Category: Medical Code(s): E78.5 - Hyperlipidemia, unspecified Plan Yaritza Stallings is a 69-year-old female with medical history significant for COPD (baseline 4 L), degenerative disc disease, left-sided radiculopathy, type 2 diabetes with neuropathy, HFpEF, hypertension, A-fib on Xarelto, GERD, anxiety/depression who presents with acute on chronic mid/low back pain, increased urinary frequency, and shortness of breath. She states she has a longstanding history of mid/low back pain which has become worse over the past 1 to 2 weeks. She notes chronic left-sided radiculopathy that is not any worse. She had a fall 3 days ago in her bathtub trying to reach for the soap without precipitating symptoms. She also notes 1 week of progressive shortness of breath with clear productive cough. However, she states she has been trying to wean her oxygen at home to 2 L from 4 L. She has been adherent to her inhalers, nebulizers but she cannot recall the medication names. She was evaluated by her PCP on 03/04/2025 for her low back pain and received IM Toradol, Decadron and given prednisone 40 mg for 5 days. Patient however states her shortness of breath has not gotten better, and continues to have back pain. Workup in the ED significant for WBC 21.3 (in the setting of recent steroid use), relatively normal VBG, lactic acid 3.8, AGAP 17.2, magnesium 1.5. UA somewhat suggestive for UTI. CT abdomen/pelvis without dissection/aneurysm but did show bilateral nephrolithiasis without obstruction, mild biliary ductal dilation, CT lumbar spine showed chronic advanced degenerative disc and facet arthropathy without acute findings. CT chest also without acute findings. On my evaluation, patient had increased work of breathing and moderate tenderness over the lower thoracic and upper lumbar spine which is worse than normal. Patient also noted left CVA tenderness though this seemed more radiation from her spine. She also had increased work of breathing with diffuse moderate wheezing requiring her baseline 4 L. Given elevated WBC, lactic acid, increased work of breathing with possible UTI meeting sepsis criteria, case discussed with ED provider and decision was made to admit patient for the same. Advancing diet today. Continues to require inpatient management due to wheeze and dyspnea. Still having pain. Problems addressed as follows: #Acute pancreatitis #Biliary ductal dilation ? On further evaluation, patient has epigastric tenderness with radiation to the mid back. Presented with 1 week of left sided abdominal, flank, mid back pain. Patient continues to have left-sided abdominal and flank pain. ? Ordered lipase, returned as [id number]. Calcium normal, follow-up triglycerides. Does not use GLP-1 agonist. Holding Protonix, lisinopril, atorvastatin due to potential cause of pancreatitis. ? CT abdomen does show mild biliary ductal dilation, no necrosis or pseudocyst. LFTs normal. Could be viral with concomitant COPD/HFpEF exacerbation. ? Has had cholecystectomy, but concern for de andre choledocholithiasis versus sphincter of Oddi dysfunction. ? Continue Toradol, discontinue Dilaudid. Decrease [place] to 1 tab every 4 hours as needed. Monitor for toxicity. -Advance diet to bland's. -Repeat lipase ordered and pending. Liver enzymes remain normal today. No elevation in bilirubin, AST, ALT. Repeat CBC, CMP, magnesium ordered for the morning #COPD exacerbation #Suspected HFpEF exacerbation ? Continue DuoNebs every 4 hours, Pulmicort twice daily. ? Continue azithromycin daily for 5 days. Start Levaquin 750 every 24 hours. ? Continue home prednisone 40 mg for 5 days, last day 03/08/2025. ? Continue patient on Lasix 40 mg p.o. twice daily. ? Pulmonology consulted, recommendations to continue plan of care. - Goal sats greater 90%, currently on 3 L oxygen #Severe sepsis #Possible UTI ? Presented with increased urinary frequency with dysuria. UA grossly abnormal. ? White count improved from 21-17.4. Hemoglobin 11.5. ? Follow-up morning CBC, urine, blood cultures. #Lactic acidosis ? Lactic acid peaked at 4.2, Repeat lactic 2.2 this morning. ? May be related to HFpEF exacerbation, sepsis, albuterol nebs, pancreatitis. Continue treatment as above. ? Follow-up repeat lactic acid. #Hypomagnesemia: Initial magnesium 1.5, improved to 1.9. Repeat ordered for the morning. Replace per protocol #Fall: Fell in bathtub 3 days ago. PT/OT consulted, pending further recommendations. #Type 2 diabetes with neuropathy ? Hemoglobin A1c 7.9 on admission. Increase Lantus to 25 units tonight. Continue sliding scale insulin and fingersticks ACHS. Morning glucose 169 ? Hold home metformin in the setting of lactic acidosis. ? Continue Jardiance 25 mg daily #Hypertension #A-fib ? Currently rate controlled, BP normal. ? Holding lisinopril possibly contributing to pancreatitis, resume diltiazem 240 mg daily, bisoprolol 10 mg twice daily and spironolactone 25 mg daily. #GERD ? Holding Protonix possibly contributing to pancreatitis. #Anxiety/depression ? Resume fluoxetine 20 mg daily. Full code DVT prophylaxis: Xarelto 20 mg daily Clear liquid diet
--- NOTE | 2025-03-07 08:29 | PC.NURSE ---
Patient O2 Sat was 88. Nurse notified.
[2025-03-07] MEDS: HYDROCODONE 10MG/APAP 325MG TAB 2 TAB PO (08:42)
[2025-03-07] MEDS: BISOPROLOL 5MG TABLET 10 MG PO ×2 (08:42→20:30)
[2025-03-07] MEDS: dilTIAZem ER 240MG CAPSULE 240 MG PO (08:42)
[2025-03-07] MEDS: FLUOXETINE 20MG CAPSULE 20 MG PO ×2 (08:43→20:30)
[2025-03-07] MEDS: SPIRONOLACTONE 25MG TABLET 25 MG PO (08:43)
[2025-03-07] MEDS: FUROSEMIDE 40 MG TABLET PO ×2 (08:43→16:33)
[2025-03-07] MEDS: EMPAGLIFLOZIN 25MG TABLET 25 MG PO (08:43)
[2025-03-07] MEDS: FLUTICASONE PROP 50MCG NASAL SPRAY 16GM 1 SPRAY NS (08:44)
[2025-03-07] MEDS: BUSPIRONE HCL 10 MG TABLET PO ×2 (08:44→20:30)
[2025-03-07] MEDS: NYSTATIN TOPICAL POWDER 30GM TP ×3 (08:45→20:30)
[2025-03-07] MEDS: INSULIN GLARGINE 100 UNITS/ML 3ML FLEXPEN 20 UNIT SUBCUT (08:46)
[2025-03-07] MEDS: LEVOFLOXACIN/D5W 750 MG/150 ML 750 MG/150 ML PIGGYBACK 100 MG IV (09:37)
[2025-03-07 09:38] LABS: POC Glucose,Bedside 218 (70-110)
[2025-03-07 11:35] LABS: Lipase 50 U/L (23-300)
[2025-03-07] MEDS: HYDROMORPHONE 2MG/ML SYRINGE 0.5 MG IV (11:50)
[2025-03-07] MEDS: AZITHROMYCIN 250MG TABLET 500 MG PO (12:33)
[2025-03-07] MEDS: HYDROCODONE/APAP 5/325 MG TABLET 1 TAB PO (14:55)
[2025-03-07] MEDS: OXYCODONE 5MG W/APAP 325MG TABLET 1 EACH PO (17:16)
[2025-03-07 20:25] LABS: POC Glucose,Bedside 259 (70-110)
[2025-03-07] MEDS: MONTELUKAST SODIUM 10MG TAB 10 MG PO (20:30)
[2025-03-07] MEDS: INSULIN GLARGINE 100 UNITS/ML 3ML FLEXPEN 25 UNIT SUBCUT (20:31)
[2025-03-07] MEDS: ROPINIROLE 1MG TABLET 0.5 MG PO (20:32)
[2025-03-08] VITALS (10 sets, daily range): BP systolic 99–125; BP diastolic 46–85; PULSE 60–78; RESP 18–21; TEMP 36.5–36.8; O2SAT 89–95; BMI 32.9
[2025-03-08] MEDS: OXYCODONE 5MG W/APAP 325MG TABLET 1 EACH PO ×4 (00:44→20:30)
--- NOTE | 2025-03-08 03:09 | PC.NURSE ---
Patient is alert and oriented x4. Patient took all scheduled medicationsl. Patients blood glucose was 259; received 6 units of humalog according to sliding scale protocol, along with 25 units of scheduled Lantus. Patient on 3L of oxygen. RT has given treatments to patient throughout shift. Patient complained of back pain at 0044 and received ordered PRN pain medication. Patient requested purewick to be removed and voiced wanting to ambulate to the restroom. Patient has been able to ambulate to restroom x1 assist. Patient currently in room resting with eyes closed. No additional complaints voiced at this time.
[2025-03-08 05:37] LABS: POC Glucose,Bedside 119 (70-110)
[2025-03-08] MEDS: IPRATROPIUM/ALBUTEROL 3 ML NEB IH ×4 (06:19→21:58)
[2025-03-08] MEDS: BUDESONIDE 0.5MG/2ML NEB 0.5 MG IH ×2 (06:19→21:58)
[2025-03-08 06:22] LABS: Hematocrit 41.8 % (37.0-47.0); Hemoglobin 12.6 g/dL (12.2-16.2); Immature Granulocytes % 1.2 %; Mean Corpuscular HGB Conc 30.1 g/dL (31.8-35.4); Mean Corpuscular Hemoglobin 26.8 pg (27.0-31.2); Mean Corpuscular Volume 88.7 fl (81-99); Nucleated Red Blood Cells % 0 %; Platelet Count 207 K/mm3 (142-424); Red Blood Count 4.71 M/mm3 (4.20-5.40); Red Cell Distribution Width-SD 48.2 fL; White Blood Count 13.8 K/mm3 (4.8-10.8)
[2025-03-08 06:30] LABS: Albumin Level 4.1 g/dl (3.5-5.0); Chloride 99 mmol/L (98-107)
[2025-03-08 06:31] LABS: POC Glucose,Bedside 319 (70-110)
[2025-03-08 06:31] LABS: Potassium 3.6 mmoL/L (3.5-5.1); Sodium 136 mmol/L (136-145)
[2025-03-08 06:32] LABS: POC Glucose,Bedside 298 (70-110)
[2025-03-08 06:32] LABS: POC Glucose,Bedside 182 (70-110)
[2025-03-08 06:33] LABS: Alanine Aminotransferase 21 U/L (12-78); Albumin/Globulin Ratio 1.9 (1.1-1.8); Alkaline Phosphatase 70 U/L (38-126); Anion Gap 8.6 mEq/L (5-15); Aspartate Amino Transferase 24 U/L (14-36); Bilirubin,Total 0.3 mg/dl (0.2-1.3); Blood Urea Nitrogen 31 mg/dl (7-17); Carbon Dioxide 32 mmol/L (22.0-30.0); Creatinine Clearance Estimated 75 mL/min (50-200); Creatinine,Serum 1.10 mg/dl (0.52-1.04); Estimated Glomerular Filt Rate 49 ml/min (>60); GFR (African American) 59 ML/MIN (>60); Globulin 2.2 g/dL (1.3-3.2); Total Protein,Serum 6.3 g/dl (6.3-8.2)
[2025-03-08 06:34] LABS: Calcium 9.3 mg/dl (8.4-10.2); Glucose 119 mg/dl (74-100)
[2025-03-08 06:42] LABS: Lipase 59 U/L (23-300)
--- NOTE | 2025-03-08 08:16 | PC.NURSE ---
Nurse is aware of low blood pressure 08:16
[2025-03-08] MEDS: BISOPROLOL 5MG TABLET 10 MG PO ×2 (09:22→20:30)
[2025-03-08] MEDS: EMPAGLIFLOZIN 25MG TABLET 25 MG PO (09:22)
[2025-03-08] MEDS: SPIRONOLACTONE 25MG TABLET 25 MG PO (09:23)
[2025-03-08] MEDS: FLUOXETINE 20MG CAPSULE 20 MG PO ×2 (09:23→20:31)
[2025-03-08] MEDS: FLUTICASONE PROP 50MCG NASAL SPRAY 16GM 1 SPRAY NS (09:23)
[2025-03-08] MEDS: dilTIAZem ER 240MG CAPSULE 240 MG PO (09:23)
[2025-03-08] MEDS: FUROSEMIDE 40 MG TABLET PO ×2 (09:23→16:03)
[2025-03-08] MEDS: BUSPIRONE HCL 10 MG TABLET PO ×2 (09:23→20:31)
[2025-03-08] MEDS: NYSTATIN TOPICAL POWDER 30GM TP ×4 (09:24→20:32)
[2025-03-08] MEDS: INSULIN GLARGINE 100 UNITS/ML 3ML FLEXPEN 25 UNIT SUBCUT ×2 (09:28→20:32)
[2025-03-08 09:36] LABS: POC Glucose,Bedside 226 (70-110)
[2025-03-08] MEDS: humaLOG 100 UNITS/ML 10ML VIAL (SSI) SUBCUT ×3 (11:39→20:31)
[2025-03-08 12:04] LABS: POC Glucose,Bedside 194 (70-110)
[2025-03-08 12:29] LABS: Magnesium 1.9 mg/dl (1.6-2.3)
[2025-03-08] MEDS: AZITHROMYCIN 250MG TABLET 500 MG PO (13:05)
--- NOTE | 2025-03-08 17:26 | EXP.ACUTE.PN ---
Subjective *Date: 03/08/25 *Time: 19:14 Interval history: Still quite wheezy today. States she is not really feeling any better. Rhonchorous cough on exam. No nausea or vomiting. Left-sided pain slowly improving. Tolerating p.o. intake. On 4 L this morning due to sats in the high 80s overnight on 2 to 3 L. Afebrile. Medical Exam Vital signs and Labs for Last 24 Hours: Vital Signs Temp Pulse Pulse Resp BP Pulse Ox O2 Del Method 03/08/25 16:00 98.3 F 60 19 101/56 L 93 L Nasal Cannula 03/08/25 13:00 Room Air 03/08/25 11:00 Room Air 03/08/25 10:49 70 03/08/25 10:49 70 03/08/25 10:49 94 L Room Air 03/08/25 09:00 Room Air 03/08/25 08:00 Nasal Cannula 03/08/25 08:00 98.1 F 73 99/46 L 89 L Nasal Cannula 03/08/25 06:45 Nasal Cannula 03/08/25 06:20 70 03/08/25 06:20 70 03/08/25 06:20 94 L Nasal Cannula 03/08/25 05:00 Nasal Cannula 03/08/25 04:00 97.7 F 70 21 125/85 95 Nasal Cannula 03/08/25 03:00 Nasal Cannula 03/08/25 00:51 Nasal Cannula 03/07/25 23:00 Nasal Cannula 03/07/25 22:47 67 03/07/25 22:47 65 03/07/25 21:00 Nasal Cannula 03/07/25 20:00 90 L Nasal Cannula 03/07/25 19:53 98.2 F 70 21 130/69 90 L Nasal Cannula 03/07/25 18:23 67 03/07/25 18:22 68 03/07/25 18:22 Nasal Cannula O2 Flow Rate 03/08/25 16:00 03/08/25 13:00 03/08/25 11:00 03/08/25 10:49 03/08/25 10:49 03/08/25 10:49 3 03/08/25 09:00 03/08/25 08:00 3 03/08/25 08:00 4 03/08/25 06:45 3 03/08/25 06:20 08/10/25 06:20 03/08/25 06:20 3 03/08/25 05:00 3 03/08/25 04:00 4 03/08/25 03:00 03/08/25 00:51 3 03/07/25 23:00 3 03/07/25 22:47 03/07/25 22:47 03/07/25 21:00 3 03/07/25 20:00 3 03/07/25 19:53 4 03/07/25 18:23 03/07/25 18:22 03/07/25 18:22 4 Intake and Output 03/08/25 03/08/25 03/08/25 07:59 15:59 23:59 Intake Total 0 / 720 720 / 720 Output Total 0 / 400 0 / 400 400 / 400 Balance 0 / 320 720 / 320 -400 / 320 Intake: Intake, Oral Amount 0 / 720 720 / 720 Output: Output, Urine Amount 0 / 400 0 / 400 400 / 400 Other: Number of Unmeasured Voids 1 1 1 Weight 100.788 kg Patient Weight 03/08/25 23:59 Weight 100.788 kg Laboratory Results - last 24 hr 03/06/25 05:56: POC Glucose 298 H 03/07/25 11:40: POC Glucose 182 H 03/07/25 16:27: POC Glucose 319 H* 03/07/25 20:04: POC Glucose 259 H 03/08/25 05:23: POC Glucose 119 H 03/08/25 05:50: WBC 13.8 H, RBC 4.71, Hgb 12.6, Hct 41.8, MCV 88.7, MCH 26.8 L, MCHC 30.1 L, RDW 14.9, Plt Count 207, MPV 11.4 H, Neut % (Auto) 63.8, Lymph % (Auto) 26.0, [place] % (Auto) 8.2, Eos % (Auto) 0.4, Baso % (Auto) 0.4, Neut # (Auto) 8.8 H, Lymph # (Auto) 3.6, [place] # (Auto) 1.1 H, Eos # (Auto) 0.1, Baso # (Auto) 0.1, Sodium 136, Potassium 3.6, Chloride 99, Carbon Dioxide 32 H, Anion Gap 8.6, BUN 31 H, Creatinine 1.10 H, Estimated Creat Clear 75, Estimated GFR 49 L, Est GFR ( Amer) 59, Glucose 119 H D, Calcium 9.3, Magnesium 1.9, Total Bilirubin 0.3, AST 24, ALT 21, Alkaline Phosphatase 70, Total Protein 6.3, Albumin 4.1, Globulin 2.2, Albumin/Globulin Ratio 1.9 H, Lipase 59 03/08/25 09:28: POC Glucose 226 H 03/08/25 11:32: POC Glucose 194 H I & O for Labs for Last 24 Hours: Intake & Output 03/05/25 03/06/25 03/07/25 03/08/25 23:59 23:59 23:59 23:59 Intake Total 1860 / 1860 1360 / 1360 720 / 720 Output Total 1000 / 1900 1650 / 1650 400 / 400 Balance 860 / -40 -290 / -290 320 / 320 Weight 101.242 kg 102.875 kg 102.92 kg 100.788 kg Microbiology Reports for the Last 24 Hours: Microbiology 03/05/25 21:35 Blood Blood Culture - Preliminary NO GROWTH AFTER 48 HOURS 03/05/25 21:45 Blood Blood Culture - Preliminary NO GROWTH AFTER 48 HOURS Constitutional: Present no acute distress, chronically ill appearing and cooperative Head: Present atraumatic Eyes: Present as per HPI ENT: Present normal exam Neck: Present normal inspection Respiratory: Present decreased breath sounds, rhonchi (Throughout), wheezes (Throughout), able to speak in complete sentences and symmetric chest movement Cardiac: Present Reg Rate and Rhythm GI: Present soft, tenderness (Left quadrant) and normal bowel sounds; Absent distention Rectal (female): Present deferred (female): Present deferred Extremities: Present normal inspection; Absent edema Skin: Present intact and dry; Absent rash Neuro: Present alert, awake and oriented x 3 Assessment and Plan *Assessment and plan (1) Acute exacerbation of chronic obstructive pulmonary disease: Status: Acute Category: Medical Code(s): J44.1 - Chronic obstructive pulmonary disease with (acute) exacerbation (2) Pancreatitis: Status: Acute Category: Medical Code(s): K85.90 - Acute pancreatitis without necrosis or infection, unspecified (3) Acute on chronic respiratory failure with hypoxia and hypercapnia: Status: Acute Category: Medical Code(s): J96.21 - Acute and chronic respiratory failure with hypoxia; J96.22 - Acute and chronic respiratory failure with hypercapnia (4) Diabetes mellitus: Status: Acute Category: Medical Code(s): E11.9 - Type 2 diabetes mellitus without complications (5) Obesity: Status: Acute Qualifiers: Body mass index: BMI 32.0-32.9 Obesity classification: adult class 1 (BMI 30 - 34.9) Obesity type: due to excess calories Serious obesity comorbidity presence: with serious comorbidity Qualified Code(s): E66.811 - Obesity, class 1; E66.09 - Other obesity due to excess calories; Z68.32 - Body mass index [BMI] 32.0-32.9, adult Category: Medical Code(s): E66.9 - Obesity, unspecified (6) Tobacco abuse: Status: Chronic Category: Medical Code(s): Z72.0 - Tobacco use (7) Hyperlipidemia: Status: Chronic Qualifiers: Hyperlipidemia type: mixed hyperlipidemia Qualified Code(s): E78.2 - Mixed hyperlipidemia Category: Medical Code(s): E78.5 - Hyperlipidemia, unspecified Plan Yaritza Stallings is a 69-year-old female with medical history significant for COPD (baseline 4 L), degenerative disc disease, left-sided radiculopathy, type 2 diabetes with neuropathy, HFpEF, hypertension, A-fib on Xarelto, GERD, anxiety/depression who presents with acute on chronic mid/low back pain, increased urinary frequency, and shortness of breath. She states she has a longstanding history of mid/low back pain which has become worse over the past 1 to 2 weeks. She notes chronic left-sided radiculopathy that is not any worse. She had a fall 3 days ago in her bathtub trying to reach for the soap without precipitating symptoms. She also notes 1 week of progressive shortness of breath with clear productive cough. However, she states she has been trying to wean her oxygen at home to 2 L from 4 L. She has been adherent to her inhalers, nebulizers but she cannot recall the medication names. She was evaluated by her PCP on 03/04/2025 for her low back pain and received IM Toradol, Decadron and given prednisone 40 mg for 5 days. Patient however states her shortness of breath has not gotten better, and continues to have back pain. Workup in the ED significant for WBC 21.3 (in the setting of recent steroid use), relatively normal VBG, lactic acid 3.8, AGAP 17.2, magnesium 1.5. UA somewhat suggestive for UTI. CT abdomen/pelvis without dissection/aneurysm but did show bilateral nephrolithiasis without obstruction, mild biliary ductal dilation, CT lumbar spine showed chronic advanced degenerative disc and facet arthropathy without acute findings. CT chest also without acute findings. On my evaluation, patient had increased work of breathing and moderate tenderness over the lower thoracic and upper lumbar spine which is worse than normal. Patient also noted left CVA tenderness though this seemed more radiation from her spine. She also had increased work of breathing with diffuse moderate wheezing requiring her baseline 4 L. Given elevated WBC, lactic acid, increased work of breathing with possible UTI meeting sepsis criteria, case discussed with ED provider and decision was made to admit patient for the same. Tolerating p.o. intake. Abdominal pain improving. Still has significant wheeze on exam. Advancing diet today. Continues to require inpatient management due to wheeze and dyspnea. Problems addressed as follows: #Acute pancreatitis #Biliary ductal dilation ? On further evaluation, patient has epigastric tenderness with radiation to the mid back. Presented with 1 week of left sided abdominal, flank, mid back pain. Patient continues to have left-sided abdominal and flank pain. ? Ordered lipase, returned as [id number]. Calcium normal, follow-up triglycerides. Does not use GLP-1 agonist. Holding Protonix, lisinopril, atorvastatin due to potential cause of pancreatitis. ? CT abdomen does show mild biliary ductal dilation, no necrosis or pseudocyst. LFTs normal. Could be viral with concomitant COPD/HFpEF exacerbation. ? Has had cholecystectomy, but concern for de andre choledocholithiasis versus sphincter of Oddi dysfunction. ? Continue Toradol, oxycodone 5 mg every 6 hours as needed for breakthrough pain. Monitor for toxicity. - Tolerating bland diet - Repeat lipase less than 100. Liver enzymes remain normal. No elevation in bilirubin, AST, ALT. Repeat CBC, CMP, magnesium ordered for the morning #COPD exacerbation #Suspected HFpEF exacerbation ? Continue DuoNebs every 4 hours, Pulmicort twice daily. ? Continue azithromycin daily for 5 days. Start Levaquin 750 every 24 hours. ? Continue home prednisone 40 mg for 5 days, last day 03/08/2025. ? Continue patient on Lasix 40 mg p.o. twice daily. ? Pulmonology consulted, recommendations to continue plan of care. - Goal sats greater 90%, currently on 4 L oxygen #Severe sepsis #Possible UTI ? Presented with increased urinary frequency with dysuria. UA grossly abnormal. ? White count improved to 13.8. Hemoglobin 12.6 ? Follow-up morning CBC, urine, blood cultures. #Hypomagnesemia: Initial magnesium 1.5, improved to 1.9. Repeat ordered for the morning. Replace per protocol #Fall: Fell in bathtub 3 days ago. PT/OT consulted, pending further recommendations. #Type 2 diabetes with neuropathy ? Hemoglobin A1c 7.9 on admission. Increase Lantus to 25 units tonight. Continue sliding scale insulin and fingersticks ACHS. Morning glucose 169 ? Hold home metformin in the setting of lactic acidosis. ? Continue Jardiance 25 mg daily #Hypertension #A-fib ? Currently rate controlled, BP normal. ? Holding lisinopril possibly contributing to pancreatitis, resume diltiazem 240 mg daily, bisoprolol 10 mg twice daily and spironolactone 25 mg daily. #GERD ? Holding Protonix possibly contributing to pancreatitis. #Anxiety/depression ? Resume fluoxetine 20 mg daily. Full code DVT prophylaxis: Xarelto 20 mg daily Clear liquid diet
[2025-03-08 20:17] LABS: POC Glucose,Bedside 201 (70-110)
[2025-03-08] MEDS: ROPINIROLE 1MG TABLET 0.5 MG PO (20:31)
[2025-03-08] MEDS: MONTELUKAST SODIUM 10MG TAB 10 MG PO (20:31)
[2025-03-09] VITALS (7 sets, daily range): BP systolic 98–118; BP diastolic 53–60; PULSE 70–96; RESP 18; TEMP 36.7–36.8; O2SAT 90–94; BMI 32.9
[2025-03-09] MEDS: IPRATROPIUM/ALBUTEROL 3 ML NEB IH ×4 (01:55→12:55)
--- NOTE | 2025-03-09 04:09 | PC.NURSE ---
patient is alert and oriented x4, able to ambulate in room with assistance but reports shortness of breath when ambulating, patient requested a bedside commode, patient was tearful at the start of this shift, after receiving night time medications patient has slept well, patient tolerating 3 L O2 with sats remaining >90%, complained of pain once that improved with medication
[2025-03-09] MEDS: OXYCODONE 5MG W/APAP 325MG TABLET 1 EACH PO ×2 (05:24→10:36)
[2025-03-09 05:28] LABS: POC Glucose,Bedside 147 (70-110)
[2025-03-09 06:06] LABS: Hematocrit 43.3 % (37.0-47.0); Hemoglobin 13.4 g/dL (12.2-16.2); Immature Granulocytes % 1.2 %; Mean Corpuscular HGB Conc 30.9 g/dL (31.8-35.4); Mean Corpuscular Hemoglobin 26.9 pg (27.0-31.2); Mean Corpuscular Volume 86.9 fl (81-99); Nucleated Red Blood Cells % 0 %; Platelet Count 208 K/mm3 (142-424); Red Blood Count 4.98 M/mm3 (4.20-5.40); Red Cell Distribution Width-SD 47.9 fL; White Blood Count 14.3 K/mm3 (4.8-10.8)
[2025-03-09 06:18] LABS: POC Glucose,Bedside 323 (70-110)
[2025-03-09] MEDS: BUDESONIDE 0.5MG/2ML NEB 0.5 MG IH (06:20)
[2025-03-09 06:42] LABS: Albumin Level 4.0 g/dl (3.5-5.0); Chloride 99 mmol/L (98-107); Potassium 3.5 mmoL/L (3.5-5.1); Sodium 139 mmol/L (136-145)
[2025-03-09 06:44] LABS: Blood Urea Nitrogen 29 mg/dl (7-17); Creatinine Clearance Estimated 82 mL/min (50-200); Creatinine,Serum 1.00 mg/dl (0.52-1.04); Estimated Glomerular Filt Rate 55 ml/min (>60); GFR (African American) 66 ML/MIN (>60)
[2025-03-09 06:45] LABS: Alanine Aminotransferase 21 U/L (12-78); Albumin/Globulin Ratio 1.8 (1.1-1.8); Alkaline Phosphatase 69 U/L (38-126); Anion Gap 10.5 mEq/L (5-15); Aspartate Amino Transferase 23 U/L (14-36); Bilirubin,Total 0.3 mg/dl (0.2-1.3); Calcium 9.4 mg/dl (8.4-10.2); Carbon Dioxide 33 mmol/L (22.0-30.0); Globulin 2.2 g/dL (1.3-3.2); Glucose 160 mg/dl (74-100); Total Protein,Serum 6.2 g/dl (6.3-8.2)
[2025-03-09 06:46] LABS: Magnesium 1.9 mg/dl (1.6-2.3)
--- NOTE | 2025-03-09 08:23 | P.PN_ITS ---
Subjective *Date: 03/09/25 *Time: 08:23 Medical Exam Vital signs and Labs for Last 24 Hours: Vital Signs Temp Pulse Pulse Resp BP Pulse Ox O2 Del Method 03/09/25 06:41 Nasal Cannula 03/09/25 06:21 70 03/09/25 06:21 70 03/09/25 06:21 94 L Nasal Cannula 03/09/25 05:00 Nasal Cannula 03/09/25 04:00 98.3 F 70 18 118/60 90 L Nasal Cannula 03/09/25 03:00 Nasal Cannula 03/09/25 02:00 77 03/09/25 01:59 73 03/09/25 01:00 Nasal Cannula 03/08/25 23:00 Nasal Cannula 03/08/25 22:15 75 03/08/25 22:00 78 03/08/25 21:00 Nasal Cannula 03/08/25 20:00 Nasal Cannula 03/08/25 20:00 98.3 F 70 18 118/71 91 L Nasal Cannula 03/08/25 18:52 Nasal Cannula 03/08/25 18:00 71 03/08/25 17:55 Nasal Cannula 03/08/25 17:30 72 03/08/25 17:00 Nasal Cannula 03/08/25 16:00 98.3 F 60 19 101/56 L 93 L Nasal Cannula 03/08/25 15:00 Nasal Cannula 03/08/25 13:00 Nasal Cannula 03/08/25 11:00 Nasal Cannula 03/08/25 10:49 70 03/08/25 10:49 70 03/08/25 10:49 94 L Room Air 03/08/25 09:00 Nasal Cannula O2 Flow Rate FiO2 03/09/25 06:41 3 03/09/25 06:21 03/09/25 06:21 03/09/25 06:21 3 03/09/25 05:00 3 03/09/25 04:00 3 03/09/25 03:00 3 03/09/25 02:00 03/09/25 01:59 03/09/25 01:00 3 03/08/25 23:00 3 03/08/25 22:15 03/08/25 22:00 03/08/25 21:00 3 03/08/25 20:00 3 03/08/25 20:00 03/08/25 18:52 3 32 03/08/25 18:00 03/08/25 17:55 3 03/08/25 17:30 03/08/25 17:00 3 03/08/25 16:00 03/08/25 15:00 3 03/08/25 13:00 3 03/08/25 11:00 3 03/08/25 10:49 03/08/25 10:49 03/08/25 10:49 3 03/08/25 09:00 3 Intake and Output 03/08/25 03/09/25 03/09/25 23:59 07:59 15:59 Intake Total 342 / 1087 Output Total 800 / 800 500 / 500 Balance -458 / 287 -475 / -475 Intake: Intake, Oral Amount 342 / 1087 Output: Output, Urine Amount 800 / 800 500 / 500 Other: Number of Unmeasured Voids 1 1 Weight 100.788 kg Patient Weight 03/09/25 23:59 Weight 100.788 kg Laboratory Results - last 24 hr 03/08/25 05:50: Magnesium 1.9 03/08/25 09:28: POC Glucose 226 H 03/08/25 11:32: POC Glucose 194 H 03/08/25 15:58: POC Glucose 323 H* 03/08/25 20:03: POC Glucose 201 H 03/09/25 05:14: POC Glucose 147 H 03/09/25 05:30: WBC 14.3 H, RBC 4.98, Hgb 13.4, Hct 43.3, MCV 86.9, MCH 26.9 L, MCHC 30.9 L, RDW 15.0, Plt Count 208, MPV 11.4 H, Neut % (Auto) 61.9, Lymph % (Auto) 27.6, [place] % (Auto) 8.3, Eos % (Auto) 0.7, Baso % (Auto) 0.3, Neut # (Auto) 8.8 H, Lymph # (Auto) 3.9, [place] # (Auto) 1.2 H, Eos # (Auto) 0.1, Baso # (Auto) 0.0, Sodium 139, Potassium 3.5, Chloride 99, Carbon Dioxide 33 H, Anion G ap 10.5, BUN 29 H, Creatinine 1.00, Estimated Creat Clear 82, Estimated GFR 55 L , Est GFR ( Amer) 66, Glucose 160 H D, Calcium 9.4, Magnesium 1.9, Total Bilirubin 0.3, AST 23, ALT 21, Alkaline Phosphatase 69, Total Protein 6.2 L, Albumin 4.0, Globulin 2.2, Albumin/Globulin Ratio 1.8 I & O for Labs for Last 24 Hours: Intake & Output 03/06/25 03/07/25 03/08/25 03/09/25 23:59 23:59 23:59 23:59 Intake Total 1860 / 1860 1360 / 1360 1062 / 1087 Output Total 1000 / 1900 1650 / 1650 800 / 800 500 / 500 Balance 860 / -40 -290 / -290 262 / 287 -475 / -475 Weight 102.875 kg 102.92 kg 100.788 kg 100.788 kg The patient's infection will respond to the chosen ABx?: Yes (BLOOD AND URINE CX NO GROWTH AT 48 HR, AFEBRILE OVER 24 HR) Is the patient receiving the right drug, dose, and route?: Yes Could a more targeted ABx be ordered?: No How long ABx needed (days)?: 5
--- NOTE | 2025-03-09 08:33 | P.DS_ITS ---
<Statement entered by Carlos Beatty MD - 03/09/25 13:31> Rounded on patient after nurse practitioner. Personally examined and interviewed patient. Agree with exam findings and care plan as documented. General Admission date:: 03/05/25 Discharge date: 03/09/25 HPI HPI HPI: Yaritza Stallings is a 69-year-old female with medical history significant for COPD (baseline 4 L), degenerative disc disease, left-sided radiculopathy, type 2 diabetes with neuropathy, HFpEF, hypertension, A-fib on Xarelto, GERD, anxiety/depression who presents with acute on chronic mid/low back pain, increased urinary frequency, and shortness of breath. She states she has a longstanding history of mid/low back pain which has become worse over the past 1 to 2 weeks. She notes chronic left-sided radiculopathy that is not any worse. She had a fall 3 days ago in her bathtub trying to reach for the soap without precipitating symptoms. She also notes 1 week of progressive shortness of breath with clear productive cough. However, she states she has been trying to wean her oxygen at home to 2 L from 4 L. She has been adherent to her inhalers, nebulizers but she cannot recall the medication names. She was evaluated by her PCP on 03/04/2025 for her low back pain and received IM Toradol, Decadron and given prednisone 40 mg for 5 days. Patient however states her shortness of breath has not gotten better, and continues to have back pain. Workup in the ED significant for WBC 21.3 (in the setting of recent steroid use), relatively normal VBG, lactic acid 3.8, AGAP 17.2, magnesium 1.5. UA somewhat suggestive for UTI. CT abdomen/pelvis without dissection/aneurysm but did show bilateral nephrolithiasis without obstruction, mild biliary ductal dilation, CT lumbar spine showed chronic advanced degenerative disc and facet arthropathy without acute findings. CT chest also without acute findings. On my evaluation, patient had increased work of breathing and moderate tenderness over the lower thoracic and upper lumbar spine which is worse than normal. Patient also noted left CVA tenderness though this seemed more radiation from her spine. She also had increased work of breathing with diffuse moderate wheezing requiring her baseline 4 L. Given elevated WBC, lactic acid, increased work of breathing with possible UTI meeting sepsis criteria, case discussed with ED provider and decision was made to admit patient for the same. Hospital Course Hospital Course Hospital Course: Yaritza Stallings is a 69-year-old female with medical history significant for COPD (baseline 4 L), degenerative disc disease, left-sided radiculopathy, type 2 diabetes with neuropathy, HFpEF, hypertension, A-fib on Xarelto, GERD, anxiety/depression who presents with acute on chronic mid/low back pain, increased urinary frequency, and shortness of breath. She states she has a longstanding history of mid/low back pain which has become worse over the past 1 to 2 weeks. She notes chronic left-sided radiculopathy that is not any worse. She had a fall 3 days ago in her bathtub trying to reach for the soap without precipitating symptoms. She also notes 1 week of progressive shortness of breath with clear productive cough. However, she states she has been trying to wean her oxygen at home to 2 L from 4 L. She has been adherent to her inhalers, nebulizers but she cannot recall the medication names. She was evaluated by her PCP on 03/04/2025 for her low back pain and received IM Toradol, Decadron and given prednisone 40 mg for 5 days. Patient however states her shortness of breath has not gotten better, and continues to have back pain. Workup in the ED significant for WBC 21.3 (in the setting of recent steroid use), relatively normal VBG, lactic acid 3.8, AGAP 17.2, magnesium 1.5. UA somewhat suggestive for UTI. CT abdomen/pelvis without dissection/aneurysm but did show bilateral nephrolithiasis without obstruction, mild biliary ductal dilation, CT lumbar spine showed chronic advanced degenerative disc and facet arthropathy without acute findings. CT chest also without acute findings. On my evaluation, patient had increased work of breathing and moderate tenderness over the lower thoracic and upper lumbar spine which is worse than normal. Patient also noted left CVA tenderness though this seemed more radiation from her spine. She also had increased work of breathing with diffuse moderate wheezing requiring her baseline 4 L. Given elevated WBC, lactic acid, increased work of breathing with possible UTI meeting sepsis criteria, case discussed with ED provider and decision was made to admit patient for the same. Tolerating p.o. intake. Abdominal pain improved. #Acute pancreatitis #Biliary ductal dilation ? Left-sided flank/abdominal pain improved. Intermittently still mild pain present. No abnormalities on CT. Pain likely related to muscle strain from cough. ? Lipase on admission 3851, normalized to 50 the following day. Has remained normal. Patient does not use GLP-1 agonist. ? CT abdomen does show mild biliary ductal dilation, no necrosis or pseudocyst. LFTs normal. Could be viral with concomitant COPD/HFpEF exacerbation. ? Patient tolerating regular diet without any issues. - LFTs, lipase remain unremarkable. No electrolyte abnormalities, kidney function within normal limits. #COPD exacerbation #Suspected HFpEF exacerbation ? Patient received prednisone 40 mg for 5 days during her inpatient stay. ? Completed Levaquin 750 daily x 5 days during stay. Completed azithromycin 500 mg daily x 5 days during stay. ? Continue patient on Lasix 40 mg p.o. twice daily. ? Pulmonology consulted, recommendations to continue current medication regimen. Will follow-up in 1 to 2 weeks outpatient. - Patient currently on 3 L nasal cannula, O2 saturation 93%. Patient baseline O2 between 2 to 4 L at home. #Severe sepsis #Possible UTI ? Presented with increased urinary frequency with dysuria. UA grossly abnormal. Patient completed 5 days Levaquin 750 daily, urine culture negative no growth after 48 hours. ? White count improved to 14.3. Hemoglobin 13.4. ? Blood cultures and urine cultures show no growth after 48 hours. #Hypomagnesemia: Initial magnesium 1.5, improved to 1.9-day of discharge. #Fall: Fell in the bathtub 3 days prior to admission. PT/OT consulted, recomm endations that patient can return home with a rollator style walker. Patient received walker prior to discharge. #Type 2 diabetes with neuropathy ? Hemoglobin A1c 7.9 on admission. Continue insulin glargine 35 units SQ twice daily. ? Continue metformin 1000 mg twice daily at discharge. ? Continue Jardiance 25 mg daily at discharge. #Hypertension #A-fib ? Currently rate controlled, BP normal. ? Continue Xarelto 20 mg daily at discharge. ? Continue lisinopril 2.5 mg at bedtime, diltiazem 240 mg daily, bisoprolol 10 mg twice daily and spironolactone 25 mg daily at discharge. #GERD ? Continue Protonix 40 mg daily discharge. #Anxiety/depression ? Continue fluoxetine 20 mg daily at discharge. Total time spent on discharge 37 minutes in counseling, documentation, chart review, and direct care with patient. Exam Data for Last 24 hours Vital signs and Labs for Last 24 Hours: Temp Pulse Resp BP Pulse Ox O2 Del Method O2 Flow Rate 98.3 F 70 18 118/60 94 L Nasal Cannula 3 03/09/25 04:00 03/09/25 06:21 03/09/25 04:00 03/09/25 04:00 03/09/25 06:21 03/09/25 06:41 03/09/25 06:41 FiO2 32 03/08/25 18:52 Laboratory Results - last 24 hr 03/08/25 05:50: Magnesium 1.9 03/08/25 09:28: POC Glucose 226 H 03/08/25 11:32: POC Glucose 194 H 03/08/25 15:58: POC Glucose 323 H* 03/08/25 20:03: POC Glucose 201 H 03/09/25 05:14: POC Glucose 147 H 03/09/25 05:30: WBC 14.3 H, RBC 4.98, Hgb 13.4, Hct 43.3, MCV 86.9, MCH 26.9 L, MCHC 30.9 L, RDW 15.0, Plt Count 208, MPV 11.4 H, Neut % (Auto) 61.9, Lymph % (Auto) 27.6, [place] % (Auto) 8.3, Eos % (Auto) 0.7, Baso % (Auto) 0.3, Neut # (Auto) 8.8 H, Lymph # (Auto) 3.9, [place] # (Auto) 1.2 H, Eos # (Auto) 0.1, Baso # (Auto) 0.0, Sodium 139, Potassium 3.5, Chloride 99, Carbon Dioxide 33 H, Anion Gap 10.5, BUN 29 H, Creatinine 1.00, Estimated Creat Clear 82, Estimated GFR 55 L, Est GFR ( Amer) 66, Glucose 160 H D, Calcium 9.4, Magnesium 1.9, Total Bilirubin 0.3, AST 23, ALT 21, Alkaline Phosphatase 69, Total Protein 6.2 L, [place] umin 4.0, Globulin 2.2, Albumin/Globulin Ratio 1.8 I & O for Last 24 hours: Intake & Output 03/06/25 03/07/25 03/08/25 03/09/25 23:59 23:59 23:59 23:59 Intake Total 1860 / 1860 1360 / 1360 1062 / 1087 Output Total 1000 / 1900 1650 / 1650 800 / 800 500 / 500 Balance 860 / -40 -290 / -290 262 / 287 -475 / -475 Weight 102.875 kg 102.92 kg 100.788 kg 100.788 kg Constitutional Constitutional: no acute distress (but easily short of breath ), obese, chronically ill appearing and cooperative *Routine HEENT Exam Head: Present normocephalic and atraumatic Eye: Present EOMI and PERRL ENT: Present mucous membranes moist and oropharynx clear *Routine Neck Exam Neck: Present supple and full ROM *Routine Respiratory Exam Respiratory: Present prolonged expiratory phase, wheezes (significantly improved, appreciated posteriorly), diminished air movement, normal respiratory effort (Slight increased work of breathing) and able to speak in complete sentences; Absent accessory muscle use, CTA bilaterally, respiratory distress or crackles *Routine Cardiovascular Exam Cardiovascular: Present RRR, Normal S1 and Normal S2; Absent murmur *Routine Abdominal Exam Abdominal: Present soft and normoactive bowel sounds; Absent tenderness, distended, rebound or guarding *Routine Rectal Exam Patient deferred: visual exam *Routine Exam Patient deferred: external exam *Routine Extremities Exam Extremities: Present full ROM, pulses intact and normal capillary refill; Absent edema or tenderness *Routine Skin Exam Skin: Present intact; Absent erythema *Routine Neurological Exam Neurological: Present alert, oriented X3, CN II-XII intact, moving all extremities, normal tone and normal speech; Absent sensory deficit, motor deficit or altered mental status Routine Psychiatric Exam Psychiatric: Present normal affect, normal thought process, cooperative and depressed; Absent anxious Results Data Completed and Pending Labs on day of discharge: Labs from last 24 hours 03/09/25 03/09/25 03/08/25 05:30 05:14 20:03 WBC 14.3 H RBC 4.98 Hgb 13.4 Hct 43.3 MCV 86.9 MCH 26.9 L MCHC 30.9 L RDW 15.0 Plt Count 208 MPV 11.4 H Neut % (Auto) 61.9 Lymph % (Auto) 27.6 [place] % (Auto) 8.3 Eos % (Auto) 0.7 Baso % (Auto) 0.3 Neut # (Auto) 8.8 H Lymph # (Auto) 3.9 [place] # (Auto) 1.2 H Eos # (Auto) 0.1 Baso # (Auto) 0.0 Sodium 139 Potassium 3.5 Chloride 99 Carbon Dioxide 33 H Anion Gap 10.5 BUN 29 H Creatinine 1.00 Estimated Creat Clear 82 Estimated GFR 55 L Est GFR ( Amer) 66 Glucose 160 H D POC Glucose 147 H 201 H Calcium 9.4 Magnesium 1.9 Total Bilirubin 0.3 AST 23 ALT 21 Alkaline Phosphatase 69 Total Protein 6.2 L Albumin 4.0 Globulin 2.2 Albumin/Globulin Ratio 1.8 03/08/25 03/08/25 03/08/25 15:58 11:32 09:28 WBC RBC Hgb Hct MCV MCH MCHC RDW Plt Count MPV Neut % (Auto) Lymph % (Auto) [place] % (Auto) Eos % (Auto) Baso % (Auto) Neut # (Auto) Lymph # (Auto) [place] # (Auto) Eos # (Auto) Baso # (Auto) Sodium Potassium Chloride Carbon Dioxide Anion Gap BUN Creatinine Estimated Creat Clear Estimated GFR Est GFR ( Amer) Glucose POC Glucose 323 H* 194 H 226 H Calcium Magnesium Total Bilirubin AST ALT Alkaline Phosphatase Total Protein Albumin Globulin Albumin/Globulin Ratio 03/08/25 05:50 WBC RBC Hgb Hct MCV MCH MCHC RDW Plt Count MPV Neut % (Auto) Lymph % (Auto) [place] % (Auto) Eos % (Auto) Baso % (Auto) Neut # (Auto) Lymph # (Auto) [place] # (Auto) Eos # (Auto) Baso # (Auto) Sodium Potassium Chloride Carbon Dioxide Anion Gap BUN Creatinine Estimated Creat Clear Estimated GFR Est GFR ( Amer) Glucose POC Glucose Calcium Magnesium 1.9 Total Bilirubin AST ALT Alkaline Phosphatase Total Protein Albumin Globulin Albumin/Globulin Ratio Preliminary micro results at discharge 03/05/25 21:35 Blood Culture - Preliminary Blood NO GROWTH AFTER 48 HOURS 03/05/25 21:45 Blood Culture - Preliminary Blood NO GROWTH AFTER 48 HOURS DS: Diagnosis Discharge Diagnosis (1) Acute exacerbation of chronic obstructive pulmonary disease: Status: Acute Code(s): J44.1 - Chronic obstructive pulmonary disease with (acute) exacerbation (2) Pancreatitis: Status: Acute Code(s): K85.90 - Acute pancreatitis without necrosis or infection, unspecified (3) Acute on chronic respiratory failure with hypoxia and hypercapnia: Status: Acute Code(s): J96.21 - Acute and chronic respiratory failure with hypoxia; J96.22 - Acute and chronic respiratory failure with hypercapnia (4) Diabetes mellitus: Status: Acute Code(s): E11.9 - Type 2 diabetes mellitus without complications (5) Obesity: Status: Acute Code(s): E66.9 - Obesity, unspecified Qualifiers: Body mass index: BMI 32.0-32.9 Obesity classification: adult class 1 (BMI 30 - 34.9) Obesity type: due to excess calories Serious obesity c omorbidity presence: with serious comorbidity Qualified Code(s): E66.811 - Obesity, class 1; E66.09 - Other obesity due to excess calories; Z68.32 - Body mass index [BMI] 32.0-32.9, adult (6) Tobacco abuse: Status: Chronic Code(s): Z72.0 - Tobacco use (7) Hyperlipidemia: Status: Chronic Code(s): E78.5 - Hyperlipidemia, unspecified Qualifiers: Hyperlipidemia type: mixed hyperlipidemia Qualified Code(s): E78.2 - Mixed hyperlipidemia Meds Home Medications and Allergies Home Medications ?Medication ?Instructions ?Recorded ?Confirmed ?Type pantoprazole 40 mg tablet,delayed 40 mg PO DAILY 04/1703/06/25 History release buspirone 10 mg tablet 10 mg PO BID 90 days #180 ta bs 08/07/24 03/06/25 Rx fluoxetine 20 mg capsule 20 mg PO BID 90 days #180 ca ps 08/07/24 03/06/25 Rx atorvastatin 80 mg tablet 80 mg PO HS 12/23/24 5 History diltiazem HCl 240 mg 240 mg PO DAILY 12/23/2403/23 History capsule,extended release 24 hr furosemide 40 mg tablet 40 mg PO DAILY 12/23/2403/23 History lisinopril 2.5 mg tablet 2.5 mg PO HS 12/23/24 History rivaroxaban 20 mg tablet (Xarelto) 20 mg PO QPMWITHMEA L 12/23/24 03/06/25 History bisoprolol fumarate 10 mg tablet 10 mg PO BID 90 days #180 tabs 01/29/25 03/06/25 Rx magnesium oxide 400 mg (241.3 mg 400 mg PO BID #60 tab s 01/29/25 03/06/25 Rx magnesium) tablet metformin 500 mg tablet 1,000 mg (2 x 500 mg) PO BID #120 01/29/25 03/06/25 Rx tabs montelukast 10 mg tablet 10 mg PO PM #30 tabs 5 03/06/25 Rx ropinirole 0.25 mg tablet 0.5 mg (2 x 0.25 mg) PO HS # 60 tabs 03/02/25 03/06/25 Rx naproxen 500 mg tablet 500 mg PO BID #30 tabs 03/0403/06/25 Rx diclofenac sodium 1 % topical gel 2 g topical QID #50 grams 03/05/25 03/06/25 Rx empagliflozin 25 mg tablet 25 mg PO DAILY 03/06/2503/23 History (Jardiance) fluticasone propionate 50 1 spray intranasal DAILY 03/2303/06/25 History mcg/actuation nasal spray,suspension insulin glargine 100 unit/mL (3 35 unit SQ BID 5 03/06/25 History mL) subcutaneous pen (Basaglar KwikPen U-100 Insulin) spironolactone 25 mg tablet 25 mg PO DAILY 03/06/25 History New Prescriptions to Start Prescriptions: Allergies Allergy/AdvReac Type Severity Reaction Status Date / Time verapamil Allergy Severe Rash Verified 03/04/25 15:01 Iodine and Iodide Containing Allergy Mild Rash Verified 03/04/25 15:01 Produc Penicillins (PENICILLINS) Allergy Unknown I-RASH Verified 03/04/25 15:01 Sulfa (Sulfonamide Allergy Unknown NA-NAUSEA/V Verified 03/04/25 15:01 Antibiotics) (SULFA OMITING (SULFONAMIDE ANTIBIOTICS)) Discharge Plan Disposition Patient Disposition: Home Health Service Condition: Fair Discharge Order Discharge Orders: Discharge Order (Routine); Ordered 03/09/25 Ordered By: Patria Smith Follow up Plan Follow up with: Yanick Mandel APRN [Primary Care Provider, Family Practice] - Enter time for follow up Kris Pabon MD [Physician, Pulmonology] - 04/09/25 1:00 pm Prescriptions/Medication Reconciliation: Continued naproxen 500 mg tablet 500 mg PO BID Qty: 30 0RF diclofenac sodium 1 % gel 2 g topical QID Qty: 50 1RF Rx Instructions: apply to single elbow, wrist or hand; for hand includes palm/fingers/back of hand fluoxetine 20 mg capsule 20 mg PO BID 90 Days Qty: 180 3RF buspirone 10 mg tablet 10 mg PO BID 90 Days Qty: 180 3RF magnesium oxide 400 mg (241.3 mg magnesium) tablet 400 mg PO BID Qty: 60 1RF metformin 500 mg tablet 1,000 mg PO BID Qty: 120 5RF bisoprolol fumarate 10 mg tablet 10 mg PO BID 90 Days Qty: 180 3RF montelukast 10 mg tablet 10 mg PO PM Qty: 30 2RF ropinirole 0.25 mg tablet 0.5 mg PO HS Qty: 60 5RF Rx Instructions: administer 1-3 hours before bedtime furosemide 40 mg tablet 40 mg PO DAILY atorvastatin 80 mg tablet 80 mg PO HS diltiazem HCl 240 mg capsule,extended release 24hr 240 mg PO DAILY lisinopril 2.5 mg tablet 2.5 mg PO HS Xarelto 20 mg tablet 20 mg PO QPMWITHMEAL Rx Instructions: TAKE ONE TABLET BY MOUTH EVERY DAY with evening meal pantoprazole 40 mg tablet,delayed release (DR/EC) 40 mg PO DAILY spironolactone 25 mg tablet 25 mg PO DAILY Rx Instructions: TAKE ONE TABLET BY MOUTH EVERY DAY Jardiance 25 mg tablet 25 mg PO DAILY fluticasone propionate 50 mcg/actuation spray,suspension 1 spray intranasal DAILY Rx Instructions: instill 1 SPRAY IN EACH NOSTRIL EVERY DAY insulin glargine [Basaglar KwikPen U-100 Insulin] 100 unit/mL (3 mL) insulin pen 35 unit SQ BID Rx Instructions: INJECT 35 units SUBCUTANEOUSLY TWICE DAILY Other Ambulatory Orders: Home Medical Equipment (Routine) Location: None Selected Ordered By: Patria Smith Problem Reconciliation Problems Reviewed?: Yes Patient Discharge Instructions ACTIVITY: Continue current activity DIET: continue same diet Patient Instructions: DI for Chronic Obstructive Pulmonary Disease, DI for Respiratory Failure, Stop Light Pneumonia, Stop Light COPD, Stop Light Heart Failure Print Language: Divehi Providers Primary Care Provider: Yanick Mandel Admit Provider: Carlos Beatty Attending Provider: Carlos Beatty
[2025-03-09] MEDS: ONDANSETRON 4MG/2ML VIAL 4 MG IV (09:22)
[2025-03-09] MEDS: EMPAGLIFLOZIN 25MG TABLET 25 MG PO (09:23)
[2025-03-09] MEDS: BUSPIRONE HCL 10 MG TABLET PO (09:23)
[2025-03-09] MEDS: SPIRONOLACTONE 25MG TABLET 25 MG PO (09:23)
[2025-03-09] MEDS: INSULIN GLARGINE 100 UNITS/ML 3ML FLEXPEN 25 UNIT SUBCUT (09:23)
[2025-03-09] MEDS: BISOPROLOL 5MG TABLET 10 MG PO (09:23)
[2025-03-09] MEDS: FLUOXETINE 20MG CAPSULE 20 MG PO (09:23)
[2025-03-09] MEDS: FUROSEMIDE 40 MG TABLET PO (09:23)
[2025-03-09] MEDS: FLUTICASONE PROP 50MCG NASAL SPRAY 16GM 1 SPRAY NS (09:23)
[2025-03-09] MEDS: dilTIAZem ER 240MG CAPSULE 240 MG PO (09:23)
[2025-03-09] MEDS: NYSTATIN TOPICAL POWDER 30GM TP ×2 (09:27→12:37)
[2025-03-09 09:39] LABS: POC Glucose,Bedside 160 (70-110)
--- NOTE | 2025-03-09 09:47 | EXP.PULM.PN ---
Subjective *Date: 03/09/25 *Time: 13:00 Interval history: No acute respiratory vents overnight. Patient denies any new respiratory complaints. Complains of nausea this morning. Pulmonology Exam Inpatient Vital signs and Labs for Last 24 Hours: Temp Pulse Resp BP Pulse Ox O2 Del Method O2 Flow Rate 98.1 F 96 H 18 98/53 L 94 L Nasal Cannula 3 03/09/25 08:00 03/09/25 09:37 03/09/25 08:00 03/09/25 08:00 03/09/25 08:00 03/09/25 09:00 03/09/25 09:00 FiO2 32 03/08/25 18:52 Laboratory Results - last 24 hr 03/08/25 05:50: Magnesium 1.9 03/08/25 11:32: POC Glucose 194 H 03/08/25 15:58: POC Glucose 323 H* 03/08/25 20:03: POC Glucose 201 H 03/09/25 05:14: POC Glucose 147 H 03/09/25 05:30: WBC 14.3 H, RBC 4.98, Hgb 13.4, Hct 43.3, MCV 86.9, MCH 26.9 L, MCHC 30.9 L, RDW 15.0, Plt Count 208, MPV 11.4 H, Neut % (Auto) 61.9, Lymph % (Auto) 27.6, [place] % (Auto) 8.3, Eos % (Auto) 0.7, Baso % (Auto) 0.3, Neut # (Auto) 8.8 H, Lymph # (Auto) 3.9, [place] # (Auto) 1.2 H, Eos # (Auto) 0.1, Baso # (Auto) 0.0, Sodium 139, Potassium 3.5, Chloride 99, Carbon Dioxide 33 H, Anion Gap 10.5, BUN 29 H, Creatinine 1.00, Estimated Creat Clear 82, Estimated GFR 55 L, Est GFR ( Amer) 66, Glucose 160 H D, Calcium 9.4, Magnesium 1.9, Total Bilirubin 0.3, AST 23, ALT 21, Alkaline Phosphatase 69, Total Protein 6.2 L, Albumin 4.0, Globulin 2.2, Albumin/Globulin Ratio 1.8 03/09/25 09:22: POC Glucose 160 H Temp Pulse Resp BP Pulse Ox O2 Del Method O2 Flow Rate 98.5 F 70 18 119/54 L 90 L Nasal Cannula 4 03/06/25 08:00 03/06/25 08:00 03/06/25 08:00 03/06/25 08:00 03/06/25 08:00 03/06/25 08:00 03/06/25 08:00 Laboratory Results - last 24 hr 03/05/25 19:35: WBC 21.3 H*, RBC 4.78, Hgb 13.1, Hct 41.4, MCV 86.6, MCH 27.4, MCHC 31.6 L, RDW 14.7, Plt Count 250, MPV 11.8 H, Neut % (Auto) 90.5 H, Lymph % (Auto) 5.7 L, [place] % (Auto) 2.9, Eos % (Auto) 0.0 L, Baso % (Auto) 0.1, Neut # (Auto) 19.2 H, Lymph # (Auto) 1.2, [place] # (Auto) 0.6, Eos # (Auto) 0.0, Baso # (Auto) 0.0, VBG pH 7.35, VBG pCO2 43.5, VBG pO2 67.7 H, VBG HCO3 23.5, VBG Total CO2 24.9, VBG O2 Saturation 92.3 H, VBG Base Excess -2.1, VBG Lactic Acid 3.8 H, Sodium 137, Potassium 4.2, Chloride 100, Carbon Dioxide 24, Anion Gap 17.2 H, BUN 33 H, Creatinine 1.00, Estimated Creat Clear 81, Estimated GFR 55 L, Est GFR ( Amer) 66, Glucose 311 H, Calcium 10.0, Magnesium 1.5 L, Total Bilirubin 0.4, AST 29, ALT 26, Alkaline Phosphatase 95, Troponin I < 0.01, NT-Pro-B Natriuret Pep 332 H, Total Protein 6.8, Albumin 4.4, Globulin 2.4, Albumin/Globulin Ratio 1.8 03/05/25 19:43: SARS-CoV-2 (PCR) Not detected, Influenza A Untype (PCR) Not detected, Influenza Type B (PCR) Not detected 03/05/25 19:49: Urine Color Yellow, Urine Appearance Clear, Urine pH 6.0, Ur Specific [place] 1.010, Urine Protein Negative, Urine Glucose (UA) 3+, Urine Ketones Negative, Urine Blood Trace-i, Urine Nitrate Negative, Urine Bilirubin Negative, Urine Urobilinogen 0.2, Ur Leukocyte Esterase Negative, Urine RBC 3-5, Urine WBC 3-5, Ur Squamous Epith Cells 5-10, Urine Bacteria 2+ 03/05/25 20:37: Lactate 3.7 H 03/05/25 22:39: POC Glucose 250 H 03/05/25 22:40: Chlamy pneumoniae PCR Not detected, Adenovirus (PCR) Not detected, B. pertussis DNA (PCR) Not detected, Coronavirus OC43 (PCR) Not detected, Coronavirus HKU1 (PCR) Not detected, Coronavirus 229E (PCR) Not detected, SARS-CoV-2 (PCR) Not detected, Coronavirus NL63 (PCR) Not detected, Human Metapneumovir PCR Not detected, Influenza A (H1) PCR Not detected, Influ A (H1N1/09) PCR Not detected, Influenza A (H3) PCR Not detected, Influenza Type A (PCR) Not detected, Influenza Type B (PCR) Not detected, M. pneumoniae (PCR) Not detected, Parainfluenza 1 (PCR) Not detected, Parainfluenza 2 (PCR) Not detected, Parainfluenza 3 (PCR) Not detected, Parainfluenza 4 (PCR) Not detected, RSV (PCR) Not detected, Entero/Rhino (PCR) Not detected 03/05/25 23:29: Lactate 4.2 H, Troponin I < 0.01 03/06/25 01:47: Lactate 4.0 H, Troponin I < 0.01, Lipase 3851 H 03/06/25 05:29: WBC 18.7 H, RBC 4.26, Hgb 11.6 L D, Hct 37.6, MCV 88.3, MCH 26.5 L, MCHC 30.1 L, RDW 15.1, Plt Count 194, MPV 11.6 H, Neut % (Auto) 91.5 H, Lymph % (Auto) 5.1 L, [place] % (Auto) 2.2, Eos % (Auto) 0.0 L, Baso % (Auto) 0.1, Neut # (Auto) 17.1 H, Lymph # (Auto) 1.0, [place] # (Auto) 0.4, Eos # (Auto) 0.0, Baso # (Auto) 0.0, Sodium 136, Potassium 4.2, Chloride 100, Carbon Dioxide 27, Anion Gap 13.2, BUN 38 H, Creatinine 1.10 H, Estimated Creat Clear 76, Estimated GFR 49 L, Est GFR ( Amer) 59, Glucose 291 H, Hemoglobin A1c 8.0 H, Lactate 2.2 H, Calcium 9.1, Total Bilirubin 0.2, AST 27, ALT 22, Alkaline Phosphatase 77, Total Protein 5.9 L, Albumin 3.7 D, Globulin 2.2, Albumin/Globulin Ratio 1.7, Triglycerides 126, Cholesterol 150, LDL Cholesterol Direct 81.61 L, VLDL Cholesterol 25, HDL Cholesterol 39 L, Cholesterol/HDL Ratio 3.8 H I & O for Labs for Last 24 Hours: Intake & Output 03/06/25 03/07/25 03/08/25 03/09/25 23:59 23:59 23:59 23:59 Intake Total 1860 / 1860 1360 / 1360 1062 / 1087 Output Total 1000 / 1900 1650 / 1650 800 / 800 500 / 500 Balance 860 / -40 -290 / -290 262 / 287 -475 / -475 Weight 226 lb 12.8 oz 226 lb 14.4 oz 222 lb 3.2 oz 222 lb 3.192 oz Intake & Output 03/03/25 03/04/25 03/05/25 03/06/25 23:59 23:59 23:59 23:59 Intake Total 850 / 850 Output Total 600 / 600 Balance 250 / 250 Weight 223 lb 3.2 oz 226 lb 12.8 oz Constitutional: Present moderate distress Head: Present normocephalic and atraumatic ENT: Present normal exam, normal oropharynx and mucous membranes moist Neck: Present normal inspection and full ROM Respiratory: Present prolonged expiratory phase, respiratory distress, wheezes and able to speak in complete sentences; Absent diminished air movement Cardiac: Present S1/S2, Tachycardia and radial pulses present GI: Present soft, distention and tenderness; Absent guarding Rectal (female): Present deferred (female): Present deferred Skin: Present intact; Absent cyanosis or jaundice Neuro: Present alert, awake and oriented x 3 Extremities: Present normal inspection; Absent clubbing or cyanosis Psychiatric: Present normal affect and cooperative Assessment and Plan *Assessment and plan (1) Acute on chronic respiratory failure with hypoxia and hypercapnia: Status: Acute Category: Medical Code(s): J96.21 - Acute and chronic respiratory failure with hypoxia; J96.22 - Acute and chronic respiratory failure with hypercapnia Plan Ms. Stallings is a 69-year-old female greater than [id number] smoking history COPD bronchiectasis history of recurrent pneumonia type 2 diabetes mellitus heart failure preserved EF hypertension A-fib on Xarelto presented to the ER with worsening respiratory distress and back pain. Also admits worsening respiratory distress along with worsening wheezing. Denies any worsening cough/worsening productive phlegm. Afebrile. Hemodynamically stable. Neutrophilic predominant leukocytosis. Comprehensive respiratory viral PCR panel negative CT chest upon admission no dense consolidative airspace changes. No groundglass opacities. No pleural effusions. CT abdomen reported mild biliary ductal dilatation. Calyceal renal stones with no evidence of hydronephrosis Patient otherwise being managed for acute pancreatitis/UTI.. Blood and urine cultures pending. Prior sputum cultures Klebsiella and stenotrophomonas. Not concern for pneumonia/airspace disease on this admission Interval update: No acute respiratory vents overnight. Continued to be needing oxygen supplementation at 2 to 3 L. Blood cultures no growth so far. Plan: DuoNebs every 8 along with Pulmicort every 12 scheduled Oxygen supplementation to maintain O2 saturation below 90% when able. Weaned to 2 L again this morning. Saturating 96 to 97% on 3 L nasal cannula at rest. Complete 5 days of antibiotics for community-acquired pneumonia, currently levofloxacin daily. # Thank you for involving pulmonary in this patient care. Will continue to follow.
--- NOTE | 2025-03-09 11:22 | SW/DCPLANNER ---
Patient currently receives meals from [employer] and is on the wait list for [facility] Waiver services.
[2025-03-09] MEDS: humaLOG 100 UNITS/ML 10ML VIAL (SSI) SUBCUT (11:29)
[2025-03-09] MEDS: AZITHROMYCIN 250MG TABLET 500 MG PO (12:37)
--- NOTE | 2025-03-10 09:58 | SW/DCPLANNER ---
Spoke with patient on the phone. Patient stated that she is doing okay just cant keep food down. Patient stated that she is aware of her upcoming appointments. Patient stated that she was not prescribed any new medicine. Patient stated that she has no concerns or questions at this time. Guillermo Flores
[2025-03-12 16:10] LABS: POC Glucose,Bedside 170 (70-110)
== END 2025-03-09 14:08 | disposition home health service (06) | DRG 871 ==
LOC: ER 22:32 → 2ND 03-06 01:42
PROVIDERS: Physician Assistant; Student in an Organized Health Care Education/Training Program; Admitting Provider Internal Medicine Adolescent Medicine; Emergency Provider Student in an Organized Health Care Education/Training Program; PCP Nurse Practitioner Family; Visit Provider Internal Medicine Adolescent Medicine
DX: A41.9 Sepsis, unspecified organism (principal); I50.33 Acute on chronic diastolic (congestive) heart failure; K85.90 Acute pancreatitis without necrosis or infection, unspecified; J96.22 Acute and chronic respiratory failure with hypercapnia; J96.21 Acute and chronic respiratory failure with hypoxia; J18.9 Pneumonia, unspecified organism; J44.1 Chronic obstructive pulmonary disease with (acute) exacerbation; N39.0 Urinary tract infection, site not specified; J44.0 Chronic obstructive pulmonary disease with (acute) lower respiratory infection; E11.40 Type 2 diabetes mellitus with diabetic neuropathy, unspecified; I11.0 Hypertensive heart disease with heart failure; F32.A Depression, unspecified; K83.8 Other specified diseases of biliary tract; R65.20 Severe sepsis without septic shock; E66.09 Other obesity due to excess calories; E66.811 Obesity, class 1; Z68.32 Body mass index [BMI] 32.0-32.9, adult; I48.0 Paroxysmal atrial fibrillation; E83.42 Hypomagnesemia; F41.9 Anxiety disorder, unspecified; K21.9 Gastro-esophageal reflux disease without esophagitis; M51.16 Intervertebral disc disorders with radiculopathy, lumbar region; M47.26 Other spondylosis with radiculopathy, lumbar region; E11.65 Type 2 diabetes mellitus with hyperglycemia; D35.01 Benign neoplasm of right adrenal gland; N20.0 Calculus of kidney; K42.9 Umbilical hernia without obstruction or gangrene; E78.2 Mixed hyperlipidemia; W18.2XXA Fall in (into) shower or empty bathtub, initial encounter; Y93.89 Activity, other specified; Y92.002 Bathroom of unspecified non-institutional (private) residence as the place of occurrence of the external cause; Z95.0 Presence of cardiac pacemaker; Z86.16 Personal history of COVID-19; Z87.891 Personal history of nicotine dependence; Z88.2 Allergy status to sulfonamides; Z88.0 Allergy status to penicillin; Z88.8 Allergy status to other drugs, medicaments and biological substances; Z79.4 Long term (current) use of insulin; Z79.01 Long term (current) use of anticoagulants; Z79.84 Long term (current) use of oral hypoglycemic drugs; Z79.52 Long term (current) use of systemic steroids; Z79.51 Long term (current) use of inhaled steroids; Z79.899 Other long term (current) drug therapy
CPT/HCPCS: 36415; 71045; 71250; 72131; 74177; 76705; 80053; 80061; 81001; 82803; 82962; 83036; 83605; 83690; 83735; 83880; 84484; 85025; 87040; 87086; 87633; 87636; 93005; 94640; 94761; 97163; 97166; J0456; J0696; J1171; J1650; J1885; J1938; J1956; J2270; J2405; J2919; J3475; J7050; J7120; Q9967

== ENCOUNTER 2025-03-18 11:26 | Outpatient (POV) | payer MEDICARE, MEDICAID, SELFPAY ==
--- OUTSIDE RECORDS SUMMARY | 2025-03-18 11:30 | XMS_ITS | Clinical Summary ---
Author Organization [facility] Address [address] [place] [address] Phone Care Team Providers Care Account Representative Name Role Phone Unavailable Primary Care Provider Unavailabl e Allergies Active Allergy Reactions Criticality Noted Date Comments Iodine Nausea And Vomiting 08/18/2009 Penicillins Swelling High 08/18/2009 Sulfa (Sulfonamide Antibiotics) Hives 03/30 Medications Nebulizer Accessories (A.I.R.S NEBULIZER REPLACEMENT) Kit Need New nebulizer 1 Kit 0 012 Active albuterol (VENTOLIN HFA) 90 mcg/actuation inhalerIndications:Wheel Aligner gisselle airway obstruction, not elsewhere classified Inhale [...] 04/03/12 soapp 04/03/12 = 7 cathy 10/31/12 05/02/13([id number]) UDS 05/02/13 Problem Noted Date Diagnosed Date [...] C Ab Negative Negative [facility] Blood specimen (specimen) 04/12/2017 3:13 PM EDT 04/12/2017 7:28 PM EDT us Jahaira Purdy GRIEF COUNSELOR HEMATOLOGY ORDERABLES Final Re sult [facility] [address] [place] [address] from Last 3 Months or Most Recently Relevant to Health Maintenance Insurance [employer] [address]
--- OUTSIDE RECORDS SUMMARY | 2025-03-18 11:30 | XMS_ITS | Clinical Summary ---
Author Organization [facility] Address [address] 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 1 Active HYDROcodone-rebecca taminophen (Lucas) 7.5-325 MG tablet 1 Active losartan (Cozaar) [...] 2003 UKY-Zoster Vaccines (1 of 2) 2003 [id number] Vaccine (3 - 2023- season) 2024 04/11/2021, [...] Antibody Negative Negative 09/05/2023 3:48 AM EST [facility] Blood Venous blood specimen / Unknown Venipuncture / Unknown 09/05/2023 2:58 AM EST 09/05/2023 3:06 AM EST us Junior Thomson MD LAB BLOOD ORDERABLES Final Result [facility] [address] [place] [address] from Last 3 Months or Most Recently Relevant to Health Maintenance Insurance MEDICAID MEDICARE Advance Directives * Full Code (Latest Code Status on File) Date Activated Date Inactivated Comments 09/05/2023 5:32 AM 09/05/2023 5:40 PM Question Answer Comments Patient has decision-making capacity? 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
--- NOTE | 2025-03-18 12:31 | EXP.PAIN.SOA ---
[facility] Disclaimer: The information contained in this section may have been updated after the patient was seen, as this information can be updated by other users. Medical History Acute on chronic respiratory failure with hypoxia and hypercapnia Chronic, continuous use of opioids Overuse of medication Pneumonia Pre-operative cardiovascular examination Pacemaker lead malfunction Pacemaker at end of battery life Vulvar cyst Candidal intertrigo Bronchiectasis, non-tuberculous COPD (chronic obstructive pulmonary disease) Acute exacerbation of chronic obstructive pulmonary disease Stopped smoking with greater than 30 pack year history History of asthma Family history of asthma Allergic rhinitis, unspecified History of 2019 novel coronavirus disease (COVID-19) COPD (chronic obstructive pulmonary disease) Acute respiratory failure with hypoxia COPD exacerbation Encounter for screening for malignant neoplasm of lung in current smoker with 30 pack year history or greater Stopped smoking with greater than 30 pack year history History of asthma Family history of asthma Allergic rhinitis History of 2019 novel coronavirus disease (COVID-19) COPD exacerbation Hyperlipemia PAF (paroxysmal atrial fibrillation) COPD (chronic obstructive pulmonary disease) On statin therapy Diabetes (~06/2020) Cardiac pacemaker in situ Fatigue HHD (hypertensive heart disease) Surgical History History of tonsillectomy History of cholecystectomy Hx of tonsillectomy History of arthroplasty of right knee Hx of cholecystectomy Family History Other Cancer Coronary artery disease Diabetes Hyperlipidemia Hypertension Social History Smoking Status: Current every day smoker tobacco type: cigarettes packs per day: 1 smoking status stop date: 09/12/2022 second hand exposure: Yes alcohol intake: never substance use type: denies use current occupational status: disabled and other Travel in the last 8 weeks?: None household members: none housing: house marital status: number of children: 0 current occupational exposures/hazards: No caffeine: Yes PM Subjective & Objective Subjective Subjective:: Patient is a pleasant 69-year-old female who presents today for worsening low back and left leg numbness and tingling. She rates it at 10 out of 10. Patient does state that she has recently been hospitalized for kidney stones, pancreatitis and pneumonia. Patient states she is still trying to recover from all this however states that her low back and leg symptoms are severe and interfering with her ability perform activities of daily living such as cooking and cleaning. Patient is wanting to see about getting scheduled for an injection as previously her last injection did help however was more temporary. Patient would like to see if the next injection does last longer. Patient has continued conservative therapy. Patient was previously given pregabalin 25 mg at bedtime from our office. She states that she did not notice improvement with this but did not have any side effects. Her Anibal has been reviewed and is appropriate. Review of Systems: General: No recent weight changes, no fever, no sleep disturbances Respiratory: No cough, no shortness of air, no recurring pulmonary infections Cardiovascular/peripheral vascular: No chest pain, no palpitations, no edema, no shortness of breath Gastrointestinal: No new onset incontinence, normal bowel movements reported Genitourinary: No new onset incontinence Musculoskeletal: Low back pain, left leg pain Psychiatric: [Normal mood/affect] Neurological: [Denies weakness in extremities], [denies balance issues] Pain at rest (0-10 scale): 10 Objective Objective:: Physical Exam: General: Alert and oriented x3, no acute distress, pleasant and cooperative Lungs: Respirations even and unlabored, symmetrical chest expansion Eyes: PERRL Musculoskeletal: Flexion and extension of lumbar [spine] somewhat guarded secondary to pain, [antalgic gait noted] positive leg raise Neurological: Speech clear, no gross sensory deficit Has patient had previous pain injection?: No Conservative treatment options previously tried: Home exercise plan Length of treatment: Longer than 12 weeks Meds Home Medications and Allergies Home Medications ?Medication ?Instructions ?Recorded ?Confirmed ?Type pantoprazole 40 mg tablet,delayed 40 mg PO DAILY 04/17/24 03/06/25 History release buspirone 10 mg tablet 10 mg PO BID 90 days #180 tabs 08/07/24 03/06/25 Rx fluoxetine 20 mg capsule 20 mg PO BID 90 days #180 caps 08/07/24 03/06/25 Rx atorvastatin 80 mg tablet 80 mg PO HS 12/23/24 03/06/25 History diltiazem HCl 240 mg 240 mg PO DAILY 12/23/24 03/06/25 History capsule,extended release 24 hr furosemide 40 mg tablet 40 mg PO DAILY 12/23/24 03/06/25 History lisinopril 2.5 mg tablet 2.5 mg PO HS 12/23/24 03/06/25 History rivaroxaban 20 mg tablet (Xarelto) 20 mg PO QPMWITHMEAL 12/23/24 03/06/25 History bisoprolol fumarate 10 mg tablet 10 mg PO BID 90 days #180 tabs 01/29/25 03/06/25 Rx magnesium oxide 400 mg (241.3 mg 400 mg PO BID #60 tabs 01/29/25 03/06/25 Rx magnesium) tablet metformin 500 mg tablet 1,000 mg (2 x 500 mg) PO BID #120 01/29/25 03/06/25 Rx tabs montelukast 10 mg tablet 10 mg PO PM #30 tabs 02/26/25 03/06/25 Rx ropinirole 0.25 mg tablet 0.5 mg (2 x 0.25 mg) PO HS #60 tabs 03/02/25 03/06/25 Rx naproxen 500 mg tablet 500 mg PO BID #30 tabs 03/04/25 03/06/25 Rx diclofenac sodium 1 % topical gel 2 g topical QID #50 grams 03/05/25 03/06/25 Rx empagliflozin 25 mg tablet 25 mg PO DAILY 03/06/25 03/06/25 History (Jardiance) fluticasone propionate 50 1 spray intranasal DAILY 03/06/25 03/06/25 History mcg/actuation nasal spray,suspension insulin glargine 100 unit/mL (3 35 unit SQ BID 03/06/25 03/06/25 History mL) subcutaneous pen (Basaglar KwikPen U-100 Insulin) spironolactone 25 mg tablet 25 mg PO DAILY 03/06/25 03/06/25 History New Prescriptions to Start Prescriptions: Allergies Allergy/AdvReac Type Severity Reaction Status Date / Time verapamil Allergy Severe Rash Verified 03/04/25 15:01 Iodine and Iodide Containing Allergy Mild Rash Verified 03/04/25 15:01 Produc Penicillins (PENICILLINS) Allergy Unknown I-RASH Verified 03/04/25 15:01 Sulfa (Sulfonamide Allergy Unknown NA-NAUSEA/V Verified 03/04/25 15:01 Antibiotics) (SULFA OMITING (SULFONAMIDE ANTIBIOTICS)) Assessment and Plan *Assessment and plan (1) Lumbar radiculopathy: Status: Acute Category: Medical Code(s): M54.16 - Radiculopathy, lumbar region (2) Degenerative disc disease: Status: Acute Category: Medical Plan patient is experiencing worsening pain in her low back with numbness and tingling into her lower extremities. She did state during today's visit that the left leg does cause the worse numbness and tingling but does still have some along the right side patient did have limited range of motion of her lumbar spine with a positive leg raise. I did discuss with patient that I do believe they would benefit from a lumbar epidural steroid injection. Risk and benefits were discussed with patient and the patient would like to proceed forward with this plan of care. Patient is currently on blood thinners written by Dr. Bonner's office. We will reach out to this provider and confirm that she can stop taking this medication prior to this procedure.. Patient has tried and failed conservative therapy including oral medications, heat and ice, topicals and continued at home stretching exercise for longer than 12 weeks between injections. Patient has had chronic back pain for longer than 6 months. Patient did previously have a lumbar epidural back in October that provided 50% relief and felt like it did at least ease down some of the severity of pain for longer than 2 months. We will schedule the patient for an LESI L5-S1 under fluoroscopy. I will also send in a prescription of pregabalin 75 mg at bedtime with a 1 month supply and send in a 2-week dose of baclofen 10 mg 3 times daily. Patient has been instructed to contact the clinic with any concerns before the next appointment. Dr. Hawkins has reviewed this note and agrees with this plan of care. This note was dictated using voice recognition software and make contain errors or omissions. All injections are used with Lidocaine, Bupivacaine and dexamethasone. Occasionally urine drug screen is needed to verify patient's compliance with our office pain contract. This is ordered based off specific treatments related to chronic pain with the potential to abuse certain medications.
[2025-03-18 14:17] VITALS: BP 106/51; PULSE 70; RESP 18; O2SAT 94; BMI 32.5
--- OUTSIDE RECORDS SUMMARY | 2025-05-08 20:00 | XMS_ITS | Clinical Summary ---
Author Organization Unknown Care Team Providers Care Pedicab Driver Name Role Phone DELBERT MADRIGAL, BRIANNA Unavailable Unavailable NUBIA SOTO, FEDE Unavailable Unavailable Payers Payer Name Policy Type Policy Number Effective Date Expira tion Date MEDICARE.[facility] [id number] Problems Condition Name Condition Details Condition Category [...] PAROXYSMAL ATRIAL FIBRILLATION Active 03-11 00:00: 00 SEPSIS, UNSPECIFIED ORGANISM Active 03-11 00:00: 00 SEVERE SEPSIS WITHOUT SEPTIC SHOCK Active 03-11 00:00: 00 LUMBAGO WITH SCIATICA, [...] CIGARETTES, UNCOMPLICATE D Active 03-11 00:00: 00 DEPENDENCE ON SUPPLEMENTAL OXYGEN Active 03-11 00:00: 00 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 (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) USE OF ANTICOAGULAN TS Active 03-11 00:00: 00 [facility] (CURRENT) USE OF NON-STEROIDA L NON-INFLAM (NSAID) Active 03-11 00:00: 00 [facility] (CURRENT) USE OF INHALED STEROIDS Active 03-11 00:00: 00 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 (CURRENT) USE OF INSULIN Active 03-11 00:00: 00 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 (CURRENT) USE OF ORAL HYPOGLYCEMIC DRUGS Active [...] to adverse reactions Active 03-11 12:39: 01 Vital Signs Vital Name Observation Time Observation Value Commen ts Temperature 2025-03-17 16:08:00.000 98 [degF] Temperature 2025-03-11 13:14:00.000 97.2 [degF] BMI (%) 2025-03-11 12:42:43.000 32 kg/m2 Height 2025-03-11 12:42:39.000 69 [in_us] Pulse 2025-03-17 16:08:00.000 77 /min Pulse 2025-03-12 15:16:00.000 70 /min Pulse 2025-03-11 13:14:00.000 55 /min O2 Saturation (%) 2025-03-17 16:08:00.000 100 % O2 Saturation (%) 2025-03-12 15:16:00.000 95 % O2 Saturation (%) 2025-03-11 13:14:00.000 98 % Respirations 2025-03-17 16:08:00.000 20 /min Respirations 2025-03-12 15:16:00.000 18 /min Respirations 2025-03-11 13:14:00.000 18 /min Weight (lbs) 2025-03-11 12:42:43.000 220 [lb_av] Systolic Blood Pressure 2025-03-17 16:08:00.000 110 mm [Hg] Systolic Blood Pressure 2025-03-12 15:16:00.000 100 mm [Hg] Systolic Blood Pressure 2025-03-11 13:14:00.000 112 mm [Hg] Diastolic Blood Pressure 2025-03-17 16:08:00.000 60 mm [Hg] Diastolic Blood Pressure 2025-03-12 [...] SOLO (PODIATRY) RN TO OBSERVE AND ASSESS, ANALYTIC PROGRAMMER/LOGGING CREW FOREMAN TO OBSERVE FOR RISK FOR FALLS AND INSTRUCT IN FALL PREVENTION, HOME SAFETY, MEDICATION MANAGEMENT, INFECTION PREVENTION, AND NUTRITION MANAGEMENT. RN/ANALYTIC PROGRAMMER/LOGGING CREW FOREMAN NURSE MAY PERFORM O2 SATURATION LEVEL ON ADMISSION AND PRN FOR SOB FOR RN TO ASSESS/ANALYTIC PROGRAMMER TO OBSERVE PATIENT, WITH NOTIFICATION TO THE PHYSICIAN IF SATURATION IS 90% IN THE ABSENCE OF MORE SPECIFIC PARAMETERS FROM THE PHYSICIAN. AGENCY MAY PERFORM A RESUMPTION OF CARE VISIT FOLLOWING ANY HOSPITAL ADMISSION. RN/ANALYTIC PROGRAMMER/LOGGING CREW FOREMAN TO MONITOR CO-MORBID CONDITIONS LISTED ON THE PLAN OF CARE AND ANY NEW CONDITIONS THAT PRESENT THEMSELVES DURING THIS EPISODE TO IDENTIFY CHANGES AND INTERVENE TO MINIMIZE COMPLICATIONS. [code = RN TO OBSERVE, ASSESS, EVALUATE, AND DEVELOP AN INDIVIDUALIZED PLAN OF CARE. AGENCY MAY ACCEPT ORDERS FROM CONSULTING PHYSICIANS DR MARIEL STEPHENS (PCP), DR MOONEY (CARDIOLOGY), DR AYALA (PULMONOLOGY), DR SLOO (PODIATRY) RN TO OBSERVE AND ASSESS, ANALYTIC PROGRAMMER/LOGGING CREW FOREMAN TO OBSERVE FOR RISK FOR FALLS AND INSTRUCT IN FALL PREVENTION, HOME SAFETY, MEDICATION MANAGEMENT, INFECTION PREVENTION, AND NUTRITION MANAGEMENT. RN/ANALYTIC PROGRAMMER/LOGGING CREW FOREMAN NURSE MAY PERFORM O2 SATURATION LEVEL ON ADMISSION AND PRN FOR SOB FOR RN TO ASSESS/ANALYTIC PROGRAMMER TO OBSERVE PATIENT, WITH NOTIFICATION TO THE PHYSICIAN IF SATURATION IS 90% IN THE ABSENCE OF MORE SPECIFIC PARAMETERS FROM THE PHYSICIAN. AGENCY MAY PERFORM A RESUMPTION OF CARE VISIT FOLLOWING ANY HOSPITAL ADMISSION. RN/ANALYTIC PROGRAMMER/LOGGING CREW FOREMAN TO MONITOR CO-MORBID CONDITIONS LISTED ON THE PLAN OF CARE AND ANY NEW CONDITIONS THAT PRESENT THEMSELVES DURING THIS EPISODE TO IDENTIFY CHANGES AND INTERVENE TO MINIMIZE COMPLICATIONS.] Future Scheduled Test MEDICATION MANAGEMENT; RN/ANALYTIC PROGRAMMER/LOGGING CREW FOREMAN TO REVIEW MEDICATIONS FOR INTERACTIONS, EFFECTIVENESS OF DRUG THERAPY, AND SIGNS/SYMPTOMS OF ADVERSE REACTIONS. MAY INSTRUCT AND REINFORCE MEDICATION TEACHING RELATED TO THE USE OF MEDICATIONS, DOSAGE, FREQUENCY, PURPOSE, SIDE EFFECTS, AND TO REPORT COMPLICATIONS. [code = MEDICATION MANAGEMENT; RN/ANALYTIC PROGRAMMER/LOGGING CREW FOREMAN TO REVIEW MEDICATIONS FOR INTERACTIONS, EFFECTIVENESS OF DRUG THERAPY, AND SIGNS/SYMPTOMS OF ADVERSE REACTIONS. MAY INSTRUCT AND REINFORCE MEDICATION TEACHING RELATED TO THE USE OF MEDICATIONS, DOSAGE, FREQUENCY, PURPOSE, SIDE EFFECTS, AND TO REPORT COMPLICATIONS.] Future Scheduled Test RISK FOR H OSPITALIZATION; RN TO ASSESS/TEACH, LOGGING CREW FOREMAN/ANALYTIC PROGRAMMER TO OBSERVE/TEACH PATIENT/CAREGIVER ON RISK FOR HOSPITALIZATION/EMERGENCY ROOM VISITS, TEACH SIGNS AND SYMPTOMS THAT PUT PATIENT AT RISK, WHEN TO NOTIFY NURSE/PHYSICIAN OF COMPLICATIONS/DECLINE, AND WHEN TO CALL 911. [code = RISK FOR HOSPITALIZATION; RN TO ASSESS/TEACH, LOGGING CREW FOREMAN/ANALYTIC PROGRAMMER TO OBSERVE/TEACH PATIENT/CAREGIVER ON RISK FOR HOSPITALIZATION/EMERGENCY ROOM VISITS, TEACH SIGNS AND SYMPTOMS THAT PUT PATIENT AT RISK, WHEN TO NOTIFY NURSE/PHYSICIAN OF COMPLICATIONS/DECLINE, AND WHEN TO CALL 911.] Future Scheduled Test CARDIOVASC ULAR SYSTEM; RN TO ASSESS/TEACH, ANALYTIC PROGRAMMER/LOGGING CREW FOREMAN TO OBSERVE/TEACH RELATED TO ALTERED CARDIOVASCULAR STATUS TO MINIMIZE COMPLICATIONS AND REDUCE HOSPITALIZATION. [code = CARDIOVASCULAR SYSTEM; RN TO ASSESS/TEACH, ANALYTIC PROGRAMMER/LOGGING CREW FOREMAN TO OBSERVE/TEACH RELATED TO ALTERED CARDIOVASCULAR STATUS TO MINIMIZE COMPLICATIONS AND REDUCE HOSPITALIZATION.] Future Scheduled Test HEART FAIL URE; RN TO ASSESS/TEACH, ANALYTIC PROGRAMMER/LOGGING CREW FOREMAN TO OBSERVE/TEACH CARDIOPULMONARY SYSTEM TO IDENTIFY SIGNS [...] [code = HEART FAILURE; RN TO ASSESS/TEACH, ANALYTIC PROGRAMMER/LOGGING CREW FOREMAN TO OBSERVE/TEACH CARDIOPULMONARY SYSTEM TO IDENTIFY SIGNS [...] ON MANAGEMENT; RN TO ASSESS AND TEACH, ANALYTIC PROGRAMMER/LOGGING CREW FOREMAN TO OBSERVE AND TEACH WARNING SIGNS AND SYMPTOMS TO AVOID HOSPITALIZATION. [code = HYPERTENSION MANAGEMENT; RN TO ASSESS AND TEACH, ANALYTIC PROGRAMMER/LOGGING CREW FOREMAN TO OBSERVE AND TEACH WARNING SIGNS AND SYMPTOMS TO AVOID HOSPITALIZATION.] Future Scheduled Test ARRHYTHMIA MANAGEMENT; RN TO ASSESS AND TEACH, ANALYTIC PROGRAMMER/LOGGING CREW FOREMAN TO OBSERVE AND TEACH WARNING SIGNS AND SYMPTOMS TO AVOID HOSPITALIZATION. [code = ARRHYTHMIA MANAGEMENT; RN TO ASSESS AND TEACH, ANALYTIC PROGRAMMER/LOGGING CREW FOREMAN TO OBSERVE AND TEACH WARNING SIGNS AND SYMPTOMS TO AVOID HOSPITALIZATION.] Future Scheduled Test RESPIRATOR Y SYSTEM MANAGEMENT; RN TO ASSESS AND TEACH, ANALYTIC PROGRAMMER/LOGGING CREW FOREMAN TO OBSERVE AND TEACH RELATED TO ALTERED RESPIRATORY STATUS TO MINIMIZE COMPLICATIONS AND REDUCE HOSPITALIZATION. [code = RESPIRATORY SYSTEM MANAGEMENT; RN TO ASSESS AND TEACH, ANALYTIC PROGRAMMER/LOGGING CREW FOREMAN TO OBSERVE AND TEACH RELATED TO ALTERED RESPIRATORY STATUS TO MINIMIZE COMPLICATIONS AND REDUCE HOSPITALIZATION.] Future Scheduled Test COPD MANAG EMENT; RN TO ASSESS AND TEACH, ANALYTIC PROGRAMMER/LOGGING CREW FOREMAN TO OBSERVE AND TEACH SIGNS/SYMPTOMS OF COPD EXACERBATION AND PROVIDE EARLY INTERVENTIONS TO MINIMIZE RISK OF HOSPITALIZATION. RN/ANALYTIC PROGRAMMER/LOGGING CREW FOREMAN TO INSTRUCT ON SELF-CARE MANAGEMENT INCLUDING BREATHING TECHNIQUES, AIRWAY CLEARANCE, AND PROPER USE OF COPD MEDICATIONS. RN TO ASSESS AND TEACH, ANALYTIC PROGRAMMER/LOGGING CREW FOREMAN TO OBSERVE AND TEACH PATIENT/CAREGIVER ABILITY TO MONITOR AND RECORD VITAL SIGNS INCLUDING PULSE OXIMETRY AND BLOOD PRESSURE. PULSE OXIMETER AND BP MONITOR TO BE PROVIDED IF NEEDED [code = COPD MANAGEMENT; RN TO ASSESS AND TEACH, ANALYTIC PROGRAMMER/LOGGING CREW FOREMAN TO OBSERVE AND TEACH SIGNS/SYMPTOMS OF COPD EXACERBATION AND PROVIDE EARLY INTERVENTIONS TO MINIMIZE RISK OF HOSPITALIZATION. RN/ANALYTIC PROGRAMMER/LOGGING CREW FOREMAN TO INSTRUCT ON SELF-CARE MANAGEMENT INCLUDING BREATHING TECHNIQUES, AIRWAY CLEARANCE, AND PROPER USE OF COPD MEDICATIONS. RN TO ASSESS AND TEACH, ANALYTIC PROGRAMMER/LOGGING CREW FOREMAN TO OBSERVE AND TEACH PATIENT/CAREGIVER ABILITY TO MONITOR AND RECORD VITAL SIGNS INCLUDING PULSE OXIMETRY AND BLOOD PRESSURE. PULSE OXIMETER AND BP MONITOR TO BE PROVIDED IF NEEDED ] Future Scheduled Test PNEUMONIA MANAGEMENT; RN TO ASSESS AND TEACH, ANALYTIC PROGRAMMER/LOGGING CREW FOREMAN TO OBSERVE AND TEACH SIGNS OF PNEUMONIA EXACERBATION AND PROVIDE EARLY INTERVENTIONS TO MINIMIZE RISK OF HOSPITALIZATION. [code = PNEUMONIA MANAGEMENT; RN TO ASSESS AND TEACH, ANALYTIC PROGRAMMER/LOGGING CREW FOREMAN TO OBSERVE AND TEACH SIGNS OF PNEUMONIA EXACERBATION AND PROVIDE EARLY INTERVENTIONS TO MINIMIZE RISK OF HOSPITALIZATION.] Future Scheduled Test ASTHMA MAN AGEMENT; RN TO ASSESS AND TEACH, ANALYTIC PROGRAMMER/LOGGING CREW FOREMAN TO OBSERVE AND TEACH ASTHMA MANAGEMENT AND PROVIDE EARLY INTERVENTIONS TO MINIMIZE RISK OF HOSPITALIZATION [code = ASTHMA MANAGEMENT; RN TO ASSESS AND TEACH, ANALYTIC PROGRAMMER/LOGGING CREW FOREMAN TO OBSERVE AND TEACH ASTHMA MANAGEMENT AND PROVIDE EARLY INTERVENTIONS TO MINIMIZE RISK OF HOSPITALIZATION] Future Scheduled Test OXYGEN THE RAPY; RN/ANALYTIC PROGRAMMER/LOGGING CREW FOREMAN TO INSTRUCT ON OXYGEN MANAGEMENT INCLUDING: ADMINISTRATION AT 4 L/MIN VIA NC CONTINUOUS, CARE OF EQUIPMENT AND SAFETY. [code = OXYGEN THERAPY; RN/ANALYTIC PROGRAMMER/LOGGING CREW FOREMAN TO INSTRUCT ON OXYGEN MANAGEMENT INCLUDING: ADMINISTRATION AT 4 L/MIN VIA NC CONTINUOUS, CARE OF EQUIPMENT AND SAFETY.] Future Scheduled Test SKIN INTEG RITY RN TO ASSESS AND TEACH, ANALYTIC PROGRAMMER/LOGGING CREW FOREMAN TO OBSERVE AND TEACH INTEGUMENTARY STATUS TO IDENTIFY CHANGES AND INTERVENE TO MINIMIZE COMPLICATIONS. PROVIDE SKILLED TEACHING OF GENERAL WOUND AND SKIN CARE AND PREVENTION RELATED TO POTENTIAL FOR OR ACTUAL ALTERED SKIN INTEGRITY [code = SKIN INTEGRITY RN TO ASSESS AND TEACH, ANALYTIC PROGRAMMER/LOGGING CREW FOREMAN TO OBSERVE AND TEACH INTEGUMENTARY STATUS TO IDENTIFY CHANGES AND INTERVENE TO MINIMIZE COMPLICATIONS. PROVIDE SKILLED TEACHING OF GENERAL WOUND AND SKIN CARE AND PREVENTION RELATED TO POTENTIAL FOR OR ACTUAL ALTERED SKIN INTEGRITY ] Future Scheduled Test PAIN MANAG EMENT; RN TO ASSESS AND TEACH, LOGGING CREW FOREMAN/ANALYTIC PROGRAMMER TO OBSERVE AND TEACH AND PROVIDE EDUCATION ON PAIN MANAGEMENT TECHNIQUES. [code = PAIN MANAGEMENT; RN TO ASSESS AND TEACH, LOGGING CREW FOREMAN/ANALYTIC PROGRAMMER TO OBSERVE AND TEACH AND PROVIDE EDUCATION ON PAIN MANAGEMENT TECHNIQUES.] Future Scheduled Test DIABETES M ANAGEMENT; RN TO ASSESS AND TEACH, LOGGING CREW FOREMAN/ANALYTIC PROGRAMMER TO OBSERVE AND TEACH INSTRUCTIONS OF DIABETIC CARE TO INCLUDE: DIET , SKIN CARE, SIGNS AND SYMPTOMS OF HYPO/HYPERGLYCEMIA, PROPER ADMINISTRATION OF DIABETIC MEDICATION. RN TO ASSESS AND TEACH, LOGGING CREW FOREMAN/ANALYTIC PROGRAMMER TO OBSERVE AND TEACH PATIENT/CAREGIVER ABILITY TO PERFORM AND RECORD BLOOD GLUCOSE TESTING ORDERED AND TO REPORT ABNORMAL FINDINGS TO PHYSICIAN. RN/LOGGING CREW FOREMAN/ANALYTIC PROGRAMMER MAY PERFORM BLOOD GLUCOSE TEST NEEDED. RN/LOGGING CREW FOREMAN/ANALYTIC PROGRAMMER TO INSTRUCT PATIENT ON IMPORTANCE OF HGBA1C MONITORING, KIDNEY FUNCTION TEST, EYE AND FOOT EXAMS. [code = DIABETES MANAGEMENT; RN TO ASSESS AND TEACH, LOGGING CREW FOREMAN/ANALYTIC PROGRAMMER TO OBSERVE AND TEACH INSTRUCTIONS OF DIABETIC CARE TO INCLUDE: DIET , SKIN CARE, SIGNS AND SYMPTOMS OF HYPO/HYPERGLYCEMIA, PROPER ADMINISTRATION OF DIABETIC MEDICATION. RN TO ASSESS AND TEACH, LOGGING CREW FOREMAN/ANALYTIC PROGRAMMER TO OBSERVE AND TEACH PATIENT/CAREGIVER ABILITY TO PERFORM AND RECORD BLOOD GLUCOSE TESTING ORDERED AND TO REPORT ABNORMAL FINDINGS TO PHYSICIAN. RN/LOGGING CREW FOREMAN/ANALYTIC PROGRAMMER MAY PERFORM BLOOD GLUCOSE TEST NEEDED. RN/LOGGING CREW FOREMAN/ANALYTIC PROGRAMMER TO INSTRUCT PATIENT ON IMPORTANCE OF HGBA1C MONITORING, KIDNEY FUNCTION TEST, EYE AND FOOT EXAMS.] Future Scheduled Test GENITOURIN RIOS MANAGEMENT; RN TO ASSESS AND TEACH, ANALYTIC PROGRAMMER/LOGGING CREW FOREMAN TO OBSERVE AND TEACH RELATED TO ALTERED GENITOURINARY STATUS TO MINIMIZE COMPLICATIONS AND REDUCE HOSPITALIZATION. [code = GENITOURINARY MANAGEMENT; RN TO ASSESS AND TEACH, ANALYTIC PROGRAMMER/LOGGING CREW FOREMAN TO OBSERVE AND TEACH RELATED TO ALTERED GENITOURINARY STATUS TO MINIMIZE COMPLICATIONS AND REDUCE HOSPITALIZATION.] Future Scheduled Test URINARY CU LTURE AND SENSITIVITY PROTOCOL UP TO 2 PRN RN/ANALYTIC PROGRAMMER/LOGGING CREW FOREMAN VISITS MAY BE PERFORMED FOR S/S OF UTI. RN TO ASSESS, ANALYTIC PROGRAMMER/LOGGING CREW FOREMAN TO OBSERVE INITIATION OF UTI PROTOCOL. RN/LOGGING CREW FOREMAN/ANALYTIC PROGRAMMER TO INSTRUCT PATIENT AND/OR CAREGIVER ON S/S OF UTI TO REPORT TO RN/ANALYTIC PROGRAMMER/LOGGING CREW FOREMAN IF NEW OR WORSENING SYMPTOMS. DRINK PLENTY OF WATER THROUGHOUT THE DAY TO MAINTAIN HYDRATION (UNLESS CONTRAINDICATED.) URINATE WHEN THE URGE IS FELT, DO NOT WAIT. WASH GENITALS DAILY. WIPE FROM FRONT TO BACK AFTER HAVING A BOWEL MOVEMENT. RN/LOGGING CREW FOREMAN/ANALYTIC PROGRAMMER TO OBTAIN URINE SPECIMEN FOR UA WITH C/S VIA CLEAN CATCH URINE AND IF UNABLE TO OBTAIN MAY PERFORM AN IN AND OUT CATH. IF PATIENT HAS INDWELLING CATHETER MAY OBTAIN FROM SAMPLING PORT. NOTIFY PROVIDER OF RESULTS AND OBTAIN FURTHER ORDERS. [code = URINARY CULTURE AND SENSITIVITY PROTOCOL UP TO 2 PRN RN/ANALYTIC PROGRAMMER/LOGGING CREW FOREMAN VISITS MAY BE PERFORMED FOR S/S OF UTI. RN TO ASSESS, ANALYTIC PROGRAMMER/LOGGING CREW FOREMAN TO OBSERVE INITIATION OF UTI PROTOCOL. RN/LOGGING CREW FOREMAN/ANALYTIC PROGRAMMER TO INSTRUCT PATIENT AND/OR CAREGIVER ON S/S OF UTI TO REPORT TO RN/ANALYTIC PROGRAMMER/LOGGING CREW FOREMAN IF NEW OR WORSENING SYMPTOMS. DRINK PLENTY OF WATER THROUGHOUT THE DAY TO MAINTAIN HYDRATION (UNLESS CONTRAINDICATED.) URINATE WHEN THE URGE IS FELT, DO NOT WAIT. WASH GENITALS DAILY. WIPE FROM FRONT TO BACK AFTER HAVING A BOWEL MOVEMENT. RN/LOGGING CREW FOREMAN/ANALYTIC PROGRAMMER TO OBTAIN URINE SPECIMEN FOR UA WITH C/S VIA CLEAN CATCH URINE AND IF UNABLE TO OBTAIN MAY PERFORM AN IN AND OUT CATH. IF PATIENT HAS INDWELLING CATHETER MAY OBTAIN FROM SAMPLING PORT. NOTIFY PROVIDER OF RESULTS AND OBTAIN FURTHER ORDERS.] Future Scheduled Test URINARY MO LECULAR TESTING PROTOCOL UP TO 2 PRN RN/ANALYTIC PROGRAMMER/LOGGING CREW FOREMAN VISITS MAY BE PERFORMED FOR S/S OF UTI. RN TO ASSESS, ANALYTIC PROGRAMMER/LOGGING CREW FOREMAN TO OBSERVE INITIATION OF UTI PROTOCOL. RN/LOGGING CREW FOREMAN/ANALYTIC PROGRAMMER TO INSTRUCT PATIENT AND/OR CAREGIVER ON S/S OF UTI TO REPORT TO RN/LOGGING CREW FOREMAN/ANALYTIC PROGRAMMER IF NEW OR WORSENING SYMPTOMS. DRINK PLENTY OF WATER THROUGHOUT THE DAY TO MAINTAIN HYDRATION (UNLESS CONTRAINDICATED.) URINATE WHEN THE URGE IS FELT, DO NOT WAIT. WASH GENITALS DAILY. WIPE FROM FRONT TO BACK AFTER HAVING A BOWEL MOVEMENT. RN/LOGGING CREW FOREMAN/ANALYTIC PROGRAMMER TO OBTAIN URINE SPECIMEN FOR MOLECULAR URINE TESTING BY OPTION 1 OR OPTION 2 RN/LOGGING CREW FOREMAN/ANALYTIC PROGRAMMER TO OBTAIN URINE SPECIMEN FOR U/A WITH [...] MOLECULAR TESTING PROTOCOL UP TO 2 PRN RN/ANALYTIC PROGRAMMER/LOGGING CREW FOREMAN VISITS MAY BE PERFORMED FOR S/S OF UTI. RN TO ASSESS, ANALYTIC PROGRAMMER/LOGGING CREW FOREMAN TO OBSERVE INITIATION OF UTI PROTOCOL. RN/LOGGING CREW FOREMAN/ANALYTIC PROGRAMMER TO INSTRUCT PATIENT AND/OR CAREGIVER ON S/S OF UTI TO REPORT TO RN/LOGGING CREW FOREMAN/ANALYTIC PROGRAMMER IF NEW OR WORSENING SYMPTOMS. DRINK PLENTY OF WATER THROUGHOUT THE DAY TO MAINTAIN HYDRATION (UNLESS CONTRAINDICATED.) URINATE WHEN THE URGE IS FELT, DO NOT WAIT. WASH GENITALS DAILY. WIPE FROM FRONT TO BACK AFTER HAVING A BOWEL MOVEMENT. RN/LOGGING CREW FOREMAN/ANALYTIC PROGRAMMER TO OBTAIN URINE SPECIMEN FOR MOLECULAR URINE TESTING BY OPTION 1 OR OPTION 2 RN/LOGGING CREW FOREMAN/ANALYTIC PROGRAMMER TO OBTAIN URINE SPECIMEN FOR U/A WITH [...] Scheduled Test URINARY TR ACT INFECTION MANAGEMENT; RN/LOGGING CREW FOREMAN/ANALYTIC PROGRAMMER TO PROVIDE SKILLED TEACHING AND SELF- CARE MANAGEMENT RELATED TO UTI TO MINIMIZE COMPLICATIONS AND REDUCE THE RISK OF HOSPITALIZATION. [code = URINARY TRACT INFECTION MANAGEMENT; RN/LOGGING CREW FOREMAN/ANALYTIC PROGRAMMER TO PROVIDE SKILLED TEACHING AND SELF- CARE MANAGEMENT RELATED TO UTI TO MINIMIZE COMPLICATIONS AND REDUCE THE RISK OF HOSPITALIZATION.] Future Scheduled Test FALL REDUC TION MANAGEMENT; RN TO ASSESS AND OBSERVE, ANALYTIC PROGRAMMER/LOGGING CREW FOREMAN TO OBSERVE FALL RISK FACTORS AND EDUCATE PATIENT/CAREGIVER ON STRATEGIES TO MINIMIZE THE RISK OF FALLING. [code = FALL REDUCTION MANAGEMENT; RN TO ASSESS AND OBSERVE, ANALYTIC PROGRAMMER/LOGGING CREW FOREMAN TO OBSERVE FALL RISK FACTORS AND EDUCATE PATIENT/CAREGIVER ON STRATEGIES TO MINIMIZE THE RISK OF FALLING.] Future Scheduled Test MEDICAL SO CIAL SERVICES FOR EVALUATION TO ASSESS SOCIAL AND EMOTIONAL FACTORS RELATED TO THE PATIENT'S ILLNESS, NEED FOR CARE, RESPONSE TO TREATMENT AND ADJUSTMENT TO CARE. [code = MEDICAL CYLINDER DIE MACHINE OPERATOR FOR EVALUATION TO ASSESS SOCIAL AND EMOTIONAL FACTORS RELATED TO THE PATIENT'S ILLNESS, NEED FOR CARE, RESPONSE TO TREATMENT AND ADJUSTMENT TO CARE.] Future Scheduled Test AGENCY MAY PERFORM A RESUMPTION OF CARE VISIT FOLLOWING ANY HOSPITAL ADMISSION. PT TO EVALUATE, OBSERVE / ASSESS, AND MONITOR, FOREST BIOMETRICS PROFESSOR TO OBSERVE AND MONITOR, PROVIDE SKILLED THERAPEUTIC INTERVENTION, ACTIVITY, EDUCATION, AND TRAINING TO ADDRESS; PT/FOREST BIOMETRICS PROFESSOR TO PROVIDE GAIT TRAINING FOR IMPROVED MOBILITY AND /OR TO NORMALIZE GAIT PATTERN NEUROMUSCULAR RE-EDUCATION / BALANCE / POSTURAL CONTROL (PT) THERAPEUTIC EXERCISES AND ESTABLISHING A HOME EXERCISE PROGRAM (PT/FOREST BIOMETRICS PROFESSOR) SIT TO/FROM STAND TRANSFERS (PT/FOREST BIOMETRICS PROFESSOR) PT / FOREST BIOMETRICS PROFESSOR TO MONITOR AND EDUCATE ON OXYGEN SATURATION DURING ADLS/IADLS, NOTIFY PHYSICIAN AND/OR THE RN CLINICAL MEDICAID PLAN COMPLIANCE DIRECTOR FOR PHYSICIAN NOTIFICATION AND IF O2 SATS BELOW PHYSICIAN ORDERED PARAMETERS AFTER 10 MIN OF REST PT / FOREST BIOMETRICS PROFESSOR MAY EDUCATE ON PAIN MANAGEMENT CLINICALLY INDICATED, INCLUDING NON-PHARMACOLOGICAL PAIN REDUCTION TECHNIQUES AND USE OF CRYOTHERAPY OR HEAT UP TO 20 MIN AT A TIME FOR PAIN MANAGEMENT 3 TIMES PER DAY PT / FOREST BIOMETRICS PROFESSOR TO MONITOR FOR HYPO/HYPERGLYCEMIA AND CONDUCT ROUTINE FOOT INSPECTIONS. RECORD PATIENT REPORTED BLOOD SUGAR LEVELS AND NOTIFY PHYSICIAN AND/OR THE RN CLINICAL MEDICAID PLAN COMPLIANCE DIRECTOR FOR PHYSICIAN NOTIFICATION IF BLOOD SUGAR LEVELS ARE OUTSIDE ORDERED PARAMETERS. TEACH PATIENT/CAREGIVER ON DAILY FOOT INSPECTIONS PT / FOREST BIOMETRICS PROFESSOR TO EDUCATE ON HEART FAILURE SELF-MANAGEMENT PT/FOREST BIOMETRICS PROFESSOR TO IDENTIFY FALL RISK FACTORS; EDUCATE THE PATIENT/CAREGIVER ON WAYS TO REDUCE FALL RISK FACTORS AND ESTABLISH HOME EXERCISE PROGRAM TO MINIMIZE FALL RISK. MAY TEACH THE PATIENT FLOOR RECOVERY WHEN CLINICALLY APPROPRIATE [code = AGENCY MAY PERFORM A RESUMPTION OF CARE VISIT FOLLOWING ANY HOSPITAL ADMISSION. PT TO EVALUATE, OBSERVE / ASSESS, AND MONITOR, FOREST BIOMETRICS PROFESSOR TO OBSERVE AND MONITOR, PROVIDE SKILLED THERAPEUTIC INTERVENTION, ACTIVITY, EDUCATION, AND TRAINING TO ADDRESS; PT/FOREST BIOMETRICS PROFESSOR TO PROVIDE GAIT TRAINING FOR IMPROVED MOBILITY AND /OR TO NORMALIZE GAIT PATTERN NEUROMUSCULAR RE-EDUCATION / BALANCE / POSTURAL CONTROL (PT) THERAPEUTIC EXERCISES AND ESTABLISHING A HOME EXERCISE PROGRAM (PT/FOREST BIOMETRICS PROFESSOR) SIT TO/FROM STAND TRANSFERS (PT/FOREST BIOMETRICS PROFESSOR) PT / FOREST BIOMETRICS PROFESSOR TO MONITOR AND EDUCATE ON OXYGEN SATURATION DURING ADLS/IADLS, NOTIFY PHYSICIAN AND/OR THE RN CLINICAL MEDICAID PLAN COMPLIANCE DIRECTOR FOR PHYSICIAN NOTIFICATION AND IF O2 SATS BELOW PHYSICIAN ORDERED PARAMETERS AFTER 10 MIN OF REST PT / FOREST BIOMETRICS PROFESSOR MAY EDUCATE ON PAIN MANAGEMENT CLINICALLY INDICATED, INCLUDING NON-PHARMACOLOGICAL PAIN REDUCTION TECHNIQUES AND USE OF CRYOTHERAPY OR HEAT UP TO 20 MIN AT A TIME FOR PAIN MANAGEMENT 3 TIMES PER DAY PT / FOREST BIOMETRICS PROFESSOR TO MONITOR FOR HYPO/HYPERGLYCEMIA AND CONDUCT ROUTINE FOOT INSPECTIONS. RECORD PATIENT REPORTED BLOOD SUGAR LEVELS AND NOTIFY PHYSICIAN AND/OR THE RN CLINICAL MEDICAID PLAN COMPLIANCE DIRECTOR FOR PHYSICIAN NOTIFICATION IF BLOOD SUGAR LEVELS ARE OUTSIDE ORDERED PARAMETERS. TEACH PATIENT/CAREGIVER ON DAILY FOOT INSPECTIONS PT / FOREST BIOMETRICS PROFESSOR TO EDUCATE ON HEART FAILURE SELF-MANAGEMENT PT/FOREST BIOMETRICS PROFESSOR TO IDENTIFY FALL RISK FACTORS; EDUCATE THE PATIENT/CAREGIVER ON WAYS TO REDUCE FALL RISK FACTORS AND ESTABLISH HOME EXERCISE PROGRAM TO MINIMIZE FALL RISK. MAY TEACH THE PATIENT FLOOR RECOVERY WHEN CLINICALLY APPROPRIATE] Future Scheduled Test MEDICAL SO CIAL SERVICES FOR COMMUNITY RESOURCE PLANNING. [code = MEDICAL CYLINDER DIE MACHINE OPERATOR FOR COMMUNITY RESOURCE PLANNING.] Future Scheduled Test AGENCY MAY PERFORM A RESUMPTION OF CARE VISIT FOLLOWING ANY HOSPITAL ADMISSION. OT TO EVALUATE, OBSERVE / ASSESS, AND MONITOR, DINING CAR STEWARD TO OBSERVE AND MONITOR, PROVIDE SKILLED THERAPEUTIC INTERVENTION, ACTIVITY, EDUCATION, AND TRAINING TO ADDRESS; IMPROVEMENT OF ACTIVITY TOLERANCE, IADL TASKS, SELF CARE PERFORMANCE ACTIVITIES OF DAILY LIVING (OT/DINING CAR STEWARD) LIGHT HOUSEKEEPING (OT/DINING CAR STEWARD) BATH/SHOWER TRANSFER (OT/CHELO) POSTURAL CONTROL/BALANCE (OT/CHELO) ENERGY CONSERVATION/ACTIVITY DEMAND (OT/DINING CAR STEWARD) OT TO ASSESS / CHELO TO MONITOR FOR HEART FAILURE EXACERBATION AND RECORD PATIENT REPORTED WEIGHT, AND NOTIFY THE PHYSICIAN AND/OR THE RN CLINICAL MEDICAID PLAN COMPLIANCE DIRECTOR FOR PHYSICIAN NOTIFICATION OF HF EXACERBATION (2LB WEIGHT GAIN IN 1 DAY, 5LBS IN A WEEK OR 5 LBS OVER BASELINE; INCREASED SOB, EDEMA, NEEDING MORE PILLOWS AT NIGHT, CRACKLES IN BASIS OF THE LUNGS OR PMI SHIFT). OT/DINING CAR STEWARD TO MONITOR AND EDUCATE ON OXYGEN SATURATION DURING ADLS/IADLS, NOTIFY PHYSICIAN AND/OR THE RN CLINICAL MEDICAID PLAN COMPLIANCE DIRECTOR FOR PHYSICIAN NOTIFICATION AND IF O2 SATS BELOW 90% AFTER 10 MIN OF REST. OT/CHELO TO MONITOR PATIENT WITH STABLE DEPRESSION ON SIGNS AND SYMPTOMS OF WORSENING DEPRESSION AND AVAILABLE RESOURCES INCLUDING [facility] SUICIDE CRISIS LIFELINE. OT/CHELO MAY EDUCATE ON PAIN MANAGEMENT CLINICALLY INDICATED, INCLUDING NON-PHARMACOLOGICAL PAIN REDUCTION TECHNIQUES AND USE OF CRYOTHERAPY OR HEAT UP TO 20 MIN AT A TIME FOR PAIN MANAGEMENT OT / DINING CAR STEWARD TO IDENTIFY FALL RISK FACTORS; EDUCATE THE PATIENT/CAREGIVER ON WAYS TO REDUCE FALL RISK FACTORS AND ESTABLISH HOME EXERCISE PROGRAM TO MINIMIZE FALL RISK. MAY TEACH THE PATIENT FLOOR RECOVERY WHEN CLINICALLY APPROPRIATE. [code = AGENCY MAY PERFORM A RESUMPTION OF CARE VISIT FOLLOWING ANY HOSPITAL ADMISSION. OT TO EVALUATE, OBSERVE / ASSESS, AND MONITOR, DINING CAR STEWARD TO OBSERVE AND MONITOR, PROVIDE SKILLED THERAPEUTIC INTERVENTION, ACTIVITY, EDUCATION, AND TRAINING TO ADDRESS; IMPROVEMENT OF ACTIVITY TOLERANCE, IADL TASKS, SELF CARE PERFORMANCE ACTIVITIES OF DAILY LIVING (OT/DINING CAR STEWARD) LIGHT HOUSEKEEPING (OT/CHELO) BATH/SHOWER TRANSFER (OT/CHELO) POSTURAL CONTROL/BALANCE (OT/CHELO) ENERGY CONSERVATION/ACTIVITY DEMAND (OT/DINING CAR STEWARD) OT TO ASSESS / CHELO TO MONITOR FOR HEART FAILURE EXACERBATION AND RECORD PATIENT REPORTED WEIGHT, AND NOTIFY THE PHYSICIAN AND/OR THE RN CLINICAL MEDICAID PLAN COMPLIANCE DIRECTOR FOR PHYSICIAN NOTIFICATION OF HF EXACERBATION (2LB WEIGHT GAIN IN 1 DAY, 5LBS IN A WEEK OR 5 LBS OVER BASELINE; INCREASED SOB, EDEMA, NEEDING MORE PILLOWS AT NIGHT, CRACKLES IN BASIS OF THE LUNGS OR PMI SHIFT). OT/CHELO TO MONITOR AND EDUCATE ON OXYGEN SATURATION DURING ADLS/IADLS, NOTIFY PHYSICIAN AND/OR THE RN CLINICAL MEDICAID PLAN COMPLIANCE DIRECTOR FOR PHYSICIAN NOTIFICATION AND IF O2 SATS BELOW 90% AFTER 10 MIN OF REST. OT/CHELO TO MONITOR PATIENT WITH STABLE DEPRESSION ON SIGNS AND SYMPTOMS OF WORSENING DEPRESSION AND AVAILABLE RESOURCES INCLUDING [facility] SUICIDE CRISIS LIFELINE. OT/DINING CAR STEWARD MAY EDUCATE ON PAIN MANAGEMENT CLINICALLY INDICATED, INCLUDING NON-PHARMACOLOGICAL PAIN REDUCTION TECHNIQUES AND USE OF CRYOTHERAPY OR HEAT UP TO 20 MIN AT A TIME FOR PAIN MANAGEMENT OT / DINING CAR STEWARD TO IDENTIFY FALL RISK FACTORS; EDUCATE THE PATIENT/CAREGIVER ON WAYS TO REDUCE FALL RISK FACTORS AND ESTABLISH HOME EXERCISE PROGRAM TO MINIMIZE FALL RISK. MAY TEACH THE PATIENT FLOOR RECOVERY WHEN CLINICALLY APPROPRIATE.] Goal Patient Goal - G ET BACK ON FEET AND DO LIKE USED TO Goal Provider Goal - A PLAN OF CARE WILL BE ESTABLISHED THAT MEETS THE PATIENTS NEEDS. PATIENT WILL DEMONSTRATE OXYGEN SATURATION WITHIN NORMAL LIMITS OR PATIENTS OPTIMAL LEVEL ESTABLISHED BY THE PHYSICIAN THROUGHOUT [...] TO 5/10 @ WORST WITHIN 8 WEEKS PATIENTS BLOOD SUGAR WILL REMAIN WELL CONTROLLED WITH [...] IADL COMPLETION WITHIN 8 WEEKS LTG OT: PATIENTS HEART FAILURE WILL REMAIN WELL CONTROLLED THROUGHOUT [...] AND HOME SAFETY BY END OF EPISODE. Encounters Start Date/Time End Date/Time Encounter Type Admission Type Attending [facility] Care Department Encounter ID Discharge Date Discharge Status Discharge Condition Discharge Reason Percent Goals Met 2025-03-11 00:00:00 2025-05-09 00:00:00 Outpatient READMISSMICHAEL [facility] [id number] 62.50
--- OUTSIDE RECORDS SUMMARY | 2025-05-08 20:00 | XMS_ITS | Clinical Summary ---
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 RN/PCAS/MID LEVEL BUSINESS ANALYST NURSE MAY PERFORM O2 SATURATION LEVEL ON ADMISSION AND PRN FOR SOB FOR RN TO ASSESS/PCAS TO OBSERVE PATIENT, WITH NOTIFICATION TO THE PHYSICIAN IF SATURATION IS 90% IN THE ABSENCE OF MORE SPECIFIC PARAMETERS FROM THE PHYSICIAN. AGENCY MAY PERFORM A RESUMPTION OF CARE VISIT FOLLOWING ANY HOSPITAL ADMISSION. RN/PCAS/MID LEVEL BUSINESS ANALYST TO MONITOR CO-MORBID CONDITIONS LISTED ON THE [...] SOLO (PODIATRY) RN TO OBSERVE AND ASSESS, PCAS/MID LEVEL BUSINESS ANALYST TO OBSERVE FOR RISK FOR FALLS AND INSTRUCT IN FALL PREVENTION, HOME SAFETY, MEDICATION MANAGEMENT, INFECTION PREVENTION, AND NUTRITION MANAGEMENT. RN/PCAS/MID LEVEL BUSINESS ANALYST NURSE MAY PERFORM O2 SATURATION LEVEL ON ADMISSION AND PRN FOR SOB FOR RN TO ASSESS/PCAS TO OBSERVE PATIENT, WITH NOTIFICATION TO THE PHYSICIAN IF SATURATION IS 90% IN THE ABSENCE OF MORE SPECIFIC PARAMETERS FROM THE PHYSICIAN. AGENCY MAY PERFORM A RESUMPTION OF CARE VISIT FOLLOWING ANY HOSPITAL ADMISSION. RN/PCAS/MID LEVEL BUSINESS ANALYST TO MONITOR CO-MORBID CONDITIONS LISTED ON THE PLAN OF CARE AND ANY NEW CONDITIONS THAT PRESENT THEMSELVES DURING THIS EPISODE TO IDENTIFY CHANGES AND INTERVENE TO MINIMIZE COMPLICATIONS.] Future Scheduled Test MEDICATION MANAGEMENT; RN/PCAS/MID LEVEL BUSINESS ANALYST TO REVIEW MEDICATIONS FOR INTERACTIONS, EFFECTIVENESS OF DRUG THERAPY, AND SIGNS/SYMPTOMS OF ADVERSE REACTIONS. MAY INSTRUCT AND REINFORCE MEDICATION TEACHING RELATED TO THE USE OF MEDICATIONS, DOSAGE, FREQUENCY, PURPOSE, SIDE EFFECTS, AND TO REPORT COMPLICATIONS. [code = MEDICATION MANAGEMENT; RN/PCAS/MID LEVEL BUSINESS ANALYST TO REVIEW MEDICATIONS FOR INTERACTIONS, EFFECTIVENESS OF DRUG THERAPY, AND SIGNS/SYMPTOMS OF ADVERSE REACTIONS. MAY INSTRUCT AND REINFORCE MEDICATION TEACHING RELATED TO THE USE OF MEDICATIONS, DOSAGE, FREQUENCY, PURPOSE, SIDE EFFECTS, AND TO REPORT COMPLICATIONS.] Future Scheduled Test RISK FOR H OSPITALIZATION; RN TO ASSESS/TEACH, MID LEVEL BUSINESS ANALYST/PCAS TO OBSERVE/TEACH PATIENT/CAREGIVER ON RISK FOR HOSPITALIZATION/EMERGENCY ROOM VISITS, TEACH SIGNS AND SYMPTOMS THAT PUT PATIENT AT RISK, WHEN TO NOTIFY NURSE/PHYSICIAN OF COMPLICATIONS/DECLINE, AND WHEN TO CALL 911. [code = RISK FOR HOSPITALIZATION; RN TO ASSESS/TEACH, MID LEVEL BUSINESS ANALYST/PCAS TO OBSERVE/TEACH PATIENT/CAREGIVER ON RISK FOR HOSPITALIZATION/EMERGENCY ROOM VISITS, TEACH SIGNS AND SYMPTOMS THAT PUT PATIENT AT RISK, WHEN TO NOTIFY NURSE/PHYSICIAN OF COMPLICATIONS/DECLINE, AND WHEN TO CALL 911.] Future Scheduled Test CARDIOVASC ULAR SYSTEM; RN TO ASSESS/TEACH, PCAS/MID LEVEL BUSINESS ANALYST TO OBSERVE/TEACH RELATED TO ALTERED CARDIOVASCULAR STATUS TO MINIMIZE COMPLICATIONS AND REDUCE HOSPITALIZATION. [code = CARDIOVASCULAR SYSTEM; RN TO ASSESS/TEACH, PCAS/MID LEVEL BUSINESS ANALYST TO OBSERVE/TEACH RELATED TO ALTERED CARDIOVASCULAR STATUS TO MINIMIZE COMPLICATIONS AND REDUCE HOSPITALIZATION.] Future Scheduled Test HEART FAIL URE; RN TO ASSESS/TEACH, PCAS/MID LEVEL BUSINESS ANALYST TO OBSERVE/TEACH CARDIOPULMONARY SYSTEM TO IDENTIFY SIGNS [...] [code = HEART FAILURE; RN TO ASSESS/TEACH, PCAS/MID LEVEL BUSINESS ANALYST TO OBSERVE/TEACH CARDIOPULMONARY SYSTEM TO IDENTIFY SIGNS [...] ON MANAGEMENT; RN TO ASSESS AND TEACH, PCAS/MID LEVEL BUSINESS ANALYST TO OBSERVE AND TEACH WARNING SIGNS AND SYMPTOMS TO AVOID HOSPITALIZATION. [code = HYPERTENSION MANAGEMENT; RN TO ASSESS AND TEACH, PCAS/MID LEVEL BUSINESS ANALYST TO OBSERVE AND TEACH WARNING SIGNS AND SYMPTOMS TO AVOID HOSPITALIZATION.] Future Scheduled Test ARRHYTHMIA MANAGEMENT; RN TO ASSESS AND TEACH, PCAS/MID LEVEL BUSINESS ANALYST TO OBSERVE AND TEACH WARNING SIGNS AND SYMPTOMS TO AVOID HOSPITALIZATION. [code = ARRHYTHMIA MANAGEMENT; RN TO ASSESS AND TEACH, PCAS/MID LEVEL BUSINESS ANALYST TO OBSERVE AND TEACH WARNING SIGNS AND SYMPTOMS TO AVOID HOSPITALIZATION.] Future Scheduled Test RESPIRATOR Y SYSTEM MANAGEMENT; RN TO ASSESS AND TEACH, PCAS/MID LEVEL BUSINESS ANALYST TO OBSERVE AND TEACH RELATED TO ALTERED RESPIRATORY STATUS TO MINIMIZE COMPLICATIONS AND REDUCE HOSPITALIZATION. [code = RESPIRATORY SYSTEM MANAGEMENT; RN TO ASSESS AND TEACH, PCAS/MID LEVEL BUSINESS ANALYST TO OBSERVE AND TEACH RELATED TO ALTERED RESPIRATORY STATUS TO MINIMIZE COMPLICATIONS AND REDUCE HOSPITALIZATION.] Future Scheduled Test COPD MANAG EMENT; RN TO ASSESS AND TEACH, PCAS/MID LEVEL BUSINESS ANALYST TO OBSERVE AND TEACH SIGNS/SYMPTOMS OF COPD EXACERBATION AND PROVIDE EARLY INTERVENTIONS TO MINIMIZE RISK OF HOSPITALIZATION. RN/PCAS/MID LEVEL BUSINESS ANALYST TO INSTRUCT ON SELF-CARE MANAGEMENT INCLUDING BREATHING TECHNIQUES, AIRWAY CLEARANCE, AND PROPER USE OF COPD MEDICATIONS. RN TO ASSESS AND TEACH, PCAS/MID LEVEL BUSINESS ANALYST TO OBSERVE AND TEACH PATIENT/CAREGIVER ABILITY TO MONITOR AND RECORD VITAL SIGNS INCLUDING PULSE OXIMETRY AND BLOOD PRESSURE. PULSE OXIMETER AND BP MONITOR TO BE PROVIDED IF NEEDED [code = COPD MANAGEMENT; RN TO ASSESS AND TEACH, PCAS/MID LEVEL BUSINESS ANALYST TO OBSERVE AND TEACH SIGNS/SYMPTOMS OF COPD EXACERBATION AND PROVIDE EARLY INTERVENTIONS TO MINIMIZE RISK OF HOSPITALIZATION. RN/PCAS/MID LEVEL BUSINESS ANALYST TO INSTRUCT ON SELF-CARE MANAGEMENT INCLUDING BREATHING TECHNIQUES, AIRWAY CLEARANCE, AND PROPER USE OF COPD MEDICATIONS. RN TO ASSESS AND TEACH, PCAS/MID LEVEL BUSINESS ANALYST TO OBSERVE AND TEACH PATIENT/CAREGIVER ABILITY TO MONITOR AND RECORD VITAL SIGNS INCLUDING PULSE OXIMETRY AND BLOOD PRESSURE. PULSE OXIMETER AND BP MONITOR TO BE PROVIDED IF NEEDED ] Future Scheduled Test PNEUMONIA MANAGEMENT; RN TO ASSESS AND TEACH, PCAS/MID LEVEL BUSINESS ANALYST TO OBSERVE AND TEACH SIGNS OF PNEUMONIA EXACERBATION AND PROVIDE EARLY INTERVENTIONS TO MINIMIZE RISK OF HOSPITALIZATION. [code = PNEUMONIA MANAGEMENT; RN TO ASSESS AND TEACH, PCAS/MID LEVEL BUSINESS ANALYST TO OBSERVE AND TEACH SIGNS OF PNEUMONIA EXACERBATION AND PROVIDE EARLY INTERVENTIONS TO MINIMIZE RISK OF HOSPITALIZATION.] Future Scheduled Test ASTHMA MAN AGEMENT; RN TO ASSESS AND TEACH, PCAS/MID LEVEL BUSINESS ANALYST TO OBSERVE AND TEACH ASTHMA MANAGEMENT AND PROVIDE EARLY INTERVENTIONS TO MINIMIZE RISK OF HOSPITALIZATION [code = ASTHMA MANAGEMENT; RN TO ASSESS AND TEACH, PCAS/MID LEVEL BUSINESS ANALYST TO OBSERVE AND TEACH ASTHMA MANAGEMENT AND PROVIDE EARLY INTERVENTIONS TO MINIMIZE RISK OF HOSPITALIZATION] Future Scheduled Test OXYGEN THE RAPY; RN/PCAS/MID LEVEL BUSINESS ANALYST TO INSTRUCT ON OXYGEN MANAGEMENT INCLUDING: ADMINISTRATION AT 4 L/MIN VIA NC CONTINUOUS, CARE OF EQUIPMENT AND SAFETY. [code = OXYGEN THERAPY; RN/PCAS/MID LEVEL BUSINESS ANALYST TO INSTRUCT ON OXYGEN MANAGEMENT INCLUDING: ADMINISTRATION AT 4 L/MIN VIA NC CONTINUOUS, CARE OF EQUIPMENT AND SAFETY.] Future Scheduled Test SKIN INTEG RITY RN TO ASSESS AND TEACH, PCAS/MID LEVEL BUSINESS ANALYST TO OBSERVE AND TEACH INTEGUMENTARY STATUS TO IDENTIFY CHANGES AND INTERVENE TO MINIMIZE COMPLICATIONS. PROVIDE SKILLED TEACHING OF GENERAL WOUND AND SKIN CARE AND PREVENTION RELATED TO POTENTIAL FOR OR ACTUAL ALTERED SKIN INTEGRITY [code = SKIN INTEGRITY RN TO ASSESS AND TEACH, PCAS/MID LEVEL BUSINESS ANALYST TO OBSERVE AND TEACH INTEGUMENTARY STATUS TO IDENTIFY CHANGES AND INTERVENE TO MINIMIZE COMPLICATIONS. PROVIDE SKILLED TEACHING OF GENERAL WOUND AND SKIN CARE AND PREVENTION RELATED TO POTENTIAL FOR OR ACTUAL ALTERED SKIN INTEGRITY ] Future Scheduled Test PAIN MANAG EMENT; RN TO ASSESS AND TEACH, MID LEVEL BUSINESS ANALYST/PCAS TO OBSERVE AND TEACH AND PROVIDE EDUCATION ON PAIN MANAGEMENT TECHNIQUES. [code = PAIN MANAGEMENT; RN TO ASSESS AND TEACH, MID LEVEL BUSINESS ANALYST/PCAS TO OBSERVE AND TEACH AND PROVIDE EDUCATION ON PAIN MANAGEMENT TECHNIQUES.] Future Scheduled Test DIABETES M ANAGEMENT; RN TO ASSESS AND TEACH, MID LEVEL BUSINESS ANALYST/PCAS TO OBSERVE AND TEACH INSTRUCTIONS OF DIABETIC CARE TO INCLUDE: DIET , SKIN CARE, SIGNS AND SYMPTOMS OF HYPO/HYPERGLYCEMIA, PROPER ADMINISTRATION OF DIABETIC MEDICATION. RN TO ASSESS AND TEACH, MID LEVEL BUSINESS ANALYST/PCAS TO OBSERVE AND TEACH PATIENT/CAREGIVER ABILITY TO PERFORM AND RECORD BLOOD GLUCOSE TESTING ORDERED AND TO REPORT ABNORMAL FINDINGS TO PHYSICIAN. RN/MID LEVEL BUSINESS ANALYST/PCAS MAY PERFORM BLOOD GLUCOSE TEST NEEDED. RN/MID LEVEL BUSINESS ANALYST/PCAS TO INSTRUCT PATIENT ON IMPORTANCE OF HGBA1C MONITORING, KIDNEY FUNCTION TEST, EYE AND FOOT EXAMS. [code = DIABETES MANAGEMENT; RN TO ASSESS AND TEACH, MID LEVEL BUSINESS ANALYST/PCAS TO OBSERVE AND TEACH INSTRUCTIONS OF DIABETIC CARE TO INCLUDE: DIET , SKIN CARE, SIGNS AND SYMPTOMS OF HYPO/HYPERGLYCEMIA, PROPER ADMINISTRATION OF DIABETIC MEDICATION. RN TO ASSESS AND TEACH, MID LEVEL BUSINESS ANALYST/PCAS TO OBSERVE AND TEACH PATIENT/CAREGIVER ABILITY TO PERFORM AND RECORD BLOOD GLUCOSE TESTING ORDERED AND TO REPORT ABNORMAL FINDINGS TO PHYSICIAN. RN/MID LEVEL BUSINESS ANALYST/PCAS MAY PERFORM BLOOD GLUCOSE TEST NEEDED. RN/MID LEVEL BUSINESS ANALYST/PCAS TO INSTRUCT PATIENT ON IMPORTANCE OF HGBA1C MONITORING, KIDNEY FUNCTION TEST, EYE AND FOOT EXAMS.] Future Scheduled Test GENITOURIN RIOS MANAGEMENT; RN TO ASSESS AND TEACH, PCAS/MID LEVEL BUSINESS ANALYST TO OBSERVE AND TEACH RELATED TO ALTERED GENITOURINARY STATUS TO MINIMIZE COMPLICATIONS AND REDUCE HOSPITALIZATION. [code = GENITOURINARY MANAGEMENT; RN TO ASSESS AND TEACH, PCAS/MID LEVEL BUSINESS ANALYST TO OBSERVE AND TEACH RELATED TO ALTERED GENITOURINARY STATUS TO MINIMIZE COMPLICATIONS AND REDUCE HOSPITALIZATION.] Future Scheduled Test URINARY CU LTURE AND SENSITIVITY PROTOCOL UP TO 2 PRN RN/PCAS/MID LEVEL BUSINESS ANALYST VISITS MAY BE PERFORMED FOR S/S OF UTI. RN TO ASSESS, PCAS/MID LEVEL BUSINESS ANALYST TO OBSERVE INITIATION OF UTI PROTOCOL. RN/MID LEVEL BUSINESS ANALYST/PCAS TO INSTRUCT PATIENT AND/OR CAREGIVER ON S/S OF UTI TO REPORT TO RN/PCAS/MID LEVEL BUSINESS ANALYST IF NEW OR WORSENING SYMPTOMS. DRINK PLENTY OF WATER THROUGHOUT THE DAY TO MAINTAIN HYDRATION (UNLESS CONTRAINDICATED.) URINATE WHEN THE URGE IS FELT, DO NOT WAIT. WASH GENITALS DAILY. WIPE FROM FRONT TO BACK AFTER HAVING A BOWEL MOVEMENT. RN/MID LEVEL BUSINESS ANALYST/PCAS TO OBTAIN URINE SPECIMEN FOR UA WITH C/S VIA CLEAN CATCH URINE AND IF UNABLE TO OBTAIN MAY PERFORM AN IN AND OUT CATH. IF PATIENT HAS INDWELLING CATHETER MAY OBTAIN FROM SAMPLING PORT. NOTIFY PROVIDER OF RESULTS AND OBTAIN FURTHER ORDERS. [code = URINARY CULTURE AND SENSITIVITY PROTOCOL UP TO 2 PRN RN/PCAS/MID LEVEL BUSINESS ANALYST VISITS MAY BE PERFORMED FOR S/S OF UTI. RN TO ASSESS, PCAS/MID LEVEL BUSINESS ANALYST TO OBSERVE INITIATION OF UTI PROTOCOL. RN/MID LEVEL BUSINESS ANALYST/PCAS TO INSTRUCT PATIENT AND/OR CAREGIVER ON S/S OF UTI TO REPORT TO RN/PCAS/MID LEVEL BUSINESS ANALYST IF NEW OR WORSENING SYMPTOMS. DRINK PLENTY OF WATER THROUGHOUT THE DAY TO MAINTAIN HYDRATION (UNLESS CONTRAINDICATED.) URINATE WHEN THE URGE IS FELT, DO NOT WAIT. WASH GENITALS DAILY. WIPE FROM FRONT TO BACK AFTER HAVING A BOWEL MOVEMENT. RN/MID LEVEL BUSINESS ANALYST/PCAS TO OBTAIN URINE SPECIMEN FOR UA WITH C/S VIA CLEAN CATCH URINE AND IF UNABLE TO OBTAIN MAY PERFORM AN IN AND OUT CATH. IF PATIENT HAS INDWELLING CATHETER MAY OBTAIN FROM SAMPLING PORT. NOTIFY PROVIDER OF RESULTS AND OBTAIN FURTHER ORDERS.] Future Scheduled Test URINARY MO LECULAR TESTING PROTOCOL UP TO 2 PRN RN/PCAS/MID LEVEL BUSINESS ANALYST VISITS MAY BE PERFORMED FOR S/S OF UTI. RN TO ASSESS, PCAS/MID LEVEL BUSINESS ANALYST TO OBSERVE INITIATION OF UTI PROTOCOL. RN/MID LEVEL BUSINESS ANALYST/PCAS TO INSTRUCT PATIENT AND/OR CAREGIVER ON S/S OF UTI TO REPORT TO RN/MID LEVEL BUSINESS ANALYST/PCAS IF NEW OR WORSENING SYMPTOMS. DRINK PLENTY OF WATER THROUGHOUT THE DAY TO MAINTAIN HYDRATION (UNLESS CONTRAINDICATED.) URINATE WHEN THE URGE IS FELT, DO NOT WAIT. WASH GENITALS DAILY. WIPE FROM FRONT TO BACK AFTER HAVING A BOWEL MOVEMENT. RN/MID LEVEL BUSINESS ANALYST/PCAS TO OBTAIN URINE SPECIMEN FOR MOLECULAR URINE TESTING BY OPTION 1 OR OPTION 2 RN/MID LEVEL BUSINESS ANALYST/PCAS TO OBTAIN URINE SPECIMEN FOR U/A WITH [...] MOLECULAR TESTING PROTOCOL UP TO 2 PRN RN/PCAS/MID LEVEL BUSINESS ANALYST VISITS MAY BE PERFORMED FOR S/S OF UTI. RN TO ASSESS, PCAS/MID LEVEL BUSINESS ANALYST TO OBSERVE INITIATION OF UTI PROTOCOL. RN/MID LEVEL BUSINESS ANALYST/PCAS TO INSTRUCT PATIENT AND/OR CAREGIVER ON S/S OF UTI TO REPORT TO RN/MID LEVEL BUSINESS ANALYST/PCAS IF NEW OR WORSENING SYMPTOMS. DRINK PLENTY OF WATER THROUGHOUT THE DAY TO MAINTAIN HYDRATION (UNLESS CONTRAINDICATED.) URINATE WHEN THE URGE IS FELT, DO NOT WAIT. WASH GENITALS DAILY. WIPE FROM FRONT TO BACK AFTER HAVING A BOWEL MOVEMENT. RN/MID LEVEL BUSINESS ANALYST/PCAS TO OBTAIN URINE SPECIMEN FOR MOLECULAR URINE TESTING BY OPTION 1 OR OPTION 2 RN/MID LEVEL BUSINESS ANALYST/PCAS TO OBTAIN URINE SPECIMEN FOR U/A WITH [...] Scheduled Test URINARY TR ACT INFECTION MANAGEMENT; RN/MID LEVEL BUSINESS ANALYST/PCAS TO PROVIDE SKILLED TEACHING AND SELF- CARE MANAGEMENT RELATED TO UTI TO MINIMIZE COMPLICATIONS AND REDUCE THE RISK OF HOSPITALIZATION. [code = URINARY TRACT INFECTION MANAGEMENT; RN/MID LEVEL BUSINESS ANALYST/PCAS TO PROVIDE SKILLED TEACHING AND SELF- CARE MANAGEMENT RELATED TO UTI TO MINIMIZE COMPLICATIONS AND REDUCE THE RISK OF HOSPITALIZATION.] Future Scheduled Test FALL REDUC TION MANAGEMENT; RN TO ASSESS AND OBSERVE, PCAS/MID LEVEL BUSINESS ANALYST TO OBSERVE FALL RISK FACTORS AND EDUCATE PATIENT/CAREGIVER ON STRATEGIES TO MINIMIZE THE RISK OF FALLING. [code = FALL REDUCTION MANAGEMENT; RN TO ASSESS AND OBSERVE, PCAS/MID LEVEL BUSINESS ANALYST TO OBSERVE FALL RISK FACTORS AND EDUCATE PATIENT/CAREGIVER ON STRATEGIES TO MINIMIZE THE RISK OF FALLING.] Future Scheduled Test MEDICAL SO CIAL SERVICES FOR EVALUATION TO ASSESS SOCIAL AND EMOTIONAL FACTORS RELATED TO THE PATIENT'S ILLNESS, NEED FOR CARE, RESPONSE TO TREATMENT AND ADJUSTMENT TO CARE. [code = MEDICAL SAMPLE WORKER FOR EVALUATION TO ASSESS SOCIAL AND EMOTIONAL FACTORS RELATED TO THE PATIENT'S ILLNESS, NEED FOR CARE, RESPONSE TO TREATMENT AND ADJUSTMENT TO CARE.] Future Scheduled Test AGENCY MAY PERFORM A RESUMPTION OF CARE VISIT FOLLOWING ANY HOSPITAL ADMISSION. PT TO EVALUATE, OBSERVE / ASSESS, AND MONITOR, PENETRATION TESTER TO OBSERVE AND MONITOR, PROVIDE SKILLED THERAPEUTIC INTERVENTION, ACTIVITY, EDUCATION, AND TRAINING TO ADDRESS; PT/PENETRATION TESTER TO PROVIDE GAIT TRAINING FOR IMPROVED MOBILITY AND /OR TO NORMALIZE GAIT PATTERN NEUROMUSCULAR RE-EDUCATION / BALANCE / POSTURAL CONTROL (PT) THERAPEUTIC EXERCISES AND ESTABLISHING A HOME EXERCISE PROGRAM (PT/PENETRATION TESTER) SIT TO/FROM STAND TRANSFERS (PT/PENETRATION TESTER) PT / PENETRATION TESTER TO MONITOR AND EDUCATE ON OXYGEN SATURATION DURING ADLS/IADLS, NOTIFY PHYSICIAN AND/OR THE RN CLINICAL ACTUARIAL TRAINEE FOR PHYSICIAN NOTIFICATION AND IF O2 SATS BELOW PHYSICIAN ORDERED PARAMETERS AFTER 10 MIN OF REST PT / PENETRATION TESTER MAY EDUCATE ON PAIN MANAGEMENT CLINICALLY INDICATED, INCLUDING NON-PHARMACOLOGICAL PAIN REDUCTION TECHNIQUES AND USE OF CRYOTHERAPY OR HEAT UP TO 20 MIN AT A TIME FOR PAIN MANAGEMENT 3 TIMES PER DAY PT / PENETRATION TESTER TO MONITOR FOR HYPO/HYPERGLYCEMIA AND CONDUCT ROUTINE FOOT INSPECTIONS. RECORD PATIENT REPORTED BLOOD SUGAR LEVELS AND NOTIFY PHYSICIAN AND/OR THE RN CLINICAL ACTUARIAL TRAINEE FOR PHYSICIAN NOTIFICATION IF BLOOD SUGAR LEVELS ARE OUTSIDE ORDERED PARAMETERS. TEACH PATIENT/CAREGIVER ON DAILY FOOT INSPECTIONS PT / PENETRATION TESTER TO EDUCATE ON HEART FAILURE SELF-MANAGEMENT PT/PENETRATION TESTER TO IDENTIFY FALL RISK FACTORS; EDUCATE THE PATIENT/CAREGIVER ON WAYS TO REDUCE FALL RISK FACTORS AND ESTABLISH HOME EXERCISE PROGRAM TO MINIMIZE FALL RISK. MAY TEACH THE PATIENT FLOOR RECOVERY WHEN CLINICALLY APPROPRIATE [code = AGENCY MAY PERFORM A RESUMPTION OF CARE VISIT FOLLOWING ANY HOSPITAL ADMISSION. PT TO EVALUATE, OBSERVE / ASSESS, AND MONITOR, PENETRATION TESTER TO OBSERVE AND MONITOR, PROVIDE SKILLED THERAPEUTIC INTERVENTION, ACTIVITY, EDUCATION, AND TRAINING TO ADDRESS; PT/PENETRATION TESTER TO PROVIDE GAIT TRAINING FOR IMPROVED MOBILITY AND /OR TO NORMALIZE GAIT PATTERN NEUROMUSCULAR RE-EDUCATION / BALANCE / POSTURAL CONTROL (PT) THERAPEUTIC EXERCISES AND ESTABLISHING A HOME EXERCISE PROGRAM (PT/PENETRATION TESTER) SIT TO/FROM STAND TRANSFERS (PT/PENETRATION TESTER) PT / PENETRATION TESTER TO MONITOR AND EDUCATE ON OXYGEN SATURATION DURING ADLS/IADLS, NOTIFY PHYSICIAN AND/OR THE RN CLINICAL ACTUARIAL TRAINEE FOR PHYSICIAN NOTIFICATION AND IF O2 SATS BELOW PHYSICIAN ORDERED PARAMETERS AFTER 10 MIN OF REST PT / PENETRATION TESTER MAY EDUCATE ON PAIN MANAGEMENT CLINICALLY INDICATED, INCLUDING NON-PHARMACOLOGICAL PAIN REDUCTION TECHNIQUES AND USE OF CRYOTHERAPY OR HEAT UP TO 20 MIN AT A TIME FOR PAIN MANAGEMENT 3 TIMES PER DAY PT / PENETRATION TESTER TO MONITOR FOR HYPO/HYPERGLYCEMIA AND CONDUCT ROUTINE FOOT INSPECTIONS. RECORD PATIENT REPORTED BLOOD SUGAR LEVELS AND NOTIFY PHYSICIAN AND/OR THE RN CLINICAL ACTUARIAL TRAINEE FOR PHYSICIAN NOTIFICATION IF BLOOD SUGAR LEVELS ARE OUTSIDE ORDERED PARAMETERS. TEACH PATIENT/CAREGIVER ON DAILY FOOT INSPECTIONS PT / PENETRATION TESTER TO EDUCATE ON HEART FAILURE SELF-MANAGEMENT PT/PENETRATION TESTER TO IDENTIFY FALL RISK FACTORS; EDUCATE THE PATIENT/CAREGIVER ON WAYS TO REDUCE FALL RISK FACTORS AND ESTABLISH HOME EXERCISE PROGRAM TO MINIMIZE FALL RISK. MAY TEACH THE PATIENT FLOOR RECOVERY WHEN CLINICALLY APPROPRIATE] Future Scheduled Test MEDICAL SO CIAL SERVICES FOR COMMUNITY RESOURCE PLANNING. [code = MEDICAL SAMPLE WORKER FOR COMMUNITY RESOURCE PLANNING.] Future Scheduled Test AGENCY MAY PERFORM A RESUMPTION OF CARE VISIT FOLLOWING ANY HOSPITAL ADMISSION. OT TO EVALUATE, OBSERVE / ASSESS, AND MONITOR, UNDERWRITING CLERK TO OBSERVE AND MONITOR, PROVIDE SKILLED THERAPEUTIC INTERVENTION, ACTIVITY, EDUCATION, AND TRAINING TO ADDRESS; IMPROVEMENT OF ACTIVITY TOLERANCE, IADL TASKS, SELF CARE PERFORMANCE ACTIVITIES OF DAILY LIVING (OT/UNDERWRITING CLERK) LIGHT HOUSEKEEPING (OT/UNDERWRITING CLERK) BATH/SHOWER TRANSFER (OT/CHELO) POSTURAL CONTROL/BALANCE (OT/CHELO) ENERGY CONSERVATION/ACTIVITY DEMAND (OT/UNDERWRITING CLERK) OT TO ASSESS / CHELO TO MONITOR FOR HEART FAILURE EXACERBATION AND RECORD PATIENT REPORTED WEIGHT, AND NOTIFY THE PHYSICIAN AND/OR THE RN CLINICAL ACTUARIAL TRAINEE FOR PHYSICIAN NOTIFICATION OF HF EXACERBATION (2LB WEIGHT GAIN IN 1 DAY, 5LBS IN A WEEK OR 5 LBS OVER BASELINE; INCREASED SOB, EDEMA, NEEDING MORE PILLOWS AT NIGHT, CRACKLES IN BASIS OF THE LUNGS OR PMI SHIFT). OT/UNDERWRITING CLERK TO MONITOR AND EDUCATE ON OXYGEN SATURATION DURING ADLS/IADLS, NOTIFY PHYSICIAN AND/OR THE RN CLINICAL ACTUARIAL TRAINEE FOR PHYSICIAN NOTIFICATION AND IF O2 SATS BELOW 90% AFTER 10 MIN OF REST. OT/CHELO TO MONITOR PATIENT WITH STABLE DEPRESSION ON SIGNS AND SYMPTOMS OF WORSENING DEPRESSION AND AVAILABLE RESOURCES INCLUDING [facility] SUICIDE CRISIS LIFELINE. OT/CHELO MAY EDUCATE ON PAIN MANAGEMENT CLINICALLY INDICATED, INCLUDING NON-PHARMACOLOGICAL PAIN REDUCTION TECHNIQUES AND USE OF CRYOTHERAPY OR HEAT UP TO 20 MIN AT A TIME FOR PAIN MANAGEMENT OT / UNDERWRITING CLERK TO IDENTIFY FALL RISK FACTORS; EDUCATE THE PATIENT/CAREGIVER ON WAYS TO REDUCE FALL RISK FACTORS AND ESTABLISH HOME EXERCISE PROGRAM TO MINIMIZE FALL RISK. MAY TEACH THE PATIENT FLOOR RECOVERY WHEN CLINICALLY APPROPRIATE. [code = AGENCY MAY PERFORM A RESUMPTION OF CARE VISIT FOLLOWING ANY HOSPITAL ADMISSION. OT TO EVALUATE, OBSERVE / ASSESS, AND MONITOR, UNDERWRITING CLERK TO OBSERVE AND MONITOR, PROVIDE SKILLED THERAPEUTIC INTERVENTION, ACTIVITY, EDUCATION, AND TRAINING TO ADDRESS; IMPROVEMENT OF ACTIVITY TOLERANCE, IADL TASKS, SELF CARE PERFORMANCE ACTIVITIES OF DAILY LIVING (OT/UNDERWRITING CLERK) LIGHT HOUSEKEEPING (OT/CHELO) BATH/SHOWER TRANSFER (OT/CHELO) POSTURAL CONTROL/BALANCE (OT/CHELO) ENERGY CONSERVATION/ACTIVITY DEMAND (OT/UNDERWRITING CLERK) OT TO ASSESS / CHELO TO MONITOR FOR HEART FAILURE EXACERBATION AND RECORD PATIENT REPORTED WEIGHT, AND NOTIFY THE PHYSICIAN AND/OR THE RN CLINICAL ACTUARIAL TRAINEE FOR PHYSICIAN NOTIFICATION OF HF EXACERBATION (2LB WEIGHT GAIN IN 1 DAY, 5LBS IN A WEEK OR 5 LBS OVER BASELINE; INCREASED SOB, EDEMA, NEEDING MORE PILLOWS AT NIGHT, CRACKLES IN BASIS OF THE LUNGS OR PMI SHIFT). OT/CHELO TO MONITOR AND EDUCATE ON OXYGEN SATURATION DURING ADLS/IADLS, NOTIFY PHYSICIAN AND/OR THE RN CLINICAL ACTUARIAL TRAINEE FOR PHYSICIAN NOTIFICATION AND IF O2 SATS BELOW 90% AFTER 10 MIN OF REST. OT/CHELO TO MONITOR PATIENT WITH STABLE DEPRESSION ON SIGNS AND SYMPTOMS OF WORSENING DEPRESSION AND AVAILABLE RESOURCES INCLUDING [facility] SUICIDE CRISIS LIFELINE. OT/UNDERWRITING CLERK MAY EDUCATE ON PAIN MANAGEMENT CLINICALLY INDICATED, INCLUDING NON-PHARMACOLOGICAL PAIN REDUCTION TECHNIQUES AND USE OF CRYOTHERAPY OR HEAT UP TO 20 MIN AT A TIME FOR PAIN MANAGEMENT OT / UNDERWRITING CLERK TO IDENTIFY FALL RISK FACTORS; EDUCATE THE [...] End Date/Time Encounter Type Admission Type Attending [facility] Care Department Encounter ID Discharge Date Discharge Status Discharge Condition Discharge Reason Percent Goals Met 2025-03-11 00:00:00 2025-05-09 00:00:00 Outpatient READMISSMICHAEL Valdez [facility] [id number]
== END 2025-03-18 23:59 | disposition home or self-care (01) ==
PROVIDERS: PCP Nurse Practitioner Family; Visit Provider Nurse Practitioner Family
DX: M54.16 Radiculopathy, lumbar region (principal)
CPT/HCPCS: 99212; G0463

== ENCOUNTER 2025-05-12 13:21 | Day surgery (SDC) | payer MEDICARE, MEDICAID, SELFPAY ==
[2025-05-12 13:23] VITALS: BP 116/50; PULSE 69; RESP 16; O2SAT 93; BMI 32.1
[2025-05-12 13:26] LABS: POC Glucose,Bedside 207 gm/dL (70-110)
--- NOTE | 2025-05-12 13:48 | P.PCN_ITS ---
Procedure Date: 05/12/25 Time: 13:35 Anesthesiologist:: Gabe Gilliam CRNA Complications:: None Pre-procedure Diagnosis:: Degenerative disc lumbar spine multilevels. Lumbar radiculopathy. Lumbar spondylosis. Multilevel lumbar facet arthropathy. Post-procedure Diagnosis:: Same. Indications for Procedure:: Patient is a pleasant 69-year-old female who comes our clinic today for lumbar epidural steroid injection at L5-S1 level. Patient describes low lumbar back pain as well as bilateral hip and leg radicular symptoms. She rates her pain 7/10. Procedure Details:: Procedure: Lumbar epidural steroid injection under fluoroscopy Informed consent was obtained and the risks and benefits of the procedure were explained to the patient. The patient was taken to the procedure room and noninvasive monitors placed, including noninvasive blood pressure cuff and pulse oximeter. The back was viewed using C-arm Fluoroscopy and prepped using Chloraprep as a cleansing solution and the L5-S1 interspace was palpated. Skin and subcutaneous tissues were anesthetized using lidocaine 1.5% and a 25-gauge needle. After this, an 18-gauge Touhy epidural needle was placed into the L5-S1 interspace and advanced using fluoroscopic guidance and loss of resistance to air until the epidural space was encountered. After confirmation of needle placement in the epidural space, with dye, a solution containing normal saline, 3 mL and dexamethasone 10 mg were incrementally injected into the lumbar epidural space. The patient tolerated the procedure well with no complications. The patient was observed in the Pain Clinic and then discharged home rocco rologically intact. Plan and Disposition:: Patient was discharged without incident.
[2025-05-12 13:54] VITALS: BP 123/45; PULSE 71; RESP 16; O2SAT 91
[2025-05-12 13:55] VITALS: BP 154/52; PULSE 78; RESP 18; O2SAT 87
[2025-05-12] MEDS: DEXAMETHASONE 10MG/ML 1ML VIAL 10 MG (13:55)
[2025-05-12 13:56] VITALS: BP 154/52; PULSE 78; RESP 18; O2SAT 87
== END 2025-05-12 13:54 | disposition home or self-care (01) ==
PROVIDERS: PCP Family Medicine; Visit Provider Nurse Anesthetist, Certified Registered
DX: M51.16 Intervertebral disc disorders with radiculopathy, lumbar region (principal); M47.26 Other spondylosis with radiculopathy, lumbar region; E11.9 Type 2 diabetes mellitus without complications; E78.5 Hyperlipidemia, unspecified; I48.91 Unspecified atrial fibrillation; I11.9 Hypertensive heart disease without heart failure; J44.89 Other specified chronic obstructive pulmonary disease; F17.210 Nicotine dependence, cigarettes, uncomplicated; Z95.0 Presence of cardiac pacemaker; Z79.01 Long term (current) use of anticoagulants; Z79.51 Long term (current) use of inhaled steroids; Z79.4 Long term (current) use of insulin; Z79.84 Long term (current) use of oral hypoglycemic drugs; Z88.0 Allergy status to penicillin; Z79.899 Other long term (current) drug therapy; Z91.041 Radiographic dye allergy status; Z88.2 Allergy status to sulfonamides; Z88.8 Allergy status to other drugs, medicaments and biological substances
CPT/HCPCS: 62323; 82962; J1100

== ENCOUNTER 2025-06-01 16:33 | Emergency (ER) | payer MEDICARE, MEDICAID, SELFPAY ==
--- OUTSIDE RECORDS SUMMARY | 2025-05-05 19:00 | XMS_ITS | Clinical Summary ---
Author Organization Unknown Care Team Providers Care Clinical Research Scientist Name Role Phone MARIEL TAPPER BALANCE WHEEL SCREW HOLE, DORENE Unavailable Unavailable HAYDER RN, ANNY Unavailable Unavailable GRICEL PT, ARNOL Unavailable Unavailable KARINA INFANTRY SENIOR SERGEANT, BRIANNA Unavailable Unavailable JOE OT, JOSE Unavailable Unavailable CINDI THOMPSON, ELAN Unavailable Unavailable Payers Payer Name Policy Type Policy Number Effective Date Expira tion Date MEDICARE.[facility] [id number] Problems Condition Name Condition Details Condition Category [...] ON SUPPLEMENTAL OXYGEN Active 03-11 00:00: 00 CALENDER WIND UP HELPER (CURRENT) USE OF ANTICOAGULAN TS Active 03-11 00:00: 00 CALENDER WIND UP HELPER (CURRENT) USE OF NON-STEROIDA L NON-INFLAM (NSAID) Active 03-11 00:00: 00 CALENDER WIND UP HELPER (CURRENT) USE OF INHALED STEROIDS Active 03-11 00:00: 00 PRISON (CURRENT) USE OF INSULIN Active 03-11 00:00: 00 PRISON (CURRENT) USE OF ORAL HYPOGLYCEMIC DRUGS Active [...] 12-24 00:00: 00 03-11 00:00 :00 No [id number] Per instruc tions Per instructio ns (route: oral) Med Classific ation: Anti-Infe ctive Agents tramadol 50 mg tablet 12-24 00:00: 00 03-11 00:00 :00 No [id number] Per instruc tions Per instructio ns (route: oral) Med Classific ation: Analgesic , Anti-infl ammatory or Antipyret ic Basaglar KwikPen U-100 Insulin 100 unit/mL (3 mL) subcutaneou s 12-18 00:00: 00 03-11 00:00 :00 No [id number] Per instruc tions SUBCUTANEO USLY TWICE DAILY Per instructio ns SUBCUTANEO USLY TWICE DAILY (route: subcutaneo us) Med Classific ation: Endocrine nicotine (polacrilex ) 4 mg gum 12-11 00:00: 00 Yes [id number] SMOKING CESSATION Per instruc tions EVERY 2 HOURS Per instructio ns EVERY 2 HOURS (route: buccal) Med Classific ation: Chemical Dependenc y, Agents to Treat BD Ultra-Fine Micro Pen Needle 32 gauge x 1/4 11-28 00:00: 00 Yes [id number] DIABETES Per instruc tions DIRECTED DAILY Per instructio ns DIRECTED DAILY (route: miscellane ous) Med Classific ation: Medical Supplies and Durable Medical Equipment (DME) Easy Touch Test Strip 11-28 00:00: 00 Yes [id number] DIABETES Per instruc tions TO test blood glucose THREE TIMES DAILY DIRECTED Per instructio ns TO test blood glucose THREE TIMES DAILY DIRECTED (route: miscellane ous) Med Classific ation: Medical Supplies and Durable Medical Equipment (DME) magnesium oxide 400 mg (241.3 mg magnesium) tablet 11-28 00:00: 00 Yes [id number] SUPPLEMENT 1 tablet 2 TIMES DAILY 1 tablet 2 TIMES DAILY (route: oral) Med Classific ation: Electroly te Balance-N utritiona l Products ropinirole 0.25 mg tablet 11-28 00:00: 00 Yes [id number] RLS 2 tablet BEDTIME 2 tablet BEDTIME (route: oral) Med Classific ation: Central Nervous System Agents spironolact one 25 mg tablet 11-28 00:00: 00 Yes [id number] CHF 1 tablet DAILY 1 tablet DAILY (route: oral) Med Classific ation: Cardiovas cular Therapy Agents TRUEplus Lancets 33 gauge 11-28 00:00: 00 Yes [id number] DIABETES Per instruc tions TWICE DAILY DIRECTED Per instructio ns TWICE DAILY DIRECTED (route: miscellane ous) Med Classific ation: Medical Supplies and Durable Medical Equipment (DME) albuterol sulfate HFA 90 mcg/actuati on aerosol inhaler 11-27 00:00: 00 Yes [id number] SOB 2 puff EVERY 6 HOURS 2 puff EVERY 6 HOURS (route: inhalation ) Med Classific ation: Respirato ry Therapy Agents pregabalin 25 mg capsule 30 00:00: 00 03-11 00:00 :00 No [id number] Per instruc tions AT BEDTIME Per instructio ns AT BEDTIME (route: oral) Med Classific ation: Central Nervous System Agents prednisone 20 mg tablet 03-10 00:00: 00 03-15 23:59 :00 No [id number] PNA 1 tablet 2 TIMES DAILY 1 tablet 2 TIMES DAILY (route: oral) Med Classific ation: Endocrine atorvastati n 80 mg tablet 03-10 00:00: 00 Yes [id number] CHOLESTEROL 1 tablet DAILY 1 tablet DAILY (route: oral) Med Classific ation: Cardiovas cular Therapy Agents bisoprolol fumarate 10 mg tablet 03-10 00:00: 00 Yes [id number] HTN 1 tablet 2 TIMES DAILY 1 tablet 2 TIMES DAILY (route: oral) Med Classific ation: Cardiovas cular Therapy Agents budesonide 0.5 mg/2 mL suspension for nebulizatio n 03-10 00:00: 00 Yes [id number] COPD 0.5 mg 2 TIMES DAILY 0.5 mg 2 TIMES DAILY (route: inhalation ) Med Classific ation: Respirato ry Therapy Agents buspirone 10 mg tablet 03-10 00:00: 00 Yes [id number] MOOD 1 tablet 2 TIMES DAILY 1 tablet 2 TIMES DAILY (route: oral) Med Classific ation: Central Nervous System Agents diclofenac 1 % topical gel 03-10 00:00: 00 Yes [id number] ARTHRITIS Per instruc tions 4 TIMES DAILY Per instructio ns 4 TIMES DAILY (route: topical) Med Classific ation: Dermatolo gical diltiazem CD 240 mg capsule,ext ended release 24 hr 03-10 00:00: 00 Yes [id number] HTN 1 capsule DAILY 1 capsule DAILY (route: oral) Med Classific ation: Cardiovas cular Therapy Agents fluoxetine 20 mg capsule 03-10 00:00: 00 Yes [id number] MOOD 1 capsule 2 TIMES DAILY 1 capsule 2 TIMES DAILY (route: oral) Med Classific ation: Central Nervous System Agents fluticasone propionate 50 mcg/actuati on nasal spray,suspe nsion - 00:00: 00 Yes [id number] ALLERGIES 1 spray DAILY 1 spray DAILY (route: nasal) Med Classific ation: Respirato ry Therapy Agents furosemide 40 mg tablet 03-10 00:00: 00 Yes [id number] FLUID 1 tablet DAILY 1 tablet DAILY (route: oral) Med Classific ation: Cardiovas cular Therapy Agents insulin glargine (U-100) 100 unit/mL (3 mL) subcutane s pen 03-10 00:00: 00 Yes [id number] DIABETES 35 In unit 2 TIMES DAILY 35 In unit 2 TIMES DAILY (route: subcutaneo us) Med Classific ation: Endocrine Jardiance 25 mg tablet 03-10 00:00: 00 Yes [id number] DIABETES 1 tablet DAILY 1 tablet DAILY (route: oral) Med Classific ation: Endocrine lisinopril 2.5 mg tablet 03-10 00:00: 00 Yes [id number] HTN 1 tablet BEDTIME 1 tablet BEDTIME (route: oral) Med Classific ation: Cardiovas cular Therapy Agents metformin 500 mg tablet 03-10 00:00: 00 Yes [id number] DIABETES 2 tablet 2 TIMES DAILY 2 tablet 2 TIMES DAILY (route: oral) Med Classific ation: Endocrine montelukast 10 mg tablet 03-10 00:00: 00 Yes [id number] ALLERGIES 1 tablet BEDTIME 1 tablet BEDTIME (route: oral) Med Classific ation: Respirato ry Therapy Agents naproxen 500 mg tablet 03-10 00:00: 00 Yes [id number] PAIN 1 tablet 2 TIMES DAILY 1 tablet 2 TIMES DAILY (route: oral) Med Classific ation: Analgesic , Anti-infl ammatory or Antipyret ic pantoprazol e 40 mg tablet,concepción yed release 03-10 00:00: 00 Yes [id number] GI 1 tablet DAILY 1 tablet DAILY (route: oral) Med Classific ation: Gastroint estinal Therapy Agents Xarelto 20 mg tablet 03-10 00:00: 00 Yes [id number] BLOOD THINNER 1 tablet BEDTIME 1 tablet [...] SOLO (PODIATRY) RN TO OBSERVE AND ASSESS, WATER RESOURCES BUSINESS SEGMENT LEADER/BAND INSTRUMENT MAKER TO OBSERVE FOR RISK FOR FALLS AND INSTRUCT IN FALL PREVENTION, HOME SAFETY, MEDICATION MANAGEMENT, INFECTION PREVENTION, AND NUTRITION MANAGEMENT. RN/WATER RESOURCES BUSINESS SEGMENT LEADER/BAND INSTRUMENT MAKER NURSE MAY PERFORM O2 SATURATION LEVEL ON ADMISSION AND PRN FOR SOB FOR RN TO ASSESS/WATER RESOURCES BUSINESS SEGMENT LEADER TO OBSERVE PATIENT, WITH NOTIFICATION TO THE PHYSICIAN IF SATURATION IS 90% IN THE ABSENCE OF MORE SPECIFIC PARAMETERS FROM THE PHYSICIAN. AGENCY MAY PERFORM A RESUMPTION OF CARE VISIT FOLLOWING ANY HOSPITAL ADMISSION. RN/WATER RESOURCES BUSINESS SEGMENT LEADER/BAND INSTRUMENT MAKER TO MONITOR CO-MORBID CONDITIONS LISTED ON THE [...] SOLO (PODIATRY) RN TO OBSERVE AND ASSESS, WATER RESOURCES BUSINESS SEGMENT LEADER/BAND INSTRUMENT MAKER TO OBSERVE FOR RISK FOR FALLS AND INSTRUCT IN FALL PREVENTION, HOME SAFETY, MEDICATION MANAGEMENT, INFECTION PREVENTION, AND NUTRITION MANAGEMENT. RN/WATER RESOURCES BUSINESS SEGMENT LEADER/BAND INSTRUMENT MAKER NURSE MAY PERFORM O2 SATURATION LEVEL ON ADMISSION AND PRN FOR SOB FOR RN TO ASSESS/WATER RESOURCES BUSINESS SEGMENT LEADER TO OBSERVE PATIENT, WITH NOTIFICATION TO THE PHYSICIAN IF SATURATION IS 90% IN THE ABSENCE OF MORE SPECIFIC PARAMETERS FROM THE PHYSICIAN. AGENCY MAY PERFORM A RESUMPTION OF CARE VISIT FOLLOWING ANY HOSPITAL ADMISSION. RN/WATER RESOURCES BUSINESS SEGMENT LEADER/BAND INSTRUMENT MAKER TO MONITOR CO-MORBID CONDITIONS LISTED ON THE PLAN OF CARE AND ANY NEW CONDITIONS THAT PRESENT THEMSELVES DURING THIS EPISODE TO IDENTIFY CHANGES AND INTERVENE TO MINIMIZE COMPLICATIONS.] Future Scheduled Test MEDICATION MANAGEMENT; RN/WATER RESOURCES BUSINESS SEGMENT LEADER/BAND INSTRUMENT MAKER TO REVIEW MEDICATIONS FOR INTERACTIONS, EFFECTIVENESS OF DRUG THERAPY, AND SIGNS/SYMPTOMS OF ADVERSE REACTIONS. MAY INSTRUCT AND REINFORCE MEDICATION TEACHING RELATED TO THE USE OF MEDICATIONS, DOSAGE, FREQUENCY, PURPOSE, SIDE EFFECTS, AND TO REPORT COMPLICATIONS. [code = MEDICATION MANAGEMENT; RN/WATER RESOURCES BUSINESS SEGMENT LEADER/BAND INSTRUMENT MAKER TO REVIEW MEDICATIONS FOR INTERACTIONS, EFFECTIVENESS OF DRUG THERAPY, AND SIGNS/SYMPTOMS OF ADVERSE REACTIONS. MAY INSTRUCT AND REINFORCE MEDICATION TEACHING RELATED TO THE USE OF MEDICATIONS, DOSAGE, FREQUENCY, PURPOSE, SIDE EFFECTS, AND TO REPORT COMPLICATIONS.] Future Scheduled Test RISK FOR H OSPITALIZATION; RN TO ASSESS/TEACH, BAND INSTRUMENT MAKER/WATER RESOURCES BUSINESS SEGMENT LEADER TO OBSERVE/TEACH PATIENT/CAREGIVER ON RISK FOR HOSPITALIZATION/EMERGENCY ROOM VISITS, TEACH SIGNS AND SYMPTOMS THAT PUT PATIENT AT RISK, WHEN TO NOTIFY NURSE/PHYSICIAN OF COMPLICATIONS/DECLINE, AND WHEN TO CALL 911. [code = RISK FOR HOSPITALIZATION; RN TO ASSESS/TEACH, BAND INSTRUMENT MAKER/WATER RESOURCES BUSINESS SEGMENT LEADER TO OBSERVE/TEACH PATIENT/CAREGIVER ON RISK FOR HOSPITALIZATION/EMERGENCY ROOM VISITS, TEACH SIGNS AND SYMPTOMS THAT PUT PATIENT AT RISK, WHEN TO NOTIFY NURSE/PHYSICIAN OF COMPLICATIONS/DECLINE, AND WHEN TO CALL 911.] Future Scheduled Test CARDIOVASC ULAR SYSTEM; RN TO ASSESS/TEACH, WATER RESOURCES BUSINESS SEGMENT LEADER/BAND INSTRUMENT MAKER TO OBSERVE/TEACH RELATED TO ALTERED CARDIOVASCULAR STATUS TO MINIMIZE COMPLICATIONS AND REDUCE HOSPITALIZATION. [code = CARDIOVASCULAR SYSTEM; RN TO ASSESS/TEACH, WATER RESOURCES BUSINESS SEGMENT LEADER/BAND INSTRUMENT MAKER TO OBSERVE/TEACH RELATED TO ALTERED CARDIOVASCULAR STATUS TO MINIMIZE COMPLICATIONS AND REDUCE HOSPITALIZATION.] Future Scheduled Test HEART FAIL URE; RN TO ASSESS/TEACH, WATER RESOURCES BUSINESS SEGMENT LEADER/BAND INSTRUMENT MAKER TO OBSERVE/TEACH CARDIOPULMONARY SYSTEM TO IDENTIFY SIGNS [...] [code = HEART FAILURE; RN TO ASSESS/TEACH, WATER RESOURCES BUSINESS SEGMENT LEADER/BAND INSTRUMENT MAKER TO OBSERVE/TEACH CARDIOPULMONARY SYSTEM TO IDENTIFY SIGNS [...] ON MANAGEMENT; RN TO ASSESS AND TEACH, WATER RESOURCES BUSINESS SEGMENT LEADER/BAND INSTRUMENT MAKER TO OBSERVE AND TEACH WARNING SIGNS AND SYMPTOMS TO AVOID HOSPITALIZATION. [code = HYPERTENSION MANAGEMENT; RN TO ASSESS AND TEACH, WATER RESOURCES BUSINESS SEGMENT LEADER/BAND INSTRUMENT MAKER TO OBSERVE AND TEACH WARNING SIGNS AND SYMPTOMS TO AVOID HOSPITALIZATION.] Future Scheduled Test ARRHYTHMIA MANAGEMENT; RN TO ASSESS AND TEACH, WATER RESOURCES BUSINESS SEGMENT LEADER/BAND INSTRUMENT MAKER TO OBSERVE AND TEACH WARNING SIGNS AND SYMPTOMS TO AVOID HOSPITALIZATION. [code = ARRHYTHMIA MANAGEMENT; RN TO ASSESS AND TEACH, WATER RESOURCES BUSINESS SEGMENT LEADER/BAND INSTRUMENT MAKER TO OBSERVE AND TEACH WARNING SIGNS AND SYMPTOMS TO AVOID HOSPITALIZATION.] Future Scheduled Test RESPIRATOR Y SYSTEM MANAGEMENT; RN TO ASSESS AND TEACH, WATER RESOURCES BUSINESS SEGMENT LEADER/BAND INSTRUMENT MAKER TO OBSERVE AND TEACH RELATED TO ALTERED RESPIRATORY STATUS TO MINIMIZE COMPLICATIONS AND REDUCE HOSPITALIZATION. [code = RESPIRATORY SYSTEM MANAGEMENT; RN TO ASSESS AND TEACH, WATER RESOURCES BUSINESS SEGMENT LEADER/BAND INSTRUMENT MAKER TO OBSERVE AND TEACH RELATED TO ALTERED RESPIRATORY STATUS TO MINIMIZE COMPLICATIONS AND REDUCE HOSPITALIZATION.] Future Scheduled Test COPD MANAG EMENT; RN TO ASSESS AND TEACH, WATER RESOURCES BUSINESS SEGMENT LEADER/BAND INSTRUMENT MAKER TO OBSERVE AND TEACH SIGNS/SYMPTOMS OF COPD EXACERBATION AND PROVIDE EARLY INTERVENTIONS TO MINIMIZE RISK OF HOSPITALIZATION. RN/WATER RESOURCES BUSINESS SEGMENT LEADER/BAND INSTRUMENT MAKER TO INSTRUCT ON SELF-CARE MANAGEMENT INCLUDING BREATHING TECHNIQUES, AIRWAY CLEARANCE, AND PROPER USE OF COPD MEDICATIONS. RN TO ASSESS AND TEACH, WATER RESOURCES BUSINESS SEGMENT LEADER/BAND INSTRUMENT MAKER TO OBSERVE AND TEACH PATIENT/CAREGIVER ABILITY TO MONITOR AND RECORD VITAL SIGNS INCLUDING PULSE OXIMETRY AND BLOOD PRESSURE. PULSE OXIMETER AND BP MONITOR TO BE PROVIDED IF NEEDED [code = COPD MANAGEMENT; RN TO ASSESS AND TEACH, WATER RESOURCES BUSINESS SEGMENT LEADER/BAND INSTRUMENT MAKER TO OBSERVE AND TEACH SIGNS/SYMPTOMS OF COPD EXACERBATION AND PROVIDE EARLY INTERVENTIONS TO MINIMIZE RISK OF HOSPITALIZATION. RN/WATER RESOURCES BUSINESS SEGMENT LEADER/BAND INSTRUMENT MAKER TO INSTRUCT ON SELF-CARE MANAGEMENT INCLUDING BREATHING TECHNIQUES, AIRWAY CLEARANCE, AND PROPER USE OF COPD MEDICATIONS. RN TO ASSESS AND TEACH, WATER RESOURCES BUSINESS SEGMENT LEADER/BAND INSTRUMENT MAKER TO OBSERVE AND TEACH PATIENT/CAREGIVER ABILITY TO MONITOR AND RECORD VITAL SIGNS INCLUDING PULSE OXIMETRY AND BLOOD PRESSURE. PULSE OXIMETER AND BP MONITOR TO BE PROVIDED IF NEEDED] Future Scheduled Test PNEUMONIA MANAGEMENT; RN TO ASSESS AND TEACH, WATER RESOURCES BUSINESS SEGMENT LEADER/BAND INSTRUMENT MAKER TO OBSERVE AND TEACH SIGNS OF PNEUMONIA EXACERBATION AND PROVIDE EARLY INTERVENTIONS TO MINIMIZE RISK OF HOSPITALIZATION. [code = PNEUMONIA MANAGEMENT; RN TO ASSESS AND TEACH, WATER RESOURCES BUSINESS SEGMENT LEADER/BAND INSTRUMENT MAKER TO OBSERVE AND TEACH SIGNS OF PNEUMONIA EXACERBATION AND PROVIDE EARLY INTERVENTIONS TO MINIMIZE RISK OF HOSPITALIZATION.] Future Scheduled Test ASTHMA MAN AGEMENT; RN TO ASSESS AND TEACH, WATER RESOURCES BUSINESS SEGMENT LEADER/BAND INSTRUMENT MAKER TO OBSERVE AND TEACH ASTHMA MANAGEMENT AND PROVIDE EARLY INTERVENTIONS TO MINIMIZE RISK OF HOSPITALIZATION [code = ASTHMA MANAGEMENT; RN TO ASSESS AND TEACH, WATER RESOURCES BUSINESS SEGMENT LEADER/BAND INSTRUMENT MAKER TO OBSERVE AND TEACH ASTHMA MANAGEMENT AND PROVIDE EARLY INTERVENTIONS TO MINIMIZE RISK OF HOSPITALIZATION] Future Scheduled Test OXYGEN THE RAPY; RN/WATER RESOURCES BUSINESS SEGMENT LEADER/BAND INSTRUMENT MAKER TO INSTRUCT ON OXYGEN MANAGEMENT INCLUDING: ADMINISTRATION AT 4 L/MIN VIA NC CONTINUOUS, CARE OF EQUIPMENT AND SAFETY. [code = OXYGEN THERAPY; RN/WATER RESOURCES BUSINESS SEGMENT LEADER/BAND INSTRUMENT MAKER TO INSTRUCT ON OXYGEN MANAGEMENT INCLUDING: ADMINISTRATION AT 4 L/MIN VIA NC CONTINUOUS, CARE OF EQUIPMENT AND SAFETY.] Future Scheduled Test SKIN INTEG RITY RN TO ASSESS AND TEACH, WATER RESOURCES BUSINESS SEGMENT LEADER/BAND INSTRUMENT MAKER TO OBSERVE AND TEACH INTEGUMENTARY STATUS TO IDENTIFY CHANGES AND INTERVENE TO MINIMIZE COMPLICATIONS. PROVIDE SKILLED TEACHING OF GENERAL WOUND AND SKIN CARE AND PREVENTION RELATED TO POTENTIAL FOR OR ACTUAL ALTERED SKIN INTEGRITY [code = SKIN INTEGRITY RN TO ASSESS AND TEACH, WATER RESOURCES BUSINESS SEGMENT LEADER/BAND INSTRUMENT MAKER TO OBSERVE AND TEACH INTEGUMENTARY STATUS TO IDENTIFY CHANGES AND INTERVENE TO MINIMIZE COMPLICATIONS. PROVIDE SKILLED TEACHING OF GENERAL WOUND AND SKIN CARE AND PREVENTION RELATED TO POTENTIAL FOR OR ACTUAL ALTERED SKIN INTEGRITY] Future Scheduled Test PAIN MANAG EMENT; RN TO ASSESS AND TEACH, BAND INSTRUMENT MAKER/WATER RESOURCES BUSINESS SEGMENT LEADER TO OBSERVE AND TEACH AND PROVIDE EDUCATION ON PAIN MANAGEMENT TECHNIQUES. [code = PAIN MANAGEMENT; RN TO ASSESS AND TEACH, BAND INSTRUMENT MAKER/WATER RESOURCES BUSINESS SEGMENT LEADER TO OBSERVE AND TEACH AND PROVIDE EDUCATION ON PAIN MANAGEMENT TECHNIQUES.] Future Scheduled Test DIABETES M ANAGEMENT; RN TO ASSESS AND TEACH, BAND INSTRUMENT MAKER/WATER RESOURCES BUSINESS SEGMENT LEADER TO OBSERVE AND TEACH INSTRUCTIONS OF DIABETIC CARE TO INCLUDE: DIET , SKIN CARE, SIGNS AND SYMPTOMS OF HYPO/HYPERGLYCEMIA, PROPER ADMINISTRATION OF DIABETIC MEDICATION. RN TO ASSESS AND TEACH, BAND INSTRUMENT MAKER/WATER RESOURCES BUSINESS SEGMENT LEADER TO OBSERVE AND TEACH PATIENT/CAREGIVER ABILITY TO PERFORM AND RECORD BLOOD GLUCOSE TESTING ORDERED AND TO REPORT ABNORMAL FINDINGS TO PHYSICIAN. RN/BAND INSTRUMENT MAKER/WATER RESOURCES BUSINESS SEGMENT LEADER MAY PERFORM BLOOD GLUCOSE TEST NEEDED. RN/BAND INSTRUMENT MAKER/WATER RESOURCES BUSINESS SEGMENT LEADER TO INSTRUCT PATIENT ON IMPORTANCE OF HGBA1C MONITORING, KIDNEY FUNCTION TEST, EYE AND FOOT EXAMS. [code = DIABETES MANAGEMENT; RN TO ASSESS AND TEACH, BAND INSTRUMENT MAKER/WATER RESOURCES BUSINESS SEGMENT LEADER TO OBSERVE AND TEACH INSTRUCTIONS OF DIABETIC CARE TO INCLUDE: DIET , SKIN CARE, SIGNS AND SYMPTOMS OF HYPO/HYPERGLYCEMIA, PROPER ADMINISTRATION OF DIABETIC MEDICATION. RN TO ASSESS AND TEACH, BAND INSTRUMENT MAKER/WATER RESOURCES BUSINESS SEGMENT LEADER TO OBSERVE AND TEACH PATIENT/CAREGIVER ABILITY TO PERFORM AND RECORD BLOOD GLUCOSE TESTING ORDERED AND TO REPORT ABNORMAL FINDINGS TO PHYSICIAN. RN/BAND INSTRUMENT MAKER/WATER RESOURCES BUSINESS SEGMENT LEADER MAY PERFORM BLOOD GLUCOSE TEST NEEDED. RN/BAND INSTRUMENT MAKER/WATER RESOURCES BUSINESS SEGMENT LEADER TO INSTRUCT PATIENT ON IMPORTANCE OF HGBA1C MONITORING, KIDNEY FUNCTION TEST, EYE AND FOOT EXAMS.] Future Scheduled Test GENITOURIN RIOS MANAGEMENT; RN TO ASSESS AND TEACH, WATER RESOURCES BUSINESS SEGMENT LEADER/BAND INSTRUMENT MAKER TO OBSERVE AND TEACH RELATED TO ALTERED GENITOURINARY STATUS TO MINIMIZE COMPLICATIONS AND REDUCE HOSPITALIZATION. [code = GENITOURINARY MANAGEMENT; RN TO ASSESS AND TEACH, WATER RESOURCES BUSINESS SEGMENT LEADER/BAND INSTRUMENT MAKER TO OBSERVE AND TEACH RELATED TO ALTERED GENITOURINARY STATUS TO MINIMIZE COMPLICATIONS AND REDUCE HOSPITALIZATION.] Future Scheduled Test URINARY CU LTURE AND SENSITIVITY PROTOCOL UP TO 2 PRN RN/WATER RESOURCES BUSINESS SEGMENT LEADER/BAND INSTRUMENT MAKER VISITS MAY BE PERFORMED FOR S/S OF UTI. RN TO ASSESS, WATER RESOURCES BUSINESS SEGMENT LEADER/BAND INSTRUMENT MAKER TO OBSERVE INITIATION OF UTI PROTOCOL. RN/BAND INSTRUMENT MAKER/WATER RESOURCES BUSINESS SEGMENT LEADER TO INSTRUCT PATIENT AND/OR CAREGIVER ON S/S OF UTI TO REPORT TO RN/WATER RESOURCES BUSINESS SEGMENT LEADER/BAND INSTRUMENT MAKER IF NEW OR WORSENING SYMPTOMS. DRINK PLENTY OF WATER THROUGHOUT THE DAY TO MAINTAIN HYDRATION (UNLESS CONTRAINDICATED.) URINATE WHEN THE URGE IS FELT, DO NOT WAIT. WASH GENITALS DAILY. WIPE FROM FRONT TO BACK AFTER HAVING A BOWEL MOVEMENT. RN/BAND INSTRUMENT MAKER/WATER RESOURCES BUSINESS SEGMENT LEADER TO OBTAIN URINE SPECIMEN FOR UA WITH C/S VIA CLEAN CATCH URINE AND IF UNABLE TO OBTAIN MAY PERFORM AN IN AND OUT CATH. IF PATIENT HAS INDWELLING CATHETER MAY OBTAIN FROM SAMPLING PORT. NOTIFY PROVIDER OF RESULTS AND OBTAIN FURTHER ORDERS. [code = URINARY CULTURE AND SENSITIVITY PROTOCOL UP TO 2 PRN RN/WATER RESOURCES BUSINESS SEGMENT LEADER/BAND INSTRUMENT MAKER VISITS MAY BE PERFORMED FOR S/S OF UTI. RN TO ASSESS, WATER RESOURCES BUSINESS SEGMENT LEADER/BAND INSTRUMENT MAKER TO OBSERVE INITIATION OF UTI PROTOCOL. RN/BAND INSTRUMENT MAKER/WATER RESOURCES BUSINESS SEGMENT LEADER TO INSTRUCT PATIENT AND/OR CAREGIVER ON S/S OF UTI TO REPORT TO RN/WATER RESOURCES BUSINESS SEGMENT LEADER/BAND INSTRUMENT MAKER IF NEW OR WORSENING SYMPTOMS. DRINK PLENTY OF WATER THROUGHOUT THE DAY TO MAINTAIN HYDRATION (UNLESS CONTRAINDICATED.) URINATE WHEN THE URGE IS FELT, DO NOT WAIT. WASH GENITALS DAILY. WIPE FROM FRONT TO BACK AFTER HAVING A BOWEL MOVEMENT. RN/BAND INSTRUMENT MAKER/WATER RESOURCES BUSINESS SEGMENT LEADER TO OBTAIN URINE SPECIMEN FOR UA WITH C/S VIA CLEAN CATCH URINE AND IF UNABLE TO OBTAIN MAY PERFORM AN IN AND OUT CATH. IF PATIENT HAS INDWELLING CATHETER MAY OBTAIN FROM SAMPLING PORT. NOTIFY PROVIDER OF RESULTS AND OBTAIN FURTHER ORDERS.] Future Scheduled Test URINARY MO LECULAR TESTING PROTOCOL UP TO 2 PRN RN/WATER RESOURCES BUSINESS SEGMENT LEADER/BAND INSTRUMENT MAKER VISITS MAY BE PERFORMED FOR S/S OF UTI. RN TO ASSESS, WATER RESOURCES BUSINESS SEGMENT LEADER/BAND INSTRUMENT MAKER TO OBSERVE INITIATION OF UTI PROTOCOL. RN/BAND INSTRUMENT MAKER/WATER RESOURCES BUSINESS SEGMENT LEADER TO INSTRUCT PATIENT AND/OR CAREGIVER ON S/S OF UTI TO REPORT TO RN/BAND INSTRUMENT MAKER/WATER RESOURCES BUSINESS SEGMENT LEADER IF NEW OR WORSENING SYMPTOMS. DRINK PLENTY OF WATER THROUGHOUT THE DAY TO MAINTAIN HYDRATION (UNLESS CONTRAINDICATED.) URINATE WHEN THE URGE IS FELT, DO NOT WAIT. WASH GENITALS DAILY. WIPE FROM FRONT TO BACK AFTER HAVING A BOWEL MOVEMENT. RN/BAND INSTRUMENT MAKER/WATER RESOURCES BUSINESS SEGMENT LEADER TO OBTAIN URINE SPECIMEN FOR MOLECULAR URINE TESTING BY OPTION 1 OR OPTION 2 RN/BAND INSTRUMENT MAKER/WATER RESOURCES BUSINESS SEGMENT LEADER TO OBTAIN URINE SPECIMEN FOR U/A WITH [...] MOLECULAR TESTING PROTOCOL UP TO 2 PRN RN/WATER RESOURCES BUSINESS SEGMENT LEADER/BAND INSTRUMENT MAKER VISITS MAY BE PERFORMED FOR S/S OF UTI. RN TO ASSESS, WATER RESOURCES BUSINESS SEGMENT LEADER/BAND INSTRUMENT MAKER TO OBSERVE INITIATION OF UTI PROTOCOL. RN/BAND INSTRUMENT MAKER/WATER RESOURCES BUSINESS SEGMENT LEADER TO INSTRUCT PATIENT AND/OR CAREGIVER ON S/S OF UTI TO REPORT TO RN/BAND INSTRUMENT MAKER/WATER RESOURCES BUSINESS SEGMENT LEADER IF NEW OR WORSENING SYMPTOMS. DRINK PLENTY OF WATER THROUGHOUT THE DAY TO MAINTAIN HYDRATION (UNLESS CONTRAINDICATED.) URINATE WHEN THE URGE IS FELT, DO NOT WAIT. WASH GENITALS DAILY. WIPE FROM FRONT TO BACK AFTER HAVING A BOWEL MOVEMENT. RN/BAND INSTRUMENT MAKER/WATER RESOURCES BUSINESS SEGMENT LEADER TO OBTAIN URINE SPECIMEN FOR MOLECULAR URINE TESTING BY OPTION 1 OR OPTION 2 RN/BAND INSTRUMENT MAKER/WATER RESOURCES BUSINESS SEGMENT LEADER TO OBTAIN URINE SPECIMEN FOR U/A WITH [...] Scheduled Test URINARY TR ACT INFECTION MANAGEMENT; RN/BAND INSTRUMENT MAKER/WATER RESOURCES BUSINESS SEGMENT LEADER TO PROVIDE SKILLED TEACHING AND SELF- CARE MANAGEMENT RELATED TO UTI TO MINIMIZE COMPLICATIONS AND REDUCE THE RISK OF HOSPITALIZATION. [code = URINARY TRACT INFECTION MANAGEMENT; RN/BAND INSTRUMENT MAKER/WATER RESOURCES BUSINESS SEGMENT LEADER TO PROVIDE SKILLED TEACHING AND SELF- CARE MANAGEMENT RELATED TO UTI TO MINIMIZE COMPLICATIONS AND REDUCE THE RISK OF HOSPITALIZATION.] Future Scheduled Test FALL REDUC TION MANAGEMENT; RN TO ASSESS AND OBSERVE, WATER RESOURCES BUSINESS SEGMENT LEADER/BAND INSTRUMENT MAKER TO OBSERVE FALL RISK FACTORS AND EDUCATE PATIENT/CAREGIVER ON STRATEGIES TO MINIMIZE THE RISK OF FALLING. [code = FALL REDUCTION MANAGEMENT; RN TO ASSESS AND OBSERVE, WATER RESOURCES BUSINESS SEGMENT LEADER/BAND INSTRUMENT MAKER TO OBSERVE FALL RISK FACTORS AND EDUCATE PATIENT/CAREGIVER ON STRATEGIES TO MINIMIZE THE RISK OF FALLING.] Future Scheduled Test MEDICAL SO CIAL SERVICES FOR EVALUATION TO ASSESS SOCIAL AND EMOTIONAL FACTORS RELATED TO THE PATIENT'S ILLNESS, NEED FOR CARE, RESPONSE TO TREATMENT AND ADJUSTMENT TO CARE. [code = MEDICAL CLEANING LABORER FOR EVALUATION TO ASSESS SOCIAL AND EMOTIONAL FACTORS RELATED TO THE PATIENT'S ILLNESS, NEED FOR CARE, RESPONSE TO TREATMENT AND ADJUSTMENT TO CARE.] Future Scheduled Test AGENCY MAY PERFORM A RESUMPTION OF CARE VISIT FOLLOWING ANY HOSPITAL ADMISSION. PT TO EVALUATE, OBSERVE / ASSESS, AND MONITOR, INFANTRY SENIOR SERGEANT TO OBSERVE AND MONITOR, PROVIDE SKILLED THERAPEUTIC INTERVENTION, ACTIVITY, EDUCATION, AND TRAINING TO ADDRESS; PT/INFANTRY SENIOR SERGEANT TO PROVIDE GAIT TRAINING FOR IMPROVED MOBILITY AND /OR TO NORMALIZE GAIT PATTERN NEUROMUSCULAR RE-EDUCATION / BALANCE / POSTURAL CONTROL (PT) THERAPEUTIC EXERCISES AND ESTABLISHING A HOME EXERCISE PROGRAM (PT/INFANTRY SENIOR SERGEANT) SIT TO/FROM STAND TRANSFERS (PT/INFANTRY SENIOR SERGEANT) PT / INFANTRY SENIOR SERGEANT TO MONITOR AND EDUCATE ON OXYGEN SATURATION DURING ADLS/IADLS, NOTIFY PHYSICIAN AND/OR THE RN CLINICAL GIS SOFTWARE DEVELOPER FOR PHYSICIAN NOTIFICATION AND IF O2 SATS BELOW PHYSICIAN ORDERED PARAMETERS AFTER 10 MIN OF REST PT / INFANTRY SENIOR SERGEANT MAY EDUCATE ON PAIN MANAGEMENT CLINICALLY INDICATED, INCLUDING NON-PHARMACOLOGICAL PAIN REDUCTION TECHNIQUES AND USE OF CRYOTHERAPY OR HEAT UP TO 20 MIN AT A TIME FOR PAIN MANAGEMENT 3 TIMES PER DAY PT / INFANTRY SENIOR SERGEANT TO MONITOR FOR HYPO/HYPERGLYCEMIA AND CONDUCT ROUTINE FOOT INSPECTIONS. RECORD PATIENT REPORTED BLOOD SUGAR LEVELS AND NOTIFY PHYSICIAN AND/OR THE RN CLINICAL GIS SOFTWARE DEVELOPER FOR PHYSICIAN NOTIFICATION IF BLOOD SUGAR LEVELS ARE OUTSIDE ORDERED PARAMETERS. TEACH PATIENT/CAREGIVER ON DAILY FOOT INSPECTIONS PT / INFANTRY SENIOR SERGEANT TO EDUCATE ON HEART FAILURE SELF-MANAGEMENT PT/INFANTRY SENIOR SERGEANT TO IDENTIFY FALL RISK FACTORS; EDUCATE THE PATIENT/CAREGIVER ON WAYS TO REDUCE FALL RISK FACTORS AND ESTABLISH HOME EXERCISE PROGRAM TO MINIMIZE FALL RISK. MAY TEACH THE PATIENT FLOOR RECOVERY WHEN CLINICALLY APPROPRIATE [code = AGENCY MAY PERFORM A RESUMPTION OF CARE VISIT FOLLOWING ANY HOSPITAL ADMISSION. PT TO EVALUATE, OBSERVE / ASSESS, AND MONITOR, INFANTRY SENIOR SERGEANT TO OBSERVE AND MONITOR, PROVIDE SKILLED THERAPEUTIC INTERVENTION, ACTIVITY, EDUCATION, AND TRAINING TO ADDRESS; PT/INFANTRY SENIOR SERGEANT TO PROVIDE GAIT TRAINING FOR IMPROVED MOBILITY AND /OR TO NORMALIZE GAIT PATTERN NEUROMUSCULAR RE-EDUCATION / BALANCE / POSTURAL CONTROL (PT) THERAPEUTIC EXERCISES AND ESTABLISHING A HOME EXERCISE PROGRAM (PT/INFANTRY SENIOR SERGEANT) SIT TO/FROM STAND TRANSFERS (PT/INFANTRY SENIOR SERGEANT) PT / INFANTRY SENIOR SERGEANT TO MONITOR AND EDUCATE ON OXYGEN SATURATION DURING ADLS/IADLS, NOTIFY PHYSICIAN AND/OR THE RN CLINICAL GIS SOFTWARE DEVELOPER FOR PHYSICIAN NOTIFICATION AND IF O2 SATS BELOW PHYSICIAN ORDERED PARAMETERS AFTER 10 MIN OF REST PT / INFANTRY SENIOR SERGEANT MAY EDUCATE ON PAIN MANAGEMENT CLINICALLY INDICATED, INCLUDING NON-PHARMACOLOGICAL PAIN REDUCTION TECHNIQUES AND USE OF CRYOTHERAPY OR HEAT UP TO 20 MIN AT A TIME FOR PAIN MANAGEMENT 3 TIMES PER DAY PT / INFANTRY SENIOR SERGEANT TO MONITOR FOR HYPO/HYPERGLYCEMIA AND CONDUCT ROUTINE FOOT INSPECTIONS. RECORD PATIENT REPORTED BLOOD SUGAR LEVELS AND NOTIFY PHYSICIAN AND/OR THE RN CLINICAL GIS SOFTWARE DEVELOPER FOR PHYSICIAN NOTIFICATION IF BLOOD SUGAR LEVELS ARE OUTSIDE ORDERED PARAMETERS. TEACH PATIENT/CAREGIVER ON DAILY FOOT INSPECTIONS PT / INFANTRY SENIOR SERGEANT TO EDUCATE ON HEART FAILURE SELF-MANAGEMENT PT/INFANTRY SENIOR SERGEANT TO IDENTIFY FALL RISK FACTORS; EDUCATE THE PATIENT/CAREGIVER ON WAYS TO REDUCE FALL RISK FACTORS AND ESTABLISH HOME EXERCISE PROGRAM TO MINIMIZE FALL RISK. MAY TEACH THE PATIENT FLOOR RECOVERY WHEN CLINICALLY APPROPRIATE] Future Scheduled Test [employer] FOR COMM[employer]ITY RESOURCE PLANNING. 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 OT TO EVALUATE, OBSERVE / ASSESS, AND MONITOR, JAVA J2EE LEAD TO OBSERVE AND MONITOR, PROVIDE SKILLED THERAPEUTIC INTERVENTION, ACTIVITY, EDUCATION, AND TRAINING TO ADDRESS; IMPROVEMENT OF ACTIVITY TOLERANCE, IADL TASKS, SELF CARE PERFORMANCE ACTIVITIES OF DAILY LIVING (OT/CHELO) LIGHT HOUSEKEEPING (OT/JAVA J2EE LEAD) BATH/SHOWER TRANSFER (OT/CHELO) POSTURAL CONTROL/BALANCE (OT/JAVA J2EE LEAD) ENERGY CONSERVATION/ACTIVITY DEMAND (OT/JAVA J2EE LEAD) OT TO ASSESS / CHELO TO MONITOR FOR HEART FAILURE EXACERBATION AND RECORD PATIENT REPORTED WEIGHT, AND NOTIFY THE PHYSICIAN AND/OR THE RN CLINICAL GIS SOFTWARE DEVELOPER FOR PHYSICIAN NOTIFICATION OF HF EXACERBATION (2LB WEIGHT GAIN IN 1 DAY, 5LBS IN A WEEK OR 5 LBS OVER BASELINE; INCREASED SOB, EDEMA, NEEDING MORE PILLOWS AT NIGHT, CRACKLES IN BASIS OF THE LUNGS OR PMI SHIFT). OT/CHELO TO MONITOR AND EDUCATE ON OXYGEN SATURATION DURING ADLS/IADLS, NOTIFY PHYSICIAN AND/OR THE RN CLINICAL GIS SOFTWARE DEVELOPER FOR PHYSICIAN NOTIFICATION AND IF O2 SATS BELOW 90% AFTER 10 MIN OF REST. OT/CHELO TO MONITOR PATIENT WITH STABLE DEPRESSION ON SIGNS AND SYMPTOMS OF WORSENING DEPRESSION AND AVAILABLE RESOURCES INCLUDING [facility] SUICIDE CRISIS LIFELINE. OT/JAVA J2EE LEAD MAY EDUCATE ON PAIN MANAGEMENT CLINICALLY INDICATED, INCLUDING NON-PHARMACOLOGICAL PAIN REDUCTION TECHNIQUES AND USE OF CRYOTHERAPY OR HEAT UP TO 20 MIN AT A TIME FOR PAIN MANAGEMENT OT / CHELO TO IDENTIFY FALL RISK FACTORS; EDUCATE THE PATIENT/CAREGIVER ON WAYS TO REDUCE FALL RISK FACTORS AND ESTABLISH HOME EXERCISE PROGRAM TO MINIMIZE FALL RISK. MAY TEACH THE PATIENT FLOOR RECOVERY WHEN CLINICALLY APPROPRIATE. [code = AGENCY MAY PERFORM A RESUMPTION OF CARE VISIT FOLLOWING ANY HOSPITAL ADMISSION. OT TO EVALUATE, OBSERVE / ASSESS, AND MONITOR, CHELO TO OBSERVE AND MONITOR, PROVIDE SKILLED THERAPEUTIC INTERVENTION, ACTIVITY, EDUCATION, AND TRAINING TO ADDRESS; IMPROVEMENT OF ACTIVITY TOLERANCE, IADL TASKS, SELF CARE PERFORMANCE ACTIVITIES OF DAILY LIVING (OT/CHELO) LIGHT HOUSEKEEPING (OT/CHELO) BATH/SHOWER TRANSFER (OT/CHELO) POSTURAL CONTROL/BALANCE (OT/CHELO) ENERGY CONSERVATION/ACTIVITY DEMAND (OT/CHELO) OT TO ASSESS / CHELO TO MONITOR FOR HEART FAILURE EXACERBATION AND RECORD PATIENT REPORTED WEIGHT, AND NOTIFY THE PHYSICIAN AND/OR THE RN CLINICAL GIS SOFTWARE DEVELOPER FOR PHYSICIAN NOTIFICATION OF HF EXACERBATION (2LB WEIGHT GAIN IN 1 DAY, 5LBS IN A WEEK OR 5 LBS OVER BASELINE; INCREASED SOB, EDEMA, NEEDING MORE PILLOWS AT NIGHT, CRACKLES IN BASIS OF THE LUNGS OR PMI SHIFT). OT/JAVA J2EE LEAD TO MONITOR AND EDUCATE ON OXYGEN SATURATION DURING ADLS/IADLS, NOTIFY PHYSICIAN AND/OR THE RN CLINICAL GIS SOFTWARE DEVELOPER FOR PHYSICIAN NOTIFICATION AND IF O2 SATS BELOW 90% AFTER 10 MIN OF REST. OT/JAVA J2EE LEAD TO MONITOR PATIENT WITH STABLE DEPRESSION ON SIGNS AND SYMPTOMS OF WORSENING DEPRESSION AND AVAILABLE RESOURCES INCLUDING [facility] SUICIDE CRISIS LIFELINE. OT/CHELO MAY EDUCATE ON PAIN MANAGEMENT CLINICALLY INDICATED, INCLUDING NON-PHARMACOLOGICAL PAIN REDUCTION TECHNIQUES AND USE OF CRYOTHERAPY OR HEAT UP TO 20 MIN AT A TIME FOR PAIN MANAGEMENT OT / CHELO TO IDENTIFY FALL RISK FACTORS; EDUCATE THE [...] End Date/Time Encounter Type Admission Type Attending [facility] Care Department Encounter ID Discharge Date Discharge Status Discharge Condition Discharge Reason Percent Goals Met 2025-03-11 00:00:00 2025-05-06 00:00:00 Outpatient ANNY GARCIA [facility] [id number] 2025-05-06 00:00:00 DISCHARGE TO HOME OR SELF CARE INDEPENDEN T IN THE HOME HH - GOALS MET [phone]
[2025-06-01 16:33] VITALS: BP 109/63; PULSE 76; RESP 24; TEMP 37; O2SAT 96; BMI 32.9
--- OUTSIDE RECORDS SUMMARY | 2025-06-01 16:43 | XMS_ITS | Clinical Summary ---
Author Organization [facility] Address [address] [place] [address] Care Team Providers Care Nib Inspector Name Role Phone Ilir Jeffers MD Primary Care Provider + [phone] Allergies Active Allergy Reactions Criticality Noted Date [...] 1 TABLET DAILY. 1 Active HYDROcodone-rebecca taminophen ([place]) 7.5-325 MG tablet 1 Active losartan (Cozaar) [...] home oral regimen ACHS finger sticks SSI A-fib 09/05/2023 Overview (09/05/2023): May resume home xarelto Sebaceous cyst 09/05/2023 Overview (09/05/2023): Incidental finding [...] Problem Noted Date Diagnosed Date Resolved Date Fall 09/05/2023 04/19/2025 Overview (09/05/2023): Admit to SGT Tertiary 09/06 Acute kidney injury superimposed on CKD 09/05/2023 04/19/2025 Overview (09/05/2023): Cr. 1.22 on arrival, baseline 0.8 CTM Microalbuminuria 10/11/2020 09/05/2023 Immunizations Immunization Administration Dates [...] A1C 1955 [facility]-Medicare Annual Wellness (AWV) 1955 [facility]-/Child/Adol SDOH Screenings 1953 Diabetes: Dental Exam 1963 [facility]- SDOH Screenings 1971 [facility]-Adult SDOH Screenings 1971 CT Colonography 1998 Colonoscopy 1998 FIT-DNA 1998 FIT 1998 FOBT 1998 Sigmoidoscopy 1998 [facility]-Colorectal Cancer Screening 1998 [facility]-Breast Cancer Screening 2003 [facility]-Zoster Vaccines (1 of 2) 2003 [id number] Vaccine (3 - season) 2025 04/11/2021, 03/14/2021 [facility]-Influenza Vaccine (#1) 03/30/202510/16, 05/20/2018, [...] Antibody Negative Negative 09/05/2023 3:48 AM EST [facility] Blood Venous blood specimen / Unknown Venipuncture / Unknown 09/05/2023 2:58 AM EST 09/05/2023 3:06 AM EST us Junior Thomson MD LAB BLOOD ORDERABLES Final Result Performing Organization Address City/State/[facility] Co de Phone Number [facility]ALTH[facility]ARE [facility] [address] [place] [id number] from Last 3 Months or Most Recently Relevant to Health Maintenance [place] [phone] MEDICARE Advance Directives * Full Code (Latest Code Status on File) Date Activated Date Inactivated Comments 09/05/2023 5:32 AM 09/05/2023 5:40 PM Question Answer Comments Patient has decision-making capacity? Yes Care Teams Nib Inspector Relationship Specialty Start Date End Date Ilir Jeffers MD [address] [place] [address] PCP - General 12/10/20
--- OUTSIDE RECORDS SUMMARY | 2025-06-01 16:43 | XMS_ITS | Clinical Summary ---
Author Organization [facility] Address [address] [place] [address] Phone Care Team Providers Care Petroleum Inspector Supervisor Name Role Phone Unavailable Primary Care Provider Unavailabl e Allergies Active Allergy Reactions Criticality Noted Date Comments Iodine Nausea And Vomiting 08/18/2009 Penicillins Swelling High 08/18/2009 Sulfa (Sulfonamide Antibiotics) Hives 03/30 Medications Nebulizer Accessories (A.I.R.S NEBULIZER REPLACEMENT) Kit Need New nebulizer 1 Kit 0 012 Active albuterol (VENTOLIN HFA) 90 mcg/actuation inhalerIndications:Punchboard Inserter gisselle airway obstruction, not elsewhere classified Inhale [...] 04/03/12 soapp 04/03/12 = 7 cathy 10/31/12 05/02/13([id number]) UDS 05/02/13 Problem Noted Date Diagnosed Date [...] 1998 Low Dose Lung Cancer Screening 2003 RSV or 60+ (1 - Risk 50-74 years 1-dose series) 2003 Zoster (1 of 2) 2003 Pneumococcal Vaccine 50+ (2 of 2 - PCV) 06/09/2012 06/09/2011 Bone Density Screening 2018 Breast Cancer Screening 04/02/2019 04/02/20 17, 03/07/2017, 06/20/2011, Additional history exists COVID-19 Vaccine ( season) 2025 Influenza Vaccine (#1) 2025 3, 07/04/2012, 06/09/2011, [...] MD BMI (Calculated) < 30 General 32.4(04/12/20 17 1:56 PM EDT) No Carmelita Cardoso RMA [...] Ab Negative Negative [facility] Blood specimen (specimen) 04/12/2017 3:13 PM EDT 04/12/2017 7:28 PM EDT us Jahaira Purdy APRN HEMATOLOGY ORDERABLES Final Re sult [facility] [address] [place] [address] from Last 3 Months or Most Recently Relevant to Health Maintenance Insurance [employer] [address]
--- OUTSIDE RECORDS SUMMARY | 2025-06-01 16:43 | XMS_ITS ---
Author Organization Unknown [facility] Start Date Provider Encounter for Check-up [id number] SHANAE Reynoso
--- NOTE | 2025-06-01 16:50 | ECG_ITS ---
APPROVED REPORT Exam: Resting ECG HR:69 bpm ECG Measurements Heart Rate 69 AXES VA 164 P 113 QRSd 82 QRS 58 QT 378 T 65 QTc 397 Conclusion ELECTRONIC ATRIAL PACEMAKER ABNORMAL RHYTHM ECG UNCONFIRMED REPORT Atrial pacemaker. Ventricular rate of [address] elevation or depression Electronically signed by : JORGE HERNANDEZ, 06/04/2025 21:04:34
--- NOTE | 2025-06-01 16:51 | XR_ITS ---
PROCEDURE INFORMATION: Exam: XR Chest Exam date and time: 06/01/2025 4:59 PM Age: 69 years old Clinical indication: Shortness of breath TECHNIQUE: Imaging protocol: Radiologic exam of the chest. Views: 1 view. COMPARISON: CT CHEST WO CON 03/05/2025 9:35 PM FINDINGS: Lungs: Unremarkable. No consolidation. Pleural spaces: Unremarkable. No pleural effusion. No pneumothorax. Heart/Mediastinum: Unremarkable. No cardiomegaly. Bones/joints: Unremarkable. IMPRESSION: No acute findings.
--- NOTE | 2025-06-01 16:54 | [facility].EDCP ---
Discharge Plan Disposition Patient Disposition: Home, Self-Care Prescriptions Prescriptions: New doxycycline hyclate 100 mg capsule 100 mg PO BID 7 Days Qty: 14 0RF lidocaine 5 % adhesive patch,medicated 1 patch topical DAILY Qty: 15 0RF Rx Instructions: leave on most painful area for up to 12 hrs No Action naproxen 500 mg tablet 500 mg PO BID Qty: 30 0RF diclofenac sodium 1 % gel 2 g topical QID Qty: 50 1RF Rx Instructions: apply to single elbow, wrist or hand; for hand includes palm/fingers/back of hand albuterol sulfate 90 mcg/actuation HFA aerosol inhaler 2 puff inhalation . Patient Comments: INHALE TWO PUFFS BY MOUTH EVERY 6 HOURS NEEDED SHORTNESS OF BREATH azithromycin 250 mg tablet 250 mg PO QMWF Qty: 45 2RF nystatin 100,000 unit/gram cream 1 applic topical DAILY Qty: 30 0RF nystatin 100,000 unit/gram powder 1 applic topical BID Qty: 30 0RF methocarbamol 500 mg tablet 500 mg PO TID Qty: 42 0RF (DME) Diabetic Shoes (DME) Misc See Rx Instructions .ROUTE .MEDSUPPLY Qty: 1 0RF Rx Instructions: [facility] meloxicam 7.5 mg tablet 7.5 mg PO DAILY Qty: 30 2RF Ensure Complete 0.1 gram- 1.18 kcal/mL liquid 1 ea PO DAILY Qty: 1184 0RF fluoxetine 20 mg capsule 20 mg PO BID 90 Days Qty: 180 3RF buspirone 10 mg tablet 10 mg PO BID 90 Days Qty: 180 3RF metformin 500 mg tablet 1,000 mg PO BID Qty: 120 5RF bisoprolol fumarate 10 mg tablet 10 mg PO BID 90 Days Qty: 180 3RF ropinirole 0.25 mg tablet 0.5 mg PO HS Qty: 60 5RF Rx Instructions: administer 1-3 hours before bedtime pantoprazole 40 mg tablet,delayed release (DR/EC) 40 mg PO DAILY Qty: 90 0RF Jardiance 25 mg tablet See Rx Instructions .ROUTE .COMPLEX Qty: 90 0RF Dose Instruction: TAKE ONE TABLET BY MOUTH EVERY DAY Rx Instructions: TAKE ONE TABLET BY MOUTH EVERY DAY budesonide 0.5 mg/2 mL suspension for nebulization 0.5 mg inhalation Q12H Qty: 180 3RF ipratropium-albuterol 0.5 mg-3 mg(2.5 mg base)/3 mL solution for nebulization 3 ml inhalation QID PRN (Reason: shortness of breath or wheezing) 90 Days Qty: 270 2RF pregabalin 75 mg capsule 75 mg PO HS Qty: 30 0RF baclofen 10 mg tablet 10 mg PO TID Qty: 90 0RF magnesium oxide 400 mg (241.3 mg magnesium) tablet 400 mg PO BID Qty: 60 1RF montelukast 10 mg tablet 10 mg PO PM Qty: 30 2RF furosemide 40 mg tablet 40 mg PO DAILY atorvastatin 80 mg tablet 80 mg PO HS diltiazem HCl 240 mg capsule,extended release 24hr 240 mg PO DAILY lisinopril 2.5 mg tablet 2.5 mg PO HS Xarelto 20 mg tablet 20 mg PO QPMWITHMEAL Rx Instructions: TAKE ONE TABLET BY MOUTH EVERY DAY with evening meal spironolactone 25 mg tablet 25 mg PO DAILY Rx Instructions: TAKE ONE TABLET BY MOUTH EVERY DAY fluticasone propionate 50 mcg/actuation spray,suspension 1 spray intranasal DAILY Rx Instructions: instill 1 SPRAY IN EACH NOSTRIL EVERY DAY insulin glargine [Basaglar KwikPen U-100 Insulin] 100 unit/mL (3 mL) insulin pen 35 unit SQ BID Rx Instructions: INJECT 35 units SUBCUTANEOUSLY TWICE DAILY Referrals Follow up/Referrals: Kathy Gunn APRN [Primary Care Provider, Medical] - See instructions Activity Restrictions/Add. Instructions Additional Instructions/Restrictions: You are being prescribed doxycycline, an antibiotic, for your COPD exacerbation. Take this as prescribed. You are also being prescribed lidocaine patches for your hip and leg pain. In addition to this you can take Tylenol and ibuprofen. I do encourage you to follow-up with Dr. Hawkins for continued management of your pain. If you develop any new or worsening symptoms, or if you become concerned for your health for any reason, return to the emergency department for evaluation Clinical Impressions Clinical Impression: COPD exacerbation, Left leg pain Print Language Print Language: Iranian Discharge ED Provider: Messi Peguero HPI General Chief Complaint: Shortness of Breath/Dyspnea Stated Complaint: Pain in back, SOA Time Seen by Provider: 06/01/25 16:38 History of Present Illness HPI narrative: Yaritza Stallings is a 69F with a history of COPD on 4 L nasal cannula at baseline, poorly controlled type 2 diabetes, hyperlipidemia, cardiac pacemaker, obesity who presents to the emergency department for shortness of breath and back pain. Patient states that she was seen by Dr. Hawkins for back pain on the and states that she received an injection in her lower back and is continue to have back pain that shoots down her left leg ever since. She states that she is still ambulatory. She does report worsening shortness of breath as well with nonproductive cough. She wears 4 L nasal cannula at baseline and states that her oxygen gets low only when she walks or does not wear her oxygen. She denies any chest pain. She denies any fevers. She states that she is urinating frequently. She states that her A1c recently was 10 Related Data Home Medications ?Medication ?Instructions ?Recorded ?Confirmed atorvastatin 80 mg tablet 80 mg PO HS 12/23/24 05/28/25 diltiazem HCl 240 mg 240 mg PO DAILY 12/23/24 05/28/25 capsule,extended release 24 hr furosemide 40 mg tablet 40 mg PO DAILY 12/23/24 05/28/25 lisinopril 2.5 mg tablet 2.5 mg PO HS 12/23/24 05/28/25 rivaroxaban 20 mg tablet (Xarelto) 20 mg PO QPMWITHMEAL 12/23/24 05/28/25 fluticasone propionate 50 1 spray intranasal DAILY 03/06/25 05/28/25 mcg/actuation nasal spray,suspension insulin glargine 100 unit/mL (3 35 unit SQ BID 03/06/25 05/28/25 mL) subcutaneous pen (Basaglar KwikPen U-100 Insulin) spironolactone 25 mg tablet 25 mg PO DAILY 03/06/25 05/28/25 albuterol sulfate 90 mcg/actuation 2 puff inhalation . 04/09/25 05/28/25 aerosol inhaler Previous Rx's ?Medication ?Instructions ?Recorded buspirone 10 mg tablet 10 mg PO BID 90 days #180 tabs 08/07/24 fluoxetine 20 mg capsule 20 mg PO BID 90 days #180 caps 08/07/24 bisoprolol fumarate 10 mg tablet 10 mg PO BID 90 days #180 tabs 01/29/25 metformin 500 mg tablet 1,000 mg (2 x 500 mg) PO BID #120 01/29/25 tabs ropinirole 0.25 mg tablet 0.5 mg (2 x 0.25 mg) PO HS #60 tabs 03/02/25 naproxen 500 mg tablet 500 mg PO BID #30 tabs 03/04/25 Held on 04/01/25. Instructions: Home Medication placed on hold at Doctor's office diclofenac sodium 1 % topical gel 2 g topical QID #50 grams 03/05/25 nystatin 100,000 unit/gram topical 1 applic topical DAILY alternative 04/01/25 cream to powder #30 grams nystatin 100,000 unit/gram topical 1 applic topical BID #30 grams 04/01/25 powder azithromycin 250 mg tablet 250 mg PO QMWF #45 tabs 04/09/25 empagliflozin 25 mg tablet See Rx Instructions .Route 04/29/25 (Jardiance) .COMPLEX #90 tabs pantoprazole 40 mg tablet,delayed 40 mg PO DAILY #90 tabs 04/29/25 release Diabetic Shoes (DME) #1 ea 05/12/25 budesonide 0.5 mg/2 mL suspension 0.5 mg (2 mL) inhalation Q12H #180 05/18/25 for nebulization mL ipratropium 0.5 mg-albuterol 3 mg 3 ml inhalation QID PRN shortness 05/18/25 (2.5 mg base)/3 mL nebulization of breath or wheezing 90 days #270 soln mL baclofen 10 mg tablet 10 mg PO TID #90 tabs 05/25/25 pregabalin 75 mg capsule 75 mg PO HS #30 caps 05/25/25 food supplemt, lactose-reduced 0.1 1 ea PO DAILY #1,184 mL 05/26/25 gram-1.18 kcal/mL oral liquid (Ensure Complete) meloxicam 7.5 mg tablet 7.5 mg PO DAILY #30 tabs 05/26/25 magnesium oxide 400 mg (241.3 mg 400 mg PO BID #60 tabs 05/27/25 magnesium) tablet montelukast 10 mg tablet 10 mg PO PM #30 tabs 05/27/25 methocarbamol 500 mg tablet 500 mg PO TID #42 tabs 05/28/25 doxycycline hyclate 100 mg capsule 100 mg PO BID 7 days #14 caps 06/01/25 lidocaine 5 % topical patch 1 patch topical DAILY #15 ea 06/01/25 Allergies Allergy/AdvReac Type Severity Reaction Status Date / Time verapamil Allergy Severe Rash Verified 05/28/25 14:29 Iodine and Iodide Containing Allergy Mild Rash Verified 05/28/25 14:29 Produc Penicillins (PENICILLINS) Allergy Unknown I-RASH Verified 05/28/25 14:29 Sulfa (Sulfonamide Allergy Unknown NA-NAUSEA/V Verified 05/28/25 14:29 Antibiotics) (SULFA OMITING (SULFONAMIDE ANTIBIOTICS)) [facility] Disclaimer: The information contained in this section may have been updated after the patient was seen, as this information can be updated by other users. Medical History Pancreatitis Hyponatremia Right lower lobe pneumonia Hyperglycemia Respiratory failure Hypoxia Vaginal cyst COPD (chronic obstructive pulmonary disease) with acute bronchitis Acute on chronic respiratory failure with hypoxia and hypercapnia Chronic, continuous use of opioids Overuse of medication Pneumonia Pre-operative cardiovascular examination Pacemaker lead malfunction Pacemaker at end of battery life Vulvar cyst Candidal intertrigo Bronchiectasis, non-tuberculous COPD (chronic obstructive pulmonary disease) Acute exacerbation of chronic obstructive pulmonary disease Stopped smoking with greater than 30 pack year history History of asthma Family history of asthma Allergic rhinitis, unspecified History of 2019 novel coronavirus disease (COVID-19) COPD (chronic obstructive pulmonary disease) Acute respiratory failure with hypoxia COPD exacerbation Encounter for screening for malignant neoplasm of lung in current smoker with 30 pack year history or greater Stopped smoking with greater than 30 pack year history History of asthma Family history of asthma Allergic rhinitis History of 2019 novel coronavirus disease (COVID-19) COPD exacerbation Hyperlipemia PAF (paroxysmal atrial fibrillation) COPD (chronic obstructive pulmonary disease) On statin therapy Diabetes (~06/2020) Cardiac pacemaker in situ Fatigue HHD (hypertensive heart disease) Surgical History History of tonsillectomy History of cholecystectomy Hx of tonsillectomy History of arthroplasty of right knee Hx of cholecystectomy Family History Other Cancer Coronary artery disease Diabetes Hyperlipidemia Hypertension Social History Smoking Status: Current every day smoker tobacco type: cigarettes packs per day: 1 smoking status stop date: 09/12/2022 second hand exposure: Yes alcohol intake: never substance use type: denies use current occupational status: disabled Travel in the last 8 weeks?: None household members: none housing: house marital status: number of children: 0 current occupational exposures/hazards: No caffeine: Yes Have you lived/traveled outside [place] in past 30 days?: No Contact w/someone who lives/traveled outside US past 30 days?: No Exposure to someone with infectious disease in past 14 days?: No Do you have a fever (greater than 100.4 F or 38 C)?: No Have you tested positive for COVID-19?: No Exposed to someone with COVID-19 in past 14 days?: No Do you have a sore throat?: No Do you have a cough?: No Do you have any weakness?: No Do you have any diarrhea?: No Are you experiencing any unusual bleeding?: No Do you have any muscle aches/pain?: No Do you have any abdominal pain?: No Are you experiencing loss of taste or smell?: No Other Medical History Have you received the Flu Vaccine for this season: No Have you received the Pneumonia Vaccine: Yes ROS Obtained: Yes Systems reviewed as appropriate & no additional complaints except as documented Physical Exam General General appearance: alert Comment: Increased work with breathing Head Head exam: atraumatic Eye Eye exam: Present normal appearance ENT ENT exam: Present normal external ear exam Neck Neck exam: Present full ROM Chest Chest inspection: Present symmetric chest wall rise Respiratory Respiratory exam: Present respiratory distress and wheezes; Absent normal lung sounds bilaterally or stridor Cardiovascular Cardiovascular exam: Present regular rate and normal rhythm Abdominal Exam Abdominal exam: Present soft; Absent tenderness or guarding Extremities Exam Extremities exam: Present normal inspection Back Exam Back exam: Present normal inspection, paraspinal tenderness (left sacroiliac area), straight leg raise (R) and straight leg raise (L); Absent vertebral tenderness Neurological Exam Neurological exam: Present alert and oriented X3 Psychiatric Psychiatric exam: Present normal affect Skin Skin exam: Present warm and dry HEART Score HEART Score HEART Score assessment performed?: Yes History (anamnesis): Slightly suspicious ECG: Normal Age: >65 years Risk factors: 3 or more risk factors Troponin: </= normal limit HEART Score: 4 Critical Care Critical Care Time Critical Care Time: No Medical Decision Making Anibal Inquiry Pt receiving controlled substance: No Vital Signs Vital Signs: 06/01/25 16:33 06/01/25 19:00 06/01/25 19:30 Temperature 98.6 F Temperature Source Oral Pulse Rate 70 70 Pulse Rate [Left] 76 Respiratory Rate 24 26 H 21 Blood Pressure 138/59 L 141/63 H Blood Pressure [Right Arm] 109/63 L Blood Pressure Mean Blood Pressure Mean [Right Arm] 78 Blood Pressure Source [Right Arm] Automatic Cuff Blood Pressure Position Blood Pressure Position [Right Arm] Sitting 02 Sat by Pulse Oximetry 96 93 L 95 Oxygen Delivery Method Nasal Cannula Oxygen Flow Rate (LPM) 4 06/01/25 20:00 06/01/25 21:13 Temperature 98.6 F Temperature Source Oral Pulse Rate 70 71 Pulse Rate [Left] Respiratory Rate 18 18 Blood Pressure 123/65 124/88 Blood Pressure [Right Arm] Blood Pressure Mean 91 Blood Pressure Mean [Right Arm] Blood Pressure Source [Right Arm] Blood Pressure Position Sitting Blood Pressure Position [Right Arm] 02 Sat by Pulse Oximetry 92 L Oxygen Delivery Method Nasal Cannula Oxygen Flow Rate (LPM) 4 Lab Data Labs: Lab Results 06/01/25 16:50: WBC 13.4 H, RBC 4.51, Hgb 10.8 L, Hct 37.1, MCV 82.3, MCH 23.9 L, MCHC 29.1 L, RDW 15.9, Plt Count 253, MPV 11.8 H, Neut % (Auto) 65.5, Lymph % (Auto) 20.1, [place] % (Auto) 9.1, Eos % (Auto) 4.0, Baso % (Auto) 0.9, Neut # (Auto) 8.7 H, Lymph # (Auto) 2.7, [place] # (Auto) 1.2 H, Eos # (Auto) 0.5 H, Baso # (Auto) 0.1, VBG pH 7.35, VBG pCO2 45.7, VBG pO2 51.8 H, VBG HCO3 24.5, VBG Total CO2 25.9, VBG O2 Saturation 86.1 H, VBG Base Excess -1.2, VBG Lactic Acid 3.4 H, Sodium 135 L, Potassium 4.4, Chloride 102, Carbon Dioxide 25, Anion Gap 12.4, BUN 26 H, Creatinine 1.20 H, Estimated Creat Clear 69, Estimated GFR 44 L, Est GFR ( Amer) 54 L, Glucose 161 H, Calcium 9.7, Total Bilirubin 0.4, AST 30, ALT 24, Alkaline Phosphatase 97, Troponin I < 0.01, NT-Pro-B Natriuret Pep 162 H, Total Protein 7.3, Albumin 4.4, Globulin 2.9, Albumin/Globulin Ratio 1.5 06/01/25 20:12: Urine Color Yellow, Urine Appearance Clear, Urine pH 6.0, Ur Specific [place] 1.020, Urine Protein Negative, Urine Glucose (UA) 3+, Urine Ketones Trace, Urine Blood Negative, Urine Nitrate Negative, Urine Bilirubin Negative, Urine Urobilinogen 0.2, Ur Leukocyte Esterase Negative 06/01/25 16:50 06/01/25 16:50 Response Orders (Tests/Meds): ED MEDICATIONS Discontinued Medications Generic Name Dose Route Start Last Admin Trade Name Freq PRN Reason Stop Dose Admin Acetaminophen 1,000 mg 06/01/25 20:11 06/01/25 20:15 Acetaminophen 500mg Tab PO 06/01/25 20:12 1,000 mg ONCE ONE Administration Albuterol/Ipratropium 9 ml 06/01/25 16:51 06/01/25 17:23 Ipratropium/Albuterol 3 Ml Neb IH 06/01/25 16:52 9 ml ONCE ONE Administration Magnesium Sulfate 2 gm in 50 mls @ 50 mls/hr 06/01/25 16:51 06/01/25 18:55 Magnesium Sulfate 2gm/50ml Premix IV 06/01/25 17:50 Infused ONCE ONE Infusion Lactated Ringer's 500 mls @ 999 mls/hr 06/01/25 17:22 06/01/25 19:46 Lactated Ringer's 500ml IV 06/01/25 17:52 Infused .Q31M ONE Infusion Lactated Ringer's 500 mls @ 999 mls/hr 06/01/25 18:54 06/01/25 20:26 Lactated Ringer's 500ml IV 06/01/25 19:24 Infused .Q31M ONE Infusion Ketorolac Tromethamine 15 mg 06/01/25 18:45 06/01/25 19:21 Ketorolac 15mg/Ml Vial IV 06/01/25 18:46 15 mg ONCE ONE Administration Lidocaine 1 each 06/01/25 20:11 06/01/25 20:15 Lidocaine 5% Transdermal Patch TD 06/01/25 20:12 1 each ONCE ONE Administration ORDERS Category Date Time Status CXR --portable [XR chest portable] Stat Exams 06/01/25 16:51 Completed BNP [NT Pro Brain Natriuretic Pep.] Stat Lab 06/01/25 16:50 Completed CBC w/Auto Diff [Complete Blood Count Auto Diff] Stat Lab 06/01/25 16:50 Completed CMP [Comprehensive Metabolic Panel] Stat Lab 06/01/25 16:50 Completed Troponin I Stat Lab 06/01/25 16:50 Completed UA [Urinalysis and Microscopic] Stat Lab 06/01/25 20:12 Completed VBG [Venous Blood Gas] Stat RT 06/01/25 16:50 Completed ECG Data Tracing #1: Attestation: I reviewed this ECG and interpreted as documented below: ECG Narrative: Atrial pacemaker. Sinus rhythm. No ST elevation or depression. QTc normal at 397 MDM Narrative Medical Decision Narrative: Yaritza Stallings is a 69F with a history of COPD on 4 L nasal cannula at baseline, poorly controlled type 2 diabetes, hyperlipidemia, cardiac pacemaker, obesity who presents to the emergency department for shortness of breath and back pain. Patient states that she was seen by Dr. Hawkins for back pain on the and states that she received an injection in her lower back and is continue to have back pain that shoots down her left leg ever since. She states that she is still ambulatory. She does report worsening shortness of breath as well with nonproductive cough. She wears 4 L nasal cannula at baseline and states that her oxygen gets low only when she walks or does not wear her oxygen. She denies any chest pain. She denies any fevers. She states that she is urinating frequently. She states that her A1c recently was 10. On arrival, patient blood pressure is 107/55, heart rate within normal limits, afebrile, oxygen saturation at 4 L nasal cannula at 95% SpO2. Physical exam, stated above, revealed female with increased work of breathing. She has wheezing bilaterally but is moving good air. No cardiac murmurs are appreciated. She has no significant peripheral edema. She has no midline lumbar spine tenderness and has tenderness over the left sacroiliac area. Has positive straight leg raise bilaterally. No swelling or erythema to the area. She has full strength and sensation to bilateral lower extremities. She has good pulses in the distal bilateral lower extremities. She has been ambulatory at home. Differential diagnosis includes, but is not limited to: COPD exacerbation, pneumonia, pneumothorax, ACS, pericarditis, sciatica, low concern for cauda equina syndrome as she does not have any red flag symptoms but will obtain bladder scan. Will obtain urine sample to rule out urinary tract patient given her urinary frequency. Workup in the emergency department included: Chest x-ray, VBG, CBC with differential, CMP, troponin, BNP, EKG. Patient was treated with 2 g IV magnesium sulfate as well as continuous DuoNeb. Patient reports very uncontrolled diabetes at this time with recent steroid use. Will defer steroid treatment at this time due to risk for significant hyperglycemia. EKG interpreted by me personally. No evidence of ischemia. See interpretation above Chest x-ray interpreted by me personally. No focal consolidation, no pneumothorax, no widened mediastinum, no enlargement of the cardiac silhouette. Unremarkable chest x-ray. See radiology report for details. Chart review shows that patient had a lumbar epidural steroid injection L5-S1 on 05/12/[address] Hawkins and was evaluated on the for pain that she is describing today and was put on muscle relaxers. Patient states that she is not able to provide a urine sample but bladder scan shows less than 50 mL. Will give additional 500 cc fluid bolus. Patient was able to ambulate to the restroom without difficulty And provided a urine sample. Patient's workup shows a leukocytosis of 13.4 without neutrophilia. Mildly low hemoglobin of 10.8, hematocrit of 37.1. Platelets within normal limits. VBG without acidosis or hypercarbia. Lactate mildly elevated at 3.4. Patient receiving IV fluids. Mild hyponatremia at 135. Potassium 4.4. Baseline creatinine is around 1.1 and today patient's creatinine is very mildly elevated at 1.2 with BUN of 26. Likely prerenal. Glucose normal at 161. Liver enzymes and bilirubin within normal limits. Troponin less than 0.01. NT proBNP very mildly elevated at 162. Urinalysis with 3+ glucose but no evidence of infection or blood. On reassessment, patient remains in stable condition. Her work of breathing has improved and she has remained on her baseline 4 L nasal cannula she was then discharged from the emergency department in stable condition.. Given her COPD exacerbation, will discharge her with prescription for doxycycline. Encouraged her to follow-up with Dr. Hawkins for her leg and hip pain but will prescribe lidocaine patches for her to go home with. Return precautions were given. All questions were answered. She demonstrated understanding and was agreeable with this plan.
[2025-06-01 16:59] LABS: Hematocrit 37.1 % (37.0-47.0); Hemoglobin 10.8 g/dL (12.2-16.2); Immature Granulocytes % 0.4 %; Mean Corpuscular HGB Conc 29.1 g/dL (31.8-35.4); Mean Corpuscular Hemoglobin 23.9 pg (27.0-31.2); Mean Corpuscular Volume 82.3 fl (81-99); Nucleated Red Blood Cells % 0 %; Platelet Count 253 K/mm3 (142-424); Red Blood Count 4.51 M/mm3 (4.20-5.40); Red Cell Distribution Width-SD 47.8 fL; White Blood Count 13.4 K/mm3 (4.8-10.8)
[2025-06-01 17:01] LABS: VBG HCO3 24.5 mmol/L (23-30); VBG PCO2 45.7 mmol/L (35-51); VBG PH 7.35 mmol/L (7.31-7.41); VBG PO2 51.8 mmol/L (28-40)
[2025-06-01 17:02] LABS: Lactate Venous 3.4 mmol/L (0.4-2.0)
[2025-06-01 17:14] LABS: Alanine Aminotransferase 24 U/L (12-78); Albumin Level 4.4 g/dl (3.5-5.0); Albumin/Globulin Ratio 1.5 (1.1-1.8); Alkaline Phosphatase 97 U/L (38-126); Anion Gap 12.4 mEq/L (5-15); Aspartate Amino Transferase 30 U/L (14-36); Bilirubin,Total 0.4 mg/dl (0.2-1.3); Blood Urea Nitrogen 26 mg/dl (7-17); Calcium 9.7 mg/dl (8.4-10.2); Carbon Dioxide 25 mmol/L (22.0-30.0); Chloride 102 mmol/L (98-107); Creatinine,Serum 1.20 mg/dl (0.52-1.04); Estimated Glomerular Filt Rate 44 ml/min (>60); GFR (African American) 54 ML/MIN (>60); Globulin 2.9 g/dL (1.3-3.2); Glucose 161 mg/dl (74-100); Potassium 4.4 mmoL/L (3.5-5.1); Sodium 135 mmol/L (136-145); Total Protein,Serum 7.3 g/dl (6.3-8.2)
[2025-06-01 17:19] LABS: Creatinine Clearance Estimated 69 mL/min (50-200)
[2025-06-01] MEDS: MAGNESIUM SULFATE IN WATER 2 GM/50 ML PIGGYBACK IV (17:22)
[2025-06-01] MEDS: IPRATROPIUM/ALBUTEROL 3 ML NEB 9 ML IH (17:23)
[2025-06-01 17:26] LABS: NT Pro Brain Natriuretic Pep. 162 pg/mL (0-125)
[2025-06-01 17:27] LABS: Troponin I < 0.01 ng/ml (0.00-0.034)
[2025-06-01] MEDS: RINGERS SOLUTION,LACTATED 500 ML 999 ML IV ×2 (18:05→19:21)
[2025-06-01 19:00] VITALS: BP 138/59; PULSE 70; RESP 26; O2SAT 93
[2025-06-01] MEDS: KETOROLAC 15MG/ML VIAL 15 MG IV (19:21)
[2025-06-01 19:30] VITALS: BP 141/63; PULSE 70; RESP 21; O2SAT 95
--- NOTE | 2025-06-01 19:35 | PC.NURSE ---
bladder scan per dayshift RN. Amount given to this RN per Dr Peguero
[2025-06-01 20:00] VITALS: BP 123/65; PULSE 70; RESP 18; O2SAT 92
[2025-06-01 20:14] LABS: Microscopic, Urine URINE MICROSCOPIC (MICROSCOPIC)
[2025-06-01] MEDS: LIDOCAINE 5% TRANSDERMAL PATCH 1 EACH TD (20:15)
[2025-06-01] MEDS: ACETAMINOPHEN 500MG TAB 1000 MG PO (20:15)
[2025-06-01 20:25] LABS: Bilirubin,Urine Negative (Negative); Color,Urine YELLOW (Yellow); Glucose,Urine (UA) 3+ (Negative); Ketones,Urine TRACE (Negative); Leukocyte Esterase,Urine Negative (Negative); PH,Urine 6.0 (5.0-8.5); Protein,Urine Negative (Negative); Specific Gravity, Urine 1.020 (1.005-1.030); Urobilinogen,Urine 0.2 EU/dl (0.2)
[2025-06-01 21:02] LABS: Reflex Lactic Add Lactic Reflex
[2025-06-01 21:13] VITALS: BP 124/88; PULSE 71; RESP 18; TEMP 37; O2SAT 95
== END 2025-06-01 21:18 | disposition home or self-care (01) ==
PROVIDERS: Emergency Provider Student in an Organized Health Care Education/Training Program; PCP Nurse Practitioner Family
DX: J44.1 Chronic obstructive pulmonary disease with (acute) exacerbation (principal); M79.605 Pain in left leg; R74.02 Elevation of levels of lactic acid dehydrogenase [LDH]; F17.210 Nicotine dependence, cigarettes, uncomplicated; E11.9 Type 2 diabetes mellitus without complications; E78.5 Hyperlipidemia, unspecified; Z99.81 Dependence on supplemental oxygen; Z86.79 Personal history of other diseases of the circulatory system; Z95.0 Presence of cardiac pacemaker; Z79.4 Long term (current) use of insulin
CPT/HCPCS: 51798; 71045; 80053; 81001; 82803; 83880; 84484; 85025; 93005; 96365; 96375; 99285; J1885; J3475; J7120

== ENCOUNTER 2025-06-20 02:13 | Emergency (ER) | payer MEDICARE, MEDICAID, SELFPAY ==
--- OUTSIDE RECORDS SUMMARY | 2025-05-05 19:00 | XMS_ITS | Clinical Summary ---
Author Organization Unknown Care Team Providers Care Film Producer Name Role Phone MARIEL CHILDCARE TEACHER, DORENE Unavailable Unavailable HAYDER RN, ANNY Unavailable Unavailable GRICEL PT, ARNOL Unavailable Unavailable KARINA BRUSH LOADER AND HANDLE ATTACHER, BRIANNA Unavailable Unavailable JOE OT, JOSE Unavailable Unavailable CINDI THOMPSON, ELAN Unavailable Unavailable Payers Payer Name Policy Type Policy Number Effective Date Expira tion Date MEDICARE.[place] [id number] Problems Condition Name Condition Details Condition Category Status Onset Date Resolution Date Last Treatment Date Treating Clinician Comments CHRONIC OBSTRUCTIVE PULMONARY DISEASE W (ACUTE) EXACERBATION Active 03-11 00:00: 00 ACUTE AND CHRONIC RESPIRATORY FAILURE WITH HYPOXIA Active 03-11 00:00: 00 HYPERTENSIVE HEART DISEASE WITH HEART FAILURE Active 03-11 00:00: 00 CHRONIC DIASTOLIC (CONGESTIVE) HEART FAILURE Active 03-11 00:00: 00 TYPE 2 DIABETES MELLITUS WITH DIABETIC NEUROPATHY, UNSP Active 03-11 00:00: 00 PAROXYSMAL ATRIAL FIBRILLATION Active 03-11 00:00: 00 CALCULUS OF KIDNEY Active 03-11 00:00: 00 LUMBAGO WITH SCIATICA, RIGHT SIDE Active 03-11 00:00: 00 LUMBAGO WITH SCIATICA, LEFT SIDE Active 03-11 00:00: 00 OTHER CHRONIC PAIN Active 03-11 00:00: 00 RADICULOPATH Y, SITE UNSPECIFIED Active 03-11 00:00: 00 ACUTE PANCREATITIS WITHOUT NECROSIS OR INFECTION, UNSP Active 03-11 00:00: 00 DEPRESSION, UNSPECIFIED Active 03-11 00:00: 00 ANXIETY DISORDER, UNSPECIFIED Active 03-11 00:00: 00 NICOTINE DEPENDENCE, CIGARETTES, UNCOMPLICATE D Active 03-11 00:00: 00 Encounter for sepsis aftercare Active 03-11 00:00: 00 PERSONAL HISTORY OF URINARY (TRACT) INFECTIONS Active 02-27 00:00: 00 DEPENDENCE ON SUPPLEMENTAL OXYGEN Active 03-11 00:00: 00 [facility] (CURRENT) USE OF ANTICOAGULAN TS Active 03-11 00:00: 00 [facility] (CURRENT) USE OF NON-STEROIDA L NON-INFLAM (NSAID) Active 03-11 00:00: 00 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 Active 03-11 00:00: 00 [facility] (CURRENT) USE OF INSULIN Active 03-11 00:00: 00 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 Propensity to adverse reactions Active 03-11 12:39: 01 Medications Ordered Medication Name Filled Medication Name Start Date Stop Date Current Medication? Ordering Clinician Indication Dosage Frequency Signature (SIG) Comments Components azithromyci n 250 mg tablet 12-24 00:00: 00 03-11 00:00 :00 No [id number] Per instruc tions Per instructio ns (route: oral) Med Classific ation: Anti-Infe ctive Agents tramadol 50 mg tablet 12-24 00:00: 00 03-11 00:00 :00 No [id number] Per instruc tions Per instructio ns (route: oral) Med Classific ation: Analgesic , Anti-infl ammatory or Antipyret ic Basaglar KwikPen U-100 Insulin 100 unit/mL (3 mL) subcutaneou s 12-18 00:00: 00 03-11 00:00 :00 No [id number] Per instruc tions SUBCUTANEO USLY TWICE DAILY Per instructio ns SUBCUTANEO USLY TWICE DAILY (route: subcutaneo us) Med Classific ation: Endocrine nicotine (polacrilex ) 4 mg gum 12-11 00:00: 00 Yes [id number] SMOKING CESSATION Per instruc tions EVERY 2 HOURS Per instructio ns EVERY 2 HOURS (route: buccal) Med Classific ation: Chemical Dependenc y, Agents to Treat BD Ultra-Fine Micro Pen Needle 32 gauge x 1/4 11-28 00:00: 00 Yes [id number] DIABETES Per instruc tions DIRECTED DAILY Per instructio ns DIRECTED DAILY (route: miscellane ous) Med Classific ation: Medical Supplies and Durable Medical Equipment (DME) Easy Touch Test Strip 11-28 00:00: 00 Yes [id number] DIABETES Per instruc tions TO test blood glucose THREE TIMES DAILY DIRECTED Per instructio ns TO test blood glucose THREE TIMES DAILY DIRECTED (route: miscellane ous) Med Classific ation: Medical Supplies and Durable Medical Equipment (DME) magnesium oxide 400 mg (241.3 mg magnesium) tablet 11-28 00:00: 00 Yes [id number] SUPPLEMENT 1 tablet 2 TIMES DAILY 1 tablet 2 TIMES DAILY (route: oral) Med Classific ation: Electroly te Balance-N utritiona l Products ropinirole 0.25 mg tablet 11-28 00:00: 00 Yes [id number] RLS 2 tablet BEDTIME 2 tablet BEDTIME (route: oral) Med Classific ation: Central Nervous System Agents spironolact one 25 mg tablet 11-28 00:00: 00 Yes [id number] CHF 1 tablet DAILY 1 tablet DAILY (route: oral) Med Classific ation: Cardiovas cular Therapy Agents TRUEplus Lancets 33 gauge 11-28 00:00: 00 Yes [id number] DIABETES Per instruc tions TWICE DAILY DIRECTED Per instructio ns TWICE DAILY DIRECTED (route: miscellane ous) Med Classific ation: Medical Supplies and Durable Medical Equipment (DME) albuterol sulfate HFA 90 mcg/actuati on aerosol inhaler 11-27 00:00: 00 Yes [id number] SOB 2 puff EVERY 6 HOURS 2 puff EVERY 6 HOURS (route: inhalation ) Med Classific ation: Respirato ry Therapy Agents pregabalin 25 mg capsule 30 00:00: 00 03-11 00:00 :00 No [id number] Per instruc tions AT BEDTIME Per instructio ns AT BEDTIME (route: oral) Med Classific ation: Central Nervous System Agents prednisone 20 mg tablet 03-10 00:00: 00 03-15 23:59 :00 No [id number] PNA 1 tablet 2 TIMES DAILY 1 tablet 2 TIMES DAILY (route: oral) Med Classific ation: Endocrine atorvastati n 80 mg tablet 03-10 00:00: 00 Yes [id number] CHOLESTEROL 1 tablet DAILY 1 tablet DAILY (route: oral) Med Classific ation: Cardiovas cular Therapy Agents bisoprolol fumarate 10 mg tablet 03-10 00:00: 00 Yes [id number] HTN 1 tablet 2 TIMES DAILY 1 tablet 2 TIMES DAILY (route: oral) Med Classific ation: Cardiovas cular Therapy Agents budesonide 0.5 mg/2 mL suspension for nebulizatio n 03-10 00:00: 00 Yes [id number] COPD 0.5 mg 2 TIMES DAILY 0.5 mg 2 TIMES DAILY (route: inhalation ) Med Classific ation: Respirato ry Therapy Agents buspirone 10 mg tablet 03-10 00:00: 00 Yes [id number] MOOD 1 tablet 2 TIMES DAILY 1 tablet 2 TIMES DAILY (route: oral) Med Classific ation: Central Nervous System Agents diclofenac 1 % topical gel 03-10 00:00: 00 Yes [id number] ARTHRITIS Per instruc tions 4 TIMES DAILY Per instructio ns 4 TIMES DAILY (route: topical) Med Classific ation: Dermatolo gical diltiazem CD 240 mg capsule,ext ended release 24 hr 03-10 00:00: 00 Yes [id number] HTN 1 capsule DAILY 1 capsule DAILY (route: oral) Med Classific ation: Cardiovas cular Therapy Agents fluoxetine 20 mg capsule 03-10 00:00: 00 Yes [id number] MOOD 1 capsule 2 TIMES DAILY 1 capsule 2 TIMES DAILY (route: oral) Med Classific ation: Central Nervous System Agents fluticasone propionate 50 mcg/actuati on nasal spray,suspe nsion - 00:00: 00 Yes [id number] ALLERGIES 1 spray DAILY 1 spray DAILY (route: nasal) Med Classific ation: Respirato ry Therapy Agents furosemide 40 mg tablet 03-10 00:00: 00 Yes [id number] FLUID 1 tablet DAILY 1 tablet DAILY (route: oral) Med Classific ation: Cardiovas cular Therapy Agents insulin glargine (U-100) 100 unit/mL (3 mL) subcutane s pen 03-10 00:00: 00 Yes [id number] DIABETES 35 In unit 2 TIMES DAILY 35 In unit 2 TIMES DAILY (route: subcutaneo us) Med Classific ation: Endocrine Jardiance 25 mg tablet 03-10 00:00: 00 Yes [id number] DIABETES 1 tablet DAILY 1 tablet DAILY (route: oral) Med Classific ation: Endocrine lisinopril 2.5 mg tablet 03-10 00:00: 00 Yes [id number] HTN 1 tablet BEDTIME 1 tablet BEDTIME (route: oral) Med Classific ation: Cardiovas cular Therapy Agents metformin 500 mg tablet 03-10 00:00: 00 Yes [id number] DIABETES 2 tablet 2 TIMES DAILY 2 tablet 2 TIMES DAILY (route: oral) Med Classific ation: Endocrine montelukast 10 mg tablet 03-10 00:00: 00 Yes [id number] ALLERGIES 1 tablet BEDTIME 1 tablet BEDTIME (route: oral) Med Classific ation: Respirato ry Therapy Agents naproxen 500 mg tablet 03-10 00:00: 00 Yes [id number] PAIN 1 tablet 2 TIMES DAILY 1 tablet 2 TIMES DAILY (route: oral) Med Classific ation: Analgesic , Anti-infl ammatory or Antipyret ic pantoprazol e 40 mg tablet,concepción yed release 03-10 00:00: 00 Yes [id number] GI 1 tablet DAILY 1 tablet DAILY (route: oral) Med Classific ation: Gastroint estinal Therapy Agents Xarelto 20 mg tablet 03-10 00:00: 00 Yes [id number] BLOOD THINNER 1 tablet BEDTIME 1 tablet BEDTIME (route: oral) Med Classific ation: Hematolog ical Agents Vital Signs Vital Name Observation Time Observation Value Commen ts Temperature 2025-05-06 11:50:00.000 98.6 [degF] Temperature 2025-05-04 14:30:00.000 97.9 [degF] Temperature 2025-04-14 14:56:00.000 97.6 [degF] Temperature 2025-04-09 15:03:00.000 97.5 [degF] Temperature 2025-04-08 15:14:00.000 97.4 [degF] Temperature 2025-04-02 11:57:00.000 97.6 [degF] Temperature 2025-03-31 13:03:00.000 98 [degF] Temperature 2025-03-24 14:13:00.000 98.5 [degF] Temperature 2025-03-24 13:14:00.000 97.8 [degF] Temperature 2025-03-24 12:04:00.000 97.8 [degF] Temperature 2025-03-17 16:08:00.000 98 [degF] Temperature 2025-03-17 15:04:00.000 98 [degF] Temperature 2025-03-11 13:14:00.000 97.2 [degF] BMI (%) 2025-03-11 12:42:43.000 32 kg/m2 Height 2025-03-11 12:42:39.000 69 [in_us] Pulse 2025-05-06 11:50:00.000 69 /min Pulse 2025-05-04 14:30:00.000 76 /min Pulse 2025-04-30 16:27:00.000 70 /min Pulse 2025-04-15 10:14:00.000 90 /min Pulse 2025-04-14 14:56:00.000 75 /min Pulse 2025-04-09 15:36:00.000 74 /min Pulse 2025-04-09 15:03:00.000 70 /min Pulse 2025-04-08 15:14:00.000 70 /min Pulse 2025-04-02 11:57:00.000 80 /min Pulse 2025-03-31 13:03:00.000 78 /min Pulse 2025-03-24 14:13:00.000 72 /min Pulse 2025-03-24 13:14:00.000 64 /min Pulse 2025-03-24 12:04:00.000 64 /min Pulse 2025-03-17 16:08:00.000 77 /min Pulse 2025-03-17 15:04:00.000 70 /min Pulse 2025-03-12 15:16:00.000 70 /min Pulse 2025-03-11 13:14:00.000 55 /min O2 Saturation (%) 2025-05-06 11:52:00.000 99 % O2 Saturation (%) 2025-04-30 16:27:00.000 95 % O2 Saturation (%) 2025-04-15 10:14:00.000 99 % O2 Saturation (%) 2025-04-14 14:57:00.000 95 % O2 Saturation (%) 2025-04-09 15:23:00.000 95 % O2 Saturation (%) 2025-04-09 15:03:00.000 97 % O2 Saturation (%) 2025-04-08 15:14:00.000 97 % O2 Saturation (%) 2025-04-02 11:57:00.000 98 % O2 Saturation (%) 2025-03-31 13:03:00.000 96 % O2 Saturation (%) 2025-03-24 14:15:00.000 97 % O2 Saturation (%) 2025-03-24 13:14:00.000 93 % O2 Saturation (%) 2025-03-24 12:04:00.000 93 % O2 Saturation (%) 2025-03-17 16:08:00.000 100 % O2 Saturation (%) 2025-03-17 15:07:00.000 100 % O2 Saturation (%) 2025-03-12 15:16:00.000 95 % O2 Saturation (%) 2025-03-11 13:14:00.000 98 % Respirations 2025-05-06 11:50:00.000 20 /min Respirations 2025-05-04 14:30:00.000 18 /min Respirations 2025-04-30 16:27:00.000 18 /min Respirations 2025-04-15 10:14:00.000 18 /min Respirations 2025-04-14 14:56:00.000 18 /min Respirations 2025-04-09 15:23:00.000 18 /min Respirations 2025-04-09 15:03:00.000 20 /min Respirations 2025-04-08 15:14:00.000 18 /min Respirations 2025-04-02 11:57:00.000 18 /min Respirations 2025-03-31 13:03:00.000 17 /min Respirations 2025-03-24 14:13:00.000 18 /min Respirations 2025-03-24 13:14:00.000 20 /min Respirations 2025-03-24 12:04:00.000 20 /min Respirations 2025-03-17 16:08:00.000 20 /min Respirations 2025-03-17 15:04:00.000 20 /min Respirations 2025-03-12 15:16:00.000 18 /min Respirations 2025-03-11 13:14:00.000 18 /min Weight (lbs) 2025-03-24 14:14:00.000 219 [lb_av] Weight (lbs) 2025-03-17 15:07:00.000 220 [lb_av] Weight (lbs) 2025-03-11 12:42:43.000 220 [lb_av] Systolic Blood Pressure 2025-05-06 11:50:00.000 111 mm [Hg] Systolic Blood Pressure 2025-05-04 14:30:00.000 124 mm [Hg] Systolic Blood Pressure 2025-04-30 16:27:00.000 110 mm [Hg] Systolic Blood Pressure 2025-04-15 10:14:00.000 130 mm [Hg] Systolic Blood Pressure 2025-04-14 14:56:00.000 124 mm [Hg] Systolic Blood Pressure 2025-04-09 15:23:00.000 132 mm [Hg] Systolic Blood Pressure 2025-04-09 15:03:00.000 129 mm [Hg] Systolic Blood Pressure 2025-04-08 15:14:00.000 122 mm [Hg] Systolic Blood Pressure 2025-04-02 11:57:00.000 134 mm [Hg] Systolic Blood Pressure 2025-03-31 13:03:00.000 130 mm [Hg] Systolic Blood Pressure 2025-03-24 14:13:00.000 106 mm [Hg] Systolic Blood Pressure 2025-03-24 13:14:00.000 126 mm [Hg] Systolic Blood Pressure 2025-03-24 12:04:00.000 128 mm [Hg] Systolic Blood Pressure 2025-03-17 16:08:00.000 110 mm [Hg] Systolic Blood Pressure 2025-03-17 15:04:00.000 110 mm [Hg] Systolic Blood Pressure 2025-03-12 15:16:00.000 100 mm [Hg] Systolic Blood Pressure 2025-03-11 13:14:00.000 112 mm [Hg] Diastolic Blood Pressure 2025-05-06 11:50:00.000 60 mm [Hg] Diastolic Blood Pressure 2025-05-04 14:30:00.000 74 mm [Hg] Diastolic Blood Pressure 2025-04-30 16:27:00.000 52 mm [Hg] Diastolic Blood Pressure 2025-04-15 10:14:00.000 68 mm [Hg] Diastolic Blood Pressure 2025-04-14 14:56:00.000 69 mm [Hg] Diastolic Blood Pressure 2025-04-09 15:23:00.000 64 mm [Hg] Diastolic Blood Pressure 2025-04-09 15:03:00.000 68 mm [Hg] Diastolic Blood Pressure 2025-04-08 15:14:00.000 70 mm [Hg] Diastolic Blood Pressure 2025-04-02 11:57:00.000 62 mm [Hg] Diastolic Blood Pressure 2025-03-31 13:03:00.000 70 mm [Hg] Diastolic Blood Pressure 2025-03-24 14:13:00.000 60 mm [Hg] Diastolic Blood Pressure 2025-03-24 13:14:00.000 66 mm [Hg] Diastolic Blood Pressure 2025-03-24 12:04:00.000 66 mm [Hg] Diastolic Blood Pressure 2025-03-17 16:08:00.000 60 mm [Hg] Diastolic Blood Pressure 2025-03-17 15:04:00.000 60 mm [Hg] Diastolic Blood Pressure 2025-03-12 15:16:00.000 60 mm [Hg] Diastolic Blood Pressure 2025-03-11 13:14:00.000 58 mm [Hg] Plan of Treatment Planned Activity Planned Date Details Comments Future Scheduled Test RN TO OBSE RVE, ASSESS, EVALUATE, AND DEVELOP AN INDIVIDUALIZED PLAN OF CARE. AGENCY MAY ACCEPT ORDERS FROM CONSULTING PHYSICIANS DR MARIEL STEPHENS (PCP), DR MOONEY (CARDIOLOGY), DR AYALA (PULMONOLOGY), DR SOLO (PODIATRY) RN TO OBSERVE AND ASSESS, ATTIC FANS MECHANIC/CHEF INSTRUCTOR TO OBSERVE FOR RISK FOR FALLS AND INSTRUCT IN FALL PREVENTION, HOME SAFETY, MEDICATION MANAGEMENT, INFECTION PREVENTION, AND NUTRITION MANAGEMENT. RN/ATTIC FANS MECHANIC/CHEF INSTRUCTOR NURSE MAY PERFORM O2 SATURATION LEVEL ON ADMISSION AND PRN FOR SOB FOR RN TO ASSESS/ATTIC FANS MECHANIC TO OBSERVE PATIENT, WITH NOTIFICATION TO THE PHYSICIAN IF SATURATION IS 90% IN THE ABSENCE OF MORE SPECIFIC PARAMETERS FROM THE PHYSICIAN. AGENCY MAY PERFORM A RESUMPTION OF CARE VISIT FOLLOWING ANY HOSPITAL ADMISSION. RN/ATTIC FANS MECHANIC/CHEF INSTRUCTOR TO MONITOR CO-MORBID CONDITIONS LISTED ON THE PLAN OF CARE AND ANY NEW CONDITIONS THAT PRESENT THEMSELVES DURING THIS EPISODE TO IDENTIFY CHANGES AND INTERVENE TO MINIMIZE COMPLICATIONS. [code = RN TO OBSERVE, ASSESS, EVALUATE, AND DEVELOP AN INDIVIDUALIZED PLAN OF CARE. AGENCY MAY ACCEPT ORDERS FROM CONSULTING PHYSICIANS DR MARIEL STEPHENS (PCP), DR MOONEY (CARDIOLOGY), DR AYALA (PULMONOLOGY), DR SOLO (PODIATRY) RN TO OBSERVE AND ASSESS, ATTIC FANS MECHANIC/CHEF INSTRUCTOR TO OBSERVE FOR RISK FOR FALLS AND INSTRUCT IN FALL PREVENTION, HOME SAFETY, MEDICATION MANAGEMENT, INFECTION PREVENTION, AND NUTRITION MANAGEMENT. RN/ATTIC FANS MECHANIC/CHEF INSTRUCTOR NURSE MAY PERFORM O2 SATURATION LEVEL ON ADMISSION AND PRN FOR SOB FOR RN TO ASSESS/ATTIC FANS MECHANIC TO OBSERVE PATIENT, WITH NOTIFICATION TO THE PHYSICIAN IF SATURATION IS 90% IN THE ABSENCE OF MORE SPECIFIC PARAMETERS FROM THE PHYSICIAN. AGENCY MAY PERFORM A RESUMPTION OF CARE VISIT FOLLOWING ANY HOSPITAL ADMISSION. RN/ATTIC FANS MECHANIC/CHEF INSTRUCTOR TO MONITOR CO-MORBID CONDITIONS LISTED ON THE PLAN OF CARE AND ANY NEW CONDITIONS THAT PRESENT THEMSELVES DURING THIS EPISODE TO IDENTIFY CHANGES AND INTERVENE TO MINIMIZE COMPLICATIONS.] Future Scheduled Test MEDICATION MANAGEMENT; RN/ATTIC FANS MECHANIC/CHEF INSTRUCTOR TO REVIEW MEDICATIONS FOR INTERACTIONS, EFFECTIVENESS OF DRUG THERAPY, AND SIGNS/SYMPTOMS OF ADVERSE REACTIONS. MAY INSTRUCT AND REINFORCE MEDICATION TEACHING RELATED TO THE USE OF MEDICATIONS, DOSAGE, FREQUENCY, PURPOSE, SIDE EFFECTS, AND TO REPORT COMPLICATIONS. [code = MEDICATION MANAGEMENT; RN/ATTIC FANS MECHANIC/CHEF INSTRUCTOR TO REVIEW MEDICATIONS FOR INTERACTIONS, EFFECTIVENESS OF DRUG THERAPY, AND SIGNS/SYMPTOMS OF ADVERSE REACTIONS. MAY INSTRUCT AND REINFORCE MEDICATION TEACHING RELATED TO THE USE OF MEDICATIONS, DOSAGE, FREQUENCY, PURPOSE, SIDE EFFECTS, AND TO REPORT COMPLICATIONS.] Future Scheduled Test RISK FOR H OSPITALIZATION; RN TO ASSESS/TEACH, CHEF INSTRUCTOR/ATTIC FANS MECHANIC TO OBSERVE/TEACH PATIENT/CAREGIVER ON RISK FOR HOSPITALIZATION/EMERGENCY ROOM VISITS, TEACH SIGNS AND SYMPTOMS THAT PUT PATIENT AT RISK, WHEN TO NOTIFY NURSE/PHYSICIAN OF COMPLICATIONS/DECLINE, AND WHEN TO CALL 911. [code = RISK FOR HOSPITALIZATION; RN TO ASSESS/TEACH, CHEF INSTRUCTOR/ATTIC FANS MECHANIC TO OBSERVE/TEACH PATIENT/CAREGIVER ON RISK FOR HOSPITALIZATION/EMERGENCY ROOM VISITS, TEACH SIGNS AND SYMPTOMS THAT PUT PATIENT AT RISK, WHEN TO NOTIFY NURSE/PHYSICIAN OF COMPLICATIONS/DECLINE, AND WHEN TO CALL 911.] Future Scheduled Test CARDIOVASC ULAR SYSTEM; RN TO ASSESS/TEACH, ATTIC FANS MECHANIC/CHEF INSTRUCTOR TO OBSERVE/TEACH RELATED TO ALTERED CARDIOVASCULAR STATUS TO MINIMIZE COMPLICATIONS AND REDUCE HOSPITALIZATION. [code = CARDIOVASCULAR SYSTEM; RN TO ASSESS/TEACH, ATTIC FANS MECHANIC/CHEF INSTRUCTOR TO OBSERVE/TEACH RELATED TO ALTERED CARDIOVASCULAR STATUS TO MINIMIZE COMPLICATIONS AND REDUCE HOSPITALIZATION.] Future Scheduled Test HEART FAIL URE; RN TO ASSESS/TEACH, ATTIC FANS MECHANIC/CHEF INSTRUCTOR TO OBSERVE/TEACH CARDIOPULMONARY SYSTEM TO IDENTIFY SIGNS OF DECOMPENSATION AND INTERVENE TO MINIMIZE THE SEVERITY OF FLUID OVERLOAD. OBSERVE PATIENT ABILITY TO MONITOR AND RECORD DAILY WEIGHTS AND VITAL SIGNS, INCLUDING PULSE AND BLOOD PRESSURE; RECORD PATIENT REPORTED WEIGHT, OR WEIGH PATIENT NEEDED. REPORT INCREASED EDEMA OR WEIGHT GAIN OF >2 LBS IN 1 DAY OR >5 LBS IN 1 WEEK OR 5LBS OR MORE OVER TARGET WEIGHT. MAY MEASURE ABDOMINAL GIRTH IF UNABLE TO WEIGH. SCALES AND BP MONITOR TO BE PROVIDED IF NEEDED. [code = HEART FAILURE; RN TO ASSESS/TEACH, ATTIC FANS MECHANIC/CHEF INSTRUCTOR TO OBSERVE/TEACH CARDIOPULMONARY SYSTEM TO IDENTIFY SIGNS OF DECOMPENSATION AND INTERVENE TO MINIMIZE THE SEVERITY OF FLUID OVERLOAD. OBSERVE PATIENT ABILITY TO MONITOR AND RECORD DAILY WEIGHTS AND VITAL SIGNS, INCLUDING PULSE AND BLOOD PRESSURE; RECORD PATIENT REPORTED WEIGHT, OR WEIGH PATIENT NEEDED. REPORT INCREASED EDEMA OR WEIGHT GAIN OF >2 LBS IN 1 DAY OR >5 LBS IN 1 WEEK OR 5LBS OR MORE OVER TARGET WEIGHT. MAY MEASURE ABDOMINAL GIRTH IF UNABLE TO WEIGH. SCALES AND BP MONITOR TO BE PROVIDED IF NEEDED.] Future Scheduled Test HYPERTENSI ON MANAGEMENT; RN TO ASSESS AND TEACH, ATTIC FANS MECHANIC/CHEF INSTRUCTOR TO OBSERVE AND TEACH WARNING SIGNS AND SYMPTOMS TO AVOID HOSPITALIZATION. [code = HYPERTENSION MANAGEMENT; RN TO ASSESS AND TEACH, ATTIC FANS MECHANIC/CHEF INSTRUCTOR TO OBSERVE AND TEACH WARNING SIGNS AND SYMPTOMS TO AVOID HOSPITALIZATION.] Future Scheduled Test ARRHYTHMIA MANAGEMENT; RN TO ASSESS AND TEACH, ATTIC FANS MECHANIC/CHEF INSTRUCTOR TO OBSERVE AND TEACH WARNING SIGNS AND SYMPTOMS TO AVOID HOSPITALIZATION. [code = ARRHYTHMIA MANAGEMENT; RN TO ASSESS AND TEACH, ATTIC FANS MECHANIC/CHEF INSTRUCTOR TO OBSERVE AND TEACH WARNING SIGNS AND SYMPTOMS TO AVOID HOSPITALIZATION.] Future Scheduled Test RESPIRATOR Y SYSTEM MANAGEMENT; RN TO ASSESS AND TEACH, ATTIC FANS MECHANIC/CHEF INSTRUCTOR TO OBSERVE AND TEACH RELATED TO ALTERED RESPIRATORY STATUS TO MINIMIZE COMPLICATIONS AND REDUCE HOSPITALIZATION. [code = RESPIRATORY SYSTEM MANAGEMENT; RN TO ASSESS AND TEACH, ATTIC FANS MECHANIC/CHEF INSTRUCTOR TO OBSERVE AND TEACH RELATED TO ALTERED RESPIRATORY STATUS TO MINIMIZE COMPLICATIONS AND REDUCE HOSPITALIZATION.] Future Scheduled Test COPD MANAG EMENT; RN TO ASSESS AND TEACH, ATTIC FANS MECHANIC/CHEF INSTRUCTOR TO OBSERVE AND TEACH SIGNS/SYMPTOMS OF COPD EXACERBATION AND PROVIDE EARLY INTERVENTIONS TO MINIMIZE RISK OF HOSPITALIZATION. RN/ATTIC FANS MECHANIC/CHEF INSTRUCTOR TO INSTRUCT ON SELF-CARE MANAGEMENT INCLUDING BREATHING TECHNIQUES, AIRWAY CLEARANCE, AND PROPER USE OF COPD MEDICATIONS. RN TO ASSESS AND TEACH, ATTIC FANS MECHANIC/CHEF INSTRUCTOR TO OBSERVE AND TEACH PATIENT/CAREGIVER ABILITY TO MONITOR AND RECORD VITAL SIGNS INCLUDING PULSE OXIMETRY AND BLOOD PRESSURE. PULSE OXIMETER AND BP MONITOR TO BE PROVIDED IF NEEDED [code = COPD MANAGEMENT; RN TO ASSESS AND TEACH, ATTIC FANS MECHANIC/CHEF INSTRUCTOR TO OBSERVE AND TEACH SIGNS/SYMPTOMS OF COPD EXACERBATION AND PROVIDE EARLY INTERVENTIONS TO MINIMIZE RISK OF HOSPITALIZATION. RN/ATTIC FANS MECHANIC/CHEF INSTRUCTOR TO INSTRUCT ON SELF-CARE MANAGEMENT INCLUDING BREATHING TECHNIQUES, AIRWAY CLEARANCE, AND PROPER USE OF COPD MEDICATIONS. RN TO ASSESS AND TEACH, ATTIC FANS MECHANIC/CHEF INSTRUCTOR TO OBSERVE AND TEACH PATIENT/CAREGIVER ABILITY TO MONITOR AND RECORD VITAL SIGNS INCLUDING PULSE OXIMETRY AND BLOOD PRESSURE. PULSE OXIMETER AND BP MONITOR TO BE PROVIDED IF NEEDED] Future Scheduled Test PNEUMONIA MANAGEMENT; RN TO ASSESS AND TEACH, ATTIC FANS MECHANIC/CHEF INSTRUCTOR TO OBSERVE AND TEACH SIGNS OF PNEUMONIA EXACERBATION AND PROVIDE EARLY INTERVENTIONS TO MINIMIZE RISK OF HOSPITALIZATION. [code = PNEUMONIA MANAGEMENT; RN TO ASSESS AND TEACH, ATTIC FANS MECHANIC/CHEF INSTRUCTOR TO OBSERVE AND TEACH SIGNS OF PNEUMONIA EXACERBATION AND PROVIDE EARLY INTERVENTIONS TO MINIMIZE RISK OF HOSPITALIZATION.] Future Scheduled Test ASTHMA MAN AGEMENT; RN TO ASSESS AND TEACH, ATTIC FANS MECHANIC/CHEF INSTRUCTOR TO OBSERVE AND TEACH ASTHMA MANAGEMENT AND PROVIDE EARLY INTERVENTIONS TO MINIMIZE RISK OF HOSPITALIZATION [code = ASTHMA MANAGEMENT; RN TO ASSESS AND TEACH, ATTIC FANS MECHANIC/CHEF INSTRUCTOR TO OBSERVE AND TEACH ASTHMA MANAGEMENT AND PROVIDE EARLY INTERVENTIONS TO MINIMIZE RISK OF HOSPITALIZATION] Future Scheduled Test OXYGEN THE RAPY; RN/ATTIC FANS MECHANIC/CHEF INSTRUCTOR TO INSTRUCT ON OXYGEN MANAGEMENT INCLUDING: ADMINISTRATION AT 4 L/MIN VIA NC CONTINUOUS, CARE OF EQUIPMENT AND SAFETY. [code = OXYGEN THERAPY; RN/ATTIC FANS MECHANIC/CHEF INSTRUCTOR TO INSTRUCT ON OXYGEN MANAGEMENT INCLUDING: ADMINISTRATION AT 4 L/MIN VIA NC CONTINUOUS, CARE OF EQUIPMENT AND SAFETY.] Future Scheduled Test SKIN INTEG RITY RN TO ASSESS AND TEACH, ATTIC FANS MECHANIC/CHEF INSTRUCTOR TO OBSERVE AND TEACH INTEGUMENTARY STATUS TO IDENTIFY CHANGES AND INTERVENE TO MINIMIZE COMPLICATIONS. PROVIDE SKILLED TEACHING OF GENERAL WOUND AND SKIN CARE AND PREVENTION RELATED TO POTENTIAL FOR OR ACTUAL ALTERED SKIN INTEGRITY [code = SKIN INTEGRITY RN TO ASSESS AND TEACH, ATTIC FANS MECHANIC/CHEF INSTRUCTOR TO OBSERVE AND TEACH INTEGUMENTARY STATUS TO IDENTIFY CHANGES AND INTERVENE TO MINIMIZE COMPLICATIONS. PROVIDE SKILLED TEACHING OF GENERAL WOUND AND SKIN CARE AND PREVENTION RELATED TO POTENTIAL FOR OR ACTUAL ALTERED SKIN INTEGRITY] Future Scheduled Test PAIN MANAG EMENT; RN TO ASSESS AND TEACH, CHEF INSTRUCTOR/ATTIC FANS MECHANIC TO OBSERVE AND TEACH AND PROVIDE EDUCATION ON PAIN MANAGEMENT TECHNIQUES. [code = PAIN MANAGEMENT; RN TO ASSESS AND TEACH, CHEF INSTRUCTOR/ATTIC FANS MECHANIC TO OBSERVE AND TEACH AND PROVIDE EDUCATION ON PAIN MANAGEMENT TECHNIQUES.] Future Scheduled Test DIABETES M ANAGEMENT; RN TO ASSESS AND TEACH, CHEF INSTRUCTOR/ATTIC FANS MECHANIC TO OBSERVE AND TEACH INSTRUCTIONS OF DIABETIC CARE TO INCLUDE: DIET , SKIN CARE, SIGNS AND SYMPTOMS OF HYPO/HYPERGLYCEMIA, PROPER ADMINISTRATION OF DIABETIC MEDICATION. RN TO ASSESS AND TEACH, CHEF INSTRUCTOR/ATTIC FANS MECHANIC TO OBSERVE AND TEACH PATIENT/CAREGIVER ABILITY TO PERFORM AND RECORD BLOOD GLUCOSE TESTING ORDERED AND TO REPORT ABNORMAL FINDINGS TO PHYSICIAN. RN/CHEF INSTRUCTOR/ATTIC FANS MECHANIC MAY PERFORM BLOOD GLUCOSE TEST NEEDED. RN/CHEF INSTRUCTOR/ATTIC FANS MECHANIC TO INSTRUCT PATIENT ON IMPORTANCE OF HGBA1C MONITORING, KIDNEY FUNCTION TEST, EYE AND FOOT EXAMS. [code = DIABETES MANAGEMENT; RN TO ASSESS AND TEACH, CHEF INSTRUCTOR/ATTIC FANS MECHANIC TO OBSERVE AND TEACH INSTRUCTIONS OF DIABETIC CARE TO INCLUDE: DIET , SKIN CARE, SIGNS AND SYMPTOMS OF HYPO/HYPERGLYCEMIA, PROPER ADMINISTRATION OF DIABETIC MEDICATION. RN TO ASSESS AND TEACH, CHEF INSTRUCTOR/ATTIC FANS MECHANIC TO OBSERVE AND TEACH PATIENT/CAREGIVER ABILITY TO PERFORM AND RECORD BLOOD GLUCOSE TESTING ORDERED AND TO REPORT ABNORMAL FINDINGS TO PHYSICIAN. RN/CHEF INSTRUCTOR/ATTIC FANS MECHANIC MAY PERFORM BLOOD GLUCOSE TEST NEEDED. RN/CHEF INSTRUCTOR/ATTIC FANS MECHANIC TO INSTRUCT PATIENT ON IMPORTANCE OF HGBA1C MONITORING, KIDNEY FUNCTION TEST, EYE AND FOOT EXAMS.] Future Scheduled Test GENITOURIN RIOS MANAGEMENT; RN TO ASSESS AND TEACH, ATTIC FANS MECHANIC/CHEF INSTRUCTOR TO OBSERVE AND TEACH RELATED TO ALTERED GENITOURINARY STATUS TO MINIMIZE COMPLICATIONS AND REDUCE HOSPITALIZATION. [code = GENITOURINARY MANAGEMENT; RN TO ASSESS AND TEACH, ATTIC FANS MECHANIC/CHEF INSTRUCTOR TO OBSERVE AND TEACH RELATED TO ALTERED GENITOURINARY STATUS TO MINIMIZE COMPLICATIONS AND REDUCE HOSPITALIZATION.] Future Scheduled Test URINARY CU LTURE AND SENSITIVITY PROTOCOL UP TO 2 PRN RN/ATTIC FANS MECHANIC/CHEF INSTRUCTOR VISITS MAY BE PERFORMED FOR S/S OF UTI. RN TO ASSESS, ATTIC FANS MECHANIC/CHEF INSTRUCTOR TO OBSERVE INITIATION OF UTI PROTOCOL. RN/CHEF INSTRUCTOR/ATTIC FANS MECHANIC TO INSTRUCT PATIENT AND/OR CAREGIVER ON S/S OF UTI TO REPORT TO RN/ATTIC FANS MECHANIC/CHEF INSTRUCTOR IF NEW OR WORSENING SYMPTOMS. DRINK PLENTY OF WATER THROUGHOUT THE DAY TO MAINTAIN HYDRATION (UNLESS CONTRAINDICATED.) URINATE WHEN THE URGE IS FELT, DO NOT WAIT. WASH GENITALS DAILY. WIPE FROM FRONT TO BACK AFTER HAVING A BOWEL MOVEMENT. RN/CHEF INSTRUCTOR/ATTIC FANS MECHANIC TO OBTAIN URINE SPECIMEN FOR UA WITH C/S VIA CLEAN CATCH URINE AND IF UNABLE TO OBTAIN MAY PERFORM AN IN AND OUT CATH. IF PATIENT HAS INDWELLING CATHETER MAY OBTAIN FROM SAMPLING PORT. NOTIFY PROVIDER OF RESULTS AND OBTAIN FURTHER ORDERS. [code = URINARY CULTURE AND SENSITIVITY PROTOCOL UP TO 2 PRN RN/ATTIC FANS MECHANIC/CHEF INSTRUCTOR VISITS MAY BE PERFORMED FOR S/S OF UTI. RN TO ASSESS, ATTIC FANS MECHANIC/CHEF INSTRUCTOR TO OBSERVE INITIATION OF UTI PROTOCOL. RN/CHEF INSTRUCTOR/ATTIC FANS MECHANIC TO INSTRUCT PATIENT AND/OR CAREGIVER ON S/S OF UTI TO REPORT TO RN/ATTIC FANS MECHANIC/CHEF INSTRUCTOR IF NEW OR WORSENING SYMPTOMS. DRINK PLENTY OF WATER THROUGHOUT THE DAY TO MAINTAIN HYDRATION (UNLESS CONTRAINDICATED.) URINATE WHEN THE URGE IS FELT, DO NOT WAIT. WASH GENITALS DAILY. WIPE FROM FRONT TO BACK AFTER HAVING A BOWEL MOVEMENT. RN/CHEF INSTRUCTOR/ATTIC FANS MECHANIC TO OBTAIN URINE SPECIMEN FOR UA WITH C/S VIA CLEAN CATCH URINE AND IF UNABLE TO OBTAIN MAY PERFORM AN IN AND OUT CATH. IF PATIENT HAS INDWELLING CATHETER MAY OBTAIN FROM SAMPLING PORT. NOTIFY PROVIDER OF RESULTS AND OBTAIN FURTHER ORDERS.] Future Scheduled Test URINARY MO LECULAR TESTING PROTOCOL UP TO 2 PRN RN/ATTIC FANS MECHANIC/CHEF INSTRUCTOR VISITS MAY BE PERFORMED FOR S/S OF UTI. RN TO ASSESS, ATTIC FANS MECHANIC/CHEF INSTRUCTOR TO OBSERVE INITIATION OF UTI PROTOCOL. RN/CHEF INSTRUCTOR/ATTIC FANS MECHANIC TO INSTRUCT PATIENT AND/OR CAREGIVER ON S/S OF UTI TO REPORT TO RN/CHEF INSTRUCTOR/ATTIC FANS MECHANIC IF NEW OR WORSENING SYMPTOMS. DRINK PLENTY OF WATER THROUGHOUT THE DAY TO MAINTAIN HYDRATION (UNLESS CONTRAINDICATED.) URINATE WHEN THE URGE IS FELT, DO NOT WAIT. WASH GENITALS DAILY. WIPE FROM FRONT TO BACK AFTER HAVING A BOWEL MOVEMENT. RN/CHEF INSTRUCTOR/ATTIC FANS MECHANIC TO OBTAIN URINE SPECIMEN FOR MOLECULAR URINE TESTING BY OPTION 1 OR OPTION 2 RN/CHEF INSTRUCTOR/ATTIC FANS MECHANIC TO OBTAIN URINE SPECIMEN FOR U/A WITH REFLEX TO UTI PANEL (MOLECULAR) VIA CLEAN CATCH URINE AND IF UNABLE TO OBTAIN MAY PERFORM AN IN AND OUT CATH. IF PATIENT HAS INDWELLING CATHETER MAY OBTAIN FROM SAMPLING PORT. INCLUDE ANTIBIOTIC/ANTIFUNGAL RESISTANCE TESTING INCLUDE URINALYSIS (ONLY FOR CLEAN CATCH/ IN AND OUT CATH) NOTIFY PROVIDER OF RESULTS AND OBTAIN FURTHER ORDERS. [code = URINARY MOLECULAR TESTING PROTOCOL UP TO 2 PRN RN/ATTIC FANS MECHANIC/CHEF INSTRUCTOR VISITS MAY BE PERFORMED FOR S/S OF UTI. RN TO ASSESS, ATTIC FANS MECHANIC/CHEF INSTRUCTOR TO OBSERVE INITIATION OF UTI PROTOCOL. RN/CHEF INSTRUCTOR/ATTIC FANS MECHANIC TO INSTRUCT PATIENT AND/OR CAREGIVER ON S/S OF UTI TO REPORT TO RN/CHEF INSTRUCTOR/ATTIC FANS MECHANIC IF NEW OR WORSENING SYMPTOMS. DRINK PLENTY OF WATER THROUGHOUT THE DAY TO MAINTAIN HYDRATION (UNLESS CONTRAINDICATED.) URINATE WHEN THE URGE IS FELT, DO NOT WAIT. WASH GENITALS DAILY. WIPE FROM FRONT TO BACK AFTER HAVING A BOWEL MOVEMENT. RN/CHEF INSTRUCTOR/ATTIC FANS MECHANIC TO OBTAIN URINE SPECIMEN FOR MOLECULAR URINE TESTING BY OPTION 1 OR OPTION 2 RN/CHEF INSTRUCTOR/ATTIC FANS MECHANIC TO OBTAIN URINE SPECIMEN FOR U/A WITH REFLEX TO UTI PANEL (MOLECULAR) VIA CLEAN CATCH URINE AND IF UNABLE TO OBTAIN MAY PERFORM AN IN AND OUT CATH. IF PATIENT HAS INDWELLING CATHETER MAY OBTAIN FROM SAMPLING PORT. INCLUDE ANTIBIOTIC/ANTIFUNGAL RESISTANCE TESTING INCLUDE URINALYSIS (ONLY FOR CLEAN CATCH/ IN AND OUT CATH) NOTIFY PROVIDER OF RESULTS AND OBTAIN FURTHER ORDERS.] Future Scheduled Test URINARY TR ACT INFECTION MANAGEMENT; RN/CHEF INSTRUCTOR/ATTIC FANS MECHANIC TO PROVIDE SKILLED TEACHING AND SELF- CARE MANAGEMENT RELATED TO UTI TO MINIMIZE COMPLICATIONS AND REDUCE THE RISK OF HOSPITALIZATION. [code = URINARY TRACT INFECTION MANAGEMENT; RN/CHEF INSTRUCTOR/ATTIC FANS MECHANIC TO PROVIDE SKILLED TEACHING AND SELF- CARE MANAGEMENT RELATED TO UTI TO MINIMIZE COMPLICATIONS AND REDUCE THE RISK OF HOSPITALIZATION.] Future Scheduled Test FALL REDUC TION MANAGEMENT; RN TO ASSESS AND OBSERVE, ATTIC FANS MECHANIC/CHEF INSTRUCTOR TO OBSERVE FALL RISK FACTORS AND EDUCATE PATIENT/CAREGIVER ON STRATEGIES TO MINIMIZE THE RISK OF FALLING. [code = FALL REDUCTION MANAGEMENT; RN TO ASSESS AND OBSERVE, ATTIC FANS MECHANIC/CHEF INSTRUCTOR TO OBSERVE FALL RISK FACTORS AND EDUCATE PATIENT/CAREGIVER ON STRATEGIES TO MINIMIZE THE RISK OF FALLING.] Future Scheduled Test MEDICAL SO CIAL SERVICES FOR EVALUATION TO ASSESS SOCIAL AND EMOTIONAL FACTORS RELATED TO THE PATIENT'S ILLNESS, NEED FOR CARE, RESPONSE TO TREATMENT AND ADJUSTMENT TO CARE. [code = MEDICAL DATA COLLECTION SPECIALIST FOR EVALUATION TO ASSESS SOCIAL AND EMOTIONAL FACTORS RELATED TO THE PATIENT'S ILLNESS, NEED FOR CARE, RESPONSE TO TREATMENT AND ADJUSTMENT TO CARE.] Future Scheduled Test AGENCY MAY PERFORM A RESUMPTION OF CARE VISIT FOLLOWING ANY HOSPITAL ADMISSION. PT TO EVALUATE, OBSERVE / ASSESS, AND MONITOR, BRUSH LOADER AND HANDLE ATTACHER TO OBSERVE AND MONITOR, PROVIDE SKILLED THERAPEUTIC INTERVENTION, ACTIVITY, EDUCATION, AND TRAINING TO ADDRESS; PT/BRUSH LOADER AND HANDLE ATTACHER TO PROVIDE GAIT TRAINING FOR IMPROVED MOBILITY AND /OR TO NORMALIZE GAIT PATTERN NEUROMUSCULAR RE-EDUCATION / BALANCE / POSTURAL CONTROL (PT) THERAPEUTIC EXERCISES AND ESTABLISHING A HOME EXERCISE PROGRAM (PT/BRUSH LOADER AND HANDLE ATTACHER) SIT TO/FROM STAND TRANSFERS (PT/BRUSH LOADER AND HANDLE ATTACHER) PT / BRUSH LOADER AND HANDLE ATTACHER TO MONITOR AND EDUCATE ON OXYGEN SATURATION DURING ADLS/IADLS, NOTIFY PHYSICIAN AND/OR THE RN CLINICAL BEAMER OPERATOR FOR PHYSICIAN NOTIFICATION AND IF O2 SATS BELOW PHYSICIAN ORDERED PARAMETERS AFTER 10 MIN OF REST PT / BRUSH LOADER AND HANDLE ATTACHER MAY EDUCATE ON PAIN MANAGEMENT CLINICALLY INDICATED, INCLUDING NON-PHARMACOLOGICAL PAIN REDUCTION TECHNIQUES AND USE OF CRYOTHERAPY OR HEAT UP TO 20 MIN AT A TIME FOR PAIN MANAGEMENT 3 TIMES PER DAY PT / BRUSH LOADER AND HANDLE ATTACHER TO MONITOR FOR HYPO/HYPERGLYCEMIA AND CONDUCT ROUTINE FOOT INSPECTIONS. RECORD PATIENT REPORTED BLOOD SUGAR LEVELS AND NOTIFY PHYSICIAN AND/OR THE RN CLINICAL BEAMER OPERATOR FOR PHYSICIAN NOTIFICATION IF BLOOD SUGAR LEVELS ARE OUTSIDE ORDERED PARAMETERS. TEACH PATIENT/CAREGIVER ON DAILY FOOT INSPECTIONS PT / BRUSH LOADER AND HANDLE ATTACHER TO EDUCATE ON HEART FAILURE SELF-MANAGEMENT PT/BRUSH LOADER AND HANDLE ATTACHER TO IDENTIFY FALL RISK FACTORS; EDUCATE THE PATIENT/CAREGIVER ON WAYS TO REDUCE FALL RISK FACTORS AND ESTABLISH HOME EXERCISE PROGRAM TO MINIMIZE FALL RISK. MAY TEACH THE PATIENT FLOOR RECOVERY WHEN CLINICALLY APPROPRIATE [code = AGENCY MAY PERFORM A RESUMPTION OF CARE VISIT FOLLOWING ANY HOSPITAL ADMISSION. PT TO EVALUATE, OBSERVE / ASSESS, AND MONITOR, BRUSH LOADER AND HANDLE ATTACHER TO OBSERVE AND MONITOR, PROVIDE SKILLED THERAPEUTIC INTERVENTION, ACTIVITY, EDUCATION, AND TRAINING TO ADDRESS; PT/BRUSH LOADER AND HANDLE ATTACHER TO PROVIDE GAIT TRAINING FOR IMPROVED MOBILITY AND /OR TO NORMALIZE GAIT PATTERN NEUROMUSCULAR RE-EDUCATION / BALANCE / POSTURAL CONTROL (PT) THERAPEUTIC EXERCISES AND ESTABLISHING A HOME EXERCISE PROGRAM (PT/BRUSH LOADER AND HANDLE ATTACHER) SIT TO/FROM STAND TRANSFERS (PT/BRUSH LOADER AND HANDLE ATTACHER) PT / BRUSH LOADER AND HANDLE ATTACHER TO MONITOR AND EDUCATE ON OXYGEN SATURATION DURING ADLS/IADLS, NOTIFY PHYSICIAN AND/OR THE RN CLINICAL BEAMER OPERATOR FOR PHYSICIAN NOTIFICATION AND IF O2 SATS BELOW PHYSICIAN ORDERED PARAMETERS AFTER 10 MIN OF REST PT / BRUSH LOADER AND HANDLE ATTACHER MAY EDUCATE ON PAIN MANAGEMENT CLINICALLY INDICATED, INCLUDING NON-PHARMACOLOGICAL PAIN REDUCTION TECHNIQUES AND USE OF CRYOTHERAPY OR HEAT UP TO 20 MIN AT A TIME FOR PAIN MANAGEMENT 3 TIMES PER DAY PT / BRUSH LOADER AND HANDLE ATTACHER TO MONITOR FOR HYPO/HYPERGLYCEMIA AND CONDUCT ROUTINE FOOT INSPECTIONS. RECORD PATIENT REPORTED BLOOD SUGAR LEVELS AND NOTIFY PHYSICIAN AND/OR THE RN CLINICAL BEAMER OPERATOR FOR PHYSICIAN NOTIFICATION IF BLOOD SUGAR LEVELS ARE OUTSIDE ORDERED PARAMETERS. TEACH PATIENT/CAREGIVER ON DAILY FOOT INSPECTIONS PT / BRUSH LOADER AND HANDLE ATTACHER TO EDUCATE ON HEART FAILURE SELF-MANAGEMENT PT/BRUSH LOADER AND HANDLE ATTACHER TO IDENTIFY FALL RISK FACTORS; EDUCATE THE PATIENT/CAREGIVER ON WAYS TO REDUCE FALL RISK FACTORS AND ESTABLISH HOME EXERCISE PROGRAM TO MINIMIZE FALL RISK. MAY TEACH THE PATIENT FLOOR RECOVERY WHEN CLINICALLY APPROPRIATE] Future Scheduled Test MEDICAL SO CIAL SERVICES FOR COMMUNITY RESOURCE PLANNING. [code = MEDICAL DATA COLLECTION SPECIALIST FOR COMMUNITY RESOURCE PLANNING.] Future Scheduled Test AGENCY MAY PERFORM A RESUMPTION OF CARE VISIT FOLLOWING ANY HOSPITAL ADMISSION. OT TO EVALUATE, OBSERVE / ASSESS, AND MONITOR, WATCH ASSEMBLY INSPECTOR TO OBSERVE AND MONITOR, PROVIDE SKILLED THERAPEUTIC INTERVENTION, ACTIVITY, EDUCATION, AND TRAINING TO ADDRESS; IMPROVEMENT OF ACTIVITY TOLERANCE, IADL TASKS, SELF CARE PERFORMANCE ACTIVITIES OF DAILY LIVING (OT/WATCH ASSEMBLY INSPECTOR) LIGHT HOUSEKEEPING (OT/WATCH ASSEMBLY INSPECTOR) BATH/SHOWER TRANSFER (OT/WATCH ASSEMBLY INSPECTOR) POSTURAL CONTROL/BALANCE (OT/WATCH ASSEMBLY INSPECTOR) ENERGY CONSERVATION/ACTIVITY DEMAND (OT/CHELO) OT TO ASSESS / CHELO TO MONITOR FOR HEART FAILURE EXACERBATION AND RECORD PATIENT REPORTED WEIGHT, AND NOTIFY THE PHYSICIAN AND/OR THE RN CLINICAL BEAMER OPERATOR FOR PHYSICIAN NOTIFICATION OF HF EXACERBATION (2LB WEIGHT GAIN IN 1 DAY, 5LBS IN A WEEK OR 5 LBS OVER BASELINE; INCREASED SOB, EDEMA, NEEDING MORE PILLOWS AT NIGHT, CRACKLES IN BASIS OF THE LUNGS OR PMI SHIFT). OT/WATCH ASSEMBLY INSPECTOR TO MONITOR AND EDUCATE ON OXYGEN SATURATION DURING ADLS/IADLS, NOTIFY PHYSICIAN AND/OR THE RN CLINICAL BEAMER OPERATOR FOR PHYSICIAN NOTIFICATION AND IF O2 SATS BELOW 90% AFTER 10 MIN OF REST. OT/WATCH ASSEMBLY INSPECTOR TO MONITOR PATIENT WITH STABLE DEPRESSION ON SIGNS AND SYMPTOMS OF WORSENING DEPRESSION AND AVAILABLE RESOURCES INCLUDING [facility] SUICIDE CRISIS LIFELINE. OT/WATCH ASSEMBLY INSPECTOR MAY EDUCATE ON PAIN MANAGEMENT CLINICALLY INDICATED, INCLUDING NON-PHARMACOLOGICAL PAIN REDUCTION TECHNIQUES AND USE OF CRYOTHERAPY OR HEAT UP TO 20 MIN AT A TIME FOR PAIN MANAGEMENT OT / WATCH ASSEMBLY INSPECTOR TO IDENTIFY FALL RISK FACTORS; EDUCATE THE PATIENT/CAREGIVER ON WAYS TO REDUCE FALL RISK FACTORS AND ESTABLISH HOME EXERCISE PROGRAM TO MINIMIZE FALL RISK. MAY TEACH THE PATIENT FLOOR RECOVERY WHEN CLINICALLY APPROPRIATE. [code = AGENCY MAY PERFORM A RESUMPTION OF CARE VISIT FOLLOWING ANY HOSPITAL ADMISSION. OT TO EVALUATE, OBSERVE / ASSESS, AND MONITOR, WATCH ASSEMBLY INSPECTOR TO OBSERVE AND MONITOR, PROVIDE SKILLED THERAPEUTIC INTERVENTION, ACTIVITY, EDUCATION, AND TRAINING TO ADDRESS; IMPROVEMENT OF ACTIVITY TOLERANCE, IADL TASKS, SELF CARE PERFORMANCE ACTIVITIES OF DAILY LIVING (OT/CHELO) LIGHT HOUSEKEEPING (OT/CHELO) BATH/SHOWER TRANSFER (OT/WATCH ASSEMBLY INSPECTOR) POSTURAL CONTROL/BALANCE (OT/WATCH ASSEMBLY INSPECTOR) ENERGY CONSERVATION/ACTIVITY DEMAND (OT/CHELO) OT TO ASSESS / CHELO TO MONITOR FOR HEART FAILURE EXACERBATION AND RECORD PATIENT REPORTED WEIGHT, AND NOTIFY THE PHYSICIAN AND/OR THE RN CLINICAL BEAMER OPERATOR FOR PHYSICIAN NOTIFICATION OF HF EXACERBATION (2LB WEIGHT GAIN IN 1 DAY, 5LBS IN A WEEK OR 5 LBS OVER BASELINE; INCREASED SOB, EDEMA, NEEDING MORE PILLOWS AT NIGHT, CRACKLES IN BASIS OF THE LUNGS OR PMI SHIFT). OT/CHELO TO MONITOR AND EDUCATE ON OXYGEN SATURATION DURING ADLS/IADLS, NOTIFY PHYSICIAN AND/OR THE RN CLINICAL BEAMER OPERATOR FOR PHYSICIAN NOTIFICATION AND IF O2 SATS BELOW 90% AFTER 10 MIN OF REST. OT/CHELO TO MONITOR PATIENT WITH STABLE DEPRESSION ON SIGNS AND SYMPTOMS OF WORSENING DEPRESSION AND AVAILABLE RESOURCES INCLUDING [facility] SUICIDE CRISIS LIFELINE. OT/CHELO MAY EDUCATE ON PAIN MANAGEMENT CLINICALLY INDICATED, INCLUDING NON-PHARMACOLOGICAL PAIN REDUCTION TECHNIQUES AND USE OF CRYOTHERAPY OR HEAT UP TO 20 MIN AT A TIME FOR PAIN MANAGEMENT OT / WATCH ASSEMBLY INSPECTOR TO IDENTIFY FALL RISK FACTORS; EDUCATE THE PATIENT/CAREGIVER ON WAYS TO REDUCE FALL RISK FACTORS AND ESTABLISH HOME EXERCISE PROGRAM TO MINIMIZE FALL RISK. MAY TEACH THE PATIENT FLOOR RECOVERY WHEN CLINICALLY APPROPRIATE.] Goal 2025-05-06 Patient Goal - G ET BACK ON FEET AND DO LIKE USED TO Goal Provider Goal - A PLAN OF CARE WILL BE ESTABLISHED THAT MEETS THE PATIENT S NEEDS. PATIENT WILL DEMONSTRATE OXYGEN SATURATION WITHIN NORMAL LIMITS OR PATIENT S OPTIMAL LEVEL ESTABLISHED BY THE PHYSICIAN THROUGHOUT CARE. CHANGES TO CO-MORBID CONDITIONS AND ANY NEW CONDITIONS WILL BE IDENTIFIED AND REPORTED TO THE PHYSICIAN. Goal Provider Goal - PATIENT/CAREGIVER TO VERBALIZE, AND CONSISTENTLY DEMONSTRATE EFFECTIVE, SAFE MANAGEMENT OF MEDICATION INCLUDING KNOWLEDGE OF EFFECTIVENESS, POTENTIAL SIDE EFFECTS AND DRUG REACTIONS AND WHEN TO CONTACT THE APPROPRIATE CARE PROVIDER. PATIENT/CAREGIVER WILL BE ABLE TO VERBALIZE UNDERSTANDING OF MEDICATION REGIMEN AND ACCURATELY TAKE MEDICATIONS PRESCRIBED WITHOUT ADVERSE EFFECTS BY END OF EPISODE Goal Provider Goal - PATIENT/CAREGIVER WILL VERBALIZE UNDERSTANDING OF SIGNS AND SYMPTOMS THAT PUT THE PATIENT AT RISK FOR HOSPITALIZATION /EMERGENCY ROOM VISITS, WHEN TO NOTIFY NURSE/PHYSICIAN OF COMPLICATIONS/DECLINE AND WHEN TO CALL 911. Goal Provider Goal - PATIENT / CAREGIVER WILL VERBALIZE/DEMONSTRATE UNDERSTANDING OF MEASURES TO MANAGE ALTERED CARDIOVASCULAR STATUS BY END OF EPISODE Goal Provider Goal - PATIENT / CAREGIVER WILL VERBALIZE/DEMONSTRATE AN ABILITY TO ADHERE TO SELF-MANAGEMENT OF HF TO MINIMIZE COMPLICATIONS AND AVOID HOSPITALIZATION BY END OF EPISODE. Goal Provider Goal - PATIENT / CAREGIVER WILL VERBALIZE/DEMONSTRATE AN ABILITY TO ADHERE TO SELF-MANAGEMENT OF HTN TO MINIMIZE COMPLICATIONS AND AVOID HOSPITALIZATION BY END OF EPISODE. Goal Provider Goal - PATIENT / CAREGIVER WILL VERBALIZE/DEMONSTRATE AN ABILITY TO ADHERE TO SELF-MANAGEMENT OF HEART ARRHYTHMIA TO MINIMIZE COMPLICATIONS AND AVOID HOSPITALIZATION BY END OF EPISODE. Goal Provider Goal - PATIENT / CAREGIVER WILL VERBALIZE/DEMONSTRATE UNDERSTANDING OF MEASURES TO MANAGE ALTERED RESPIRATORY STATUS BY END OF EPISODE. Goal Provider Goal - PATIENT / CAREGIVER WILL VERBALIZE/DEMONSTRATE AN ABILITY TO ADHERE TO SELF-MANAGEMENT OF COPD TO MINIMIZE COMPLICATIONS AND AVOID HOSPITALIZATION BY END OF EPISODE. Goal Provider Goal - PATIENT / CAREGIVER WILL VERBALIZE/DEMONSTRATE AN ABILITY TO ADHERE TO PNEUMONIA SELF-MANAGEMENT TO MINIMIZE COMPLICATIONS AND AVOID HOSPITALIZATION BY END OF EPISODE. Goal Provider Goal - PATIENT/CAREGIVER WILL VERBALIZE/ DEMONSTRATE AN ABILITY TO ADHERE TO SELF-MANAGEMENT OF ASTHMA TO MINIMIZE COMPLICATIONS AND AVOID HOSPITALIZATIONS BY END OF EPISODE. Goal Provider Goal - PATIENT/CAREGIVER WILL VERBALIZE/DEMONSTRATE UNDERSTANDING OF CARE AND MANAGEMENT OF OXYGEN THERAPY BY END OF EPISODE Goal Provider Goal - CHANGES IN SKIN INTEGRITY STATUS WILL BE IDENTIFIED AND REPORTED TO THE PHYSICIAN FOR PROMPT INTERVENTION. PATIENT / CAREGIVER WILL VERBALIZE/DEMONSTRATE ADEQUATE KNOWLEDGE OF INTEGUMENTARY STATUS AND APPROPRIATE MEASURES TO PROMOTE SKIN INTEGRITY AND PREVENT INJURY BY END OF EPISODE Goal Provider Goal - PATIENT / CAREGIVER WILL VERBALIZE / DEMONSTRATE UNDERSTANDING OF PAIN CONTROL MEASURES BY END OF EPISODE Goal Provider Goal - PATIENT / CAREGIVER WILL VERBALIZE / DEMONSTRATE AN ABILITY TO ADHERE TO SELF-MANAGEMENT OF DIABETES MANAGEMENT BY END OF EPISODE Goal Provider Goal - PATIENT / CAREGIVER WILL VERBALIZE/DEMONSTRATE UNDERSTANDING OF MEASURES TO MANAGE ALTERED GENITOURINARY STATUS BY END OF EPISODE. Goal Provider Goal - PATIENT WILL DEMONSTRATE IMPROVEMENT IN S/S OF UTI TO AVOID HOSPITALIZATION. Goal Provider Goal - PATIENT WILL DEMONSTRATE IMPROVEMENT IN S/S OF UTI TO AVOID HOSPITALIZATION. Goal Provider Goal - PATIENT/CAREGIVER WILL VERBALIZE/DEMONSTRATE UNDERSTANDING OF CARE AND MANAGEMENT OF URINARY TRACT INFECTION BY END OF EPISODE Goal Provider Goal - PATIENT/CAREGIVER WILL VERBALIZE/DEMONSTRATE UNDERSTANDING OF FALL RISK FACTORS AND IMPLEMENT STRATEGIES TO MINIMIZE FALL RISK. PATIENT/CAREGIVER WILL VERBALIZE/DEMONSTRATE AN ABILITY TO ADHERE TO FALL REDUCTION SELF-MANAGEMENT AND LIFE-STYLE CHANGES BY END OF EPISODE Goal Provider Goal - Goal Provider Goal - PT STG: PATIENT WILL DEMONSTRATE REDUCED GAIT DEVIATIONS TO REDUCE THE RISK FOR FALLING AND MINIMIZE STRAIN ON KNEES/HIPS AND BACK EVIDENCED BY IMPROVED (HEEL STRIKE / STANCE PHASE / SWING PHASE / ) USING RWX TO WALK 150 FT WITH SBA (LEVEL OF ASSISTANCE) WITHIN 4 WEEKS PT LTG: PATIENT WILL DEMONSTRATE REDUCED GAIT DEVIATIONS TO REDUCE THE RISK FOR FALLING AND MINIMIZE STRAIN ON KNEES/HIPS AND BACK EVIDENCED BY IMPROVED (HEEL STRIKE / STANCE PHASE / SWING PHASE / ) USING NO AD TO WALK 300 FT WITH IND (LEVEL OF ASSISTANCE) WITHIN 8 WEEKS PT LTG: PATIENT WILL DEMONSTRATE REDUCED FALL RISK EVIDENCED BY TUG TEST (CUT SCORE >11 SECONDS INDICATES INCREASED FALL RISK) IMPROVING FROM 20 TO 12 WITHIN 8 WEEKS PT LTG: PATIENT WILL DEMONSTRATE IMPROVED FUNCTIONAL STRENGTH EVIDENCED BY FIVE TIMES SIT TO STAND TEST (CUT SCORE >12 SECONDS INDICATES AN INCREASED FALL RISK) IMPROVING FROM 25 TO 12 WITHIN 8 WEEKS PT LTG: PATIENT WILL DEMONSTRATE DECREASE PAIN FROM 10/10 TO 5/10 @ WORST WITHIN 8 WEEKS PT STG: PATIENT WILL DEMONSTRATE IMPROVED ABILITY TO PERFORM SIT TO/FROM STAND TRANSFERS TO REDUCE THE RISK OF SKIN BREAKDOWN AND REDUCE FALL RISK FROM CGA TO IND WITHIN 8 WEEKS PT LTG: PATIENT WILL MAINTAIN OXYGEN SATURATION WITHIN PHYSICIAN ORDERED PARAMETERS THROUGHOUT EPISODE OF CARE. PT GOAL: PATIENT WILL DEMONSTRATE UNDERSTANDING OF PAIN MANAGEMENT TECHNIQUES EVIDENCED BY REDUCED PAIN IN LOW BACK FROM 10/10 TO 5/10 @ WORST WITHIN 8 WEEKS PATIENT S BLOOD SUGAR WILL REMAIN WELL CONTROLLED WITH SELF-MANAGEMENT THROUGHOUT EPISODE OF CARE. PT STG: PATIENT WILL BE ABLE TO WEIGH SELF WITH USE OF SCALE AND NO ASSIST WITHIN 4 WEEKS PT LTG: PATIENT/CAREGIVER WILL BE ABLE TO IDENTIFY SIGNS OF EXACERBATION OF HEART FAILURE AND VERBALIZE / DEMONSTRATE HOW TO MANAGE SYMPTOMS AND HOW TO ADHERE TO HEART FAILURE SELF-MANAGEMENT AND LIFE-STYLE CHANGES BY END OF EPISODE. PT LTG: PATIENT/CAREGIVER WILL DEMONSTRATE ADHERENCE TO FALL REDUCTION SELF-MANAGEMENT AND REDUCING FALL RISK FACTORS TO MINIMIZE FALL RISK BY END OF EPISODE PT LTG: PATIENT WILL BE INDEPENDENT WITH IMPLEMENTATION OF HEP WITHIN 8 WEEKS PT LTG: CAREGIVER WILL BE INDEPENDENT ASSISTING PATIENT TO COMPLETE HEP WITHIN 8 WEEKS Goal Provider Goal - PATIENT WILL DEMONSTRATE EFFECTIVE COMMUNITY RESOURCE PLANNING, EVIDENCED BY ACCEPTANCE OF ASSISTANCE FROM THOSE SERVICES FOR WHICH THEY ARE ELIGIBLE, EXTENDING THE PERIOD OF INDEPENDENCE IN THE HOME. Goal Provider Goal - OT LTG: PATIENT WILL DEMONSTRATE IMPROVEMENT IN MODIFIED RAFAEL INDEX SCORE FROM 87 TO 96 INDICATING DECREASED DEPENDENCY ON CAREGIVER ASSISTANCE WITH ACTIVITIES OF DAILY LIVING WITHIN 8 WEEKS OT LTG: PATIENT WILL DEMONSTRATE THE ABILITY TO COMPLETE LIGHT HOUSEKEEPING FOR IMPROVED QUALITY OF LIFE FROM MAXIMAL A TO INDEPENDENT WITHIN 4 WEEKS OT STG: PATIENT WILL DEMONSTRATE IMPROVED ABILITY AND SAFETY TO PERFORM BATH TRANSFER FROM UNABLE TO STAND BY ASSISTANCE WITHIN 4 WEEKS OT LTG: PATIENT WILL DEMONSTRATE IMPROVED ABILITY AND SAFETY TO PERFORM BATH/SHOWER TRANSFER FROM UNABLE TO INDEPENDENT WITHIN 8 WEEKS OT STG: PATIENT WILL DEMONSTRATE IMPROVED POSTURAL CONTROL AND DECREASED FALL RISK EVIDENCED BY AN IMPROVEMENT IN FUNCTIONAL REACH SCORE FROM 7 INCHES TO 10 INCHES WITHIN 4 WEEKS IN ORDER TO PERFORM IADL TASKS OT LTG: PATIENT WELL DEMONSTRATE IMPROVED POSTURAL CONTROL AND DECREASE FALL RISK EVIDENCED BY AN IMPROVEMENT AND FUNCTIONAL REACH SCORE FROM 7 IN TO 12 IN WITHIN 8 WEEKS IN ORDER TO PERFORM IADL TASKS OT STG: PATIENT WILL DEMONSTRATE IMPROVED ABILITY TO INCORPORATE ENERGY CONSERVATION MAINTAINING O2 SATS AT > 90% DURING STANDING ADL TASK PERFORMANCE WITHIN 4 WEEKS OT LTG: PATIENT WILL DEMONSTRATE UNDERSTANDING OF ENERGY CONSERVATION MEASURES, EVIDENCED BY INCREASED ACTIVITY TOLERANCE FROM 5 MINUTES STANDING TOLERANCE TO 15 MINUTES DURING IADL COMPLETION WITHIN 8 WEEKS LTG OT: PATIENT S HEART FAILURE WILL REMAIN WELL CONTROLLED THROUGHOUT THE EPISODE OF CARE. OT LTG: PATIENT WILL MAINTAIN OXYGEN SATURATION WITHIN PHYSICIAN ORDERED PARAMETERS THROUGHOUT THE EPISODE OF CARE. OT GOAL: EARLY IDENTIFICATION OF WORSENING DEPRESSION WITH TIMELY SN AND/OR PHYSICIAN NOTIFICATION. OT LTG: PATIENT WILL DEMONSTRATE UNDERSTANDING OF PAIN MANAGEMENT TECHNIQUES EVIDENCED BY REDUCED PAIN IN LOWER BACK DURING STANDING IADL TASKS OT LTG: PATIENT/CAREGIVER WILL BE ABLE TO IMPLEMENT RECOMMENDATIONS SPECIFIC TO FALL REDUCTION FOR IMPROVED ADL/IADL COMPLETION AND HOME SAFETY BY END OF EPISODE. Reason for Visit INDEPENDENT IN THE HOME Encounters Start Date/Time End Date/Time Encounter Type Admission Type Attending [facility] Care Department Encounter ID Discharge Date Discharge Status Discharge Condition Discharge Reason Percent Goals Met 2025-03-11 00:00:00 2025-05-06 00:00:00 Outpatient ANNY GARCIA [facility] [place] [id number] 2025-05-06 00:00:00 DISCHARGE TO HOME OR SELF CARE INDEPENDEN T IN THE HOME HH - GOALS MET 96.77
--- NOTE | 2025-06-20 02:24 | CT_ITS ---
PROCEDURE INFORMATION: Exam: CT Lumbar Spine With Contrast Exam date and time: 06/20/2025 3:10 AM Age: 70 years old Clinical indication: Low back pain; Additional info: Low back pain after l5/s1 injection few weeks ago TECHNIQUE: Imaging protocol: Computed tomography of the lumbar spine with contrast. Radiation optimization: All CT scans at this facility use at least one of these dose optimization techniques: automated exposure control; mA and/or kV adjustment per patient size (includes targeted exams where dose is matched to clinical indication); or iterative reconstruction. Contrast material: ISOVUE; Contrast volume: 75 ml; Contrast route: IV; COMPARISON: CT LUMBAR SPINE WO CON 03/05/2025 8:37 PM FINDINGS: Bones/joints: Mild degenerative changes. Facet arthrosis and hypertrophy in the lower lumbar spine unchanged from prior. No acute fracture. Normal alignment. No significant disc bulge or herniation. No severe spinal canal stenosis. No significant neural foraminal narrowing. Soft tissues: 1.4 cm nodule in the right adrenal gland measuring 12 Hounsfield units consistent with a small adrenal adenoma.. IMPRESSION: 1. No acute lumbar spine fracture. 2. Mild degenerative spondylosis unchanged from prior. 3. 1.4 cm right adrenal adenoma.
--- NOTE | 2025-06-20 02:24 | XR_ITS ---
PROCEDURE INFORMATION: Exam: XR Chest Exam date and time: 06/20/2025 2:52 AM Age: 70 years old Clinical indication: Shortness of breath; Additional info: SOA TECHNIQUE: Imaging protocol: Radiologic exam of the chest. Views: 1 view. COMPARISON: CR XR CHEST PORTABLE 06/01/2025 4:59 PM FINDINGS: Lungs: Unremarkable. No consolidation. Pleural spaces: Unremarkable. No pleural effusion. No pneumothorax. Heart/Mediastinum: Unremarkable. No cardiomegaly. Bones/joints: Unremarkable. IMPRESSION: No acute findings.
--- OUTSIDE RECORDS SUMMARY | 2025-06-20 02:32 | XMS_ITS | Clinical Summary ---
Author Organization [facility] Primary Care Address [address] [place] [address] Phone Care Team Providers Care Radio Antenna Installer Name Role Phone Unavailable Primary Care Provider Unavailabl e Allergies Active Allergy Reactions Criticality Noted Date Comments Iodine Nausea And Vomiting 08/18/2009 Penicillins Swelling High 08/18/2009 Sulfa (Sulfonamide Antibiotics) Hives 03/30 Medications Nebulizer Accessories (A.I.R.S NEBULIZER REPLACEMENT) Kit Need New nebulizer 1 Kit 0 012 Active albuterol (VENTOLIN HFA) 90 mcg/actuation inhalerIndications:Flame Hardener gisselle airway obstruction, not elsewhere classified Inhale [...] 04/03/12 soapp 04/03/12 = 7 cathy 10/31/12 05/02/13([id number]) UDS 05/02/13 Problem Noted Date Diagnosed Date [...] PM EDT) Hep C Ab Negative Negative [facility] Blood specimen (specimen) 04/12/2017 3:13 PM EDT 04/12/2017 7:28 PM EDT us Jahaira Purdy APRN HEMATOLOGY ORDERABLES Final Re sult [facility] [address] [place] [address] from Last 3 Months or Most Recently Relevant to Health Maintenance Insurance [employer] OF [address]
--- OUTSIDE RECORDS SUMMARY | 2025-06-20 02:33 | XMS_ITS | Clinical Summary ---
Author Organization [facility] Address [address] [place] [address] Care Team Providers Care [employer] Name Role Phone Ilir Jeffers MD Primary Care Provider + [phone] Allergies Active Allergy Reactions Criticality Noted Date [...] 1 TABLET DAILY. 1 Active HYDROcodone-rebecca taminophen (Victor) 7.5-325 MG tablet 1 Active losartan (Cozaar) [...] 2003 UKY-Zoster Vaccines (1 of 2) 2003 [id number] Vaccine (3 - season) 2025 04/11/2021, 03/14/2021 [...] Antibody Negative Negative 09/05/2023 3:[address] [facility] Blood Venous blood specimen / Unknown Venipuncture / Unknown 09/05/2023 2:58 AM EST 09/05/2023 3:06 AM EST us Junior Thomson MD LAB BLOOD ORDERABLES Final Result Performing Organization Address City/State/[facility] Co de Phone Number [facility]ALTH[facility]ARE [facility] [address] [place] [id number] from Last 3 Months or Most Recently Relevant to Health Maintenance Insurance MEDICAID MEDICARE Advance Directives * Full Code (Latest Code Status on File) Date Activated Date Inactivated Comments 09/05/2023 5:32 AM 09/05/2023 5:40 PM Question Answer Comments Patient has decision-making capacity? Yes Care Teams [employer] Relationship Specialty Start Date End Date Ilir Jeffers MD [address] [place] [address] PCP - General 12/10/20
[2025-06-20 02:35] LABS: Hematocrit 35.4 % (37.0-47.0); Hemoglobin 10.2 g/dL (12.2-16.2); Immature Granulocytes % 0.8 %; Mean Corpuscular HGB Conc 28.8 g/dL (31.8-35.4); Mean Corpuscular Hemoglobin 23.1 pg (27.0-31.2); Mean Corpuscular Volume 80.3 fl (81-99); Nucleated Red Blood Cells % 0 %; Platelet Count 257 K/mm3 (142-424); Red Blood Count 4.41 M/mm3 (4.20-5.40); Red Cell Distribution Width-SD 47.3 fL; White Blood Count 13.0 K/mm3 (4.8-10.8)
--- NOTE | 2025-06-20 02:35 | HMH.EDGENADL ---
Discharge Plan Disposition Patient Disposition: Left Against Medical Advice Prescriptions Prescriptions: No Action diclofenac sodium 1 % gel 2 g topical QID Qty: 50 1RF Rx Instructions: apply to single elbow, wrist or hand; for hand includes palm/fingers/back of hand albuterol sulfate 90 mcg/actuation HFA aerosol inhaler 2 puff inhalation . Patient Comments: INHALE TWO PUFFS BY MOUTH EVERY 6 HOURS NEEDED SHORTNESS OF BREATH nystatin 100,000 unit/gram cream 1 applic topical DAILY Qty: 30 0RF nystatin 100,000 unit/gram powder 1 applic topical BID Qty: 30 0RF (DME) Diabetic Shoes (DME) Misc See Rx Instructions .ROUTE .MEDSUPPLY Qty: 1 0RF Rx Instructions: [facility] meloxicam 7.5 mg tablet 7.5 mg PO DAILY Qty: 30 2RF Ensure Complete 0.1 gram- 1.18 kcal/mL liquid 1 ea PO DAILY Qty: 1184 0RF nicotine 14 mg/24 hr patch 24 hour 1 patch transdermal DAILY Qty: 28 0RF methocarbamol 500 mg tablet 500 mg PO TID Qty: 42 0RF fluoxetine 20 mg capsule 20 mg PO BID 90 Days Qty: 180 3RF buspirone 10 mg tablet 10 mg PO BID 90 Days Qty: 180 3RF metformin 500 mg tablet 1,000 mg PO BID Qty: 120 5RF bisoprolol fumarate 10 mg tablet 10 mg PO BID 90 Days Qty: 180 3RF ropinirole 0.25 mg tablet 0.5 mg PO HS Qty: 60 5RF Rx Instructions: administer 1-3 hours before bedtime pantoprazole 40 mg tablet,delayed release (DR/EC) 40 mg PO DAILY Qty: 90 0RF Jardiance 25 mg tablet See Rx Instructions .ROUTE .COMPLEX Qty: 90 0RF Dose Instruction: TAKE ONE TABLET BY MOUTH EVERY DAY Rx Instructions: TAKE ONE TABLET BY MOUTH EVERY DAY budesonide 0.5 mg/2 mL suspension for nebulization 0.5 mg inhalation Q12H Qty: 180 3RF ipratropium-albuterol 0.5 mg-3 mg(2.5 mg base)/3 mL solution for nebulization 3 ml inhalation QID PRN (Reason: shortness of breath or wheezing) 90 Days Qty: 270 2RF pregabalin 75 mg capsule 75 mg PO HS Qty: 30 0RF baclofen 10 mg tablet 10 mg PO TID Qty: 90 0RF magnesium oxide 400 mg (241.3 mg magnesium) tablet 400 mg PO BID Qty: 60 1RF montelukast 10 mg tablet 10 mg PO PM Qty: 30 2RF furosemide 40 mg tablet 40 mg PO DAILY atorvastatin 80 mg tablet 80 mg PO HS diltiazem HCl 240 mg capsule,extended release 24hr 240 mg PO DAILY lisinopril 2.5 mg tablet 2.5 mg PO HS Xarelto 20 mg tablet 20 mg PO QPMWITHMEAL Rx Instructions: TAKE ONE TABLET BY MOUTH EVERY DAY with evening meal doxycycline hyclate 100 mg capsule 100 mg PO BID 7 Days Qty: 14 0RF lidocaine 5 % adhesive patch,medicated 1 patch topical DAILY Qty: 15 0RF Rx Instructions: leave on most painful area for up to 12 hrs spironolactone 25 mg tablet 25 mg PO DAILY Rx Instructions: TAKE ONE TABLET BY MOUTH EVERY DAY fluticasone propionate 50 mcg/actuation spray,suspension 1 spray intranasal DAILY Rx Instructions: instill 1 SPRAY IN EACH NOSTRIL EVERY DAY insulin glargine [Basaglar KwikPen U-100 Insulin] 100 unit/mL (3 mL) insulin pen 35 unit SQ BID Rx Instructions: INJECT 35 units SUBCUTANEOUSLY TWICE DAILY Referrals Follow up/Referrals: Sukumar Arango DO [Primary Care Provider, Family Practice] - See instructions Clinical Impressions Clinical Impression: Left against medical advice, Low back pain, COPD (chronic obstructive pulmonary disease), Adrenal adenoma Print Language Print Language: Kyrgyz Discharge ED Provider: Luis Walsh General Adult HPI General Chief complaint: PAIN Stated complaint: Back Pain Time Seen by Provider: 06/20/25 02:18 History of Present Illness HPI narrative: 70-year-old female with history of COPD, sacroiliitis, lumbar radiculopathy, hyperlipidemia, diabetes, paroxysmal A-fib on blood thinners presents to the ER with complaints of acute on chronic low back pain as well as shortness of breath. Patient reports low back injections a few weeks ago and she reports that when they did the injection something popped and she has had pain since that time. She states the pain sometimes is better, sometimes is worse. Tonight it is worse than it had been yesterday and she was feeling short of breath so she came to the ER for evaluation. On further discussion she states her shortness of breath has been like this for multiple months. Patient wears nasal cannula at baseline and reports she is taking her nebulizer treatments 4 times a day. EMS reports wheezing during transportation and administered 125 of Solu-Medrol. Patient reports she takes a muscle relaxer but no other pain medications and has not taken Tylenol or ibuprofen for her back pain. She denies any new numbness, tingling, or weakness. She states since the time of her injection she has had pain radiating up and down the back including the upper back and into the left arm like a sharp, stabbing pain. She denies any chest pain or pressure. Denies any nausea, vomiting, or diarrhea. Reports temperature 101 yesterday but no fevers today. No other complaints or concerns. 4 L nasal cannula at baseline. Related Data Home Medications ?Medication ?Instructions ?Recorded ?Confirmed atorvastatin 80 mg tablet 80 mg PO HS 12/23/24 06/18/25 diltiazem HCl 240 mg 240 mg PO DAILY 12/23/24 06/18/25 capsule,extended release 24 hr furosemide 40 mg tablet 40 mg PO DAILY 12/23/24 06/18/25 lisinopril 2.5 mg tablet 2.5 mg PO HS 12/23/24 06/18/25 rivaroxaban 20 mg tablet (Xarelto) 20 mg PO QPMWITHMEAL 12/23/24 06/18/25 fluticasone propionate 50 1 spray intranasal DAILY 03/06/25 06/18/25 mcg/actuation nasal spray,suspension insulin glargine 100 unit/mL (3 35 unit SQ BID 03/06/25 06/18/25 mL) subcutaneous pen (Basaglar KwikPen U-100 Insulin) spironolactone 25 mg tablet 25 mg PO DAILY 03/06/25 06/18/25 albuterol sulfate 90 mcg/actuation 2 puff inhalation . 04/09/25 06/18/25 aerosol inhaler Previous Rx's ?Medication ?Instructions ?Recorded buspirone 10 mg tablet 10 mg PO BID 90 days #180 tabs 08/07/24 fluoxetine 20 mg capsule 20 mg PO BID 90 days #180 caps 08/07/24 bisoprolol fumarate 10 mg tablet 10 mg PO BID 90 days #180 tabs 07/03/25 metformin 500 mg tablet 1,000 mg (2 x 500 mg) PO BID #120 01/29/25 tabs ropinirole 0.25 mg tablet 0.5 mg (2 x 0.25 mg) PO HS #60 tabs 03/02/25 diclofenac sodium 1 % topical gel 2 g topical QID #50 grams 03/05/25 nystatin 100,000 unit/gram topical 1 applic topical DAILY alternative 04/01/25 cream to powder #30 grams nystatin 100,000 unit/gram topical 1 applic topical BID #30 grams 04/01/25 powder empagliflozin 25 mg tablet See Rx Instructions .Route 04/29/25 (Jardiance) .COMPLEX #90 tabs pantoprazole 40 mg tablet,delayed 40 mg PO DAILY #90 tabs 04/29/25 release Diabetic Shoes (DME) #1 ea 05/12/25 budesonide 0.5 mg/2 mL suspension 0.5 mg (2 mL) inhalation Q12H #180 05/18/25 for nebulization mL ipratropium 0.5 mg-albuterol 3 mg 3 ml inhalation QID PRN shortness 05/18/25 (2.5 mg base)/3 mL nebulization of breath or wheezing 90 days #270 soln mL baclofen 10 mg tablet 10 mg PO TID #90 tabs 05/25/25 pregabalin 75 mg capsule 75 mg PO HS #30 caps 05/25/25 food supplemt, lactose-reduced 0.1 1 ea PO DAILY #1,184 mL 05/26/25 gram-1.18 kcal/mL oral liquid (Ensure Complete) meloxicam 7.5 mg tablet 7.5 mg PO DAILY #30 tabs 05/26/25 magnesium oxide 400 mg (241.3 mg 400 mg PO BID #60 tabs 05/27/25 magnesium) tablet montelukast 10 mg tablet 10 mg PO PM #30 tabs 05/27/25 doxycycline hyclate 100 mg capsule 100 mg PO BID 7 days #14 caps 06/01/25 lidocaine 5 % topical patch 1 patch topical DAILY #15 ea 06/01/25 methocarbamol 500 mg tablet 500 mg PO TID #42 tabs 06/18/25 nicotine 14 mg/24 hr daily 1 patch transdermal DAILY #28 ea 06/18/25 transdermal patch Allergies Allergy/AdvReac Type Severity Reaction Status Date / Time verapamil Allergy Severe Rash Verified 06/18/25 10:40 Iodine and Iodide Containing Allergy Mild Rash Verified 06/18/25 10:40 Produc Penicillins (PENICILLINS) Allergy Unknown I-RASH Verified 06/18/25 10:40 Sulfa (Sulfonamide Allergy Unknown NA-NAUSEA/V Verified 06/18/25 10:40 Antibiotics) (SULFA OMITING (SULFONAMIDE ANTIBIOTICS)) [facility] Disclaimer: The information contained in this section may have been updated after the patient was seen, as this information can be updated by other users. Medical History Pancreatitis Hyponatremia Right lower lobe pneumonia Hyperglycemia Respiratory failure Hypoxia Vaginal cyst COPD (chronic obstructive pulmonary disease) with acute bronchitis Acute on chronic respiratory failure with hypoxia and hypercapnia Chronic, continuous use of opioids Overuse of medication Pneumonia Pre-operative cardiovascular examination Pacemaker lead malfunction Pacemaker at end of battery life Vulvar cyst Candidal intertrigo Bronchiectasis, non-tuberculous COPD (chronic obstructive pulmonary disease) Acute exacerbation of chronic obstructive pulmonary disease Stopped smoking with greater than 30 pack year history History of asthma Family history of asthma Allergic rhinitis, unspecified History of 2019 novel coronavirus disease (COVID-19) COPD (chronic obstructive pulmonary disease) Acute respiratory failure with hypoxia COPD exacerbation Encounter for screening for malignant neoplasm of lung in current smoker with 30 pack year history or greater Stopped smoking with greater than 30 pack year history History of asthma Family history of asthma Allergic rhinitis History of 2019 novel coronavirus disease (COVID-19) COPD exacerbation Hyperlipemia PAF (paroxysmal atrial fibrillation) COPD (chronic obstructive pulmonary disease) On statin therapy Diabetes (~06/2020) Cardiac pacemaker in situ Fatigue HHD (hypertensive heart disease) Surgical History History of tonsillectomy History of cholecystectomy Hx of tonsillectomy History of arthroplasty of right knee Hx of cholecystectomy Family History Other Cancer Coronary artery disease Diabetes Hyperlipidemia Hypertension Social History Smoking Status: Current every day smoker tobacco type: cigarettes packs per day: 1 smoking status stop date: 09/12/2022 second hand exposure: Yes alcohol intake: never substance use type: denies use current occupational status: disabled Travel in the last 8 weeks?: None household members: none housing: house marital status: number of children: 0 current occupational exposures/hazards: No caffeine: Yes Other Medical History Have you received the Flu Vaccine for this season: No Have you received the Pneumonia Vaccine: Yes ROS Obtained: Yes Systems reviewed as appropriate & no additional complaints except as documented Per HPI Physical Exam General General appearance: alert and obese Comment: Chronically ill-appearing Head Head exam: atraumatic and normocephalic Eye Eye exam: Present PERRL and EOMI ENT ENT exam: Present mucous membranes moist Neck Neck exam: Present normal inspection and full ROM Chest Chest inspection: Present symmetric chest wall rise; Absent tenderness Respiratory Respiratory exam: Present normal lung sounds bilaterally, wheezes (End expiratory) and other (Saturating low to mid 90s on 4 L nasal cannula); Absent respiratory distress or stridor Cardiovascular Cardiovascular exam: Present regular rate and normal rhythm Abdominal Exam Abdominal exam: Present soft; Absent distention, tenderness, guarding or rebound Extremities Exam Extremities exam: Present full ROM; Absent edema, joint swelling or calf tenderness Back Exam Back exam: Present tenderness (Diffuse lumbar without focal tenderness, no deformity or step-off, surgical scar present, no erythema or heat); Absent straight leg raise (R) or straight leg raise (L) Neurological Exam Neurological exam: Present alert and oriented X3; Absent motor sensory deficit Psychiatric Psychiatric exam: Present normal affect and normal mood Skin Skin exam: Present warm and dry Medical Decision Making Medical Records Medical records reviewed: Yes I reviewed the patient's medical records. Screening: Per USPSTF and CDC recommendations, given the prevalence of disease in our region, it is our hospital?s policy to screen for HIV and viral Hepatitis for all patients aged 18 and over and those with ongoing risk factors. MR Comment: Last spinal injection appears to have been in April Anibal Inquiry Pt receiving controlled substance: No Vital Signs: 06/20/25 04:31 06/20/25 04:34 06/20/25 05:04 Temperature 98.6 F 98.8 F 98.7 F Temperature Source Oral Oral Oral Pulse Rate 74 86 Pulse Rate [Bilateral] 72 Respiratory Rate 16 18 20 Blood Pressure 148/78 H 107/57 L Blood Pressure [Right Arm] 101/57 L Blood Pressure Mean [Right Arm] 71 02 Sat by Pulse Oximetry 95 94 L Oxygen Delivery Method Nasal Cannula Nasal Cannula Nasal Cannula Oxygen Flow Rate (LPM) 4 Lab Data Lab Results 06/20/25 02:16: WBC 13.0 H, RBC 4.41, Hgb 10.2 L, Hct 35.4 L, MCV 80.3 L, MCH 23.1 L, MCHC 28.8 L, RDW 16.4, Plt Count 257, MPV 11.8 H, Neut % (Auto) 69.1, Lymph % (Auto) 15.9, Ray % (Auto) 9.5 H, Eos % (Auto) 3.9, Baso % (Auto) 0.8, Neut # (Auto) 9.0 H, Lymph # (Auto) 2.1, Ray # (Auto) 1.2 H, Eos # (Auto) 0.5 H, Baso # (Auto) 0.1, PT 13.5 H, INR 1.24 H, D-Dimer 0.87 H, VBG pH 7.34, VBG pCO2 44.5, VBG pO2 65.2 H, VBG HCO3 23.3, VBG Total CO2 24.6, VBG O2 Saturation 91.3 H, VBG Base Excess -2.6 L, VBG Lactic Acid 2.4 H, Sodium 136, Potassium 4.6, Chloride 105, Carbon Dioxide 24, Anion Gap 11.6, BUN 25 H, Creatinine 0.90, Estimated GFR 62, Est GFR ( Amer) 74, Glucose 165 H, Calcium 9.7, Total Bilirubin 0.3, AST 27, ALT 23, Alkaline Phosphatase 84, Troponin I < 0.01, Total Protein 6.5, Albumin 4.2, Globulin 2.3, Albumin/Globulin Ratio 1.8 06/20/25 02:50: Chlamy pneumoniae PCR Not detected, Adenovirus (PCR) Not detected, B. pertussis DNA (PCR) Not detected, Coronavirus OC43 (PCR) Not detected, Coronavirus HKU1 (PCR) Not detected, Coronavirus 229E (PCR) Not detected, SARS-CoV-2 (PCR) Not detected, Coronavirus NL63 (PCR) Not detected, Human Metapneumovir PCR Not detected, Influenza A (H1) PCR Not detected, Influ A (H1N1/09) PCR Not detected, Influenza A (H3) PCR Not detected, Influenza Type A (PCR) Not detected, Influenza Type B (PCR) Not detected, M. pneumoniae (PCR) Not detected, Parainfluenza 1 (PCR) Not detected, Parainfluenza 2 (PCR) Not detected, Parainfluenza 3 (PCR) Not detected, Parainfluenza 4 (PCR) Not detected, RSV (PCR) Not detected, Entero/Rhino (PCR) Not detected 06/20/25 02:16 06/20/25 02:16 Orders (Tests/Meds): ED MEDICATIONS Generic Name Dose Route Start Last Admin Trade Name Freq PRN Reason Stop Dose Admin Sodium Chloride 10 ml 06/20/25 03:33 06/20/25 03:35 Sodium Chloride 0.9% 10ml Syr (Rad Only) IV 07/20/25 03:32 10 ml NEEDED PRN Administration Maintain IV Site Discontinued Medications Generic Name Dose Route Start Last Admin Trade Name Freq PRN Reason Stop Dose Admin Acetaminophen 650 mg 06/20/25 02:28 06/20/25 03:00 Acetaminophen 325mg Tab PO 06/20/25 02:29 650 mg ONCE ONE Administration Albuterol/Ipratropium 9 ml 06/20/25 02:24 06/20/25 03:00 Ipratropium/Albuterol 3 Ml Neb IH 06/20/25 02:25 9 ml ONCE ONE Administration Diphenhydramine HCl 50 mg 06/20/25 02:33 06/20/25 03:00 Diphenhydramine 50mg/Ml Vial IV 06/20/25 02:34 50 mg ONCE ONE Administration Iopamidol 75 ml 06/20/25 03:33 06/20/25 03:35 Iopamidol-370 (76%);100ml Bottle IV 06/20/25 03:34 75 ml ONCE ONE Administration Ketorolac Tromethamine 15 mg 06/20/25 02:24 06/20/25 02:59 Ketorolac 15mg/Ml Vial IV 06/20/25 02:25 15 mg ONCE ONE Administration Lidocaine 1 each 06/20/25 02:24 06/20/25 02:59 Lidocaine 5% Transdermal Patch TD 06/20/25 02:25 1 each ONCE ONE Administration ORDERS Category Date Time Status CT lumbar spine w con Stat Cat Scan 06/20/25 02:24 Completed CXR --portable [XR chest portable] Stat Exams 06/20/25 02:24 Completed CBC w/Auto Diff [Complete Blood Count Auto Diff] Stat Lab 06/20/25 02:16 Completed CMP [Comprehensive Metabolic Panel] Stat Lab 06/20/25 02:16 Completed D-Dimer Stat Lab 06/20/25 02:16 Completed Full Resp Panel w/COVID ([facility]) Routine Lab 06/20/25 02:50 Completed HIV Combo Stat Lab 06/20/25 02:16 Received Hepatitis C Ab Qual. W/ RFX Stat Lab 06/20/25 02:16 Received PT INR [Prothrombin Time INR] Stat Lab 06/20/25 02:16 Completed Trop I [Troponin I] Stat Lab 06/20/25 02:16 Completed Troponin I Q3H Lab 06/20/25 05:30 Ordered Troponin I Q3H Lab 06/20/25 08:30 Ordered VBG [Venous Blood Gas] Stat RT 06/20/25 02:16 Completed Medical Decision Narrative: In summary, this 70-year-old female with comorbidities described in the HPI presents to the emergency department today with lumbar back pain, shortness of breath. On initial evaluation patient is hemodynamically stable, afebrile, saturating in the low to mid 90s on her home nasal cannula settings, 4 L, end expiratory wheezing present but no respiratory distress, benign abdominal exam, no peripheral edema, diffuse lumbar tenderness without focal tenderness, deformity, or step-off. No erythema or heat. Straight leg raise negative. Differential diagnosis includes but is not limited to radiculopathy, acute on chronic pain, I did consider the possibility of spinal epidural abscess since patient had recent injection. Also considered ACS, COPD, PE. Based on these concerns, I ordered hematologic and serum labs including cardiac workup, D-dimer, VBG, CT lumbar with contrast. ECG personally interpreted demonstrates atrial pacemaker, rate 69, normal axis, normal QTc, no STEMI. Patient received DuoNebs and multimodal pain control including Toradol, lidocaine patch, Tylenol for treatment. She already takes a muscle relaxer at home. Patient has allergy to contrast reported and already received steroids from EMS so I am administering Benadryl as pretreatment. Labs personally reviewed demonstrate mild leukocytosis WBC 13.0, mild anemia hemoglobin 10.2 is nonactionable, platelets normal, PT/INR nonactionable, D-dimer 0.87, by years criteria PE is excluded. VBG with no hypercarbia or hypoxia, CMP with prerenal azotemia but patient is actively drinking and tolerating oral intake. I do not believe she requires further intervention at this time. Initial troponin undetectably low less than 0.01 reassuring in the setting of nonischemic ECG and patient's prolonged shortness of breath and COPD symptoms which she states have been like this for months. Chest x-ray personally interpreted demonstrates no lobar infiltrate, no pneumothorax, no other acute abnormality. See radiology read for final interpretation. CT lumbar spine with contrast does not demonstrate acute abnormality, see radiology read for final interpretation. Degenerative changes unchanged from prior. There is a right adrenal adenoma that patient was made aware of and encouraged to follow-up with her PCP Patient had been discharged from this ER with diagnosis of COPD exacerbation and similar back pain symptoms with which she presented today. She is not having increased cough or sputum production, no fevers, I do not believe she requires further treatment for COPD exacerbation since she has had significant improvement with just DuoNebs. This is the patient second presentation to the ER since the time of her lumbar injection and she has leukocytosis with persistent, reportedly worsening low back pain I recommended transfer to higher level of care for MRI to rule out spinal epidural abscess. She refused this stating she wants to go home. Myself and BRITTANY Lucas had discussion with the patient at length about the risks of this including worsening of condition, potential for paralysis with on treated abscess if present, otherwise worsening condition, or . She understands these and still wants to go home. She states she will come back if she gets worse. Patient would like to sign out AGAINST MEDICAL ADVICE. Patient was able to explain back to me her condition and the risks of leaving up to and including wosening of condition, severe life altering disability, or . Patient was able to provide reason for her decision and clearly express her decision. Patient has capacity to make this decision and left AGAINST MEDICAL ADVICE. Critical Care Critical Care Time Critical Care Time: No
[2025-06-20 02:37] LABS: VBG HCO3 23.3 mmol/L (23-30); VBG PCO2 44.5 mmol/L (35-51); VBG PH 7.34 mmol/L (7.31-7.41); VBG PO2 65.2 mmol/L (28-40)
[2025-06-20 02:38] LABS: Lactate Venous 2.4 mmol/L (0.4-2.0)
[2025-06-20 02:41] LABS: Alanine Aminotransferase 23 U/L (12-78); Albumin Level 4.2 g/dl (3.5-5.0); Albumin/Globulin Ratio 1.8 (1.1-1.8); Alkaline Phosphatase 84 U/L (38-126); Anion Gap 11.6 mEq/L (5-15); Aspartate Amino Transferase 27 U/L (14-36); Bilirubin,Total 0.3 mg/dl (0.2-1.3); Blood Urea Nitrogen 25 mg/dl (7-17); Calcium 9.7 mg/dl (8.4-10.2); Carbon Dioxide 24 mmol/L (22.0-30.0); Chloride 105 mmol/L (98-107); Creatinine,Serum 0.90 mg/dl (0.52-1.04); Estimated Glomerular Filt Rate 62 ml/min (>60); GFR (African American) 74 ML/MIN (>60); Globulin 2.3 g/dL (1.3-3.2); Glucose 165 mg/dl (74-100); Potassium 4.6 mmoL/L (3.5-5.1); Sodium 136 mmol/L (136-145); Total Protein,Serum 6.5 g/dl (6.3-8.2)
[2025-06-20 02:42] LABS: INR 1.24 (0.9-1.1); Prothrombin Time 13.5 seconds (10.1-12.5)
--- NOTE | 2025-06-20 02:50 | ECG_ITS ---
APPROVED REPORT Exam: Resting ECG HR:69 bpm ECG Measurements Heart Rate 69 AXES MN 165 P 96 QRSd 92 QRS 61 QT 378 T 42 QTc 398 Conclusion ELECTRONIC ATRIAL PACEMAKER ABNORMAL RHYTHM ECG No STEMI Electronically signed by : CHRISTIAN BENDER, 06/20/2025 07:24:24
[2025-06-20 02:51] LABS: D-Dimer 0.87 ug/mL (0.0-0.5)
[2025-06-20] MEDS: KETOROLAC 15MG/ML VIAL 15 MG IV (02:59)
[2025-06-20] MEDS: LIDOCAINE 5% TRANSDERMAL PATCH 1 EACH TD (02:59)
[2025-06-20] MEDS: IPRATROPIUM/ALBUTEROL 3 ML NEB 9 ML IH (03:00)
[2025-06-20] MEDS: ACETAMINOPHEN 325MG TAB 650 MG PO (03:00)
[2025-06-20 03:03] LABS: Troponin I < 0.01 ng/ml (0.00-0.034)
[2025-06-20 03:10] LABS: Adenovirus,PCR Not Detected (NotDetected); Chlamydophila Pneumoniae, PCR Not Detected (NotDetected); Coronavirus 19, PCR Not Detected (NotDetected); Coronovirus HKU1,PCR Not Detected (NotDetected); Influenza A, PCR Not Detected (NotDetected); Influenza AH1, 2009 Not Detected (NotDetected); Influenza AH1, PCR Not Detected (NotDetected); Influenza AH3,PCR Not Detected (NotDetected); Influenza B, PCR Not Detected (NotDetected); Mycoplasma Pneumoniae, PCR Not Detected (NotDetected); Parainfluenza 1, PCR Not Detected (NotDetected); Parainfluenza 2, PCR Not Detected (NotDetected); Parainfluenza 3, PCR Not Detected (NotDetected); Parainfluenza 4, PCR Not Detected (NotDetected)
[2025-06-20] MEDS: IOPAMIDOL-370 (76%);100ML BOTTLE 75 ML IV (03:35)
[2025-06-20] MEDS: SODIUM CHLORIDE 0.9% 10ML SYR (RAD ONLY) 10 ML IV (03:35)
[2025-06-20 04:31] VITALS: BP 101/57; PULSE 72; RESP 16; TEMP 37; O2SAT 95; BMI 34.4
[2025-06-20 04:34] VITALS: BP 148/78; PULSE 74; RESP 18; TEMP 37.1; O2SAT 94
[2025-06-20 05:04] VITALS: BP 107/57; PULSE 86; RESP 20; TEMP 37.1; O2SAT 97
[2025-06-20 05:42] LABS: Hepatitis C Ab Qual. W/ RFX NEGATIVE (Negative)
[2025-06-20 06:39] LABS: Reflex Lactic Add Lactic Reflex
== END 2025-06-20 05:10 | disposition left against medical advice (07) ==
PROVIDERS: Emergency Provider Emergency Medicine; PCP Student in an Organized Health Care Education/Training Program
DX: M54.50 Low back pain, unspecified (principal); J44.9 Chronic obstructive pulmonary disease, unspecified; D35.00 Benign neoplasm of unspecified adrenal gland; F17.210 Nicotine dependence, cigarettes, uncomplicated; I48.0 Paroxysmal atrial fibrillation; I10 Essential (primary) hypertension; E78.5 Hyperlipidemia, unspecified; E11.9 Type 2 diabetes mellitus without complications; Z79.01 Long term (current) use of anticoagulants
CPT/HCPCS: 0223U; 71045; 72132; 80053; 82803; 84484; 85025; 85378; 85610; 86803; 87389; 93005; 96374; 96375; 99285; J1200; J1885; Q9967